=== PATIENT | female | born 1985 | race African-American/Black ===

== ENCOUNTER 2017-09-16 17:01 | Emergency (ER) | payer OTHER ==
--- NOTE | 2017-09-16 18:11 | EDPHYS ---
Physician Documentation [facility] Name: Nely Quinones Age: 32 yrs Sex: Female : 1985 Arrival Date: 09/16/2017 Time: 17:03 Bed 8 Private MD: ED Physician Oscar Shultz HPI: 09/16 18:03 This 32 yrs old Black Female presents to ER via Ambulatory with complaints of Flu toño Symptoms. 18:03 The patient or guardian reports cough, flu symptoms. Onset: The symptoms/episode toño began/occurred 2 day(s) ago. Modifying factors: The symptoms are alleviated by nothing. the symptoms are aggravated by nothing. The patient or guardian reports hoarse voice. Severity of symptoms: At their worst the symptoms were mild, in the emergency department the symptoms are unchanged. Associated signs and symptoms: The patient has no apparent associated signs or symptoms. Severity of symptoms: At their worst the symptoms were mild in the emergency department the symptoms are unchanged. 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 - Social history:: Smoking status: Patient/guardian denies using tobacco. - Family history:: not pertinent. ROS: 18:03 Constitutional: Negative for fever, chills, and weight loss, Eyes: Negative for injury, toño pain, redness, and discharge, ENT: Negative for injury, pain, and discharge, Neck: Negative for injury, pain, and swelling, Cardiovascular: Negative for chest pain, palpitations, and edema, Abdomen/GI: Negative for abdominal pain, nausea, vomiting, diarrhea, and constipation, Back: Negative for injury and pain, : Negative for injury, bleeding, discharge, and swelling, MS/Extremity: Negative for injury and deformity, Skin: Negative for injury, rash, and discoloration, Neuro: Negative for headache, weakness, numbness, tingling, and seizure, Psych: Negative for depression, anxiety, suicide ideation, homicidal ideation, and hallucinations, Allergy/Immunology: Negative for hives, rash, and allergies, Endocrine: Negative for neck swelling, polydipsia, polyuria, polyphagia, and marked weight changes, Hematologic/Lymphatic: Negative for swollen nodes, abnormal bleeding, and unusual bruising. 18:03 Respiratory: Positive for cough, with green sputum. Exam: 18:03 Constitutional: This is a well developed, well nourished patient who is awake, alert, toño and in no acute distress. Head/Face: Normocephalic, atraumatic. Eyes: Pupils equal round and reactive to light, extra-ocular motions intact. Lids and lashes normal. Conjunctiva and sclera are non-icteric and not injected. Cornea within normal limits. Periorbital areas with no swelling, redness, or edema. ENT: Nares patent. No nasal discharge, no septal abnormalities noted. Tympanic membranes are normal and external auditory canals are clear. Oropharynx with no redness, swelling, or masses, exudates, or evidence of obstruction, uvula midline. Mucous membranes moist. Neck: Trachea midline, no thyromegaly or masses palpated, and no cervical lymphadenopathy. Supple, full range of motion without nuchal rigidity, or vertebral point tenderness. No Meningismus. Chest/axilla: Normal chest wall appearance and motion. Nontender with no deformity. No lesions are appreciated. Cardiovascular: Regular rate and rhythm with a normal S1 and S2. No gallops, murmurs, or rubs. Normal PMI, no JVD. No pulse deficits. Abdomen/GI: Soft, non-tender, with normal bowel sounds. No distension or tympany. No guarding or rebound. No evidence of tenderness throughout. Back: No spinal tenderness. No costovertebral tenderness. Full range of motion. Skin: Warm, dry with normal turgor. Normal color with no rashes, no lesions, and no evidence of cellulitis. MS/ Extremity: Pulses equal, no cyanosis. Neurovascular intact. Full, normal range of motion. Neuro: Awake and alert, GCS 15, oriented to person, place, time, and situation. Cranial nerves II-XII grossly intact. Motor strength 5/5 in all extremities. Sensory grossly intact. Cerebellar exam normal. Normal gait. Psych: Awake, alert, with orientation to person, place and time. Behavior, mood, and affect are within normal limits. 18:03 Respiratory: mild respiratory distress is noted, Respirations: normal, Breath sounds: rhonchi, Respiratory rate: 19 Vital Signs: 17:10 BP 152 / 110; Pulse 85; Resp 19; Temp 98.6(TE); Pulse Ox 100% on R/A; Weight 90.72 kg; la1 Height 5 ft. 2 in. (157.48 cm); 18:43 BP 147 / 104; Pulse 87; Resp 18; Temp 98.0; Pulse Ox 99% on R/A; ph 17:10 Body Mass Index 36.58 (90.72 kg, 157.48 cm) la MDM: 17:57 Patient medically screened. [facility] 18:03 Data reviewed: vital signs, nurses notes, lab test result(s), radiologic studies. [facility] 09/16 17:11 Order name: Strep; Complete Time: 18:07 [facility] 09/16 17:11 Order name: Flu; Complete Time: 18:07 [facility] 09/16 17:46 Order name: Throat Culture EDMS Administered Medications: 18:00 Drug: Rocephin (cefTRIAXone) 1 grams Route: IM; Site: right gluteus; ph 18:45 Follow up: Response: No adverse reaction ph 18:30 Drug: Zithromax 500 mg Route: PO; ph 19:00 Follow up: Response: No adverse reaction ph Disposition: 09/16/17 18:10 Discharged to Home. Impression: Bronchitis, not specified as acute or chronic, Cough. - Condition is Stable. - Discharge Instructions: Acute Bronchitis, Upper Respiratory Infection, Adult, Cool Mist Vaporizers, Cough, Adult, [id number], Cough, Adult. - Prescriptions for Cheratussin AC 10- 100 mg/5 mL Oral liquid - take 10 milliliter by ORAL route every 4 hours; 120 milliliter. Zithromax Z- Antonio 250 mg Oral Tablet - take 1 tablet by ORAL route as directed for 5 days Day 1 - take two (2) tablets one time. Day 2, 3, 4 , 5 take one (1) tablet once daily.; 6 tablet. - Medication Reconciliation Form, Thank You Letter, Antibiotic Education, Prescription Opioid Use form. - Follow up: Private Physician; When: 2 - 3 days; Reason: Recheck today's complaints, Continuance of care, Re-evaluation by your physician. - Problem is new. - Symptoms have improved. Signatures: Dispatcher [employer] EDMS Oscar Shultz MD MD cha Attema, Lee, RN RN la1 Matilda Silverio RN RN ph
--- NOTE | 2017-09-16 18:11 | ER ---
Nurse's Notes [facility] Name: Nely Quinones Age: 32 yrs Sex: Female : 1985 Arrival Date: 09/16/2017 Time: 17:03 Bed 8 Private MD: Diagnosis: Bronchitis, not specified as acute or chronic;Cough Presentation: 09/16 17:09 Presenting complaint: Patient states: I am 20 weeks and for the last 3 days I la1 have had congestion and diarrhea. I have a sore throat and my kids have been sick with the flu. Transition of care: patient was not received from another setting of care. Onset of symptoms was September 16, 2017. Care prior to arrival: None. 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 - Social history:: Smoking status: Patient/guardian denies using tobacco. - Family history:: not pertinent. Screenin:38 Abuse screen: Denies threats or abuse. Denies injuries from another. Nutritional ph screening: No deficits noted. Tuberculosis screening: No symptoms or risk factors identified. Fall Risk None identified. Assessment: 18:00 General: Appears in no apparent distress. uncomfortable, ill, Behavior is calm, ph cooperative, appropriate for age, Reports chills for feeling ill for 12-24 hours. Pain: Complains of pain in "all over". Neuro: Level of Consciousness is awake, alert, obeys commands, Oriented to person, place, time, situation. Cardiovascular: Capillary refill < 3 seconds Patient's skin is warm and dry. Respiratory: Reports cough that is Airway is patent Respiratory effort is even, unlabored, Breath sounds are clear bilaterally. Denies shortness of breath. GI: Reports diarrhea, Patient currently denies abdominal pain, nausea, vomiting. EENT: Reports nasal congestion nasal discharge pain when swallowing. Derm: Skin is intact, is healthy with good turgor, Skin is dry, Skin is normal, Skin temperature is warm. Musculoskeletal: Circulation, motion, and sensation intact. Range of motion: intact in all extremities. Vital Signs: 17:10 BP 152 / 110; Pulse 85; Resp 19; Temp 98.6(TE); Pulse Ox 100% on R/A; Weight 90.72 kg; la1 Height 5 ft. 2 in. (157.48 cm); 18:43 BP 147 / 104; Pulse 87; Resp 18; Temp 98.0; Pulse Ox 99% on R/A; ph 17:10 Body Mass Index 36.58 (90.72 kg, 157.48 cm) la1 ED Course: 17:03 Patient arrived in ED. as 17:10 Triage completed. la1 17:11 Arm band placed on left wrist. la1 17:57 Oscar Shultz MD is Attending Physician. toño 18:14 Matilda Silverio, RN is Primary Nurse. ph 18:42 Patient has correct armband on for positive identification. Bed in low position. Call ph light in reach. Side rails up X 1. Pulse ox on. NIBP on. Warm blanket given. 18:43 No provider procedures requiring assistance completed. Patient did not have IV access ph during this emergency room visit. Administered Medications: 18:00 Drug: Rocephin (cefTRIAXone) 1 grams Route: IM; Site: right gluteus; ph 18:45 Follow up: Response: No adverse reaction ph 18:30 Drug: Zithromax 500 mg Route: PO; ph 19:00 Follow up: Response: No adverse reaction ph Outcome: 18:10 Discharge ordered by . toño 19:04 Patient left the ED. ph 19:04 Discharged to home ambulatory. ph 19:04 Condition: good 19:04 Discharge instructions given to patient, Instructed on discharge instructions, follow up and referral plans. medication usage, Demonstrated understanding of instructions, follow-up care, medications, Prescriptions given X 2. Signatures: Oscar Shultz MD MD cha Martinez, Amelia as Attema, Lee, RN RN la1 Matilda Silverio, CHELA RN ph
[2017-09-16] MEDS ORDERED: AZITHROMYCIN 250 MG TAB ONE (18:47)
[2017-09-16] MEDS ORDERED: LIDOCAINE 1% MPF 5 ML VIAL ONE (18:47)
[2017-09-16] MEDS ORDERED: CEFTRIAXONE 1000 MG/VIAL ONE (18:47)
[2017-09-16 19:16] VITALS: BP 147/104; TEMP 98; O2SAT 99
== END 2017-09-16 19:04 | disposition home or self-care (01) ==
LOC: ER 17:01
DX: J40 Bronchitis, not specified as acute or chronic (principal); I10 Essential (primary) hypertension
CPT/HCPCS: 87070; 87081; 87804; 96372; 99283

== ENCOUNTER 2018-03-27 11:31 | Emergency (ER) | payer OTHER ==
[2018-03-27] MEDS ORDERED: MEPERIDINE HCL 50 MG/ML AMP ONE (12:18)
[2018-03-27] MEDS ORDERED: ONDANSETRON 4 MG/2 ML VIAL ONE (12:18)
[2018-03-27 13:14] LABS: Absolute Lymphocytes (CBC) 2.1 K/uL (0.7-4.9); Absolute Monocytes 0.5 K/uL (0.1-1.3); Absolute Neutrophil 5.3 K/uL (1.8-8.0); Basophils % 0.9 % (0-1.3); Eosinophils % 3.7 % (0-4.4); Hematocrit 42.4 % (36.0-45.0); Lymphocytes % 25.5 % (15.3-44.8); MCV 87.3 fL (80-100); MPV 8.5 fL (7.6-11.3); Monocytes % 6.2 % (3.3-12.3); RBC Red Blood Cell Count 4.86 M/uL (3.86-4.86)
[2018-03-27 13:16] LABS: Potassium 3.5 mmol/L (3.5-5.1)
[2018-03-27 13:52] LABS: Urine Blood NEGATIVE (NEG); Urine Glucose NEGATIVE (NEG); Urine Protein 2+ (NEG); Urine Specific Gravity >1.030 (1.005-1.030); Urine pH 5.5 (5.0-7.0)
[2018-03-27 13:55] LABS: ALT/SGPT 28 U/L (12-78); AST/SGOT 18 U/L (15-37); Albumin 4.1 g/dL (3.4-5.0); Alkaline Phosphatase 103 U/L (45-117); BUN Blood Urea Nitrogen 13 mg/dL (7-18); Bicarbonate 23 mmol/L (21-32); Bilirubin Direct 0.1 mg/dL (0-0.2); Bilirubin Total 0.3 mg/dL (0.2-1.0); Glucose Level 92 mg/dL (74-106); Potassium 3.5 mmol/L (3.5-5.1); Protein, Total 8.2 g/dL (6.4-8.2); Sodium Level 140 mmol/L (136-145)
[2018-03-27] MEDS ORDERED: MEPERIDINE HCL 25 MG/0.5 ML ONE (14:08)
[2018-03-27] MEDS ORDERED: NA CHLORIDE 0.9% 1,000 ML ONE (14:08)
[2018-03-27] MEDS ORDERED: BUPIVACAINE 0.5% PF 10 ML VIAL ONE (16:23)
[2018-03-27] MEDS ORDERED: LABETALOL 20 MG/4ML SYRINGE IV ONE (16:23)
--- NOTE | 2018-03-27 16:53 | ER ---
Nurse's Notes [facility] Name: Nely Quinones Age: 32 yrs Sex: Female : 1985 Arrival Date: 03/27/2018 Time: 11:34 Bed 20 Private MD: Diagnosis: Dental caries;Dentalgia;Pulpitis Presentation: 03/27 11:35 Presenting complaint: Patient states: lower tooth pain started today. Pt reports taking sv 2 BC powder and 4 adult ASA. Pt reports shaking and "feeling weird." c/o nausea. Transition of care: patient was not received from another setting of care. Onset of symptoms was March 27, 2018. Care prior to arrival: None. 11:35 Method Of Arrival: Ambulatory sv 11:35 Acuity: LORENA 3 sv 11:52 Risk Assessment: Do you want to hurt yourself or someone else? Patient reports no bp desire to harm self or others. Initial Sepsis Screen: Does the patient meet any 2 criteria? No. Patient's initial sepsis screen is negative. Does the patient have a suspected source of infection? No. Patient's initial sepsis screen is negative. Triage Assessment: 11:35 General: Appears in no apparent distress. uncomfortable, Behavior is cooperative, sv crying. Pain: Complains of pain in right lower tooth Pain currently is 10 out of 10 on a pain scale. Pain began today Is continuous. Neuro: Level of Consciousness is awake, alert, obeys commands, Oriented to person, place, time, situation, Moves all extremities. Gait is steady. Respiratory: Respiratory effort is even, unlabored, Respiratory pattern is regular, symmetrical. 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 - Social history:: Smoking status: Patient uses tobacco products, denies chronic smoking, but will smoke occasionally. - Ebola Screening: : No symptoms or risks identified at this time. Screenin:52 Abuse screen: Denies threats or abuse. Denies injuries from another. Nutritional bp screening: No deficits noted. Tuberculosis screening: No symptoms or risk factors identified. Fall Risk None identified. Assessment: 11:40 General: Appears distressed, uncomfortable, Behavior is appropriate for age, agitated, bp crying. Pain: Complains of pain in mouth. Neuro: Level of Consciousness is awake, alert, obeys commands, Oriented to person, place, time, situation, Appropriate for age. Cardiovascular: No deficits noted. Respiratory: Airway is patent Respiratory effort is even, unlabored, Respiratory pattern is regular, symmetrical. GI: No signs and/or symptoms were reported involving the gastrointestinal system. : No signs and/or symptoms were reported regarding the genitourinary system. EENT: No deficits noted. Derm: No deficits noted. Musculoskeletal: Circulation, motion, and sensation intact. Range of motion: intact in all extremities. 14:05 Reassessment: REPEAT LABS PENDING, PT REMAINS HYPERTENSIVE ON MONITOR. bp 15:19 Reassessment: REPEAT SALICYLATE SENT, RESULTS PENDING. bp 17:21 Reassessment: PT D/C HOME AMBULATORY, DX WITH DENTAL CARIES AND DENTALGIA. bp Vital Signs: 11:36 BP 219 / 142; Pulse 57; Resp 18; Temp 97.8; Pulse Ox 98% ; Pain 10/10; sv 13:00 BP 180 / 116; Pulse 49; Resp 20; Pulse Ox 100% on R/A; ph 13:54 BP 188 / 106; Pulse 55; Resp 14; Pulse Ox 100% ; bp 14:39 BP 183 / 149; Pulse 50; Resp 12; Pulse Ox 100% ; bp 17:22 BP 172 / 100; Pulse 50; Resp 14; Pulse Ox 100% ; bp ED Course: 11:34 Patient arrived in ED. as 11:36 Triage completed. sv 11:37 Arm band placed on. sv 11:44 Andreas Sanders PA is PHCP. jr8 11:44 Oscar Shultz MD is Attending Physician. jr8 11:52 Michele Yeager, CHELA is Primary Nurse. bp 11:52 Patient has correct armband on for positive identification. Bed in low position. Call bp light in reach. Side rails up X2. 12:18 Urine collected: clean catch specimen, alia colored. dh3 12:31 Inserted saline lock: 20 gauge in right antecubital area, using aseptic technique. bp Blood collected. 15:30 Repeat lab(s) drawn. by co, sent to lab. dh3 17:22 No provider procedures requiring assistance completed. IV discontinued, intact, bp bleeding controlled, No redness/swelling at site. Pressure dressing applied. Administered Medications: 12:15 Drug: Demerol 50 mg Route: IVP; Site: right antecubital; bp 13:36 Follow up: Response: Pain is decreased bp 12:15 Drug: Zofran 4 mg Route: IVP; Site: right antecubital; bp 13:35 Follow up: Response: Nausea is decreased bp 14:07 Drug: NS 0.9% 1000 ml Route: IV; Rate: 1 bolus; Site: right antecubital; bp 16:00 Follow up: IV Status: Completed infusion; IV Intake: 1000ml bp 14:08 Drug: Demerol 25 mg Route: IVP; Site: right antecubital; bp 15:00 Follow up: Response: Pain is decreased bp 16:19 Drug: Marcaine (0.5 %) 1 vials {Note: AT B/S FOR PROVIDER.} Volume: 10 ml; Route: bp Infiltration; 16:20 Drug: Labetalol 20 mg Route: IVP; Infused Over: 2 mins; Site: right antecubital; bp 17:20 Follow up: Response: No adverse reaction; Marked relief of symptoms bp Intake: 16:00 IV: 1000ml; Total: 1000ml. bp Outcome: 16:52 Discharge ordered by MD. saenz 17:22 Discharged to home ambulatory. bp 17:22 Condition: stable 17:22 Discharge instructions given to patient, Instructed on discharge instructions, follow up and referral plans. medication usage, Demonstrated understanding of instructions, follow-up care, medications, Prescriptions given X 2. 17:27 Patient left the ED. bp Signatures: Opal Watson RN RN sv Martinez, Amelia as Roszak, Josh, PA PA [facility] Matilda Silverio RN RN Maira Rader [facility] Michele Yeager, CHELA RN bp Corrections: (The following items were deleted from the chart) 11:37 11:35 Presenting complaint: Patient states: lower tooth pain started today. Pt reports sv taking 2 BC powder and 4 adult ASA. Pt reports shaking and "feeling weird." sv 11:37 11:36 Pulse 57bpm; Resp 18bpm; Pulse Ox 98%; Temp 97.8F; Pain 10/10; sv sv 15:46 15:30 Repeat lab(s) drawn. [place] [id number]
--- NOTE | 2018-03-27 16:53 | EDPHYS ---
Physician Documentation [facility] Name: Nely Quinones Age: 32 yrs Sex: Female : 1985 Arrival Date: 03/27/2018 Time: 11:34 Bed 20 Private MD: ED Physician Oscar Shultz HPI: 03/27 13:39 This 32 yrs old Black Female presents to ER via Ambulatory with complaints of Toothache.jr8 13:39 The patient presents with pain. The problem is located in the right jaw. Onset: The jr8 symptoms/episode began/occurred acutely, today. Duration: The symptoms are continuous. Modifying factors: The symptoms are alleviated by nothing, the symptoms are aggravated by air, chewing, talking. Associated signs and symptoms: The patient has no apparent associated signs or symptoms. Severity of symptoms: At their worst the symptoms were moderate, in the emergency department the symptoms are unchanged. The patient has not experienced similar symptoms in the past. The patient has not recently seen a physician. Stated that she took 4 aspirin and 4 BC powder packets to try and delmar the pain today but continues to have pain . 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 - Social history:: Smoking status: Patient uses tobacco products, denies chronic smoking, but will smoke occasionally. - Ebola Screening: : No symptoms or risks identified at this time. ROS: 13:39 Eyes: Negative for injury, pain, redness, and discharge, Neck: Negative for injury, jr8 pain, and swelling, Cardiovascular: Negative for chest pain, palpitations, and edema, Respiratory: Negative for shortness of breath, cough, wheezing, and pleuritic chest pain, Abdomen/GI: Negative for abdominal pain, nausea, vomiting, diarrhea, and constipation, Back: Negative for injury and pain, MS/Extremity: Negative for injury and deformity, Skin: Negative for injury, rash, and discoloration, Neuro: Negative for headache, weakness, numbness, tingling, and seizure. 13:39 ENT: Positive for dental pain, Gum pain Exam: 13:39 Eyes: Pupils equal round and reactive to light, extra-ocular motions intact. Lids and jr8 lashes normal. Conjunctiva and sclera are non-icteric and not injected. Cornea within normal limits. Periorbital areas with no swelling, redness, or edema. Neck: Trachea midline, no thyromegaly or masses palpated, and no cervical lymphadenopathy. Supple, full range of motion without nuchal rigidity, or vertebral point tenderness. No Meningismus. Cardiovascular: Regular rate and rhythm with a normal S1 and S2. No gallops, murmurs, or rubs. Normal PMI, no JVD. No pulse deficits. Respiratory: Lungs have equal breath sounds bilaterally, clear to auscultation and percussion. No rales, rhonchi or wheezes noted. No increased work of breathing, no retractions or nasal flaring. Abdomen/GI: Soft, non-tender, with normal bowel sounds. No distension or tympany. No guarding or rebound. No evidence of tenderness throughout. Back: No spinal tenderness. No costovertebral tenderness. Full range of motion. Skin: Warm, dry with normal turgor. Normal color with no rashes, no lesions, and no evidence of cellulitis. MS/ Extremity: Pulses equal, no cyanosis. Neurovascular intact. Full, normal range of motion. Neuro: Awake and alert, GCS 15, oriented to person, place, time, and situation. Cranial nerves II-XII grossly intact. Motor strength 5/5 in all extremities. Sensory grossly intact. Cerebellar exam normal. Normal gait. 13:39 Head/face: Noted is swelling, that is mild, of the right jaw. 13:39 ENT: Exam is negative for earache, ear discharge, TM abnormalities, nasal discharge, sinus tenderness, enlarged tonsils, exudate, Dental exam: dental caries, that is moderate, specifically in the upper right second molar (#2), upper right first molar (#3), lower right first molar (#30) and lower right second molar (#31). Vital Signs: 11:36 BP 219 / 142; Pulse 57; Resp 18; Temp 97.8; Pulse Ox 98% ; Pain 10/10; sv 13:00 BP 180 / 116; Pulse 49; Resp 20; Pulse Ox 100% on R/A; ph 13:54 BP 188 / 106; Pulse 55; Resp 14; Pulse Ox 100% ; bp 14:39 BP 183 / 149; Pulse 50; Resp 12; Pulse Ox 100% ; bp 17:22 BP 172 / 100; Pulse 50; Resp 14; Pulse Ox 100% ; bp MDM: 11:45 Patient medically screened. 8 16:50 Data reviewed: vital signs, nurses notes, lab test result(s), and as a result, I will jr8 discharge patient. Data interpreted: Pulse oximetry: on room air is 100 %. Interpretation: normal. Counseling: I had a detailed discussion with the patient and/or guardian regarding: the historical points, exam findings, and any diagnostic results supporting the discharge/admit diagnosis, lab results, the need for outpatient follow up, a dentist, to return to the emergency department if symptoms worsen or persist or if there are any questions or concerns that arise at home. ED course: ASA level decreased. Feeling better. Pain much less. Patient needs to f/u with dentist. Counseled her on NSAID based products and over use of them. 03/27 12:06 Order name: Hepatic Function; Complete Time: 14:01 [facility] 03/27 12:06 Order name: Acetaminophen; Complete Time: 14:01 [facility] 03/27 12:06 Order name: Basic Metabolic Panel; Complete Time: 14: [facility] 03/27 12:20 Order name: Urine Dipstick--Ancillary (enter results); Complete Time: 14:01 03/27 12:20 Order name: Urine --Ancillary (enter results); Complete Time: 14:01 03/27 12:50 Order name: Basic Metabolic Panel; Complete Time: 13:22 [facility] 03/27 12:50 Order name: Salicylates Level; Complete Time: 13:22 [facility] 03/27 12:50 Order name: CBC with Automated Diff; Complete Time: 13:22 [facility] 03/27 15:09 Order name: Asprin; Complete Time: 16:21 [facility] 03/27 12:06 Order name: IV Saline Lock; Complete Time: 12:31 [facility] 03/27 12:06 Order name: Labs collected and sent; Complete Time: 12:31 [facility] 03/27 12:06 Order name: Urine Dipstick-Ancillary (obtain specimen); Complete Time: 12:18 [facility] 03/27 12:07 Order name: Urine Test (obtain specimen); Complete Time: 12:18 bp Administered Medications: 12:15 Drug: Demerol 50 mg Route: IVP; Site: right antecubital; bp 13:36 Follow up: Response: Pain is decreased bp 12:15 Drug: Zofran 4 mg Route: IVP; Site: right antecubital; bp 13:35 Follow up: Response: Nausea is decreased bp 14:07 Drug: NS 0.9% 1000 ml Route: IV; Rate: 1 bolus; Site: right antecubital; bp 16:00 Follow up: IV Status: Completed infusion; IV Intake: 1000ml bp 14:08 Drug: Demerol 25 mg Route: IVP; Site: right antecubital; bp 15:00 Follow up: Response: Pain is decreased bp 16:19 Drug: Marcaine (0.5 %) 1 vials {Note: AT B/S FOR PROVIDER.} Volume: 10 ml; Route: bp Infiltration; 16:20 Drug: Labetalol 20 mg Route: IVP; Infused Over: 2 mins; Site: right antecubital; bp 17:20 Follow up: Response: No adverse reaction; Marked relief of symptoms bp Disposition: 03/27/18 16:52 Discharged to Home. Impression: Dental caries, Dentalgia, Pulpitis. - Condition is Stable. - Discharge Instructions: Dental Pain. - Prescriptions for Amoxicillin 875 mg Oral Tablet - take 1 tablet by ORAL route every 12 hours for 10 days; 20 tablet. Tramadol 50 mg Oral Tablet - take 2 tablet by ORAL route every 8 hours as needed; 20 tablet. - Medication Reconciliation Form, Thank You Letter, Antibiotic Education, Prescription Opioid Use form. - Follow up: Private Physician; When: 2 - 3 days; Reason: Recheck today's complaints, Continuance of care, Re-evaluation by your physician. - Problem is new. - Symptoms have improved. Addendum: 03/28/2018 17:47 Co-signature as Attending Physician, Oscar Shultz MD I agree with the assessment and c sunshine plan of care. Signatures: Dispatcher [employer] Opal Goncalves, CHELA RN Oscar Roberto MD MD cha Roszak, Josh, PA PA jr8 Michele Yeager RN RN bp Corrections: (The following items were deleted from the chart) 03/27 13:38 12:50 Hepatitis Panel,Acute ordered. [facility] 13:40 13:39 Stated that she took 4 aspirin and 4 BC powder packets to try and delmar the pain. jr8 jr8 13:59 13:19 SALICYLATE+C.LAB.BRZ ordered. EDMS EDMS 14:00 13:19 CBC+H.LAB.BRZ ordered. EDMS EDMS 17:27 16:52 03/27/2018 16:52 Discharged to Home. Impression: Dental caries; Dentalgia; bp Pulpitis. Condition is Stable. Forms are Medication Reconciliation Form, Thank You Letter, Antibiotic Education, Prescription Opioid Use. Follow up: Private Physician; When: 2 - 3 days; Reason: Recheck today's complaints, Continuance of care, Re-evaluation by your physician. Problem is new. Symptoms have improved. jr8
[2018-03-28 14:53] VITALS: BP 172/100; TEMP 97.8; O2SAT 100
== END 2018-03-27 17:27 | disposition home or self-care (01) ==
LOC: ER 11:31
DX: K02.9 Dental caries, unspecified (principal); K04.01 Reversible pulpitis; K08.89 Other specified disorders of teeth and supporting structures; I10 Essential (primary) hypertension; Z72.0 Tobacco use
CPT/HCPCS: 36415; 80048; 80076; 80329; 81003; 81025; 85025; 96361; 96374; 96375; 99284; J2175; J2405; J7030

== ENCOUNTER 2018-05-22 08:28 | Emergency (ER) | payer OTHER, SELFPAY ==
[2018-05-22] MEDS ORDERED: IBUPROFEN 400 MG TAB ONE (08:58)
[2018-05-22] MEDS ORDERED: HYDROCODONE/APAP 5/325 MG TAB ONE (09:43)
--- NOTE | 2018-05-22 11:10 | ER ---
Nurse's Notes [facility] Name: Nely Quinones Age: 33 yrs Sex: Female : 1985 Arrival Date: 05/22/2018 Time: 08:31 Bed 15 Private MD: None, None Diagnosis: Acute upper respiratory infection, unspecified Presentation: 05/22 08:32 Presenting complaint: Patient states: my whole body is in pain and it started few days hj ago, bad cough, nasal congestion; reports fever and chills; reports sore throat;. Transition of care: patient was not received from another setting of care. Onset of symptoms was May 22, 2018. Risk Assessment: Do you want to hurt yourself or someone else? Patient reports no desire to harm self or others. Initial Sepsis Screen: Does the patient meet any 2 criteria? No. Patient's initial sepsis screen is negative. Does the patient have a suspected source of infection? No. Patient's initial sepsis screen is negative. Care prior to arrival: None. 08:32 Method Of Arrival: Ambulatory 08:32 Acuity: LROENA 4 hj Triage Assessment: 08:34 General: Appears in no apparent distress. uncomfortable, Behavior is calm, cooperative, hj appropriate for age. Pain: Complains of pain in body. 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 - Social history:: Smoking status: Patient/guardian denies using tobacco, Patient/guardian denies using alcohol. - Ebola Screening: : Patient negative for fever greater than or equal to 101.5 degrees Fahrenheit, and additional compatible Ebola Virus Disease symptoms Patient denies exposure to infectious person Patient denies travel to an Ebola-affected area in the 21 days before illness onset. Screenin:34 Abuse screen: Denies threats or abuse. Denies injuries from another. Nutritional hj screening: No deficits noted. Tuberculosis screening: No symptoms or risk factors identified. Fall Risk None identified. Assessment: 08:51 General: Appears in no apparent distress. uncomfortable, Behavior is calm, cooperative, ph appropriate for age, Reports chills for fever for 1-2 days. Pain: Complains of pain in "all over". Neuro: Level of Consciousness is awake, alert, obeys commands, Oriented to person, place, time, situation. Cardiovascular: Capillary refill < 3 seconds in bilateral fingers Patient's skin is warm and dry. Respiratory: Reports cough that is Airway is patent Respiratory effort is even, unlabored, Respiratory pattern is regular, symmetrical. GI: No signs and/or symptoms were reported involving the gastrointestinal system. EENT: Reports pain when swallowing. Derm: Skin is intact, is healthy with good turgor, Skin is pink, warm \\T\\ dry. 09:42 Reassessment: Patient appears in no apparent distress at this time. Patient and/or ph family updated on plan of care and expected duration. Pain level reassessed. Patient is alert, oriented x 3, equal unlabored respirations, skin warm/dry/pink. Pt crying, states, " I am just hurting so bad, I couldn't even wipe when I went to the restroom. Do you could get anything else for pain?" ERP notified, see MAR. 10:28 Reassessment: Patient appears in no apparent distress at this time. Patient and/or ph family updated on plan of care and expected duration. Pain level reassessed. Patient is alert, oriented x 3, equal unlabored respirations, skin warm/dry/pink. Pt resting quietly, awaiting results of mono screen. 11:31 Reassessment: Patient appears in no apparent distress at this time. Patient and/or ph family updated on plan of care and expected duration. Pain level reassessed. Patient is alert, oriented x 3, equal unlabored respirations, skin warm/dry/pink. Pt reports that pain has improved to 4/10 after additional pain medication, d/c home w/ work note. Vital Signs: 08:35 BP 158 / 100; Pulse 87; Resp 18; Temp 100.1(TE); Pulse Ox 100% on R/A; Weight 68.04 kg; hj Height 5 ft. 2 in. (157.48 cm); Pain 10/10; 09:47 BP 167 / 104; Pulse 92; Resp 18; Pulse Ox 99% on R/A; ph 11:32 BP 154 / 91; Pulse 84; Resp 18; Temp 98.4; Pulse Ox 99% on R/A; Pain 4/10; ph 08:35 Body Mass Index 27.44 (68.04 kg, 157.48 cm) ED Course: 08:31 Patient arrived in ED. sb2 08:31 None, None is Private Physician. sb2 08:31 [facility]ov[facility] Paulino [facility]-C [facility]. kb 08:31 Serge Neil MD is Attending Physician. kb 08:33 Triage completed. hj 08:35 Arm band placed on left wrist. hj 08:35 Patient has correct armband on for positive identification. Bed in low position. Call light in reach. Side rails up X 1. 08:41 Matilda Silverio, RN is Primary Nurse. ph 08:53 No provider procedures requiring assistance completed. ph 09:20 mono test drawn by me by venipuncture 23G to right ac and sent to lab. 3 11:33 Patient did not have IV access during this emergency room visit. ph Administered Medications: 08:51 Drug: Ibuprofen 800 mg Route: PO; ph 10:05 Follow up: Response: No adverse reaction ph 09:37 Drug: [place] 5 mg-325 mg 1 tabs Route: PO; ph 10:28 Follow up: Response: No adverse reaction ph Outcome: 11:10 Discharge ordered by MD. kb 11:32 Discharged to home ambulatory. ph 11:32 Condition: good 11:32 Discharge instructions given to patient, Instructed on discharge instructions, follow up and referral plans. Demonstrated understanding of instructions, follow-up care. 11:33 Patient left the ED. ph Signatures: Jovanna Paulino FNP-C FNP-CkMatilda Miranda, RN RN Jacek Braun RN RN Maira Rader 3 Claire Billings sb2 Corrections: (The following items were deleted from the chart) 08:33 08:32 Presenting complaint: Patient states: my whole body is in pain and it started few hj days ago, bad cough, nasal congestion; reports fever and chills; hj 08:39 08:35 Pulse 87bpm; Resp 18bpm; Pulse Ox 100% RA; Temp 100.1F Temporal; 68.04 kg; Height hj 5 ft. 2 in.; BMI: 27.4; Pain 10; hj
--- NOTE | 2018-05-22 11:10 | EDPHYS ---
Physician Documentation [facility] Name: Nely Quinones Age: 33 yrs Sex: Female : 1985 Arrival Date: 05/22/2018 Time: 08:31 Bed 15 Private MD: None, None ED Physician Serge Neil HPI: 05/22 08:49 This 33 yrs old Black Female presents to ER via Ambulatory with complaints of Flu kb Symptoms. 08:49 The patient or guardian reports cough, that is intermittent, described as moderate, kb with no sputum, flu symptoms, arthralgias, low-grade fever, myalgias, no appetite. Onset: The symptoms/episode began/occurred 3 day(s) ago. Severity of symptoms: At their worst the symptoms were moderate, in the emergency department the symptoms are unchanged. Modifying factors: The symptoms are alleviated by nothing, the symptoms are aggravated by nothing. Associated signs and symptoms: Pertinent positives: sore throat, Pertinent negatives: chest pain, diarrhea, ear ache, fever, nausea, rhinorrhea, vomiting. The patient has not experienced similar symptoms in the past. The patient has not recently seen a physician. Pt reports body aches, cough, chills, sore throat, malaise since "the weather changed." . 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 - Social history:: Smoking status: Patient/guardian denies using tobacco, Patient/guardian denies using alcohol. - Ebola Screening: : Patient negative for fever greater than or equal to 101.5 degrees Fahrenheit, and additional compatible Ebola Virus Disease symptoms Patient denies exposure to infectious person Patient denies travel to an Ebola-affected area in the 21 days before illness onset. ROS: 08:50 Neck: Negative for injury, pain, and swelling, Cardiovascular: Negative for chest pain, kb palpitations, and edema, Abdomen/GI: Negative for abdominal pain, nausea, vomiting, diarrhea, and constipation, Back: Negative for injury and pain, : Negative for injury, bleeding, discharge, and swelling, MS/Extremity: Negative for injury and deformity, Skin: Negative for injury, rash, and discoloration, Neuro: Negative for headache, weakness, numbness, tingling, and seizure. 08:50 Constitutional: Positive for body aches, chills, fatigue, fever, malaise, Negative for poor PO intake, weight loss. 08:50 ENT: Positive for sore throat. 08:50 Respiratory: Positive for cough, Negative for dyspnea on exertion, hemoptysis, orthopnea, pleurisy, shortness of breath, sputum production, wheezing. Exam: 08:50 Constitutional: This is a well developed, well nourished patient who is awake, alert, kb and in no acute distress. Head/Face: Normocephalic, atraumatic. Neck: Trachea midline, no thyromegaly or masses palpated, and no cervical lymphadenopathy. Supple, full range of motion without nuchal rigidity, or vertebral point tenderness. No Meningismus. Chest/axilla: Normal chest wall appearance and motion. Nontender with no deformity. No lesions are appreciated. Cardiovascular: Regular rate and rhythm with a normal S1 and S2. No gallops, murmurs, or rubs. Normal PMI, no JVD. No pulse deficits. Respiratory: Lungs have equal breath sounds bilaterally, clear to auscultation and percussion. No rales, rhonchi or wheezes noted. No increased work of breathing, no retractions or nasal flaring. Abdomen/GI: Soft, non-tender, with normal bowel sounds. No distension or tympany. No guarding or rebound. No evidence of tenderness throughout. Back: No spinal tenderness. No costovertebral tenderness. Full range of motion. Skin: Warm, dry with normal turgor. Normal color with no rashes, no lesions, and no evidence of cellulitis. MS/ Extremity: Pulses equal, no cyanosis. Neurovascular intact. Full, normal range of motion. Neuro: Awake and alert, GCS 15, oriented to person, place, time, and situation. Cranial nerves II-XII grossly intact. Motor strength 5/5 in all extremities. Sensory grossly intact. Cerebellar exam normal. Normal gait. 08:50 ENT: Posterior pharynx: Airway: normal, no evidence of obstruction, Tonsils: bilaterally enlarged, with erythema, Uvula: normal, midline, swelling, that is mild, that is moderate, erythema, that is moderate. Vital Signs: 08:35 BP 158 / 100; Pulse 87; Resp 18; Temp 100.1(TE); Pulse Ox 100% on R/A; Weight 68.04 kg; hj Height 5 ft. 2 in. (157.48 cm); Pain 10/10; 09:47 BP 167 / 104; Pulse 92; Resp 18; Pulse Ox 99% on R/A; ph 11:32 BP 154 / 91; Pulse 84; Resp 18; Temp 98.4; Pulse Ox 99% on R/A; Pain 4/10; ph 08:35 Body Mass Index 27.44 (68.04 kg, 157.48 cm) hj MDM: 08:38 Patient medically screened. kb 10:06 Data reviewed: vital signs, nurses notes. Data interpreted: Pulse oximetry: on room air kb is 99 %. Interpretation: normal. 11:10 Counseling: I had a detailed discussion with the patient and/or guardian regarding: the kb historical points, exam findings, and any diagnostic results supporting the discharge/admit diagnosis, lab results, the need for outpatient follow up, a family practitioner, to return to the emergency department if symptoms worsen or persist or if there are any questions or concerns that arise at home. 05/22 08:37 Order name: Flu; Complete Time: 09:07 hj 05/22 08:37 Order name: Strep; Complete Time: 09:06 05/22 09:07 Order name: [place] Screen Profile; Complete Time: 11:09 kb 05/22 09:09 Order name: Throat Culture EDAZ 05/22 09:43 Order name: Urine Dipstick--Ancillary (enter results) 05/22 09:43 Order name: Urine --Ancillary (enter results) 05/22 09:07 Order name: Urine Dipstick-Ancillary (obtain specimen); Complete Time: 09:36 kb Administered Medications: 08:51 Drug: Ibuprofen 800 mg Route: PO; ph 10:05 Follow up: Response: No adverse reaction ph 09:37 Drug: [place] 5 mg-325 mg 1 tabs Route: PO; ph 10:28 Follow up: Response: No adverse reaction ph Disposition: 16:58 Co-signature as Attending Physician, Serge Neil MD. rn Disposition: 05/22/18 11:10 Discharged to Home. Impression: Acute upper respiratory infection, unspecified. - Condition is Stable. - Discharge Instructions: Upper Respiratory Infection, Adult, [id number]. - Medication Reconciliation Form, Thank You Letter, Antibiotic Education, Prescription Opioid Use, Work release form form. - Follow up: Emergency Department; When: As needed; Reason: Worsening of condition. Follow up: Private Physician; When: 2 - 3 days; Reason: Recheck today's complaints, Continuance of care, Re-evaluation by your physician. Signatures: Dispatcher [employer] EDMS Jovanna Paulino, TECHNICAL SALES ADVISOR-C TECHNICAL SALES ADVISOR-Ckb Serge Neil MD MD rn Hall, Patricia, RN RN Jacek Donovan RN RN Corrections: (The following items were deleted from the chart) 11:33 11:10 05/22/2018 11:10 Discharged to Home. Impression: Acute upper respiratory ph infection, unspecified. Condition is Stable. Forms are Medication Reconciliation Form, Thank You Letter, Antibiotic Education, Prescription Opioid Use. Follow up: Emergency Department; When: As needed; Reason: Worsening of condition. Follow up: Private Physician; When: 2 - 3 days; Reason: Recheck today's complaints, Continuance of care, Re-evaluation by your physician. kb
[2018-05-22 11:44] VITALS: O2SAT 99
[2018-05-22 11:46] VITALS: BP 154/91; TEMP 98.4
[2018-05-22 17:13] LABS: Urine Blood NEGATIVE (NEG); Urine Glucose NEGATIVE (NEG); Urine Protein NEGATIVE (NEG); Urine Specific Gravity 1.015 (1.005-1.030)
== END 2018-05-22 11:33 | disposition home or self-care (01) ==
LOC: ER 08:28
DX: J06.9 Acute upper respiratory infection, unspecified (principal); I10 Essential (primary) hypertension
CPT/HCPCS: 36415; 81003; 81025; 86308; 87070; 87081; 87804; 99283

== ENCOUNTER 2019-05-08 09:41 | Emergency (ER) | payer SELFPAY ==
[2019-05-08] MEDS ORDERED: DIPHENHYDRAMINE 50 MG/ML VIAL ONE (11:05)
[2019-05-08] MEDS ORDERED: METOCLOPRAMIDE 10 MG/2mL INJ ONE (11:05)
[2019-05-08] MEDS ORDERED: LABETALOL 20 MG/4ML SYRINGE IV ONE ×2 (11:06→12:08)
[2019-05-08] MEDS ORDERED: NA CHLORIDE 0.9% 100 ML IV ONE (11:06)
--- NOTE | 2019-05-08 13:13 | EDPHYS ---
Physician Documentation [facility] Name: Nely Quinones Age: 34 yrs Sex: Female : 1985 Arrival Date: 05/08/2019 Time: 09:44 Bed 17 Private MD: ED Physician Pee Harvey HPI: 05/08 10:37 This 34 yrs old Black Female presents to ER via Ambulatory with complaints of Cough, jr8 Headache, Pain All Over. 10:37 The patient or guardian reports cough, that is intermittent, described as mild. Onset: jr8 The symptoms/episode began/occurred acutely, yesterday. Severity of symptoms: At their worst the symptoms were moderate, in the emergency department the symptoms are unchanged. Modifying factors: The symptoms are alleviated by nothing, the symptoms are aggravated by nothing. Associated signs and symptoms: Pertinent positives: earache, rhinorrhea, sinus congestion . The patient has not experienced similar symptoms in the past. The patient has not recently seen a physician. Patient stated that she has been dealing with intermittent headaches for the past few months. Has been out of her BP meds and has not been able to f/u with anyone. Stated that a couple of days ago started to have sinus congestion, cough, earache, flu like symptoms . Historical: - Allergies: 09:56 No Known Allergies; la1 - PMHx: 09:56 Hypertension; la1 - Immunization history:: Adult Immunizations up to date. - Social history:: Smoking status: Patient/guardian denies using tobacco. - Ebola Screening: : No symptoms or risks identified at this time. ROS: 10:37 Eyes: Negative for injury, pain, redness, and discharge, Neck: Negative for injury, jr8 pain, and swelling, Cardiovascular: Negative for chest pain, palpitations, and edema, Abdomen/GI: Negative for abdominal pain, nausea, vomiting, diarrhea, and constipation, Back: Negative for injury and pain, MS/Extremity: Negative for injury and deformity, Skin: Negative for injury, rash, and discoloration. 10:37 ENT: Positive for ear pain, rhinorrhea, sinus congestion, sinus pain. 10:37 Respiratory: Positive for cough, shortness of breath. 10:37 Neuro: Positive for headache, Negative for altered mental status, dizziness, gait disturbance, hearing loss, loss of consciousness, numbness, seizure activity, speech changes, syncope, near syncope, tingling, tinnitus, tremor, visual changes, weakness. Exam: 10:37 Eyes: Pupils equal round and reactive to light, extra-ocular motions intact. Lids and jr8 lashes normal. Conjunctiva and sclera are non-icteric and not injected. Cornea within normal limits. Periorbital areas with no swelling, redness, or edema. ENT: Nares patent. clear rhinorrhea present. Mild bilateral turbinate swelling noted with mild erythema, no septal abnormalities noted. Tympanic membranes are normal and external auditory canals are clear. Oropharynx with no redness, swelling, or masses, exudates, or evidence of obstruction, uvula midline. Mucous membranes moist. Neck: Trachea midline, no thyromegaly or masses palpated, and no cervical lymphadenopathy. Supple, full range of motion without nuchal rigidity, or vertebral point tenderness. No Meningismus. Cardiovascular: Regular rate and rhythm with a normal S1 and S2. No gallops, murmurs, or rubs. Normal PMI, no JVD. No pulse deficits. Respiratory: Lungs have equal breath sounds bilaterally, clear to auscultation and percussion. No rales, rhonchi or wheezes noted. No increased work of breathing, no retractions or nasal flaring. Abdomen/GI: Soft, non-tender, with normal bowel sounds. No distension or tympany. No guarding or rebound. No evidence of tenderness throughout. Back: No spinal tenderness. No costovertebral tenderness. Full range of motion. Skin: Warm, dry with normal turgor. Normal color with no rashes, no lesions, and no evidence of cellulitis. MS/ Extremity: Pulses equal, no cyanosis. Neurovascular intact. Full, normal range of motion. Neuro: Awake and alert, GCS 15, oriented to person, place, time, and situation. Cranial nerves II-XII grossly intact. Motor strength 5/5 in all extremities. Sensory grossly intact. Cerebellar exam normal. Normal gait. Vital Signs: 09:56 BP 190 / 130; Pulse 81; Resp 16; Temp 98.4; Pulse Ox 100% on R/A; la1 11:44 BP 196 / 115; Pulse 78; Resp 18; Pulse Ox 99% on R/A; Pain 5/10; ph 12:03 BP 193 / 128; ph 13:11 BP 175 / 123; em1 MDM: 10:01 Patient medically screened. jr8 13:10 Data reviewed: vital signs, nurses notes, and as a result, I will discharge patient. jr8 Data interpreted: Pulse oximetry: on room air is 99 %. Interpretation: normal. Counseling: I had a detailed discussion with the patient and/or guardian regarding: the historical points, exam findings, and any diagnostic results supporting the discharge/admit diagnosis, the need for outpatient follow up, a family practitioner, to return to the emergency department if symptoms worsen or persist or if there are any questions or concerns that arise at home. 13:10 Response to treatment: the patient's symptoms have markedly improved after treatment. jr8 05/08 10:50 Order name: Urine Dipstick--Ancillary (enter results) 05/08 10:50 Order name: Urine --Ancillary (enter results) 05/08 10:14 Order name: IV; Complete Time: 10:42 jr8 Administered Medications: 11:27 Drug: Benadryl 25 mg Route: IVP; Site: right antecubital; ph 12:30 Follow up: Response: No adverse reaction ph 11:28 Drug: Reglan 10 mg {Note: mixed in 100 cc NS.} Route: IVP; Site: right antecubital; ph 12:30 Follow up: Response: No adverse reaction; Pain is decreased ph 11:30 Drug: Labetalol 10 mg Route: IVP; Site: right antecubital; ph 12:00 Follow up: Response: No adverse reaction; Blood pressure is unchanged ph 12:41 Drug: Labetalol 20 mg Route: IVP; Infused Over: 2 mins; Site: right antecubital; ph 13:15 Follow up: Response: No adverse reaction; Pain is decreased; Blood pressure is lowered ph 13:34 Drug: TORadol - Ketorolac 15 mg Route: IVP; Site: right antecubital; ph 13:35 Follow up: Response: No adverse reaction; Medication administered at discharge. ph Disposition: 17:51 Co-signature as Attending Physician, Pee Harvey MD Did not see or evaluate patient. ps1 Chart signed for administrative purposes. Not an endorsement of care. . Disposition: 05/08/19 13:11 Discharged to Home. Impression: Acute upper respiratory infection, unspecified, Essential (primary) hypertension. - Condition is Stable. - Discharge Instructions: Hypertension, Upper Respiratory Infection, Adult. - Prescriptions for labetalol 200 mg Oral tablet - take 1 tablet by ORAL route 2 times per day; 60 tablet. Medrol (Antonio) 4 mg Oral Tablets, Dose Pack - take 1 tablet by ORAL route as directed - follow package instructions; 1 packet. Guaifenesin AC 10- 100 mg/5 mL Oral Liquid - take 10 milliliter by ORAL route every 4 hours As needed; 240 milliliter. - Medication Reconciliation Form, Thank You Letter, Antibiotic Education, Prescription Opioid Use, Work release form form. - Follow up: Private Physician; When: 2 - 3 days; Reason: Recheck today's complaints, Continuance of care, Re-evaluation by your physician. - Problem is new. - Symptoms have improved. Signatures: Dispatcher [employer] EDMS Andreas Sanders PA PA jr8 Trenton Pulliam RN RN la1 Matilda Silverio RN RN ph Pee Harvey MD MD ps1 Corrections: (The following items were deleted from the chart) 13:36 13:11 05/08/2019 13:11 Discharged to Home. Impression: Acute upper respiratory ph infection, unspecified; Essential (primary) hypertension. Condition is Stable. Forms are Medication Reconciliation Form, Thank You Letter, Antibiotic Education, Prescription Opioid Use. Follow up: Private Physician; When: 2 - 3 days; Reason: Recheck today's complaints, Continuance of care, Re-evaluation by your physician. Problem is new. Symptoms have improved. jr8
--- NOTE | 2019-05-08 13:13 | ER ---
Nurse's Notes [facility] Name: Nely Quinones Age: 34 yrs Sex: Female : 1985 Arrival Date: 05/08/2019 Time: 09:44 Bed 17 Private MD: Diagnosis: Acute upper respiratory infection, unspecified;Essential (primary) hypertension Presentation: 05/08 09:55 Presenting complaint: Patient states: cough, body aches, left ear pain, blood in la1 sputum, nose bleed. Transition of care: patient was not received from another setting of care. Onset of symptoms was May 08, 2019. Risk Assessment: Do you want to hurt yourself or someone else? Patient reports no desire to harm self or others. Initial Sepsis Screen: Does the patient meet any 2 criteria? No. Patient's initial sepsis screen is negative. Does the patient have a suspected source of infection? No. Patient's initial sepsis screen is negative. Care prior to arrival: None. 09:55 Method Of Arrival: Ambulatory la1 09:55 Acuity: LORENA 3 la1 09:57 Note pt states out of BP meds for more than six months. la1 Historical: - Allergies: 09:56 No Known Allergies; la1 - PMHx: 09:56 Hypertension; la1 - Immunization history:: Adult Immunizations up to date. - Social history:: Smoking status: Patient/guardian denies using tobacco. - Ebola Screening: : No symptoms or risks identified at this time. Screenin:44 Abuse screen: Denies threats or abuse. Denies injuries from another. Nutritional ph screening: No deficits noted. Tuberculosis screening: No symptoms or risk factors identified. Fall Risk None identified. Assessment: 10:30 General: Appears in no apparent distress. uncomfortable, slender, Behavior is calm, ph cooperative, appropriate for age, Denies fever. 10:30 Pain: Complains of pain in top of head and left eye. Neuro: Level of Consciousness is ph awake, alert, obeys commands, Oriented to person, place, time, situation, Reports blurred vision dizziness, headache. Cardiovascular: Capillary refill < 3 seconds in bilateral fingers Patient's skin is warm and dry. Respiratory: Reports cough that is Airway is patent Respiratory effort is even, unlabored. GI: Reports nausea, Patient currently denies abdominal pain, vomiting. Derm: Skin is intact, is healthy with good turgor, Skin is pink, warm \T\ dry. Musculoskeletal: Circulation, motion, and sensation intact. Range of motion: intact in all extremities. 11:30 Reassessment: Patient appears in no apparent distress at this time. Patient and/or ph family updated on plan of care and expected duration. Pain level reassessed. Patient is alert, oriented x 3, equal unlabored respirations, skin warm/dry/pink. 12:30 Reassessment: Patient appears in no apparent distress at this time. Patient and/or ph family updated on plan of care and expected duration. Pain level reassessed. Patient is alert, oriented x 3, equal unlabored respirations, skin warm/dry/pink. BP remains elevated, ERP notified, see MAR. 13:30 Reassessment: Patient appears in no apparent distress at this time. Patient and/or ph family updated on plan of care and expected duration. Pain level reassessed. Patient is alert, oriented x 3, equal unlabored respirations, skin warm/dry/pink. Preparing pt for d/c, stressed the importance of taking BP meds as ordered during d/c instructions. Vital Signs: 09:56 BP 190 / 130; Pulse 81; Resp 16; Temp 98.4; Pulse Ox 100% on R/A; la1 11:44 BP 196 / 115; Pulse 78; Resp 18; Pulse Ox 99% on R/A; Pain 5/10; ph 12:03 BP 193 / 128; ph 13:11 BP 175 / 123; em1 ED Course: 09:44 Patient arrived in ED. as 09:56 Triage completed. la1 09:57 Arm band placed on left wrist. la1 09:58 Andreas Sanders PA is PHCP. jr8 09:58 Pee Harvey MD is Attending Physician. jr8 10:11 Matilda Silverio RN is Primary Nurse. ph 10:30 Patient has correct armband on for positive identification. Bed in low position. Call ph light in reach. Side rails up X 1. Pulse ox on. NIBP on. Door closed. Noise minimized. Lights dimmed. Warm blanket given. Pillow given. 10:42 Inserted saline lock: 22 gauge in right antecubital area, using aseptic technique. em1 13:30 No provider procedures requiring assistance completed. IV discontinued, intact, ph bleeding controlled, No redness/swelling at site. Pressure dressing applied. Administered Medications: 11:27 Drug: Benadryl 25 mg Route: IVP; Site: right antecubital; ph 12:30 Follow up: Response: No adverse reaction ph 11:28 Drug: Reglan 10 mg {Note: mixed in 100 cc NS.} Route: IVP; Site: right antecubital; ph 12:30 Follow up: Response: No adverse reaction; Pain is decreased ph 11:30 Drug: Labetalol 10 mg Route: IVP; Site: right antecubital; ph 12:00 Follow up: Response: No adverse reaction; Blood pressure is unchanged ph 12:41 Drug: Labetalol 20 mg Route: IVP; Infused Over: 2 mins; Site: right antecubital; ph 13:15 Follow up: Response: No adverse reaction; Pain is decreased; Blood pressure is lowered ph 13:34 Drug: TORadol - Ketorolac 15 mg Route: IVP; Site: right antecubital; ph 13:35 Follow up: Response: No adverse reaction; Medication administered at discharge. ph Outcome: 13:11 Discharge ordered by MD. saenz 13:36 Patient left the ED. ph 13:36 Discharged to home ambulatory, with family. ph 13:36 Condition: improved 13:36 Discharge instructions given to patient, Instructed on discharge instructions, follow up and referral plans. medication usage, Demonstrated understanding of instructions, follow-up care, medications, Prescriptions given X 3. Signatures: Kristy Lazo Eric em1 Andreas Sanders PA PA jr8 Trenton Pulliam RN RN la1 Matilda Silverio RN RN ph Corrections: (The following items were deleted from the chart) 09:57 09:55 Acuity: OLRENA 4 la1 la1
[2019-05-08] MEDS ORDERED: KETOROLAC 30 MG/ML INJ ONE (13:24)
[2019-05-08 13:38] LABS: Urine Blood NEGATIVE (NEG); Urine Glucose NEGATIVE (NEG); Urine Protein 1+ (NEG)
[2019-05-08 13:52] VITALS: TEMP 98.4
[2019-05-08 13:54] VITALS: O2SAT 99
[2019-05-08 13:56] VITALS: BP 175/123
== END 2019-05-08 13:36 | disposition home or self-care (01) ==
LOC: ER 09:41
DX: J06.9 Acute upper respiratory infection, unspecified (principal); I10 Essential (primary) hypertension
CPT/HCPCS: 81003; 81025; 96374; 96375; 99284; J1200; J2765

== ENCOUNTER 2019-05-09 21:48 | Emergency (ER) | payer SELFPAY ==
[2019-05-09] MEDS ORDERED: NA CHLORIDE 0.9% 500 ML ONE (22:26)
[2019-05-09] MEDS ORDERED: NA CHLORIDE 0.9% 100 ML IV ONE ×2 (22:26→23:01)
[2019-05-09] MEDS ORDERED: LABETALOL 20 MG/4ML SYRINGE IV ONE ×2 (22:26→23:48)
[2019-05-09] MEDS ORDERED: KETOROLAC 30 MG/ML INJ ONE (22:44)
[2019-05-09] MEDS ORDERED: HYDRALAZINE HCL 20 MG/ML VIAL ONE (23:01)
--- NOTE | 2019-05-10 00:22 | ER ---
Nurse's Notes [facility] Name: Nely Quinones Age: 34 yrs Sex: Female : 1985 Arrival Date: 05/09/2019 Time: 21:52 Bed 5 Private MD: Diagnosis: Hypertensive urgency;Hypertensive headache Presentation: 05/09 21:55 Presenting complaint: Patient states: "My head has been pounding all day, its just like aj1 pressure, I feel like my eye balls are about to pop out. I tried to take BC powder, I just left the emergency room yesterday for my blood pressure but I didn't have the money to fill the medicine they gave me." States that she has had this headache for weeks. Transition of care: patient was not received from another setting of care. Onset of symptoms was 2018. Risk Assessment: Do you want to hurt yourself or someone else? Patient reports no desire to harm self or others. Initial Sepsis Screen: Does the patient meet any 2 criteria? No. Patient's initial sepsis screen is negative. Does the patient have a suspected source of infection? No. Patient's initial sepsis screen is negative. Care prior to arrival: None. 21:55 Method Of Arrival: Ambulatory aj1 21:59 Acuity: LORENA 2 aj1 Triage Assessment: 21:59 General: Appears uncomfortable, Behavior is anxious, crying. Pain: Complains of pain in aj1 base of the skull. Neuro: Level of Consciousness is awake, alert, obeys commands, Oriented to person, place, time, situation. Cardiovascular: Patient's skin is warm and dry. Respiratory: Airway is patent Respiratory effort is even, unlabored, Respiratory pattern is regular, symmetrical. 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 - Social history:: Smoking status: Patient uses tobacco products, denies chronic smoking, but will smoke occasionally. - Ebola Screening: : Patient denies travel to an Ebola-affected area in the 21 days before illness onset. Screenin:52 Abuse screen: Denies threats or abuse. Denies injuries from another. Nutritional rv screening: No deficits noted. Tuberculosis screening: No symptoms or risk factors identified. 22:52 Fall Risk None identified. rv Assessment: 22:51 General: Appears in no apparent distress. Behavior is calm, cooperative. Pain: rv Complains of pain in head. Neuro: Level of Consciousness is awake, alert, obeys commands, Oriented to person, place, time, situation, Reports headache. Cardiovascular: Patient's skin is warm and dry. Respiratory: Airway is patent. GI: No signs and/or symptoms were reported involving the gastrointestinal system. : No signs and/or symptoms were reported regarding the genitourinary system. EENT: No signs and/or symptoms were reported regarding the EENT system. Derm: Skin is intact. Musculoskeletal: No signs and/or symptoms reported regarding the musculoskeletal system. 05/10 00:00 Reassessment: Patient appears in no apparent distress at this time. Patient and/or aa1 family updated on plan of care and expected duration. Pain level reassessed. Patient is alert, oriented x 3, equal unlabored respirations, skin warm/dry/pink. Pt requesting more pain medication, states the toradol did not help. MD offered Tylenol or Motrin but pt states nothing OTC helps her pain. Reports being given Tylenol #3 in the past. MD ok with giving Tylenol #3 once her ride is present at bedside. 00:20 Reassessment: Patient appears in no apparent distress at this time. Patient and/or aa1 family updated on plan of care and expected duration. Pain level reassessed. Patient is alert, oriented x 3, equal unlabored respirations, skin warm/dry/pink. Pt c/o nausea; MD notified. Vital Signs: 05/09 21:59 BP 205 / 141; Pulse 71; Resp 18; Temp 97.8; Pulse Ox 100% on R/A; Weight 68.04 kg (R); aj1 Height 5 ft. 2 in. (157.48 cm) (R); Pain 10/10; 22:10 BP 217 / 148; Pulse 66; Resp 16; Pulse Ox 100% on R/A; rv 22:15 BP 217 / 138; Pulse 68; Resp 16; Pulse Ox 100% on R/A; rv 22:30 BP 228 / 154; Pulse 64; Resp 18; Pulse Ox 100% ; rv 22:45 BP 220 / 137; Pulse 64; Resp 16; Pulse Ox 100% ; rv 23:37 BP 188 / 113; Pulse 82; Resp 16; Pulse Ox 100% on R/A; aa1 05/10 00:24 BP 151 / 109; Pulse 82; Resp 18; Pulse Ox 100% on R/A; aa1 05/09 21:59 Body Mass Index 27.44 (68.04 kg, 157.48 cm) aj1 ED Course: 05/09 21:52 Patient arrived in ED. cl3 21:59 Triage completed. aj1 21:59 Arm band placed on Patient placed in an exam room. aj1 22:26 Rodney Coles MD is Attending Physician. tw4 22:32 Quoc Burnett, CHELA is Primary Nurse. rv 22:33 Inserted saline lock: 20 gauge in right antecubital area, using aseptic technique. rv 22:52 Patient has correct armband on for positive identification. Call light in reach. Side rv rails up X 1. Pulse ox on. NIBP on. 05/10 01:03 No provider procedures requiring assistance completed. IV discontinued, intact, ak1 bleeding controlled, No redness/swelling at site. Pressure dressing applied. Administered Medications: 05/09 22:33 Drug: Labetalol 20 mg Route: IVP; Infused Over: 2 mins; Site: right antecubital; rv 23:04 Follow up: Response: No adverse reaction; Blood pressure is unchanged rv 22:45 Drug: TORadol 30 mg Route: IVP; Site: right antecubital; rv 23:04 Follow up: Response: No adverse reaction; Pain is unchanged, physician notified rv 23:03 Drug: hydrALAZINE 20 mg Route: IV; Rate: calculated rate; Site: right antecubital; rv 05/10 00:03 Follow up: Response: Blood pressure is lowered; IV Status: Completed infusion aa1 05/09 23:47 Not Given (Physician Discretion): TORadol 30 mg IVP once tw4 23:47 Not Given (Physician Discretion): hydrALAZINE 20 mg IV at bolus once tw4 23:50 Drug: Labetalol 10 mg Route: IVP; Site: right antecubital; aa1 05/10 00:37 Follow up: Response: No adverse reaction; Blood pressure is lowered aa1 00:20 Drug: Zofran 4 mg Route: PO; aa1 01:03 Follow up: Response: No adverse reaction ak1 01:03 Drug: Tylenol-Codeine #3 (300 mg - 30 mg) 1 tablet Route: PO; ak1 01:03 Follow up: Response: No adverse reaction ak1 Outcome: 00:20 Discharge ordered by . tw4 01:03 Discharged to home ambulatory, with family. ak1 01:03 Condition: good 01:03 Discharge instructions given to patient, Instructed on discharge instructions, follow up and referral plans. Demonstrated understanding of instructions, follow-up care, medications, Prescriptions given X 1. 01:04 Patient left the ED. ak1 Signatures: Nay Willoughby RN RN aj1 Gabby Feliciano RN RN aa1 Lynda Dempsey RN RN ak1 Rodney Coles MD MD tw4 Quoc Burnett RN Manuel Arvizu cl3 Corrections: (The following items were deleted from the chart) 05/09 22:00 21:59 BP 105 / 141; Pulse 71bpm; Resp 18bpm; Pulse Ox 100% RA; Temp 97.8F; 68.04 kg aj1 Reported; Height 5 ft. 2 in. Reported; BMI: 27.4; Pain 03/22; aj1
--- NOTE | 2019-05-10 00:22 | EDPHYS ---
Physician Documentation [facility] Name: Nely Quinones Age: 34 yrs Sex: Female : 1985 Arrival Date: 05/09/2019 Time: 21:52 Bed 5 Private MD: ED Physician Rodney Coles HPI: 05/10 00:28 This 34 yrs old Black Female presents to ER via Ambulatory with complaints of High tw4 Blood Pressure. 00:28 The patient has elevated blood pressure and discovered this at home. Onset: The tw4 symptoms/episode began/occurred yesterday. Modifying factors: The symptoms are aggravated by discontinuation of meds, beta-xander, The symptoms are alleviated by. Associated signs and symptoms: The patient has no apparent associated signs or symptoms. Severity of symptoms: At its worst the blood pressure was moderate, in the emergency department the blood pressure is unchanged. The patient has not experienced similar symptoms in the past. 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 - Social history:: Smoking status: Patient uses tobacco products, denies chronic smoking, but will smoke occasionally. - Ebola Screening: : Patient denies travel to an Ebola-affected area in the 21 days before illness onset. ROS: 05/10 00:28 Constitutional: Negative for fever, chills, and weight loss, Eyes: Negative for injury, tw4 pain, redness, and discharge, Cardiovascular: Negative for chest pain, palpitations, and edema, Respiratory: Negative for shortness of breath, cough, wheezing, and pleuritic chest pain, Abdomen/GI: Negative for abdominal pain, nausea, vomiting, diarrhea, and constipation, Back: Negative for injury and pain, MS/Extremity: Negative for injury and deformity, Skin: Negative for injury, rash, and discoloration. Neuro: Positive for headache, Negative for altered mental status, dizziness, gait disturbance, loss of consciousness, numbness, seizure activity, speech changes, syncope, near syncope, tingling, tinnitus, tremor. Exam: 00:28 Constitutional: This is a well developed, well nourished patient who is awake, alert, tw4 and in no acute distress. Head/Face: Normocephalic, atraumatic. Chest/axilla: Normal chest wall appearance and motion. Nontender with no deformity. No lesions are appreciated. Cardiovascular: Regular rate and rhythm with a normal S1 and S2. No gallops, murmurs, or rubs. Normal PMI, no JVD. No pulse deficits. Respiratory: Lungs have equal breath sounds bilaterally, clear to auscultation and percussion. No rales, rhonchi or wheezes noted. No increased work of breathing, no retractions or nasal flaring. Abdomen/GI: Soft, non-tender, with normal bowel sounds. No distension or tympany. No guarding or rebound. No evidence of tenderness throughout. MS/ Extremity: Pulses equal, no cyanosis. Neurovascular intact. Full, normal range of motion. Neuro: Awake and alert, GCS 15, oriented to person, place, time, and situation. Cranial nerves II-XII grossly intact. Motor strength 5/5 in all extremities. Sensory grossly intact. Cerebellar exam normal. Normal gait. Vital Signs: 05/09 21:59 BP 205 / 141; Pulse 71; Resp 18; Temp 97.8; Pulse Ox 100% on R/A; Weight 68.04 kg (R); aj1 Height 5 ft. 2 in. (157.48 cm) (R); Pain 10/10; 22:10 BP 217 / 148; Pulse 66; Resp 16; Pulse Ox 100% on R/A; rv 22:15 BP 217 / 138; Pulse 68; Resp 16; Pulse Ox 100% on R/A; rv 22:30 BP 228 / 154; Pulse 64; Resp 18; Pulse Ox 100% ; rv 22:45 BP 220 / 137; Pulse 64; Resp 16; Pulse Ox 100% ; rv 23:37 BP 188 / 113; Pulse 82; Resp 16; Pulse Ox 100% on R/A; aa1 05/10 00:24 BP 151 / 109; Pulse 82; Resp 18; Pulse Ox 100% on R/A; aa1 05/09 21:59 Body Mass Index 27.44 (68.04 kg, 157.48 cm) aj MDM: 05/09 22:26 Patient medically screened. tw4 05/10 00:35 Data reviewed: vital signs, nurses notes. Data interpreted: Pulse oximetry: tw4 Interpretation: normal. 06:53 Differential diagnosis: hypertensive crisis, Malignant HTN. Test interpretation: by ED tw4 physician or midlevel provider: not applicable. Counseling: I had a detailed discussion with the patient and/or guardian regarding: the presence of at least one elevated blood pressure reading (>120/80) during this emergency department visit. Medication response: labetalol reduced the patient's elevated blood pressure to within acceptable limits. Response to treatment: and as a result, I will discharge patient. Administered Medications: 05/09 22:33 Drug: Labetalol 20 mg Route: IVP; Infused Over: 2 mins; Site: right antecubital; rv 23:04 Follow up: Response: No adverse reaction; Blood pressure is unchanged rv 22:45 Drug: TORadol 30 mg Route: IVP; Site: right antecubital; rv 23:04 Follow up: Response: No adverse reaction; Pain is unchanged, physician notified rv 23:03 Drug: hydrALAZINE 20 mg Route: IV; Rate: calculated rate; Site: right antecubital; rv 05/10 00:03 Follow up: Response: Blood pressure is lowered; IV Status: Completed infusion aa1 05/09 23:47 Not Given (Physician Discretion): TORadol 30 mg IVP once tw4 23:47 Not Given (Physician Discretion): hydrALAZINE 20 mg IV at bolus once tw4 23:50 Drug: Labetalol 10 mg Route: IVP; Site: right antecubital; aa1 05/10 00:37 Follow up: Response: No adverse reaction; Blood pressure is lowered aa1 00:20 Drug: Zofran 4 mg Route: PO; aa1 01:03 Follow up: Response: No adverse reaction ak1 01:03 Drug: Tylenol-Codeine #3 (300 mg - 30 mg) 1 tablet Route: PO; ak1 01:03 Follow up: Response: No adverse reaction ak1 Disposition: 05/10/19 00:20 Discharged to Home. Impression: Hypertensive urgency, Hypertensive headache. - Condition is Stable. - Discharge Instructions: Tension Headache, Adult, Hypertension. - Prescriptions for Atenolol 100 mg Oral Tablet - take 1 tablet by ORAL route once daily; 30 tablet. - Medication Reconciliation Form, Thank You Letter, Antibiotic Education, Prescription Opioid Use form. - Follow up: Private Physician; When: Upon discharge from the Emergency Department; Reason: Recheck today's complaints, Continuance of care. - Problem is new. - Symptoms have improved. Signatures: Nay Willoughby RN RN aj1 Gabby Feliciano RN RN aa1 Lynda Dempsey RN RN ak1 Rodney Coles MD MD tw4 Quoc Burnett RN RN rv Corrections: (The following items were deleted from the chart) 00:21 00:20 05/10/2019 00:20 Discharged to Home. Impression: Hypertensive urgency. Condition tw4 is Stable. Forms are Medication Reconciliation Form, Thank You Letter, Antibiotic Education, Prescription Opioid Use. Follow up: Private Physician; When: Upon discharge from the Emergency Department; Reason: Recheck today's complaints, Continuance of care. Problem is new. Symptoms have improved. tw4 00:29 00:28 Constitutional: Negative for fever, chills, and weight loss, Eyes: Negative for tw4 injury, pain, redness, and discharge, Cardiovascular: Negative for chest pain, palpitations, and edema, Respiratory: Negative for shortness of breath, cough, wheezing, and pleuritic chest pain, Abdomen/GI: Negative for abdominal pain, nausea, vomiting, diarrhea, and constipation, Back: Negative for injury and pain, Neuro: Negative for headache, weakness, numbness, tingling, and seizure, Psych: Negative for depression, anxiety, suicide ideation, homicidal ideation, and hallucinations, tw4 01:04 00:21 05/10/2019 00:20 Discharged to Home. Impression: Hypertensive urgency; ak1 Hypertensive headache. Condition is Stable. Discharge Instructions: Hypertension. Prescriptions for Atenolol 100 mg Oral Tablet - take 1 tablet by ORAL route once daily; 30 tablet. and Forms are Medication Reconciliation Form, Thank You Letter, Antibiotic Education, Prescription Opioid Use. Follow up: Private Physician; When: Upon discharge from the Emergency Department; Reason: Recheck today's complaints, Continuance of care. Problem is new. Symptoms have improved. tw4
[2019-05-10] MEDS ORDERED: CODEINE 30MG/APAP 300MG TAB ONE (00:27)
[2019-05-10] MEDS ORDERED: ONDANSETRON 4 MG (ODT) TAB ONE (00:28)
[2019-05-10 03:25] VITALS: O2SAT 100
[2019-05-10 03:31] VITALS: BP 151/109
== END 2019-05-10 01:04 | disposition home or self-care (01) ==
LOC: ER 21:48
DX: I16.0 Hypertensive urgency (principal); I10 Essential (primary) hypertension; Z72.0 Tobacco use
CPT/HCPCS: 96365; 96375; 99284; J0360; J7040

== ENCOUNTER 2019-08-14 12:49 | Emergency (ER) | payer SELFPAY ==
[2019-08-14] MEDS ORDERED: cloNIDine HCL 0.1 MG TAB ONE (13:36)
[2019-08-14] MEDS ORDERED: atenoloL 50 MG TAB ONE ×2 (13:36→14:49)
[2019-08-14] MEDS ORDERED: AMLODIPINE 5 MG TAB ONE (13:36)
--- NOTE | 2019-08-14 14:24 | RAD REPORT ---
EXAM DESCRIPTION: RAD - Chest Single View - 08/14/2019 1:56 pm CLINICAL HISTORY: SOB COMPARISON: Chest Single View dated 07/27/2016 TECHNIQUE: AP portable chest image was obtained 08/14/2019 1:56 pm . FINDINGS: No dense consolidation. Interstitial opacification is present in each lower lung field inc reased over comparison studies. No abnormal lymphadenopathy. Trachea is midline. Heart and vasculatur e are normal. No measurable pleural effusion and no pneumothorax. No acute bone finding. 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 No acute aortic findings suspected. IMPRESSION: Bilateral lower lung field interstitial edema or infiltrate pattern.
--- NOTE | 2019-08-14 15:42 | ER ---
Nurse's Notes [facility] Name: Nely Quinones Age: 34 yrs Sex: Female : 1985 Arrival Date: 08/14/2019 Time: 12:52 Bed 20 Private MD: Diagnosis: Hypertensive urgency;Acute upper respiratory infection, unspecified Presentation: 08/13 13:01 Chief complaint: Patient states: Cough, congestion, body aches, N/V x 1 week. Denies ca1 fever. Coronavirus screen: The patient has NOT traveled to [place] in the past 14 days. The patient has NOT had contact with known and/or suspected case of Coronavirus. Ebola Screen: Patient negative for fever greater than or equal to 101.5 degrees Fahrenheit, and additional compatible Ebola Virus Disease symptoms Patient denies exposure to infectious person. Patient denies travel to an Ebola-affected area in the 21 days before illness onset. No symptoms or risks identified at this time. Initial Sepsis Screen: Does the patient meet any 2 criteria? No. Patient's initial sepsis screen is negative. Does the patient have a suspected source of infection? No. Patient's initial sepsis screen is negative. Risk Assessment: Do you want to hurt yourself or someone else? Patient reports no desire to harm self or others. Onset of symptoms was August 14, 2019. 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 - Social history:: Smoking status: Patient reports the use of cigarette tobacco products, denies chronic smoking, but will smoke occasionally. Screenin:41 Abuse screen: Denies threats or abuse. Denies injuries from another. Nutritional mg2 screening: No deficits noted. Tuberculosis screening: No symptoms or risk factors identified. Fall Risk None identified. Assessment: 13:40 General: Appears in no apparent distress. comfortable, Behavior is calm, cooperative. mg2 Pain: Denies pain. Neuro: Level of Consciousness is awake, alert, obeys commands, Oriented to person, place, time, situation. Cardiovascular: Capillary refill < 3 seconds Patient's skin is warm and dry. Respiratory: Airway is patent Respiratory effort is even, unlabored, Respiratory pattern is regular, symmetrical. Respiratory: Reports cough that is. GI: No signs and/or symptoms were reported involving the gastrointestinal system. : No signs and/or symptoms were reported regarding the genitourinary system. EENT: No signs and/or symptoms were reported regarding the EENT system. Derm: Skin is intact, is healthy with good turgor, Skin is pink, warm \T\ dry. normal. Musculoskeletal: Reports weakness in whole body. 15:06 Reassessment: Patient appears in no apparent distress at this time. Patient and/or mg2 family updated on plan of care and expected duration. Pain level reassessed. Patient is alert, oriented x 3, equal unlabored respirations, skin warm/dry/pink. 16:21 Reassessment: Patient appears in no apparent distress at this time. Patient states mg2 symptoms have improved. Vital Signs: 13:01 BP 206 / 145 RA; Pulse 86; Resp 19 S; Temp 98(TE); Pulse Ox 99% on R/A; Weight 68.04 kg ca1 (R); Height 5 ft. 7 in. (170.18 cm) (R); 13:06 BP 212 / 140 LA; ca1 13:42 BP 217 / 141; Pulse 89; Resp 18; Pulse Ox 100% on R/A; mg2 14:11 BP 186 / 128; Pulse 79; Resp 18; Pulse Ox 98% on R/A; mg2 14:43 BP 177 / 126; Pulse 80; Resp 18; Pulse Ox 100% on R/A; mg2 15:06 BP 168 / 116; Pulse 80; Resp 18; Pulse Ox 100% on R/A; mg2 15:51 BP 167 / 123; Pulse 69; Resp 16; Temp 98.6(O); Pulse Ox 98% ; lt1 16:21 BP 167 / 118; Pulse 70; Resp 18; Temp 98; Pulse Ox 100% on R/A; mg2 13:01 Body Mass Index 23.49 (68.04 kg, 170.18 cm) ca1 ED Course: 12:52 Patient arrived in ED. ag5 12:55 Fabiola V[facility]C [facility] snw 12:55 Wang Peres MD is Attending Physician. snw 13:05 Triage completed. ca1 13:06 Arm band placed on right wrist. ca1 13:29 Preet Salinas, RN is Primary Nurse. mg2 13:41 No provider procedures requiring assistance completed. Patient did not have IV access mg2 during this emergency room visit. 13:42 Patient has correct armband on for positive identification. Door closed. mg2 13:57 Chest Single View XRAY In Process Unspecified. EDMS Administered Medications: 13:39 Drug: cloNIDine 0.2 mg Route: PO; mg2 14:38 Follow up: Response: No adverse reaction mg2 13:40 Drug: amLODIPine 10 mg Route: PO; mg2 14:39 Follow up: Response: No adverse reaction; Blood pressure is lowered mg2 13:40 Drug: Atenolol 50 mg Route: PO; mg2 14:39 Follow up: Response: No adverse reaction; Blood pressure is lowered mg2 14:48 Drug: Atenolol 50 mg Route: PO; mg2 15:30 Follow up: Response: No adverse reaction mg2 Outcome: 15:40 Discharge ordered by MD. snw 16:22 Discharged to home ambulatory, with family. mg2 16:22 Condition: stable 16:22 Discharge instructions given to patient, family, Instructed on discharge instructions, follow up and referral plans. medication usage, Demonstrated understanding of instructions, follow-up care, medications, Prescriptions given X 2. 16:22 Patient left the ED. mg2 Signatures: Dispatcher [employer] EDMS Fabiola Vázquez FNP-C HEAD CONCIERGE-Csnw Preet Salinas RN RN mg2 Judie Davis RN RN ca1 Patrick, Juan A ag5 Mao, Modesta lt1
--- NOTE | 2019-08-14 15:42 | EDPHYS ---
Physician Documentation [facility] Name: Nely Quinones Age: 34 yrs Sex: Female : 1985 Arrival Date: 08/14/2019 Time: 12:52 Bed 20 Private MD: ED Physician Wang Peres HPI: 08/13 15:37 This 34 yrs old Black Female presents to ER via Ambulatory with complaints of Flu snw Symptoms. 15:37 Malaise, congestion, cough, fatigue, taking OTC cold medications. Arrives with BP snw 217/145. Onset: The symptoms/episode began/occurred acutely. Severity of symptoms: At their worst the symptoms were moderate in the emergency department the symptoms are unchanged. It is unknown whether or not the patient has had similar symptoms in the past. last HTN refill in ED. 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 - Social history:: Smoking status: Patient reports the use of cigarette tobacco products, denies chronic smoking, but will smoke occasionally. ROS: 15:35 Constitutional: Negative for fever, chills, and weight loss, + malaise, fatigue Eyes: snw Negative for injury, pain, redness, and discharge. 15:35 Neck: Negative for injury, pain, and swelling, Cardiovascular: Negative for chest pain, palpitations, and edema. 15:35 Back: Negative for injury and pain, : Negative for injury, bleeding, discharge, and swelling, MS/Extremity: Negative for injury and deformity, Skin: Negative for injury, rash, and discoloration, Neuro: Negative for headache, weakness, numbness, tingling, and seizure. 15:35 ENT: Positive for Teeth pain 15:35 Respiratory: Positive for shortness of breath, on exertion. 15:35 Abdomen/GI: Negative for constipation. Exam: 15:35 Constitutional: This is a well developed, well nourished patient who is awake, alert, snw and in no acute distress. Head/Face: Normocephalic, atraumatic. Eyes: Pupils equal round and reactive to light, extra-ocular motions intact. Lids and lashes normal. Conjunctiva and sclera are non-icteric and not injected. Cornea within normal limits. Periorbital areas with no swelling, redness, or edema. ENT: Nares patent. No nasal discharge, no septal abnormalities noted. Tympanic membranes are normal and external auditory canals are clear. Oropharynx with no redness, swelling, or masses, exudates, or evidence of obstruction, uvula midline. Mucous membranes moist. Neck: Trachea midline, no thyromegaly or masses palpated, and no cervical lymphadenopathy. Supple, full range of motion without nuchal rigidity, or vertebral point tenderness. No Meningismus. Chest/axilla: Normal chest wall appearance and motion. Nontender with no deformity. No lesions are appreciated. Cardiovascular: Regular rate and rhythm with a normal S1 and S2. No gallops, murmurs, or rubs. Normal PMI, no JVD. No pulse deficits. Respiratory: Lungs have equal breath sounds bilaterally, clear to auscultation and percussion. No rales, rhonchi or wheezes noted. No increased work of breathing, no retractions or nasal flaring. Abdomen/GI: Soft, non-tender, with normal bowel sounds. No distension or tympany. No guarding or rebound. No evidence of tenderness throughout. Back: No spinal tenderness. No costovertebral tenderness. Full range of motion. Skin: Warm, dry with normal turgor. Normal color with no rashes, no lesions, and no evidence of cellulitis. MS/ Extremity: Pulses equal, no cyanosis. Neurovascular intact. Full, normal range of motion. Neuro: Awake and alert, GCS 15, oriented to person, place, time, and situation. Cranial nerves II-XII grossly intact. Motor strength 5/5 in all extremities. Sensory grossly intact. Cerebellar exam normal. Normal gait. Psych: Awake, alert, with orientation to person, place and time. Behavior, mood, and affect are within normal limits. Vital Signs: 13:01 BP 206 / 145 RA; Pulse 86; Resp 19 S; Temp 98(TE); Pulse Ox 99% on R/A; Weight 68.04 kg ca1 (R); Height 5 ft. 7 in. (170.18 cm) (R); 13:06 BP 212 / 140 LA; ca1 13:42 BP 217 / 141; Pulse 89; Resp 18; Pulse Ox 100% on R/A; mg2 14:11 BP 186 / 128; Pulse 79; Resp 18; Pulse Ox 98% on R/A; mg2 14:43 BP 177 / 126; Pulse 80; Resp 18; Pulse Ox 100% on R/A; mg2 15:06 BP 168 / 116; Pulse 80; Resp 18; Pulse Ox 100% on R/A; mg2 15:51 BP 167 / 123; Pulse 69; Resp 16; Temp 98.6(O); Pulse Ox 98% ; lt1 16:21 BP 167 / 118; Pulse 70; Resp 18; Temp 98; Pulse Ox 100% on R/A; mg2 13:01 Body Mass Index 23.49 (68.04 kg, 170.18 cm) ca1 MDM: 13:25 Patient medically screened. snw 15:43 Data reviewed: vital signs, nurses notes. Data interpreted: Pulse oximetry: on room air snw is 100 %. Interpretation: normal. Counseling: I had a detailed discussion with the patient and/or guardian regarding: the historical points, exam findings, and any diagnostic results supporting the discharge/admit diagnosis, the presence of at least one elevated blood pressure reading (>120/80) during this emergency department visit, radiology results, the need for outpatient follow up, to return to the emergency department if symptoms worsen or persist or if there are any questions or concerns that arise at home. Special discussion: I have referred the patient to see his PCP for further evaluation of high blood pressure. Based on the history and exam findings, there is no indication for further emergent testing or inpatient evaluation. I discussed with the patient/guardian the need to see the primary care provider for further evaluation of the symptoms. 08/13 13:28 Order name: Chest Single View XRAY; Complete Time: 14:39 snw 08/13 14:12 Order name: Recheck B/P; Complete Time: 14:40 snw 08/13 15:43 Order name: Recheck B/P; Complete Time: 15:52 snw Administered Medications: 13:39 Drug: cloNIDine 0.2 mg Route: PO; mg2 14:38 Follow up: Response: No adverse reaction mg2 13:40 Drug: amLODIPine 10 mg Route: PO; mg2 14:39 Follow up: Response: No adverse reaction; Blood pressure is lowered mg2 13:40 Drug: Atenolol 50 mg Route: PO; mg2 14:39 Follow up: Response: No adverse reaction; Blood pressure is lowered mg2 14:48 Drug: Atenolol 50 mg Route: PO; mg2 15:30 Follow up: Response: No adverse reaction mg2 Disposition: 08/14/19 15:40 Discharged to Home. Impression: Hypertensive urgency, Acute upper respiratory infection, unspecified. - Condition is Stable. - Discharge Instructions: Constipation, Adult, Hypertension, Upper Respiratory Infection, Adult, Rehydration, Adult, Managing Your Hypertension, Form - Blood Pressure Record Sheet. - Prescriptions for Atenolol 100 mg Oral Tablet - take 1 tablet by ORAL route once daily; 60 tablet. Miralax 17 gram/dose Oral - take 1 packet by ORAL route once daily dilute powder in 8 ounces of water or juice; 1 box. - Medication Reconciliation Form, Thank You Letter, Antibiotic Education, Prescription Opioid Use, Work release form form. - Follow up: Emergency Department; When: As needed; Reason: Worsening of condition. Follow up: Private Physician; When: 1 - 2 days; Reason: Recheck today's complaints, Continuance of care, Re-evaluation by your physician. Addendum: 08/20/2019 01:29 Co-signature as Attending Physician, Wang Peres MD. m a2 Signatures: Dispatcher [employer] EDMS Fabiola Vázquez, RECOVERY ROOM RN-C RECOVERY ROOM RN-Csnw Wang Peres MD MD in2 Preet Salinas RN RN mg2 Judie Davis RN RN ca1 Corrections: (The following items were deleted from the chart) 08/13 16:22 15:40 08/14/2019 15:40 Discharged to Home. Impression: Hypertensive urgency; Acute mg2 upper respiratory infection, unspecified. Condition is Stable. Forms are Medication Reconciliation Form, Thank You Letter, Antibiotic Education, Prescription Opioid Use. Follow up: Emergency Department; When: As needed; Reason: Worsening of condition. Follow up: Private Physician; When: 1 - 2 days; Reason: Recheck today's complaints, Continuance of care, Re-evaluation by your physician. snw
[2019-08-14 17:08] VITALS: BP 167/118; TEMP 98; O2SAT 100
== END 2019-08-14 16:22 | disposition home or self-care (01) ==
LOC: ER 12:49
DX: I16.0 Hypertensive urgency (principal); J06.9 Acute upper respiratory infection, unspecified; Z72.0 Tobacco use
CPT/HCPCS: 71045; 99283

== ENCOUNTER 2019-09-24 08:44 | Inpatient (IN) | payer SELFPAY ==
[2019-09-24] MEDS: FUROSEMIDE 40 MG/4 ML VIAL IV SCH (09:00)
[2019-09-24] MEDS ORDERED: LORazepam 2 MG/ML VIAL ONE ×2 (09:49→11:19)
[2019-09-24 10:00] LABS: Basophils % 1.2 % (0-1.3); Hematocrit 31.9 % (36.0-45.0); Lymphocytes % 27.4 % (15.3-44.8); MPV 9.3 fL (7.6-11.3); RBC Red Blood Cell Count 4.04 M/uL (3.86-4.86)
[2019-09-24 10:18] LABS: Potassium 2.8 mmol/L (3.5-5.1)
[2019-09-24] MEDS ORDERED: FUROSEMIDE 20 MG/ 2ML VIAL ONE (10:48)
[2019-09-24] MEDS ORDERED: KCL 20 MEQ/100 mL IVPB 20 MEQ/100 ML BAG IV ONE (10:49)
[2019-09-24] MEDS ORDERED: Nicardipine/NS 25 MG/250 ML KIT IV ONE (10:51)
--- NOTE | 2019-09-24 11:09 | RAD REPORT ---
EXAM DESCRIPTION: Joseph Horton And Lat (2 Views)09/24/2019 10:13 am CLINICAL HISTORY: Shortness of breath COMPARISON: August 2019 R FINDINGS: Mild to moderate bilateral interstitial lung opacities. The heart is mildly to moderately enlarged IMPRESSION: Mild to moderate bilateral interstitial lung opacities may represent pulmonary edema, vi ral pneumonia or pneumonitis
[2019-09-24] MEDS ORDERED: OSELTAMIVIR 75 MG CAP ONE (11:16)
[2019-09-24 11:22] LABS: Protime INR 1.03
[2019-09-24 12:02] LABS: Albumin 3.3 g/dL (3.4-5.0); Bilirubin Direct 0.1 mg/dL (0-0.2); Bilirubin Total 0.3 mg/dL (0.2-1.0); Magnesium 2.1 mg/dL (1.8-2.4); Protein, Total 7.2 g/dL (6.4-8.2); Troponin (Emerg Dept Use Only) 0.05 ng/mL (0.0-0.045)
--- NOTE | 2019-09-24 12:04 | RAD REPORT ---
EXAM DESCRIPTION: US - Renal Ultrasound-Complete - 09/24/2019 11:52 am CLINICAL HISTORY: Acute renal insufficiency COMPARISON: None. FINDINGS: The right kidney measures 8 cm with an increased echotexture. The left kidney measures eat cm with an increased echotexture. Hydronephrosis is not seen. No gross abnormality of bladder is seen IMPRESSION: Increased renal echotexture consistent with parenchymal disease
[2019-09-24 12:08] LABS: Urine Blood 2+ (NEG); Urine Glucose NEGATIVE (NEG); Urine Protein 1+ (NEG); Urine pH 6.5 (5.0-7.0)
--- NOTE | 2019-09-24 12:16 | EDPHYS ---
Physician Documentation [facility] [place] Name: Nely Quinones Age: 34 yrs Sex: Female : 1985 Arrival Date: 09/24/2019 Time: 08:47 Bed 19 Private MD: ED Physician Oscar Shultz HPI: 09/23 09:32 This 34 yrs old Black Female presents to ER via Ambulatory with complaints of Chest kb Tightness. 09:33 The patient has shortness of breath at rest. Onset: The symptoms/episode began/occurred kb yesterday. Duration: The symptoms are continuous. The patient's shortness of breath is aggravated by nothing, is alleviated by nothing. Associated signs and symptoms: The patient has no apparent associated signs or symptoms. Severity of symptoms: At their worst the symptoms were moderate in the emergency department the symptoms are unchanged. The patient has not experienced similar symptoms in the past. The patient has not recently seen a physician. 09:33 Pt reports shortness of breath that started yesterday. Reports fatigue, bodyaches, and kb her body feels heavy. 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 - Social history:: Smoking status: Patient reports the use of cigarette tobacco products, denies chronic smoking, but will smoke occasionally. ROS: 09:32 Neck: Negative for injury, pain, and swelling, Cardiovascular: Negative for chest pain, kb palpitations, and edema, Abdomen/GI: Negative for abdominal pain, nausea, vomiting, diarrhea, and constipation, MS/Extremity: Negative for injury and deformity, Skin: Negative for injury, rash, and discoloration, Neuro: Negative for headache, weakness, numbness, tingling, and seizure. 09:32 Constitutional: Positive for body aches, fatigue, malaise, Negative for chills, fever, poor PO intake, weight loss. 09:32 Respiratory: Positive for shortness of breath, at rest. Exam: 09:31 Head/Face: Normocephalic, atraumatic. ENT: Nares patent. No nasal discharge, no kb septal abnormalities noted. Tympanic membranes are normal and external auditory canals are clear. Oropharynx with no redness, swelling, or masses, exudates, or evidence of obstruction, uvula midline. Mucous membranes moist. Neck: Trachea midline, no thyromegaly or masses palpated, and no cervical lymphadenopathy. Supple, full range of motion without nuchal rigidity, or vertebral point tenderness. No Meningismus. Chest/axilla: Normal chest wall appearance and motion. Nontender with no deformity. No lesions are appreciated. Cardiovascular: Regular rate and rhythm with a normal S1 and S2. No gallops, murmurs, or rubs. Normal PMI, no JVD. No pulse deficits. Abdomen/GI: Soft, non-tender, with normal bowel sounds. No distension or tympany. No guarding or rebound. No evidence of tenderness throughout. Back: No spinal tenderness. No costovertebral tenderness. Full range of motion. Skin: Warm, dry with normal turgor. Normal color with no rashes, no lesions, and no evidence of cellulitis. MS/ Extremity: Pulses equal, no cyanosis. Neurovascular intact. Full, normal range of motion. Neuro: Awake and alert, GCS 15, oriented to person, place, time, and situation. Cranial nerves II-XII grossly intact. Motor strength 5/5 in all extremities. Sensory grossly intact. Cerebellar exam normal. Normal gait. 09:31 Constitutional: The patient appears alert, awake, uncomfortable. 09:31 Respiratory: mild respiratory distress is noted, Respirations: shallow respirations, tachypnea, Breath sounds: decreased breath sounds, that are mild, rhonchi, that are mild, are heard in the left posterior lower lobe. 09:34 ECG was reviewed by the Attending Physician. kb Vital Signs: 09:07 BP 195 / 144; Pulse 67; Resp 18 S; Temp 98.0; Pulse Ox 98% on R/A; Weight 68.04 kg; iw Height 5 ft. 2 in. (157.48 cm); Pain 10/10; 09:45 BP 167 / 122; Pulse 68; Resp 30 S; Pulse Ox 98% on R/A; aa5 09:55 Resp 18 S; Pulse Ox 100% on R/A; aa5 11:00 BP 193 / 139; Pulse 69; Resp 18 S; Pulse Ox 100% on R/A; aa5 11:10 BP 194 / 147; Pulse 70; Resp 20 S; Pulse Ox 100% on R/A; aa5 11:20 BP 197 / 129; Pulse 71; Resp 22 S; Pulse Ox 99% on R/A; aa5 11:25 BP 183 / 128; Pulse 71; Resp 22 S; Temp 97.6(O); Pulse Ox 100% on 2 lpm NC; aa5 11:30 BP 179 / 121; Pulse 71; aa5 11:39 BP 156 / 112; Pulse 69; aa5 11:50 BP 158 / 106; Pulse 67; Resp 18 S; Pulse Ox 100% on 2 lpm NC; aa5 12:00 BP 158 / 111; Pulse 68; Resp 18 S; Pulse Ox 100% on 2 lpm NC; aa5 12:10 BP 149 / 104; Pulse 68; Resp 18 S; Pulse Ox 100% on 2 lpm NC; aa5 12:20 BP 150 / 96; Pulse 68; Resp 20 S; Pulse Ox 100% on 2 lpm NC; aa5 12:40 BP 166 / 109; Pulse 71; Resp 20 S; Pulse Ox 100% on 2 lpm NC; aa5 13:00 BP 159 / 103; Pulse 70; Resp 20 S; Pulse Ox 100% on 2 lpm NC; aa5 13:40 BP 134 / 93; Pulse 69; Resp 16 S; Pulse Ox 100% on 2 lpm NC; aa5 14:00 BP 127 / 85; Pulse 69; Resp 18 S; Pulse Ox 100% on 2 lpm NC; aa5 14:20 BP 139 / 92; Pulse 68; Resp 16 S; Pulse Ox 100% on 2 lpm NC; aa5 14:40 BP 159 / 105; Pulse 62; Resp 16 S; Pulse Ox 100% on 2 lpm NC; aa5 15:00 BP 153 / 116; Pulse 74; Resp 18 S; Temp 98.5(O); Pulse Ox 100% on 2 lpm NC; aa5 15:20 BP 176 / 123; Pulse 67; Resp 18 S; Pulse Ox 100% on 2 lpm NC; aa5 15:40 BP 185 / 119; Pulse 73; Resp 18 S; Pulse Ox 100% on 2 lpm NC; aa5 15:55 BP 160 / 105; Pulse 70; Resp 16 S; Pulse Ox 100% on 2 lpm NC; aa5 09:07 Body Mass Index 27.44 (68.04 kg, 157.48 cm) iw MDM: 09:23 Patient medically screened. kb 09:32 Data reviewed: vital signs, nurses notes. Data interpreted: Pulse oximetry: on room air kb is 98 %. Interpretation: normal. 12:12 Physician consultation: Eren Cabrera MD was contacted at 12:12, regarding admission, kb to the ICU, patient's condition, and will see patient in ED, shortly, would like consultation with nephrology. 12:14 Counseling: I had a detailed discussion with the patient and/or guardian regarding: the kb historical points, exam findings, and any diagnostic results supporting the discharge/admit diagnosis, lab results, radiology results, the need for further work-up and treatment in the hospital. Physician consultation: Tasha Jessica MD was called at 12:14, regarding consult. 12:30 Physician consultation: Sami Monge DO was contacted at 12:30, regarding consult, kb patient's condition, and will see patient shortly. 09/23 09:28 Order name: CBC with Diff; Complete Time: 10:06 kb 09/23 09:28 Order name: Basic Metabolic Panel; Complete Time: 10:18 kb 09/23 09:28 Order name: D-Dimer; Complete Time: 10:08 kb 09/23 09:28 Order name: Flu; Complete Time: 10:30 kb 09/23 09:28 Order name: Strep; Complete Time: 10:30 kb 09/23 10:20 Order name: COVID-19; Complete Time: 12:10 kb 09/23 10:37 Order name: LFT's; Complete Time: 12:04 iw 09/23 10:37 Order name: Magnesium; Complete Time: 12:04 iw 09/23 10:37 Order name: NT PRO-BNP; Complete Time: 12:04 09/23 10:37 Order name: PT-INR; Complete Time: 11:36 09/23 10:37 Order name: Troponin (emerg Dept Use Only); Complete Time: 12:04 09/23 10:54 Order name: Throat Culture EDMD 09/23 11:41 Order name: Urine Dipstick--Ancillary (enter results); Complete Time: 12:10 bd 09/23 11:41 Order name: Urine --Ancillary (enter results); Complete Time: 12:10 bd 09/23 09:28 Order name: Chest Pa And Lat (2 Views) XRAY; Complete Time: 11:11 kb 09/23 10:37 Order name: US Rp Exam Complete; Complete Time: 12:10 iw 09/23 11:23 Order name: EKG Electrocardiogram EDMS 09/23 11:49 Order name: Diet Regular; Complete Time: 11:49 aa5 09/23 12:35 Order name: CONS Physician Consult EDMS 09/23 12:36 Order name: Comprehensive Metabolic Panel EDMS 09/23 09:28 Order name: IV Start; Complete Time: 10:04 kb 09/23 10:09 Order name: Urine Dipstick-Ancillary (obtain specimen); Complete Time: 12:07 kb 09/23 10:09 Order name: Urine Test (obtain specimen); Complete Time: 12:07 kb 09/23 12:36 Order name: CONS Pharmacy Consult EDMS 09/23 12:36 Order name: NPO EDMS EC:34 Rate is 67 beats/min. Rhythm is regular. QRS [place] is Normal. [place] interval is normal at kb 154 msec. QRS interval is normal at 80 msec. QT interval is normal at 434 msec. Administered Medications: 09:46 Drug: Ativan 0.5 mg Route: IVP; Site: right antecubital; aa5 09:55 Follow up: Response: No adverse reaction; Marked relief of symptoms aa5 10:50 Drug: Lasix 20 mg Route: IVP; Site: left antecubital; aa5 11:00 Follow up: Response: No adverse reaction aa5 11:00 Drug: Potassium Chloride 20 mEq Route: IV; Rate: calculated rate; Site: left aa5 antecubital; 11:00 Drug: Cardene 5 mg/hr Route: IV; Rate: calculated rate; Site: right antecubital; aa5 11:20 Follow up: drip started at 5mg/hr, increased to 7mg/hr at 1120 aa5 14:00 Follow up: Drip decreased to 4mg/hr aa5 15:00 Follow up: IV Status: Order to discontinue infusion aa5 11:12 Drug: Tamiflu 75 mg Route: PO; aa5 12:05 Follow up: Response: No adverse reaction aa5 11:20 Drug: Ativan 0.5 mg Route: IVP; Site: right antecubital; aa5 11:35 Follow up: Response: No adverse reaction; Marked relief of symptoms aa5 15:00 Drug: Norvasc 10 mg Route: PO; aa5 15:40 Follow up: Response: No adverse reaction aa5 15:40 Drug: hydrALAZINE 10 mg Route: IV; Rate: per protocol; Site: right antecubital; aa5 16:00 Follow up: Response: No adverse reaction; Blood pressure is lowered aa5 15:40 Drug: hydrALAZINE 10 mg Route: PO; aa5 16:00 Follow up: Response: No adverse reaction; Blood pressure is lowered aa5 Disposition: 09/24 13:57 Co-signature as Attending Physician, Oscar Shultz MD I agree with the assessment and toño plan of care. Disposition: 09/24/19 12:15 Hospitalization ordered by Eren Cabrera for Inpatient Admission. Preliminary diagnosis are Acute kidney failure, Acute pulmonary edema, Influenza due to certain identified influenza viruses, Hypokalemia, Essential (primary) hypertension. - Bed requested for Telemetry/MedSurg (Inpatient). - Status is Inpatient Admission. aa5 - Condition is Stable. - Problem is new. - Symptoms are unchanged. Signatures: Dispatcher [employer] [facility] Jovanna Paulino, TITLE INSURANCE SALES REPRESENTATIVE-C TITLE INSURANCE SALES REPRESENTATIVE-CkZandra Mercado Diana, RN RN dw Anderson, Corey, MD MD cha Williams, Irene, RN RN iw Calderon, Audri, RN RN aa5 Corrections: (The following items were deleted from the chart) 09/23 09:31 09:31 Respiratory: mild respiratory distress is noted, Respirations: shallow kb respirations, tachypnea, Breath sounds: decreased breath sounds, kb 10:44 10:09 Chest For PE Angio+CT.RAD.BRZ ordered. [facility] 14:28 12:15 Hospitalization Ordered by Eren Cabrera MD for Inpatient Admission. dw Preliminary diagnosis is Acute kidney failure; Acute pulmonary edema; Influenza due to certain identified influenza viruses; Hypokalemia; Essential (primary) hypertension. Bed requested for Intensive Care Unit. Status is Inpatient Admission. Condition is Stable. Problem is new. Symptoms are unchanged. kb 14:56 14:28 09/24/2019 12:15 Hospitalization Ordered by Eren Cabrera MD for Inpatient bd Admission. Preliminary diagnosis is Acute kidney failure; Acute pulmonary edema; Influenza due to certain identified influenza viruses; Hypokalemia; Essential (primary) hypertension. Bed requested for Intensive Care Unit. Status is Inpatient Admission. Condition is Stable. Problem is new. Symptoms are unchanged. dw 15:40 14:56 09/24/2019 12:15 Hospitalization Ordered by Eren Cabrera MD for Inpatient dw Admission. Preliminary diagnosis is Acute kidney failure; Acute pulmonary edema; Influenza due to certain identified influenza viruses; Hypokalemia; Essential (primary) hypertension. Bed requested for Telemetry/MedSurg (Inpatient). Status is Inpatient Admission. Condition is Stable. Problem is new. Symptoms are unchanged. bd 16:23 15:40 09/24/2019 12:15 Hospitalization Ordered by Eren Cabrera MD for Inpatient aa5 Admission. Preliminary diagnosis is Acute kidney failure; Acute pulmonary edema; Influenza due to certain identified influenza viruses; Hypokalemia; Essential (primary) hypertension. Bed requested for Telemetry/MedSurg (Inpatient). Status is Inpatient Admission. Condition is Stable. Problem is new. Symptoms are unchanged. dw
--- NOTE | 2019-09-24 12:16 | ER ---
Nurse's Notes [facility] Name: Nely Quinones Age: 34 yrs Sex: Female : 1985 Arrival Date: 09/24/2019 Time: 08:47 Bed 19 Private MD: Diagnosis: Acute kidney failure;Acute pulmonary edema;Influenza due to certain identified influenza viruses;Hypokalemia;Essential (primary) hypertension Presentation: 09/23 09:04 Chief complaint: Patient states: SOB and chest tightness since last night, denies iw cough, denies fever, hx of asthma but does not use inhaler, also feels very fatigued. Coronavirus screen: Patient denies a cough. Patient reports shortness of breath or difficulty breathing. Patient denies measured and/or subjective temperature greater than 100.4F prior to today's visit. Patient denies travel on a cruise ship or to a country the [facility] currently lists as an affected area. Patient denies contact with known and/or suspected case of COVID-19. Ebola Screen: Patient negative for fever greater than or equal to 101.5 degrees Fahrenheit, and additional compatible Ebola Virus Disease symptoms Patient denies exposure to infectious person. Patient denies travel to an Ebola-affected area in the 21 days before illness onset. No symptoms or risks identified at this time. Initial Sepsis Screen: Does the patient meet any 2 criteria? No. Patient's initial sepsis screen is negative. Does the patient have a suspected source of infection? No. Patient's initial sepsis screen is negative. Risk Assessment: Do you want to hurt yourself or someone else? Patient reports no desire to harm self or others. 09:04 Method Of Arrival: Ambulatory iw 09:04 Acuity: LORENA 3 iw 09:06 Onset of symptoms was September 23, 2019. 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 - Social history:: Smoking status: Patient reports the use of cigarette tobacco products, denies chronic smoking, but will smoke occasionally. Screenin:30 Abuse screen: Denies threats or abuse. Nutritional screening: No deficits noted. aa5 Tuberculosis screening: No symptoms or risk factors identified. Fall Risk None identified. Assessment: 09:15 General: Appears uncomfortable, Behavior is cooperative, anxious. Pain: Complains of aa5 pain in mid-sternal area Pain does not radiate. Pain currently is 10 out of 10 on a pain scale. Quality of pain is described as pressure, Pain began 1 day ago. Is intermittent. Neuro: Level of Consciousness is awake, alert, obeys commands, Oriented to person, place, time, situation. Cardiovascular: Reports chest pain, shortness of breath, Heart tones S1 S2 present Edema is absent. Rhythm is sinus rhythm. Respiratory: Reports shortness of breath at rest Airway is patent Respiratory effort is shallow, Respiratory pattern is tachypnea Breath sounds are coarse in left posterior lower lobe, right posterior middle lobe and right posterior lower lobe Denies cough. GI: Abdomen is round non-distended, Bowel sounds present X 4 quads. Abd is soft and non tender X 4 quads. : No signs and/or symptoms were reported regarding the genitourinary system. EENT: No signs and/or symptoms were reported regarding the EENT system. Derm: Skin is dry, Skin is normal, Skin temperature is warm. Musculoskeletal: Range of motion: intact in all extremities. 09:40 Reassessment: Hyperventilation noted, pt appears anxious, sitting up in bed. DIESEL LUBE TECH was aa5 notified. . 09:55 Reassessment: Pt appears calm at this time, states feeling better, respirations even aa5 and unlabored. . 10:05 Reassessment: Pt taken to x-ray via wheelchair, with mask on. . aa5 10:20 Reassessment: Droplet precautions initiated per DIESEL LUBE TECH . aa5 11:35 Reassessment: Entered pt's room at 1048 and exited pt's room at 1135 (administered aa5 medications, collected add-on labs, collected urine specimen). . 11:35 Neuro: Level of Consciousness is awake, alert, obeys commands, Oriented to person, aa5 place, time, situation. Respiratory: Airway is patent Respiratory effort is even, unlabored, Respiratory pattern is regular, symmetrical. Derm: Skin is dry, Skin is normal, Skin temperature is warm. 11:57 Reassessment: [facility]# received from [facility], ([phone]), called to lab. iw 12:00 Reassessment: Pt now resting in bed with eyes closed, respirations even and unlabored, aa5 skin is normal/warm/dry. . 12:40 Reassessment: Pt given lunch tray. Pt now sitting up in bed eating. . aa5 12:40 Neuro: Level of Consciousness is awake, alert, obeys commands, Oriented to person, aa5 place, time, situation. Respiratory: Airway is patent Respiratory effort is even, unlabored, Respiratory pattern is regular, symmetrical. Derm: Skin is dry, Skin is normal, Skin temperature is warm. 13:30 Reassessment: Pt resting in bed with eyes closed, respirations even and unlabored. . aa5 14:05 Reassessment: Awaiting room assignment, pt notified of wait time. . aa5 14:05 Neuro: Level of Consciousness is awake, alert, obeys commands, Oriented to person, aa5 place, time, situation. Respiratory: Airway is patent Respiratory effort is even, unlabored, Respiratory pattern is regular, symmetrical. Derm: Skin is dry, Skin is normal, Skin temperature is warm. 14:39 Reassessment: Dr. Monge at bedside. [facility] 14:40 Reassessment: Report given to CHELA Quiroga (ICU). aa5 15:00 Reassessment: Pt downgraded to med-surg/tele floor per Dr. Cabrera, general warehouse worker aa notified, awaiting room assignment. . 15:00 Reassessment: Pt notified of downgrade per and notified of wait time for aa5 room assignment. Pt sitting up in bed, equal and unlabored respirations, skin is normal/warm/dry. . 15:55 Neuro: Level of Consciousness is awake, alert, obeys commands, Oriented to person, aa5 place, time, situation. Respiratory: Airway is patent Respiratory effort is even, unlabored, Respiratory pattern is regular, symmetrical. Derm: Skin is dry, Skin is normal, Skin temperature is warm. Vital Signs: 09:07 BP 195 / 144; Pulse 67; Resp 18 S; Temp 98.0; Pulse Ox 98% on R/A; Weight 68.04 kg; iw Height 5 ft. 2 in. (157.48 cm); Pain 10/10; 09:45 BP 167 / 122; Pulse 68; Resp 30 S; Pulse Ox 98% on R/A; aa5 09:55 Resp 18 S; Pulse Ox 100% on R/A; aa5 11:00 BP 193 / 139; Pulse 69; Resp 18 S; Pulse Ox 100% on R/A; aa5 11:10 BP 194 / 147; Pulse 70; Resp 20 S; Pulse Ox 100% on R/A; aa5 11:20 BP 197 / 129; Pulse 71; Resp 22 S; Pulse Ox 99% on R/A; aa5 11:25 BP 183 / 128; Pulse 71; Resp 22 S; Temp 97.6(O); Pulse Ox 100% on 2 lpm NC; aa5 11:30 BP 179 / 121; Pulse 71; aa5 11:39 BP 156 / 112; Pulse 69; aa5 11:50 BP 158 / 106; Pulse 67; Resp 18 S; Pulse Ox 100% on 2 lpm NC; aa5 12:00 BP 158 / 111; Pulse 68; Resp 18 S; Pulse Ox 100% on 2 lpm NC; aa5 12:10 BP 149 / 104; Pulse 68; Resp 18 S; Pulse Ox 100% on 2 lpm NC; aa5 12:20 BP 150 / 96; Pulse 68; Resp 20 S; Pulse Ox 100% on 2 lpm NC; aa5 12:40 BP 166 / 109; Pulse 71; Resp 20 S; Pulse Ox 100% on 2 lpm NC; aa5 13:00 BP 159 / 103; Pulse 70; Resp 20 S; Pulse Ox 100% on 2 lpm NC; aa5 13:40 BP 134 / 93; Pulse 69; Resp 16 S; Pulse Ox 100% on 2 lpm NC; aa5 14:00 BP 127 / 85; Pulse 69; Resp 18 S; Pulse Ox 100% on 2 lpm NC; aa5 14:20 BP 139 / 92; Pulse 68; Resp 16 S; Pulse Ox 100% on 2 lpm NC; aa5 14:40 BP 159 / 105; Pulse 62; Resp 16 S; Pulse Ox 100% on 2 lpm NC; aa5 15:00 BP 153 / 116; Pulse 74; Resp 18 S; Temp 98.5(O); Pulse Ox 100% on 2 lpm NC; aa5 15:20 BP 176 / 123; Pulse 67; Resp 18 S; Pulse Ox 100% on 2 lpm NC; aa5 15:40 BP 185 / 119; Pulse 73; Resp 18 S; Pulse Ox 100% on 2 lpm NC; aa5 15:55 BP 160 / 105; Pulse 70; Resp 16 S; Pulse Ox 100% on 2 lpm NC; aa5 09:07 Body Mass Index 27.44 (68.04 kg, 157.48 cm) iw ED Course: 08:47 Patient arrived in ED. ag5 08:48 Jovanna Paulino FNP-C is PHCP. kb 08:48 Oscar Shultz MD is Attending Physician. kb 09:03 Tarik Shepherd RN is Primary Nurse. jl7 09:05 Triage completed. iw 09:15 Patient has correct armband on for positive identification. Placed in gown. Bed in low aa5 position. Call light in reach. Side rails up X2. monitor technician on. Pulse ox on. NIBP on. 09:15 Arm band placed on. aa5 09:16 Amada Gage, RN is Primary Nurse. aa5 09:23 Jovanna Paulino FNP-C is PHCP. kb 09:23 Oscar Shultz MD is Attending Physician. kb 09:25 EKG done, by library technician. reviewed by Jovanna GOLDSTEIN. at1 09:30 Patient maintains SpO2 saturation greater than 95% on room air. aa5 09:30 No provider procedures requiring assistance completed. aa5 09:40 Initial lab(s) drawn, by va, sent to lab. Flu and/or RSV swab sent to lab. Strep swab aa5 sent to lab. Inserted saline lock: 22 gauge in right antecubital area, using aseptic technique. Blood collected. 10:12 Chest Pa And Lat (2 Views) XRAY In Process Unspecified. EDMS 11:00 Add-on labs collected and sent to lab. Inserted saline lock: 20 gauge in left aa5 antecubital area, using aseptic technique. 11:00 COVID-19 collected and sent to lab. aa5 11:42 US Rp Exam Complete In Process Unspecified. EDMS 12:14 Eren Cabrera MD is Hospitalizing Provider. kb 16:00 Patient admitted, IV remains in place. aa5 Administered Medications: 09:46 Drug: Ativan 0.5 mg Route: IVP; Site: right antecubital; aa5 09:55 Follow up: Response: No adverse reaction; Marked relief of symptoms aa5 10:50 Drug: Lasix 20 mg Route: IVP; Site: left antecubital; aa5 11:00 Follow up: Response: No adverse reaction aa5 11:00 Drug: Potassium Chloride 20 mEq Route: IV; Rate: calculated rate; Site: left aa5 antecubital; 11:00 Drug: Cardene 5 mg/hr Route: IV; Rate: calculated rate; Site: right antecubital; aa5 11:20 Follow up: drip started at 5mg/hr, increased to 7mg/hr at 1120 aa5 14:00 Follow up: Drip decreased to 4mg/hr aa5 15:00 Follow up: IV Status: Order to discontinue infusion aa5 11:12 Drug: Tamiflu 75 mg Route: PO; aa5 12:05 Follow up: Response: No adverse reaction aa5 11:20 Drug: Ativan 0.5 mg Route: IVP; Site: right antecubital; aa5 11:35 Follow up: Response: No adverse reaction; Marked relief of symptoms aa5 15:00 Drug: Norvasc 10 mg Route: PO; aa5 15:40 Follow up: Response: No adverse reaction aa5 15:40 Drug: hydrALAZINE 10 mg Route: IV; Rate: per protocol; Site: right antecubital; aa5 16:00 Follow up: Response: No adverse reaction; Blood pressure is lowered aa5 15:40 Drug: hydrALAZINE 10 mg Route: PO; aa5 16:00 Follow up: Response: No adverse reaction; Blood pressure is lowered aa5 Intake: Output: 11:35 Urine: 300ml (Voided); Total: 300ml. aa5 13:00 Urine: 300ml (Voided); Total: 600ml. aa5 15:55 Urine: 200ml (Voided); Total: 800ml. aa5 Outcome: 12:15 Decision to Hospitalize by Provider. kb 16:00 Admitted to Tele accompanied by tech, via wheelchair, with chart, Report called to aaSreekanth Hubbard RN 16:00 Condition: stable 16:00 Instructed on the need for admit, Demonstrated understanding of instructions. 16:18 Patient left the ED. aa5 Signatures: Dispatcher [employer] EDJovanna Groves, MANAGER BODY-C MANAGER BODY-Iona Vallecillo, RN Amada Enciso RN RN aa5 Emily Rogers, business leader EKG Tat1 Tarik Shepherd RN RN jl7 Juan A Nguyen ag5 Corrections: (The following items were deleted from the chart) 09:17 09:07 Pulse 67bpm; Resp 18bpm; Spontaneous; Pulse Ox 98% RA; Temp 98.0F; 68.04 kg; iw Height 5 ft. 2 in.; BMI: 27.4; Pain 10/10; iw 12:01 09:15 Pain: Complains of pain in mid-sternal area Pain does not radiate. Pain currently aa5 is 10 out of 10 on a pain scale. Quality of pain is described as pressure, Pain began Is intermittent, aa5 16:25 16:23 Patient left the ED. aa5 aa5
--- NOTE | 2019-09-24 14:26 | P.CNS ---
Date of Consult: 09/24/19 Reason for Consult: MARLY Requesting Physician: Oscar Shultz Chief Complaint: Dyspnea History of Present Illness: 34 yo BF HTN presents to the ER with one week of moderate, progressive dyspnea with associated malaise and diarrhea. Reports good PO intake with variable urine output. No urinary complaints. Denies CKD. Denies a history of NSAIDs. +myalgia +weakness +fatigue 09:32 This 34 yrs old Black Female presents to ER via Ambulatory with complaints of Chest kb Tightness. 09:33 The patient has shortness of breath at rest. Onset: The symptoms/episode began/occurred kb yesterday. Duration: The symptoms are continuous. The patient's shortness of breath is aggravated by nothing, is alleviated by nothing. Associated signs and symptoms: The patient has no apparent associated signs or symptoms. Severity of symptoms: At their worst the symptoms were moderate in the emergency department the symptoms are unchanged. The patient has not experienced similar symptoms in the past. The patient has not recently seen a physician. 09:33 Pt reports shortness of breath that started yesterday. Reports fatigue, bodyaches, and kb her body feels heavy. Allergies No Known Allergies Allergy (Unverified 09/24/19 12:51) Home medications list reviewed: Yes Home Medications: Amlodipine [Norvasc] 5 mg PO DAILY 09/24/19 Labetalol HCl [Trandate] 200 mg PO BID 09/24/19 - Past Medical/Surgical History Diabetic: No - Social History Smoking Status: Current some day smoker Review of Systems 10-point ROS is otherwise unremarkable General: Weakness, Malaise Respiratory: SOB with Excertion Cardiovascular: Light Headedness Gastrointestinal: Nausea, Diarrhea Neurological: Weakness Physical Examination General: Oriented x3, Cooperative HEENT: Atraumatic Neck: Supple Respiratory: Clear to auscultation bilaterally, Normal air movement Cardiovascular: No edema, Regular rate/rhythm Gastrointestinal: Soft and benign, Non-distended Musculoskeletal: No clubbing, No contractures Integumentary: No rashes, No cyanosis Neurological: Normal speech Lymphatics: No axilla or inguinal lymphadenopathy Laboratory Data (last 24 hrs) 09/24/19 11:08: PT 12.1, INR 1.03 09/24/19 11:08: Magnesium 2.1, Total Bilirubin 0.3, AST 72 H, ALT 90 H, Alkaline Phosphatase 125 H 09/24/19 09:40: Sodium 138, Potassium 2.8 L*, BUN 49 H, Creatinine 5.19 H*, Glucose 113 H 09/24/19 09:40: WBC 7.2, Hgb 10.3 L, Hct 31.9 L, Plt Count 270 Imagings Data: EXAM DESCRIPTION: US - Renal Ultrasound-Complete - 09/24/2019 11:52 am CLINICAL HISTORY: Acute renal insufficiency COMPARISON: None. FINDINGS: The right kidney measures 8 cm with an increased echotexture. The left kidney measures 8 cm with an increased echotexture. Hydronephrosis is not seen. No gross abnormality of bladder is seen IMPRESSION: Increased renal echotexture consistent with parenchymal disease. EXAM DESCRIPTION: Joseph Fraire (2 Views)09/24/2019 10:13 am CLINICAL HISTORY: Shortness of breath COMPARISON: August 2019 R FINDINGS: Mild to moderate bilateral interstitial lung opacities. The heart is mildly to moderately enlarged IMPRESSION: Mild to moderate bilateral interstitial lung opacities may represent pulmonary edema, viral pneumonia or pneumonitis Conclusions/Impression: A/ MARLY in the setting of uncontrolled HTN versus progressive CKD. Proteinuria. Hematuria? CKD? Hypokalemia HTN emergency. Hyperglycemia Acute hepatitis Anemia in chronic illness. Microcytosis. P/ Continue current POC and Medications. Give potassium. Start Metoprolol and Soxazosin. No NSAIDs. AM labs. Daily weight. Thank you kindly for the consultation.
[2019-09-24] MEDS: AMLODIPINE 5 MG TAB PO SCH ×2 (14:53→19:26)
--- NOTE | 2019-09-24 14:53 | P.HP ---
Certification for Inpatient Patient admitted to: Inpatient With expected LOS: >2 Midnights Practitioner: I am a practitioner with admitting privileges, knowledge of patient current condition, hospital course, and medical plan of care. Services: Services provided to patient in accordance with Admission requirements found in Title 42 Section 412.3 of the Code of Federal Regulations Patient History Date of Service: 09/24/19 (Hospitalist) Reason for admission: Dyspnea,ARF History of Present Illness: Pt is 34 yrs of age AW acute SOB. Hx of HTN. No PCP. No fever or chills. PT ARF with volume overload Allergies No Known Allergies Allergy (Unverified 09/24/19 12:51) Home Medications: Amlodipine [Norvasc] 5 mg PO DAILY 09/24/19 Labetalol HCl [Trandate] 200 mg PO BID 09/24/19 - Past Medical/Surgical History -: HTN Past Surgical History: Patient denies surgical history Review of Systems 10-point ROS is otherwise unremarkable General: Weakness Respiratory: Shortness of Breath Cardiovascular: Edema Physical Examination - Physical Exam General: Alert, Mild distress Neck: Supple Respiratory: Crackles/rales Cardiovascular: No edema, Normal S1 S2 - Studies Laboratory Data (last 24 hrs) 09/24/19 11:08: PT 12.1, INR 1.03 09/24/19 11:08: Magnesium 2.1, Total Bilirubin 0.3, AST 72 H, ALT 90 H, Alkaline Phosphatase 125 H 09/24/19 09:40: Sodium 138, Potassium 2.8 L*, BUN 49 H, Creatinine 5.19 H*, Glucose 113 H 09/24/19 09:40: WBC 7.2, Hgb 10.3 L, Hct 31.9 L, Plt Count 270 Microbiology Data (last 24 hrs): 09/24/19 10:58 Nasopharnyx Coronavirus COVID-19 PCR - Final 09/24/19 09:40 Throat Group A Streptococcus Rapid Screen - Final 09/24/19 09:40 Nasopharnyx Influenza Type A Antigen Screen - Final 09/24/19 09:40 Nasopharnyx Influenza Type B Antigen Screen - Final Assessment and Plan - Problems (Diagnosis) (1) Acute renal failure Current Visit: Yes Status: Acute Plan: Pt is 34 yrs of age AW ARF ,volume overload and CHF. sec to HTN. Renal ultrasound Chronic changes. NE of sepsis. No PCP No meds for HTN. UA neg for infection Qualifiers: Acute renal failure type: unspecified Qualified Code(s): N17.9 - Acute kidney failure, unspecified - Advance Directives Does patient have a Living Will: No Does patient have a Durable POA for Healthcare: No
[2019-09-24] MEDS ORDERED: HYDRALAZINE HCL 20 MG/ML VIAL ONE (15:38)
[2019-09-24] MEDS ORDERED: HYDRALAZINE HCL 10 MG TABLET ONE (15:39)
--- NOTE | 2019-09-24 16:17 | EKG ---
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
[2019-09-24] MEDS ORDERED: ONDANSETRON 4 MG/2 ML VIAL IV PRN (16:42)
[2019-09-24] MEDS: HYDROCODONE/APAP 5/325 MG TAB PO PRN (17:21)
[2019-09-24] MEDS: HYDRALAZINE HCL 20 MG/ML VIAL IV PRN (19:26)
[2019-09-24] MEDS ORDERED: POTASSIUM CL SA 10 MEQ TAB PO ONE (20:18)
[2019-09-24] MEDS: METOPROLOL TAR 25 MG TAB PO SCH (21:16)
[2019-09-24] MEDS: DOXAZOSIN 2 MG TAB PO SCH (21:16)
[2019-09-24] MEDS: MORPHINE 2 MG/ML SYR IV PRN (21:18)
[2019-09-25] MEDS: MORPHINE 2 MG/ML SYR IV PRN ×5 (00:11→12:18)
[2019-09-25 04:24] LABS: Bilirubin Total 0.4 mg/dL (0.2-1.0); Phosphorus 3.7 mg/dL (2.5-4.9); Potassium 3.4 mmol/L (3.5-5.1); Protein, Total 6.8 g/dL (6.4-8.2)
[2019-09-25] MEDS: HYDROCODONE/APAP 5/325 MG TAB PO PRN (04:42)
[2019-09-25 04:56] VITALS: BMI 27.8
[2019-09-25 07:19] LABS: Urine Appearance CLEAR; Urine Bilirubin NEGATIVE (NEG); Urine Blood 3+ (NEG); Urine Color YELLOW; Urine Glucose NEGATIVE (NEG); Urine Protein 1+ (NEG); Urine Urobilinogen 0.2 mg/dL (0.2-1.0); Urine pH 6.5 (5.0-7.0)
[2019-09-25] MEDS: AMLODIPINE 5 MG TAB PO SCH ×2 (08:02→21:50)
[2019-09-25] MEDS: DOXAZOSIN 2 MG TAB PO SCH ×2 (08:05→21:50)
[2019-09-25] MEDS: METOPROLOL TAR 25 MG TAB PO SCH ×2 (08:05→21:51)
[2019-09-25] MEDS: FUROSEMIDE 40 MG/4 ML VIAL IV SCH (08:06)
[2019-09-25 08:37] LABS: Urine Bacteria 20-50 /HPF (<20); Urine Culture Reflex Order REFLEXED; Urine RBC >50 /HPF (NONE SEEN)
[2019-09-25 08:57] LABS: UR MICROALBUMIN 16.7 mg/dL (< 1.9)
[2019-09-25] MEDS: OSELTAMIVIR PHOSPHATE 30 MG/5 ML SUSPENSION UD PO SCH (12:17)
[2019-09-25] MEDS: HYDRALAZINE HCL 20 MG/ML VIAL IV PRN (12:17)
[2019-09-25] MEDS ORDERED: TRAMADOL HCL 50 MG TAB PO PRN (16:52)
[2019-09-25] MEDS: CEFTRIAXONE/SWI 1gm 1 GM/10 ML SYR IVP SCH (18:35)
[2019-09-25] MEDS ORDERED: POTASSIUM CL SA 10 MEQ TAB PO ONE (21:43)
--- NOTE | 2019-09-25 21:51 | PN ---
Date of Progress Note: 09/25/2019 Subjective: Informed consent, risks, benefits, and alternatives to virtual video visit were explained to the patient and the patient consented to this modality of care. Visit was carried out in a secure line and all parties in the room were identified and approved by the patient prior to the consult. No technical issues were experienced. Level of care equipment in-person care was achieved. Location of the patient and the provider both are [place], [place] at [facility]. Patient understands that the video call may not be 100% secure. Based on the current COVID-19 outbreak and current CDC; state, local, and [facility] guidance to social distancing and self-isolation of at-risk person, have identified the need for telehealth service for this patient, Ms. Nely Quinones and encounter was completed as such. All questions were answered and case discussed with RN and Dr. Monge with Nephrology. Patient states she feels slightly better than yesterday. Still complaining of headache, currently on morphine. Physical Examination: Vital Signs: Temperature 98.4, heart rate 67, blood pressure 133/80, respirations 16, O2 99% on room air. General: Slightly ill-appearing female. Does not appear to be in any respiratory distress. Respiratory: Patient is not using any accessory muscles. Does not appear to be in any acute distress. Extremities: Moving all 4 extremities. Neuro: Speech is normal. Psych: Normal Affect. Cooperative Laboratory Data: Sodium 140, potassium 3.4, chloride 106, CO2 of 24, BUN 47, creatinine 5.19, glucose 124, uric acid 8, calcium 8.4, phosphorus 3.7. Iron 26, TIBC 385, transferrin 275. AST 38, ALT 69, albumin 3. Serology and immunology panels are pending. UA; trace leukocyte esterase, greater than 50 rbc's, 20 to 50 bacteria, 5 to 10 squamous epithelial cells. Urine test is negative. Assessment: A 34-year-old female with: 1. Influenza B. We will continue with Tamiflu renally dosed. 2. Acute respiratory distress likely due to influenza and possibly due to COVID-19. Patient is under investigation. The COVID testing is pending at this time. Currently, patient is on room air. We will continue with supportive treatment for now. 3. Acute versus acute on chronic kidney injury. Creatinine is 5.19. Appreciate Dr. Monge's input. This may be related to complications from her long-standing hypertension and noncompliance. 4. Hypokalemia, replace and monitor. 5. Mild troponin elevation, likely due to her current medical condition. Doubt any acute coronary syndrome. Patient denies any chest pain. 6. Essential hypertension, hypertensive urgency, not well controlled in the 190s/120s. Blood pressure is now better. Medications have been adjusted. We will continue with IV hydralazine. Cardura has been added and beta-blockers have been changed. 7. Headache, unclear etiology. We will wean off morphine and try tramadol. 8. Microcytic anemia. Patient currently on her menstrual cycle. Iron panel shows low iron level. 9. Acute cystitis with hematuria, likely secondary to her menstrual cycle. We will start on Rocephin and follow up on urine cultures. 10. Deep vein thrombosis prophylaxis addressed. Plan: Repeat CBC in a.m. We will discuss further with Nephrology regarding kidney function. Anticipate discharge in the next 24 to 48 hours depending on clinical improvement, kidney function, and COVID result. Patient seen virtually. The above assessment and plan is based on chart review history of present illness and physical exam findings catheter during this encounter. Every effort has been made to make this encounter comprehensive to the best of our abilities KEVIN Voice ID: [id number] Report ID: [id number] GERALDO
[2019-09-25] MEDS: HYDROCODONE/APAP 7.5/325 MG TAB PO PRN (21:52)
--- NOTE | 2019-09-25 21:54 | P.PN ---
Date of Service: 09/25/19 Vital Signs Temp Pulse Resp BP Pulse Ox 98.2 F 64 16 147/92 H 97 09/25/19 20:00 09/25/19 20:00 09/25/19 20:00 09/25/19 20:00 09/25/19 20:00 Medications Hydrocodone Bitart/Acetaminophen ([place] 7.5/325 Mg) 1 tab PO Q4H PRN PRN Reason: Pain scale 8-10 (Severe) Stop: 10/25/19 20:34 Amlodipine Besylate (Norvasc) 5 mg PO BID [facility] Stop: 10/24/19 14:54 Last Admin: 09/25/19 08:02 Dose: 5 mg Documented by: Doxazosin Mesylate (Cardura) 2 mg PO BID [facility] Stop: 10/24/19 21:01 Last Admin: 09/25/19 08:05 Dose: 2 mg Documented by: Hydralazine HCl (Apresoline) 10 mg IV Q4HP PRN PRN Reason: Titrate to SBP (MUST DEFINE) Stop: 10/24/19 14:54 Last Admin: 09/24/19 19:26 Dose: 10 mg Documented by: Ceftriaxone Sodium/Sodium Chloride (Rocephin 1 Gm/10 Ml Swi Ivp) 1 gm in 10 mls @ 600 mls/hr IVP DAILY [facility]; Protocol Stop: 10/25/19 18:31 Last Admin: 09/25/19 18:35 Dose: 10 mls Documented by: Sodium Chloride (Sodium Chloride 0.45%) 1,000 mls @ 100 mls/hr IV .Q10H [facility] Stop: 10/25/19 22:01 Metoprolol Tartrate (Lopressor) 12.5 mg PO BID [facility] Stop: 10/24/19 21:01 Last Admin: 09/25/19 08:05 Dose: 12.5 mg Documented by: Ondansetron HCl (Zofran) 4 mg IV Q6H PRN PRN Reason: NAUSEA / VOMITING Stop: 10/24/19 16:43 Last Admin: 09/24/19 16:49 Dose: 4 mg Documented by: Oseltamivir Phosphate (Tamiflu Suspension) 30 mg PO DAILY [facility] Stop: 09/28/19 09:01 Last Admin: 09/25/19 12:17 Dose: 30 mg Documented by: Potassium Chloride (Klor-Con 10 Meq Tab) 20 meq PO 1X ONE Stop: 09/25/19 21:44 Sodium Chloride (Normal Saline Flush) 10 ml IV BID [facility] Stop: 10/24/19 21:01 Last Admin: 09/25/19 07:58 Dose: 10 ml Documented by: Microbiology Results 09/24/19 09:40 Throat Culture & Sensitivity - Preliminary NORMAL UPPER RESPIRATORY JOSE MANUEL GROWN. 09/24/19 10:58 Nasopharnyx Coronavirus COVID-19 PCR - Final 09/24/19 09:40 Throat Group A Streptococcus Rapid Screen - Final 09/24/19 09:40 Nasopharnyx Influenza Type A Antigen Screen - Final 09/24/19 09:40 Nasopharnyx Influenza Type B Antigen Screen - Final Assessment/ Plan: Nephrology Feeling better today. Reports good urine output. CPS stable without CP or SOB. No acute events overnight. Vitals, medications, blood work and imaging reviewed in the chart. Physical Examination General: Oriented x3, Cooperative HEENT: Atraumatic Neck: Supple Respiratory: Clear to auscultation bilaterally, Normal air movement Cardiovascular: No edema, Regular rate/rhythm Gastrointestinal: Soft and benign, Non-distended Musculoskeletal: No clubbing, No contractures Integumentary: No rashes, No cyanosis Neurological: Normal speech Lymphatics: No axilla or inguinal lymphadenopathy Laboratory Data (last 24 hrs) 09/24/19 11:08: PT 12.1, INR 1.03 09/24/19 11:08: Magnesium 2.1, Total Bilirubin 0.3, AST 72 H, ALT 90 H, Alkaline Phosphatase 125 H 09/24/19 09:40: Sodium 138, Potassium 2.8 L*, BUN 49 H, Creatinine 5.19 H*, Glucose 113 H 09/24/19 09:40: WBC 7.2, Hgb 10.3 L, Hct 31.9 L, Plt Count 270 Imagings Data: EXAM DESCRIPTION: US - Renal Ultrasound-Complete - 09/24/2019 11:52 am CLINICAL HISTORY: Acute renal insufficiency COMPARISON: None. FINDINGS: The right kidney measures 8 cm with an increased echotexture. The left kidney measures 8 cm with an increased echotexture. Hydronephrosis is not seen. No gross abnormality of bladder is seen IMPRESSION: Increased renal echotexture consistent with parenchymal disease. EXAM DESCRIPTION: Joseph Horton And Krissy (2 Views)09/24/2019 10:13 am CLINICAL HISTORY: Shortness of breath COMPARISON: August 2019 R FINDINGS: Mild to moderate bilateral interstitial lung opacities. The heart is mildly to moderately enlarged IMPRESSION: Mild to moderate bilateral interstitial lung opacities may represent pulmonary edema, viral pneumonia or pneumonitis Conclusions/Impression: A/ MARLY suspicious for ATN. Diff Dx: Progressive CKD in the setting of HTN. Possible nephritis in the setting of hematuria and HTN. Proteinuria. Hematuria may be related to menses. CKD? Hypokalemia HTN emergency. Hyperglycemia Acute hepatitis Anemia in chronic illness. Iron deficiency. P/ Continue current POC and Medications. Give potassium today. Stop furosemide. Start IVF. Will titrate antihypertensive therapy as needed. Start Calcitriol. May benefit from IV Iron. No NSAIDs. AM labs. Daily weight. Case reviewed with Dr. Mary
[2019-09-25] MEDS: NACHLORIDE 0.45% 1,000 ML IV SCH (23:11)
[2019-09-26] MEDS ORDERED: HYDRALAZINE HCL 20 MG/ML VIAL IV PRN (01:45)
[2019-09-26] MEDS: MORPHINE 2 MG/ML SYR IV PRN ×4 (02:15→22:06)
[2019-09-26 02:43] LABS: Absolute Lymphocytes (CBC) 1.8 K/uL (0.7-4.9); Basophils % 1.3 % (0-1.3); Hematocrit 28.2 % (36.0-45.0); Lymphocytes % 26.7 % (15.3-44.8); MPV 9.7 fL (7.6-11.3); RBC Red Blood Cell Count 3.55 M/uL (3.86-4.86)
[2019-09-26 03:26] LABS: Bilirubin Total 0.2 mg/dL (0.2-1.0); Potassium 3.4 mmol/L (3.5-5.1); Protein, Total 6.9 g/dL (6.4-8.2)
--- NOTE | 2019-09-26 07:19 | RAD REPORT ---
EXAM DESCRIPTION: CT - Head Brain Wo Cont - 09/26/2019 5:51 am CLINICAL HISTORY: recurrent headache , HTN, renal failure COMPARISON: No comparisons TECHNIQUE: Axial 5 mm thick images of the head were obtained without IV contrast. All CT scans are performed using dose optimization technique as appropriate and may include automated exposure control or mA/KV adjustment according to patient size. FINDINGS: No intracranial hemorrhage, mass, edema or shift of mid-line structures. No acute infarcti on changes seen. No abnormal extra-axial fluid collections. Ventricles are normal. Mastoid air cells and visualized portions of the paranasal sinuses are clear. No acute bony findings. IMPRESSION: Negative non-contrast CT head examination.
[2019-09-26] MEDS: CALCITROL 0.25 MCG CAP PO SCH (08:10)
[2019-09-26] MEDS: DOXAZOSIN 2 MG TAB PO SCH ×2 (08:10→20:55)
[2019-09-26] MEDS: VITAMIN D 5,000 UNIT CAP PO SCH (08:10)
[2019-09-26] MEDS: METOPROLOL TAR 25 MG TAB PO SCH ×2 (08:11→20:56)
[2019-09-26] MEDS: AMLODIPINE 5 MG TAB PO SCH (08:11)
[2019-09-26] MEDS: NACHLORIDE 0.45% 1,000 ML IV SCH ×2 (08:12→16:28)
[2019-09-26] MEDS: CEFTRIAXONE/SWI 1gm 1 GM/10 ML SYR IVP SCH (08:13)
[2019-09-26] MEDS ORDERED: POTASSIUM CL SA 10 MEQ TAB PO ONE (09:06)
[2019-09-26] MEDS ORDERED: LACTULOSE 20 GM/30 ML UCUP PO ONE (09:20)
[2019-09-26] MEDS: OSELTAMIVIR PHOSPHATE 30 MG/5 ML SUSPENSION UD PO SCH (09:48)
[2019-09-26] MEDS: AMLODIPINE 10 MG TAB PO SCH ×2 (09:49→20:55)
--- NOTE | 2019-09-26 16:00 | P.PN ---
Subjective Date of Service: 09/26/19 Chief Complaint: Dyspnea Subjective: Improving Patient seen and examined chart reviewed and case discussed with RN and Dr. Monge. Headache is better. Denies any shortness of breath. COVID 19 result negative Review of Systems 10-point ROS is otherwise unremarkable Respiratory: As per HPI Physical Examination - Vital Signs Temperature: 98.5 F Blood Pressure: 150/95 Pulse: 66 Respirations: 16 Pulse Ox (%): 99 - Physical Exam General: Alert, In no apparent distress, Oriented x3 HEENT: Atraumatic, PERRLA, EOMI Neck: Supple, JVD not distended Respiratory: Clear to auscultation bilaterally, Normal air movement, Other (No wheezing or stridor) Cardiovascular: No edema, Normal pulses, Regular rate/rhythm, Normal S1 S2 Gastrointestinal: Normal bowel sounds, Soft and benign, Non-distended, No tenderness Musculoskeletal: No tenderness Integumentary: No rashes, No erythema Neurological: Normal speech, Normal strength at 5/5 x4 extr, Normal tone, Normal affect - Studies Microbiology Data (last 24 hrs): 09/24/19 09:40 Throat Culture & Sensitivity - Final NORMAL UPPER RESPIRATORY JOSE MANUEL GROWN. Medications List Reviewed: Yes Assessment And Plan - Plan 1. Influenza B. We will continue with Tamiflu renally dosed. 2. Acute respiratory distress likely due to influenza. COVID-19 ruled out. Currently, patient is on room air. We will continue with supportive treatment for now. 3. Acute versus acute on chronic kidney injury. Creatinine is 5.6. Appreciate Dr. Monge's input. This may be related to complications from her long-standing hypertension and noncompliance. This may be her baseline. Patient making good urine output electrolytes are stable. 4. Hypokalemia, replace and monitor. 5. Mild troponin elevation, likely due to her current medical condition. Doubt any acute coronary syndrome. Patient denies any chest pain. 6. Essential hypertension, hypertensive urgency, not well controlled in the 190s/120s. Blood pressure is now better. Medications have been adjusted. We will continue with IV hydralazine. Cardura has been added and beta-blockers have been changed. Will continue to monitor 7. Headache, unclear etiology. Improved currently on [place] p.r.n.. Head CT scan negative 8. Microcytic anemia. Patient currently on her menstrual cycle. Iron panel shows low iron level. Recommend oral iron supplementation 9. Acute cystitis with hematuria, likely secondary to her menstrual cycle. We will start on Rocephin. urine cultures showing Gram negative rods. Will await ID and sensitivity. 10. Deep vein thrombosis prophylaxis addressed. Likely Dc in the next 24 hr once cleared by nephrology
[2019-09-26] MEDS ORDERED: SOD FERRIC GLUC COMPLX/SUCROSE 125 MG in NA CHLORIDE 0.9% 100 ML IV ONE (20:28)
--- NOTE | 2019-09-26 20:31 | P.PN ---
Date of Service: 09/26/19 Vital Signs Temp Pulse Resp BP Pulse Ox 98.8 F 65 16 137/79 99 09/26/19 16:00 09/26/19 16:00 09/26/19 16:00 09/26/19 16:00 09/26/19 16:00 Medications Hydrocodone Bitart/Acetaminophen ([place] 7.5/325 Mg) 1 tab PO Q4H PRN PRN Reason: Pain scale 8-10 (Severe) Stop: 10/25/19 20:34 Last Admin: 09/25/19 21:52 Dose: 1 tab Documented by: Amlodipine Besylate (Norvasc) 10 mg PO BID [facility] Stop: 10/26/19 09:16 Last Admin: 09/26/19 09:49 Dose: 5 mg Documented by: Calcitriol (Rocaltrol) 0.5 mcg PO DAILY [facility] Stop: 10/26/19 09:01 Last Admin: 09/26/19 08:10 Dose: 0.5 mcg Documented by: Cholecalciferol (Vitamin D 5,000 Iu Cap) 5,000 unit PO DAILY [facility] Stop: 10/26/19 09:01 Last Admin: 09/26/19 08:10 Dose: 5,000 unit Documented by: Docusate Sodium (Colace Cap) 100 mg PO BID [facility] Stop: 10/26/19 21:01 Doxazosin Mesylate (Cardura) 2 mg PO BID [facility] Stop: 10/24/19 21:01 Last Admin: 09/26/19 08:10 Dose: 2 mg Documented by: Hydralazine HCl (Apresoline) 10 mg IV Q6HP PRN PRN Reason: Titrate to SBP (MUST DEFINE) Stop: 10/26/19 01:46 Ceftriaxone Sodium/Sodium Chloride (Rocephin 1 Gm/10 Ml Swi Ivp) 1 gm in 10 mls @ 600 mls/hr IVP DAILY [facility]; Protocol Stop: 10/25/19 18:31 Last Admin: 09/26/19 08:13 Dose: 10 mls Documented by: Sodium Chloride (Sodium Chloride 0.45%) 1,000 mls @ 100 mls/hr IV .Q10H [facility] Stop: 10/25/19 22:01 Last Admin: 09/26/19 16:28 Dose: 1,000 mls Documented by: Ferric Sodium Gluconate Complex 125 mg/ Sodium Chloride 110 mls @ 100 mls/hr IV ONCE ONE Stop: 09/26/19 21:33 Metoprolol Tartrate (Lopressor) 12.5 mg PO BID [facility] Stop: 10/24/19 21:01 Last Admin: 09/26/19 08:11 Dose: 12.5 mg Documented by: Morphine Sulfate (Morphine Sulfate) 2 mg IV Q4H PRN PRN Reason: Pain scale 5-7 (Moderate) Stop: 10/26/19 01:46 Last Admin: 09/26/19 09:50 Dose: 2 mg Documented by: Ondansetron HCl (Zofran) 4 mg IV Q6H PRN PRN Reason: NAUSEA / VOMITING Stop: 10/24/19 16:43 Last Admin: 09/24/19 16:49 Dose: 4 mg Documented by: Oseltamivir Phosphate (Tamiflu Suspension) 30 mg PO DAILY [facility] Stop: 09/28/19 09:01 Last Admin: 09/26/19 09:48 Dose: 30 mg Documented by: Sodium Chloride (Normal Saline Flush) 10 ml IV BID [facility] Stop: 10/24/19 21:01 Last Admin: 09/26/19 08:12 Dose: 10 ml Documented by: Microbiology Results 09/24/19 09:40 Throat Culture & Sensitivity - Final NORMAL UPPER RESPIRATORY JOSE MANUEL GROWN. 09/24/19 10:58 Nasopharnyx Coronavirus COVID-19 PCR - Final 09/24/19 09:40 Throat Group A Streptococcus Rapid Screen - Final 09/24/19 09:40 Nasopharnyx Influenza Type A Antigen Screen - Final 09/24/19 09:40 Nasopharnyx Influenza Type B Antigen Screen - Final Assessment/ Plan: Nephrology Doing well. Reports good urine output. +Constipation CPS stable without CP or SOB. No acute events overnight. Vitals, medications, blood work and imaging reviewed in the chart. Physical Examination General: Oriented x3, Cooperative HEENT: Atraumatic Neck: Supple Respiratory: Clear to auscultation bilaterally, Normal air movement Cardiovascular: No edema, Regular rate/rhythm Gastrointestinal: Soft and benign, Non-distended Musculoskeletal: No clubbing, No contractures Integumentary: No rashes, No cyanosis Neurological: Normal speech Lymphatics: No axilla or inguinal lymphadenopathy Laboratory Data (last 24 hrs) 09/24/19 11:08: PT 12.1, INR 1.03 09/24/19 11:08: Magnesium 2.1, Total Bilirubin 0.3, AST 72 H, ALT 90 H, Alkaline Phosphatase 125 H 09/24/19 09:40: Sodium 138, Potassium 2.8 L*, BUN 49 H, Creatinine 5.19 H*, Glucose 113 H 09/24/19 09:40: WBC 7.2, Hgb 10.3 L, Hct 31.9 L, Plt Count 270 Imagings Data: EXAM DESCRIPTION: US - Renal Ultrasound-Complete - 09/24/2019 11:52 am CLINICAL HISTORY: Acute renal insufficiency COMPARISON: None. FINDINGS: The right kidney measures 8 cm with an increased echotexture. The left kidney measures 8 cm with an increased echotexture. Hydronephrosis is not seen. No gross abnormality of bladder is seen IMPRESSION: Increased renal echotexture consistent with parenchymal disease. EXAM DESCRIPTION: Joseph Pa And Lat (2 Views)09/24/2019 10:13 am CLINICAL HISTORY: Shortness of breath COMPARISON: August 2019 R FINDINGS: Mild to moderate bilateral interstitial lung opacities. The heart is mildly to moderately enlarged IMPRESSION: Mild to moderate bilateral interstitial lung opacities may represent pulmonary edema, viral pneumonia or pneumonitis Conclusions/Impression: A/ MARLY suspicious for ATN. Diff Dx: Progressive CKD in the setting of HTN. Possible nephritis in the setting of hematuria and HTN. Proteinuria. Hematuria may be related to menses. CKD? Hypokalemia HTN emergency. Hyperglycemia Acute hepatitis Anemia in chronic illness. Iron deficiency. P/ Continue current POC and Medications. Continue IVF. Increase Amlodipine. Replete potassium. Start Colace. Give Lactulose. Give IV iron. Retacrit X1. No NSAIDs. AM labs. Daily weight.
[2019-09-26] MEDS: DOCUSATE NA 100 MG CAP PO SCH (20:55)
[2019-09-26 21:07] LABS: Absolute Lymphocytes (CBC) 1.5 K/uL (0.7-4.9); Basophils % 1.3 % (0-1.3); Hematocrit 28.6 % (36.0-45.0); Lymphocytes % 23.1 % (15.3-44.8); MPV 9.6 fL (7.6-11.3)
[2019-09-26 21:30] LABS: Blood Morphology Comment NOT SEEN (NOT SEEN); Platelet Estimate ADEQ
[2019-09-26] MEDS: HYDROCODONE/APAP 7.5/325 MG TAB PO PRN (21:38)
[2019-09-26] MEDS ORDERED: EPOETIN ALFA-EPBX 10,000 UNIT/ML VIAL SQ ONE (22:00)
[2019-09-27] MEDS: MORPHINE 2 MG/ML SYR IV PRN ×5 (01:32→20:59)
[2019-09-27 02:22] LABS: Urine Appearance CLEAR; Urine Bilirubin NEGATIVE (NEG); Urine Blood 1+ (NEG); Urine Color YELLOW; Urine Glucose NEGATIVE (NEG); Urine Protein 1+ (NEG); Urine Specific Gravity <=1.005 (1.005-1.030); Urine Urobilinogen 0.2 mg/dL (0.2-1.0)
[2019-09-27 02:42] LABS: Urine Bacteria <20 /HPF (<20); Urine Culture Reflex Order NOT NEEDED
[2019-09-27 02:56] LABS: HBsAG Nonreactive (Nonreactive)
[2019-09-27 05:49] LABS: Albumin 2.9 g/dL (3.4-5.0); Bilirubin Total 0.2 mg/dL (0.2-1.0); Potassium 3.6 mmol/L (3.5-5.1); Protein, Total 6.8 g/dL (6.4-8.2); Uric Acid 7.9 mg/dL (2.6-6.0)
[2019-09-27] MEDS: NACHLORIDE 0.45% 1,000 ML IV SCH ×2 (06:58→16:11)
[2019-09-27] MEDS ORDERED: POTASSIUM CL SA 10 MEQ TAB PO ONE (08:24)
[2019-09-27] MEDS: DOXAZOSIN 2 MG TAB PO SCH ×2 (08:41→20:57)
[2019-09-27] MEDS: CALCITROL 0.25 MCG CAP PO SCH (08:42)
[2019-09-27] MEDS: VITAMIN D 5,000 UNIT CAP PO SCH (08:43)
[2019-09-27] MEDS: DOCUSATE NA 100 MG CAP PO SCH ×2 (08:43→20:58)
[2019-09-27] MEDS: METOPROLOL TAR 25 MG TAB PO SCH ×2 (08:43→20:56)
[2019-09-27] MEDS: OSELTAMIVIR PHOSPHATE 30 MG/5 ML SUSPENSION UD PO SCH (08:44)
[2019-09-27] MEDS: CEFTRIAXONE/SWI 1gm 1 GM/10 ML SYR IVP SCH (08:44)
[2019-09-27] MEDS: AMLODIPINE 10 MG TAB PO SCH ×2 (08:44→20:56)
[2019-09-27] MEDS ORDERED: SOD FERRIC GLUC COMPLX/SUCROSE 125 MG in NA CHLORIDE 0.9% 100 ML IV ONE (09:00)
[2019-09-27] MEDS ORDERED: EPOETIN ALFA-EPBX 10,000 UNIT/ML VIAL SQ ONE (09:00)
--- NOTE | 2019-09-27 16:44 | P.PN ---
Subjective Date of Service: 09/27/19 Chief Complaint: Dyspnea Subjective: Improving Patient seen and examined chart reviewed and case discussed with RN and Dr. Monge. Patient now complaining of abdominal pain. Was constipated and given laxative yesterday. Denies any shortness of breath. COVID 19 result negative Review of Systems 10-point ROS is otherwise unremarkable Gastrointestinal: As per HPI Physical Examination - Vital Signs Temperature: 98.6 F Blood Pressure: 133/86 Pulse: 67 Respirations: 18 Pulse Ox (%): 98 - Physical Exam General: Alert, Oriented x3, Mild distress, Other (Ill-appearing female) HEENT: Atraumatic, PERRLA, EOMI Neck: Supple, JVD not distended Respiratory: Clear to auscultation bilaterally, Normal air movement Cardiovascular: No edema, Normal pulses, Regular rate/rhythm, Normal S1 S2 Gastrointestinal: Normal bowel sounds, Soft and benign, Non-distended, No rebound, Tenderness, Guarding Musculoskeletal: No tenderness Integumentary: No rashes Neurological: Normal speech, Normal strength at 5/5 x4 extr, Normal tone, Normal affect - Studies Laboratory Tests 09/24/19 09/24/19 09/24/19 09:40 09:40 09:40 WBC 7.2 RBC 4.04 Hgb 10.3 L Hct 31.9 L MCV 79.0 L D MCH 25.6 L D MCHC 32.4 RDW 15.8 H Plt Count 270 MPV 9.3 Neutrophils % 62.5 Lymphocytes % 27.4 Monocytes % 5.8 Eosinophils % 3.1 Basophils % 1.2 Absolute Neutrophils 4.5 Absolute Lymphocytes 2.0 Absolute Monocytes 0.4 Absolute Eosinophils 0.2 Absolute Basophils 0.1 PT INR D-Dimer 4833 H* Sodium 138 Potassium 2.8 L* Chloride 104 Carbon Dioxide 25 BUN 49 H Creatinine 5.19 H* Estimated GFR 12 L Glucose 113 H Calcium 8.5 Magnesium Total Bilirubin Direct Bilirubin AST ALT Alkaline Phosphatase Rapid Troponin I NT-Pro-B Natriuret Pep Serum Total Protein Albumin Globulin Albumin/Globulin Ratio Urine pH Ur Specific [place] Glucose (UA)(Auto) Urine Ketones Urine Blood Urine Nitrite Ur Leukocyte Esterase Urine Total Protein Urine Test 09/24/19 09/24/19 09/24/19 11:08 11:08 11:41 WBC RBC Hgb Hct MCV MCH MCHC RDW Plt Count MPV Neutrophils % Lymphocytes % Monocytes % Eosinophils % Basophils % Absolute Neutrophils Absolute Lymphocytes Absolute Monocytes Absolute Eosinophils Absolute Basophils PT 12.1 INR 1.03 D-Dimer Sodium Potassium Chloride Carbon Dioxide BUN Creatinine Estimated GFR Glucose Calcium Magnesium 2.1 Total Bilirubin 0.3 Direct Bilirubin 0.1 AST 72 H ALT 90 H Alkaline Phosphatase 125 H Rapid Troponin I 0.05 H NT-Pro-B Natriuret Pep 54020 H Serum Total Protein 7.2 Albumin 3.3 L Globulin 3.9 H Albumin/Globulin Ratio 0.8 L Urine pH 6.5 Ur Specific [place] 1.020 Glucose (UA)(Auto) Negative Urine Ketones Negative Urine Blood 2+ H Urine Nitrite Negative Ur Leukocyte Esterase Negative Urine Total Protein 1+ H Urine Test Neg Microbiology Data (last 24 hrs): Urine culture growing Providencia sensitive to Rocephin Medications List Reviewed: Yes Assessment And Plan - Plan 1. Influenza B. We will continue with Tamiflu renally dosed. 2. Acute respiratory distress likely due to influenza. Resolved. COVID-19 ruled out. Currently, patient is on room air. We will continue with supportive treatment for now. 3. Acute versus acute on chronic kidney injury. Creatinine is 5.2. Appreciate Dr. Monge's input. This may be related to complications from her long-standing hypertension and noncompliance versus ATN. This may be her baseline. Patient making good urine output electrolytes are stable. 4. Hypokalemia, replace and monitor. 5. Mild troponin elevation, likely due to her current medical condition. Doubt any acute coronary syndrome. Patient denies any chest pain. 6. Essential hypertension, hypertensive urgency, not well controlled in the 190s/120s. Blood pressure is now better. Medications have been adjusted. We will continue with IV hydralazine. Cardura has been added and beta-blockers have been changed. Will continue to monitor 7. Headache, unclear etiology. Resolved. Head CT scan negative 8. Microcytic anemia. Patient currently on her menstrual cycle. Iron panel shows low iron level. Recommend oral iron supplementation 9. Acute cystitis with hematuria, likely secondary to her menstrual cycle. We will start on Rocephin. urine cultures showing Providencia. 10. Deep vein thrombosis prophylaxis addressed. Likely Dc in the next 24 hr once cleared by nephrology. Social work to determine if patient is eligible for funding or Medicaid Patient will need close followup with nephrology as an outpatient Discharge Plan: Home Plan to discharge in: 24 Hours
--- NOTE | 2019-09-27 17:49 | RAD REPORT ---
EXAM DESCRIPTION: RAD - Abdomen 1 View (KUB) - 09/27/2019 5:37 pm CLINICAL HISTORY: Abdomen pain. FINDINGS: The bowel gas pattern is unremarkable. A moderate amount of stool is present throughout the colon No abnormal mass is seen
--- NOTE | 2019-09-27 20:03 | P.PN ---
Date of Service: 09/27/19 Vital Signs Temp Pulse Resp BP Pulse Ox 98.6 F 67 18 133/86 98 09/27/19 16:44 09/27/19 16:44 09/27/19 16:44 09/27/19 16:44 09/27/19 16:44 Medications Hydrocodone Bitart/Acetaminophen ([place] 7.5/325 Mg) 1 tab PO Q4H PRN PRN Reason: Pain scale 8-10 (Severe) Stop: 10/25/19 20:34 Last Admin: 09/26/19 21:38 Dose: 1 tab Documented by: Amlodipine Besylate (Norvasc) 10 mg PO BID [facility] Stop: 10/26/19 09:16 Last Admin: 09/27/19 08:44 Dose: 10 mg Documented by: Calcitriol (Rocaltrol) 0.5 mcg PO DAILY [facility] Stop: 10/26/19 09:01 Last Admin: 09/27/19 08:42 Dose: 0.5 mcg Documented by: Cholecalciferol (Vitamin D 5,000 Iu Cap) 5,000 unit PO DAILY [facility] Stop: 10/26/19 09:01 Last Admin: 09/27/19 08:43 Dose: 5,000 unit Documented by: Docusate Sodium (Colace Cap) 100 mg PO BID [facility] Stop: 10/26/19 21:01 Last Admin: 09/27/19 08:43 Dose: 100 mg Documented by: Doxazosin Mesylate (Cardura) 2 mg PO BID [facility] Stop: 10/24/19 21:01 Last Admin: 09/27/19 08:41 Dose: 2 mg Documented by: Hydralazine HCl (Apresoline) 10 mg IV Q6HP PRN PRN Reason: Titrate to SBP (MUST DEFINE) Stop: 10/26/19 01:46 Ceftriaxone Sodium/Sodium Chloride (Rocephin 1 Gm/10 Ml Swi Ivp) 1 gm in 10 mls @ 600 mls/hr IVP DAILY [facility]; Protocol Stop: 10/25/19 18:31 Last Admin: 09/27/19 08:44 Dose: 10 mls Documented by: Sodium Chloride (Sodium Chloride 0.45%) 1,000 mls @ 100 mls/hr IV .Q10H [facility] Stop: 10/25/19 22:01 Last Admin: 09/27/19 16:11 Dose: 1,000 mls Documented by: Metoprolol Tartrate (Lopressor) 12.5 mg PO BID [facility] Stop: 10/24/19 21:01 Last Admin: 09/27/19 08:43 Dose: 12.5 mg Documented by: Morphine Sulfate (Morphine Sulfate) 2 mg IV Q4H PRN PRN Reason: Pain scale 5-7 (Moderate) Stop: 10/26/19 01:46 Last Admin: 09/27/19 16:11 Dose: 2 mg Documented by: Ondansetron HCl (Zofran) 4 mg IV Q6H PRN PRN Reason: NAUSEA / VOMITING Stop: 10/24/19 16:43 Last Admin: 09/24/19 16:49 Dose: 4 mg Documented by: Oseltamivir Phosphate (Tamiflu Suspension) 30 mg PO DAILY [facility] Stop: 09/28/19 09:01 Last Admin: 09/27/19 08:44 Dose: 30 mg Documented by: Polyethylene Glycol (Glycolax) 17 gm PO DAILY [facility] Stop: 10/28/19 09:01 Sodium Chloride (Normal Saline Flush) 10 ml IV BID [facility] Stop: 10/24/19 21:01 Last Admin: 09/27/19 08:44 Dose: 10 ml Documented by: Microbiology Results 09/24/19 09:40 Throat Culture & Sensitivity - Final NORMAL UPPER RESPIRATORY [facility] GROWN. 09/24/19 10:58 Nasopharnyx Coronavirus COVID-19 PCR - Final 09/24/19 09:40 Throat Group A Streptococcus Rapid Screen - Final 09/24/19 09:40 Nasopharnyx Influenza Type A Antigen Screen - Final 09/24/19 09:40 Nasopharnyx Influenza Type B Antigen Screen - Final Assessment/ Plan: Nephrology Doing well. Reports good urine output. CPS stable without CP or SOB. No acute events overnight. Vitals, medications, blood work and imaging reviewed in the chart. Physical Examination General: Oriented x3, Cooperative HEENT: Atraumatic Neck: Supple Respiratory: Clear to auscultation bilaterally, Normal air movement Cardiovascular: No edema, Regular rate/rhythm Gastrointestinal: Soft and benign, Non-distended Musculoskeletal: No clubbing, No contractures Integumentary: No rashes, No cyanosis Neurological: Normal speech Lymphatics: No axilla or inguinal lymphadenopathy Laboratory Data (last 24 hrs) 09/24/19 11:08: PT 12.1, INR 1.03 09/24/19 11:08: Magnesium 2.1, Total Bilirubin 0.3, AST 72 H, ALT 90 H, Alkaline Phosphatase 125 H 09/24/19 09:40: Sodium 138, Potassium 2.8 L*, BUN 49 H, Creatinine 5.19 H*, Glucose 113 H 09/24/19 09:40: WBC 7.2, Hgb 10.3 L, Hct 31.9 L, Plt Count 270 Imagings Data: EXAM DESCRIPTION: US - Renal Ultrasound-Complete - 09/24/2019 11:52 am CLINICAL HISTORY: Acute renal insufficiency COMPARISON: None. FINDINGS: The right kidney measures 8 cm with an increased echotexture. The left kidney measures 8 cm with an increased echotexture. Hydronephrosis is not seen. No gross abnormality of bladder is seen IMPRESSION: Increased renal echotexture consistent with parenchymal disease. EXAM DESCRIPTION: Joseph Horton And Lat (2 Views)09/24/2019 10:13 am CLINICAL HISTORY: Shortness of breath COMPARISON: August 2019 R FINDINGS: Mild to moderate bilateral interstitial lung opacities. The heart is mildly to moderately enlarged IMPRESSION: Mild to moderate bilateral interstitial lung opacities may represent pulmonary edema, viral pneumonia or pneumonitis Conclusions/Impression: A/ MARLY suspicious for ATN. Diff Dx: Progressive CKD in the setting of HTN. Possible nephritis in the setting of hematuria and HTN. Proteinuria. Hematuria may be related to menses. CKD? Hypokalemia HTN emergency. Hyperglycemia Acute hepatitis Anemia in chronic illness. Iron deficiency. P/ Continue current POC and Medications. Continue IVF. Replete potassium. Give IV iron. No NSAIDs. AM labs. Daily weight.
[2019-09-27 20:21] LABS: Immunoglobulin A 184 mg/dL (47-310); Immunoglobulin G 1135 mg/dL (600-1640); Immunoglobulin M 73 mg/dL (50-300)
[2019-09-27] MEDS: POLYETHYL GLY 3350 17 GM/DOSE PO SCH (20:56)
[2019-09-28] MEDS: MORPHINE 2 MG/ML SYR IV PRN ×3 (01:20→09:18)
[2019-09-28 05:27] LABS: Absolute Lymphocytes (CBC) 1.7 K/uL (0.7-4.9); Basophils % 1.5 % (0-1.3); Hematocrit 27.6 % (36.0-45.0); Lymphocytes % 25.9 % (15.3-44.8); MPV 9.6 fL (7.6-11.3); RBC Red Blood Cell Count 3.46 M/uL (3.86-4.86)
[2019-09-28 05:48] LABS: Potassium 4.1 mmol/L (3.5-5.1)
[2019-09-28] MEDS: NACHLORIDE 0.45% 1,000 ML IV SCH ×2 (05:50→10:00)
--- NOTE | 2019-09-28 08:31 | P.DS ---
Admission Date: 09/24/19 Discharge Date: 09/28/19 Disposition: ROUTINE DISCHARGE Discharge Condition: FAIR Reason for Admission: Dyspnea Consultations: Nephrology Dr. Monge Brief History of Present Illness: Patient is a 34-year-old female with past medical history of hypertension comes in and that acute renal failure and shortness of breath. Patient is admitted to the COVID unit to be ruled out. Positive for influenza Hospital Course: Patient is a 34-year-old female with past medical history of hypertension which has been untreated noncompliant comes in with acute renal failure along with influenza patient was admitted to the 4th floor to rule out COVID 19 due to her symptoms. her tests came back negative. She was started on Tamiflu for her influenza. She also had a UTI and was started on IV antibiotics. cultures came back with Providencia. Patient was seen by cardiopulmonary technician and workup was initiated. Her kidney function may be related to chronic uncontrolled hypertension versus possible ATN. Workup is still pending. Patient does not have a primary care physician. Her kidney function stabilized around 5. Her electrolytes were stable and she was making good urine. She did not need to be initiated on dialysis she was given IV fluids however no significant change in her creatinine was noticed. This may be her new baseline. Patient will need close follow up with nephrology and to go over her serology immunology testing with a cardiopulmonary technician. Patient was advised to obtain a primary care physician in the next week or so. Overall patient did well her respiratory status improved she was no longer on oxygen. Patient will finish off course of Tamiflu. She has completed treatment for her UTI. Patient was then discharged home in a stable condition 1. Influenza B. We will continue with Tamiflu renally dosed. 2. Acute respiratory distress likely due to influenza. Resolved. COVID-19 ruled out. Currently, patient is on room air. We will continue with supportive treatment for now. 3. Acute versus acute on chronic kidney injury. Creatinine is 5.2. Appreciate Dr. Monge's input. This may be related to complications from her long-standing hypertension and noncompliance versus ATN. This may be her baseline. Patient making good urine output electrolytes are stable. 4. Hypokalemia, replace and monitor. 5. Mild troponin elevation, likely due to her current medical condition. Doubt any acute coronary syndrome. Patient denies any chest pain. 6. Essential hypertension, hypertensive urgency, not well controlled in the 190s/120s. Blood pressure is now better. Medications have been adjusted. We will continue with IV hydralazine. Cardura has been added and beta-blockers have been changed. Will continue to monitor 7. Headache, unclear etiology. Resolved. Head CT scan negative 8. Microcytic anemia. Patient currently on her menstrual cycle. Iron panel shows low iron level. Recommend oral iron supplementation 9. Acute cystitis with hematuria, likely secondary to her menstrual cycle. We will start on Rocephin. urine cultures showing Providencia. Vital Signs/Physical Exam: Temp Pulse Resp BP Pulse Ox 98.1 F 66 16 135/87 95 09/28/19 04:00 09/28/19 04:00 09/28/19 04:00 09/28/19 04:00 09/28/19 04:00 General: Alert, In no apparent distress, Oriented x3 HEENT: Atraumatic, PERRLA, EOMI Neck: Supple, JVD not distended Respiratory: Clear to auscultation bilaterally, Normal air movement Cardiovascular: Regular rate/rhythm, Normal S1 S2 Gastrointestinal: Normal bowel sounds, Soft and benign, Non-distended, No tenderness Musculoskeletal: No tenderness Integumentary: No rashes Neurological: Normal speech, Normal strength at 5/5 x4 extr, Normal tone, Normal affect Laboratory Data at Discharge: WBC 6.6 K/uL (4.3-10.9) 09/28/19 05:03 Hgb 8.7 g/dL (12.0-15.0) L 09/28/19 05:03 Hct 27.6 % (36.0-45.0) L 09/28/19 05:03 Plt Count 347 K/uL (152-406) 09/28/19 05:03 PT 12.1 SECONDS (9.5-12.5) 09/24/19 11:08 INR 1.03 09/24/19 11:08 Sodium 139 mmol/L (136-145) 09/28/19 05:03 Potassium 4.1 mmol/L (3.5-5.1) 09/28/19 05:03 BUN 41 mg/dL (7-18) H 09/28/19 05:03 Creatinine 5.17 mg/dL (0.55-1.3) H* 04/17/20 05:03 Glucose 133 mg/dL (74-106) H 09/28/19 05:03 Uric Acid 7.9 mg/dL (2.6-6.0) H 09/27/19 05:13 Phosphorus 3.7 mg/dL (2.5-4.9) 09/25/19 03:30 Magnesium 2.1 mg/dL (1.8-2.4) 09/24/19 11:08 Total Bilirubin 0.2 mg/dL (0.2-1.0) 09/27/19 05:13 AST 40 U/L (15-37) H 09/27/19 05:13 ALT 71 U/L (12-78) 09/27/19 05:13 Alkaline Phosphatase 113 U/L (45-117) 09/27/19 05:13 Home Medications: Amlodipine [Norvasc*] 10 mg PO BID #60 tab 09/28/19 Calcitrol [Rocaltrol*] 0.5 mcg PO DAILY #30 cap 09/28/19 Cholecalciferol (Vitamin D3) [Vitamin D 5,000 IU Cap*] 5,000 unit PO DAILY #30 cap 09/28/19 Docusate [Colace Cap*] 100 mg PO BID cap 09/28/19 Doxazosin [Cardura*] 2 mg PO BID #60 tab 09/28/19 Metoprolol Tartrate [Lopressor*] 12.5 mg PO BID #60 tab 09/28/19 Oseltamivir Phosphate [Tamiflu Suspension] 5 ml PO DAILY #10 ud 09/28/19 New Medications: Doxazosin [Cardura*] 2 mg PO BID #60 tab Metoprolol Tartrate [Lopressor*] 12.5 mg PO BID #60 tab Amlodipine [Norvasc*] 10 mg PO BID #60 tab Calcitrol [Rocaltrol*] 0.5 mcg PO DAILY #30 cap Oseltamivir Phosphate [Tamiflu Suspension] 5 ml PO DAILY #10 ud Cholecalciferol (Vitamin D3) [Vitamin D 5,000 IU Cap*] 5,000 unit PO DAILY #30 cap Patient Discharge Instructions: Establish care with primary care physician. Return to ER for worsening condition. follow up with cardiopulmonary technician in 1 week Diet: Renal Activity: Ad corby Time spent managing pt's care (in minutes): 43
[2019-09-28 08:37] VITALS: O2SAT 94
[2019-09-28] MEDS: OSELTAMIVIR PHOSPHATE 30 MG/5 ML SUSPENSION UD PO SCH (09:18)
[2019-09-28] MEDS: VITAMIN D 5,000 UNIT CAP PO SCH (09:19)
[2019-09-28] MEDS: AMLODIPINE 10 MG TAB PO SCH (09:19)
[2019-09-28] MEDS: METOPROLOL TAR 25 MG TAB PO SCH (09:19)
[2019-09-28] MEDS: DOCUSATE NA 100 MG CAP PO SCH (09:20)
[2019-09-28] MEDS: CALCITROL 0.25 MCG CAP PO SCH (09:20)
[2019-09-28] MEDS: DOXAZOSIN 2 MG TAB PO SCH (09:20)
[2019-09-28] MEDS: CEFTRIAXONE/SWI 1gm 1 GM/10 ML SYR IVP SCH (09:21)
[2019-09-28] MEDS: POLYETHYL GLY 3350 17 GM/DOSE PO SCH (09:21)
[2019-09-28] MEDS ORDERED: BISACODYL 10 MG RECTAL SUPP PR ONE (15:57)
--- NOTE | 2019-09-28 15:58 | P.PN ---
Date of Service: 09/28/19 Vital Signs Temp Pulse Resp BP Pulse Ox 97.7 F 66 15 137/85 96 09/28/19 12:00 09/28/19 12:00 09/28/19 12:00 09/28/19 12:00 09/28/19 12:00 Medications Amlodipine Besylate (Norvasc) 10 mg PO BID [facility] Stop: 10/26/19 09:16 Last Admin: 09/28/19 09:19 Dose: 10 mg Documented by: Bisacodyl (Dulcolax) 20 mg [place] 1X ONE Stop: 09/28/19 15:58 Calcitriol (Rocaltrol) 0.5 mcg PO DAILY [facility] Stop: 10/26/19 09:01 Last Admin: 09/28/19 09:20 Dose: 0.5 mcg Documented by: Cholecalciferol (Vitamin D 5,000 Iu Cap) 5,000 unit PO DAILY [facility] Stop: 10/26/19 09:01 Last Admin: 09/28/19 09:19 Dose: 5,000 unit Documented by: Docusate Sodium (Colace Cap) 100 mg PO BID [facility] Stop: 10/26/19 21:01 Last Admin: 09/28/19 09:20 Dose: 100 mg Documented by: Doxazosin Mesylate (Cardura) 2 mg PO BID [facility] Stop: 10/24/19 21:01 Last Admin: 09/28/19 09:20 Dose: 2 mg Documented by: Hydralazine HCl (Apresoline) 10 mg IV Q6HP PRN PRN Reason: Titrate to SBP (MUST DEFINE) Stop: 10/26/19 01:46 Ceftriaxone Sodium/Sodium Chloride (Rocephin 1 Gm/10 Ml Swi Ivp) 1 gm in 10 mls @ 600 mls/hr IVP DAILY [facility]; Protocol Stop: 10/25/19 18:31 Last Admin: 09/28/19 09:21 Dose: 10 mls Documented by: Sodium Chloride (Sodium Chloride 0.45%) 1,000 mls @ 100 mls/hr IV .Q10H [facility] Stop: 10/25/19 22:01 Last Admin: 09/28/19 10:00 Dose: Not Given Documented by: Metoprolol Tartrate (Lopressor) 12.5 mg PO BID [facility] Stop: 10/24/19 21:01 Last Admin: 09/28/19 09:19 Dose: 12.5 mg Documented by: Ondansetron HCl (Zofran) 4 mg IV Q6H PRN PRN Reason: NAUSEA / VOMITING Stop: 10/24/19 16:43 Last Admin: 09/24/19 16:49 Dose: 4 mg Documented by: Polyethylene Glycol (Glycolax) 17 gm PO DAILY [facility] Stop: 10/28/19 09:01 Last Admin: 09/28/19 09:21 Dose: 17 gm Documented by: Sodium Chloride (Normal Saline Flush) 10 ml IV BID [facility] Stop: 10/24/19 21:01 Last Admin: 09/28/19 09:21 Dose: 10 ml Documented by: Microbiology Results 09/24/19 09:40 Throat Culture & Sensitivity - Final NORMAL UPPER RESPIRATORY [facility]UEL GROWN. 09/24/19 10:58 Nasopharnyx Coronavirus COVID-19 PCR - Final 09/24/19 09:40 Throat Group A Streptococcus Rapid Screen - Final 09/24/19 09:40 Nasopharnyx Influenza Type A Antigen Screen - Final 09/24/19 09:40 Nasopharnyx Influenza Type B Antigen Screen - Final Assessment/ Plan: Nephrology Doing well. Reports good urine output. CPS stable without CP or SOB. No acute events overnight. Vitals, medications, blood work and imaging reviewed in the chart. Physical Examination General: Oriented x3, Cooperative HEENT: Atraumatic Neck: Supple Respiratory: Clear to auscultation bilaterally, Normal air movement Cardiovascular: No edema, Regular rate/rhythm Gastrointestinal: Soft and benign, Non-distended Musculoskeletal: No clubbing, No contractures Integumentary: No rashes, No cyanosis Neurological: Normal speech Lymphatics: No axilla or inguinal lymphadenopathy Laboratory Data (last 24 hrs) 09/24/19 11:08: PT 12.1, INR 1.03 09/24/19 11:08: Magnesium 2.1, Total Bilirubin 0.3, AST 72 H, ALT 90 H, Alkaline Phosphatase 125 H 09/24/19 09:40: Sodium 138, Potassium 2.8 L*, BUN 49 H, Creatinine 5.19 H*, Glucose 113 H 09/24/19 09:40: WBC 7.2, Hgb 10.3 L, Hct 31.9 L, Plt Count 270 Imagings Data: EXAM DESCRIPTION: US - Renal Ultrasound-Complete - 09/24/2019 11:52 am CLINICAL HISTORY: Acute renal insufficiency COMPARISON: None. FINDINGS: The right kidney measures 8 cm with an increased echotexture. The left kidney measures 8 cm with an increased echotexture. Hydronephrosis is not seen. No gross abnormality of bladder is seen IMPRESSION: Increased renal echotexture consistent with parenchymal disease. EXAM DESCRIPTION: Joseph Pa And Lat (2 Views)09/24/2019 10:13 am CLINICAL HISTORY: Shortness of breath COMPARISON: August 2019 R FINDINGS: Mild to moderate bilateral interstitial lung opacities. The heart is mildly to moderately enlarged IMPRESSION: Mild to moderate bilateral interstitial lung opacities may represent pulmonary edema, viral pneumonia or pneumonitis Conclusions/Impression: A/ MARLY suspicious for ATN. Diff Dx: Progressive CKD in the setting of HTN. Possible nephritis in the setting of hematuria and HTN. Proteinuria. Hematuria may be related to menses. CKD? Hypokalemia HTN emergency. Hyperglycemia Acute hepatitis Anemia in chronic illness. Iron deficiency. P/ Continue current POC and Medications. Counseled the patient regarding severe CKD. Counseled regarding compliance with medications and nephrology follow up. No NSAIDs. AM labs. Daily weight. Case reviewed with Dr. Mary.
[2019-09-28 17:30] VITALS: BP 133/81; TEMP 97.9
[2019-09-30 04:41] LABS: Albumin, (SPE) 3.1 g/dL (3.8-4.8); Alpha-1-Globulins 0.4 g/dL (0.2-0.3); Alpha-2-Globulins 0.6 g/dL (0.5-0.9); Gamma Globulins 0.9 g/dL (0.8-1.7); INTERPRETATION REPORT
== END 2019-09-28 17:35 | disposition home or self-care (01) | DRG 193 ==
LOC: SUPCPDRO 08:44 → ER 08:44 → ERHOLD 12:35 → 3RD-ICU 14:49 → 4TH 15:50 → 2ND 09-25 19:17
PROVIDERS: ADMIT Family Medicine; ATTEND Family Medicine
DX: J10.1 Influenza due to other identified influenza virus with other respiratory manifestations (principal); N17.0 Acute kidney failure with tubular necrosis; I16.1 Hypertensive emergency; B17.9 Acute viral hepatitis, unspecified; N30.01 Acute cystitis with hematuria; E87.6 Hypokalemia; R73.9 Hyperglycemia, unspecified; D63.8 Anemia in other chronic diseases classified elsewhere; D50.9 Iron deficiency anemia, unspecified; Z20.828 Contact with and (suspected) exposure to other viral communicable diseases; Z91.19 Patient's noncompliance with other medical treatment and regimen; B96.89 Other specified bacterial agents as the cause of diseases classified elsewhere; I12.9 Hypertensive chronic kidney disease with stage 1 through stage 4 chronic kidney disease, or unspecified chronic kidney disease; N18.9 Chronic kidney disease, unspecified; I16.0 Hypertensive urgency; R79.89 Other specified abnormal findings of blood chemistry; Z79.899 Other long term (current) drug therapy; F17.200 Nicotine dependence, unspecified, uncomplicated
CPT/HCPCS: 36415; 70450; 71046; 74018; 76770; 80048; 80053; 80076; 81001; 81003; 81025; 82043; 82570; 82784; 83010; 83036; 83520; 83540; 83615; 83735; 83880; 84100; 84165; 84300; 84466; 84484; 84550; 85025; 85379; 85610; 86021; 86038; 86160; 86317; 86334; 86335; 86704; 86803; 87070; 87077; 87081; 87086; 87088; 87186; 87340; 87804; 93005; 94760; 96365; 96366; 96375; 99285; J0360; J0696; J1940; J2270; J2405; J2916; Q5106; U0001

== ENCOUNTER 2019-11-19 14:33 | Inpatient (IN) | payer MEDICAID, OTHER, SELFPAY ==
[2019-11-19] MEDS ORDERED: METOPROLOL TARTRATE 5 MG/5 ML INJ IV ONE (15:19)
[2019-11-19 15:35] LABS: Absolute Lymphocytes (CBC) 1.2 K/uL (0.7-4.9); Basophils % 1.1 % (0-1.3); Hematocrit 26.2 % (36.0-45.0); Lymphocytes % 15.2 % (15.3-44.8); MPV 7.1 fL (7.6-11.3); RBC Red Blood Cell Count 3.38 M/uL (3.86-4.86)
--- NOTE | 2019-11-19 15:50 | RAD REPORT ---
EXAM DESCRIPTION: Joseph Single View11/19/2019 3:38 pm CLINICAL HISTORY: Chest pain COMPARISON: none FINDINGS: Mild bilateral pulmonary opacities Heart is moderately enlarged IMPRESSION: Mild bilateral pulmonary opacities may indicate mild pulmonary edema
[2019-11-19 15:53] LABS: Bilirubin Direct 0.2 mg/dL (0-0.2); Bilirubin Total 0.5 mg/dL (0.2-1.0); Magnesium 2.3 mg/dL (1.8-2.4); Protein, Total 6.6 g/dL (6.4-8.2); Troponin (Emerg Dept Use Only) 0.05 ng/mL (0.0-0.045)
[2019-11-19] MEDS ORDERED: FUROSEMIDE 40 MG/4 ML VIAL ONE (16:05)
[2019-11-19] MEDS ORDERED: cloNIDine HCL 0.1 MG TAB ONE (16:05)
[2019-11-19] MEDS ORDERED: LEVALBUTEROL 1.25 MG/3 ML NEB ONE (16:05)
[2019-11-19 17:45] LABS: Platelet Estimate ADEQ; Urine White Blood Cell Casts OK
[2019-11-19 17:46] LABS: Anisocytosis 2+; Blood Morphology Comment NOTED (NOT SEEN); Poikilocytosis 1+
--- NOTE | 2019-11-19 18:16 | EDPHYS ---
Physician Documentation [facility] Name: Nely Quinones Age: 34 yrs Sex: Female : 1985 Arrival Date: 11/19/2019 Time: 14:35 Bed 3 Private MD: ED Physician Rohan Sosa HPI: 11/19 17:32 This 34 yrs old Black Female presents to ER via Ambulatory with complaints of Chest kdr Tightness, Shortness Of Breath, Leg Pain. 17:32 The patient or guardian reports chest pain that is located primarily in the anterior kdr chest wall. The pain does not radiate. Associated signs and symptoms: Pertinent positives: shortness of breath, Peripheral edema. The chest pain is described as aching, dull, a pressure. Duration: The patient or guardian reports multiple episodes, that are intermittent, that wax and wane, with no pattern. Modifying factors: The symptoms are alleviated by nothing. the symptoms are aggravated by nothing. Severity of pain: At its worst the pain was mild in the emergency department the pain is unchanged. The patient has experienced similar episodes in the past, a few times. The patient has not recently seen a physician. 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 - Social history:: Smoking status: Patient reports the use of cigarette tobacco products, denies chronic smoking, but will smoke occasionally. ROS: 11/19 17:32 Constitutional: Negative for fever, chills, and weight loss, Eyes: Negative for injury, kdr pain, redness, and discharge, ENT: Negative for injury, pain, and discharge, Neck: Negative for injury, pain, and swelling, Abdomen/GI: Negative for abdominal pain, nausea, vomiting, diarrhea, and constipation, Back: Negative for injury and pain, : Negative for injury, bleeding, discharge, and swelling, MS/Extremity: Negative for injury and deformity, Skin: Negative for injury, rash, and discoloration, Neuro: Negative for headache, weakness, numbness, tingling, and seizure activity. Psych: Negative for depression, anxiety, suicide ideation, homicidal ideation, and hallucinations, Allergy/Immunology: Negative for hives, rash, and allergies, Endocrine: Negative for neck swelling, polydipsia, polyuria, polyphagia, and marked weight changes, Hematologic/Lymphatic: Negative for swollen nodes, abnormal bleeding, and unusual bruising. Cardiovascular: Positive for chest pain, edema, Negative for palpitations, paroxysmal nocturnal dyspnea. Respiratory: Positive for dyspnea on exertion, shortness of breath, Negative for hemoptysis, sputum production, wheezing. Exam: 17:32 Constitutional: This is a well developed, well nourished patient who is awake, alert, kdr and in no acute distress. Head/Face: Normocephalic, atraumatic. Eyes: Pupils equal round and reactive to light, extra-ocular motions intact. Lids and lashes normal. Conjunctiva and sclera are non-icteric and not injected. Cornea within normal limits. Periorbital areas with no swelling, redness, or edema. Neck: Trachea midline, no thyromegaly or masses palpated, and no cervical lymphadenopathy. Supple, full range of motion without nuchal rigidity, or vertebral point tenderness. No Meningismus. Chest/axilla: Normal chest wall appearance and motion. Nontender with no deformity. No lesions are appreciated. Cardiovascular: Regular rate and rhythm with a normal S1 and S2. No gallops, murmurs, or rubs. Normal PMI, no JVD. No pulse deficits. Abdomen/GI: Soft, non-tender, with normal bowel sounds. No distension or tympany. No guarding or rebound. No evidence of tenderness throughout. Back: No spinal tenderness. No costovertebral tenderness. Full range of motion. Skin: Warm, dry with normal turgor. Normal color with no rashes, no lesions, and no evidence of cellulitis. MS/ Extremity: Pulses equal, no cyanosis. Neurovascular intact. Full, normal range of motion. Neuro: Awake and alert, GCS 15, oriented to person, place, time, and situation. Cranial nerves II-XII grossly intact. Motor strength 5/5 in all extremities. Sensory grossly intact. Cerebellar exam normal. Normal gait. Psych: Awake, alert, with orientation to person, place and time. Behavior, mood, and affect are within normal limits. 17:32 Respiratory: the patient does not display signs of respiratory distress, Respirations: normal, Breath sounds: rales, that are mild, are located in both bases. 17:32 Musculoskeletal/extremity: Extremities: grossly normal except: noted in the right leg kdr and left leg: swelling, Bilateral lower extremity edema. Vital Signs: 11/18 14:48 BP 190 / 130; Pulse 87; Resp 16; Temp 99.2(TE); Pulse Ox 97% on R/A; Height 5 ft. 2 in. ss (157.48 cm); Pain 10/10; 15:05 BP 198 / 123; Pulse 87; Resp 26; Pulse Ox 100% ; jl7 15:30 BP 184 / 119; Pulse 75; Resp 28; Pulse Ox 100% ; jl7 15:50 BP 180 / 123; Pulse 70; Resp 27; Pulse Ox 99% ; jl7 16:10 BP 179 / 120; Pulse 72; Resp 25; Pulse Ox 100% ; jl7 16:53 BP 163 / 101; Pulse 77; Resp 23; Pulse Ox 97% ; jl7 18:21 BP 175 / 106; Pulse 72; Resp 26; Pulse Ox 100% ; jl7 19:15 BP 185 / 112; Pulse 80; Resp 24; Pulse Ox 99% ; rr5 20:50 BP 171 / 102; Pulse 75; Resp 22; Pulse Ox 98% ; rr5 21:28 BP 175 / 112; Pulse 76; Resp 20; Temp 97.8; Pulse Ox 99% ; rr5 MDM: 18:15 Patient medically screened. kdr 11/19 17:32 Data reviewed: vital signs, nurses notes, lab test result(s), radiologic studies. kdr Counseling: I had a detailed discussion with the patient and/or guardian regarding: the historical points, exam findings, and any diagnostic results supporting the discharge/admit diagnosis, lab results, radiology results, the need for further work-up and treatment in the hospital. 11/18 15:04 Order name: Basic Metabolic Panel; Complete Time: 17:56 snw 11/18 15:04 Order name: CBC with Diff; Complete Time: 17:56 snw 11/18 15:04 Order name: LFT's; Complete Time: 17:56 snw 11/18 15:04 Order name: Magnesium; Complete Time: 17:56 snw 11/18 15:04 Order name: NT PRO-BNP; Complete Time: 17:56 snw 11/18 15:04 Order name: PT-INR; Complete Time: 17:56 snw 11/18 15:03 Order name: Chest Single View XRAY; Complete Time: 17:56 snw 11/18 15:04 Order name: Troponin (emerg Dept Use Only); Complete Time: 17:56 snw 11/18 15:46 Order name: CBC Smear Scan; Complete Time: 17:56 EDMS 11/18 20:06 Order name: Hep B Core Ab, Tot/reflex IgM EDMS 11/18 20:06 Order name: Hep B Surface AG w/ Confirm EDMS 11/18 20:06 Order name: Hepatitis B Surface Ab,Quant EDMS 11/18 20:08 Order name: Biopsy Renal EDMS 11/18 15:03 Order name: EKG; Complete Time: 15:03 snw 11/18 15:03 Order name: EKG - Nurse/Tech; Complete Time: 15:22 snw 11/18 15:04 Order name: Cardiac monitoring; Complete Time: 15:22 snw 11/18 15:04 Order name: IV Saline Lock; Complete Time: 15:22 snw 11/18 15:04 Order name: Labs collected and sent; Complete Time: 15:22 snw 11/18 15:04 Order name: O2 Per Protocol; Complete Time: 15:22 snw 11/18 15:04 Order name: O2 Sat Monitoring; Complete Time: 15:22 snw 11/18 18:50 Order name: CONS Physician Consult EDMS Administered Medications: 11/18 15:20 Drug: Lopressor 5 mg Route: IVP; Site: left antecubital; jl7 15:25 Drug: Lopressor 5 mg Route: IVP; Site: left antecubital; jl7 15:40 Drug: Lopressor 5 mg Route: IVP; Site: left antecubital; jl7 16:00 Follow up: Response: No adverse reaction; Blood pressure is unchanged jl7 15:58 Drug: cloNIDine 0.2 mg Route: PO; jl7 16:53 Follow up: Response: Blood pressure is lowered jl7 16:00 Drug: Lasix 40 mg Route: IVP; Site: left antecubital; jl7 16:53 Follow up: Response: No adverse reaction jl7 16:16 Drug: Xopenex (3) 1.25 mg Route: Inhalation; jl7 16:53 Follow up: Response: No adverse reaction 7 21:20 Drug: [place] 5 mg-325 mg 1 tabs Route: PO; rr5 21:30 Follow up: Response: Other; given prior admission to room 220 rr5 Disposition: 11/19/19 18:15 Hospitalization ordered by Tom Bermeo for Inpatient Admission. Preliminary diagnosis are Hypokalemia, Acute Renal Failure. - Bed requested for Telemetry/MedSurg (Inpatient). - Status is Inpatient Admission. rr5 - Condition is Serious. - Problem is an acute exacerbation. - Symptoms have improved. Signatures: Dispatcher [employer] EDMS Danii Lancaster RN RN Rohan Sosa MD MD kdr Fabiola Vázquez, SUPERVISOR CUTTING AND SEWING ROOM-C SUPERVISOR CUTTING AND SEWING ROOM-Csnw Katarzyna Ramos RN RN Tarik Shepherd RN RN jl7 Toby Cruz RN RN rr5 Corrections: (The following items were deleted from the chart) 18:19 18:15 Hospitalization Ordered by Tom Bermeo MD for Inpatient Admission. Preliminary kdr diagnosis is Hypokalemia. Bed requested for Telemetry/MedSurg (Inpatient). Status is Inpatient Admission. Condition is Serious. Problem is an acute exacerbation. Symptoms have improved. kdr 20:49 18:19 11/19/2019 18:15 Hospitalization Ordered by Tom Bermeo MD for Inpatient Admission. Preliminary diagnosis is Hypokalemia; Acute Renal Failure. Bed requested for Telemetry/MedSurg (Inpatient). Status is Inpatient Admission. Condition is Serious. Problem is an acute exacerbation. Symptoms have improved. kdr 21:37 20:49 11/19/2019 18:15 Hospitalization Ordered by Tom Bermeo MD for Inpatient rr5 Admission. Preliminary diagnosis is Hypokalemia; Acute Renal Failure. Bed requested for Telemetry/MedSurg (Inpatient). Status is Inpatient Admission. Condition is Serious. Problem is an acute exacerbation. Symptoms have improved.
--- NOTE | 2019-11-19 18:16 | ER ---
Nurse's Notes [facility] Name: Nely Quinones Age: 34 yrs Sex: Female : 1985 Arrival Date: 11/19/2019 Time: 14:35 Bed 3 Private MD: Diagnosis: Hypokalemia;Acute Renal Failure Presentation: 11/18 14:48 Chief complaint: Patient states: chest tightness, shortness of breath and bilateral leg ss swelling that began 1 week ago. Coronavirus screen: Proceed with normal triage. Patient denies a cough. Patient denies shortness of breath or difficulty breathing. Patient denies measured and/or subjective temperature greater than 100.4F prior to today's visit. Patient denies travel on a cruise ship or to a country the [facility] currently lists as an affected area. Patient denies contact with known and/or suspected case of COVID-19. Ebola Screen: Patient negative for fever greater than or equal to 101.5 degrees Fahrenheit, and additional compatible Ebola Virus Disease symptoms Patient denies exposure to infectious person. Patient denies travel to an Ebola-affected area in the 21 days before illness onset. Initial Sepsis Screen: Does the patient meet any 2 criteria? No. Patient's initial sepsis screen is negative. Does the patient have a suspected source of infection? No. Patient's initial sepsis screen is negative. Risk Assessment: Do you want to hurt yourself or someone else? Patient reports no desire to harm self or others. Onset of symptoms was November 12, 2019. 14:48 Method Of Arrival: Ambulatory ss 14:48 Acuity: [place] 2 ss Triage Assessment: 14:50 General: Appears in no apparent distress. uncomfortable, Behavior is cooperative, bp appropriate for age, anxious. Pain: Complains of pain in chest. EENT: No deficits noted. Neuro: No deficits noted. Cardiovascular: Rhythm is sinus rhythm. Respiratory: No deficits noted. GI: No signs and/or symptoms were reported involving the gastrointestinal system. : No signs and/or symptoms were reported regarding the genitourinary system. Derm: No deficits noted. Musculoskeletal: Swelling present in right leg and left leg. 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 - Social history:: Smoking status: Patient reports the use of cigarette tobacco products, denies chronic smoking, but will smoke occasionally. Screenin:27 Abuse screen: Denies threats or abuse. Denies injuries from another. Nutritional bp screening: No deficits noted. Tuberculosis screening: No symptoms or risk factors identified. Fall Risk None identified. Assessment: 14:50 General: SEE TRIAGE NOTE. bp 15:00 General: Appears distressed, uncomfortable, Behavior is cooperative, appropriate for jl age, anxious. Pain: Complains of pain in chest Pain does not radiate. Pain currently is 10 out of 10 on a pain scale. Quality of pain is described as pressure, Pain began 2-3 days ago. Is continuous. Neuro: Level of Consciousness is awake, alert, obeys commands, Oriented to person, place, time, situation. Cardiovascular: Patient's skin is warm and dry. Edema is 2+ to bilateral lower extremities. Respiratory: Airway is patent Respiratory effort is even, labored, Respiratory pattern is symmetrical, tachypnea. GI: No signs and/or symptoms were reported involving the gastrointestinal system. : No signs and/or symptoms were reported regarding the genitourinary system. EENT: Oral mucosa is dry. Derm: Skin is dry, Skin is normal, Skin temperature is warm. 16:00 Reassessment: Patient appears in no apparent distress at this time. No changes from jl7 previously documented assessment. Patient and/or family updated on plan of care and expected duration. Pain level reassessed. Patient is alert, oriented x 3, equal unlabored respirations, skin warm/dry/pink. 16:45 Reassessment: Assisted pt to bedside commode. jl7 18:21 Reassessment: Patient appears in no apparent distress at this time. No changes from jl7 previously documented assessment. Patient and/or family updated on plan of care and expected duration. Pain level reassessed. Patient is alert, oriented x 3, equal unlabored respirations, skin warm/dry/pink. 19:20 General: Appears in no apparent distress. Behavior is cooperative, appropriate for age. rr5 Pain: Complains of pain in chest Pain does not radiate. Pain Quality of pain is described as pressure, Pain began 2-3 days ago. Is continuous. Neuro: Level of Consciousness is awake, alert, obeys commands, Oriented to person, place, time, situation. Cardiovascular: Reports chest pain, Capillary refill < 3 seconds Patient's skin is warm and dry. Edema is 2+ to left ankle, left toes, right ankle and right toes. Respiratory: Reports shortness of breath Airway is patent Respiratory effort is even, unlabored, Respiratory pattern is regular, symmetrical. Derm: Skin is dry, Skin temperature is warm. Musculoskeletal: Circulation, motion, and sensation intact. Capillary refill < 3 seconds. 20:20 Reassessment: Patient appears in no apparent distress at this time. No changes from rr5 previously documented assessment. awaiting for room assignment. 21:15 Reassessment: Patient appears in no apparent distress at this time. Patient is alert, rr5 oriented x 3, equal unlabored respirations, skin warm/dry/pink. hospitalist dr. jewell informed patient complaining of chest pain. with telephone order made with positive readback. Vital Signs: 14:48 BP 190 / 130; Pulse 87; Resp 16; Temp 99.2(TE); Pulse Ox 97% on R/A; Height 5 ft. 2 in. ss (157.48 cm); Pain 10/10; 15:05 BP 198 / 123; Pulse 87; Resp 26; Pulse Ox 100% ; jl7 15:30 BP 184 / 119; Pulse 75; Resp 28; Pulse Ox 100% ; jl7 15:50 BP 180 / 123; Pulse 70; Resp 27; Pulse Ox 99% ; jl7 16:10 BP 179 / 120; Pulse 72; Resp 25; Pulse Ox 100% ; jl7 16:53 BP 163 / 101; Pulse 77; Resp 23; Pulse Ox 97% ; jl7 18:21 BP 175 / 106; Pulse 72; Resp 26; Pulse Ox 100% ; jl7 19:15 BP 185 / 112; Pulse 80; Resp 24; Pulse Ox 99% ; rr5 20:50 BP 171 / 102; Pulse 75; Resp 22; Pulse Ox 98% ; rr5 21:28 BP 175 / 112; Pulse 76; Resp 20; Temp 97.8; Pulse Ox 99% ; rr5 ED Course: 14:35 Patient arrived in ED. mr 14:50 Triage completed. ss 14:51 Arm band placed on right wrist. ss 15:01 Michele Yeager, CHELA is Primary Nurse. bp 15:05 Missed attempt(s): 22 gauge in right antecubital area. Bleeding controlled, band aid aa5 applied, catheter tip intact. 15:10 Initial lab(s) drawn. Inserted saline lock: 20 gauge in left antecubital area, using aa5 aseptic technique. Blood collected. 15:10 EKG done, by ED staff, reviewed by Rohan Sosa MD. dh3 15:20 Rohan Sosa MD is Attending Physician. kdr 15:27 Patient has correct armband on for positive identification. Bed in low position. Call bp light in reach. Side rails up X2. burlap worker on. Pulse ox on. NIBP on. 15:40 Chest Single View XRAY In Process Unspecified. EDMS 16:57 Patient maintains SpO2 saturation greater than 95% on room air. jl7 16:58 Tarik Shepherd, CHELA is Primary Nurse. jl7 18:14 Tom Bermeo MD is Hospitalizing Provider. kdr 21:00 Missed attempt(s): 22 gauge in right antecubital area. 24 gauge in left hand. Bleeding ds4 controlled, band aid applied, catheter tip intact. 21:05 Inserted saline lock: 22 gauge in right hand, using aseptic technique. rr5 21:20 No provider procedures requiring assistance completed. Patient admitted, IV remains in rr5 place. intact, No redness/swelling at site. Administered Medications: 15:20 Drug: Lopressor 5 mg Route: IVP; Site: left antecubital; jl7 15:25 Drug: Lopressor 5 mg Route: IVP; Site: left antecubital; jl7 15:40 Drug: Lopressor 5 mg Route: IVP; Site: left antecubital; jl7 16:00 Follow up: Response: No adverse reaction; Blood pressure is unchanged jl7 15:58 Drug: cloNIDine 0.2 mg Route: PO; jl7 16:53 Follow up: Response: Blood pressure is lowered jl7 16:00 Drug: Lasix 40 mg Route: IVP; Site: left antecubital; jl7 16:53 Follow up: Response: No adverse reaction jl7 16:16 Drug: Xopenex (3) 1.25 mg Route: Inhalation; jl7 16:53 Follow up: Response: No adverse reaction jl7 21:20 Drug: [place] 5 mg-325 mg 1 tabs Route: PO; rr5 21:30 Follow up: Response: Other; given prior admission to room 220 rr5 Intake: Outcome: 18:15 Decision to Hospitalize by Provider. [facility] 21:24 Admitted to Med/surg accompanied by tech, via stretcher, room 220, with chart, Report rr5 called to zana 21:24 Condition: stable 21:24 Instructed on the need for admit. 21:37 Patient left the ED. rr5 Signatures: Dispatcher [employer] EDMS Rohan Sosa MD MD kdr Steele, Nely mr Gage, Amada, RN RN aa5 Katarzyna Ramos RN RN Vipul Blum4 Tarik Shepherd RN RN jl7 Maira Rader 3 Michele Yeager RN RN Toby Simpson, RN RN rr5 Corrections: (The following items were deleted from the chart) 15:20 15:19 Missed attempt(s): 22 gauge in right antecubital area. Bleeding controlled, band aa5 aid applied, catheter tip intact. aa5
[2019-11-19] MEDS: POTASSIUM 25 MEQ EFFERV TAB PO ONE ×2 (18:47→21:45)
[2019-11-19] MEDS ORDERED: DOXAZOSIN 2 MG TAB PO SCH (21:00)
--- NOTE | 2019-11-19 21:14 | P.HP ---
Certification for Inpatient Patient admitted to: Observation With expected LOS: <2 Midnights Practitioner: I am a practitioner with admitting privileges, knowledge of patient current condition, hospital course, and medical plan of care. Services: Services provided to patient in accordance with Admission requirements found in Title 42 Section 412.3 of the Code of Federal Regulations Patient History Date of Service: 11/19/19 Reason for admission: Shortness of breath History of Present Illness: 34 old woman with a history of chronic kidney disease, history of hypertension presented emergency department with a complaint of shortness of breath of sudden onset, which occured today. Patient reports orthopnea and paroxysmal nocturnal dyspnea. She also reports chest pain worse with deep breathing. He has chronic kidney disease stage 5 and she is followed by Dr. Monge. Her chest x-ray in the ED demonstrated pulmonary edema. Patient is placed under observation for further management. Allergies No Known Allergies Allergy (Unverified 09/24/19 12:51) Home Medications: Amlodipine [Norvasc*] 10 mg PO BID #60 tab 09/28/19 Cholecalciferol (Vitamin D3) [Vitamin D 5,000 IU Cap*] 5,000 unit PO DAILY #30 cap 09/28/19 Docusate [Colace Cap*] 100 mg PO BID cap 09/28/19 Doxazosin [Cardura*] 2 mg PO BID #60 tab 09/28/19 Metoprolol Tartrate [Lopressor*] 12.5 mg PO BID #60 tab 09/28/19 Oseltamivir Phosphate [Tamiflu Suspension] 5 ml PO DAILY #10 ud 09/28/19 - Past Medical/Surgical History Diabetic: No -: HTN -: Asthma -: C Section -: Tubal Ligation - Social History Alcohol use: No CD- Drugs: No Caffeine use: No Review of Systems Other: Except as documented, all other systems reviewed and negative. Physical Examination - Physical Exam General: Alert, In no apparent distress, Oriented x3 HEENT: PERRLA, Mucous membr. moist/pink Neck: Supple, JVD not distended Respiratory: Crackles/rales (Mild bibasilar rales) Cardiovascular: Regular rate/rhythm, Normal S1 S2, Edema (2+ bilateral lower extremity pitting edema) Capillary refill: <2 Seconds Gastrointestinal: Normal bowel sounds, Soft and benign, Non-distended, No ascites Musculoskeletal: No clubbing, No erythema Integumentary: No rashes Neurological: Normal speech, Normal strength at 5/5 x4 extr - Studies Laboratory Data (last 24 hrs) 11/19/19 15:10: PT 11.8, INR 1.00 11/19/19 15:10: WBC 7.8, Hgb 8.5 L, Hct 26.2 L, Plt Count 371 11/19/19 15:10: Sodium 137, Potassium 3.0 L, BUN 99 H, Creatinine 12.30 H*, Glucose 101, Magnesium 2.3, Total Bilirubin 0.5, AST 27, ALT 36, Alkaline Phosphatase 95 Assessment and Plan - Problems (Diagnosis) (1) Pulmonary edema Current Visit: Yes Status: Acute (2) Chronic kidney disease, stage 5 Current Visit: Yes Status: Acute (3) Anemia in chronic kidney disease Current Visit: Yes Status: Acute - Plan Place under observation. Consulting nephrology. Trial of IV Lasix per nephrology Supplemental oxygen as needed Hydralazine IV p.r.n. for BP spikes Continue home antihypertensives. [place] p.r.n. for pain. - Advance Directives Does patient have a Living Will: No Does patient have a Durable POA for Healthcare: No
[2019-11-19] MEDS ORDERED: HYDROCODONE/APAP 5/325 MG TAB ONE (21:26)
[2019-11-19 21:43] VITALS: BMI 29.5
[2019-11-19] MEDS ORDERED: ALBUTEROL 2.5 MG/3 ML NEB SOL NEB PRN (21:54)
[2019-11-19 23:03] LABS: Urine Appearance CLEAR; Urine Bilirubin NEGATIVE (NEG); Urine Blood 1+ (NEG); Urine Color YELLOW; Urine Glucose NEGATIVE (NEG); Urine Protein 2+ (NEG); Urine Urobilinogen 0.2 mg/dL (0.2-1.0); Urine pH 6.5 (5.0-7.0)
[2019-11-19 23:06] LABS: Urine Microscopic Reflex ORDER UMIC
[2019-11-20 00:14] LABS: Urine Bacteria <20 /HPF (<20); Urine Culture Reflex Order NOT NEEDED; Urine RBC <5 /HPF (NONE SEEN)
[2019-11-20] MEDS: HEPARIN 5000 UNIT/ML 1 ML VIAL SQ SCH ×2 (00:35→08:59)
[2019-11-20] MEDS: HYDRALAZINE HCL 20 MG/ML VIAL IV PRN ×5 (01:10→21:41)
[2019-11-20] MEDS: HYDROCODONE/APAP 5/325 MG TAB PO PRN ×2 (04:31→17:32)
--- NOTE | 2019-11-20 06:36 | EKG ---
Test Date: 2019-11-19 Test Time: 15:10:07 Venetian Blind Washer: JENNIFER MEASUREMENT RESULTS: Intervals: Rate: 83 NC: 148 QRSD: 78 QT: 432 QTc: 507 [place]: P: 25 NC: 148 QRS: 46 T: 28 INTERPRETIVE STATEMENTS: Normal sinus rhythm Possible Left atrial enlargement Prolonged QT Abnormal ECG Compared to ECG 09/24/2019 09:25:00 Prolonged QT interval now present Left ventricular hypertrophy no longer present T-wave abnormality no longer present Electronically Signed On 11-20-19 06:34:40 CDT by Eldon Huddleston
[2019-11-20 06:51] LABS: Absolute Lymphocytes (CBC) 0.8 K/uL (0.7-4.9); Basophils % 1.3 % (0-1.3); Hematocrit 23.9 % (36.0-45.0); Lymphocytes % 11.2 % (15.3-44.8); MPV 7.5 fL (7.6-11.3); RBC Red Blood Cell Count 3.09 M/uL (3.86-4.86)
[2019-11-20 07:30] LABS: Phosphorus 7.4 mg/dL (2.5-4.9)
[2019-11-20 07:37] LABS: Potassium 2.9 mmol/L (3.5-5.1)
[2019-11-20] MEDS ORDERED: DIPHENHYDRAMINE 50 MG/ML VIAL IV ONE (07:40)
[2019-11-20] MEDS ORDERED: FUROSEMIDE 40 MG/4 ML VIAL IV ONE ×2 (07:40→17:00)
[2019-11-20] MEDS ORDERED: ACETAMINOPHEN 500 MG TAB PO ONE (07:40)
[2019-11-20 07:43] LABS: Anisocytosis 2+; Blood Morphology Comment NOTED (NOT SEEN); Platelet Estimate ADEQ; Urine White Blood Cell Casts OK
[2019-11-20] MEDS ORDERED: NA CHLORIDE 0.9% 250 ML IV SCH (08:00)
[2019-11-20] MEDS ORDERED: POTASSIUM 25 MEQ EFFERV TAB PO ONE ×2 (08:09→17:00)
[2019-11-20] MEDS ORDERED: AMLODIPINE 10 MG TAB PO SCH (09:00)
[2019-11-20] MEDS: ONDANSETRON 4 MG/2 ML VIAL IV PRN ×2 (10:45→18:18)
[2019-11-20] MEDS ORDERED: NA CHLORIDE 0.9% 250 ML ONE (12:12)
[2019-11-20] MEDS ORDERED: ALBUTEROL 2.5 MG/3 ML NEB SOL NEB PRN (16:00)
--- NOTE | 2019-11-20 16:40 | P.CNS ---
Date of Consult: 11/20/19 Reason for Consult: MARLY Requesting Physician: patrick jewell Chief Complaint: Shortness of breath History of Present Illness: 34 yo BF CKD, HTN presented to the ER with moderate, progressive dyspnea in the setting of uncontrolled HTN with associated edema. 34 old woman with a history of chronic kidney disease, history of hypertension presented emergency department with a complaint of shortness of breath of sudden onset, which occured today. Patient reports orthopnea and paroxysmal nocturnal dyspnea. She also reports chest pain worse with deep breathing. He has chronic kidney disease stage 5 and she is followed by Dr. Monge. Her chest x-ray in the ED demonstrated pulmonary edema. Patient is placed under observation for further management. Allergies No Known Allergies Allergy (Verified 11/19/19 21:40) Home medications list reviewed: Yes Home Medications: Amlodipine [Norvasc*] 10 mg PO DAILY 11/19/19 Calcitriol [Rocaltrol] 2 tab PO DAILY 11/19/19 Cholecalciferol (Vitamin D3) [Vitamin D 5,000 IU Cap*] 5,000 units PO DAILY 11/19/19 Doxazosin [Cardura*] 2 mg PO BID 11/19/19 Metoprolol Succinate [Toprol Xl*] 12.5 mg PO BID 11/19/19 - Past Medical/Surgical History Diabetic: No -: HTN -: Asthma -: C Section -: Tubal Ligation - Social History Smoking Status: Current some day smoker Alcohol use: No CD- Drugs: No Caffeine use: No Place of Residence: Home Review of Systems 10-point ROS is otherwise unremarkable General: Weakness, Malaise Respiratory: SOB with Excertion Cardiovascular: Edema Neurological: Weakness Physical Examination Temp Pulse Resp BP Pulse Ox 98.2 F 83 18 172/110 H 95 11/20/19 16:00 11/20/19 16:00 11/20/19 16:00 11/20/19 16:00 11/20/19 16:00 General: Oriented x3, Cooperative HEENT: Atraumatic Neck: Supple Respiratory: Diminished Cardiovascular: Regular rate/rhythm, Edema Gastrointestinal: Soft and benign, Non-distended Musculoskeletal: No clubbing, No contractures Integumentary: No rashes, No cyanosis Neurological: Normal speech Laboratory Data (last 24 hrs) 11/20/19 05:24: Troponin I 0.04 11/20/19 05:24: Sodium 135 L, Potassium 2.9 L*, BUN 102 H, Creatinine 12.40 H*, Glucose 117 H, Phosphorus 7.4 H 11/20/19 05:24: WBC 7.5, Hgb 7.8 L*, Hct 23.9 L, Plt Count 317 Imagings Data: EXAM DESCRIPTION: Joseph Single View11/19/2019 3:38 pm CLINICAL HISTORY: Chest pain COMPARISON: none FINDINGS: Mild bilateral pulmonary opacities Heart is moderately enlarged IMPRESSION: Mild bilateral pulmonary opacities may indicate mild pulmonary edema Conclusions/Impression: A/ MARLY suspicious for ESRD likely due to HTN nephrosclerosis. Hyponatremia Hypokalemia Acidosis Hypocalcemia. HyperPO4. HTN with CKD. Edema. Anemia in chronic illness. Iron deficiency. P/ Continue current POC and Medications. Renal biopsy bowen. Counseled the patient regarding possible ESRD. Recommend placing a HD CVC and starting dialysis. Start Vitamin D and PO4 binder. Increase anti-hypertensives. Give Procrit. Give IV Iron. Replete potassium. Start oral bicarb. Give Lasix and spironolactone. No NSAIDs. AM labs. Daily weight. Thank you kindly for the consultation.
[2019-11-20] MEDS ORDERED: EPOETIN ALFA-EPBX 10,000 UNIT/ML VIAL SQ ONE (17:00)
[2019-11-20] MEDS: SPIRONOLACTONE 25 MG TABLET PO SCH (17:09)
[2019-11-20] MEDS: SODIUM BICARB 325 MG TAB PO SCH (17:09)
[2019-11-20] MEDS: SEVELAMER CARBONATE 800 MG TABLET PO SCH (17:10)
[2019-11-20] MEDS ORDERED: SOD FERRIC GLUC COMPLX/SUCROSE 125 MG in NA CHLORIDE 0.9% 100 ML IV ONE (18:00)
[2019-11-20] MEDS: carvediloL 12.5 MG TAB PO SCH (18:21)
[2019-11-20 19:44] LABS: Hematocrit 29.1 % (36.0-45.0)
[2019-11-20] MEDS: NIFEDIPINE XL 30 MG TABLET PO SCH (20:13)
[2019-11-20] MEDS: DOCUSATE NA 100 MG CAP PO SCH (20:13)
[2019-11-21] MEDS: HYDROCODONE/APAP 5/325 MG TAB PO PRN (00:20)
[2019-11-21] MEDS ORDERED: TRAZODONE 50 MG TABLET PO ONE (00:34)
[2019-11-21] MEDS: POLYETHYL GLY 3350 17 GM/DOSE PO ONE ×2 (00:35→01:18)
[2019-11-21] MEDS ORDERED: BISACODYL E.C. 5 MG TAB PO ONE (01:25)
[2019-11-21] MEDS ORDERED: BISACODYL 10 MG RECTAL SUPP PR ONE (01:59)
[2019-11-21] MEDS: HYDRALAZINE HCL 20 MG/ML VIAL IV PRN ×2 (04:39→17:09)
[2019-11-21] MEDS: carvediloL 12.5 MG TAB PO SCH ×2 (06:02→18:27)
[2019-11-21] MEDS: ONDANSETRON 4 MG/2 ML VIAL IV PRN ×3 (06:23→18:27)
[2019-11-21 06:32] LABS: Basophils % 0.6 % (0-1.3); Hematocrit 28.7 % (36.0-45.0); Lymphocytes % 10.3 % (15.3-44.8); MPV 7.4 fL (7.6-11.3); RBC Red Blood Cell Count 3.62 M/uL (3.86-4.86)
--- NOTE | 2019-11-21 07:22 | RAD REPORT ---
EXAM DESCRIPTION: RAD - Abdomen 1 View (KUB) - 11/21/2019 1:14 am CLINICAL HISTORY: Abdominal pain COMPARISON: Abdomen 1 View (KUB) dated 09/27/2019 FINDINGS: Bowel gas pattern is non-specific. A few mildly prominent small bowel loops are present. S tool volume on the left side colon is moderate. No obstruction, free air or pneumatosis. Left-sided p elvic floor calcification was present on the prior study in believed to be a phlebolith. There are 2 faint calcifications on the right 1 of which was present previously. Prior study is limited in terms of comparison. Ureteral calculus is not excluded but would need correlation with right renal colic sy mptoms. No significant bony findings IMPRESSION: No bowel obstruction, free air or emergent finding seen. A few small bowel loops are mildly prominent. A minimal ileus or enteritis is possible. Right-side calcifications along the pelvic floor are probably phleboliths rather than distal ureteral calculus. Correlation is needed with any renal colic symptoms.
[2019-11-21 07:30] LABS: Albumin 2.9 g/dL (3.4-5.0); Bilirubin Total 0.6 mg/dL (0.2-1.0); Potassium 3.4 mmol/L (3.5-5.1); Protein, Total 6.3 g/dL (6.4-8.2); Uric Acid 12.3 mg/dL (2.6-6.0)
[2019-11-21] MEDS: SEVELAMER CARBONATE 800 MG TABLET PO SCH ×4 (08:00→17:10)
[2019-11-21 08:05] LABS: Protime INR 1.1
--- NOTE | 2019-11-21 08:13 | P.PN ---
Subjective Date of Service: 11/20/19 Chief Complaint: Shortness of breath Patient stated shortness of breath is better today. She is currently not orthopneic. Physical Examination - Vital Signs Temperature: 98.5 F Blood Pressure: 160/83 Pulse: 82 Respirations: 16 Pulse Ox (%): 99 - Physical Exam General: Alert, In no apparent distress Neck: Supple, JVD not distended Respiratory: Clear to auscultation bilaterally, Normal air movement Cardiovascular: Regular rate/rhythm, Normal S1 S2, Edema (Bilateral lower extremities) Gastrointestinal: Normal bowel sounds, Soft and benign, No tenderness Musculoskeletal: No erythema Integumentary: No rashes Neurological: Normal speech, Normal strength at 5/5 x4 extr - Studies Microbiology Data (last 24 hrs): 11/20/19 04:18 Nasopharnyx Coronavirus COVID-19 PCR - Final Assessment And Plan - Current Problems (Diagnosis) (1) Pulmonary edema Current Visit: Yes Status: Acute (2) Chronic kidney disease, stage 5 Current Visit: Yes Status: Acute (3) Anemia in chronic kidney disease Current Visit: Yes Status: Acute - Plan Nephrology to see patient. Supplemental oxygen as needed Hydralazine IV p.r.n. for BP spikes Continue home antihypertensives. [place] p.r.n. for pain. Monitor hemoglobin and transfuse p.r.n.
--- NOTE | 2019-11-21 08:18 | P.PN ---
Subjective Date of Service: 11/21/19 Chief Complaint: Shortness of breath Patient multiple complaints last night including abdominal pain, constipation and hemorrhoids. KUB done overnight was unremarkable. Patient had bowel movement with Dulcolax suppository. Nursing staff reports first-degree hemorrhoid. Physical Examination - Vital Signs Temperature: 98.5 F Blood Pressure: 160/83 Pulse: 82 Respirations: 16 Pulse Ox (%): 99 - Physical Exam General: Alert, In no apparent distress Neck: Supple, JVD not distended Respiratory: Clear to auscultation bilaterally, Normal air movement Cardiovascular: Regular rate/rhythm, Normal S1 S2, Edema (Bilateral lower extremities) Gastrointestinal: Normal bowel sounds, Soft and benign, No tenderness, No rebound, No guarding, Other (Protruberant) Musculoskeletal: No erythema Integumentary: No rashes Neurological: Normal speech, Normal strength at 5/5 x4 extr - Studies Microbiology Data (last 24 hrs): 11/20/19 04:18 Nasopharnyx Coronavirus COVID-19 PCR - Final Assessment And Plan - Current Problems (Diagnosis) (1) Pulmonary edema Current Visit: Yes Status: Acute (2) Chronic kidney disease, stage 5 Current Visit: Yes Status: Acute (3) Anemia in chronic kidney disease Current Visit: Yes Status: Acute (4) Hemorrhoid Current Visit: Yes Status: Acute - Plan Nephrology input appreciated. Patient scheduled to have renal biopsy done today. Nephrology is considering initiating hemodialysis. Supplemental oxygen as needed Hydralazine IV p.r.n. for BP spikes Continue home antihypertensives. [place] p.r.n. for pain. Status post 1 unit PRBC transfusion. Continue to monitor hemoglobin. Epogen per Nephrology. Hemorrhoid management as an outpatient unless she bleed or prolapse.
[2019-11-21] MEDS: NIFEDIPINE XL 30 MG TABLET PO SCH ×2 (08:54→20:02)
[2019-11-21] MEDS: SODIUM BICARB 325 MG TAB PO SCH ×3 (08:54→17:09)
[2019-11-21] MEDS: DOCUSATE NA 100 MG CAP PO SCH ×2 (08:54→20:02)
[2019-11-21] MEDS: VITAMIN D 5,000 UNIT CAP PO SCH (08:54)
[2019-11-21] MEDS: SPIRONOLACTONE 25 MG TABLET PO SCH (08:54)
[2019-11-21] MEDS: CALCITROL 0.25 MCG CAP PO SCH (08:55)
[2019-11-21] MEDS ORDERED: KCL 20 MEQ/100 mL IVPB 20 MEQ/100 ML BAG IV SCH (10:00)
[2019-11-21] MEDS ORDERED: FLUMAZENIL 0.1 MG/ML (5 mL VIAL) IV ONE (10:43)
[2019-11-21] MEDS ORDERED: NALOXONE 0.4 MG/ML VIAL ONE (10:43)
[2019-11-21] MEDS ORDERED: MIDAZOLAM HCL 2 MG/2 ML INJ ONE (10:43)
[2019-11-21] MEDS ORDERED: FENTANYL CITR 100 MCG/2 ML ONE (10:43)
[2019-11-21] MEDS ORDERED: NA CHLORIDE 0.9% 0 ML ONE (10:53)
[2019-11-21] MEDS ORDERED: NA CHLORIDE 0.9% 500 ML ONE (10:54)
--- NOTE | 2019-11-21 12:37 | RAD REPORT ---
EXAM DESCRIPTION: CT - Abdomen Pelvis Wo Contrast - 11/21/2019 11:39 am CLINICAL HISTORY: Abdominal pain. COMPARISON: No comparisons TECHNIQUE: Axial [address] imaging of the abdomen and pelvis was performed without IV contrast. No IV contrast was given because of allergy, abnormal renal function, patient refusal or physician re quest. No oral contrast administered. All CT scans are performed using dose optimization technique as appropriate and may include automated exposure control or mA/KV adjustment according to patient size. FINDINGS: Cardiomegaly is present. Very minimal pericardial effusion seen. Patient has small bilater al pleural effusions. There is atelectasis in the posterior gutter on the right. No focal liver lesions seen on noncontrast imaging. No splenomegaly or focal splenic finding. No focal pancreatic abnormality seen. Gallbladder and biliary tree are also without suspicious findin g. Gallstones can be occult on CT imaging. No hydronephrosis or suspicious renal mass. Urinary bladder is contracted limiting assessment. No gr oss evidence for bladder wall thickening, bladder wall mass or bladder calcification. Isodense renal masses and pyelonephritis cannot be excluded in the absence of IV contrast. No uterine abnormality. O varies cannot be distinguished from adjacent on opacified bowel. No suspicion for an ovarian abnormal ity or mass. Stomach is decompressed. No gastric wall thickening or mass identifiable. No dilated small bowel loop s. [place] of the cecum and ascending colon to the hepatic flexure are mildly thickened. This is probab ly a metabolic process rather than colitis. Appendix is not abnormal. No free air or pneumatosis. Small amount of ascites is present adjacent to the liver, spleen and in t he dependent portion of the pelvis. Anasarca pattern is seen in the subcutaneous fatty tissues of the lower chest and abdomen. No hernia, mass or bulky lymphadenopathy. No omental thickening. No suspicious bony findings. IMPRESSION: No bowel obstruction, free air or surgically emergent finding. Wall thickening throughout the right-side of the colon probably metabolic from electrolyte imbalance or other systemic process. Cardiomegaly, small pleural effusions and anasarca pattern in the subcutaneous tissues. Patient has s mall amount of ascites. Full assessment is limited is the absence of IV contrast.
--- NOTE | 2019-11-21 15:22 | RAD REPORT ---
EXAM DESCRIPTION: CT - Abdomen Wo Contrast - 11/21/2019 2:28 pm CLINICAL HISTORY: RENAL BX COMPARISON: No comparisons TECHNIQUE: Axial 5 millimeter thick images of the abdomen were obtained with the patient in prone po sitioning. No IV contrast was administered. No oral contrast administered peer All CT scans are performed using dose optimization technique as appropriate and may include automated exposure control or mA/KV adjustment according to patient size. FINDINGS: The patient presented for image guided diagnostic renal biopsy due to renal failure findin gs. A separate CT abdomen and pelvis report was generated prior to this examination. The biopsy procedure, risks and alternatives were discussed with the patient in detail. Both oral and written consent were obtained. Time out procedure was performed. IV access and physiologic monitors were in place. Patient was hypertensive. Blood pressure measurements were in the upper 140s systolic and upper 80s d iastolic. This is borderline acceptable for biopsy. Patient was previously medicated on the floor. The patient was administered 1 milligram Versed at IV and 100 micrograms fentanyl in anticipation of a renal biopsy. There was no change to blood pressure. Preliminary images were obtained with the patient prone on the CT table. Due to deep posterior reflec tions of the colic gutters, colon was interposed between the skin and the right kidney blocking all a ccess for biopsy. Colon was interposed between the skin and most of the left kidney. The accessible p ortions of the right kidney were not deemed safe for biopsy due to the increased vascularity in the c entral portions of the kidney. Therefore, the biopsy was canceled due to lack of accessible window to safely perform the procedure. Patient's vital signs were stable throughout the procedure. Conscious sedation time was approximately 30 minutes. IMPRESSION: Renal biopsy procedure was canceled due to lack of an accessible window to safely perfor m the procedure.
--- NOTE | 2019-11-21 18:28 | PN ---
Date of Progress Note: 11/21/2019 Subjective/interval History: Patient was taken for kidney biopsy, but it could not be done because o f volume overload and anasarca noted. Also, blood pressure was noted to be high and hence, she was s ent back to the floor. Patient and her mother were there and have discussed at length regarding her kidney prognosis. Physical Examination: Vital signs: At this time are showing temperature of 97.7, pulse rate of 81, respiratory rate of 19, and blood pressure 150/85. General: She appears to have anasarca. HEENT: Atraumatic head. Lungs: Auscultation of lungs revealed diminished breath sounds at bilateral bases. Abdomen: Slightly distended with no evidence of rebound or guarding. Extremities: Showed anasarca. Laboratory Data: At this time are showing sodium of 136, potassium of 3.4, chloride of 98, BUN of 10 0 and creatinine of 12.7, which seems to be getting worse. Calcium is 7.7. ProBNP was elevated. Al bumin was low at 2.9. CBC showed a hemoglobin of 9.5, hematocrit of 28.7, and platelet count of 334. Current Medications: Include Retacrit 20,000 units 1 time dose. Lasix 1 time doses have been given. She is on hydrocodone as needed for pain. Sodium bicarbonate, nifedipine, Zofran, potassium 1 time dose, Renvela, spironolactone, and trazodone. Impression: 1.Possible stage 5 chronic kidney disease, progressing on to end-stage renal disease. Patient with severe volume overload, anasarca, and uremic symptoms. I have discussed at length regarding her opti ons at this time, which included the initiation of dialysis and referral to transplant center once sh e is more stable as outpatient for initiation of transplant workup. Patient states that she does not want to get the dialysis catheter, but wants to get a fistula done. I have explained to her that af ter the fistula gets placed, it takes about 2 to 3 months for the fistula to fully developed for us t o be using it for dialysis and at this time in order to improve her symptoms, a dialysis catheter wou ld be our only option. Patient was agreeable after explanation was given. We have requested a consu lt with Dr. Lazo to get tunneled dialysis catheter placed and initiate dialysis after the cathete r is placed. We will also request social work consult for placement at [facility] and also we will request hepatitis panel to get her placed at the dialysis unit. 2.Anemia secondary to end-stage renal disease. Patient is receiving Epogen at this time. We will c ontinue with the Epogen and monitor her hemoglobin closely. I have explained to her the need for Epo gen and to prevent blood transfusions to improve her chances of renal transplant. 3.Hypertension, currently stable. 4.Mild hypokalemia, can be monitored on spironolactone. 5.Volume overload with anasarca and pleural effusion. We will need to put her on p.o. Lasix and we will continue to monitor her volume status and follow up closely after dialysis to do ultrafiltration and improve her volume status. Plan: Overall, patient has stage 5 CKD, likely from longstanding uncontrolled hypertension. Renal b iopsy could not be done. We will possibly get it done later on if renal function does not recovering . At this time, we will initiate dialysis and I have reviewed the CT scan reports with her and her m other in detail and I have reviewed all the options at this time. They are agreeable to do dialysis after discussing all the risks and benefits. We will follow up closely. RAYRAY/ADAM Voice ID: [id number] Report ID: [id number]
[2019-11-21] MEDS ORDERED: LORAZEPAM 0.5 MG TABLET PO ONE (18:48)
--- NOTE | 2019-11-21 22:14 | CON ---
Reason For Service: Need for hemodialysis tunneled catheter. History Of Present Illness: This is a case of a 34-year-old patient, who comes to us with history of kidney disease, hypertension, and shortness of breath. The patient had a workup done, found to have a kidney failure, and a surgical consult was obtained for hemodialysis catheter placement in the for m of a tunneled catheter. Allergies: NONE. Medications: Include Cardura, Tamiflu, Norvasc. Medical Problems: Hypertension, asthma, renal disease. Past Surgical History: Include tubal ligation and . Social History: She does not smoke. She does not drink alcohol. Review of Systems: Ten points otherwise unremarkable. Physical Examination: General: Patient is awake and alert. No distress. HEENT: Pupils are equal and reactive, anicteric. Neck: Supple. The patient has what it looks like a previous clavicle fracture on the right side jaimee r the area of the shoulder. i will have to review the x-rays since she could not explain it that wel l. Breasts: Deferred. Genitalia: Deferred. Rectal: Deferred. Laboratory Data: Blood work shows WBC count of 9.5, hemoglobin of 9.5, INR is 1.10. Potassium is 3. 4. Assessment: This is a 34-year-old patient in need for hemodialysis tunneled catheter. The benefits, alternatives, and risks include but not limited to infection, bleeding, damage to adjacent structure s, anesthesia complications, hemothorax, pneumothorax, cardiac arrhythmias, pericardial tamponade, de ep vein thrombosis and endocarditis were explained to her. She understands this may not relieve the symptoms. She might need more than 1 surgical intervention. She understood and she is eating right now. We are going to put her n.p.o. after midnight and then proceed with the intervention. TSIVEN/ADAM Voice ID: [id number] Report ID: [id number]
[2019-11-22] MEDS: HYDRALAZINE HCL 20 MG/ML VIAL IV PRN ×3 (01:30→18:07)
[2019-11-22] MEDS ORDERED: METOPROLOL TARTRATE 5 MG/5 ML INJ IV ONE (02:26)
[2019-11-22] MEDS ORDERED: FENTANYL CITR 100 MCG/2 ML IV ONE ×3 (03:15→20:50)
[2019-11-22 06:05] LABS: Potassium 3.6 mmol/L (3.5-5.1)
[2019-11-22 06:06] LABS: Absolute Lymphocytes (CBC) 0.9 K/uL (0.7-4.9); Basophils % 1.1 % (0-1.3); Hematocrit 28.3 % (36.0-45.0); Lymphocytes % 9.1 % (15.3-44.8); MPV 7.5 fL (7.6-11.3); RBC Red Blood Cell Count 3.58 M/uL (3.86-4.86)
[2019-11-22] MEDS: carvediloL 12.5 MG TAB PO SCH ×2 (06:30→17:48)
[2019-11-22] MEDS: SODIUM BICARB 325 MG TAB PO SCH ×3 (08:00→16:28)
[2019-11-22] MEDS: SEVELAMER CARBONATE 800 MG TABLET PO SCH ×3 (08:00→16:29)
--- NOTE | 2019-11-22 08:05 | P.PN ---
Subjective Date of Service: 11/22/19 Chief Complaint: Shortness of breath Patient is complaining of abdominal pain. KUB done overnight was unremarkable. CT abdomen and pelvis showed wall thickening of the right colon. Physical Examination - Vital Signs Temperature: 96.9 F Blood Pressure: 200/100 Pulse: 78 Respirations: 18 Pulse Ox (%): 94 - Physical Exam General: Alert, In no apparent distress HEENT: Mucous membr. moist/pink Neck: Supple Respiratory: Normal air movement, Crackles/rales (Mild bibasilar crackles.) Cardiovascular: Regular rate/rhythm, Normal S1 S2, Edema (Bilateral lower extremities.) Gastrointestinal: Normal bowel sounds, Soft and benign, No tenderness Assessment And Plan - Current Problems (Diagnosis) (1) Pulmonary edema Current Visit: Yes Status: Acute (2) Chronic kidney disease, stage 5 Current Visit: Yes Status: Acute (3) Anemia in chronic kidney disease Current Visit: Yes Status: Acute (4) Hemorrhoid Current Visit: Yes Status: Acute - Plan Patient scheduled dialysis catheter placement today. Nephrology is considering initiating hemodialysis. Supplemental oxygen as needed Hydralazine IV p.r.n. for BP spikes Continue home antihypertensives. [place] and IV fentanyl p.r.n. for pain. Status post 1 unit PRBC transfusion. Hemoglobin is stable at 9.5. Will initiate antibiotics for colitis. [place] per Nephrology. Hemorrhoid management as an outpatient unless she bleed or prolapse.
[2019-11-22] MEDS: SPIRONOLACTONE 25 MG TABLET PO SCH (08:35)
[2019-11-22] MEDS: NIFEDIPINE XL 30 MG TABLET PO SCH ×2 (08:35→20:10)
[2019-11-22] MEDS: CALCITROL 0.25 MCG CAP PO SCH (09:00)
[2019-11-22] MEDS: DOCUSATE NA 100 MG CAP PO SCH ×2 (09:00→20:09)
[2019-11-22] MEDS: VITAMIN D 5,000 UNIT CAP PO SCH (09:00)
[2019-11-22] MEDS: METRONIDAZOLE 500mg IVPB 500 MG/100 ML BAG IV SCH ×2 (09:33→16:33)
[2019-11-22] MEDS: CIPROFLOXACIN 400mg IV 400 MG/200 ML BAG IV SCH (10:21)
[2019-11-22] MEDS ORDERED: NA CHLORIDE 0.9% 500 ML ONE (12:05)
[2019-11-22] MEDS ORDERED: LIDOCAINE 2% MPF 5 ML VIAL ONE (12:16)
[2019-11-22] MEDS ORDERED: MIDAZOLAM HCL 2 MG/2 ML INJ ONE (12:16)
[2019-11-22] MEDS ORDERED: propofoL 200 MG/20 ML VIAL IV ONE (12:16)
[2019-11-22] MEDS ORDERED: NA CHLORIDE 0.9% 100 ML IV ONE (12:18)
[2019-11-22] MEDS ORDERED: HEPARIN 5000 UNIT/ML 1 ML VIAL ONE (12:18)
[2019-11-22] MEDS ORDERED: FENTANYL CITR 100 MCG/2 ML ONE ×2 (12:18→13:10)
[2019-11-22] MEDS ORDERED: NS 0.9% VIAL 10 ML ONE (12:18)
[2019-11-22] MEDS ORDERED: LIDOCAINE 1% 20 ML MDV ONE (12:18)
[2019-11-22] MEDS ORDERED: dexAMETHasone 10 MG/ML VIAL ONE (12:51)
--- NOTE | 2019-11-22 13:26 | P.BOP ---
Preoperative diagnosis: renal failure Postoperative diagnosis: same Primary procedure: 1. Placement of tunneled hemosplit hemodialysis catheter Secondary procedure: 2. Fluoroscopy Other procedure(s): 3. right neck ultrasound Estimated blood loss: <10cc Specimen: none Findings: see dicta Anesthesia: General Implants: hemosplit cath Transferred to: Recovery Room Condition: Good
--- NOTE | 2019-11-22 13:31 | P.BOP ---
Preoperative diagnosis: renal failure Postoperative diagnosis: same Primary procedure: 1. Placement of tunneled hempsplit hemodialysis catheter Secondary procedure: 2. Fluoroscopy Other procedure(s): 3. right neck ultrasound Estimated blood loss: <10cc Specimen: none Implants: hemosplit cath Transferred to: Recovery Room Condition: Good
--- NOTE | 2019-11-22 13:40 | RAD REPORT ---
EXAM DESCRIPTION: RAD - Fluoroscopy <1 Hour - 11/22/2019 1:30 pm CLINICAL HISTORY: Venous catheter insertion. DIALYSIS CATHETER PLACEMENT COMPARISON: 1St Trimest Single 1St [place] dated 07/11/2017 FINDINGS: Fluoroscopy time: 0.4 minutes
[2019-11-22] MEDS: MORPHINE 4 MG/ML SYR ONE ×4 (14:00→14:24)
--- NOTE | 2019-11-22 14:19 | RAD REPORT ---
EXAM DESCRIPTION: RAD - Chest Single View - 11/22/2019 2:09 pm CLINICAL HISTORY: hemodiaysis cathter insertion Chest pain. COMPARISON: Abdomen 1 View (KUB) dated 11/21/2019; Chest Single View dated 11/19/2019; Abdomen 1 View ( KUB) dated 09/27/2019; Chest Pa And Lat (2 Views) dated 09/24/2019 FINDINGS: Portable technique limits examination quality. Right-sided venous catheter has tip in the SVC. No postprocedure pneumothorax. Heart is enlarged. Mil d pulmonary edema suspected. IMPRESSION: No postprocedure pneumothorax.
[2019-11-22] MEDS ORDERED: NA CHLORIDE 0.9% 1,000 ML IV PRN (15:46)
[2019-11-22] MEDS ORDERED: MANNITOL 25% 12.5 GM/50 ML VIAL IV PRN (15:46)
[2019-11-22] MEDS ORDERED: ALBUMIN HUMAN 25% 50 ML IV SCH (16:00)
--- NOTE | 2019-11-22 20:33 | P.PN ---
Date of Service: 11/22/19 Vital Signs Temp Pulse Resp BP Pulse Ox 98.0 F 89 18 174/99 H 95 11/22/19 16:35 11/22/19 20:10 11/22/19 16:35 11/22/19 20:10 11/22/19 16:35 Medications Hydrocodone Bitart/Acetaminophen ([place] 5/325) 1 tab PO Q4H PRN PRN Reason: Pain scale 5-7 (Moderate) Stop: 12/19/19 22:59 Last Admin: 11/21/19 00:20 Dose: 1 tab Documented by: Albuterol Sulfate (Proventil 0.083% Neb Soln) 2.5 mg NEB [id number] PRN PRN Reason: SHORTNESS OF BREATH Stop: 12/19/19 21:55 Calcitriol (Rocaltrol) 0.5 mcg PO DAILY [facility] Stop: 12/21/19 09:01 Last Admin: 11/22/19 09:00 Dose: Not Given Documented by: Carvedilol (Coreg) 25 mg PO BID 6AM 6PM [facility] Stop: 12/23/19 06:01 Cholecalciferol (Vitamin D 5,000 Iu Cap) 5,000 unit PO DAILY [facility] Stop: 12/21/19 09:01 Last Admin: 11/22/19 09:00 Dose: Not Given Documented by: Docusate Sodium (Colace Cap) 100 mg PO BID [facility] Stop: 12/20/19 21:01 Last Admin: 11/22/19 20:09 Dose: 100 mg Documented by: Heparin Sodium (Porcine) (Heparin 1,000 Units/Ml) 6,000 unit IV EVERY HD PRN PRN Reason: AFTER EACH Stop: 12/22/19 15:47 Hydralazine HCl (Apresoline) 20 mg IV Q4HP PRN PRN Reason: FOR SBP>160 OR DBP>100 MMHG Stop: 12/19/19 21:55 Last Admin: 11/22/19 18:07 Dose: 20 mg Documented by: Sodium Chloride (Sodium Chloride) 250 mls @ 0 mls/hr IV .Q0M [facility] Stop: 12/20/19 08:01 Ciprofloxacin/Dextrose (Cipro 400 Mg/200 Ml Ivpb (Premix)) 400 mg in 200 mls @ 200 mls/hr IV Q24H [facility]; Protocol Stop: 12/22/19 09:01 Last Admin: 11/22/19 10:21 Dose: 200 mls Documented by: Metronidazole/Sodium Chloride (Flagyl 500mg/100 Ml Iv Premix) 500 mg in 100 mls @ 200 mls/hr IV Q8HR [facility]; Protocol Stop: 12/22/19 09:01 Last Admin: 11/22/19 16:33 Dose: 100 mls Documented by: Sodium Chloride (Ns 1000 Ml Ivbag) 1,000 mls @ 0 mls/hr IV .Q0M PRN; Protocol PRN Reason: Priming and BP support at HD Stop: 11/22/19 23:59 Albumin Human (Albumin 25%) 50 mls @ 100 mls/hr IV EVERY HD [facility] Stop: 12/22/19 16:01 Mannitol (Mannitol 12.5 Gm/50 Ml Vial) 12.5 gm IV EVERY HD PRN PRN Reason: PRN FOR BP SUPPORT AT HD Stop: 12/22/19 15:47 Nifedipine (Procardia Xl) 30 mg PO BID [facility] Stop: 12/20/19 21:01 Last Admin: 11/22/19 20:10 Dose: 30 mg Documented by: Ondansetron HCl (Zofran) 4 mg IV Q6HP PRN PRN Reason: NAUSEA / VOMITING Stop: 12/19/19 21:55 Last Admin: 11/21/19 18:27 Dose: 4 mg Documented by: Ramipril (Altace) 5 mg PO BEDTIME [facility] Stop: 12/22/19 21:01 Sevelamer Carbonate (Renvela) 800 mg PO TIDWM [facility] Stop: 12/20/19 17:01 Last Admin: 11/22/19 16:29 Dose: 800 mg Documented by: Sodium Bicarbonate (Sodium Bicarb 325 Mg) 650 mg PO TIDWM [facility] Stop: 12/20/19 17:01 Last Admin: 11/22/19 16:28 Dose: 650 mg Documented by: Sodium Chloride (Normal Saline Flush) 10 ml IV BID [facility] Stop: 12/19/19 21:55 Last Admin: 11/22/19 20:10 Dose: 10 ml Documented by: Spironolactone (Aldactone) 50 mg PO DAILY [facility] Stop: 12/20/19 17:01 Last Admin: 11/22/19 08:35 Dose: 50 mg Documented by: Tramadol HCl (Ultram) 50 mg PO BID PRN PRN Reason: Pain scale 5-7 (Moderate) Stop: 12/22/19 21:01 Microbiology Results 11/20/19 04:18 Nasopharnyx Coronavirus COVID-19 PCR - Final Assessment/ Plan: Nephrology HD CVC placed this morning. CPS stable without CP or SOB. +Edema No acute events overnight. Vitals, medications, blood work and imaging reviewed in the chart. General: Oriented x3, Cooperative HEENT: Atraumatic Neck: Supple Respiratory: Diminished Cardiovascular: Regular rate/rhythm, Edema Gastrointestinal: Soft and benign, Non-distended Musculoskeletal: No clubbing, No contractures Integumentary: No rashes, No cyanosis Neurological: Normal speech Laboratory Data (last 24 hrs) 11/20/19 05:24: Troponin I 0.04 11/20/19 05:24: Sodium 135 L, Potassium 2.9 L*, BUN 102 H, Creatinine 12.40 H*, Glucose 117 H, Phosphorus 7.4 H 11/20/19 05:24: WBC 7.5, Hgb 7.8 L*, Hct 23.9 L, Plt Count 317 Imagings Data: EXAM DESCRIPTION: Huat Single View11/19/2019 3:38 pm CLINICAL HISTORY: Chest pain COMPARISON: none FINDINGS: Mild bilateral pulmonary opacities Heart is moderately enlarged IMPRESSION: Mild bilateral pulmonary opacities may indicate mild pulmonary edema Conclusions/Impression: A/ MARLY suspicious for ESRD likely due to HTN nephrosclerosis. Hyponatremia Hypokalemia Acidosis Hypocalcemia. HyperPO4. HTN with CKD. Edema. Anemia in chronic illness. Iron deficiency. P/ Continue current POC and Medications. Initiate HD today. Increase Coreg BID. Start Ramipril qhs. Give Retacrit. No NSAIDs. AM labs. Daily weight. Arrange placement at the [facility] [place].
--- NOTE | 2019-11-22 21:04 | RAD REPORT ---
EXAM DESCRIPTION: RAD - Abdomen Single View - 11/22/2019 8:50 pm CLINICAL HISTORY: abd pain Pain COMPARISON: Abdomen Pelvis Wo Contrast dated 11/21/2019 FINDINGS: The bowel gas pattern is non-obstructive. No evidence of free air or pneumatosis. No suspi cious calcifications. No significant bony findings. IMPRESSION: Negative examination.
[2019-11-22] MEDS: ramipriL 5 MG CAP PO SCH (21:22)
--- NOTE | 2019-11-22 23:48 | OP ---
Surgeon: Jacek Lazo MD Preoperative Diagnosis: Acute renal failure. Postoperative Diagnosis: Acute renal failure. Procedures: 1.Placement of a tunneled HemoSplit hemodialysis catheter. 2.Interpretation of fluoroscopy. 3.Right neck ultrasound. Estimated Blood Loss: Less than 10 mL. Anesthesia: General plus local. Implant: HemoSplit hemodialysis catheter. Indications: This is a case of a 34-year-old patient in need of hemodialysis, requested by the renal service. Patient fully explained the benefits, alternatives, and risks of placement of a HemoSplit hemodialysis catheter which include, but not limited to infection, bleeding, damage to adjacent struc tures, anesthesia complication, PE, DVT, pulmonary emboli, endocarditis, DVTs, DC, even . She a lso understands this may not relieve the symptoms. She might need more than one surgical interventio n. She understands the risks of pneumothorax and hemothorax. Description Of Procedure: Patient was brought to the operating room, placed in supine position. Ane sthesia was done without complication. Right chest and neck were prepped and draped in sterile fashi on. Patient placed in Trendelenburg position. A time-out was called. Ultrasound of the neck was do ne. We noticed the internal jugular vein to be patent and compressible. We used that guidance to pl sallie an 18-gauge needle in the right internal jugular vein on the first attempt. A guidewire was pass ed through, got into the superior vena cava using fluoroscopy. After that, we created a small incisi on in the right upper chest, tunnelled and HemoSplit hemodialysis catheter to meet that new incision in the right upper neck. We put dilators through a guidewire under fluoroscopy guidance. Introducer sheath was placed in same technique. Catheter was placed through the introducer sheath, after the g uidewire was removed and then the introducer sheath was peeled off. Excellent backflow and inflow. Fluoroscopy was done once again to check for placement, looks intact. Excellent backflow and inflow and the line was heparinized. Patient tolerated the procedure well. The line was secured in place w ith 3-0 nylon, subcutaneous tissue was closed with 3-0 chromic. Patient sent to Recovery in stable c ondition and chest x-ray was ordered stat. HM/MODL Voice ID: [id number] Report ID: [id number]
[2019-11-23] MEDS: METRONIDAZOLE 500mg IVPB 500 MG/100 ML BAG IV SCH ×3 (00:37→16:00)
[2019-11-23 04:16] LABS: HBsAG Nonreactive (Nonreactive)
[2019-11-23] MEDS: TRAMADOL HCL 50 MG TAB PO PRN (04:16)
[2019-11-23] MEDS: carvediloL 12.5 MG TAB PO SCH ×2 (05:43→16:01)
[2019-11-23] MEDS: HYDROCODONE/APAP 5/325 MG TAB PO PRN ×3 (05:44→14:09)
[2019-11-23] MEDS: SPIRONOLACTONE 25 MG TABLET PO SCH (07:17)
[2019-11-23] MEDS: SEVELAMER CARBONATE 800 MG TABLET PO SCH ×3 (07:17→16:01)
[2019-11-23] MEDS: CALCITROL 0.25 MCG CAP PO SCH (07:17)
[2019-11-23] MEDS: SODIUM BICARB 325 MG TAB PO SCH ×3 (07:17→16:01)
[2019-11-23] MEDS: VITAMIN D 5,000 UNIT CAP PO SCH (07:18)
[2019-11-23] MEDS: DOCUSATE NA 100 MG CAP PO SCH ×2 (07:18→21:31)
[2019-11-23] MEDS: CIPROFLOXACIN 400mg IV 400 MG/200 ML BAG IV SCH (07:19)
--- NOTE | 2019-11-23 07:47 | P.DS ---
Admission Date: 11/20/19 Discharge Date: 11/23/19 Disposition: ROUTINE DISCHARGE Discharge Condition: FAIR Reason for Admission: Shortness of breath - Problems (1) Pulmonary edema Current Visit: Yes Status: Acute (2) Chronic kidney disease, stage 5 Current Visit: Yes Status: Acute (3) Anemia in chronic kidney disease Current Visit: Yes Status: Acute (4) Hemorrhoid Current Visit: Yes Status: Acute Brief History of Present Illness: 34 old woman with a history of chronic kidney disease, history of hypertension presented emergency department with a complaint of shortness of breath of sudden onset, which occured today. Patient reports orthopnea and paroxysmal nocturnal dyspnea. She also reports chest pain worse with deep br eathing. He has chronic kidney disease stage 5 and she is followed by Dr. Monge. Her chest x-ray in the ED demonstrated pulmonary edema. Patient is placed under observation for further management. Hospital Course: Patient admitted to the medical floor, given a trial of IV Lasix therapy without response. She was seen by nephrology, dialysis catheter placed by general surgery. Patient underwent hemodialysis. She needs arrangement for hemodialysis seat in [place]. She was complaining of abdominal pain. CT abdomen and pelvis suggested thickening of the right colon wall which could indicate colitis. Patient is on treatment with Flagyl and ciprofloxacin. She was also complaining of constipation which was treated with Colace and Dulcolax suppository. Her blood pressure was elevated. Nephrology adjusted her BP meds to the current antihypertensives as in the discharge med rec. Patient's edema has improved. She is deemed clinically stable for discharge. Vital Signs/Physical Exam: Temp Pulse Resp BP Pulse Ox 98.3 F 68 20 157/105 H 100 11/23/19 04:00 11/23/19 07:17 11/23/19 04:00 11/23/19 07:17 11/23/19 04:00 General: Alert, In no apparent distress HEENT: Mucous membr. moist/pink Neck: Supple Respiratory: Clear to auscultation bilaterally, Normal air movement Cardiovascular: Regular rate/rhythm, Normal S1 S2, Edema ( 1+ bilateral lower extremity pitting edema) Gastrointestinal: Normal bowel sounds, Soft and benign, No tenderness Laboratory Data at Discharge: WBC 9.9 K/uL (4.3-10.9) 11/22/19 05:09 Hgb 9.5 g/dL (12.0-15.0) L 11/22/19 05:09 Hct 28.3 % (36.0-45.0) L 11/22/19 05:09 Plt Count 369 K/uL (152-406) 11/22/19 05:09 PT 13.0 SECONDS (9.5-12.5) H 11/21/19 07:32 INR 1.10 11/21/19 07:32 APTT 37.8 SECONDS (24.3-36.9) H 11/21/19 07:32 Sodium 134 mmol/L (136-145) L 11/23/19 05:37 Potassium 4.0 mmol/L (3.5-5.1) 11/23/19 05:37 BUN 62 mg/dL (7-18) H D 11/23/19 05:37 Creatinine 9.56 mg/dL (0.55-1.3) H* D 11/23/19 05:37 Glucose 152 mg/dL (74-106) H 11/23/19 05:37 Uric Acid 12.3 mg/dL (2.6-6.0) H D 11/21/19 06:18 Phosphorus 7.4 mg/dL (2.5-4.9) H 11/20/19 05:24 Magnesium 2.3 mg/dL (1.8-2.4) 11/19/19 15:10 Total Bilirubin 0.6 mg/dL (0.2-1.0) 11/21/19 06:18 AST 23 U/L (15-37) 11/21/19 06:18 ALT 30 U/L (12-78) 11/21/19 06:18 Alkaline Phosphatase 80 U/L (45-117) 11/21/19 06:18 Troponin I 0.04 ng/mL (0.0-0.045) 11/20/19 05:24 Home Medications: Calcitriol [Rocaltrol] 2 tab PO DAILY 11/19/19 Cholecalciferol (Vitamin D3) [Vitamin D 5,000 IU Cap*] 5,000 units PO DAILY 11/19/19 Doxazosin [Cardura*] 2 mg PO BID 11/19/19 Docusate [Colace Cap*] 100 mg PO BID #60 cap 11/23/19 Heparin [Heparin 1,000 units/mL *] 6,000 unit IV EVERY HD PRN vial 11/23/19 Hydrocodone 5/APAP 325 [[place] 5/325*] 1 tab PO Q4H PRN tab 11/23/19 Mannitol 25% [Mannitol*] 12.5 gm IV EVERY HD PRN vial 11/23/19 Na Bicarb Tab [Sodium Bicarb 325 MG Tab*] 650 mg PO TIDWM #180 tab 11/23/19 Nifedipine Xl [Procardia Xl*] 30 mg PO BID #60 tab 11/23/19 Sevelamer Carbonate [Renvela*] 800 mg PO TIDWM #90 tablet 11/23/19 Spironolactone [Aldactone*] 50 mg PO DAILY #30 tab 11/23/19 carvediloL [Coreg*] 25 mg PO BID 6AM 6PM #60 tab 11/23/19 ramipriL [Altace*] 5 mg PO BEDTIME #30 cap 11/23/19 New Medications: Spironolactone [Aldactone*] 50 mg PO DAILY #30 tab ramipriL [Altace*] 5 mg PO BEDTIME #30 cap Docusate [Colace Cap*] 100 mg PO BID #60 cap carvediloL [Coreg*] 25 mg PO BID 6AM 6PM #60 tab Nifedipine Xl [Procardia Xl*] 30 mg PO BID #60 tab Sevelamer Carbonate [Renvela*] 800 mg PO TIDWM #90 tablet Na Bicarb Tab [Sodium Bicarb 325 MG Tab*] 650 mg PO TIDWM #180 tab Diet: Renal Activity: Ad corby Time spent managing pt's care (in minutes): 40
[2019-11-23] MEDS: NIFEDIPINE XL 30 MG TABLET PO SCH ×2 (08:09→21:30)
[2019-11-23] MEDS: HYDRALAZINE HCL 20 MG/ML VIAL IV PRN (16:00)
[2019-11-23] MEDS: ramipriL 5 MG CAP PO SCH (21:31)
--- NOTE | 2019-11-23 22:32 | P.PN ---
Subjective Date of Service: 11/23/19 Chief Complaint: Shortness of breath Patient is complaining of pain all the time. She is not complaining of pain at the dialysis catheter site. She underwent hemodialysis yesterday Physical Examination - Vital Signs Temperature: 97.6 F Blood Pressure: 168/94 Pulse: 70 Respirations: 17 Pulse Ox (%): 100 - Physical Exam General: Alert, In no apparent distress HEENT: Mucous membr. moist/pink Neck: Supple Respiratory: Clear to auscultation bilaterally, Normal air movement Cardiovascular: Normal pulses, Regular rate/rhythm, Normal S1 S2, Edema (Bilateral lower extremities) Gastrointestinal: Normal bowel sounds, Soft and benign, No tenderness Integumentary: Other (Dialysis catheter right anterior chest) Assessment And Plan - Current Problems (Diagnosis) (1) Pulmonary edema Current Visit: Yes Status: Acute (2) Chronic kidney disease, stage 5 Current Visit: Yes Status: Acute (3) Anemia in chronic kidney disease Current Visit: Yes Status: Acute (4) Hemorrhoid Current Visit: Yes Status: Acute - Plan Hydralazine IV p.r.n. for BP spikes Continue home antihypertensives. [place] and IV fentanyl p.r.n. for pain. Continue antibiotics for colitis Epogen per Nephrology. Patient is waiting for arrangement for outpatient dialysis prior to discharge. Hemorrhoid management as an outpatient unless she bleed or prolapse.
[2019-11-24] MEDS: METRONIDAZOLE 500mg IVPB 500 MG/100 ML BAG IV SCH (00:49)
[2019-11-24] MEDS: HYDROCODONE/APAP 5/325 MG TAB PO PRN ×2 (05:34→11:53)
[2019-11-24] MEDS: carvediloL 12.5 MG TAB PO SCH ×2 (05:35→16:59)
--- NOTE | 2019-11-24 07:24 | P.PN ---
Subjective Date of Service: 11/24/19 Chief Complaint: Shortness of breath Patient has no complain this morning. Physical Examination - Vital Signs Temperature: 98.4 F Blood Pressure: 139/79 Pulse: 84 Respirations: 16 Pulse Ox (%): 99 - Physical Exam General: Alert, In no apparent distress Respiratory: Clear to auscultation bilaterally, Normal air movement Cardiovascular: Normal pulses, Regular rate/rhythm, Normal S1 S2, Edema (Trace bilateral lower extremity edema) Gastrointestinal: Normal bowel sounds, Soft and benign, No tenderness Assessment And Plan - Current Problems (Diagnosis) (1) Pulmonary edema Current Visit: Yes Status: Acute (2) Chronic kidney disease, stage 5 Current Visit: Yes Status: Acute (3) Anemia in chronic kidney disease Current Visit: Yes Status: Acute (4) Hemorrhoid Current Visit: Yes Status: Acute - Plan Patient is scheduled for another hemodialysis session today. Blood pressure readings have improved. Hydralazine IV p.r.n. for BP spikes Continue current antihypertensives. Mason p.r.n. for pain. Continue antibiotics for colitis Epogen per Nephrology. Patient is waiting for arrangement for outpatient dialysis prior to discharge. Hemorrhoid management as an outpatient unless she bleed or prolapse.
[2019-11-24] MEDS: DOCUSATE NA 100 MG CAP PO SCH ×2 (10:18→22:00)
[2019-11-24] MEDS: SPIRONOLACTONE 25 MG TABLET PO SCH (10:18)
[2019-11-24] MEDS: SEVELAMER CARBONATE 800 MG TABLET PO SCH ×3 (10:18→16:57)
[2019-11-24] MEDS: metroNIDAZOLE 500 MG TABLET PO SCH ×3 (10:19→22:00)
[2019-11-24] MEDS: VITAMIN D 5,000 UNIT CAP PO SCH (10:19)
[2019-11-24] MEDS: SODIUM BICARB 325 MG TAB PO SCH ×3 (10:19→16:57)
[2019-11-24] MEDS: CIPROFLOXACIN HCL 500 MG TAB PO SCH ×2 (10:19→22:00)
[2019-11-24] MEDS: CALCITROL 0.25 MCG CAP PO SCH (10:19)
[2019-11-24] MEDS: NIFEDIPINE XL 30 MG TABLET PO SCH ×2 (10:20→21:59)
[2019-11-24] MEDS: TRAMADOL HCL 50 MG TAB PO PRN ×2 (10:23→22:04)
[2019-11-24] MEDS: HYDRALAZINE HCL 20 MG/ML VIAL IV PRN (14:32)
[2019-11-24] MEDS: ramipriL 5 MG CAP PO SCH (22:00)
[2019-11-25] MEDS: HYDROCODONE/APAP 5/325 MG TAB PO PRN ×2 (00:59→16:42)
[2019-11-25] MEDS: carvediloL 12.5 MG TAB PO SCH ×2 (05:47→17:54)
--- NOTE | 2019-11-25 07:46 | P.PN ---
Subjective Date of Service: 11/25/19 Chief Complaint: Shortness of breath Patient has no complain. She denies abdominal pain. Anasarca has improved. She has undergone hemodialysis x 2. Physical Examination - Vital Signs Temperature: 98.3 F Blood Pressure: 168/75 Pulse: 80 Respirations: 16 Pulse Ox (%): 98 - Physical Exam General: Alert, In no apparent distress Neck: JVD not distended Respiratory: Clear to auscultation bilaterally, Normal air movement Cardiovascular: Edema (1+ bilateral lower extremity pitting edema) Gastrointestinal: Normal bowel sounds, Soft and benign, Non-distended, No tenderness Assessment And Plan - Current Problems (Diagnosis) (1) Pulmonary edema Current Visit: Yes Status: Acute (2) Chronic kidney disease, stage 5 Current Visit: Yes Status: Acute (3) Anemia in chronic kidney disease Current Visit: Yes Status: Acute (4) Hemorrhoid Current Visit: Yes Status: Acute - Plan Further hemodialysis per nephrology. Blood pressure readings have improved. Hydralazine IV p.r.n. for BP spikes Continue current antihypertensives. Continue antibiotics for colitis. Patient to complete 5 days of treatment. Epogen per Nephrology. Patient is waiting for arrangement for outpatient dialysis prior to discharge. Hemorrhoid management as an outpatient unless she bleed or prolapse.
[2019-11-25] MEDS: SEVELAMER CARBONATE 800 MG TABLET PO SCH ×3 (09:09→16:37)
[2019-11-25] MEDS: SODIUM BICARB 325 MG TAB PO SCH ×3 (09:09→16:37)
[2019-11-25] MEDS: CALCITROL 0.25 MCG CAP PO SCH (09:10)
[2019-11-25] MEDS: metroNIDAZOLE 500 MG TABLET PO SCH ×3 (09:10→21:04)
[2019-11-25] MEDS: VITAMIN D 5,000 UNIT CAP PO SCH (09:10)
[2019-11-25] MEDS: SPIRONOLACTONE 25 MG TABLET PO SCH (09:12)
[2019-11-25] MEDS: NIFEDIPINE XL 30 MG TABLET PO SCH (09:12)
[2019-11-25] MEDS: CIPROFLOXACIN HCL 500 MG TAB PO SCH ×2 (09:24→21:04)
[2019-11-25] MEDS: DOCUSATE NA 100 MG CAP PO SCH ×2 (09:24→21:04)
[2019-11-25] MEDS ORDERED: BISACODYL E.C. 5 MG TAB PO PRN (10:32)
[2019-11-25] MEDS: POLYETHYL GLY 3350 17 GM/DOSE PO SCH (11:15)
[2019-11-25] MEDS: HYDRALAZINE HCL 20 MG/ML VIAL IV PRN (12:46)
[2019-11-25] MEDS ORDERED: HYDRALAZINE HCL 20 MG/ML VIAL IV ONE (14:32)
[2019-11-25] MEDS ORDERED: cloNIDine HCL 0.1 MG TAB PO ONE (15:48)
[2019-11-25] MEDS: ramipriL 5 MG CAP PO SCH (21:04)
[2019-11-25] MEDS: NIFEDIPINE XL 60 MG TABLET PO SCH (21:07)
[2019-11-26] MEDS: HYDRALAZINE HCL 20 MG/ML VIAL IV PRN (01:22)
[2019-11-26 03:03] LABS: HBsAG Nonreactive (Nonreactive)
[2019-11-26 05:29] LABS: Absolute Lymphocytes (CBC) 1.2 K/uL (0.7-4.9); Basophils % 1.1 % (0-1.3); Hematocrit 32.7 % (36.0-45.0); Lymphocytes % 13.9 % (15.3-44.8); MPV 6.9 fL (7.6-11.3)
[2019-11-26 05:46] LABS: Potassium 4.6 mmol/L (3.5-5.1)
[2019-11-26] MEDS: carvediloL 12.5 MG TAB PO SCH ×2 (05:59→17:14)
--- NOTE | 2019-11-26 07:16 | P.PN ---
Subjective Date of Service: 11/26/19 Chief Complaint: Shortness of breath Patient has no complain. She denies abdominal pain. Anasarca has improved. She has undergone hemodialysis x 2. Patient is waiting for hemodialysis seat. Physical Examination - Vital Signs Temperature: 97.0 F Blood Pressure: 154/98 Pulse: 93 Respirations: 18 Pulse Ox (%): 99 - Physical Exam General: Alert, In no apparent distress HEENT: Mucous membr. moist/pink Neck: JVD not distended Respiratory: Clear to auscultation bilaterally, Normal air movement Cardiovascular: Normal pulses, Regular rate/rhythm, Normal S1 S2, Edema (1+ bilateral lower extremity pitting edema) Gastrointestinal: Normal bowel sounds, Non-distended, No tenderness Musculoskeletal: No erythema Integumentary: No rashes Assessment And Plan - Current Problems (Diagnosis) (1) Pulmonary edema Current Visit: Yes Status: Acute (2) Chronic kidney disease, stage 5 Current Visit: Yes Status: Acute (3) Anemia in chronic kidney disease Current Visit: Yes Status: Acute (4) Hemorrhoid Current Visit: Yes Status: Acute - Plan Further hemodialysis per nephrology. Blood pressure readings have improved. Hydralazine IV p.r.n. for BP spikes Continue current antihypertensives. Continue antibiotics for colitis. Patient to complete 5 days of treatment. Antibiotics day 3. Epogen per Nephrology. Patient is waiting for arrangement for outpatient dialysis prior to discharge. Hemorrhoid management as an outpatient unless she bleed or prolapse.
[2019-11-26] MEDS: DOCUSATE NA 100 MG CAP PO SCH ×2 (08:51→20:40)
[2019-11-26] MEDS: SPIRONOLACTONE 25 MG TABLET PO SCH (08:51)
[2019-11-26] MEDS: POLYETHYL GLY 3350 17 GM/DOSE PO SCH (08:51)
[2019-11-26] MEDS: CIPROFLOXACIN HCL 500 MG TAB PO SCH (08:51)
[2019-11-26] MEDS: SODIUM BICARB 325 MG TAB PO SCH ×3 (08:51→16:15)
[2019-11-26] MEDS: NIFEDIPINE XL 60 MG TABLET PO SCH ×2 (08:52→20:40)
[2019-11-26] MEDS: VITAMIN D 5,000 UNIT CAP PO SCH (08:52)
[2019-11-26] MEDS: SEVELAMER CARBONATE 800 MG TABLET PO SCH ×3 (08:52→16:15)
[2019-11-26] MEDS: metroNIDAZOLE 500 MG TABLET PO SCH ×3 (08:52→20:39)
[2019-11-26] MEDS: CALCITROL 0.25 MCG CAP PO SCH (08:52)
[2019-11-26] MEDS: HYDROCODONE/APAP 5/325 MG TAB PO PRN ×2 (15:01→20:40)
[2019-11-26] MEDS: TRAMADOL HCL 50 MG TAB PO PRN (16:15)
--- NOTE | 2019-11-26 20:26 | P.PN ---
Date of Service: 11/26/19 Vital Signs Temp Pulse Resp BP Pulse Ox 97.9 F 78 18 159/92 H 97 11/26/19 20:00 11/26/19 20:00 11/26/19 20:00 11/26/19 20:00 11/26/19 20:00 Medications Hydrocodone Bitart/Acetaminophen ([place] 5/325) 1 tab PO Q4H PRN PRN Reason: Pain scale 5-7 (Moderate) Stop: 12/19/19 22:59 Last Admin: 11/26/19 15:01 Dose: 1 tab Documented by: Albuterol Sulfate (Proventil 0.083% Neb Soln) 2.5 mg NEB [id number] PRN PRN Reason: SHORTNESS OF BREATH Stop: 12/19/19 21:55 Bisacodyl (Dulcolax) 10 mg PO 1X PRN PRN Reason: CONSTIPATION Stop: 12/25/19 10:33 Last Admin: 11/25/19 11:15 Dose: 10 mg Documented by: Calcitriol (Rocaltrol) 0.5 mcg PO DAILY [facility] Stop: 12/21/19 09:01 Last Admin: 11/26/19 08:52 Dose: 0.5 mcg Documented by: Carvedilol (Coreg) 25 mg PO BID 6AM 6PM [facility] Stop: 12/23/19 06:01 Last Admin: 11/26/19 17:14 Dose: 25 mg Documented by: Cholecalciferol (Vitamin D 5,000 Iu Cap) 5,000 unit PO DAILY [facility] Stop: 12/21/19 09:01 Last Admin: 11/26/19 08:52 Dose: 5,000 unit Documented by: Ciprofloxacin (Cipro) 500 mg PO DAILY [facility]; Protocol Stop: 12/24/19 09:01 Last Admin: 11/26/19 08:51 Dose: 500 mg Documented by: Docusate Sodium (Colace Cap) 100 mg PO BID [facility] Stop: 12/20/19 21:01 Last Admin: 11/26/19 08:51 Dose: 100 mg Documented by: Heparin Sodium (Porcine) (Heparin 1,000 Units/Ml) 6,000 unit IV EVERY HD PRN PRN Reason: AFTER EACH Stop: 12/22/19 15:47 Hydralazine HCl (Apresoline) 20 mg IV Q4HP PRN PRN Reason: FOR SBP>160 OR DBP>100 MMHG Stop: 12/19/19 21:55 Last Admin: 11/26/19 01:22 Dose: 20 mg Documented by: Sodium Chloride (Sodium Chloride) 250 mls @ 0 mls/hr IV .Q0M [facility] Stop: 12/20/19 08:01 Albumin Human (Albumin 25%) 50 mls @ 100 mls/hr IV EVERY HD [facility] Stop: 12/22/19 16:01 Mannitol (Mannitol 12.5 Gm/50 Ml Vial) 12.5 gm IV EVERY HD PRN PRN Reason: PRN FOR BP SUPPORT AT HD Stop: 12/22/19 15:47 Metronidazole (Flagyl) 500 mg PO TID [facility]; Protocol Stop: 12/24/19 09:01 Last Admin: 11/26/19 14:52 Dose: 500 mg Documented by: Nifedipine (Procardia Xl) 60 mg PO BID [facility] Stop: 12/25/19 21:01 Last Admin: 11/26/19 08:52 Dose: 60 mg Documented by: Ondansetron HCl (Zofran) 4 mg IV Q6HP PRN PRN Reason: NAUSEA / VOMITING Stop: 12/19/19 21:55 Last Admin: 11/21/19 18:27 Dose: 4 mg Documented by: Polyethylene Glycol (Glycolax) 17 gm PO DAILY [facility] Stop: 12/25/19 11:01 Last Admin: 11/26/19 08:51 Dose: 17 gm Documented by: Ramipril (Altace) 10 mg PO BEDTIME [facility] Stop: 12/26/19 21:01 Sevelamer Carbonate (Renvela) 800 mg PO TIDWM [facility] Stop: 12/20/19 17:01 Last Admin: 11/26/19 16:15 Dose: 800 mg Documented by: Sodium Chloride (Normal Saline Flush) 10 ml IV BID [facility] Stop: 12/19/19 21:55 Last Admin: 11/26/19 08:52 Dose: 10 ml Documented by: Spironolactone (Aldactone) 50 mg PO DAILY [facility] Stop: 12/20/19 17:01 Last Admin: 11/26/19 08:51 Dose: 50 mg Documented by: Tramadol HCl (Ultram) 50 mg PO BID PRN PRN Reason: Pain scale 5-7 (Moderate) Stop: 12/22/19 21:01 Last Admin: 11/26/19 16:15 Dose: 50 mg Documented by: Microbiology Results 11/20/19 04:18 Nasopharnyx Coronavirus COVID-19 PCR - Final Assessment/ Plan: Nephrology Feeling better. CPS improved without CP or SOB. Edema improved. No acute events overnight. Vitals, medications, blood work and imaging reviewed in the chart. General: Oriented x3, Cooperative HEENT: Atraumatic Neck: Supple Respiratory: Diminished Cardiovascular: Regular rate/rhythm, Edema Gastrointestinal: Soft and benign, Non-distended Musculoskeletal: No clubbing, No contractures Integumentary: No rashes, No cyanosis Neurological: Normal speech Laboratory Data (last 24 hrs) 11/20/19 05:24: Troponin I 0.04 11/20/19 05:24: Sodium 135 L, Potassium 2.9 L*, BUN 102 H, Creatinine 12.40 H*, Glucose 117 H, Phosphorus 7.4 H 11/20/19 05:24: WBC 7.5, Hgb 7.8 L*, Hct 23.9 L, Plt Count 317 Imagings Data: EXAM DESCRIPTION: Joseph Single View11/19/2019 3:38 pm CLINICAL HISTORY: Chest pain COMPARISON: none FINDINGS: Mild bilateral pulmonary opacities Heart is moderately enlarged IMPRESSION: Mild bilateral pulmonary opacities may indicate mild pulmonary edema Conclusions/Impression: A/ MARLY suspicious for ESRD likely due to HTN nephrosclerosis. Hyponatremia Hypokalemia Acidosis Hypocalcemia. HyperPO4. HTN with CKD. Edema. Anemia in chronic illness. Iron deficiency. P/ Continue current POC and Medications. Next HD tomorrow. Increase Ramipril 10 qhs. Give Retacrit PRN. No NSAIDs. AM labs PRN. Daily weight. May discharge once placement at the [facility] [place] is confirmed.
[2019-11-26] MEDS ORDERED: ramipriL 5 MG CAP PO SCH (21:00)
[2019-11-26] MEDS ORDERED: EPOETIN ALFA 10,000 UNIT/ML VIAL SQ ONE (22:15)
[2019-11-27] MEDS: carvediloL 12.5 MG TAB PO SCH ×2 (03:55→17:15)
[2019-11-27 04:27] VITALS: TEMP 98
[2019-11-27 05:40] LABS: Albumin 2.6 g/dL (3.4-5.0); Bilirubin Total 0.4 mg/dL (0.2-1.0); Potassium 5.4 mmol/L (3.5-5.1)
[2019-11-27] MEDS: CALCITROL 0.25 MCG CAP PO SCH (08:26)
[2019-11-27] MEDS: POLYETHYL GLY 3350 17 GM/DOSE PO SCH (08:26)
[2019-11-27] MEDS: VITAMIN D 5,000 UNIT CAP PO SCH (08:26)
[2019-11-27] MEDS: DOCUSATE NA 100 MG CAP PO SCH (08:26)
[2019-11-27] MEDS: NIFEDIPINE XL 60 MG TABLET PO SCH (08:26)
[2019-11-27] MEDS: SPIRONOLACTONE 25 MG TABLET PO SCH (08:27)
[2019-11-27] MEDS: metroNIDAZOLE 500 MG TABLET PO SCH ×2 (08:27→14:00)
[2019-11-27] MEDS: SEVELAMER CARBONATE 800 MG TABLET PO SCH ×3 (08:27→17:15)
[2019-11-27] MEDS: CIPROFLOXACIN HCL 500 MG TAB PO SCH (08:28)
[2019-11-27] MEDS: HYDRALAZINE HCL 20 MG/ML VIAL IV PRN (08:28)
[2019-11-27] MEDS ORDERED: NIFEDIPINE XL 90 MG TABLET PO SCH (09:00)
[2019-11-27] MEDS ORDERED: EPOETIN ALFA-EPBX 10,000 UNIT/ML VIAL SQ ONE (09:00)
[2019-11-27] MEDS ORDERED: NIFEDIPINE XL 30 MG TABLET PO ONE (09:45)
[2019-11-27] MEDS: HYDROCODONE/APAP 5/325 MG TAB PO PRN ×2 (10:00→14:02)
[2019-11-27] MEDS: ONDANSETRON 4 MG/2 ML VIAL IV PRN (10:06)
[2019-11-27] MEDS: FAMOTIDINE 20 MG/2 ML VIAL IV ONE ×2 (11:12→11:13)
--- NOTE | 2019-11-27 11:33 | P.DS ---
Admission Date: 11/20/19 Discharge Date: 11/27/19 Primary Care Provider: none; Nephrology-Dr. Monge Disposition: ROUTINE DISCHARGE Discharge Condition: FAIR Reason for Admission: Shortness of breath Consultations: Nephrology-Dr. Monge Surgery-Dr. Laoz Procedures: CT Ab: COMPARISON: No comparisons TECHNIQUE: Axial [address] imaging of the abdomen and pelvis was performed without IV contrast. No IV contrast was given because of allergy, abnormal renal function, patient refusal or physician request. No oral contrast administered. All CT scans are performed using dose optimization technique as appropriate and may include automated exposure control or mA/KV adjustment according to patient size. FINDINGS: Cardiomegaly is present. Very minimal pericardial effusion seen. Patient has small bilateral pleural effusions. There is atelectasis in the posterior gutter on the right. No focal liver lesions seen on noncontrast imaging. No splenomegaly or focal splenic finding. No focal pancreatic abnormality seen. Gallbladder and biliary tree are also without suspicious finding. Gallstones can be occult on CT imaging. No hydronephrosis or suspicious renal mass. Urinary bladder is contracted limiting assessment. No gross evidence for bladder wall thickening, bladder wall mass or bladder calcification. Isodense renal masses and pyelonephritis cannot be excluded in the absence of IV contrast. No uterine abnormality. Ovaries cannot be distinguished from adjacent on opacified bowel. No suspicion for an ovarian abnormality or mass. Stomach is decompressed. No gastric wall thickening or mass identifiable. No dilated small bowel loops. Lund of the cecum and ascending colon to the hepatic flexure are mildly thickened. This is probably a metabolic process rather than colitis. Appendix is not abnormal. No free air or pneumatosis. Small amount of ascites is present adjacent to the liver, spleen and in the dependent portion of the pelvis. Anasarca pattern is seen in the subcutaneous fatty tissues of the lower chest and abdomen. No hernia, mass or bulky lymphadenopathy. No omental thickening. No suspicious bony findings. IMPRESSION: No bowel obstruction, free air or surgically emergent finding. Wall thickening throughout the right-side of the colon probably metabolic from electrolyte imbalance or other systemic process. Cardiomegaly, small pleural effusions and anasarca pattern in the subcutaneous tissues. Patient has small amount of ascites. Surgery: Date 11/22/2019 Dialysis catheter placement Medical Problem List: Shortness of breath secondary to pulmonary edema/small pleural effusions/anasarca with worsening chronic kidney disease stage 5 now end-stage renal disease on hemodialysis Hypertension Anemia of chronic renal disease GERD Colitis Brief History of Present Illness: 34 yo female with history of chronic kidney disease stage 5 and hypertension came in with shortness of breath. Chest x-ray showed pulmonary edema with pleural effusions. Patient was admitted for further evaluation. Nephrology consulted to further address. Hospital Course: Patient presented with shortness of breath secondary to pulmonary edema/small pleural effusions/anasarca with worsening chronic kidney disease stage 5. Patient was admitted for further treatment. Patient was given IV Lasix without significant response. Nephrology recommended to initiate hemodialysis. This would be for chronic stabilization. Surgery was consulted to place dialysis catheter. Patient tolerated procedure well. Her condition improved with dialysis. Arrangements for hemodialysis as an outpatient was addressed. Patient now with end-stage renal disease on hemodialysis. At discharge she will continue with hemodialysis tomorrow at 10:00 a.m.. This was discussed in detail with nephrology who agrees with plan of care. Patient will continue with nephrology as an outpatient to further address. Recommend no further use of nonsteroidal anti-inflammatories. Future medications wound to be renally dose. Recommend to recheck lab-BMP in 1 week. Recommend to recheck chest x-ray in 2-4 weeks to monitor resolution. Patient will continue with Renvela 800 mg 3 times a day, Calcitrol 0.5 mcg daily and vitamin-D. Due to her pulmonary edema, patient will continue with 1500 cc per day fluid restriction. Education provided. At discharge patient will continue with Al dactone 50 mg daily. Recommend to monitor her weight daily. If her weight increases by more than 5 lb she is to contact nephrology for further recommendation. Patient with hypertension. Medications have been adjusted during the course of her stay. At discharge patient will continue with carvedilol 25 mg 1 pill twice daily, Cardura 2 mg 1 pill twice daily, Procardia XL 90 mg 1 pill twice daily, and ramipril 10 mg at bedtime. Recommend to maintain blood pressure less 150/80. Further adjustment will be done by nephrology. Patient with anemia chronic disease. This has remained stable. Recommend to recheck CBC in 2-4 weeks to monitor stability. Patient reported constipation. Patient may continue with docusate as an outpatient. Patient was treated for possible colitis. Patient has finished the course of her treatment. Recommend follow up with GI as an outpatient to further address and monitor. Patient may have underlying GERD. At discharge she will continue with Pepcid 20 mg daily. Recommend follow up with GI as an outpatient to further address. Patient may require EGD in the future to further evaluate. Vital Signs/Physical Exam: Temp Pulse Resp BP Pulse Ox 98.0 F 78 20 178/111 H 95 11/27/19 04:00 11/27/19 10:01 11/27/19 08:00 11/27/19 10:01 11/27/19 08:00 General: Alert, In no apparent distress, Oriented x3, Cooperative HEENT: Atraumatic Neck: Supple Respiratory: Clear to auscultation bilaterally, Normal air movement Cardiovascular: Normal pulses, Regular rate/rhythm Gastrointestinal: Normal bowel sounds, Soft and benign, Non-distended, No masses, No rebound, No guarding Musculoskeletal: No erythema, No tenderness, No warmth Integumentary: No tenderness/swelling, No erythema, No warmth, No cyanosis Neurological: Normal speech, Normal strength at 5/5 x4 extr, Normal tone, Normal affect Laboratory Data at Discharge: WBC 8.5 K/uL (4.3-10.9) D 11/26/19 04:58 Hgb 10.6 g/dL (12.0-15.0) L 11/26/19 04:58 Hct 32.7 % (36.0-45.0) L D 11/26/19 04:58 Plt Count 430 K/uL (152-406) H 11/26/19 04:58 PT 13.0 SECONDS (9.5-12.5) H 11/21/19 07:32 INR 1.10 11/21/19 07:32 APTT 37.8 SECONDS (24.3-36.9) H 11/21/19 07:32 Sodium 137 mmol/L (136-145) 11/27/19 05:06 Potassium 5.4 mmol/L (3.5-5.1) H 11/27/19 05:06 BUN 30 mg/dL (7-18) H 11/27/19 05:06 Creatinine 7.94 mg/dL (0.55-1.3) H* D 11/27/19 05:06 Glucose 102 mg/dL (74-106) 11/27/19 05:06 Uric Acid 12.3 mg/dL (2.6-6.0) H D 11/21/19 06:18 Phosphorus 7.4 mg/dL (2.5-4.9) H 11/20/19 05:24 Magnesium 2.3 mg/dL (1.8-2.4) 11/19/19 15:10 Total Bilirubin 0.4 mg/dL (0.2-1.0) 11/27/19 05:06 AST 30 U/L (15-37) 11/27/19 05:06 ALT 21 U/L (12-78) 11/27/19 05:06 Alkaline Phosphatase 75 U/L (45-117) 11/27/19 05:06 Troponin I 0.04 ng/mL (0.0-0.045) 11/20/19 05:24 Home Medications: Calcitriol [Rocaltrol] 2 tab PO DAILY 11/19/19 Cholecalciferol (Vitamin D3) [Vitamin D 5,000 IU Cap*] 5,000 units PO DAILY 11/19/19 Doxazosin [Cardura*] 2 mg PO BID 11/19/19 Hydrocodone 5/APAP 325 [[place] 5/325*] 1 tab PO Q4H PRN tab 11/23/19 Sevelamer Carbonate [Renvela*] 800 mg PO TIDWM #90 tablet 11/23/19 Carvedilol [Coreg] 25 mg PO BID #60 tablet 11/27/19 Nifedipine Xl [Procardia XL] 90 mg PO BID #180 tab 11/27/19 Ramipril [Altace] 10 mg PO DAILY #30 capsule 11/27/19 Spironolactone [Aldactone] 50 mg PO DAILY #30 tablet 11/27/19 New Medications: Spironolactone [Aldactone] 50 mg PO DAILY #30 tablet Ramipril [Altace] 10 mg PO DAILY #30 capsule Carvedilol [Coreg] 25 mg PO BID #60 tablet Nifedipine Xl [Procardia XL] 90 mg PO BID #180 tab Sevelamer Carbonate [Renvela*] 800 mg PO TIDWM #90 tablet Patient Discharge Instructions: Recommend to establish care with a PCP in the area to follow up this hospitalization. Patient presented with shortness of breath secondary to pulmonary edema/small pleural effusions/anasarca with worsening chronic kidney disease stage 5. Patient was admitted for further treatment. Patient was given IV Lasix without significant response. Nephrology recommended to initiate hemodialysis. This would be for chronic stabilization. Surgery was consulted to place dialysis catheter. Patient tolerated procedure well. Her condition improved with dialysis. Arrangements for hemodialysis as an outpatient was addressed. Patient now with end-stage renal disease on hemodialysis. At discharge she will continue with hemodialysis tomorrow at 10:00 a.m.. This was discussed in detail with nephrology who agrees with plan o f care. Patient will continue with nephrology as an outpatient to further address. Recommend no further use of nonsteroidal anti-inflammatories. Future medications wound to be renally dose. Recommend to recheck lab-BMP in 1 week. Recommend to recheck chest x-ray in 2-4 weeks to monitor resolution. Patient will continue with Renvela 800 mg 3 times a day, Calcitrol 0.5 mcg daily and vitamin-D. Due to her pulmonary edema, patient will continue with 1500 cc per day fluid restriction. Education provided. At discharge patient will continue with Aldactone 50 mg daily. Recommend to monitor her weight daily. If her weight increases by more than 5 lb she is to contact nephrology for further recommendation. Patient with hypertension. Medications have been adjusted during the course of her stay. At discharge patient will continue with carvedilol 25 mg 1 pill twice daily, Cardura 2 mg 1 pill twice daily, Procardia XL 90 mg 1 pill twice daily, and ramipril 10 mg at bedtime. Recommend to maintain blood pressure less 150/80. Further adjustment will be done by nephrology. Patient with anemia chronic disease. This has remained stable. Recommend to recheck CBC in 2-4 weeks to monitor stability. Patient reported constipation. Patient may continue with docusate as an outpatient. Patient was treated for possible colitis. Patient has finished the course of her treatment. Recommend follow up with GI as an outpatient to further address and monitor. Patient may have underlying GERD. At discharge she will continue with Pepcid 20 mg daily. Recommend follow up with GI as an outpatient to further address. Patient may require EGD in the future to further evaluate. Diet: Renal Activity: Ad corby Time spent managing pt's care (in minutes): 55
[2019-11-27 17:19] VITALS: BP 165/86
[2019-11-27 17:45] VITALS: O2SAT 94
[2019-11-27] MEDS ORDERED: DOXAZOSIN 2 MG TAB PO SCH (21:00)
--- NOTE | 2019-11-27 22:12 | P.PN ---
Date of Service: 11/27/19 Vital Signs Temp Pulse Resp BP Pulse Ox 98.0 F 72 20 165/86 H 95 11/27/19 04:00 11/27/19 17:15 11/27/19 08:00 11/27/19 17:15 11/27/19 08:00 Microbiology Results 11/20/19 04:18 Nasopharnyx Coronavirus COVID-19 PCR - Final Assessment/ Plan: Nephrology Feeling better. CPS improved without CP or SOB. Edema improved. No acute events overnight. Vitals, medications, blood work and imaging reviewed in the chart. General: Oriented x3, Cooperative HEENT: Atraumatic Neck: Supple Respiratory: Diminished Cardiovascular: Regular rate/rhythm, Edema Gastrointestinal: Soft and benign, Non-distended Musculoskeletal: No clubbing, No contractures Integumentary: No rashes, No cyanosis Neurological: Normal speech Laboratory Data (last 24 hrs) 11/20/19 05:24: Troponin I 0.04 11/20/19 05:24: Sodium 135 L, Potassium 2.9 L*, BUN 102 H, Creatinine 12.40 H*, Glucose 117 H, Phosphorus 7.4 H 11/20/19 05:24: WBC 7.5, Hgb 7.8 L*, Hct 23.9 L, Plt Count 317 Imagings Data: EXAM DESCRIPTION: Joseph Single View11/19/2019 3:38 pm CLINICAL HISTORY: Chest pain COMPARISON: none FINDINGS: Mild bilateral pulmonary opacities Heart is moderately enlarged IMPRESSION: Mild bilateral pulmonary opacities may indicate mild pulmonary edema Conclusions/Impression: A/ ESRD likely due to HTN nephrosclerosis. Hyponatremia Hypokalemia/ Hyperkalemia Acidosis Hypocalcemia. HyperPO4. HTN with CKD. Edema. Anemia in chronic illness. Iron deficiency. P/ Continue current POC and Medications. HD today. Give Retacrit PRN. No NSAIDs. AM labs PRN. Daily weight. May discharge once placement at the [facility] is confirmed.
[2019-11-28] MEDS ORDERED: NEPRO SHAKE 237 ML CAN PO SCH (09:00)
== END 2019-11-27 17:30 | disposition home or self-care (01) | DRG 186 ==
LOC: ER 14:33 → 2ND 21:19 → OBSVTOIN 11-20 08:09
PROVIDERS: ADMIT Internal Medicine; ATTEND Family Medicine
PROC: 02HV33Z Insertion of Infusion Device into Superior Vena Cava, Percutaneous Approach (ICD-10-PCS; 2019-11-22)
PROC: 0JH60XZ Insertion of Tunneled Vascular Access Device into Chest Subcutaneous Tissue and Fascia, Open Approach (ICD-10-PCS; principal; 2019-11-22 12:15)
PROC: 5A1D70Z Performance of Urinary Filtration, Intermittent, Less than 6 Hours Per Day (ICD-10-PCS; 2019-11-24)
PROC: 30233N1 Transfusion of Nonautologous Red Blood Cells into Peripheral Vein, Percutaneous Approach (ICD-10-PCS; 2019-11-24)
DX: J90 Pleural effusion, not elsewhere classified (principal); N18.6 End stage renal disease; I12.0 Hypertensive chronic kidney disease with stage 5 chronic kidney disease or end stage renal disease; J81.1 Chronic pulmonary edema; N17.9 Acute kidney failure, unspecified; E87.1 Hypo-osmolality and hyponatremia; E87.2 Acidosis; E87.70 Fluid overload, unspecified; Z20.828 Contact with and (suspected) exposure to other viral communicable diseases; R06.02 Shortness of breath; Z79.899 Other long term (current) drug therapy; J45.909 Unspecified asthma, uncomplicated; Z98.51 Tubal ligation status; D63.1 Anemia in chronic kidney disease; F17.200 Nicotine dependence, unspecified, uncomplicated; E87.6 Hypokalemia; E83.51 Hypocalcemia; E83.39 Other disorders of phosphorus metabolism; K64.9 Unspecified hemorrhoids; K52.9 Noninfective gastroenteritis and colitis, unspecified; K21.9 Gastro-esophageal reflux disease without esophagitis; K59.00 Constipation, unspecified
CPT/HCPCS: 36415; 36430; 71045; 74018; 74150; 74176; 76000; 80048; 80053; 80074; 80076; 81003; 81015; 83735; 83880; 84100; 84484; 84550; 84703; 85014; 85018; 85025; 85610; 85730; 86317; 86704; 86850; 86900; 86901; 87340; 90935; 93005; 94640; 96374; 96375; 99285; C1752; G0378; J0360; J0744; J1100; J1200; J1644; J1940; J2250; J2310; J2405; J2704; J2916; J3010; J7030; J7040; P9016; Q5105; Q5106; U0002

== ENCOUNTER 2020-04-22 13:54 | Emergency (ER) | payer OTHER ==
--- OUTSIDE RECORDS SUMMARY | 2020-04-22 13:57 | XMS REPORT | Continuity of Care Document ---
:1985 Author Organization [facility] t Address [address] [place] [address] Care Team Providers Name Role Phone Unavailable Unavailable Unavailable Payers Payer Name Policy Type Policy Number Effective Date Expiration Date S ource Problems This patient has no known problems. Allergies, Adverse Reactions, Alerts Allergy Allergy Status Severity Reaction(s) Onset Inactive Treating Comm ents Source Name Type Date Date Clinician No Known DA Active U [facility] 04 Clear Allergie 00:00: Alatorre s 00 [facility] hydrocod DA Active U 2013-06 [facility] one 0-03 Clear 00:00: Alatorre 00 [facility] Medications This patient has no known medications. Procedures This patient has no known procedures. Results Test Description Test Time Test Comments Results Result Comments Source PROTHROMBIN TIME 2020-03-25 11:57:00 Test Item Value Reference Range Interpretation Comme nts PROTHROMBIN TIME PATIENT 11.4 SECONDS 9.3-12.9 N (test code = PTP) INTERNATIONAL NORMAL RATIO 1.0 0.8-1.2 N TARGET INR BY (test code = INR) INDICATION Indication INR1. Prophylax is of venous thrombosis 2.0 - 3.0 (orthopedic s urgery), Prophylaxis of venous thrombosis (oth er than high-risk surgery), Ron atment of Deep Vein Thrombos is/Pulmonary Embolism, Preve ntion of systemic emboli sm - Tissue heart valves, Acute Myocardial Infarction (to prevent systemic emboli sm), Valvular heart disease, Atrial Fibrillation, B ileaflet mechanical va lve in aortic position.2. Mec hanical prosthetic valv es (high risk), 2.5 - 3.5 Pr esence of Lupus Anticoagulant o r Antiphospholipi d Antibodies, Prevention of systemic embolism - Acut e Myocardial Infarction (t o prevent recurrent infar ct). BASIC METABOLIC [id number] 11:39:00 Test Item Value Reference Range Interpretation Comments SODIUM (test code = NA) 132 mEq/L 134-147 L POTASSIUM (test code = 3.8 mEq/L 3.4-5.0 N K) CHLORIDE (test code = 97 mEq/L 100-108 L CL) CARBON DIOXIDE (test 28 mEq/L 21-33 N code = CO2) ANION GAP (test code = 11 0-20 N GAP) GLUCOSE (test code = 90 mg/dL 70-110 N GLU) BLOOD UREA NITROGEN 25 mg/dL 7-18 H (test code = BUN) GLOMERULAR FILTRATION 6.3 105-110 L Units of measure = RATE (test code = GFR) ml/mi n/1.73 m2 CREATININE (test code = 8.8 mg/dL 0.6-1.3 H CREAT) CALCIUM (test code = 9.9 mg/dL 8.0-10.5 N CA) HCG SERUM [id number] 11:23:00 Test Item Value Reference Range Interpretation Comments HCG SERUM QUAL (test code = SERUM NEGATIVE NEGATIVE HCGQL) CBC W/AUTO [id number] 11:17:00 Test Item Value Reference Range Interpretation Comments WHITE BLOOD CELL (test code = 4.40 x10 3/uL 4.5-11.0 L WBC) RED BLOOD CELL (test code = 4.89 x10 6/uL 3.54-5.02 N RBC) HEMOGLOBIN (test code = HGB) 13.9 g/dL 11.0-15.0 N HEMATOCRIT (test code = HCT) 45.3 % 33.0-45.0 H MEAN CELL VOLUME (test code = 92.6 fL 81.0-99.0 N MCV) MEAN CELL HGB (test code = MCH) 28.4 pg 27.0-33.0 N MEAN CELL HGB CONCETRATION 30.7 g/dL 33.0-37.0 L (test code = MCHC) RED CELL DISTRIBUTION WIDTH CV 13.2 % 11.5-14.5 N (test code = RDW) RED CELL DISTRIBUTION WIDTH SD 44.5 fL 37.0-54.0 N (test code = RDW-SD) PLATELET COUNT (test code = 279 x10 3/uL 150-400 N PLT) MEAN PLATELET VOLUME (test code 10.3 fL 7.0-9.0 H = MPV) NEUTROPHIL % (test code = NT%) 59.4 % 56.0-77.0 N IMMATURE GRANULOCYTE % (test 0.2 % 0.0-2.0 N code = IG%) LYMPHOCYTE % (test code = LY%) 29.3 % 14.0-32.0 N MONOCYTE % (test code = MO%) 7.5 % 4.8-9.0 N EOSINOPHIL % (test code = EO%) 2.5 % 0.3-3.7 N BASOPHIL % (test code = BA%) 1.1 % 0.0-2.0 N NUCLEATED RBC % (test code = 0.0 % 0-0 N NRBC%) NEUTROPHIL # (test code = NT#) 2.61 x10 3/uL 2.0-7.6 N IMMATURE GRANULOCYTE # (test 0.01 x10 3/uL 0.00-0.03 N code = IG#) LYMPHOCYTE # (test code = LY#) 1.29 x10 3/uL 1.0-3.8 N MONOCYTE # (test code = MO#) 0.33 x10 3/uL 0.1-0.8 N EOSINOPHIL # (test code = EO#) 0.11 x10 3/uL 0.0-0.2 N BASOPHIL # (test code = BA#) 0.05 x10 3/uL 0.0-0.2 N NUCLEATED RBC # (test code = 0.00 x10 3/uL 0.0-0.1 N NRBC#) MANUAL DIFF REQUIRED (test code NO = MDIFF) CBC W/AUTO [id number] 11:15:00 Test Item Value Reference Range Interpretation Comments WHITE BLOOD CELL (test code = x10 3/uL 4.5-11.0 WBC) RED BLOOD CELL (test code = RBC) x10 6/uL 3.54-5.02 HEMOGLOBIN (test code = HGB) 13.9 g/dL 11.0-15.0 N HEMATOCRIT (test code = HCT) % 33.0-45.0 MEAN CELL VOLUME (test code = fL 81.0-99.0 MCV) MEAN CELL HGB (test code = MCH) pg 27.0-33.0 MEAN CELL HGB CONCETRATION (test g/dL 33.0-37.0 code = MCHC) RED CELL DISTRIBUTION WIDTH CV % 11.5-14.5 (test code = RDW) PLATELET COUNT (test code = PLT) 279 x10 3/uL 150-400 N NEUTROPHIL % (test code = NT%) % 56.0-77.0 LYMPHOCYTE % (test code = LY%) % 14.0-32.0 NEUTROPHIL # (test code = NT#) x10 3/uL 2.0-7.6 LYMPHOCYTE # (test code = LY#) x10 3/uL 1.0-3.8 MANUAL DIFF REQUIRED (test code = MDIFF) - XR CHEST 1 [id number] 11:04:00 FAX: Abimael Gallardo MD [phone] [place]: St: REG Name: MARIANA RODRIGES [facility] : 1985 Age/S: 34/F [address] [place] [address] Unit#: [id number] Loc: [place] [address] Phys: Abimael Isaac MD Acct: [id number] Dis Date: Status: REG [facility] PHONE #: [phone] Exam Date: 03/25/2020 1103 FAX #: [phone] Reason: PRE OP EXAMS: CPT CODE: [id number] XR CHEST 1 V [id number] PROCEDURE: CHEST SINGLE VIEW INDICATION: PRE OP;ESRD COMPARISON: March 2014 FINDINGS: TUBES AND LINES: Tunneledright hemodialysis catheter tip at the level of mid superior vena cava. CHEST: The lungs are clear. The pleural, cardiomediastinal silhouette, and bony thorax are normal. IMPRESSION: No acute findings. SL: [id number] Reported and signed by: Josesito Tolentino M.D. CC: Abimael Isaac MD Technologist: RT Faby(R) Trnscrd Date/Time/By: 03/25/2020 (1938) : By: GalloKWL Orig Print D/T: S: 03/25/2020 (5201) PAGE 1 Signed ReportCOVID 19 Asymptomatic IH [id number] 10:59:00 Test Item Value Reference Range Interpretation Comments COVID 19 Asymptomatic Negative Negative A nega tive result is IH AG (test code = presumpti ve and should COVNONPUIAG) be confirmedwit h an FDA authorized mole cular assay, if neces kae forpatient aman gement.A positive result does not rule out co-inf ections withother patho gens.This test detects can th viable (live) and non-viable,SARS -CoV, and SARS-CoV-2. Janet t performance dep ends on theamount of vi power (antigen) in th e sample.This janet t has not been FDA cleare d or approved; the t est hasbeen authori zed by FDA under an Em ergency Use Authorizati on(EUA) for use by labo ratories certified under the CLIA thatmeet the requirements to perform moderate, high or waivedcomplexit y tests. COMMENTS: If not done this admission
[2020-04-22] MEDS ORDERED: MORPHINE 2 MG/ML SYR ONE ×2 (16:36→17:12)
[2020-04-22] MEDS ORDERED: ONDANSETRON 4 MG/2 ML VIAL ONE (16:36)
[2020-04-22 16:57] LABS: Absolute Lymphocytes (CBC) 0.8 K/uL (0.7-4.9); Hematocrit 36.9 % (36.0-45.0); Lymphocytes % 12.2 % (15.3-44.8); MPV 7.8 fL (7.6-11.3); RBC Red Blood Cell Count 4.27 M/uL (3.86-4.86)
[2020-04-22 16:58] LABS: Protime INR 1.06
--- NOTE | 2020-04-22 17:05 | RAD REPORT ---
EXAM DESCRIPTION: CT - Facial Bones W/ Mpr - 04/22/2020 4:37 pm CLINICAL HISTORY: Right jaw swelling COMPARISON: None TECHNIQUE: Computed axial tomography of the face was obtained. Coronal and sagittal reconstruction w as performed. All CT scans are performed using dose optimization technique as appropriate and may include automated exposure control or mA/KV adjustment according to patient size. FINDINGS: Lucencies are present within right and left mandibular teeth consistent with abscesses. Lucencies are present within the mandibular bone adjacent to the right and left mandibular teeth cons istent with periapical abscesses Swelling is present within the soft tissue anterior to the right mandible consistent with a celluliti s. No additional significant abnormality seen IMPRESSION: Mandibular teeth abscesses Periapical mandibular teeth abscesses
[2020-04-22] MEDS ORDERED: CLINDAMYCIN 600MG/D5W 600 MG/50 ML BAG IV ONE (17:10)
[2020-04-22] MEDS ORDERED: LIDOCAINE 1% W/EPI 1:100,000 MDV 20 ML VIAL ONE (17:43)
[2020-04-22] MEDS ORDERED: BUPIVACAINE 0.5% PF 10 ML VIAL ONE (17:43)
[2020-04-22] MEDS ORDERED: cloNIDine HCL 0.1 MG TAB ONE (18:03)
[2020-04-22 18:20] LABS: Magnesium 2.8 mg/dL (1.8-2.4); Potassium 3.9 mmol/L (3.5-5.1)
[2020-04-22] MEDS ORDERED: HYDRALAZINE HCL 20 MG/ML VIAL ONE (19:05)
[2020-04-22] MEDS ORDERED: HYDROCODONE/APAP 10/325 TAB ONE (19:52)
--- NOTE | 2020-04-22 19:58 | EDPHYS ---
Physician Documentation [facility] Name: Nely Quinones Age: 34 yrs Sex: Female : 1985 Arrival Date: 04/22/2020 Time: 14:11 Bed 6 Private MD: ED Physician Oscar Shultz HPI: 04/22 16:00 This 34 yrs old Black Female presents to ER via Ambulatory with complaints of Jaw cp Swelling, dialysis. 16:00 The patient presents with pain, swelling. cp 16:00 The problem is located in the right lower jaw. cp 16:00 Onset: The symptoms/episode began/occurred 2 day(s) ago. cp 16:00 Duration: The symptoms are continuous, and are steadily getting worse. Associated signs cp and symptoms: Pertinent positives: pain, swelling, Pertinent negatives: anorexia, chills, dysphagia, fever, inability to eat, vomiting. Severity of symptoms: in the emergency department the symptoms are unchanged, despite home interventions. 16:00 Patient reports missing dialysis yesterday due to transportation issues. Did not take cp blood pressure medications today. 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 - Social history:: Smoking status: Patient reports the use of cigarette tobacco products, denies chronic smoking, but will smoke occasionally. ROS: 16:05 ENT: Positive for dental pain, right lower jaw swelling, Negative for drainage from cp ear(s), ear pain, difficulty swallowing, difficulty handling secretions. 16:05 Constitutional: Negative for body aches, chills, fever, poor PO intake. cp 16:05 Eyes: Negative for injury, pain, redness, and discharge. cp 16:05 Cardiovascular: Negative for chest pain. 16:05 Respiratory: Negative for cough, shortness of breath, wheezing. 16:05 Abdomen/GI: Negative for abdominal pain, nausea, vomiting, and diarrhea. 16:05 Neuro: Negative for altered mental status, dizziness, headache, weakness. 16:05 All other systems are negative. cp Exam: 16:10 Constitutional: The patient appears in no acute distress, alert, awake, non-toxic, well cp developed, well nourished, uncomfortable. 16:10 Head/face: Noted is swelling, that is mild, of the right jaw, tenderness, that is cp moderate, of the right jaw. 16:10 Eyes: Periorbital structures: appear normal, Conjunctiva: normal, no exudate, no injection, Lids and lashes: appear normal, bilaterally. 16:10 ENT: External ear(s): are unremarkable, Ear canal(s): are normal, clear, TM's: dullness, bilaterally, Nose: is normal, Mouth: Lips: moist, Oral mucosa: moist, Tongue: is normal, abscess, is not appreciated, Posterior pharynx: Airway: no evidence of obstruction, patent, erythema, is not appreciated, exudate, is not appreciated, Dental exam: abscess, is not appreciated, dental caries, that is moderate, diffusely, pain, that is moderate, specifically in the lower right second bicuspid (#29), Voice: is normal. 16:10 Neck: ROM/movement: is normal, is supple, without pain, no range of motions limitations, no nuchal rigidity. 16:10 Chest/axilla: Inspection: normal, Palpation: crepitus, is not appreciated, tenderness, is not appreciated. 16:10 Cardiovascular: Rate: normal, Rhythm: regular, JVD: is not appreciated, Dialysis shunt: in the right upper chest. 16:10 Respiratory: the patient does not display signs of respiratory distress, Respirations: normal, no use of accessory muscles, no retractions, labored breathing, is not present, Breath sounds: decreased breath sounds, are not appreciated, wheezing: is not appreciated. 16:10 Neuro: Orientation: to person, place \T\ time. Mentation: is normal. Vital Signs: 14:35 BP 221 / 156; Pulse 72; Resp 19 S; Temp 97.8(TE); Pulse Ox 100% on R/A; Weight 65.32 kg ca1 (R); Height 5 ft. 2 in. (157.48 cm) (R); Pain 10/10; 15:41 BP 230 / 136; Pulse 80; Resp 18; Pulse Ox 99% on R/A; zb 16:45 BP 229 / 135; Pulse 82; Resp 18; Pulse Ox 99% on R/A; zb 17:45 BP 231 / 137; Pulse 73; Resp 18; Pulse Ox 100% on R/A; zb 19:14 BP 201 / 120; Pulse 67; Resp 16; Pulse Ox 99% on R/A; zb 19:41 BP 199 / 118; Pulse 69; Resp 19; Pulse Ox 99% ; rr5 14:35 Body Mass Index 26.34 (65.32 kg, 157.48 cm) ca1 MDM: 15:41 Patient medically screened. [facility] 19:55 Data reviewed: vital signs, nurses notes, lab test result(s), radiologic studies, CT cp scan. 19:55 Counseling: I had a detailed discussion with the patient and/or guardian regarding: the cp historical points, exam findings, and any diagnostic results supporting the discharge/admit diagnosis, the presence of at least one elevated blood pressure reading (>120/80) during this emergency department visit, lab results, radiology results, the need for outpatient follow up, for definitive care, a dentist. Response to treatment: the patient's symptoms have markedly improved after treatment, Pain markedly improved. Discussed elevated blood pressure. Patient refused any further treatment and requests discharge to home. Will resume blood pressure medications. 04/22 15:55 Order name: Basic Metabolic Panel; Complete Time: 18:29 04/22 18:31 Interpretation: Normal except: BUN 56; CRE 12.00; GFR 4; CA 7.3. 04/22 15:55 Order name: CBC with Diff; Complete Time: 17:09 04/22 17:09 Interpretation: Normal except: MCV 86.4; PREM% 74.2; LYM% 12.2. 04/22 15:55 Order name: Magnesium; Complete Time: 18:29 04/22 15:55 Order name: PT-INR; Complete Time: 17:09 04/22 15:55 Order name: Lactate; Complete Time: 17:37 04/22 15:55 Order name: Procalcitonin; Complete Time: 17:37 04/22 15:55 Order name: Blood Culture Adult (2) 04/22 15:59 Order name: CT Facial Bones W/O Con; Complete Time: 17:09 04/22 15:55 Order name: Cardiac monitoring; Complete Time: 18:52 04/22 15:55 Order name: EKG - Nurse/Tech; Complete Time: 18:52 04/22 15:55 Order name: IV Saline Lock; Complete Time: 18:52 04/22 15:55 Order name: Labs collected and sent; Complete Time: 18:52 04/22 15:55 Order name: O2 Per Protocol; Complete Time: 18:52 04/22 15:55 Order name: O2 Sat Monitoring; Complete Time: 18:52 cp Administered Medications: 16:30 Drug: morphine 2 mg Route: IVP; Site: right hand; bp 16:30 Drug: Zofran (Ondansetron) 4 mg Route: IVP; Site: right hand; bp 17:22 Follow up: Response: No adverse reaction zb 17:00 Drug: morphine 2 mg Route: IVP; Site: right hand; zb 17:22 Follow up: Response: No adverse reaction; Pain is decreased zb 17:00 Drug: Clindamycin 600 mg Route: IVPB; Infused Over: 30 mins; Site: right hand; zb 17:54 Follow up: Response: No adverse reaction zb 17:53 Drug: cloNIDine 0.2 mg Route: PO; zb 19:11 Follow up: Response: No adverse reaction zb 18:45 Drug: hydrALAZINE 10 mg Route: IV; Rate: calculated rate; Site: right hand; zb 19:36 CANCELLED (Physician Discretion): Hydrocodone-Acetaminophen (7.5 mg-325 mg) 1 tabs PO cp once; RASS on ADMIN: Combtv4, Very Agttd3, Agttd2, Rstlss1, AlertClm0, Drwsy-1, Lt Sdtn-2, Mod Sdtn-3, Dp Sdtn-4, UnArsble-5 19:41 Drug: HYDROcodone-acetaminophen 10 mg-325 mg 1 tabs {Note: rass 0.} Route: PO; rr5 19:53 CANCELLED (Patient Refused): hydrALAZINE 10 mg IV at calculated rate once cp Disposition: 20:10 Chart complete. 04/23 06:52 Co-signature as Attending Physician, Oscar Shultz MD I agree with the assessment and toño plan of care. Disposition: 04/22/20 19:57 Discharged to Home. Impression: Dental caries, unspecified, Cellulitis of face - right lower jaw, Hypertensive chronic kidney disease. - Condition is Stable. - Discharge Instructions: Cellulitis, Adult, Dental Caries, Adult, Dental Pain. - Prescriptions for Clindamycin HCl 300 mg Oral Capsule - take 1 capsule by ORAL route every 6 hours for 10 days; 40 capsule. Tylenol- Codeine #3 300-30 mg Oral Tablet - take 2 tablets by ORAL route every 6 hours As needed; 20 tablet. - Medication Reconciliation Form, Thank You Letter, Antibiotic Education, Prescription Opioid Use form. - Follow up: Private Physician; When: 1 - 2 days; Reason: Recheck today's complaints. - Problem is new. - Symptoms have improved. Signatures: Dispatcher [employer] EDMS Esteban Joshua RN RN Oscar Dozier MD MD cha Page, Corey, ANH PA Michele Olivier, RN RN Toby Simpson RN RN rr5 Judie Davis RN RN ca1 Ninoska Wasserman RN RN zb Corrections: (The following items were deleted from the chart) 04/22 18:31 18:30 Normal except: BUN 56; CRE 12.00; GFR 4. cp cp 19:36 19:36 Hydrocodone-Acetaminophen (7.5 mg-325 mg) 1 tabs PO once; RASS on ADMIN: Combtv4, cp Very Agttd3, Agttd2, Rstlss1, AlertClm0, Drwsy-1, Lt Sdtn-2, Mod Sdtn-3, Dp Sdtn-4, UnArsble-5 ordered. cp 19:53 19:52 hydrALAZINE 10 mg IV at calculated rate once ordered. cp cp 19:59 19:57 04/22/2020 19:57 Discharged to Home. Impression: Dental caries, unspecified; cp Cellulitis of face - right lower jaw. Condition is Stable. Forms are Medication Reconciliation Form, Thank You Letter, Antibiotic Education, Prescription Opioid Use. Follow up: Private Physician; When: 1 - 2 days; Reason: Recheck today's complaints. Problem is new. Symptoms have improved. cp 20:00 19:59 04/22/2020 19:57 Discharged to Home. Impression: Dental caries, unspecified; sg Cellulitis of face - right lower jaw; Hypertensive chronic kidney disease. Condition is Stable. Discharge Instructions: Cellulitis, Adult, Dental Caries, Adult, Dental Pain. Prescriptions for Clindamycin HCl 300 mg Oral Capsule - take 1 capsule by ORAL route every 6 hours for 10 days; 40 capsule, Tylenol-Codeine #3 300-30 mg Oral Tablet - take 2 tablets by ORAL route every 6 hours As needed; 20 tablet. and Forms are Medication Reconciliation Form, Thank You Letter, Antibiotic Education, Prescription Opioid Use. Follow up: Private Physician; When: 1 - 2 days; Reason: Recheck today's complaints. Problem is new. Symptoms have improved. cp
--- NOTE | 2020-04-22 19:58 | ER ---
Nurse's Notes [facility] Name: Nely Quinones Age: 34 yrs Sex: Female : 1985 Arrival Date: 04/22/2020 Time: 14:11 Bed 6 Private MD: Diagnosis: Dental caries, unspecified;Cellulitis of face-right lower jaw;Hypertensive chronic kidney disease Presentation: 04/22 14:35 Chief complaint: Patient states: tooth abscess on R lower tooth x 2 - 3 days. Swelling ca1 on R lower jaw. Pt on Dialysis MWF. Last dialysis was Tuesday04/18/2020. Coronavirus screen: Client denies travel out of the [place] in the last 14 days. At this time, the client does not indicate any symptoms associated with coronavirus-19. The client reports previous COVID testing was negative. Date of collection: March 2020. Ebola Screen: Patient negative for fever greater than or equal to 101.5 degrees Fahrenheit, and additional compatible Ebola Virus Disease symptoms Patient denies exposure to infectious person. Patient denies travel to an Ebola-affected area in the 21 days before illness onset. No symptoms or risks identified at this time. Initial Sepsis Screen: Does the patient meet any 2 criteria? No. Patient's initial sepsis screen is negative. Does the patient have a suspected source of infection? No. Patient's initial sepsis screen is negative. Risk Assessment: Do you want to hurt yourself or someone else? Patient reports no desire to harm self or others. Onset of symptoms was April 22, 2020. 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 - Social history:: Smoking status: Patient reports the use of cigarette tobacco products, denies chronic smoking, but will smoke occasionally. Screenin:57 Abuse screen: Denies threats or abuse. Denies injuries from another. Nutritional zb screening: No deficits noted. Tuberculosis screening: No symptoms or risk factors identified. 15:57 Fall Risk None identified. No fall in past 12 months (0 pts). No secondary diagnosis (0 zb pts). IV access (20 points). Ambulatory Aid- None/Bed Rest/Nurse Assist (0 pts). Gait- Normal/Bed Rest/Wheelchair (0 pts) Mental Status- Oriented to own ability (0 pts). Total Benavides Fall Scale indicates No Risk (0-24 pts). Assessment: 15:57 General: Appears in no apparent distress. uncomfortable, Behavior is calm, cooperative, zb appropriate for age. Pain: Complains of pain in Right Jaw area Pain radiates to down right neck Pain currently is 10 out of 10 on a pain scale. Quality of pain is described as aching, Pain began 2-3 days ago. Is continuous, Alleviated by nothing. pt states she has tried Listerine and heat. Aggravated by increased activity. Neuro: No deficits noted. Level of Consciousness is awake, alert, obeys commands, Oriented to person, place, time, situation. 15:57 Cardiovascular: Denies chest pain. Respiratory: Airway is patent Trachea midline zb Respiratory effort is even, unlabored. GI: Abdomen is flat. :. EENT:. Derm: Skin is intact, is healthy with good turgor. Musculoskeletal: Circulation, motion, and sensation intact. Capillary refill < 3 seconds, in bilateral fingers. 16:57 Reassessment: Patient appears in no apparent distress at this time. Patient and/or zb family updated on plan of care and expected duration. Pain level reassessed. Patient is alert, oriented x 3, equal unlabored respirations, skin warm/dry/pink. Pain: Complains of pain in right jaw pain. 17:57 Reassessment: Patient appears in no apparent distress at this time. Patient and/or zb family updated on plan of care and expected duration. Pain level reassessed. Patient is alert, oriented x 3, equal unlabored respirations, skin warm/dry/pink. bp remains elevated. pain level decrease after MD placed numbing agent. 18:45 Reassessment: Patient appears in no apparent distress at this time. Patient and/or zb family updated on plan of care and expected duration. Pain level reassessed. Patient is alert, oriented x 3, equal unlabored respirations, skin warm/dry/pink. Patient states feeling better. Patient states symptoms have improved. Vital Signs: 14:35 BP 221 / 156; Pulse 72; Resp 19 S; Temp 97.8(TE); Pulse Ox 100% on R/A; Weight 65.32 kg ca1 (R); Height 5 ft. 2 in. (157.48 cm) (R); Pain 10/10; 15:41 BP 230 / 136; Pulse 80; Resp 18; Pulse Ox 99% on R/A; zb 16:45 BP 229 / 135; Pulse 82; Resp 18; Pulse Ox 99% on R/A; zb 17:45 BP 231 / 137; Pulse 73; Resp 18; Pulse Ox 100% on R/A; zb 19:14 BP 201 / 120; Pulse 67; Resp 16; Pulse Ox 99% on R/A; zb 19:41 BP 199 / 118; Pulse 69; Resp 19; Pulse Ox 99% ; rr5 14:35 Body Mass Index 26.34 (65.32 kg, 157.48 cm) ca1 ED Course: 14:11 Patient arrived in ED. mr 14:40 Triage completed. ca1 14:41 Arm band placed on right wrist. ca1 15:20 Patient has correct armband on for positive identification. Placed in gown. Bed in low zb position. Call light in reach. Side rails up X 1. 15:29 Michele Yeager, RN is Primary Nurse. bp 15:40 Oscar Bhat PA is PHCP. cp 15:40 Oscar Shultz MD is Attending Physician. cp 15:56 Ninoska Wasserman RN is Primary Nurse. zb 16:00 No provider procedures requiring assistance completed. Inserted saline lock: 20 gauge zb in right hand, using aseptic technique. 16:37 CT Facial Bones W/O Con In Process Unspecified. EDMS 19:56 IV discontinued, intact, bleeding controlled, No redness/swelling at site. Pressure ds4 dressing applied. Administered Medications: 16:30 Drug: morphine 2 mg Route: IVP; Site: right hand; bp 16:30 Drug: Zofran (Ondansetron) 4 mg Route: IVP; Site: right hand; bp 17:22 Follow up: Response: No adverse reaction zb 17:00 Drug: morphine 2 mg Route: IVP; Site: right hand; zb 17:22 Follow up: Response: No adverse reaction; Pain is decreased zb 17:00 Drug: Clindamycin 600 mg Route: IVPB; Infused Over: 30 mins; Site: right hand; zb 17:54 Follow up: Response: No adverse reaction zb 17:53 Drug: cloNIDine 0.2 mg Route: PO; zb 19:11 Follow up: Response: No adverse reaction zb 18:45 Drug: hydrALAZINE 10 mg Route: IV; Rate: calculated rate; Site: right hand; zb 19:36 CANCELLED (Physician Discretion): Hydrocodone-Acetaminophen (7.5 mg-325 mg) 1 tabs PO cp once; RASS on ADMIN: Combtv4, Very Agttd3, Agttd2, Rstlss1, AlertClm0, Drwsy-1, Lt Sdtn-2, Mod Sdtn-3, Dp Sdtn-4, UnArsble-5 19:41 Drug: HYDROcodone-acetaminophen 10 mg-325 mg 1 tabs {Note: rass 0.} Route: PO; rr5 19:53 CANCELLED (Patient Refused): hydrALAZINE 10 mg IV at calculated rate once cp Outcome: 19:57 Discharge ordered by . cp 20:00 Patient left the ED. sg Signatures: Dispatcher [employer] EDMS Esteban Joshua RN RN sg Nely Steele Donovan ds4 Oscar Bhat PA PA cp Michele Yeager, RN RN bp Toby Cruz RN RN rr5 Judie Davis RN RN ca1 Ninoska Wasserman RN RN zb Corrections: (The following items were deleted from the chart) 16:51 16:47 Zofran (Ondansetron) 4 mg IVP in right antecubital bp bp 17:35 16:57 Pain: Complains of pain in right jaw pain zb zb
[2020-04-23 01:24] VITALS: TEMP 97.8
[2020-04-23 01:32] VITALS: O2SAT 99
[2020-04-23 01:35] VITALS: BP 199/118
== END 2020-04-22 20:00 | disposition home or self-care (01) ==
LOC: ER 13:54
DX: K02.9 Dental caries, unspecified (principal); L03.211 Cellulitis of face; I12.0 Hypertensive chronic kidney disease with stage 5 chronic kidney disease or end stage renal disease; N18.6 End stage renal disease; F17.210 Nicotine dependence, cigarettes, uncomplicated; Z99.2 Dependence on renal dialysis
CPT/HCPCS: 87040 ×2; 85025; 80048; 36415; 83735; 87205; 85610; 83605; 84145; 70486; 76377; 96375; 96374; 99284; J0360; J2270 ×2; J2405

== ENCOUNTER 2020-11-13 15:22 | Inpatient (IN) | payer OTHER ==
--- OUTSIDE RECORDS SUMMARY | 2020-11-13 15:27 | XMS REPORT | Continuity of Care Document ---
:1985 Author Organization [facility] t Address [address] [place] [address] Care Team Providers Name Role Phone Pcp Primary Care Physician Unavailable Madie DANIELLE, K N Attending Clinician Gino MILLER Attending Clinician Unavailable Juan YORK, Y Attending Clinician Unavailable Abigail Link Attending Clinician Unavailable Edu YORK Attending Clinician Unavailable [facility] Clinician Unavailable Bunny Barron MD Attending Clinician Chito Jung MD Attending Clinician Maday Attending Clinician Unavailable BUNNY BARRON Attending Clinician Unavailable Demetris Attending Clinician Unavailable Malinda Attending Clinician Unavailable Balta Attending Clinician Unavailable 1, Alannah Room Attending Clinician Unavailable Bay Attending Clinician Unavailable Payers Payer Name Policy Type Policy Effective Date Expiration Date Sour ce Number MEDICAREMEDICARE A [id number] 2020 JAMIE Savage [id number] 2019-P 00:00:00 - [facility] MEDICAIDMEDICAID OF [id number] 2020 [facility] [id number] 2019 00:00:00 - [facility] Problems This patient has no known problems. Allergies, Adverse Reactions, Alerts Allergy Allergy Status Severity Reaction(s) Onset Inactive Treating Comm ents Source Name Type Date Date Clinician No Known DA Active U [facility]14 Clear Allergie 00:00: Alatorre s 00 [facility] hydrocod DA Active U 2013-06 [facility] one 0-03 Clear 00:00: Alatorre 00 [facility] Family History Family Member Diagnosis Comments Start Date Stop Date Source Natural brother No Known Problem [facility] Maternal uncle Kidney disease [facility] Natural mother Heart defect [facility] Natural sister No Known Problem [facility] Social History Social Habit Start Date Stop Date Quantity Comments Source History of Current smoker [facility] Tobacco use and 2020-10-07 2020-10-07 Never used [facility] - exposure 00:00:00 00:00:00 [facility] Alcohol intake 2020-10-07 2020-10-07 Ex-drinker [facility] - 00:00:00 00:00:00 (finding) [facility] Tobacco Comment 2020-10-07 2020-10-07 smoked 1 year [facility] - 00:00:00 00:00:00 [facility] Alcohol Comment 2020-10-07 2020-10-07 1 glass of wine [facility] - 00:00:00 00:00:00 [facility] Smoking Status Start Date Stop Date Source Former smoker 2020-10-07 00:00:00 2020-10-07 00:00:00 [facility] Medications Ordered Filled Start Stop Current Ordering Indication Dosage Frequency Signature Comments Components Source Medication Medication Date Date Medication? Clinician (SIG) Name Name HYDROcodone Yes 1{tbl} Take [address] -acetaminop 4-27 tablet by [place] huynh (NORCO 13:12: mouth Medica l 10-325) 58 every 6 Center 10-325 mg (six) per tablet hours as needed for Pain. sevelamer 2021-0 Yes 1600mg Take 1,[address] (RENVELA) 4-27 mg by [facility] - 800 mg 13:12: mouth 3 Medical tablet 58 (three) Center times daily with meals. ramipriL Yes 10mg QD Take [address] (ALTACE) 10 4-27 by mouth Luke s - MG capsule 13:12: daily. Medic al 58 Center metoprolol Yes 25mg Q.5D Take [address] tartrate 4-27 by mouth 2 [facility] - (LOPRESSOR) 13:12: (two) Medic al 25 MG 58 times Center tablet daily. NIFEdipine Yes 30mg Q.19702032 Take [address] (PROCARDIA) 4-27 [id number] by mouth 3 [facility] - 10 MG 13:12: 3D (three) Medical capsule 58 times Center daily. spironolact Yes 50mg QD Take [address] one 4-27 by mouth [facility] - (ALDACTONE) 13:12: daily. Medi cinhtia 50 MG 58 Center tablet doxazosin Yes 8mg Q.91216964 Take [address] (CARDURA) 8 -27 [id number] by mouth 3 [facility] - MG tablet 12:13: 3D (three) Medic al 58 times Center daily . cholecalcif Yes 5000U QD Take 5,[address] [place], 4-27 Units by [facility]ukes - vitamin D3, 12:13: mouth Medic al 125 mcg 58 daily. Center (5,000 unit) Tab hydrALAZINE 2020- No 10mg Q.21062432 Take [address] (APRESOLINE -27 - [id number] by mouth 3 [facility] - ) 10 MG 12:13: 00:00 3D (three) Medica l tablet 24 :00 times Center daily. Vital Signs Vital Name Observation Time Observation Value Comments Source Systolic blood 2020-10-07 11:13:00 202 mm[Hg] [facility] Diastolic blood 2020-10-07 11:13:00 133 mm[Hg] [facility] pressure [facility] Center Heart rate 2020-10-07 11:13:00 73 /min [facility] - [facility] Body temperature 2020-10-07 11:13:00 36.61 Lois [facility] Respiratory rate 2020-10-07 11:13:00 20 /min [facility] Body height 2020-10-07 11:13:00 159.2 cm [facility] Body weight 2020-10-07 11:13:00 66.225 kg [facility] BMI 2020-10-07 11:13:00 26.13 kg/m2 [facility] Procedures Procedure Date / Time Performing Clinician Source Performed URINE CULTURE 2020-10-07 10:08:00 Anderson, Bhamidipati [facility] URINALYSIS W/ MICROSCOPIC 2020-10-07 10:08:00 Anderson, Bhamidipat i [facility] HEMOGLOBIN A1C 2020-10-07 10:07:00 Anderson, Bhamidipati [facility] CBC W/PLT COUNT & AUTO 2020-10-07 10:07:00 Anderson, Bhamidipati C HI [facility] DIFFERENTIAL [facility] CYTOMEGALOVIRUS ANTIBODY, 2020-10-07 10:07:00 Anderson, Bhamidipat i [facility] IGG [facility] CYTOMEGALOVIRUS ANTIBODY, 2020-10-07 10:07:00 Anderson, Bhamidipat i [facility] IGM [facility] COMPREHENSIVE METABOLIC 2020-10-07 10:07:00 Anderson, Bhamidipati [facility] PANEL [facility] EBV ANTIBODY, IGG 2020-10-07 10:07:00 Anderson, Bhamidipati [facility] GAMMA GLUTAMYL TRANSFERASE 2020-10-07 10:07:00 Anderson, Bhamidipa ti [facility] (GGT) [facility] HEPATITIS B SURFACE ANTIBODY 2020-10-07 10:07:00 Anderson, Bhamidi lev [facility] HEPATITIS B SURFACE ANTIGEN 2020-10-07 10:07:00 Anderson, Bhamidip ati [facility] HEPATITIS B CORE ANTIBODY, 2020-10-07 10:07:00 Anderson, [facility] IGM [facility] HEPATITIS C ANTIBODY 2020-10-07 10:07:00 Anderson, [facility] HC LAB HIV-1 AG W/HIV-1&2 AB 2020-10-07 10:07:00 Anderson, [facility] PHOSPHORUS 2020-10-07 10:07:00 Anderson, [facility] PTH, INTACT 2020-10-07 10:07:00 Anderson, [facility] PT/APTT 2020-10-07 10:07:00 [facility], [facility] PROTHROMBIN TIME/INR 2020-10-07 10:07:00 Anderson, [facility] RPR 2020-10-07 10:07:00 Anderson, [facility] URIC ACID 2020-10-07 10:07:00 Anderson, [facility] VARICELLA ZOSTER ANTIBODY, 2020-10-07 10:07:00 Anderson, [facility] IGG [facility] ANTITHROMBIN III 2020-10-07 10:07:00 Anderson, [facility] FACTOR 5 LEIDEN PCR 2020-10-07 10:07:00 Anderson, [facility] (THROMBOTIC RISK) [facility] HC LAB PROTHROMBIN FACTOR II 2020-10-07 10:07:00 Anderson, [facility] PROTEIN C ACTIVITY 2020-10-07 10:07:00 Anderson, [facility] PROTEIN S ACTIVITY 2020-10-07 10:07:00 Anderson, [facility] PHOSPHATIDYLSERINE ABS (IGG, 2020-10-07 10:07:00 Anderson, Bhamidi lev [facility] - IGM) [facility] DIRECT AHG (JOHANN)/DIRECT 2020-10-07 10:07:00 Anderson, Bhamidipati [facility] ABORH, MANUAL 2020-10-07 10:07:00 Anderson, Bhamidipati [facility] US PELVIS WITH DOPPLER 2020-09-25 12:09:00 Anderson, Bhamidipati C HI [facility] US ABDOMEN COMPLETE 2020-09-25 11:38:00 Anderson, amidipati [facility] XR CHEST 2 VIEWS 2020-09-25 10:24:00 Anderson, amidipati [facility] 2D ECHO W/ DOPPLER 2020-09-25 08:44:17 Anderson, amidipati [facility] - (CW/PW/COLOR) [facility] ECG 12-LEAD 2020-09-25 08:24:21 Anderson, Bhamidipati [facility] T SPOT TB 2020-09-25 08:06:00 Anderson, amidipati [facility] FLOW PRA CLASS I WITH REFLEX 2020-09-25 08:05:00 Anderson, Bhamidi lev [facility] - TO ANTIBODY SPECIFICITY [facility] FLOW PRA CLASS II WITH 2020-09-25 08:05:00 Anderson, Bhamidipati C [facility] - REFLEX TO ANTIBODY [facility] SPECIFICITY HLA TYPING CI 2020-09-25 08:05:00 Anderson, Bhamidipati [facility] HLA TYPING CII 2020-09-25 08:05:00 Anderson, amidipati [facility] LIPID PANEL 2020-09-25 08:05:00 Anderson, amidpremier healthti [facility] BLOOD TYPING, AUTOMATED 2020-09-25 08:05:00 Anderson, amidipati [facility] Plan of Care Planned Activity Planned Date Details Comments Source Future Scheduled 2027-12-07 DTAP/TDAP/TD VACCINES [facility] Test 00:[facility]00 (4 - Td) [code = Medical [facility] DTAP/TDAP/TD VACCINES (4 - Td)] Future Scheduled 2023-09-[address] [facility] - Test 00:00:00 (procedure) [code = [facility] [id number]] Future Scheduled 2021-02-[address] [facility] - Test 00:00:00 (Season Ended) [code = [facility] INFLUENZA VACCINE (Season Ended)] Future Scheduled 2020-06-[address] [facility] - Test 00:00:00 (12+) [code = [facility] Center DEPRESSION SCREENING (12+)] Future Scheduled 2020-02-12 Medicare IPPE (WELCOME [facility] - Test 00:00:00 TO MEDICARE) [code = [facility] Medicare IPPE (WELCOME TO MEDICARE)] Future Scheduled [address] [facility] - Test 00:00[facility]00 [facility]procedure) [code = 298261258] Future Scheduled 1998 COVID-19 VACCINE (1) [facility] - Test 00:00:00 [code = COVID-[address] VACCINE (1)] Future Scheduled [address] [facility] - Test 00:00:00 0-64 YRS (1 of 1 - Medical C enter PPSV23) [code = PNEUMOCOCCAL VACCINE 0-64 YRS (1 of 1 - PPSV23)] Encounters Start End Encounter Admission Attending Care Care Encounter Source Date/Time Date/Time Type Type Clinicians Facility Department ID 2020-11-13 2020-11-13 Case Gamilla-Cru [facility] [id number] 00:00:00 00:00:00 Bee Rae do MULTISPEC [id number] [place] [id number] [place] [id number] [facility] 2020-11-06 2020-11-06 Case Gamilla-Cru [facility] [id number] 00:00:00 00:00:00 Bee Rae do MULTISPEC [id number] [place] [id number] [place] [id number] [facility] 2020-09-03 2020-09-03 Telephone Elizabeth [facility] [id number] 00:00:00 00:00:00 Bee MULTISPEC 350.1.13.10 IAL[place] [id number] [place] [id number] [facility] [place] [address] Results Test Description Test Time Test Comments Results Result Comments Source Phosphatidylserine Abs (IgG, IgM) 2020-10-14 09:24:00 Test Item Value Reference Range Interpretation Comme nts PHOSPHATIDYLSERINE AB(IGG) <10 U/mL <10 Negative 10-20 (test code = 4650) Equivocal - Found in small percentage of the healthy pop ulation; may be reactive >20 Positive - Risk factor for thrombosis and loss PHOSPHATIDYLSERINE AB <25 U/mL The an tiphospholipid antibody (IGM) (test code = syndrome (APS) lita 6376145) clinical-pathol ogic correlation that includesa clinical event (e.g. thrombosi s, pregnancyloss, thrombocytopeni a) and persistent positiveantipho spholipid antibodies (IgM or IgG JENSEN>40 MPL/GPL,IgM or IgG anti-b2GPI antibodies ora lupus anticoagulant). International consensusguidel radha for APS suggest waiting at least 12weeks before retestin g to confirm antibodypersist ence. The Systemic Lupus Internati onalCollaborating Clinics immunologicalcl assification criteria for [facility] lupuserythemato vishal (SLE) include testing for iso typeIgA, which has yet to be incor porated into APScriteria. Lo w level antiphospholipi d antibodiesmay sometimes be de tected in the setting ofinfec tion, drug therapy or aging. <2 5 Negative 25-35 Equivocal- Fou nd in small percentage of the healthy pop ulation; may be reactive >35 Positive - Risk factor for thrombosis RACQUEL (test code = RACQUEL) Performing Lab [facility] [address] [place] [address] Daija Green MD, PhD, KRISHNA [facility] CampusProthrombin Gene [id number] 16:22:00 Test Item Value Reference Interpretation Comments Range PROTHROMBIN GENE NEGATIVE RESULT: G20 210A VARIANT NOT ANALYSIS (test DETECTED code = 7598485) Interpretation See Below INTERPRETATIO N: This (test code = individual is n egative 5439221) (normal) for th e [id number] in the Prothrombin/Fac tor II gene. Increased risk ofthrombophilia can be caused by a morgan iety of genetic and non-geneticfact ors not screened for by this assay. Laboratory test ing supervised and results monitored by Carol Steinberg,Ph.D., D ABG, [facility]. The B95200Q mut ation [DE133378.1: g. 16210A>A (c.*97G>A)] in theProthrombin/ Factor II gene is the sec ond most common inherite d riskfactor for thrombosis occurring in approximately 2 % of Caucasians.Pres ence of the mutation is ass ociated with an elevation of prothrombin levels to about 30% above normal in heter ozygotes and to70% above nor mal in homozygotes. Pr othrombin (F03168S) mutat ions are detected by amp lification oftheir selecte d gene regions by poly merase chain reaction (PCR) andfluorescent probe hybridization t o the targeted region , followed bymelting curve analysis with a real Baihe e PCR system. Although rare,f alse positive or false negati ve results may occur. All resultsshould be interpreted in context of clinical findin gs, relevanthistory , and other laboratory data . Health care providers, plea se contact your local Ques t Diagnostics'gen etic counselor or carol abraham [phone] ([phone]) forassistance with interpreta tion of these results. This t est was developed and i ts analytical performancechar acteristics have been deter mined by [facility] [place]. It has not been cleared or appr elva bythe FDA. This assay has been validated pursu ant to the CLIAregulations and is used for clinical pu rposes. RACQUEL (test code = Performing Lab RACQUEL) [facility] [address] [place] [address] Daija Green MD, PhD, KRISHNA [facility] Leiden PCR (thrombotic risk)2020-10-11 13:14:00 Test Item Value Reference Interpretation Comments Range Factor V Leiden NEGATIVE FACTOR V LEI DEN (R506Q) Mutation (test VARIANT NOT D ETECTED code = 4811892) Interpretation See Below INTERPRETATIO N: This (test code = individual is n egative 3184339) (normal) for th e Factor VLeiden (R506Q) variant in the Factor 5 ge ne. Increased risk ofthrombop hilia can be caused by a morgan iety of genetic and non-geneticfact ors not screened for by this assay. Laboratory test ing supervised and results monitored by Bonita Durán MD, PhD, FAC, CGM BS. MUTATION ANALYSIS:The Fa ctor V Leiden (R506Q) mutatio n [NM_000130.2:c. 1601G>A(p. R534Q)] in the Factor V gene is one of the m ost common causes ofinheri liya thrombophilia. This mutation causes resistan ce todegradation o f activated Factor V protei n by activated Prote in C(APC). The Factor V Le iden (R506Q) mutation is det ected by amplification o fthe selected region of the F actor V gene by polymerase c sagar reaction(PCR) a nd fluorescent pro be hybridization t o the targeted region ,followed by melting curve a nalysis with a real time PCR system.Although rare, false positive or fal se negative results may occ ur.All results should be interpreted in context of clinical findin gs,relevant history, and ot her laboratory data . Health care providers, plea se contact your local Ques t Diagnosticsgene tic counselor or call [employer] ([phone]) for assistancewith interpretation of these results. This t est was developed and i ts analytical performancechar acteristics have been deter mined by [facility] [place]. It has not been cleared or appr elva bythe FDA. This assay has been validated pursu ant to the CLIAregulations and is used for clinical pu rposes. RACQUEL (test code = Performing Lab RACQUEL) [facility] [address] [place] [address] Daija Green MD, PhD, KRISHNA [facility] CampusProtein S [id number] 03:55:00 Test Item Value Reference Range Interpretation Comments Protein S 95 See_Comment Decreased leve ls of Functional (test Protein S a ctivity code = 9341855) may be found in patients withhereditary deficiency, war farin therapy, vitami n k deficiency, dominick er disease,DIC, or recent thrombos is as well as after surgery. In addition, it ma y bephysiologic i n . An elevated Protei n S activity is not clinicallysigni fican t. Only deficie ncies are associated with an increased thromboticrisk. [Automated mess age] The system eyefactive generated this result transmit liya reference range : 60 - 140 % normal. The reference range was not used to interpret this result as normal/abnormal . RACQUEL (test code = Performing Lab RACQUEL) [facility] [address] [place] [address] Daija Green MD, PhD, KRISHNA [facility] CampusUrine [id number] 07:38:00 Test Item Value Reference Range Interpretation Comments Result (test code = See comment 6463-4) RACQUEL (test code = >100,000 col/mL enteric RACQUEL) organisms of >2 types. No further workup performed. Multiple organisms suggestive of colonization or contamination. Repeat collection recommended.40-49,000 col/mL skin beth [facility] CampusURINE [id number] 07:38:00 Test Item Value Reference Range Interpretation Comments CULTURE (BEAKER) (test code = See comment 1095) >100,000 col/mL enteric organisms of >2 types. No further workup performed. Multiple organismssuggestive of colonization or contamination. Repeat collection recommended.40-49,000 col/mL skin [id number] 14:26:00 Test Item Value Reference Range Interpretation Comments RPR (test code = 45402-5) Nonreactive Nonreactive Lab Interpretation (test code = Normal 08702-3) [facility] [id number] 14:26:00 Test Item Value Reference Range Interpretation Comments RPR SCREEN (BEAKER) (test code = Nonreactive Nonreactive 420) Varicella Zoster Antibody, [id number] 14:12:00 Test Item Value Reference Range Interpretation Comments Varicella IgG (test 2.8 code = 45290-5) RACQUEL (test code = RACQUEL) VARICELLA ZOSTER RESULT INTERPRETATIONS: <=0.8 Al Nonreactive: Presumed non-immune to VZV 0.9-1.0 Al Equivocal >=1.1 Al Reactive: Presumed immune to VZV [facility] CampusVARICELLA ZOSTER ANTIBODY, [id number] 14:12:00 Test Item Value Reference Range Interpretation Comments VARICELLA ZOSTER IGG (AL) (BEAKER) 2.8 (test code = 3197) VARICELLA ZOSTER RESULT INTERPRETATIONS: <=0.8 Al Nonreactive: Presumed non-immune to VZV 0.9-1.0 Al Equivocal >=1.1 Al Reactive: Presumed immune to VZVCytomegalovirus antibody, [id number] 13:54:00 Test Item Value Reference Range Interpretation Comments CYTOMEGALOVIRUS, IGG Positive Negative, A (test code = 3429) Equivocal RACQUEL (test code = RACQUEL) CMV IgG Result Interpretation: </= 0.8 Al Negative 0.9-1.0 Al Equivocal >/=1.1 Al Positive Lab Interpretation (test Abnormal code = 04737-8) [facility] CampusEBV-VCA antibody, [id number] 13:54:00 Test Item Value Reference Range Interpretation Comments ALETA BOWLING VIRAL Positive Negative, A CAPSID ANTIGEN IGG (test Equivocal code = 3415) RACQUEL (test code = RACQUEL) Aleta Bowling Viral Capsid Antigen IgG Result Interpretation: </= 0.8 Al Negative 0.9-1.0 Al Equivocal >/= 1.1 Al Positive Lab Interpretation (test Abnormal code = 74208-7) [facility] CampusEBV-VCA antibody, [id number] 13:54:00 Test Item Value Reference Range Interpretation Comments ALETA BOWILNG VIRAL Negative Negative, CAPSID ANTIGEN IGM (test Equivocal code = 3418) RACQUEL (test code = RACQUEL) Aleta Bowling Viral Capsid Antigen IgM Result Interpretation: </= 0.8 Al Negative 0.9-1.0 Al Equivocal >/= 1.1 Al Positive Lab Interpretation (test Normal code = 26551-5) [facility] CampusCytomegalovirus antibody, [id number] 13:54:00 Test Item Value Reference Range Interpretation Comments CMV IGM (test code = Negative Negative, 3437) Equivocal RACQUEL (test code = RACQUEL) CMV IgM Result Interpretation: </= 0.8 Al Negative 0.9-1.0 Al Equivocal >/= 1.1 Al Positive Lab Interpretation (test Normal code = 30244-6) [facility] CampusCYTOMEGALOVIRUS ANTIBODY, [id number] 13:54:00 Test Item Value Reference Range Interpretation Comments CYTOMEGALOVIRUS, IGG (BEAKER) Positive Negative, Equivocal A (test code = 3429) CMV IgG Result Interpretation: </= 0.8 Al Negative 0.9-1.0 Al Equivocal >/=1.1 Al PositiveCYTOMEGALOVIRUS ANTIBODY, [id number] 13:54:00 Test Item Value Reference Range Interpretation Comments CYTOMEGALOVIRUS IGM ANTIBODY Negative Negative, Equivocal (BEAKER) (test code = 3437) CMV IgM Result Interpretation: </= 0.8 Al Negative 0.9-1.0 Al Equivocal >/= 1.1 Al PositiveEBV ANTIBODY, [id number] 13:54:00 Test Item Value Reference Range Interpretation Comments ALETA BOWLING VIRAL CAPSID Positive Negative, Equivocal A ANTIGEN IGG (BEAKER) (test code = 3415) Aleta Bowling Viral Capsid Antigen IgG Result Interpretation: </= 0.8 Al Negative 0.9-1.0 Al Equivocal >/= 1.1 Al PositiveEBV ANTIBODY, IGM 2020-10-08 13:54:00 Test Item Value Reference Range Interpretation Comments ALETA BOWLING VIRAL CAPSID Negative Negative, Equivocal ANTIGEN IGM (BEAKER) (test code = 3418) Aleta Bowling Viral Capsid Antigen IgM Result Interpretation: </= 0.8 Al Negative 0.9-1.0 Al Equivocal >/= 1.1 Al PositiveProtein C activity 2020-10-08 10:42:00 Test Item Value Reference Range Interpretation Comments Protein C Activity (test code = 108.0 % 70-130 49005-7) Lab Interpretation (test code = Normal 09845-9) [facility] CampusPROTEIN C [id number] 10:42:00 Test Item Value Reference Range Interpretation Comments PROTEIN C ACTIVITY (BEAKER) (test 108.0 % 70.0-130.0 code = 582) Hemoglobin [id number] 16:04:00 Test Item Value Reference Range Interpretation Comments Hemoglobin A1C (test code = 4548-4) 4.6 % 4.3-6.1 Lab Interpretation (test code = Normal 54310-0) [facility] CampusHEMOGLOBIN [id number] 16:04:00 Test Item Value Reference Range Interpretation Comments HEMOGLOBIN A1C (BEAKER) (test code = 4.6 % 4.3-6.1 368) Hepatitis B surface [id number] 14:44:00 Test Item Value Reference Interpretation Comments Range Hep B S Ab (test 1462.6 See_Comment H [Automated code = 72264-3) message] The system which generated this result transmitted reference range : <8.0 mIU/mL. Th e reference range was not used to interpret this result as normal/abnormal . RACQUEL (test code = Lump Room Supervisor ID - RACQUEL) ROSIANGOperator ID - ROSIANG Lab Interpretation Abnormal (test code = 32631-0) [facility]HEPAT[facility] SURFACE [id number] 14:44:00 Test Item Value Reference Range Interpretation Comments HEPATITIS B SURFACE ANTIBODY 1462.6 mIU/mL <8.0 H (BEAKER) (test code = 647) Lump Room Supervisor ID - ROSIANGOperator ID - ROSIANGUrinalysis, [id number] 14:42:00 Test Item Value Reference Range Interpretation Comments Color, UA (test code Yellow = 5778-6) Clarity, UA (test Clear code = 5767-9) Specific [place], UA 1.012 1.001-1.035 (test code = 5811-5) pH, UA (test code = 8.0 5.0-8.0 5803-2) Protein, UA (test 70 mg/dL Negative A code = 33143-5) Glucose, UA (test Negative Negative code = 365) Ketones, UA (test Negative Negative code = 2514-8) Bilirubin, UA (test Negative Negative code = 47773-6) Blood, UA (test code Negative Negative = 09660-5) Nitrite, UA (test Negative Negative code = 5802-4) Leukocytes, UA (test Negative Negative code = 5799-2) Urobilinogen, UA 0.2 mg/dL 0.2-1 (test code = 27646-0) RBC, UA (test code = <1 See_Comment [Autom ated 48016-9) message] The system which generated this result transmit liya reference range : /HPF. The reference range was not used to interpret this result as normal/abnormal . WBC, UA (test code = 2 See_Comment [Autom ated 5821-4) message] The system which generated this result transmit liya reference range : /HPF. The reference range was not used to interpret this result as normal/abnormal . Squam Epithel, UA 4 See_Comment [Automate d (test code = 88032-8) messag e] The system which generated this result transmit liya reference range : /HPF. The reference range was not used to interpret this result as normal/abnormal . Hyaline Casts, UA 1 See_Comment [Automate d (test code = 62045-5) messag e] The system which generated this result transmit liya reference range : /LPF. The reference range was not used to interpret this result as normal/abnormal . Specimen Source (test code = 2795) RACQUEL (test code = RACQUEL) Lump Room Supervisor ID - [auto]Lump Room Supervisor ID - tech Lab Interpretation Abnormal (test code = 56135-6) [facility]URINALYSIS W/ [id number] 14:42:00 Test Item Value Reference Range Interpretation Comments COLOR (BEAKER) (test code = 470) Yellow CLARITY (BEAKER) (test code = 469) Clear SPECIFIC GRAVITY UA (BEAKER) (test 1.012 1.001-1.035 code = 468) PH UA (BEAKER) (test code = 467) 8.0 5.0-8.0 PROTEIN UA (BEAKER) (test code = 70 mg/dL Negative A 464) GLUCOSE UA (BEAKER) (test code = Negative Negative 365) KETONES UA (BEAKER) (test code = Negative Negative 371) BILIRUBIN UA (BEAKER) (test code = Negative Negative 462) BLOOD UA (BEAKER) (test code = 461) Negative Negative NITRITE UA (BEAKER) (test code = Negative Negative 465) LEUKOCYTE ESTERASE UA (BEAKER) Negative Negative (test code = 466) UROBILINOGEN UA (BEAKER) (test code 0.2 mg/dL 0.2-1.0 = 463) RBC UA (BEAKER) (test code = 519) < /HPF WBC UA (BEAKER) (test code = 520) 2 /HPF SQUAMOUS EPITHELIAL (BEAKER) (test 4 /HPF code = 516) HYALINE CASTS (BEAKER) (test code = 1 /LPF 514) SOURCE(BEAKER) (test code = 2795) Lump Room Supervisor ID - [auto]Lump Room Supervisor ID - techHepatitis B surface [id number] 14:30:00 Test Item Value Reference Range Interpretation Comments HBsAg Screen (test code Nonreactive Nonreactive = 5195-3) RACQUEL (test code = RACQUEL) Specimen is considered negative for HBsAg. Lab Interpretation (test Normal code = 01287-3) [facility]Hepatitis B core antibody, [id number] 14:30:00 Test Item Value Reference Range Interpretation Comments Hep B C IgM (test code = Nonreactive Nonreactive 10382-8) RACQUEL (test code = RACQUEL) Lump Room Supervisor ID - [employer] ([place]) Lab Interpretation (test Normal code = 39018-1) [facility] CampusHepatitis C [id number] 14:30:00 Test Item Value Reference Range Interpretation Comments Hepatitis C Ab (test Nonreactive Nonreactive code = 87828-3) RACQUEL (test code = RACQUEL) Lump Room Supervisor ID - [employer] ([place]) Lab Interpretation (test Normal code = 12446-7) [facility]HIV-1 Antigen with HIV-1/2 [id number] 14:30:00 Test Item Value Reference Range Interpretation Comments HIV-1 Antigen with HIV Nonreactive Nonreactive 1&2 Antibody (test code = 17770-0) RACQUEL (test code = RACQUEL) Lump Room Supervisor ID - [facility] Lab Interpretation (test Normal code = 71044-3) [facility] CampusHEPATITIS B SURFACE [id number] 14:30:00 Test Item Value Reference Range Interpretation Comments HEPATITIS B SURFACE ANTIGEN (2) Nonreactive Nonreactive (BEAKER) (test code = 2585) Specimen is considered negative for HBsAg.HEPATITIS B CORE ANTIBODY, IGM 2020-10-07 14:30:00 Test Item Value Reference Range Interpretation Comments HEPATITIS B CORE IGM ANTIBODY Nonreactive Nonreactive (BEAKER) (test code = 645) Lump Room Supervisor ID - ROSIANGHEPATITIS C [id number] 14:30:00 Test Item Value Reference Range Interpretation Comments HEPATITIS C ANTIBODY (GUALBERTOAKER) Nonreactive Nonreactive (test code = 367) Lump Room Supervisor ID - WILMERIV-1 ANTIGEN WITH HIV-1/2 [id number] 14:30:00 Test Item Value Reference Range Interpretation Comments HIV-1 ANTIGEN WITH HIV 1\T\2 Nonreactive Nonreactive ANTIBODY (2) (BEAKER) (test code = 2586) Lump Room Supervisor ID - NOELGAntithrombin [id number] 14:04:00 Test Item Value Reference Range Interpretation Comments Antithrombin III (test code = 56707-7) 94.0 % 80-120 Lab Interpretation (test code = Normal 16326-3) [facility] CampusANTITHROMBIN [id number] 14:04:00 Test Item Value Reference Range Interpretation Comments ANTITHROMBIN III ACTIVITY (BEAKER) 94.0 % 80.0-120.0 (test code = 711) Direct AHG (JOHANN)/Direct [id number] 13:47:00 Test Item Value Reference Range Interpretation Comments Direct AHG-IGG (test code = 1006-6) NEGATIVE Direct AHG-C3B, C3D (test code = NEGATVIE 1003-3) [facility] CampusComprehensive metabolic [id number] 13:42:00 Test Item Value Reference Range Interpretation Comments Protein, Total (test 6.9 See_Comment [Autom ated code = 2885-2) message] The system which generated this result transmit liya reference range : 6.0 - 8.3 gm/dL . The reference range was not u sed to interpret th is result as normal/abnormal . Albumin (test code = 3.9 g/dL 3.5-5 87816-8) Alkaline Phosphatase 65 U/L 40-150 (test code = 6768-6) Total Bilirubin (test 0.3 mg/dL 0.2-1.2 code = 1975-2) Sodium (test code = 140 meq/L 412-223 2830-2) Potassium (test code 4.2 meq/L 3.5-5.1 = 2823-3) Chloride (test code = 102 meq/L 98-107 2075-0) CO2 (test code = 23 meq/L 22-29 2027-9) BUN (test code = 39 mg/dL 7-21 H 3094-0) Creatinine (test code 9.59 mg/dL 0.57-1.25 H = 2160-0) Glucose (test code = 91 mg/dL 70-105 2345-7) Calcium (test code = 8.5 mg/dL 8.4-10.2 82498-9) AST (test code = 16 U/L 5-34 1920-8) ALT (test code = 11 U/L 6-55 1742-6) EGFR (test code = 6 mL/min/1.73 [place] [address]-1) NOT ACCURATE CREATININE CLEARANCE IN PREDICTING GLOMERULAR FILTRATION RATE . ESTIMATED GFR I S NOT APPLICABLE FOR DIALYSIS PATIEN RACQUEL (test code = RACQUEL) Lump Room Supervisor ID - ROSIANG Lab Interpretation Abnormal (test code = 87330-3) [facility] CampusCOMPREHENSIVE METABOLIC [id number] 13:42:00 Test Item Value Reference Range Interpretation Comments TOTAL PROTEIN 6.9 gm/dL 6.0-8.3 (BEAKER) (test code = 770) ALBUMIN (BEAKER) 3.9 g/dL 3.5-5.0 (test code = 1145) ALKALINE PHOSPHATASE 65 U/L 40-150 (BEAKER) (test code = 346) BILIRUBIN TOTAL 0.3 mg/dL 0.2-1.2 (BEAKER) (test code = 377) SODIUM (BEAKER) (test 140 meq/L 136-145 code = 381) POTASSIUM (BEAKER) 4.2 meq/L 3.5-5.1 (test code = 379) CHLORIDE (BEAKER) 102 meq/L 98-107 (test code = 382) CO2 (BEAKER) (test 23 meq/L 22-29 code = 355) BLOOD UREA NITROGEN 39 mg/dL 7-21 H (BEAKER) (test code = 354) CREATININE (BEAKER) 9.59 mg/dL 0.57-1.25 H (test code = 358) GLUCOSE RANDOM 91 mg/dL 70-105 (BEAKER) (test code = 652) CALCIUM (BEAKER) 8.5 mg/dL 8.4-10.2 (test code = 697) AST (SGOT) (BEAKER) 16 U/L 5-34 (test code = 353) ALT (SGPT) (BEAKER) 11 U/L 6-55 (test code = 347) EGFR (BEAKER) (test 6 mL/min/1.73 ESTIMAT ED GFR IS code = 1092) sq m NOT ACCURATE CREATININE CLEARANCE IN PREDICTING GLOMERULAR FILTRATION RATE . ESTIMATED GFR I S NOT APPLICABLE FOR DIALYSIS PATIEN TS. Lump Room Supervisor ID - ROSIANGGamma Glutamyl Transferase (GGT)2020-10-07 13:37:00 Test Item Value Reference Range Interpretation Comments GGT (test code = 2324-2) 21 U/L 9-64 RACQUEL (test code = RACQUEL) Lump Room Supervisor ID - ROSIANG Lab Interpretation (test Normal code = 81392-4) [facility] CampusPhosphorus2021-04-27 13:37:00 Test Item Value Reference Range Interpretation Comments Phosphorus (test code = 5.7 mg/dL 2.3-4.7 H 2777-1) RACQUEL (test code = RACQUEL) Lump Room Supervisor ID - ROSIANG Lab Interpretation (test Abnormal code = 03438-2) [facility] CampusUric [id number] 13:37:00 Test Item Value Reference Range Interpretation Comments Uric Acid (test code = 8.4 mg/dL 2.6-7.2 H 3084-1) RACQUEL (test code = RACQUEL) Lump Room Supervisor ID - ROSIANG Lab Interpretation (test Abnormal code = 85912-7) [facility] CampusPHOSPHORUS2021-04-27 13:37:00 Test Item Value Reference Range Interpretation Comments PHOSPHORUS (BEAKER) (test code = 5.7 mg/dL 2.3-4.7 H 604) Lump Room Supervisor ID - ROSIANGURIC [id number] 13:37:00 Test Item Value Reference Range Interpretation Comments URIC ACID (BEAKER) (test code = 8.4 mg/dL 2.6-7.2 H 773) Lump Room Supervisor ID - ROSIANGGAMMA GLUTAMYL TRANSFERASE (GGT)2020-10-07 13:37:00 Test Item Value Reference Range Interpretation Comments GAMMA GLUTAMYL TRANSFERASE (BEAKER) 21 U/L 9-64 (test code = 364) Lump Room Supervisor ID - ROSIANGPTH, Lywyie6257-19-06 13:36:00 Test Item Value Reference Range Interpretation Comments PTH (test code = 2731-8) 466.5 pg/mL 8.5-72.5 H RACQUEL (test code = RACQUEL) Lump Room Supervisor ID - BJ Lab Interpretation (test Abnormal code = 56750-2) [facility] CampusPTH, [id number] 13:36:00 Test Item Value Reference Range Interpretation Comments PARATHYROID HORMONE INTACT 466.5 pg/mL 8.5-72.5 H (BEAKER) (test code = 577) Lump Room Supervisor ID - NOELGPT/[id number] 13:34:00 Test Item Value Reference Interpretation Comments Range Protime (test code = 13.9 See_Comment [Autom ated 5902-2) message] The system which generated this result transmitted reference range : 11.9 - 14.2 seconds. The reference range was not used to interpret this result as normal/abnormal . INR (test code = 1.11 See_Comment [Automated 0231-6) message] The system which generated this result transmitted reference range : <=5.90. The reference range was not used to interpret this result as normal/abnormal . PTT (test code = 37.1 See_Comment H [Automated 17264-5) message] The system which generated this result transmitted reference range : 22.5 - 36.0 seconds. The reference range was not used to interpret this result as normal/abnormal . RACQUEL (test code = Effective 11/08/2018: RACQUEL) PT Reference Range ChangeNew: 11.9-14.2 Previous: 11.7-14.7 RECOMMENDED COUMADIN/WARFARIN INR THERAPY RANGESSTANDARD DOSE: 2.0-3.0 Includes: PROPHYLAXIS for venous thrombosis, systemic embolization; TREATMENT for venous thrombosis and/or pulmonary embolus.HIGH RISK: Target INR is 2.5-3.5 for patients wiht mechanical heart valves. Lab Interpretation Abnormal (test code = 34820-6) [facility] CampusPT/[id number] 13:34:00 Test Item Value Reference Range Interpretation Comments PROTIME (BEAKER) (test 13.9 seconds 11.9-14.2 code = 759) INR (BEAKER) (test 1.11 See_Comment [Automat ed code = 370) message] The sy stem which generated this result transmitted reference range : <=5.90. The reference range was not used to interpret this result as normal/abnormal . PARTIAL THROMBOPLASTIN 37.1 seconds 22.5-36.0 H TIME (BEAKER) (test code = 760) Effective 11/08/2018: PT Reference Range ChangeNew: 11.9-14.2 Previous: 11.7- 14.7RECOMMENDED COUMADIN/WARFARIN INR THERAPY RANGESSTANDARD DOSE: 2.0-3.0 Includes: PROPHYLAXIS for venous thrombosis, systemic embolization; TREATMENT for venous thrombosis and/or pulmonary embolus.HIGH RISK: Target INR is2.5-3.5 for patients wiht mechanical heart valves.Prothrombin time/[id number] 13:33:00 Test Item Value Reference Interpretation Comments Range Protime (test code = 13.9 See_Comment [Autom ated 5902-2) message] The system which generated this result transmitted reference range : 11.9 - 14.2 seconds. The reference range was not used to interpret this result as normal/abnormal . INR (test code = 1.11 See_Comment [Automated 6301-6) message] The system which generated this result transmitted reference range : <=5.90. The reference range was not used to interpret this result as normal/abnormal . RACQUEL (test code = Effective 11/08/2018: RACQUEL) PT Reference Range ChangeNew: 11.9-14.2 Previous: 11.7-14.7 RECOMMENDED COUMADIN/WARFARIN INR THERAPY RANGESSTANDARD DOSE: 2.0-3.0 Includes: PROPHYLAXIS for venous thrombosis, systemic embolization; TREATMENT for venous thrombosis and/or pulmonary embolus.HIGH RISK: Target INR is 2.5-3.5 for patients wiht mechanical heart valves. Lab Interpretation Normal (test code = 96770-4) [facility] CampusABORH, [id number] 13:33:00 Test Item Value Reference Range Interpretation Comments ABO Grouping (test code = 2588) O Rh Factor (test code = 2589) POS [facility] CampusPROTHROMBIN TIME/[id number] 13:33:00 Test Item Value Reference Range Interpretation Comments PROTIME (BEAKER) 13.9 seconds 11.9-14.2 (test code = 759) INR (BEAKER) (test 1.11 See_Comment [Automat ed message] code = 370) The system eyefactive generated this result transmitted ref erence range: <=5.90. The reference range was not used to int erpret this result as normal/abnormal . Effective 11/08/2018: PT Reference Range ChangeNew: 11.9-14.2 Previous: 11.7- 14.7RECOMMENDED COUMADIN/WARFARIN INR THERAPY RANGESSTANDARD DOSE: 2.0-3.0 Includes: PROPHYLAXIS for venous thrombosis, systemic embolization; TREATMENT for venous thrombosis and/or pulmonary embolus.HIGH RISK: Target INR is2.5-3.5 for patients wiht mechanical heart valves.CBC with platelet count + automated [id number] 13:05:00 Test Item Value Reference Range Interpretation Comments WBC (test code = 6690-2) 6.4 See_Comment [A utomated message] The system eyefactive generated this result transmitted ref erence range: 3.5 - 10 .5 K/L. The refe rence range was not u sed to interpret this result as normal/abnor mal. RBC (test code = 789-8) 2.95 See_Comment L [Au tomated message] The system eyef[employer] generated this result transmitted ref erence range: 3.93 - 5 .22 M/L. The refe rence range was not u sed to interpret this result as normal/abnor mal. MCHC (test code = 786-4) 31.4 See_Comment L [A utomated message] The system eyefactive generated this result transmitted ref erence range: 32.2 - 3 5.5 GM/DL. The refe rence range was not u sed to interpret this result as normal/abnor mal. Hematocrit (test code = 29.3 % 34.1-44.9 L 4544-3) MCV (test code = 787-2) 99.3 fL 79.4-94.8 H MCH (test code = 785-6) 31.2 pg 25.6-32.2 RDW (test code = 788-0) 14.0 % 11.7-14.4 Platelets (test code = 318 See_Comment [Aut omated message] 707-3) The system eyef[employer] generated this result transmitted ref erence range: 150 - 45 0 K/CU MM. The referen ce range was not u sed to interpret this result as normal/abnor mal. MPV (test code = 9.7 fL 9.4-12.3 82447-9) nRBC (test code = 413) 0 See_Comment [Aut omated message] The system eyef[employer] generated this result transmitted ref erence range: 0 - 0 /1 00 WBC. The refere nce range was not u sed to interpret this result as normal/abnor mal. % Neutros (test code = 65 % 429) % Lymphs (test code = 22 % 430) % Monos (test code = 8 % 431) % Eos (test code = 432) 4 % % Baso (test code = 437) 1 % # Neutros (test code = 4.16 See_Comment [Aut omated message] 670) The system eyefactive generated this result transmitted ref erence range: 1.56 - 6 .13 K/L. The refe rence range was not u sed to interpret this result as normal/abnor mal. # Lymphs (test code = 1.43 See_Comment [Auto mated message] 414) The system eyefactive generated this result transmitted ref erence range: 1.18 - 3 .74 K/L. The refe rence range was not u sed to interpret this result as normal/abnor mal. # Monos (test code = 0.48 See_Comment H [Autom ated message] 415) The system eyefactive generated this result transmitted ref erence range: 0.24 - 0 .36 K/L. The refe rence range was not u sed to interpret this result as normal/abnor mal. # Eos (test code = 416) 0.28 See_Comment [Au tomated message] The system eyefactive generated this result transmitted ref erence range: 0.04 - 0 .36 K/L. The refe rence range was not u sed to interpret this result as normal/abnor mal. # Baso (test code = 417) 0.04 See_Comment [A utomated message] The system eyefactive generated this result transmitted ref erence range: 0.01 - 0 .08 K/L. The refe rence range was not u sed to interpret this result as normal/abnor mal. Immature 0 % 0-1 Granulocytes-Relative (test code = 2801) Lab Interpretation (test Abnormal code = 27271-7) [facility] W/PLT COUNT & AUTO [id number] 13:05:00 Test Item Value Reference Range Interpretation Comments WHITE BLOOD CELL COUNT (BEAKER) 6.4 K/ L 3.5-10.5 (test code = 775) RED BLOOD CELL COUNT (BEAKER) 2.95 M/ L 3.93-5.22 L (test code = 761) HEMOGLOBIN (BEAKER) (test code = 9.2 GM/DL 11.2-15.7 L 410) HEMATOCRIT (BEAKER) (test code = 29.3 % 34.1-44.9 L 411) MEAN CORPUSCULAR VOLUME (BEAKER) 99.3 fL 79.4-94.8 H (test code = 753) MEAN CORPUSCULAR HEMOGLOBIN 31.2 pg 25.6-32.2 (BEAKER) (test code = 751) MEAN CORPUSCULAR HEMOGLOBIN CONC 31.4 GM/DL 32.2-35.5 L (BEAKER) (test code = 752) RED CELL DISTRIBUTION WIDTH 14.0 % 11.7-14.4 (BEAKER) (test code = 412) PLATELET COUNT (BEAKER) (test 318 K/CU MM 150-450 code = 756) MEAN PLATELET VOLUME (BEAKER) 9.7 fL 9.4-12.3 (test code = 754) NUCLEATED RED BLOOD CELLS 0 /100 WBC 0-0 (BEAKER) (test code = 413) NEUTROPHILS RELATIVE PERCENT 65 % (BEAKER) (test code = 429) LYMPHOCYTES RELATIVE PERCENT 22 % (BEAKER) (test code = 430) MONOCYTES RELATIVE PERCENT 8 % (BEAKER) (test code = 431) EOSINOPHILS RELATIVE PERCENT 4 % (BEAKER) (test code = 432) BASOPHILS RELATIVE PERCENT 1 % (BEAKER) (test code = 437) NEUTROPHILS ABSOLUTE COUNT 4.16 K/ L 1.56-6.13 (BEAKER) (test code = 670) LYMPHOCYTES ABSOLUTE COUNT 1.43 K/ L 1.18-3.74 (BEAKER) (test code = 414) MONOCYTES ABSOLUTE COUNT (BEAKER) 0.48 K/ L 0.24-0.36 H (test code = 415) EOSINOPHILS ABSOLUTE COUNT 0.28 K/ L 0.04-0.36 (BEAKER) (test code = 416) BASOPHILS ABSOLUTE COUNT (BEAKER) 0.04 K/ L 0.01-0.08 (test code = 417) IMMATURE GRANULOCYTES-RELATIVE 0 % 0-1 PERCENT (BEAKER) (test code = 2801) T SPOT [id number] 14:01:00 Test Item Value Reference Range Interpretation Comments T-SPOT TB (BEAKER) (test code = Negative 1683) NEG CONTROL SPOT COUNT (BEAKER) 0 (test code = 1684) PANEL A SPOT (BEAKER) (test code = 0 1685) PANEL B SPOT (BEAKER) (test code = 0 1686) POS CONTROL SPOT CT (BEAKER) (test 0 code = 1687) SCAN RESULT (test code = 6395996) See Scanned ReportECG 12 [id number] 13:44:09Interface, External Ris In - 09/25/2020 1:44 PM CDTVentricular Rate 75 BPMAtrial Rate 75 BPMP-R Interval 154 msQRS Duration 86 msQ-T Interval 442 msQTC Calculation(Bazett) 493 msP Shaniko 73 degreesR Shaniko 83 degreesT Shaniko 64 degreesNormal sinus rhythmRight atrial enlargementProlonged QTAbnormal ECGNo previous ECGs availableConfirmed by MD Guzman Roberto ([id number]) on 09/25/2020 1:44:07 [facility], WITH [id number] 13:22:00Reason for Exam:->to assess iliac vesselsKidney Transplant Evaluation [facility] MITCH : 1985 Sex: FFINAL REPORT TECHNIQUE: Grayscale, color Doppler, and spectral Doppler ultrasound of the distal aorta and bilateral iliac arteries. INDICATION: 35-year-old woman for renal transplant evaluation. COMPARISON: None. FINDINGS: Distal abdominal aorta is patent and measures 1.7 cm. Common iliac arteries are patent and measure 1.2 cm on the right and 1.2 cm on theleft.External iliac arteries are patent and measure 0.9 cm on the right and 0.9 cm on the left.Neither internal iliac artery is clearly visualized. Normal velocities and waveforms in the distal aorta and visualized bilateral iliac arteries. Bilateral common, bilateral external, and right internal iliac veins are patent. Left internal iliac vein is not clearly visualized. IMPRESSION:Unremarkable Doppler ultrasound of the visualized bilateral iliac vessels. Signed: Cindy Wright MDReport Verified Date/Time: 09/25/2020 13:22:46 US pelvis with [id number] 13:22:00Interface, External Ris In - 09/25/2020 1:24 PM CDTFINAL REPORT TECHNIQUE: Grayscale, color Doppler, and spectral Doppler ultrasound of the distal aorta and bilateral iliac arteries. INDICATION: 35-year-old woman for renal transplant evaluation. COMPARISON: None. FINDINGS: Distal abdominal aorta is patent and measures 1.7 cm. Common iliac arteries are patent and measure 1.2 cm on the right and 1.2 cm on the left.External iliac arteries are patent and measure 0.9 cm on the right and 0.9 cm on the left.Neither internal iliac artery is clearly visualized. Normal velocities and waveforms in the distal aorta and visualized bilateral iliac arteries. Bilateral common, bilateral external, and right internal iliac veins are patent. Left internal iliac vein is not clearly visualized. IMPRESSION:Unremarkable Doppler ultrasound of the visualized bilateral iliac vessels. Signed: Cindy Wright MDReport Verified Date/Time: 09/25/2020 13:22:46 [facility]US, ABDOMINAL, [id number] 13:01:00Reason for Exam:->[facility] Trans[facility] EvaluationCH[facility] : 1985 Sex: F FINAL REPORT TECHNIQUE: Grayscale ultrasound of the abdomen. INDICATION: 35-year-old woman for renal transplant evaluation. COMPARISON: None. FINDINGS: MIDLINE VASCULATURE: Visualized inferior vena cava is patent. Main portal vein is patent. Maximum visualized aortic diameter is 2.3 cm. LIVER: Liver is normal in size and echogenicity with smooth contour. Nofocal lesion. BILIARY:Gallbladder: No gallstones or sludge. No gallbladder wall thickening, pericholecystic fluid, or distention. Reported negative sonographic Cooper sign.Common bile duct measures 0.3cm, within normal limits. No intrahepatic biliary ductal dilatation. PANCREAS: Visualized portions of the pancreas are unremarkable. SPLEEN: No splenomegaly. PERITONEUM: No free fluid. KIDNEYS: Both kidneys are mildly echogenic. Right kidney measures 7.4 x 2.7 x 4.9 cm with cortical thickness of 0.7 cm. Left kidney measures 8.1 x 4.3 x 3.6 cm with cortical thickness of 1.1 cm. No hydronephrosis. No sonographically evident mass or cyst. IMPRESSION:Mildly echogenic kidneys, consistent with medical renal disease. No sonographically evident renal mass or cyst. Signed: Cindy Wright MDReport VerifiedDate/Time: 09/25/2020 13:01:08 Electronically signed by: CINDY WRIGHT MD on 101:01 PMUS abdomen [id number] 13:01:00Interface, External Ris In - 09/25/2020 1:03 PM CDTFINAL REPORT TECHNIQUE: Grayscale ultrasound of the abdomen. INDICATION: 35-year-old woman for renal transplant evaluation. COM PARISON: None. FINDINGS: MIDLINE VASCULATURE: Visualized inferior vena cava is patent. Main portal vein is patent. Maximum visualized aortic diameter is 2.3 cm. LIVER: Liver is normal in size and echogenicity with smooth contour. No focal lesion. BILIARY:Gallbladder: No gallstones or sludge. No gallbladder wall thickening, pericholecystic fluid, or distention. Reported negative sonographic Cooper sign.Common bile duct measures 0.3 cm, within normal limits. No intrahepatic biliary ductal dilatation.PANCREAS: Visualized portions of the pancreas are unremarkable. SPLEEN: No splenomegaly. PERITONEUM:No free fluid. KIDNEYS: Both kidneys are mildly echogenic. Right kidney measures 7.4 x 2.7 x 4.9 cm with cortical thickness of 0.7 cm. Left kidney measures 8.1 x 4.3 x 3.6 cm with cortical thickness of1.1 cm. No hydronephrosis. No sonographically evident mass or cyst. IMPRESSION:Mildly echogenic kidneys, consistent with medical renal disease. No sonographically evident renal mass or cyst. Signed: Cindy Gonzalez MDReport Verified Date/Time: 09/25/2020 13:01:08 [facility] WomenLIP[facility] [id number] 12:42:00 Test Item Value Reference Range Interpretation Comments TRIGLYCERIDES (BEAKER) (test code = 78 mg/dL 540) CHOLESTEROL (BEAKER) (test code = 151 mg/dL 631) HDL CHOLESTEROL (BEAKER) (test code 44 mg/dL = 976) LDL CHOLESTEROL CALCULATED (BEAKER) 91 mg/dL (test code = 633) Triglyceride Reference Range: Low Risk <150 Borderline 150-199 High Risk 200-499 Very High Risk >=500Cholesterol Reference Range: Low Risk <200 Borderline 200-239 High Risk >240HDL Cholesterol Reference Range: Low Risk >=60 High Risk <40LDL Cholesterol Reference Range: Optimal <100 Near Optimal 100-129 Borderline 130-159 High 160-189 Very High >=190 Lump Room Supervisor ID - [id number] Echo W/Doppler(CW/PW/Color)2020-09-25 10:35:55Ejection FractionSLEH ECHO HEARTLAB MKCKROXANNA CPACSInterface, External Ris In - 09/25/2020 10:36 AM CDTTransthoracic Echocardiography Report (TTE) Demographics Patient Name MARIANA RODRIGES Dateof Study 09/25/2020 RAMONA MEYER Gender Female Visit Number [id number] Race Black Room Number OP Number Date of 1985 Referring Anderson Zamora Physician Bunny Age 35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 Mild concentric LV hypertrophy. All of the LV segments contract normally . LVEF by Mckeon's method of disk assessment is normal (> 60%) . Degree of diastolic dysfunction (LAP assessment) is inconclusive due to significant MR . At least moderate eccentric posteriorly directed mitral regurgitation. Pulmonary vein flow is consistent with increased LAP but no systolic reversal. Atrial septal position continuously bows zszc-[id number], consistent with elevated LA pressure . Xnhg-mv-scgpzjzd t ricuspid regurgitation. Estimated peak systolic PA pressure is 60-65 mmHg . Signature Findings Left Ventricle The left ventricle is chamber size (by vol index) is moderately enlarged (female - LVED vol -71-80ml/m2). Mildconcentric LV hypertrophy. All of the LV segments contract normally . LVEF by Mckeon's method of disk assessment is normal (> 60%) . Degree of diastolic dysfunction (LAP assessment) is inconclusive due to significant MR . Left Atrium LA size is severely enlarged (>48 ml/m2) . Right Ventricle The right ventricular chamber size and systolic function are within normal limits. Right Atrium RA size is mildly dilated. Atrial Septum Atrial septal position continuously bows thhp-rr-qspfz, consistent with elevated LA pressure . Aortic Valve Normal AoV structure. There is trace aortic regurgitation. Mitral Valve Mild MV leaflet thickening. At least moderate eccentric posteriorly directed mitral regurgitation.Tricuspid Valve TV structure is normal. Hksm-tn-zzgwbtwk tricuspid regurgitation. Estimated peak systolic PA pressure is 60-65 mmHg . Peak systolic pressure may be underestimated; partial TR signal. Pulm onic Valve Normal PV structure appears normal by available views. A trace of pulmonary regurgitation. Pericardium No pericardial effusion is visualized. IVC/SVC/PA/PV/Pleural The estimated RA pressure by IVC dynamics 11-15mmHg . Pulmonary vein flow is consistent with increased LAP but no systolic reversal noted. Chambers/Structures Left Atrium LA Dimension: 5.25 cm LA Area: 30.53 cm^2 LA Volume: 112.54 ml LA Vol. Index: 68 ml/m^2 Left VentricleLVIDd: 5.31 cm LVIDs: 3.49 cm LV Septum Diastolic: 1.22 cm LV PW Diastolic: 1.39 cm LV FS: 34.3 % LVEDV Mckeon's:120.06 ml LVESV Mckeon's:46.7 ml LVEDVI: 72 ml/m ^2 LVEF Mckeon's: 61.1 % LVESVI: 28 ml/m^2 LVOT Diameter: 2.01 cm Aorta Ao Root S of Johana.: 2.94 cm Doppler/Quantitative Measurements LVOT Peak Velocity: 1.46 m/s Peak Gradient: 8.49 mmHg Mean Velocity: 0.9 m/s Mean Gradient: 3.9 mmHg LVOT Diameter: 2.01 cm LVOT VTI: 26.63 cm LVOT Area: 3.17 cm^2 LVOT SV:84.46 ml LVOT CO: 6.17 l/min LVOT CI: 3.72 l/min/m^2[facility], CHEST, 2 [id number] 10:28:00Reason for Exam:->Kidney Transplant EvaluationCHI [facility] : 1985 Sex: F FINAL REPORT EXAMINATION: RAD, CHEST, 2 VIEWS INDICATION: Kidney Transplant Evaluation COMPARISON: None FINDINGS:TUBES and LINES: None. LUNGS: Lungs are well inflated. Lungs are clear. There is no evidence of pneumonia or pulmonary edema. PLEURA: No pleural effusion or pneumothorax. HEART AND MEDIASTINUM: The cardiomediastinal silhouette isprominent. BONES AND SOFT TISSUES: No acute osseous lesion. Soft tissues are unremarkable. UPPER ABDOMEN: No free air under the diaphragm. IMPRESSION: Prominent heart size. No consolidated pneumonia,pleural effusion or pneumothorax. Signed: Zina Em MDRmoses Verified Date/Time: 09/25/2020 10:28:23 Reading Location: [facility] Reading Room [address] [address] XR chest 2 views 2020-09-25 10:28:00Interface, External Ris In - 09/25/2020 10:30 AM CDTFINAL REPORT EXAMINATION: RAD, CHEST, 2 VIEWS INDICATION: Kidney Transplant Evaluation COMPARISON: None FINDINGS:TUBES and LINES: None. LUNGS: Lungs are well inflated. Lungs are clear. There is no evidence of pneumonia or pulmonary edema. PLEURA: No pleural effusion or pneumothorax. HEART AND MEDIASTINUM: Thecardiomediastinal silhouette is prominent. BONES AND SOFT TISSUES: No acute osseous lesion. Soft tissues are unremarkable. UPPER ABDOMEN: No free air under the diaphragm. IMPRESSION: Prominent heart size. No consolidated pneumonia, pleural effusion or pneumothorax. Signed: Zina Em MDReport Verified Date/Time: 09/25/2020 10:28:23 Reading Location: [facility] Reading Room [address] [place] [address] [facility] [id number] 14:34:00 Test Item Value Reference Range Interpretation Comments UR HCG QUAL (test code = HCGQLU) NEGATIVE NEGATIVE COVID 19 Asymptomatic IH [id number] 12:06:00 Test Item Value Reference Range Interpretation Comments [...] y tests. COMMENTS: If not done this admissionBASIC METABOLIC [id number] 11:25:00 Test Item Value Reference Range Interpretation Comments SODIUM (test code = NA) 136 mEq/L 134-147 N POTASSIUM (test code = 3.8 mEq/L 3.4-5.0 N K) CHLORIDE (test code = 103 mEq/L 100-108 N CL) CARBON DIOXIDE (test 26 mEq/l 21-33 N code = CO2) ANION GAP (test code = 11 0-20 N GAP) GLUCOSE (test code = 96 mg/dL 70-110 N GLU) BLOOD UREA NITROGEN 28 mg/dL 7-18 H (test code = BUN) GLOMERULAR FILTRATION 6.1 105-110 L Units of measure = RATE (test code = GFR) ml/mi n/1.73 m2 CREATININE (test code = 9.0 mg/dL 0.6-1.3 H CREAT) CALCIUM (test code = 8.3 mg/dL 8.0-10.5 N CA) PROTHROMBIN [id number] 11:22:00 Test Item Value Reference Range Interpretation Comments PROTHROMBIN TIME 12.2 SECONDS 9.3-12.9 N PATIENT (test code = PTP) INTERNATIONAL NORMAL 1.1 0.8-1.2 N TARGET RATIO (test code = INR BY IN DICATION INR) Indication INR1. Prophyl axis of venous thrombos is 2.0 - 3. 0 (orthopedic naty linda), Prophylaxis of venous thrombos is (other than hig h-risk surgery), Sandy tment of Deep Vein Thrombosis/Pulm onary Embolism, Preve ntion of systemic emb olism - Tissue heart va lves, Acute Myocardia l Infarction (to prevent systemic embo lism), Valvular heart disease, Atri al Fibrillation, Bileaflet mecha nical valve in aortic position.2. Mec hanical prosthetic valv es (high risk), 2.5 - 3.5 Presence of Lupus Anticoagu lant or Antiphospholi pid Antibodies, Pre vention of systemic e mbolism - Acute Myocard ial Infarction (t o prevent recurre nt infarct). CBC W/AUTO [id number] 11:20:00 Test Item Value Reference Range Interpretation Comments WHITE BLOOD CELL (test code = 5.3 x10 3/uL 4.5-11.0 N WBC) RED BLOOD CELL (test code = 3.72 x10 6/uL 3.54-5.02 N RBC) HEMOGLOBIN (test code = HGB) 10.9 g/dL 11.0-15.0 L HEMATOCRIT (test code = HCT) 35.1 % 33.0-45.0 N MEAN CELL VOLUME (test code = 94.4 fL 81.0-99.0 N MCV) MEAN CELL HGB (test code = MCH) 29.3 pg 27.0-33.0 N MEAN CELL HGB CONCETRATION 31.1 g/dL 33.0-37.0 L (test code = MCHC) RED CELL DISTRIBUTION WIDTH CV 16.7 % 11.5-14.5 H (test code = RDW) RED CELL DISTRIBUTION WIDTH SD 58.3 fL 37.0-54.0 H (test code = RDW-SD) PLATELET COUNT (test code = 249 x10 3/uL 150-400 N PLT) MEAN PLATELET VOLUME (test code 10.0 fL 7.0-9.0 H = MPV) NEUTROPHIL % (test code = NT%) 64.7 % 56.0-77.0 N IMMATURE GRANULOCYTE % (test 0.2 % 0.0-2.0 N code = IG%) LYMPHOCYTE % (test code = LY%) 23.4 % 14.0-32.0 N MONOCYTE % (test code = MO%) 7.9 % 4.8-9.0 N EOSINOPHIL % (test code = EO%) 3.4 % 0.3-3.7 N BASOPHIL % (test code = BA%) 0.4 % 0.0-2.0 N NUCLEATED RBC % (test code = 0.0 % 0-0 N NRBC%) NEUTROPHIL # (test code = NT#) 3.44 x10 3/uL 2.0-7.6 N IMMATURE GRANULOCYTE # (test 0.01 x10 3/uL 0.00-0.03 N code = IG#) LYMPHOCYTE # (test code = LY#) 1.24 x10 3/uL 1.0-3.8 N MONOCYTE # (test code = MO#) 0.42 x10 3/uL 0.1-0.8 N EOSINOPHIL # (test code = EO#) 0.18 x10 3/uL 0.0-0.2 N BASOPHIL # (test code = BA#) 0.02 x10 3/uL 0.0-0.2 N NUCLEATED RBC # (test code = 0.00 x10 3/uL 0.0-0.1 N NRBC#) MANUAL DIFF REQUIRED (test code NO = MDIFF) - XR CHEST 1 [id number] 11:15:00 [facility] : 1985 Sex: F FAX: Abimael Gallardo MD [phone] [place]: St: REG Name: MARIANA RODRIGES [facility] [place] : 1985 Age/S: 35/F [address] [place] [address] Unit #: [id number] Loc: [place] [address] Phys: Abimael Isaac MD Acct: [id number] Dis Date: Status: REG [facility] PHONE #: [phone] Exam Date: 06/03/2020 1052 FAX #: [phone] Reason: PRE-OP EXAMS: CPT CODE: [id number] XR CHEST 1 V 36074 EXAM: XR CHEST 1 VIEW DATE: 06/03/2020 9:40 AM : 1985; Age: 35 years y/o Female INDICATION: AVF malfunction, PRE-OP COMPARISON: March 25, 2020 TECHNIQUE: AP chest. IMPRESSION: Lines, tubes and hardware: Stable. Heart, mediastinum and lungs: Heart appears borderline enlarged. No consolidation or pleural effusion is seen. No pneumothorax. SL: [id number] at 1115 Reported and signed by: Marcy Montes D.O. CC: Abimael Isaac MD Technologist: RT Faheem(R) Trnscrd Date/Time/By: 06/03/2020 (7238) : By: [email or web address] Orig Print D/T: S: 06/03/2020 (5495) PAGE 1 Signed ReportCBC W/AUTO [id number] 11:13:00 Test Item Value Reference Range Interpretation Comments WHITE BLOOD CELL (test code = x10 3/uL 4.5-11.0 WBC) RED BLOOD CELL (test code = RBC) x10 6/uL 3.54-5.02 HEMOGLOBIN (test code = HGB) g/dL 11.0-15.0 HEMATOCRIT (test code = HCT) 35.1 % 33.0-45.0 N MEAN CELL VOLUME (test code = fL 81.0-99.0 MCV) MEAN CELL HGB (test code = MCH) pg 27.0-33.0 MEAN CELL HGB CONCETRATION (test g/dL 33.0-37.0 code = MCHC) RED CELL DISTRIBUTION WIDTH CV % 11.5-14.5 (test code = RDW) PLATELET COUNT (test code = PLT) 249 x10 3/uL 150-400 N NEUTROPHIL % (test code = NT%) % 56.0-77.0 LYMPHOCYTE % (test code = LY%) % 14.0-32.0 NEUTROPHIL # (test code = NT#) x10 3/uL 2.0-7.6 LYMPHOCYTE # (test code = LY#) x10 3/uL 1.0-3.8 MANUAL DIFF REQUIRED (test code = MDIFF) PROTHROMBIN [id number] 11:57:00 Test Item Value Reference Range Interpretation Comments PROTHROMBIN TIME 11.4 SECONDS 9.3-12.9 N PATIENT (test code = PTP) INTERNATIONAL NORMAL 1.0 0.8-1.2 N TARGET RATIO (test code = INR BY IN DICATION INR) Indication INR1. Prophyl axis of venous thrombos is 2.0 - 3. 0 (orthopedic naty linda), Prophylaxis of venous thrombos is (other than hig h-risk surgery), Sandy tment of Deep Vein Thrombosis/Pulm onary Embolism, Preve ntion of systemic emb olism - Tissue heart va lves, Acute Myocardia l Infarction (to prevent systemic embo lism), Valvular heart disease, Atri al Fibrillation, Bileaflet mecha nical valve in aortic position.2. Mec hanical prosthetic valv es (high risk), 2.5 - 3.5 Presence of Lupus Anticoagu lant or Antiphospholi pid Antibodies, Pre vention of systemic e mbolism - Acute Myocard ial Infarction (t o prevent recurre nt infarct). BASIC METABOLIC [id number] 11:39:00 Test Item Value Reference Range Interpretation [...] 9.9 mg/dL 8.0-10.5 N CA) HCG SERUM [id number] 11:23:00 Test Item Value Reference Range Interpretation Comments HCG SERUM QUAL (test code = SERUM NEGATIVE NEGATIVE HCGQL) CBC W/AUTO [id number] 11:17:00 Test Item Value Reference Range Interpretation [...] (test code NO = MDIFF) CBC W/AUTO [id number] 11:15:00 Test Item Value Reference Range Interpretation [...] code = MDIFF) - XR CHEST 1 [id number] 11:04:00 FAX: Abimael Gallardo MD [phone] [place]: St: REG Name: MARIANA RODRIGES [facility] : 1985 Age/S: 34/F [address] [place] [address] Unit#: [id number] Loc: [place] [address] Phys: Abimael Isaac MD Acct: [id number] Dis Date: Status: REG [facility] PHONE #: [phone] Exam Date: 03/25/2020 110 FAX #: [phone] Reason: PRE OP EXAMS: CPT CODE: [id number] XR CHEST 1 V 38502 PROCEDURE: CHEST SINGLE VIEW INDICATION: PRE OP;ESRD COMPARISON: March 2014 FINDINGS: TUBES AND LINES: Tunneledright hemodialysis catheter tip at the level of mid superior vena cava. CHEST: The lungs are clear. The pleural, cardiomediastinal silhouette, and bony thorax are normal. IMPRESSION: No acute findings. SL: [id number] Reported and signed by: Josesito Tolentino M.D. CC: Abimael Isaac MD Technologist: RT Faby(R) Trnscrd Date/Time/By: 03/25/2020 (5130) : By: [email or web address] Orig Print D/T: S: 03/25/2020 (6634) PAGE 1 Signed ReportCOVID 19 Asymptomatic IH [id number] 10:59:00 Test Item Value Reference Range Interpretation [...]
[2020-11-13 16:19] LABS: Basophils % 1.1 % (0-1.3); Hematocrit 30.6 % (36.0-45.0); Lymphocytes % 14.4 % (15.3-44.8); MPV 8.5 fL (7.6-11.3); RBC Red Blood Cell Count 3.33 M/uL (3.86-4.86)
[2020-11-13 16:45] LABS: Albumin 3.9 g/dL (3.4-5.0); Bilirubin Direct 0.2 mg/dL (0-0.2); Bilirubin Total 0.7 mg/dL (0.2-1.0); Magnesium 2.5 mg/dL (1.8-2.4); Potassium 3.8 mmol/L (3.5-5.1); Protein, Total 7.4 g/dL (6.4-8.2); Troponin (Emerg Dept Use Only) 0.06 ng/mL (0.0-0.045)
[2020-11-13 16:52] LABS: Protime INR 1.07
[2020-11-13] MEDS ORDERED: FENTANYL CITR 100 MCG/2 ML ONE ×2 (17:38→19:12)
--- NOTE | 2020-11-13 17:41 | RAD REPORT ---
EXAM DESCRIPTION: RAD - Chest Single View - 11/13/2020 4:42 pm CLINICAL HISTORY: CHEST PAIN Chest pain. COMPARISON: Chest Single View dated 11/22/2019; Abdomen 1 View (KUB) dated 11/21/2019; Chest Single Vi ew dated 11/19/2019; Abdomen 1 View (KUB) dated 09/27/2019 FINDINGS: Portable technique limits examination quality. Mild interstitial pulmonary edema. The heart is moderately prominent size. No displaced fractures. IMPRESSION: Mild CHF versus volume overload.
[2020-11-13] MEDS ORDERED: HYDRALAZINE HCL 20 MG/ML VIAL ONE ×2 (17:48→18:35)
[2020-11-13] MEDS ORDERED: PROMETHAZINE INJ 25 MG/ML AMP ONE ×2 (18:34→18:51)
[2020-11-13] MEDS ORDERED: NITROGLYCERIN/D5W 50 MG/250 ML BTL IV ONE (18:45)
[2020-11-13] MEDS ORDERED: ONDANSETRON 4 MG/2 ML VIAL ONE (20:17)
--- NOTE | 2020-11-13 20:35 | RAD REPORT ---
EXAM DESCRIPTION: CT - Abdomen Pelvis Wo Contrast - 11/13/2020 8:20 pm CLINICAL HISTORY: Abdominal pain. ABD PAIN COMPARISON: Abdomen Pelvis Wo Contrast dated 11/21/2019 TECHNIQUE: CT imaging of the abdomen and pelvis was performed without contrast. Solid organ, bowel a nd vascular assessment is limited due to lack of IV and oral contrast. All CT scans are performed using dose optimization technique as appropriate and may include automated exposure control or mA/KV adjustment according to patient size. FINDINGS: Mild ground-glass opacities in the lung bases.Moderate cardiomegaly. The liver, spleen, pancreas, adrenal glands and kidneys are within normal limits for a limited non-co ntrast examination. No bowel obstruction, free air, free fluid or abscess. Moderate stool is present throughout the colon . The appendix is normal. Small amount of free fluid in the pelvis. The osseous structures are within normal limits. IMPRESSION: Moderate cardiomegaly with mild interstitial edema in the lung bases. Moderate stool retained in the colon. A limited non-contrast examination was performed as detailed.
--- NOTE | 2020-11-13 20:39 | EDPHYS ---
Physician Documentation [facility] Name: Nely Quinones Age: 35 yrs Sex: Female : 1985 Arrival Date: 11/13/2020 Time: 15:23 Bed 7 Private MD: ED Physician Rohan Sosa HPI: 11/13 17:26 This 35 yrs old Black Female presents to ER via Ambulatory with complaints of Chest jr8 Pressure, missed dialysis. 17:26 The patient or guardian reports chest pain that is located primarily in the substernal jr8 area. The pain radiates to the left arm. Associated signs and symptoms: Pertinent positives: shortness of breath. The chest pain is described as a pressure. Duration: The patient or guardian reports a single episode, that is still ongoing. The patient has experienced similar episodes in the past, a few times. The patient has not recently seen a physician. Patient stated that she has missed 1 week of dialysis. Now having increased abdominal swelling, elevated BP, and chest pressure . CIRCLE EDGER: 15:49 LMP N/A - Irregular menses jl7 Historical: - Allergies: 15:49 No Known Allergies; jl7 - PMHx: 15:49 DIALYSIS MWF; Hypertension; jl7 - PSHx: 15:49 ; jl7 - Immunization history:: Adult Immunizations up to date, Client reports having NOT received the Covid vaccine. - Social history:: Smoking status: Patient reports the use of cigarette tobacco products, denies chronic smoking, but will smoke occasionally. ROS: 17:26 Eyes: Negative for injury, pain, redness, and discharge, ENT: Negative for injury, jr8 pain, and discharge, Neck: Negative for injury, pain, and swelling, Back: Negative for injury and pain, MS/Extremity: Negative for injury and deformity, Skin: Negative for injury, rash, and discoloration, Neuro: Negative for headache, weakness, numbness, tingling, and seizure. 17:26 Cardiovascular: Positive for chest pain. 17:26 Respiratory: Positive for shortness of breath. 17:26 Abdomen/GI: Positive for abdominal pain. Exam: 17:26 Eyes: Pupils equal round and reactive to light, extra-ocular motions intact. Lids and jr8 lashes normal. Conjunctiva and sclera are non-icteric and not injected. Cornea within normal limits. Periorbital areas with no swelling, redness, or edema. ENT: Nares patent. No nasal discharge, no septal abnormalities noted. Tympanic membranes are normal and external auditory canals are clear. Oropharynx with no redness, swelling, or masses, exudates, or evidence of obstruction, uvula midline. Mucous membranes moist. Neck: Trachea midline, no thyromegaly or masses palpated, and no cervical lymphadenopathy. Supple, full range of motion without nuchal rigidity, or vertebral point tenderness. No Meningismus. Cardiovascular: Regular rate and rhythm with a normal S1 and S2. No gallops, murmurs, or rubs. Normal PMI, no JVD. No pulse deficits. Back: No spinal tenderness. No costovertebral tenderness. Full range of motion. Skin: Warm, dry with normal turgor. Normal color with no rashes, no lesions, and no evidence of cellulitis. MS/ Extremity: Pulses equal, no cyanosis. Neurovascular intact. Full, normal range of motion. Neuro: Awake and alert, GCS 15, oriented to person, place, time, and situation. Cranial nerves II-XII grossly intact. Motor strength 5/5 in all extremities. Sensory grossly intact. 17:26 Respiratory: the patient does not display signs of respiratory distress, Respirations: tachypnea, that is mild, Breath sounds: are clear throughout, no bronchial sounds, no decreased breath sounds, no rales, rhonchi, no stridor, no wheezing. 17:26 Abdomen/GI: Inspection: distension, that is mild, Bowel sounds: active, all quadrants, Palpation: abdomen is soft and non-tender, in all quadrants. Vital Signs: 15:45 BP 216 / 131; Pulse 93; Resp 26 S; Temp 99.5(O); Pulse Ox 100% on R/A; Pain 10/10; jl7 17:25 BP 215 / 146; Pulse 92; Resp 23; Pulse Ox 100% on R/A; tr6 18:00 BP 228 / 107; Pulse 103; Resp 20; tr6 18:38 BP 192 / 126; Pulse 109; Resp 25; Pulse Ox 100% on R/A; tr6 19:22 BP 181 / 107; Pulse 102; Resp 20; Pulse Ox 100% on R/A; ak2 21:28 BP 175 / 104; Pulse 97; Resp 22; Pulse Ox 98% on R/A; ak2 22:14 BP 175 / 106; Pulse 93; Resp 20; Temp 98.7; Pulse Ox 98% on R/A; ak2 MDM: 16:05 Patient medically screened. 8 17:45 Data reviewed: vital signs, nurses notes, lab test result(s), EKG, radiologic studies, jr8 plain films. Data interpreted: Pulse oximetry: on room air is 100 %. Interpretation: normal. Counseling: I had a detailed discussion with the patient and/or guardian regarding: the historical points, exam findings, and any diagnostic results supporting the discharge/admit diagnosis, lab results, radiology results, the need for further work-up and treatment in the hospital. 20:52 ED course: Patient continues to have chest pain with vomiting even after antiemetics, jr8 pain meds, and nitro drip. Continues to still be hypertensive as well. Called Dr. Monge again and updated him. He is in agreement that we should do a dissection protocol on her and then dialysis. Dialysis team has been called and is coming out now. 11/13 15:51 Order name: Basic Metabolic Panel; Complete Time: 16:50 [facility] 11/13 15:51 Order name: CBC with Diff; Complete Time: 16:39 [facility] 11/13 15:51 Order name: LFT's; Complete Time: 16:50 [facility] 11/13 15:51 Order name: Magnesium; Complete Time: 16:50 [facility] 11/13 15:51 Order name: NT PRO-BNP; Complete Time: 16:50 [facility] 11/13 15:51 Order name: PT-INR; Complete Time: 17:13 [facility] 11/13 15:51 Order name: Troponin (emerg Dept Use Only); Complete Time: 16:50 [facility] 11/13 17:30 Order name: COVID-19 : Document "Date of Symptom Onset" if Symptomatic. [facility] 11/13 18:52 Order name: SARS-COV-2 RT PCR; Complete Time: 18:53 [facility] 11/13 18:53 Order name: Troponin (emerg Dept Use Only) [facility] 11/13 18:55 Order name: Troponin (Emerg Dept Use Only); Complete Time: 19:49 [facility] 11/14 05:07 Order name: CBC with Automated Diff; Complete Time: 08:58 EDMS 11/14 05:24 Order name: Comprehensive Metabolic Panel; Complete Time: 08:58 [facility]MS 11/13 15:51 Order name: XRAY Chest (1 view); Complete Time: 17:45 jr8 11/13 19:54 Order name: CT Abd/Pelvis - Without Contrast; Complete Time: 20:38 jr8 11/13 20:47 Order name: CT Aorta for Dissection jr11/14 05:24 Order name: Phosphorus; Complete Time: 08:58 EDMS 11/14 05:24 Order name: Magnesium; Complete Time: 08:58 EDMS 11/14 05:33 Order name: Troponin I; Complete Time: 08:58 EDMS 11/14 05:33 Order name: NT PRO-BNP; Complete Time: 08:58 [facility]MS 11/13 15:51 Order name: EKG; Complete Time: 15:52 jr8 11/13 15:51 Order name: Cardiac monitoring; Complete Time: 16:19 jr8 11/13 15:51 Order name: EKG - Nurse/Tech; Complete Time: 16:19 jr8 11/13 15:51 Order name: IV Saline Lock; Complete Time: 16:04 8 11/13 15:51 Order name: Labs collected and sent; Complete Time: 16:04 jr8 11/13 15:51 Order name: O2 Per Protocol; Complete Time: 16:04 jr8 11/13 15:51 Order name: O2 Sat Monitoring; Complete Time: 16:05 jr8 11/13 18:53 Order name: EKG; Complete Time: 18:55 jr8 11/13 18:53 Order name: EKG - Nurse/Tech; Complete Time: 18:53 jr8 11/14 01:27 Order name: CONS Physician Consult EDMS Administered Medications: 17:22 CANCELLED (Physician Discretion): Nitro Drip - (Nitroglycerin 50 mg, D5W 250 ml) IV at jr8 5 mcg/min continuous; titrate until desired hemodynamic response. 17:24 Drug: fentaNYL (PF) 50 mcg Route: IVP; Site: right antecubital; tr6 17:34 Drug: hydrALAZINE 10 mg Route: IVP; Site: right antecubital; tr6 18:25 Follow up: Response: No adverse reaction tr6 18:10 Drug: hydrALAZINE 10 mg Route: IVP; Site: right antecubital; tr6 18:10 Drug: Phenergan (promethazine) 12.5 mg Route: IVP; Site: right antecubital; tr6 18:30 Drug: Nitro Drip - (Nitroglycerin 50 mg, D5W 250 ml) Route: IV; Rate: 5 mcg/min; Site: tr6 right antecubital; 18:33 Drug: Phenergan (promethazine) 12.5 mg Route: IVP; Site: right antecubital; em 18:40 Drug: fentaNYL (PF) 50 mcg Route: IVP; Site: right antecubital; tr6 20:02 Drug: Zofran (Ondansetron) 4 mg Route: IVP; Site: right antecubital; ak2 11/14 00:04 Drug: hydrALAZINE 10 mg Route: IVP; Site: right antecubital; ak2 Disposition: 18:52 Co-signature as Attending Physician, Rohan Sosa MD I agree with the assessment and kdr plan of care. Disposition: 11/13/20 20:39 Hospitalization ordered by [facility] for Inpatient Admission. Preliminary diagnosis are Hypertensive Emergency, Chest pain, unspecified, Chronic kidney disease (CKD). - Bed requested for Telemetry/MedSurg (Inpatient). - Status is Inpatient Admission. ld1 - Condition is Fair. - Problem is new. - Symptoms have improved. Signatures: Dispatcher [employer] EDRI Camille Hernández RN RN kl Webb, Martha, RN RN Rohan Sosa MD MD kdr Munoz, Edgar, RN RN em Andreas Sanders PA PA jr8 Tarik Shepherd RN RN jl7 Mouna Joseph RN RN ld1 Windy Juarez RN RN tr6 Bernard Ybarra ak2 Corrections: (The following items were deleted from the chart) 11/13 17:22 17:17 Nitro Drip - (Nitroglycerin 50 mg, D5W 250 ml) IV at 5 mcg/min continuous; jr8 titrate until desired hemodynamic response. ordered. jr8 17:53 17:30 CORONAVIRUS ordered. EDRI EDMS 20:47 20:39 Hospitalization Ordered by [facility] for Inpatient Admission. Preliminary mw diagnosis is Hypertensive Emergency; Chest pain, unspecified; Chronic kidney disease (CKD). Bed requested for Intensive Care Unit. Status is Inpatient Admission. Condition is Fair. Problem is new. Symptoms have improved. jr8 11/14 08:27 11/13 20:47 11/13/2020 20:39 Hospitalization Ordered by [facility] for Inpatient kl Admission. Preliminary diagnosis is Hypertensive Emergency; Chest pain, unspecified; Chronic kidney disease (CKD). Bed [facility] ER HOLD. Status is Inpatient Admission. Condition is Fair. Problem is new. Symptoms have improved. mw 11/14 09:41 08:27 11/13/2020 20:39 Hospitalization Ordered by [facility] for Inpatient ld1 Admission. Preliminary diagnosis is Hypertensive Emergency; Chest pain, unspecified; Chronic kidney disease (CKD). Bed requested for Telemetry/MedSurg (Inpatient). Status is Inpatient Admission. Condition is Fair. Problem is new. Symptoms have improved. kl
--- NOTE | 2020-11-13 20:39 | ER ---
Nurse's Notes [facility] Name: Nely Quinones Age: 35 yrs Sex: Female : 1985 Arrival Date: 11/13/2020 Time: 15:23 Bed 7 Private MD: Diagnosis: Hypertensive Emergency;Chest pain, unspecified;Chronic kidney disease (CKD) Presentation: 11/13 15:45 Chief complaint: Patient states: Dialysis M-W-F, missed Tuesday and Tuesday, reports jl7 SOB and chest pressure x 1 day. Coronavirus screen: Client denies travel out of the [place] in the last 14 days. At this time, the client does not indicate any symptoms associated with coronavirus-19. Ebola Screen: No symptoms or risks identified at this time. Initial Sepsis Screen: Does the patient meet any 2 criteria? No. Patient's initial sepsis screen is negative. Does the patient have a suspected source of infection? No. Patient's initial sepsis screen is negative. Risk Assessment: Do you want to hurt yourself or someone else? Patient reports no desire to harm self or others. Onset of symptoms was November 12, 2020. Care prior to arrival: None. 15:45 Method Of Arrival: Ambulatory jl7 15:45 Acuity: LORENA 2 jl7 Triage Assessment: 18:02 General: Appears. 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 - Social history:: Smoking status: Patient reports the use of cigarette tobacco products, denies chronic smoking, but will smoke occasionally. Screenin:02 Abuse screen: Denies threats or abuse. Denies injuries from another. Nutritional tr6 screening: No deficits noted. Tuberculosis screening: No symptoms or risk factors identified. Fall Risk None identified. Assessment: 16:00 General: Appears distressed, uncomfortable, Behavior is calm, cooperative, appropriate tr6 for age. Pain: Complains of pain in c/o chest pain Pain does not radiate. Pain began gradually. Neuro: No deficits noted. Cardiovascular: Rhythm is sinus tachycardia. Respiratory: Reports shortness of breath at rest. GI: Reports nausea. : No deficits noted. EENT: No deficits noted. Derm: No deficits noted. Musculoskeletal: No deficits noted. 18:54 Reassessment: pt actively vomiting. ANH Sanders at bedside to assess pt. orders placed. tr6 pending repeat trop results. 22:32 General: kinesiology internship here, pt to dialysis. ak2 11/14 08:46 Reassessment: Tried to call report. Staff was busy. Waiting application penetration tester back from nurse. ld1 Vital Signs: 11/13 15:45 BP 216 / 131; Pulse 93; Resp 26 S; Temp 99.5(O); Pulse Ox 100% on R/A; Pain 10/10; jl7 17:25 BP 215 / 146; Pulse 92; Resp 23; Pulse Ox 100% on R/A; tr6 18:00 BP 228 / 107; Pulse 103; Resp 20; tr6 18:38 BP 192 / 126; Pulse 109; Resp 25; Pulse Ox 100% on R/A; tr6 19:22 BP 181 / 107; Pulse 102; Resp 20; Pulse Ox 100% on R/A; ak2 21:28 BP 175 / 104; Pulse 97; Resp 22; Pulse Ox 98% on R/A; ak2 22:14 BP 175 / 106; Pulse 93; Resp 20; Temp 98.7; Pulse Ox 98% on R/A; ak2 ED Course: 15:23 Patient arrived in ED. am2 15:48 Triage completed. jl7 15:49 Arm band placed on right wrist. jl7 15:51 Andreas Sanders PA is PHCP. jr8 15:51 Rohan Sosa MD is Attending Physician. jr8 16:04 Windy Juarez, CHELA is Primary Nurse. tr6 16:05 Inserted saline lock: 20 gauge in right antecubital area, using aseptic technique. tr6 Blood collected. 16:43 XRAY Chest (1 view) In Process Unspecified. EDMS 18:02 Patient has correct armband on for positive identification. Placed in gown. Bed in low tr6 position. Call light in reach. Side rails up X2. 18:02 No provider procedures requiring assistance completed. Inserted. tr6 18:45 Patient maintains SpO2 saturation greater than 95% on room air. tr6 20:20 CT Abd/Pelvis - Without Contrast In Process Unspecified. EDMS 20:38 [facility] is Hospitalizing Provider. jr8 21:25 CT Aorta for Dissection In Process Unspecified. EDMS 11/14 09:40 vehicle monitor technician on. Pulse ox on. NIBP on. ld1 09:40 Patient admitted, IV remains in place. intact. ld1 Administered Medications: 11/13 17:22 CANCELLED (Physician Discretion): Nitro Drip - (Nitroglycerin 50 mg, D5W 250 ml) IV at jr8 5 mcg/min continuous; titrate until desired hemodynamic response. 17:24 Drug: fentaNYL (PF) 50 mcg Route: IVP; Site: right antecubital; tr6 17:34 Drug: hydrALAZINE 10 mg Route: IVP; Site: right antecubital; tr6 18:25 Follow up: Response: No adverse reaction tr6 18:10 Drug: hydrALAZINE 10 mg Route: IVP; Site: right antecubital; tr6 18:10 Drug: Phenergan (promethazine) 12.5 mg Route: IVP; Site: right antecubital; tr6 18:30 Drug: Nitro Drip - (Nitroglycerin 50 mg, D5W 250 ml) Route: IV; Rate: 5 mcg/min; Site: tr6 right antecubital; 18:33 Drug: Phenergan (promethazine) 12.5 mg Route: IVP; Site: right antecubital; em 18:40 Drug: fentaNYL (PF) 50 mcg Route: IVP; Site: right antecubital; tr6 20:02 Drug: Zofran (Ondansetron) 4 mg Route: IVP; Site: right antecubital; ak2 11/14 00:04 Drug: hydrALAZINE 10 mg Route: IVP; Site: right antecubital; ak2 Outcome: 11/13 20:39 Decision to Hospitalize by Provider. jr8 11/14 09:39 Admitted to Med/surg accompanied by nurse, via wheelchair, room 215, with chart, Report ld1 called to CHELA Dimas. Condition: stable Instructed on the need for admit. 09:41 Patient left the ED. ld1 Signatures: Dispatcher [employer] EDMS Farooq Alonso, RN RN em Andreas Sanders PA PA jr8 Tarik Shepherd RN RN jl7 Emily Abernathy am2 Mouna Joseph RN RN ld1 Windy Juarez RN RN tr6 Bernard Ybarra
[2020-11-13] MEDS ORDERED: NA CHLORIDE 0.9% 1,000 ML IV PRN (21:34)
[2020-11-13] MEDS ORDERED: MANNITOL 25% 12.5 GM/50 ML VIAL IV PRN (21:34)
[2020-11-13] MEDS ORDERED: ALBUMIN HUMAN 25% 50 ML IV SCH (22:00)
[2020-11-14] MEDS ORDERED: HYDRALAZINE HCL 20 MG/ML VIAL ONE ×2 (00:11→05:02)
[2020-11-14] MEDS ORDERED: FENTANYL CITR 100 MCG/2 ML IV ONE ×2 (01:21→01:33)
[2020-11-14] MEDS ORDERED: FENTANYL CITR 100 MCG/2 ML ONE (01:30)
[2020-11-14] MEDS ORDERED: HYDRALAZINE HCL 20 MG/ML VIAL IV PRN (02:30)
[2020-11-14] MEDS ORDERED: FENTANYL CITR 100 MCG/2 ML IV PRN (02:30)
[2020-11-14] MEDS ORDERED: ONDANSETRON 4 MG/2 ML VIAL IV PRN (02:30)
[2020-11-14 02:37] VITALS: BMI 26.5
[2020-11-14] MEDS ORDERED: MORPHINE 2 MG/ML SYR IV ONE (04:45)
--- NOTE | 2020-11-14 05:00 | P.HP ---
Certification for Inpatient Patient admitted to: Inpatient With expected LOS: >2 Midnights Patient will require the following post-hospital care: None Practitioner: I am a practitioner with admitting privileges, knowledge of patient current condition, hospital course, and medical plan of care. Services: Services provided to patient in accordance with Admission requirements found in Title 42 Section 412.3 of the Code of Federal Regulations Patient History Date of Service: 11/14/20 Primary Care Provider: Saleem Reason for admission: missed dialysis History of Present Illness: Ms. Quinones is a 35 yo F with HTN and ESRD on HD MWF here today after missing two days of dialysis due to car trouble. She reports suffocating SOB, chest pain with movement and abdominal pain beginning yesterday. She said she has had these symptoms before. BUN 71 , Cr 8.14, GFR 7. Trop 0.06. BNP 06818. Nephrology was contacted and emergent dialysis was begun. Allergies No Known Allergies Allergy (Verified 11/19/19 21:40) Home Medications: Cholecalciferol (Vitamin D3) [Vitamin D 5,000 IU Cap*] 5,000 units PO DAILY 11/19/19 Doxazosin [Cardura*] 2 mg PO BID 11/19/19 calcitrioL [Rocaltrol] 2 tab PO DAILY 11/19/19 Hydrocodone 5/APAP 325 [[place] 5/325*] 1 tab PO Q4H PRN tab 11/23/19 Sevelamer Carbonate [Renvela*] 800 mg PO TIDWM #90 tablet 11/23/19 Carvedilol [Coreg] 25 mg PO BID #60 tablet 11/27/19 Nifedipine Xl [Procardia XL] 90 mg PO BID #180 tab 11/27/19 Ramipril [Altace] 10 mg PO DAILY #30 capsule 11/27/19 Spironolactone [Aldactone] 50 mg PO DAILY #30 tablet 11/27/19 - Past Medical/Surgical History Diabetic: No -: HTN -: ESRD on HD -: C Section -: Tubal Ligation - Family History Family History: Reviewed- Non-Contributory - Social History Smoking Status: Never smoker Alcohol use: No CD- Drugs: No Caffeine use: No Place of Residence: Home Review of Systems 10-point ROS is otherwise unremarkable Respiratory: Shortness of Breath Cardiovascular: Chest Pain Gastrointestinal: Abdominal Pain Physical Examination - Vital Signs Temperature: 99.3 F Blood Pressure: 183/104 Pulse: 95 Respirations: 20 Pulse Ox (%): 98 - Physical Exam General: Alert, Oriented x3, Cooperative, Mild distress HEENT: Atraumatic, Normocephalic, PERRLA, Mucous membr. moist/pink, EOMI, Sclerae nonicteric Neck: Supple, 2+ carotid pulse no bruit, JVD not distended, No Thyromegaly, No LAD Respiratory: Diminished, Crackles/rales Cardiovascular: Normal pulses, Normal S1 S2, No gallops, No rubs, No murmurs, Irregular heart rate/rhythm Capillary refill: <2 Seconds Gastrointestinal: Normal bowel sounds, Soft and benign, Non-distended, No ascites, No tenderness, No masses, No rebound, No guarding Musculoskeletal: No clubbing, No swelling, No contractures, No erythema, No tenderness, No warmth Integumentary: No rashes, No breakdown, No significant lesion, No tenderne ss/swelling, No erythema, No warmth, No cyanosis Neurological: Normal speech, Normal strength at 5/5 x4 extr, Normal tone, Sensation intact, Cranial nerves 3-12 intact, Normal affect Lymphatics: No axilla or inguinal lymphadenopathy - Studies Laboratory Data (last 24 hrs) 11/13/20 16:03: PT 12.7, INR 1.07 11/13/20 16:03: WBC 6.80, Hgb 10.1 L, Hct 30.6 L, Plt Count 241 11/13/20 16:03: Sodium 141, Potassium 3.8, BUN 71 H, Creatinine 8.14 H*, Glucose 96, Magnesium 2.5 H, Total Bilirubin 0.7, AST 16, ALT 25, Alkaline Phosphatase 68 Assessment and Plan - Problems (Diagnosis) (1) Missed dialysis Current Visit: Yes Status: Acute (2) HTN (hypertension) Current Visit: Yes Status: Chronic Qualifiers: Hypertension type: essential hypertension Qualified Code(s): I10 - Essential (primary) hypertension (3) Elevated troponin Current Visit: Yes Status: Acute (4) Chronic kidney disease, stage 5 Current Visit: No Status: Chronic - Plan nephrology consulted, emergent dialysis completed hydralazine q4hr for BP, reconcile and restart home medications renal diet, fluid restrict 1500cc daily O2 as needed pain management as needed trend troponins repeat stat BMP after dialysis Discharge Plan: Home Plan to discharge in: 72 Hours - Advance Directives Does patient have a Living Will: No Does patient have a Durable POA for Healthcare: No - Code Status/Comfort Care Code Status Assessed: Yes (full code) Critical Care: Yes Time Spent Managing Pts Care (In Minutes): 70
[2020-11-14] MEDS ORDERED: MORPHINE 2 MG/ML SYR ONE (05:02)
[2020-11-14 05:03] LABS: Absolute Lymphocytes (CBC) 0.6 K/uL (0.7-4.9); Basophils % 0.3 % (0-1.3); Hematocrit 32.7 % (36.0-45.0); Lymphocytes % 5.7 % (15.3-44.8); RBC Red Blood Cell Count 3.57 M/uL (3.86-4.86)
[2020-11-14 05:22] LABS: Albumin 3.8 g/dL (3.4-5.0); Bilirubin Total 0.8 mg/dL (0.2-1.0); Magnesium 2.3 mg/dL (1.8-2.4); Phosphorus 2.4 mg/dL (2.5-4.9); Potassium 4.4 mmol/L (3.5-5.1)
[2020-11-14 05:33] LABS: Troponin I 0.19 ng/mL (0.0-0.045)
[2020-11-14] MEDS ORDERED: carvediloL 6.25 MG TAB ONE (05:59)
[2020-11-14] MEDS: carvediloL 25 MG TAB PO SCH ×2 (06:06→20:50)
[2020-11-14] MEDS ORDERED: NIFEDIPINE XL 30 MG TABLET PO SCH (06:07)
[2020-11-14] MEDS: DOXAZOSIN 2 MG TAB PO SCH ×4 (06:07→20:49)
[2020-11-14] MEDS ORDERED: NIFEDIPINE XL 60 MG TABLET PO ONE (07:01)
[2020-11-14] MEDS ORDERED: ramipriL 5 MG CAP ONE (07:01)
[2020-11-14] MEDS ORDERED: DOXAZOSIN 2 MG TAB ONE (07:02)
[2020-11-14] MEDS: ramipriL 5 MG CAP PO SCH (07:11)
[2020-11-14] MEDS ORDERED: MAGNESIUM OXIDE 400 MG TAB PO ONE (07:26)
--- NOTE | 2020-11-14 07:27 | P.CNS ---
Date of Consult: 11/14/20 Reason for Consult: ESRD Requesting Physician: patrick jewell Primary Care Provider: Saleem Chief Complaint: Chest Pressure/ Dyspnea History of Present Illness: Ms. Quinones is a 35 yo F with HTN and ESRD on HD MWF here today after missing two days of dialysis due to car trouble. She reports suffocating SOB, chest pain with movement and abdominal pain beginning yesterday. She said she has had these symptoms before. 17:26 This 35 yrs old Black Female presents to ER via Ambulatory with complaints of Chest jr8 Pressure, missed dialysis. 17:26 The patient or guardian reports chest pain that is located primarily in the substernal jr8 area. The pain radiates to the left arm. Associated signs and symptoms: Pertinent positives: shortness of breath. The chest pain is described as a pressure. Duration: The patient or guardian reports a single episode, that is still ongoing. The patient has experienced similar episodes in the past, a few times. The patient has not recently seen a physician. Patient stated that she has missed 1 week of dialysis. Now having increased abdominal swelling, elevated BP, and chest pressure Allergies No Known Allergies Allergy (Verified 11/19/19 21:40) Home medications list reviewed: Yes Home Medications: Cholecalciferol (Vitamin D3) [Vitamin D 5,000 IU Cap*] 5,000 units PO DAILY 11/19/19 Doxazosin [Cardura*] 2 mg PO BID 11/19/19 calcitrioL [Rocaltrol] 2 tab PO DAILY 11/19/19 Hydrocodone 5/APAP 325 [[place] 5/325*] 1 tab PO Q4H PRN tab 11/23/19 Sevelamer Carbonate [Renvela*] 800 mg PO TIDWM #90 tablet 11/23/19 Carvedilol [Coreg] 25 mg PO BID #60 tablet 11/27/19 Nifedipine Xl [Procardia XL] 90 mg PO BID #180 tab 11/27/19 Ramipril [Altace] 10 mg PO DAILY #30 capsule 11/27/19 Spironolactone [Aldactone] 50 mg PO DAILY #30 tablet 11/27/19 - Past Medical/Surgical History Diabetic: No -: HTN -: ESRD on HD -: C Section -: Tubal Ligation - Social History Smoking Status: Current some day smoker Alcohol use: No CD- Drugs: No Caffeine use: No Place of Residence: Home Review of Systems 10-point ROS is otherwise unremarkable General: Malaise Respiratory: SOB with Excertion Cardiovascular: Chest Pain Physical Examination Temp Pulse Resp BP Pulse Ox 99.3 F 97 H 20 202/96 H 98 11/14/20 05:47 11/14/20 05:47 11/14/20 05:47 11/14/20 05:47 11/14/20 05:47 General: Oriented x3, Cooperative HEENT: Atraumatic Neck: Supple Respiratory: Clear to auscultation bilaterally Cardiovascular: No edema, Regular rate/rhythm Gastrointestinal: Soft and benign, Non-distended Musculoskeletal: No clubbing, No contractures Integumentary: No rashes, No cyanosis Neurological: Normal speech Laboratory Data (last 24 hrs) 11/13/20 16:03: PT 12.7, INR 1.07 11/13/20 16:03: WBC 6.80, Hgb 10.1 L, Hct 30.6 L, Plt Count 241 11/13/20 16:03: Sodium 141, Potassium 3.8, BUN 71 H, Creatinine 8.14 H*, Glucose 96, Magnesium 2.5 H, Total Bilirubin 0.7, AST 16, ALT 25, Alkaline Phosphatase 68 Imagings Data: EXAM DESCRIPTION: RAD - Chest Single View - 11/13/2020 4:42 pm CLINICAL HISTORY: CHEST PAIN Chest pain. COMPARISON: Chest Single View dated 11/22/2019; Abdomen 1 View (KUB) dated 11/21/2019; Chest Single View dated 11/19/2019; Abdomen 1 View (KUB) dated 09/27/2019 FINDINGS: Portable technique limits examination quality. Mild interstitial pulmonary edema. The heart is moderately prominent size. No displaced fractures. IMPRESSION: Mild CHF versus volume overload. EXAM DESCRIPTION: CT - Abdomen Pelvis Wo Contrast - 11/13/2020 8:20 pm CLINICAL HISTORY: Abdominal pain. ABD PAIN COMPARISON: Abdomen Pelvis Wo Contrast dated 11/21/2019 TECHNIQUE: CT imaging of the abdomen and pelvis was performed without contrast. Solid organ, bowel and vascular assessment is limited due to lack of IV and oral contrast. All CT scans are performed using dose optimization technique as appropriate and may include automated exposure control or mA/KV adjustment according to patient size. FINDINGS: Mild ground-glass opacities in the lung bases.Moderate cardiomegaly. The liver, spleen, pancreas, adrenal glands and kidneys are within normal limits for a limited non-contrast examination. No bowel obstruction, free air, free fluid or abscess. Moderate stool is present throughout the colon. The appendix is normal. Small amount of free fluid in the pelvis. The osseous structures are within normal limits. IMPRESSION: Moderate cardiomegaly with mild interstitial edema in the lung bases. Moderate stool retained in the colon. A limited non-contrast examination was performed as detailed. Conclusions/Impression: ESRD with poor dialysis compliance -Acute HD last night HTN Emergency due to medication non-compliance -Restart home medications including Ramipril, Nifedipine, Coreg and Doxazosin -Wean Nitro gtt as tolerated -Follow up CTA -Counseled the patient regarding the risk of stroke Diastolic CHF, A/C -Acute HD with UF -Low sodium diet Anemia in chronic illness -Monitor H&H -Retacrit PRN TERRI/ Secondary HyperPTH -Start Vitamin D -Start Renvela Thank you kindly for the consultation. Case reviewed with the Andreas Blackwell and Gibson Willoughby. Critical Care: Yes (>30min)
[2020-11-14] MEDS: SEVELAMER CARBONATE 800 MG TABLET PO SCH ×3 (08:00→17:08)
[2020-11-14] MEDS ORDERED: MAGNESIUM OXIDE 400 MG TAB ONE (08:15)
[2020-11-14] MEDS ORDERED: HEPARIN 5000 UNIT/ML 1 ML VIAL ONE ×2 (08:46→08:52)
[2020-11-14] MEDS ORDERED: HEPARIN 500 UNIT/5 ML SYR IV ONE (08:47)
[2020-11-14] MEDS: HEPARIN 5000 UNIT/ML 1 ML VIAL SQ SCH ×2 (08:50→17:08)
[2020-11-14] MEDS: NIFEDIPINE XL 90 MG TABLET PO SCH ×2 (09:00→20:50)
[2020-11-14] MEDS: VITAMIN D 5,000 UNIT CAP PO SCH (11:31)
[2020-11-14] MEDS: DOCUSATE NA 100 MG CAP PO SCH ×2 (11:32→20:50)
[2020-11-14] MEDS: CALCITROL 0.25 MCG CAP PO SCH (11:32)
[2020-11-14] MEDS: ACETAMINOPHEN 500 MG TAB PO PRN (12:13)
--- NOTE | 2020-11-14 13:45 | RAD REPORT ---
EXAM DESCRIPTION: CT - Angio Aorta For Dissection - 11/14/2020 6:38 am CLINICAL HISTORY: CHEST and abdomen PAIN. COMPARISON: CT of the abdomen and pelvis without contrast from November 21, 2019 and from today. TECHNIQUE: CTA of the chest, abdomen, and pelvis was performed following intravenous administration of iodinated contrast. Oral contrast was not administered. Axial, coronal, and sagittal reconstructio ns were created and sent to PACS. 3D reconstructions were created on an independent workstation and sent to PACS for evaluation. This exam was performed according to our departmental dose-optimization program, which includes autom ated exposure control, adjustment of the mA and/or kV according to patient size and/or use of iterati ve reconstruction technique. FINDINGS: Mild motion degradation. Vascular: No aortic aneurysm or dissection. The major visceral vessels are widely patent. No central pulmonary embolism identified, with the distal pulmonary artery branches suboptimally evaluated due t o streak artifact. Lungs and pleura: Mild motion degradation. Mild mosaic attenuation in the lower lobes. No pulmonary c onsolidation. No pleural effusion. No pneumothorax. Mediastinum and neck: No mediastinal lymphadenopathy identified by CT size criteria. Unremarkable andres earance of the thyroid gland. Cardiac: Moderate cardiomegaly, with biatrial dilation. No pericardial effusion. No thoracic aortic a neurysm or dissection. Hepatobiliary: Mild hepatomegaly, measuring 17.7 cm in length. No concerning hepatic lesion identifie d. The hepatic and portal veins are patent. The gallbladder is unremarkable. No biliary ductal dilata tion. Pancreas: Unremarkable. Spleen: Unremarkable. Gastrointestinal: No evidence of bowel obstruction or perienteric inflammation. The appendix is sera l. Small amount of fecal material throughout the colon. Adrenals: No abnormality identified in either adrenal gland. Renal: Bilateral renal cortical thinning. No concerning parenchymal abnormality in either kidney. No hydronephrosis or urolithiasis. Bladder/Reproductive: Unremarkable appearance of the urinary bladder by CT technique. Unremarkable CT appearance of the uterus and ovaries. Vascular/Lymphatics: No lymphadenopathy identified by CT size criteria. Abdominal aorta is normal in caliber. Musculoskeletal: No concerning osseous lesion identified. Transitional lumbosacral vertebral body. Fluid / peritoneum: Trace free fluid in the pelvis, likely physiologic. No free intraperitoneal air identified. IMPRESSION 1. No aortic aneurysm or dissection. No central pulmonary embolism. 2. Mild mosaic attenuation in the lower lobes, nonspecific. Correlate for mild pulmonary edema, yohan vishal chronic small airways or small vessel disease. 3. Moderate cardiomegaly. 4. Mild hepatomegaly. 5. Bilateral renal cortical thinning. Electronically signed by: Rosalva Olivas MD 11/13/2020 9:49 PM CDT Due to temporary technical issues with the PACS/Fluency reporting system, reports are being signed by the in house radiologists without review as a courtesy to insure prompt reporting. The interpreting radiologist is fully responsible for the content of the report.
[2020-11-14] MEDS ORDERED: HYDROCODONE/APAP 5/325 MG TAB PO PRN (19:30)
--- NOTE | 2020-11-14 19:41 | P.PN ---
Date of Service: 11/14/20 Patient currently has no complain. Status post hemodialysis earlier this morning. Blood pressure remains severely elevated. Will keep 1 more day for another dialysis. Hopefully this will help bring his blood pressure down.
[2020-11-14] MEDS: NEPRO SHAKE 237 ML CAN PO SCH (20:51)
[2020-11-14] MEDS: MORPHINE 4 MG/ML SYR IV PRN (21:30)
[2020-11-15] MEDS: HEPARIN 5000 UNIT/ML 1 ML VIAL SQ SCH ×3 (00:55→16:48)
[2020-11-15] MEDS: ACETAMINOPHEN 500 MG TAB PO PRN (01:05)
[2020-11-15] MEDS: MORPHINE 4 MG/ML SYR IV PRN ×2 (04:18→12:10)
[2020-11-15 04:41] LABS: Urine Appearance CLEAR (Clear); Urine Bilirubin NEGATIVE (Negative); Urine Blood NEGATIVE (Negative); Urine Color YELLOW (Yellow); Urine Glucose NEGATIVE (Negative); Urine Protein 2+ (Negative); Urine Specific Gravity 1.015 (1.005-1.030); Urine Urobilinogen 0.2 mg/dL (0.2-1.0); Urine pH 7.5 (5.0-7.0)
[2020-11-15 04:49] LABS: Urine Microscopic Reflex ORDER UMIC
[2020-11-15 04:57] LABS: Urine Bacteria 20-50 /HPF (<20); Urine RBC <5 /HPF (NONE SEEN)
[2020-11-15 05:53] LABS: Absolute Lymphocytes (CBC) 1.4 K/uL (0.7-4.9); Basophils % 1.5 % (0-1.3); Hematocrit 32.5 % (36.0-45.0); Lymphocytes % 28.5 % (15.3-44.8); MPV 8.8 fL (7.6-11.3); RBC Red Blood Cell Count 3.56 M/uL (3.86-4.86)
[2020-11-15 06:10] LABS: Bilirubin Total 0.4 mg/dL (0.2-1.0); Magnesium 2.7 mg/dL (1.8-2.4); Phosphorus 3.6 mg/dL (2.5-4.9); Potassium 4.1 mmol/L (3.5-5.1); Protein, Total 6.6 g/dL (6.4-8.2)
[2020-11-15] MEDS: CALCITROL 0.25 MCG CAP PO SCH (08:58)
[2020-11-15] MEDS: DOCUSATE NA 100 MG CAP PO SCH (08:58)
[2020-11-15] MEDS: SEVELAMER CARBONATE 800 MG TABLET PO SCH ×3 (08:58→16:46)
[2020-11-15] MEDS: VITAMIN D 5,000 UNIT CAP PO SCH (08:59)
[2020-11-15] MEDS: NEPRO SHAKE 237 ML CAN PO SCH (08:59)
[2020-11-15] MEDS: ramipriL 5 MG CAP PO SCH ×2 (08:59→16:47)
[2020-11-15] MEDS: carvediloL 25 MG TAB PO SCH ×2 (09:00→16:48)
[2020-11-15] MEDS: NIFEDIPINE XL 90 MG TABLET PO SCH ×2 (09:00→16:46)
[2020-11-15] MEDS: DOXAZOSIN 2 MG TAB PO SCH ×2 (09:00→16:47)
--- NOTE | 2020-11-15 09:33 | P.PN ---
Date of Service: 11/15/20 Vital Signs Temp Pulse Resp BP Pulse Ox 98.4 F 67 16 143/79 H 97 11/15/20 08:00 11/15/20 09:00 11/15/20 08:00 11/15/20 09:00 11/15/20 08:00 Medications Acetaminophen (Acetaminophen 500 Mg Tab) 500 mg PO Q4HP PRN PRN Reason: Pain scale 2-4 (Mild) Last Admin: 11/15/20 01:05 Dose: 500 mg Documented by: Calcitriol (Calcitrol 0.25 Mcg Cap) 0.5 mcg PO DAILY [facility] Last Admin: 11/15/20 08:58 Dose: 0.5 mcg Documented by: Carvedilol (Carvedilol 25 Mg Tab) 25 mg PO BID [facility] Last Admin: 11/15/20 09:00 Dose: Not Given Documented by: Cholecalciferol (Vitamin D 5,000 Unit Cap) 5,000 unit PO DAILY [facility] Last Admin: 11/15/20 08:59 Dose: 5,000 unit Documented by: Docusate Sodium (Docusate Na 100 Mg Cap) 100 mg PO BID [facility] Last Admin: 11/15/20 08:58 Dose: Not Given Documented by: Doxazosin Mesylate (Doxazosin 2 Mg Tab) 4 mg PO BID [facility] Last Admin: 11/15/20 09:00 Dose: Not Given Documented by: Enteral Nutritional Formula (Nepro Shake 237 Ml Can) 237 ml PO BID [facility] Last Admin: 11/15/20 08:59 Dose: 237 ml Documented by: Heparin Sodium (Porcine) (Heparin 1,000 Unit/Ml Vial) 6,000 unit IV EVERY HD PRN PRN Reason: AFTER EACH Heparin Sodium (Porcine) (Heparin 5000 Unit/Ml 1 Ml Vial) 5,000 unit SQ Q8HR [facility] Last Admin: 11/15/20 09:00 Dose: 5,000 unit Documented by: Hydralazine HCl (Hydralazine Hcl 20 Mg/Ml Vial) 10 mg IV Q4HP PRN PRN Reason: Titrate to SBP (MUST DEFINE) Last Admin: 11/14/20 04:46 Dose: 10 mg Documented by: Albumin Human (Albumin 25%) 50 mls @ 100 mls/hr IV EVERY HD [facility] Mannitol (Mannitol 25% 12.5 Gm/50 Ml Vial) 12.5 gm IV EVERY HD PRN PRN Reason: Titrate to SBP (MUST DEFINE) Morphine Sulfate (Morphine 4 Mg/Ml Syr) 4 mg IV Q6H PRN PRN Reason: Pain scale 5-7 (Moderate) Last Admin: 11/15/20 04:18 Dose: 4 mg Documented by: Nifedipine (Nifedipine Xl 90 Mg Tablet) 90 mg PO BID [facility] Last Admin: 11/15/20 09:00 Dose: Not Given Documented by: Ondansetron HCl (Ondansetron 4 Mg/2 Ml Vial) 4 mg IV Q6HP PRN PRN Reason: NAUSEA / VOMITING Ramipril (Ramipril 5 Mg Cap) 10 mg PO DAILY [facility] Last Admin: 11/15/20 08:59 Dose: Not Given Documented by: Sevelamer Carbonate (Sevelamer Carbonate 800 Mg Tablet) 800 mg PO TIDWM [facility] Last Admin: 11/15/20 08:58 Dose: 800 mg Documented by: Sodium Chloride (Flush Normal Saline 10 Ml) 10 ml IV BID [facility] Last Admin: 11/15/20 08:59 Dose: 10 ml Documented by: Assessment/ Plan: Lang Path Therapist Feeling much better today. +Appetite No acute events overnight. Vitals, medications, blood work and imaging reviewed in the chart. General: Oriented x3, Cooperative HEENT: Atraumatic Neck: Supple Respiratory: Clear to auscultation bilaterally Cardiovascular: No edema, Regular rate/rhythm Gastrointestinal: Soft and benign, Non-distended Musculoskeletal: No clubbing, No contractures Integumentary: No rashes, No cyanosis Neurological: Normal speech Laboratory Data (last 24 hrs) 11/13/20 16:03: PT 12.7, INR 1.07 11/13/20 16:03: WBC 6.80, Hgb 10.1 L, Hct 30.6 L, Plt Count 241 11/13/20 16:03: Sodium 141, Potassium 3.8, BUN 71 H, Creatinine 8.14 H*, Glucose 96, Magnesium 2.5 H, Total Bilirubin 0.7, AST 16, ALT 25, Alkaline Phosphatase 68 Imagings Data: EXAM DESCRIPTION: RAD - Chest Single View - 11/13/2020 4:42 pm CLINICAL HISTORY: CHEST PAIN Chest pain. COMPARISON: Chest Single View dated 11/22/2019; Abdomen 1 View (KUB) dated 11/21/2019; Chest Single View dated 11/19/2019; Abdomen 1 View (KUB) dated 09/27/2019 FINDINGS: Portable technique limits examination quality. Mild interstitial pulmonary edema. The heart is moderately prominent size. No displaced fractures. IMPRESSION: Mild CHF versus volume overload. EXAM DESCRIPTION: CT - Abdomen Pelvis Wo Contrast - 11/13/2020 8:20 pm CLINICAL HISTORY: Abdominal pain. ABD PAIN COMPARISON: Abdomen Pelvis Wo Contrast dated 11/21/2019 TECHNIQUE: CT imaging of the abdomen and pelvis was performed without contrast. Solid organ, bowel and vascular assessment is limited due to lack of IV and oral contrast. All CT scans are performed using dose optimization technique as appropriate and may include automated exposure control or mA/KV adjustment according to patient size. FINDINGS: Mild ground-glass opacities in the lung bases.Moderate cardiomegaly. The liver, spleen, pancreas, adrenal glands and kidneys are within normal limits for a limited non-contrast examination. No bowel obstruction, free air, free fluid or abscess. Moderate stool is present throughout the colon. The appendix is normal. Small amount of free fluid in the pelvis. The osseous structures are within normal limits. IMPRESSION: Moderate cardiomegaly with mild interstitial edema in the lung bases. Moderate stool retained in the colon. A limited non-contrast examination was performed as detailed. Conclusions/Impression: ESRD with poor dialysis compliance -Acute HD today HTN Emergency due to medication non-compliance -Continue home medications including Ramipril, Nifedipine, Coreg and Doxazosin -Nitro gtt discontinued -CTA reviewed -Counseled the patient regarding the risk of stroke again Diastolic CHF, A/C -Acute HD with UF -Low sodium diet Mild malnutrition -Continue Nepro Anemia in chronic illness -Monitor H&H -Retacrit PRN TERRI/ Secondary HyperPTH -Continue Vitamin D -Continue Renvela
--- NOTE | 2020-11-15 11:48 | P.DS ---
Admission Date: 11/14/20 Discharge Date: 11/15/20 Primary Care Provider: Saleem Disposition: ROUTINE DISCHARGE Discharge Condition: FAIR Reason for Admission: Chest Pressure/ Dyspnea Consultations: Renal-Dr. Monge. - Problems (1) Accelerated hypertension Current Visit: Yes Status: Acute (2) End stage renal disease on dialysis Current Visit: Yes Status: Acute (3) Missed dialysis Current Visit: Yes Status: Acute (4) Anemia in chronic kidney disease Current Visit: No Status: Acute Brief History of Present Illness: 35-year-old woman with a history of end-stage renal disease, hypertension presented to the emergency department due to shortness of breath. Patient missed 2 days of dialysis. Her blood pressure was severely elevated in the ED. Chest x-ray demonstrated volume overload. CT abdomen and pelvis showed retained stool, interstitial edema and cardiomegaly. Nephrology Dr. Monge was contacted and patient hospitalized for further management. Hospital Course: Patient admitted to the medical floor. She underwent 2 sessions of hemodialysis. She reported noncompliance with home antihypertensives. Her systolic blood pressure severely elevated to the 200s. Her blood pressure significantly improved when her home medications were resumed. Patient has been asymptomatic and deemed stable for discharge. Vital Signs/Physical Exam: Temp Pulse Resp BP Pulse Ox 98.4 F 67 16 143/79 H 97 11/15/20 08:00 11/15/20 09:00 11/15/20 08:00 11/15/20 09:00 11/15/20 08:00 General: Alert, In no apparent distress, Oriented x3 HEENT: Mucous membr. moist/pink Neck: JVD not distended Respiratory: Other (No labored breathing) Cardiovascular: Regular rate/rhythm Gastrointestinal: Non-distended Musculoskeletal: No swelling Integumentary: No rashes Neurological: Other (No focal motor deficit.) Laboratory Data at Discharge: WBC 4.90 K/uL (4.3-10.9) D 11/15/20 05:18 Hgb 11.1 g/dL (12.0-15.0) L 11/15/20 05:18 Hct 32.5 % (36.0-45.0) L 11/15/20 05:18 Plt Count 258 K/uL (152-406) 11/15/20 05:18 PT 12.7 SECONDS (9.2-12.8) 11/13/20 16:03 INR 1.07 11/13/20 16:03 Sodium 139 mmol/L (136-145) 11/15/20 05:18 Potassium 4.1 mmol/L (3.5-5.1) 11/15/20 05:18 BUN 43 mg/dL (7-18) H 11/15/20 05:18 Creatinine 6.51 mg/dL (0.55-1.3) H* D 11/15/20 05:18 Glucose 123 mg/dL (74-106) H 11/15/20 05:18 Phosphorus 3.6 mg/dL (2.5-4.9) 11/15/20 05:18 Magnesium 2.7 mg/dL (1.8-2.4) H 11/15/20 05:18 Total Bilirubin 0.4 mg/dL (0.2-1.0) 11/15/20 05:18 AST 24 U/L (15-37) 11/15/20 05:18 ALT 31 U/L (12-78) 11/15/20 05:18 Alkaline Phosphatase 70 U/L (45-117) 11/15/20 05:18 Troponin I 0.13 ng/mL (0.0-0.045) H 11/14/20 20:57 Home Medications: Cholecalciferol (Vitamin D3) [Vitamin D 5,000 IU Cap*] 5,000 units PO DAILY 11/19/19 Doxazosin [Cardura*] 2 mg PO BID 11/19/19 calcitrioL [Rocaltrol] 2 tab PO DAILY 11/19/19 Hydrocodone 5/APAP 325 [[place] 5/325*] 1 tab PO Q4H PRN tab 11/23/19 Sevelamer Carbonate [Renvela*] 800 mg PO TIDWM #90 tablet 11/23/19 Carvedilol [Coreg] 25 mg PO BID #60 tablet 11/27/19 Nifedipine Xl [Procardia Xl*] 90 mg PO BID #180 tab 11/27/19 Ramipril [Altace] 10 mg PO DAILY #30 capsule 11/27/19 Spironolactone [Aldactone] 50 mg PO DAILY #30 tablet 11/27/19 Docusate [Colace Cap*] 100 mg PO BID #60 cap 11/15/20 Nepro Shake [Nepro*] 237 ml PO BID #60 can 11/15/20 New Medications: Docusate [Colace Cap*] 100 mg PO BID #60 cap Nepro Shake [Nepro*] 237 ml PO BID #60 can Diet: Renal Activity: Ad corby Followup: Sami Monge DO [ACTIVE - CAN ADMIT] - 1-2 Weeks NONE,NONE [Primary Care Provider] - Time spent managing pt's care (in minutes): 34
[2020-11-15 12:08] VITALS: TEMP 98.5
[2020-11-15 12:22] VITALS: O2SAT 97
[2020-11-15 19:42] VITALS: BP 150/90
== END 2020-11-15 18:55 | disposition home or self-care (01) | DRG 640 ==
LOC: ER 15:22 → ERHOLD 11-14 01:27 → 2ND 11-14 09:22
PROVIDERS: ADMIT Internal Medicine; ATTEND Internal Medicine
PROC: 5A1D70Z Performance of Urinary Filtration, Intermittent, Less than 6 Hours Per Day (ICD-10-PCS; principal; 2020-11-15)
DX: E87.70 Fluid overload, unspecified (principal); N18.6 End stage renal disease; I50.33 Acute on chronic diastolic (congestive) heart failure; I16.1 Hypertensive emergency; N25.81 Secondary hyperparathyroidism of renal origin; E44.1 Mild protein-calorie malnutrition; I13.2 Hypertensive heart and chronic kidney disease with heart failure and with stage 5 chronic kidney disease, or end stage renal disease; D63.1 Anemia in chronic kidney disease; F17.210 Nicotine dependence, cigarettes, uncomplicated; N25.0 Renal osteodystrophy; D63.8 Anemia in other chronic diseases classified elsewhere; R77.8 Other specified abnormalities of plasma proteins; Z99.2 Dependence on renal dialysis; Z91.15 Patient's noncompliance with renal dialysis; Z79.899 Other long term (current) drug therapy; Z98.51 Tubal ligation status; Z91.14 Patient's other noncompliance with medication regimen; Z68.26 Body mass index [BMI] 26.0-26.9, adult; Z20.822 Contact with and (suspected) exposure to COVID-19
CPT/HCPCS: 36415; 71045; 71275; 74175; 74176; 80048; 80053; 80076; 81003; 81015; 83735; 83880; 84100; 84484; 85025; 85610; 87086; 87088; 90935; 93005; 94760; 96374; 96375; 99285; J0360; J1642; J1644; J2270; J2405; J2550; J3010; Q9967; U0003

== ENCOUNTER 2021-02-17 10:18 | Emergency (ER) | payer OTHER ==
--- OUTSIDE RECORDS SUMMARY | 2021-02-17 10:23 | XMS REPORT | Continuity of Care Document ---
:1985 Author Organization [facility] t Address [address] [place] [address] Care Team Providers Name Role Phone Pcp Primary Care Physician Unavailable Gino MILLER Attending Clinician Unavailable Madie DANIELLE, K N Attending Clinician Juan YORK, Y Attending Clinician Unavailable Abigail Link Attending Clinician Unavailable Edu YORK Attending Clinician Unavailable Suni IBANEZBalbina Attending Clinician Unavailable Bunny Barron MD Attending [...] 02-14 Clear Allergie 00:00: Alatorre s 00 [facility] hydrocod DA Active U 2013-06 [facility] 0-03 Clear 00:00: Alatorre 00 [facility] Family History Family Member Diagnosis Comments Start Date Stop Date Source Natural brother No Known Problem [facility] Maternal uncle Kidney disease [facility] Natural mother Heart defect [facility] Natural sister No Known Problem [facility] Social History Social Habit Start Date Stop Date Quantity Comments Source History of Current smoker [facility] es tobacco [facility] Sex Assigned At [facility] Tobacco use and 2020-10-07 2020-10-07 Never used [facility] - exposure 00:00:00 00:00:00 [facility] Alcohol intake 2020-10-07 2020-10-07 Ex-drinker [facility] es - 00:00:00 00:00:00 (finding) [facility] Tobacco Comment 2020-10-07 2020-10-07 [facility] Alcohol Comment 2020-10-07 2020-10-07 1 glass of wine [facility] - 00:00:00 00:00:00 [facility] Smoking Status Start Date Stop Date Source Former smoker 2020-10-07 00:00:00 2020-10-07 00:00:00 [facility] Medications Ordered Filled Start Stop Current Ordering Indication Dosage Frequency Signature Comments Components Source Medication Medication Date Date Medication? Clinician (SIG) Name Name sevelamer Yes 1600mg Take 1,[address] [facility] (RENVELA) [...] times Center tablet daily. NIFEdipine Yes 30mg Q.91109935 Take [address] (PROCARDIA) 4-27 [id number] by mouth [facility] - 10 MG 13:12: 3D (three) Medical capsule 58 times Center daily. spironolact Yes 50mg QD Take [address] one 4-27 by mouth [facility] - (ALDACTONE) 13:12: daily. Medi cinthia 50 MG 58 Center tablet HYDROcodone Yes 1{tbl} Take [address] -acetaminop -27 tablet by [place] [facility] - hen (NORCO 13:12: mouth Medica l 10-325) 58 every 6 Center 10-325 mg (six) per tablet hours as needed for Pain. doxazosin Yes 8mg Q.31249461 Take [address] (CARDURA) 8 - [id number] by mouth 3 [facility] - MG tablet 12:13: 3D (three) Medic al 58 times Center daily . cholecalcif Yes 5000U QD Take 5,[address] [place], 4-27 Units by [facility]ukes - vitamin D3, 12:13: mouth Medic al 125 mcg 58 daily. Center (5,000 unit) Tab hydrALAZINE 2020- No 10mg Q.97480223 Take [address] (APRESOLINE -27 - [id number] by mouth 3 [facility] - ) 10 MG 12:13: 00:00 3D (three) Medica l tablet 24 :00 times Center daily. Vital Signs Vital Name Observation Time Observation Value Comments Source Body weight 2020-10-07 11:13:00 66.225 kg [facility] BMI 2020-10-07 11:13:00 26.13 kg/m2 [facility] Systolic blood 2020-10-07 11:13:00 202 mm[Hg] [facility] Diastolic blood 2020-10-07 11:13:00 133 mm[Hg] [facility] S t [facility] Heart rate 2020-10-07 11:13:00 73 /min [facility] Body temperature 2020-10-07 11:13:00 36.61 Lois [facility] Respiratory rate 2020-10-07 11:13:00 20 /min [facility] Body height 2020-10-07 11:13:00 159.2 cm [facility] Procedures Procedure Date / Time Performing Clinician Source Performed URINE CULTURE 2020-10-07 10:08[facility] W/ MICROSCOPIC 2020-10-07 10:08:00 Anderson amidcarrillot i [facility] HEMOGLOBIN A1C 2020-10-07 10:07:00 [facility] CBC W/PLT COUNT & AUTO 2020-10-07 10:07:00 Noah Barron C HI [facility] DIFFERENTIAL [facility] CYTOMEGALOVIRUS ANTIBODY, 2020-10-07 10:07:00 Anderson, Deniseamidipat i [facility] IGG [facility] CYTOMEGALOVIRUS ANTIBODY, 2020-10-07 10:07:00 Anderson, Deniseamidcarrillot i [facility] COMPREHENSIVE METABOLIC 2020-10-07 10:07:00 [facility] PANEL [facility] EBV ANTIBODY, IGG 2020-10-07 10:07:00 Anderson, [facility] GAMMA GLUTAMYL TRANSFERASE 2020-10-07 10:07:00 Denise Barronamidipa ti [facility] (GGT) [facility] HEPATITIS B SURFACE ANTIBODY 2020-10-07 10:07:00 Anderson, Bhamidi lev [facility] HEPATITIS B SURFACE ANTIGEN 2020-10-07 10:07:00 Anderson, Bhamidip ati [facility] HEPATITIS B CORE ANTIBODY, 2020-10-07 10:07:00 Anderson, amidipa ti [facility] HEPATITIS C ANTIBODY 2020-10-07 10:07:00 Anderson, [facility] HC LAB HIV-1 AG W/HIV-1&2 AB 2020-10-07 10:07:00 Anderson, [facility] PHOSPHORUS 2020-10-07 10:07:00 Anderson, [facility] PTH, INTACT 2020-10-07 10:07:00 Anderson, [facility] PT/APTT 2020-10-07 10:07:00 Anderson, [facility] PROTHROMBIN TIME/INR 2020-10-07 10:07:00 Anderson, [facility] RPR 2020-10-07 10:07:00 Anderson, [facility] URIC ACID 2020-10-07 10:07:00 Anderson, [facility] VARICELLA ZOSTER ANTIBODY, 2020-10-07 10:07:00 Anderson, [facility] IGG [facility] ANTITHROMBIN III 2020-10-07 10:07:00 Anderson, [facility] FACTOR 5 LEIDEN PCR 2020-10-07 10:07:00 Anderson, [facility] (THROMBOTIC RISK) [facility] HC LAB PROTHROMBIN FACTOR II 2020-10-07 10:07:00 Anderson, [facility] PROTEIN C ACTIVITY 2020-10-07 10:07:00 Anderson, [facility] PROTEIN S ACTIVITY 2020-10-07 10:07:00 Anderson, [facility] PHOSPHATIDYLSERINE ABS (IGG, 2020-10-07 10:07:00 Anderson, [facility] - IGM) [facility] DIRECT AHG (JOHANN)/DIRECT 2020-10-07 10:07:00 Anderson, [facility] - OTTO [facility] ABORH, MANUAL 2020-10-07 10:07:00 Anderson, [facility] US PELVIS WITH DOPPLER 2020-09-25 12:09:00 Anderson, Bhamidipati C HI [facility] US ABDOMEN COMPLETE 2020-09-25 11:38:00 Anderson, Bhamidipati [facility] XR CHEST 2 VIEWS 2020-09-25 10:24:00 Anderson, amidipati [facility] 2D ECHO W/ DOPPLER 2020-09-25 08:44:17 Anderson, [facility]ati [facility] ECG 12-LEAD 2020-09-25 08:24:21 Anderson, Bhamidipati [facility] T SPOT TB 2020-09-25 08:06:00 Anderson, Bhamidipati [facility] FLOW PRA CLASS I WITH REFLEX 2020-09-25 08:05:00 Anderson, Bhamidi lev [facility] - TO ANTIBODY SPECIFICITY [facility] FLOW PRA CLASS II WITH 2020-09-25 08:05:00 Anderson, Bhamidipati C HI [facility] - REFLEX [facility]IB[facility] HLA TYPING CI 2020-09-25 08:05:00 Anderson, Bhamidipati [facility] HLA TYPING CII 2020-09-25 08:05:00 [facility] LIPID PANEL 2020-09-25 08:05:00 [facility] BLOOD TYPING, AUTOMATED 2020-09-25 08:05:00 Anderson, amidipati [facility] Plan of Care Planned Activity Planned Date Details Comments Source Future Scheduled 2027-12-07 DTAP/TDAP/TD VACCINES [facility] Test 00:[facility]00 (4 - Td) [code = [facility] ter DTAP/TDAP/TD VACCINES (4 - Td)] Future Scheduled 2023-09-[address] [facility] - Test 00:00:00 (procedure) [code = [facility] [id number]] Future Scheduled 2021-02-11 INFLUENZA VACCINE (#1) [facility] 00:[facility]00 [code = INFLUENZA Medical Ce nter VACCINE (#1)] Future Scheduled 2020-06-[address] [facility] - Test 00:00:00 (12+) [code = Medical Center DEPRESSION SCREENING (12+)] Future Scheduled 2020-02-12 Medicare IPPE (WELCOME [facility] - Test 00:00:00 TO MEDICARE) [code = Medical Center Medicare IPPE (WELCOME TO MEDICARE)] Future Scheduled [address] [facility] - Test 00:00:00 malignant neoplasm of Medica l Center cervix (procedure) [code = 288674735] Future Scheduled 1998 COVID-19 VACCINE (1) [facility] [...] Date/Time Type Type Clinicians Facility Department ID 2020-11-14 2020-11-14 Darien Gion [facility] [id number] 00:00[facility]00 00:00:00 [facility] 2020-11-14 2020-11-14 [id number] 00:00:00 00:00:00 Work [facility] 2020-11-13 2020-11-13 Case Kenji-Amari [facility] [id number] 00:00:00 00:00:00 Bee Rae do [facility] [id number] [place] [id number] [place] [id number] [facility] 2020-11-06 2020-11-06 Case Betinailla-Cru [facility] [id number] 00:00:00 00:00:00 Management Bee covarrubias [facility] [id number] [facility] [id number] [place] [id number] [facility] 2020-11-04 2020-11-04 [facility] [id number] 00[facility]00[facility]00 00:00:00 [facility] 2020-10-31 2020-10-31 [facility] [id number] 00:00[facility]00 00:00:00 [facility] 2020-10-22 2020-10-22 Documentat Juan [facility] [id number] 00:00:00 00:00:00 [facility] 2020-10-16 2020-10-16 Telephone [facility] [id number] 00:00:00 00:00:00 [facility] 2020-10-16 2020-10-16 [facility] [id number] 00:00:00 00:00:00 Only [facility] 2020-10-14 2020-10-14 Documentishmael Sorensen [facility] [id number] 00:00:00 00:00:00 ion [facility] 2020-10-14 2020-10-14 Telephone [facility] [id number] 00:00:00 00:00:00 [facility] 2020-10-14 2020-10-14 Telephone Edu [facility] [id number] 00:00:00 00:00:00 [facility] 2020-10-12 2020-10-12 Documentishmael Culp [facility] [id number] 00:00:00 00:00:00 ion Laura Mortensen [facility] 2020-10-07 2020-10-07 Evaluation Noah Barron [facility] [id number] [facility] 09:54:41 10:24:41 Erich[facility]ordana [facility] 2020-10-07 2020-10-07 Evaluation Noah Barron [facility] [id number] [facility] 09:53:43 10:23:43 Rena Nassar [facility] 2020-10-07 2020-10-07 Orders Anderson, [facility] [id number] 09:53:01 10:08:01 Only [facility] 2020-10-07 2020-10-07 Telephone Demetris [facility] [id number] 00:00:00 00:00:00 [facility] 2020-10-06 2020-10-06 Telephone Malinda [facility] [id number] 00:00:00 00:00:00 [facility] 2020-10-06 2020-10-06 [facility] [id number] 00:00:00 00:00:00 [facility] 2020-10-06 2020-10-06 Documentat [facility] [id number] 00:00:00 00:00:00 ion [facility] 2020-10-02 2020-10-02 Telephone Demetris [facility] [id number] 00:00[facility]00 00:00:00 [facility] 2020-10-02 2020-10-02 Telephone Gifford, [facility] [id number] 00:00:00 00:00:00 [facility] 2020-09-25 2020-09-25 [facility] Noah Barron [facility] [id number] [facility] 10:07:04 23:59:00 [facility] 2020-09-25 2020-09-25 [facility] [id number] [facility] 10:06:56 10:06:56 Encounter 1, [facility] Alannah Resendez [facility] 2020-09-25 2020-09-25 [facility], [facility] [id number] 10:06:49 10:06:49 Encounter [facility] 2020-09-25 2020-09-25 [facility], [facility] [id number] 08:10:48 10:05:00 Encounter [facility] 2020-09-25 2020-09-25 [facility], [facility] [id number] 08:00:00 08:09:00 Encounter [facility] 2020-09-03 2020-09-03 Telephone Demetris [facility] [id number] 00:00:00 00:00:00 [facility] 2020-09-03 2020-09-03 Telephone DereckAmari [facility] [id number] [id number] 00:00:00 00:00:00 Bee covarrubias [facility] [id number] IALTY [id number] [place] [id number] [facility] 2020-06-26 2020-06-26 Documentat Juan [facility] [id number] 00:00:00 00:00:00 ion [facility] 2020-06-26 2020-06-26 Abstract Juan [facility] [id number] 00:00:00 00:00:00 [facility] 2020-06-23 2020-06-23 Abstract Bay [facility] [id number] 00:00:00 00:00:00 [facility] 2020-06-23 2020-06-23 Documentishmael Hermosillo [facility] [id number] 00:00:00 00:00:00 [facility] 2020-06-17 2020-06-17 Documentishmael Hermosillo [facility] [id number] 00:00:00 00:00:00 [facility] 2020-06-17 2020-06-17 Abstract Bay [facility] [id number] 00:00:00 00:00:00 [facility] 2020-06-17 2020-06-17 Documentishmael Hermosillo [facility] [id number] 00:00:00 00:00:00 [facility] 2020-06-16 2020-06-16 Abstract [place] [facility] [id number] 00:00:00 00:00:00 [facility] 2020-06-16 2020-06-16 Telephone Bay [facility] [id number] 00:00:00 00:00:00 [facility] Results Test Description Test Time Test Comments [...] (IGM) (test code = syndrome (APS) lita 9617189) clinical-pathol ogic correlation that includesa clinical event (e.g. thrombosi s, pregnancyloss, thrombocytopeni a) and persistent positiveantipho spholipid antibodies (IgM or IgG JENSEN>40 MPL/GPL,IgM or IgG anti-b2GPI antibodies ora lupus anticoagulant). International consensusguidel radha for APS suggest waiting at least 12weeks before retestin g to confirm antibodypersist ence. The Systemic Lupus Internati onalCollaborating Clinics immunologicalcl assification criteria for [facility] lupuserythemato vishal (SLE) include testing for iso [...] (test code = RACQUEL) Performing Lab [facility] [email or web address] [facility] [address] [place] [address] Daija Green MD, PhD, KRISHNA [facility] [id number] 16:22:00 Test Item Value Reference Interpretation Comments Range PROTHROMBIN GENE NEGATIVE RESULT: G20 210A VARIANT NOT ANALYSIS (test DETECTED code = 7722683) Interpretation See Below INTERPRETATIO N: This (test code = individual is n egative 0926905) (normal) for e P33045Rrydunsr in the Prothrombin/Fac tor II gene. Increased risk ofthrombophilia can be caused by a morgan iety of genetic and non-geneticfact ors not screened for by this assay. Laboratory test ing supervised and results monitored by Carol Steinberg,Ph.D., D ABG, [facility]. The K24367E mut ation [QR764678.1: g. 65857J>A (c.*97G>A)] in theProthrombin/ Factor II gene is the sec ond most common inherite d riskfactor for thrombosis occurring in approximately 2 % of Caucasians.Pres ence of the mutation is ass ociated with an elevation of prothrombin levels to about 30% above normal in heter ozygotes and to70% above nor mal in homozygotes. Pr othrombin (J71084B) mutat ions are detected by amp lification oftheir selecte d gene regions by poly merase chain reaction (PCR) andfluorescent probe hybridization t o the targeted region , followed bymelting curve analysis with a real mingo e PCR system. Although rare,f alse positive or false negati ve results may occur. All resultsshould be interpreted in context of clinical findin gs, relevanthistory , and other laboratory data . Health care providers, plea se contact your local Ques t Diagnostics'gen eti counselor or carol [phone] ([phone]) forassistance with interpreta tion of these results. This t est was developed and i ts analytical performancechar acteristics have been deter mined by [employer] [facility] [place]. It has not been cleared or appr elva bythe FDA. This assay has been validated pursu ant to the CLIAregulations and is used for clinical pu rposes. RACQUEL (test code = Performing Lab RACQUEL) [facility] [employer] [facility] [address] [place] [address] Daija Green MD, PhD, KRISHNA [facility] HospitalFactor 5 Leiden PCR (thrombotic risk)2020-10-11 13:14:00 Test Item Value Reference Interpretation Comments Range Factor V Leiden NEGATIVE FACTOR V LEI DEN (R506Q) Mutation (test VARIANT NOT D ETECTED code = 0477920) Interpretation See Below INTERPRETATIO N: This (test code = individual is n egative 7481072) (normal) for th e Factor VLeiden (R506Q) variant in the Factor 5 ge ne. Increased risk ofthrombop hilia can be caused by a morgan iety of genetic and non-geneticfact ors not screened for by this assay. Laboratory test ing supervised and results monitored by Bonita Durán MD, PhD, [facility], M BS. MUTATION ANALYSIS:The Fa ctor V Leiden [...] Ques t Diagnosticsgene tic counselor or call its learning [facility] ([phone]) for assistancewith interpretation of these results. This t est was developed and i ts analytical performancechar acteristics have been deter mined by [employer] [facility] [place]. It has not been cleared or appr elva bythe FDA. This assay has been validated pursu ant to the CLIAregulations and is used for clinical pu rposes. RACQUEL (test code = Performing Lab RACQUEL) EZ [facility] [place] [address] [place] [address] Daija Green MD, PhD, KRISHNA [facility] HospitalProtein S [id number] 03:55:00 Test Item Value Reference Range Interpretation Comments Protein S 95 See_Comment Decreased leve ls of Functional (test Protein S a ctivity code = 5978695) may be found in patients withhereditary deficiency, war farin therapy, vitami n k deficiency, dominick er disease,DIC, or recent thrombos is as well as after surgery. In addition, it ma y bephysiologic i n . An elevated Protei n S activity is not clinicallysigni fican t. Only deficie ncies are associated with an increased thromboticrisk. [Automated mess age] The system [employer] generated this result transmit liya reference range : 60 - 140 % normal. The reference range was not used to interpret this result as normal/abnormal . RACQUEL (test code = Performing Lab RACQUEL) [facility] [employer] [address] [place] [address] Daija Green MD, PhD, KRISHNA [facility] HospitalUrine [id number] 07:38:00 Test Item Value Reference Range Interpretation Comments Result (test code = See comment 6463-4) RACQUEL (test code = >100,000 col/mL enteric RACQUEL) organisms of >2 types. No further workup performed. Multiple organisms suggestive of colonization or contamination. Repeat collection recommended.40-49,000 col/mL skin beth [facility] HospitalURINE [id number] 07:38:00 Test Item Value Reference Range Interpretation Comments CULTURE (MELONIE) (test code = See comment 1095) >100,000 col/mL enteric organisms of >2 types. No further workup performed. Multiple organismssuggestive of colonization or contamination. Repeat collection recommended.40-49,000 col/mL skin [id number] 14:26:00 Test Item Value Reference Range Interpretation Comments RPR (test code = 10465-6) Nonreactive Nonreactive Lab Interpretation (test code = Normal 66431-1) [facility] HospitalRPR2021-04-28 14:26:00 Test Item Value Reference Range Interpretation Comments RPR SCREEN (MELONIE) (test code = Nonreactive Nonreactive 420) Varicella Zoster Antibody, [id number] 14:12:00 Test Item Value Reference Range Interpretation Comments Varicella IgG (test 2.8 code = 12344-1) RACQUEL (test code = RACQUEL) VARICELLA ZOSTER RESULT INTERPRETATIONS: <=0.8 Al Nonreactive: Presumed non-immune to VZV 0.9-1.0 Al Equivocal >=1.1 Al Reactive: Presumed immune to VZV [facility] HospitalVARICELLA ZOSTER ANTIBODY, [id number] 14:12:00 Test Item Value Reference Range Interpretation Comments VARICELLA ZOSTER IGG (AL) (GUALBERTOAKER) 2.8 (test code = 3197) VARICELLA ZOSTER RESULT INTERPRETATIONS: <=0.8 Al Nonreactive: Presumed non-immune to VZV 0.9-1.0 Al Equivocal >=1.1 Al Reactive: Presumed immune to VZVCytomegalovirus antibody, [id number] 13:54:00 Test Item Value Reference Range Interpretation Comments CYTOMEGALOVIRUS, IGG Positive Negative, A (test code = 3429) Equivocal RACQUEL (test code = RACQUEL) CMV IgG Result Interpretation: </= 0.8 Al Negative 0.9-1.0 Al Equivocal >/=1.1 Al Positive Lab Interpretation (test Abnormal code = 63026-9) [facility] HospitalEBV-VCA antibody, [id number] 13:54:00 Test Item Value Reference Range Interpretation Comments ALETA BOWLING VIRAL Positive Negative, A CAPSID ANTIGEN IGG (test Equivocal code = 3415) RACQUEL (test code = RACQUEL) Aleta Bowling Viral Capsid Antigen IgG Result Interpretation: </= 0.8 Al Negative 0.9-1.0 Al Equivocal >/= 1.1 Al Positive Lab Interpretation (test Abnormal code = 08646-8) [facility] HospitalEBV-VCA antibody, [id number] 13:54:00 Test Item Value Reference Range Interpretation Comments ALETA BOWLING VIRAL Negative Negative, CAPSID ANTIGEN IGM (test Equivocal code = 3418) RACQUEL (test code = RACQUEL) Aleta Bowling Viral Capsid Antigen IgM Result Interpretation: </= 0.8 Al Negative 0.9-1.0 Al Equivocal >/= 1.1 Al Positive Lab Interpretation (test Normal code = 23709-1) [facility] HospitalCytomegalovirus antibody, [id number] 13:54:00 Test Item Value Reference Range Interpretation Comments CMV IGM (test code = Negative Negative, 3437) Equivocal RACQUEL (test code = RACQUEL) CMV IgM Result Interpretation: </= 0.8 Al Negative 0.9-1.0 Al Equivocal >/= 1.1 Al Positive Lab Interpretation (test Normal code = 61229-2) [facility] HospitalCYTOMEGALOVIRUS ANTIBODY, [id number] 13:54:00 Test Item Value Reference Range Interpretation Comments CYTOMEGALOVIRUS, IGG (BEAKER) Positive Negative, Equivocal A (test code = 3429) CMV IgG Result Interpretation: </= 0.8 Al Negative 0.9-1.0 Al Equivocal >/=1.1 Al PositiveCYTOMEGALOVIRUS ANTIBODY, [id number] 13:54:00 Test Item Value Reference Range Interpretation Comments CYTOMEGALOVIRUS IGM ANTIBODY Negative Negative, Equivocal (BEAKER) (test code = 3437) CMV IgM Result Interpretation: </= 0.8 Al Negative 0.9-1.0 Al Equivocal >/= 1.1 Al PositiveEBV ANTIBODY, [id number] 13:54:00 Test Item Value Reference Range Interpretation [...] Activity (test code = 108.0 % 70-130 19048-8) Lab Interpretation (test code = Normal 14272-5) [facility] HospitalPROTEIN C [id number] 10:42:00 Test Item Value Reference Range Interpretation Comments PROTEIN C ACTIVITY (BEAKER) (test 108.0 % 70.0-130.0 code = 582) Hemoglobin [id number] 16:04:00 Test Item Value Reference Range Interpretation Comments Hemoglobin A1C (test code = 4548-4) 4.6 % 4.3-6.1 Lab Interpretation (test code = Normal 84305-4) [facility]MO[facility] [id number] 16:04:00 Test Item Value Reference Range Interpretation Comments HEMOGLOBIN A1C (BEAKER) (test code = 4.6 % 4.3-6.1 368) Hepatitis B surface [id number] 14:44:00 Test Item Value Reference Interpretation Comments Range Hep B S Ab (test 1462.6 See_Comment H [Automated code = 19533-6) message] The system which generated this result transmitted reference range : <8.0 mIU/mL. [facility] reference range was not used to interpret this result as normal/abnormal . RACQUEL (test code = Business Administrator ID - RACQUEL) ROSIANGOperator ID - ROSIANG Lab Interpretation Abnormal (test code = 82418-3) [facility]HEPAT[facility] SURFACE [id number] 14:44:00 Test Item Value Reference Range Interpretation Comments HEPATITIS B SURFACE ANTIBODY 1462.6 mIU/mL <8.0 H (BEAKER) (test code = 647) Business Administrator ID - ROSIANGOperator ID - ROSIANGUrinalysis, [id number] 14:42:00 Test Item Value Reference Range Interpretation Comments Color, UA (test code Yellow = 5778-6) Clarity, UA (test Clear code = 5767-9) Specific [place], UA 1.012 1.001-1.035 (test code = 5811-5) pH, UA (test code = 8.0 5.0-8.0 5803-2) Protein, UA (test 70 mg/dL Negative A code = 75292-3) Glucose, UA (test Negative Negative code = 365) Ketones, UA (test Negative Negative code = 2514-8) Bilirubin, UA (test Negative Negative code = 29345-0) Blood, UA (test code Negative Negative = 08811-9) Nitrite, UA (test Negative Negative code = 5802-4) Leukocytes, UA (test Negative Negative code = 5799-2) Urobilinogen, UA 0.2 mg/dL 0.2-1 (test code = 83129-0) RBC, UA (test code = <1 See_Comment [Autom ated 79277-2) message] The system which generated this result [...] 4 See_Comment [Automate d (test code = 03082-6) messag e] The system which generated this result transmit liya reference range : /HPF. The reference range was not used to interpret this result as normal/abnormal . Hyaline Casts, UA 1 See_Comment [Automate d (test code = 57450-5) messag e] The system which generated this result transmit liya reference range : /LPF. The reference range was not used to interpret this result as normal/abnormal . Specimen Source (test code = 2795) RACQUEL (test code = RACQUEL) Business Administrator ID - [auto]Business Administrator ID - tech Lab Interpretation Abnormal (test code = 06239-7) [facility]URIN[facility]IS W/ [id number] 14:42:00 Test Item Value Reference Range Interpretation [...] /LPF 514) SOURCE(BEAKER) (test code = 2795) Business Administrator ID - [auto]Business Administrator ID - techHepatitis B surface [id number] 14:30:00 Test Item Value Reference Range Interpretation Comments HBsAg Screen (test code Nonreactive Nonreactive = 5195-3) RACQUEL (test code = RACQUEL) Specimen is considered negative for HBsAg. Lab Interpretation (test Normal code = 96017-7) [facility]Hep[facility] core antibody, [id number] 14:30:00 Test Item Value Reference Range Interpretation Comments Hep B C IgM (test code = Nonreactive Nonreactive 14204-0) RACQUEL (test code = RACQUEL) Business Administrator ID - ROSIANG Lab Interpretation (test Normal code = 17083-5) [facility]Hep[facility] [id number] 14:30:00 Test Item Value Reference Range Interpretation Comments Hepatitis C Ab (test Nonreactive Nonreactive code = 32949-6) RACQUEL (test code = RCAQUEL) Business Administrator ID - ROSIANG Lab Interpretation (test Normal code = 22454-7) [facility]HIV-[facility] Antigen with HIV-1/2 [id number] 14:30:00 Test Item Value Reference Range Interpretation Comments HIV-1 Antigen with HIV Nonreactive Nonreactive 1&2 Antibody (test code = 73545-7) RACQUEL (test code = RACQUEL) Business Administrator ID - NOELG Lab Interpretation (test Normal code = 13337-0) [facility]HEPAT[facility]IS [facility] SURFACE [id number] 14:30:00 Test Item Value Reference Range Interpretation Comments HEPATITIS B SURFACE ANTIGEN (2) Nonreactive Nonreactive (BEAKER) (test code = 2585) Specimen is considered negative for HBsAg.HEPATITIS B CORE ANTIBODY, IGM 2020-10-07 14:30:00 Test Item Value Reference Range Interpretation Comments HEPATITIS B CORE IGM ANTIBODY Nonreactive Nonreactive (BEAKER) (test code = 645) Business Administrator ID - ROSIANGHEPATITIS C [id number] 14:30:00 Test Item Value Reference Range Interpretation Comments HEPATITIS C ANTIBODY (BEAKER) Nonreactive Nonreactive (test code = 367) Business Administrator ID - WILMERIV-1 ANTIGEN WITH HIV-1/2 [id number] 14:30:00 Test Item Value Reference Range Interpretation Comments HIV-1 ANTIGEN WITH HIV 1\T\2 Nonreactive Nonreactive ANTIBODY (2) (BEAKER) (test code = 2586) Business Administrator ID - NOELGAntithrombin [id number] 14:04:00 Test Item Value Reference Range Interpretation Comments Antithrombin III (test code = 60617-0) 94.0 % 80-120 Lab Interpretation (test code = Normal 15913-9) [facility] HospitalANTITHROMBIN [id number] 14:04:00 Test Item Value Reference Range Interpretation Comments ANTITHROMBIN III ACTIVITY (BEAKER) 94.0 % 80.0-120.0 (test code = 711) Direct AHG (JOHANN)/Direct [id number] 13:47:00 Test Item Value Reference Range Interpretation Comments Direct AHG-IGG (test code = 1006-6) NEGATIVE Direct AHG-C3B, C3D (test code = NEGATVIE 1003-3) [facility] HospitalComprehensive metabolic [id number] 13:42:00 Test Item Value Reference Range Interpretation Comments Protein, Total (test 6.9 See_Comment [Autom ated code = 2885-2) message] The system which generated this result transmit liya reference range : 6.0 - 8.3 gm/dL . The reference range was not u sed to interpret th is result as normal/abnormal . Albumin (test code = 3.9 g/dL 3.5-5 52684-7) Alkaline Phosphatase 65 U/L 40-150 (test code = 6768-6) Total Bilirubin (test 0.3 mg/dL 0.2-1.2 code = 1974-2) Sodium (test code = 140 meq/L 271-920 2975-2) Potassium (test code 4.2 meq/L 3.5-5.1 = 2823-3) Chloride (test code = 102 meq/L 98-107 2075-0) CO2 (test code = 23 meq/L 22-29 2028-9) BUN (test code = 39 mg/dL 7-21 H 3094-0) Creatinine (test code 9.59 mg/dL 0.57-1.25 H = 2160-0) Glucose (test code = 91 mg/dL 70-105 2345-7) Calcium (test code = 8.5 mg/dL 8.4-10.2 45743-8) AST (test code = 16 U/L 5-34 1920-8) ALT (test code = 11 U/L 6-55 1742-6) EGFR (test code = 6 mL/min/1.73 [place] [address]-8) NOT ACCURATE CREATININE CLEARANCE IN PREDICTING GLOMERULAR FILTRATION RATE . ESTIMATED GFR I S NOT APPLICABLE FOR DIALYSIS PATIEN TSChelsey RACQUEL (test code = RACQUEL) Business Administrator ID - ROSIANG Lab Interpretation Abnormal (test code = 29862-1) [facility] HospitalCOMPREHENSIVE METABOLIC [id number] 13:42:00 Test Item Value Reference Range Interpretation [...] S NOT APPLICABLE FOR DIALYSIS PATIEN TS. Business Administrator ID - ROSIANGGamma Glutamyl Transferase (GGT)2020-10-07 13:37:00 Test Item Value Reference Range Interpretation Comments GGT (test code = 2324-2) 21 U/L 9-64 RACQUEL (test code = RACQUEL) Business Administrator ID - ROSIANG Lab Interpretation (test Normal code = 29063-7) [facility] HospitalPhosphorus2021-04-27 13:37:00 Test Item Value Reference Range Interpretation Comments Phosphorus (test code = 5.7 mg/dL 2.3-4.7 H 2777-1) RACQUEL (test code = RACQUEL) Business Administrator ID - ROSIANG Lab Interpretation (test Abnormal code = 50639-3) [facility] HospitalUric [id number] 13:37:00 Test Item Value Reference Range Interpretation Comments Uric Acid (test code = 8.4 mg/dL 2.6-7.2 H 3084-1) RACQUEL (test code = RACQUEL) Business Administrator ID - ROSIANG Lab Interpretation (test Abnormal code = 62637-6) [facility] HospitalPHOSPHORUS2021-04-27 13:37:00 Test Item Value Reference Range Interpretation Comments PHOSPHORUS (BEAKER) (test code = 5.7 mg/dL 2.3-4.7 H 604) Business Administrator ID - NOELGURIC [id number] 13:37:00 Test Item Value Reference Range Interpretation Comments URIC ACID (BEAKER) (test code = 8.4 mg/dL 2.6-7.2 H 773) Business Administrator ID - ROSMARGIGGAMMA GLUTAMYL TRANSFERASE (GGT)2020-10-07 13:37:00 Test Item Value Reference Range Interpretation Comments GAMMA GLUTAMYL TRANSFERASE (BEAKER) 21 U/L 9-64 (test code = 364) Business Administrator ID - NOELGPTH, [id number] 13:36:00 Test Item Value Reference Range Interpretation Comments PTH (test code = 2731-8) 466.5 pg/mL 8.5-72.5 H RACQUEL (test code = RACQUEL) Business Administrator ID - ROSIANG Lab Interpretation (test Abnormal code = 88840-2) [facility] HospitalPTH, [id number] 13:36:00 Test Item Value Reference Range Interpretation Comments PARATHYROID HORMONE INTACT 466.5 pg/mL 8.5-72.5 H (BEAKER) (test code = 577) Business Administrator ID - NOELGPT/aFQJ0890-11-52 13:34:00 Test Item Value Reference Interpretation Comments Range Protime (test code = 13.9 See_Comment [Autom ated 5902-2) message] The system which generated this result transmitted reference range : 11.9 - 14.2 seconds. The reference range was not used to interpret this result as normal/abnormal . INR (test code = 1.11 See_Comment [Automated 0501-6) message] The system which generated this result transmitted reference range : <=5.90. The reference range was not used to interpret this result as normal/abnormal . PTT (test code = 37.1 See_Comment H [Automated 77053-4) message] The system which generated this result [...] valves. Lab Interpretation Abnormal (test code = 17989-2) [facility] HospitalPT/[id number] 13:34:00 Test Item Value Reference Range Interpretation [...] is2.5-3.5 for patients wiht mechanical heart valves.Prothrombin time/[id number] 13:33:00 Test Item Value Reference Interpretation Comments [...] valves. Lab Interpretation Normal (test code = 05234-5) [facility] HospitalABORH, [id number] 13:33:00 Test Item Value Reference Range Interpretation Comments ABO Grouping (test code = 2588) O Rh Factor (test code = 2589) POS [facility] HospitalPROTHROMBIN TIME/[id number] 13:33:00 Test Item Value Reference Range Interpretation Comments PROTIME (BEAKER) 13.9 seconds 11.9-14.2 (test code = 759) INR (BEAKER) (test 1.11 See_Comment [Automat ed message] code = 370) The system [employer] generated this result transmitted ref erence range: [...] heart valves.CBC with platelet count + automated [id number] 13:05:00 Test Item Value Reference Range Interpretation Comments WBC (test code = 6690-2) 6.4 See_Comment [A utomated message] The system [employer] generated this result transmitted ref erence range: 3.5 - 10 .5 K/L. The refe rence range was not u sed to interpret this result as normal/abnor mal. RBC (test code = 789-8) 2.95 See_Comment L [Au tomated message] The system [employer] generated this result transmitted ref erence range: 3.93 - 5 .22 M/L. The refe rence range was not u sed to interpret this result as normal/abnor mal. MCHC (test code = 786-4) 31.4 See_Comment L [A utomated message] The system [employer] generated this result transmitted ref erence range: [...] code = 318 See_Comment [Aut omated message] 777-3) The system [employer] generated this result transmitted ref erence range: 150 - 45 0 K/CU MM. The referen ce range was not u sed to interpret this result as normal/abnor mal. MPV (test code = 9.7 fL 9.4-12.3 70878-0) nRBC (test code = 413) 0 See_Comment [Aut omated message] The system [employer] generated this result transmitted ref erence range: [...] See_Comment [Aut omated message] 670) The system [employer] generated this result transmitted ref erence range: 1.56 - 6 .13 K/L. The refe rence range was not u sed to interpret this result as normal/abnor mal. # Lymphs (test code = 1.43 See_Comment [Auto mated message] 414) The system [employer] generated this result transmitted ref erence range: 1.18 - 3 .74 K/L. The refe rence range was not u sed to interpret this result as normal/abnor mal. # Monos (test code = 0.48 See_Comment H [Autom ated message] 415) The system [employer] generated this result transmitted ref erence range: 0.24 - 0 .36 K/L. The refe rence range was not u sed to interpret this result as normal/abnor mal. # Eos (test code = 416) 0.28 See_Comment [Au tomated message] The system [employer] generated this result transmitted ref erence range: 0.04 - 0 .36 K/L. The refe rence range was not u sed to interpret this result as normal/abnor mal. # Baso (test code = 417) 0.04 See_Comment [A utomated message] The system [employer] generated this result transmitted ref erence range: 0.01 - 0 .08 K/L. The refe rence range was not u sed to interpret this result as normal/abnor mal. Immature 0 % 0-1 Granulocytes-Relative (test code = 2801) Lab Interpretation (test Abnormal code = 73105-3) [facility] W/PLT COUNT & AUTO [id number] 13:05:00 Test Item Value Reference Range Interpretation [...] (BEAKER) (test code = 2801) T SPOT [id number] 14:01:00 Test Item Value Reference Range Interpretation Comments T-SPOT TB (BEAKER) (test code = Negative 1683) NEG CONTROL SPOT COUNT (BEAKER) 0 (test code = 1684) PANEL A SPOT (BEAKER) (test code = 0 1685) PANEL B SPOT (BEAKER) (test code = 0 1686) POS CONTROL SPOT CT (BEAKER) (test 0 code = 1687) SCAN RESULT (test code = 6425976) See Scanned ReportECG 12 [id number] 13:44:09Interface, External Ris In - 09/25/2020 1:44 PM CDTVentricular Rate 75 BPMAtrial Rate 75 BPMP-R Interval 154 msQRS Duration 86 msQ-T Interval 442 msQTC Calculation(Bazett) 493 msP Ovett 73 degreesR Ovett 83 degreesT O[place] 64 degreesNormal sinus rhythmRight atrial enlargementProlonged QTAbnormal ECGNo previous ECGs availableConfirmed by MD Guzman Roberto ([id number]) on 09/25/2020 1:44:07 [facility]US, [facility], WITH [id number] 13:22:00Reason for Exam:->to assess iliac vesselsKidney Transplant Evaluation [facility] : 1985 Sex: FFINAL REPORT TECHNIQUE: Grayscale, [...] Verified Date/Time: 09/25/2020 13:22:46 US pelvis with [id number] 13:22:00Interface, External Ris In - 09/25/2020 1:24 [...] Cindy Wright MDReport Verified Date/Time: 09/25/2020 13:22:46 [facility] CenterUS, ABDOMINAL, [id number] 13:01:00Reason for Exam:->[facility] EvaluationCH[facility]GOName: [facility]IGES : 1985 Sex: F FINAL [...] CINDY WRIGHT MD on 101:01 PMUS abdomen [id number] 13:01:00Interface, External Ris In - 09/25/2020 1:03 [...] Cindy Gonzalez MDReport Verified Date/Time: 09/25/2020 13:01:08 [facility] CenterLIPID [id number] 12:42:00 Test Item Value Reference Range Interpretation [...] Borderline 130-159 High 160-189 Very High >=190 Business Administrator ID - [id number] Echo W/Doppler(CW/PW/Color)2020-09-25 10:35:55Ejection FractionSLEH ECHO HEARTLAB MKCKESSON CPACSInterface, External Ris In - 09/25/2020 10:36 AM CDTTransthoracic Echocardiography Report (TTE) Demographics Patient Name MARIANA RODRIGES Dateof Study 09/25/2020 RAMONA MEYER Gender Female Visit Number [id number] Race Black Room Number OP Number Date of 1985 Referring Anderson Zamora Physician Bunny Age 35 year(s) 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 Atrial septal position continuously bows egdg-on-vgdxm, consistent with elevated LA pressure . Guso-ye-fdzcneks t ricuspid regurgitation. Estimated peak systolic PA [...] Atrial Septum Atrial septal position continuously bows nsdw-oc-itugq, consistent with elevated LA pressure . Aortic Valve Normal AoV structure. There is trace aortic regurgitation. Mitral Valve Mild MV leaflet thickening. At least moderate eccentric posteriorly directed mitral regurgitation.Tricuspid Valve TV structure is normal. Axkp-yd-dqsvtpbn tricuspid regurgitation. Estimated peak systolic PA pressure [...] CO: 6.17 l/min LVOT CI: 3.72 l[facility], 2 [id number] 10:28:00Reason for Exam:->[facility]idney Trans[facility] EvaluationCHIL[facility]IEGOName: MARIANA RODRIGES : 1985 Sex: F FINAL [...] pneumonia,pleural effusion or pneumothorax. Signed: Zina Em MDReport Verified Date/Time: 09/25/2020 10:28:23 Reading Location: [facility] Reading Room [address] [place] [address] XR chest 2 views 2020-09-25 10:28:00Interface, External [...] MDReport Verified Date/Time: 09/25/2020 10:28:23 Reading Location: [facility] Reading Room [address] [place] [address] [facility] [id number] 14:34:00 Test Item Value Reference Range Interpretation Comments UR HCG QUAL (test code = HCGQLU) NEGATIVE NEGATIVE COVID 19 Asymptomatic IH [id number] 12:06:00 Test Item Value Reference Range Interpretation [...] on theamount of vi power (antigen) in e sample.This janet t has not been FDA cleare d or approved; the t est hasbeen authori zed by FDA under an Em ergency Use Authorizati on(EUA) for use by labo ratories certified under the CLIA thatmeet the requirements to perform moderate, high or waivedcomplexit y tests. COMMENTS: If not done this admissionBASIC METABOLIC [id number] 11:25:00 Test Item Value Reference Range Interpretation [...] = 8.3 mg/dL 8.0-10.5 N CA) PROTHROMBIN [id number] 11:22:00 Test Item Value Reference Range Interpretation [...] o prevent recurre nt infarct). CBC W/AUTO [id number] 11:20:00 Test Item Value Reference Range Interpretation [...] NO = MDIFF) - XR CHEST 1 [id number] 11:15:00 [facility] : 1985 Sex: F FAX: Abimael Gallardo MD [phone] [place]: St: REG Name: MARIANA RODRIGES [facility] [place] [facility] : 1985 Age/S: 35/F [address] [facility] Unit #: [id number] Loc: [place] [address] Phys: Abimael Isaac MD Acct: [id number] Dis Date: Status: REG [facility] PHONE #: [phone] Exam Date: 06/03/2020 1052 FAX #: [phone] Reason: PRE-OP EXAMS: CPT CODE: [id number] XR CHEST 1 V 15238 EXAM: XR CHEST 1 VIEW DATE: 06/03/2020 9:40 AM : 1985; Age: 35 years y/o Female INDICATION: AVF malfunction, PRE-OP COMPARISON: March 25, 2020 TECHNIQUE: AP chest. IMPRESSION: Lines, tubes and hardware: Stable. Heart, mediastinum and lungs: Heart appears borderline enlarged. No consolidation or pleural effusion is seen. No pneumothorax. SL: [id number] at 1115 Reported and signed by: Marcy Montes D.O. CC: Abimael Isaac MD Technologist: RT Faheem(R) Trnscrd Date/Time/By: 06/03/2020 (1117) : By: [email or web address] Orig Print D/T: S: 06/03/2020 (111) PAGE 1 Signed ReportCBC W/AUTO [id number] 11:13:00 Test Item Value Reference Range Interpretation [...] DIFF REQUIRED (test code = MDIFF) PROTHROMBIN [id number] 11:57:00 Test Item Value Reference Range Interpretation [...] o prevent recurre nt infarct). BASIC METABOLIC [id number] 11:39:00 Test Item Value Reference Range Interpretation [...] 9.9 mg/dL 8.0-10.5 N CA) HCG SERUM [id number] 11:23:00 Test Item Value Reference Range Interpretation Comments HCG SERUM QUAL (test code = SERUM NEGATIVE NEGATIVE HCGQL) CBC W/AUTO [id number] 11:17:00 Test Item Value Reference Range Interpretation [...] (test code NO = MDIFF) CBC W/AUTO [id number] 11:15:00 Test Item Value Reference Range Interpretation [...] code = MDIFF) - XR CHEST 1 [id number] 11:04:00 FAX: Abimael Gallardo MD [phone] [place]: S[address] St: REG Name: MARIANA RODRIGES [facility] [place] [facility] : 1985 Age/S: 34/F [address] [place] [address] Unit#: [id number] Loc: [place] [address] Phys: Abimael Isaac MD Acct: [id number] Dis Date: Status: REG SDC PHONE #: [phone] Exam Date: 03/25/20201102 FAX #: [phone] Reason: PRE OP EXAMS: CPT CODE: [id number] XR CHEST 1 V 54847 PROCEDURE: CHEST SINGLE VIEW INDICATION: PRE OP;ESRD COMPARISON: March 2014 FINDINGS: TUBES AND LINES: Tunneledright hemodialysis catheter tip at the level of mid superior vena cava. CHEST: The lungs are clear. The pleural, cardiomediastinal silhouette, and bony thorax are normal. IMPRESSION: No acute findings. SL: [id number] Reported and signed by: Josesito Tolentino M.D. CC: Abimael Isaac MD Technologist: More LamaRT(R) Trnscrd Date/Time/By: 03/25/2020 (4702) : By: GalloKWL Orig Print D/T: S: 03/25/2020 (8062) PAGE 1 Signed ReportCOVID 19 Asymptomatic IH [id number] 10:59:00 Test Item Value Reference Range Interpretation [...]
--- NOTE | 2021-02-17 11:18 | RAD REPORT ---
EXAM DESCRIPTION: RAD - Chest Single View - 02/17/2021 11:12 am CLINICAL HISTORY: missed dialysis COMPARISON: Chest Single View dated 11/13/2020; Chest Single View dated 11/22/2019; Abdomen 1 View (KUB ) dated 11/21/2019; Chest Single View dated 11/19/2019; Angio Aorta For Dissection dated 11/13/2020 FINDINGS: Lines: None. Lungs: Prominence of the pulmonary interstitium noted. No consolidative airspace disease. Pleural: No significant pleural effusions or pneumothorax. Cardiac: Cardiomegaly Bones: No acute fractures. Other: IMPRESSION: Mild pulmonary edema suspected.
[2021-02-17 11:59] LABS: Hematocrit 26.7 % (36.0-45.0); MPV 7.6 fL (7.6-11.3); Potassium 4.7 mmol/L (3.5-5.1); RBC Red Blood Cell Count 2.87 M/uL (3.86-4.86); Troponin (Emerg Dept Use Only) 0.02 ng/mL (0.0-0.045)
[2021-02-17 12:00] LABS: Absolute Lymphocytes (CBC) 0.9 K/uL (0.7-4.9); Basophils % 1.2 % (0-1.3); Lymphocytes % 16.6 % (15.3-44.8)
[2021-02-17] MEDS ORDERED: MORPHINE 4 MG/ML SYR ONE (12:10)
[2021-02-17] MEDS ORDERED: ONDANSETRON 4 MG/2 ML VIAL ONE (12:10)
--- NOTE | 2021-02-17 12:39 | ER ---
Nurse's Notes [facility] Name: Nely Quinones Age: 35 yrs Sex: Female : 1985 Arrival Date: 02/17/2021 Time: 10:20 Bed 9 Private MD: Diagnosis: Fluid overload, unspecified Presentation: 02/17 10:32 Chief complaint: Patient states: SOB and fluid build up for a couple days. Missed ll1 dialysis this week, only went once last week. Coronavirus screen: Client denies travel out of the [place] in the last 14 days. At this time, the client does not indicate any symptoms associated with coronavirus-19. Ebola Screen: Patient denies travel to an Ebola-affected area in the 21 days before illness onset. Initial Sepsis Screen: Does the patient meet any 2 criteria? No. Patient's initial sepsis screen is negative. Does the patient have a suspected source of infection? No. Patient's initial sepsis screen is negative. Risk Assessment: Do you want to hurt yourself or someone else? Patient reports no desire to harm self or others. Onset of symptoms was February 11, 2021. 10:32 Method Of Arrival: Ambulatory ll1 10:32 Acuity: LORENA 3 ll1 Historical: - Allergies: 10:34 No Known Allergies; ll1 - PMHx: 10:34 Dialysis; DIALYSIS MWF; Hypertension; ll1 - Immunization history:: Flu vaccine is not up to date. - Social history:: Smoking status: Patient reports the use of cigarette tobacco products, denies chronic smoking, but will smoke occasionally. Screenin:58 Abuse screen: Denies threats or abuse. Nutritional screening: No deficits noted. vg1 Tuberculosis screening: No symptoms or risk factors identified. Fall Risk No fall in past 12 months (0 pts). No secondary diagnosis (0 pts). IV access (20 points). Ambulatory Aid- None/Bed Rest/Nurse Assist (0 pts). Gait- Normal/Bed Rest/Wheelchair (0 pts) Mental Status- Oriented to own ability (0 pts). Total Benavides Fall Scale indicates No Risk (0-24 pts). Assessment: 10:56 General: Appears in no apparent distress. uncomfortable, Behavior is calm, cooperative. vg1 Pain: Complains of pain in chest and back Pain currently is 10 out of 10 on a pain scale. Pain began 1 day ago. Neuro: Level of Consciousness is awake, alert, obeys commands, Oriented to person, place, time, situation. Cardiovascular: Patient's skin is warm and dry. Dialysis shunt: in the Left forearm , with palpable thrill, with auscultated bruit, with no erythema, with no edema, no bleeding noted. Respiratory: Reports shortness of breath at rest on exertion Airway is patent Respiratory effort is even, unlabored, Breath sounds are clear bilaterally. GI: Abdomen is round distended, Bowel sounds hypoactive in right upper quadrant, left upper quadrant, right lower quadrant and left lower quadrant Patient currently denies diarrhea, nausea, vomiting. : No signs and/or symptoms were reported regarding the genitourinary system. EENT: No signs and/or symptoms were reported regarding the EENT system. Derm: Skin is intact, is healthy with good turgor. Musculoskeletal: Circulation, motion, and sensation intact. 11:42 Reassessment: Received VO from [facility] WILLIAMSON to administer Morphine 4 mg IVP x1 and Zofran vg1 4 mg IVP x1. 11:58 Reassessment: Patient appears in no apparent distress at this time. No changes from vg1 previously documented assessment. Patient and/or family updated on plan of care and expected duration. Pain level reassessed. Patient is alert, oriented x 3, equal unlabored respirations, skin warm/dry/pink. Vital Signs: 10:32 BP 188 / 118; Pulse 80; Resp 18; Temp 98.0; Pulse Ox 100% ; Weight 65.77 kg; Height 5 ll1 ft. 2 in. (157.48 cm); Pain 10/10; 10:56 BP 178 / 115; Pulse 80; Resp 18; Pulse Ox 97% ; vg1 12:01 BP 190 / 111; Pulse 83; Resp 16; Pulse Ox 97% ; vg1 13:02 BP 176 / 108; Pulse 79; Resp 16; Pulse Ox 97% on R/A; vg1 10:32 Body Mass Index 26.52 (65.77 kg, 157.48 cm) ll1 ED Course: 10:20 Patient arrived in ED. ds1 10:34 Triage completed. ll1 10:35 Arm band placed on Patient placed in an exam room, on a stretcher. ll1 10:40 Dorina Marshall, RN is Primary Nurse. vg1 10:41 Jovanna Paulino FNP-C [facility]. kb 10:41 Oscar Shultz MD is Attending Physician. kb 10:59 Patient has correct armband on for positive identification. Bed in low position. Call vg1 light in reach. Side rails up X 1. 11:11 XRAY Chest (1 view) In Process Unspecified. EDMS 11:15 Missed attempt(s): 20 gauge in right antecubital area. vg1 11:21 Initial lab(s) drawn, by me, sent to lab. Inserted saline lock: 22 gauge in right vg1 forearm, using aseptic technique. Blood collected. 13:03 No provider procedures requiring assistance completed. IV discontinued, intact, vg1 bleeding controlled, No redness/swelling at site. Pressure dressing applied. Administered Medications: 11:53 Drug: Zofran (Ondansetron) 4 mg Route: IVP; Site: right forearm; vg1 13:03 Follow up: Response: No adverse reaction vg1 11:56 Drug: morphine 4 mg Route: IVP; Site: right forearm; vg1 13:03 Follow up: Response: No adverse reaction; Marked relief of symptoms vg1 Outcome: 12:39 Discharge ordered by . kb 13:02 Discharged to home ambulatory. vg1 13:02 Condition: stable 13:02 Discharge instructions given to patient, Instructed on discharge instructions, follow up and referral plans. Demonstrated understanding of instructions, follow-up care. 13:03 Patient left the ED. vg1 Signatures: Dispatcher [employer] EDLA Jovanna Paulino FNP-C FNP-Diana Singh ds1 Dorina Marshall RN RN vg1 Neal Hernández RN RN ll1
--- NOTE | 2021-02-17 12:40 | EDPHYS ---
Physician Documentation [facility] Name: Nely Quinones Age: 35 yrs Sex: Female : 1985 Arrival Date: 02/17/2021 Time: 10:20 Bed 9 Private MD: ED Physician Oscar Shultz HPI: 02/17 12:58 This 35 yrs old Black Female presents to ER via Ambulatory with complaints of Fluid on kb Lungs. 12:57 Pt reports she missed dialysis last Tuesday and Tuesday, then again yesterday. States she kb feels uncomfortable and has swelling to abd which is normal when she misses dialysis. States she tried to go today, but was told she had to come here to get her labs checked first. . Onset: The symptoms/episode began/occurred today. Severity of symptoms: At their worst the symptoms were moderate in the emergency department the symptoms are unchanged. The patient has experienced similar episodes in the past, several times. The patient has not recently seen a physician. Historical: - Allergies: 10:34 No Known Allergies; ll1 - PMHx: 10:34 Dialysis; DIALYSIS MWF; Hypertension; ll1 - Immunization history:: Flu vaccine is not up to date. - Social history:: Smoking status: Patient reports the use of cigarette tobacco products, denies chronic smoking, but will smoke occasionally. ROS: 12:56 Constitutional: Negative for fever, chills, and weight loss. kb 12:56 Abdomen/GI: Positive for abdominal distension. 12:56 All other systems are negative. Exam: 11:06 ECG was reviewed by the Attending Physician. kb 12:56 Constitutional: This is a well developed, well nourished patient who is awake, alert, kb and in no acute distress. Head/Face: Normocephalic, atraumatic. ENT: Moist Mucous membranes Cardiovascular: Regular rate and rhythm with a normal S1 and S2. No gallops, murmurs, or rubs. No pulse deficits. Respiratory: Respirations even and unlabored. No increased work of breathing, no retractions or nasal flaring. Skin: Warm, dry with normal turgor. Normal color. MS/ Extremity: Pulses equal, no cyanosis. Neurovascular intact. Full, normal range of motion. Neuro: Awake and alert, GCS 15, oriented to person, place, time, and situation. Moves all extremities. Normal gait. Psych: Awake, alert, with orientation to person, place and time. Behavior, mood, and affect are within normal limits. 12:56 Abdomen/GI: Inspection: distension, that is mild, Palpation: abdomen is soft and non-tender. Vital Signs: 10:32 BP 188 / 118; Pulse 80; Resp 18; Temp 98.0; Pulse Ox 100% ; Weight 65.77 kg; Height 5 ll1 ft. 2 in. (157.48 cm); Pain 10/10; 10:56 BP 178 / 115; Pulse 80; Resp 18; Pulse Ox 97% ; vg1 12:01 BP 190 / 111; Pulse 83; Resp 16; Pulse Ox 97% ; vg1 13:02 BP 176 / 108; Pulse 79; Resp 16; Pulse Ox 97% on R/A; vg1 10:32 Body Mass Index 26.52 (65.77 kg, 157.48 cm) ll1 MDM: 10:41 Patient medically screened. kb 12:54 Data reviewed: vital signs, nurses notes. Data interpreted: Pulse oximetry: on room air kb is 97 %. Interpretation: normal. Counseling: I had a detailed discussion with the patient and/or guardian regarding: the historical points, exam findings, and any diagnostic results supporting the discharge/admit diagnosis, lab results, radiology results, the need for outpatient follow up, a family practitioner, to return to the emergency department if symptoms worsen or persist or if there are any questions or concerns that arise at home. 12:55 ED course: Pt in no resp distress, oxygen sat 97% on room air, potassium normal. Pt kb educated on need for dialysis. Pt calling to get in today if possible. 02/17 10:38 Order name: Chem 7; Complete Time: 12:30 ss 02/17 10:38 Order name: Troponin (emerg Dept Use Only); Complete Time: 12:30 ss 02/17 10:38 Order name: XRAY Chest (1 view); Complete Time: 11:21 ss 02/17 10:38 Order name: CBC with Diff; Complete Time: 12:02 ss 02/17 10:38 Order name: EKG; Complete Time: 10:39 ss 02/17 10:38 Order name: EKG - Nurse/Tech; Complete Time: 11:21 ss EC:06 Rate is 76 beats/min. Rhythm is regular. QRS [place] is Normal. NE interval is normal at kb 166 msec. QRS interval is normal at 84 msec. QT interval is normal at 440 msec. Administered Medications: 11:53 Drug: Zofran (Ondansetron) 4 mg Route: IVP; Site: right forearm; vg1 13:03 Follow up: Response: No adverse reaction vg1 11:56 Drug: morphine 4 mg Route: IVP; Site: right forearm; vg1 13:03 Follow up: Response: No adverse reaction; Marked relief of symptoms vg1 Disposition: 02/18 08:12 Co-signature as Attending Physician, Oscar Shultz MD I agree with the assessment and toño plan of care. Disposition Summary: 02/17/21 12:39 Discharge Ordered Location: Home kb Condition: Stable kb Diagnosis - Fluid overload, unspecified kb Followup: kb - With: Emergency Department - When: As needed - Reason: Worsening of condition Followup: kb - With: Private Physician - When: 2 - 3 days - Reason: Recheck today's complaints, Continuance of care, Re-evaluation by your physician Discharge Instructions: - Discharge Summary Sheet kb - Pulmonary Edema, [id number] kb Forms: - Medication Reconciliation Form kb - Thank You Letter kb - Antibiotic Education kb - Prescription Opioid Use kb Signatures: Dispatcher [employer] EDJovanna Groves, ADAL-Danya HAYESP-Oscar Brown MD MD cha Smirch, Shelby, RN RN ss Dorina Marshall, RN RN vg1 Neal Hernández, RN RN ll1
[2021-02-17 13:14] VITALS: TEMP 98
[2021-02-17 13:15] VITALS: O2SAT 97
[2021-02-17 13:18] VITALS: BP 176/108
--- NOTE | 2021-02-18 11:30 | EKG ---
Test Date: 2021-02-17 Test Time: 11:03:03 Medical Doctor: JALEN MEASUREMENT RESULTS: Intervals: Rate: 76 MO: 166 QRSD: 84 QT: 440 QTc: 495 [place]: P: 54 MO: 166 QRS: 74 T: 73 INTERPRETIVE STATEMENTS: Normal sinus rhythm Possible Left atrial enlargement Cannot rule out Anterior infarct, age undetermined Abnormal ECG Compared to ECG 11/13/2020 18:39:08 Myocardial infarct finding now present Sinus tachycardia no longer present Left ventricular hypertrophy no longer present Early repolarization no longer present Electronically Signed On 02-18-21 11:27:00 CDT by Eldon Huddleston
== END 2021-02-17 13:03 | disposition home or self-care (01) ==
LOC: ER 10:18
DX: E87.70 Fluid overload, unspecified (principal); I10 Essential (primary) hypertension; F17.210 Nicotine dependence, cigarettes, uncomplicated; Z99.2 Dependence on renal dialysis
CPT/HCPCS: 93005; 85025; 80048; 36415; 84484; 71045; 96375; 96374; 99284; J2405

== ENCOUNTER 2021-03-03 17:56 | Inpatient (IN) | payer OTHER ==
--- NOTE | 2021-03-03 20:10 | RAD REPORT ---
EXAM DESCRIPTION: RAD - Chest Single View - 03/03/2021 7:02 pm CLINICAL HISTORY: SOB, missed dialysis COMPARISON: February 17 TECHNIQUE: AP portable chest image was obtained 03/03/2021 7:02 pm . FINDINGS: No focal mass or consolidation. Upper lobe vasculature within normal limits. Cardiomegaly is present without diffuse pulmonary edema findings. No measurable pleural effusion and no pneumothor ax. No acute bony abnormality seen. No acute aortic findings suspected. IMPRESSION: Cardiomegaly without additional findings of significant failure or volume overload.
[2021-03-03] MEDS ORDERED: MORPHINE 2 MG/ML SYR ONE (20:22)
[2021-03-03] MEDS ORDERED: ONDANSETRON 4 MG/2 ML VIAL ONE (20:23)
[2021-03-03 20:26] LABS: Absolute Lymphocytes (CBC) 1.2 K/uL (0.7-4.9); Basophils % 0.7 % (0-1.3); Hematocrit 24.4 % (36.0-45.0); Lymphocytes % 17.2 % (15.3-44.8); MPV 7.9 fL (7.6-11.3); RBC Red Blood Cell Count 2.68 M/uL (3.86-4.86)
[2021-03-03 20:46] LABS: Albumin 3.2 g/dL (3.4-5.0); Bilirubin Direct 0.1 mg/dL (0-0.2); Bilirubin Total 0.4 mg/dL (0.2-1.0); Magnesium 2.7 mg/dL (1.8-2.4); Potassium 3.5 mmol/L (3.5-5.1); Protein, Total 6.8 g/dL (6.4-8.2); Troponin (Emerg Dept Use Only) 0.05 ng/mL (0.0-0.045)
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
[2021-03-04] MEDS ORDERED: ASPIRIN EC 81 MG TAB PO ONE (00:39)
[2021-03-04] MEDS ORDERED: MORPHINE 4 MG/ML SYR ONE (00:39)
[2021-03-04] MEDS ORDERED: ONDANSETRON 4 MG/2 ML VIAL ONE (00:40)
--- NOTE | 2021-03-04 01:00 | P.HP ---
Certification for Inpatient Patient admitted to: Inpatient With expected LOS: <2 Midnights Patient will require the following post-hospital care: None Practitioner: I am a practitioner with admitting privileges, knowledge of patient current condition, hospital course, and medical plan of care. Services: Services provided to patient in accordance with Admission requirements found in Title 42 Section 412.3 of the Code of Federal Regulations Patient History Date of Service: 03/04/21 Reason for admission: missed dialysis History of Present Illness: Ms. Quinones is a 35 yo F with HTN and ESRD on HD MWF who presents after 4 days of missed dialysis. She reports abdominal swelling, SOB, CORRAL, and cough productive of thick yellow mucus for the past few days. She says she feels 'foggy' in her brain and not 100% like herself. She says she has felt like this before when she has missed dialysis. Denies fever, N/V/D. H/H 8.3, BUN 92, Cr 8.56, GFR 6, glu 136, trop 0.05. Allergies No Known Allergies Allergy (Verified 11/19/19 21:40) Home Medications: Cholecalciferol (Vitamin D3) [Vitamin D 5,000 IU Cap*] 5,000 units PO DAILY 11/19/19 Doxazosin [Cardura*] 2 mg PO BID 11/19/19 calcitrioL [Rocaltrol] 2 tab PO DAILY 11/19/19 Hydrocodone 5/APAP 325 [[place] 5/325*] 1 tab PO Q4H PRN tab 11/23/19 Sevelamer Carbonate [Renvela*] 800 mg PO TIDWM #90 tablet 11/23/19 Carvedilol [Coreg] 25 mg PO BID #60 tablet 11/27/19 Nifedipine Xl [Procardia Xl*] 90 mg PO BID #180 tab 11/27/19 Ramipril [Altace] 10 mg PO DAILY #30 capsule 11/27/19 Spironolactone [Aldactone] 50 mg PO DAILY #30 tablet 11/27/19 Codeine/APAP [Tylenol W/Codeine #3 tab] 1 tab PO Q6HP PRN #20 tab 11/15/20 Docusate [Colace Cap*] 100 mg PO BID #60 cap 11/15/20 Nepro Shake [Nepro*] 237 ml PO BID #60 can 11/15/20 - Past Medical/Surgical History Diabetic: No -: HTN -: ESRD on HD -: C Section -: Tubal Ligation - Family History Family History: Reviewed- Non-Contributory - Social History Smoking Status: Never smoker Alcohol use: No CD- Drugs: No Caffeine use: No Place of Residence: Home Review of Systems 10-point ROS is otherwise unremarkable Respiratory: Cough, Shortness of Breath, SOB with Excertion, Sputum Gastrointestinal: Abdominal Pain Physical Examination - Physical Exam General: Alert, In no apparent distress, Oriented x3, Cooperative HEENT: Atraumatic, PERRLA, Mucous membr. moist/pink, EOMI, Sclerae nonicteric Neck: Supple, 2+ carotid pulse no bruit, No LAD, Without JVD or thyroid abnormality Respiratory: Normal air movement, Crackles/rales Cardiovascular: Normal pulses, Regular rate/rhythm, Normal S1 S2, No gallops, No rubs, No murmurs Gastrointestinal: Normal bowel sounds, No tenderness, No masses, No rebound, Ascites Musculoskeletal: No tenderness Integumentary: No rashes Neurological: Normal speech, Normal strength at 5/5 x4 extr, Normal tone, Normal affect Lymphatics: No axilla or inguinal lymphadenopathy - Studies Laboratory Data (last 24 hrs) 03/03/21 20:00: Magnesium Cancelled, Total Bilirubin Cancelled, AST Cancelled, ALT Cancelled, Alkaline Phosphatase Cancelled 03/03/21 20:00: Sodium 140, Potassium 3.5, BUN 92 H, Creatinine 8.56 H*, Glucose 136 H, Magnesium 2.7 H, Total Bilirubin 0.4, AST 15, ALT 31, Alkaline Phosphatase 76 03/03/21 20:00: WBC 6.80, Hgb 8.3 L, Hct 24.4 L, Plt Count 258 Assessment and Plan - Problems (Diagnosis) (1) Anemia in chronic kidney disease Current Visit: No Status: Chronic Qualifiers: Chronic kidney disease stage: on chronic dialysis Qualified Code(s): N18.6 - End stage renal disease; D63.1 - Anemia in chronic kidney disease; Z99.2 - Dependence on renal dialysis (2) Elevated troponin Current Visit: No Status: Acute (3) End stage renal disease on dialysis Current Visit: No Status: Chronic (4) Missed dialysis Current Visit: No Status: Acute (5) HTN (hypertension) Current Visit: No Status: Chronic Qualifiers: Hypertension type: primary hypertension Qualified Code(s): I10 - Essential (primary) hypertension - Plan nephrology consulted, dialysis in the AM reconcile and continue home BP medications, hydralazine for PRN BP spikes trend troponin monitor H/H O2 and pain management as needed renal diet DVT ppx Discharge Plan: Home Plan to discharge in: 48 Hours - Advance Directives Does patient have a Living Will: No Does patient have a Durable POA for Healthcare: No - Code Status/Comfort Care Code Status Assessed: Yes (full code ) Critical Care: No Time Spent Managing Pts Care (In Minutes): 70
[2021-03-04] MEDS ORDERED: ALBUTEROL 2.5 MG/3 ML NEB SOL NEB PRN (01:07)
[2021-03-04] MEDS ORDERED: ACETAMINOPHEN 500 MG TAB PO PRN (01:07)
[2021-03-04] MEDS ORDERED: ONDANSETRON 4 MG/2 ML VIAL IV PRN (01:07)
[2021-03-04] MEDS ORDERED: FUROSEMIDE 40 MG/4 ML VIAL IV ONE (01:07)
[2021-03-04 02:14] VITALS: BMI 26.5
[2021-03-04] MEDS: HYDRALAZINE HCL 20 MG/ML VIAL IV PRN ×2 (02:22→20:00)
[2021-03-04] MEDS: MORPHINE 2 MG/ML SYR IV SCH ×4 (02:23→13:00)
[2021-03-04 05:36] LABS: Absolute Lymphocytes (CBC) 1.5 K/uL (0.7-4.9); Lymphocytes % 22.2 % (15.3-44.8); MPV 7.5 fL (7.6-11.3); RBC Red Blood Cell Count 2.63 M/uL (3.86-4.86)
[2021-03-04 05:54] LABS: Bilirubin Total 0.3 mg/dL (0.2-1.0); Magnesium 2.6 mg/dL (1.8-2.4); Phosphorus 4.9 mg/dL (2.5-4.9); Potassium 3.8 mmol/L (3.5-5.1); Protein, Total 6.3 g/dL (6.4-8.2); Troponin I 0.03 ng/mL (0.0-0.045)
[2021-03-04] MEDS: INSULIN -REGULAR HUMAN 50 UNIT/0.5 ML ML SQ SCH ×2 (07:30→11:30)
[2021-03-04] MEDS ORDERED: CALCITROL 0.25 MCG CAP PO SCH (09:00)
[2021-03-04] MEDS ORDERED: NA CHLORIDE 0.9% 1,000 ML IV PRN (09:00)
[2021-03-04] MEDS ORDERED: MULTIVITAMINS,THERAPEUT 1 TAB PO SCH (09:00)
[2021-03-04] MEDS ORDERED: ALBUMIN HUMAN 25% 50 ML IV SCH (09:00)
[2021-03-04] MEDS ORDERED: VITAMIN D 5,000 UNIT CAP PO SCH (09:00)
[2021-03-04] MEDS ORDERED: MANNITOL 25% 12.5 GM/50 ML VIAL IV PRN (09:00)
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
[2021-03-04] MEDS ORDERED: EPOETIN ALFA-EPBX 10,000 UNIT/ML VIAL SQ ONE (09:15)
[2021-03-04] MEDS: NEPRO SHAKE 237 ML CAN PO SCH ×3 (09:15→20:02)
[2021-03-04 09:17] VITALS: O2SAT 96
[2021-03-04] MEDS: DOCUSATE NA 100 MG CAP PO SCH ×2 (10:04→20:00)
--- NOTE | 2021-03-04 12:14 | P.DS ---
Admission Date: 03/03/21 Discharge Date: 03/04/21 Disposition: ROUTINE DISCHARGE Discharge Condition: FAIR Reason for Admission: missed dialysis - Problems (1) Missed dialysis Current Visit: No Status: Acute (2) Anemia in chronic kidney disease Current Visit: No Status: Chronic Qualifiers: Chronic kidney disease stage: on chronic dialysis Qualified Code(s): N18.6 - End stage renal disease; D63.1 - Anemia in chronic kidney disease; Z99.2 - Dependence on renal dialysis (3) End stage renal disease on dialysis Current Visit: No Status: Chronic (4) HTN (hypertension) Current Visit: No Status: Chronic Qualifiers: Hypertension type: primary hypertension Qualified Code(s): I10 - Essential (primary) hypertension Brief History of Present Illness: 35 yo woman with HTN and ESRD on HD MWF presented to the ED because she missed 4 days of dialysis sessions and developed abdominal swelling, SOB, CORRAL, and cough productive of thick yellow mucus. Denies fever, N/V/D. H/H 8.3, BUN 92, Cr 8.56, GFR 6, glu 136, trop 0.05. Chest x-ray showed no infiltrate. Patient not hypoxic. She was hospitalized for further management. Hospital Course: Patient admitted to the medical floor and nephrology consulted for hemodialysis. She underwent hemodialysis with no event. Blood pressure moderately controlled. Patient deemed stable for discharge. Vital Signs/Physical Exam: Temp Pulse Resp BP Pulse Ox 97.7 F 83 17 159/95 H 98 03/04/21 08:00 03/04/21 08:00 03/04/21 10:05 03/04/21 08:00 03/04/21 10:05 General: Alert, In no apparent distress Neck: JVD not distended Respiratory: Clear to auscultation bilaterally, Normal air movement Cardiovascular: No edema, Regular rate/rhythm, Normal S1 S2 Gastrointestinal: Soft and benign, Non-distended Musculoskeletal: No swelling Integumentary: No rashes Neurological: Normal strength at 5/5 x4 extr Laboratory Data at Discharge: WBC 6.80 K/uL (4.3-10.9) 03/04/21 05:16 Hgb 8.2 g/dL (12.0-15.0) L 03/04/21 05:16 Hct 24.0 % (36.0-45.0) L 03/04/21 05:16 Plt Count 267 K/uL (152-406) 03/04/21 05:16 Sodium 139 mmol/L (136-145) 03/04/21 05:14 Potassium 3.8 mmol/L (3.5-5.1) 03/04/21 05:14 BUN 88 mg/dL (7-18) H 03/04/21 05:14 Creatinine 8.37 mg/dL (0.55-1.3) H* 03/04/21 05:14 Glucose 113 mg/dL (74-106) H 03/04/21 05:14 Phosphorus 4.9 mg/dL (2.5-4.9) 03/04/21 05:14 Magnesium 2.6 mg/dL (1.8-2.4) H 03/04/21 05:14 Total Bilirubin 0.3 mg/dL (0.2-1.0) 03/04/21 05:14 AST 11 U/L (15-37) L 03/04/21 05:14 ALT 34 U/L (12-78) 03/04/21 05:14 Alkaline Phosphatase 68 U/L (45-117) 03/04/21 05:14 Troponin I 0.03 ng/mL (0.0-0.045) 03/04/21 05:14 Home Medications: Cholecalciferol (Vitamin D3) [Vitamin D 5,000 IU Cap*] 5,000 units PO DAILY 11/19/19 Doxazosin [Cardura*] 2 mg PO BID 11/19/19 calcitrioL [Rocaltrol] 2 tab PO DAILY 11/19/19 Hydrocodone 5/APAP 325 [[place] 5/325*] 1 tab PO Q4H PRN tab 11/23/19 Sevelamer Carbonate [Renvela*] 800 mg PO TIDWM #90 tablet 11/23/19 Carvedilol [Coreg] 25 mg PO BID #60 tablet 11/27/19 Nifedipine Xl [Procardia Xl*] 90 mg PO BID #180 tab 11/27/19 Ramipril [Altace] 10 mg PO DAILY #30 capsule 11/27/19 Spironolactone [Aldactone] 50 mg PO DAILY #30 tablet 11/27/19 Docusate [Colace Cap*] 100 mg PO BID #60 cap 11/15/20 Nepro Shake [Nepro*] 237 ml PO BID #60 can 11/15/20 Mannitol 25% [Mannitol*] 12.5 gm IV EVERY HD PRN vial 03/04/21 Diet: Renal Activity: Ad corby Followup: Sami Monge DO [Primary Care Provider] - 1 Week
[2021-03-04 12:33] VITALS: TEMP 98.1
[2021-03-04] MEDS: SEVELAMER CARBONATE 800 MG TABLET PO SCH ×3 (12:58→17:29)
[2021-03-04] MEDS ORDERED: levoFLOXacin 500 MG TAB PO ONE (13:00)
[2021-03-04] MEDS ORDERED: HYDROCODONE/APAP 5/325 MG TAB PO PRN (15:49)
[2021-03-04 21:03] VITALS: BP 165/89
[2021-03-06] MEDS ORDERED: levoFLOXacin 250 MG TAB PO SCH (09:00)
== END 2021-03-04 20:50 | disposition home or self-care (01) | DRG 291 ==
LOC: ER 17:56 → ERHOLD 23:22 → 2ND 03-04 01:00
PROVIDERS: ADMIT Internal Medicine; ATTEND Internal Medicine
PROC: 5A1D70Z Performance of Urinary Filtration, Intermittent, Less than 6 Hours Per Day (ICD-10-PCS; principal; 2021-03-04)
DX: I13.2 Hypertensive heart and chronic kidney disease with heart failure and with stage 5 chronic kidney disease, or end stage renal disease (principal); N18.6 End stage renal disease; I50.32 Chronic diastolic (congestive) heart failure; E46 Unspecified protein-calorie malnutrition; Z99.2 Dependence on renal dialysis; Z68.26 Body mass index [BMI] 26.0-26.9, adult; D63.1 Anemia in chronic kidney disease; L25.9 Unspecified contact dermatitis, unspecified cause; F17.210 Nicotine dependence, cigarettes, uncomplicated; Z20.822 Contact with and (suspected) exposure to COVID-19
CPT/HCPCS: 36415; 71045; 80048; 80053; 80076; 82947; 83735; 83880; 84100; 84484; 85025; 86850; 86900; 86901; 87070; 87205; 90935; 93005; 94760; 96374; 96375; 99285; J0360; J1644; J1940; J2270; J2405; Q5106; U0003

== ENCOUNTER 2021-05-11 04:21 | Emergency (ER) | payer OTHER ==
--- OUTSIDE RECORDS SUMMARY | 2021-05-11 04:26 | XMS REPORT | Continuity of Care Document ---
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 every 6 Medical (six) Branch hours as needed for Pain (scale 4-6) or Pain (scale 7-10). simethicone 2018-0 Yes 160mg Take 2 Uni vers 80 mg 7-03 tablets by ity of chewable 00:00: mouth [place] tablet 00 after Medical meals and Branch at bedtime as needed for Gas. chlorhexidi 2018-0 Yes 15mL Swish and U nivers ne 0.12 % 7-03 spit out ity of mouthwash 00:00: 15 mL 2 [place] 00 (two) Medical times Branch daily. docusate 2018- Yes 240mg Take 1 Univer s calcium 240 7-03 capsule by it y of mg capsule 00:00: mouth [place] 00 daily as Medical needed for Branch Constipati on. magnesium Yes 30mL Take 30 mL Un balta hydroxide 7-03 by mouth ity of 400 mg/5 mL 00:00: once daily [place] suspension 00 as needed Medi cinthia for Branch Constipati on. labetalol Yes 200mg Take 1 Unive rs 200 mg 7-03 tablet by ity of tablet 00:00: mouth 2 [place] 00 (two) Medical times Branch daily. 2018- Yes 1{tbl} Take 1 Unive rs vitamin 7-03 tablet by ity of w/FA tablet 00:00: mouth [place] 00 daily. Medical Branch ferrous Yes 325mg Take 1 Univers sulfate 325 7-03 tablet by ity of mg (65 mg 00:00: mouth 2 [place] iron) 00 (two) Medical tablet times Branch daily. HYDROcodone Yes 1{tbl} Take 1 Un balta -acetaminop 7-03 tablet by ity of hen 5-325 00:00: mouth [place] mg tablet 00 every 6 Medical (six) Branch hours as needed for Pain (scale 4-6) or Pain (scale 7-10). simethicone Yes 160mg Take 2 Uni vers 80 mg 7-03 tablets by ity of chewable 00:00: mouth [place] tablet 00 after Medical meals and Branch at bedtime as needed for Gas. chlorhexidi Yes 15mL Swish and U nivers ne 0.12 % 7-03 spit out ity of mouthwash 00:00: 15 mL 2 [place] 00 (two) Medical times Branch daily. docusate Yes 240mg Take 1 Univer s calcium 240 7-03 capsule by it y of mg capsule 00:00: mouth [place] 00 daily as Medical needed for Branch Constipati on. magnesium Yes 30mL Take 30 mL Un balta hydroxide 7-03 by mouth ity of 400 mg/5 mL 00:00: once daily [place] suspension 00 as needed Medi cinthia for Branch Constipati on. labetalol 2018-0 Yes 200mg Take 1 Unive rs 200 mg 7-03 tablet by ity of tablet 00:00: mouth 2 [place] 00 (two) Medical times Branch daily. Yes 1{tbl} Take 1 Unive rs vitamin 7-03 tablet by ity of w/FA tablet 00:00: mouth [place] 00 daily. Medical Branch ferrous 2017- Yes 325mg Take 1 Univers sulfate 325 7-03 tablet by ity of mg (65 mg 00:00: mouth 2 [place] iron) 00 (two) Medical tablet times Branch daily. HYDROcodone Yes 1{tbl} Take 1 Un balta -acetaminop 7-03 tablet by ity of hen 5-325 00:00: mouth [place] mg tablet 00 every 6 Medical (six) Branch hours as needed for Pain (scale 4-6) or Pain (scale 7-10). SELECT-OB + Yes TAKE 1 Univ ers DHA 29 mg 4-27 PACKET ity of iron-1 mg 00:00: DAILY [place] -250 [place] 00 DIRECTED Medical combo pack Branch SELECT-OB + Yes TAKE 1 Univ ers DHA 29 mg 4-27 PACKET ity of iron-1 mg 00:00: DAILY [place] -250 [place] 00 DIRECTED Medical combo pack Branch SELECT-OB + Yes TAKE 1 Univ ers DHA 29 mg 4-27 PACKET ity of iron-1 mg 00:00: DAILY [place] -250 [place] 00 DIRECTED Medical combo pack Branch SELECT-OB + Yes TAKE 1 Univ ers DHA 29 mg 4-27 PACKET ity of iron-1 mg 00:00: DAILY [place] -250 [place] 00 DIRECTED Medical combo pack Branch SELECT-OB + Yes TAKE 1 Univ ers DHA 29 mg 4-27 PACKET ity of iron-1 mg 00:00: DAILY [place] -250 [place] 00 DIRECTED Medical combo pack Branch SELECT-OB + Yes TAKE 1 Univ ers DHA 29 mg 4-27 PACKET ity of iron-1 mg 00:00: DAILY [place] -250 [place] 00 DIRECTED Medical combo pack Branch SELECT-OB + Yes TAKE 1 Univ ers DHA 29 mg 4-27 PACKET ity of iron-1 mg 00:00: DAILY [place] -250 [place] 00 DIRECTED Medical combo pack Branch SELECT-OB + Yes TAKE 1 Univ ers DHA 29 mg 4-27 PACKET ity of iron-1 mg 00:00: DAILY [place] -250 [place] 00 DIRECTED Medical combo pack Branch SELECT-OB + Yes TAKE 1 Univ ers DHA 29 mg 4-27 PACKET ity of iron-1 mg 00:00: DAILY [place] -250 [place] 00 DIRECTED Medical combo pack Branch SELECT-OB + Yes TAKE 1 Univ ers DHA 29 mg 4-27 PACKET ity of iron-1 mg 00:00: DAILY [place] -250 [place] 00 DIRECTED Medical combo pack Branch SELECT-OB + Yes TAKE 1 Univ ers DHA 29 mg 4-27 PACKET ity of iron-1 mg 00:00: DAILY [place] -250 [place] 00 DIRECTED Medical combo pack Branch Immunizations Ordered Filled Immunization Date Status Comments Sour e Immunization Name Name TDAP 2017-12-06 Completed University of 00:00:00 [facility] TDAP 2017-12-06 Completed University of 00:00:00 [facility] TDAP 2017-12-06 Completed University of 00:00:00 [facility] TDAP 2017-12-06 Completed University of 00:00:00 [facility] TDAP 2017-12-06 Completed University of 00:00:00 [facility] TDAP 2017-12-06 Completed University of 00:00:00 [facility] TDAP 2017-12-06 Completed University of 00:00:00 [facility] TDAP 2017-12-06 Completed University of 00:00:00 [facility] TDAP 2017-12-06 Completed University of 00:00:00 [facility] TDAP 2017-12-06 Completed University of 00:00:00 [facility] TDAP 2017-12-06 Completed University of 00:00:00 [facility] TDAP 2015-12-12 Completed University of 00:00:00 [facility] TDAP 2015-12-12 Completed University of 00:00:00 [facility] TDAP 2015-12-12 Completed University of 00:00:00 [facility] TDAP 2015-12-12 Completed University of 00:00:00 [facility] TDAP 2015-12-12 Completed University of 00:00:00 [facility] TDAP 2015-12-12 Completed University of 00:00:00 [facility] TDAP 2015-12-12 Completed University of 00:00:00 [facility] TDAP 2015-12-12 Completed University of 00:00:00 [facility] TD 2015-12-12 Completed University of 00:00:00 [facility] TDAP 2015-12-12 Completed University of 00:00:00 [facility] TDAP 2015-12-12 Completed University of 00:00:00 [facility] Vital Signs Vital Name Observation Time Observation Value Comments Source HEIGHT 2020-10-07 11:13:00 159.2 cm WEIGHT 2020-10-07 11:13:00 66.225 kg HEIGHT 2020-10-07 11:13:00 159.2 cm WEIGHT 2020-10-07 11:13:00 66.225 kg Systolic blood 2020-10-07 11:13:00 202 mm[Hg] [facility] Diastolic blood 2020-10-07 11:13:00 133 mm[Hg] [facility] Heart rate 2020-10-07 11:13:00 73 /min [facility] Body temperature 2020-10-07 11:13:00 36.61 Lois [facility] Respiratory rate 2020-10-07 11:13:00 20 /min [facility] Body height 2020-10-07 11:13:00 159.2 cm [facility] Body weight 2020-10-07 11:13:00 66.225 kg [facility] BMI 2020-10-07 11:13:00 26.13 kg/m2 [facility] Procedures Procedure Date / Time Performing Clinician Source Performed URINE CULTURE 2020-10-07 Loli Barrongideon [facility] - 10:08:00 [facility] URINALYSIS W/ MICROSCOPIC 2020-10-[address] [facility] - 10:08:00 [facility] HEMOGLOBIN A1C 2020-10-07 Loli Barrongideon [facility] - 10:07:00 [facility] CBC W/PLT COUNT & AUTO 2020-10-07 Anderson Denisesidra [facility] S [facility] - DIFFERENTIAL 10:07:00 [facility] CYTOMEGALOVIRUS ANTIBODY, 2020-10-07 Anderson, Bhamidipati [facility] IGG 10:07:00 [facility] CYTOMEGALOVIRUS ANTIBODY, 2020-10-07 Anderson, Bhamidipati [facility] - IGM 10:07:00 [facility] COMPREHENSIVE METABOLIC 2020-10-07 Anderson, Bhamidipati [facility] - PANEL 10:07:00 [facility] EBV ANTIBODY, IGM 2020-10-07 Anderson, [facility]ipati [facility] - 10:07:00 [facility] GAMMA GLUTAMYL TRANSFERASE 2020-10-07 Anderson, Bhamidipati [facility] - (GGT) 10:07:00 [facility] HEPATITIS B SURFACE ANTIBODY 2020-10-07 Anderson, Bhamidipati [facility] - 10:07:00 [facility] HEPATITIS B SURFACE ANTIGEN 2020-10-07 Anderson, Bhamidipati [facility] - 10:07:00 [facility] HEPATITIS B CORE ANTIBODY, 2020-10-07 Anderson, Bhamidipati [facility] - IGM 10:07:00 [facility] HEPATITIS C ANTIBODY 2020-10-07 Anderson, Bhamidipati [facility] - 10:07:00 [facility] HC LAB HIV-1 AG W/HIV-1&2 AB 2020-10-07 Anderson, Bhamidipati [facility] - 10:07:00 [facility] PHOSPHORUS 2020-10-07 Anderson, Bhamidipati [facility] - 10:07:00 [facility] PTH, INTACT 2020-10-07 Anderson, Bhamidipati [facility] - 10:07:00 [facility] PT/APTT 2020-10-07 Anderson, Bhamidipati [facility] - 10:07:00 [facility] PROTHROMBIN TIME/INR 2020-10-07 Anderson, Bhamidipati [facility] - 10:07:00 [facility] RPR 2020-10-07 Anderson, Bhamidipati [facility] - 10:07:00 [facility] URIC ACID 2020-10-07 Anderson, Bhamidipati [facility] - 10:07:00 [facility] VARICELLA ZOSTER ANTIBODY, 2020-10-07 Anderson, Bhamidipati [facility] - IGG 10:07:00 [facility] ANTITHROMBIN III 2020-10-07 Anderson, Bhamidipati [facility] - 10:07:00 [facility] FACTOR 5 LEIDEN PCR 2020-10-07 Anderson, Bhamidipati [facility] - (THROMBOTIC RISK) 10:07:00 [facility] HC LAB PROTHROMBIN FACTOR II 2020-10-07 Anderson, Bhamidipati [facility] - 10:07:00 [facility] PROTEIN C ACTIVITY 2020-10-07 Anderosn, Bhamidipati [facility] - 10:07:00 [facility] PROTEIN S ACTIVITY 2020-10-07 Anderson, Bhamidipati [facility] - 10:07:00 [facility] PHOSPHATIDYLSERINE ABS (IGG, 2020-10-07 Anderson, Bhamidipati [facility] - IGM) 10:07:00 [facility] DIRECT AHG (JOHANN)/DIRECT 2020-10-07 Anderson, Bhamidipati [facility] - OTTO 10:07:00 [facility] ABORH, MANUAL 2020-10-07 Anderson, Bhamidipati [facility] - 10:07:00 [facility] US PELVIS WITH DOPPLER 2020-09-25 Anderson, [facility] - 12:09:00 [facility] US ABDOMEN COMPLETE 2020-09-25 Andersno, Bhamidipati [facility] - 11:38:00 [facility] XR CHEST 2 VIEWS 2020-09-25 Anderson, Bhamidipati [facility] - 10:24:00 [facility] 2D ECHO W/ DOPPLER 2020-09-25 Anderson, Bhamidipati [facility] - (CW/PW/COLOR) 08:44:17 [facility] ECG 12-LEAD 2020-09-25 Anderson, Bhamidipati [facility] - 08:24:21 [facility] T SPOT TB 2020-09-25 Anderson, Bhamidipati [facility] - 08:06:00 [facility] FLOW PRA CLASS I WITH REFLEX 2020-09-25 Anderson, Bhamidipati [facility] - TO ANTIBODY SPECIFICITY 08:05:00 [facility] FLOW PRA CLASS II WITH 2020-09-25 Anderson, [facility]ipati [facility] REFLEX TO ANTIBODY 08:05:00 [facility] SPECIFICITY HLA TYPING CI 2020-09-25 Anderson, Bhamidipati [facility] - 08:05:00 [facility] HLA TYPING CII 2020-09-25 Anderson, Bhamidipati [facility] - 08:05:00 [facility] LIPID PANEL 2020-09-25 Anderson, Bhamidipati [facility] - 08:05:00 [facility] BLOOD TYPING, AUTOMATED 2020-09-25 Anderson, Bhamidipati [facility] - 08:05:00 [facility] TRANSPLANT/EXT [facility]ER [facility] 2019-11-28 Doctor Unassigned, [facility] 05:01:00 [place] [facility] Plan of Care Planned Activity Planned Date Details Comments Source Future Scheduled 2027-12-07 DTAP/TDAP/TD VACCINES [facility] Test 00:00:00 (4 - Td) [code = [facility] ter DTAP/TDAP/TD VACCINES (4 - Td)] Future Scheduled 2023-09-[address] [facility] - Test 00:00:00 (procedure) [code = [facility] [id number]] Future Scheduled 2021-02-11 INFLUENZA VACCINE (#1) [facility] Test 00:00:00 [code = [facility] Medical Ce nter VACCINE (#1)] Future Scheduled 2020-06-[address] [facility] - Test 00:00:00 (12+) [code = [facility] DEPRESSION SCREENING (12+)] Future Scheduled 2020-02-12 Medicare IPPE (WELCOME [facility] - Test 00:00:00 TO MEDICARE) [code = [facility] Medicare IPPE (WELCOME TO MEDICARE)] Future Scheduled [address] [facility] - Test 00:00:00 malignant neoplasm of [facility] cervix (procedure) [code = 746102397] Future Scheduled 1998 COVID-19 VACCINE (1) [facility] [...] Date/Time Type Type Clinicians Facility Department ID 2020-06-03 Inpatient Isaac, Bill HCACL DAYS [id number] [facility] 12:00:00 [id number] [facility] 2020-03-25 Inpatient EL Isaac, Bill [facility]AC[facility] DAYS [id number] [facility] 07:00:00 [id number] [facility] 2020-03-04 Inpatient Isaac, Bill [facility] DAYS [id number] [facility] 10:00:00 [id number] [facility] 2020-02-19 Inpatient Isaac, Bill [facility] DAYS [id number] [facility] 09:00:00 [facility] 2020-02-14 Inpatient Isaac, Bill [facility] DAYS [id number] [facility] 08:30:00 [id number] [facility] 2020-12-23 2020-12-23 Outpatient R [facility] [id number] Univers [facility] 2020-12-23 Outpatient R [facility] [id number] Univers 09:00:00 09:00:00 [id number] [facility] 2020-12-23 2020-12-23 Outpatient ANDERSON, [facility] [id number] [facility] 00:00:00 00:00:00 BHAMIDIPATI 2020-12-23 2020-12-23 Outpatient EL [facility] [id number] [facility] 00:00:00 00:00:00 2020-12-23 2020-12-23 Outpatient EL [facility] [id number] [facility] 00:00:00 00:00:00 2020-11-182020-11-18 Outpatient [facility] [id number] Univers 12:30:00 12:30:00 [id number] ity of [facility] 2020-11-18 2020-11-18 Outpatient R CHANNING, [facility] [id number] Univers 08:00:00 08:00:00 CLEARY ity o [facility] 2020-11-18 2020-11-18 Telephone [facility] [id number] Univers 00:00:00 00:00:00 Bee covarrubias MULTISPEC [id number] ity of IALTY [id number] [facility] [id number] [facility] [address] [facility] 2020-11-14 2020-11-14 [place] [facility] [id number] 00:00[facility]00 00:00:00 [facility] 2020-11-14 2020-11-14 Social [facility] [id number] 00:00:00 00:00:00 Work [facility] 2020-11-13 2020-11-13 [facility] [id number] Univers 00:00:00 00:00:00 Management Bee covarrubias MULTISPEC [id number] ity of IALTY [id number] [facility] [id number] [address] [facility] 2020-11-13 2020-11-13 [facility] [id number] 00:00:00 00:00:00 Management Bee covarrubias N MULTISPEC [id number] IALTY [id number] [place] [id number] [place] [address] [facility] 2020-11-06 2020-11-06 Outpatient R HEBER, [facility] [id number] Univers 09:00:00 09:00:00 DEE [id number] ity o f [facility] 2020-11-06 2020-11-06 Outpatient R AKINSIPE, [facility] [id number] Univers 08:30:00 08:30:00 DEE moreno o eduardo [facility] 2020-11-06 2020-11-06 [facility] [id number] Univers 00:00:00 00:00:00 Management Bee covarrubias MULTISPEC [id number] ity of IALTY [id number] [facility] [id number] [facility] AND [address] [facility] 2020-11-06 2020-11-06 [facility] [id number] 00:00:00 00:00:00 Management Bee covarrubias MULTISPEC [id number] IALTY [id number] [place] [id number] [place] [address] [facility] 2020-11-04 2020-11-04 Telephone Gino [facility] [id number] 00:00:00 00:00:00 [facility] 2020-10-31 2020-10-31 Telephone Gino [facility] [id number] 00:00:00 00:00:00 [facility] 2020-10-27 2020-10-27 Outpatient R AKINSIPE, [facility] [id number] Univers 08:15:00 08:15:00 DEE [id number] josh o [facility] 2020-10-22 2020-10-22 Documentat Juan [facility] [id number] 00:00:00 00:00:00 ion Fior Pretty [facility] 2020-10-16 2020-10-16 Telephone Fariba [facility] [id number] 00:00:00 00:00:[address] [facility] 2020-10-16 2020-10-16 Tanya Sorensen [facility] [id number] 00:00:00 00:00:00 Only [facility] 2020-10-14 2020-10-14 Telephone [facility] [id number] 00:00:00 00:00:00 [facility] 2020-10-14 2020-10-14 Documentat [facility] [id number] 00:00:00 00:00:00 ion [facility] 2020-10-14 2020-10-14 Telephone [facility] [id number] 00:00:00 00:00:00 [facility] 2020-10-12 2020-10-12 Documentat [facility] [id number] 00:00:00 00:00:00 ion Laura Mortensen [facility] 2020-10-07 2020-10-07 Evaluation Noah Barronkata [facility] [id number] [facility] 09:54:41 10:24:41 Jordana Jung [facility] 2020-10-07 2020-10-07 Evaluation Anderson Noah Arguellokata [facility] [id number] [facility] 09:53:43 10:23:43 Rena Nassar [facility] 2020-10-07 2020-10-07 Orders EL Anderson [facility] [id number] 09:53:01 10:08:01 Only [facility] 2020-10-07 2020-10-07 Outpatient [facility]H [facility] [id number] [facility] 00:00:00 00:00:00 2020-10-07 2020-10-07 Outpatient [facility] [id number] [facility] 00:00:00 00:00:00 2020-10-07 2020-10-07 Outpatient EL [facility] [id number] [facility] 00:00:00 00:00:00 2020-10-07 2020-10-07 Telephone [facility] [id number] 00:00:00 00:00:00 [facility] 2020-10-06 2020-10-06 Telephone Malinda [facility] [id number] 00:00:00 00:00:00 [facility] 2020-10-06 2020-10-06 Telephone Malinda [facility] [id number] 00:00:00 00:00:00 [facility] 2020-10-06 2020-10-06 Documentat Malinda [facility] [id number] 00:00:00 00:00:00 ion [facility] 2020-10-02 2020-10-02 Outpatient SLEH [facility] [id number] [facility] 00:00:00 00:00:00 2020-10-02 2020-10-02 Outpatient SLEH [facility] [id number] [facility] 00:00:00 00:00:00 2020-10-02 2020-10-02 Outpatient EL [facility] [id number] [facility] 00:00:00 00:00:00 2020-10-02 2020-10-02 Telephone Demetris [facility] [id number] 00:00:00 00:00:00 [facility] 2020-10-02 2020-10-02 Telephone Balta [facility] [id number] 00:00:00 00:00:00 [facility] 2020-09-25 2020-09-25 [facility] [id number] [facility] 10:07:04 23:59:00 [facility] 2020-09-25 2020-09-25 [facility] [id number] [facility] 10:06:56 10:06:56 [facility] 2020-09-25 2020-09-25 [facility], [facility] [id number] 10:06:49 10:06:49 Encounter [facility] 2020-09-25 2020-09-25 [facility], [facility] [id number] 08:10:48 10:05:00 Encounter [facility] 2020-09-25 2020-09-25 [facility], [facility] [id number] 08:00:00 08:09:00 Encounter [facility] 2020-09-25 2020-09-25 Outpatient ANDERSON, [facility]H [facility] [id number] [facility] 00:00:00 00:00:00 [facility] 2020-09-25 2020-09-25 Outpatient EL [facility] [id number] [facility] 00:00:00 00:00:00 2020-09-25 2020-09-25 Outpatient ANDERSON, [facility]H [facility] [id number] [facility] 00:00:00 00:00:00 [facility] 2020-09-25 2020-09-25 Outpatient ANDERSON, SLEH [facility]H [id number] [facility] 00:00:00 00:00:00 [facility] 2020-09-25 2020-09-25 Outpatient ANDERSON, SLEH SLEH [id number] [facility] 00:00:00 00:00:00 [facility] 2020-09-25 2020-09-25 Outpatient ANDERSON, SLEH SLE [id number] [facility] 00:00:00 00:00:00 [facility] 2020-09-04 2020-09-04 [facility] [id number] Univers 10:06:00 23:59:00 Encounter Mohsen [facility] [id number] [facility] [id number] Cecilio as [id number] [place] [address] Branch 2020-09-04 2020-09-04 Outpatient [facility] [id number] Univers 00:00:00 00:00:00 CLEARY ity o f [facility] 2020-09-04 2020-09-04 [facility] [id number] Univers 00:00:00 00:00:00 (Out) Mohsen Mortensen MULTISPEC [id number] ity of IALTY [id number] [facility] [id number] [address] [facility] 2020-09-03 2020-09-03 Telephone [facility] [id number] Univers 00:00:00 00:00:00 Bee covarrubias MULTISPEC [id number] ity of IALTY [id number] [facility] [id number] [address] [facility] 2020-09-03 2020-09-03 Telephone Demetris [facility] [id number] 00:00:00 00:00:00 [facility] 2020-09-03 2020-09-03 Telephone [facility] [id number] 00:00:00 00:00:00 Bee covarrubias MULTISPEC [id number] IALTY [id number] [place] [id number] [place] [address] DIABETES [facility] 2020-06-26 2020-06-26 Documentat Juan [facility] [id number] 00:00:00 00:00:00 ion [facility] 2020-06-26 2020-06-26 Abstract Juan [facility] [id number] 00:00:00 00:00:00 [facility] 2020-06-23 2020-06-23 Abstract Bay [facility] [id number] 00:00:00 00:00:00 [facility] 2020-06-23 2020-06-23 Documentat [place] [facility] [id number] 00:00:00 00:00:00 [facility] 2020-06-17 2020-06-17 Documentat [place] [facility] [id number] 00:00:00 00:00:00 ion [facility] 2020-06-17 2020-06-17 Abstract Bay [facility] [id number] 00:00:00 00:00:00 [facility] 2020-06-17 2020-06-17 Documentat [place] [facility] [id number] 00:00:00 00:00:00 [facility] 2020-06-16 2020-06-16 [facility] [id number] 00:00:00 00:00:00 [facility] 2020-06-16 2020-06-16 Telephone [place] [facility] [id number] 00:00:00 00:00:00 [facility] 2019-11-28 2019-11-28 Orders Doctor KELLY [id number] Univers 00:00:00 00:00:00 Only Unassigned, [place] [id number] ity of [place] [facility] [id number] Cecilio as [id number] [address] 2017-11-21 2017-11-21 Outpatient Joshua DORSEY [facility] RAD [id number] -20 [facility] 15:00:00 15:00:00 DOMINIK [id number] ity o f [facility] Results Test Description Test Time Test [...] (IGM) (test code = syndrome (APS) lita 0353341) clinical-pathol ogic correlation that includesa clinical event (e.g. thrombosi s, pregnancyloss, thrombocytopeni a) and persistent positiveantipho spholipid antibodies (IgM or IgG JENSEN>40 MPL/GPL,IgM or IgG anti-b2GPI antibodies ora lupus anticoagulant). International consensusguidel radha for APS suggest waiting at least 12weeks before retestin g to confirm antibodypersist ence. The [facility] L[facility] onalCollaborating Clinics immunologicalcl assification criteria for [facility] lupuserythemato vishal (SLE) include testing for [...] (test code = RACQUEL) Performing Lab EZ [facility] [address] [place] [address] Daija Green MD, PhD, KRISHNA [facility] HospitalProthrombin Gene [id number] 16:22:00 Test Item Value Reference Interpretation Comments Range PROTHROMBIN GENE NEGATIVE RESULT: G20 210A VARIANT NOT ANALYSIS (test DETECTED code = 4619621) Interpretation See Below INTERPRETATIO N: This (test code = individual is n egative 5914848) (normal) for e Q41348Uxarketv in the Prothrombin/Fac tor II gene. Increased risk ofthrombophilia can be caused by a morgan iety of genetic and non-geneticfact ors not screened for by this assay. Laboratory test ing supervised and results monitored by Carol Steinberg,Ph.D., D ABG, [facility] [employer]. The Q10535D mut ation [DE202998.1: g. 03852S>A (c.*97G>A)] in theProthrombin/ Factor II gene is the sec ond most common inherite d riskfactor for thrombosis occurring in approximately 2 % of Caucasians.Pres ence of the mutation is ass ociated with an elevation of prothrombin levels to about 30% above normal in heter ozygotes and to70% above nor mal in homozygotes. Pr othrombin (H73664P) mutat ions are detected by amp lification [...] local Ques t Diagnostics'gen etic counselor or [facility] [phone] ([phone]) forassistance with interpreta tion of these results. This t est was developed and i ts analytical performancechar acteristics have been deter mined by [employer] [facility] [place]. It has not been cleared or appr elva bythe FDA. This assay has been validated pursu ant to the CLIAregulations and is used for clinical pu rposes. RACQUEL (test code = Performing Lab RACQUEL) EZ [facility] [address] [place] [address] Daija Green MD, PhD, KRISHNA [facility] HospitalFactor 5 Leiden PCR (thrombotic risk)2020-10-11 13:14:00 Test Item Value Reference Interpretation Comments Range Factor V Leiden NEGATIVE FACTOR V LEI DEN (R506Q) Mutation (test VARIANT NOT D ETECTED code = 9925073) Interpretation See Below INTERPRETATIO N: This (test code = individual is n egative 2039893) (normal) for th e Factor VLeiden (R506Q) [...] Ques t Diagnosticsgene tic counselor or call [employer] ([phone]) for assistancewith interpretation of these results. This t est was developed and i ts analytical performancechar acteristics have been deter mined by [employer] [facility] [place]. It has not been cleared or appr elva bythe FDA. This assay has been validated pursu ant to the CLIAregulations and is used for clinical pu rposes. RACQUEL (test code = Performing Lab RACQUEL) EZ [facility] [address] [place] [address] Daija Green MD, PhD, KRISHNA [facility] HospitalProtein S [id number] 03:55:00 Test Item Value Reference Range Interpretation Comments Protein S 95 See_Comment Decreased leve ls of Functional (test Protein S a ctivity code = 6394348) may be found in patients withhereditary deficiency, war farin therapy, vitami n k deficiency, dominick er disease,DIC, or recent thrombos is as well as after surgery. In addition, it ma y bephysiologic i n . An elevated Protei n S activity is not clinicallysigni fican t. Only deficie ncies are associated with an increased thromboticrisk. [Automated mess age] The system [employer] generated this result transmit liya reference range : 60 - 140 % normal. The reference range was not used to interpret this result as normal/abnormal . RACQUEL (test code = Performing Lab RACQUEL) EZ [facility] [address] [place] [address] Daija Green MD, PhD, KRISHNA [facility] HospitalUrine [id number] 07:38:00 Test Item Value Reference Range Interpretation Comments Result (test code = See comment 6463-4) RACQUEL (test code = >100,000 col/mL enteric RACQUEL) organisms of >2 types. No further workup performed. Multiple organisms suggestive of colonization or contamination. Repeat collection recommended.40-49,000 col/mL skin beth [facility] HospitalURINE [id number] 07:38:00 Test Item Value Reference Range Interpretation Comments CULTURE (BEAKER) (test code = See comment 1095) >100,000 col/mL enteric organisms of >2 types. No further workup performed. Multiple organismssuggestive of colonization or contamination. Repeat collection recommended.40-49,000 col/mL skin [id number] 14:26:00 Test Item Value Reference Range Interpretation Comments RPR (test code = 61120-4) Nonreactive Nonreactive Lab Interpretation (test code = Normal 21633-4) [facility] HospitalRPR2021-04-28 14:26:00 Test Item Value Reference Range Interpretation Comments RPR SCREEN (BEAKER) (test code = Nonreactive Nonreactive 420) Varicella Zoster Antibody, [id number] 14:12:00 Test Item Value Reference Range Interpretation Comments Varicella IgG (test 2.8 code = 10554-7) RACQUEL (test code = RACQUEL) VARICELLA ZOSTER RESULT INTERPRETATIONS: <=0.8 Al Nonreactive: Presumed non-immune to VZV 0.9-1.0 Al Equivocal >=1.1 Al Reactive: Presumed immune to VZV [facility] HospitalVARICELLA ZOSTER ANTIBODY, [id number] 14:12:00 Test Item Value Reference Range Interpretation Comments VARICELLA ZOSTER IGG (AL) (BEAKER) 2.8 (test code = 3197) VARICELLA ZOSTER RESULT INTERPRETATIONS: <=0.8 Al Nonreactive: Presumed non-immune to VZV 0.9-1.0 Al Equivocal >=1.1 Al Reactive: Presumed immune to VZVCytomegalovirus antibody, [id number] 13:54:00 Test Item Value Reference Range Interpretation Comments CYTOMEGALOVIRUS, IGG Positive Negative, A (test code = 3429) Equivocal RACQUEL (test code = RACQUEL) CMV IgG Result Interpretation: </= 0.8 Al Negative 0.9-1.0 Al Equivocal >/=1.1 Al Positive Lab Interpretation (test Abnormal code = 04567-7) [facility] HospitalEBV-VCA antibody, [id number] 13:54:00 Test Item Value Reference Range Interpretation Comments ALETA BOWLING VIRAL Positive Negative, A CAPSID ANTIGEN IGG (test Equivocal code = 3415) RACQUEL (test code = RACQUEL) Aleta Bowling Viral Capsid Antigen IgG Result Interpretation: </= 0.8 Al Negative 0.9-1.0 Al Equivocal >/= 1.1 Al Positive Lab Interpretation (test Abnormal code = 82030-8) [facility] HospitalEBV-VCA antibody, [id number] 13:54:00 Test Item Value Reference Range Interpretation Comments ALETA BOWLING VIRAL Negative Negative, CAPSID ANTIGEN IGM (test Equivocal code = 3418) RACQUEL (test code = RACQUEL) Aleta Bowling Viral Capsid Antigen IgM Result Interpretation: </= 0.8 Al Negative 0.9-1.0 Al Equivocal >/= 1.1 Al Positive Lab Interpretation (test Normal code = 14784-5) [facility] HospitalCytomegalovirus antibody, [id number] 13:54:00 Test Item Value Reference Range Interpretation Comments CMV IGM (test code = Negative Negative, 3437) Equivocal RACQUEL (test code = RACQUEL) CMV IgM Result Interpretation: </= 0.8 Al Negative 0.9-1.0 Al Equivocal >/= 1.1 Al Positive Lab Interpretation (test Normal code = 89145-3) [facility] HospitalCYTOMEGALOVIRUS ANTIBODY, [id number] 13:54:00 Test Item Value Reference Range Interpretation Comments CYTOMEGALOVIRUS, IGG (BEAKER) Positive Negative, Equivocal A (test code = 3429) CMV IgG Result Interpretation: </= 0.8 Al Negative 0.9-1.0 Al Equivocal >/=1.1 Al PositiveCYTOMEGALOVIRUS ANTIBODY, [id number] 13:54:00 Test Item Value Reference Range Interpretation Comments CYTOMEGALOVIRUS IGM ANTIBODY Negative Negative, Equivocal (BEAKER) (test code = 3437) CMV IgM Result Interpretation: </= 0.8 Al Negative 0.9-1.0 Al Equivocal >/= 1.1 Al PositiveEBV ANTIBODY, [id number] 13:54:00 Test Item Value Reference Range Interpretation [...] Activity (test code = 108.0 % 70-130 63129-6) Lab Interpretation (test code = Normal 13751-4) [facility] HospitalPROTEIN C [id number] 10:42:00 Test Item Value Reference Range Interpretation Comments PROTEIN C ACTIVITY (BEAKER) (test 108.0 % 70.0-130.0 code = 582) Hemoglobin [id number] 16:04:00 Test Item Value Reference Range Interpretation Comments Hemoglobin A1C (test code = 4548-4) 4.6 % 4.3-6.1 Lab Interpretation (test code = Normal 83783-9) [facility] HospitalHEMOGLOBIN [id number] 16:04:00 Test Item Value Reference Range Interpretation Comments HEMOGLOBIN A1C (BEAKER) (test code = 4.6 % 4.3-6.1 368) Hepatitis B surface [id number] 14:44:00 Test Item Value Reference Interpretation Comments Range Hep B S Ab (test 1462.6 See_Comment H [Automated code = 41667-9) message] The system which generated this result transmitted reference range : <8.0 mIU/mL. Th e reference range was not used to interpret this result as normal/abnormal . RACQUEL (test code = Wellness Program Manager ID - RACQUEL) NOELGOperator ID - ROSVIK Lab Interpretation Abnormal (test code = 01314-1) [facility] HospitalHEPATITIS B SURFACE [id number] 14:44:00 Test Item Value Reference Range Interpretation Comments HEPATITIS B SURFACE ANTIBODY 1462.6 mIU/mL <8.0 H (BEAKER) (test code = 647) Wellness Program Manager ID - ROSIANGOperator ID - ROSIANGUrinalysis, [id number] 14:42:00 Test Item Value Reference Range Interpretation Comments Color, UA (test code Yellow = 5778-6) Clarity, UA (test Clear code = 5767-9) Specific [place], UA 1.012 1.001-1.035 (test code = 5811-5) pH, UA (test code = 8.0 5.0-8.0 5803-2) Protein, UA (test 70 mg/dL Negative A code = 01207-8) Glucose, UA (test Negative Negative code = 365) Ketones, UA (test Negative Negative code = 2514-8) Bilirubin, UA (test Negative Negative code = 73481-9) Blood, UA (test code Negative Negative = 64637-0) Nitrite, UA (test Negative Negative code = 5802-4) Leukocytes, UA (test Negative Negative code = 5799-2) Urobilinogen, UA 0.2 mg/dL 0.2-1 (test code = 69231-0) RBC, UA (test code = <1 See_Comment [Autom ated 25622-3) message] The system which generated this result [...] 4 See_Comment [Automate d (test code = 20739-8) messag e] The system which generated this result transmit liya reference range : /HPF. The reference range was not used to interpret this result as normal/abnormal . Hyaline Casts, UA 1 See_Comment [Automate d (test code = 82170-2) messag e] The system which generated this result transmit liya reference range : /LPF. The reference range was not used to interpret this result as normal/abnormal . Specimen Source (test code = 2795) RACQUEL (test code = RACQUEL) Wellness Program Manager ID - [auto]Wellness Program Manager ID - tech Lab Interpretation Abnormal (test code = 82634-5) [facility] HospitalURINALYSIS W/ [id number] 14:42:00 Test Item Value Reference Range Interpretation [...] /LPF 514) SOURCE(BEAKER) (test code = 2795) Wellness Program Manager ID - [auto]Wellness Program Manager ID - techHepatitis B surface [id number] 14:30:00 Test Item Value Reference Range Interpretation Comments HBsAg Screen (test code Nonreactive Nonreactive = 5195-3) RACQUEL (test code = RACQUEL) Specimen is considered negative for HBsAg. Lab Interpretation (test Normal code = 40528-1) [facility] HospitalHepatitis B core antibody, [id number] 14:30:00 Test Item Value Reference Range Interpretation Comments Hep B C IgM (test code = Nonreactive Nonreactive 92368-7) RACQUEL (test code = RACQUEL) Wellness Program Manager ID - ROSIANG Lab Interpretation (test Normal code = 34302-4) [facility] HospitalHepatitis C [id number] 14:30:00 Test Item Value Reference Range Interpretation Comments Hepatitis C Ab (test Nonreactive Nonreactive code = 55643-0) RACQUEL (test code = RACQUEL) Wellness Program Manager ID - NOELG Lab Interpretation (test Normal code = 56918-7) [facility] HospitalHIV-1 Antigen with HIV-1/2 [id number] 14:30:00 Test Item Value Reference Range Interpretation Comments HIV-1 Antigen with HIV Nonreactive Nonreactive 1&2 Antibody (test code = 00091-0) RACQUEL (test code = RACQUEL) Wellness Program Manager ID - BJ Lab Interpretation (test Normal code = 42247-7) [facility] HospitalHEPATITIS B SURFACE [id number] 14:30:00 Test Item Value Reference Range Interpretation Comments HEPATITIS B SURFACE ANTIGEN (2) Nonreactive Nonreactive (BEAKER) (test code = 2585) Specimen is considered negative for HBsAg.HEPATITIS B CORE ANTIBODY, IGM 2020-10-07 14:30:00 Test Item Value Reference Range Interpretation Comments HEPATITIS B CORE IGM ANTIBODY Nonreactive Nonreactive (BEAKER) (test code = 645) Wellness Program Manager ID - WILMEREPATITIS C [id number] 14:30:00 Test Item Value Reference Range Interpretation Comments HEPATITIS C ANTIBODY (BEAKER) Nonreactive Nonreactive (test code = 367) Wellness Program Manager ID - WILMERIV-1 ANTIGEN WITH HIV-1/2 [id number] 14:30:00 Test Item Value Reference Range Interpretation Comments HIV-1 ANTIGEN WITH HIV 1\T\2 Nonreactive Nonreactive ANTIBODY (2) (BEAKER) (test code = 2586) Wellness Program Manager ID - NOELGAntithrombin [id number] 14:04:00 Test Item Value Reference Range Interpretation Comments Antithrombin III (test code = 39975-4) 94.0 % 80-120 Lab Interpretation (test code = Normal 67598-0) [facility] HospitalANTITHROMBIN [id number] 14:04:00 Test Item Value Reference Range Interpretation Comments ANTITHROMBIN III ACTIVITY (BEAKER) 94.0 % 80.0-120.0 (test code = 711) Direct AHG (JOHANN)/Direct [id number] 13:47:00 Test Item Value Reference Range Interpretation Comments Direct AHG-IGG (test code = 1006-6) NEGATIVE Direct AHG-C3B, C3D (test code = NEGATVIE 1003-3) [facility] HospitalComprehensive metabolic [id number] 13:42:00 Test Item Value Reference Range Interpretation Comments Protein, Total (test 6.9 See_Comment [Autom ated code = 2885-2) message] The system which generated this result transmit liya reference range : 6.0 - 8.3 gm/dL . The reference range was not u sed to interpret th is result as normal/abnormal . Albumin (test code = 3.9 g/dL 3.5-5 76567-0) Alkaline Phosphatase 65 U/L 40-150 (test code = 6768-6) Total Bilirubin (test 0.3 mg/dL 0.2-1.2 code = 1975-2) Sodium (test code = 140 meq/L 258-285 3271-2) Potassium (test code 4.2 meq/L 3.5-5.1 = 2823-3) Chloride (test code = 102 meq/L 98-107 2075-0) CO2 (test code = 23 meq/L 22-29 2028-9) BUN (test code = 39 mg/dL 7-21 H 3094-0) Creatinine (test code 9.59 mg/dL 0.57-1.25 H = 2160-0) Glucose (test code = 91 mg/dL 70-105 2345-7) Calcium (test code = 8.5 mg/dL 8.4-10.2 33901-5) AST (test code = 16 U/L 5-34 1920-8) ALT (test code = 11 U/L 6-55 1742-6) EGFR (test code = 6 mL/min/1.73 [place] [address]-3) NOT ACCURATE CREATININE CLEARANCE IN PREDICTING GLOMERULAR FILTRATION RATE . ESTIMATED GFR I S NOT APPLICABLE FOR DIALYSIS PATIEN TS. RACQUEL (test code = RACQUEL) Wellness Program Manager ID - ROSIANG Lab Interpretation Abnormal (test code = 54318-1) [facility] HospitalCOMPREHENSIVE METABOLIC [id number] 13:42:00 Test Item Value Reference Range Interpretation [...] S NOT APPLICABLE FOR DIALYSIS PATIEN TS. Wellness Program Manager ID - ROSIANGGamma Glutamyl Transferase (GGT)2020-10-07 13:37:00 Test Item Value Reference Range Interpretation Comments GGT (test code = 2324-2) 21 U/L 9-64 RACQUEL (test code = RACQUEL) Wellness Program Manager ID - ROSIANG Lab Interpretation (test Normal code = 50920-7) [facility] HospitalPhosphorus2021-04-27 13:37:00 Test Item Value Reference Range Interpretation Comments Phosphorus (test code = 5.7 mg/dL 2.3-4.7 H 2777-1) RACQUEL (test code = RACQUEL) Wellness Program Manager ID - NOELG Lab Interpretation (test Abnormal code = 37672-9) [facility] HospitalUric [id number] 13:37:00 Test Item Value Reference Range Interpretation Comments Uric Acid (test code = 8.4 mg/dL 2.6-7.2 H 3084-1) RACQUEL (test code = RACQUEL) Wellness Program Manager ID - ROSMARGIG Lab Interpretation (test Abnormal code = 13867-2) [facility] HospitalPHOSPHORUS2021-04-27 13:37:00 Test Item Value Reference Range Interpretation Comments PHOSPHORUS (BEAKER) (test code = 5.7 mg/dL 2.3-4.7 H 604) Wellness Program Manager ID - ROSIANGURIC [id number] 13:37:00 Test Item Value Reference Range Interpretation Comments URIC ACID (BEAKER) (test code = 8.4 mg/dL 2.6-7.2 H 773) Wellness Program Manager ID - NOELGGAMMA GLUTAMYL TRANSFERASE (GGT)2020-10-07 13:37:00 Test Item Value Reference Range Interpretation Comments GAMMA GLUTAMYL TRANSFERASE (BEAKER) 21 U/L 9-64 (test code = 364) Wellness Program Manager ID - NOELGPTH, [id number] 13:36:00 Test Item Value Reference Range Interpretation Comments PTH (test code = 2731-8) 466.5 pg/mL 8.5-72.5 H RACQUEL (test code = RACQUEL) Wellness Program Manager ID - BJ Lab Interpretation (test Abnormal code = 37494-3) [facility] HospitalPTH, [id number] 13:36:00 Test Item Value Reference Range Interpretation Comments PARATHYROID HORMONE INTACT 466.5 pg/mL 8.5-72.5 H (BEAKER) (test code = 577) Wellness Program Manager ID - ROSIANGPT/xALR6161-93-43 13:34:00 Test Item Value Reference Interpretation Comments Range Protime (test code = 13.9 See_Comment [Autom ated 5902-2) message] The system which generated this result transmitted reference range : 11.9 - 14.2 seconds. The reference range was not used to interpret this result as normal/abnormal . INR (test code = 1.11 See_Comment [Automated 3261-6) message] The system which generated this result transmitted reference range : <=5.90. The reference range was not used to interpret this result as normal/abnormal . PTT (test code = 37.1 See_Comment H [Automated 79225-0) message] The system which generated this result [...] valves. Lab Interpretation Abnormal (test code = 12675-0) [facility] HospitalPT/[id number] 13:34:00 Test Item Value Reference Range Interpretation [...] is2.5-3.5 for patients wiht mechanical heart valves.Prothrombin time/[id number] 13:33:00 Test Item Value Reference Interpretation Comments Range Protime (test code = 13.9 See_Comment [Autom ated 5902-2) message] The system which generated this result transmitted reference range : 11.9 - 14.2 seconds. The reference range was not used to interpret this result as normal/abnormal . INR (test code = 1.11 See_Comment [Automated 0351-6) message] The system which generated this result [...] valves. Lab Interpretation Normal (test code = 15364-1) [facility] HospitalABORH, [id number] 13:33:00 Test Item Value Reference Range Interpretation Comments ABO Grouping (test code = 2588) O Rh Factor (test code = 2589) POS [facility] HospitalPROTHROMBIN TIME/[id number] 13:33:00 Test Item Value Reference Range Interpretation Comments PROTIME (BEAKER) 13.9 seconds 11.9-14.2 (test code = 759) INR (BEAKER) (test 1.11 See_Comment [Automat ed message] code = 370) The system [employer] generated this result transmitted ref erence range: [...] heart valves.CBC with platelet count + automated [id number] 13:05:00 Test Item Value Reference Range Interpretation Comments WBC (test code = 6690-2) 6.4 See_Comment [A utomated message] The system [employer] generated this result transmitted ref erence range: 3.5 - 10 .5 K/L. The refe rence range was not u sed to interpret this result as normal/abnor mal. RBC (test code = 789-8) 2.95 See_Comment L [Au tomated message] The system [employer] generated this result transmitted ref erence range: 3.93 - 5 .22 M/L. The refe rence range was not u sed to interpret this result as normal/abnor mal. MCHC (test code = 786-4) 31.4 See_Comment L [A utomated message] The system [employer] generated this result transmitted ref erence range: [...] See_Comment [Aut omated message] 777-3) The system [employer] generated this result transmitted ref erence range: 150 - 45 0 K/CU MM. The referen ce range was not u sed to interpret this result as normal/abnor mal. MPV (test code = 9.7 fL 9.4-12.3 82599-9) nRBC (test code = 413) 0 See_Comment [Aut omated message] The system [employer] generated this result transmitted ref erence range: [...] See_Comment [Aut omated message] 670) The system [employer] generated this result transmitted ref erence range: 1.56 - 6 .13 K/L. The refe rence range was not u sed to interpret this result as normal/abnor mal. # Lymphs (test code = 1.43 See_Comment [Auto mated message] 414) The system [employer] generated this result transmitted ref erence range: 1.18 - 3 .74 K/L. The refe rence range was not u sed to interpret this result as normal/abnor mal. # Monos (test code = 0.48 See_Comment H [Autom ated message] 415) The system [employer] generated this result transmitted ref erence range: 0.24 - 0 .36 K/L. The refe rence range was not u sed to interpret this result as normal/abnor mal. # Eos (test code = 416) 0.28 See_Comment [Au tomated message] The system [employer] generated this result transmitted ref erence range: 0.04 - 0 .36 K/L. The refe rence range was not u sed to interpret this result as normal/abnor mal. # Baso (test code = 417) 0.04 See_Comment [A utomated message] The system [employer] generated this result transmitted ref erence range: 0.01 - 0 .08 K/L. The refe rence range was not u sed to interpret this result as normal/abnor mal. Immature 0 % 0-1 Granulocytes-Relative (test code = 2801) Lab Interpretation (test Abnormal code = 97007-0) [facility] W/PLT COUNT & AUTO [id number] 13:05:00 Test Item Value Reference Range Interpretation [...] (BEAKER) (test code = 2801) T SPOT [id number] 14:01:00 Test Item Value Reference Range Interpretation Comments T-SPOT TB (BEAKER) (test code = Negative 1683) NEG CONTROL SPOT COUNT (BEAKER) 0 (test code = 1684) PANEL A SPOT (BEAKER) (test code = 0 1685) PANEL B SPOT (BEAKER) (test code = 0 1686) POS CONTROL SPOT CT (BEAKER) (test 0 code = 1687) SCAN RESULT (test code = 6803651) See Scanned ReportECG 12 [id number] 13:44:09Interface, External Ris In - 09/25/2020 1:44 PM CDTVentricular Rate 75 BPMAtrial Rate 75 BPMP-R Interval 154 msQRS Duration 86 msQ-T Interval 442 msQTC Calculation(Bazett) 493 msP [place] 73 degreesR [place] 83 degreesT [place] 64 degreesNormal sinus rhythmRight atrial enlargementProlonged QTAbnormal ECGNo previous ECGs availableConfirmed by MD Guzman Roberto ([id number]) on 09/25/2020 1:44:07 [facility], WITH [id number] 13:22:00Reason for Exam:->to assess iliac vesselsKidney Transplant Evaluation [facility] : 1985 Sex: FFINAL REPORT [...] Verified Date/Time: 09/25/2020 13:22:46 US pelvis with ocianfr4607-02-11 13:22:00Interface, External Ris In - 09/25/2020 1:24 [...] Cindy Wright MDReport Verified Date/Time: 09/25/2020 13:22:46 [facility]US, ABDOMINAL, [id number] 13:01:00Reason for Exam:->[facility]idney Trans[facility] EvaluationCOMM[facility]Name: [facility] RODRIGES : 1985 Sex: F FINAL [...] CINDY WRIGHT MD on 101:01 PMUS abdomen tvotbqke8510-16-59 13:01:00Interface, External Ris In - 09/25/2020 1:03 [...] Cindy Gonzalez MDReport Verified Date/Time: 09/25/2020 13:01:08 [facility] HospitalLIPID [id number] 12:42:00 Test Item Value Reference Range Interpretation [...] Borderline 130-159 High 160-189 Very High >=190 Wellness Program Manager ID - [id number] Echo W/Doppler(CW/PW/Color)2020-09-25 10:35:55Ejection FractionSLEH ECHO HEARTLAB MKCKESSON CPACSInterface, External Ris In - 09/25/2020 10:36 AM CDTTransthoracic Echocardiography Report (TTE) Demographics Patient Name MARIANA RODRIGES Dateof Study 09/25/2020 RAMONA MEYER Gender Female Visit Number [id number] Race Black Room Number OP Number Date of 1985 Referring Anderson Zamora Physician Bunny 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 Atrial septal position continuously bows daid-mg-uwwxu, consistent with elevated LA pressure . Gtuq-qn-ourobjin t ricuspid regurgitation. Estimated peak systolic PA [...] Atrial Septum Atrial septal position continuously bows vuvy-ly-sveoi, consistent with elevated LA pressure . Aortic Valve Normal AoV structure. There is trace aortic regurgitation. Mitral Valve Mild MV leaflet thickening. At least moderate eccentric posteriorly directed mitral regurgitation.Tricuspid Valve TV structure is normal. Xmur-bo-zawaqwzs tricuspid regurgitation. Estimated peak systolic PA pressure [...] 1.39 cm LV FS: 34.3 % LVEDV Mckeno's:120.06 ml LVESV Mckeon's:46.7 ml LVEDVI: 72 ml/m [...] CO: 6.17 l/min LVOT CI: 3.72 l/min/m^2[facility], [facility]ST, 2 [id number] 10:28:00Reason for Exam:->Kidney Transplant EvaluationCOMMUNITY [facility]ACHName: MARIANA R[facility]RIGES : 1985 Sex: F FINAL [...] consolidated pneumonia,pleural effusion or pneumothorax. Signed: Zina Pierre MDRepdenise Verified Date/Time: 09/25/2020 10:28:23 Reading Location: [facility] Reading Room [address] [place] [address] XR chest 2 views 2020-09-25 10:28:00Interface, External [...] pneumonia, pleural effusion or pneumothorax. Signed: Zina Pierre MDReport Verified Date/Time: 09/25/2020 10:28:23 Reading Location: [facility] Reading Room [address] [address] [facility] [id number] 14:34:00 Test Item Value Reference Range Interpretation Comments UR HCG QUAL (test code = HCGQLU) NEGATIVE NEGATIVE COVID 19 Asymptomatic IH [id number] 12:06:00 Test Item Value Reference Range Interpretation Comments COVID 19 Asymptomatic Negative Negative A nega tive result is IH AG (test code = presumpti ve and should COVNONPUIAG) be confirmedwit h an FDA authorized mole cular assay, if vanesa pal forpatient aman talbot.A positive result does not rule out co-inf [...] COMMENTS: If not done this admissionBASIC METABOLIC [id number] 11:25:00 Test Item Value Reference Range Interpretation [...] = 8.3 mg/dL 8.0-10.5 N CA) PROTHROMBIN [id number] 11:22:00 Test Item Value Reference Range Interpretation [...] o prevent recurre nt infarct). CBC W/AUTO [id number] 11:20:00 Test Item Value Reference Range Interpretation [...] NO = MDIFF) - XR CHEST 1 [id number] 11:15:00 [facility] : 1985 Sex: F FAX: Abimael Gallardo MD [phone] [place]: [address] St: REG Name: MARIANA RODRIGES [facility] [place] : 1985 Age/S: 35/F [address] [place] [address] Unit #: [id number] Loc: [place] [address] Phys: Abimael Isaac MD Acct: [id number] Dis Date: Status: REG [facility] PHONE #: [phone] Exam Date: 06/03/2020 1052 FAX #: [phone] Reason: PRE-OP EXAMS: CPT CODE: [id number] XR CHEST 1 V [id number] EXAM: XR CHEST 1 VIEW DATE: 06/03/2020 9:40 AM : 1985; Age: 35 years y/o Female INDICATION: AVF malfunction, PRE-OP COMPARISON: March 25, 2020 TECHNIQUE: AP chest. IMPRESSION: Lines, tubes and hardware: Stable. Heart, mediastinum and lungs: Heart appears borderline enlarged. No consolidation or pleural effusion is seen. No pneumothorax. SL: [id number] at [id number] Reported and signed by: Marcy Mnotes D.O. CC: Abimael Isaac MD Technologist: RT Faheem(Joshua) Trnscrd Date/Time/By: 06/03/2020 (1110) : By: [email or web address] Orig Print D/T: S: 06/03/2020 (6980) PAGE 1 Signed ReportCBC W/AUTO [id number] 11:13:00 Test Item Value Reference Range Interpretation [...] DIFF REQUIRED (test code = MDIFF) PROTHROMBIN [id number] 11:57:00 Test Item Value Reference Range Interpretation [...] o prevent recurre nt infarct). BASIC METABOLIC [id number] 11:39:00 Test Item Value Reference Range Interpretation [...] 9.9 mg/dL 8.0-10.5 N CA) HCG SERUM [id number] 11:23:00 Test Item Value Reference Range Interpretation Comments HCG SERUM QUAL (test code = SERUM NEGATIVE NEGATIVE HCGQL) CBC W/AUTO [id number] 11:17:00 Test Item Value Reference Range Interpretation [...] (test code NO = MDIFF) CBC W/AUTO [id number] 11:15:00 Test Item Value Reference Range Interpretation [...] code = MDIFF) - XR CHEST 1 [id number] 11:04:00 FAX: Abimael Gallardo MD [phone] [place]: St: REG Name: MARIANA RODRIGES [facility] : 1985 Age/S: 34/F [address] [place] [address] Unit#: [id number] Loc: [place] [address] Phys: Abimael Isaac MD Acct: [id number] Dis Date: Status: REG [facility] PHONE #: [phone] Exam Date: 03/25/20201102 FAX #: [phone] Reason: PRE OP EXAMS: CPT CODE: [id number] XR CHEST 1 V 65436 PROCEDURE: CHEST SINGLE VIEW INDICATION: PRE OP;ESRD COMPARISON: March 2014 FINDINGS: TUBES AND LINES: Tunneledright hemodialysis catheter tip at the level of mid superior vena cava. CHEST: The lungs are clear. The pleural, cardiomediastinal silhouette, and bony thorax are normal. IMPRESSION: No acute findings. SL: [id number] Reported and signed by: Josesito Tolentino M.D. CC: Abimael Isaac MD Technologist: More LamaRT(R) Trnscrd Date/Time/By: 03/25/2020 (3711) : By: Christian Orig Print D/T: S: 03/25/2020 (6037) PAGE 1 Signed ReportCOVID 19 Asymptomatic IH [id number] 10:59:00 Test Item Value Reference Range Interpretation Comments COVID 19 Asymptomatic Negative Negative A nega tive result is IH AG (test code = presumpti ve and should COVNONPUIAG) be confirmedwit h an FDA authorized mole cular assay, if vanesa pal forpatient aman talbot.A positive result does not rule out co-inf [...]
--- NOTE | 2021-05-11 05:53 | ER ---
Nurse's Notes [facility] Name: Nely Quinones Age: 36 yrs Sex: Female : 1985 Arrival Date: 05/11/2021 Time: 04:26 Bed 15 Private MD: Diagnosis: Presentation: 05/11 05:03 Chief complaint: Patient states: Pain to general body x 2 days, chest pain, abdominal lp1 swelling that began yesterday, vomited x 5; Reports last dialysis on Tue05/06/21. Coronavirus screen: At this time, the client does not indicate any symptoms associated with coronavirus-19. Ebola Screen: No symptoms or risks identified at this time. Initial Sepsis Screen: Does the patient meet any 2 criteria? No. Patient's initial sepsis screen is negative. Does the patient have a suspected source of infection? No. Patient's initial sepsis screen is negative. Risk Assessment: Do you want to hurt yourself or someone else? Patient reports no desire to harm self or others. Onset of symptoms was May 11, 2021. 05:03 Method Of Arrival: Wheelchair lp1 05:03 Acuity: LORENA 3 lp1 Triage Assessment: 05:29 General: Appears uncomfortable, Behavior is cooperative, appropriate for age, restless. kd3 Pain: Complains of pain in abdomen. GI: Bowel sounds present X 4 quads. Reports lower abdominal pain, upper abdominal pain. 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 - Social history:: Smoking status: Patient denies any tobacco usage or history of. Screenin:28 Abuse screen: Denies threats or abuse. Denies injuries from another. Nutritional kd3 screening: No deficits noted. Tuberculosis screening: No symptoms or risk factors identified. Fall Risk None identified. Assessment: 05:29 GI: Abdomen is distended. kd3 05:52 Reassessment: pt left the ED. bb Vital Signs: 05:03 BP 127 / 78; Pulse 85; Resp 20; Temp 99(O); Pulse Ox 98% on R/A; Weight 64.41 kg (R); lp1 Height 5 ft. 2 in. (157.48 cm); Pain 10/10; 05:30 BP 124 / 77; Pulse 87; Resp 17; Pulse Ox 97% on R/A; kd3 05:03 Body Mass Index 25.97 (64.41 kg, 157.48 cm) lp1 ED Course: 04:26 Patient arrived in ED. bp1 05:02 Júnior Rick MD is Attending Physician. 7 05:06 Triage completed. lp1 05:06 Arm band placed on right wrist. lp1 05:28 Nini Pathak, RN is Primary Nurse. kd3 05:28 Patient has correct armband on for positive identification. Call light in reach. Side kd3 rails up X 1. Administered Medications: No medications were administered Outcome: 05:52 Patient left the ED. bb Signatures: Alondra You RN RN bb Adrienne Patel RN RN 1 Ludivina Avendaño bp1 Júnior Rick MD MD [facility] Nini Pathak, CHELA RN 3
[2021-05-11 05:57] VITALS: TEMP 99
[2021-05-11 05:59] VITALS: BP 124/77; O2SAT 97
== END 2021-05-11 05:52 | disposition left against medical advice (07) ==
LOC: ER 04:21
DX: R07.9 Chest pain, unspecified (principal); Z53.21 Procedure and treatment not carried out due to patient leaving prior to being seen by health care provider
CPT/HCPCS: 99281

== ENCOUNTER 2021-05-26 09:59 | Emergency (ER) | payer OTHER ==
--- OUTSIDE RECORDS SUMMARY | 2021-05-26 10:07 | XMS REPORT | Continuity of Care Document ---
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 [facility] RAD [id number] Univers 15:00:00 15:00:00 DOMINIK [id number] ity o f [facility] Results Test Description Test Time Test Comments [...] (IGM) (test code = syndrome (APS) lita 3514489) clinical-pathol ogic correlation that includesa clinical event (e.g. thrombosi s, pregnancyloss, thrombocytopeni a) and persistent positiveantipho spholipid antibodies (IgM or IgG JENSEN>40 MPL/GPL,IgM or IgG anti-b2GPI antibodies ora lupus anticoagulant). International consensusguidel radha for APS suggest waiting at least 12weeks before retestin g to confirm antibodypersist ence. The Systemic Lupus Internati onalCollaborating Clinics immunologicalcl assification criteria for [facility] lupuserythemato vishal (SLE) include testing for [...] (test code = RACQUEL) Performing Lab [facility] [address] [place] [address] Daija Green MD, PhD, KRISHNA [facility] CenterProthrombin Gene [id number] 16:22:00 Test Item Value Reference Interpretation Comments Range PROTHROMBIN GENE NEGATIVE RESULT: G20 210A VARIANT NOT ANALYSIS (test DETECTED code = 5342717) Interpretation See Below INTERPRETATIO N: This (test code = individual is n egative 0912776) (normal) for th e O15491Ruulnyez in the Prothrombin/Fac tor II gene. Increased risk ofthrombophilia can be caused by a morgan iety of genetic and non-geneticfact ors not screened for by this assay. Laboratory test ing supervised and results monitored by Carol Steinberg,Ph.D., D ABG, [facility]. The H63190M mut ation [QF884985.1: g. 12773D>A (c.*97G>A)] in theProthrombin/ Factor II gene is the sec ond most common inherite d riskfactor for thrombosis occurring in approximately 2 % of Caucasians.Pres ence of the mutation is ass ociated with an elevation of prothrombin levels to about 30% above normal in heter ozygotes and to70% above nor mal in homozygotes. Pr othrombin (P82259I) mutat ions are detected by amp lification oftheir selecte d gene regions by poly merase chain reaction (PCR) andfluorescent probe hybridization t o the targeted region , followed bymelting curve analysis with a real Partender e PCR system. Although rare,f alse positive or false negati ve results may occur. All resultsshould be interpreted in context of clinical findin gs, relevanthistory , and other laboratory data . Health care providers, plea se contact your local Ques t Diagnostics'gen etic counselor or carol abraham [phone] ([phone]) forassistance with interpreta tion of these results. This t est was developed and i ts analytical performancechar acteristics have been deter mined by [facility] [place]. It has not been cleared or appr elav bythe FDA. This assay has been validated pursu ant to the CLIAregulations and is used for clinical pu rposes. RACQUEL (test code = Performing Lab RACQUEL) [facility] [address] [facility] [place] [address] Daija Green MD, PhD, KRISHNA [facility] CenterFactor 5 Leiden PCR (thrombotic risk)2020-10-11 13:14:00 Test Item Value Reference Interpretation Comments Range Factor V Leiden NEGATIVE FACTOR V LEI DEN (R506Q) Mutation (test VARIANT NOT D ETECTED code = 9770841) Interpretation See Below INTERPRETATIO N: This (test code = individual is n egative 6152577) (normal) for th e Factor VLeiden (R506Q) [...] plea se contact your local Ques t [facility] tic counselor or call [employer] [facility] ([phone]) for assistancewith interpretation of these results. This t est was developed and i ts analytical performancechar acteristics have been deter mined by [facility] [place]. It has not been cleared or appr elva bythe FDA. This assay has been validated pursu ant to the CLIAregulations and is used for clinical pu rposes. RACQUEL (test code = Performing Lab RACQUEL) [facility] [address] [place] [address] Daija Green MD, PhD, KRISHNA [facility] CenterProtein S [id number] 03:55:00 Test Item Value Reference Range Interpretation Comments Protein S 95 See_Comment Decreased leve ls of Functional (test Protein S a ctivity code = 6972258) may be found in patients withhereditary deficiency, war farin therapy, vitami n k deficiency, dominick er disease,DIC, or recent thrombos is as well as after surgery. In addition, it ma y bephysiologic i n . An elevated Protei n S activity is not clinicallysigni fican t. Only deficie ncies are associated with an increased thromboticrisk. [Automated mess age] The system [employer] generated this result transmit liya reference range : 60 - 140 % normal. The reference range was not used to interpret this result as normal/abnormal . RACQUEL (test code = Performing Lab RACQUEL) [facility] [address] [place] [address] Daija Green MD, PhD, KRISHNA [facility] CenterUrine [id number] 07:38:00 Test Item Value Reference Range Interpretation Comments Result (test code = See comment 6463-4) RACQUEL (test code = >100,000 col/mL enteric RACQUEL) organisms of >2 types. No further workup performed. Multiple organisms suggestive of colonization or contamination. Repeat collection recommended.40-49,000 col/mL skin beth [facility] CenterURINE [id number] 07:38:00 Test Item Value Reference Range Interpretation Comments CULTURE (BEAKER) (test code = See comment 1095) >100,000 col/mL enteric organisms of >2 types. No further workup performed. Multiple organismssuggestive of colonization or contamination. Repeat collection recommended.40-49,000 col/mL skin [id number] 14:26:00 Test Item Value Reference Range Interpretation Comments RPR (test code = 25612-2) Nonreactive Nonreactive Lab Interpretation (test code = Normal 88691-7) [facility] [id number] 14:26:00 Test Item Value Reference Range Interpretation Comments RPR SCREEN (BEAKER) (test code = Nonreactive Nonreactive 420) Varicella Zoster Antibody, [id number] 14:12:00 Test Item Value Reference Range Interpretation Comments Varicella IgG (test 2.8 code = 34543-1) RACQUEL (test code = RACQUEL) VARICELLA ZOSTER RESULT INTERPRETATIONS: <=0.8 Al Nonreactive: Presumed non-immune to VZV 0.9-1.0 Al Equivocal >=1.1 Al Reactive: Presumed immune to VZV [facility] CenterVARICELLA ZOSTER ANTIBODY, [id number] 14:12:00 Test Item Value Reference Range Interpretation Comments VARICELLA ZOSTER IGG (AL) (BEAKER) 2.8 (test code = 3197) VARICELLA ZOSTER RESULT INTERPRETATIONS: <=0.8 Al Nonreactive: Presumed non-immune to VZV 0.9-1.0 Al Equivocal >=1.1 Al Reactive: Presumed immune to VZVCytomegalovirus antibody, [id number] 13:54:00 Test Item Value Reference Range Interpretation Comments CYTOMEGALOVIRUS, IGG Positive Negative, A (test code = 3429) Equivocal RACQUEL (test code = RACQUEL) CMV IgG Result Interpretation: </= 0.8 Al Negative 0.9-1.0 Al Equivocal >/=1.1 Al Positive Lab Interpretation (test Abnormal code = 50372-3) [facility] CenterEBV-VCA antibody, [id number] 13:54:00 Test Item Value Reference Range Interpretation Comments ALETA BOWLING VIRAL Positive Negative, A CAPSID ANTIGEN IGG (test Equivocal code = 3415) RACQUEL (test code = RACQUEL) Aleta Bowling Viral Capsid Antigen IgG Result Interpretation: </= 0.8 Al Negative 0.9-1.0 Al Equivocal >/= 1.1 Al Positive Lab Interpretation (test Abnormal code = 32691-1) [facility] CenterEBV-VCA antibody, [id number] 13:54:00 Test Item Value Reference Range Interpretation Comments ALETA BOWLING VIRAL Negative Negative, CAPSID ANTIGEN IGM (test Equivocal code = 3418) RACQUEL (test code = RACQUEL) Aleta Bowling Viral Capsid Antigen IgM Result Interpretation: </= 0.8 Al Negative 0.9-1.0 Al Equivocal >/= 1.1 Al Positive Lab Interpretation (test Normal code = 64400-8) [facility] CenterCytomegalovirus antibody, [id number] 13:54:00 Test Item Value Reference Range Interpretation Comments CMV IGM (test code = Negative Negative, 3437) Equivocal RACQUEL (test code = RACQUEL) CMV IgM Result Interpretation: </= 0.8 Al Negative 0.9-1.0 Al Equivocal >/= 1.1 Al Positive Lab Interpretation (test Normal code = 59665-7) [facility] CenterCYTOMEGALOVIRUS ANTIBODY, [id number] 13:54:00 Test Item Value Reference Range Interpretation Comments CYTOMEGALOVIRUS, IGG (BEAKER) Positive Negative, Equivocal A (test code = 3429) CMV IgG Result Interpretation: </= 0.8 Al Negative 0.9-1.0 Al Equivocal >/=1.1 Al PositiveCYTOMEGALOVIRUS ANTIBODY, [id number] 13:54:00 Test Item Value Reference Range Interpretation Comments CYTOMEGALOVIRUS IGM ANTIBODY Negative Negative, Equivocal (BEAKER) (test code = 3437) CMV IgM Result Interpretation: </= 0.8 Al Negative 0.9-1.0 Al Equivocal >/= 1.1 Al PositiveEBV ANTIBODY, [id number] 13:54:00 Test Item Value Reference Range Interpretation [...] Activity (test code = 108.0 % 70-130 61813-4) Lab Interpretation (test code = Normal 93302-5) [facility] CenterPROTEIN C [id number] 10:42:00 Test Item Value Reference Range Interpretation Comments PROTEIN C ACTIVITY (BEAKER) (test 108.0 % 70.0-130.0 code = 582) Hemoglobin [id number] 16:04:00 Test Item Value Reference Range Interpretation Comments Hemoglobin A1C (test code = 4548-4) 4.6 % 4.3-6.1 Lab Interpretation (test code = Normal 36165-7) [facility] CenterHEMOGLOBIN [id number] 16:04:00 Test Item Value Reference Range Interpretation Comments HEMOGLOBIN A1C (BEAKER) (test code = 4.6 % 4.3-6.1 368) Hepatitis B surface [id number] 14:44:00 Test Item Value Reference Interpretation Comments Range Hep B S Ab (test 1462.6 See_Comment H [Automated code = 29342-3) message] The system which generated this result transmitted reference range : <8.0 mIU/mL. e reference range was not used to interpret this result as normal/abnormal . RACQUEL (test code = Chief Of Field Operations ID - RACQUEL) ROSIANGOperator ID - ROSIANG Lab Interpretation Abnormal (test code = 37714-9) [facility] CenterHEPATITIS B SURFACE [id number] 14:44:00 Test Item Value Reference Range Interpretation Comments HEPATITIS B SURFACE ANTIBODY 1462.6 mIU/mL <8.0 H (BEAKER) (test code = 647) Chief Of Field Operations ID - ROSIANGOperator ID - ROSIANGUrinalysis, [id number] 14:42:00 Test Item Value Reference Range Interpretation Comments Color, UA (test code Yellow = 5778-6) Clarity, UA (test Clear code = 5767-9) Specific [place], UA 1.012 1.001-1.035 (test code = 5811-5) pH, UA (test code = 8.0 5.0-8.0 5803-2) Protein, UA (test 70 mg/dL Negative A code = 14743-1) Glucose, UA (test Negative Negative code = 365) Ketones, UA (test Negative Negative code = 2514-8) Bilirubin, UA (test Negative Negative code = 54477-8) Blood, UA (test code Negative Negative = 19308-1) Nitrite, UA (test Negative Negative code = 5802-4) Leukocytes, UA (test Negative Negative code = 5799-2) Urobilinogen, UA 0.2 mg/dL 0.2-1 (test code = 97632-2) RBC, UA (test code = <1 See_Comment [Autom ated 68695-0) message] The system which generated this result [...] 4 See_Comment [Automate d (test code = 80874-5) messag e] The system which generated this result transmit liya reference range : /HPF. The reference range was not used to interpret this result as normal/abnormal . Hyaline Casts, UA 1 See_Comment [Automate d (test code = 28758-5) messag e] The system which generated this result transmit liya reference range : /LPF. The reference range was not used to interpret this result as normal/abnormal . Specimen Source (test code = 2795) RACQUEL (test code = RACQUEL) Chief Of Field Operations ID - [auto]Chief Of Field Operations ID - tech Lab Interpretation Abnormal (test code = 76669-5) [facility] CenterURINALYSIS W/ [id number] 14:42:00 Test Item Value Reference Range Interpretation [...] /LPF 514) SOURCE(BEAKER) (test code = 2795) Chief Of Field Operations ID - [auto]Chief Of Field Operations ID - techHepatitis B surface [id number] 14:30:00 Test Item Value Reference Range Interpretation Comments HBsAg Screen (test code Nonreactive Nonreactive = 5195-3) RACQUEL (test code = RACQUEL) Specimen is considered negative for HBsAg. Lab Interpretation (test Normal code = 91719-7) [facility] CenterHepatitis B core antibody, [id number] 14:30:00 Test Item Value Reference Range Interpretation Comments Hep B C IgM (test code = Nonreactive Nonreactive 90280-8) RACQUEL (test code = RACQUEL) Chief Of Field Operations ID - NOEL Lab Interpretation (test Normal code = 45349-8) [facility] CenterHepatitis C [id number] 14:30:00 Test Item Value Reference Range Interpretation Comments Hepatitis C Ab (test Nonreactive Nonreactive code = 38178-7) RACQUEL (test code = RACQUEL) Chief Of Field Operations ID - NOEL Lab Interpretation (test Normal code = 93132-3) [facility] CenterHIV-1 Antigen with HIV-1/2 [id number] 14:30:00 Test Item Value Reference Range Interpretation Comments HIV-1 Antigen with HIV Nonreactive Nonreactive 1&2 Antibody (test code = 20400-9) RACQUEL (test code = RACQUEL) Chief Of Field Operations ID - NOEL Lab Interpretation (test Normal code = 36494-9) [facility] CenterHEPATITIS B SURFACE [id number] 14:30:00 Test Item Value Reference Range Interpretation Comments HEPATITIS B SURFACE ANTIGEN (2) Nonreactive Nonreactive (BEAKER) (test code = 2585) Specimen is considered negative for HBsAg.HEPATITIS B CORE ANTIBODY, IGM 2020-10-07 14:30:00 Test Item Value Reference Range Interpretation Comments HEPATITIS B CORE IGM ANTIBODY Nonreactive Nonreactive (BEAKER) (test code = 645) Chief Of Field Operations ID - ROSBAYSTATE WING HOSPITALEPATITIS C [id number] 14:30:00 Test Item Value Reference Range Interpretation Comments HEPATITIS C ANTIBODY (BEAKER) Nonreactive Nonreactive (test code = 367) Chief Of Field Operations ID - NOELGHIV-1 ANTIGEN WITH HIV-1/2 [id number] 14:30:00 Test Item Value Reference Range Interpretation Comments HIV-1 ANTIGEN WITH HIV 1\T\2 Nonreactive Nonreactive ANTIBODY (2) (MELONIE) (test code = 2586) Chief Of Field Operations ID - NOELGAntithrombin [id number] 14:04:00 Test Item Value Reference Range Interpretation Comments Antithrombin III (test code = 87277-4) 94.0 % 80-120 Lab Interpretation (test code = Normal 01164-4) [facility] CenterANTITHROMBIN [id number] 14:04:00 Test Item Value Reference Range Interpretation Comments ANTITHROMBIN III ACTIVITY (MELONIE) 94.0 % 80.0-120.0 (test code = 711) Direct AHG (JOHANN)/Direct [id number] 13:47:00 Test Item Value Reference Range Interpretation Comments Direct AHG-IGG (test code = 1006-6) NEGATIVE Direct AHG-C3B, C3D (test code = NEGATVIE 1003-3) [facility] CenterComprehensive metabolic [id number] 13:42:00 Test Item Value Reference Range Interpretation Comments Protein, Total (test 6.9 See_Comment [Autom ated code = 2885-2) message] The system which generated this result transmit liya reference range : 6.0 - 8.3 gm/dL . The reference range was not u sed to interpret th is result as normal/abnormal . Albumin (test code = 3.9 g/dL 3.5-5 49180-3) Alkaline Phosphatase 65 U/L 40-150 (test code = 6768-6) Total Bilirubin (test 0.3 mg/dL 0.2-1.2 code = 1975-2) Sodium (test code = 140 meq/L 093-587 5369-2) Potassium (test code 4.2 meq/L 3.5-5.1 = 2823-3) Chloride (test code = 102 meq/L 98-107 2075-0) CO2 (test code = 23 meq/L 22-29 8-9) BUN (test code = 39 mg/dL 7-21 H 3094-0) Creatinine (test code 9.59 mg/dL 0.57-1.25 H = 2160-0) Glucose (test code = 91 mg/dL 70-105 2345-7) Calcium (test code = 8.5 mg/dL 8.4-10.2 94409-5) AST (test code = 16 U/L 5-34 1920-8) ALT (test code = 11 U/L 6-55 1742-6) EGFR (test code = 6 mL/min/1.73 [place] [address]-0) NOT ACCURATE CREATININE CLEARANCE IN PREDICTING GLOMERULAR FILTRATION RATE . ESTIMATED GFR I S NOT APPLICABLE FOR DIALYSIS PATIEN TS. RACQUEL (test code = RACQUEL) Chief Of Field Operations ID - ROSMARGIG Lab Interpretation Abnormal (test code = 70739-5) [facility] CenterCOMPREHENSIVE METABOLIC [id number] 13:42:00 Test Item Value Reference Range Interpretation [...] S NOT APPLICABLE FOR DIALYSIS PATIEN TS. Chief Of Field Operations ID - ROSIANGGamma Glutamyl Transferase (GGT)2020-10-07 13:37:00 Test Item Value Reference Range Interpretation Comments GGT (test code = 2324-2) 21 U/L 9-64 RACQUEL (test code = RACQUEL) Chief Of Field Operations ID - ROSIANG Lab Interpretation (test Normal code = 21767-3) [facility] CenterPhosphorus2021-04-27 13:37:00 Test Item Value Reference Range Interpretation Comments Phosphorus (test code = 5.7 mg/dL 2.3-4.7 H 2777-1) RACQUEL (test code = RACQUEL) Chief Of Field Operations ID - ROSIANG Lab Interpretation (test Abnormal code = 44675-5) [facility] CenterUric [id number] 13:37:00 Test Item Value Reference Range Interpretation Comments Uric Acid (test code = 8.4 mg/dL 2.6-7.2 H 3084-1) RACQUEL (test code = RACQUEL) Chief Of Field Operations ID - ROSIANG Lab Interpretation (test Abnormal code = 35775-9) [facility] CenterPHOSPHORUS2021-04-27 13:37:00 Test Item Value Reference Range Interpretation Comments PHOSPHORUS (BEAKER) (test code = 5.7 mg/dL 2.3-4.7 H 604) Chief Of Field Operations ID - ROSIANGURIC [id number] 13:37:00 Test Item Value Reference Range Interpretation Comments URIC ACID (BEAKER) (test code = 8.4 mg/dL 2.6-7.2 H 773) Chief Of Field Operations ID - ROSIANGGAMMA GLUTAMYL TRANSFERASE (GGT)2020-10-07 13:37:00 Test Item Value Reference Range Interpretation Comments GAMMA GLUTAMYL TRANSFERASE (BEAKER) 21 U/L 9-64 (test code = 364) Chief Of Field Operations ID - ROSIANGPTH, [id number] 13:36:00 Test Item Value Reference Range Interpretation Comments PTH (test code = 2731-8) 466.5 pg/mL 8.5-72.5 H RACQUEL (test code = RACQUEL) Chief Of Field Operations ID - BJ Lab Interpretation (test Abnormal code = 80105-3) [facility] [id number] 13:36:00 Test Item Value Reference Range Interpretation Comments PARATHYROID HORMONE INTACT 466.5 pg/mL 8.5-72.5 H (BEAKER) (test code = 577) Chief Of Field Operations ID - NOELGPT/[id number] 13:34:00 Test Item Value Reference Interpretation Comments Range Protime (test code = 13.9 See_Comment [Autom ated 5902-2) message] The system which generated this result transmitted reference range : 11.9 - 14.2 seconds. The reference range was not used to interpret this result as normal/abnormal . INR (test code = 1.11 See_Comment [Automated 4011-6) message] The system which generated this result transmitted reference range : <=5.90. The reference range was not used to interpret this result as normal/abnormal . PTT (test code = 37.1 See_Comment H [Automated 94240-3) message] The system which generated this result [...] valves. Lab Interpretation Abnormal (test code = 58528-0) [id number] 13:34:00 Test Item Value Reference Range Interpretation [...] is2.5-3.5 for patients wiht mechanical heart valves.Prothrombin time/[id number] 13:33:00 Test Item Value Reference Interpretation Comments Range Protime (test code = 13.9 See_Comment [Autom ated 2542-2) message] The system which generated this result transmitted reference range : 11.9 - 14.2 seconds. The reference range was not used to interpret this result as normal/abnormal . INR (test code = 1.11 See_Comment [Automated 8161-6) message] The system which generated this result [...] valves. Lab Interpretation Normal (test code = 53214-3) [facility], [id number] 13:33:00 Test Item Value Reference Range Interpretation Comments ABO Grouping (test code = 2588) O Rh Factor (test code = 2589) POS [facility]/[id number] 13:33:00 Test Item Value Reference Range Interpretation Comments PROTIME (BEAKER) 13.9 seconds 11.9-14.2 (test code = 759) INR (BEAKER) (test 1.11 See_Comment [Automat ed message] code = 370) The system [employer] generated this result transmitted ref erence range: [...] heart valves.CBC with platelet count + automated [id number] 13:05:00 Test Item Value Reference Range Interpretation Comments WBC (test code = 6690-2) 6.4 See_Comment [A utomated message] The system [employer] generated this result transmitted ref erence range: 3.5 - 10 .5 K/L. The refe rence range was not u sed to interpret this result as normal/abnor mal. RBC (test code = 789-8) 2.95 See_Comment L [Au tomated message] The system [employer] generated this result transmitted ref erence range: 3.93 - 5 .22 M/L. The refe rence range was not u sed to interpret this result as normal/abnor mal. MCHC (test code = 786-4) 31.4 See_Comment L [A utomated message] The system [employer] generated this result transmitted ref erence range: [...] code = 318 See_Comment [Aut omated message] 917-3) The system [employer] generated this result transmitted ref erence range: 150 - 45 0 K/CU MM. The referen ce range was not u sed to interpret this result as normal/abnor mal. MPV (test code = 9.7 fL 9.4-12.3 53030-5) nRBC (test code = 413) 0 See_Comment [Aut omated message] The system [employer] generated this result transmitted ref erence range: [...] See_Comment [Aut omated message] 670) The system [employer] generated this result transmitted ref erence range: 1.56 - 6 .13 K/L. The refe rence range was not u sed to interpret this result as normal/abnor mal. # Lymphs (test code = 1.43 See_Comment [Auto mated message] 414) The system [employer] generated this result transmitted ref erence range: 1.18 - 3 .74 K/L. The refe rence range was not u sed to interpret this result as normal/abnor mal. # Monos (test code = 0.48 See_Comment H [Autom ated message] 415) The system [employer] generated this result transmitted ref erence range: 0.24 - 0 .36 K/L. The refe rence range was not u sed to interpret this result as normal/abnor mal. # Eos (test code = 416) 0.28 See_Comment [Au tomated message] The system [employer] generated this result transmitted ref erence range: 0.04 - 0 .36 K/L. The refe rence range was not u sed to interpret this result as normal/abnor mal. # Baso (test code = 417) 0.04 See_Comment [A utomated message] The system [employer] generated this result transmitted ref erence range: 0.01 - 0 .08 K/L. The refe rence range was not u sed to interpret this result as normal/abnor mal. Immature 0 % 0-1 Granulocytes-Relative (test code = 2801) Lab Interpretation (test Abnormal code = 00770-5) [facility] W/PLT COUNT & AUTO [id number] 13:05:00 Test Item Value Reference Range Interpretation [...] (BEAKER) (test code = 2801) T SPOT [id number] 14:01:00 Test Item Value Reference Range Interpretation Comments T-SPOT TB (BEAKER) (test code = Negative 1683) NEG CONTROL SPOT COUNT (BEAKER) 0 (test code = 1684) PANEL A SPOT (BEAKER) (test code = 0 1685) PANEL B SPOT (BEAKER) (test code = 0 1686) POS CONTROL SPOT CT (BEAKER) (test 0 code = 1687) SCAN RESULT (test code = 6116574) See Scanned ReportECG 12 [id number] 13:44:09Interface, External Ris In - 09/25/2020 1:44 PM CDTVentricular Rate 75 BPMAtrial Rate 75 BPMP-R Interval 154 msQRS Duration 86 msQ-T Interval 442 msQTC Calculation(Bazett) 493 msP Argyle 73 degreesR Argyle 83 degreesT Argyle 64 degreesNormal sinus rhythmRight atrial enlargementProlonged QTAbnormal ECGNo previous ECGs availableConfirmed by MD Guzman Roberto ([id number]) on 09/25/2020 1:44:07 [facility], WITH [id number] 13:22:00Reason for Exam:->to assess iliac vesselsKidney Transplant Evaluation [facility] MARIANA RODRIGESKARMANELLYBalbina MEYER : 1985 Sex: FFINAL REPORT TECHNIQUE: Grayscale, [...] Verified Date/Time: 09/25/2020 13:22:46 US pelvis with [id number] 13:22:00Interface, External Ris In - 09/25/2020 1:24 [...] Cindy Wright MDReport Verified Date/Time: 09/25/2020 13:22:46 [facility], ABDOMINAL, [id number] 13:01:00Reason for Exam:->Kidney Transplant EvaluationJAM[facility]IANA RODRIGES : 1985 Sex: F FINAL [...] CINDY WRIGHT MD on 101:01 PMUS abdomen [id number] 13:01:00Interface, External Ris In - 09/25/2020 1:03 [...] Cindy Gonzalez MDReport Verified Date/Time: 09/25/2020 13:01:08 [facility] HospitalLIPID [id number] 12:42:00 Test Item Value Reference Range Interpretation [...] Borderline 130-159 High 160-189 Very High >=190 Chief Of Field Operations ID - [id number] Echo W/Doppler(CW/PW/Color)2020-09-25 10:35:55Ejection FractionSLEH ECHO HEARTLAB MKCKESSON CPACSInterface, External Ris In - 09/25/2020 10:36 AM CDTTransthoracic Echocardiography Report (TTE) Demographics Patient Name MARIANA RODRIGES Dateof Study 09/25/2020 RAMONA MEYER Gender Female Visit Number [id number] Race Black Room Number OP Number Date of 1985 Referring Anderson Zamora Physician Bunny Age 35 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 Atrial septal position continuously bows eqed-ni-hyfsr, consistent with elevated LA pressure . Bdle-ax-vrvfoxax t ricuspid regurgitation. Estimated peak systolic PA [...] Atrial Septum Atrial septal position continuously bows srnr-xi-jeiix, consistent with elevated LA pressure . Aortic Valve Normal AoV structure. There is trace aortic regurgitation. Mitral Valve Mild MV leaflet thickening. At least moderate eccentric posteriorly directed mitral regurgitation.Tricuspid Valve TV structure is normal. Bggm-nt-rywxtwiy tricuspid regurgitation. Estimated peak systolic PA pressure [...] CO: 6.17 l/min LVOT CI: 3.72 l[facility]min/m^[facility], 2 [id number] 10:28:00Reason for Exam:->Kidney Trans[facility] EvaluationCH[facility] : 1985 Sex: F FINAL [...] pneumonia,pleural effusion or pneumothorax. Signed: Zina Pierre MDRmoses Verified Date/Time: 09/25/2020 10:28:23 Reading Location: [facility] Reading Room [address] [place] [address] XR chest 2 views 2020-09-25 10:28:00Interface, External [...] MDReport Verified Date/Time: 09/25/2020 10:28:23 Reading Location: [facility] Reading Room [address] [place] [address] [facility] [id number] 14:34:00 Test Item Value Reference Range Interpretation Comments UR HCG QUAL (test code = HCGQLU) NEGATIVE NEGATIVE COVID 19 Asymptomatic IH [id number] 12:06:00 Test Item Value Reference Range Interpretation [...] COMMENTS: If not done this admissionBASIC METABOLIC [id number] 11:25:00 Test Item Value Reference Range Interpretation [...] = 8.3 mg/dL 8.0-10.5 N CA) PROTHROMBIN [id number] 11:22:00 Test Item Value Reference Range Interpretation [...] o prevent recurre nt infarct). CBC W/AUTO [id number] 11:20:00 Test Item Value Reference Range Interpretation [...] NO = MDIFF) - XR CHEST 1 [id number] 11:15:00 [facility] : 1985 Sex: F FAX: Abimael Gallardo MD [phone] [place]: St: REG Name: MARIANA RODRIGES [facility] : 1985 Age/S: 35/F [address] [place] [address] Unit #: [id number] Loc: [place] [address] Phys: Abimael Isaac MD Acct: [id number] Dis Date: Status: REG [facility] PHONE #: [phone] Exam Date: 06/03/2020 1052 FAX #: [phone] Reason: PRE-OP EXAMS: CPT CODE: [id number] XR CHEST 1 V 35441 EXAM: XR CHEST 1 VIEW DATE: 06/03/2020 9:40 AM : 1985; Age: 35 years y/o Female INDICATION: AVF malfunction, PRE-OP COMPARISON: March 25, 2020 TECHNIQUE: AP chest. IMPRESSION: Lines, tubes and hardware: Stable. Heart, mediastinum and lungs: Heart appears borderline enlarged. No consolidation or pleural effusion is seen. No pneumothorax. SL: [id number] at 1115 Reported and signed by: Marcy Montes D.O. CC: Abimael Isaac MD Technologist: Ana Maria Callaway RT(R) Trnbethany Date/Time/By: 06/03/2020 (2246) : By: [email or web address] Orig Print D/T: S: 06/03/2020 (9534) PAGE 1 Signed ReportCBC W/AUTO [id number] 11:13:00 Test Item Value Reference Range Interpretation [...] DIFF REQUIRED (test code = MDIFF) PROTHROMBIN [id number] 11:57:00 Test Item Value Reference Range Interpretation [...] o prevent recurre nt infarct). BASIC METABOLIC [id number] 11:39:00 Test Item Value Reference Range Interpretation [...] 9.9 mg/dL 8.0-10.5 N CA) HCG SERUM [id number] 11:23:00 Test Item Value Reference Range Interpretation Comments HCG SERUM QUAL (test code = SERUM NEGATIVE NEGATIVE HCGQL) CBC W/AUTO [id number] 11:17:00 Test Item Value Reference Range Interpretation [...] (test code NO = MDIFF) CBC W/AUTO [id number] 11:15:00 Test Item Value Reference Range Interpretation [...] code = MDIFF) - XR CHEST 1 [id number] 11:04:00 FAX: Abimael Gallardo MD [phone] [place]: St: REG Name: MARIANA RODRIGES [facility] : 1985 Age/S: 34/F [address] [place] [address] Unit#: [id number] Loc: [place] [address] Phys: Abimael Isaac MD Acct: [id number] Dis Date: Status: REG [facility] PHONE #: [phone] Exam Date: 03/25/2020 1103 FAX #: [phone] Reason: PRE OP EXAMS: CPT CODE: [id number] XR CHEST 1 V 04257 PROCEDURE: CHEST SINGLE VIEW INDICATION: PRE OP;ESRD COMPARISON: March 2014 FINDINGS: TUBES AND LINES: Tunneledright hemodialysis catheter tip at the level of mid superior vena cava. CHEST: The lungs are clear. The pleural, cardiomediastinal silhouette, and bony thorax are normal. IMPRESSION: No acute findings. SL: [id number] Reported and signed by: Josesito Tolentino M.D. CC: Abimael Isaac MD Technologist: More LamaRT(R) Trnscrd Date/Time/By: 03/25/2020 (8094) : By: Christian Orig Print D/T: S: 03/25/2020 (7577) PAGE 1 Signed ReportCOVID 19 Asymptomatic IH [id number] 10:59:00 Test Item Value Reference Range Interpretation [...]
--- NOTE | 2021-05-26 13:24 | ER ---
Nurse's Notes [facility] Name: Nely Quinones Age: 36 yrs Sex: Female : 1985 Arrival Date: 05/26/2021 Time: 10:04 Bed Waiting Private MD: Sami Monge Diagnosis: Presentation: 05/26 10:12 Chief complaint: Patient states: states that she had fls and wasn't able to go to [facility] dialysis for 10-12 days. states that she attempted to go yesterday but they told her she needed labs drawn before they are able to complete treatment. Coronavirus screen: Vaccine status: Patient reports being unvaccinated. Ebola Screen: No symptoms or risks identified at this time. Initial Sepsis Screen: Does the patient meet any 2 criteria? No. Patient's initial sepsis screen is negative. Does the patient have a suspected source of infection? No. Patient's initial sepsis screen is negative. Risk Assessment: Do you want to hurt yourself or someone else? Patient reports no desire to harm self or others. Onset of symptoms was May 16, 2021. 10:12 Method Of Arrival: Ambulatory [facility] 10:12 Acuity: LORENA 3 [facility] Triage Assessment: 10:16 General: Appears in no apparent distress. Behavior is calm, cooperative. Pain: Denies [facility] pain. Historical: - Allergies: 10:15 No Known Allergies; [facility] - Immunization history:: Adult Immunizations up to date. - Social history:: Smoking status: Patient denies any tobacco usage or history of. Assessment: 13:22 Reassessment: Called to exam room. No answer. Vital Signs: 10:12 BP 190 / 130; Pulse 81; Resp 18; Temp 97.6; Pulse Ox 100% ; Weight 65.77 kg; Height 5 [facility] ft. 2 in. (157.48 cm); Pain 0/10; 10:12 Body Mass Index 26.52 (65.77 kg, 157.48 cm) [facility] ED Course: 10:04 Patient arrived in ED. mr 10:04 Sami Monge DO is Private Physician. mr 10:15 Triage completed. [facility] 10:16 Arm band placed on right wrist. [facility] 13:19 Buddy Ray [facility] 13:19 Serge Neil MD is Attending Physician. abbey Administered Medications: No medications were administered Outcome: 13:23 Patient left the ED. 13:24 Eloped from waiting room. 13:24 unknown Signatures: Buddy Ray PA PA jmm Rivera, Mary mr Katarzyna Ramos, RN RN ss Zahira Comer RN RN [facility] Corrections: (The following items were deleted from the chart) 10:16 10:15 PMHx: Hypertension; [place] [address] 10:16 10:15 PMHx: Dialysis; [place] [address] 10:16 10:15 PMHx: DIALYSIS MWF; [place] [address] 10:16 10:15 PSHx: ALICIA Fistula; [place] [address] 10:16 10:15 PSHx: ; [place] [address]
[2021-05-26 13:40] VITALS: BP 190/130; TEMP 97.6; O2SAT 100
== END 2021-05-26 13:23 | disposition left against medical advice (07) ==
LOC: ER 09:59
DX: Z53.21 Procedure and treatment not carried out due to patient leaving prior to being seen by health care provider (principal)
CPT/HCPCS: 99281

== ENCOUNTER 2021-05-27 09:09 | Emergency (ER) | payer OTHER ==
--- OUTSIDE RECORDS SUMMARY | 2021-05-27 09:16 | XMS REPORT | Continuity of Care Document ---
:1985 Author Organization [facility] t Address [address] [place] [address] Dr. Larson. [address] [place] [address] Care Team Providers Name Role Phone PCP, [...] Expiration Date S dora MEDICARE PART A [id number] 2020 \T\ B 00:00:00 [facility] RACQUEL LYON [id number] 2020 PLUS 00:00:00 MEDICARE A B [id number] 2020 00:00:00 [place] [id number] 2020 00:00:00 [place] CHILDRENAttila [id number] 2017 HEALTH 00:00:00 Advance Directives Directive Decision Effective Termination Comments Source Date Date Healthcare Agents on N/A Univ ersity FileNameRelationshipHealthcare [facility] Agent Medical RelationshipCommunicationDebanner [facility] [phone] (Mobile) Problems Condition Condition Condition Status Onset [...] s 1-27 ity of vaginitis vaginitis 00:00: [facility] Anxiety Anxiety Disease Active Univers during during 1-24 [place]y [place] , , [place] ante[place] antepartum 00 Ut dical Branch History of History of Disease [...] placenta 7-22 ity of abruption abruption 00:00: [facility] H/O H/O Disease Active Univers maternal maternal 7-08 ity of blood blood 00:00: [place] transfusio transfusio 00 Ut dical n, n, Branch currently currently , [...] DIC 3-04 ity of syndrome syndrome 00:00: [address] High-risk High-risk Disease Active Uni vers 5-29 ity of 00:00: [address] Allergies, Adverse Reactions, Alerts Allergy Allergy Status Severity Reaction(s) Onset Inactive Treating Comm ents Source Name Type Date Date Clinician No Known DA Active U [facility]14 Clear Allergie 00:00: [facility] No Known DA Active U [facility] 02-14 Clear Allergie 00:00: [facility] hydrocod DA Active U 2013-06 [facility] one 0-03 Clear 00:00: [facility] hydrocod DA Active U CHEST PAINS 2013-06 [facility] one 0-03 Clear 00:00: [facility] NO KNOWN Drug Active Univers ALLERGIE Class ity of S [facility] NO KNOWN Allergy Active [facility] ALLERGIE S Family History Family Member Diagnosis Comments Start Date Stop Date Source Natural brother No Known Problem [facility] Maternal uncle Kidney disease [facility] Natural mother Heart defect [facility] Natural sister No Known Problem [facility] Social History Social Habit Start Date Stop Date Quantity Comments Source Exposure to Unable to assess Univers ity of SARS-CoV-2 [facility] (event) [place] History of Cigarette Smoker [facility] tobacco use Medical Cente r Alcohol Comment 2020-10-07 2020-10-07 1 glass of wine [facility] - 00:00:00 00:00:00 [facility] Tobacco use and 2020-09-03 2020-09-03 Never used Universit y of exposure 00:00:00 00:00:00 [facility] Alcohol intake 2020-09-03 2020-09-03 Current University of 00:00:00 00:00:00 non-drinker of [facility] alcohol (finding) Branch Tobacco Comment 2013-11-08 2013-11-08 smokes one Universit y of 00:00:00 00:00:00 cigarette once [facility] per week Branch Sex Assigned At [birth year] Universit y of 00:00:00 00:00:00 [facility] Smoking Status Start Date Stop Date Source Former smoker 2020-09-03 00:00:00 2020-09-03 [facility] Medications Ordered Filled Start Stop Current [...] times Center tablet daily. NIFEdipine Yes 30mg [id number] Take [address] [facility] (PROCARDIA) 4-27 [id number] by mouth [facility] - 10 MG [...] as needed for Pain. doxazosin Yes 8mg [id number] Take [address] (CARDURA) 8 4-27 [id number] by mouth 3 [facility] - MG tablet 12:13: 3D (three) Medic al 58 times Center daily . cholecalcif Yes 5000U QD Take 5,[address] [facility] [place], 4-27 Units by [facility] - vitamin D3, 12:13: mouth Medic al 125 mcg 58 daily. Center (5,000 unit) Tab hydrALAZINE 2020- No 10mg [id number] Take [address] (APRESOLINE 4-27 04-27 [id number] by mouth 3 [facility] - ) 10 [...] daily [place] suspension 00 as needed Medi [facility] for Branch Constipati on. labetalol 2018-0 Yes [...] Name TD 2017-12-06 Completed University of 00:00:00 [facility] TDAP 2017-12-06 Completed University of 00:00:00 [facility] TDAP 2017-12-06 Completed University of 00:00:00 [facility] TDAP 2017-12-06 Completed University of 00:00:00 [facility] TDAP 2017-12-06 Completed University of 00:00:00 [facility] TDAP 2017-12-06 Completed University of 00:00:00 [facility] TDAP 2017-12-06 Completed University of 00:00:00 [facility] TDAP 2017-12-06 Completed University of 00:00:00 [facility] TDAP 2017-12-06 Completed University of 00:00:00 [facility] TDAP 2017-12-06 Completed University of 00:00:00 [facility] TDAP 2017-12-06 Completed University of 00:00:00 [facility] TDAP 2015-12-12 Completed University of 00:00:00 [facility] TDAP 2015-12-12 Completed University of 00:00:00 [facility] TDAP 2015-12-12 Completed University of 00:00:00 [facility] TDAP 2015-12-12 Completed University of 00:00:00 [facility] TDAP 2015-12-12 Completed University of 00:00:00 [facility] TDAP 2015-12-12 Completed University of 00:00:00 [facility] TDAP 2015-12-12 Completed University of 00:00:00 [facility] TDAP 2015-12-12 Completed University of 00:00:00 [facility] TDAP 2015-12-12 Completed University of 00:00:00 [facility] TDAP 2015-12-12 Completed University of 00:00:00 [facility] TDAP 2015-12-12 Completed University of 00:00:00 [facility] Vital Signs Vital Name Observation Time Observation Value Comments Source HEIGHT 2020-10-07 11:13:00 159.2 cm WEIGHT 2020-10-07 11:13:00 66.225 kg HEIGHT 2020-10-07 11:13:00 159.2 cm WEIGHT 2020-10-07 11:13:00 66.225 kg Systolic blood 2020-10-07 11:13:00 202 mm[Hg] [facility] Diastolic blood 2020-10-07 11:13:00 133 mm[Hg] [facility] Heart rate 2020-10-07 11:13:00 73 /min [facility] Body temperature 2020-10-07 11:13:00 36.61 [facility] Respiratory rate 2020-10-07 11:13:00 20 /min [facility] Body height 2020-10-07 11:13:00 159.2 cm [facility] Body weight 2020-10-07 11:13:00 66.225 kg [facility] BMI 2020-10-07 11:13:00 26.13 kg/m2 [facility] Procedures Procedure Date / Time Performing Clinician Source Performed URINE CULTURE 2020-10-07 Noah Barron [facility] - 10:08:00 [facility] URINALYSIS W/ MICROSCOPIC 2020-10-[address] [facility]ron [facility] - 10:08:00 [facility] HEMOGLOBIN A1C 2020-10-07 Noah Barron [facility] - 10:07:00 [facility] CBC W/PLT COUNT & AUTO 2020-10-07 Noah Barron [facility] S [facility] - DIFFERENTIAL 10:07:00 [facility] CYTOMEGALOVIRUS ANTIBODY, 2020-10-07 Anderson, [facility]ipati [facility] IGG 10:07:00 [facility] CYTOMEGALOVIRUS ANTIBODY, 2020-10-07 Anderson, [facility]hamidipati [facility] - IGM 10:07:00 [facility] COMPREHENSIVE METABOLIC 2020-10-07 Anderson, Bhamidipati [facility] - PANEL 10:07:00 [facility] EBV ANTIBODY, IGM 2020-10-07 Anderson, [facility]ipati [facility] - 10:07:00 [facility] GAMMA GLUTAMYL TRANSFERASE 2020-10-07 Anderson, [facility]idipati [facility] - (GGT) 10:07:00 [facility] HEPATITIS B SURFACE ANTIBODY 2020-10-07 Anderson, Bhamidipati [facility] - 10:07:00 [facility] HEPATITIS B SURFACE ANTIGEN 2020-10-07 Anderson, Bhamidipati [facility] - 10:07:00 [facility] HEPATITIS B CORE ANTIBODY, 2020-10-07 Anderson, Bhamidipati [facility] IGM 10:07:00 [facility] HEPATITIS C ANTIBODY 2020-10-07 Anderson, Bhamidipati [facility] - 10:07:00 [facility] HC LAB HIV-1 AG W/HIV-1&2 AB 2020-10-07 Anderson, Bhamidipati [facility] - 10:07:00 [facility] PHOSPHORUS 2020-10-07 Anderson, Bhamidipati [facility] - 10:07:00 [facility] PTH, INTACT 2020-10-07 Anderson, Bhamidipati [facility] - 10:07:00 [facility] PT/APTT 2020-10-07 Anderson, Bhamidipati [facility] - 10:07:00 [facility] PROTHROMBIN TIME/INR 2020-10-07 Anderson, Bhamidipati [facility] - 10:07:00 [facility] RPR 2020-10-07 Anderson, Bhamidipati [facility] - 10:07:00 [facility] URIC ACID 2020-10-07 Anderson, Bhamidipati [facility] - 10:07:00 [facility] VARICELLA ZOSTER ANTIBODY, 2020-10-07 Anderson, Bhamidipati [facility] IGG 10:07:00 [facility] ANTITHROMBIN III 2020-10-07 Anderson, [facility]hamidipati [facility] - 10:07:00 [facility] FACTOR 5 LEIDEN PCR 2020-10-07 Anderson, Bhamidipati [facility] - (THROMBOTIC RISK) 10:07:00 [facility] HC LAB PROTHROMBIN FACTOR II 2020-10-07 Anderson, Bhamidipati [facility] - 10:07:00 [facility] PROTEIN C ACTIVITY 2020-10-07 Anderson, [facility]ipati [facility] - 10:07:00 [facility] PROTEIN S ACTIVITY 2020-10-07 Anderson, Bhamidipati [facility] - 10:07:00 [facility] PHOSPHATIDYLSERINE ABS (IGG, 2020-10-07 Anderson, Bhamidipati [facility] IGM) 10:07:00 [facility] DIRECT AHG (JOHANN)/DIRECT 2020-10-07 Anderson, Bhamidipati [facility] - OTTO 10:07:00 [facility] ABORH, MANUAL 2020-10-07 Anderson, Bhamidipati [facility] - 10:07:00 [facility] US PELVIS WITH DOPPLER 2020-09-25 Anderson[facility] - 12:09:00 [facility] US ABDOMEN COMPLETE 2020-09-25 Anderson, Bhamidipati [facility] - 11:38:00 [facility] XR CHEST 2 VIEWS 2020-09-25 Anderson, Bhamidipati [facility] - 10:24:00 [facility] 2D ECHO W/ DOPPLER 2020-09-25 Anderson, Bhamidipati [facility] - (CW/PW/COLOR) 08:44:17 [facility] ECG 12-LEAD 2020-09-25 Anderson, Bhamidipati [facility] - 08:24:21 [facility] T SPOT TB 2020-09-25 Anderson, Bhamidipati [facility] - 08:06:00 [facility] FLOW PRA CLASS I WITH REFLEX 2020-09-25 Anderson, Bhamidipati [facility] - TO ANTIBODY SPECIFICITY 08:05:00 [facility] FLOW PRA CLASS II WITH 2020-09-25 Anderson, [facility] REF[facility] 08:05:00 [facility] HLA TYPING CI 2020-09-25 Anderson, Bhamidipati [facility] - 08:05:00 [facility] HLA TYPING CII 2020-09-25 Anderson, Bhamidipati [facility] - 08:05:00 [facility] LIPID PANEL 2020-09-25 Anderson, Bhamidipati [facility] - 08:05:00 [facility] BLOOD TYPING, AUTOMATED 2020-09-25 Anderson, Bhamidipati [facility] - 08:05:00 [facility] TRANSPLANT/EXT PROVIDER [facility] 2019-11-28 Doctor Unassigned, [facility] 05:01:00 [place] [facility] Plan of Care Planned Activity Planned Date Details Comments Source Future Scheduled 2027-12-07 DTAP/TDAP/TD VACCINES [facility] Test 00:00:00 (4 - Td) [code = Medical [facility] ter DTAP/TDAP/TD VACCINES (4 - Td)] Future Scheduled 2023-09-[address] [facility] - Test 00:00:00 (procedure) [code = [facility] 89767690] Future Scheduled 2021-02-11 INFLUENZA VACCINE (#1) [facility] Test 00:00:00 [code = INFLUENZA Medical Ce nter VACCINE (#1)] Future Scheduled 2020-06-[address] [facility] - Test 00:00:00 (12+) [code = [facility] DEPRESSION SCREENING (12+)] Future Scheduled 2020-02-12 Medicare IPPE (WELCOME [facility] - Test 00:00:00 TO MEDICARE) [code = [facility] Medicare IPPE (WELCOME TO MEDICARE)] Future Scheduled [address] [facility] - Test 00:00:00 [facility] cervix (procedure) [code = 120027211] Future Scheduled 1998 COVID-19 VACCINE (1) [facility] [...] ID 2020-06-03 Inpatient Isaac, Bill HCACL DAYS [id number] [facility] 12:00:00 [id number] [facility] 2020-03-25 Inpatient EL Isaac, Bill HCACL DAYS [id number] [facility] 07:00:00 [id number] [facility] 2020-03-04 Inpatient Isaac, Bill HCAC[facility] DAYS [id number] [facility] 10:00:00 [id number] [facility] 2020-02-19 Inpatient Isaac, Bill HCAC[facility] DAYS [id number] [facility] 09:00:00 [facility] 2020-02-14 Inpatient Isaac, Bill HCACL DAYS [id number] [facility] 08:30:00 [facility] 2021-05-26 2021-05-26 Outpatient R [facility] [id number] Univers 15:45:00 15:45:00 [id number] [facility] 2021-05-26 2021-05-26 [facility] [id number] Univers 13:00:00 13:00:00 EVIN moreno o [facility] 2021-05-19 2021-05-19 Outpatient R [facility] [id number] Univers 10:00:00 10:00:00 [id number] [facility] 2021-05-19 2021-05-19 [facility] [id number] Univers 10:00:00 10:00:00 EVIN moreno o [facility] 2020-12-23 2020-12-23 Outpatient R [facility] [id number] Univers 11:00:00 11:00:00 ity [facility] 2020-12-23 2020-12-23 Outpatient R [facility] [id number] Univers 09:00:00 09:00:00 [id number] ity [facility] 2020-12-23 2020-12-23 Outpatient ANDERSON, [facility] SLE [id number] [facility] 00:00:00 00:00:00 BHAMIDIPATI 2020-12-23 2020-12-23 Outpatient EL [facility] [id number] [facility] 00:00:00 00:00:00 2020-12-23 2020-12-23 Outpatient EL [facility] [id number] [facility] 00:00:00 00:00:00 2020-11-18 2020-11-18 Outpatient [facility] [id number] Univers 12:30:00 12:30:00 [id number] [facility] 2020-11-18 2020-11-18 [facility] [id number] Univers 08:00:00 08:00:00 EVIN ity o f [facility] 2020-11-18 2020-11-18 [facility] [id number] [facility] 00:00:00 00:00:00 Bee covarrubias MULTISPEC [id number] [facility] [id number] [facility] [id number] [address] DI[facility] 2020-11-14 2020-11-[address] [id number] 00:00:00 00:00:00 [facility] 2020-11-14 2020-11-[address] GinoDanya [id number] 00:00:00 00:00:00 Work [facility] 2020-11-13 2020-11-13 Case [facility] [id number] Univers 00:00:00 00:00:00 Management Bee covarrubias N MULTISPEC [id number] ity of IALTY [id number] [facility] [id number] [facility] AND [address] DIABETES CLINIC 2020-11-13 2020-11-13 Case [facility] [id number] 00:00:00 00:00:00 Management Bee covarrubias MULTISPEC [id number] IALTY [id number] [place] [id number] [place] [address] [facility] 2020-11-06 2020-11-06 Outpatient R AKINSIPE, [facility] [id number] Univers 09:00:00 09:00:00 DEE [id number] ity o [facility] 2020-11-06 2020-11-06 Outpatient R AKINSIPE, [facility] [id number] Univers 08:30:00 08:30:00 DEE ity o [facility] 2020-11-06 2020-11-06 Case [facility] [id number] Univers 00:00:00 00:00:00 Bee Rae do MULTISPEC [id number] ity of IALTY [id number] [facility] [id number] [address] DIABETES [facility]INIC 2020-11-06 2020-11-06 [facility] [id number] 00:00:00 00:00:00 Management Bee covarrubias MULTISPEC [id number] IALTY [id number] [place] [id number] [place] [address] [facility] 2020-11-04 2020-11-04 Telephone GUILLE Christian [id number] JAMIE Cotton 00:00:00 00:00:00 [facility] 2020-10-31 2020-10-[address] GinoDanya [id number] 00:00:00 00:00:00 [facility] 2020-10-27 2020-10-27 Outpatient R AKINSIJOSE ANGEL, [facility] [id number] Univers 08:15:00 08:15:00 DEE [id number] itisrael davion eduardo [facility] 2020-10-22 2020-10-[address] [facility] [id number] 00:00[facility] 00:00:[address] [facility] 2020-10-16 2020-10-[address] [facility] [id number] 00:00:00 00:00:00 Ruthann Abigail [facility] 2020-10-16 2020-10-[address] [facility] [id number] 00:00:00 00:00:00 Only [facility] 2020-10-14 2020-10-[address] [facility] [id number] 00:00:00 00:00:00 [facility] 2020-10-14 2020-10-[address] [facility] [id number] 00:00:00 00:00:00 ion [facility] 2020-10-14 2020-10-[address] [facility] [id number] 00:00:00 00:00:00 [facility] 2020-10-12 2020-10-[address] [facility] [id number] 00:00:00 00:00:00 ion Laura Mortensen [facility] 2020-10-07 2020-10-07 Evaluation Denise Barronamidcheyenne Hollis [facility] [id number] [facility] 09:54:41 10:24:41 Jordana Jungsuf [facility] 2020-10-07 2020-10-07 Evaluation Anderson Bhamidipati Bunny [facility] [id number] [facility] 09:53:43 10:23:43 Rena Nassar [facility] 2020-10-07 2020-10-[address] [facility] [id number] 09:53:01 10:08:[address] [facility] 2020-10-07 2020-10-07 Outpatient [facility]H [facility] [id number] [facility] 00:00:00 00:00:00 2020-10-07 2020-10-07 Outpatient EL [facility] [id number] [facility] 00:00:00 00:00:00 2020-10-07 2020-10-07 Outpatient [facility]H [facility] [id number] [facility] 00:00:00 00:00:00 2020-10-07 2020-10-07 Telephone [facility] [id number] 00:00[facility]00 00:00:00 [facility] 2020-10-06 2020-10-06 [facility] [id number] 00:00:00 00:00:00 [facility] 2020-10-06 2020-10-06 [facility] [id number] 00:00:00 00:00:00 [facility] 2020-10-06 2020-10-06 [facility]at [facility] [id number] 00:00:00 00:00:00 ion [facility] 2020-10-02 2020-10-02 Outpatient SLEH SLEH [id number] [facility] 00:00:00 00:00:00 2020-10-02 2020-10-02 Outpatient EL [facility] [id number] [facility] 00:00:00 00:00:00 2020-10-02 2020-10-02 Outpatient [facility]H SLEH [id number] [facility] 00:00:00 00:00:00 2020-10-02 2020-10-02 Telephone [facility] [id number] 00:00[facility]00 00:00:00 [facility] 2020-10-02 2020-10-02 [address] [place]ord, [facility] [id number] 00:00:00 00:00:00 [facility] 2020-09-25 2020-09-25 [facility] [id number] [facility] 10:07:04 23:59:00 Encounter 1, [facility] Room [facility] 2020-09-25 2020-09-25 [facility] [id number] [facility] 10:06:56 10:06:56 Encounter 1, [facility] 2020-09-25 2020-09-25 [facility], [facility] [id number] 10:06:49 10:06:49 Encounter [facility] 2020-09-25 2020-09-25 [facility], [facility] [id number] 08:10:48 10:05:00 Encounter [facility] 2020-09-25 2020-09-25 [facility], [facility] [id number] 08:00:00 08:09:00 Encounter [facility] 2020-09-25 2020-09-25 Outpatient ANDERSON, SLEH SLEH [id number] [facility] 00:00[facility]00 [facility]00[facility] 2020-[facility] 2020-09-25 Outpatient EL [facility] [id number] [facility] 00:00:00 00:00:00 2020-09-25 2020-09-25 Outpatient ANDERSON, [facility]H SLEH [id number] [facility] 00:00:00 00:00:00 AMIDIPATI 2020-09-25 2020-09-25 Outpatient ANDERSON, SLEH SLEH [id number] [facility] 00:00:00 00:00:00 AMIDIPATI 2020-09-25 2020-09-25 Outpatient ANDERSON, SLE SLE [id number] SLE 00:00:00 00:00:00 BHAMIDIPATI 2020-09-25 2020-09-25 Outpatient ANDERSON, SLE SLE [id number] [facility] 00:00:00 00:00:00 BHAMIDIPATI 2020-09-04 2020-09-04 [facility] [id number] [facility] 10:06:00 23:59:00 Encounter Evin Mortensen [place] [id number] ity of [facility] [id number] [facility] [id number] [place] [address] Branch 2020-09-04 2020-09-04 [facility] [id number] [facility] 00:00:00 00:00:00 EVIN bhakaty o f [facility] 2020-09-04 2020-09-04 [facility] [id number] [facility] 00:00:00 00:00:00 (Out) Evin Mortensen MULTISPEC [id number] [facility] [id number] [facility] [id number] [address] DI[facility]ETES [facility]INIC 2020-09-03 2020-09-03 [facility] [id number] [facility] 00:00:00 00:00:00 Bee covarrubias MULTISPEC [id number] ity of [facility] [id number] [place] [id number] DIABETES [facility]INIC 2020-09-03 2020-09-[address] [facility] [id number] [facility] 00:00:00 00:00:00 [facility] 2020-09-03 2020-09-03 Telephone [facility] [id number] 00:00:00 00:00:00 Bee covarrubias MULTISPEC 350.1.13.10 IALTY [id number] [place] [id number] AND RICKY Curtis [facility] 2020-06-26 2020-06-26 Documentat Juan, [facility] [id number] 00:00:00 00:00:00 [facility] 2020-06-26 2020-06-26 Abstract Juan, [facility] [id number] 00:00:00 00:00:00 [facility] 2020-06-23 2020-06-23 Abstract [facility] [id number] 00:00:00 00:00:00 [facility] 2020-06-23 2020-06-23 Documentishmael [facility] [id number] 00:00:00 00:00:00 [facility] 2020-06-17 2020-06-17 Documentishmael [facility] [id number] 00:00:00 00:00:00 [facility] 2020-06-17 2020-06-17 Abstract [facility] [id number] 00:00:00 00:00:00 [facility] 2020-06-17 2020-06-[address] [facility] [id number] 00:00:00 00:00:00 [facility] 2020-06-16 2020-06-16 [facility] [id number] 00:00:00 00:00:00 [facility] 2020-06-16 2020-06-16 [facility] [id number] 00:00:00 00:00:00 [facility] 2019-11-28 2019-11-28 Tanya MENDOZA [id number] Univers 00:00:00 00:00:00 Only Unassigned, [place] [id number] ity of [place] [facility] [id number] Cecilio as [id number] [place] [address] Branch 2017-11-21 2017-11-21 Outpatient Joshua DORSEY [facility] RAD [id number] [employer] 15:00:00 15:00:00 DOMINIK [id number] ity o f [facility] Results Test Description Test Time Test [...] (IGM) (test code = syndrome (APS) lita 3704611) clinical-pathol ogic correlation that includesa clinical event (e.g. thrombosi s, pregnancyloss, thrombocytopeni a) and persistent positiveantipho spholipid antibodies (IgM or IgG JENSEN>40 MPL/GPL,IgM or IgG anti-b2GPI antibodies ora lupus anticoagulant). International consensusguidel radha for APS suggest waiting at least 12weeks before retestin g to confirm antibodypersist ence. The Systemic Lupus Internati onalCollaborating Clinics immunologicalcl assification criteria for [facility] lupuserythemato vishal (SLE) include testing for iso [...] (test code = RACQUEL) Performing Lab EZ for; to (do) Diagnostics [facility] [address] [place] [address] Daija Green MD, PhD, KRISHNA [facility] JoseProthrombin Gene [id number] 16:22:00 Test Item Value Reference Interpretation Comments Range PROTHROMBIN GENE NEGATIVE RESULT: G20 210A VARIANT NOT ANALYSIS (test DETECTED code = 9509961) Interpretation See Below INTERPRETATIO N: This (test code = individual is n egative 6459602) (normal) for th e [id number] in the Prothrombin/Fac tor II gene. Increased risk ofthrombophilia can be caused by a morgan iety of genetic and non-geneticfact ors not screened for by this assay. Laboratory test ing supervised and results monitored by Carol Steinberg,Ph.D., D ABG, [facility]. The C71759K mut ation [BT417404.1: g. 28358X>A (c.*97G>A)] in theProthrombin/ Factor II gene is the sec ond most common inherite d riskfactor for thrombosis occurring in approximately 2 % of Caucasians.Pres ence of the mutation is ass ociated with an elevation of prothrombin levels to about 30% above normal in heter ozygotes and to70% above nor mal in homozygotes. Pr othrombin (Z19179B) mutat ions are detected by amp lification oftheir selecte d gene regions by poly merase chain reaction (PCR) andfluorescent probe hybridization t o the targeted region , followed bymelting curve analysis with a real [employer] e PCR system. Although rare,f alse positive or false negati ve results may occur. All resultsshould be interpreted in context of clinical findin gs, relevanthistory , and other laboratory data . Health care providers, plea se contact your local Ques t Diagnostics'gen etic counselor or carol abraham [phone] ([phone]) forassistance with interpreta tion of these results. This t est was developed and i ts analytical performancechar acteristics have been deter mined by [facility] e [place]. It has not been cleared or appr elva bythe FDA. This assay has been validated pursu ant to the CLIAregulations and is used for clinical pu rposes. RACQUEL (test code = Performing Lab RACQUEL) EZ Stage [address] [facility] [address] [facility] [place] [address] Daija Green MD, PhD, KRISHNA [facility] JoseFactor 5 Leiden PCR (thrombotic risk)2020-10-11 13:14:00 Test Item Value Reference Interpretation Comments Range Factor V Leiden NEGATIVE FACTOR V LEI DEN (R506Q) Mutation (test VARIANT NOT D ETECTED code = 0326394) Interpretation See Below INTERPRETATIO N: This (test code = individual is n egative 3682868) (normal) for th e Factor VLeiden (R506Q) [...] plea se contact your local Ques t Photo Rankrgene tic counselor or call [facility] ([phone]) for assistancewith interpretation of these results. This t est was developed and i ts analytical performancechar acteristics have been deter mined by [facility] [place]. It has not been cleared or appr elva bythe FDA. This assay has been validated pursu ant to the CLIAregulations and is used for clinical pu rposes. RACQUEL (test code = Performing Lab RACQUEL) EZ Stage [facility] [address] [place] [address] Daija Green MD, PhD, KRISHNA [facility] JoseProtein S [id number] 03:55:00 Test Item Value Reference Range Interpretation Comments Protein S 95 See_Comment Decreased leve ls of Functional (test Protein S a ctivity code = 3516790) may be found in patients withhereditary deficiency, war farin therapy, vitami n k deficiency, dominick er disease,DIC, or recent thrombos is as well as after surgery. In addition, it ma y bephysiologic i n . An elevated Protei n S activity is not clinicallysigni fican t. Only deficie ncies are associated with an increased thromboticrisk. [Automated mess age] The system [employer]imb[employer] generated this result transmit liya reference range : 60 - 140 % normal. The reference range was not used to interpret this result as normal/abnormal . RACQUEL (test code = Performing Lab RACQUEL) EZ Stage [facility] [address] [facility] [address] [place] [address] Daija Green MD, PhD, KRISHNA [facility] JoseUrine [id number] 07:38:00 Test Item Value Reference Range Interpretation Comments Result (test code = See comment 6463-4) RACQUEL (test code = >100,000 col/mL enteric RACQUEL) organisms of >2 types. No further workup performed. Multiple organisms suggestive of colonization or contamination. Repeat collection recommended.40-49,000 col/mL skin beth [facility] JoseURINE [id number] 07:38:00 Test Item Value Reference Range Interpretation Comments CULTURE (BEAKER) (test code = See comment 1095) >100,000 col/mL enteric organisms of >2 types. No further workup performed. Multiple organismssuggestive of colonization or contamination. Repeat collection recommended.40-49,000 col/mL skin [id number] 14:26:00 Test Item Value Reference Range Interpretation Comments RPR (test code = 12929-3) Nonreactive Nonreactive Lab Interpretation (test code = Normal 76064-3) [facility] JoseRPR2021-04-28 14:26:00 Test Item Value Reference Range Interpretation Comments RPR SCREEN (BEAKER) (test code = Nonreactive Nonreactive 420) Varicella Zoster Antibody, [id number] 14:12:00 Test Item Value Reference Range Interpretation Comments Varicella IgG (test 2.8 code = 69013-9) RACQUEL (test code = RAQCUEL) VARICELLA ZOSTER RESULT INTERPRETATIONS: <=0.8 Al Nonreactive: Presumed non-immune to VZV 0.9-1.0 Al Equivocal >=1.1 Al Reactive: Presumed immune to VZV [facility] JoseVARICELLA ZOSTER ANTIBODY, [id number] 14:12:00 Test Item Value Reference Range Interpretation Comments VARICELLA ZOSTER IGG (AL) (BEAKER) 2.8 (test code = 3197) VARICELLA ZOSTER RESULT INTERPRETATIONS: <=0.8 Al Nonreactive: Presumed non-immune to VZV 0.9-1.0 Al Equivocal >=1.1 Al Reactive: Presumed immune to VZVCytomegalovirus antibody, [id number] 13:54:00 Test Item Value Reference Range Interpretation Comments CYTOMEGALOVIRUS, IGG Positive Negative, A (test code = 3429) Equivocal RACQUEL (test code = RACQUEL) CMV IgG Result Interpretation: </= 0.8 Al Negative 0.9-1.0 Al Equivocal >/=1.1 Al Positive Lab Interpretation (test Abnormal code = 71991-5) [facility] JoseEBV-VCA antibody, [id number] 13:54:00 Test Item Value Reference Range Interpretation Comments ALETA BOWLING VIRAL Positive Negative, A CAPSID ANTIGEN IGG (test Equivocal code = 3415) RACQUEL (test code = RACQUEL) Aleta Bowling Viral Capsid Antigen IgG Result Interpretation: </= 0.8 Al Negative 0.9-1.0 Al Equivocal >/= 1.1 Al Positive Lab Interpretation (test Abnormal code = 06023-3) [facility] JoseEBV-VCA antibody, [id number] 13:54:00 Test Item Value Reference Range Interpretation Comments ALETA BOWLING VIRAL Negative Negative, CAPSID ANTIGEN IGM (test Equivocal code = 3418) RACQUEL (test code = RACQUEL) Aleta Bowling Viral Capsid Antigen IgM Result Interpretation: </= 0.8 Al Negative 0.9-1.0 Al Equivocal >/= 1.1 Al Positive Lab Interpretation (test Normal code = 81386-4) [facility] JoseCytomegalovirus antibody, [id number] 13:54:00 Test Item Value Reference Range Interpretation Comments CMV IGM (test code = Negative Negative, 3437) Equivocal RACQUEL (test code = RACQUEL) CMV IgM Result Interpretation: </= 0.8 Al Negative 0.9-1.0 Al Equivocal >/= 1.1 Al Positive Lab Interpretation (test Normal code = 47622-3) [facility] JoseCYTOMEGALOVIRUS ANTIBODY, [id number] 13:54:00 Test Item Value Reference Range Interpretation Comments CYTOMEGALOVIRUS, IGG (BEAKER) Positive Negative, Equivocal A (test code = 3429) CMV IgG Result Interpretation: </= 0.8 Al Negative 0.9-1.0 Al Equivocal >/=1.1 Al PositiveCYTOMEGALOVIRUS ANTIBODY, [id number] 13:54:00 Test Item Value Reference Range Interpretation Comments CYTOMEGALOVIRUS IGM ANTIBODY Negative Negative, Equivocal (BEAKER) (test code = 3437) CMV IgM Result Interpretation: </= 0.8 Al Negative 0.9-1.0 Al Equivocal >/= 1.1 Al PositiveEBV ANTIBODY, [id number] 13:54:00 Test Item Value Reference Range Interpretation [...] Activity (test code = 108.0 % 70-130 24353-9) Lab Interpretation (test code = Normal 00308-6) [facility] JosePROTEIN C [id number] 10:42:00 Test Item Value Reference Range Interpretation Comments PROTEIN C ACTIVITY (BEAKER) (test 108.0 % 70.0-130.0 code = 582) Hemoglobin [id number] 16:04:00 Test Item Value Reference Range Interpretation Comments Hemoglobin A1C (test code = 4548-4) 4.6 % 4.3-6.1 Lab Interpretation (test code = Normal 78444-2) [facility] JoseHEMOGLOBIN [id number] 16:04:00 Test Item Value Reference Range Interpretation Comments HEMOGLOBIN A1C (BEAKER) (test code = 4.6 % 4.3-6.1 368) Hepatitis B surface [id number] 14:44:00 Test Item Value Reference Interpretation Comments Range Hep B S Ab (test 1462.6 See_Comment H [Automated code = 74976-0) message] The system which generated this result transmitted reference range : <8.0 mIU/mL. e reference range was not used to interpret this result as normal/abnormal . RACQUEL (test code = Diving Judge ID - RACQUEL) ROSIANGOperator ID - ROSIANG Lab Interpretation Abnormal (test code = 84058-3) [facility] JoseHEPATITIS B SURFACE [id number] 14:44:00 Test Item Value Reference Range Interpretation Comments HEPATITIS B SURFACE ANTIBODY 1462.6 mIU/mL <8.0 H (BEAKER) (test code = 647) Diving Judge ID - ROSIANGOperator ID - ROSIANGUrinalysis, [id number] 14:42:00 Test Item Value Reference Range Interpretation Comments Color, UA (test code Yellow = 5778-6) Clarity, UA (test Clear code = 5767-9) Specific [place], UA 1.012 1.001-1.035 (test code = 5811-5) pH, UA (test code = 8.0 5.0-8.0 5803-2) Protein, UA (test 70 mg/dL Negative A code = 05467-3) Glucose, UA (test Negative Negative code = 365) Ketones, UA (test Negative Negative code = 2514-8) Bilirubin, UA (test Negative Negative code = 36134-4) Blood, UA (test code Negative Negative = 68335-9) Nitrite, UA (test Negative Negative code = 5802-4) Leukocytes, UA (test Negative Negative code = 5799-2) Urobilinogen, UA 0.2 mg/dL 0.2-1 (test code = 68092-6) RBC, UA (test code = <1 See_Comment [Autom ated 05722-6) message] The system which generated this result [...] 4 See_Comment [Automate d (test code = 62562-8) messag e] The system which generated this result transmit liya reference range : /HPF. The reference range was not used to interpret this result as normal/abnormal . Hyaline Casts, UA 1 See_Comment [Automate d (test code = 90589-8) messag e] The system which generated this result transmit liya reference range : /LPF. The reference range was not used to interpret this result as normal/abnormal . Specimen Source (test code = 2795) RACQUEL (test code = RACQUEL) Diving Judge ID - [auto]Diving Judge ID - tech Lab Interpretation Abnormal (test code = 54311-5) [facility] JoseURINALYSIS W/ [id number] 14:42:00 Test Item Value Reference Range Interpretation [...] /LPF 514) SOURCE(BEAKER) (test code = 2795) Diving Judge ID - [auto]Diving Judge ID - techHepatitis B surface [id number] 14:30:00 Test Item Value Reference Range Interpretation Comments HBsAg Screen (test code Nonreactive Nonreactive = 5195-3) RACQUEL (test code = RACQUEL) Specimen is considered negative for HBsAg. Lab Interpretation (test Normal code = 47784-9) [facility] JoseHepatitis B core antibody, [id number] 14:30:00 Test Item Value Reference Range Interpretation Comments Hep B C IgM (test code = Nonreactive Nonreactive 93147-7) RACQUEL (test code = RACQUEL) Diving Judge ID - NOEL Lab Interpretation (test Normal code = 78102-0) [facility] JoseHepatitis C [id number] 14:30:00 Test Item Value Reference Range Interpretation Comments Hepatitis C Ab (test Nonreactive Nonreactive code = 80814-0) RACQUEL (test code = RACQUEL) Diving Judge ID - NOEL Lab Interpretation (test Normal code = 58926-0) [facility] JoseHIV-1 Antigen with HIV-1/2 [id number] 14:30:00 Test Item Value Reference Range Interpretation Comments HIV-1 Antigen with HIV Nonreactive Nonreactive 1&2 Antibody (test code = 15061-2) RACQUEL (test code = RACQUEL) Diving Judge ID - NOEL Lab Interpretation (test Normal code = 98165-5) [facility] JoseHEPATITIS B SURFACE [id number] 14:30:00 Test Item Value Reference Range Interpretation Comments HEPATITIS B SURFACE ANTIGEN (2) Nonreactive Nonreactive (BEAKER) (test code = 2585) Specimen is considered negative for HBsAg.HEPATITIS B CORE ANTIBODY, IGM 2020-10-07 14:30:00 Test Item Value Reference Range Interpretation Comments HEPATITIS B CORE IGM ANTIBODY Nonreactive Nonreactive (BEAKER) (test code = 645) Diving Judge ID - ROSNORTHAMPTON [facility] HOSPITALEPATITIS C [id number] 14:30:00 Test Item Value Reference Range Interpretation Comments HEPATITIS C ANTIBODY (BEAKER) Nonreactive Nonreactive (test code = 367) Diving Judge ID - NOELGHIV-1 ANTIGEN WITH HIV-1/2 [id number] 14:30:00 Test Item Value Reference Range Interpretation Comments HIV-1 ANTIGEN WITH HIV 1\T\2 Nonreactive Nonreactive ANTIBODY (2) (MELONIE) (test code = 2586) Diving Judge ID - NOELGAntithrombin [id number] 14:04:00 Test Item Value Reference Range Interpretation Comments Antithrombin III (test code = 48975-9) 94.0 % 80-120 Lab Interpretation (test code = Normal 66622-5) [facility] JoseANTITHROMBIN [id number] 14:04:00 Test Item Value Reference Range Interpretation Comments ANTITHROMBIN III ACTIVITY (MELONIE) 94.0 % 80.0-120.0 (test code = 711) Direct AHG (JOHANN)/Direct [id number] 13:47:00 Test Item Value Reference Range Interpretation Comments Direct AHG-IGG (test code = 1006-6) NEGATIVE Direct AHG-C3B, C3D (test code = NEGATVIE 1003-3) [facility] JoseComprehensive metabolic [id number] 13:42:00 Test Item Value Reference Range Interpretation Comments Protein, Total (test 6.9 See_Comment [Autom ated code = 2885-2) message] The system which generated this result transmit liya reference range : 6.0 - 8.3 gm/dL . The reference range was not u sed to interpret th is result as normal/abnormal . Albumin (test code = 3.9 g/dL 3.5-5 40884-4) Alkaline Phosphatase 65 U/L 40-150 (test code = 6768-6) Total Bilirubin (test 0.3 mg/dL 0.2-1.2 code = 1975-2) Sodium (test code = 140 meq/L 010-229 6188-2) Potassium (test code 4.2 meq/L 3.5-5.1 = 2823-3) Chloride (test code = 102 meq/L 98-107 2075-0) CO2 (test code = 23 meq/L 22-29 8-9) BUN (test code = 39 mg/dL 7-21 H 3094-0) Creatinine (test code 9.59 mg/dL 0.57-1.25 H = 2160-0) Glucose (test code = 91 mg/dL 70-105 2345-7) Calcium (test code = 8.5 mg/dL 8.4-10.2 58756-0) AST (test code = 16 U/L 5-34 1920-8) ALT (test code = 11 U/L 6-55 1742-6) EGFR (test code = 6 mL/min/1.73 [place] [address]-0) NOT ACCURATE CREATININE CLEARANCE IN PREDICTING GLOMERULAR FILTRATION RATE . ESTIMATED GFR I S NOT APPLICABLE FOR DIALYSIS PATIEN TS. RACQUEL (test code = RACQUEL) Diving Judge ID - ROSMARGIG Lab Interpretation Abnormal (test code = 49757-3) [facility] JoseCOMPREHENSIVE METABOLIC [id number] 13:42:00 Test Item Value Reference Range Interpretation [...] S NOT APPLICABLE FOR DIALYSIS PATIEN TS. Diving Judge ID - ROSIANGGamma Glutamyl Transferase (GGT)2020-10-07 13:37:00 Test Item Value Reference Range Interpretation Comments GGT (test code = 2324-2) 21 U/L 9-64 RACQUEL (test code = RACQUEL) Diving Judge ID - ROSIANG Lab Interpretation (test Normal code = 21625-2) [facility] JosePhosphorus2021-04-27 13:37:00 Test Item Value Reference Range Interpretation Comments Phosphorus (test code = 5.7 mg/dL 2.3-4.7 H 2777-1) RACQUEL (test code = RACQUEL) Diving Judge ID - ROSIANG Lab Interpretation (test Abnormal code = 31644-2) [facility] JoseUric [id number] 13:37:00 Test Item Value Reference Range Interpretation Comments Uric Acid (test code = 8.4 mg/dL 2.6-7.2 H 3084-1) RACQUEL (test code = RACQUEL) Diving Judge ID - ROSIANG Lab Interpretation (test Abnormal code = 54951-1) [facility] JosePHOSPHORUS2021-04-27 13:37:00 Test Item Value Reference Range Interpretation Comments PHOSPHORUS (BEAKER) (test code = 5.7 mg/dL 2.3-4.7 H 604) Diving Judge ID - ROSIANGURIC [id number] 13:37:00 Test Item Value Reference Range Interpretation Comments URIC ACID (BEAKER) (test code = 8.4 mg/dL 2.6-7.2 H 773) Diving Judge ID - ROSIANGGAMMA GLUTAMYL TRANSFERASE (GGT)2020-10-07 13:37:00 Test Item Value Reference Range Interpretation Comments GAMMA GLUTAMYL TRANSFERASE (BEAKER) 21 U/L 9-64 (test code = 364) Diving Judge ID - ROSIANGPTH, [id number] 13:36:00 Test Item Value Reference Range Interpretation Comments PTH (test code = 2731-8) 466.5 pg/mL 8.5-72.5 H RACQUEL (test code = RACQUEL) Diving Judge ID - BJ Lab Interpretation (test Abnormal code = 04708-5) [facility] JosePTH, [id number] 13:36:00 Test Item Value Reference Range Interpretation Comments PARATHYROID HORMONE INTACT 466.5 pg/mL 8.5-72.5 H (BEAKER) (test code = 577) Diving Judge ID - NOELGPT/[id number] 13:34:00 Test Item Value Reference Interpretation Comments Range Protime (test code = 13.9 See_Comment [Autom ated 5902-2) message] The system which generated this result transmitted reference range : 11.9 - 14.2 seconds. The reference range was not used to interpret this result as normal/abnormal . INR (test code = 1.11 See_Comment [Automated 1751-6) message] The system which generated this result transmitted reference range : <=5.90. The reference range was not used to interpret this result as normal/abnormal . PTT (test code = 37.1 See_Comment H [Automated 65280-4) message] The system which generated this result [...] valves. Lab Interpretation Abnormal (test code = 20331-1) [facility] JosePT/[id number] 13:34:00 Test Item Value Reference Range Interpretation [...] is2.5-3.5 for patients wiht mechanical heart valves.Prothrombin time/[id number] 13:33:00 Test Item Value Reference Interpretation Comments Range Protime (test code = 13.9 See_Comment [Autom ated 6552-2) message] The system which generated this result transmitted reference range : 11.9 - 14.2 seconds. The reference range was not used to interpret this result as normal/abnormal . INR (test code = 1.11 See_Comment [Automated 8941-6) message] The system which generated this result [...] valves. Lab Interpretation Normal (test code = 95480-1) [facility] JoseABORH, [id number] 13:33:00 Test Item Value Reference Range Interpretation Comments ABO Grouping (test code = 2588) O Rh Factor (test code = 2589) POS [facility] JosePROTHROMBIN TIME/[id number] 13:33:00 Test Item Value Reference Range Interpretation Comments PROTIME (BEAKER) 13.9 seconds 11.9-14.2 (test code = 759) INR (BEAKER) (test 1.11 See_Comment [Automat ed message] code = 370) The system [employer]imb[employer] generated this result transmitted ref erence range: [...] heart valves.CBC with platelet count + automated [id number] 13:05:00 Test Item Value Reference Range Interpretation Comments WBC (test code = 6690-2) 6.4 See_Comment [A utomated message] The system [employer]imb[employer] generated this result transmitted ref erence range: 3.5 - 10 .5 K/L. The refe rence range was not u sed to interpret this result as normal/abnor mal. RBC (test code = 789-8) 2.95 See_Comment L [Au tomated message] The system [employer] generated this result transmitted ref erence range: 3.93 - 5 .22 M/L. The refe rence range was not u sed to interpret this result as normal/abnor mal. MCHC (test code = 786-4) 31.4 See_Comment L [A utomated message] The system [employer] generated this result transmitted ref erence range: [...] code = 318 See_Comment [Aut omated message] 907-3) The system [employer] generated this result transmitted ref erence range: 150 - 45 0 K/CU MM. The referen ce range was not u sed to interpret this result as normal/abnor mal. MPV (test code = 9.7 fL 9.4-12.3 17369-5) nRBC (test code = 413) 0 See_Comment [Aut omated message] The system [employer]imb[employer] generated this result transmitted ref erence range: [...] See_Comment [Aut omated message] 670) The system [employer] generated this result transmitted ref erence range: 1.56 - 6 .13 K/L. The refe rence range was not u sed to interpret this result as normal/abnor mal. # Lymphs (test code = 1.43 See_Comment [Auto mated message] 414) The system [employer] generated this result transmitted ref erence range: 1.18 - 3 .74 K/L. The refe rence range was not u sed to interpret this result as normal/abnor mal. # Monos (test code = 0.48 See_Comment H [Autom ated message] 415) The system [employer] generated this result transmitted ref erence range: 0.24 - 0 .36 K/L. The refe rence range was not u sed to interpret this result as normal/abnor mal. # Eos (test code = 416) 0.28 See_Comment [Au tomated message] The system [employer]imb[employer] generated this result transmitted ref erence range: 0.04 - 0 .36 K/L. The refe rence range was not u sed to interpret this result as normal/abnor mal. # Baso (test code = 417) 0.04 See_Comment [A utomated message] The system [employer] generated this result transmitted ref erence range: 0.01 - 0 .08 K/L. The refe rence range was not u sed to interpret this result as normal/abnor mal. Immature 0 % 0-1 Granulocytes-Relative (test code = 2801) Lab Interpretation (test Abnormal code = 57004-6) [facility] W/PLT COUNT & AUTO [id number] 13:05:00 Test Item Value Reference Range Interpretation [...] (BEAKER) (test code = 2801) T SPOT [id number] 14:01:00 Test Item Value Reference Range Interpretation Comments T-SPOT TB (BEAKER) (test code = Negative 1683) NEG CONTROL SPOT COUNT (BEAKER) 0 (test code = 1684) PANEL A SPOT (BEAKER) (test code = 0 1685) PANEL B SPOT (BEAKER) (test code = 0 1686) POS CONTROL SPOT CT (BEAKER) (test 0 code = 1687) SCAN RESULT (test code = 3587400) See Scanned ReportECG 12 [id number] 13:44:09Interface, External Ris In - 09/25/2020 1:44 PM CDTVentricular Rate 75 BPMAtrial Rate 75 BPMP-R Interval 154 msQRS Duration 86 msQ-T Interval 442 msQTC Calculation(Bazett) 493 msP [place] 73 degreesR [place] 83 degreesT [place] 64 degreesNormal sinus rhythmRight atrial enlargementProlonged QTAbnormal ECGNo previous ECGs availableConfirmed by MD Guzman Roberto ([id number]) on 09/25/2020 1:44:07 [facility]US, [facility], WITH [id number] 13:22:00Reason for Exam:->to assess iliac vesselsKidney Transplant Evaluation [facility]Name: MARIANA RODRIGESKARMANELLYBalbina MEYER : 1985 Sex: FFINAL [...] Verified Date/Time: 09/25/2020 13:22:46 US pelvis with [id number] 13:22:00Interface, External Ris In - 09/25/2020 1:24 [...] Cindy Wright MDReport Verified Date/Time: 09/25/2020 13:22:46 [facility] AngelesUS, ABDOMINAL, [id number] 13:01:00Reason for Exam:->Kidney Transplant EvaluationJAMIE RESNICK [facility]Name: MARIANA RODRIGES : 1985 Sex: F [...] CINDY WRIGHT MD on 101:01 PMUS abdomen [id number] 13:01:00Interface, External Ris In - 09/25/2020 1:03 [...] Cindy Gonzalez MDReport Verified Date/Time: 09/25/2020 13:01:08 [facility] [id number] 12:42:00 Test Item Value Reference Range Interpretation [...] Borderline 130-159 High 160-189 Very High >=190 Diving Judge ID - [id number] Echo W/Doppler(CW/PW/Color)2020-09-25 10:35:55Ejection FractionSLEH ECHO HEARTLAB MKCKESSON CPACSInterface, External Ris In - 09/25/2020 10:36 AM CDTTransthoracic Echocardiography Report (TTE) Demographics Patient Name MARIANA RODRIGES Dateof Study 09/25/2020 RAMONA MEYER Gender Female Visit Number [id number] Race Black Room Number OP Number Date of 1985 Referring Anderson Zamora Physician Bunny Age 35 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 Interpreting Physician SHASHI Martino Procedure [...] systolic reversal. Atrial septal position continuously bows oiwf-vv-zpxde, consistent with elevated LA pressure . Ytsj-kv-shoadelg t ricuspid regurgitation. Estimated peak systolic PA [...] Atrial Septum Atrial septal position continuously bows islc-lc-pgrud, consistent with elevated LA pressure . Aortic Valve Normal AoV structure. There is trace aortic regurgitation. Mitral Valve Mild MV leaflet thickening. At least moderate eccentric posteriorly directed mitral regurgitation.Tricuspid Valve TV structure is normal. Iwpf-vk-yobydduw tricuspid regurgitation. Estimated peak systolic PA pressure [...] CO: 6.17 l/min LVOT CI: 3.72 l/min/m^2[facility], CHEST, 2 [id number] 10:28:00Reason for Exam:->Kidney Trans[facility] EvaluationCH[facility] : 1985 Sex: F FINAL [...] MDRmoses Verified Date/Time: 09/25/2020 10:28:23 Reading Location: [facility] Reading Room [address] [place] [address] XR chest 2 views 2020-09-25 10:28:00Interface, External [...] MDReport Verified Date/Time: 09/25/2020 10:28:23 Reading Location: [facility] Reading Room [address] [place] [address] [facility] [id number] 14:34:00 Test Item Value Reference Range Interpretation Comments UR HCG QUAL (test code = HCGQLU) NEGATIVE NEGATIVE COVID 19 Asymptomatic IH [id number] 12:06:00 Test Item Value Reference Range Interpretation [...] COMMENTS: If not done this admissionBASIC METABOLIC [id number] 11:25:00 Test Item Value Reference Range Interpretation [...] = 8.3 mg/dL 8.0-10.5 N CA) PROTHROMBIN [id number] 11:22:00 Test Item Value Reference Range Interpretation [...] o prevent recurre nt infarct). CBC W/AUTO [id number] 11:20:00 Test Item Value Reference Range Interpretation [...] NO = MDIFF) - XR CHEST 1 [id number] 11:15:00 [facility] 1985 Sex: F FAX: Abimael Gallardo MD [phone] [place]: St: REG Name: MARIANA RODRIGES [facility] : 1985 Age/S: 35/F [address] [place] [address] Unit #: [id number] Loc: [place] [address] Phys: Abimael Isaac MD Acct: [id number] Dis Date: Status: [place] [facility] [place] #: [phone] Exam Date: 06/03/2020 1052 FAX #: [phone] Reason: PRE-OP EXAMS: CPT CODE: [id number] XR CHEST 1 V 48422 EXAM: XR CHEST 1 VIEW DATE: 06/03/2020 9:40 AM : 1985; Age: 35 years y/o Female INDICATION: AVF malfunction, PRE-OP COMPARISON: March 25, 2020 TECHNIQUE: AP chest. IMPRESSION: Lines, tubes and hardware: Stable. Heart, mediastinum and lungs: Heart appears borderline enlarged. No consolidation or pleural effusion is seen. No pneumothorax. SL: [id number] at 1115 Reported and signed by: Marcy Montes D.O. CC: Abimael Isaac MD Technologist: Ana Maria Callaway RT(R) Trnbethany Date/Time/By: 06/03/2020 (1056) : By: [email or web address] Orig Print D/T: S: 06/03/2020 (1434) PAGE 1 Signed ReportCBC W/AUTO [id number] 11:13:00 Test Item Value Reference Range Interpretation [...] DIFF REQUIRED (test code = MDIFF) PROTHROMBIN [id number] 11:57:00 Test Item Value Reference Range Interpretation [...] o prevent recurre nt infarct). BASIC METABOLIC [id number] 11:39:00 Test Item Value Reference Range Interpretation [...] 9.9 mg/dL 8.0-10.5 N CA) HCG SERUM [id number] 11:23:00 Test Item Value Reference Range Interpretation Comments HCG SERUM QUAL (test code = SERUM NEGATIVE NEGATIVE HCGQL) CBC W/AUTO [id number] 11:17:00 Test Item Value Reference Range Interpretation [...] (test code NO = MDIFF) CBC W/AUTO [id number] 11:15:00 Test Item Value Reference Range Interpretation [...] code = MDIFF) - XR CHEST 1 [id number] 11:04:00 FAX: Abimael Gallardo MD [phone] [place]: St: REG Name: MARIANA RODRIGES [facility] : 1985 Age/S: 34/F [address] [place] [address] Unit#: [id number] Loc: [place] [address] Phys: Abimael Isaac MD Acct: [id number] Dis Date: Status: [place] [facility] [place]ONE #: [phone] Exam Date: 03/25/2020 1103 FAX #: [phone] Reason: PRE OP EXAMS: CPT CODE: [id number] XR CHEST 1 V [id number] PROCEDURE: CHEST SINGLE VIEW INDICATION: PRE OP;ESRD COMPARISON: March 2014 FINDINGS: TUBES AND LINES: Tunneledright hemodialysis catheter tip at the level of mid superior vena cava. CHEST: The lungs are clear. The pleural, cardiomediastinal silhouette, and bony thorax are normal. IMPRESSION: No acute findings. SL: [id number] Reported and signed by: Josesito Tolentino M.D. CC: Abimael Isaac MD Technologist: More LamaRT(R) Trnscrd Date/Time/By: 03/25/2020 (0015) : By: Christian Orig Print D/T: S: 03/25/2020 (5510) PAGE 1 Signed ReportCOVID 19 Asymptomatic IH [id number] 10:59:00 Test Item Value Reference Range Interpretation [...]
--- NOTE | 2021-05-27 10:25 | RAD REPORT ---
EXAM DESCRIPTION: RAD - Chest Single View - 05/27/2021 10:15 am CLINICAL HISTORY: ESRD, missed dialysis;Dyspnea COMPARISON: No comparisonsChest Single View dated 03/03/2021; Chest Single View dated 02/17/2021; Chest Single View dated 11/13/2020; Chest Single View dated 11/22/2019 FINDINGS: Lines: None. Lungs: Diffuse prominence of the pulmonary interstitium. Pleural: No significant pleural effusions or pneumothorax. Cardiac: Cardiomegaly. Bones: No acute fractures. Other: IMPRESSION: Vascular congestion but no evidence of lise pulmonary edema.
[2021-05-27] MEDS ORDERED: ACETAMINOPHEN 325 MG TABLET ONE (10:48)
[2021-05-27 12:21] LABS: Potassium 4.6 mmol/L (3.5-5.1)
--- NOTE | 2021-05-27 12:50 | ER ---
Nurse's Notes [facility] Name: Nely Quinones Age: 36 yrs Sex: Female : 1985 Arrival Date: 05/27/2021 Time: 09:12 Bed 7 Private MD: Diagnosis: End stage renal disease;Essential (primary) hypertension Presentation: 05/27 09:21 Chief complaint: Patient states: Sent by dialysis center, because she has missed about ll1 2 weeks of her dialysis. Coronavirus screen: Vaccine status: Patient reports being unvaccinated. Client denies travel out of the [place] in the last 14 days. At this time, the client does not indicate any symptoms associated with coronavirus-19. Ebola Screen: Patient denies travel to an Ebola-affected area in the 21 days before illness onset. Initial Sepsis Screen: Does the patient meet any 2 criteria? HR > 90 bpm. No. Patient's initial sepsis screen is negative. Does the patient have a suspected source of infection? No. Patient's initial sepsis screen is negative. Risk Assessment: Do you want to hurt yourself or someone else? Patient reports no desire to harm self or others. Onset of symptoms is unknown. 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 - Social history:: Smoking status: Patient denies any tobacco usage or history of. - Family history:: not pertinent. - Hospitalizations: : No recent hospitalization is reported. Screenin:43 Abuse screen: Denies threats or abuse. Nutritional screening: No deficits noted. ll3 Tuberculosis screening: No symptoms or risk factors identified. Fall Risk IV access (20 points). Mental Status- Oriented to own ability (0 pts). Total Benavides Fall Scale indicates No Risk (0-24 pts). Assessment: 09:43 General: Appears in no apparent distress. uncomfortable, Behavior is calm, cooperative. ll3 Pain: Complains of pain in [place] Pain currently is 3 out of 10 on a pain scale. Neuro: Level of Consciousness is awake, alert, obeys commands, Oriented to person, place, time, situation, Speech is normal, Facial symmetry appears normal, Reports headache. Cardiovascular: Patient's skin is warm and dry. Cardiovascular: Dialysis shunt: in the left arm, with palpable thrill, with auscultated bruit, with no erythema, with no edema, no bleeding noted. Respiratory: Airway is patent Respiratory effort is even, unlabored, Respiratory pattern is regular, symmetrical. Derm: Skin is pink, warm \T\ dry. 11:00 Reassessment: Patient appears in no apparent distress at this time. No changes from ll3 previously documented assessment. Patient and/or family updated on plan of care and expected duration. Pain level reassessed. Patient is alert, oriented x 3, equal unlabored respirations, skin warm/dry/pink. 12:15 Reassessment: Patient appears in no apparent distress at this time. No changes from ll3 previously documented assessment. Patient and/or family updated on plan of care and expected duration. Pain level reassessed. Patient is alert, oriented x 3, equal unlabored respirations, skin warm/dry/pink. 13:11 Reassessment: Patient appears in no apparent distress at this time. No changes from ll3 previously documented assessment. Patient and/or family updated on plan of care and expected duration. Pain level reassessed. Patient is alert, oriented x 3, equal unlabored respirations, skin warm/dry/pink. Vital Signs: 09:21 BP 212 / 131; Pulse 94; Resp 17; Temp 98.3; Pulse Ox 100% ; Weight 65.77 kg; Height 5 ll1 ft. 2 in. (157.48 cm); Pain 0/10; 09:43 BP 198 / 117; Pulse 85; Resp 16; Pulse Ox 100% on R/A; ll3 10:50 BP 195 / 134; Pulse 88; Resp 15; Pulse Ox 100% ; jl7 12:39 BP 192 / 134; Pulse 86; Resp 15; Pulse Ox 100% ; ll3 13:12 BP 192 / 134; Pulse 86; Resp 15; Pulse Ox 100% on R/A; ll3 09:21 Body Mass Index 26.52 (65.77 kg, 157.48 cm) ll1 ED Course: 09:12 Patient arrived in ED. as 09:13 Serge Neil MD is Attending Physician. rn 09:20 Arm band placed on Patient placed in an exam room, on a stretcher. ll1 09:22 Ricardo Magdaleno, RN is Primary Nurse. ll3 09:23 Triage completed. ll1 09:33 EKG done, by ED staff, reviewed by Serge Neil MD. jl7 09:43 Patient has correct armband on for positive identification. Bed in low position. Call ll3 light in reach. Side rails up X 1. 09:43 Initial lab(s) drawn, by me, sent to lab. Inserted saline lock: 22 gauge in right ll3 antecubital area, using aseptic technique. Blood collected. 10:14 XRAY Chest (1 view) In Process Unspecified. EDMS 12:48 Sami Monge DO is Referral Physician. rn 13:13 No provider procedures requiring assistance completed. IV discontinued, intact, ll3 bleeding controlled, No redness/swelling at site. Pressure dressing applied. Administered Medications: 10:50 Drug: Tylenol 650 mg Route: PO; jl7 13:13 Follow up: Response: No adverse reaction ll3 Outcome: 12:49 Discharge ordered by MD. rn 13:13 Discharged to home ambulatory. ll3 13:13 Condition: stable 13:13 Discharge instructions given to patient, Instructed on discharge instructions, follow up and referral plans. Demonstrated understanding of instructions, follow-up care. 13:13 Patient left the ED. ll3 Signatures: Dispatcher [employer] EDMS Kristy Lazo Roman, MD MD rn Leal, Jahala, RN RN jl7 Neal Hernández RN RN ll1 Ricardo Magdaleno, CHELA RN ll3
--- NOTE | 2021-05-27 12:50 | EDPHYS ---
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 09:34 Patient reports has not had dialysis in over a week. States had a cold and was not rn allowed to have dialysis. Reports mild shortness of breath. Otherwise feels okay. Does not feel ill anymore. No chest pain. Try to go and have dialysis today and turned away and told to go to ER to get blood drawn.. Onset: The symptoms/episode began/occurred at an unknown time. Severity of symptoms: At their worst the symptoms were mild in the emergency department the symptoms are unchanged. The patient has experienced similar episodes in the past. The patient has not recently seen a physician. NEUROLOGIST: 10:50 LMP N/A - Irregular menses jl7 Historical: - Allergies: 09:20 No Known Allergies; ll1 - PMHx: 09:20 Hypertensive disorder; dialysis L arm access; Asthma; Bronchitis; ll1 - Immunization history:: Client reports having NOT received the Covid vaccine. - Social history:: Smoking status: Patient denies any tobacco usage or history of. - Family history:: not pertinent. - Hospitalizations: : No recent hospitalization is reported. ROS: 09:34 Constitutional: Negative for fever, chills, and weight loss, Eyes: Negative for injury, rn pain, redness, and discharge, ENT: Negative for injury, pain, and discharge, Neck: Negative for injury, pain, and swelling, Cardiovascular: Negative for chest pain, palpitations Respiratory: Negative for cough, wheezing, and pleuritic chest pain, Abdomen/GI: Negative for abdominal pain, nausea, vomiting, diarrhea, and constipation, MS/Extremity: Negative for injury and deformity, Skin: Negative for injury, rash, and discoloration, Neuro: Negative for headache, weakness, numbness, tingling, and seizure. Exam: 09:34 Constitutional: This is a well developed, well nourished patient who is awake, alert, rn and in no acute distress. Ambulatory to room without difficulty or requiring assistance Head/Face: Normocephalic, atraumatic. Eyes: Periorbital areas with no swelling, redness, or edema. Cardiovascular: Regular rate and rhythm. No pulse deficits. Respiratory: No increased work of breathing, no retractions or nasal flaring. Abdomen/GI: Soft, non-tender Skin: Warm, dry MS/ Extremity: Pulses equal, no cyanosis. Left upper extremity fistula with thrill Neuro: Awake and alert, GCS 15, oriented to person, place, time, and situation. Cranial nerves II-XII grossly intact. Motor strength 5/5 in all extremities. Sensory grossly intact. Cerebellar exam normal. Normal gait. Vital Signs: 09:21 BP 212 / 131; Pulse 94; Resp 17; Temp 98.3; Pulse Ox 100% ; Weight 65.77 kg; Height 5 ll1 ft. 2 in. (157.48 cm); Pain 0/10; 09:43 BP 198 / 117; Pulse 85; Resp 16; Pulse Ox 100% on R/A; ll3 10:50 BP 195 / 134; Pulse 88; Resp 15; Pulse Ox 100% ; jl7 12:39 BP 192 / 134; Pulse 86; Resp 15; Pulse Ox 100% ; ll3 13:12 BP 192 / 134; Pulse 86; Resp 15; Pulse Ox 100% on R/A; ll3 09:21 Body Mass Index 26.52 (65.77 kg, 157.48 cm) ll1 MDM: 09:14 Patient medically screened. rn 12:46 Differential Diagnosis End-stage renal disease, hyperkalemia, pulmonary edema. Data rn reviewed: vital signs, nurses notes, lab test result(s), EKG, radiologic studies, plain films, and as a result, I will discharge patient. Data interpreted: Pulse oximetry: on room air is 98 %. Interpretation: normal. Counseling: I had a detailed discussion with the patient and/or guardian regarding: the historical points, exam findings, and any diagnostic results supporting the discharge/admit diagnosis, lab results, radiology results, the need for outpatient follow up, to return to the emergency department if symptoms worsen or persist or if there are any questions or concerns that arise at home. Special discussion: I discussed with the patient/guardian in detail that at this point there is no indication for admission to the hospital. It is understood, however, that if the symptoms persist or worsen the patient needs to return immediately for re-evaluation. ED course: Patient without hyperkalemia, 100% on room air, states feels fine. Call Dr. Monge's office to try to get patient dialysis appointment today, waiting on callback. 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 She states planning on going to dialysis tomorrow and will take lab values obtained today to them since she feels fine. Understands risks of waiting. Will discharge home.. 05/27 09:24 Order name: Basic Metabolic Panel; Complete Time: 12:31 rn 05/27 09:24 Order name: XRAY Chest (1 view); Complete Time: 10:32 rn 05/27 09:24 Order name: IV Start; Complete Time: 09:43 rn 05/27 09:24 Order name: EKG; Complete Time: 09:25 rn 05/27 09:24 Order name: EKG - Nurse/Tech; Complete Time: 09:33 rn Administered Medications: 10:50 Drug: Tylenol 650 mg Route: PO; jl7 13:13 Follow up: Response: No adverse reaction ll3 Disposition Summary: 05/27/21 12:49 Discharge Ordered Location: Home rn Problem: an ongoing problem rn Symptoms: are unchanged rn Condition: Stable rn Diagnosis - End stage renal disease rn - Essential (primary) hypertension rn Followup: rn - With: Sami Monge, DO - When: Upon discharge from the Emergency Department - Reason: Recheck today's complaints, Re-evaluation by your physician Discharge Instructions: - Discharge Summary Sheet rn - Hypertension, Adult rn - 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
[2021-05-27 13:29] VITALS: TEMP 98.3; O2SAT 100
[2021-05-27 13:49] VITALS: BP 192/134
== END 2021-05-27 13:13 | disposition home or self-care (01) ==
LOC: ER 09:09
DX: I12.0 Hypertensive chronic kidney disease with stage 5 chronic kidney disease or end stage renal disease (principal); N18.6 End stage renal disease; J45.909 Unspecified asthma, uncomplicated; Z99.2 Dependence on renal dialysis; Z91.15 Patient's noncompliance with renal dialysis
CPT/HCPCS: 36415; 71045; 80048; 93005; 99284

== ENCOUNTER 2021-07-14 08:14 | Emergency (ER) | payer OTHER ==
--- OUTSIDE RECORDS SUMMARY | 2021-07-14 08:21 | XMS REPORT | Continuity of Care Document ---
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 correlation that includesa clinical event (e.g. thrombosi s, pregnancyloss, thrombocytopeni a) and persistent positiveantipho spholipid antibodies (IgM or IgG JENSEN>40 MPL/GPL,IgM or IgG anti-b2GPI antibodies ora lupus anticoagulant). International consensusguidel radha for APS suggest waiting at least 12weeks before retestin g to confirm antibodypersist ence. The Systemic Lupus Internati onalCollaborating Clinics immunologicalcl assification criteria for sy [facility] lupuserythemato vishal (SLE) include testing for [...] = RACQUEL) Performing Lab E[facility] [address] [place] [address] Daija Green MD, PhD, KRISHNA [facility] CenterProthrombin Gene [id number] 16:22:00 Test Item Value Reference Interpretation Comments Range PROTHROMBIN GENE NEGATIVE RESULT: G20 210A VARIANT NOT ANALYSIS (test DETECTED code = 3831869) Interpretation See Below INTERPRETATIO N: This (test code = individual is n egative 7011167) (normal) for th e [id number] in the Prothrombin/Fac tor II gene. Increased risk ofthrombophilia can be caused by a morgan iety of genetic and non-geneticfact ors not screened for by this assay. Laboratory test ing supervised and results monitored by Carol Steniberg,Ph.D., D [facility]JEFF[facility], [facility]. The [id number] mut ation [VW863177.1: g. 49373J>A (c.*97G>A)] in theProthrombin/ Factor II gene is the sec ond most common inherite d riskfactor for thrombosis occurring in approximately 2 % of Caucasians.Pres ence of the mutation is ass ociated with an elevation of prothrombin levels to about 30% above normal in heter ozygotes and to70% above nor mal in homozygotes. Pr othrombin (A05800G) mutat ions are detected by amp lification oftheir selecte d gene regions by poly merase chain reaction (PCR) andfluorescent probe hybridization t o the targeted region , followed bymelting curve analysis with a real Poxel e PCR system. Although rare,f alse positive or false negati ve results may occur. All resultsshould be interpreted in context of clinical findin gs, relevanthistory , and other laboratory data . Health care providers, plea se contact your local Ques t Diagnostics'gen etic counselor or carol abraham [phone] ([phone]) forassistance with interpreta tion of these results. This t est was developed and i ts analytical performancechar acteristics have been deter mined by [employer] [facility] [place]. It has not been cleared or appr elva bythe FDA. This assay has been validated pursu ant to the CLIAregulations and is used for clinical pu rposes. RACQUEL (test code = Performing Lab RACQUEL) EZ [facility] [address] [place] [address] Daija Green MD, PhD, KRISHNA [facility] CenterFactor 5 Leiden PCR (thrombotic risk)2020-10-11 13:14:00 Test Item Value Reference Interpretation Comments Range Factor V Leiden NEGATIVE FACTOR V LEI DEN (R506Q) Mutation (test VARIANT NOT D ETECTED code = 2109129) Interpretation See Below INTERPRETATIO N: This (test code = individual is n egative 7958347) (normal) for th e Factor VLeiden (R506Q) [...] of the m ost common causes ofinheri liay thrombophilia. This mutation causes resistan ce todegradation [...] Ques t Diagnosticsgene tic counselor or call [facility] ([phone]) for assistancewith interpretation of these results. This t est was developed and i ts analytical performancechar acteristics have been deter mined by [employer] [facility]. It has not been cleared or appr elva bythe FDA. This assay has been validated pursu ant to the CLIAregulations and is used for clinical pu rposes. RACQUEL (test code = Performing Lab RACQUEL) [facility] [address] [place] [address] Daija Green MD, PhD, KRISHNA [facility] CenterProtein S [id number] 03:55:00 Test Item Value Reference Range Interpretation Comments Protein S 95 See_Comment Decreased leve ls of Functional (test Protein S a ctivity code = 1903315) may be found in patients withhereditary deficiency, war farin therapy, vitami n k deficiency, dominick er disease,DIC, or recent thrombos is as well as after surgery. In addition, it ma y bephysiologic i n . An elevated Protei n S activity is not clinicallysigni fican t. Only deficie ncies are associated with an increased thromboticrisk. [Automated mess age] The system [employer] generated this result transmit liya reference range : 60 - 140 % normal. The reference range was not used to interpret this result as normal/abnormal . RACQUEL (test code = Performing Lab RACQUEL) [facility]Z [facility] [address] [place] [address] Daija Green MD, PhD, KRISHNA [facility] CenterUrine [id number] 07:38:00 Test Item Value Reference Range Interpretation Comments Result (test code = See comment 6463-4) RACQUEL (test code = >100,000 col/mL enteric RACQUEL) organisms of >2 types. No further workup performed. Multiple organisms suggestive of colonization or contamination. Repeat collection recommended.40-49,000 col/mL skin beth [facility] CenterURINE [id number] 07:38:00 Test Item Value Reference Range Interpretation Comments CULTURE (BEAKER) (test code = See comment 1095) >100,000 col/mL enteric organisms of >2 types. No further workup performed. Multiple organismssuggestive of colonization or contamination. Repeat collection recommended.40-49,000 col/mL skin [id number] 14:26:00 Test Item Value Reference Range Interpretation Comments RPR (test code = 55971-9) Nonreactive Nonreactive Lab Interpretation (test code = Normal 35633-6) [facility] CenterRPR2021-04-28 14:26:00 Test Item Value Reference Range Interpretation Comments RPR SCREEN (BEAKER) (test code = Nonreactive Nonreactive 420) Varicella Zoster Antibody, [id number] 14:12:00 Test Item Value Reference Range Interpretation Comments Varicella IgG (test 2.8 code = 54341-9) RACQUEL (test code = RACQUEL) VARICELLA ZOSTER RESULT INTERPRETATIONS: <=0.8 Al Nonreactive: Presumed non-immune to VZV 0.9-1.0 Al Equivocal >=1.1 Al Reactive: Presumed immune to VZV [facility] CenterVARICELLA ZOSTER ANTIBODY, [id number] 14:12:00 Test Item Value Reference Range Interpretation Comments VARICELLA ZOSTER IGG (AL) (BEAKER) 2.8 (test code = 3197) VARICELLA ZOSTER RESULT INTERPRETATIONS: <=0.8 Al Nonreactive: Presumed non-immune to VZV 0.9-1.0 Al Equivocal >=1.1 Al Reactive: Presumed immune to VZVCytomegalovirus antibody, [id number] 13:54:00 Test Item Value Reference Range Interpretation Comments CYTOMEGALOVIRUS, IGG Positive Negative, A (test code = 3429) Equivocal RACQUEL (test code = RACQUEL) CMV IgG Result Interpretation: </= 0.8 Al Negative 0.9-1.0 Al Equivocal >/=1.1 Al Positive Lab Interpretation (test Abnormal code = 84922-6) [facility] CenterEBV-VCA antibody, [id number] 13:54:00 Test Item Value Reference Range Interpretation Comments ALETA BOWLING VIRAL Positive Negative, A CAPSID ANTIGEN IGG (test Equivocal code = 3415) RACQUEL (test code = RACQUEL) Aleta Bowling Viral Capsid Antigen IgG Result Interpretation: </= 0.8 Al Negative 0.9-1.0 Al Equivocal >/= 1.1 Al Positive Lab Interpretation (test Abnormal code = 50336-1) [facility] CenterEBV-VCA antibody, [id number] 13:54:00 Test Item Value Reference Range Interpretation Comments ALETA BOWLING VIRAL Negative Negative, CAPSID ANTIGEN IGM (test Equivocal code = 3418) RACQUEL (test code = RACQUEL) Aleta Bowling Viral Capsid Antigen IgM Result Interpretation: </= 0.8 Al Negative 0.9-1.0 Al Equivocal >/= 1.1 Al Positive Lab Interpretation (test Normal code = 48709-1) [facility] CenterCytomegalovirus antibody, [id number] 13:54:00 Test Item Value Reference Range Interpretation Comments CMV IGM (test code = Negative Negative, 3437) Equivocal RACQUEL (test code = RACQUEL) CMV IgM Result Interpretation: </= 0.8 Al Negative 0.9-1.0 Al Equivocal >/= 1.1 Al Positive Lab Interpretation (test Normal code = 28751-5) [facility] CenterCYTOMEGALOVIRUS ANTIBODY, [id number] 13:54:00 Test Item Value Reference Range Interpretation Comments CYTOMEGALOVIRUS, IGG (BEAKER) Positive Negative, Equivocal A (test code = 3429) CMV IgG Result Interpretation: </= 0.8 Al Negative 0.9-1.0 Al Equivocal >/=1.1 Al PositiveCYTOMEGALOVIRUS ANTIBODY, [id number] 13:54:00 Test Item Value Reference Range Interpretation Comments CYTOMEGALOVIRUS IGM ANTIBODY Negative Negative, Equivocal (BEAKER) (test code = 3437) CMV IgM Result Interpretation: </= 0.8 Al Negative 0.9-1.0 Al Equivocal >/= 1.1 Al PositiveEBV ANTIBODY, [id number] 13:54:00 Test Item Value Reference Range Interpretation [...] Activity (test code = 108.0 % 70-130 08614-6) Lab Interpretation (test code = Normal 30237-6) [facility] CenterPROTEIN C [id number] 10:42:00 Test Item Value Reference Range Interpretation Comments PROTEIN C ACTIVITY (BEAKER) (test 108.0 % 70.0-130.0 code = 582) Hemoglobin [id number] 16:04:00 Test Item Value Reference Range Interpretation Comments Hemoglobin A1C (test code = 4548-4) 4.6 % 4.3-6.1 Lab Interpretation (test code = Normal 67602-2) [facility] CenterHEMOGLOBIN [id number] 16:04:00 Test Item Value Reference Range Interpretation Comments HEMOGLOBIN A1C (BEAKER) (test code = 4.6 % 4.3-6.1 368) Hepatitis B surface [id number] 14:44:00 Test Item Value Reference Interpretation Comments Range Hep B S Ab (test 1462.6 See_Comment H [Automated code = 43588-7) message] The system which generated this result transmitted reference range : <8.0 mIU/mL. e reference range was not used to interpret this result as normal/abnormal . RACQUEL (test code = Heavy Cleaner ID - RACQUEL) ROSIANGOperator ID - ROSIANG Lab Interpretation Abnormal (test code = 15915-2) [facility] CenterHEPATITIS B SURFACE [id number] 14:44:00 Test Item Value Reference Range Interpretation Comments HEPATITIS B SURFACE ANTIBODY 1462.6 mIU/mL <8.0 H (BEAKER) (test code = 647) Heavy Cleaner ID - ROSIANGOperator ID - ROSIANGUrinalysis, [id number] 14:42:00 Test Item Value Reference Range Interpretation Comments Color, UA (test code Yellow = 5778-6) Clarity, UA (test Clear code = 5767-9) Specific Melba, UA 1.012 1.001-1.035 (test code = 5811-5) pH, UA (test code = 8.0 5.0-8.0 5803-2) Protein, UA (test 70 mg/dL Negative A code = 22438-8) Glucose, UA (test Negative Negative code = 365) Ketones, UA (test Negative Negative code = 2514-8) Bilirubin, UA (test Negative Negative code = 29850-3) Blood, UA (test code Negative Negative = 33951-1) Nitrite, UA (test Negative Negative code = 5802-4) Leukocytes, UA (test Negative Negative code = 5799-2) Urobilinogen, UA 0.2 mg/dL 0.2-1 (test code = 61479-0) RBC, UA (test code = <1 See_Comment [Autom ated 87369-0) message] The system which generated this result [...] 4 See_Comment [Automate d (test code = 90957-7) messag e] The system which generated this result transmit liya reference range : /HPF. The reference range was not used to interpret this result as normal/abnormal . Hyaline Casts, UA 1 See_Comment [Automate d (test code = 91867-2) messag e] The system which generated this result transmit liya reference range : /LPF. The reference range was not used to interpret this result as normal/abnormal . Specimen Source (test code = 2795) RACQUEL (test code = RACQUEL) Heavy Cleaner ID - [auto]Heavy Cleaner ID - tech Lab Interpretation Abnormal (test code = 12629-1) [facility] CenterURINALYSIS W/ [id number] 14:42:00 Test Item Value Reference Range Interpretation [...] /LPF 514) SOURCE(BEAKER) (test code = 2795) Heavy Cleaner ID - [auto]Heavy Cleaner ID - techHepatitis B surface [id number] 14:30:00 Test Item Value Reference Range Interpretation Comments HBsAg Screen (test code Nonreactive Nonreactive = 5195-3) RACQUEL (test code = RACQUEL) Specimen is considered negative for HBsAg. Lab Interpretation (test Normal code = 28455-9) [facility] CenterHepatitis B core antibody, [id number] 14:30:00 Test Item Value Reference Range Interpretation Comments Hep B C IgM (test code = Nonreactive Nonreactive 29713-5) RACQUEL (test code = RACQUEL) Heavy Cleaner ID - [facility] Interpretation (test Normal code = 54836-7) [facility] CenterHepatitis C [id number] 14:30:00 Test Item Value Reference Range Interpretation Comments Hepatitis C Ab (test Nonreactive Nonreactive code = 15373-6) RACQUEL (test code = RACQUEL) Heavy Cleaner ID - [facility] Lab Interpretation (test Normal code = 79546-2) [facility] CenterHIV-1 Antigen with HIV-1/2 [id number] 14:30:00 Test Item Value Reference Range Interpretation Comments HIV-1 Antigen with HIV Nonreactive Nonreactive 1&2 Antibody (test code = 70434-3) RACQUEL (test code = RACQUEL) Heavy Cleaner ID - [facility] Lab Interpretation (test Normal code = 44480-6) [facility] CenterHEPATITIS B SURFACE [id number] 14:30:00 Test Item Value Reference Range Interpretation Comments HEPATITIS B SURFACE ANTIGEN (2) Nonreactive Nonreactive (BEAKER) (test code = 2585) Specimen is considered negative for HBsAg.HEPATITIS B CORE ANTIBODY, IGM 2020-10-07 14:30:00 Test Item Value Reference Range Interpretation Comments HEPATITIS B CORE IGM ANTIBODY Nonreactive Nonreactive (BEAKER) (test code = 645) Heavy Cleaner ID - ROSIANGHEPATITIS C [id number] 14:30:00 Test Item Value Reference Range Interpretation Comments HEPATITIS C ANTIBODY (BEAKER) Nonreactive Nonreactive (test code = 367) [facility] - [facility] ANTIGEN WITH HIV-1/2 [id number] 14:30:00 Test Item Value Reference Range Interpretation Comments HIV-1 ANTIGEN WITH HIV 1\T\2 Nonreactive Nonreactive ANTIBODY (2) (MELONIE) (test code = 2586) Heavy Cleaner ID - NOELGAntithrombin [id number] 14:04:00 Test Item Value Reference Range Interpretation Comments Antithrombin III (test code = 89061-9) 94.0 % 80-120 Lab Interpretation (test code = Normal 97269-5) [facility] CenterANTITHROMBIN [id number] 14:04:00 Test Item Value Reference Range Interpretation Comments ANTITHROMBIN III ACTIVITY (MELONIE) 94.0 % 80.0-120.0 (test code = 711) Direct AHG (JOHANN)/Direct [id number] 13:47:00 Test Item Value Reference Range Interpretation Comments Direct AHG-IGG (test code = 1006-6) NEGATIVE Direct AHG-C3B, C3D (test code = NEGATVIE 1003-3) [facility] CenterComprehensive metabolic [id number] 13:42:00 Test Item Value Reference Range Interpretation Comments Protein, Total (test 6.9 See_Comment [Autom ated code = 2885-2) message] The system which generated this result transmit liya reference range : 6.0 - 8.3 gm/dL . The reference range was not u sed to interpret th is result as normal/abnormal . Albumin (test code = 3.9 g/dL 3.5-5 43293-0) Alkaline Phosphatase 65 U/L 40-150 (test code = 6768-6) Total Bilirubin (test 0.3 mg/dL 0.2-1.2 code = 1974-2) Sodium (test code = 140 meq/L 999-565 8267-2) Potassium (test code 4.2 meq/L 3.5-5.1 = 2823-3) Chloride (test code = 102 meq/L 98-107 2074-0) CO2 (test code = 23 meq/L 22-29 2027-9) BUN (test code = 39 mg/dL 7-21 H 3094-0) Creatinine (test code 9.59 mg/dL 0.57-1.25 H = 2160-0) Glucose (test code = 91 mg/dL 70-105 2345-7) Calcium (test code = 8.5 mg/dL 8.4-10.2 63514-9) AST (test code = 16 U/L 5-34 1920-8) ALT (test code = 11 U/L 6-55 1742-6) EGFR (test code = 6 mL/min/1.73 [place] [address]-4) NOT ACCURATE CREATININE CLEARANCE IN PREDICTING GLOMERULAR FILTRATION RATE . ESTIMATED GFR I S NOT APPLICABLE FOR DIALYSIS PATIEN TSChelsey RACQUEL (test code = RACQUEL) Heavy Cleaner ID - ROSIANG Lab Interpretation Abnormal (test code = 48285-1) [facility] CenterCOMPREHENSIVE METABOLIC [id number] 13:42:00 Test Item Value Reference Range Interpretation [...] S NOT APPLICABLE FOR DIALYSIS PATIEN TS. Heavy Cleaner ID - ROSIANGGamma Glutamyl Transferase (GGT)2020-10-07 13:37:00 Test Item Value Reference Range Interpretation Comments GGT (test code = 2324-2) 21 U/L 9-64 RACQUEL (test code = RACQUEL) Heavy Cleaner ID - ROSIANG Lab Interpretation (test Normal code = 32505-2) [facility] CenterPhosphorus2021-04-27 13:37:00 Test Item Value Reference Range Interpretation Comments Phosphorus (test code = 5.7 mg/dL 2.3-4.7 H 2777-1) RACQUEL (test code = RACQUEL) Heavy Cleaner ID - ROSIANG Lab Interpretation (test Abnormal code = 35546-1) [facility] CenterUric [id number] 13:37:00 Test Item Value Reference Range Interpretation Comments Uric Acid (test code = 8.4 mg/dL 2.6-7.2 H 3084-1) RACQUEL (test code = RACQUEL) Heavy Cleaner ID - ROSIANG Lab Interpretation (test Abnormal code = 92861-5) [facility] CenterPHOSPHORUS2021-04-27 13:37:00 Test Item Value Reference Range Interpretation Comments PHOSPHORUS (BEAKER) (test code = 5.7 mg/dL 2.3-4.7 H 604) Heavy Cleaner ID - ROSIANGURIC [id number] 13:37:00 Test Item Value Reference Range Interpretation Comments URIC ACID (BEAKER) (test code = 8.4 mg/dL 2.6-7.2 H 773) Heavy Cleaner ID - ROSIANGGAMMA GLUTAMYL TRANSFERASE (GGT)2020-10-07 13:37:00 Test Item Value Reference Range Interpretation Comments GAMMA GLUTAMYL TRANSFERASE (BEAKER) 21 U/L 9-64 (test code = 364) Heavy Cleaner ID - ROSIANGPTH, [id number] 13:36:00 Test Item Value Reference Range Interpretation Comments PTH (test code = 2731-8) 466.5 pg/mL 8.5-72.5 H RACQUEL (test code = RACQUEL) Heavy Cleaner ID - ROSIANG Lab Interpretation (test Abnormal code = 52659-5) [facility] CenterPTH, [id number] 13:36:00 Test Item Value Reference Range Interpretation Comments PARATHYROID HORMONE INTACT 466.5 pg/mL 8.5-72.5 H (BEAKER) (test code = 577) Heavy Cleaner ID - NOELGPT/[id number] 13:34:00 Test Item Value Reference Interpretation Comments Range Protime (test code = 13.9 See_Comment [Autom ated 5902-2) message] The system which generated this result transmitted reference range : 11.9 - 14.2 seconds. The reference range was not used to interpret this result as normal/abnormal . INR (test code = 1.11 See_Comment [Automated 2571-6) message] The system which generated this result transmitted reference range : <=5.90. The reference range was not used to interpret this result as normal/abnormal . PTT (test code = 37.1 See_Comment H [Automated 03396-3) message] The system which generated this result [...] valves. Lab Interpretation Abnormal (test code = 39154-3) [id number] 13:34:00 Test Item Value Reference Range Interpretation [...] is2.5-3.5 for patients wiht mechanical heart valves.Prothrombin time/[id number] 13:33:00 Test Item Value Reference Interpretation Comments Range Protime (test code = 13.9 See_Comment [Autom ated 5902-2) message] The system which generated this result transmitted reference range : 11.9 - 14.2 seconds. The reference range was not used to interpret this result as normal/abnormal . INR (test code = 1.11 See_Comment [Automated 6701-6) message] The system which generated this result [...] valves. Lab Interpretation Normal (test code = 18007-7) [facility] [id number] 13:33:00 Test Item Value Reference Range Interpretation Comments ABO Grouping (test code = 2588) O Rh Factor (test code = 2589) POS [facility]/[id number] 13:33:00 Test Item Value Reference Range Interpretation Comments PROTIME (BEAKER) 13.9 seconds 11.9-14.2 (test code = 759) INR (BEAKER) (test 1.11 See_Comment [Automat ed message] code = 370) The system [employer] generated this result transmitted ref erence range: [...] heart valves.CBC with platelet count + automated [id number] 13:05:00 Test Item Value Reference Range Interpretation Comments WBC (test code = 6690-2) 6.4 See_Comment [A utomated message] The system [employer] generated this result transmitted ref erence range: 3.5 - 10 .5 K/L. The refe rence range was not u sed to interpret this result as normal/abnor mal. RBC (test code = 789-8) 2.95 See_Comment L [Au tomated message] The system [employer] generated this result transmitted ref erence range: 3.93 - 5 .22 M/L. The refe rence range was not u sed to interpret this result as normal/abnor mal. MCHC (test code = 786-4) 31.4 See_Comment L [A utomated message] The system [employer] generated this result transmitted ref erence range: [...] See_Comment [Aut omated message] 777-3) The system [employer] generated this result transmitted ref erence range: 150 - 45 0 K/CU MM. The referen ce range was not u sed to interpret this result as normal/abnor mal. MPV (test code = 9.7 fL 9.4-12.3 53668-7) nRBC (test code = 413) 0 See_Comment [Aut omated message] The system [employer] generated this result transmitted ref erence range: [...] See_Comment [Aut omated message] 670) The system [employer] generated this result transmitted ref erence range: 1.56 - 6 .13 K/L. The refe rence range was not u sed to interpret this result as normal/abnor mal. # Lymphs (test code = 1.43 See_Comment [Auto mated message] 414) The system [employer] generated this result transmitted ref erence range: 1.18 - 3 .74 K/L. The refe rence range was not u sed to interpret this result as normal/abnor mal. # Monos (test code = 0.48 See_Comment H [Autom ated message] 415) The system [employer] generated this result transmitted ref erence range: 0.24 - 0 .36 K/L. The refe rence range was not u sed to interpret this result as normal/abnor mal. # Eos (test code = 416) 0.28 See_Comment [Au tomated message] The system [employer] generated this result transmitted ref erence range: 0.04 - 0 .36 K/L. The refe rence range was not u sed to interpret this result as normal/abnor mal. # Baso (test code = 417) 0.04 See_Comment [A utomated message] The system [employer] generated this result transmitted ref erence range: 0.01 - 0 .08 K/L. The refe rence range was not u sed to interpret this result as normal/abnor mal. Immature 0 % 0-1 Granulocytes-Relative (test code = 2801) Lab Interpretation (test Abnormal code = 60992-2) [facility] W/PLT COUNT & AUTO [id number] 13:05:00 Test Item Value Reference Range Interpretation [...] (BEAKER) (test code = 2801) T SPOT [id number] 14:01:00 Test Item Value Reference Range Interpretation Comments T-SPOT TB (BEAKER) (test code = Negative 1683) NEG CONTROL SPOT COUNT (BEAKER) 0 (test code = 1684) PANEL A SPOT (BEAKER) (test code = 0 1685) PANEL B SPOT (BEAKER) (test code = 0 1686) POS CONTROL SPOT CT (BEAKER) (test 0 code = 1687) SCAN RESULT (test code = 1959768) See Scanned ReportECG 12 [id number] 13:44:09Interface, External Ris In - 09/25/2020 1:44 PM CDTVentricular Rate 75 BPMAtrial Rate 75 BPMP-R Interval 154 msQRS Duration 86 msQ-T Interval 442 msQTC Calculation(Bazett) 493 msP [place] 73 degreesR [place] 83 degreesT [place] 64 degreesNormal sinus rhythmRight atrial enlargementProlonged QTAbnormal ECGNo previous ECGs availableConfirmed by MD Guzman Roberto ([id number]) on 09/25/2020 1:44:07 [facility]US, PELVIS, WITH [id number] 13:22:00Reason for Exam:->to assess iliac vesselsKidney Transplant Evaluation [facility] : 1985 Sex: FFINAL REPORT [...] Verified Date/Time: 09/25/2020 13:22:46 US pelvis with [id number] 13:22:00Interface, External Ris In - 09/25/2020 1:24 [...] Cindy Wright MDReport Verified Date/Time: 09/25/2020 13:22:46 [facility]US, ABDOMINAL, [id number] 13:01:00Reason for Exam:->[facility] : 1985 Sex: [...] CINDY WRIGHT MD on 101:01 PMUS abdomen [id number] 13:01:00Interface, External Ris In - 09/25/2020 1:03 [...] Cindy Gonzalez MDReport Verified Date/Time: 09/25/2020 13:01:08 [facility] campusLIPID [id number] 12:42:00 Test Item Value Reference Range Interpretation [...] Borderline 130-159 High 160-189 Very High >=190 Heavy Cleaner ID - [id number] Echo W/Doppler(CW/PW/Color)2020-09-25 10:35:55Ejection FractionSLE ECHO HEARTLAB MKCKESSON CPACSInterface, External Ris In - 09/25/2020 10:[facility] [address] [facility] [address] [facility] Ech[facility]ography Report (TTE) Demographics Patient Name MARIANA RODRIGES Dateof Study 09/25/2020 RAMONA MEYER Gender Female Visit Number [id number] Race Black Room Number OP Number Date of 1985 Referring Anderson Zamora Physician Bunny Age 35 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 Atrial septal position continuously bows uzgx-mo-cqoiq, consistent with elevated LA pressure . Inaj-gd-hywzkuba t ricuspid regurgitation. Estimated peak systolic PA [...] Atrial Septum Atrial septal position continuously bows yrix-on-fzoqd, consistent with elevated LA pressure . Aortic Valve Normal AoV structure. There is trace aortic regurgitation. Mitral Valve Mild MV leaflet thickening. At least moderate eccentric posteriorly directed mitral regurgitation.Tricuspid Valve TV structure is normal. Dxjb-sx-npfrsjui tricuspid regurgitation. Estimated peak systolic PA pressure [...] CO: 6.17 l/min LVOT CI: 3.72 l/min/m^2[facility], [facility]ST, 2 [id number] 10:28:00Reason for Exam:->[facility]ney [facility] EvaluationCH[facility] : 1985 Sex: F [...] Date/Time: 09/25/2020 10:28:23 Reading Location: [facility] Reading Room [address] [place] [address] XR chest 2 views 2020-09-25 10:28:00Interface, External [...] pleural effusion or pneumothorax. Signed: Zina Em Verified Date/Time: 09/25/2020 10:28:23 Reading Location: [facility] Reading Room [address] [place] [address] [facility]
[2021-07-14 09:16] LABS: Absolute Lymphocytes (CBC) 0.9 K/uL (0.7-4.9); Hematocrit 27.6 % (36.0-45.0); Lymphocytes % 13.9 % (15.3-44.8); MPV 7.4 fL (7.6-11.3); RBC Red Blood Cell Count 3.09 M/uL (3.86-4.86)
[2021-07-14 09:57] LABS: Potassium 4.3 mmol/L (3.5-5.1)
--- NOTE | 2021-07-14 10:02 | ER ---
Nurse's Notes [facility] Name: Nely Quinones Age: 36 yrs Sex: Female : 1985 Arrival Date: 07/14/2021 Time: 08:16 Bed 25 Private MD: Sami Monge Diagnosis: End stage renal disease Presentation: 07/14 08:20 Chief complaint: Patient states: Needs blood work done so she can get dialysis ww tomorrow. She missed 3x due to stomach illness one day. Coronavirus screen: Vaccine status: Patient reports being unvaccinated. Client denies travel out of the [place] in the last 14 days. Ebola Screen: Patient negative for fever greater than or equal to 101.5 degrees Fahrenheit, and additional compatible Ebola Virus Disease symptoms Patient denies exposure to infectious person. Initial Sepsis Screen: Does the patient meet any 2 criteria? No. Patient's initial sepsis screen is negative. Does the patient have a suspected source of infection? No. Patient's initial sepsis screen is negative. Risk Assessment: Do you want to hurt yourself or someone else? Patient reports no desire to harm self or others. Onset of symptoms is unknown. 08:20 Method Of Arrival: Ambulatory ww 08:20 Acuity: LORENA 4 ww Triage Assessment: 08:20 General: Appears in no apparent distress. Behavior is cooperative. Pain: Denies pain. ww EENT: No deficits noted. No signs and/or symptoms were reported regarding the EENT system. Neuro: Level of Consciousness is awake, alert, obeys commands, Oriented to person, place, time, situation, Speech is normal. Cardiovascular: Denies chest pain, shortness of breath. Respiratory: Airway is patent Respiratory effort is even, unlabored, Respiratory pattern is regular, symmetrical. GI: No signs and/or symptoms were reported involving the gastrointestinal system. Derm: Skin is healthy with good turgor. 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 - Social history:: Smoking status: Patient denies any tobacco usage or history of. - Family history:: not pertinent. - Hospitalizations: : No recent hospitalization is reported. Screenin:24 Abuse screen: Denies threats or abuse. Denies injuries from another. Nutritional ww screening: No deficits noted. Tuberculosis screening: No symptoms or risk factors identified. Fall Risk None identified. Assessment: 08:47 General: Appears in no apparent distress. comfortable, well groomed, well developed, cb5 well nourished, Behavior is cooperative, appropriate for age. Pain: Denies pain. Neuro: No deficits noted. Level of Consciousness is awake, alert, obeys commands. Neuro: Oriented to person, place, time, situation, Appropriate for age. Cardiovascular: No deficits noted. Respiratory: No deficits noted. GI: No deficits noted. : Reports [t states she needs blood work for dialysis on Tuesday, and Tuesday. EENT: No deficits noted. Derm: No deficits noted. Musculoskeletal: No deficits noted. 09:00 Reassessment: Removed patients P.I.V in rt AC, applied dressing to site.. cb5 Vital Signs: 08:20 BP 184 / 118; Pulse 70; Resp 18; Temp 98.0; Pulse Ox 100% ; Weight 68.04 kg; Height 5 ww ft. 7 in. (170.18 cm); Pain 0/10; 10:11 BP 171 / 103; Pulse 74; Resp 16; Pulse Ox 99% on R/A; ab2 08:20 Body Mass Index 23.49 (68.04 kg, 170.18 cm) ww ED Course: 08:16 Patient arrived in ED. as 08:16 Sami Monge DO is Private Physician. as 08:19 Serge Neil MD is Attending Physician. rn 08:20 Arm band placed on right wrist. ww 08:22 Triage completed. ww 08:43 Inserted saline lock: 20 gauge in right antecubital area, using aseptic technique. kj1 Blood collected. 08:43 Initial lab(s) drawn, by me, sent to lab. kj1 08:46 Stephenie Yen, RN is Primary Nurse. cb5 08:49 Patient has correct armband on for positive identification. Bed in low position. Call cb5 light in reach. Side rails up X 1. 08:50 No provider procedures requiring assistance completed. cb5 10:01 Sami Monge DO is Referral Physician. rn 10:03 Report given to George Parada 10:12 IV discontinued, intact, bleeding controlled, No redness/swelling at site. Pressure ab2 dressing applied. Administered Medications: No medications were administered Outcome: 10:01 Discharge ordered by MD. rn 10:12 Discharged to home ambulatory. ab2 10:12 Condition: good 10:12 Discharge instructions given to patient, Instructed on discharge instructions, follow up and referral plans. Demonstrated understanding of instructions, follow-up care. 10:12 Patient left the ED. ab2 Signatures: Kristy Lazo Roman, MD MD rn Jackson, Kandis kj1 Sanna Sepulveda RN RN Stephenie Amleida RN RN cb5 Tal Torres ab2 Corrections: (The following items were deleted from the chart) 08:22 08:22 PMHx: Bronchitis; ww ww 08:23 08:20 Pulse 70bpm; Resp 18bpm; Pulse Ox 100%; Temp 98.0F; 68.04 kg; Height 5 ft. 7 in.; ww BMI: 23.4; Pain 0/10; ww 09:24 09:23 Initial lab(s) drawn, by me, sent to lab. kj1 kj1
--- NOTE | 2021-07-14 10:02 | EDPHYS ---
Physician Documentation [facility] Name: Nely Quinones Age: 36 yrs Sex: Female : 1985 Arrival Date: 07/14/2021 Time: 08:16 Bed 25 Private MD: Sami Monge ED Physician Serge Neil HPI: 07/14 08:41 This 36 yrs old Black Female presents to ER via Ambulatory with complaints of missed rn hemo dialysis x3, needs bloodwork. 08:41 Patient reports sent here by dialysis for blood work as she has missed the last 2 or 3 rn sessions. Patient states missed due to stomach virus. Patient has no complaints. Denies feeling volume overloaded or shortness of breath. No chest pain. No palpitations.. Onset: The symptoms/episode began/occurred at an unknown time. Severity of symptoms:. The patient has experienced similar episodes in the past. The patient has not recently seen a physician. 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 - Social history:: Smoking status: Patient denies any tobacco usage or history of. - Family history:: not pertinent. - Hospitalizations: : No recent hospitalization is reported. ROS: 08:41 Constitutional: Negative for fever, chills, and weight loss, Eyes: Negative for injury, rn pain, redness, and discharge, Neck: Negative for injury, pain, and swelling, Cardiovascular: Negative for chest pain, palpitations, and edema, Respiratory: Negative for shortness of breath, cough, wheezing, and pleuritic chest pain, Abdomen/GI: Negative for abdominal pain, nausea, vomiting, diarrhea, and constipation, Back: Negative for injury and pain, MS/Extremity: Negative for injury and deformity, Skin: Negative for injury, rash, and discoloration, Neuro: Negative for headache, weakness, numbness, tingling, and seizure. Exam: 08:41 Constitutional: This is a well developed, well nourished patient who is awake, alert, rn and in no acute distress. Head/Face: Normocephalic, atraumatic. Cardiovascular: Regular rate and rhythm. Respiratory: No increased work of breathing, no retractions or nasal flaring. Neuro: Awake and alert, GCS 15 Vital Signs: 08:20 BP 184 / 118; Pulse 70; Resp 18; Temp 98.0; Pulse Ox 100% ; Weight 68.04 kg; Height 5 ww ft. 7 in. (170.18 cm); Pain 0/10; 10:11 BP 171 / 103; Pulse 74; Resp 16; Pulse Ox 99% on R/A; ab2 08:20 Body Mass Index 23.49 (68.04 kg, 170.18 cm) ww MDM: 08:29 Patient medically screened. rn 10:00 Differential Diagnosis ESRD, hyperkalemia. Data reviewed: vital signs, nurses notes, jewel hole cornerer test result(s), EKG, and as a result, I will discharge patient. Counseling: I had a detailed discussion with the patient and/or guardian regarding: the historical points, exam findings, and any diagnostic results supporting the discharge/admit diagnosis, lab results, the need for outpatient follow up, to return to the emergency department if symptoms worsen or persist or if there are any questions or concerns that arise at home. Special discussion: I discussed with the patient/guardian in detail that at this point there is no indication for admission to the hospital. It is understood, however, that if the symptoms persist or worsen the patient needs to return immediately for re-evaluation. ED course: Pt without acute findings in bloodwork, normal potassium, not requiring oxygen, no acidosis, will dc to dialysis with lab results for dialysis. . 07/14 08:19 Order name: CBC with Diff rn 07/14 08:19 Order name: Basic Metabolic Panel; Complete Time: 10:01 rn 07/14 08:19 Order name: IV Start; Complete Time: 09:23 rn 07/14 08:19 Order name: EKG; Complete Time: 08:19 rn 07/14 08:19 Order name: EKG - Nurse/Tech; Complete Time: 09:23 rn 07/14 09:26 Order name: Manual Differential EDMS Administered Medications: No medications were administered Disposition Summary: 07/14/21 10:01 Discharge Ordered Location: Home rn Problem: an ongoing problem rn Symptoms: are unchanged rn Condition: Stable rn Diagnosis - End stage renal disease rn Followup: rn - With: - When: Upon discharge from the Emergency Department - Reason: Recheck today's complaints, Re-evaluation by your physician Discharge Instructions: - Discharge Summary Sheet 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
[2021-07-14 10:11] LABS: Blood Morphology Comment NOT SEEN (NOT SEEN); Platelet Estimate ADEQ
[2021-07-14 10:22] VITALS: TEMP 98
[2021-07-14 10:24] VITALS: BP 171/103; O2SAT 99
--- NOTE | 2021-07-15 13:08 | EKG ---
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
== END 2021-07-14 10:12 | disposition home or self-care (01) ==
LOC: ER 08:14
DX: I12.0 Hypertensive chronic kidney disease with stage 5 chronic kidney disease or end stage renal disease (principal); N18.6 End stage renal disease; Z99.2 Dependence on renal dialysis
CPT/HCPCS: 36415; 80048; 85025; 93005; 99283

== ENCOUNTER 2021-08-22 09:53 | Inpatient (IN) | payer OTHER ==
--- OUTSIDE RECORDS SUMMARY | 2021-08-22 09:57 | XMS REPORT | Continuity of Care Document ---
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 RosaRPR2021-04-28 14:26:00 Test Item Value Reference Range Interpretation Comments RPR SCREEN (BEAKER) (test code = Nonreactive Nonreactive 420) Varicella Zoster Antibody, [id number] 14:12:00 Test Item Value Reference Range Interpretation Comments Varicella IgG (test 2.8 code = 23116-0) RACQUEL (test code = RACQUEL) VARICELLA ZOSTER RESULT INTERPRETATIONS: <=0.8 Al Nonreactive: Presumed non-immune to VZV 0.9-1.0 Al Equivocal >=1.1 Al Reactive: Presumed immune to VZV [facility] RosaVARICELLA ZOSTER ANTIBODY, [id number] 14:12:00 Test Item Value Reference Range Interpretation Comments VARICELLA ZOSTER IGG (AL) (BEAKER) 2.8 (test code = 3197) VARICELLA ZOSTER RESULT INTERPRETATIONS: <=0.8 Al Nonreactive: Presumed non-immune to VZV 0.9-1.0 Al Equivocal >=1.1 Al Reactive: Presumed immune to VZVCytomegalovirus antibody, [id number] 13:54:00 Test Item Value Reference Range Interpretation Comments CYTOMEGALOVIRUS, IGG Positive Negative, A (test code = 3429) Equivocal RACQUEL (test code = RACQUEL) CMV IgG Result Interpretation: </= 0.8 Al Negative 0.9-1.0 Al Equivocal >/=1.1 Al Positive Lab Interpretation (test Abnormal code = 02151-9) [facility] RosaEBV-VCA antibody, [id number] 13:54:00 Test Item Value Reference Range Interpretation Comments ALETA BOWLING VIRAL Positive Negative, A CAPSID ANTIGEN IGG (test Equivocal code = 3415) RACQUEL (test code = RACQUEL) Aleta Bowling Viral Capsid Antigen IgG Result Interpretation: </= 0.8 Al Negative 0.9-1.0 Al Equivocal >/= 1.1 Al Positive Lab Interpretation (test Abnormal code = 70860-5) [facility] RosaEBV-VCA antibody, [id number] 13:54:00 Test Item Value Reference Range Interpretation Comments ALETA BOWLING VIRAL Negative Negative, CAPSID ANTIGEN IGM (test Equivocal code = 3418) RCAQUEL (test code = RACQUEL) Aleta Bowling Viral Capsid Antigen IgM Result Interpretation: </= 0.8 Al Negative 0.9-1.0 Al Equivocal >/= 1.1 Al Positive Lab Interpretation (test Normal code = 29083-4) [facility] RosaCytomegalovirus antibody, [id number] 13:54:00 Test Item Value Reference Range Interpretation Comments CMV IGM (test code = Negative Negative, 3437) Equivocal RACQUEL (test code = RACQUEL) CMV IgM Result Interpretation: </= 0.8 Al Negative 0.9-1.0 Al Equivocal >/= 1.1 Al Positive Lab Interpretation (test Normal code = 38845-1) [facility] RosaCYTOMEGALOVIRUS ANTIBODY, [id number] 13:54:00 Test Item Value Reference Range Interpretation Comments CYTOMEGALOVIRUS, IGG (BEAKER) Positive Negative, Equivocal A (test code = 3429) CMV IgG Result Interpretation: </= 0.8 Al Negative 0.9-1.0 Al Equivocal >/=1.1 Al PositiveCYTOMEGALOVIRUS ANTIBODY, [id number] 13:54:00 Test Item Value Reference Range Interpretation Comments CYTOMEGALOVIRUS IGM ANTIBODY Negative Negative, Equivocal (BEAKER) (test code = 3437) CMV IgM Result Interpretation: </= 0.8 Al Negative 0.9-1.0 Al Equivocal >/= 1.1 Al PositiveEBV ANTIBODY, [id number] 13:54:00 Test Item Value Reference Range Interpretation [...] Activity (test code = 108.0 % 70-130 50963-3) Lab Interpretation (test code = Normal 75347-3) [facility] RosaPROTEIN C [id number] 10:42:00 Test Item Value Reference Range Interpretation Comments PROTEIN C ACTIVITY (BEAKER) (test 108.0 % 70.0-130.0 code = 582) Hemoglobin [id number] 16:04:00 Test Item Value Reference Range Interpretation Comments Hemoglobin A1C (test code = 4548-4) 4.6 % 4.3-6.1 Lab Interpretation (test code = Normal 48384-3) [facility] RosaHEMOGLOBIN [id number] 16:04:00 Test Item Value Reference Range Interpretation Comments HEMOGLOBIN A1C (BEAKER) (test code = 4.6 % 4.3-6.1 368) Hepatitis B surface [id number] 14:44:00 Test Item Value Reference Interpretation Comments Range Hep B S Ab (test 1462.6 See_Comment H [Automated code = 57643-6) message] The system which generated this result transmitted reference range : <8.0 mIU/mL. Th e reference range was not used to interpret this result as normal/abnormal . RACQUEL (test code = Rags Laborer ID - RACQUEL) ROSIANGOperator ID - ROSIANG Lab Interpretation Abnormal (test code = 64026-9) [facility] RosaHEPATITIS B SURFACE [id number] 14:44:00 Test Item Value Reference Range Interpretation Comments HEPATITIS B SURFACE ANTIBODY 1462.6 mIU/mL <8.0 H (BEAKER) (test code = 647) Rags Laborer ID - ROSIANGOperator ID - ROSIANGUrinalysis, [id number] 14:42:00 Test Item Value Reference Range Interpretation Comments Color, UA (test code Yellow = 5778-6) Clarity, UA (test Clear code = 5767-9) Specific [place], UA 1.012 1.001-1.035 (test code = 5811-5) pH, UA (test code = 8.0 5.0-8.0 5803-2) Protein, UA (test 70 mg/dL Negative A code = 52398-0) Glucose, UA (test Negative Negative code = 365) Ketones, UA (test Negative Negative code = 2514-8) Bilirubin, UA (test Negative Negative code = 75679-8) Blood, UA (test code Negative Negative = 02112-5) Nitrite, UA (test Negative Negative code = 5802-4) Leukocytes, UA (test Negative Negative code = 5799-2) Urobilinogen, UA 0.2 mg/dL 0.2-1 (test code = 94336-2) RBC, UA (test code = <1 See_Comment [Autom ated 03557-9) message] The system which generated this result [...] 4 See_Comment [Automate d (test code = 71724-5) messag e] The system which generated this result transmit liya reference range : /HPF. The reference range was not used to interpret this result as normal/abnormal . Hyaline Casts, UA 1 See_Comment [Automate d (test code = 32123-1) messag e] The system which generated this result transmit liya reference range : /LPF. The reference range was not used to interpret this result as normal/abnormal . Specimen Source (test code = 2795) RACQUEL (test code = RACQUEL) Rags Laborer ID - [auto]Rags Laborer ID - tech Lab Interpretation Abnormal (test code = 47914-7) [facility] RosaURINALYSIS W/ [id number] 14:42:00 Test Item Value Reference Range Interpretation [...] /LPF 514) SOURCE(BEAKER) (test code = 2795) Rags Laborer ID - [auto]Rags Laborer ID - techHepatitis B surface [id number] 14:30:00 Test Item Value Reference Range Interpretation Comments HBsAg Screen (test code Nonreactive Nonreactive = 5195-3) RACQUEL (test code = RACQUEL) Specimen is considered negative for HBsAg. Lab Interpretation (test Normal code = 20685-9) [facility] RosaHepatitis B core antibody, [id number] 14:30:00 Test Item Value Reference Range Interpretation Comments Hep B C IgM (test code = Nonreactive Nonreactive 20093-1) RACQUEL (test code = RACQUEL) Rags Laborer ID - BJ Lab Interpretation (test Normal code = 63938-9) [facility] RosaHepatitis C [id number] 14:30:00 Test Item Value Reference Range Interpretation Comments Hepatitis C Ab (test Nonreactive Nonreactive code = 68815-0) RACQUEL (test code = RACQUEL) Rags Laborer ID - BJ Lab Interpretation (test Normal code = 36393-0) [facility] RosaHIV-1 Antigen with HIV-1/2 [id number] 14:30:00 Test Item Value Reference Range Interpretation Comments HIV-1 Antigen with HIV Nonreactive Nonreactive 1&2 Antibody (test code = 10618-3) RACQUEL (test code = RACQUEL) Rags Laborer ID - BJ Lab Interpretation (test Normal code = 52672-0) [facility] RosaHEPATITIS B SURFACE [id number] 14:30:00 Test Item Value Reference Range Interpretation Comments HEPATITIS B SURFACE ANTIGEN (2) Nonreactive Nonreactive (BEAKER) (test code = 2585) Specimen is considered negative for HBsAg.HEPATITIS B CORE ANTIBODY, IGM 2020-10-07 14:30:00 Test Item Value Reference Range Interpretation Comments HEPATITIS B CORE IGM ANTIBODY Nonreactive Nonreactive (BEAKER) (test code = 645) Rags Laborer ID - ROSIANGHEPATITIS C [id number] 14:30:00 Test Item Value Reference Range Interpretation Comments HEPATITIS C ANTIBODY (BEAKER) Nonreactive Nonreactive (test code = 367) Rags Laborer ID - NOELGHIV-1 ANTIGEN WITH HIV-1/2 [id number] 14:30:00 Test Item Value Reference Range Interpretation Comments HIV-1 ANTIGEN WITH HIV 1\T\2 Nonreactive Nonreactive ANTIBODY (2) (BEAKER) (test code = 2586) Rags Laborer ID - YOVANNYIANGAntithrombin [id number] 14:04:00 Test Item Value Reference Range Interpretation Comments Antithrombin III (test code = 96394-7) 94.0 % 80-120 Lab Interpretation (test code = Normal 34295-7) [facility] RosaANTITHROMBIN [id number] 14:04:00 Test Item Value Reference Range Interpretation Comments ANTITHROMBIN III ACTIVITY (BEAKER) 94.0 % 80.0-120.0 (test code = 711) Direct AHG (JOHANN)/Direct [id number] 13:47:00 Test Item Value Reference Range Interpretation Comments Direct AHG-IGG (test code = 1006-6) NEGATIVE Direct AHG-C3B, C3D (test code = NEGATVIE 1003-3) [facility] RosaComprehensive metabolic [id number] 13:42:00 Test Item Value Reference Range Interpretation Comments Protein, Total (test 6.9 See_Comment [Autom ated code = 2885-2) message] The system which generated this result transmit liya reference range : 6.0 - 8.3 gm/dL . The reference range was not u sed to interpret th is result as normal/abnormal . Albumin (test code = 3.9 g/dL 3.5-5 50160-0) Alkaline Phosphatase 65 U/L 40-150 (test code = 6768-6) Total Bilirubin (test 0.3 mg/dL 0.2-1.2 code = 1975-2) Sodium (test code = 140 meq/L 685-314 2661-2) Potassium (test code 4.2 meq/L 3.5-5.1 = 2823-3) Chloride (test code = 102 meq/L 98-107 2075-0) CO2 (test code = 23 meq/L 22-29 8-9) BUN (test code = 39 mg/dL 7-21 H 3094-0) Creatinine (test code 9.59 mg/dL 0.57-1.25 H = 2160-0) Glucose (test code = 91 mg/dL 70-105 2345-7) Calcium (test code = 8.5 mg/dL 8.4-10.2 70901-6) AST (test code = 16 U/L 5-34 1920-8) ALT (test code = 11 U/L 6-55 1742-6) EGFR (test code = 6 mL/min/1.73 [place] [address]-9) NOT ACCURATE CREATININE CLEARANCE IN PREDICTING GLOMERULAR FILTRATION RATE . ESTIMATED GFR I S NOT APPLICABLE FOR DIALYSIS PATIEN TS. RACQUEL (test code = RACQUEL) Rags Laborer ID - ROSIANG Lab Interpretation Abnormal (test code = 60611-6) [facility] RosaCOMPREHENSIVE METABOLIC [id number] 13:42:00 Test Item Value Reference Range Interpretation [...] S NOT APPLICABLE FOR DIALYSIS PATIEN TS. Rags Laborer ID - ROSIANGGamma Glutamyl Transferase (GGT)2020-10-07 13:37:00 Test Item Value Reference Range Interpretation Comments GGT (test code = 2324-2) 21 U/L RACQUEL (test code = RACQUEL) Rags Laborer ID - ROSIANG Lab Interpretation (test Normal code = 40972-0) [facility] RosaPhosphorus2021-04-27 13:37:00 Test Item Value Reference Range Interpretation Comments Phosphorus (test code = 5.7 mg/dL 2.3-4.7 H 2777-1) RACQUEL (test code = RACQUEL) Rags Laborer ID - ROSIANG Lab Interpretation (test Abnormal code = 66887-8) [facility] RosaUric [id number] 13:37:00 Test Item Value Reference Range Interpretation Comments Uric Acid (test code = 8.4 mg/dL 2.6-7.2 H 3084-1) RACQUEL (test code = RACQUEL) Rags Laborer ID - ROSIANG Lab Interpretation (test Abnormal code = 13704-5) [facility] RosaPHOSPHORUS2021-04-27 13:37:00 Test Item Value Reference Range Interpretation Comments PHOSPHORUS (BEAKER) (test code = 5.7 mg/dL 2.3-4.7 H 604) Rags Laborer ID - ROSIANGURIC [id number] 13:37:00 Test Item Value Reference Range Interpretation Comments URIC ACID (BEAKER) (test code = 8.4 mg/dL 2.6-7.2 H 773) Rags Laborer ID - ROSIANGGAMMA GLUTAMYL TRANSFERASE (GGT)2020-10-07 13:37:00 Test Item Value Reference Range Interpretation Comments GAMMA GLUTAMYL TRANSFERASE (BEAKER) 21 U/L 964 (test code = 364) Rags Laborer ID - ROSIANGPTH, [id number] 13:36:00 Test Item Value Reference Range Interpretation Comments PTH (test code = 2731-8) 466.5 pg/mL 8.5-72.5 H RACQUEL (test code = RACQUEL) Rags Laborer ID - ROSIANG Lab Interpretation (test Abnormal code = 40218-0) [facility] RosaPTH, [id number] 13:36:00 Test Item Value Reference Range Interpretation Comments PARATHYROID HORMONE INTACT 466.5 pg/mL 8.5-72.5 H (BEAKER) (test code = 577) Rags Laborer ID - ROSIANGPT/[id number] 13:34:00 Test Item Value Reference Interpretation Comments [...] (test code = 37.1 See_Comment H [Automated 02732-3) message] The system which generated this result [...] valves. Lab Interpretation Abnormal (test code = 54114-8) [facility] RosaPT/[id number] 13:34:00 Test Item Value Reference Range Interpretation [...] is2.5-3.5 for patients wiht mechanical heart valves.Prothrombin time/[id number] 13:33:00 Test Item Value Reference Interpretation Comments [...] valves. Lab Interpretation Normal (test code = 34121-6) [facility] RosaABORH, [id number] 13:33:00 Test Item Value Reference Range Interpretation Comments ABO Grouping (test code = 2588) O Rh Factor (test code = 2589) POS [facility] RosaPROTHROMBIN TIME/[id number] 13:33:00 Test Item Value Reference Range Interpretation Comments PROTIME (BEAKER) 13.9 seconds 11.9-14.2 (test code = 759) INR (BEAKER) (test 1.11 See_Comment [Automat ed message] code = 370) The system whic h generated this result transmitted ref erence range: [...] heart valves.CBC with platelet count + automated [id number] 13:05:00 Test Item Value Reference Range Interpretation Comments WBC (test code = 6690-2) 6.4 See_Comment [A utomated message] The system [employer] generated this result transmitted ref erence range: 3.5 - 10 .5 K/L. The refe rence range was not u sed to interpret this result as normal/abnor mal. RBC (test code = 789-8) 2.95 See_Comment L [Au tomated message] The system [employer] generated this result transmitted ref erence range: 3.93 - 5 .22 M/L. The refe rence range was not u sed to interpret this result as normal/abnor mal. MCHC (test code = 786-4) 31.4 See_Comment L [A utomated message] The system [employer] generated this result transmitted ref erence range: [...] See_Comment [Aut omated message] 777-3) The system [employer] generated this result transmitted ref erence range: 150 - 45 0 K/CU MM. The referen ce range was not u sed to interpret this result as normal/abnor mal. MPV (test code = 9.7 fL 9.4-12.3 71164-8) nRBC (test code = 413) 0 See_Comment [Aut omated message] The system [employer] generated this result transmitted ref erence range: [...] See_Comment [Aut omated message] 670) The system [employer] generated this result transmitted ref erence range: 1.56 - 6 .13 K/L. The refe rence range was not u sed to interpret this result as normal/abnor mal. # Lymphs (test code = 1.43 See_Comment [Auto mated message] 414) The system [employer] generated this result transmitted ref erence range: 1.18 - 3 .74 K/L. The refe rence range was not u sed to interpret this result as normal/abnor mal. # Monos (test code = 0.48 See_Comment H [Autom ated message] 415) The system [employer] generated this result transmitted ref erence range: 0.24 - 0 .36 K/L. The refe rence range was not u sed to interpret this result as normal/abnor mal. # Eos (test code = 416) 0.28 See_Comment [Au tomated message] The system [employer] generated this result transmitted ref erence range: 0.04 - 0 .36 K/L. The refe rence range was not u sed to interpret this result as normal/abnor mal. # Baso (test code = 417) 0.04 See_Comment [A utomated message] The system [employer] generated this result transmitted ref erence range: 0.01 - 0 .08 K/L. The refe rence range was not u sed to interpret this result as normal/abnor mal. Immature 0 % 0-1 Granulocytes-Relative (test code = 2801) Lab Interpretation (test Abnormal code = 17807-7) [facility] W/PLT COUNT & AUTO [id number] 13:05:00 Test Item Value Reference Range Interpretation [...] (BEAKER) (test code = 2801) T SPOT [id number] 14:01:00 Test Item Value Reference Range Interpretation Comments T-SPOT TB (BEAKER) (test code = Negative 1683) NEG CONTROL SPOT COUNT (BEAKER) 0 (test code = 1684) PANEL A SPOT (BEAKER) (test code = 0 1685) PANEL B SPOT (BEAKER) (test code = 0 1686) POS CONTROL SPOT CT (BEAKER) (test 0 code = 1687) SCAN RESULT (test code = 8587054) See Scanned ReportECG 12 [id number] 13:44:09Interface, External Ris In - 09/25/2020 1:44 PM CDTVentricular Rate 75 BPMAtrial Rate 75 BPMP-R Interval 154 msQRS Duration 86 msQ-T Interval 442 msQTC Calculation(Bazett) 493 msP [place] 73 degreesR [place] 83 degreesT [place] 64 degreesNormal sinus rhythmRight atrial enlargementProlonged QTAbnormal ECGNo previous ECGs availableConfirmed by MD Guzman Roberto ([id number]) on 09/25/2020 1:44:07 [facility] CenterUS, PELVIS, WITH [id number] 13:22:00Reason for Exam:->to assess iliac vesselsKidney Transplant Evaluation [facility] : 1985 Sex: FFINAL [...] Verified Date/Time: 09/25/2020 13:22:46 US pelvis with [id number] 13:22:00Interface, External Ris In - 09/25/2020 1:24 [...] Cindy Wright MDReport Verified Date/Time: 09/25/2020 13:22:46 [facility] CenterUS, ABDOMINAL, [id number] 13:01:00Reason for Exam:->Kidney Trans[facility]Name[facility] ANTELMO MARIANA RAMONA MEYER : 1985 Sex: F FINAL REPORT TECHNIQUE: [...] CINDY WRIGHT MD on 101:01 PMUS abdomen [id number] 13:01:00Interface, External Ris In - 09/25/2020 1:03 [...] Cindy Gonzalez MDReport Verified Date/Time: 09/25/2020 13:01:08 [facility] CenterLIPID [id number] 12:42:00 Test Item Value Reference Range Interpretation [...] Borderline 130-159 High 160-189 Very High >=190 Rags Laborer ID - [id number] Echo W/Doppler(CW/PW/Color)2020-09-25 10:35:55Ejection FractionSLEH ECHO HEARTLAB MKCKESSON CPACSInterface, External Ris In - 09/25/2020 10:36 AM CDTTransthoracic Echocardiography Report (TTE) Demographics Patient Name MARIANA RODRIGES Dateof Study 09/25/2020 RAMONA MEYER Gender Female Visit Number [id number] Race Black Room Number OP Number Date of 1985 Referring Anderson Zamora Physician Bunny Age 35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 Atrial septal position continuously bows qnje-uu-znzia, consistent with elevated LA pressure . Xqdc-hu-wfywrtju t ricuspid regurgitation. Estimated peak systolic PA [...] Atrial Septum Atrial septal position continuously bows djbp-et-xhzab, consistent with elevated LA pressure . Aortic Valve Normal AoV structure. There is trace aortic regurgitation. Mitral Valve Mild MV leaflet thickening. At least moderate eccentric posteriorly directed mitral regurgitation.Tricuspid Valve TV structure is normal. Bast-qi-iuuhyytr tricuspid regurgitation. Estimated peak systolic PA pressure [...] CO: 6.17 l/min LVOT CI: 3.72 [facility]^2[facility], 2 [id number] 10:28:00Reason for Exam:->[facility]ENTERName: [facility]NA RODRIGES : 1985 [...] consolidated pneumonia,pleural effusion or pneumothorax. Signed: Zina Pierreort Verified Date/Time: 09/25/2020 10:28:23 Reading Location: [facility] Reading Room [address] [place] [address] XR chest 2 views 2020-09-25 10:28:00Interface, External [...] MDReport Verified Date/Time: 09/25/2020 10:28:23 Reading Location: [facility] Reading Room 1 - [place] [address] [facility] [id number] 14:34:00 Test Item Value Reference Range Interpretation Comments UR HCG QUAL (test code = HCGQLU) NEGATIVE NEGATIVE COVID 19 Asymptomatic IH [id number] 12:06:00 Test Item Value Reference Range Interpretation [...] viable (live) and non-viable,SARS -CoV, and SARS-CoV-2. Jaent t performance dep ends on theamount of [...] COMMENTS: If not done this admissionBASIC METABOLIC [id number] 11:25:00 Test Item Value Reference Range Interpretation [...] = 8.3 mg/dL 8.0-10.5 N CA) PROTHROMBIN [id number] 11:22:00 Test Item Value Reference Range Interpretation [...] o prevent recurre nt infarct). CBC W/AUTO [id number] 11:20:00 Test Item Value Reference Range Interpretation [...] NO = MDIFF) - XR CHEST 1 [id number] 11:15:00 [facility] : 1985 Sex: F FAX: Abimael Gallardo MD [phone] [place]: St: REG Name: MARIANA RODRIGES [facility] : 1985 Age/S: 35/F [address] [place] [address] Unit #: [id number] Loc: [place] [address] Phys: Abimael Isaac MD Acct: [id number] Dis Date: Status: [place] [facility] [place]ONE #: [phone] Exam Date: 06/03/2020 1052 FAX #: [phone] Reason: PRE-OP EXAMS: CPT CODE: [id number] XR CHEST 1 V 54901 EXAM: XR CHEST 1 VIEW DATE: 06/03/2020 9:40 AM : 1985; Age: 35 years y/o Female INDICATION: AVF malfunction, PRE-OP COMPARISON: March 25, 2020 TECHNIQUE: AP chest. IMPRESSION: Lines, tubes and hardware: Stable. Heart, mediastinum and lungs: Heart appears borderline enlarged. No consolidation or pleural effusion is seen. No pneumothorax. SL: [id number] at 1115 Reported and signed by: Marcy Montes D.O. CC: Abimael Isaac MD Technologist: RT Faheem(R) Trnscrd Date/Time/By: 06/03/2020 (111) : By: [email or web address] Orig Print D/T: S: 06/03/2020 (1118) PAGE 1 Signed ReportCBC W/AUTO [id number] 11:13:00 Test Item Value Reference Range Interpretation [...] DIFF REQUIRED (test code = MDIFF) PROTHROMBIN [id number] 11:57:00 Test Item Value Reference Range Interpretation [...] o prevent recurre nt infarct). BASIC METABOLIC [id number] 11:39:00 Test Item Value Reference Range Interpretation [...] 9.9 mg/dL 8.0-10.5 N CA) HCG SERUM [id number] 11:23:00 Test Item Value Reference Range Interpretation Comments HCG SERUM QUAL (test code = SERUM NEGATIVE NEGATIVE HCGQL) CBC W/AUTO [id number] 11:17:00 Test Item Value Reference Range Interpretation [...] (test code NO = MDIFF) CBC W/AUTO [id number] 11:15:00 Test Item Value Reference Range Interpretation [...] code = MDIFF) - XR CHEST 1 [id number] 11:04:00 FAX: Abimael Gallardo MD [phone] [place]: St: REG Name: MARIANA RODRIGES [facility] : 1985 Age/S: 34/F [address] [place] [address] Unit#: [id number] Loc: [place] [address] Phys: Abimael Isaac MD Acct: [id number] Dis Date: Status: [place] [facility] [place]ONE #: [phone] Exam Date: 03/25/2020 110 FAX #: [phone] Reason: PRE OP EXAMS: CPT CODE: [id number] XR CHEST 1 V 28466 PROCEDURE: CHEST SINGLE VIEW INDICATION: PRE OP;ESRD COMPARISON: March 2014 FINDINGS: TUBES AND LINES: Tunneledright hemodialysis catheter tip at the level of mid superior vena cava. CHEST: The lungs are clear. The pleural, cardiomediastinal silhouette, and bony thorax are normal. IMPRESSION: No acute findings. SL: [id number] Reported and signed by: Josesito Tolentino M.D. CC: Abimael Isaac MD Technologist: More Lama,RT(R) [facility] Date/Time/By: 03/25/2020 (2892) : By: [email or web address] Orig Print D/T: S: 03/25/2020 (5830) PAGE 1 Signed ReportCOVID 19 Asymptomatic IH [id number] 10:59:00 Test Item Value Reference Range Interpretation [...]
[2021-08-22] MEDS ORDERED: ONDANSETRON 4 MG/2 ML VIAL ONE (10:29)
[2021-08-22] MEDS ORDERED: MORPHINE 2 MG/ML SYR ONE ×2 (10:29→11:14)
[2021-08-22] MEDS ORDERED: NA CHLORIDE 0.9% 1,000 ML ONE (10:29)
[2021-08-22] MEDS ORDERED: CEFTRIAXONE 1000 MG/VIAL ONE (10:29)
[2021-08-22 11:11] LABS: Absolute Lymphocytes (CBC) 0.3 K/uL (0.7-4.9); Hematocrit 30.8 % (36.0-45.0); Lymphocytes % 5.2 % (15.3-44.8); MPV 8.1 fL (7.6-11.3)
--- NOTE | 2021-08-22 11:11 | RAD REPORT ---
EXAM DESCRIPTION: RAD - Chest Single View - 08/22/2021 10:53 am CLINICAL HISTORY: COUGH Chest pain. COMPARISON: Chest Single View dated 05/27/2021; Chest Single View dated 03/03/2021; Chest Single View dated 02/17/2021; Chest Single View dated 11/13/2020 FINDINGS: Portable technique limits examination quality. Mild to moderate pulmonary edema. The heart is moderately enlarged in size. No displaced fractures. IMPRESSION: Moderate volume overload pattern.
[2021-08-22] MEDS ORDERED: ACETAMINOPHEN 325 MG TABLET ONE ×2 (11:28→17:01)
[2021-08-22 11:32] LABS: Albumin 3.2 g/dL (3.4-5.0); Bilirubin Direct 0.2 mg/dL (0-0.2); Bilirubin Total 0.4 mg/dL (0.2-1.0); Protein, Total 7.1 g/dL (6.4-8.2); Troponin High Sensitivity 53.9 pg/mL (<58.9)
[2021-08-22 11:42] LABS: SARS-COV-2 RT PCR NEGATIVE (NEGATIVE)
--- NOTE | 2021-08-22 12:04 | EDPHYS ---
Physician Documentation [facility] Name: Nely Quinones Age: 36 yrs Sex: Female : 1985 Arrival Date: 08/22/2021 Time: 09:59 Bed 2 Private MD: AVERY Physician Oscar Shultz HPI: 08/22 11:50 This 36 yrs old Black Female presents to ER via EMS with complaints of Abdominal Pain. toño 11:50 The patient presents with abdominal pain in the upper abdomen, in the lower abdomen, toño abdominal distention in the upper abdomen, in the lower abdomen. Onset: The symptoms/episode began/occurred 2 day(s) ago. 11:51 The patient has shortness of breath at rest, with light activity. Onset: The toño symptoms/episode began/occurred 3 day(s) ago. Duration: The symptoms are continuous, and are steadily getting worse. The patient's shortness of breath is aggravated by coughing, light activity, supine position, talking, walking. missed last 3 episodes of dialysis, 1 week without dialysis. The symptoms do not radiate. Associated signs and symptoms: Pertinent positives: non-productive cough, fever, nausea. Severity of symptoms: At their worst the symptoms were mild moderate in the emergency department the symptoms are worse markedly. Historical: - PMHx: 10:03 Asthma; dialysis L arm access; Hypertensive disorder; RENAL FAILURE; jg9 - Immunization history:: Adult Immunizations up to date. - Social history:: Smoking status: Patient denies any tobacco usage or history of. - Family history:: not pertinent. ROS: 11:51 Constitutional: Negative for fever, chills, and weight loss, Eyes: Negative for injury, toño pain, redness, and discharge, ENT: Negative for injury, pain, and discharge, Neck: Negative for injury, pain, and swelling, Cardiovascular: Negative for chest pain, palpitations, and edema, : Negative for injury, bleeding, discharge, and swelling, MS/Extremity: Negative for injury and deformity, Skin: Negative for injury, rash, and discoloration, Neuro: Negative for headache, weakness, numbness, tingling, and seizure. 11:51 Constitutional: Positive for body aches, chills, fever, malaise, poor PO intake. 11:51 Respiratory: Positive for cough, "sounds productive". 11:51 Abdomen/GI: Positive for abdominal pain, nausea, abdominal cramps, abdominal distension, of the right upper quadrant, left upper quadrant, right lower quadrant and left lower quadrant. 11:51 Back: Negative for injury or acute deformity, decreased range of motion, pain at rest, pain with movement, radiated pain, acute changes. Exam: 11:54 Head/Face: Normocephalic, atraumatic. Eyes: Pupils equal round and reactive to light, toño extra-ocular motions intact. Lids and lashes normal. Conjunctiva and sclera are non-icteric and not injected. Cornea within normal limits. Periorbital areas with no swelling, redness, or edema. ENT: Nares patent. No nasal discharge, no septal abnormalities noted. Tympanic membranes are normal and external auditory canals are clear. Oropharynx with no redness, swelling, or masses, exudates, or evidence of obstruction, uvula midline. Mucous membranes moist. Neck: Trachea midline, no thyromegaly or masses palpated, and no cervical lymphadenopathy. Supple, full range of motion without nuchal rigidity, or vertebral point tenderness. No Meningismus. Chest/axilla: Normal chest wall appearance and motion. Nontender with no deformity. No lesions are appreciated. Cardiovascular: Regular rate and rhythm with a normal S1 and S2. No gallops, murmurs, or rubs. Normal PMI, no JVD. No pulse deficits. Back: No spinal tenderness. No costovertebral tenderness. Full range of motion. Pelvic Exam: Normal external genitalia. Speculum exam with closed cervical os, no discharge or bleeding noted. Bimanual exam with normal adnexa, no adnexal or cervical motion tenderness. Normal uterus. Female : Normal external genitalia. Skin: Warm, dry with normal turgor. Normal color with no rashes, no lesions, and no evidence of cellulitis. MS/ Extremity: Pulses equal, no cyanosis. Neurovascular intact. Full, normal range of motion. Neuro: Awake and alert, GCS 15, oriented to person, place, time, and situation. Cranial nerves II-XII grossly intact. Motor strength 5/5 in all extremities. Sensory grossly intact. Cerebellar exam normal. Normal gait. 11:54 Constitutional: The patient appears febrile, frail, in obvious distress, mildly distressed. 11:54 ECG was reviewed by the Attending Physician. 11:54 Respiratory: the patient does not display signs of respiratory distress, Respirations: normal, no acute changes, labored breathing, is not present, asymmetrical chest movement, is not seen, Breath sounds: bronchial sounds, that are mild, decreased breath sounds, that are mild, rhonchi, that are mild, stridor, is not appreciated, Respiratory rate: 95 Vital Signs: 09:50 BP 169 / 101; Pulse 93; Resp 25 S; Temp 100.2(TE); Pulse Ox 96% on R/A; Weight 68.04 kg 9 (R); Height 5 ft. 2 in. (157.48 cm) (R); Pain 10/10; 10:30 BP 169 / 104; Pulse 94; Resp 25 S; Pulse Ox 95% on R/A; Pain 10/10; jg9 11:25 BP 180 / 100; Pulse 95; Resp 22; Pulse Ox 92% on 2 lpm NC; Pain 7/10; jg9 11:28 Temp 99.6; jg9 12:00 BP 188 / 110; Pulse 94; Resp 18 S; Pulse Ox 95% ; jg9 13:00 BP 192 / 110; Pulse 102; Resp 22 S; Pulse Ox 95% on R/A; 9 14:00 BP 178 / 110; Pulse 106; Resp 22 S; Pulse Ox 94% on R/A; jg9 15:00 BP 178 / 109; Pulse 99; Resp 22 S; Pulse Ox 96% on R/A; j9 16:00 BP 175 / 99; Pulse 97; Resp 22 S; Pulse Ox 94% on R/A; jg9 17:00 BP 187 / 110; Pulse 102; Resp 22 S; Pulse Ox 95% on R/A; jg9 09:50 Body Mass Index 27.44 (68.04 kg, 157.48 cm) 9 MDM: 10:04 Patient medically screened. [facility] 12:05 Antibiotic administration: Rocephin and Zithromax given. Differential Diagnosis altered toño mental status, sepsis, flu. The patient's Wells Deep Vein Thrombosis Score was calculated as follows: Total Score: 0-2 Pts- Low Risk. Differential diagnosis: Anemia Bronchitis viral Infection, bacterial infection, URI, bronchitis, pneumonia gastroenteritis, pneumonia, pulmonary edema, reactive airway disease, Sepsis Unstable Angina appendicitis, bowel obstruction, cholecystitis, Cholelithiasis, diverticulitis, gastritis, Hepatitis, Mesenteric ischemia or infarction, non-specific abd pain. The patient's pulmonary embolism risk score was calculated as follows: Total Score: 0-2 points. This patient was found to be at low risk for a pulmonary embolism by using the Well's assessment criteria. Immunization status:. Data reviewed: vital signs, nurses notes, EMS record, lab test result(s), EKG, radiologic studies, CT scan, plain films. Data interpreted: color television console monitor: rate is 95 beats/min, rhythm is normal sinus rhythm, regular, Pulse oximetry: on room air is 92 %. Test interpretation: by ED physician or midlevel provider: ECG, plain radiologic studies. Counseling: I had a detailed discussion with the patient and/or guardian regarding: the historical points, exam findings, and any diagnostic results supporting the discharge/admit diagnosis, the presence of at least one elevated blood pressure reading (>120/80) during this emergency department visit, lab results, radiology results, the need for further work-up and treatment in the hospital. 08/22 10:09 Order name: Basic Metabolic Panel; Complete Time: 11:39 [facility] 08/22 10:09 Order name: CBC with Diff; Complete Time: 12:38 [facility] 08/22 10:09 Order name: LFT's; Complete Time: 11:39 [facility] 08/22 10:09 Order name: Troponin HS; Complete Time: 11:39 [facility] 08/22 10:09 Order name: Blood Culture Adult (2) [facility] 08/22 10:09 Order name: Lactate; Complete Time: 11:17 [facility] 08/22 10:09 Order name: Procalcitonin; Complete Time: 11:50 [facility] 08/22 10:09 Order name: COVID-19/FLU A+B (Document "Date of Onset" if Symptomatic); Complete Time: [facility] 11:50 08/22 10:09 Order name: Lipase; Complete Time: 11:39 [facility] 08/22 10:09 Order name: Urine Culture [facility] 08/22 12:08 Order name: CBC with Automated Diff [facility] 08/22 12:08 Order name: CBC with Automated Diff [facility] 08/22 12:08 Order name: Comprehensive Metabolic Panel [facility] 08/22 12:08 Order name: Comprehensive Metabolic Panel [facility] 08/22 10:09 Order name: XRAY Chest (1 view); Complete Time: 11:17 [facility] 08/22 11:10 Order name: CT Abd/Pelvis - Without Contrast; Complete Time: 12:38 [facility] 08/22 13:17 Order name: Urine Dipstick-Ancillary; Complete Time: 16:53 [facility] 08/22 13:20 Order name: Test Urine - POC 08/22 13:47 Order name: Urine --Ancillary; Complete Time: 16:53 [facility] 08/22 10:09 Order name: EKG; Complete Time: 10:10 [facility] 08/22 10:09 Order name: Cardiac monitoring; Complete Time: 10:23 [facility] 08/22 10:09 Order name: EKG - Nurse/Tech; Complete Time: 11:23 [facility] 08/22 10:09 Order name: IV Saline Lock; Complete Time: 10:38 [facility] 08/22 10:09 Order name: Labs collected and sent; Complete Time: 10:24 [facility] 08/22 10:09 Order name: O2 Sat Monitoring; Complete Time: 10:24 [facility] 08/22 12:08 Order name: CONS Physician Consult [facility] 08/22 12:08 Order name: Renal EDMS EC:54 Rate is 95 beats/min. Rhythm is regular. QRS [place] is Normal. CA interval is normal. QRS toño interval is normal. QT interval is normal. No Q waves. T waves are Normal. No ST changes noted. Clinical impression: NSR w/ Non-specific ST/T Changes and No evidence of ischemia. Interpreted by me. Reviewed by me. Administered Medications: 10:35 Drug: morphine 2 mg Route: IVP; Site: right wrist; jg9 10:38 Follow up: Response: No adverse reaction; RASS: Restless (+1) jg9 10:35 Drug: Zofran (Ondansetron) 4 mg Route: IVP; Site: right wrist; jg9 10:38 Follow up: Response: No adverse reaction jg9 10:36 Drug: Rocephin (cefTRIAXone) 1 grams Route: IV; Rate: per protocol; Site: left wrist; jg9 10:37 Follow up: Response: No adverse reaction jg9 10:37 Drug: NS 0.9% 1000 ml Route: IV; Rate: 50 ml/hr; Site: right wrist; jg9 11:23 Drug: morphine 2 mg Route: IVP; Site: right wrist; jg9 11:28 Drug: Tylenol 650 mg Route: PO; jg9 13:00 Not Given (Patient Refused): Dulcolax (bisacodyl) Suppository 10 mg CA once jg9 13:01 Drug: Bisacodyl Delayed Release Tablet 10 mg Route: PO; jg9 17:10 Follow up: Response: No adverse reaction [facility] [place] [place]:57 CANCELLED (Duplicate Order): hydrALAZINE 10 mg IVP once [facility] 16:57 CANCELLED (Duplicate Order): hydrALAZINE 10 mg PO once [facility] 17:00 Drug: Tylenol 650 mg Route: PO; jg9 17:05 Drug: hydrALAZINE 20 mg Route: IVP; Site: right wrist; jg9 17:05 Drug: HydrALAZINE 25 mg Route: PO; jg9 17:50 Drug: Dilaudid (HYDROmorphone) 0.5 mg Route: IVP; Site: right wrist; jg9 Disposition Summary: 08/22/21 12:03 Hospitalization Ordered Hospitalization Status: Inpatient Admission toño Provider: Wang Chance cha Location: Telemetry/MedSurg (Inpatient) toño Condition: Fair toño Problem: new toño Symptoms: have improved toño Bed/Room Type: Standard [facility] Room Assignment: 401(08/22/21 19:01) Diagnosis - End stage renal disease - on HD toño - Abdominal pain, unspecified toño - Fever, unspecified toño - Anemia in chronic kidney disease toño - Constipation toño Forms: - Medication Reconciliation Form toño - SBAR form toño Signatures: Dispatcher [employer] EDDanii Wisdom RN RN Oscar Miller MD MD cha Gilmore, Jennifer, RN RN jg9 Corrections: (The following items were deleted from the chart) 16:57 16:55 hydrALAZINE 10 mg IVP once ordered. toño [facility] 16:57 16:55 hydrALAZINE 10 mg PO once ordered. [facility] 19:01 12:03 toño
--- NOTE | 2021-08-22 12:04 | ER ---
Nurse's Notes [facility] Name: Nely Quinones Age: 36 yrs Sex: Female : 1985 Arrival Date: 08/22/2021 Time: 09:59 Bed 2 Private MD: Diagnosis: End stage renal disease-on HD;Abdominal pain, unspecified;Fever, unspecified;Anemia in chronic kidney disease;Constipation Presentation: 08/22 09:50 Chief complaint: EMS states: patient c/o abdomina pain and sob, patient is on dialysis jg9 and missed her last 3 treatments. Patient reports that her children were sick so she was not able to go. Coronavirus screen: Vaccine status: Patient reports being unvaccinated. Ebola Screen: Patient negative for fever greater than or equal to 101.5 degrees Fahrenheit, and additional compatible Ebola Virus Disease symptoms Patient denies exposure to infectious person. Patient denies travel to an Ebola-affected area in the 21 days before illness onset. Initial Sepsis Screen: Does the patient meet any 2 criteria? Yes Does the patient have a suspected source of infection? No. Patient's initial sepsis screen is negative. Risk Assessment: Do you want to hurt yourself or someone else? Patient reports no desire to harm self or others. Onset of symptoms is unknown. 09:50 Method Of Arrival: EMS: [facility] jg9 09:50 Acuity: LORENA 3 jg9 Triage Assessment: 10:03 General: Appears distressed, uncomfortable, Behavior is crying. Pain: Complains of pain jg9 in abdomen Pain currently is 10 out of 10 on a pain scale. Historical: - PMHx: 10:03 Asthma; dialysis L arm access; Hypertensive disorder; RENAL FAILURE; jg9 - Immunization history:: Adult Immunizations up to date. - Social history:: Smoking status: Patient denies any tobacco usage or history of. - Family history:: not pertinent. Screenin:05 Abuse screen: Denies threats or abuse. Denies injuries from another. Nutritional jg9 screening: No deficits noted. Tuberculosis screening: No symptoms or risk factors identified. Fall Risk None identified. Assessment: 10:05 GI: Bowel sounds present X 4 quads. Abd is soft Abdomen is tender to palpation X 4 jg9 quads. 17:10 Reassessment: Patient taken to dialysis. jg9 Vital Signs: 09:50 BP 169 / 101; Pulse 93; Resp 25 S; Temp 100.2(TE); Pulse Ox 96% on R/A; Weight 68.04 kg jg9 (R); Height 5 ft. 2 in. (157.48 cm) (R); Pain 10/10; 10:30 BP 169 / 104; Pulse 94; Resp 25 S; Pulse Ox 95% on R/A; Pain 10/10; jg9 11:25 BP 180 / 100; Pulse 95; Resp 22; Pulse Ox 92% on 2 lpm NC; Pain 7/10; jg9 11:28 Temp 99.6; jg9 12:00 BP 188 / 110; Pulse 94; Resp 18 S; Pulse Ox 95% ; jg9 13:00 BP 192 / 110; Pulse 102; Resp 22 S; Pulse Ox 95% on R/A; jg9 14:00 BP 178 / 110; Pulse 106; Resp 22 S; Pulse Ox 94% on R/A; jg9 15:00 BP 178 / 109; Pulse 99; Resp 22 S; Pulse Ox 96% on R/A; jg9 16:00 BP 175 / 99; Pulse 97; Resp 22 S; Pulse Ox 94% on R/A; jg9 17:00 BP 187 / 110; Pulse 102; Resp 22 S; Pulse Ox 95% on R/A; jg9 09:50 Body Mass Index 27.44 (68.04 kg, 157.48 cm) jg9 ED Course: 09:59 Patient arrived in ED. jg9 10:00 Zahira Xiao, CHELA is Primary Nurse. jg9 10:02 Triage completed. jg9 10:04 Oscar Shultz MD is Attending Physician. toño 10:05 Arm band placed on left wrist. jg9 10:05 Patient has correct armband on for positive identification. Bed in low position. Call jg9 light in reach. Side rails up X 1. 10:31 Inserted saline lock: 22 gauge in right wrist, using aseptic technique. Blood collected.em1 10:53 XRAY Chest (1 view) In Process Unspecified. EDMS 12:02 CT Abd/Pelvis - Without Contrast In Process Unspecified. EDMS 12:02 Wang Chance MD is Hospitalizing Provider. [facility] 19:22 No provider procedures requiring assistance completed. j9 19:22 Patient admitted, IV remains in place. jg9 Administered Medications: 10:35 Drug: morphine 2 mg Route: IVP; Site: right wrist; jg9 10:38 Follow up: Response: No adverse reaction; RASS: Restless (+1) jg9 10:35 Drug: Zofran (Ondansetron) 4 mg Route: IVP; Site: right wrist; jg9 10:38 Follow up: Response: No adverse reaction j9 10:36 Drug: Rocephin (cefTRIAXone) 1 grams Route: IV; Rate: per protocol; Site: left wrist; jg9 10:37 Follow up: Response: No adverse reaction j9 10:37 Drug: NS 0.9% 1000 ml Route: IV; Rate: 50 ml/hr; Site: right wrist; jg9 11:23 Drug: morphine 2 mg Route: IVP; Site: right wrist; jg9 11:28 Drug: Tylenol 650 mg Route: PO; j9 13:00 Not Given (Patient Refused): Dulcolax (bisacodyl) Suppository 10 mg MS once j9 13:01 Drug: Bisacodyl Delayed Release Tablet 10 mg Route: PO; jg9 17:10 Follow up: Response: No adverse reaction j9 16:57 CANCELLED (Duplicate Order): hydrALAZINE 10 mg IVP once [facility] 16:57 CANCELLED (Duplicate Order): hydrALAZINE 10 mg PO once [facility] 17:00 Drug: Tylenol 650 mg Route: PO; jg9 17:05 Drug: hydrALAZINE 20 mg Route: IVP; Site: right wrist; jg9 17:05 Drug: HydrALAZINE 25 mg Route: PO; jg9 17:50 Drug: Dilaudid (HYDROmorphone) 0.5 mg Route: IVP; Site: right wrist; jg9 Outcome: 12:03 Decision to Hospitalize by Provider. toño 19:22 Admitted to Med/surg jg9 19:22 Condition: stable 19:23 Patient left the ED. jg9 Signatures: Dispatcher [employer] EDOscar Shine MD MD cha Martinez, Eric em1 Zahira Xiao RN RN jg9 Corrections: (The following items were deleted from the chart) 11: 10:30 BP 169 / 104; Pulse 94bpm; Resp 25bpm; Spontaneous; Pulse Ox 95% RA; jg9 jg9
--- NOTE | 2021-08-22 12:11 | RAD REPORT ---
EXAM DESCRIPTION: CT - Abdomen Pelvis Wo Contrast - 08/22/2021 12:02 pm CLINICAL HISTORY: Abdominal pain. ABD PAIN COMPARISON: Abdomen Pelvis Wo Contrast dated 11/13/2020 TECHNIQUE: CT imaging of the abdomen and pelvis was performed without contrast. Solid organ, bowel a nd vascular assessment is limited due to lack of IV and oral contrast. All CT scans are performed using dose optimization technique as appropriate and may include automated exposure control or mA/KV adjustment according to patient size. FINDINGS: Moderate cardiomegaly is noted with mild pulmonary edema in the lung bases. The liver, spleen, pancreas, adrenal glands and kidneys are within normal limits for a limited non-co ntrast examination. Mild free fluid is seen in the abdomen and pelvis. Moderate stool retention throughout the colon. The appendix is normal. The osseous structures are within normal limits. IMPRESSION: Mild fluid retention pattern is seen as detailed. Moderate constipation. A limited non-contrast examination was performed as detailed.
[2021-08-22] MEDS ORDERED: BISACODYL E.C. 5 MG TAB PO ONE (12:23)
[2021-08-22] MEDS ORDERED: NA CHLORIDE 0.9% 1,000 ML IV PRN (12:43)
[2021-08-22] MEDS ORDERED: MANNITOL 25% 12.5 GM/50 ML VIAL IV PRN (12:43)
--- NOTE | 2021-08-22 12:52 | P.CNS ---
Date of Consult: 08/22/21 Reason for Consult: ESRD Requesting Physician: Oscar Shultz Chief Complaint: Abd pain History of Present Illness: 11:50 This 36 yrs old Black Female presents to ER via EMS with complaints of Abdominal Pain. toño 11:50 The patient presents with abdominal pain in the upper abdomen, in the lower abdomen, toño abdominal distention in the upper abdomen, in the lower abdomen. Onset: The symptoms/episode began/occurred 2 day(s) ago. 11:51 The patient has shortness of breath at rest, with light activity. Onset: The toño symptoms/episode began/occurred 3 day(s) ago. Duration: The symptoms are continuous, and are steadily getting worse. The patient's shortness of breath is aggravated by coughing, light activity, supine position, talking, walking. missed last 3 episodes of dialysis, 1 week without dialysis. The symptoms do not radiate. Associated signs and symptoms: Pertinent positives: non-productive cough, fever, nausea. Severity of symptoms: At their worst the symptoms were mild moderate in the emergency department the symptoms are worse markedly. Allergies No Known Allergies Allergy (Verified 11/19/19 21:40) Home medications list reviewed: Yes Home Medications: Cholecalciferol (Vitamin D3) [Vitamin D 5,000 IU Cap*] 5,000 units PO DAILY 11/19/19 Doxazosin [Cardura*] 2 mg PO BID 11/19/19 calcitrioL [Rocaltrol] 2 tab PO DAILY 11/19/19 Hydrocodone 5/APAP 325 [[place] 5/325*] 1 tab PO Q4H PRN tab 11/23/19 Sevelamer Carbonate [Renvela*] 800 mg PO TIDWM #90 tablet 11/23/19 Carvedilol [Coreg] 25 mg PO BID #60 tablet 11/27/19 Nifedipine Xl [Procardia Xl*] 90 mg PO BID #180 tab 11/27/19 Ramipril [Altace] 10 mg PO DAILY #30 capsule 11/27/19 Spironolactone [Aldactone] 50 mg PO DAILY #30 tablet 11/27/19 Docusate [Colace Cap*] 100 mg PO BID #60 cap 11/15/20 Nepro Shake [Nepro*] 237 ml PO BID #60 can 11/15/20 - Past Medical/Surgical History Diabetic: No -: HTN -: ESRD on HD -: C Section -: Tubal Ligation - Family History Father Medical History: Hypertension Mother Medical History: Heart disease - Social History Smoking Status: Current some day smoker Alcohol use: No CD- Drugs: No Caffeine use: No Review of Systems 10-point ROS is otherwise unremarkable General: Weakness, Malaise Gastrointestinal: Abdominal Pain, Distention Physical Examination General: Oriented x3, Cooperative, Moderate distress HEENT: Atraumatic Neck: Supple Respiratory: Expiratory wheezes (Scattered) Cardiovascular: No edema, Regular rate/rhythm, No rubs Gastrointestinal: Distended, Tenderness Musculoskeletal: No clubbing, No contractures Integumentary: No rashes, No cyanosis Neurological: Normal speech Laboratory Data (last 24 hrs) 08/22/21 10:59: WBC 5.40, Hgb 10.0 L, Hct 30.8 L, Plt Count 221 08/22/21 10:59: Sodium 135 L, Potassium 4.0, BUN 58 H, Creatinine 7.91 H*, Gl ucose 110 H, Total Bilirubin 0.4, AST 20, ALT 23, Alkaline Phosphatase 77, Lipase 53 L Imagings Data: EXAM DESCRIPTION: RAD - Chest Single View - 08/22/2021 10:53 am CLINICAL HISTORY: COUGH Chest pain. COMPARISON: Chest Single View dated 05/27/2021; Chest Single View dated 03/03/2021; Chest Single View dated 02/17/2021; Chest Single View dated 11/13/2020 FINDINGS: Portable technique limits examination quality. Mild to moderate pulmonary edema. The heart is moderately enlarged in size. No displaced fractures. IMPRESSION: Moderate volume overload pattern. EXAM DESCRIPTION: CT - Abdomen Pelvis Wo Contrast - 08/22/2021 12:02 pm CLINICAL HISTORY: Abdominal pain. ABD PAIN COMPARISON: Abdomen Pelvis Wo Contrast dated 11/13/2020 TECHNIQUE: CT imaging of the abdomen and pelvis was performed without contrast. Solid organ, bowel and vascular assessment is limited due to lack of IV and oral contrast. All CT scans are performed using dose optimization technique as appropriate and may include automated exposure control or mA/KV adjustment according to patient size. FINDINGS: Moderate cardiomegaly is noted with mild pulmonary edema in the lung bases. The liver, spleen, pancreas, adrenal glands and kidneys are within normal limits for a limited non-contrast examination. Mild free fluid is seen in the abdomen and pelvis. Moderate stool retention throughout the colon. The appendix is normal. The osseous structures are within normal limits. IMPRESSION: Mild fluid retention pattern is seen as detailed. Moderate constipation. A limited non-contrast examination was performed as detailed. Conclusions/Impression: ESRD -Acute HD ordered HTN with CKD/ CHF -Restart Coreg, Ramipril and Nifedipine Diastolic CHF, A/C -HD with UF -Low sodium diet Anemia in CKD -Monitor H&H CKD MBD -Start Vitamin D Abdominal pain Slow transit constipation -Give Dulcolax VT -Start Colace Thank you kindly for the consultation. Case reviewed with Dr. Shultz
[2021-08-22] MEDS ORDERED: ALBUMIN HUMAN 25% 50 ML IV SCH (13:00)
[2021-08-22 13:17] LABS: Urine Blood 1+ (Negative); Urine Glucose Negative (Negative); Urine Protein 2+ (Negative)
[2021-08-22] MEDS ORDERED: HYDRALAZINE HCL 20 MG/ML VIAL ONE (17:00)
[2021-08-22] MEDS ORDERED: HYDRALAZINE HCL 10 MG TABLET ONE ×3 (17:00→17:04)
[2021-08-22] MEDS ORDERED: METOPROLOL TARTRATE 5 MG/5 ML INJ IV STA (17:33)
[2021-08-22] MEDS ORDERED: HYDROMORPHONE HCL 1 MG/ML INJ ONE (17:45)
[2021-08-22] MEDS ORDERED: cloNIDine HCL 0.1 MG TAB PO ONE ×2 (18:38→21:54)
[2021-08-22] MEDS ORDERED: cloNIDine HCL 0.1 MG TAB ONE (18:44)
[2021-08-22] MEDS ORDERED: DOCUSATE NA 100 MG CAP PO SCH (21:00)
[2021-08-22] MEDS: MAGNESIUM OXIDE 400 MG TAB PO SCH (21:00)
[2021-08-22] MEDS: carvediloL 25 MG TAB PO SCH (21:59)
[2021-08-22] MEDS: ramipriL 5 MG CAP PO SCH (22:00)
[2021-08-22] MEDS: DOCUSATE NA 100 MG CAP PO SCH (22:01)
[2021-08-22] MEDS ORDERED: HYDRALAZINE HCL 10 MG TABLET PO PRN (23:53)
[2021-08-23] MEDS: ACETAMINOPHEN 500 MG TAB PO PRN ×3 (00:57→18:10)
[2021-08-23] MEDS: NIFEDIPINE XL 30 MG TABLET PO SCH ×3 (00:57→20:27)
[2021-08-23] MEDS: HYDROMORPHONE HCL 0.5 MG/0.5 ML INJ IV PRN ×3 (03:18→18:10)
[2021-08-23 05:34] LABS: Absolute Lymphocytes (CBC) 0.2 K/uL (0.7-4.9); Hematocrit 28.1 % (36.0-45.0); Lymphocytes % 5.4 % (15.3-44.8); MPV 8.3 fL (7.6-11.3); RBC Red Blood Cell Count 3.03 M/uL (3.86-4.86)
[2021-08-23 05:56] LABS: Albumin 2.9 g/dL (3.4-5.0); Bilirubin Total 0.4 mg/dL (0.2-1.0); Protein, Total 6.3 g/dL (6.4-8.2)
--- NOTE | 2021-08-23 07:37 | P.HP ---
Certification for Inpatient Patient admitted to: Inpatient With expected LOS: >2 Midnights Patient will require the following post-hospital care: None Practitioner: I am a practitioner with admitting privileges, knowledge of patient current condition, hospital course, and medical plan of care. Services: Services provided to patient in accordance with Admission requirements found in Title 42 Section 412.3 of the Code of Federal Regulations Patient History Date of Service: 08/22/21 Reason for admission: Abd pain History of Present Illness: Patient is a 36-year-old female came to the hospital with abdominal discomfort. Patient was worked up in the emergency room and her work-up revealed poorly controlled blood pressure. She also had a CT of the abdomen pelvis that did not reveal any significant abnormalities except for some constipation and fluid retention. Patient has been poorly compliant with her dialysis. She has missed her last 3 sessions. She started having some shortness of breath. She came to the emergency room for further evaluation. In the emergency room her chest x- ray did show some pulmonary edema. We discussed with nephrology and they arrange for hemodialysis. During dialysis patient has been severely hypertensive. She will be admitted for strict blood pressure control. Allergies No Known Allergies Allergy (Verified 11/19/19 21:40) Home Medications: Cholecalciferol (Vitamin D3) [Vitamin D 5,000 IU Cap*] 5,000 units PO DAILY 11/19/19 Doxazosin [Cardura*] 2 mg PO BID 11/19/19 calcitrioL [Rocaltrol] 2 tab PO DAILY 11/19/19 Hydrocodone 5/APAP 325 [[place] 5/325*] 1 tab PO Q4H PRN tab 11/23/19 Sevelamer Carbonate [Renvela*] 800 mg PO TIDWM #90 tablet 11/23/19 Carvedilol [Coreg] 25 mg PO BID #60 tablet 11/27/19 Nifedipine Xl [Procardia Xl*] 90 mg PO BID #180 tab 11/27/19 Ramipril [Altace] 10 mg PO DAILY #30 capsule 11/27/19 Spironolactone [Aldactone] 50 mg PO DAILY #30 tablet 11/27/19 Docusate [Colace Cap*] 100 mg PO BID #60 cap 11/15/20 Nepro Shake [Nepro*] 237 ml PO BID #60 can 11/15/20 - Past Medical/Surgical History Diabetic: No -: HTN -: ESRD on HD -: C Section -: Tubal Ligation - Family History Father Medical History: Hypertension Mother Medical History: Heart disease - Social History Smoking Status: Former smoker Alcohol use: No CD- Drugs: No Caffeine use: No Review of Systems 10-point ROS is otherwise unremarkable Physical Examination - Vital Signs Temperature: 99.7 F Blood Pressure: 149/78 Pulse: 79 Respirations: 28 Pulse Ox (%): 94 - Physical Exam General: Alert, In no apparent distress, Oriented x3 HEENT: Atraumatic, PERRLA, Mucous membr. moist/pink, EOMI, Sclerae nonicteric Neck: Supple, 2+ carotid pulse no bruit, No LAD, Without JVD or thyroid abnormality Respiratory: Diminished, Crackles/rales Cardiovascular: Regular rate/rhythm, Normal S1 S2, Abnormal S3, No murmurs Gastrointestinal: Normal bowel sounds, Soft and benign, Non-distended, No tenderness Musculoskeletal: No clubbing, No swelling, No tenderness Integumentary: No rashes Neurological: Normal gait, Normal speech, Normal strength at 5/5 x4 extr, Normal tone, Sensation intact, Cranial nerves 3-12 intact, Normal affect Lymphatics: No axilla or inguinal lymphadenopathy - Studies Laboratory Data (last 24 hrs) 08/22/21 10:59: WBC 5.40, Hgb 10.0 L, Hct 30.8 L, Plt Count 221 08/22/21 10:59: Sodium 135 L, Potassium 4.0, BUN 58 H, Creatinine 7.91 H*, Glucose 110 H, Total Bilirubin 0.4, AST 20, ALT 23, Alkaline Phosphatase 77, Lipase 53 L Assessment & Plan - Problems (Diagnosis) (1) Abdominal pain Current Visit: Yes Status: Acute (2) Pulmonary edema Current Visit: No Status: Acute (3) Constipation Current Visit: Yes Status: Acute (4) End stage renal disease on dialysis Current Visit: No Status: Chronic (5) HTN (hypertension) Current Visit: No Status: Chronic Qualifiers: Hypertension type: primary hypertension Qualified Code(s): I10 - Essential (primary) hypertension - Plan Plan: 1. Strict blood pressure control; patient with significantly elevated blood pressure at this time; hypertensive emergency. Slowly lower MAP by 25%. 2. Laxative 3. Hemodialysis per nephrology 4. Pain control 5. Monitor electrolytes closely 6. GI and DVT prophylaxis Discharge Plan: Home Plan to discharge in: Greater than 2 days - Advance Directives Does patient have a Living Will: No Does patient have a Durable POA for Healthcare: No - Code Status/Comfort Care Code Status Assessed: Yes Code Status: Full Code Critical Care: No Time Spent Managing PTS Care (In Minutes): 45
--- NOTE | 2021-08-23 07:53 | P.PN ---
Subjective Date of Service: 08/23/21 Subjective: Improving Patient had a rapid response called during hemodialysis. Blood pressure was severely elevated 220/120. She was really anxious as well. She mentioned to the dialysis nurse that she felt she was going to . We got her blood pressure better controlled. We got her dialyzed. Her clinical symptoms are better. This morning she was a little short of breath. Patient spiked a fever of 101.4. Unknown etiology. Still having some abdominal discomfort and shor tness of breath. We will repeat chest x-ray. Cultures are pending. Because of so much going on with her we will change her to an inpatient hospitalization. Review of Systems 10-point ROS is otherwise unremarkable Physical Examination - Vital Signs Temperature: 99.7 F Blood Pressure: 149/78 Pulse: 79 Respirations: 28 Pulse Ox (%): 94 - Physical Exam General: Alert, In no apparent distress, Oriented x3 HEENT: Atraumatic, PERRLA, EOMI Neck: Supple, JVD not distended Respiratory: Diminished, Crackles/rales Cardiovascular: Regular rate/rhythm, Normal S1 S2, Systolic murmur Gastrointestinal: Normal bowel sounds, Soft and benign, Non-distended, Tenderness Musculoskeletal: No tenderness Integumentary: No rashes Neurological: Normal speech, Normal tone, Normal affect Lymphatics: No axilla or inguinal lymphadenopathy - Studies Laboratory Data (last 24 hrs) 08/22/21 10:59: WBC 5.40, Hgb 10.0 L, Hct 30.8 L, Plt Count 221 08/22/21 10:59: Sodium 135 L, Potassium 4.0, BUN 58 H, Creatinine 7.91 H*, Glucose 110 H, Total Bilirubin 0.4, AST 20, ALT 23, Alkaline Phosphatase 77, Lipase 53 L Medications List Reviewed: Yes Assessment & Plan - Problems (Diagnosis) (1) Abdominal pain Current Visit: Yes Status: Acute (2) Pulmonary edema Current Visit: No Status: Acute (3) Constipation Current Visit: Yes Status: Acute (4) End stage renal disease on dialysis Current Visit: No Status: Chronic (5) HTN (hypertension) Current Visit: No Status: Chronic Qualifiers: Hypertension type: primary hypertension Qualified Code(s): I10 - Essential (primary) hypertension - Plan Plan: 1. Blood pressure better controlled this morning. Continue to gradually lower the blood pressure. 2. Fever unknown source. Culture and broad-spectrum antibiotics 3. Hemodialysis per nephrology 4. Pain control 5. Monitor electrolytes closely 6. Echocardiogram 7. GI and DVT prophylaxis Discharge Plan: Home Plan to discharge in: Greater than 2 days - Advance Directives Does patient have a Living Will: No Does patient have a Durable POA for Healthcare: No - Code Status/Comfort Care Code Status: Full Code Critical Care: No Time Spent Managing PTS Care (In Minutes): 35
[2021-08-23] MEDS ORDERED: EPOETIN ALFA 10,000 UNIT/ML VIAL SQ SCH (09:00)
[2021-08-23] MEDS ORDERED: Levofloxacin500mg IV 500 MG/100 ML BAG IV SCH (09:00)
[2021-08-23] MEDS: DOCUSATE NA 100 MG CAP PO SCH ×2 (09:17→20:27)
[2021-08-23] MEDS: VITAMIN D 5,000 UNIT CAP PO SCH (09:17)
[2021-08-23] MEDS: carvediloL 25 MG TAB PO SCH ×2 (09:19→20:29)
[2021-08-23] MEDS: CALCITROL 0.25 MCG CAP PO SCH (09:19)
[2021-08-23] MEDS: BENZONATATE 100 MG CAP PO PRN ×2 (09:40→18:11)
[2021-08-23 09:41] VITALS: BMI 26.7
--- NOTE | 2021-08-23 10:11 | EKG ---
Test Date: 2021-08-22 Test Time: 11:22:30 Resource Development Director: MEHNAZ MEASUREMENT RESULTS: Intervals: Rate: 95 AL: 138 QRSD: 74 QT: 376 QTc: 472 [place]: P: 64 AL: 138 QRS: 58 T: 40 INTERPRETIVE STATEMENTS: Normal sinus rhythm Left atrial enlargement Septal infarct, age undetermined Abnormal ECG Compared to ECG 07/14/2021 08:52:07 Myocardial infarct finding now present Prolonged QT interval no longer present Electronically Signed On 08-23-21 10:10:53 CDT by Eldon Huddleston
--- NOTE | 2021-08-23 10:42 | RAD REPORT ---
EXAM DESCRIPTION: RAD - Chest Single View - 08/23/2021 10:15 am CLINICAL HISTORY: productive cough COMPARISON: Chest Single View dated 08/22/2021; Chest Single View dated 05/27/2021; Chest Single View dated 03/03/2021; Chest Single View dated 02/17/2021 FINDINGS: Lines: None. Lungs: Worsened aeration of the lungs with increasing bilateral interstitial and airspace disease . Pleural: No significant pleural effusions or pneumothorax. Cardiac: Cardiomegaly. Bones: No acute fractures. Other: IMPRESSION: Mild worsening aeration lungs compared with 08/22/2021 could reflect edema with or witho ut pneumonia.
[2021-08-23] MEDS ORDERED: ONDANSETRON 4 MG/2 ML VIAL IV PRN (12:41)
[2021-08-23] MEDS ORDERED: HYDROCORTISONE SUC 100 MG INJ IV ONE (12:41)
[2021-08-23] MEDS ORDERED: VANCOMYCIN 1 GM in NA CHLORIDE 0.9% 250 ML IVPB ONE (14:00)
[2021-08-23] MEDS: ramipriL 5 MG CAP PO SCH (20:05)
[2021-08-23] MEDS: MAGNESIUM OXIDE 400 MG TAB PO SCH (20:15)
[2021-08-24] MEDS: HYDROMORPHONE HCL 0.5 MG/0.5 ML INJ IV PRN ×4 (00:40→20:11)
[2021-08-24] MEDS: ACETAMINOPHEN 500 MG TAB PO PRN ×3 (02:06→22:26)
[2021-08-24] MEDS: BENZONATATE 100 MG CAP PO PRN ×2 (05:41→23:36)
[2021-08-24 06:10] LABS: Absolute Lymphocytes (CBC) 0.5 K/uL (0.7-4.9); Hematocrit 32.3 % (36.0-45.0); Lymphocytes % 16.9 % (15.3-44.8); MPV 8.7 fL (7.6-11.3); RBC Red Blood Cell Count 3.51 M/uL (3.86-4.86)
[2021-08-24 06:57] LABS: Potassium 5.3 mmol/L (3.5-5.1)
[2021-08-24 06:58] LABS: Magnesium 2.7 mg/dL (1.8-2.4)
[2021-08-24] MEDS: DOCUSATE NA 100 MG CAP PO SCH ×2 (08:07→20:03)
[2021-08-24] MEDS: CALCITROL 0.25 MCG CAP PO SCH (08:07)
[2021-08-24] MEDS: VITAMIN D 5,000 UNIT CAP PO SCH (08:08)
[2021-08-24] MEDS: carvediloL 25 MG TAB PO SCH ×2 (08:08→20:04)
[2021-08-24] MEDS: NIFEDIPINE XL 30 MG TABLET PO SCH ×2 (08:08→20:03)
--- NOTE | 2021-08-24 08:25 | RAD REPORT ---
EXAM DESCRIPTION: RAD - Chest Single View - 08/24/2021 6:19 am CLINICAL HISTORY: pneumonia Chest pain. COMPARISON: Chest Single View dated 08/23/2021; Chest Single View dated 08/22/2021; Chest Single View dated 05/27/2021; Chest Single View dated 03/03/2021 FINDINGS: Portable technique limits examination quality. Mild bilateral pulmonary opacities are seen, mildly improved since yesterday's study. The heart is mi ldly enlarged in size. No displaced fractures. IMPRESSION: Mild improvement lung aeration seen since yesterday's study.
[2021-08-24] MEDS ORDERED: Levofloxacin 250mg IV 250 MG/50 ML BAG IV SCH (09:00)
[2021-08-24] MEDS ORDERED: VANCOMYCIN 500 MG in NA CHLORIDE 0.9% 100 ML IVPB SCH ×3 (13:00→15:00)
--- NOTE | 2021-08-24 14:16 | P.PN ---
Date of Service: 08/24/21 Subjective: continues with abd pain ROS: 10 point ROS as noted above, otherwise negative Physical Exam: General: Alert, oriented x3, tired after dialysis HEENT: Atraumatic, PERRLA, EOMI Respiratory: Diminished, nonlabored on room air Cardiovascular: Regular rate/rhythm, Normal S1 S2, Systolic murmur Gastrointestinal: soft, nontender, nondistended Integumentary: No rashes Neurological: Normal speech, Normal tone, Normal affect Problem List Abdominal pain Pulmonary edema Constipation ESRD on HD HTN BP improving tolerating HD fever of unknown source, blood Cx prelim growing CONs CXR improving ID consulted abd pian improving echo ordered diet as tolerated, pain meds as tolerated Code: full Dispo: home, ~2 days Time Spent Managing PTS Care (In Minutes): 35
[2021-08-24] MEDS: ramipriL 5 MG CAP PO SCH (20:04)
[2021-08-24] MEDS: MAGNESIUM OXIDE 400 MG TAB PO SCH (20:05)
[2021-08-24] MEDS ORDERED: Levofloxacin500mg IV 500 MG/100 ML BAG IV SCH (21:00)
--- NOTE | 2021-08-24 21:30 | P.PN ---
Date of Service: 08/24/21 Vital Signs Temp Pulse Resp BP Pulse Ox 99 F 67 19 177/106 H 100 08/24/21 19:41 08/24/21 20:04 08/24/21 19:41 08/24/21 20:04 08/24/21 19:41 Medications Acetaminophen (Acetaminophen 500 Mg Tab) 500 mg PO Q6H PRN PRN Reason: TEMP > 100' F Last Admin: 08/24/21 17:28 Dose: 500 mg Documented by: Benzonatate (Benzonatate 100 Mg Cap) 100 mg PO TID PRN PRN Reason: COUGH Last Admin: 08/24/21 05:41 Dose: 100 mg Documented by: Calcitriol (Calcitrol 0.25 Mcg Cap) 0.5 mcg PO DAILY [facility] Last Admin: 08/24/21 08:07 Dose: 0.5 mcg Documented by: Carvedilol (Carvedilol 25 Mg Tab) 25 mg PO BID [facility] Last Admin: 08/24/21 20:04 Dose: 25 mg Documented by: Cholecalciferol (Vitamin D 5,000 Unit Cap) 5,000 unit PO DAILY [facility] Last Admin: 08/24/21 08:08 Dose: 5,000 unit Documented by: Docusate Sodium (Docusate Na 100 Mg Cap) 100 mg PO BID [facility] Last Admin: 08/24/21 20:03 Dose: 100 mg Documented by: Heparin Sodium (Porcine) (Heparin 1,000 Unit/Ml Vial) 3,000 unit IV EVERY HD PRN PRN Reason: DIALYSIS Last Admin: 08/24/21 09:25 Dose: 3,000 unit Documented by: Hydralazine HCl (Hydralazine Hcl 10 Mg Tablet) 10 mg PO BID PRN PRN Reason: Titrate to SBP (MUST DEFINE) Hydromorphone HCl (Hydromorphone Hcl 0.5 Mg/0.5 Ml Inj) 0.5 mg IV Q6H PRN PRN Reason: Pain scale 5-7 (Moderate) Last Admin: 08/24/21 20:11 Dose: 0.5 mg Documented by: Albumin Human (Albumin 25%) 50 mls @ 100 mls/hr IV EVERY HD [facility] Levofloxacin/Dextrose (Levaquin 500 Mg/100 Ml Ivpb) 500 mg in 100 mls @ 100 mls/hr IV Q48H [facility]; Protocol Last Admin: 08/24/21 20:05 Dose: 100 mls Documented by: Vancomycin HCl 500 mg/ Sodium (Chloride) 100 mls @ 100 mls/hr IVPB AFTER EACH DIALYSIS [facility] Last Admin: 08/24/21 13:38 Dose: 100 mls Documented by: Magnesium Oxide (Magnesium Oxide 400 Mg Tab) 400 mg PO BEDTIME [facility] Last Admin: 08/24/21 20:05 Dose: 400 mg Documented by: Mannitol (Mannitol 25% 12.5 Gm/50 Ml Vial) 12.5 gm IV EVERY HD PRN PRN Reason: Titrate to SBP (MUST DEFINE) Nifedipine (Nifedipine Xl 30 Mg Tablet) 30 mg PO BID [facility] Last Admin: 08/24/21 20:03 Dose: 30 mg Documented by: Ondansetron HCl (Ondansetron 4 Mg/2 Ml Vial) 4 mg IV Q4H PRN PRN Reason: NAUSEA / VOMITING Last Admin: 08/23/21 12:50 Dose: 4 mg Documented by: Ramipril (Ramipril 5 Mg Cap) 10 mg PO BEDTIME [facility] Last Admin: 08/24/21 20:04 Dose: 10 mg Documented by: Sodium Chloride (Flush Normal Saline 10 Ml) 10 ml IV BID [facility] Last Admin: 08/24/21 08:10 Dose: 10 ml Documented by: Microbiology Results 08/22/21 10:45 Blood - Blood Aerobic Blood Culture - Preliminary 08/22/21 10:45 Blood - Blood Blood Culture Gram Stain - Final 08/22/21 10:45 Blood - Blood Anaerobic Blood Culture - Preliminary No growth in 24 hours. 08/22/21 10:15 Blood - Blood Aerobic Blood Culture - Preliminary No growth in 24 hours. 08/22/21 10:15 Blood - Blood Anaerobic Blood Culture - Preliminary No growth in 24 hours. 08/22/21 13:10 Catheterized Urine [place] Count - Final No growth. 08/22/21 13:10 Catheterized Urine - Final No growth. Assessment/ Plan: Nephrology No dyspnea No chest pain Feeling better today No acute events overnight Vitals, medications, blood work and imaging reviewed in the chart General: Oriented x3, Cooperative, Moderate distress HEENT: Atraumatic Neck: Supple Respiratory: Expiratory wheezes (Scattered) Cardiovascular: No edema, Regular rate/rhythm, No rubs Gastrointestinal: Distended, Tenderness Musculoskeletal: No clubbing, No contractures Integumentary: No rashes, No cyanosis Neurological: Normal speech Laboratory Data (last 24 hrs) 08/22/21 10:59: WBC 5.40, Hgb 10.0 L, Hct 30.8 L, Plt Count 221 08/22/21 10:59: Sodium 135 L, Potassium 4.0, BUN 58 H, Creatinine 7.91 H*, Glucose 110 H, Total Bilirubin 0.4, AST 20, ALT 23, Alkaline Phosphatase 77, Lip ase 53 L Imagings Data: EXAM DESCRIPTION: RAD - Chest Single View - 08/22/2021 10:53 am CLINICAL HISTORY: COUGH Chest pain. COMPARISON: Chest Single View dated 05/27/2021; Chest Single View dated 03/03/2021; Chest Single View dated 02/17/2021; Chest Single View dated 11/13/2020 FINDINGS: Portable technique limits examination quality. Mild to moderate pulmonary edema. The heart is moderately enlarged in size. No displaced fractures. IMPRESSION: Moderate volume overload pattern. EXAM DESCRIPTION: CT - Abdomen Pelvis Wo Contrast - 08/22/2021 12:02 pm CLINICAL HISTORY: Abdominal pain. ABD PAIN COMPARISON: Abdomen Pelvis Wo Contrast dated 11/13/2020 TECHNIQUE: CT imaging of the abdomen and pelvis was performed without contrast. Solid organ, bowel and vascular assessment is limited due to lack of IV and oral contrast. All CT scans are performed using dose optimization technique as appropriate and may include automated exposure control or mA/KV adjustment according to patient size. FINDINGS: Moderate cardiomegaly is noted with mild pulmonary edema in the lung bases. The liver, spleen, pancreas, adrenal glands and kidneys are within normal limits for a limited non-contrast examination. Mild free fluid is seen in the abdomen and pelvis. Moderate stool retention throughout the colon. The appendix is normal. The osseous structures are within normal limits. IMPRESSION: Mild fluid retention pattern is seen as detailed. Moderate constipation. A limited non-contrast examination was performed as detailed. Conclusions/Impression: ESRD -HD TIW -Seen and examined on HD Hyperkalemia -HD TIW HTN with CKD/ CHF -Continue Coreg, Ramipril and Nifedipine Diastolic CHF, A/C -HD with UF -Low sodium diet Anemia in CKD -Monitor H&H CKD MBD -Continue Vitamin D Abdominal pain Slow transit constipation -Continue Colace
[2021-08-24] MEDS: HYDROCODONE/APAP 5/325 MG TAB PO PRN (23:30)
[2021-08-25] MEDS: HYDROMORPHONE HCL 0.5 MG/0.5 ML INJ IV PRN ×2 (03:05→09:34)
[2021-08-25 06:19] LABS: Absolute Lymphocytes (CBC) 0.7 K/uL (0.7-4.9); Hematocrit 34.9 % (36.0-45.0); Lymphocytes % 22.6 % (15.3-44.8); RBC Red Blood Cell Count 3.83 M/uL (3.86-4.86)
[2021-08-25 06:49] LABS: Magnesium 2.3 mg/dL (1.8-2.4); Potassium 3.8 mmol/L (3.5-5.1)
--- NOTE | 2021-08-25 06:57 | P.PN ---
Date of Service: 08/25/21 Subjective: ROS: 10 point ROS as noted above, otherwise negative Physical Exam: General: Alert, oriented x3, tired after dialysis HEENT: Atraumatic, PERRLA, EOMI Respiratory: Diminished, nonlabored on room air Cardiovascular: Regular rate/rhythm, Normal S1 S2, Systolic murmur Gastrointestinal: soft, nontender, nondistended Integumentary: No rashes Neurological: Normal speech, Normal tone, Normal affect Problem List Abdominal pain Pulmonary edema Constipation ESRD on HD HTN BP improving tolerating HD fever of unknown source, blood Cx prelim growing CONs CXR improving ID consulted abd pain improving diet as tolerated, pain meds as tolerated Code: full Dispo: home, ~2 days Time Spent Managing PTS Care (In Minutes): 35
--- NOTE | 2021-08-25 08:06 | RAD REPORT ---
EXAM DESCRIPTION: RAD - Abdomen 1 View (KUB) - 08/25/2021 8:00 am CLINICAL HISTORY: Constipation FINDINGS: Mild to moderate stool within the colon appears less than on the prior CT. Unremarkable bowel gas pattern
[2021-08-25] MEDS: CALCITROL 0.25 MCG CAP PO SCH (08:19)
[2021-08-25] MEDS: HYDROCODONE/APAP 5/325 MG TAB PO PRN (08:19)
[2021-08-25] MEDS: VITAMIN D 5,000 UNIT CAP PO SCH (08:20)
[2021-08-25] MEDS: DOCUSATE NA 100 MG CAP PO SCH (08:20)
[2021-08-25] MEDS: NIFEDIPINE XL 30 MG TABLET PO SCH (08:20)
[2021-08-25] MEDS: carvediloL 25 MG TAB PO SCH (08:20)
[2021-08-25] MEDS ORDERED: CEFEPIME 1 GM in NA CHLORIDE 0.9% 100 ML IV ONE (09:00)
[2021-08-25 09:10] VITALS: O2SAT 98
[2021-08-25 11:47] VITALS: BP 143/91; TEMP 99.2
--- NOTE | 2021-08-25 13:24 | P.CNS ---
Date of Consult: 08/25/21 Chief Complaint: Abd pain History of Present Illness: The patient is a 36-year-old female with a past medical history of ESRD on HD who presented to the emergency department secondary to abdominal discomfort. Patient states that her kids have been at home sick viral gastritis. CT abdomen pelvis negative for any acute findings. Chest x-ray demonstrated pulmonary edema. Blood cultures grew coagulase-negative staph in 1 out of 4 bottles, likely representing contamination. Urine and sputum culture showed no growth. Infectious disease has been consulted as the patient had a fever with T-max of 101.4 on 09/10. Since then patient has been afebrile. Patient was empirically placed on cefepime and vancomycin, states that she started feeling much better with these antibiotics. She currently denies nausea/vomiting/diarrhea/shortness of breath/chest pain. Allergies No Known Allergies Allergy (Verified 11/19/19 21:40) Home Medications: Carvedilol [Coreg] 25 mg PO BID #60 tablet 11/27/19 Ramipril [Altace] 10 mg PO DAILY #30 capsule 11/27/19 Spironolactone [Aldactone] 50 mg PO DAILY #30 tablet 11/27/19 Doxazosin Mesylate 1 tab PO BID 08/25/21 Hydrocodone/Chlorphen Polis [Tussionex Oral Susp*] 1 tsp PO Q12H PRN 08/25/21 Nifedipine Xl [Procardia Xl*] 90 mg PO DAILY 08/25/21 - Past Medical/Surgical History Diabetic: No -: HTN -: ESRD on HD -: C Section -: Tubal Ligation - Family History Father Medical History: Hypertension Mother Medical History: Heart disease - Social History Smoking Status: Current some day smoker Alcohol use: No CD- Drugs: No Caffeine use: No Review of Systems 10-point ROS is otherwise unremarkable Physical Examination Temp Pulse Resp BP Pulse Ox 99.2 F 67 16 143/91 H 98 08/25/21 11:45 08/25/21 11:45 08/25/21 11:45 08/25/21 11:45 08/25/21 11:45 General: Alert, In no apparent distress HEENT: Atraumatic, Normocephalic Neck: Supple, 2+ carotid pulse no bruit Respiratory: Clear to auscultation bilaterally, Normal air movement Cardiovascular: No edema, Regular rate/rhythm, Normal S1 S2 Capillary refill: <2 Seconds Gastrointestinal: Normal bowel sounds Musculoskeletal: No clubbing, No swelling, No contractures Conclusions/Impression: Assessment/plan Fever -Patient with isolated fever on 08/23 with T-max of 101.4. Patient placed on empiric antibiotics including vancomycin and cefepime. All cultures negative, patient now afebrile with no leukocytosis. Recommend sending patient home on 5 days of oral Levaquin. Plan of care discussed with Dr. Magallanes Thank you for consultation
--- NOTE | 2021-08-25 14:29 | P.DS ---
Admission Date: 08/23/21 Discharge Date: 08/25/21 Disposition: ROUTINE DISCHARGE Discharge Condition: GOOD Reason for Admission: Abd pain Consultations: Nephrology Infectious disease Procedures: Problem List Abdominal pain secondary to constipation, suspected viral syndrome Pulmonary edema Constipation ESRD on HD HTN Brief History of Present Illness: 36-year-old female came to the hospital with abdominal discomfort. Patient was worked up in the emergency room and her work-up revealed poorly controlled blood pressure. She also had a CT of the abdomen pelvis that did not reveal any significant abnormalities except for some constipation and fluid retention. Patient has been poorly compliant with her dialysis. She has missed her last 3 sessions. She started having some shortness of breath. She came to the emergency room for further evaluation. In the emergency room her chest x-ray did show some pulmonary edema. We discussed with nephrology and they arrange for hemodialysis. During dialysis patient has been severely hypertensive. Hospital Course: Hypertension improved with reinitiation of home medications and dialysis. Patient was evaluated by CT scan without any acute findings. She was noted to have a fever to 101. She received empiric IV antibiotics to cover for possible bacterial infection. She improved and testing for bacterial infections were negative. Infectious disease team was consulted and recommended discharge home with ~5 more days of levaquin. Follow up with PCP in 3-5 days Follow up with Nephrology in a few weeks Continue dialysis as scheduled. Vital Signs/Physical Exam: Temp Pulse Resp BP Pulse Ox 99.2 F 67 16 143/91 H 98 08/25/21 11:45 08/25/21 11:45 08/25/21 11:45 08/25/21 11:45 08/25/21 11:45 Physical Exam: General: Alert, oriented x3 HEENT: Atraumatic, PERRLA, EOMI Respiratory: Diminished, nonlabored on room air Cardiovascular: Regular rate/rhythm, Normal S1 S2 Gastrointestinal: soft, nontender, nondistended Integumentary: No rashes Neurological: Normal speech, Normal tone, Normal affect Laboratory Data at Discharge: WBC 3.30 K/uL (4.3-10.9) L 08/25/21 06:07 Hgb 11.6 g/dL (12.0-15.0) L 08/25/21 06:07 Hct 34.9 % (36.0-45.0) L 08/25/21 06:07 Plt Count 236 K/uL (152-406) 08/25/21 06:07 Sodium 138 mmol/L (136-145) 08/25/21 06:07 Potassium 3.8 mmol/L (3.5-5.1) 08/25/21 06:07 BUN 25 mg/dL (7-18) H D 08/25/21 06:07 Creatinine 5.22 mg/dL (0.55-1.3) H* D 08/25/21 06:07 Glucose 97 mg/dL (74-106) 08/25/21 06:07 Magnesium 2.3 mg/dL (1.8-2.4) 08/25/21 06:07 Total Bilirubin 0.4 mg/dL (0.2-1.0) 08/23/21 04:23 AST 18 U/L (15-37) 08/23/21 04:23 ALT 23 U/L (12-78) 08/23/21 04:23 Alkaline Phosphatase 60 U/L (45-117) 08/23/21 04:23 Lipase 53 U/L (73-393) L 08/22/21 10:59 Home Medications: Carvedilol [Coreg] 25 mg PO BID #60 tablet 11/27/19 Ramipril [Altace] 10 mg PO DAILY #30 capsule 11/27/19 Spironolactone [Aldactone] 50 mg PO DAILY #30 tablet 11/27/19 Doxazosin Mesylate 1 tab PO BID 08/25/21 Hydrocodone/Chlorphen Polis [Tussionex Oral Susp*] 1 tsp PO Q12H PRN 08/25/21 Levofloxacin [Levaquin] 250 mg PO Q48H 6 Days #3 tablet 08/25/21 Nifedipine Xl [Procardia Xl*] 90 mg PO DAILY 08/25/21 New Medications: Levofloxacin [Levaquin] 250 mg PO Q48H 6 Days #3 tablet Physician Discharge Instructions: Patient was evaluated by CT scan without any acute findings. She was noted to have a fever to 101. She received empiric IV antibiotics to cover for possible bacterial infection. She improved and testing for bacterial infections were negative. Infectious disease team was consulted and recommended discharge home with ~5 more days of levaquin. Follow up with PCP in 3-5 days Follow up with Nephrology in a few weeks Continue dialysis as scheduled. Diet: Renal Activity: Ad corby Followup: NONE,NONE [Primary Care Provider] - 1-2 Weeks ([facility] to schedule an appointment) Time spent managing pt's care (in minutes): 45
--- NOTE | 2021-08-25 23:14 | P.PN ---
Date of Service: 08/25/21 Vital Signs Temp Pulse Resp BP Pulse Ox 99.2 F 67 16 143/91 H 98 08/25/21 11:45 08/25/21 11:45 08/25/21 11:45 08/25/21 11:45 08/25/21 11:45 Microbiology Results 08/22/21 10:45 Blood - Blood Aerobic Blood Culture - Preliminary 08/22/21 10:45 Blood - Blood Blood Culture Gram Stain - Final 08/22/21 10:45 Blood - Blood Anaerobic Blood Culture - Preliminary No growth in 24 hours. 08/22/21 10:15 Blood - Blood Aerobic Blood Culture - Preliminary No growth in 24 hours. 08/22/21 10:15 Blood - Blood Anaerobic Blood Culture - Preliminary No growth in 24 hours. 08/22/21 13:10 Catheterized Urine [place] Count - Final No growth. 08/22/21 13:10 Catheterized Urine - Final No growth. Assessment/ Plan: Nephrology No dyspnea No chest pain Feeling better today and wants to go home No acute events overnight Vitals, medications, blood work and imaging reviewed in the chart General: Oriented x3, Cooperative, Moderate distress HEENT: Atraumatic Neck: Supple Respiratory: Expiratory wheezes (Scattered) Cardiovascular: No edema, Regular rate/rhythm, No rubs Gastrointestinal: Distended, Tenderness Musculoskeletal: No clubbing, No contractures Integumentary: No rashes, No cyanosis Neurological: Normal speech Laboratory Data (last 24 hrs) 08/22/21 10:59: WBC 5.40, Hgb 10.0 L, Hct 30.8 L, Plt Count 221 08/22/21 10:59: Sodium 135 L, Potassium 4.0, BUN 58 H, Creatinine 7.91 H*, Glucose 110 H, Total Bilirubin 0.4, AST 20, ALT 23, Alkaline Phosphatase 77, Lipase 53 L Imagings Data: EXAM DESCRIPTION: RAD - Chest Single View - 08/22/2021 10:53 am CLINICAL HISTORY: COUGH Chest pain. COMPARISON: Chest Single View dated 05/27/2021; Chest Single View dated 03/03/2021; Chest Single View dated 02/17/2021; Chest Single View dated 11/13/2020 FINDINGS: Portable technique limits examination quality. Mild to moderate pulmonary edema. The heart is moderately enlarged in size. No displaced fractures. IMPRESSION: Moderate volume overload pattern. EXAM DESCRIPTION: CT - Abdomen Pelvis Wo Contrast - 08/22/2021 12:02 pm CLINICAL HISTORY: Abdominal pain. ABD PAIN COMPARISON: Abdomen Pelvis Wo Contrast dated 11/13/2020 TECHNIQUE: CT imaging of the abdomen and pelvis was performed without contrast. Solid organ, bowel and vascular assessment is limited due to lack of IV and oral contrast. All CT scans are performed using dose optimization technique as appropriate and may include automated exposure control or mA/KV adjustment according to patient size. FINDINGS: Moderate cardiomegaly is noted with mild pulmonary edema in the lung bases. The liver, spleen, pancreas, adrenal glands and kidneys are within normal limits for a limited non-contrast examination. Mild free fluid is seen in the abdomen and pelvis. Moderate stool retention throughout the colon. The appendix is normal. The osseous structures are within normal limits. IMPRESSION: Mild fluid retention pattern is seen as detailed. Moderate constipation. A limited non-contrast examination was performed as detailed. Conclusions/Impression: ESRD -HD TIW Hyperkalemia -HD TIW HTN with CKD/ CHF -Continue Coreg, Ramipril and Nifedipine Diastolic CHF, A/C -HD with UF -Low sodium diet Anemia in CKD -Monitor H&H CKD MBD -Continue Vitamin D Abdominal pain Slow transit constipation -Continue Colace Case reviewed with Dr. Neil
[2021-08-26] MEDS ORDERED: CEFEPIME 1 GM in NA CHLORIDE 0.9% 100 ML IV SCH (17:00)
== END 2021-08-25 15:40 | disposition home or self-care (01) | DRG 189 ==
LOC: ER 09:53 → ERHOLD 12:10 → OBSVTOIN 12:10 → INTOOBSV 12:10 → 4TH 19:33 → OBSVTOIN 08-23 07:56
PROVIDERS: ADMIT Hospitalist; ATTEND Hospitalist
PROC: 5A1D70Z Performance of Urinary Filtration, Intermittent, Less than 6 Hours Per Day (ICD-10-PCS; principal; 2021-08-23)
DX: J81.0 Acute pulmonary edema (principal); N18.6 End stage renal disease; I13.2 Hypertensive heart and chronic kidney disease with heart failure and with stage 5 chronic kidney disease, or end stage renal disease; I16.1 Hypertensive emergency; I50.33 Acute on chronic diastolic (congestive) heart failure; D63.1 Anemia in chronic kidney disease; E87.5 Hyperkalemia; K59.01 Slow transit constipation; J45.909 Unspecified asthma, uncomplicated; M89.8X9 Other specified disorders of bone, unspecified site; F17.200 Nicotine dependence, unspecified, uncomplicated; Z79.899 Other long term (current) drug therapy; Z98.51 Tubal ligation status; Z91.15 Patient's noncompliance with renal dialysis; Z99.2 Dependence on renal dialysis; Z20.822 Contact with and (suspected) exposure to COVID-19
CPT/HCPCS: 0240U; 36415; 71045; 74018; 74176; 80048; 80053; 80076; 80202; 81003; 81025; 83605; 83690; 83735; 84145; 84484; 85025; 87040; 87070; 87086; 87088; 87205; 90935; 93005; 99285; J0360; J0692; J1170; J1644; J1720; J2270; J2405; J3370; J7030; J7050; Q5105

== ENCOUNTER 2021-09-17 18:18 | Emergency (ER) | payer OTHER ==
--- OUTSIDE RECORDS SUMMARY | 2021-09-17 18:23 | XMS REPORT | Continuity of Care Document ---
:1985 Author Organization [facility] t Address [address] [place] [address] Dr. Larson. [address] [place] [address] Care Team Providers Name Role Phone Pcp, Does Not Have A Primary Care Physician Josi Isaac Attending Clinician Unavailable Balbina Snell MD Attending Clinician Balbina SNELL Attending Clinician Unavailable Josi Ramachandran MD N Attending Clinician BUNNY BARRON Attending Clinician Unavailable Gino MILLER Attending Clinician Unavailable Jerrell Martinez RN Attending Clinician Unavailable Abigail Link Attending Clinician Unavailable Edu YORK Attending Clinician Unavailable Balbina Culp RPH Attending Clinician Unavailable Bunny Barron MD Attending Clinician Chito Jung MD Attending Clinician Maday Attending Clinician Unavailable Demetris Attending Clinician Unavailable Malinda Attending Clinician Unavailable Balta Attending Clinician Unavailable 1, Alannah Us Room Attending Clinician Unavailable Bay Attending Clinician Unavailable Physician, Primary or Family Admitting Clinician Unavailabl e Payers Payer Name Policy Type Policy Number Effective Date Expiration Date S [facility] MEDICARE A B [id number] 2020 00:00:00 MEDICAID [facility] [id number] 2020 00:00:00 Advance Directives Directive Decision Effective Termination Comments Source Date Date Healthcare Agents on N/A Univ ersity FileNameRelationshipHealthcare [facility] Agent Medical RelationshipCommunicationDebra Branch PipkinsMotherHealth Care [phone] (Mobile) Problems Condition Condition Condition Status Onset Resolution Last Treating Co mments Source Name Details Category Date Date Treatment Clinician Date S/P S/P Disease Active Univers 7-03 ity of section section 00:00: [place] [facility] Vaginal Vaginal Disease Active Univers candidiasi candidiasi 7-02 it y of s s 00:00: [place] [address] Medical Branch Morbid Morbid Disease Active Univers obesity obesity 6-30 ity of with body with body 00:[place] mass index mass index 00 Me dical of of Branch 40.0-49.9 40.0-49.9 Chronic Chronic Disease Active Univers hypertensi hypertensi 6-30 it y of on with on with 00:00: [place] superimpos superimpos 00 Me dical ed ed Branch pre-eclamp pre-eclamp lexie lexie Elevated Elevated Disease Active Unive rs blood blood 6-29 ity of pressure pressure 00:00: [place] complicati complicati 00 Me [...] , [place] antepartum antepartum 00 Vt dical Branch History of History of Disease Active U nivers 3 3 1-24 it y of sections sections 00:00: [place] 00 Medical Branch Sleep Sleep Disease Active Univers disorder disorder 1-24 ity of 00:00: [place] [address] Medical Branch Threatened Threatened Disease Active U nivers miscarriag miscarriag 1-24 it y of e e 00:00: [place] [address] Medical Branch History of History of Disease Active U nivers placenta placenta 7- ity of abruption [facility] Excessive Excessive Disease Active Uni vers weight weight 7-08 ity of gain gain 00:00: [place] during during 00 Medical , , Br anch third third trimester trimester H/O H/O Disease Active Univers maternal maternal 7- ity of blood blood 00:00: [place] transfusio transfusio 00 Vt dical n, n, Branch currently currently , , third third trimester trimester Disease Active Uni vers related related 6- ity of hip pain hip pain 00:00: [place] in second in second 00 Medi cinthia trimester, trimester, Br anch antepartum antepartum Uterine Uterine Disease Active Univers size-date size-date 6 ity of discrepanc discrepanc 00:[place], [place], 00 Medical antepartum antepartum Br anch , second , second trimester trimester Tooth Tooth Disease Active Univers abscess abscess 6-03 ity of 00:00: [place] 00 Medical Branch Immune to Immune to Disease Active Uni vers varicella varicella 6-03 ity of 00:00: [place] 00 Medical Branch Rubella Rubella Disease Active Univers immune immune 6-03 ity of 00:00: [place] [address] Medical Branch Shoulder Shoulder Disease Active Unive rs pain, pain, 3-28 ity of right right 00:00: [place] 00 Medical Branch History of History of Disease Active U nivers fracture fracture 3-21 ity of of of 00:00: [place] clavicle clavicle 00 Medica l Branch Previous Previous Disease Active Unive rs 3-04 ity of section section 00:00: [place] complicati complicati 00 Vt dical ng ng Branch History of History of Disease Active U nivers DIC DIC 3-04 ity of syndrome syndrome 00:00: [address] High-risk High-risk Disease Active Uni vers 5-29 ity of 00:00: [address] Allergies, Adverse Reactions, Alerts Allergy Allergy Status Severity Reaction(s) Onset Inactive Treating Comm ents Source Name Type Date Date Clinician No Known DA Active U [facility] 02-14 Clear Allergie 00:00: Alaotrre s [facility] No Known DA Active U [facility] 02-14 Clear Allergie 00:00: Alatorre s 00 [facility] hydrocod DA Active U 2013-06 [facility] one Clear 00:00: [place] [facility] hydrocod DA Active U CHEST PAINS 2013-06 [facility] one Clear 00:00: [place] [facility] NO KNOWN Allergy Active [facility] ALLERGIE S NO KNOWN Drug Active Univers ALLERGIE Class ity of S [facility] Family History Family Member Diagnosis Comments Start Date Stop Date Source Natural brother No Known Problem [facility] Maternal uncle Kidney disease [facility] Natural mother Heart defect [facility] Natural sister No Known Problem [facility] Social History Social Habit Start Date Stop Date Quantity Comments Source History of Cigarette Smoker [facility] tobacco use [facility] Alcohol Comment 2020-10-07 2020-10-07 1 glass of wine [facility] 00:00:00 00:00:00 [facility] Alcohol intake 2020-09-03 2020-09-03 0 /d [facility] 00:00:00 00:00:00 [facility] Tobacco use and 2017-11-18 2017-11-18 Never used Universit y of exposure 00:00:00 00:00:00 [facility] Tobacco Comment 2013-11-08 2013-11-08 smokes one Universit y of 00:00:00 00:00:00 cigarette once [place] Medi cinthia per week Branch Sex [birth year] At [birth year] Universit y of 00:00:00 00:00:00 [facility] Smoking Status Start Date Stop Date Source Former smoker 2017-11-18 00:00:00 2017-11-18 00:00:00 [facility] Medications Ordered Filled Start Stop Current Ordering Indication Dosage Frequency Signature Comments Components Source Medication Medication Date Date Medication? Clinician (SIG) Name Name stephaniemer Yes 1600mg Take 1,[address] ([place]) [...] times Center tablet daily. NIFEdipine Yes 30mg Q.[id number] Take [address] (PROCARDIA) 4-27 [id number] by mouth [facility] - 10 MG [...] as needed for Pain. doxazosin Yes 8mg Q.[id number] Take [address] (CARDURA) 8 4-27 [id number] by mouth [facility] - MG tablet 12:13: 3D (three) Medic al 58 times Center daily . cholecalcif Yes 5000U QD Take 5,[address] [place], 4-27 Units by [facility] - vitamin D3, 12:13: mouth Medic al 125 mcg 58 daily. Center (5,000 unit) Tab hydrALAZINE 0 1- No 10mg Q.[id number] Take [address] (APRESOLINE 4-27 04-27 [id number] by mouth 3 [facility] - ) 10 [...] needed for Pain (scale 4-6) (for cough). HYDROcodone 2018-0 Yes 1{tbl} Take 1 Un [...] mouth [place] 00 daily. Medical Branch ferrous 0 Yes 325mg Take 1 Univers sulfate 325 7-03 tablet by ity of mg (65 mg 00:00: mouth 2 [place] iron) 00 (two) Medical tablet times Branch daily. SELECT-OB + Yes TAKE 1 Univ ers [...] Status Comments Sour e Immunization Name Name [facility] 2017-12-06 Completed [facility] 00:00:[address] [facility] 2017-12-06 Completed [facility] 00:00:[address] [facility] 2017-12-06 Completed [facility] 00:00:00 [facility] TD 2015-12-12 Completed University of 00:00:00 [facility] TDAP 2015-12-12 Completed University of 00:00:[address] [facility] 2015-12-12 Completed [facility] 00:00:00 [facility] Vital Signs Vital Name Observation Time Observation Value Comments Source HEIGHT 2020-10-07 11:13:00 159.2 cm WEIGHT 2020-10-07 11:13:00 66.225 kg HEIGHT 2020-10-07 11:13:00 159.2 cm WEIGHT 2020-10-07 11:13:00 66.225 kg Systolic blood 2020-10-07 11:13:00 202 mm[Hg] [facility] Diastolic blood 2020-10-07 11:13:00 133 mm[Hg] [facility] S t [facility] Heart rate 2020-10-07 11:13:00 73 /min [facility] Body temperature 2020-10-07 11:13:00 36.61 Lois [facility] Respiratory rate 2020-10-07 11:13:00 20 /min [facility] Body height 2020-10-07 11:13:00 159.2 cm [facility] Body weight 2020-10-07 11:13:00 66.225 kg [facility] BMI 2020-10-07 11:13:00 26.13 kg/m2 [facility] Procedures Procedure Date / Time Performing Clinician Source Performed URINE CULTURE 2020-10-07 10:08:00 Denise Barronamidipagideon [facility] URINALYSIS W/ MICROSCOPIC 2020-10-07 10:08:[address] [facility] HEMOGLOBIN A1C 2020-10-07 10:07:00 [facility] CBC W/PLT COUNT & AUTO 2020-10-07 10:07:00 Noah Barron C [facility] DIFFERENTIAL [facility] CYTOMEGALOVIRUS ANTIBODY, 2020-10-07 10:07:00 Denise Barronamidipat i [facility] IGG [facility] CYTOMEGALOVIRUS ANTIBODY, 2020-10-07 10:07:00 Anderson, Deniseamidipat i [facility] COMPREHENSIVE METABOLIC 2020-10-07 10:07:00 Anderson, Deniseamidipati [facility] PANEL [facility] EBV ANTIBODY, IGM 2020-10-07 10:07:00 Anderson, [facility] GAMMA GLUTAMYL TRANSFERASE 2020-10-07 10:07:00 Anderson Bhamidipa ti [facility] (GGT) [facility] HEPATITIS B SURFACE ANTIBODY 2020-10-07 10:07:00 Anderson, Bhamidi lev [facility] HEPATITIS B SURFACE ANTIGEN 2020-10-07 10:07:00 Anderson, Bhamidip ati [facility] HEPATITIS B CORE ANTIBODY, 2020-10-07 10:07:00 Anderson, Bhamidipa ti [facility] HEPATITIS C ANTIBODY 2020-10-07 10:07:00 Anderson, Bhamidipati [facility] HC LAB HIV-1 AG W/HIV-1&2 AB 2020-10-07 10:07:00 Anderson, [facility] PHOSPHORUS 2020-10-07 10:07:00 Anderson, [facility] PTH, INTACT 2020-10-07 10:07:00 Anderson, [facility] PT/APTT 2020-10-07 10:07:00 Anderson, [facility] PROTHROMBIN TIME/INR 2020-10-07 10:07:00 Anderson, [facility] RPR 2020-10-07 10:07:00 Anderson, [facility] URIC ACID 2020-10-07 10:07:00 Anderson, [facility] VARICELLA ZOSTER ANTIBODY, 2020-10-07 10:07:00 Anderson, [facility] - IGG [facility] ANTITHROMBIN III 2020-10-07 10:07:00 Anderson, [facility] FACTOR 5 LEIDEN PCR 2020-10-07 10:07:00 Anderson, [facility] (THROMBOTIC RISK) [facility] HC LAB PROTHROMBIN FACTOR II 2020-10-07 10:07:00 Anderson, [facility] PROTEIN C ACTIVITY 2020-10-07 10:07:00 Anderson, [facility] PROTEIN S ACTIVITY 2020-10-07 10:07:00 Anderson, [facility] PHOSPHATIDYLSERINE ABS (IGG, 2020-10-07 10:07:00 Anderson, [facility] - IGM) [facility] DIRECT AHG (JOHANN)/DIRECT 2020-10-07 10:07:00 Anderson, [facility] - OTTO [facility] ABORH, MANUAL 2020-10-07 10:07:00 Anderson, Bhamidipati [facility] US PELVIS WITH DOPPLER 2020-09-25 12:09:00 Anderson, Bhamidipati C [facility] US ABDOMEN COMPLETE 2020-09-25 11:38:00 Anderson, Bhamidipati [facility] XR CHEST 2 VIEWS 2020-09-25 10:24:00 Anderson, Bhamidipati [facility] 2D ECHO W/ DOPPLER 2020-09-25 08:44:17 Anderson, amidipati [facility] (CW/PW/COLOR) [facility] ECG 12-LEAD 2020-09-25 08:24:21 Anderson, Bhamidipati [facility] T SPOT TB 2020-09-25 08:06:00 Anderson, amidipati [facility] FLOW PRA CLASS I WITH REFLEX 2020-09-25 08:05:00 Anderson, Bhamidi lev [facility] - TO ANTIBODY SPECIFICITY [facility] FLOW PRA CLASS II WITH 2020-09-25 08:05:00 Anderson, Bhamidipati C HI [facility] - REFLEX [facility] HLA TYPING CI 2020-09-25 08:05:00 Anderson, Bhamidipati [facility] HLA TYPING CII 2020-09-25 08:05:00 Anderson, amidipati [facility] LIPID PANEL 2020-09-25 08:05:00 Anderson, [facility] BLOOD TYPING, AUTOMATED 2020-09-25 08:05:00 [facility] Planned Activity Planned Date Details Comments Source Future Scheduled 2027-12-07 DTAP/TDAP/TD VACCINES [facility] 00:00[facility]00 (4 - Td) [code = Medical Tasha ter DTAP/TDAP/TD VACCINES (4 - Td)] Future Scheduled 2023-09-[address] [facility] - Test 00:00:00 (procedure) [code = [facility] [id number]] Future Scheduled 2021-02-11 INFLUENZA VACCINE (#1) [facility] Test 00:00:00 [code = INFLUENZA Medical Ce nter VACCINE (#1)] Future Scheduled 2020-06-[address] [facility] - Test 00:00:00 (12+) [code = [facility] DEPRESSION SCREENING (12+)] Future Scheduled 2020-02-12 Medicare IPPE (WELCOME [facility] - Test 00:00:00 TO MEDICARE) [code = [facility] Medicare IPPE (WELCOME TO MEDICARE)] Future Scheduled [address] [facility] - Test 00:00:00 malignant neoplasm of [facility] cervix (procedure) [code = 011439129] Future Scheduled 1998 COVID-19 VACCINE (1) [facility] [...] Type Clinicians Facility Department ID 2020-06-03 Inpatient Poncho, Bill HCACL DAYS [id number] [facility] 12:00:00 [id number] [facility] 2020-03-25 Inpatient EL Poncho, Bill HCAC[facility] DAYS [id number] [facility] 07:00:00 [id number] [facility] 2020-03-04 Inpatient Isaac, Bill [facility] DAYS [id number] [facility] 10:00:00 [id number] [facility] 2020-02-19 Inpatient Isaac, Bill [facility]AC[facility] DAYS [id number] [facility] 09:00:00 [facility] 2020-02-14 Inpatient Poncho, Bill HCAC[facility] DAYS [id number] [facility] 08:30:00 [facility] 2021-09-08 2021-09-08 Telephone [facility] [id number] Univers 00:00:00 00:00:00 Mohsen Mortensen MULTISPEC [id number] ity of IALTY [id number] [facility] [place] [id number] [facility] [address] [place] [facility] 2021-08-26 2021-08-26 Outpatient R [id number] Univers 09:00:00 09:00:00 CLEARY [id number] ity o f [facility] 2021-08-26 2021-08-26 Outpatient R [id number] Univers 09:00:00 09:00:00 CLEARY ity o [facility] 2021-08-24 2021-08-24 [facility] [id number] Univers 00:00:00 00:00:00 Bee covarrubias MULTISPEC [id number] ity of IALTY [id number] [facility] [place] [id number] [address] [facility] 2021-07-14 2021-07-14 [address]840.114 [id number] Univers 00:00:00 00:00:00 Mohsen Mortensen MULTISPEC [id number] ity of IALTY [id number] [facility] [place] [id number] [address] [facility] 2020-12-23 2020-12-23 Outpatient ANDERSON, [facility] [id number] [facility] 00:00:00 00:00:00 BHAMIDIPATI 2020-12-23 2020-12-23 Outpatient EL [facility] SLE [id number] [facility] 00:00:00 00:00:00 2020-12-23 2020-12-23 Outpatient EL [facility] [id number] [facility] 00:00:00 00:00:00 2020-11-14 2020-11-[address] [facility] [id number] [facility] 00:00:00 00:00:00 [facility] 2020-11-14 2020-11-[address] [facility] [id number] 00:00:00 00:00:00 Work [facility] 2020-11-13 2020-11-13 Case Elizabeth [facility] [id number] 00:00:00 00:00:00 Management Bee covarrubias MULTISPEC [id number] IALTY [id number] [place] [id number] AND GARCÍA [facility] 2020-11-06 2020-11-06 [facility] [id number] 00:00:00 00:00:00 Management Bee covarrubias MULTISPEC [id number] IALTY [id number] [place] [id number] AND GARCÍA [facility] 2020-11-04 2020-11-[address] [facility] [id number] 00:00[facility]00 00:00:00 [facility] 2020-10-31 2020-10-[address] [facility] [id number] 00:00:00 00:00:00 [facility] 2020-10-22 2020-10-[address] [facility] [id number] 00:00:00 00:00:00 ion [facility] 2020-10-16 2020-10-[address] [facility] [id number] 00:00:00 00:00:00 Ruthann Abigail [facility] 2020-10-16 2020-10-[address] [facility] [id number] 00:00:00 00:00:00 Only [facility] 2020-10-14 2020-10-[address] [facility] [id number] 00:00:00 00:00:00 [facility] 2020-10-14 2020-10-[address] [facility] [id number] 00:00:00 00:00:00 ion [facility] 2020-10-14 2020-10-[address] [facility] [id number] 00:00:00 00:00:00 [facility] 2020-10-12 2020-10-[address] [facility] [id number] 00:00:00 00:00:00 ion Laura Mortensen [facility] 2020-10-07 2020-10-07 Evaluation Denise Barronamidipati Bunny [facility] [id number] [facility] 09:54:41 10:24:41 Jordana Jung [facility] 2020-10-07 2020-10-07 Evaluation AndersonDenise whittakeramidipati Bunny [facility] [id number] [facility] 09:53:43 10:23:43 Maday Rena [facility] 2020-10-07 2020-10-[address] [facility] [id number] 09:53:01 10:08:01 Only [facility] 2020-10-07 2020-10-07 Outpatient EL [facility] [id number] [facility] 00:00:00 00:00:00 2020-10-07 2020-10-07 Outpatient SLEH SLEH [id number] [facility] 00:00:00 00:00:00 2020-10-07 2020-10-07 Outpatient SLEH SLEH [id number] [facility] 00:00:00 00:00:00 2020-10-07 2020-10-[address] [facility] [id number] [facility] 00:00:00 [facility] 2020-10-06 2020-10-[address] [facility] [id number] 00:00:00 00:00:00 [facility] 2020-10-06 2020-10-[address] [facility] [id number] 00:00:00 00:00:00 [facility] 2020-10-06 2020-10-[address] [facility] [id number] 00:00:00 00:00:00 ion [facility] 2020-10-02 2020-10-02 Outpatient SLEH SLEH [id number] [facility] 00:00:00 00:00:00 2020-10-02 2020-10-02 Outpatient EL [facility]H [id number] [facility] 00:00:00 00:00:00 2020-10-02 2020-10-02 Outpatient SLEH SLEH [id number] [facility] 00:00:00 00:00:00 2020-10-02 2020-10-[address] [facility] [id number] 00:[facility]00 00:00:00 [facility] 2020-10-02 2020-10-[address] [facility] [id number] 00:00:00 00:00:00 [facility] 2020-09-25 2020-09-25 [facility] [place] [id number] [facility] 10:07:04 23:59:00 [facility] 2020-09-25 2020-09-25 [facility] [place] [id number] [facility] 10:06:56 10:06:56 [facility] 2020-09-25 2020-09-25 [facility] [id number] 10:06:49 10:06:[address] [facility] 2020-09-25 2020-09-25 [facility], [facility] [id number] 08:10:48 10:05:[address] [facility] 2020-09-25 2020-09-25 [facility], [facility] [id number] 08:00:00 08:09:[address] [facility] 2020-09-25 2020-09-25 Outpatient ANDERSON, SLEH SLE [id number] [facility] 00:00:00 00:00:00 [facility] 2020-09-25 2020-09-25 Outpatient EL SLE[facility] SLE [id number] [facility] 00:00:00 00:00:00 2020-09-25 2020-09-25 Outpatient ANDERSON, SLEH SLEH [id number] [facility] 00:00:00 00:00:00 [facility] 2020-09-25 2020-09-25 Outpatient ANDERSON, [facility] SLE [id number] [facility] 00:00:00 00:00:00 [facility] 2020-09-25 2020-09-25 Outpatient ANDERSON, SLEH SLEH [id number] [facility] 00:00:00 00:00:00 [facility] 2020-09-25 2020-09-25 Outpatient ANDERSON, SLEH SLEH [id number] [facility] 00:00:00 00:00:00 [facility] 2020-09-03 2020-09-03 Telephone [facility] [id number] 00:[facility]00 00:00:00 [facility] 2020-09-03 2020-09-03 Telephone [facility] [id number] 00:00:00 00:00:00 Bee covarrubias MULTISPEC [id number] IALTY [id number] CENTER [id number] [facility] 2020-06-26 2020-06-[address] [facility] [id number] 00:00:00 00:00:00 ion [facility] 2020-06-26 2020-06-26 Abstract Juan, [facility] [id number] 00:00:00 00:00:00 [facility] 2020-06-23 2020-06-23 [facility] [id number] 00:00:00 00:00:00 [facility] 2020-06-23 2020-06-23 [facility] [id number] 00:00:00 00:00:00 [facility] 2020-06-17 2020-06-17 [facility] [id number] 00:00:00 00:00:00 [facility] 2020-06-17 2020-06-[address] [facility] [id number] 00:00:00 00:00:00 [facility] 2020-06-17 2020-06-17 [facility] [id number] 00:00:00 00:00:00 [facility] 2020-06-16 2020-06-16 [facility] [id number] 00:00:00 00:00:00 [facility] 2020-06-16 2020-06-16 Telephone [facility] [id number] 00:00:00 00:00:00 [facility] Results Test Description Test Time [...] (IGM) (test code = syndrome (APS) lita [id number]) clinical-pathol ogic correlation that includesa clinical event (e.g. thrombosi s, pregnancyloss, thrombocytopeni a) and persistent positiveantipho spholipid antibodies (IgM or IgG JENSEN>40 MPL/GPL,IgM or IgG anti-b2GPI antibodies ora lupus anticoagulant). International consensusguidel radha for APS suggest waiting at least 12weeks before retestin g to confirm antibodypersist ence. The [facility] Lupus [facility] onalCollaborating Clinics immunologicalcl assification criteria for [facility] lupuserythemato vishal (SLE) include testing [...] (test code = RACQUEL) Performing Lab [employer] [facility] [address] [place] [address] Daija Green MD, PhD, KRISHNA [facility] HospitalProthrombin Gene Kzqlzuey1564-01-20 16:22:00 Test Item Value Reference Interpretation Comments Range PROTHROMBIN GENE NEGATIVE RESULT: G20 210A VARIANT NOT ANALYSIS (test DETECTED code = 4153596) Interpretation See Below INTERPRETATIO N: This (test code = individual is n egative 3775144) (normal) for e [id number] in the Prothrombin/Fac tor II gene. Increased risk ofthrombophilia can be caused by a morgan iety of genetic and non-geneticfact ors not screened for by this assay. Laboratory test ing supervised and results monitored by Carol Steinberg,Ph.D., D ABG, [facility]. The O38374H mut ation [AZ167210.1: g. 03658E>A (c.*97G>A)] in theProthrombin/ Factor II gene is the sec ond most common inherite d riskfactor for thrombosis occurring in approximately 2 % of Caucasians.Pres ence of the mutation is ass ociated with an elevation of prothrombin levels to about 30% above normal in heter ozygotes and to70% above nor mal in homozygotes. Pr othrombin (K93543O) mutat ions are detected by amp lification [...] local Ques t Diagnostics'gen etic counselor or [facility] [phone] ([phone]) forassistance with interpreta tion of these results. This t est was developed and i ts analytical performancechar acteristics have been deter mined by [employer] [facility] [place]. It has not been cleared or appr elva bythe FDA. This assay has been validated pursu ant to the CLIAregulations and is used for clinical pu rposes. RACQUEL (test code = Performing Lab RACQUEL) EZ [employer] [facility] [address] [place] [address] Daija Green MD, PhD, KRISHNA [facility] HospitalFactor 5 Leiden PCR (thrombotic risk)2020-10-11 13:14:00 Test Item Value Reference Interpretation Comments Range Factor V Leiden NEGATIVE FACTOR V LEI DEN (R506Q) Mutation (test VARIANT NOT D ETECTED code = 2648144) Interpretation See Below INTERPRETATIO N: This (test code = individual is n egative 9517891) (normal) for th e Factor VLeiden (R506Q) variant in the Factor 5 ge ne. Increased risk ofthrombop hilia can be caused by a morgan iety of genetic and non-geneticfact ors not screened for by this assay. Laboratory test ing supervised and results monitored by Bonita Durán MD, PhD, FACMG, CGM BS. MUTATION ANALYSIS:The Fa ctor V [...] plea se contact your local Ques t [employer]comgene tic counselor or call [employer] ([phone]) for assistancewith interpretation of these results. This t est was developed and i ts analytical performancechar acteristics have been deter mined by [employer] [facility] [place]. It has not been cleared or appr elva bythe FDA. This assay has been validated pursu ant to the CLIAregulations and is used for clinical pu rposes. RACQUEL (test code = Performing Lab RACQUEL) [facility] [address] [place] [address] Daija Green MD, PhD, KRISHNA [facility] HospitalProtein S [id number] 03:55:00 Test Item Value Reference Range Interpretation Comments Protein S 95 See_Comment Decreased leve ls of Functional (test Protein S a ctivity code = 1701631) may be found in patients withhereditary deficiency, war farin therapy, vitami n k deficiency, dominick er disease,DIC, or recent thrombos is as well as after surgery. In addition, it ma y bephysiologic i n . An elevated Protei n S activity is not clinicallysigni fican t. Only deficie ncies are associated with an increased thromboticrisk. [Automated mess age] The system [employer] generated this result transmit liya reference range : 60 - 140 % normal. The reference range was not used to interpret this result as normal/abnormal . RACQUEL (test code = Performing Lab RACQUEL) EZ [employer] [address] [place] [address] Daija Green MD, PhD, KRISHNA [facility] HospitalUrine [id number] 07:38:00 Test Item Value Reference Range Interpretation Comments Result (test code = See comment 6463-4) RACQUEL (test code = >100,000 col/mL enteric RACQUEL) organisms of >2 types. No further workup performed. Multiple organisms suggestive of colonization or contamination. Repeat collection recommended.40-49,000 col/mL skin beth [facility] HospitalURINE [id number] 07:38:00 Test Item Value Reference Range Interpretation Comments CULTURE (BEAKER) (test code = See comment 1095) >100,000 col/mL enteric organisms of >2 types. No further workup performed. Multiple organismssuggestive of colonization or contamination. Repeat collection recommended.40-49,000 col/mL skin [id number] 14:26:00 Test Item Value Reference Range Interpretation Comments RPR (test code = 42705-9) Nonreactive Nonreactive Lab Interpretation (test code = Normal 38108-7) [facility] HospitalRPR2021-04-28 14:26:00 Test Item Value Reference Range Interpretation Comments RPR SCREEN (BEAKER) (test code = Nonreactive Nonreactive 420) Varicella Zoster Antibody, [id number] 14:12:00 Test Item Value Reference Range Interpretation Comments Varicella IgG (test 2.8 code = 39781-6) RACQUEL (test code = RACQUEL) VARICELLA ZOSTER RESULT INTERPRETATIONS: <=0.8 Al Nonreactive: Presumed non-immune to VZV 0.9-1.0 Al Equivocal >=1.1 Al Reactive: Presumed immune to VZV [facility] HospitalVARICELLA ZOSTER ANTIBODY, [id number] 14:12:00 Test Item Value Reference Range Interpretation Comments VARICELLA ZOSTER IGG (AL) (BEAKER) 2.8 (test code = 3197) VARICELLA ZOSTER RESULT INTERPRETATIONS: <=0.8 Al Nonreactive: Presumed non-immune to VZV 0.9-1.0 Al Equivocal >=1.1 Al Reactive: Presumed immune to VZVCytomegalovirus antibody, [id number] 13:54:00 Test Item Value Reference Range Interpretation Comments CYTOMEGALOVIRUS, IGG Positive Negative, A (test code = 3429) Equivocal RACQUEL (test code = RACQUEL) CMV IgG Result Interpretation: </= 0.8 Al Negative 0.9-1.0 Al Equivocal >/=1.1 Al Positive Lab Interpretation (test Abnormal code = 78171-4) [facility] HospitalEBV-VCA antibody, [id number] 13:54:00 Test Item Value Reference Range Interpretation Comments ALETA BOWLING VIRAL Positive Negative, A CAPSID ANTIGEN IGG (test Equivocal code = 3415) RACQUEL (test code = RACQUEL) Aleta Bowling Viral Capsid Antigen IgG Result Interpretation: </= 0.8 Al Negative 0.9-1.0 Al Equivocal >/= 1.1 Al Positive Lab Interpretation (test Abnormal code = 46063-6) [facility] HospitalEBV-VCA antibody, [id number] 13:54:00 Test Item Value Reference Range Interpretation Comments ALETA BOWLING VIRAL Negative Negative, CAPSID ANTIGEN IGM (test Equivocal code = 3418) RACQUEL (test code = RACQUEL) Aleta Bowling Viral Capsid Antigen IgM Result Interpretation: </= 0.8 Al Negative 0.9-1.0 Al Equivocal >/= 1.1 Al Positive Lab Interpretation (test Normal code = 93885-4) [facility] HospitalCytomegalovirus antibody, [id number] 13:54:00 Test Item Value Reference Range Interpretation Comments CMV IGM (test code = Negative Negative, 3437) Equivocal RACQUEL (test code = RACQUEL) CMV IgM Result Interpretation: </= 0.8 Al Negative 0.9-1.0 Al Equivocal >/= 1.1 Al Positive Lab Interpretation (test Normal code = 94614-8) [facility] HospitalCYTOMEGALOVIRUS ANTIBODY, [id number] 13:54:00 Test Item Value Reference Range Interpretation Comments CYTOMEGALOVIRUS, IGG (BEAKER) Positive Negative, Equivocal A (test code = 3429) CMV IgG Result Interpretation: </= 0.8 Al Negative 0.9-1.0 Al Equivocal >/=1.1 Al PositiveCYTOMEGALOVIRUS ANTIBODY, [id number] 13:54:00 Test Item Value Reference Range Interpretation Comments CYTOMEGALOVIRUS IGM ANTIBODY Negative Negative, Equivocal (BEAKER) (test code = 3437) CMV IgM Result Interpretation: </= 0.8 Al Negative 0.9-1.0 Al Equivocal >/= 1.1 Al PositiveEBV ANTIBODY, [id number] 13:54:00 Test Item Value Reference Range Interpretation [...] Activity (test code = 108.0 % 70-130 82497-7) Lab Interpretation (test code = Normal 80515-9) [facility] HospitalPROTEIN C [id number] 10:42:00 Test Item Value Reference Range Interpretation Comments PROTEIN C ACTIVITY (BEAKER) (test 108.0 % 70.0-130.0 code = 582) Hemoglobin [id number] 16:04:00 Test Item Value Reference Range Interpretation Comments Hemoglobin A1C (test code = 4548-4) 4.6 % 4.3-6.1 Lab Interpretation (test code = Normal 35287-9) [facility] HospitalHEMOGLOBIN [id number] 16:04:00 Test Item Value Reference Range Interpretation Comments HEMOGLOBIN A1C (BEAKER) (test code = 4.6 % 4.3-6.1 368) Hepatitis B surface [id number] 14:44:00 Test Item Value Reference Interpretation Comments Range Hep B S Ab (test 1462.6 See_Comment H [Automated code = 09908-0) message] The system which generated this result transmitted reference range : <8.0 mIU/mL. Th e reference range was not used to interpret this result as normal/abnormal . RACQUEL (test code = Senior Stack Engineer ID - RACQUEL) ROSIANGOperator ID - ROSIANG Lab Interpretation Abnormal (test code = 89189-9) [facility] HospitalHEPATITIS B SURFACE [id number] 14:44:00 Test Item Value Reference Range Interpretation Comments HEPATITIS B SURFACE ANTIBODY 1462.6 mIU/mL <8.0 H (BEAKER) (test code = 647) Senior Stack Engineer ID - ROSIANGOperator ID - NOELGUrinalysis, [id number] 14:42:00 Test Item Value Reference Range Interpretation Comments Color, UA (test code Yellow = 5778-6) Clarity, UA (test Clear code = 5767-9) Specific [place], UA 1.012 1.001-1.035 (test code = 5811-5) pH, UA (test code = 8.0 5.0-8.0 5803-2) Protein, UA (test 70 mg/dL Negative A code = 01262-6) Glucose, UA (test Negative Negative code = 365) Ketones, UA (test Negative Negative code = 2514-8) Bilirubin, UA (test Negative Negative code = 68476-3) Blood, UA (test code Negative Negative = 17228-8) Nitrite, UA (test Negative Negative code = 5802-4) Leukocytes, UA (test Negative Negative code = 5799-2) Urobilinogen, UA 0.2 mg/dL 0.2-1 (test code = 04469-2) RBC, UA (test code = <1 See_Comment [Autom ated 94311-7) message] The system which generated this result [...] 4 See_Comment [Automate d (test code = 19801-8) messag e] The system which generated this result transmit liya reference range : /HPF. The reference range was not used to interpret this result as normal/abnormal . Hyaline Casts, UA 1 See_Comment [Automate d (test code = 08139-6) messag e] The system which generated this result transmit liya reference range : /LPF. The reference range was not used to interpret this result as normal/abnormal . Specimen Source (test code = 2795) RACQUEL (test code = RACQUEL) Senior Stack Engineer ID - [auto]Senior Stack Engineer ID - tech Lab Interpretation Abnormal (test code = 94726-0) [facility] HospitalURINALYSIS W/ [id number] 14:42:00 Test Item Value Reference Range Interpretation [...] /LPF 514) SOURCE(BEAKER) (test code = 2795) Senior Stack Engineer ID - [auto]Senior Stack Engineer ID - techHepatitis B surface [id number] 14:30:00 Test Item Value Reference Range Interpretation Comments HBsAg Screen (test code Nonreactive Nonreactive = 5195-3) RACQUEL (test code = RACQUEL) Specimen is considered negative for HBsAg. Lab Interpretation (test Normal code = 77397-9) [facility] HospitalHepatitis B core antibody, [id number] 14:30:00 Test Item Value Reference Range Interpretation Comments Hep B C IgM (test code = Nonreactive Nonreactive 57462-4) RACQUEL (test code = RACQUEL) Senior Stack Engineer ID - BJ Lab Interpretation (test Normal code = 03175-6) [facility] HospitalHepatitis C [id number] 14:30:00 Test Item Value Reference Range Interpretation Comments Hepatitis C Ab (test Nonreactive Nonreactive code = 12562-9) RACQUEL (test code = RACQUEL) Senior Stack Engineer ID - BJ Lab Interpretation (test Normal code = 09886-6) [facility] HospitalHIV-1 Antigen with HIV-1/2 [id number] 14:30:00 Test Item Value Reference Range Interpretation Comments HIV-1 Antigen with HIV Nonreactive Nonreactive 1&2 Antibody (test code = 06621-8) RACQUEL (test code = RACQUEL) Senior Stack Engineer ID - BJ Lab Interpretation (test Normal code = 33792-4) [facility] HospitalHEPATITIS B SURFACE [id number] 14:30:00 Test Item Value Reference Range Interpretation Comments HEPATITIS B SURFACE ANTIGEN (2) Nonreactive Nonreactive (BEAKER) (test code = 2585) Specimen is considered negative for HBsAg.HEPATITIS B CORE ANTIBODY, IGM 2020-10-07 14:30:00 Test Item Value Reference Range Interpretation Comments HEPATITIS B CORE IGM ANTIBODY Nonreactive Nonreactive (BEAKER) (test code = 645) Senior Stack Engineer ID - NOELGHEPATITIS C [id number] 14:30:00 Test Item Value Reference Range Interpretation Comments HEPATITIS C ANTIBODY (BEAKER) Nonreactive Nonreactive (test code = 367) Senior Stack Engineer ID - WILMERIV-1 ANTIGEN WITH HIV-1/2 [id number] 14:30:00 Test Item Value Reference Range Interpretation Comments HIV-1 ANTIGEN WITH HIV 1\T\2 Nonreactive Nonreactive ANTIBODY (2) (BEAKER) (test code = 2586) Senior Stack Engineer ID - NOELGAntithrombin [id number] 14:04:00 Test Item Value Reference Range Interpretation Comments Antithrombin III (test code = 48858-6) 94.0 % 80-120 Lab Interpretation (test code = Normal 19910-2) [facility] HospitalANTITHROMBIN [id number] 14:04:00 Test Item Value Reference Range Interpretation Comments ANTITHROMBIN III ACTIVITY (BEAKER) 94.0 % 80.0-120.0 (test code = 711) Direct AHG (JOHANN)/Direct [id number] 13:47:00 Test Item Value Reference Range Interpretation Comments Direct AHG-IGG (test code = 1006-6) NEGATIVE Direct AHG-C3B, C3D (test code = NEGATVIE 1003-3) [facility] HospitalComprehensive metabolic [id number] 13:42:00 Test Item Value Reference Range Interpretation Comments Protein, Total (test 6.9 See_Comment [Autom ated code = 2885-2) message] The system which generated this result transmit liya reference range : 6.0 - 8.3 gm/dL . The reference range was not u sed to interpret th is result as normal/abnormal . Albumin (test code = 3.9 g/dL 3.5-5 20547-0) Alkaline Phosphatase 65 U/L 40-150 (test code = 6768-6) Total Bilirubin (test 0.3 mg/dL 0.2-1.2 code = 1975-2) Sodium (test code = 140 meq/L 558-778 3124-2) Potassium (test code 4.2 meq/L 3.5-5.1 = 2823-3) Chloride (test code = 102 meq/L 98-107 2075-0) CO2 (test code = 23 meq/L 22-29 2028-9) BUN (test code = 39 mg/dL 7-21 H 3094-0) Creatinine (test code 9.59 mg/dL 0.57-1.25 H = 2160-0) Glucose (test code = 91 mg/dL 70-105 2345-7) Calcium (test code = 8.5 mg/dL 8.4-10.2 14238-3) AST (test code = 16 U/L 5-34 1920-8) ALT (test code = 11 U/L 6-55 1742-6) EGFR (test code = 6 mL/min/1.73 [place] [address]-1) NOT ACCURATE CREATININE CLEARANCE IN PREDICTING GLOMERULAR FILTRATION RATE . ESTIMATED GFR I S NOT APPLICABLE FOR DIALYSIS PATIEN TS. RACQUEL (test code = RACQUEL) Senior Stack Engineer ID - ROSIANG Lab Interpretation Abnormal (test code = 71074-3) [facility] HospitalCOMPREHENSIVE METABOLIC [id number] 13:42:00 Test Item Value Reference Range Interpretation [...] S NOT APPLICABLE FOR DIALYSIS PATIEN TS. Senior Stack Engineer ID - ROSIANGGamma Glutamyl Transferase (GGT)2020-10-07 13:37:00 Test Item Value Reference Range Interpretation Comments GGT (test code = 2324-2) 21 U/L 9-64 RACQUEL (test code = RACQUEL) Senior Stack Engineer ID - ROSIANG Lab Interpretation (test Normal code = 20255-3) [facility] HospitalPhosphorus2021-04-27 13:37:00 Test Item Value Reference Range Interpretation Comments Phosphorus (test code = 5.7 mg/dL 2.3-4.7 H 2777-1) RACQUEL (test code = RACQUEL) Senior Stack Engineer ID - NOELG Lab Interpretation (test Abnormal code = 23577-3) [facility] HospitalUric [id number] 13:37:00 Test Item Value Reference Range Interpretation Comments Uric Acid (test code = 8.4 mg/dL 2.6-7.2 H 3084-1) RACQUEL (test code = RACQUEL) Senior Stack Engineer ID - NOELG Lab Interpretation (test Abnormal code = 49008-4) [facility] HospitalPHOSPHORUS2021-04-27 13:37:00 Test Item Value Reference Range Interpretation Comments PHOSPHORUS (BEAKER) (test code = 5.7 mg/dL 2.3-4.7 H 604) Senior Stack Engineer ID - NOELGURIC [id number] 13:37:00 Test Item Value Reference Range Interpretation Comments URIC ACID (BEAKER) (test code = 8.4 mg/dL 2.6-7.2 H 773) Senior Stack Engineer ID - NOELGGAMMA GLUTAMYL TRANSFERASE (GGT)2020-10-07 13:37:00 Test Item Value Reference Range Interpretation Comments GAMMA GLUTAMYL TRANSFERASE (BEAKER) 21 U/L 9-64 (test code = 364) Senior Stack Engineer ID - NOELGPTH, Edpzcn9445-04-87 13:36:00 Test Item Value Reference Range Interpretation Comments PTH (test code = 2731-8) 466.5 pg/mL 8.5-72.5 H RACQUEL (test code = RACQUEL) Senior Stack Engineer ID - BJ Lab Interpretation (test Abnormal code = 97247-1) [facility] HospitalPTH, [id number] 13:36:00 Test Item Value Reference Range Interpretation Comments PARATHYROID HORMONE INTACT 466.5 pg/mL 8.5-72.5 H (BEAKER) (test code = 577) Senior Stack Engineer ID - YOVANNYMARGIGPT/iNDZ4051-29-27 13:34:00 Test Item Value Reference Interpretation Comments Range Protime (test code = 13.9 See_Comment [Autom ated 7022-2) message] The system which generated this result [...] (test code = 37.1 See_Comment H [Automated 03844-0) message] The system which generated this result [...] valves. Lab Interpretation Abnormal (test code = 56738-6) [facility] HospitalPT/[id number] 13:34:00 Test Item Value Reference Range Interpretation [...] is2.5-3.5 for patients wiht mechanical heart valves.Prothrombin time/[id number] 13:33:00 Test Item Value Reference Interpretation Comments [...] valves. Lab Interpretation Normal (test code = 33970-7) [facility] HospitalABORH, [id number] 13:33:00 Test Item Value Reference Range Interpretation Comments ABO Grouping (test code = 2588) O Rh Factor (test code = 2589) POS [facility] HospitalPROTHROMBIN TIME/[id number] 13:33:00 Test Item Value Reference Range Interpretation Comments PROTIME (BEAKER) 13.9 seconds 11.9-14.2 (test code = 759) INR (BEAKER) (test 1.11 See_Comment [Automat ed message] code = 370) The system [employer] generated this result transmitted ref erence range: [...] heart valves.CBC with platelet count + automated [id number] 13:05:00 Test Item Value Reference Range Interpretation Comments WBC (test code = 6690-2) 6.4 See_Comment [A utomated message] The system [employer] generated this result transmitted ref erence range: 3.5 - 10 .5 K/L. The refe rence range was not u sed to interpret this result as normal/abnor mal. RBC (test code = 789-8) 2.95 See_Comment L [Au tomated message] The system [employer] generated this result transmitted ref erence range: 3.93 - 5 .22 M/L. The refe rence range was not u sed to interpret this result as normal/abnor mal. MCHC (test code = 786-4) 31.4 See_Comment L [A utomated message] The system [employer] generated this result transmitted ref erence range: [...] See_Comment [Aut omated message] 777-3) The system [employer] generated this result transmitted ref erence range: 150 - 45 0 K/CU MM. The referen ce range was not u sed to interpret this result as normal/abnor mal. MPV (test code = 9.7 fL 9.4-12.3 24070-8) nRBC (test code = 413) 0 See_Comment [Aut omated message] The system [employer] generated this result transmitted ref erence range: [...] See_Comment [Aut omated message] 670) The system [employer] generated this result transmitted ref erence range: 1.56 - 6 .13 K/L. The refe rence range was not u sed to interpret this result as normal/abnor mal. # Lymphs (test code = 1.43 See_Comment [Auto mated message] 414) The system [employer] generated this result transmitted ref erence range: 1.18 - 3 .74 K/L. The refe rence range was not u sed to interpret this result as normal/abnor mal. # Monos (test code = 0.48 See_Comment H [Autom ated message] 415) The system [employer] generated this result transmitted ref erence range: 0.24 - 0 .36 K/L. The refe rence range was not u sed to interpret this result as normal/abnor mal. # Eos (test code = 416) 0.28 See_Comment [Au tomated message] The system [employer] generated this result transmitted ref erence range: 0.04 - 0 .36 K/L. The refe rence range was not u sed to interpret this result as normal/abnor mal. # Baso (test code = 417) 0.04 See_Comment [A utomated message] The system [employer] generated this result transmitted ref erence range: 0.01 - 0 .08 K/L. The refe rence range was not u sed to interpret this result as normal/abnor mal. Immature 0 % 0-1 Granulocytes-Relative (test code = 2801) Lab Interpretation (test Abnormal code = 42528-2) [facility] W/PLT COUNT & AUTO [id number] 13:05:00 Test Item Value Reference Range Interpretation [...] (BEAKER) (test code = 2801) T SPOT [id number] 14:01:00 Test Item Value Reference Range Interpretation Comments T-SPOT TB (BEAKER) (test code = Negative 168) NEG CONTROL SPOT COUNT (BEAKER) 0 (test code = 1684) PANEL A SPOT (BEAKER) (test code = 0 1685) PANEL B SPOT (BEAKER) (test code = 0 1686) POS CONTROL SPOT CT (BEAKER) (test 0 code = 1687) SCAN RESULT (test code = 7867267) See Scanned ReportECG 12 [id number] 13:44:09Interface, External Ris In - 09/25/2020 1:44 PM CDTVentricular Rate 75 BPMAtrial Rate 75 BPMP-R Interval 154 msQRS Duration 86 msQ-T Interval 442 msQTC Calculation(Bazett) 493 msP Temple 73 degreesR Temple 83 degreesT Temple 64 degreesNormal sinus rhythmRight atrial enlargementProlonged QTAbnormal ECGNo previous ECGs availableConfirmed by MD Megan, Nathaniel ([id number]) on 09/25/2020 1:44:07 [facility]US, [facility]VIS, WITH [id number] 13:22:00Reason for Exam:->to assess iliac vesselsKidney Transplant Evaluation [facility] : 1985 Sex: FFINAL [...] visualized bilateral iliac vessels. Signed: Cindy Wright [facility]ITALeport Verified Date/Time: 09/25/2020 13:22:46 US pelvis with azptqeg9796-05-25 13:22:00Interface, External Ris In - 09/25/2020 1:24 [...] Cindy Wright MDReport Verified Date/Time: 09/25/2020 13:22:46 [facility] CenterUS, ABDOMINAL, [id number] 13:01:00Reason for Exam:->[facility] : 1985 Sex: F [...] CINDY WRIGHT MD on 101:01 PMUS abdomen abngbcxl1548-13-36 13:01:00Interface, External Ris In - 09/25/2020 1:03 [...] Cindy Gonzalez MDReport Verified Date/Time: 09/25/2020 13:01:08 [facility] CenterLIPID [id number] 12:42:00 Test Item Value Reference Range Interpretation [...] Borderline 130-159 High 160-189 Very High >=190 Senior Stack Engineer ID - [email or web address] Echo W/Doppler(CW/PW/Color)2020-09-25 10:35:55Ejection FractionSLEH ECHO HEARTLAB MKCKESSON CPACSInterface, External Ris In - 09/25/2020 10:36 AM CDTTransthoracic Echocardiography Report (TTE) Demographics Patient Name MARIANA RODRIGES Dateof Study 09/25/2020 RAMONA MEYER Gender Female Visit Number [id number] Race Black Room Number OP Number Date of 1985 Referring Anderson Zamora Physician Bunny 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 Atrial septal position continuously bows ewav-ht-dzahy, consistent with elevated LA pressure . Ikfq-vt-yefyeawx t ricuspid regurgitation. Estimated peak systolic PA [...] Atrial Septum Atrial septal position continuously bows dkuy-op-myqan, consistent with elevated LA pressure . Aortic Valve Normal AoV structure. There is trace aortic regurgitation. Mitral Valve Mild MV leaflet thickening. At least moderate eccentric posteriorly directed mitral regurgitation.Tricuspid Valve TV structure is normal. Pxka-mh-qgyomkko tricuspid regurgitation. Estimated peak systolic PA pressure [...] LVOT CO: 6.17 l/min LVOT CI: 3.72 l/min/m^2[facility]enc[facility] RAD, CHEST, 2 [id number] 10:28:00Reason for Exam:->[facility] Trans[facility] EvaluationDES[facility]Name: MARIANA RODRIGESKARMARENUKA MITCH : 1985 Sex: F FINAL REPORT EXAMINATION: [...] pneumonia,pleural effusion or pneumothorax. Signed: Zina Pierre Verified Date/Time: 09/25/2020 10:28:23 Reading Location: [place] [facility] Reading Room [address] [place] [address] XR chest 2 views 2020-09-25 10:28:00Interface, External [...] MDReport Verified Date/Time: 09/25/2020 10:28:23 Reading Location: [employer] Reading Room [address] [place] [address] [facility] [id number] 14:34:00 Test Item Value Reference Range Interpretation Comments UR HCG QUAL (test code = HCGQLU) NEGATIVE NEGATIVE COVID 19 Asymptomatic IH [id number] 12:06:00 Test Item Value Reference Range Interpretation [...] COMMENTS: If not done this admissionBASIC METABOLIC [id number] 11:25:00 Test Item Value Reference Range Interpretation [...] = 8.3 mg/dL 8.0-10.5 N CA) PROTHROMBIN [id number] 11:22:00 Test Item Value Reference Range Interpretation [...] o prevent recurre nt infarct). CBC W/AUTO [id number] 11:20:00 Test Item Value Reference Range Interpretation [...] NO = MDIFF) - XR CHEST 1 [id number] 11:15:00 [facility] 1985 Sex: F FAX: Abimael Gallardo MD [phone] [place]: [address]: REG Name: MARIANA RODRIGES [facility] Cathy Alatorre : 1985 Age/S: 35/F [address] [facility] Unit #: [id number] Loc: [place] [address] Phys: Abimael Isaac MD Acct: [id number] Dis Date: Status: REG SDC PHONE #: [phone] Exam Date: 06/03/2020 1052 FAX #: [phone] Reason: PRE-OP EXAMS: CPT CODE: [id number] XR CHEST 1 V 31581 EXAM: XR CHEST 1 VIEW DATE: 06/03/2020 9:40 AM : 1985; Age: 35 years y/o Female INDICATION: AVF malfunction, PRE-OP COMPARISON: March 25, 2020 TECHNIQUE: AP chest. IMPRESSION: Lines, tubes and hardware: Stable. Heart, mediastinum and lungs: Heart appears borderline enlarged. No consolidation or pleural effusion is seen. No pneumothorax. SL: [id number] at 1115 Reported and signed by: Marcy Montes D.O. CC: Abimael Isaac MD Technologist: RT Faheem(R) Trnscrd Date/Time/By: 06/03/2020 (1118) : By: [email or web address] Orig Print D/T: S: 06/03/2020 (2660) PAGE 1 Signed ReportCBC W/AUTO [id number] 11:13:00 Test Item Value Reference Range Interpretation [...] DIFF REQUIRED (test code = MDIFF) PROTHROMBIN [id number] 11:57:00 Test Item Value Reference Range Interpretation [...] o prevent recurre nt infarct). BASIC METABOLIC [id number] 11:39:00 Test Item Value Reference Range Interpretation [...] 9.9 mg/dL 8.0-10.5 N CA) HCG SERUM [id number] 11:23:00 Test Item Value Reference Range Interpretation Comments HCG SERUM QUAL (test code = SERUM NEGATIVE NEGATIVE HCGQL) CBC W/AUTO [id number] 11:17:00 Test Item Value Reference Range Interpretation [...] (test code NO = MDIFF) CBC W/AUTO [id number] 11:15:00 Test Item Value Reference Range Interpretation [...] code = MDIFF) - XR CHEST 1 [id number] 11:04:00 FAX: Abimael Gallardo MD [phone] [place]: St: REG Name: MARIANA RODRIGES [facility] : 1985 Age/S: 34/F [address] [place] [address] Unit#: [id number] Loc: [place] [address] Phys: Abimael Isaac MD Acct: [id number] Dis Date: Status: [facility] PHONE #: [phone] Exam Date: 03/25/20201102 FAX #: [phone] Reason: PRE OP EXAMS: CPT CODE: [id number] XR CHEST 1 V [id number] PROCEDURE: CHEST SINGLE VIEW INDICATION: PRE OP;ESRD COMPARISON: March 2014 FINDINGS: TUBES AND LINES: Tunneledright hemodialysis catheter tip at the level of mid superior vena cava. CHEST: The lungs are clear. The pleural, cardiomediastinal silhouette, and bony thorax are normal. IMPRESSION: No acute findings. SL: [id number] Reported and signed by: Josesito Tolentino M.D. CC: Abimael Isaac MD Technologist: More LamaRT(R) Trnscrd Date/Time/By: 03/25/2020 (3880) : By: Christian Orig Print D/T: S: 03/25/2020 (6286) PAGE 1 Signed ReportCOVID 19 Asymptomatic IH [id number] 10:59:00 Test Item Value Reference Range Interpretation [...]
[2021-09-17] MEDS ORDERED: HYDRALAZINE HCL 20 MG/ML VIAL ONE (19:16)
[2021-09-17 19:19] LABS: Absolute Lymphocytes (CBC) 1.2 K/uL (0.7-4.9); Hematocrit 33.6 % (36.0-45.0); Lymphocytes % 24.3 % (15.3-44.8); MPV 8.5 fL (7.6-11.3); RBC Red Blood Cell Count 3.65 M/uL (3.86-4.86)
[2021-09-17 19:37] LABS: Magnesium 2.4 mg/dL (1.8-2.4); Potassium 4.8 mmol/L (3.5-5.1)
[2021-09-17] MEDS ORDERED: HYDRALAZINE HCL 25 MG TABLET ONE (19:48)
--- NOTE | 2021-09-17 21:06 | ER ---
Nurse's Notes [facility] Name: Nely Quinones Age: 36 yrs Sex: Female : 1985 Arrival Date: 09/17/2021 Time: 18:20 Bed 26 Private MD: Diagnosis: Hypertensive heart and chronic kidney disease without heart failure, with stage 5 chronic kidney disease, or end stage renal disease Presentation: 09/17 18:32 Chief complaint: Patient states: "I missed dialysis and I just need to get my labs ab2 drawn so I can go tomorrow." Pt denies any symptoms. Coronavirus screen: Vaccine status: Patient reports being unvaccinated. Client denies travel out of the [place] in the last 14 days. At this time, the client does not indicate any symptoms associated with coronavirus-19. Ebola Screen: Patient negative for fever greater than or equal to 101.5 degrees Fahrenheit, and additional compatible Ebola Virus Disease symptoms Patient denies exposure to infectious person. Patient denies travel to an Ebola-affected area in the 21 days before illness onset. No symptoms or risks identified at this time. Initial Sepsis Screen: Does the patient meet any 2 criteria? No. Patient's initial sepsis screen is negative. Does the patient have a suspected source of infection? No. Patient's initial sepsis screen is negative. Risk Assessment: Do you want to hurt yourself or someone else? Patient reports no desire to harm self or others. Onset of symptoms is unknown. 18:32 Method Of Arrival: Ambulatory ab2 18:32 Acuity: LORENA 2 ss Triage Assessment: 18:37 General: Appears in no apparent distress. comfortable, Behavior is calm, cooperative, ab2 appropriate for age. Pain: Denies pain. EENT: No deficits noted. No signs and/or symptoms were reported regarding the EENT system. Neuro: No deficits noted. 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 Gait is steady, Speech is normal. Cardiovascular: No deficits noted. Denies chest pain, shortness of breath. Respiratory: Airway is patent Respiratory effort is even, unlabored, Respiratory pattern is regular, symmetrical, Breath sounds are clear bilaterally. GI: No deficits noted. No signs and/or symptoms were reported involving the gastrointestinal system. Abdomen is round non-distended, Bowel sounds present X 4 quads. : No deficits noted. No signs and/or symptoms were reported regarding the genitourinary system. Derm: Skin is intact, Skin is pink, warm \\T\\ dry. Historical: - Allergies: 18:37 No Known Allergies; ab2 - PMHx: 18:37 Asthma; dialysis L arm access; Hypertensive disorder; RENAL FAILURE; ab2 - Immunization history:: Adult Immunizations up to date. - Social history:: Smoking status: Patient denies any tobacco usage or history of. Screenin:53 Abuse screen: Denies threats or abuse. Denies injuries from another. Nutritional can screening: No deficits noted. Tuberculosis screening: No symptoms or risk factors identified. Fall Risk None identified. Assessment: 19:51 Reassessment: No changes from previously documented assessment. I recv'd report on the can pt in room 26 \\T\\ 1900. A SL was started at 1932, by the charge, after my one attempt. The pt c/o a RANDHAWA and her bp values were given to the provider. Orders recv'd and meds given. The pt remains on a bedside monitor. 21:12 Reassessment: Despite the pt's bp and us encouraging her to stay, the pt said,"I got to can get home to my kids. I'll get dialysis tomorrow." She was given a copy of the lab results that had completed and the provider said it was no longer necessary to sign any paper, to leave AMA. The pt's SL was removed and a drsg was placed. She ambulated out with a steady gait. Vital Signs: 18:32 BP 217 / 152; Pulse 88; Resp 18; Temp 98.2(TE); Pulse Ox 100% on R/A; Weight 68.04 kg; ab2 Height 5 ft. 2 in. (157.48 cm); Pain 0/10; 19:05 BP 217 / 155; Pulse 87; Resp 32; Pulse Ox 95% on R/A; can 19:30 BP 230 / 157; Pulse 89; Resp 32; Pulse Ox 97% on R/A; can 19:54 BP 211 / 140; Pulse 94; Resp 35; Pulse Ox 98% on R/A; Pain 5/10; can 21:15 BP 201 / 135; Pulse 97; Resp 32; Pulse Ox 100% on R/A; can 18:32 Body Mass Index 27.44 (68.04 kg, 157.48 cm) ab2 ED Course: 18:20 Patient arrived in ED. as 18:37 Triage completed. ab2 18:39 Arm band placed on right wrist. ab2 18:44 Oscar Bhat PA is PHCP. cp 18:44 Rohan Sosa MD is Attending Physician. cp 19:10 Alondra Meyer, RN is Primary Nurse. can 19:11 BMP Sent. can 19:11 Magnesium Sent. can 19:11 CBC with Diff Sent. can 19:24 Jaden Diaz DO is Attending Physician. cp 19:29 Inserted saline lock: 22 gauge in right hand, using aseptic technique. tw5 19:35 BMP Sent. can 19:35 Magnesium Sent. can 19:56 No provider procedures requiring assistance completed. can Administered Medications: 19:32 Drug: hydrALAZINE 10 mg Route: IVP; Site: right hand; can 21:11 Follow up: Response: Blood pressure is unchanged can 19:43 Drug: hydrALAZINE 10 mg Route: IVP; Site: right hand; can 21:11 Follow up: Response: Blood pressure is unchanged can 19:46 Drug: HydrALAZINE 50 mg Route: PO; can 21:11 Follow up: Response: Blood pressure is unchanged can 21:05 Drug: Lasix (furosemide) 60 mg Route: IVP; Site: right hand; can 21:12 Follow up: Response: Blood pressure is unchanged can Outcome: 21:06 Discharge ordered by MD. cp 21:12 Patient left the ED. tw5 Signatures: Kristy Lazo Shelby, RN RN ss Oscar Bhat PA PA cp Wood, Tiffany tw5 Alondra Meyer, CHELA RN can Tal Torres ab2 Corrections: (The following items were deleted from the chart) 18:41 18:32 Acuity: LORENA 3 ab2 ss
--- NOTE | 2021-09-17 21:06 | EDPHYS ---
Physician Documentation [facility] Name: Nely Quinones Age: 36 yrs Sex: Female : 1985 Arrival Date: 09/17/2021 Time: 18:20 Bed 26 Private MD: ED Physician Jaden Diaz HPI: 09/17 19:00 This 36 yrs old Black Female presents to ER via Ambulatory with complaints of missed cp dialysis, needs labwork. 19:00 The patient has shortness of breath at rest. cp 19:00 Onset: The symptoms/episode began/occurred gradually, and became worse today. Duration: cp The symptoms are continuous, and are steadily getting worse. Associated signs and symptoms: Pertinent negatives: chest pain, diaphoresis, dizziness, fever, vomiting. Severity of symptoms: in the emergency department the symptoms are unchanged despite home interventions. Patient reports she has not had dialysis times 1 week. Needs labs checked. Patient reports she has not taken hypertensive meds today. Historical: - Allergies: 18:37 No Known Allergies; ab2 - PMHx: 18:37 Asthma; dialysis L arm access; Hypertensive disorder; RENAL FAILURE; ab2 - Immunization history:: Adult Immunizations up to date. - Social history:: Smoking status: Patient denies any tobacco usage or history of. ROS: 19:04 Constitutional: Negative for body aches, chills, fever. cp 19:04 Eyes: Negative for injury, pain, redness, and discharge. cp 19:04 Cardiovascular: Negative for chest pain, palpitations. 19:04 Respiratory: Positive for shortness of breath, at rest. Negative for cough, wheezing. 19:04 Abdomen/GI: Negative for abdominal pain, nausea, vomiting, and diarrhea. 19:04 Neuro: Negative for altered mental status, dizziness, headache, syncope, weakness. 19:04 All other systems are negative. Exam: 19:09 Constitutional: The patient appears in no acute distress, alert, awake, cp non-diaphoretic, non-toxic, well developed, well nourished. 19:09 Head/Face: Normocephalic, atraumatic. cp 19:09 Eyes: Periorbital structures: appear normal, Pupils: equal, round, and reactive to light and accomodation, Extraocular movements: intact throughout, Conjunctiva: normal, no exudate, no injection, Sclera: no appreciated abnormality, Lids and lashes: appear normal, bilaterally. 19:09 ENT: External ear(s): are unremarkable, Nose: is normal, Mouth: Lips: moist, Oral mucosa: moist, Posterior pharynx: Airway: no evidence of obstruction, patent. 19:09 Neck: ROM/movement: is normal, is supple, without pain, no range of motions limitations. 19:09 Chest/axilla: Inspection: normal, Palpation: is normal, no crepitus, no tenderness. 19:09 Cardiovascular: Rate: normal, Rhythm: regular, Edema: is not appreciated, JVD: is not appreciated. 19:09 Respiratory: the patient does not display signs of respiratory distress, Respirations: labored breathing, is not present, intercostal retractions, are absent, Breath sounds: bronchial sounds, that are mild, are heard diffusely, stridor, is not appreciated, wheezing: is not appreciated. 19:09 Abdomen/GI: Inspection: abdomen appears normal, Palpation: abdomen is soft and non-tender, in all quadrants. 19:09 Back: pain, is absent, ROM is normal. 19:09 Neuro: Orientation: to person, place \T\ time. Mentation: is normal, Motor: moves all fours, strength is normal, Sensation: is normal, Gait: is steady, at a normal pace, without difficulty. Vital Signs: 18:32 BP 217 / 152; Pulse 88; Resp 18; Temp 98.2(TE); Pulse Ox 100% on R/A; Weight 68.04 kg; ab2 Height 5 ft. 2 in. (157.48 cm); Pain 0/10; 19:05 BP 217 / 155; Pulse 87; Resp 32; Pulse Ox 95% on R/A; can 19:30 BP 230 / 157; Pulse 89; Resp 32; Pulse Ox 97% on R/A; can 19:54 BP 211 / 140; Pulse 94; Resp 35; Pulse Ox 98% on R/A; Pain 5/10; can 21:15 BP 201 / 135; Pulse 97; Resp 32; Pulse Ox 100% on R/A; can 18:32 Body Mass Index 27.44 (68.04 kg, 157.48 cm) ab2 MDM: 18:48 Patient medically screened. cp 21:05 Data reviewed: vital signs, nurses notes, lab test result(s), EKG, radiologic studies, cp plain films. 21:05 Test interpretation: by ED physician or midlevel provider: ECG, plain radiologic cp studies. Counseling: I had a detailed discussion with the patient and/or guardian regarding: the historical points, exam findings, and any diagnostic results supporting the discharge/admit diagnosis, the presence of at least one elevated blood pressure reading (>120/80) during this emergency department visit, lab results, radiology results, need for further treatment, but declines at this time and requests discharge to home. Patient understands risk of elevated blood pressure that can cause stroke and/or . 09/17 18:48 Order name: CBC with Diff; Complete Time: 19:39 cp 09/17 19:39 Interpretation: Normal except: RBC 3.65; HGB 10.8; HCT 33.6; EOSINOPHIL % 5.3. cp 09/17 18:48 Order name: BMP; Complete Time: 19:39 cp 09/17 19:40 Interpretation: Normal except: CL 110; CO2 18; GLUC 113; BUN 70; CRE 8.15; GFR 7. cp 09/17 18:48 Order name: Magnesium; Complete Time: 19:39 cp 09/17 18:48 Order name: IV Saline Lock; Complete Time: 19:29 cp 09/17 18:48 Order name: Labs collected and sent; Complete Time: 19:05 cp 09/17 19:05 Order name: EKG - Nurse/Tech; Complete Time: 19:05 ld1 09/17 19:06 Order name: EKG; Complete Time: 19:06 cp 09/17 19:06 Order name: EKG - Nurse/Tech; Complete Time: 19:35 cp Administered Medications: 19:32 Drug: hydrALAZINE 10 mg Route: IVP; Site: right hand; can 21:11 Follow up: Response: Blood pressure is unchanged can 19:43 Drug: hydrALAZINE 10 mg Route: IVP; Site: right hand; can 21:11 Follow up: Response: Blood pressure is unchanged can 19:46 Drug: HydrALAZINE 50 mg Route: PO; can 21:11 Follow up: Response: Blood pressure is unchanged can 21:05 Drug: Lasix (furosemide) 60 mg Route: IVP; Site: right hand; can 21:12 Follow up: Response: Blood pressure is unchanged can Disposition: 19:16 Co-signature as Attending Physician, Rohan Sosa MD I agree with the assessment and kdr plan of care. 09/18 01:46 Co-signature as Attending Physician, Jaden HERRERA was immediately available in the [facility] Department for consultation in the care of the patient.. Disposition Summary: 09/17/21 21:06 Discharge Ordered Location: Home cp Problem: an ongoing problem cp Symptoms: have improved cp Condition: Serious cp Diagnosis - Hypertensive heart and chronic kidney disease without heart failure, with stage 5 cp chronic kidney disease, or end stage renal disease Followup: cp - With: Private Physician - When: Tomorrow - Reason: Recheck today's complaints Discharge Instructions: - Discharge Summary Sheet cp - Hypertension, Adult cp - Food Basics for Chronic Kidney Disease cp - End-Stage Kidney Disease cp Forms: - Medication Reconciliation Form cp - Thank You Letter cp - Antibiotic Education cp - Prescription Opioid Use cp Signatures: Dispatcher [employer] EDMS Rohan Sosa MD MD kdr Page, Corey, PA PA cp Jaden Diaz DO DO ms3 Mouna Joseph RN RN ld1 Alondra Meyer RN RN Tal Schmitz Corrections: (The following items were deleted from the chart) 20:25 01:46 Co-signature as Attending Physician, Jaden HERRERA was immediately available ms3 in the Emergency Department for consultation in the care of the patient.. ms3
[2021-09-17] MEDS ORDERED: FUROSEMIDE 40 MG/4 ML VIAL ONE (21:09)
[2021-09-17] MEDS ORDERED: FUROSEMIDE 20 MG/ 2ML VIAL ONE (21:09)
[2021-09-18 00:39] VITALS: TEMP 98.2
[2021-09-18 00:44] VITALS: BP 211/140; O2SAT 98
--- NOTE | 2021-09-18 07:46 | EKG ---
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
== END 2021-09-17 21:12 | disposition home or self-care (01) ==
LOC: ER 18:18
DX: I13.2 Hypertensive heart and chronic kidney disease with heart failure and with stage 5 chronic kidney disease, or end stage renal disease (principal); N18.5 Chronic kidney disease, stage 5; I50.9 Heart failure, unspecified; Z99.2 Dependence on renal dialysis
CPT/HCPCS: 93005; 85025; 80048; 36415; 83735; 96375; 96374; 99284; J0360; J1940 ×2

== ENCOUNTER 2022-05-07 08:06 | Inpatient (IN) | payer OTHER ==
--- OUTSIDE RECORDS SUMMARY | 2022-05-07 08:11 | XMS REPORT | Continuity of Care Document ---
:1985 Author Organization [facility] t Address [address] [place] [address] Dr. [address]. [address] [place] [address] Care Team Providers Name Role Phone Pcp, Patient Does Not Have A Primary Care Physician [id number] Abimael Isaac Attending Clinician Unavailable Jennifer Huff MA Attending Clinician Unavailable Lida Solis RN Attending Clinician Unavailable Madie DANIELLE, Bee Prater N Attending Clinician [phone] Evin Snell MD Attending Clinician Ruthann Link Attending Clinician Unavailable Brigida Sorensen RN Attending Clinician Unavailable Andrea Hermosillo Attending Clinician Unavailable EVIN SNELL Attending Clinician Unavailable Anderson Christian LCSW Attending Clinician Unavailable HUMBERTO BARRON Attending Clinician Unavailable EDE BUCK Attending Clinician Unavailable Fior Martinez RN Attending Clinician Unavailable Laura Culp RPH Attending Clinician Unavailable Humberto Barron MD Attending Clinician Erich DANIELLE, Jordana Luna Attending Clinician Rena Nassar Attending Clinician Unavailable Tanna Willson Attending Clinician Unavailable Mai Petty Attending Clinician Unavailable Camille Gifford Attending Clinician Unavailable 1, [facility] Alannah Us Room Attending Clinician Unavailable Doctor Unassigned, [employer] Attending Clinician Unavailable Physician, No Primary or Family Admitting Clinician Unavaila ble Payers Payer Name Policy Type Policy Number Effective Date Expiration Date Rk FRY [id number] 2017 HEALTH 00:00:00 Problems Condition Condition Condition Status Onset Resolution Last Treating Co mments Source Name Details Category Date Date Treatment Clinician Date S/P S/P Disease Active Univers 7-03 ity of section section 00:00: [place] [facility] Vaginal Vaginal Disease Active Univers candidiasi candidiasi 7-02 it y of s s 00:00: [place] [facility] Morbid Morbid Disease Active Univers obesity obesity 6-30 [place] of with body [place] mass index 00 [place] dical of of Branch 40.0-49.9 40.0-49.9 Chronic Chronic Disease Active Univers hypertensi hypertensi 6-30 it y of on with on with 00:00: [place] superimpos superimpos 00 Me dical ed ed [...] ity of vaginitis [place] Anxiety Anxiety Disease Active Univers during during 1-24 [place] of , [place] ante[place] antepartum [place] History of History of Disease Active U nivers 3 3 1-24 it y of sections sections 00:00: [place] [address] Medical Branch Sleep Sleep Disease Active Univers disorder disorder 1-24 ity of 00:00: [place] [address] Medical Branch Threatened Threatened Disease Active U nivers miscarriag miscarriag 1-24 it y of e e 00:00: [place] [address] Medical Branch History of History of Disease Active U nivers placenta placenta 7-22 ity of abruption abruption 00:00: [facility] Medical Branch Excessive Excessive Disease Active Uni vers weight weight 7-08 ity of gain gain 00:00: [place] during during 00 Medical , , Br anch third third trimester trimester H/O H/O Disease Active Univers maternal maternal 7-08 ity of blood blood 00:00: [place] transfusio transfusio 00 [place] dical n, n, Branch currently currently , , third third trimester trimester Disease Active Uni vers related related 6-03 ity of hip pain hip pain 00:00: [place] in second in second 00 Medi cinthia trimester, trimester, Br anch antepartum antepartum Uterine Uterine Disease Active Univers size-date size-date 6- ity of discrepanc discrepanc [place], [place] Medical antepartum antepartum Br anch , second , second trimester trimester Tooth Tooth Disease Active Univers abscess abscess 6-03 ity of 00:00: [place] [address] Medical Branch Immune to Immune to Disease Active Uni vers varicella varicella 6-03 ity of 00:00: [place] [address] Medical Branch Rubella Rubella Disease Active Univers immune immune 6-03 ity of 00:00: [place] [address] Medical Branch Shoulder Shoulder Disease Active Unive rs pain, pain, 3-28 ity of right right 00:00: [place] [address] Medical Branch History of History of Disease Active U nivers fracture fracture 3-21 ity of of of 00:00: [place] clavicle clavicle 00 Medica l Branch Previous Previous Disease Active 2016-0 Unive rs 3-04 ity of section section 00:00: [place] complicati complicati 00 Me dical ng ng Branch History of History of Disease Active U nivers DIC DIC 3-04 ity of syndrome syndrome 00:00: [place] 00 Medical Branch High-risk High-risk Disease Active Uni vers 5-29 ity of 00:00: [place] 00 Medical Branch Allergies, Adverse Reactions, Alerts Allergy Allergy Status Severity Reaction(s) Onset Inactive Treating Comm ents Source Name Type Date Date Clinician No Known DA Active U [facility]14 Clear Allergie 00:00: [place] 00 [facility] No Known DA Active U [facility] 02-14 Clear Allergie 00:00: [place] [facility] hydrocod DA Active U 2013-06 [facility] one 0 Clear 00:00: [place] 00 [facility] hydrocod DA Active U CHEST PAINS 2013-06 [facility] one Clear 00:00: [place] 00 [facility] NO KNOWN Allergy Active [facility] Family History Family Member Diagnosis Comments Start Date Stop Date Source Natural brother No Known Problem [facility] Maternal uncle Kidney disease [facility] Natural mother Heart defect [facility] Natural sister No Known Problem [facility] Social History Social Habit Start Date Stop Date Quantity Comments Source History of tobacco Cigarette Smoker [facility] use [facility] History SDOH [facility] Alcohol Frequency Medical Center History SDOH [facility] Alcohol Std Drinks Medica Center History SDOH [facility] Alcohol Binge Medical T[facility] Alcohol intake 2020-10-07 2020-10-07 Ex-drinker [facility] 00:[facility] 00:00:00 (finding) Medical Center History SDOH 2020-10-07 2020-10-07 1 glass of wine [facility] Alcohol Comment 00:00:00 00:00:00 socially Medical C enter Tobacco Comment 2020-10-07 2020-10-07 smoked [address] [facility] 00:00:[facility] 00[facility]00 Medical Center Tobacco use and 2020-06-16 2020-06-[address] [facility] exposure 00:00:00 00:00:00 Medical Center Sex Assigned At [address] [address] [facility] 00[facility] Center Smoking Status Start Date Stop Date Source Ex-smoker 2017-11-18 00:00:00 2017-11-18 00:00:00 [facility] Medications Ordered Filled Start Stop Current Ordering Indication Dosage Frequency Signature Comments Components Source Medication Medication Date Date Medication? Clinician (SIG) Name Name sevelamer Yes 1600mg Take 1,[address] (RENVELA) 4-27 mg by Lukes 800 mg 13:12: mouth 3 Medical tablet 58 (three) Center times daily with meals. ramipriL 0 Yes 10mg QD Take [address] (ALTACE) 10 4-27 by mouth Luke s MG capsule 13:12: daily. Medic al 58 Center metoprolol 0 Yes 25mg Q.5D Take [address] tartrate 4-27 by mouth 2 Lukes (LOPRESSOR) 13:12: (two) Medic al 25 MG 58 times Center tablet daily. NIFEdipine Yes 30mg Q.14094271 Take [address] (PROCARDIA) 4-27 [id number] by mouth 3 Lukes 10 MG 13:12: 3D (three) Medical capsule 58 times Center daily. spironolact Yes 50mg QD Take [address] one 4-27 by mouth Lukes (ALDACTONE) 13:12: daily. Medi cinthia 50 MG 58 Center tablet HYDROcodone Yes 1{tbl} Take [address] -acetaminop 4-27 tablet by Madison huynh (NORCO 13:12: mouth Medica l 10-325) 58 every 6 Center 10-325 mg (six) per tablet hours as needed for Pain. sevelamer 0 Yes 1600mg Take 1,[address] (RENVELA) 4-27 mg by Lukes 800 mg 13:12: mouth 3 Medical tablet 58 (three) Center times daily with meals. ramipriL 2020-0 Yes 10mg QD Take [address] (ALTACE) 10 4-27 by mouth Luke s MG capsule 13:12: daily. Medic al 58 Center metoprolol 0 Yes 25mg Q.5D Take [address] tartrate 4-27 by mouth 2 [facility]ukes (LOPRESSOR) 13:12: (two) Medic al 25 MG 58 times Center tablet daily. NIFEdipine Yes 30mg Q.[id number] Take [address] (PROCARDIA) 4-27 [id number] by mouth 3 Lukes 10 MG 13:12: 3D (three) Medical capsule 58 times Center daily. spironolact 0 Yes 50mg QD Take [address] one 4-27 by mouth Lukes (ALDACTONE) 13:12: daily. Medi cinthia 50 MG 58 Center tablet HYDROcodone Yes 1{tbl} Take [address] -acetaminop 4-27 tablet by Madison es hen (NORCO 13:12: mouth Medica l 10-325) 58 every 6 Center 10-325 mg (six) per tablet hours as needed for Pain. doxazosin 0 Yes 8mg Q.[id number] Take [address] (CARDURA) 8 4-27 [id number] by mouth 3 Lukes MG tablet 12:13: 3D (three) Medic al 58 times Center daily . cholecalcif 0 Yes 5000U QD Take 5,[address] [facility], 4-27 Units by Lukes vitamin D3, 12:13: mouth Medic al 125 mcg 58 daily. Center (5,000 unit) Tab doxazosin 0 Yes 8mg Q.[id number] Take [address] (CARDURA) 8 4-27 [id number] by mouth 3 Lukes MG tablet 12:13: 3D (three) Medic al 58 times Center daily . cholecalcif Yes 5000U QD Take 5,[address] [facility], 4-27 Units by Lukes vitamin D3, 12:13: mouth Medic al 125 mcg 58 daily. Center (5,000 unit) Tab hydrALAZINE 0 2020- No 10mg Q.[id number] Take [address] (APRESOLINE 4-27 04-27 [id number] by mouth 3 Lukes ) 10 MG 12:13: 00:00 3D (three) [...] Immunizations Ordered Filled Immunization Date Status Comments Sourc e Immunization Name Name [facility] 2017-12-06 Completed [facility] 00:00:00 [facility] 2017-12-06 Completed [facility] 00:[facility]:00 [facility] 2015-12-12 Completed University 00:00:00 [facility] 2015-12-12 Com[facility] 00[facility]00 [facility] 2014-02-08 Completed [facility] 00[facility]00 [facility] Vital Signs Vital Name Observation Time Observation Value Comments Source HEIGHT 2020-10-07 11:13:00 159.2 cm WEIGHT 2020-10-07 11:13:00 66.225 kg HEIGHT 2020-10-07 11:13:00 159.2 cm WEIGHT 2020-10-07 11:13:00 66.225 kg Systolic blood 2020-10-07 11:13:00 202 mm[Hg] [facility] Diastolic blood 2020-10-07 11:13:00 133 mm[Hg] [facility] Heart rate 2020-10-07 11:13:00 73 /min [facility] Body temperature 2020-10-07 11:13:00 36.61 Lois [facility] Respiratory rate 2020-10-07 11:13:00 20 /min [facility] Body height 2020-10-07 11:13:00 159.2 cm [facility] Body weight 2020-10-07 11:13:00 66.225 kg [facility] BMI 2020-10-07 11:13:00 26.13 kg/m2 [facility] Procedures Procedure Date / Time Performing Clinician Source Performed URINE CULTURE 2020-10-07 10:08:[address] [facility] URINALYSIS W/ MICROSCOPIC 2020-10-07 10:08:[address] [facility] HEMOGLOBIN A1C 2020-10-07 10:07:[address] [facility] CBC W/PLT COUNT & AUTO 2020-10-07 10:07:00 Anderson, Bhamidipati C [facility] DIFFERENTIAL [facility] CYTOMEGALOVIRUS ANTIBODY, 2020-10-07 10:07:00 Anderson, Bhamidipat i [facility] IGG [facility] CYTOMEGALOVIRUS ANTIBODY, 2020-10-07 10:07:00 Anderson, Bhamidipat i [facility] IGM [facility] COMPREHENSIVE METABOLIC 2020-10-07 10:07:00 Anderson, Bhamidipati [facility] PANEL [facility] EBV ANTIBODY, IGM 2020-10-07 10:07:00 Anderson, Bhamidipati [facility] GAMMA GLUTAMYL TRANSFERASE 2020-10-07 10:07:00 Anderson, Bhamidipa ti [facility] (GGT) [facility] HEPATITIS B SURFACE ANTIBODY 2020-10-07 10:07:00 Anderson, Bhamidi lev [facility] HEPATITIS B SURFACE ANTIGEN 2020-10-07 10:07:00 Anderson, Bhamidip ati [facility] HEPATITIS B CORE ANTIBODY, 2020-10-07 10:07:00 Anderson, Bhamidipa ti [facility] IGM [facility] HEPATITIS C ANTIBODY 2020-10-07 10:07:00 Anderson, [facility] HC LAB HIV-1 AG W/HIV-1&2 AB 2020-10-07 10:07:00 Anderson, amidi lev [facility] PHOSPHORUS 2020-10-07 10:07:00 Anderson, amidipati [facility] PTH, INTACT 2020-10-07 10:07:00 Anderson, [facility] PT/APTT 2020-10-07 10:07:00 Anderson, [facility] PROTHROMBIN TIME/INR 2020-10-07 10:07:00 [facility] RPR 2020-10-07 10:07:00 Anderson, [facility] URIC ACID 2020-10-07 10:07:00 Anderson, Bhamidipati [facility] VARICELLA ZOSTER ANTIBODY, 2020-10-07 10:07:00 Anderson, Bhamidipa ti [facility] IGG [facility] ANTITHROMBIN III 2020-10-07 10:07:00 Anderson, Bhamidipati [facility] FACTOR 5 LEIDEN PCR 2020-10-07 10:07:00 Anderson, Bhamidipati [facility] (THROMBOTIC RISK) [facility] HC LAB PROTHROMBIN FACTOR II 2020-10-07 10:07:00 Anderson, Bhamidi lev [facility] PROTEIN C ACTIVITY 2020-10-07 10:07:00 Anderson, Bhamidipati [facility] PROTEIN S ACTIVITY 2020-10-07 10:07:00 Anderson, amidipati [facility] PHOSPHATIDYLSERINE ABS (IGG, 2020-10-07 10:07:00 Anderson, Bhamidi lev [facility] IGM) [facility] DIRECT AHG (JOHANN)/DIRECT 2020-10-07 10:07:00 Anderson, Bhamidipati [facility] OTTO [facility] ABORH, MANUAL 2020-10-07 10:07:00 Anderson, Bhamidipati [facility] US PELVIS WITH DOPPLER 2020-09-25 12:09:00 Anderson, Bhamidipati C [facility] US ABDOMEN COMPLETE 2020-09-25 11:38:00 Anderson, Bhamidipati [facility] XR CHEST 2 VIEWS 2020-09-25 10:24:00 Anderson, Bhamidipati [facility] 2D ECHO W/ DOPPLER 2020-09-25 08:44:17 Anderson, Bhamidipati [facility] (CW/PW/COLOR) [facility] ECG 12-LEAD 2020-09-25 08:24:21 Anderson, Bhamidipati [facility] T SPOT TB 2020-09-25 08:06:00 Anderson, Bhamidipati [facility] FLOW PRA CLASS I WITH REFLEX 2020-09-25 08:05:00 Anderson, Bhamidi lev [facility] TO ANTIBODY SPECIFICITY [facility] FLOW PRA CLASS II WITH 2020-09-25 08:05:00 Anderson, Bhamidipati [facility] REFLEX TO ANTIBODY [facility] r SPECIFICITY HLA TYPING CI 2020-09-25 08:05:00 Anderson, Bhamidipati [facility] HLA TYPING CII 2020-09-25 08:05:00 Anderson, Bhamidipati [facility] LIPID PANEL 2020-09-25 08:05:00 Anderson, Bhamidipati [facility] BLOOD TYPING, AUTOMATED 2020-09-25 08:05:00 Anderson, Bhamidipati [facility] Plan of Care Planned Activity Planned Date Details Comments Source Future Scheduled 2027-12-07 DTAP/TDAP/TD VACCINES [facility] 00:00:00 (4 - Td) [code = Medical Tasha ter DTAP/TDAP/TD VACCINES (4 - Td)] Future Scheduled 2027-12-07 DTAP/TDAP/TD VACCINES [facility] Test 00:00:00 (4 - Td or Tdap) [code Medic al Center = DTAP/TDAP/TD VACCINES (4 - Td or Tdap)] Future Scheduled 2023-09-[address] [facility] Test 00:00:00 (procedure) [code = [facility] [id number]] Future Scheduled 2023-09-[address] [facility] Test 00:00:00 (procedure) [code = [facility] [id number]] Future Scheduled 2022-02-11 INFLUENZA VACCINE (#1) [facility] 00:00:00 [code = INFLUENZA Medical Ce nter VACCINE (#1)] Future Scheduled 2021-10-[address] [facility] Test 00:00:00 Counseling and Medical Cente r Screening (12+) [code = Tobacco Cessation Counseling and Screening (12+)] Future Scheduled 2021-06-[address] [facility] Test 00:00:00 (12+) [code = Medical Center DEPRESSION SCREENING (12+)] Future Scheduled 2021-02-[address] [facility] Test 00:00:00 WELLNESS (YEAR 2 or Medical Center FIRST YEAR if no IPPE) [code = MEDICARE ANNUAL WELLNESS (YEAR 2 or FIRST YEAR if no IPPE)] Future Scheduled 2021-02-11 INFLUENZA VACCINE (#1) [facility] 00:00:00 [code = INFLUENZA Medical Ce nter VACCINE (#1)] Future Scheduled 2020-06-[address] [facility] Test 00:00:00 (12+) [code = Medical Center DEPRESSION SCREENING (12+)] Future Scheduled 2020-02-12 Medicare IPPE (WELCOME [facility] Test 00:00:00 TO MEDICARE) [code = Medical Center Medicare IPPE (WELCOME TO MEDICARE)] Future Scheduled [address] [facility] 00:00:00 [facility] cervix (procedure) [code = 021121790] Future Scheduled [address] [facility] Test 00:00:00 [facility] cervix (procedure) [code = 683887133] Future Scheduled 1998 COVID-19 VACCINE (1) [facility] Test 00:00:00 [code = COVID-[address] VACCINE (1)] Future Scheduled [address] [facility] Test 00:00:00 0-64 YRS (1 of 1 - Medical C enter PPSV23) [code = PNEUMOCOCCAL VACCINE 0-64 YRS (1 of 1 - PPSV23)] Encounters Start End Encounter Admission Attending Care Care Encounter Source Date/Time Date/Time Type Type Clinicians Facility Department ID 2020-06-03 Inpatient Abimael Isaac [facility] DA[facility] [id number] [facility] 12:00:00 45 [facility] 2020-03-25 Inpatient EL Abimael Isaac [facility] DAYS [id number] [facility] 07:00:00 82 [facility] 2020-02-14 Inpatient Abimael Isaac [facility] DAYS [id number] [facility] 08:30:00 03 [facility] 2022-03-03 2022-03-[address] [facility] [id number] 00:[facility] 00:[facility]:[address] [facility] 2022-01-29 2022-01-[address] [facility] [id number] 00:[facility] 00:00:00 Lida Shelton [facility] 2022-01-04 2022-01-04 Telephone Elizabeth [facility] [id number] [facility] 00:00:00 00:00:00 Bee covarrubias MULTISPEC [id number] ity of IALTY [id number] [facility] [id number] [address] [facility] 2021-12-25 2021-12-25 [facility] [id number] [facility] 00:00:00 00:00:00 Evin Mortensen MULTISPEC [id number] ity of IALTY [id number] [place] [id number] [facility] 2021-12-23 2021-12-[address] [facility] [id number] 00:00[facility]00 00:00:00 [facility] 2021-12-18 2021-12-[address] [facility] [id number] 00:00:00 00:00:00 [facility] 2021-12-04 2021-12-[address] [facility] [id number] 00:00:00 00:00:[address] [facility] 2021-12-04 2021-12-[address] [facility] [id number] 00:00:00 00:00:00 [facility] 2021-11-24 2021-11-24 [facility] [id number] Univers 09:00:00 09:00:00 EVIN clark [facility] 2021-11-24 2021-11-24 [facility]phone [facility] [id number] Univers 00:00:00 00:00:00 Bee covarrubiasPEC [id number] ity [place] [id number] [id number] [address] [facility] 2021-09-30 2021-09-30 Telephone [facility] [id number] Univers 00:00:00 00:00:00 Bee covarruibas MULTISPEC [id number] it[place] [id number] [place] [id number] [address] [facility] 2021-09-08 2021-09-08 Telephone [facility] [id number] Univers 00:00:00 00:00:00 Evin Mortensen MULTISPEC [id number] it[place] [id number] [id number] [address] [facility] 2021-08-26 2021-08-26 Outpatient [facility] [id number] Univers 09:00:00 09:00:00 EVIN ity o f [facility] 2021-08-24 2021-08-24 Telephone [facility] [id number] Univers 00:00:00 00:00:00 Bee covarrubias MULTISPEC [id number] it[place] [id number] [id number] [address] [facility] 2021-07-14 2021-07-14 Telephone [facility] [id number] Univers 00:00:00 00:00:00 Evin Mortensen MULTISPEC [id number] it[id number] [id number] [address] [facility] 2021-07-07 2021-07-07 [facility] [id number] Univers 14:00:00 14:00:00 CLEARY yonyisrael o [facility] 2021-06-24 2021-06-24 [facility] [id number] Univers 00:00:00 00:00:00 Evin Mortensen MULTISPEC [id number] ity [facility] [id number] [facility] [id number] [address] [facility] 2021-05-26 2021-05-26 [facility] [id number] Univers 13:00:00 13:00:00 CLEARY itisrael davion [facility] 2021-05-19 2021-05-19 Outpatient R [facility] [id number] Univers 10:00:00 10:00:00 CLEARY itisrael ricardo [facility] 2021-05-19 2021-05-19 Gino, [facility] [id number] 00:00:00 00:00:[address] [facility] 2020-12-23 2020-12-23 Outpatient R [facility] [id number] Univers 11:00:00 11:00:00 ity [facility] 2020-12-23 2020-12-23 Outpatient ANDERSON, [facility] [id number] [facility] 00:00:00 00:00:00 BHAMIDIPATI 2020-12-23 2020-12-23 Outpatient EL [facility] [id number] [facility] 00:00:00 00:00:00 2020-12-23 2020-12-23 Outpatient EL [facility] [id number] [facility] 00:00:00 00:00:00 2020-11-18 2020-11-18 [facility] [id number] Univers 08:00:00 08:00:00 CLEARYZARA ricardo [facility] 2020-11-18 2020-11-18 Telephone Elizabeth [facility] [id number] [id number] [facility] 00:00:00 00:00:00 Bee covarrubias 350.1.13.10 ity of IALTY [id number] [facility] [id number] [facility] [address] [facility] 2020-11-14 2020-11-14 [facility] [id number] 00:00[facility]00 00:00:00 [facility] 2020-11-14 2020-11-14 [facility] [id number] 00:00:00 00:00:[address] [facility] 2020-11-13 2020-11-13 Case Kenji-Amari [facility] [id number] 00:00:00 00:00:00 Management Bee covarrubiasPEC [id number] IALTY [id number] [place] [id number] [place] [address] [facility] 2020-11-13 2020-11-13 Case Kenji-Amari [facility] [id number] [facility] 00:00:00 00:00:00 Management Bee covarrubias [id number] ity of IALTY [id number] [facility] [id number] [address] [facility] 2020-11-06 2020-11-06 Outpatient R HEBER [facility] [id number] [facility] 08:30:00 08:30:00 DEE moreno o f [facility] 2020-11-06 2020-11-06 Case Kenji-Cru [facility] [id number] 00:00:00 00:00:00 Management Bee covarrubias MULTISPEC 350.1.13.10 IALTY [id number] [place] [id number] [place] [address] [facility] 2020-11-06 2020-11-06 Case Kenji-Crjames [facility] 1.2.840.114 [id number] [facility] 00:00:00 00:00:00 Management Bee covarrubias [facility] [id number] Adryan [id number] [facility] [id number] [address] [facility] 2020-11-04 2020-11-[address] [facility] [id number] [facility] 00[facility]:00 [facility] 2020-10-31 2020-10-[address] [facility] [id number] [facility] 00:00:00 [facility] 2020-10-22 2020-10-[address] [facility] [id number] [address] 00:[facility] 00:00:00 ion [facility] 2020-10-16 2020-10-[address] [facility] [id number] [address] 00:[facility]00 00:00:00 [facility] 2020-10-16 2020-10-[address] [facility] [id number] 00:00:00 00:00:00 Only [facility] 2020-10-14 2020-10-[address] [facility] [id number] [address] 00:[facility]00 00:00:00 [facility] 2020-10-14 2020-10-[address] [facility] [id number] 00:[facility]00 00:00:00 ion [facility] 2020-10-14 2020-10-[address] [facility] [id number] 00:00:00 00:00:00 [facility] 2020-10-12 2020-10-[address] [facility] [id number] 00:[facility] 00:00:00 ion Laura Mortensen [facility] 2020-10-07 2020-10-07 Evaluation Humberto Barronkata [facility] [id number] [facility] 09:54:41 10:24:41 Erich Radhasteven [facility] 2020-10-07 2020-10-07 Evaluation Humberto Barronkata [facility] [id number] [facility] 09:53:43 10:23:43 Rena Nassar [facility] 2020-10-07 2020-10-07 Orders EL Anderson, [facility] [id number] 09:53:01 10:08:01 Only [facility] 2020-10-07 2020-10-07 Outpatient [facility] SLE [id number] [facility] 00:00:00 00:00:00 2020-10-07 2020-10-07 Outpatient SLEH SLEH [id number] [facility] 00:00:00 00:00:00 2020-10-07 2020-10-07 Outpatient EL [facility] SLE [id number] [facility] 00:00:00 00:00:00 2020-10-07 2020-10-[address] [facility] [id number] 00:[facility] 00[facility]00 [facility] 2020-10-06 2020-10-[address] [facility] [id number] 00:00[facility]00 00:00:00 [facility] 2020-10-06 2020-10-06 [id number] 00:00:00 00:00:00 [facility] 2020-10-06 2020-10-06 [facility] [id number] 00:00:00 00:00:00 ion [facility] 2020-10-02 2020-10-02 Outpatient SLEH SLEH [id number] [facility] 00:00:00 00:00:00 2020-10-02 2020-10-02 Outpatient SLEH SLEH [id number] [facility] 00:00:00 00:00:00 2020-10-02 2020-10-02 Outpatient EL [facility] SLE [id number] [facility] 00:00:00 00:00:00 2020-10-02 2020-10-[address] [facility] [id number] 00:[facility] 00:00:00 [facility] 2020-10-02 2020-10-[address] [facility] [id number] 00:00:00 00:00:00 [facility] 2020-09-25 2020-09-25 [facility] [id number] [facility] 10:07:04 23:59:00 [facility] 2020-09-25 2020-09-25 [facility] [id number] [facility] 10:06:56 10:06:56 Encounter 1, [facility] Room [facility] 2020-09-25 2020-09-25 [facility] [id number] 10:06:49 10:06:49 Encounter [facility] 2020-09-25 2020-09-25 [facility] [id number] 08:10:48 10:05:00 Encounter [facility] 2020-09-25 2020-09-25 [facility] [id number] 08:00:00 08:09:00 Encounter [facility] 2020-09-25 2020-09-25 Outpatient ANDERSON, SLE SLE [id number] SLE 00:00:00 00:00:00 [facility] 2020-09-25 2020-09-25 Outpatient EL SLE SLE [id number] [facility] 00:00:00 00:00:00 2020-09-252020-09-25 Outpatient ANDERSON, SLEH SLE [id number] [facility] 00:00:00 00:00:00 BHAMIDIPATI 2020-09-25 2020-09-25 Outpatient ANDERSON, SLEH SLE [id number] [facility] 00:00:00 00:00:00 BHAMIDIPATI 2020-09-25 2020-09-25 Outpatient ANDERSON, SLEH SLE [id number] SLE 00:00:00 00:00:00 BHAMIDIPATI 2020-09-25 2020-09-25 Outpatient ANDERSON, SLEH SLE [id number] SLE 00:00:00 00:00:00 [facility] 2020-09-04 2020-09-04 [facility] [id number] Univers 10:06:00 23:59:00 Encounter Evin Mortensen [place] [id number] ity [facility] [id number] [facility] [id number] [place] [address] [address] 2020-09-04 2020-09-04 Outpatient R [facility] ACO [id number] Univers 00:00:00 00:00:00 EVIN moreno o f [facility] 2020-09-04 2020-09-04 Letter [facility] [id number] Univers 00:00:00 00:00:00 (Out) Evin Mortensen MULTISPEC [id number] ity [facility] [id number] [facility] [id number] [facility] [place] [address] [facility] 2020-09-03 2020-09-03 Telephone Elizabeth [facility] [id number] 00:00:00 00:00:00 Bee covarrubias MULTISPEC 350.1.13.10 IALTY [id number] [place] [id number] [place] [address] [facility] 2020-09-03 2020-09-[address] [id number] [facility] 00:00:00 00:00:00 [facility] 2020-09-03 2020-09-03 Telephone Elizabeth [facility] [id number] [facility] 00:00:00 00:00:00 Bee covarrubias [id number] itJosafat 4.2.7.2.686 [facility] [id number] [address] [facility] 2020-06-26 2020-06-[address] [facility] [id number] 00:00:00 00:00:00 [facility] 2020-06-26 2020-06-[address] [facility] [id number] 00:00:00 00:00:00 [facility] 2020-06-23 2020-06-[address] [facility] [id number] 00:00:00 00:00:00 [facility] 2020-06-23 2020-06-[address] [facility] [id number] 00:00:00 00:00:00 [facility] 2020-06-17 2020-06-[address] [facility] [id number] 00:00:00 00:00:00 [facility] 2020-06-17 2020-06-[address] [facility] [id number] 00:00:00 00:00:00 [facility] 2020-06-17 2020-06-[address] [facility] [id number] 00:00:00 00:00:00 [facility] 2020-06-16 2020-06-[address] [facility] [id number] 00:00:00 00:00:00 [facility] 2020-06-16 2020-06-[address] [facility] [id number] [facility] 00:00:00 00:00:00 [facility] 2019-11-28 2019-11-28 Orders Doctor KELLY [id number] Univers 00:00:00 00:00:00 Only Unassigned, [place] 350.1.13.10 ity [facility] [employer] [facility] 4.2.7.2.686 Cecilio as [id number] [facility] [address] Results Test Description Test Time Test Comments Results Result Comments Source Phosphatidylserine Abs (IgG, IgM) 2020-10-14 09:24:00 Test Item Value Reference Range Interpretation Comme nts PHOSPHATIDYLSERINE AB(IGG) <10 U/mL <10 Negative 10-20 Equivocal- (test code = 4650) Found in small percentage of the healthy populat ion; may be reactive >20 Po sitive - Risk factor for thro mbosis and loss PHOSPHATIDYLSERINE AB <25 U/mL The an tiphospholipid antibody (IGM) (test code = syndrome (APS) lita 9824257) clinical-pathol ogic correlation that includesa clinical event (e.g. thrombosi s, pregnancyloss, thrombocytopeni a) and persistent positiveantipho spholipid antibodies (IgM or IgG JENSEN>40 MPL/GPL,IgM or IgG anti-b2GPI antibodies ora lupus anticoagulant). International consensusguidel radha for APS suggest waiting at least 12weeks before retestin g to confirm antibodypersist ence. The [facility]ic Lupus Internati onalCollaborating Clinics immunologicalcl assification criteria for [facility] lupuserythemato vishal (SLE) include testing for iso typeIgA, which has yet to be incor porated into APScriteria. Lo w level antiphospholipi d antibodiesmay sometimes be de tected in the setting ofinfec tion, drug therapy or aging. <25 N egative 25-35 Equivocal- Foun d in small percentage of t he healthy population; may be reactive >35 Positive - Risk factor for thrombosis RACQUEL (test code = RACQUEL) Performing Lab EZ [employer] [facility] [address] [place] [address] Daija Green MD, PhD, KRISHNA [facility]th[facility] Gene [id number] 16:22:00 Test Item Value Reference Interpretation Comments Range PROTHROMBIN GENE NEGATIVE RESULT: G20 210A VARIANT NOT ANALYSIS (test DETECTED code = 4155886) Interpretation See Below INTERPRETATIO N: This (test code = individual is n egative 2814097) (normal) for th e G17630Ijtzweat in the Prothrombin/Fac tor II gene. Increased risk ofthrombophilia can be caused by a morgan iety of genetic and non-geneticfact ors not screened for by this assay. Laboratory test ing supervised and results monitored by Carol Steinberg,Ph.D., D ABG, [facility]. The Q04496M mut ation [VS564110.1: g. 41962X>A (c.*97G>A)] in theProthrombin/ Factor II gene is the sec ond most common inherite d riskfactor for thrombosis occurring in approximately 2 % of Caucasians.Pres ence of the mutation is ass ociated with an elevation of prothrombin levels to about 30% above normal in heter ozygotes and to70% above nor mal in homozygotes. Pr othrombin (Y43706F) mutat ions are detected by amp lification oftheir selecte d gene regions by poly merase chain reaction (PCR) andfluorescent probe hybridization t o the targeted region , followed bymelting curve analysis with a real [employer] e PCR system. Although rare,f alse positive or false negati ve results may occur. All resultsshould be interpreted in context of clinical findin gs, relevanthistory , and other laboratory data . Health care providers, plea se contact your local [facility]'gen etic counselor or carol abraham [phone] ([phone]) forassistance with interpreta tion of these results. This t est was developed and i ts analytical performancechar acteristics have been deter mined by Zume Lifeti [facility] e [place]. It has not been cleared or appr elva bythe FDA. This assay has been validated pursu ant to the CLIAregulations and is used for clinical pu rposes. RACQUEL (test code = Performing Lab RACQUEL) [facility] [employer] [facility] [address] [facility] [place] [address] Daija Green MD, PhD, KRISHNA [facility] Leiden PCR (thrombotic risk)2020-10-11 13:14:00 Test Item Value Reference Interpretation Comments Range Factor V Leiden NEGATIVE FACTOR V LEI DEN (R506Q) Mutation (test VARIANT NOT D ETECTED code = 9134056) Interpretation See Below INTERPRETATIO N: This (test code = individual is n egative 9170952) (normal) for th e Factor VLeiden (R506Q) [...] Ques t Diagnosticsgene tic counselor or call [facility] ([phone]) for assistancewith interpretation of these results. This t est was developed and i ts analytical performancechar acteristics have been deter mined by [employer] [facility] e [place]. It has not been cleared or appr elva bythe FDA. This assay has been validated pursu ant to the CLIAregulations and is used for clinical pu rposes. RACQUEL (test code = Performing Lab RACQUEL) [facility] [address] [place] [address] Daija Green MD, PhD, KRISHNA [facility] HospitalProtein S [id number] 03:55:00 Test Item Value Reference Range Interpretation Comments Protein S 95 See_Comment Decreased leve ls of Functional (test Protein S a ctivity code = 2457949) may be found in patients withhereditary deficiency, war farin therapy, vitami n k deficiency, dominick er disease,DIC, or recent thrombos is as well as after surgery. In addition, it ma y bephysiologic i n . An elevated Protei n S activity is not clinicallysigni fican t. Only deficie ncies are associated with an increased thromboticrisk. [Automated mess age] The system [employer] generated this result transmit liya reference range : 60 - 140 % normal. The reference range was not used to interpret this result as normal/abnormal . RACQUEL (test code = Performing Lab EZ RACQUEL) [employer] [facility] [address] [place] [address] Daija Green MD, PhD, KRISHNA [facility] HospitalUrine [id number] 07:38:00 Test Item Value Reference Range Interpretation Comments Result (test code = See comment 6463-4) RACQUEL (test code = >100,000 col/mL enteric RACQUEL) organisms of >2 types. No further workup performed. Multiple organisms suggestive of colonization or contamination. Repeat collection recommended.40-49,000 col/mL skin beth [facility] HospitalURINE [id number] 07:38:00 Test Item Value Reference Range Interpretation Comments CULTURE (BEAKER) (test code = See comment 1095) >100,000 col/mL enteric organisms of >2 types. No further workup performed. Multiple organismssuggestive of colonization or contamination. Repeat collection recommended.40-49,000 col/mL skin [id number] 14:26:00 Test Item Value Reference Range Interpretation Comments RPR (test code = 26688-0) Nonreactive Nonreactive Lab Interpretation (test code = Normal 27727-5) [facility] [id number] 14:26:00 Test Item Value Reference Range Interpretation Comments RPR SCREEN (BEAKER) (test code = Nonreactive Nonreactive 420) Varicella Zoster Antibody, [id number] 14:12:00 Test Item Value Reference Range Interpretation Comments Varicella IgG (test 2.8 code = 73331-3) RACQUEL (test code = RACQUEL) VARICELLA ZOSTER RESULT INTERPRETATIONS: <=0.8 Al Nonreactive: Presumed non-immune to VZV 0.9-1.0 Al Equivocal >=1.1 Al Reactive: Presumed immune to VZV [facility] HospitalVARICELLA ZOSTER ANTIBODY, [id number] 14:12:00 Test Item Value Reference Range Interpretation Comments VARICELLA ZOSTER IGG (AL) (BEAKER) 2.8 (test code = 3197) VARICELLA ZOSTER RESULT INTERPRETATIONS: <=0.8 Al Nonreactive: Presumed non- immune to VZV 0.9-1.0Al Equivocal >=1.1 Al Reactive: Presumed immune to VZV Cytomegalovirus antibody, [id number] 13:54:00 Test Item Value Reference Range Interpretation Comments CYTOMEGALOVIRUS, IGG Positive Negative, A (test code = 3429) Equivocal RACQUEL (test code = RACQUEL) CMV IgG Result Interpretation: </= 0.8 Al Negative 0.9-1.0 Al Equivocal >/=1.1 Al Positive Lab Interpretation (test Abnormal code = 44132-6) [facility] HospitalEBV-VCA antibody, [id number] 13:54:00 Test Item Value Reference Range Interpretation Comments ALETA BOWLING VIRAL Positive Negative, A CAPSID ANTIGEN IGG (test Equivocal code = 3415) RACQUEL (test code = RACQUEL) Aleta Bowling Viral Capsid Antigen IgG Result Interpretation: </= 0.8 Al Negative 0.9-1.0 Al Equivocal >/= 1.1 Al Positive Lab Interpretation (test Abnormal code = 65966-5) [facility] HospitalEBV-VCA antibody, [id number] 13:54:00 Test Item Value Reference Range Interpretation Comments ALETA BOWLING VIRAL Negative Negative, CAPSID ANTIGEN IGM (test Equivocal code = 3418) RACQUEL (test code = RACQUEL) Aleta Bowling Viral Capsid Antigen IgM Result Interpretation: </= 0.8 Al Negative 0.9-1.0 Al Equivocal >/= 1.1 Al Positive Lab Interpretation (test Normal code = 59321-5) [facility] HospitalCytomegalovirus antibody, [id number] 13:54:00 Test Item Value Reference Range Interpretation Comments CMV IGM (test code = Negative Negative, 3437) Equivocal RACQUEL (test code = RACQUEL) CMV IgM Result Interpretation: </= 0.8 Al Negative 0.9-1.0 Al Equivocal >/= 1.1 Al Positive Lab Interpretation (test Normal code = 05202-8) [facility] HospitalCYTOMEGALOVIRUS ANTIBODY, [id number] 13:54:00 Test Item Value Reference Range Interpretation Comments CYTOMEGALOVIRUS, IGG (BEAKER) Positive Negative, Equivocal A (test code = 3429) CMV IgG Result Interpretation: </= 0.8 Al Negative 0.9-1.0 Al Equivocal >/=1.1 Al PositiveCYTOMEGALOVIRUS ANTIBODY, [id number] 13:54:00 Test Item Value Reference Range Interpretation Comments CYTOMEGALOVIRUS IGM ANTIBODY Negative Negative, Equivocal (BEAKER) (test code = 3437) CMV IgM Result Interpretation: </= 0.8 Al Negative 0.9-1.0 Al Equivocal >/= 1.1 Al PositiveEBV ANTIBODY, [id number] 13:54:00 Test Item Value Reference Range Interpretation Comments ALETA BOWLING VIRAL CAPSID Positive Negative, Equivocal A ANTIGEN IGG (BEAKER) (test code = 3415) Aleta Bowling Viral Capsid Antigen IgG Result Interpretation: </= 0.8 Al Negative 0.9-1.0 Al Equivocal >/= 1.1 Al PositiveEBV ANTIBODY, [id number] 13:54:00 Test Item Value Reference Range Interpretation Comments ALETA BOWLING VIRAL CAPSID Negative Negative, Equivocal ANTIGEN IGM (BEAKER) (test code = 3418) Aleta Bowling Viral Capsid Antigen IgM Result Interpretation: </= 0.8 Al Negative 0.9-1.0 Al Equivocal >/= 1.1 Al PositiveProtein C [id number] 10:42:00 Test Item Value Reference Range Interpretation Comments Protein C Activity (test code = 108.0 % 70-130 39720-0) Lab Interpretation (test code = Normal 83388-4) [facility] HospitalPROTEIN C [id number] 10:42:00 Test Item Value Reference Range Interpretation Comments PROTEIN C ACTIVITY (BEAKER) (test 108.0 % 70.0-130.0 code = 582) Hemoglobin [id number] 16:04:00 Test Item Value Reference Range Interpretation Comments Hemoglobin A1C (test code = 4548-4) 4.6 % 4.3-6.1 Lab Interpretation (test code = Normal 38237-0) [facility] HospitalHEMOGLOBIN [id number] 16:04:00 Test Item Value Reference Range Interpretation Comments HEMOGLOBIN A1C (BEAKER) (test code = 4.6 % 4.3-6.1 368) Hepatitis B surface [id number] 14:44:00 Test Item Value Reference Interpretation Comments Range Hep B S Ab (test 1462.6 See_Comment H [Automated code = 92297-7) message] The system which generated this result transmitted reference range : <8.0 mIU/mL. Th e reference range was not used to interpret this result as normal/abnormal . RACQUEL (test code = Staff Nurse ID - RACQUEL) ROSIANGOperator ID - ROSIANG Lab Interpretation Abnormal (test code = 21661-5) [facility] HospitalHEPAT[facility]IS [facility] SURFACE [id number] 14:44:00 Test Item Value Reference Range Interpretation Comments HEPATITIS B SURFACE ANTIBODY 1462.6 mIU/mL <8.0 H (BEAKER) (test code = 647) Staff Nurse ID - ROSIANGOperator ID - ROSIANGUrinalysis, [id number] 14:42:00 Test Item Value Reference Range Interpretation Comments Color, UA (test code Yellow = 5778-6) Clarity, UA (test Clear code = 5767-9) Specific [place], UA 1.012 1.001-1.035 (test code = 5811-5) pH, UA (test code = 8.0 5.0-8.0 5803-2) Protein, UA (test 70 mg/dL Negative A code = 47466-7) Glucose, UA (test Negative Negative code = 365) Ketones, UA (test Negative Negative code = 2514-8) Bilirubin, UA (test Negative Negative code = 95240-7) Blood, UA (test code Negative Negative = 71140-6) Nitrite, UA (test Negative Negative code = 5802-4) Leukocytes, UA (test Negative Negative code = 5799-2) Urobilinogen, UA 0.2 mg/dL 0.2-1 (test code = 57069-0) RBC, UA (test code = <1 See_Comment [Autom ated 50986-7) message] The system which generated this result [...] 4 See_Comment [Automate d (test code = 67559-0) messag e] The system which generated this result transmit liya reference range : /HPF. The reference range was not used to interpret this result as normal/abnormal . Hyaline Casts, UA 1 See_Comment [Automate d (test code = 14535-8) messag e] The system which generated this result transmit liya reference range : /LPF. The reference range was not used to interpret this result as normal/abnormal . Specimen Source (test code = 2795) RACQUEL (test code = RACQUEL) Staff Nurse ID - [auto]Staff Nurse ID - tech Lab Interpretation Abnormal (test code = 84650-9) [facility]URINALYSIS W/ [id number] 14:42:00 Test Item Value Reference Range Interpretation [...] /LPF 514) SOURCE(BEAKER) (test code = 2795) Staff Nurse ID - [auto]Staff Nurse ID - techHepatitis B surface [id number] 14:30:00 Test Item Value Reference Range Interpretation Comments HBsAg Screen (test code Nonreactive Nonreactive = 5195-3) RACQUEL (test code = RACQUEL) Specimen is considered negative for HBsAg. Lab Interpretation (test Normal code = 58725-1) [facility] HospitalHepatitis B core antibody, [id number] 14:30:00 Test Item Value Reference Range Interpretation Comments Hep B C IgM (test code = Nonreactive Nonreactive 43749-8) RACQUEL (test code = RACQUEL) Staff Nurse ID - BJ Lab Interpretation (test Normal code = 79518-1) [facility] HospitalHep[facility] [id number] 14:30:00 Test Item Value Reference Range Interpretation Comments Hepatitis C Ab (test Nonreactive Nonreactive code = 80401-9) RACQUEL (test code = RACQUEL) Staff Nurse ID - BJ Lab Interpretation (test Normal code = 20959-4) [facility]HIV-1 Antigen with HIV-1/2 [id number] 14:30:00 Test Item Value Reference Range Interpretation Comments HIV-1 Antigen with HIV Nonreactive Nonreactive 1&2 Antibody (test code = 05917-2) RACQUEL (test code = RACQUEL) Staff Nurse ID - NOELG Lab Interpretation (test Normal code = 43176-5) [facility]HEPAT[facility]IS [facility] SURFACE [id number] 14:30:00 Test Item Value Reference Range Interpretation Comments HEPATITIS B SURFACE ANTIGEN (2) Nonreactive Nonreactive (BEAKER) (test code = 2585) Specimen is considered negative for HBsAg.HEPATITIS B CORE ANTIBODY, IGM 2020-10-07 14:30:00 Test Item Value Reference Range Interpretation Comments HEPATITIS B CORE IGM ANTIBODY Nonreactive Nonreactive (BEAKER) (test code = 645) Staff Nurse ID - YOVANNYMARGIEPATITIS C [id number] 14:30:00 Test Item Value Reference Range Interpretation Comments HEPATITIS C ANTIBODY (BEAKER) Nonreactive Nonreactive (test code = 367) Staff Nurse ID - NOELGHIV-1 ANTIGEN WITH HIV-1/2 [id number] 14:30:00 Test Item Value Reference Range Interpretation Comments HIV-1 ANTIGEN WITH HIV 1\T\2 Nonreactive Nonreactive ANTIBODY (2) (MELONIE) (test code = 2586) Staff Nurse ID - NOELGAntithrombin [id number] 14:04:00 Test Item Value Reference Range Interpretation Comments Antithrombin III (test code = 58314-1) 94.0 % 80-120 Lab Interpretation (test code = Normal 64532-0) [facility] HospitalANTITHROMBIN [id number] 14:04:00 Test Item Value Reference Range Interpretation Comments ANTITHROMBIN III ACTIVITY (MELONIE) 94.0 % 80.0-120.0 (test code = 711) Direct [facility] (JOHANN)/Direct [id number] 13:47:00 Test Item Value Reference Range Interpretation Comments Direct [facility]HG-IGG (test code = 1006-6) NEGATIVE Direct [facility]-C3B, C3D (test code = NEGATVIE 1003-3) [facility] HospitalComprehensive metabolic [id number] 13:42:00 Test Item Value Reference Range Interpretation Comments Protein, Total (test 6.9 See_Comment [Autom ated code = 2885-2) message] The system which generated this result transmit liya reference range : 6.0 - 8.3 gm/dL . The reference range was not u sed to interpret th is result as normal/abnormal . Albumin (test code = 3.9 g/dL 3.5-5 26750-9) Alkaline Phosphatase 65 U/L 40-150 (test code = 6768-6) Total Bilirubin (test 0.3 mg/dL 0.2-1.2 code = 1975-2) Sodium (test code = 140 meq/L 767-555 3517-2) Potassium (test code 4.2 meq/L 3.5-5.1 = 2823-3) Chloride (test code = 102 meq/L 98-107 5-0) CO2 (test code = 23 meq/L 22-29 2027-9) BUN (test code = 39 mg/dL 7-21 H 3094-0) Creatinine (test code 9.59 mg/dL 0.57-1.25 H = 2160-0) Glucose (test code = 91 mg/dL 70-105 2345-7) Calcium (test code = 8.5 mg/dL 8.4-10.2 41511-1) AST (test code = 16 U/L 5-34 1920-8) ALT (test code = 11 U/L 6-55 1742-6) EGFR (test code = 6 mL/min/1.73 [place] [address]-4) NOT ACCURATE CREATININE CLEARANCE IN PREDICTING GLOMERULAR FILTRATION RATE . ESTIMATED GFR I S NOT APPLICABLE FOR DIALYSIS PATIEN TS. RACQUEL (test code = RACQUEL) Staff Nurse ID - ROSIANG Lab Interpretation Abnormal (test code = 24044-5) [facility]OL[facility] [id number] 13:42:00 Test Item Value Reference Range Interpretation [...] S NOT APPLICABLE FOR DIALYSIS PATIEN TS. Staff Nurse ID - ROSIANGGamma Glutamyl Transferase (GGT)2020-10-07 13:37:00 Test Item Value Reference Range Interpretation Comments GGT (test code = 2324-2) 21 U/L 9-64 RACQUEL (test code = RACQUEL) Staff Nurse ID - ROSIANG Lab Interpretation (test Normal code = 47482-7) [facility]2021-[facility] 13:37:00 Test Item Value Reference Range Interpretation Comments Phosphorus (test code = 5.7 mg/dL 2.3-4.7 H 2777-1) RACQUEL (test code = RACQUEL) Staff Nurse ID - ROSIANG Lab Interpretation (test Abnormal code = 09871-2) [facility] HospitalUric [id number] 13:37:00 Test Item Value Reference Range Interpretation Comments Uric Acid (test code = 8.4 mg/dL 2.6-7.2 H 3084-1) RACQUEL (test code = RACQUEL) Staff Nurse ID - ROSIANG Lab Interpretation (test Abnormal code = 14282-7) [facility]PHOS[facility]ORUS2021-04-27 13:37:00 Test Item Value Reference Range Interpretation Comments PHOSPHORUS (BEAKER) (test code = 5.7 mg/dL 2.3-4.7 H 604) Staff Nurse ID - ROSIANGURIC [id number] 13:37:00 Test Item Value Reference Range Interpretation Comments URIC ACID (BEAKER) (test code = 8.4 mg/dL 2.6-7.2 H 773) Staff Nurse ID - ROSIANGGAMMA GLUTAMYL TRANSFERASE (GGT)2020-10-07 13:37:00 Test Item Value Reference Range Interpretation Comments GAMMA GLUTAMYL TRANSFERASE (BEAKER) 21 U/L 9-64 (test code = 364) Staff Nurse ID - ROSIANGPTH, [id number] 13:36:00 Test Item Value Reference Range Interpretation Comments PTH (test code = 2731-8) 466.5 pg/mL 8.5-72.5 H RACQUEL (test code = RACQUEL) Staff Nurse ID - BJ Lab Interpretation (test Abnormal code = 92710-7) [facility] HospitalPTH, [id number] 13:36:00 Test Item Value Reference Range Interpretation Comments PARATHYROID HORMONE INTACT 466.5 pg/mL 8.5-72.5 H (BEAKER) (test code = 577) Staff Nurse ID - NOELGPT/[id number] 13:34:00 Test Item Value Reference Interpretation Comments Range Protime (test code = 13.9 See_Comment [Autom ated 5902-2) message] The system which generated this result transmitted reference range : 11.9 - 14.2 seconds. The reference range was not used to interpret this result as normal/abnormal . INR (test code = 1.11 See_Comment [Automated 4521-6) message] The system which generated this result transmitted reference range : <=5.90. The reference range was not used to interpret this result as normal/abnormal . PTT (test code = 37.1 See_Comment H [Automated 91560-5) message] The system which generated this result [...] valves. Lab Interpretation Abnormal (test code = 56499-8) [facility] HospitalPT/[id number] 13:34:00 Test Item Value Reference Range Interpretation [...] is 2.5-3.5 for patients wiht mechanical heart valves.Prothrombin time/[id number] 13:33:00 Test Item Value Reference Interpretation Comments Range Protime (test code = 13.9 See_Comment [Autom ated 6992-2) message] The system which generated this result transmitted reference range : 11.9 - 14.2 seconds. The reference range was not used to interpret this result as normal/abnormal . INR (test code = 1.11 See_Comment [Automated 8311-6) message] The system which generated this result [...] valves. Lab Interpretation Normal (test code = 72900-5) [facility] HospitalABORH, [id number] 13:33:00 Test Item Value Reference Range Interpretation Comments ABO Grouping (test code = 2588) O Rh Factor (test code = 2589) POS [facility] HospitalPROTHROMBIN TIME/[id number] 13:33:00 Test Item Value Reference Range Interpretation Comments PROTIME (BEAKER) 13.9 seconds 11.9-14.2 (test code = 759) INR (BEAKER) (test 1.11 See_Comment [Automat ed message] code = 370) The system [employer] generated this result transmitted ref erence range: <=5.90. The reference range was not used to int erpret this result as normal/abnormal . Effective 11/08/2018: PT Reference Range ChangeNew: 11.9-14.2 Previous: 11.7- 14.7RECOMMENDED COUMADIN/WARFARIN INR THERAPY RANGESSTANDARD DOSE: 2.0-3.0 Includes: PROPHYLAXIS for venous thrombosis, systemic embolization; TREATMENT for venous thrombosis and/or pulmonary embolus.HIGH RISK: Target INR is 2.5-3.5 for patients wiht mechanical heart valves.CBC with platelet count + automated [id number] 13:05:00 Test Item Value Reference Range Interpretation Comments WBC (test code = 6690-2) 6.4 See_Comment [A utomated message] The system [employer] [facility] generated this result transmitted ref erence range: 3.5 - 10 .5 K/L. The refe rence range was not u sed to interpret this result as normal/abnor mal. RBC (test code = 789-8) 2.95 See_Comment L [Au tomated message] The system [employer] generated this result transmitted ref erence range: 3.93 - 5 .22 M/L. The refe rence range was not u sed to interpret this result as normal/abnor mal. MCHC (test code = 786-4) 31.4 See_Comment L [A utomated message] The system [facility] generated this result transmitted ref erence range: [...] See_Comment [Aut omated message] 777-3) The system [employer] generated this result transmitted ref erence range: 150 - 45 0 K/CU MM. The referen ce range was not u sed to interpret this result as normal/abnor mal. MPV (test code = 9.7 fL 9.4-12.3 26122-2) nRBC (test code = 413) 0 See_Comment [Aut omated message] The system [facility] generated this result transmitted ref erence range: [...] See_Comment [Aut omated message] 670) The system [facility] generated this result transmitted ref erence range: 1.56 - 6 .13 K/L. The refe rence range was not u sed to interpret this result as normal/abnor mal. # Lymphs (test code = 1.43 See_Comment [Auto mated message] 414) The system [facility] generated this result transmitted ref erence range: 1.18 - 3 .74 K/L. The refe rence range was not u sed to interpret this result as normal/abnor mal. # Monos (test code = 0.48 See_Comment H [Autom ated message] 415) The system [facility] generated this result transmitted ref erence range: 0.24 - 0 .36 K/L. The refe rence range was not u sed to interpret this result as normal/abnor mal. # Eos (test code = 416) 0.28 See_Comment [Au tomated message] The system [facility] generated this result transmitted ref erence range: 0.04 - 0 .36 K/L. The refe rence range was not u sed to interpret this result as normal/abnor mal. # Baso (test code = 417) 0.04 See_Comment [A utomated message] The system [facility] generated this result transmitted ref erence range: 0.01 - 0 .08 K/L. The refe rence range was not u sed to interpret this result as normal/abnor mal. Immature 0 % 0-1 Granulocytes-Relative (test code = 2801) Lab Interpretation (test Abnormal code = 49952-2) [facility] W/PLT COUNT & AUTO [id number] 13:05:00 Test Item Value Reference Range Interpretation [...] (BEAKER) (test code = 2801) T SPOT [id number] 14:01:00 Test Item Value Reference Range Interpretation Comments T-SPOT TB (BEAKER) (test code = Negative 1683) NEG CONTROL SPOT COUNT (BEAKER) 0 (test code = 1684) PANEL A SPOT (BEAKER) (test code = 0 1685) PANEL B SPOT (BEAKER) (test code = 0 1686) POS CONTROL SPOT CT (BEAKER) (test 0 code = 1687) SCAN RESULT (test code = 6966053) See Scanned ReportECG 12 [id number] 13:44:09Interface, External Ris In - 09/25/2020 1:44 PM CDTVentricular Rate 75 BPMAtrial Rate 75 BPMP-R Interval 154 msQRS Duration 86 msQ-T Interval 442 msQTC Calculation(Bazett) 493 msP [place] 73 degreesR Axis83 degreesT [place] 64 degreesNormal sinus rhythmRight atrial enlargementProlonged QTAbnormal ECGNo previous ECGs availableConfirmed by MD Guzman Roberto ([id number]) on 09/25/2020 1:44:07 [facility] HospitalUS, PELVIS, WITH [id number] 13:22:00Reason for Exam:->to assess iliac vesselsKidney Transplant Evaluation [facility] QUINONESKARMARENUKA MITCH : 1985 Sex: FFINAL REPORT TECHNIQUE: [...] and 0.9 cm on the left.Neither internal iliacartery is clearly visualized. Normal velocities and waveforms in the distal aorta and visualized bilateral iliac arteries. Bilateral common, bilateral external, and right internal iliac veins are patent. Left internal iliac vein is not clearly visualized. IMPRESSION:Unremarkable Doppler ultrasound of the visualized bilateral iliac vessels. Signed: Cindy Wright MDReport Verified Date/Time: 09/25/2020 13:22:46 US pelvis with [id number] 13:22:00Interface, External Ris In - 09/25/2020 1:24 PM CDTFINAL REPORT TECHNIQUE: Grayscale, color Doppler, and spectral Doppler ultrasound of the distal aorta and bilateral iliac arteries. INDICATION: 35-year-old woman for renal transplant evaluation. COMPARISON: None. FINDINGS: Distal abdominal aorta is patent and measures 1.7 cm. Common iliac arteries are patent and measure 1.2 cm onthe right and 1.2 cm on the left.External [...] Cindy Wright MDReport Verified Date/Time: 09/25/2020 13:22:46 [facility] HospitalUS, ABDOMINAL, [id number] 13:01:00Reason for Exam:->Kidney Transplant EvaluationJ[facility] : 1985 Sex: FFINAL REPORT TECHNIQUE: Grayscale ultrasound of the abdomen. INDICATION: 35-year-old woman for renal transplant evaluation. COMPARISON: None. FINDINGS: MIDLINE VASCULATURE: Visualized inferior vena cava is patent. Main portal vein is patent. Maximum visualized aortic diameter is 2.3 cm. LIVER: Liver is normal in size and echogenicity with smooth contour. No focal lesion. PAMELA IARY:Gallbladder: No gallstones or sludge. No gallbladder wall thickening, pericholecystic fluid, ordistention. Reported negative sonographic Cooper sign.Common bile duct [...] mass or cyst. Signed: Cindy Wright MDReport Verified Date/Time: 09/25/2020 13:01:08 US abdomen [id number] 13:01:00Interface, External Ris In - 09/25/2020 1:03 PM CDTFINAL REPORT TECHNIQUE: Grayscale ultrasound of the abdomen. INDICATION: 35-year-old woman for renal transplant evaluation. COMPARISON: None. FINDINGS: MIDLINE VASCULATURE: Visualized inferior vena cava is patent. Main portal veinis patent. Maximum visualized aortic diameter is 2.3 [...] measures 7.4 x 2.7 x 4.9 cm withcortical thickness of 0.7 cm. Left kidney measures 8.1 x 4.3 x 3.6 cm with cortical thickness of 1.1cm. No hydronephrosis. No sonographically evident mass or cyst. IMPRESSION:Mildly echogenic kidneys,consistent with medical renal disease. No sonographically evident renal mass or cyst. Signed: Cindy Wright MDReport Verified Date/Time: 09/25/2020 13:01:08 [facility] HospitalLIPID PANEL 2020-09-25 12:42:00 Test Item Value Reference Range Interpretation Comments TRIGLYCERIDES (BEAKER) (test code = 78 mg/dL 540) CHOLESTEROL (BEAKER) (test code = 151 mg/dL 631) HDL CHOLESTEROL (BEAKER) (test code 44 mg/dL = 976) LDL CHOLESTEROL CALCULATED (AKER) 91 mg/dL (test code = 633) Triglyceride Reference Range: Low Risk <150 Borderline 150-199 High Risk 200- 499 Very High Risk >=500Cholesterol Reference Range: Low Risk <200 Borderline 200-239 High Risk >240HDL Cholesterol Reference Range: Low Risk >=60 High Risk <40LDL Cholesterol Reference Range: Optimal <100 Near Optimal 100-129 Borderline 130-159 High 160-189 Very High >=190 Staff Nurse WILMAN - [id number] Echo W/Doppler(CW/PW/Color)2020-09-25 10:35:55Ejection FractionSLEH ECHO HEARTLAB MKCKESSON CPACSInterface, External Ris In - 09/25/2020 10:36 AM C DTTransthoracic Echocardiography Report (TTE) Demographics Patient Name MARIANA QUINONES Date of Study 09/25/2020 RAMONA MEYER Gender Female Visit Number [id number] Race Black Room Number OP Number Date of 1985 Referring Anderson Zamora Physician Bunny Age 35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 Atrial septal position continuously bows athy-kj-cxpgx, consistent with elevated LA pressure . Vomr-ty-hukdgzsr tricuspid regurgitation. Estimated peak systolicPA pressure is 60-65 mmHg . Signature Findings Left Ventricle The left ventricle is chamber size (by vol index) is moderately enlarged (female - LVED vol -71-80ml/m2). Mild concentric LV hypertrophy. All of the LV segments contract normally . LVEF by Mckeon's method of disk as sessment is normal (> 60%) . Degree of diastolic dysfunction (LAP assessment) is inconclusive dueto significant MR . Left Atrium LA size is severely enlarged (>48 ml/m2) . Right Ventricle The right ventricular chamber size and systolic function are within normal limits. Right Atrium RA size is mildly dilated. Atrial Septum Atrial septal position continuously bows wyjf-hi-djygm, consistent withelevated LA pressure . Aortic Valve Normal AoV structure. There is trace aortic regurgitation. Mitral Valve Mild MV leaflet thickening. At least moderate eccentric posteriorly directed mitral regurgitation. Tricuspid Valve TV structure is normal. Nnem-qx-vocdhmpj tricuspid regurgitation. Estimated peak systolic PA pressure is 60-65 mmHg . Peak systolic pressure may be underestimated; partial TR signal. Pulmonic Valve Normal PV structure appears normal by available views. A trace of pulmonary regurgitation. Pericardium No pericardial effusion is visualized. IVC/SVC/PA/PV/Pleural The estimated RA pr essure by IVC dynamics 11-15mmHg . Pulmonary vein flow is consistent with increased LAP but no systolic reversal noted. Chambers/Structures Left Atrium LA Dimension: 5.25 cm LA Area: 30.53 cm^2 LA Volume: 112.54 ml LA Vol. Index: 68 ml/m^2 Left Ventricle LVIDd: 5.31 cm LVIDs: 3.49 cm LV Septum Diastolic: 1.22 cm LV PW Diastolic: 1.39 cm LV FS: 34.3 % LVEDV Mckeon's:120.06 ml LVESV Mckeon's:46.7 ml LVEDVI: 72 ml/m^2 LVEF Mckeon's: 61.1 % LVESVI: 28 ml/m^2 LVOT Diameter: 2.01 cm Aorta Ao Root S of Johana.: 2.94 cm Doppler/Quantitative Measurements LVOT Peak Velocity: 1.46 m/s Peak Gradient: 8.49 mmHg Mean Velocity: 0.9 m/s Mean Gradient: 3.9 mmHg LVOT Diameter: 2.01 cm LVOT VTI: 26.63 cm LVOT Area: 3.17 cm^2 LVOT SV:84.46 ml LVOT CO: 6.17 l/min LVOT CI: 3.72 l/min/m^2CH[facility] HospitalRAD, CHEST, 2 [id number] 10:28:00Reason for Exam:->Kidney Transplant Evaluation [facility] : 1985 Sex: FFINAL REPORT EXAMINATION: RAD, CHEST, 2 VIEWS INDICATION: Kidney Transplant Evaluation COMPARISON: None FINDINGS:TUBES and LINES: None. LUNGS: Lungs are well inflated. Lungsare clear. There is no evidence of pneumonia or pulmonary edema. PLEURA: No pleural effusion or pneumothorax. HEART AND MEDIASTINUM: The cardiomediastinal silhouette is prominent. BONES AND SOFT TISSUES: No acute osseous lesion. Soft tissues are unremarkable. UPPER ABDOMEN: No free air under the diaphragm. IMPRESSION: Prominent heart size. No consolidated pneumonia, pleural effusion or pneumothorax. Signed: Zina Pierre MDReport Verified Date/Time: 09/25/2020 10:28:23 Reading Location: [facility] Reading Room [address] [place] [address] XR chest 2 [id number] 10:28:00Interface, External Ris In - 09/25/2020 10:30 AM CDTFINAL REPORT EXAMINATION: RAD, CHEST, 2 VIEWS INDICATION: Kidney Transplant Evaluation COMPARISON: None FINDINGS:TUBES and LINES: None. LUNGS: Lungs are well inflated. Lungs are clear. There is no evidence of pneumonia or pulmonary edema. PLEURA: No pleural effusion or pneumothorax. HEART AND MEDIASTINUM: The cardiomediastinal si lhouette is prominent. BONES AND SOFT TISSUES: No acute osseous lesion. Soft tissues are unremarkable. UPPER ABDOMEN: No free air under the diaphragm. IMPRESSION: Prominent heart size. No consolidated pneumonia, pleural effusion or pneumothorax. Signed: Zina Pierre MDReport Verified Date/Time: 09/25/2020 10:28:23 Reading Location: [facility] Reading Room [address] [place] [address] [facility] HospitalUR HCG [id number] 14:34:00 Test Item Value Reference Range Interpretation Comments UR HCG QUAL (test code = HCGQLU) NEGATIVE NEGATIVE COVID 19 Asymptomatic IH [id number] 12:06:00 Test Item Value Reference Range Interpretation [...] COMMENTS: If not done this admissionBASIC METABOLIC [id number] 11:25:00 Test Item Value Reference Range Interpretation [...] = 8.3 mg/dL 8.0-10.5 N CA) PROTHROMBIN [id number] 11:22:00 Test Item Value Reference Range Interpretation Comments PROTHROMBIN TIME 12.2 SECONDS 9.3-12.9 N PATIENT (test code = PTP) INTERNATIONAL NORMAL 1.1 0.8-1.2 N TARGET INR BY RATIO (test code = INDICATIO N Indication INR) INR1. Prophylax is of venous thrombos is 2.0 - 3.0 (orthoped ic surgery), Proph ylaxis of venous throm bosis (other than hig h-risk surgery), Treat ment of Deep Vein Thrombosis/Pulm onary Embolism, Preve ntion of systemic emb olism - Tissue heart va lves, Acute Myocardia l Infarction (to prevent systemic emboli sm), Valvular heart disease, Atrial Fibrillation, Bileaflet mecha nical valve in aortic position.2. Mec hanical prosthetic valv es (high risk), 2. 5 - 3.5 Presence of Lup us Anticoagulant o r Antiphospholipi d Antibodies, Pre vention of systemic emb olism - Acute Myocardia l Infarction (to prevent recurrent infar ct). CBC W/AUTO [id number] 11:20:00 Test Item Value Reference Range Interpretation [...] NO = MDIFF) - XR CHEST 1 [id number] 11:15:00 [facility] : 1985 Sex: F FAX: Abimael Gallardo MD [phone] [place]: St: REG Name: MARIANA QUINONES [facility] [place] : 1985 Age/S: 35/F [address] [place] [address] Unit #: [id number] Loc: [place] [address] Phys: Abimael Isaac MD Acct: [id number] Dis Date: Status: REG [facility] PHONE #: [phone] Exam Date: 06/03/2020 1052 FAX #: [phone] Reason: PRE-OP EXAMS: CPT CODE: [id number] XR CHEST 1 V 37455 EXAM: XR CHEST 1 VIEW DATE: 06/03/2020 9:40 AM : 1985; Age: 35 years y/o Female INDICATION: AVF malfunction, PRE-OP COMPARISON: March 25, 2020 TECHNIQUE: AP chest. IMPRESSION: Lines, tubes and hardware: Stable. Heart, mediastinum and lungs: Heart appears borderline enlarged. No consolidation or pleural effusion is seen. No pneumothorax. SL: [id number] at 1115 Reported and signed by: Marcy Montes D.O. CC: Abimael Isaac MD Technologist: RT Faheem(Joshua) Trnbethany Date/Time/By: 06/03/2020 (1115) : By: [email or web address] Orig Print D/T: S: 06/03/2020 (2346) PAGE 1 Signed ReportCBC W/AUTO [id number] 11:13:00 Test Item Value Reference Range Interpretation [...] DIFF REQUIRED (test code = MDIFF) PROTHROMBIN [id number] 11:57:00 Test Item Value Reference Range Interpretation Comments PROTHROMBIN TIME 11.4 SECONDS 9.3-12.9 N PATIENT (test code = PTP) INTERNATIONAL NORMAL 1.0 0.8-1.2 N TARGET INR BY RATIO (test code = INDICATIO N Indication INR) INR1. Prophylax is of venous thrombos is 2.0 - 3.0 (orthoped ic surgery), Proph ylaxis of venous throm bosis (other than hig h-risk surgery), Treat ment of Deep Vein Thrombosis/Pulm onary Embolism, Preve ntion of systemic emb olism - Tissue heart va lves, Acute Myocardia l Infarction (to prevent systemic emboli sm), Valvular heart disease, Atrial Fibrillation, Bileaflet mecha nical valve in aortic position.2. Mec hanical prosthetic valv es (high risk), 2. 5 - 3.5 Presence of Lup us Anticoagulant o r Antiphospholipi d Antibodies, Pre vention of systemic emb olism - Acute Myocardia l Infarction (to prevent recurrent infar ct). BASIC METABOLIC [id number] 11:39:00 Test Item Value Reference Range Interpretation [...] 9.9 mg/dL 8.0-10.5 N CA) HCG SERUM [id number] 11:23:00 Test Item Value Reference Range Interpretation Comments HCG SERUM QUAL (test code = SERUM NEGATIVE NEGATIVE HCGQL) CBC W/AUTO [id number] 11:17:00 Test Item Value Reference Range Interpretation [...] (test code NO = MDIFF) CBC W/AUTO [id number] 11:15:00 Test Item Value Reference Range Interpretation [...] code = MDIFF) - XR CHEST 1 [id number] 11:04:00 FAX: Abimael Gallardo MD [phone] [place]: St: REG Name: MARIANA QUINONES [facility] : 1985 Age/S: 34/F [address] [place] [address] Unit #: [id number] Loc: [place] [address] Phys: Abimael Isaac MD Acct: [id number] Dis Date: Status: REG [facility] PHONE #: [phone] Exam Date: 03/25/2020 1103 FAX #: [phone] Reason: PRE OP EXAMS: CPT CODE: [id number] XR CHEST 1 V 25161 PROCEDURE: CHEST SINGLE VIEW INDICATION: PRE OP; ESRD COMPARISON: March 2014 FINDINGS: TUBES AND LINES: Tunneled right hemodialysis catheter tip at the level of mid superior vena cava. CHEST: The lungs are clear. The pleural, cardiomediastinal silhouette, and bony thorax are normal. IMPRESSION: No acute findings. SL: [id number] at 1104 Reported and signed by: Josesito Tolentino M.D. CC: Abimael Isaac MD Technologist: More LamaRT(R) Trnscrd Date/Time/By: 03/25/2020 (0270) : By: GalloKWL Orig Print D/T: S: 03/25/2020 (3896) PAGE 1 Signed ReportCOVID 19 Asymptomatic IH [id number] 10:59:00 Test Item Value Reference Range Interpretation [...]
[2022-05-07 09:05] LABS: Protime INR 1.26
[2022-05-07 09:06] LABS: Absolute Lymphocytes (CBC) 1.1 K/uL (0.7-4.9); Hematocrit 36.8 % (36.0-45.0); Lymphocytes % 13.6 % (15.3-44.8); MCV 91.8 fL (80-100); MPV 8.4 fL (7.6-11.3); RBC Red Blood Cell Count 4.01 M/uL (3.86-4.86)
[2022-05-07] MEDS ORDERED: ONDANSETRON 4 MG/2 ML VIAL ONE (09:06)
[2022-05-07] MEDS ORDERED: FENTANYL CITR 100 MCG/2 ML ONE (09:06)
[2022-05-07] MEDS ORDERED: FAMOTIDINE 20 MG/2 ML VIAL IV ONE (09:06)
--- NOTE | 2022-05-07 09:12 | RAD REPORT ---
EXAM DESCRIPTION: Joseph Single View05/07/2022 8:30 am CLINICAL HISTORY: Chest pain COMPARISON: August 2021 FINDINGS: The lungs appear clear of acute infiltrate. The heart is moderately to markedly enlarged IMPRESSION: No acute abnormalities displayed
[2022-05-07 09:25] LABS: SARS-COV-2 RT PCR NEGATIVE (NEGATIVE)
[2022-05-07 09:36] LABS: Bilirubin Direct 0.2 mg/dL (0-0.2); Bilirubin Total 0.6 mg/dL (0.2-1.0); Magnesium 2.3 mg/dL (1.8-2.4); Potassium 3.8 mmol/L (3.5-5.1); Protein, Total 6.8 g/dL (6.4-8.2)
[2022-05-07 09:40] LABS: Troponin High Sensitivity 145.9 pg/mL (<58.9)
--- NOTE | 2022-05-07 11:02 | ER ---
Nurse's Notes [facility] Name: Nely Quinones Age: 37 yrs Sex: Female : 1985 Arrival Date: 05/07/2022 Time: 08:07 Bed 14 Private MD: Diagnosis: Chest pain, unspecified;Elevated troponin;End stage renal disease;Fluid overload, unspecified Presentation: 05/07 08:07 Chief complaint: Patient states: chest pain/ epigastric pressure that began last night. ss Last dialyzed on Tuesday. VS 120/71. HR 69, 100% on RA, BGL 125. Coronavirus screen: Client denies travel out of the [place] in the last 14 days. Ebola Screen: Patient denies exposure to infectious person. Patient denies travel to an Ebola-affected area in the 21 days before illness onset. Initial Sepsis Screen: Does the patient meet any 2 criteria? No. Patient's initial sepsis screen is negative. Does the patient have a suspected source of infection? No. Patient's initial sepsis screen is negative. Risk Assessment: Do you want to hurt yourself or someone else? Patient reports no desire to harm self or others. Onset of symptoms was May 06, 2022. 08:07 Method Of Arrival: EMS: [facility] ss 08:07 Acuity: LORENA 2 ss Historical: - Allergies: 08:08 No Known Allergies; ss - PMHx: 08:08 Asthma; dialysis L arm access; Hypertensive disorder; RENAL FAILURE; ss - Immunization history:: Client reports having NOT received the Covid vaccine. - Social history:: Smoking status: Patient reports the use of cigarette tobacco products, denies chronic smoking, but will smoke occasionally. Screenin:24 Abuse screen: Denies threats or abuse. Denies injuries from another. Nutritional ss screening: No deficits noted. Tuberculosis screening: Never had TB. Fall Risk None identified. Assessment: 08:24 Reassessment: XRAY at bedside. Pt on all monitors. ss 09:15 Pain: Complains of pain in abdomen Pain does not radiate. Cardiovascular: Patient's kr3 skin is warm and dry. 09:53 General: Appears distressed, uncomfortable. kr3 Vital Signs: 08:17 BP 120 / 81; Pulse 68; Resp 22; Temp 97.6(O); Pulse Ox 97% on R/A; Weight 63.5 kg; ss Height 5 ft. 2 in. (157.48 cm); Pain 10/10; 09:15 BP 115 / 77; Pulse 70; Resp 28; Pulse Ox 100% on R/A; kr3 09:45 Pulse Ox 88% on R/A; kr3 09:54 BP 119 / 94; Pulse 66; Resp 24; Pulse Ox 94% on 3 lpm NC; kr3 08:17 Body Mass Index 25.61 (63.50 kg, 157.48 cm) ED Course: 08:07 Patient arrived in ED. ss 08:08 Triage completed. ss 08:08 Arm band placed on right wrist. ss 08:10 Oscar Shultz MD is Attending Physician. [facility] 08:11 Fabiola Nation FNP-C is PHCP. snw 08:24 Patient has correct armband on for positive identification. Bed in low position. Call ss light in reach. Side rails up X2. Client placed on continuous cardiac and pulse oximetry monitoring. NIBP monitoring applied. Warm blanket given. 08:24 Patient maintains SpO2 saturation greater than 95% on room air. ss 08:32 XRAY Chest (1 view) In Process Unspecified. EDMS 08:42 Inserted saline lock: 22 gauge in right forearm, using aseptic technique. Blood ss collected. 09:00 Mel Castrejon, CHELA is Primary Nurse. kr3 09:43 Notified ED physician of a critical lab result(s). creatinine 5.47, troponin 145.9. kr3 10:04 put patient on 3 lpm due to oxygen saturation at 88 on room air. kr3 11:01 Toby Neil MD is Hospitalizing Provider. snw 11:20 Troponin High Sensitivity Sent. kr3 14:01 Urine collected: clean catch specimen, cloudy. tm3 17:24 Urine --Ancillary (enter results) Sent. kr3 18:57 No provider procedures requiring assistance completed. Patient admitted, IV remains in kr3 place. Administered Medications: 09:25 Drug: fentaNYL (PF) 25 mcg Route: IVP; Site: right forearm; kr3 09:25 Drug: Zofran (Ondansetron) 4 mg Route: IVP; Site: left forearm; kr3 09:25 Drug: Pepcid (famotidine) 20 mg Route: IVP; Site: left forearm; kr3 17:24 Not Given (patient did not tolerate first dose, RR dropped to 7): fentaNYL (PF) 25 mcg kr3 IVP once Medication: 08:24 VIS not applicable for this client. ss Outcome: 11:02 Decision to Hospitalize by Provider. snw 18:57 Admitted to ER Hold. Please see [facility] for further documentation. kr3 05/08 16:07 Patient left the ED. jl7 Signatures: Dispatcher [employer] EDMS Nikia Lucas tm3 Oscar Shultz MD MD cha Waters, Shelly, SIGNAL SYSTEM TESTING MAINTAINER-C SIGNAL SYSTEM TESTING MAINTAINER-Csnw Katarzyna Ramos RN RN ss Tarik Shepherd RN RN jl7 Mel Castrejon RN RN kr3 Corrections: (The following items were deleted from the chart) 05/07 08:17 08:07 Acuity: LORENA 3 ss ss
--- NOTE | 2022-05-07 11:02 | EDPHYS ---
Physician Documentation [facility] Name: Nely Quinones Age: 37 yrs Sex: Female : 1985 Arrival Date: 05/07/2022 Time: 08:07 Bed 14 Private MD: ED Physician Oscar Shultz HPI: 05/07 08:19 This 37 yrs old Black Female presents to ER via EMS with complaints of Chest Pain. snw 08:19 Onset: The symptoms/episode began/occurred acutely. Associated signs and symptoms: snw Pertinent positives: vomiting, back pain. Modifying factors: The patient symptoms are alleviated by nothing. It is unknown whether or not the patient has had similar symptoms in the past. It is unknown whether or not the patient has recently seen a physician. Pt normally rec's dialysis Tue, , Tue. She rec'd last dialysis Tuesday to . She sees Dr. Monge. Historical: - Allergies: 08:08 No Known Allergies; ss - PMHx: 08:08 Asthma; dialysis L arm access; Hypertensive disorder; RENAL FAILURE; ss - Immunization history:: Client reports having NOT received the Covid vaccine. - Social history:: Smoking status: Patient reports the use of cigarette tobacco products, denies chronic smoking, but will smoke occasionally. ROS: 08:18 Eyes: Negative for injury, pain, redness, and discharge, ENT: Negative for injury, snw pain, and discharge, Neck: Negative for injury, pain, and swelling. 08:18 Respiratory: Negative for shortness of breath, cough, wheezing, and pleuritic chest pain. 08:18 : Negative for injury, bleeding, discharge, and swelling, MS/Extremity: Negative for injury and deformity, Skin: Negative for injury, rash, and discoloration, Neuro: Negative for headache, weakness, numbness, tingling, and seizure, Psych: Negative for depression, anxiety, suicide ideation, homicidal ideation, and hallucinations. 08:18 Constitutional: Positive for body aches, malaise. 08:18 Cardiovascular: Positive for chest pain, of the chest. 08:18 Abdomen/GI: Positive for nausea and vomiting. 08:18 Back: Positive for pain at rest. Exam: 08:17 Head/Face: Normocephalic, atraumatic. Eyes: Pupils equal round and reactive to light, snw extra-ocular motions intact. Lids and lashes normal. Conjunctiva and sclera are non-icteric and not injected. Cornea within normal limits. Periorbital areas with no swelling, redness, or edema. Neck: Trachea midline, no thyromegaly or masses palpated, and no cervical lymphadenopathy. Supple, full range of motion without nuchal rigidity, or vertebral point tenderness. No Meningismus. Chest/axilla: Normal chest wall appearance and motion. Nontender with no deformity. No lesions are appreciated. 08:17 Respiratory: Lungs have equal breath sounds bilaterally, clear to auscultation and percussion. No rales, rhonchi or wheezes noted. No increased work of breathing, no retractions or nasal flaring. 08:17 Back: No spinal tenderness. No costovertebral tenderness. Full range of motion. Skin: Warm, dry with normal turgor. Normal color with no rashes, no lesions, and no evidence of cellulitis. MS/ Extremity: Pulses equal, no cyanosis. Neurovascular intact. Full, normal range of motion. Neuro: Awake and alert, GCS 15, oriented to person, place, time, and situation. Cranial nerves II-XII grossly intact. Motor strength 5/5 in all extremities. Sensory grossly intact. Cerebellar exam normal. Normal gait. 08:17 Constitutional: The patient appears alert, awake, uncomfortable. 08:17 Cardiovascular: Rate: normal, Rhythm: regular, Pulses: no pulse deficits are appreciated, Edema: 1+ edema to level of left ankle and right ankle, JVD: is noted bilaterally. 08:17 Abdomen/GI: Inspection: distension, that is mild, Bowel sounds: normal, Palpation: abdomen is soft and non-tender. 08:17 Psych: Behavior/mood is depressed, Affect is calm, Oriented to person, place, time. Vital Signs: 08:17 BP 120 / 81; Pulse 68; Resp 22; Temp 97.6(O); Pulse Ox 97% on R/A; Weight 63.5 kg; ss Height 5 ft. 2 in. (157.48 cm); Pain 10/10; 09:15 BP 115 / 77; Pulse 70; Resp 28; Pulse Ox 100% on R/A; kr3 09:45 Pulse Ox 88% on R/A; kr3 09:54 BP 119 / 94; Pulse 66; Resp 24; Pulse Ox 94% on 3 lpm NC; kr3 08:17 Body Mass Index 25.61 (63.50 kg, 157.48 cm) ss MDM: 08:[address] [facility] 10:17 Data reviewed: vital signs, nurses notes. Data interpreted: Pulse oximetry: on room air snw is 92 %. Interpretation: borderline. Plan: O2 by NC applied. Counseling: I had a detailed discussion with the patient and/or guardian regarding: the historical points, exam findings, and any diagnostic results supporting the discharge/admit diagnosis, the presence of at least one elevated blood pressure reading (>120/80) during this emergency department visit, lab results, radiology results, the need for further work-up and treatment in the hospital. Response to treatment: the patient's symptoms have mildly improved after treatment, chest pain resolved. 10:35 Physician consultation: Toby Neil MD was called at 10:36, regarding admission, to snw the telemetry unit. 05/07 08:11 Order name: Basic Metabolic Panel; Complete Time: 09:53 [facility] 05/07 08:11 Order name: CBC with Diff; Complete Time: 09:53 [facility] 05/07 08:11 Order name: LFT's; Complete Time: 09:53 [facility] 05/07 08:11 Order name: Magnesium; Complete Time: 09:53 [facility] 05/07 08:11 Order name: NT PRO-BNP; Complete Time: 09:53 [facility] 05/07 08:11 Order name: PT-INR; Complete Time: 09:53 [facility] 05/07 08:11 Order name: Troponin HS; Complete Time: 09:53 [facility] 05/07 08:11 Order name: Lipase; Complete Time: 09:53 [facility] 05/07 08:48 Order name: COVID-19/FLU A+B/RSV; Complete Time: 09:53 EDMS 05/07 11:03 Order name: Troponin High Sensitivity; Complete Time: 12:07 snw 05/07 14:02 Order name: Urine Dipstick-Ancillary; Complete Time: 14:03 EDID 05/07 14:02 Order name: Urine --Ancillary (enter results) em1 05/07 08:11 Order name: XRAY Chest (1 view); Complete Time: 09:53 [facility] 05/07 08:11 Order name: EKG; Complete Time: 08:11 [facility] 05/07 11:03 Order name: EKG; Complete Time: 11:04 [facility] 05/07 12:52 Order name: CONS Physician Consult [facility] 05/07 14:10 Order name: Urine --Ancillary; Complete Time: 14:12 [facility] 05/07 15:21 Order name: CT; Complete Time: 15:21 [facility] 05/07 15:57 Order name: Troponin High Sensitivity; Complete Time: 16:02 [facility] 05/07 19:20 Order name: US; Complete Time: 19:25 [facility] 05/07 23:09 Order name: Troponin High Sensitivity; Complete Time: 07:43 EDID 05/08 07:51 Order name: CBC with Automated Diff; Complete Time: 08:08 [facility] 05/08 07:58 Order name: Comprehensive Metabolic Panel; Complete Time: 08:08 [facility] 05/08 07:58 Order name: Magnesium; Complete Time: 08:08 [facility] 05/07 08:11 Order name: Cardiac monitoring; Complete Time: 08:18 [facility] 05/07 08:11 Order name: EKG - Nurse/Tech; Complete Time: 08:24 [facility] 05/07 08:11 Order name: IV Saline Lock; Complete Time: 08:42 [facility] 05/07 08:11 Order name: Labs collected and sent; Complete Time: 08:42 [facility] 05/07 08:11 Order name: O2 Per Protocol; Complete Time: 08:18 [facility] 05/07 08:11 Order name: O2 Sat Monitoring; Complete Time: 08:18 [facility] 05/07 11:03 Order name: EKG - Nurse/Tech; Complete Time: 12:02 [facility] 05/07 13:03 Order name: Urine Test (obtain specimen); Complete Time: 14:01 em1 EC:24 Rate is 69 beats/min. Rhythm is regular. QRS Carver is Normal. QT interval is prolonged. snw T waves are Inverted in lead V2. Clinical impression: NSR w/ Non-specific ST/T Changes. 11: Rate is 67 beats/min. Rhythm is regular. QT interval is prolonged. T waves are Inverted snw in lead V2. Clinical impression: NSR w/ Non-specific ST/T Changes. Administered Medications: : Drug: fentaNYL (PF) 25 mcg Route: IVP; Site: right forearm; kr3 09:25 Drug: Zofran (Ondansetron) 4 mg Route: IVP; Site: left forearm; kr3 09:25 Drug: Pepcid (famotidine) 20 mg Route: IVP; Site: left forearm; kr3 17:24 Not Given (patient did not tolerate first dose, RR dropped to 7): fentaNYL (PF) 25 mcg kr3 IVP once Disposition Summary: 05/07/22 11:02 Hospitalization Ordered Hospitalization Status: Inpatient Admission snw Provider: Toby Neil snaishwarya Condition: Stable snw Problem: an acute exacerbation snw Symptoms: are unchanged snw Bed/Room Type: Standard snw Location: Telemetry/MedSurg (Inpatient)(05/08/22 15:38) kj1 Room Assignment: [facility](05/08/22 15:38) kj1 Diagnosis - Chest pain, unspecified snw - Elevated troponin snw - End stage renal disease snw - Fluid overload, unspecified snw Forms: - Medication Reconciliation Form snw - SBAR form snw Signatures: Dispatcher [employer] EDMS Oscar Shultz MD MD cha Waters, Shelly, GEOLOGIST-C GEOLOGIST-Jeremy Bailey em1 Katarzyna Ramos RN RN ss Garcia, Cindy, RN RN cg Jackson, Kandis kj1 Mel Castrejon RN RN kr3 Corrections: (The following items were deleted from the chart) 08:48 08:11 SARS-COV-2 Antigen Rapid+I.LAB.BRZ ordered. EDMS EDMS 08:48 08:13 Influenza Screen (A \T\ B)+BA.LAB.BRZ ordered. EDMS EDMS 19:59 11:02 Telemetry/MedSurg (Inpatient) snw cg 19:59 11:02 snw cg 05/08 15:38 05/07 19:59 [facility] ER HOLD cg kj1 05/08 15:38 05/07 19:59 ERHOLD- cg kj1
--- NOTE | 2022-05-07 13:43 | P.HP ---
Certification for Inpatient Patient admitted to: Observation With expected LOS: <2 Midnights Practitioner: I am a practitioner with admitting privileges, knowledge of patient current condition, hospital course, and medical plan of care. Services: Services provided to patient in accordance with Admission requirements found in Title 42 Section 412.3 of the Code of Federal Regulations Patient History Date of Service: 05/07/22 History of Present Illness: 37yo F, PMH: ESRD, HTN, volume overload. Presents to ED this morning due to epigastric/chest pain that began overnight. Patient received fentanyl and is currently somnolent. Unable to get much history from her beyond an occasional mumbled yes/no. History obtained from ED midlevel and EMR. Pain reported in epigastric/lower chest region. Patient had nausea and had an episode of emesis at some point recently. She last had dialysis tuesday, and is typically T-R-S, and told ED staff this was done tuesday due to volume overload. Workup in ED noted elevated BNP, troponin, and CXR with edema / possible effusions. ED requests admission for further management of chest pain and volume status. Allergies No Known Allergies Allergy (Verified 11/19/19 21:40) Home Medications: RX: Carvedilol [Coreg] 25 mg PO BID #60 tablet 11/27/19 RX: Ramipril [Altace] 10 mg PO DAILY #30 capsule 11/27/19 RX: Spironolactone [Aldactone] 50 mg PO DAILY #30 tablet 11/27/19 Levofloxacin [Levaquin] 250 mg PO Q48H 6 Days #3 tablet 08/25/21 RX: Doxazosin Mesylate 1 tab PO BID 08/25/21 RX: Hydrocodone/Chlorphen Polis [Tussionex Oral Susp*] 1 tsp PO Q12H PRN 08/25/21 RX: Nifedipine Xl [Procardia Xl*] 90 mg PO DAILY 08/25/21 - Past Medical/Surgical History Diabetic: No -: HTN -: ESRD on HD -: C Section -: Tubal Ligation - Family History Father -: Hypertension Mother -: Heart disease - Social History Smoking Status: Unknown if ever smoked Alcohol use: No CD- Drugs: No Caffeine use: No Review of Systems is unable to be obtained Physical Examination - Physical Exam General: Other (somnolent) HEENT: PERRLA, Sclerae nonicteric Respiratory: Diminished, Crackles/rales Cardiovascular: Regular rate/rhythm, Edema Gastrointestinal: Other (slight distention, +ascites), Tenderness (RUQ/Epigastrium) Musculoskeletal: No erythema, No tenderness Integumentary: No rashes, No significant lesion Neurological: Other (moves extremities, mumbles yes/no briefly before falling back asleep) - Studies Laboratory Data (last 24 hrs) 05/07/22 08:39: PT 13.9 H, INR 1.26 05/07/22 08:39: WBC 8.10, Hgb 12.0, Hct 36.8, Plt Count 230 05/07/22 08:39: Sodium 136, Potassium 3.8, BUN 46 H, Creatinine 5.47 H*, Glucose 141 H, Magnesium 2.3, Total Bilirubin 0.6, AST 32, ALT 40, Alkaline Phosphatase 107, Lipase 83 Assessment and Plan - Advance Directives Does patient have a Living Will: No Does patient have a Durable POA for Healthcare: No Physician Review Additional Text: Problem List Chest pain Epigastric tenderness Volume overload secondary to ESRD ESRD on HD HTN patient received fentanyl and is now somnolent, waking to answer only a word or two at a time unclear where chest pain was seems to have epigastric/RUQ tenderness on exam, possible gastritis/ulcer/pancreatitis, will further evaluate with bloodwork, CT abd/pelvis r/o ACS, trend trop, cardiology consulted ESRD, on HD. Volume overloaded, consult nephrology confirm home meds; unable to get med list from patient currently, avoid further fentanyl start protonix VTE: heparin Code: full Dispo: home, ~1-2 days Time Spent Managing Pts Care (In Minutes): 70
[2022-05-07 14:02] LABS: Urine Blood 1+ (Negative); Urine Glucose Negative (Negative); Urine Protein 3+ (Negative)
--- NOTE | 2022-05-07 15:20 | RAD REPORT ---
EXAM DESCRIPTION: CT - Abdomen Pelvis Wo Contrast - 05/07/2022 2:12 pm CLINICAL HISTORY: Abdominal pain COMPARISON: 2020 TECHNIQUE: Computed axial tomography of the abdomen and pelvis was obtained. IV and oral contrast we re not requested. All CT scans are performed using dose optimization technique as appropriate and may include automated exposure control or mA/KV adjustment according to patient size. FINDINGS: The evaluation of solid organs, vessels and bowel is limited secondary to the lack of con trast administration. The heart is moderately enlarged. Small pericardial effusion Mild to moderate bilateral lower lobe opacities. Liver, spleen, pancreas, adrenals and kidneys grossly normal. Small amount of ascites abdomen. Small to moderate amount of ascites pelvis. Normal appendix. No evidence of diverticulitis. Diffuse edema within the subcutaneous tissues Gallbladder wall appears thickened IMPRESSION: Mild to moderate bibasilar lung opacities may represent pneumonia Small amount of ascites abdomen. Small to moderate amount of ascites pelvis. Apparent thickening of the wall of gallbladder may be secondary to hypoalbuminemia. If the patient sunshine s clinical symptoms to suggest cholecystitis then ultrasound would be recommended
[2022-05-07] MEDS: PANTOPRAZOLE 40MG TABLET PO SCH (16:30)
[2022-05-07 18:07] VITALS: BMI 24.6
[2022-05-07] MEDS ORDERED: PANTOPRAZOLE 40MG TABLET PO ONE (18:10)
[2022-05-07] MEDS ORDERED: PIPER TAZO 2.25 GM in NA CHLORIDE 0.9% 100 ML IV SCH (19:00)
--- NOTE | 2022-05-07 19:19 | RAD REPORT ---
EXAM DESCRIPTION: US - Abdomen Exam Limited - 05/07/2022 7:04 pm CLINICAL HISTORY: Abdominal pain. COMPARISON: None. FINDINGS: The patient was not NPO limiting evaluation of the gallbladder. Gallbladder is contracted. A gallstone is not seen. Gallbladder wall is mildly thickened. Biliary tree is normal caliber IMPRESSION: Gallbladder wall is mildly thickened with contraction of the gallbladder. This may be se condary to a combination of the patient not being NPO and hypoalbuminemia. A gallstone is not seen
--- NOTE | 2022-05-07 20:02 | CON ---
Date of Consultation: 05/07/2022 Reason For Consultation: Chest pain and elevated troponin. History Of Present Illness: This is a 37-year-old female with history of end-stage renal disease and hypertension. She is on hemodialysis and is not compliant with dialysis. Said she missed at least a week's worth of dialysis and started feeling short of breath, lower extremity edema, chest pain, an d chest heaviness. She has never had cardiac workup as per her report or cardiac history. Past Medical History: As outlined above in the HPI. Medications: Refer to reconciliation sheet for detailed list. Allergies: NO KNOWN DRUG ALLERGIES. Family History: No premature coronary artery disease or cancer. Social History: She does not smoke or drink or use any drugs. Review of Systems: All systems reviewed and they are negative except for mentioned in HPI. Physical Examination: Vital Signs: Reviewed. Head and Neck: Pupils are equal and reactive to light. Intact eye movements. Positive JVD. No cer vical lymphadenopathy. Neck is supple. Thyroid is not enlarged. Lungs: Crackles in both bases. No accessory muscle use or muscle retraction. Heart: Irregular. No extra sounds. Abdomen: Soft, nontender. Bowel sounds positive. No organomegaly. No masses or hernia. No rigidi ty or rebound. Extremities: No clubbing or cyanosis. Intact pulses. Positive edema. Skin: No rash. No nodules. Neuro: Alert, awake, and oriented x3. No acute focal deficits appreciated. Investigations: Troponin 145 and down to 112. BUN 46 and creatinine 5.47. Assessment And Recommendation: 1.Elevated troponin with chest pain. Patient needs ischemia workup. However, this is likely due to fluid overload and demand ischemia. The patient has risk factors that warrant ischemia workup, whic h can be done as an outpatient. In the interim, the patient will need multiple sessions of dialysis due to significant fluid retention status. 2.Shortness of breath due to fluid overload due to not being compliant with dialysis. Consult Nephr ology for inhouse dialysis and plan for ischemia workup once patient is euvolemic. Please place the patient on baby aspirin 81 mg daily. SR/MODL Voice ID: [id number] Report ID: [id number]
[2022-05-07] MEDS ORDERED: NA CHLORIDE 0.9% 100 ML IV ONE (20:13)
[2022-05-07] MEDS ORDERED: PIPERACIL/TAZO 3.375 GM VIAL IV ONE (20:14)
[2022-05-07] MEDS ORDERED: PIPER TAZO 3.375 GM in NA CHLORIDE 0.9% 100 ML IV SCH (21:00)
[2022-05-07] MEDS ORDERED: TRAMADOL HCL 50 MG TAB ONE (22:04)
[2022-05-07] MEDS: TRAMADOL HCL 50 MG TAB PO PRN (22:09)
[2022-05-08] MEDS ORDERED: ALBUMIN HUMAN 25% 50 ML IV SCH
[2022-05-08] MEDS ORDERED: MANNITOL 25% 12.5 GM/50 ML VIAL IV PRN
[2022-05-08] MEDS ORDERED: NA CHLORIDE 0.9% 1,000 ML IV PRN
[2022-05-08] MEDS ORDERED: ACETAMINOPHEN 325 MG TABLET PO PRN
[2022-05-08] MEDS: ONDANSETRON 4 MG/2 ML VIAL IV PRN (00:04)
[2022-05-08] MEDS ORDERED: CODEINE 30MG/APAP 300MG TAB PO ONE (00:04)
[2022-05-08] MEDS ORDERED: ONDANSETRON 4 MG/2 ML VIAL ONE (00:12)
[2022-05-08] MEDS ORDERED: CODEINE 30MG/APAP 300MG TAB ONE (00:12)
[2022-05-08] MEDS ORDERED: carvediloL 6.25 MG TAB PO ONE (05:45)
[2022-05-08] MEDS ORDERED: carvediloL 6.25 MG TAB ONE (05:52)
[2022-05-08 07:26] LABS: Absolute Lymphocytes (CBC) 1.6 K/uL (0.7-4.9); Hematocrit 35.1 % (36.0-45.0); Lymphocytes % 26.7 % (15.3-44.8); MCV 92.1 fL (80-100); MPV 7.9 fL (7.6-11.3); RBC Red Blood Cell Count 3.82 M/uL (3.86-4.86)
[2022-05-08 07:54] LABS: Albumin 2.6 g/dL (3.4-5.0); Bilirubin Total 0.5 mg/dL (0.2-1.0); Magnesium 2.3 mg/dL (1.8-2.4); Potassium 4.2 mmol/L (3.5-5.1); Protein, Total 6.1 g/dL (6.4-8.2)
[2022-05-08] MEDS ORDERED: TRAMADOL HCL 50 MG TAB ONE (08:15)
[2022-05-08] MEDS ORDERED: ASPIRIN EC 81 MG TAB PO ONE (08:15)
[2022-05-08] MEDS ORDERED: PANTOPRAZOLE 40MG TABLET PO ONE ×2 (08:24→17:24)
[2022-05-08] MEDS: ASPIRIN EC 81 MG TAB PO SCH (08:50)
[2022-05-08] MEDS: PANTOPRAZOLE 40MG TABLET PO SCH ×2 (08:50→17:24)
[2022-05-08] MEDS: TRAMADOL HCL 50 MG TAB PO PRN (08:54)
[2022-05-08] MEDS: DIPHENHYDRAMINE 50 MG/ML VIAL IV ONE ×2 (13:45→14:00)
[2022-05-08] MEDS ORDERED: HYDRALAZINE HCL 20 MG/ML VIAL ONE (13:58)
[2022-05-08] MEDS: HYDRALAZINE HCL 20 MG/ML VIAL IV PRN (14:03)
--- NOTE | 2022-05-08 14:27 | PN ---
Date of Progress Note: 05/08/2022 Subjective: Seen by bedside. No changes in condition. Review of Systems: No active chest pain at the present time. Slightly short of breath. No nausea, vomiting, diarrhea. No dysuria, polyuria, or urinary urgency. All other systems reviewed and they were negative. Physical Examination: Vital Signs: Reviewed. Head and Neck: Pupils are equal, reactive to light. Intact eye movements. No JVD. No cervical lym phadenopathy. Neck is supple. Thyroid is not enlarged. Lungs: Crackles in both lungs. No accessory muscle use or muscle retraction. Heart: Irregular. No extra sounds. Abdomen: Soft, nontender. Bowel sounds positive. No organomegaly. No masses or hernia. No rigidi ty or rebound. Extremities: Edema bilaterally. No clubbing or cyanosis. Intact pulses. Skin: No rash. Neurologic: Alert, awake, oriented x3. No acute focal deficits appreciated. Investigations: Labs were reviewed. Assessment And Recommendations: 1.Acute fluid overload condition. The patient needs dialysis. Consult Nephrology for that. 2.Chest pain and borderline elevated troponin, less likely demand; however, coronary artery disease is a possibility. This patient will need ischemia workup once her fluid status is more controlled. 3.Hypertension, extremely high blood pressure. Should improve with dialysis and resume home medicat ions please. /ADAM Voice ID: [id number] Report ID: [id number]
--- NOTE | 2022-05-08 14:57 | P.PN ---
Date of Service: 05/08/22 Subjective: no active chest pain, slightly short of breath at rest no n/v/d continues with RUQ/epigastric discomfort back/left flank discomfort as well ROS: 10 point ROS as noted above, otherwise negative Physical exam GEN: alert, oriented HEENT: Normal conjunctiva, sclera anicteric CV: Regular rate and rhythm, bilateral lower extremity edema Pulm: mild labored respirations, +bilateral crackles ABD: Soft, RUQ and epigastric tenderness, most in RUQ, generalized discomfort on palpation, no rebound MSK: No joint tenderness Integumentary: No rashes Neuro: Normal speech, normal affect Problem List Chest pain RUQ/Epigastric tenderness acute volume overload secondary to ESRD ESRD on HD HTN no significant change since admission to get dialysis this morning remains edematous, short of breath, abd discomfort RUQ tenderness on exam CT and U/S with gallbladder wall thickening no other signs/symptoms for acute cholecystitis beyond tenderness - no fever, no leukocytosis, no stone general surgery consulted protonix started for epigastric pain trop trend flat, but elevated cardiology consulted; suspect demand ischemia recommend ischemic workup once fluid status improved ESRD, on HD. Volume overloaded, consulted nephrology confirm home meds; unable to get med list from patient currentlty and unable to update via EMR VTE: heparin Code: full Dispo: home, ~2 days Time Spent Managing Pts Care (In Minutes): 35
[2022-05-08] MEDS: NIFEDIPINE XL 90 MG TABLET PO SCH (17:42)
[2022-05-08] MEDS: CODEINE 30MG/APAP 300MG TAB PO PRN (17:42)
[2022-05-08] MEDS ORDERED: HYDROCODONE/APAP 5/325 MG TAB PO PRN (20:28)
[2022-05-08] MEDS ORDERED: HYDROCODONE/APAP 5/325 MG TAB PO ONE (20:29)
[2022-05-09] MEDS: CODEINE 30MG/APAP 300MG TAB PO PRN ×3 (00:55→17:17)
[2022-05-09] MEDS: HYDRALAZINE HCL 20 MG/ML VIAL IV PRN ×2 (00:57→12:15)
[2022-05-09] MEDS: ONDANSETRON 4 MG/2 ML VIAL IV PRN (00:57)
[2022-05-09] MEDS ORDERED: CYCLOBENZAPRINE 10 MG TAB PO ONE (03:56)
[2022-05-09 05:58] LABS: Absolute Lymphocytes (CBC) 1.3 K/uL (0.7-4.9); Hematocrit 36.5 % (36.0-45.0); Lymphocytes % 19.6 % (15.3-44.8); MCV 92.4 fL (80-100); MPV 8.2 fL (7.6-11.3); RBC Red Blood Cell Count 3.95 M/uL (3.86-4.86)
[2022-05-09 06:13] LABS: Albumin 2.8 g/dL (3.4-5.0); Bilirubin Total 0.5 mg/dL (0.2-1.0); Magnesium 2.3 mg/dL (1.8-2.4); Potassium 4.2 mmol/L (3.5-5.1); Protein, Total 6.8 g/dL (6.4-8.2)
[2022-05-09] MEDS: PANTOPRAZOLE 40MG TABLET PO SCH ×2 (08:41→17:17)
[2022-05-09] MEDS: ASPIRIN EC 81 MG TAB PO SCH (08:41)
[2022-05-09] MEDS: NIFEDIPINE XL 90 MG TABLET PO SCH (08:41)
--- NOTE | 2022-05-09 12:37 | P.CNS ---
Date of Consult: 05/09/22 Reason for Consult: ESRD Requesting Physician: Toby Neil Chief Complaint: Chest Pain History of Present Illness: 37yo F, PMH: ESRD, HTN, volume overload. Presents to ED this morning due to epigastric/chest pain that began overnight. Patient received fentanyl and is currently somnolent. Unable to get much history from her beyond an occasional mumbled yes/no. History obtained from ED midlevel and EMR. Pain reported in epigastric/lower chest region. Patient had nausea and had an episode of emesis at some point recently. She last had dialysis tuesday, and is typically T-R-S, and told ED staff this was done tuesday due to volume overload. Workup in ED noted elevated BNP, troponin, and CXR with edema / possible effusions. ED requests admission for further management of chest pain and volume status. 08:19 This 37 yrs old Black Female presents to ER via EMS with complaints of Chest Pain. snw 08:19 Onset: The symptoms/episode began/occurred acutely. Associated signs and symptoms: snw Pertinent positives: vomiting, back pain. Modifying factors: The patient symptoms are alleviated by nothing. It is unknown whether or not the patient has had similar symptoms in the past. It is unknown whether or not the patient has recently seen a physician. Pt normally rec's dialysis Tue, , Tue. She rec'd last dialysis Tuesday 2nd to overload. She sees Dr. Monge. She is feeling better after the first dialysis with UF. Allergies No Known Allergies Allergy (Verified 11/19/19 21:40) Home medications list reviewed: Yes Home Medications: Carvedilol [Coreg] 25 mg PO BID #60 tablet 11/27/19 Spironolactone [Aldactone] 50 mg PO DAILY #30 tablet 11/27/19 Doxazosin Mesylate 1 tab PO BID 08/25/21 Nifedipine Xl [Procardia Xl*] 90 mg PO DAILY 08/25/21 - Past Medical/Surgical History Diabetic: No -: HTN -: ESRD on HD (Dr. Monge) -: C Section -: Tubal Ligation - Family History Father Medical History: Hypertension Mother History Unknown: Yes Medical History: Heart disease - Social History Smoking Status: Current some day smoker Alcohol use: No CD- Drugs: No Caffeine use: No Review of Systems 10-point ROS is otherwise unremarkable General: Weakness, Malaise Respiratory: SOB with Excertion Physical Examination Temp Pulse Resp BP Pulse Ox 98.2 F 81 19 174/101 H 99 05/09/22 12:00 05/09/22 12:00 05/09/22 12:00 05/09/22 12:00 05/09/22 12:00 General: In no apparent distress, Oriented x3, Cooperative HEENT: Atraumatic Neck: Supple Respiratory: Diminished Cardiovascular: Edema Gastrointestinal: Soft and benign Musculoskeletal: No clubbing, No contractures Integumentary: No rashes, No cyanosis Neurological: Normal speech Laboratory Data (last 24 hrs) 05/09/22 05:28: Sodium 138, Potassium 4.2, BUN 32 H, Creatinine 4.91 H, Glucose 122 H, Magnesium 2.3, Total Bilirubin 0.5, AST 20, ALT 33, Alkaline Phosphatase 101 05/09/22 05:28: WBC 6.60, Hgb 12.0, Hct 36.5, Plt Count 254 Imagings Data: EXAM DESCRIPTION: CT - Abdomen Pelvis Wo Contrast - 05/07/2022 2:12 pm CLINICAL HISTORY: Abdominal pain COMPARISON: 2020 TECHNIQUE: Computed axial tomography of the abdomen and pelvis was obtained. IV and oral contrast were not requested. All CT scans are performed using dose optimization technique as appropriate and may include automated exposure control or mA/KV adjustment according to patient size. FINDINGS: The evaluation of solid organs, vessels and bowel is limited secondary to the lack of contrast administration. The heart is moderately enlarged. Small pericardial effusion Mild to moderate bilateral lower lobe opacities. Liver, spleen, pancreas, adrenals and kidneys grossly normal. Small amount of ascites abdomen. Small to moderate amount of ascites pelvis. Normal appendix. No evidence of diverticulitis. Diffuse edema within the subcutaneous tissues Gallbladder wall appears thickened IMPRESSION: Mild to moderate bibasilar lung opacities may represent pneumonia Small amount of ascites abdomen. Small to moderate amount of ascites pelvis. Apparent thickening of the wall of gallbladder may be secondary to hypoalbuminemia. If the patient has clinical symptoms to suggest cholecystitis then ultrasound would be recommended Reason for Exam: CHEST PAIN Report Status: Signed EXAM DESCRIPTION: Joseph Single View05/07/2022 8:30 am CLINICAL HISTORY: Chest pain COMPARISON: August 2021 FINDINGS: The lungs appear clear of acute infiltrate. The heart is moderately to markedly enlarged IMPRESSION: No acute abnormalities displayed Conclusions/Impression: ESRD on HD -Acute HD as ordered HTN with CKD/ CHF -Continue Nifedipine Diastolic CHF, A/C -Low sodium diet -Daily weight -Acute HD with UF -Echocardiogram pending -Follow up with cardiology IFG -Check A1C Anemia in CKD Iron Deficiency -Retacrit prn CKD MBD -Start Ergo -Start Renvela Case reviewed with Dr. Neli Thank you kindly for the consultation
--- NOTE | 2022-05-09 17:39 | P.PN ---
Date of Service: 05/09/22 Subjective: no active chest pain improving 4.5L pulled off at HD yesterday ROS: 10 point ROS as noted above, otherwise negative Physical exam GEN: alert, oriented, anasarca CV: Regular rate and rhythm, bilateral lower extremity edema Pulm: nonlabored respirations ABD: Soft, minimal abd tenderness diffusely MSK: mild tenderness in lumbar region, across entire back - along paraspinal muscles Integumentary: No rashes Neuro: Normal speech, normal affect Problem List Chest pain RUQ/Epigastric tenderness acute volume overload secondary to ESRD ESRD on HD HTN improved after HD, still with some pain still with lower extremity edema, swelling of face HD ordered for tomorrow RUQ tenderness on exam CT and U/S with gallbladder wall thickening no other signs/symptoms for acute cholecystitis beyond tenderness - no fever, no leukocytosis, no stone general surgery consulted protonix started for epigastric pain trop trend flat, but elevated cardiology consulted; suspect demand ischemia recommend ischemic workup once fluid status improved - as outpatient ESRD, on HD. Volume overloaded, consulted nephrology confirm home meds; unable to get med list from patient currently and unable to update via EMR her pharmacy reports last filled several months ago VTE: heparin Code: full Dispo: home, anticipate tomorrow after HD Time Spent Managing Pts Care (In Minutes): 25
[2022-05-09] MEDS: DOCUSATE NA 100 MG CAP PO SCH (21:00)
[2022-05-09] MEDS: MELATONIN 5 MG TABLET PO PRN (23:09)
[2022-05-10 04:01] LABS: MCV 92.8 fL (80-100); MPV 7.9 fL (7.6-11.3); RBC Red Blood Cell Count 3.99 M/uL (3.86-4.86)
[2022-05-10 04:45] LABS: Magnesium 2.4 mg/dL (1.8-2.4); Phosphorus 5.2 mg/dL (2.5-4.9); Potassium 4.2 mmol/L (3.5-5.1)
[2022-05-10] MEDS: MULTIVITAMINS,THERAPEUT 1 TAB PO SCH (07:53)
[2022-05-10] MEDS: ASPIRIN EC 81 MG TAB PO SCH (07:53)
[2022-05-10] MEDS: CODEINE 30MG/APAP 300MG TAB PO PRN ×2 (07:54→20:53)
[2022-05-10] MEDS: SEVELAMER CARBONATE 800 MG TABLET PO SCH ×3 (07:54→17:36)
[2022-05-10] MEDS: PANTOPRAZOLE 40MG TABLET PO SCH ×2 (07:54→17:36)
[2022-05-10] MEDS: DOCUSATE NA 100 MG CAP PO SCH ×2 (07:54→20:53)
[2022-05-10] MEDS: NIFEDIPINE XL 90 MG TABLET PO SCH (07:54)
--- NOTE | 2022-05-10 10:55 | P.PN ---
Date of Service: 05/10/22 Vital Signs Temp Pulse Resp BP Pulse Ox 98.2 F 89 16 174/102 H 94 05/10/22 08:00 05/10/22 08:00 05/10/22 08:00 05/10/22 08:00 05/10/22 08:00 Medications Acetaminophen (Acetaminophen 325 Mg Tablet) 650 mg PO Q6H PRN PRN Reason: Pain scale 2-4 (Mild) Acetaminophen/Codeine Phosphate (Codeine 30mg/Apap 300mg Tab) 1 tab PO Q8H PRN PRN Reason: Pain scale 8-10 (Severe) Last Admin: 05/10/22 07:54 Dose: 1 tab Aspirin (Aspirin Ec 81 Mg Tab) 81 mg PO DAILY [facility] Last Admin: 05/10/22 07:53 Dose: 81 mg Docusate Sodium (Docusate Na 100 Mg Cap) 100 mg PO BID [facility] Last Admin: 05/10/22 07:54 Dose: 100 mg Ergocalciferol (Drisdol (Vitamin D=Ergocalciferol) 20215 Unit Cap) 50,000 unit PO Q7D@0900 [facility] Heparin Sodium (Porcine) (Heparin 1,000 Unit/Ml Vial) 3,000 unit IV EVERY HD PRN PRN Reason: Prevent Lines Clotting Last Admin: 05/08/22 12:57 Dose: 3,000 unit Hydralazine HCl (Hydralazine Hcl 20 Mg/Ml Vial) 10 mg IV Q6HP PRN PRN Reason: FOR SBP>160 OR DBP>100 [facility] Last Admin: 05/09/22 12:15 Dose: 10 mg Albumin Human (Albumin 25%) 50 mls @ 100 mls/hr IV EVERY HD [facility] Mannitol (Mannitol 25% 12.5 Gm/50 Ml Vial) 12.5 gm IV EVERY HD PRN PRN Reason: Titrate to SBP (MUST DEFINE) Melatonin (Melatonin 5 Mg Tablet) 10 mg PO BEDTIME PRN PRN PRN Reason: INSOMNIA Last Admin: 05/09/22 23:09 Dose: 10 mg Nifedipine (Nifedipine Xl 90 Mg Tablet) 90 mg PO DAILY [facility] Last Admin: 05/10/22 07:54 Dose: 90 mg Ondansetron HCl (Ondansetron 4 Mg/2 Ml Vial) 4 mg IV Q6HP PRN PRN Reason: NAUSEA / VOMITING Last Admin: 05/09/22 00:57 Dose: 4 mg Pantoprazole Sodium (Pantoprazole 40mg Tablet) 40 mg PO BIDAC [facility]; Protocol Last Admin: 05/10/22 07:54 Dose: 40 mg Sevelamer Carbonate (Sevelamer Carbonate 800 Mg Tablet) 800 mg PO TIDWM [facility] Last Admin: 05/10/22 07:54 Dose: 800 mg Sodium Chloride (Flush Normal Saline 10 Ml) 10 ml IV BID [facility] Last Admin: 05/10/22 07:54 Dose: 10 ml Vitamin B Complex/Vit C/Folic Acid (Multivitamins,Therapeut 1 Tab) 1 tab PO DAILY [facility] Last Admin: 05/10/22 07:53 Dose: 1 tab Assessment/ Plan: Nephrology Feeling better No chest pain No dyspnea No acute events overnight Vitals, medications, blood work and imaging reviewed in the chart General: In no apparent distress, Oriented x3, Cooperative HEENT: Atraumatic Neck: Supple Respiratory: Diminished Cardiovascular: Edema Gastrointestinal: Soft and benign Musculoskeletal: No clubbing, No contractures Integumentary: No rashes, No cyanosis Neurological: Normal speech Laboratory Data (last 24 hrs) 05/09/22 05:28: Sodium 138, Potassium 4.2, BUN 32 H, Creatinine 4.91 H, Glucose 122 H, Magnesium 2.3, Total Bilirubin 0.5, AST 20, ALT 33, Alkaline Phosphatase 101 05/09/22 05:28: WBC 6.60, Hgb 12.0, Hct 36.5, Plt Count 254 Imagings Data: EXAM DESCRIPTION: CT - Abdomen Pelvis Wo Contrast - 05/07/2022 2:12 pm CLINICAL HISTORY: Abdominal pain COMPARISON: 2020 TECHNIQUE: Computed axial tomography of the abdomen and pelvis was obtained. IV and oral contrast were not requested. All CT scans are performed using dose optimization technique as appropriate and may include automated exposure control or mA/KV adjustment according to patient size. FINDINGS: The evaluation of solid organs, vessels and bowel is limited secondary to the lack of contrast administration. The heart is moderately enlarged. Small pericardial effusion Mild to moderate bilateral lower lobe opacities. Liver, spleen, pancreas, adrenals and kidneys grossly normal. Small amount of ascites abdomen. Small to moderate amount of ascites pelvis. Normal appendix. No evidence of diverticulitis. Diffuse edema within the subcutaneous tissues Gallbladder wall appears thickened IMPRESSION: Mild to moderate bibasilar lung opacities may represent pneumonia Small amount of ascites abdomen. Small to moderate amount of ascites pelvis. Apparent thickening of the wall of gallbladder may be secondary to hypoalbuminemia. If the patient has clinical symptoms to suggest cholecystitis then ultrasound would be recommended Reason for Exam: CHEST PAIN Report Status: Signed EXAM DESCRIPTION: Joseph Single View05/07/2022 8:30 am CLINICAL HISTORY: Chest pain COMPARISON: August 2021 FINDINGS: The lungs appear clear of acute infiltrate. The heart is moderately to markedly enlarged IMPRESSION: No acute abnormalities displayed Conclusions/Impression: ESRD on HD -Acute HD as ordered -Seen and examined on HD HTN with CKD/ CHF -Continue Nifedipine Diastolic CHF, A/C -Low sodium diet -Daily weight -Acute HD with UF -Echocardiogram pending -Follow up with cardiology IFG A1C 5.6 -Low sugar diet Anemia in CKD Iron Deficiency -Retacrit prn CKD MBD -Continue Ergo -Continue Renvela
--- NOTE | 2022-05-10 12:56 | EKG ---
Test Date: 2022-05-07 Test Time: 11:27:38 Water Quality Tester: PATEL MEASUREMENT RESULTS: Intervals: Rate: 67 MS: 150 QRSD: 80 QT: 514 QTc: 543 [place]: P: 52 MS: 150 QRS: 76 T: 48 INTERPRETIVE STATEMENTS: Normal sinus rhythm Biatrial enlargement Prolonged QT Abnormal ECG Compared to ECG 05/07/2022 08:22:18 T-wave abnormality no longer present Electronically Signed On 05-10-22 12:51:53 FIXED WING AIRCRAFT FLIGHT MECHANIC by Cristopher Kam
--- NOTE | 2022-05-10 12:57 | EKG ---
Test Date: 2022-05-07 Test Time: 08:22:18 Counter Molder: CHING MEASUREMENT RESULTS: Intervals: Rate: 69 TN: 148 QRSD: 82 QT: 488 QTc: 522 [place]: P: 39 TN: 148 QRS: 57 T: 27 INTERPRETIVE STATEMENTS: Normal sinus rhythm Left atrial enlargement Nonspecific T wave abnormality Prolonged QT Abnormal ECG Compared to ECG 09/17/2021 18:52:22 T-wave abnormality now present Prolonged QT interval now present ST (T wave) deviation no longer present Electronically Signed On 05-10-22 12:52:11 WASH TUB MACHINE OPERATOR by Cristopher Kam
[2022-05-10] MEDS: HYDRALAZINE HCL 20 MG/ML VIAL IV PRN (17:36)
--- NOTE | 2022-05-10 17:39 | P.PN ---
Date of Service: 05/10/22 Subjective: improving another 4.5L removed today ROS: 10 point ROS as noted above, otherwise negative Physical exam GEN: alert, oriented, NAD CV: Regular rate and rhythm, 1+ bilateral lower extremity edema Pulm: nonlabored respirations ABD: Soft, nontender, nondistended MSK: mild tenderness in lumbar region, along paraspinal muscles Neuro: Normal speech, normal affect Problem List Chest pain RUQ/Epigastric tenderness acute volume overload secondary to ESRD ESRD on HD HTN improving with HD - 4.5L removed each time still with lower extremity edema, swelling of face RUQ tenderness on exam resolved CT and U/S with gallbladder wall thickening no other signs/symptoms for acute cholecystitis beyond tenderness - no fever, no leukocytosis, no stone general surgery consulted protonix started for epigastric pain trop trended flat, but elevated cardiology consulted; suspect demand ischemia recommend ischemic workup once fluid status improved -initially as outpatient, but now recommends inpatient stress testing - can't be done until 05/11 ESRD, on HD. Volume overloaded, consulted nephrology confirm home meds; unable to get med list from patient currently and unable to update via EMR her pharmacy reports last filled several months ago VTE: heparin Code: full Dispo: home, anticipate tomorrow after HD / stress test Time Spent Managing Pts Care (In Minutes): 25
--- NOTE | 2022-05-10 20:05 | PN ---
Date of Progress Note: 05/09/2022 Subjective: Seen by bedside. No further chest pain. She feels better with dialysis. Review of Systems: No chest pain at the present time. She had chest pain on and off earlier. No nausea, vomiting, diar nazia. No dysuria, polyuria, or urinary urgency. All other systems reviewed, they were negative. Physical Examination: Vital Signs: Reviewed. Head and Neck: Pupils are equal, reactive to light. Intact eye movements. No JVD. No cyanosis. Neck: Supple. Thyroid not enlarged. Lungs: Clear to auscultation bilaterally. No rhonchi, rales, or crackles. No accessory muscle use. Heart: Regular rate and rhythm. No extra sounds. Abdomen: Soft, nontender. Bowel sounds positive. No organomegaly. No masses or hernia. No rigidi ty or rebound. Extremities: No clubbing, cyanosis. Intact pulses. Skin: No rash. Neurologic: Alert, awake, oriented x3. No acute focal deficits appreciated. Investigation: Labs were reviewed. Assessment And Recommendation: 1.Elevated troponin, multiple risk factors. Recommend a stress test and an echocardiogram. Further recommendations to follow accordingly. Meanwhile, continue on aspirin. Troponin has trended down. 2.Acute on chronic heart failure exacerbation. Obtain an echo. The patient is not compliant with d ialysis and Nephrology is on board. Patient felt much better after dialysis. 3.End-stage renal disease. She was counseled to be compliant with dialysis. SR/MODL Voice ID: [id number] Report ID: [id number]
[2022-05-10] MEDS ORDERED: LABETALOL 20 MG/4ML SYRINGE IV ONE (20:39)
[2022-05-10] MEDS: MELATONIN 5 MG TABLET PO PRN (20:56)
[2022-05-11] MEDS: HYDRALAZINE HCL 20 MG/ML VIAL IV PRN ×2 (00:22→07:44)
[2022-05-11 06:26] LABS: Albumin 2.8 g/dL (3.4-5.0); Potassium 4.9 mmol/L (3.5-5.1)
[2022-05-11] MEDS ORDERED: REGADENOSON 0.4 MG/5 ML SYR IV ONE (07:43)
--- NOTE | 2022-05-11 09:23 | RAD REPORT ---
EXAM DESCRIPTION: NM - Rest Stress Cardiac Imaging - 05/11/2022 9:11 am CLINICAL HISTORY: Chest pain COMPARISON: None. TECHNIQUE: The patient was administered 10.8 mCi of Tc 99m Sestamibi prior to resting SPECT imaging of the heart. The patient was then administered 26.7 mCi of Tc 99m Sestamibi following exercise or ph armacologic stress. Multiplanar SPECT images were reviewed. FINDINGS: The end diastolic volume is 178 ml, the end systolic volume is 89 ml, and the ejection fra ction is 50 %. No areas of stress-induced ischemia identifiable. Diminished activity is seen along the inferolateral wall unchanged between rest and stress imaging. There is additional small focal area of fixed dimini shed activity along the anterior wall mid and base portion of the left ventricle. These could be atte nuation artifacts, scarring or a combination. IMPRESSION: No stress-induced ischemia. Areas of fixed diminished activity along the anterior wall and inferolateral wall could be scarring, attenuation artifact or a combination. End-diastolic volume is enlarged at 178 mL. Ejection fraction is 50%.
[2022-05-11] MEDS: ONDANSETRON 4 MG/2 ML VIAL IV PRN (09:24)
[2022-05-11] MEDS: ASPIRIN EC 81 MG TAB PO SCH (09:27)
[2022-05-11] MEDS: PANTOPRAZOLE 40MG TABLET PO SCH ×2 (09:27→16:30)
[2022-05-11] MEDS: DOCUSATE NA 100 MG CAP PO SCH ×2 (09:27→20:27)
[2022-05-11] MEDS: NIFEDIPINE XL 90 MG TABLET PO SCH (09:27)
[2022-05-11] MEDS: SEVELAMER CARBONATE 800 MG TABLET PO SCH ×3 (09:28→17:00)
[2022-05-11] MEDS: MULTIVITAMINS,THERAPEUT 1 TAB PO SCH (09:28)
[2022-05-11] MEDS: CODEINE 30MG/APAP 300MG TAB PO PRN ×2 (09:32→20:26)
[2022-05-11] MEDS: HYDRALAZINE HCL 25 MG TABLET PO SCH ×3 (10:24→20:26)
[2022-05-11] MEDS: METOPROLOL TAR 25 MG TAB PO SCH ×2 (12:51→18:41)
--- NOTE | 2022-05-11 13:51 | ECHO ---
HEIGHT: 5 ft 3 in WEIGHT: 139 lb 0 oz DATE OF STUDY: 05/11/[address]: Toby Neil MD 2-DIMENSIONAL: YES M.MODE: YES DOPPLER: YES COLOR FLOW: YES TDS: PORTABLE: YES DEFINITY: BUBBLE STUDY: DIAGNOSIS: ELEVATED TROPONIN CARDIAC HISTORY: CATHERIZATION: SURGERY: PROSTHETIC VALVE: PACEMAKER: MEASUREMENTS (cm) DIASTOLIC (NORMALS) SYSTOLIC (NORMALS) IVSd 1.4 (0.6-1.2) LA Diam 4.3 (1.9-4.0) LVEF 57% LVIDd 4.9 (3.5-5.7) LVIDs 3.4 (2.0-3.5) %FS 30% LVPWd 1.6 (0.6-1.2) Ao Diam 3.0 (2.0-3.7) 2 DIMENSIONAL ASSESSMENT: RIGHT ATRIUM: NORMAL LEFT ATRIUM: ENLARGED RIGHT VENTRICLE: NORMAL LEFT VENTRICLE: MODERATE LEFT VENTRICULAR HYEPRTROPHY TRICUSPID VALVE: MODERATE TO SEVERE TRICUSPID REGURGITATION MITRAL VALVE: MODERATE MITRAL REGURGITATION PULMONIC VALVE: MODERATE PULMONIC INSUFFICIENCY AORTIC VALVE: MILD AORTIC INSUFFICIENCY PERICARDIAL EFFUSION: SMALL AORTIC ROOT: NORMAL LEFT VENTRICULAR WALL MOTION: NORMAL DOPPLER/COLOR FLOW: SEE BELOW COMMENTS: 1. NORMAL LEFT VENTRICULAR EJECTION FRACTION 55-60% WITH NORMAL WALL MOTION. 2. MODERATE CONCENTRIC LEFT VENTRICULAR HYPERTROPHY 3. SEVERE TRICUSPID REGURGITATION 4. MODERATE TO SEVERE MITRAL REGURGITATION 5. LEFT ATRIAL ENLARGEMENT 6. MODERATE PULMONIC INSUFFICIENCY AND MILD AORTIC INSUFFICIENCY 7. SEVERE PULMONARY HYPERTENSION WITH RIGHT VENTRICULAR SYSTOLIC PRESSURE GREATER THAN 80 mmHg TECHNOLOGIST: JAIR EAST
--- NOTE | 2022-05-11 13:54 | TREADPHA ---
DX: NON ST ELEVATION MYOCARDIAL INFARCTION Date of Study: 05/11/2022 Ht: 5' 3 " Wt: 139 lb 0 oz Consulting Physician: RAMONA MEDICATIONS: HISTORY: END STAGE RENAL DISEASE PHYSICIAL EXAMINATION: RESTING B.P.: 187/119 RESTING H.R.: 87 RESTING EKG: NORMAL SINUS PROTOCOL: PHARMACOLOGIC EXERCISE TIME: 3:30 B.P. AT [place] STRESS: 199/89 IMPRESSION: LEXISCAN INJECTED. CARDIOLITE INJECTED (SEE NUCLEAR MEDICINE REPORT). NO VENTRICULAR TACHYCARDIA/ SUPRAVENTRICULAR TACHYCARDIA. COMPLAINTS OF SHORTNESS OF BREATH. NO ARRHYTHMIAS. NO ELECTROCARDIOGRAM CHANGES OF ISCHEMIA.
[2022-05-11] MEDS: DIPHENHYDRAMINE 50 MG/ML VIAL IV ONE ×2 (15:53→16:15)
--- NOTE | 2022-05-11 16:41 | P.PN ---
Subjective Date of Service: 05/11/22 Chief Complaint: Chest Pain Patient has no new complaint. Her blood pressure is severely elevated. Physical Examination - Vital Signs Temperature: 98.7 F Blood Pressure: 220/123 Pulse: 96 Respirations: 20 Pulse Ox (%): 98 Assessment And Plan - Plan Physical exam GEN: alert, oriented, NAD CV: Regular rate and rhythm, 1+ bilateral lower extremity edema, facial edema. Pulm: Nonlabored breathing, clear to auscultation bilaterally. ABD: Soft, nontender, nondistended Neuro: Normal speech, normal affect Problem List Chest pain RUQ/Epigastric tenderness acute volume overload secondary to ESRD ESRD on HD Accelerated hypertension Pulmonary hypertension Severe mitral regurgitation Severe tricuspid regurgitation Edema is improving with hemodialysis RUQ tenderness on exam resolved CT and U/S with gallbladder wall thickening no other signs/symptoms for acute cholecystitis beyond tenderness - no fever, no leukocytosis, no stone protonix started for epigastric pain trop trended flat, but elevated cardiology consulted-suspect demand ischemia. Nuclear stress test did not show any stress-induced ischemia. Echocardiogram results reviewed and reported normal EF, severe mitral and prosthetic regurgitation as well as severe pulmonary hypertension. Nephrology is following for hemodialysis. Systolic blood pressure has been in the 200s today, associated with tachycardia Added hydralazine and metoprolol for BP. VTE: heparin Code: full Dispo: home once clinically stable. Time Spent Managing Pts Care (In Minutes): 28
--- NOTE | 2022-05-11 19:43 | P.PN ---
Date of Service: 05/11/22 Vital Signs Temp Pulse Resp BP Pulse Ox 98.7 F 94 H 20 149/76 H 98 05/11/22 16:44 05/11/22 18:24 05/11/22 16:44 05/11/22 18:24 05/11/22 16:44 Medications Acetaminophen (Acetaminophen 325 Mg Tablet) 650 mg PO Q6H PRN PRN Reason: Pain scale 2-4 (Mild) Last Admin: 05/10/22 19:38 Dose: 650 mg Acetaminophen/Codeine Phosphate (Codeine 30mg/Apap 300mg Tab) 1 tab PO Q8H PRN PRN Reason: Pain scale 8-10 (Severe) Last Admin: 05/11/22 09:32 Dose: 1 tab Aspirin (Aspirin Ec 81 Mg Tab) 81 mg PO DAILY [facility] Last Admin: 05/11/22 09:27 Dose: 81 mg Docusate Sodium (Docusate Na 100 Mg Cap) 100 mg PO BID [facility] Last Admin: 05/11/22 09:27 Dose: 100 mg Ergocalciferol (Drisdol (Vitamin D=Ergocalciferol) 87069 Unit Cap) 50,000 unit PO Q7D@0900 [facility] Heparin Sodium (Porcine) (Heparin 1,000 Unit/Ml Vial) 3,000 unit IV EVERY HD PRN PRN Reason: Prevent Lines Clotting Last Admin: 05/10/22 09:17 Dose: 3,000 unit Hydralazine HCl (Hydralazine Hcl 20 Mg/Ml Vial) 10 mg IV Q6HP PRN PRN Reason: FOR SBP>160 OR DBP>100 MMHG Last Admin: 05/11/22 07:44 Dose: 10 mg Hydralazine HCl (Hydralazine Hcl 25 Mg Tablet) 25 mg PO TID [facility] Last Admin: 05/11/22 12:51 Dose: 25 mg Albumin Human (Albumin 25%) 50 mls @ 100 mls/hr IV EVERY HD [facility] Mannitol (Mannitol 25% 12.5 Gm/50 Ml Vial) 12.5 gm IV EVERY HD PRN PRN Reason: Titrate to SBP (MUST DEFINE) Melatonin (Melatonin 5 Mg Tablet) 10 mg PO BEDTIME PRN PRN PRN Reason: INSOMNIA Last Admin: 05/10/22 20:56 Dose: 10 mg Metoprolol Tartrate (Metoprolol Tar 25 Mg Tab) 25 mg PO BID 6AM 6PM [facility] Last Admin: 05/11/22 18:41 Dose: 25 mg Nifedipine (Nifedipine Xl 90 Mg Tablet) 90 mg PO DAILY [facility] Last Admin: 05/11/22 09:27 Dose: 90 mg Ondansetron HCl (Ondansetron 4 Mg/2 Ml Vial) 4 mg IV Q6HP PRN PRN Reason: NAUSEA / VOMITING Last Admin: 05/11/22 09:24 Dose: 4 mg Pantoprazole Sodium (Pantoprazole 40mg Tablet) 40 mg PO BIDAC [facility]; Protocol Last Admin: 05/11/22 16:30 Dose: Not Given Sevelamer Carbonate (Sevelamer Carbonate 800 Mg Tablet) 800 mg PO TIDWM [facility] Last Admin: 05/11/22 17:00 Dose: Not Given Sodium Chloride (Flush Normal Saline 10 Ml) 10 ml IV BID [facility] Last Admin: 05/11/22 09:27 Dose: 10 ml Vitamin B Complex/Vit C/Folic Acid (Multivitamins,Therapeut 1 Tab) 1 tab PO DA HIMA [facility] Last Admin: 05/11/22 09:28 Dose: 1 tab Assessment/ Plan: Nephrology Feeling better No chest pain No dyspnea She wants to go home No acute events overnight Vitals, medications, blood work and imaging reviewed in the chart General: In no apparent distress, Oriented x3, Cooperative HEENT: Atraumatic Neck: Supple Respiratory: Diminished Cardiovascular: Edema Gastrointestinal: Soft and benign Musculoskeletal: No clubbing, No contractures Integumentary: No rashes, No cyanosis Neurological: Normal speech Laboratory Data (last 24 hrs) 05/09/22 05:28: Sodium 138, Potassium 4.2, BUN 32 H, Creatinine 4.91 H, Glucose 122 H, Magnesium 2.3, Total Bilirubin 0.5, AST 20, ALT 33, Alkaline Phosphatase 101 05/09/22 05:28: WBC 6.60, Hgb 12.0, Hct 36.5, Plt Count 254 Imagings Data: EXAM DESCRIPTION: CT - Abdomen Pelvis Wo Contrast - 05/07/2022 2:12 pm CLINICAL HISTORY: Abdominal pain COMPARISON: 2020 TECHNIQUE: Computed axial tomography of the abdomen and pelvis was obtained. IV and oral contrast were not requested. All CT scans are performed using dose optimization technique as appropriate and may include automated exposure control or mA/KV adjustment according to patient size. FINDINGS: The evaluation of solid organs, vessels and bowel is limited secondary to the lack of contrast administration. The heart is moderately enlarged. Small pericardial effusion Mild to moderate bilateral lower lobe opacities. Liver, spleen, pancreas, adrenals and kidneys grossly normal. Small amount of ascites abdomen. Small to moderate amount of ascites pelvis. Normal appendix. No evidence of diverticulitis. Diffuse edema within the subcutaneous tissues Gallbladder wall appears thickened IMPRESSION: Mild to moderate bibasilar lung opacities may represent pneumonia Small amount of ascites abdomen. Small to moderate amount of ascites pelvis. Apparent thickening of the wall of gallbladder may be secondary to hypoalbuminemia. If the patient has clinical symptoms to suggest cholecystitis then ultrasound would be recommended Reason for Exam: CHEST PAIN Report Status: Signed EXAM DESCRIPTION: Joseph Single View05/07/2022 8:30 am CLINICAL HISTORY: Chest pain COMPARISON: August 2021 FINDINGS: The lungs appear clear of acute infiltrate. The heart is moderately to markedly enlarged IMPRESSION: No acute abnormalities displayed Conclusions/Impression: ESRD on HD -Acute HD as ordered -Seen and examined on HD HTN with CKD/ CHF -Continue Nifedipine Diastolic CHF, A/C -Low sodium diet -Daily weight -Acute HD with UF -Echocardiogram pending -Follow up with cardiology IFG A1C 5.6 -Low sugar diet Anemia in CKD Iron Deficiency -Retacrit prn CKD MBD -Continue Ergo -Continue Renvela
[2022-05-11] MEDS: MELATONIN 5 MG TABLET PO PRN (20:27)
[2022-05-11] MEDS ORDERED: DIPHENHYDRAMINE 25 MG TAB/CAP PO ONE (20:39)
[2022-05-12] MEDS: CODEINE 30MG/APAP 300MG TAB PO PRN (04:02)
[2022-05-12] MEDS: HYDRALAZINE HCL 20 MG/ML VIAL IV PRN (04:03)
[2022-05-12] MEDS: METOPROLOL TAR 25 MG TAB PO SCH (05:20)
[2022-05-12 08:11] VITALS: BP 173/113; TEMP 98.5
[2022-05-12] MEDS: MULTIVITAMINS,THERAPEUT 1 TAB PO SCH (08:18)
[2022-05-12] MEDS: PANTOPRAZOLE 40MG TABLET PO SCH (08:18)
[2022-05-12] MEDS: NIFEDIPINE XL 90 MG TABLET PO SCH (08:18)
[2022-05-12] MEDS: DOCUSATE NA 100 MG CAP PO SCH (08:18)
[2022-05-12] MEDS: HYDRALAZINE HCL 25 MG TABLET PO SCH (08:18)
[2022-05-12] MEDS: ASPIRIN EC 81 MG TAB PO SCH (08:18)
[2022-05-12] MEDS: SEVELAMER CARBONATE 800 MG TABLET PO SCH (08:18)
[2022-05-12] MEDS ORDERED: atenoloL 50 MG TAB PO SCH (08:57)
[2022-05-12] MEDS ORDERED: DOXAZOSIN 4 MG TAB PO SCH (09:00)
[2022-05-12 09:23] VITALS: O2SAT 97
--- NOTE | 2022-05-12 09:41 | P.DS ---
Admission Date: 05/09/22 Discharge Date: 05/12/22 Disposition: ROUTINE DISCHARGE Discharge Condition: FAIR Reason for Admission: Chest Pain Brief History of Present Illness: 37yo F, PMH: ESRD, HTN,presented to the ED due to epigastric/chest pain that began overnight. Pain reported in epigastric/lower chest region. Patient had nausea and had an episode of emesis. Had dialysis days are typically T-T-S, but she told ED she had dialysis on Tuesday due to volume overload. Workup in ED noted elevated BNP, troponin, and CXR with edema / possible effusions. Patient hospitalized for further management of chest pain and volume overload. Hospital Course: Diagnosis Chest pain RUQ/Epigastric tenderness acute volume overload secondary to ESRD ESRD on HD Accelerated hypertension Pulmonary hypertension Severe mitral regurgitation Severe tricuspid regurgitation Patient admitted to the medical floor. Seen by nephrology and underwent dialysis on 2 consecutive days. Had generalized edema improved with dialysis She was complaining of RUQ tenderness. CT and U/S with gallbladder wall thickening no other signs/symptoms for acute cholecystitis. She was treated with protonix for epigastric pain/GERD trop trended flat, but elevated cardiology consulted-suspected demand ischemia. Nuclear stress test did not show any stress-induced ischemia. Echocardiogram results reviewed and reported normal EF, severe mitral and prosthetic regurgitation as well as severe pulmonary hypertension. Systolic blood pressure was up to the 200s, associated with tachycardia Added hydralazine and metoprolol for BP. Later patient was switched to her usual home antihypertensives which comprises-doxazosin, nifedipine and beta- xander. Nephrology recommend atenolol 50 mg daily for beta-xander. Patient is given refill for her antihypertensives. ACS ruled out, stress tests is negative for acute ischemia. Patient is deemed stable for discharge. Vital Signs/Physical Exam: Temp Pulse Resp BP Pulse Ox 98.5 F 74 19 173/113 H 98 05/12/22 08:00 05/12/22 08:00 05/12/22 08:00 05/12/22 08:00 05/12/22 08:00 General: Alert, In no apparent distress, Oriented x3 HEENT: PERRLA Neck: JVD not distended Respiratory: Clear to auscultation bilaterally, Normal air movement Cardiovascular: Regular rate/rhythm, Normal S1 S2, Edema (Trace bilateral lower extremity edema) Gastrointestinal: Soft and benign, Non-distended Musculoskeletal: No swelling Neurological: Normal strength at 5/5 x4 extr Laboratory Data at Discharge: WBC 6.40 K/uL (4.3-10.9) 05/10/22 02:51 Hgb 12.0 g/dL (12.0-15.0) 05/10/22 02:51 Hct 37.0 % (36.0-45.0) 05/10/22 02:51 Plt Count 276 K/uL (152-406) 05/10/22 02:51 PT 13.9 SECONDS (9.5-12.5) H 05/07/22 08:39 INR 1.26 05/07/22 08:39 Sodium 136 mmol/L (136-145) 05/11/22 06:05 Potassium 4.9 mmol/L (3.5-5.1) D 05/11/22 06:05 BUN 28 mg/dL (7-18) H 05/11/22 06:05 Creatinine 4.74 mg/dL (0.55-1.3) H 05/11/22 06:05 Glucose 96 mg/dL (74-106) 05/11/22 06:05 Phosphorus 4.0 mg/dL (2.5-4.9) 05/11/22 06:05 Magnesium 2.4 mg/dL (1.8-2.4) 05/10/22 02:51 Total Bilirubin 0.5 mg/dL (0.2-1.0) 05/09/22 05:28 AST 20 U/L (15-37) 05/09/22 05:28 ALT 33 U/L (12-78) 05/09/22 05:28 Alkaline Phosphatase 101 U/L (45-117) 05/09/22 05:28 Lipase 83 U/L (73-393) 05/07/22 08:39 Home Medications: Doxazosin Mesylate 1 tab PO BID #60 tab 05/12/22 Heparin [Heparin 1,000 units/mL *] 3,000 unit IV EVERY HD PRN vial 05/12/22 Mannitol 25% [Mannitol*] 12.5 gm IV EVERY HD PRN vial 05/12/22 Nifedipine Xl [Procardia Xl*] 90 mg PO DAILY #30 tab 05/12/22 Pantoprazole [Protonix Tab*] 40 mg PO DAILY #30 tab 05/12/22 Sevelamer Carbonate [Renvela*] 800 mg PO TIDWM #90 tab 05/12/22 Spironolactone [Aldactone] 50 mg PO DAILY #30 tablet 05/12/22 Vitamin D [Drisdol*] 50,000 unit PO Q7D@0900 #4 cap 05/12/22 atenoloL [Tenormin*] 50 mg PO [id number] #30 tab 05/12/22 New Medications: Spironolactone [Aldactone] 50 mg PO DAILY #30 tablet Doxazosin Mesylate 1 tab PO BID #60 tab Vitamin D [Drisdol*] 50,000 unit PO Q7D@0900 #4 cap Nifedipine Xl [Procardia Xl*] 90 mg PO DAILY #30 tab Pantoprazole [Protonix Tab*] 40 mg PO DAILY #30 tab Sevelamer Carbonate [Renvela*] 800 mg PO TIDWM #90 tab atenoloL [Tenormin*] 50 mg PO [id number] #30 tab Followup: Sami Monge DO [ACTIVE - CAN ADMIT] - (follow up with your HD clinic and the Dr as scheduled) Cristopher Kam MD [ACTIVE - CAN ADMIT] - 1-2 Weeks (call for an apointment) Time spent managing pt's care (in minutes): 34
[2022-05-16] MEDS ORDERED: DRISDOL (VITAMIN D=ERGOCALCIFEROL) 50000 UNIT CAP PO SCH (09:00)
== END 2022-05-12 10:00 | disposition home or self-care (01) | DRG 640 ==
LOC: ER 08:06 → ERHOLD 12:48 → 4TH 05-08 17:37 → OBSVTOIN 05-09 11:00
PROVIDERS: ADMIT Hospitalist; ATTEND Internal Medicine
PROC: 5A1D70Z Performance of Urinary Filtration, Intermittent, Less than 6 Hours Per Day (ICD-10-PCS; principal; 2022-05-08)
DX: E87.70 Fluid overload, unspecified (principal); I50.33 Acute on chronic diastolic (congestive) heart failure; N18.6 End stage renal disease; I13.2 Hypertensive heart and chronic kidney disease with heart failure and with stage 5 chronic kidney disease, or end stage renal disease; D63.1 Anemia in chronic kidney disease; K21.9 Gastro-esophageal reflux disease without esophagitis; I08.1 Rheumatic disorders of both mitral and tricuspid valves; I27.20 Pulmonary hypertension, unspecified; F17.210 Nicotine dependence, cigarettes, uncomplicated; R73.01 Impaired fasting glucose; R77.8 Other specified abnormalities of plasma proteins; R00.0 Tachycardia, unspecified; R07.9 Chest pain, unspecified; Z99.2 Dependence on renal dialysis; Z98.51 Tubal ligation status; Z91.15 Patient's noncompliance with renal dialysis; Z28.310 Unvaccinated for COVID-19; Z79.899 Other long term (current) drug therapy; Z20.822 Contact with and (suspected) exposure to COVID-19
CPT/HCPCS: 0241U; 36415; 71045; 74176; 76705; 78452; 80048; 80053; 80069; 80076; 81003; 81025; 83036; 83690; 83735; 83880; 84100; 84484; 85025; 85027; 85610; 90935; 93005; 93017; 93306; 94760; 99285; A9500; G0378; J0360; J1200; J1644; J2405; J2543; J2785; J3010

== ENCOUNTER 2023-02-05 06:29 | Inpatient (IN) | payer OTHER ==
--- OUTSIDE RECORDS SUMMARY | 2023-02-05 06:43 | XMS REPORT | Continuity of Care Document ---
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 caffeine 00:00: 04:59 mouth [place] (EXCEDRIN) 00 :00 every 6 Medica l 250-250-65 (six) Branch mg per hours as tablet needed for Pain for up to 14 days. sevelamer 2022- Yes [id number] 800mg Take 1 [facility] 800 mg 6-21 07-06 tablet by ity of tablet 00:00: 04:59 mouth in [place] 00 :00 the Medical morning Branch and 1 tablet at noon and 1 tablet in the evening. Take with meals. Do all this for 14 days. methocarbam 2022- Yes [id number] 500mg Take 500 [facility] oL 1,000 mg 6-21 07-06 mg by ity of Tab 00:00: 04:59 mouth 4 [place] 00 :00 (four) Medical times [place] daily for 14 days. aspirin-sallie 2022- Yes [id number] 1{tbl} Take 1 [facility] taminophen- 6-21 07-06 tablet by it y of caffeine 00:00: 04:59 mouth [place] (EXCEDRIN) 00 :00 every 6 Medica l 250-250-65 (six) Branch mg per hours as tablet needed for Pain for up to 14 days. sevelamer 2022- Yes [id number] 800mg Take 1 [facility] 800 mg 6-21 07-06 tablet by ity of tablet 00:00: 04:59 mouth in [place] 00 :00 the Medical morning Branch and 1 tablet at noon and 1 tablet in the evening. Take with meals. Do all this for 14 days. methocarbam 2022- Yes [id number] 500mg Take 500 Univers oL 1,000 mg 6-21 07-06 mg by ity of Tab 00:00: 04:59 mouth 4 [place] 00 :00 [facility] times [place] daily for 14 days. aspirin-sallie 2022- Yes [id number] 1{tbl} Take 1 [facility] taminophen- 6-21 07-06 tablet by it y of caffeine 00:00: 04:59 mouth [place] (EXCEDRIN) 00 :00 every 6 Medica l 250-250-65 (six) Branch mg per hours as tablet needed for Pain for up to 14 days. sevelamer 2022- Yes [id number] 800mg Take 1 [facility] 800 mg 6-21 07-06 tablet by ity of tablet 00:00: 04:59 mouth in [place] 00 :00 the [facility] morning Branch and 1 tablet at noon and 1 tablet in the evening. Take with meals. Do all this for 14 days. methocarbam 2022- Yes [id number] 500mg Take 500 [facility] oL 1,000 mg 6-21 07-06 mg by ity of Tab 00:00: 04:59 mouth 4 [place] 00 :00 [facility] times [place] daily for 14 days. aspirin-sallie 2022- Yes [id number] 1{tbl} Take 1 [facility] taminophen- 6-21 07-06 tablet by it y of caffeine 00:00: 04:59 mouth [place] (EXCEDRIN) 00 :00 every 6 Medica l 250-250-65 (six) Branch mg per hours as tablet needed for Pain for up to 14 days. sevelamer 2022- Yes [id number] 800mg Take 1 [facility] 800 mg 6-21 07-06 tablet by ity of tablet 00:00: 04:59 mouth in [place] 00 :00 the [facility] morning Branch and 1 tablet at noon and 1 tablet in the evening. Take with meals. Do all this for 14 days. methocarbam 2022- Yes [id number] 500mg Take 500 [facility] oL 1,000 mg 6-21 07-06 mg by ity of Tab 00:00: 04:59 mouth 4 [place] 00 :00 (four) Medical times [place] daily for 14 days. aspirin-sallie 2022- Yes [id number] 1{tbl} Take 1 [facility] taminophen- 6-21 07-06 tablet by it y of caffeine 00:00: 04:59 mouth [place] (EXCEDRIN) 00 :00 every 6 Medica l 250-250-65 (six) Branch mg per hours as tablet needed for Pain for up to 14 days. sevelamer 2022- Yes [id number] 800mg Take 1 [facility] 800 mg 6-21 07-06 tablet by ity of tablet 00:00: 04:59 mouth in [place] 00 :00 the Medical morning Branch and 1 tablet at noon and 1 tablet in the evening. Take with meals. Do all this for 14 days. methocarbam 2022- Yes [id number] 500mg Take 500 Univers oL 1,000 mg 6-21 07-06 mg by ity of Tab 00:00: 04:59 mouth 4 [place] 00 :00 [facility] Medical times [place] daily for 14 days. aspirin-sallie 2022- Yes [id number] 1{tbl} Take 1 Univers taminophen- 6-21 07-06 tablet by it y of caffeine 00:00: 04:59 mouth [place] (EXCEDRIN) 00 :00 every 6 Medica l 250-250-65 (six) Branch mg per hours as tablet needed for Pain for up to 14 days. sevelamer 2022- Yes [id number] 800mg Take 1 [facility] 800 mg 6-21 07-06 tablet by ity of tablet 00:00: 04:59 mouth in [place] 00 :00 the Medical morning Branch and 1 tablet at noon and 1 tablet in the evening. Take with meals. Do all this for 14 days. amoxicillin 2022- Yes [id number] 500mg Take 1 Univers -pot 6-21 07-04 tablet by ity of clavulanate 00:00: 04:59 mouth in [place] 500 mg 00 :00 the Medical 500-125 mg morning Branch tablet and 1 tablet in the evening. Do all this for 12 days. amoxicillin 2022- Yes [id number] 500mg Take 1 Univers -pot 6-21 07-04 tablet by ity of clavulanate 00:00: 04:59 mouth in [place] 500 mg 00 :00 the Medical 500-125 mg morning Branch tablet and 1 tablet in the evening. Do all this for 12 days. amoxicillin 2022- Yes [id number] 500mg Take 1 Univers -pot 6-21 07-04 tablet by ity of clavulanate 00:00: 04:59 mouth in [place] 500 mg 00 :00 the Medical 500-125 mg morning Branch tablet and 1 tablet in the evening. Do all this for 12 days. amoxicillin 2022- Yes [id number] 500mg Take 1 Univers -pot 6-21 07-04 tablet by ity of clavulanate 00:00: 04:59 mouth in [place] 500 mg 00 :00 the Medical 500-125 mg morning Branch tablet and 1 tablet in the evening. Do all this for 12 days. amoxicillin 2022- Yes [id number] 500mg Take 1 Univers -pot 6-21 07-04 tablet by ity of clavulanate 00:00: 04:59 mouth in [place] 500 mg 00 :00 the Medical 500-125 mg morning Branch tablet and 1 tablet in the evening. Do all this for 12 days. amoxicillin 2022- Yes [id number] 500mg Take 1 Univers -pot 6-21 07-04 tablet by ity of clavulanate 00:00: 04:59 mouth in [place] 500 mg 00 :00 the Medical 500-125 mg morning Branch tablet and 1 tablet in the evening. Do all this for 12 days. amoxicillin 2022- Yes [id number] 500mg Take 1 Univers -pot 6-21 07-04 tablet by ity of clavulanate 00:00: 04:59 mouth in [place] 500 mg 00 :00 the Medical 500-125 mg morning Branch tablet and 1 tablet in the evening. Do all this for 12 days. HYDROcodone 2022- Yes [id number] 1{tbl} Take 1 U nivers -acetaminop 6-21 06-29 tablet by it y of hen 10-325 00:00: 04:59 mouth [place] mg tablet 00 :00 every 6 Medical (six) Branch hours as needed for Pain (scale 7-10) for up to 7 days. Indication s: acute pain HYDROcodone 2022- Yes [id number] 1{tbl} Take 1 U nivers -acetaminop 6-21 06-29 tablet by it y of hen 10-325 00:00: 04:59 mouth [place] mg tablet 00 :00 every 6 Medical (six) Branch hours as needed for Pain (scale 7-10) for up to 7 days. Indication s: acute pain HYDROcodone 2022- Yes [id number] 1{tbl} Take 1 U nivers -acetaminop 6-21 06-29 tablet by it y of hen 10-325 00:00: 04:59 mouth [place] mg tablet 00 :00 every 6 Medical (six) Branch hours as needed for Pain (scale 7-10) for up to 7 days. Indication s: acute pain HYDROcodone 2022- Yes [id number] 1{tbl} Take 1 U nivers -acetaminop 6-21 06-29 tablet by it y of hen 10-325 00:00: 04:59 mouth [place] mg tablet 00 :00 every 6 Medical (six) Branch hours as needed for Pain (scale 7-10) for up to 7 days. Indication s: acute pain HYDROcodone 2022- Yes [id number] 1{tbl} Take 1 U nivers -acetaminop 6-21 06-29 tablet by it y of hen 10-325 00:00: 04:59 mouth [place] mg tablet 00 :00 every 6 Medical (six) Branch hours as needed for Pain (scale 7-10) for up to 7 days. Indication s: acute pain HYDROcodone 2022- Yes [id number] 1{tbl} Take 1 U nivers -acetaminop 6-21 06-29 tablet by it y of hen 10-325 00:00: 04:59 mouth [place] mg tablet 00 :00 every 6 Medical (six) Branch hours as needed for Pain (scale 7-10) for up to 7 days. Indication s: acute pain HYDROcodone 2022- Yes [id number] 1{tbl} Take 1 U nivers -acetaminop 12-01 tablet by it y of hen 10-325 00:00: 04:59 mouth [place] mg tablet 00 :00 every 6 Medical (six) Branch hours as needed for Pain (scale 7-10) for up to 7 days. Indication s: acute pain furosemide 2022-0 2022- No [id number] 80mg Take 1 Univers 80 mg 12-01 tablet by ity of tablet 00:00: 00:00 mouth in [place] 00 :00 the Medical morning Branch and 1 tablet in the evening. Do all this for 30 days. lisinopriL 2022-0 2022- No [id number] 40mg Take 1 Univers 40 mg 12-01 tablet by ity of tablet 00:00: 00:00 mouth in [place] 00 :00 the [facility] morning [place] for 30 days. furosemide 2022-0 2022- No [id number] 80mg Take 1 [facility] 80 mg 12-01 tablet by ity of tablet 00:00: 00:00 mouth in [place] 00 :00 the [facility] morning Branch and 1 tablet in the evening. Do all this for 30 days. lisinopriL 2022-0 2022- No [id number] 40mg Take 1 Univers 40 mg 12-01 tablet by ity of tablet 00:00: 00:00 mouth in [place] 00 :00 the [facility] morning [place] for 30 days. ondansetron 2022-0 2022- No 4mg 4 mg, Slow Univers (ZOFRAN 11-30 IV Push, ity of (PF)) 23:29: 13:09 PRN, 1 [place] injection 4 24 :00 dose, Medical mg Starting Branch on Tue11/30/22 at 1829, Until Discontinu ed, Routine, Nausea and Vomiting (N/V), PACU ondansetron 2022-0 2022- No 4mg 4 mg, Slow Univers (ZOFRAN 6-30 11- IV Push, ity of (PF)) 23:29: 13:09 PRN, 1 [place] injection 4 24 :00 dose, Medical mg Starting Branch on Tue11/30/22 at 1829, Until Discontinu ed, Routine, Nausea and Vomiting (N/V), PACU bupivacaine 2022- No PRN, Unive rs (preserv 11-30 Starting ity of free) 21:51: 23:23 on Tue [place] (SENSORCAIN 00 :41 11/30/22 at Ar dical E [facility]) 0.25 1651, Branch % (2.5 Until e mg/mL) 11/30/22 at injection 1823, Routine, Intra-op heparin 2022- No PRN, Univers 10,000 11-30 Starting ity of units in NS 19:41: 23:23 on Tue [place] 1000 mL for 00 :41 11/30/22 at Ar dical vascular 1441, Branch Intra-op mupirocin Yes Nasal, Univer s (BACTROBAN 6-19 Q12H, For ity of NASAL OINT) 22:53: 5 days, [place] 2 % nasal 22 First dose Medi cinthia ointment conditiona Branc h l, Routine mupirocin Yes Nasal, Univer s (BACTROBAN 6-19 Q12H, For ity of NASAL OINT) 22:53: 5 days, [place] 2 % nasal 22 First dose Medi cinthia ointment conditiona Branc h l, Routine heparin Yes 2000U PRN - SEE Univ ers 1,000 6-19 INSTRUCTIO ity of unit/mL (10 22:53: NS, [place] mL) - 13 Starting Medical dialysis on Mon Branch catheter 11/29/22 at care 1753, Until Discontinu ed, Routine
For Priming of Ports:&nbs p; &n bsp; After initial saline flush, prime each port with heparin according to the priming volume listed on each catheter port for catheter lock.
heparin 0 Yes 2000U PRN - SEE Univ ers 1,000 6-19 INSTRUCTIO ity of unit/mL (10 22:53: NS, [place] mL) - 13 Starting Medical dialysis on Mon Branch catheter 11/29/22 at care 1753, Until Discontinu ed, Routine
For Priming of Ports:&nbs p; &n bsp; After initial saline flush, prime each port with heparin according to the priming volume listed on each catheter port for catheter lock.
sennosides Yes 8.6mg 8.6 mg, Uni vers (SENOKOT) 11-29 Oral, ity of tablet 8.6 14:00: DAILY, [place] mg 00 First dose Medical on [facility] 11/29/22 at 0900, Until Discontinu ed, Routine sennosides Yes 8.6mg 8.6 mg, Uni vers (SENOKOT) 11-29 Oral, ity of tablet 8.6 14:00: DAILY, [place] mg 00 First dose Medical on [facility] 11/29/22 at 0900, Until Discontinu ed, Routine benzocaine- 2022- No 1{lozen 1 [place], Univers menthoL 11-29-20 ge} Oral, ity of (CEPACOL 11:37: 20:43 Q4HPRN, [place] SORE THROAT 46 :48 Starting Medi cinthia (LAUREL-MEN)) on [place] [address] 11/29/22 at Lozenge 0637, Until Tue11/30/22 at 1543, Routine, Sore throat, Tooth pain benzocaine- 2022- No 1{lozen 1 Lozenge, Univers menthoL 11-29-20 ge} Oral, ity of (CEPACOL 11:37: 20:43 Q4HPRN, [place] SORE THROAT 46 :48 Starting Medi cinthia (LAUREL-MEN)) on [place] [address] 11/29/22 at [place] 0637, Until Tue11/30/22 at 1543, Routine, Sore throat, Tooth pain hydrOXYzine 2022- No 10mg 10 mg, Uni vers (ATARAX) 11-29 Oral, ity of tablet 10 06:30: 06:30 ONCE, 1 [place] mg 00 :00 dose, On Medical [facility] 11/29/22 at 0130, Routine hydrOXYzine 2022- No 10mg 10 mg, Uni vers (ATARAX) 11-29 Oral, ity of tablet 10 06:30: 06:30 ONCE, 1 [place] mg 00 :00 dose, On Medical [facility] 6/19/23 at 0130, Routine melatonin 2022-2022- No 3mg 3 mg, Univer s (MELATIN) 11-29 Oral, ity of tablet 3 mg 05:16: 05:21 ONCE, 1 [place] 00 :[place] dose, On [facility] 11/29/22 at 0030, Routine melatonin 2022-2022- No 3mg 3 mg, Univer s (MELATIN) 11-29 Oral, ity of tablet 3 mg 05:16: 05:21 ONCE, 1 [place] 00 :[place] dose, On [facility] 11/29/22 at 0030, Routine lactulose 2022-2022- No 30mL 30 mL, Unive rs (CEPHULAC) 11-29 Oral, ity of solution 30 05:15: 05:21 ONCE, 1 [place] mL 00 :00 dose, On [facility] 11/29/22 at 0030, Routine lactulose 2022- No 30mL 30 mL, Unive rs (CEPHULAC) 11-29 Oral, ity of solution 30 05:15: 05:21 ONCE, 1 [place] mL 00 :00 dose, On [facility] 11/29/22 at 0030, Routine heparin 2022-0 Yes 2000U PRN - SEE Univ ers 1,000 6-17 INSTRUCTIO ity of unit/mL (10 16:32: NS, [place] mL) - 47 Starting Medical dialysis on Sat Branch catheter 11/27/22 at care 1132, Until Discontinu ed, Routine
For Priming of Ports:&nbs p; &n bsp; After initial saline flush, prime each port with heparin according to the priming volume listed on each catheter port for catheter lock.
heparin 202-0 Yes 2000U PRN - SEE Univ ers 1,000 6-17 INSTRUCTIO ity of unit/mL (10 16:32: NS, [place] mL) - 47 Starting Medical dialysis on Sat Branch catheter 11/27/22 at care 1132, Until Discontinu ed, Routine
For Priming of Ports:&nbs p; &n bsp; After initial saline flush, prime each port with heparin according to the priming volume listed on each catheter port for catheter lock.
spironolact 2023-0 Yes 50mg 50 mg, Univ ers one 6-17 Oral, ity of (ALDACTONE) 14:00: DAILY, [place] tablet 50 00 First dose Medi [place]inth[place] mg on [facility] 11/27/22 at 0900, Until Discontinu ed, Routine polyethylen 2023-0 Yes 17g 17 g, Unive rs e glycol 6-17 Oral, QAM, ity o f 3350 powder 14:00: First dose [place] 17 g 00 on [facility] 11/27/22 at Branch 0900, Until Discontinu ed, Routine NIFEdipine 2023-0 Yes 90mg 90 mg, Unive rs ER tablet 6-17 Oral, ity of 90 mg 14:00: DAILY, [place] First dose Medical on [facility] 11/27/22 at 0900, Until Discontinu ed, Routine spironolact 3-0 Yes 50mg 50 mg, Univ ers one 6-17 Oral, ity of (ALDACTONE) 14:00: DAILY, [place] tablet 50 00 First dose Medi [place]inth[place] mg on [facility] 11/27/22 at 0900, Until Discontinu ed, Routine polyethylen 3-0 Yes 17g 17 g, Unive rs e glycol 6-17 Oral, QAM, ity o f 3350 powder 14:00: First dose [place] 17 g 00 on [facility] 11/27/22 at Branch 0900, Until Discontinu ed, Routine NIFEdipine 3-0 Yes 90mg 90 mg, Unive rs ER tablet 6-17 Oral, ity of 90 mg 14:00: DAILY, [place] First dose Medical on [facility] 11/27/22 at 0900, Until Discontinu ed, Routine Lidocaine 2023-0 202- No 1{patch 1 Patch, Univers (LIDOCARE) 11-27 06-20 } Topical, ity of 4 % patch 1 14:00: 20:43 Administer [place] Patch 00 :48 over 12 Medical Hours, Branch DAILY, First dose on [facility] 11/27/22 at 0900, Until Discontinu ed, Routine Lidocaine 2023-0 2023- No 1{patch 1 Patch, Univers (LIDOCARE) 11-27 06-20 } Topical, ity of 4 % patch 1 14:00: 20:43 Administer [place] Patch 00 :48 over 12 Medical Hours, [place] DAILY, First dose on [facility] 11/27/22 at 0900, Until Discontinu ed, Routine gabapentin 2022-0 Yes 100mg 100 mg, Uni vers (NEURONTIN) 17 Oral, TID, it y of capsule 100 13:00: First dose [place] mg 00 on [facility] 11/27/22 at [place] 0800, Until Discontinu ed, Routine gabapentin 2022-0 Yes 100mg 100 mg, Uni vers (NEURONTIN) 17 Oral, TID, it y of capsule 100 13:00: First dose [place] mg 00 on [facility] 11/27/22 at [place] 0800, Until Discontinu ed, Routine benzocaine 2022-2022- No 1{spray 1 [place], Univers (HURRICAINE 11-27 } Oral, Q3H, i ty of ONE) 20 % 04:15: 20:43 First dose [place] mucosal 00 :48 on Tue Medical spray 1 11/26/22 at [place] 2315, Until Discontinu ed, [place] benzocaine 2022-2022- No 1{spray 1 [place], Univers (HURRICAINE 11-27 } Oral, Q3H, i ty of ONE) 20 % 04:15: 20:43 First dose [place] mucosal 00 :48 on Tue Medical spray 1 11/26/22 at [place] 2315, Until Discontinu ed, [place] morpHINE (2 2022- No 2mg 2 mg, Slow Univers mg/mL) 11-27 IV Push, ity of injection 2 01:45: 21:25 Q6HPRN, [place] mg 00 :34 Starting Medical on Tue [place] 11/26/22 at 2045, Until Tue12/01/22 at 1625, Routine, migraine methocarbam 2022- No 500mg 500 mg, U nivers oL 11-27 Oral, QID, ity of (ROBAXIN) 01:45: 12:21 First dose [place] tablet 500 00 :00 on Tue Medical mg 11/26/22 at Branch 2045, Until Discontinu ed, Routine morpHINE (2 2022- No 2mg 2 mg, Slow Univers mg/mL) 11-27 IV Push, ity of injection 2 01:45: 21:25 Q6HPRN, [place] mg 00 :34 Starting Medical on Tue Branch 11/26/22 at 2044, Until 12/01/22 at 1625, Routine, migraine methocarbam 2022- No 500mg 500 mg, U nivers oL 11-27 Oral, QID, ity of (ROBAXIN) 01:45: 12:21 First dose [place] tablet 500 00 :00 on Tue Medical mg 11/26/22 at Branch 2044, Until Discontinu ed, Routine gabapentin 2022- No 300mg 300 mg, Un bal[place] (NEURONTIN) 11-27 Oral, ONCE i ty of capsule 300 01:45: 01:52 NOW, 1 [place] mg 00 :00 dose, On Medical Tue Branch 11/26/22 at 2044, Routine gabapentin 2022- No 300mg 300 mg, Un [place] (NEURONTIN) 11-27 Oral, ONCE i ty of capsule 300 01:45: 01:52 NOW, 1 [place] mg 00 :00 dose, On Medical Tue Branch 11/26/22 at 2044, Routine benzocaine 2022- No 1{spray 1 [place], Univers (HURRICAINE 11-27 } Oral, ity of ONE) 20 % 01:31: 04:02 Q6HPRN, [place] mucosal 54 :30 Starting Medical spray 1 on Fri Branch [place] 11/26/22 at 2030, Until Tue11/26/22 at 2302, Routine, Tooth pain benzocaine 2022- No 1{spray 1 [place], Univers (HURRICAINE 11-27 } Oral, ity of ONE) 20 % 01:31: 04:02 Q6HPRN, [place] mucosal 54 :30 Starting Medical spray 1 on Fri Branch [place] 11/26/22 at 2030, Until Tue11/26/22 at 230, Routine, Tooth pain butalbital- Yes 1{tbl} 1 tablet, Univers acetaminoph 11-27 Oral, ity of en-caff 01:30: Q4HPRNK[place] (ESGIC) 21 Starting Medical 50-325-40 on Tue Branch mg tablet 1 11/26/22 at tablet 2030, Until Discontinu ed, Routine, Headache butalbital- 3-0 Yes 1{tbl} 1 tablet, Univers acetaminoph 6-17 Oral, ity of en-caff 01:30: Q4HPRN, [place] (ESGIC) 21 Starting Medical 50-325-40 on Fri Branch mg tablet 1 11/26/22 at tablet 2030, Until Discontinu ed, Routine, Headache HYDROcodone 3-0 Yes 1{tbl} 1 tablet, Univers -acetaminop 6-17 Oral, ity of hen (NORCO) 01:29: Q6HPRN, [place] 10-325 mg 26 Starting Medica l tablet 1 on Fri Branch tablet 11/26/22 at 2028, Until Discontinu ed, Routine, Pain (scale 7-10) HYDROcodone 2022-0 Yes 1{tbl} 1 tablet, Univers -acetaminop 6-17 Oral, ity of hen (NORCO) 01:29: Q6HPRN, [place] 10-325 mg 26 Starting Medica l tablet 1 on Fri Branch tablet 11/26/22 at 2028, Until Discontinu ed, Routine, Pain (scale 7-10) furosemide 3-0 Yes 80mg 80 mg, Unive rs (LASIX) 6-17 Oral, BID, ity of tablet 80 01:00: First dose [place] mg 00 (after Medical last Branch modificati on) on Tue11/26/22 at 1999, Until Discontinu ed, Routine doxazosin 3-0 Yes 8mg 8 mg, Univers (CARDURA) 6-17 Oral, BID, ity of tablet 8 mg 01:00: First dose [place] 00 (after Medical last Branch modificati on) on Tue11/26/22 at 2000, Until Discontinu ed, Routine heparin 2022-0 Yes 5000U 5,000 Univers (porcine) 6-17 Units, ity of injection 01:00: Subcutaneo [place] 5,000 Units 00 us, Q12H, Med ical First dose Branch on Tue11/26/22 at 1999, Until Discontinu ed, Routine ferrous 2023-0 Yes 325mg 325 mg, Univer s sulfate 6-17 Oral, BID, ity of tablet 325 01:00: First dose [place] mg 00 on Fri Medical 11/26/22 at Branch 1999, Until Discontinu ed, Routine furosemide 2022-0 Yes 80mg 80 mg, Unive rs (LASIX) 6-17 Oral, BID, ity of tablet 80 01:00: First dose [place] mg 00 (after Medical last Branch modificati on) on Tue11/26/22 at 2000, Until Discontinu ed, Routine doxazosin 2022-0 Yes 8mg 8 mg, Univers (CARDURA) 6-17 Oral, BID, ity of tablet 8 mg 01:00: First dose [place] 00 (after Medical last Branch modificati on) on Tue11/26/22 at 2000, Until Discontinu ed, Routine heparin 2022-0 Yes 5000U 5,000 Univers (porcine) 6-17 Units, ity of injection 01:00: Subcutaneo [place] 5,000 Units 00 us, Q12H, Med ical First dose Branch on Tue11/26/22 at 1999, Until Discontinu ed, Routine ferrous 2022-0 Yes 325mg 325 mg, Univer s sulfate -17 Oral, BID, ity of tablet 325 01:00: First dose [place] mg 00 on Tue Medical 11/26/22 at Branch 1999, Until Discontinu ed, Routine amoxicillin 2022-0 2022- Yes 500mg 500 mg, U nivers -pot 11-27 Oral, BID, ity of clavulanate 01:00: 00:59 24 doses, [place] 500 mg 00 :00 First dose Medical (AUGMENTIN on Fri Branch 500) 11/26/22 at 500-125 mg 1999, Last tablet 500 dose on mg Tue12/08/22 at 0800, [place]
Re ason for Anti-Infec tive: Documented Infection< br>Documen liya Infection Site: Other<b r>Other site: dental
Duration of Therapy: 14 days amoxicillin 2022-0 2022- Yes 500mg 500 mg, U nivers -pot 11-27 Oral, BID, ity of clavulanate 01:00: 00:59 24 doses, [place] 500 mg 00 :00 First dose Medical (AUGMENTIN on Fri Branch 500) 11/26/22 at 500-125 mg 1999, Last tablet 500 dose on mg Tue12/08/22 at 0800, LANDON
Re ason for Anti-Infec tive: Documented Infection< br>Documen liya Infection Site: Other<b r>Other site: dental
Duration of Therapy: 14 days morpHINE (2 2022-2022- No 2mg 2 mg, Slow Univers mg/mL) 11-26 IV Push, ity of injection 2 22:22: 01:31 Q8HPRN, [place] mg 13 :50 Starting Medical on Tue11/26/22 at 1722, Until Tue11/26/22 at 2030, Routine, migraine morpHINE (2 2022-2022- No 2mg 2 mg, Slow Univers mg/mL) 11-26 IV Push, ity of injection 2 22:22: 01:31 Q8HPRN, [place] mg 13 :50 Starting Medical on Tue11/26/22 at 1722, Until Tue11/26/22 at 2030, Routine, migraine sevelamer 2022-0 Yes 1600mg 1,600 mg, U nivers (RENVELA) 6-16 Oral, TID ity o f tablet 22:00: MEALS, [place] 1,600 mg 00 First dose Medic al on Tue11/26/22 at 1700, Until Discontinu ed, Routine sevelamer 2022-0 Yes 1600mg 1,600 mg, U nivers (RENVELA) 6-16 Oral, TID ity o f tablet 22:00: MEALS, [place] 1,600 mg 00 First dose Medic al on Tue11/26/22 at 1700, Until Discontinu ed, Routine lisinopriL 2022-0 Yes 40mg 40 mg, Unive rs (PRINIVIL,Z 6-16 Oral, ity of ESTRIL) 20:45: DAILY, [place] tablet 40 00 First dose Medi cinthia mg on Tue11/26/22 at 1545, Until Discontinu ed, Routine lisinopriL 2022-0 Yes 40mg 40 mg, Unive rs (PRINIVIL,Z 6-16 Oral, ity of ESTRIL) 20:45: DAILY, [place] tablet 40 00 First dose Medi cinthia mg on Tue Branch 11/26/22 at 1545, Until Discontinu ed, Routine diphenhydrA 2022-0 Yes 25mg 25 mg, Univ ers MINE 6-16 Oral, ity of (BENADRYL) 20:06: Q6HPRN, [place] tablet 25 51 Starting Medica l mg on Fri Branch 11/26/22 at 1506, Until Discontinu ed, Routine, Itching diphenhydrA 2022-0 Yes 25mg 25 mg, Univ ers MINE 6-16 Oral, ity of (BENADRYL) 20:06: Q6HPRN, [place] tablet 25 51 Starting Medica l mg on Fri Branch 11/26/22 at 1506, Until Discontinu ed, Routine, Itching HYDROcodone 2022-0 202- No 1{tbl} 1 tablet, Univers -acetaminop 11-26- Oral, ity of hen (NORCO 20:06: 01:31 Q6HPRN, [place] 5) 5-325 mg 40 :50 Starting Medi cinthia tablet 1 on Tue Branch tablet 11/26/22 at 1506, Until Tue11/26/22 at 2030, Routine, Pain (scale 7-10) HYDROcodone 2022-0 202- No 1{tbl} 1 tablet, Univers -acetaminop 11-26- Oral, ity of hen (NORCO 20:06: 01:31 Q6HPRN, [place] 5) 5-325 mg 40 :50 Starting Medi cinthia tablet 1 on Tue Branch tablet 11/26/22 at 1506, Until Tue11/26/22 at 2030, Routine, Pain (scale 7-10) naloxone 2022-0 Yes .1mg 0.1 mg, Univer s (NARCAN) 11-26 Intravenou ity o f injection 20:06: s, PRN - [place] 0.1 mg 25 SEE Medical INSTRUCTIO Branch NS, Starting on Tue11/26/22 at 1506, Until Discontinu ed, [place], Sedation/R espiratory Depression naloxone 2022-0 Yes .1mg 0.1 mg, Univer s (NARCAN) 6-16 Intravenou ity o f injection 20:06: [place] 0.1 mg 25 SEE Medical INSTRUCTIO Branch NS, Starting on Tue11/26/22 at 1506, Until Discontinu ed, LANDON, Sedation/R espiratory Depression ondansetron 2023-0 Yes 4mg 4 mg, Slow [facility] (ZOFRAN 6-16 IV Push, ity of (PF)) 20:06: Q6HPRN, [place] injection 4 Starting Medi cinthia mg on Tue Branch 11/26/22 at 1506, Until Discontinu ed, Routine, Nausea and Vomiting (N/V) ondansetron 2023-0 Yes 4mg 4 mg, Slow [facility] (ZOFRAN 6-16 IV Push, ity of (PF)) 20:06: Q6HPRN, [place] injection 4 Starting Medi cinthia mg on Tue Branch 11/26/22 at 1506, Until Discontinu ed, Routine, Nausea and Vomiting (N/V) simethicone 2023-0 Yes 160mg 160 mg, [facility] (GAS RELIEF 6-16 Oral, ity of (SIMETHICON 20:03: PC+HSPRN, [place] 52 Starting Medical chewable on Tue Branch tablet 160 11/26/22 at mg 1503, Until Discontinu ed, Routine, Gas simethicone 2023-0 Yes 160mg 160 mg, [facility] (GAS RELIEF 6-16 Oral, ity of (SIMETHICON 20:03: PC+HSPRN, [place] 52 Starting Medical chewable on Tue Branch tablet 160 11/26/22 at mg 1503, Until Discontinu ed, Routine, Gas NIFEdipine 2023-0 Yes 90mg Take 1 Unive rs ER 90 mg 6-16 tablet by ity of tablet 15:07: mouth. [address] Branch NIFEdipine 3-0 Yes 90mg Take 1 Unive rs ER 90 mg 6-16 tablet by ity of tablet 15:07: mouth. [address] Branch lactated 3-0 Yes 1000mL at 20 Univer s ringers IV 6-09 mL/hr, ity of infusion 16:30: 1,000 [place] 1[place]000 [place] 00 IV Medical Infusion, Branch CONTINUOUS , Starting on Tue11/19/22 at 1130, Until Discontinu ed, Routine, PACU lactated 2023-0 2023- No 1000mL at 20 Unive rs ringers IV 6-09 06-09 mL/hr, ity of infusion 16:30: 18:54 1,000 mL, [place] 1,000 mL 00 :21 IV Medical Infusion, Branch CONTINUOUS , Starting on Tue11/19/22 at 1130, Until Tue11/19/22 at 1354, Routine, PACU acetaminoph 2022- No 1{tbl} 1 tablet, Univers en-codeine 11-19 Oral, ity of (TYLENOL 16:16: 16:31 ONCE, 1 [place] #3) 300-30 00 :00 dose, On Medic al mg tablet 1 Tue11/19/22 Br anch tablet at 1130, Routine acetaminoph 2022- No 1{tbl} 1 tablet, Univers en-codeine 11-19 Oral, ity of (TYLENOL 16:16: 16:31 ONCE, 1 [place] #3) 300-30 00 :00 dose, On Medic al mg tablet 1 Tue11/19/22 Br anch tablet at 1130, Routine iopamidol 2022- No PRN, Univers (ISOVUE 11-19 Starting ity of 370-500 mL) 15:59: 16:43 on Fri [place] injection 00 :39 11/19/22 at Medic al 1059, Branch Until Tue11/19/22 at 1143, Routine, Intra-op lidocaine 2022- No PRN, Univers 1% (PF) 11-19 Starting ity of (XYLOCAINE) 15:59: 16:43 on Fri [place] injection 00 :39 11/19/22 at Medic al 1059, Branch Until Tue11/19/22 at 1143, Routine, Intra-op heparin 2022- No PRN, Univers 10,000 11-19 Starting ity of units in NS 15:53: 16:43 on Tue [place] 1000 mL for 00 :39 11/19/22 at [facility] [place] ical vascular 1053, Branch Intra-op NIFEdipine 3-0 Yes 90mg Take 1 Unive rs ER 90 mg - tablet by ity of tablet 11:54: mouth. [address] NIFEdipine 3-0 Yes 90mg Take 1 Unive rs ER 90 mg 6-09 tablet by ity of tablet 11:54: mouth. [address] NIFEdipine 2022-0 Yes 90mg Take 1 Unive rs ER 90 mg 6-09 tablet by ity of tablet 11:54: mouth. [place] 20 Medical Branch metroNIDAZO 3-0 Yes [id number] 500mg Take 1 Univers LE (FLAGYL) 5-17 tablet by ity of 500 mg 00:00: mouth [place] tablet 00 every 12 Medical (twelve) Branch hours. metroNIDAZO 3-0 Yes [id number] 500mg Take 1 Univers LE (FLAGYL) 5-17 tablet by ity of 500 mg 00:00: mouth [place] tablet 00 every 12 Medical (twelve) Branch hours. metroNIDAZO 3-0 Yes [id number] 500mg Take 1 [facility] LE (FLAGYL) 5-17 tablet by ity of 500 mg 00:00: mouth [place] tablet 00 every 12 Medical (twelve) Branch hours. metroNIDAZO 3-0 Yes [id number] 500mg Take 1 [facility] LE (FLAGYL) 5-17 tablet by ity of 500 mg 00:00: mouth [place] tablet 00 every 12 Medical (twelve) Branch hours. metroNIDAZO 2022-0 Yes [id number] 500mg Take 1 [facility] LE (FLAGYL) 5-17 tablet by ity of 500 mg 00:00: mouth [place] tablet 00 every 12 Medical (twelve) Branch hours. metroNIDAZO 2022-0 Yes [id number] 500mg Take 1 [facility] LE (FLAGYL) 5-17 tablet by ity of 500 mg 00:00: mouth [place] tablet 00 every 12 Medical (twelve) Branch hours. metroNIDAZO 3-0 Yes [id number] 500mg Take 1 [facility] LE (FLAGYL) 5-17 tablet by ity of 500 mg 00:00: mouth [place] tablet 00 every 12 Medical (twelve) Branch hours. metroNIDAZO 3-0 Yes [id number] 500mg Take 1 [facility] LE (FLAGYL) 5-17 tablet by ity of 500 mg 00:00: mouth [place] tablet 00 every 12 Medical (twelve) Branch hours. metroNIDAZO 2023-0 Yes [id number] 500mg Take 1 [facility] LE (FLAGYL) 5-17 tablet by ity of 500 mg 00:00: mouth [place] tablet 00 every 12 Medical (twelve) Branch hours. metroNIDAZO 3-0 Yes [id number] 500mg Take 1 [facility] LE (FLAGYL) 5-17 tablet by ity of 500 mg 00:00: mouth [place] tablet 00 every 12 Medical (twelve) Branch hours. metroNIDAZO 2023-0 2023- No [id number] 500mg Take 1 [facility] LE (FLAGYL) 5-17 06-21 tablet by it y of 500 mg 00:00: 00:00 mouth [place] tablet 00 :00 every 12 Medical (twelve) Branch hours. metroNIDAZO 2023-0 2023- No [id number] 500mg Take 1 [facility] LE (FLAGYL) 5-17 06-21 tablet by it y of 500 mg 00:00: 00:00 mouth [place] tablet 00 :00 every 12 Medical (twelve) Branch hours. NIFEdipine 3-0 Yes 90mg Take 1 Unive rs ER 90 mg 5-12 tablet by ity of tablet 10:02: mouth. [address] NIFEdipine 3-0 Yes 90mg Take 1 Unive rs ER 90 mg 5-12 tablet by ity of tablet 10:02: mouth. [address] NIFEdipine 3-0 Yes 90mg Take 1 Unive rs ER 90 mg 5-12 tablet by ity of tablet 10:02: mouth. [address] NIFEdipine 3-0 Yes 90mg Take 1 Unive rs ER 90 mg 5-12 tablet by ity of tablet 10:02: mouth. [address] NIFEdipine 3-0 Yes 90mg Take 1 Unive rs ER 90 mg 5-12 tablet by ity of tablet 10:02: mouth. [address] NIFEdipine 3-0 Yes 90mg Take 1 Unive rs ER 90 mg 5-12 tablet by ity of tablet 10:02: mouth. [address] NIFEdipine 3-0 Yes 90mg Take 1 Unive rs ER 90 mg 5-12 tablet by ity of tablet 10:02: mouth. [address] NIFEdipine 3-0 Yes 90mg Take 1 Unive rs ER 90 mg 5-12 tablet by ity of tablet 10:02: mouth. [address] NIFEdipine 3-0 Yes 90mg Take 1 Unive rs ER 90 mg 5-12 tablet by ity of tablet 10:02: mouth. [address] NIFEdipine 2023-0 Yes 90mg Take 1 Unive rs ER 90 mg 5-12 tablet by ity of tablet 10:02: mouth. [address] atenoloL 25 2022-0 Yes Univer s mg tablet 5-04 ity of 00:00: [place] 00 Medical Branch atenoloL 25 3-0 Yes Univer s mg tablet - ity of 00:00: [place] Medical Branch atenoloL 25 3-0 Yes Univer s mg tablet - ity of 00:00: [place] Medical Branch atenoloL 25 3-0 Yes Univer s mg tablet - ity of 00:00: [place] Medical Branch atenoloL 25 3-0 Yes Univer s mg tablet - ity of 00:00: [place] [address] Medical Branch atenoloL 25 3-0 Yes Univer s mg tablet - ity of 00:00: [place] [address] Medical Branch atenoloL 25 2022-0 Yes Univer s mg tablet - ity of 00:00: [place] [address] Medical Branch atenoloL 25 2022-0 Yes Univer s mg tablet - ity of 00:00: [place] [address] Medical Branch atenoloL 25 2022-0 Yes Univer s mg tablet - ity of 00:00: [place] [address] Medical Branch atenoloL 25 3-0 Yes Univer s mg tablet - ity of 00:00: [place] [address] Medical Branch atenoloL 25 2022-0 Yes Univer s mg tablet - ity of 00:00: [place] [address] Medical Branch atenoloL 25 3-0 Yes Univer s mg tablet - ity of 00:00: [place] [address] Medical Branch atenoloL 25 3-0 Yes Univer s mg tablet - ity of 00:00: [place] [address] Medical Branch atenoloL 25 3-0 Yes Univer s mg tablet - ity of 00:00: [place] [address] Medical Branch atenoloL 25 3-0 2023- No Unive rs mg tablet 10-14 ity of 00:00: 00:00 [place] 00 :00 Medical Branch atenoloL 25 3-0 2023- No Unive rs mg tablet 10-14 ity of 00:00: 00:00 [place] 00 :00 Medical Branch Lidocaine 4 3-0 Yes DAILY Unive rs % PtMd 09-18 ity of 00:00: [place] [address] Medical Branch carbamide 2023-0 Yes TWICE Univers peroxide 4-08 DAILY ity of 6.5 % otic 00:00: [place] solution 00 Medical Branch Lidocaine 4 3-0 Yes DAILY Unive rs % PtMd 4-08 ity of 00:00: [place] 00 Medical Branch Lidocaine 4 3-0 Yes DAILY Unive rs % PtMd 4-08 ity of 00:00: [place] 00 Medical Branch Lidocaine 4 3-0 Yes DAILY Unive rs % PtMd 4-08 ity of 00:00: [place] 00 Medical Branch Lidocaine 4 3-0 Yes DAILY Unive rs % PtMd 4-08 ity of 00:00: [place] 00 Medical Branch Lidocaine 4 2022-0 Yes DAILY Unive rs % PtMd 4-08 ity of 00:00: [place] 00 Medical Branch Lidocaine 4 3-0 Yes DAILY Unive rs % PtMd 4-08 ity of 00:00: [place] 00 Medical Branch Lidocaine 4 2022-0 Yes DAILY Unive rs % PtMd 4-08 ity of 00:00: [place] 00 Medical Branch cefUROXime 2022-0 Yes 250mg Take 1 Univ ers 250 mg 4-08 tablet by ity of tablet 00:00: mouth [place] 00 every 24 Medical (twenty-fo Branch ur) hours. Lidocaine 4 2022-0 Yes DAILY Unive rs % PtMd 4-08 ity of 00:00: [place] 00 Medical Branch carbamide 2022-0 Yes TWICE Univers peroxide 4-08 DAILY ity of 6.5 % otic 00:00: [place] solution 00 Medical Branch cefUROXime 3-0 Yes 250mg Take 1 Univ ers 250 mg 4-08 tablet by ity of tablet 00:00: mouth [place] 00 every 24 Medical (twenty-fo Branch ur) hours. Lidocaine 4 2022-0 Yes DAILY Unive rs % PtMd 4-08 ity of 00:00: [place] 00 Medical Branch carbamide 3-0 Yes TWICE [facility] peroxide 4-08 DAILY ity of 6.5 % otic 00:00: [place] solution 00 Medical Branch cefUROXime 3-0 Yes 250mg Take 1 Univ ers 250 mg 4-08 tablet by ity of tablet 00:00: mouth [place] 00 every 24 Medical (twenty-fo Branch ur) hours. Lidocaine 4 2022-0 Yes DAILY Unive rs % PtMd 4-08 ity of 00:00: [place] 00 Medical Branch carbamide 3-0 Yes TWICE [facility] peroxide 4-08 DAILY ity of 6.5 % otic 00:00: [place] solution 00 Medical Branch cefUROXime 3-0 Yes 250mg Take 1 Univ ers 250 mg 4-08 tablet by ity of tablet 00:00: mouth [place] 00 every 24 Medical (twenty-fo Branch ur) hours. Lidocaine 4 2022-0 Yes DAILY Unive rs % PtMd 4-08 ity of 00:00: [place] 00 Medical Branch carbamide 3-0 Yes TWICE Univers peroxide 4-08 DAILY ity of 6.5 % otic 00:00: [place] solution Medical Branch cefUROXime 3-0 Yes 250mg Take 1 Univ ers 250 mg 4-08 tablet by ity of tablet 00:00: mouth 00 every 24 Medical (twenty-fo Branch ur) hours. Lidocaine 4 2022-0 Yes DAILY Unive rs % PtMd 4-08 ity of 00:00: [place] Medical Branch carbamide 2022-0 Yes TWICE Univers peroxide 4-08 DAILY ity of 6.5 % otic 00:00: [place] solution Medical Branch cefUROXime 3-0 Yes 250mg Take 1 Univ ers 250 mg 4-08 tablet by ity of tablet 00:00: mouth 00 every 24 Medical (twenty-fo Branch ur) hours. Lidocaine 4 2022-0 Yes DAILY Unive rs % PtMd 4-08 ity of 00:00: [place] Medical Branch carbamide 3-0 Yes TWICE Univers peroxide 4-08 DAILY ity of 6.5 % otic 00:00: [place] solution Medical Branch cefUROXime 3-0 Yes 250mg Take 1 Univ ers 250 mg 4-08 tablet by ity of tablet 00:00: mouth every 24 Medical (twenty-fo Branch ur) hours. Lidocaine 4 3-0 Yes DAILY Unive rs % PtMd 4-08 ity of 00:00: [place] 00 Medical Branch carbamide 3-0 Yes TWICE [facility] peroxide 4-08 DAILY ity of 6.5 % otic 00:00: [place] solution Medical Branch cefUROXime 2023-0 Yes 250mg Take 1 Univ ers 250 mg 4-08 tablet by ity of tablet 00:00: mouth 00 every 24 Medical (twenty-fo Branch ur) hours. Lidocaine 4 2023-0 Yes DAILY Unive rs % PtMd 4-08 ity of 00:00: [place] 00 Medical Branch carbamide 2022-0 Yes TWICE Univers peroxide 4-08 DAILY ity of 6.5 % otic 00:00: [place] solution 00 Medical Branch cefUROXime 3-0 Yes 250mg Take 1 Univ ers 250 mg 4-08 tablet by ity of tablet 00:00: mouth [place] 00 every 24 Medical (twenty-fo Branch ur) hours. Lidocaine 4 2022-0 Yes DAILY Unive rs % PtMd 4-08 ity of 00:00: [place] 00 Medical Branch carbamide 2022-0 Yes TWICE [facility] peroxide 4-08 DAILY ity of 6.5 % otic 00:00: [place] solution 00 Medical Branch cefUROXime 2022-0 Yes 250mg Take 1 Univ ers 250 mg 4-08 tablet by ity of tablet 00:00: mouth [place] 00 every 24 Medical (twenty-fo Branch ur) hours. Lidocaine 4 2022-0 Yes DAILY Unive rs % PtMd 4-08 ity of 00:00: [place] Medical Branch carbamide 2022-0 Yes TWICE [facility] peroxide 4-08 DAILY ity of 6.5 % otic 00:00: [place] solution 00 Medical Branch Lidocaine 4 3-0 Yes DAILY Unive rs % PtMd 4-08 ity of 00:00: [place] 00 Medical Branch carbamide 2022-0 Yes TWICE [facility] peroxide 4-08 DAILY ity of 6.5 % otic 00:00: [place] solution 00 Medical Branch Lidocaine 4 3-0 Yes DAILY Unive rs % PtMd 4-08 ity of 00:00: [place] 00 Medical Branch carbamide 3-0 Yes TWICE [facility] peroxide 4-08 DAILY ity of 6.5 % otic 00:00: [place] solution 00 Medical Branch Lidocaine 4 3-0 Yes DAILY Unive rs % PtMd 4-08 ity of 00:00: [place] 00 Medical Branch carbamide 3-0 Yes TWICE [facility] peroxide 4-08 DAILY ity of 6.5 % otic 00:00: [place] solution 00 Medical Branch Lidocaine 4 3-0 Yes DAILY Unive rs % PtMd 4-08 ity of 00:00: [place] 00 Medical Branch carbamide 3-0 Yes TWICE [facility] peroxide 4-08 DAILY ity of 6.5 % otic 00:00: [place] solution 00 Medical Branch carbamide 2022-0 3- No TWICE Univer s peroxide 09-18- DAILY ity of 6.5 % otic 00:00: 00:00 [place] solution 00 :00 Medical Branch carbamide 2023-0 2023- No TWICE Univer s peroxide 4- DAILY ity of 6.5 % otic 00:00: 00:00 [place] solution 00 :00 Medical Branch cefUROXime 2023-0 2023- No 250mg Take 1 Uni vers 250 mg 09-18 tablet by ity of tablet 00:00: 00:00 mouth [place] 00 :00 every 24 Medical (twenty-fo Branch ur) hours. cefUROXime 2023-0 2023- No 250mg Take 1 Uni vers 250 mg 09-18 tablet by ity of tablet 00:00: 00:00 mouth [place] 00 :00 every 24 Medical (twenty-fo Branch ur) hours. cefUROXime 2023-0 2023- No 250mg Take 1 Uni vers 250 mg 09-18 tablet by ity of tablet 00:00: 00:00 mouth [place] 00 :00 every 24 Medical (twenty-fo Branch ur) hours. neomycin-po 3-0 Yes Univer s lymyxin-hyd 3-23 ity of rocortisone 00:00: [place] otic 00 Medical solution Branch acetaminoph 2022-0 Yes 1{tbl} Take 1 [facility] en-codeine 3-23 tablet by ity of 300-30 mg 00:00: mouth 2 [place] tablet 00 (two) Medical times Branch daily as needed. neomycin-po 2023-0 Yes Univer s lymyxin-hyd 3-23 ity of rocortisone 00:00: [place] otic 00 Medical solution Branch acetaminoph 3-0 Yes 1{tbl} Take 1 [facility] [place] en-codeine 3-23 tablet by ity of 300-30 mg 00:00: mouth 2 [place] tablet 00 (two) Medical times Branch daily as needed. neomycin-po 2023-0 Yes Univer s lymyxin-hyd 3-23 ity of rocortisone 00:00: [place] otic 00 Medical solution Branch acetaminoph 2023-0 Yes 1{tbl} Take 1 [facility] [place] en-codeine 3-23 tablet by ity of 300-30 mg 00:00: mouth 2 [place] tablet 00 (two) Medical times Branch daily as needed. neomycin-po 2023-0 Yes Univer s lymyxin-hyd 3-23 ity of rocortisone 00:00: [place] otic 00 Medical solution Branch acetaminoph 3-0 Yes 1{tbl} Take 1 [facility] [place] en-codeine 3-23 tablet by ity of 300-30 mg 00:00: mouth 2 [place] tablet 00 (two) Medical times Branch daily as needed. neomycin-po 2023-0 Yes Univer s lymyxin-hyd 3-23 ity of rocortisone 00:00: [place] otic 00 Medical solution Branch neomycin-po 2023-0 Yes Univer s lymyxin-hyd 3-23 ity of rocortisone 00:00: [place] otic 00 Medical solution Branch neomycin-po 2023-0 Yes Univer s lymyxin-hyd 3-23 ity of rocortisone 00:00: [place] otic 00 Medical solution Branch neomycin-po 2023-0 Yes Univer s lymyxin-hyd 3-23 ity of rocortisone 00:00: [place] otic 00 Medical solution Branch neomycin-po 2023-0 Yes Univer s lymyxin-hyd 3-23 ity of rocortisone 00:00: [place] otic 00 Medical solution Branch neomycin-po 2023-0 Yes Univer s lymyxin-hyd 3-23 ity of rocortisone 00:00: [place] otic 00 Medical solution Branch neomycin-po 2023-0 Yes Univer s lymyxin-hyd 3-23 ity of rocortisone 00:00: [place] otic 00 Medical solution Branch neomycin-po 2023-0 Yes Univer s lymyxin-hyd 3-23 ity of rocortisone 00:00: [place] otic 00 Medical solution Branch neomycin-po 2023-0 Yes Univer s lymyxin-hyd 3-23 ity of rocortisone 00:00: [place] otic 00 Medical solution Branch neomycin-po 2023-0 Yes Univer s lymyxin-hyd 3-23 ity of rocortisone 00:00: [place] otic 00 Medical solution Branch neomycin-po 2023-0 Yes Univer s lymyxin-hyd 3-23 ity of rocortisone 00:00: [place] otic 00 Medical solution Branch neomycin-po 2023-0 Yes Univer s lymyxin-hyd 3-23 ity of rocortisone 00:00: [place] otic 00 Medical solution Branch neomycin-po 3-0 Yes Univer s lymyxin-hyd 3-23 ity of rocortisone 00:00: [place] otic 00 Medical solution Branch acetaminoph 3-0 Yes 1{tbl} Take 1 [facility] [place] en-codeine 3-23 tablet by ity of 300-30 mg 00:00: mouth 2 [place] tablet 00 (two) Medical times Branch daily as needed. neomycin-po 3-0 Yes Univer s lymyxin-hyd 3-23 ity of rocortisone 00:00: [place] otic 00 Medical solution Branch acetaminoph 2022-0 Yes 1{tbl} Take 1 [place] en-codeine 3-23 tablet by ity of 300-30 mg 00:00: mouth 2 [place] tablet 00 (two) Medical times Branch daily as needed. neomycin-po 3-0 Yes Univer s lymyxin-hyd 3-23 ity of rocortisone 00:00: [place] otic Medical solution Branch acetaminoph 3-0 Yes 1{tbl} Take 1 [place] en-codeine 3-23 tablet by ity of 300-30 mg 00:00: mouth 2 [place] tablet 00 (two) Medical times Branch daily as needed. neomycin-po 3-0 Yes Univer s lymyxin-hyd 3-23 ity of rocortisone 00:00: [place] otic 00 Medical solution Branch acetaminoph 3-0 Yes 1{tbl} Take 1 [place] en-codeine 3-23 tablet by ity of 300-30 mg 00:00: mouth 2 [place] tablet 00 (two) Medical times Branch daily as needed. neomycin-po 3-0 Yes Univer s lymyxin-hyd 3-23 ity of rocortisone 00:00: [place] otic 00 Medical solution Branch acetaminoph 3-0 Yes 1{tbl} Take 1 [place] en-codeine 3-23 tablet by ity of 300-30 mg 00:00: mouth 2 [place] tablet 00 (two) Medical times Branch daily as needed. neomycin-po 3-0 Yes Univer s lymyxin-hyd 3-23 ity of rocortisone 00:00: [place] otic 00 Medical solution Branch acetaminoph 3-0 Yes 1{tbl} Take 1 [place] en-codeine 3-23 tablet by ity of 300-30 mg 00:00: mouth 2 [place] tablet 00 (two) Medical times Branch daily as needed. neomycin-po 2023-0 Yes Univer s lymyxin-hyd 3-23 ity of rocortisone 00:00: [place] otic 00 Medical solution Branch acetaminoph 3-0 Yes 1{tbl} Take 1 [facility] [place] en-codeine 3-23 tablet by ity of 300-30 mg 00:00: mouth 2 [place] tablet 00 (two) Medical times Branch daily as needed. neomycin-po 3-0 Yes Univer s lymyxin-hyd 3-23 ity of rocortisone 00:00: [place] otic 00 Medical solution Branch acetaminoph 2022-0 Yes 1{tbl} Take 1 [place] en-codeine 3-23 tablet by ity of 300-30 mg 00:00: mouth 2 [place] tablet 00 (two) Medical times Branch daily as needed. neomycin-po 3-0 Yes Univer s lymyxin-hyd 3-23 ity of rocortisone 00:00: [place] otic 00 Medical solution Branch acetaminoph 2022-0 Yes 1{tbl} Take 1 [place] en-codeine 3-23 tablet by ity of 300-30 mg 00:00: mouth 2 [place] tablet 00 (two) Medical times Branch daily as needed. neomycin-po 3-0 Yes Univer s lymyxin-hyd 3-23 ity of rocortisone 00:00: [place] otic 00 Medical solution Branch acetaminoph 3-0 Yes 1{tbl} Take 1 [facility] [place] en-codeine 3-23 tablet by ity of 300-30 mg 00:00: mouth 2 [place] tablet 00 (two) Medical times Branch daily as needed. neomycin-po 3-0 Yes Univer s lymyxin-hyd 3-23 ity of rocortisone 00:00: [place] otic 00 Medical solution Branch acetaminoph 3-0 Yes 1{tbl} Take 1 [place] en-codeine 3-23 tablet by ity of 300-30 mg 00:00: mouth 2 [place] tablet 00 (two) Medical times Branch daily as needed. acetaminoph 3-0 2022- No 1{tbl} Take 1 U nivers en-codeine 3-23 06-21 tablet by ity of 300-30 mg 00:00: 00:00 mouth 2 [place] tablet 00 :00 (two) Medical times Branch daily as needed. acetaminoph 2023-0 2023- No 1{tbl} Take 1 U nivers en-codeine 09-02 tablet by ity of 300-30 mg 00:00: 00:00 mouth 2 [place] tablet 00 :00 (two) Medical times Branch daily as needed. NIFEdipine 2023-0 Yes 90mg Take 1 Unive rs ER 90 mg 3-08 tablet by ity of tablet 08:48: mouth. [place] [id number] Medical Branch furosemide 2023-0 2023- No 40mg Take 1 Univ ers 40 mg 07-22 tablet by ity of tablet 00:00: 00:00 mouth. [place] 00 :00 Medical Branch furosemide 2023-0 2023- No 40mg Take 1 Univ ers 40 mg 07-22-12 tablet by ity of tablet 00:00: 00:00 mouth. [place] 00 :00 Medical Branch furosemide 2023-0 2023- No 40mg Take 1 Univ ers 40 mg 07-22- tablet by ity of tablet 00:00: 00:00 mouth. [place] 00 :00 Medical Branch furosemide 2023-0 Yes 40mg Take 1 Unive rs 40 mg 1-27 tablet by ity of tablet 00:00: mouth in [place] [address] the Medical morning Branch and 1 tablet in the evening. furosemide 2023-0 Yes 40mg Take 1 Unive rs 40 mg 1-27 tablet by ity of tablet 00:00: mouth in [place] [address] the Medical morning Branch and 1 tablet in the evening. furosemide 2023-0 Yes 40mg Take 1 Unive rs 40 mg 1-27 tablet by ity of tablet 00:00: mouth in [place] [address] the Medical morning Branch and 1 tablet in the evening. furosemide 2023-0 Yes 40mg Take 1 Unive rs 40 mg 1-27 tablet by ity of tablet 00:00: mouth in [place] [address] the Medical morning Branch and 1 tablet in the evening. furosemide 2023-0 Yes 40mg Take 1 Unive rs 40 mg 1-27 tablet by ity of tablet 00:00: mouth in [place] [address] the Medical morning Branch and 1 tablet in the evening. furosemide 2023-0 Yes 40mg Take 1 Unive rs 40 mg 1-27 tablet by ity of tablet 00:00: mouth in [place] 00 the Medical morning Branch and 1 tablet in the evening. furosemide 2023-0 Yes 40mg Take 1 Unive rs 40 mg 1-27 tablet by ity of tablet 00:00: mouth in [place] 00 the Medical morning Branch and 1 tablet in the evening. furosemide 2023-0 Yes 40mg Take 1 Unive rs 40 mg 1-27 tablet by ity of tablet 00:00: mouth in [place] 00 the Medical morning Branch and 1 tablet in the evening. furosemide 2023-0 Yes 40mg Take 1 Unive rs 40 mg 1-27 tablet by ity of tablet 00:00: mouth in [place] 00 the Medical morning Branch and 1 tablet in the evening. furosemide 2023-0 Yes 40mg Take 1 Unive rs 40 mg 1-27 tablet by ity of tablet 00:00: mouth in [place] 00 the Medical morning Branch and 1 tablet in the evening. furosemide 2023-0 Yes 40mg Take 1 Unive rs 40 mg 1-27 tablet by ity of tablet 00:00: mouth in [place] 00 the Medical morning Branch and 1 tablet in the evening. furosemide 2023-0 Yes 40mg Take 1 Unive rs 40 mg 1-27 tablet by ity of tablet 00:00: mouth in [place] 00 the Medical morning Branch and 1 tablet in the evening. furosemide 2023-0 Yes 40mg Take 1 Unive rs 40 mg 1-27 tablet by ity of tablet 00:00: mouth in [place] 00 the Medical morning Branch and 1 tablet in the evening. furosemide 2023-0 Yes 40mg Take 1 Unive rs 40 mg 1-27 tablet by ity of tablet 00:00: mouth in [place] 00 the Medical morning Branch and 1 tablet in the evening. furosemide 2023-0 Yes 40mg Take 1 Unive rs 40 mg 1-27 tablet by ity of tablet 00:00: mouth in [place] 00 the Medical morning Branch and 1 tablet in the evening. furosemide 2023-0 2023- No 40mg Take 1 Univ ers 40 mg 1-27 06-21 tablet by ity of tablet 00:00: 00:00 mouth in [place] 00 :00 the Medical morning Branch and 1 tablet in the evening. furosemide 2023-0 2023- No 40mg Take 1 Univ ers 40 mg 1-27 06-21 tablet by ity of tablet 00:00: 00:00 mouth in [place] 00 :00 the [facility] Branch and 1 tablet in the evening. doxazosin 8 2021-06 Yes 8mg 1 tablet. U nivers mg tablet 1-30 ity of 00:00: [address] doxazosin 8 2021-06 Yes 8mg 1 tablet. U nivers mg tablet 1-30 ity of 00:00: [address] doxazosin 8 2021-06 Yes 8mg 1 tablet. U nivers mg tablet 1-30 ity of 00:00: [address] doxazosin 8 2021-06 Yes 8mg 1 tablet. U nivers mg tablet 1-30 ity of 00:00: [address] doxazosin 8 2021-06 Yes 8mg 1 tablet. U nivers mg tablet 1-30 ity of 00:00: [address] doxazosin 8 2021-06 Yes 8mg 1 tablet. U nivers mg tablet 1-30 ity of 00:00: [address] doxazosin 8 2021-06 Yes 8mg 1 tablet. U nivers mg tablet 1-30 ity of 00:00: [address] doxazosin 8 2021-06 Yes 8mg 1 tablet. U nivers mg tablet 1-30 ity of 00:00: [address] doxazosin 8 2021-06 Yes 8mg 1 tablet. U nivers mg tablet 1-30 ity of 00:00: [address] doxazosin 8 2021-06 Yes 8mg 1 tablet. U nivers mg tablet 1-30 ity of 00:00: [address] doxazosin 8 2021-06 Yes 8mg 1 tablet. U nivers mg tablet 1-30 ity of 00:00: [address] doxazosin 8 2021-06 Yes 8mg 1 tablet. U nivers mg tablet 1-30 ity of 00:00: [address] doxazosin 8 2021-06 Yes 8mg 1 tablet. U nivers mg tablet 1-30 ity of 00:00: [address] doxazosin 8 2021-06 Yes 8mg 1 tablet. U nivers mg tablet 1-30 ity of 00:00: [address] doxazosin 8 2021-06 Yes 8mg 1 tablet. U nivers mg tablet 1-30 ity of 00:00: [place] [facility] doxazosin 8 2021-06 Yes 8mg 1 tablet. U nivers mg tablet 1-30 ity of 00:00: [place] [facility] doxazosin 8 2021-06 Yes 8mg 1 tablet. U [facility]ivers mg tablet 1-30 ity of 00:00: [place] [facility] doxazosin 8 2021-06 Yes 8mg 1 tablet. U nivers mg tablet 1-30 ity of 00:00: [place] [facility] doxazosin 8 2021-06 Yes 8mg 1 tablet. U nivers mg tablet 1-30 ity of 00:00: [place] [facility] doxazosin 8 2021-06 Yes 8mg 1 tablet. U nivers mg tablet 1-30 ity of 00:00: [place] [facility] doxazosin 8 2021-06 Yes 8mg 1 tablet. U nivers mg tablet 1-30 ity of 00:00: [place] [facility] doxazosin 8 2021-06 Yes 8mg 1 tablet. U nivers mg tablet 1-30 ity of 00:00: [place] [facility] carvediloL 2021-06- No 25mg Take 1 Univ ers 25 mg 0-25 05-12 tablet by ity of tablet 00:00: 00:00 mouth in [place] 00 :00 the Medical morning Branch and 1 tablet in the evening. carvediloL 2021-06- No 25mg Take 1 [facility] 25 mg 0-25 05-12 tablet by ity of tablet 00:00: 00:00 mouth in [place] 00 :00 the Medical morning Branch and 1 tablet in the evening. carvediloL 2021-06- No 25mg Take 1 [facility] 25 mg 0-25 05-12 tablet by ity of tablet 00:00: 00:00 mouth in [place] 00 :00 the Medical morning Branch and 1 tablet in the evening. HYDROcodone 2021-0 Yes .5{tbl} Take 0.5 [facility] -acetaminop 6-23 tablets by it y of hen 10-325 00:00: mouth. [place] mg tablet 00 [facility] HYDROcodone 2-0 Yes .5{tbl} Take 0.5 [facility] -acetaminop 6-23 tablets by it y of hen 10-325 00:00: mouth. [place] mg tablet 00 Medical Branch HYDROcodone 2022-0 Yes .5{tbl} Take 0.5 [facility] -acetaminop 6-23 tablets by it y of hen 10-325 00:00: mouth. [place] mg tablet 00 Medical Branch HYDROcodone 2022-0 Yes .5{tbl} Take 0.5 [facility] -acetaminop 6-23 tablets by it y of hen 10-325 00:00: mouth. [place] mg tablet 00 Medical Branch HYDROcodone 2022-0 Yes .5{tbl} Take 0.5 [facility] -acetaminop 6-23 tablets by it y of hen 10-325 00:00: mouth. [place] mg tablet 00 Medical Branch HYDROcodone 2022-0 Yes .5{tbl} Take 0.5 [facility] -acetaminop 6-23 tablets by it y of hen 10-325 00:00: mouth. [place] mg tablet 00 Medical Branch HYDROcodone 2022-0 Yes .5{tbl} Take 0.5 [facility] -acetaminop 6-23 tablets by it y of hen 10-325 00:00: mouth. [place] mg tablet 00 Medical Branch HYDROcodone 2022-0 Yes .5{tbl} Take 0.5 [facility] -acetaminop 6-23 tablets by it y of hen 10-325 00:00: mouth. [place] mg tablet 00 Medical Branch HYDROcodone 2022-0 Yes .5{tbl} Take 0.5 [facility] -acetaminop 6-23 tablets by it y of hen 10-325 00:00: mouth. [place] mg tablet 00 Medical Branch HYDROcodone 2022-0 Yes .5{tbl} Take 0.5 [facility] -acetaminop 6-23 tablets by it y of hen 10-325 00:00: mouth. [place] mg tablet 00 Medical Branch HYDROcodone 2022-0 Yes .5{tbl} Take 0.5 [facility] -acetaminop 6-23 tablets by it y of hen 10-325 00:00: mouth. [place] mg tablet 00 Medical Branch HYDROcodone 2022-0 Yes .5{tbl} Take 0.5 [facility] -acetaminop 6-23 tablets by it y of hen 10-325 00:00: mouth. [place] mg tablet 00 Medical Branch HYDROcodone 2022-0 Yes .5{tbl} Take 0.5 [facility] -acetaminop 6-23 tablets by it y of hen 10-325 00:00: mouth. [place] mg tablet 00 Medical Branch HYDROcodone 2022-0 Yes .5{tbl} Take 0.5 [facility] -acetaminop 6-23 tablets by it y of hen 10-325 00:00: mouth. [place] mg tablet 00 Medical Branch HYDROcodone 2022-0 2023- No .5{tbl} Take 0.5 [facility] -acetaminop 6-23 06-21 tablets by i ty of hen 10-325 00:00: 00:[place] tablet 00 :00 [facility] Branch HYDROcodone 2022-0 2023- No .5{tbl} Take 0.5 [facility] -acetaminop 6-23 06-21 tablets by i ty of hen 10-325 00:00: 00:[place] tablet 00 :00 Medical Branch permethrin 2022-0 Yes Apply Univer s 1 % lotion 6-02 lotion to ity of 00:00: areas of [place] 00 hair and Medical leave on x Branch 60 minutes. Rinse after 60 minutes. Avoid getting into eyes or vaginal regions permethrin 2022-0 Yes Apply Univer s 1 % lotion 6-02 lotion to ity of 00:00: areas of [place] 00 hair and Medical leave on x Branch 60 minutes. Rinse after 60 minutes. Avoid getting into eyes or vaginal regions permethrin 2022-0 Yes Apply Univer s 1 % lotion 6-02 lotion to ity of 00:00: areas of [place] 00 hair and Medical leave on x Branch 60 minutes. Rinse after 60 minutes. Avoid getting into eyes or vaginal regions permethrin 2022-0 Yes Apply Univer s 1 % lotion 6-02 lotion to ity of 00:00: areas of [place] 00 hair and Medical leave on x Branch 60 minutes. Rinse after 60 minutes. Avoid getting into eyes or vaginal regions permethrin 2022-0 Yes Apply Univer s 1 % lotion 6-02 lotion to ity of 00:00: areas of [place] 00 hair and Medical leave on x Branch 60 minutes. Rinse after 60 minutes. Avoid getting into eyes or vaginal regions permethrin 2022-0 Yes Apply Univer s 1 % lotion 6-02 lotion to ity of 00:00: areas of [place] 00 hair and Medical leave on x Branch 60 minutes. Rinse after 60 minutes. Avoid getting into eyes or vaginal regions permethrin 2022-0 Yes Apply Univer s 1 % lotion 6-02 lotion to ity of 00:00: areas of [place] 00 hair and Medical leave on x Branch 60 minutes. Rinse after 60 minutes. Avoid getting into eyes or vaginal regions permethrin 2022-0 Yes Apply Univer s 1 % lotion 6-02 lotion to ity of 00:00: areas of [place] 00 hair and Medical leave on x Branch 60 minutes. Rinse after 60 minutes. Avoid getting into eyes or vaginal regions permethrin 2022-0 Yes Apply Univer s 1 % lotion 6-02 lotion to ity of 00:00: areas of [place] 00 hair and Medical leave on x Branch 60 minutes. Rinse after 60 minutes. Avoid getting into eyes or vaginal regions permethrin 2022-0 Yes Apply Univer s 1 % lotion 6-02 lotion to ity of 00:00: areas of [place] 00 hair and Medical leave on x Branch 60 minutes. Rinse after 60 minutes. Avoid getting into eyes or vaginal regions permethrin 2022-0 Yes Apply Univer s 1 % lotion 6-02 lotion to ity of 00:00: areas of [place] 00 hair and Medical leave on x Branch 60 minutes. Rinse after 60 minutes. Avoid getting into eyes or vaginal regions permethrin 2022-0 Yes Apply Univer s 1 % lotion 6-02 lotion to ity of 00:00: areas of [place] 00 hair and Medical leave on x Branch 60 minutes. Rinse after 60 minutes. Avoid getting into eyes or vaginal regions permethrin 2022-0 Yes Apply Univer s 1 % lotion 6-02 lotion to ity of 00:00: areas of [place] 00 hair and Medical leave on x Branch 60 minutes. Rinse after 60 minutes. Avoid getting into eyes or vaginal regions permethrin 2022-0 Yes Apply Univer s 1 % lotion 6-02 lotion to ity of 00:00: areas of [place] 00 hair and Medical leave on x Branch 60 minutes. Rinse after 60 minutes. Avoid getting into eyes or vaginal regions permethrin 2022-0 Yes Apply Univer s 1 % lotion 6-02 lotion to ity of 00:00: areas of [place] 00 hair and Medical leave on x Branch 60 minutes. Rinse after 60 minutes. Avoid getting into eyes or vaginal regions permethrin 2022-0 Yes Apply Univer s 1 % lotion 6-02 lotion to ity of 00:00: areas of [place] 00 hair and Medical leave on x Branch 60 minutes. Rinse after 60 minutes. Avoid getting into eyes or vaginal regions permethrin 2022-0 Yes Apply Univer s 1 % lotion 6-02 lotion to ity of 00:00: areas of 00 hair and Medical leave on x Branch 60 minutes. Rinse after 60 minutes. Avoid getting into eyes or vaginal regions permethrin 2022-0 Yes Apply Univer s 1 % lotion 6-02 lotion to ity of 00:00: areas of [place] 00 hair and Medical leave on x Branch 60 minutes. Rinse after 60 minutes. Avoid getting into eyes or vaginal regions permethrin 2022-0 Yes Apply Univer s 1 % lotion 6-02 lotion to ity of 00:00: areas of [place] 00 hair and Medical leave on x Branch 60 minutes. Rinse after 60 minutes. Avoid getting into eyes or vaginal regions permethrin 2022-0 Yes Apply Univer s 1 % lotion 6-02 lotion to ity of 00:00: areas of [place] 00 hair and Medical leave on x Branch 60 minutes. Rinse after 60 minutes. Avoid getting into eyes or vaginal regions permethrin 2022-0 Yes Apply Univer s 1 % lotion 6-02 lotion to ity of 00:00: areas of [place] 00 hair and Medical leave on x Branch 60 minutes. Rinse after 60 minutes. Avoid getting into eyes or vaginal regions permethrin 2022-0 Yes Apply Univer s 1 % lotion 6-02 lotion to ity of 00:00: areas of [place] 00 hair and Medical leave on x Branch 60 minutes. Rinse after 60 minutes. Avoid getting into eyes or vaginal regions permethrin 2022-0 Yes Apply Univer s 1 % lotion 6-02 lotion to ity of 00:00: areas of 00 hair and Medical leave on x Branch 60 minutes. Rinse after 60 minutes. Avoid getting into eyes or vaginal regions ramipriL 10 2021-0 Yes 10mg Take 1 Univ ers mg capsule 1-21 capsule by ity of 00:00: mouth in [place] 00 the Medical morning. Branch ramipriL 10 2-0 Yes 10mg Take 1 Univ ers mg capsule 1-21 capsule by ity of 00:00: mouth in [place] 00 the Medical morning. Branch ramipriL 10 2021-0 Yes 10mg Take 1 [facility] mg capsule 1-21 capsule by ity of 00:00: mouth in [place] 00 the Medical morning. Branch ramipriL 10 2021-0 Yes 10mg Take 1 [facility] ers mg capsule 1-21 capsule by ity of 00:00: mouth in [place] 00 the Medical morning. Branch ramipriL 10 2021-0 Yes 10mg Take 1 [facility] ers mg capsule 1-21 capsule by ity of 00:00: mouth in [place] the Medical morning. Branch ramipriL 10 2021-0 Yes 10mg Take 1 [facility] mg capsule 1-21 capsule by ity of 00:00: mouth in [place] the Medical morning. Branch ramipriL 10 2021-0 Yes 10mg Take 1 [facility] mg capsule 1-21 capsule by ity of 00:00: mouth in [place] the Medical morning. Branch ramipriL 10 2021-0 Yes 10mg Take 1 [facility] mg capsule 1-21 capsule by ity of 00:00: mouth in [place] the Medical morning. Branch ramipriL 10 2021-0 Yes 10mg Take 1 [facility] mg capsule 1-21 capsule by ity of 00:00: mouth in [place] the Medical morning. Branch ramipriL 10 2021-0 Yes 10mg Take 1 [facility] mg capsule 1-21 capsule by ity of 00:00: mouth in [place] the Medical morning. Branch ramipriL 10 2021-0 Yes 10mg Take 1 [facility] mg capsule 1-21 capsule by ity of 00:00: mouth in [place] the Medical morning. Branch ramipriL 10 2021-0 Yes 10mg Take 1 [facility] mg capsule 1-21 capsule by ity of 00:00: mouth in [place] 00 the Medical morning. Branch ramipriL 10 2021-0 Yes 10mg Take 1 [facility] mg capsule 1-21 capsule by ity of 00:00: mouth in [place] 00 the Medical morning. Branch ramipriL 10 2-0 Yes 10mg Take 1 [facility] mg capsule 1-21 capsule by ity of 00:00: mouth in [place] 00 the Medical morning. Branch ramipriL 10 2021-0 Yes 10mg Take 1 [facility] mg capsule 1-21 capsule by ity of 00:00: mouth in [place] 00 the Medical morning. Branch ramipriL 10 2-0 Yes 10mg Take 1 [facility] mg capsule 1-21 capsule by ity of 00:00: mouth in [place] 00 the Medical morning. Branch ramipriL 10 2-0 Yes 10mg Take 1 [facility] mg capsule 1-21 capsule by ity of 00:00: mouth in [place] 00 the Medical morning. Branch ramipriL 10 2-0 Yes 10mg Take 1 [facility] mg capsule 1-21 capsule by ity of 00:00: mouth in [place] 00 the Medical morning. Branch ramipriL 10 2-0 Yes 10mg Take 1 [facility] mg capsule 1-21 capsule by ity of 00:00: mouth in [place] 00 the Medical morning. Branch ramipriL 10 2-0 Yes 10mg Take 1 [facility] mg capsule 1-21 capsule by ity of 00:00: mouth in [place] 00 the Medical morning. Branch ramipriL 10 2021-0 Yes 10mg Take 1 [facility] mg capsule 1-21 capsule by ity of 00:00: mouth in [place] the Medical morning. Branch ramipriL 10 2021-0 Yes 10mg Take 1 [facility] mg capsule 1-21 capsule by ity of 00:00: mouth in [place] the Medical morning. Branch ramipriL 10 2-0 Yes 10mg Take 1 [facility] mg capsule 1-21 capsule by ity of 00:00: mouth in [place] the Medical morning. Branch ramipriL 10 2-0 Yes 10mg Take 1 [facility] mg capsule 1-21 capsule by ity of 00:00: mouth in [place] 00 the Medical morning. Branch ramipriL 10 2-0 Yes 10mg Take 1 [facility] mg capsule 1-21 capsule by ity of 00:00: mouth in [place] 00 the Medical morning. Branch ramipriL 10 2-0 Yes 10mg Take 1 [facility] mg capsule 1-21 capsule by ity of 00:00: mouth in [place] 00 the Medical morning. Branch ramipriL 10 2-0 Yes 10mg Take 1 [facility] mg capsule 1-21 capsule by ity of 00:00: mouth in [place] 00 the Medical morning. Branch ramipriL 10 2-0 Yes 10mg Take 1 [facility] ers mg capsule 1-21 capsule by ity of 00:00: mouth in [place] 00 the Medical morning. Branch predniSONE 2020-06 Yes Take 4 Unive [facility] 5 mg tablet 2-07 tabs for ity of 00:00: three [place] 00 days, then Medical 3 tabs for Branch three days, then 2 tabs for three days, then 1 tab for three days. predniSONE 2020-06 Yes Take 4 [facility] 5 mg tablet 2-07 tabs for ity of 00:00: three [place] 00 days, then Medical 3 tabs for Branch three days, then 2 tabs for three days, then 1 tab for three days. predniSONE 2020-06 Yes Take 4 [facility] 5 mg tablet 2-07 tabs for ity of 00:00: three [place] 00 days, then Medical 3 tabs for Branch three days, then 2 tabs for three days, then 1 tab for three days. predniSONE 2020-06 Yes Take 4 [facility] 5 mg tablet 2-07 tabs for ity of 00:00: three [place] 00 days, then Medical 3 tabs for Branch three days, then 2 tabs for three days, then 1 tab for three days. predniSONE 2020-06 Yes Take 4 [facility] 5 mg tablet 2-07 tabs for ity of 00:00: three [place] 00 days, then Medical 3 tabs for Branch three days, then 2 tabs for three days, then 1 tab for three days. predniSONE 2020-06 Yes Take 4 [facility] 5 mg tablet 2-07 tabs for ity of 00:00: three [place] 00 days, then Medical 3 tabs for Branch three days, then 2 tabs for three days, then 1 tab for three days. predniSONE 2020-06 Yes Take 4 [facility] 5 mg tablet 2-07 tabs for ity of 00:00: three [place] 00 days, then Medical 3 tabs for Branch three days, then 2 tabs for three days, then 1 tab for three days. predniSONE 2020-06 Yes Take 4 [facility] 5 mg tablet 2-07 tabs for ity of 00:00: three [place] 00 days, then Medical 3 tabs for Branch three days, then 2 tabs for three days, then 1 tab for three days. predniSONE 2020-06 Yes Take 4 [facility] 5 mg tablet 2-07 tabs for ity of 00:00: three [place] 00 days, then Medical 3 tabs for Branch three days, then 2 tabs for three days, then 1 tab for three days. predniSONE 2020-06 Yes Take 4 [facility] 5 mg tablet 2-07 tabs for ity of 00:00: three [place] 00 days, then Medical 3 tabs for Branch three days, then 2 tabs for three days, then 1 tab for three days. predniSONE 2020-06 Yes Take 4 [facility] 5 mg tablet 2-07 tabs for ity of 00:00: three [place] 00 days, then Medical 3 tabs for Branch three days, then 2 tabs for three days, then 1 tab for three days. predniSONE 2020-06 Yes Take 4 [facility] 5 mg tablet 2-07 tabs for ity of 00:00: three [place] 00 days, then Medical 3 tabs for Branch three days, then 2 tabs for three days, then 1 tab for three days. predniSONE 2020-06 Yes Take 4 [facility] 5 mg tablet 2-07 tabs for ity of 00:00: three [place] 00 days, then Medical 3 tabs for Branch three days, then 2 tabs for three days, then 1 tab for three days. predniSONE 2020-06 Yes Take 4 [facility] 5 mg tablet 2-07 tabs for ity of 00:00: three [place] 00 days, then Medical 3 tabs for Branch three days, then 2 tabs for three days, then 1 tab for three days. predniSONE 2020-06 Yes Take 4 [facility] 5 mg tablet 2-07 tabs for ity of 00:00: three [place] 00 days, then Medical 3 tabs for Branch three days, then 2 tabs for three days, then 1 tab for three days. predniSONE 2020-06 Yes Take 4 [facility] 5 mg tablet 2-07 tabs for ity of 00:00: three [place] 00 days, then Medical 3 tabs for Branch three days, then 2 tabs for three days, then 1 tab for three days. predniSONE 2020-06- No Take 4 [facility] 5 mg tablet 2-12 16- tabs for ity of 00:00: 00:00 three [place] 00 :00 days, then Medical 3 tabs for Branch three days, then 2 tabs for three days, then 1 tab for three days. predniSONE 2020-06- No Take 4 [facility] 5 mg tablet 2-12 16-21 tabs for ity of 00:00: 00:00 three [place] 00 :00 days, then Medical 3 tabs for Branch three days, then 2 tabs for three days, then 1 tab for three days. sevelamer 2020-0 Yes 1600mg Take 1,[address] [facility] ([place]) 4-27 mg by [facility] mg 13:12: mouth 3 Medical tablet 58 (three) Center times daily with meals. ramipriL 202-0 Yes 10mg QD Take [address] [facility] ([place]) 10 4-27 by mouth [facility] MG capsule 13:12: daily. Medic al 58 Center metoprolol 2020-0 Yes 25mg Q.5D Take [address] tartrate 4-27 by mouth 2 [facility] (LOPRESSOR) 13:12: (two) Medic al 25 MG 58 times Center tablet daily. NIFEdipine 2020-0 Yes 30mg Q.[id number] Take [address] [facility] (PROCARDIA) 4-27 [id number] by mouth 3 [facility] 10 MG 13:12: 3D (three) Medical capsule 58 times Center daily. spironolact 2020-0 Yes 50mg QD Take [address] [facility] one 4-27 by mouth [facility] (ALDACTONE) 13:12: daily. Medi [place] 50 MG 58 Center tablet HYDROcodone 0 Yes 1{tbl} Take [address] -acetaminop 4-27 tablet by [place] [facility] (NORCO 13:12: mouth Medica l 10-325) 58 every 6 Center 10-325 mg (six) per tablet hours as needed for Pain. sevelamer 2020-0 Yes 1600mg Take 1,[address] [facility] ([place]) 4-27 mg by [facility] 800 mg 13:12: mouth 3 Medical tablet 58 (three) Center times daily with meals. ramipriL 2021-0 Yes 10mg QD Take [address] [facility] (ALTACE) 10 4-27 by mouth [facility] MG capsule 13:12: daily. Medic al 58 Center metoprolol 2020-0 Yes 25mg Q.5D Take [address] tartrate 4-27 by mouth 2 [facility] (LOPRESSOR) 13:12: (two) Medic al 25 MG 58 times Center tablet daily. NIFEdipine 2021-0 Yes 30mg Q.[id number] Take [address] [facility] (PROCARDIA) 4-27 [id number] by mouth 3 [facility] 10 MG 13:12: 3D (three) Medical capsule 58 times Center daily. spironolact 2021-0 Yes 50mg QD Take [address] [facility] one 4-27 by mouth [facility] (ALDACTONE) 13:12: daily. Medi [place] 50 MG 58 Center tablet HYDROcodone 2021-0 Yes 1{tbl} Take [address] -acetaminop 4-27 tablet by [place] [facility] ([place]CO 13:12: mouth Medica l 10-325) 58 every 6 Center 10-325 mg (six) per tablet hours as needed for Pain. sevelamer 2021-0 Yes 1600mg Take 1,[address] [facility] ([place]) 4-27 mg by [facility] 800 mg 13:12: mouth 3 Medical tablet 58 (three) Center times daily with meals. ramipriL 2021-0 Yes 10mg QD Take [address] [facility] (ALTACE) 10 4-27 by mouth [facility] MG capsule 13:12: daily. Medic al 58 Center metoprolol 2020-0 Yes 25mg Q.5D Take [address] tartrate 4-27 by mouth 2 [facility] (LOPRESSOR) 13:12: (two) Medic al 25 MG 58 times Center tablet daily. NIFEdipine 1-0 Yes 30mg Q.[id number] Take [address] [facility] (PROCARDIA) 4-27 [id number] by mouth 3 [facility] 10 MG 13:12: 3D (three) Medical capsule 58 times Center daily. spironolact 2021-0 Yes 50mg QD Take [address] [facility] one 4-27 by mouth [facility] (ALDACTONE) 13:12: daily. Medi [place] 50 MG 58 Center tablet HYDROcodone 2021-0 Yes 1{tbl} Take [address] -acetaminop 4-27 tablet by [place] [facility] ([place]CO 13:12: mouth Medica l 10-325) 58 every 6 Center 10-325 mg (six) per tablet hours as needed for Pain. sevelamer 2021-0 Yes 1600mg Take 1,[address] [facility] ([place]) 4-27 mg by [facility] 800 mg 13:12: mouth 3 Medical tablet 58 (three) Center times daily with meals. ramipriL 2021-0 Yes 10mg QD Take [address] [facility] (ALTACE) 10 4-27 by mouth [facility] MG capsule 13:12: daily. Medic al 58 Center metoprolol 2020-0 Yes 25mg Q.5D Take [address] tartrate 4-27 by mouth 2 [facility] (LOPRESSOR) 13:12: (two) Medic al 25 MG 58 times Center tablet daily. NIFEdipine 2020-0 Yes 30mg Q.[id number] Take [address] [facility] (PROCARDIA) 4-27 [id number] by mouth 3 [facility] 10 MG 13:12: 3D (three) Medical capsule 58 times Center daily. spironolact 0 Yes 50mg QD Take [address] [facility] one 4-27 by mouth [facility] (ALDACTONE) 13:12: daily. Medi [place] 50 MG 58 Center tablet HYDROcodone 0 Yes 1{tbl} Take [address] -acetaminop 4-27 tablet by [place] [facility] ([facility]CO 13:12: mouth Medica l 10-325) 58 every 6 Center 10-325 mg (six) per tablet hours as needed for Pain. doxazosin 2020-0 Yes 8mg Q.[id number] Take [address] [facility] ([place]ARDUR[place]) 8 4-27 [id number] by mouth 3 [facility] MG tablet 12:13: 3D (three) Medic al 58 times Center daily . cholecalcif 202-0 Yes 5000U QD Take 5,[address] [facility] [place], 4-27 Units by [facility] vitamin D3, 12:13: mouth Medic al 125 mcg 58 daily. Center (5,000 unit) Tab doxazosin 2021-0 Yes 8mg Q.[id number] Take [address] [facility] ([place]) 8 4-27 [id number] by mouth 3 [facility] MG tablet 12:13: 3D (three) Medic al 58 times Center daily . cholecalcif 2021-0 Yes 5000U QD Take 5,[address] [facility] [place], 4-27 Units by [facility] vitamin D3, 12:13: mouth Medic al 125 mcg 58 daily. Center (5,000 unit) Tab doxazosin 2021-0 Yes 8mg Q.[id number] Take [address] [facility] ([place]) 8 4-27 [id number] by mouth 3 [facility] MG tablet 12:13: 3D (three) Medic al 58 times Center daily . cholecalcif 2021-0 Yes 5000U QD Take 5,[address] [facility] [place], 4-27 Units by [facility] vitamin D3, 12:13: mouth Medic al 125 mcg 58 daily. Center (5,000 unit) Tab doxazosin 2020-0 Yes 8mg Q.[id number] Take [address] [facility] ([place]) 8 4-27 [id number] by mouth 3 [facility] MG tablet 12:13: 3D (three) Medic al 58 times Center daily . cholecalcif 202-0 Yes 5000U QD Take 5,[address] [facility] [place], 4-27 Units by [facility] vitamin D3, 12:13: mouth Medic al 125 mcg 58 daily. Center (5,000 unit) Tab hydrALAZINE 2020-0 2021- No 10mg Q.[id number] Take [address] [facility] (APRESOLINE 4-27 04-27 [id number] by mouth 3 [facility] ) 10 MG 12:13: 00:00 3D (three) Medica l tablet 24 :00 times Center daily. spironolact 2020-0 Yes 50mg Take 1 [facility] one 50 mg 6-16 tablet by ity o f tablet 00:00: mouth [place] 00 every Medical morning. Branch spironolact 2020-0 Yes 50mg Take 1 [facility] one 50 mg 6-16 tablet by ity o f tablet 00:00: mouth [place] 00 every Medical morning. Branch spironolact 2020-0 Yes 50mg Take 1 [facility] one 50 mg 6-16 tablet by ity o f tablet 00:00: mouth [place] 00 every Medical morning. Branch spironolact 2020-0 Yes 50mg Take 1 [facility] one 50 mg 6-16 tablet by ity o f tablet 00:00: mouth [place] 00 every Medical morning. Branch spironolact 2020-0 Yes 50mg Take 1 [facility] one 50 mg 6-16 tablet by ity o f tablet 00:00: mouth [place] 00 every Medical morning. Branch spironolact 2020-0 Yes 50mg Take 1 [facility] one 50 mg 6-16 tablet by ity o f tablet 00:00: mouth [place] 00 every Medical morning. Branch spironolact 2020-0 Yes 50mg Take 1 [facility] one 50 mg 6-16 tablet by ity o f tablet 00:00: mouth [place] 00 every Medical morning. Branch spironolact 2020-0 Yes 50mg Take 1 [facility] one 50 mg 6-16 tablet by ity o f tablet 00:00: mouth [place] 00 every Medical morning. Branch spironolact 2020-0 Yes 50mg Take 1 [facility] one 50 mg 6-16 tablet by ity o f tablet 00:00: mouth [place] 00 every Medical morning. Branch spironolact 2020-0 Yes 50mg Take 1 [facility] one 50 mg 6-16 tablet by ity o f tablet 00:00: mouth [place] 00 every Medical morning. Branch spironolact 2020-0 Yes 50mg Take 1 [facility] one 50 mg 6-16 tablet by ity o f tablet 00:00: mouth [place] 00 every Medical morning. Branch spironolact 2020-0 Yes 50mg Take 1 [facility] one 50 mg 6-16 tablet by ity o f tablet 00:00: mouth [place] 00 every Medical morning. Branch spironolact 2020-0 Yes 50mg Take 1 [facility] one 50 mg 6-16 tablet by ity o f tablet 00:00: mouth [place] 00 every Medical morning. Branch spironolact 2020-0 Yes 50mg Take 1 [facility] one 50 mg 6-16 tablet by ity o f tablet 00:00: mouth [place] 00 every Medical morning. Branch spironolact 2020-0 Yes 50mg Take 1 [facility] one 50 mg 6-16 tablet by ity o f tablet 00:00: mouth [place] 00 every Medical morning. Branch spironolact 2020-0 Yes 50mg Take 1 [facility] one 50 mg 6-16 tablet by ity o f tablet 00:00: mouth [place] 00 every Medical morning. Branch spironolact 2020-0 Yes 50mg Take 1 [facility] one 50 mg 6-16 tablet by ity o f tablet 00:00: mouth [place] 00 every Medical morning. Branch spironolact 2020-0 Yes 50mg Take 1 [facility] one 50 mg 6-16 tablet by ity o f tablet 00:00: mouth [place] 00 every Medical morning. Branch spironolact 2020-0 Yes 50mg Take 1 [facility] one 50 mg 6-16 tablet by ity o f tablet 00:00: mouth [place] 00 every Medical morning. Branch spironolact 2020-0 Yes 50mg Take 1 [facility] one 50 mg 6-16 tablet by ity o f tablet 00:00: mouth [place] 00 every Medical morning. Branch spironolact 2020-0 Yes 50mg Take 1 [facility] one 50 mg 6-16 tablet by ity o f tablet 00:00: mouth [place] 00 every Medical morning. Branch spironolact 2020-0 Yes 50mg Take 1 [facility] one 50 mg 6-16 tablet by ity o f tablet 00:00: mouth [place] 00 every Medical morning. Branch spironolact 2020-0 Yes 50mg Take 1 Univ ers one 50 mg 6-16 tablet by ity o f tablet 00:00: mouth [place] 00 every Medical morning. Branch spironolact 2020-0 Yes 50mg Take 1 Univ ers one 50 mg 6-16 tablet by ity o f tablet 00:00: mouth [place] 00 every Medical morning. Branch spironolact 2020-0 Yes 50mg Take 1 Univ ers one 50 mg 6-16 tablet by ity o f tablet 00:00: mouth [place] 00 every Medical morning. Branch spironolact 2020-0 Yes 50mg Take 1 Univ ers one 50 mg 6-16 tablet by ity o f tablet 00:00: mouth [place] 00 every Medical morning. Branch spironolact 2020-0 Yes 50mg Take 1 Univ ers one 50 mg 6-16 tablet by ity o f tablet 00:00: mouth [place] 00 every Medical morning. Branch spironolact 2020-0 Yes 50mg Take 1 Univ ers one 50 mg 6-16 tablet by ity o f tablet 00:00: mouth [place] 00 every Medical morning. Branch sevelamer 2020-0 Yes 1600mg Take 2 Univ ers 800 mg 6-12 tablets by ity of tablet 00:00: mouth. Medical Branch sevelamer 2020-0 Yes 1600mg Take 2 Univ ers 800 mg 6-12 tablets by ity of tablet 00:00: mouth. Medical Branch sevelamer 2020-0 Yes 1600mg Take 2 [facility] ers 800 mg 6-12 tablets by ity of tablet 00:00: mouth. Medical Branch sevelamer 2020-0 Yes 1600mg Take 2 [facility] ers 800 mg 6-12 tablets by ity of tablet 00:00: mouth. Medical Branch sevelamer 2020-0 Yes 1600mg Take 2 [facility] ers 800 mg 6-12 tablets by ity of tablet 00:00: mouth. Medical Branch sevelamer 2020-0 Yes 1600mg Take 2 [facility] ers 800 mg 6-12 tablets by ity of tablet 00:00: mouth. [place] [facility] sevelamer 2020-0 Yes 1600mg Take 2 Univ ers 800 mg 6-12 tablets by ity of tablet 00:00: mouth. [place] [facility] sevelamer 2020-0 Yes 1600mg Take 2 [facility] ers 800 mg 6-12 tablets by ity of tablet 00:00: mouth. [place] [facility] sevelamer 2020-0 Yes 1600mg Take 2 Univ ers 800 mg 6-12 tablets by ity of tablet 00:00: mouth. [place] [facility] sevelamer 2020-0 Yes 1600mg Take 2 Univ ers 800 mg 6-12 tablets by ity of tablet 00:00: mouth. [place] [facility] sevelamer 2020-0 Yes 1600mg Take 2 [facility] ers 800 mg 6-12 tablets by ity of tablet 00:00: mouth. [place] [facility] sevelamer 2020-0 Yes 1600mg Take 2 [facility] ers 800 mg 6-12 tablets by ity of tablet 00:00: mouth. [place] [facility] sevelamer 2020-0 Yes 1600mg Take 2 Univ ers 800 mg 6-12 tablets by ity of tablet 00:00: mouth. [place] [facility] sevelamer 2020-0 Yes 1600mg Take 2 Univ ers 800 mg 6-12 tablets by ity of tablet 00:00: mouth. [place] [facility] sevelamer 2020-0 Yes 1600mg Take 2 [facility] ers 800 mg 6-12 tablets by ity of tablet 00:00: mouth. [place] [facility] sevelamer 2020-0 Yes 1600mg Take 2 Univ ers 800 mg 6-12 tablets by ity of tablet 00:00: mouth. [place] [facility] sevelamer 2020-0 2023- No 1600mg Take 2 Uni vers 800 mg 6-12 06-21 tablets by ity of tablet 00:00: 00:00 mouth. [place] 00 :00 Medical Branch sevelamer 2020-0 2023- No 1600mg Take 2 Uni vers 800 mg 6-12 06-21 tablets by ity of tablet 00:00: 00:00 mouth. [place] 00 :00 Medical Branch traMADOL 2018-0 Yes 50mg Take 1 [facility] (ULTRAM) 50 7-19 tablet by ity of mg tablet 00:00: mouth [place] [id number] every 6 Medical (six) Branch hours as [...] Branch at bedtime as needed for Gas. docusate 2018-0 Yes 240mg Take 1 Univer [...] needed [facility] [place] for Branch Constipati on. 2017-0 Yes 1{tbl} Take 1 Unive rs vitamin 7-03 tablet by ity of w/FA tablet 00:00: mouth [place] 00 daily. Medical Branch ferrous 2018-0 Yes 325mg Take 1 [facility] sulfate 325 7-03 tablet by ity of mg (65 mg 00:00: mouth 2 [place] iron) 00 (two) Medical tablet times Branch daily. simethicone 2018-0 Yes 160mg Take 2 Uni vers 80 mg 7-03 tablets by ity of chewable 00:00: mouth [place] tablet 00 after Medical meals and Branch at bedtime as needed for Gas. docusate 2018-0 Yes 240mg Take 1 Univer [...] needed [facility] [place] for Branch Constipati on. 2018-0 Yes 1{tbl} Take 1 Unive rs vitamin 7-03 tablet by ity of w/FA tablet 00:00: mouth [place] 00 daily. Medical Branch ferrous 2018-0 Yes 325mg Take 1 [facility] sulfate 325 7-03 tablet by ity of mg (65 mg 00:00: mouth 2 [place] iron) 00 (two) Medical tablet times Branch daily. simethicone 2018-0 Yes 160mg Take 2 Uni vers 80 mg 7-03 tablets by ity of chewable 00:00: mouth [place] tablet 00 after Medical meals and Branch at bedtime as needed for Gas. docusate 2018-0 Yes 240mg Take 1 Univer [...] needed [facility] [place] for Branch Constipati on. 2017-0 Yes 1{tbl} Take 1 Unive rs vitamin 7-03 tablet by ity of w/FA tablet 00:00: mouth [place] 00 daily. Medical Branch ferrous 2017-0 Yes 325mg Take 1 [facility] sulfate 325 7-03 tablet by ity of mg (65 mg 00:00: mouth 2 [place] iron) 00 (two) Medical tablet times Branch daily. simethicone 2018-0 Yes 160mg Take 2 Uni vers 80 mg 7-03 tablets by ity of chewable 00:00: mouth [place] tablet 00 after Medical meals and Branch at bedtime as needed for Gas. docusate 2018-0 Yes 240mg Take 1 Univer [...] needed [facility] [place] for Branch Constipati on. 2018-0 Yes 1{tbl} Take 1 Unive rs vitamin 7-03 tablet by ity of w/FA tablet 00:00: mouth [place] 00 daily. Medical Branch ferrous 2018-0 Yes 325mg Take 1 [facility] sulfate 325 7-03 tablet by ity of mg (65 mg 00:00: mouth 2 [place] iron) 00 (two) Medical tablet times Branch daily. simethicone 2018-0 Yes 160mg Take 2 Uni vers 80 mg 7-03 tablets by ity of chewable 00:00: mouth [place] tablet 00 after Medical meals and Branch at bedtime as needed for Gas. docusate 2018-0 Yes 240mg Take 1 Univer [...] needed [facility] [place] for Branch Constipati on. 2018-0 Yes 1{tbl} Take 1 Unive rs vitamin 7-03 tablet by ity of w/FA tablet 00:00: mouth [place] 00 daily. Medical Branch ferrous 2018-0 Yes 325mg Take 1 [facility] sulfate 325 7-03 tablet by ity of mg (65 mg 00:00: mouth 2 [place] iron) 00 (two) Medical tablet times Branch daily. simethicone 2018-0 Yes 160mg Take 2 Uni vers 80 mg 7-03 tablets by ity of chewable 00:00: mouth [place] tablet 00 after Medical meals and Branch at bedtime as needed for Gas. docusate 0 Yes 240mg Take 1 Univer s calcium 240 7-03 capsule by it y of mg capsule 00:00: mouth once [place] 00 daily as Medical needed for Branch Constipati on. magnesium 2018-0 Yes 30mL Take 30 mL Un bal[place] hydroxide 7-03 by mouth ity of 400 mg/5 mL 00:00: once daily [place] suspension 00 as needed [facility]i [place]inth[place] for Branch Constipati on. 2018-0 Yes 1{tbl} Take 1 Unive rs vitamin 7-03 tablet by ity of w/FA tablet 00:00: mouth [place] 00 daily. Medical Branch ferrous 2018-0 Yes 325mg Take 1 [facility] sulfate 325 7-03 tablet by ity of mg (65 mg 00:00: mouth 2 [place] iron) 00 (two) Medical tablet times Branch daily. simethicone 2018-0 Yes 160mg Take 2 Uni vers 80 mg 7-03 tablets by ity of chewable 00:00: mouth [place] tablet 00 after Medical meals and Branch at bedtime as needed for Gas. docusate 2018-0 Yes 240mg Take 1 Univer [...] needed [facility] [place] for Branch Constipati on. 2018-0 Yes 1{tbl} Take 1 Unive rs vitamin 7-03 tablet by ity of w/FA tablet 00:00: mouth [place] 00 daily. Medical Branch ferrous 2018-0 Yes 325mg Take 1 [facility] sulfate 325 7-03 tablet by ity of mg (65 mg 00:00: mouth 2 [place] iron) 00 (two) Medical tablet times Branch daily. simethicone 2018-0 Yes 160mg Take 2 Uni vers 80 mg 7-03 tablets by ity of chewable 00:00: mouth [place] tablet 00 after Medical meals and Branch at bedtime as needed for Gas. docusate Yes 240mg Take 1 Univer s calcium 240 7-03 capsule by it y of mg capsule 00:00: mouth once [place] 00 daily as Medical needed for Branch Constipati on. magnesium 0 Yes 30mL Take 30 mL Un [place] hydroxide 7-03 by mouth ity of 400 mg/5 mL 00:00: once daily [place] suspension 00 as needed [facility]i [facility] for Branch Constipati on. 2017-0 Yes 1{tbl} Take 1 Unive rs vitamin 7-03 tablet by ity of w/FA tablet 00:00: mouth [place] 00 daily. Medical Branch ferrous Yes 325mg Take 1 [facility] sulfate 325 7-03 tablet by ity of mg (65 mg 00:00: mouth 2 [place] iron) 00 (two) Medical tablet times Branch daily. docusate 0 Yes 240mg Take 1 Univer s calcium 240 7-03 capsule by it y of mg capsule 00:00: mouth once [place] 00 daily as Medical needed for Branch Constipati on. docusate 0 Yes 240mg Take 1 Univer s calcium 240 7-03 capsule by it y of mg capsule 00:00: mouth once [place] 00 daily as Medical needed for Branch Constipati on. docusate 0 Yes 240mg Take 1 Univer s calcium 240 7-03 capsule by it y of mg capsule 00:00: mouth once [place] 00 daily as Medical needed for Branch Constipati on. docusate 2018-0 Yes 240mg Take 1 Univer s calcium 240 7-03 capsule by it y of mg capsule 00:00: mouth once [place] 00 daily as Medical needed for Branch Constipati on. docusate 2018-0 Yes 240mg Take 1 Univer s calcium 240 7-03 capsule by it y of mg capsule 00:00: mouth once [place] 00 daily as Medical needed for Branch Constipati on. simethicone 2018-0 Yes 160mg Take 2 Uni [...] needed [facility] for Branch Constipati on. 2018-0 Yes 1{tbl} Take 1 Unive rs vitamin 7-03 tablet by ity of w/FA tablet 00:00: mouth [place] 00 daily. Medical Branch ferrous 2018-0 Yes 325mg Take 1 [facility] sulfate 325 7-03 tablet by ity of mg (65 mg 00:00: mouth 2 [place] iron) 00 (two) Medical tablet times Branch daily. simethicone 2018-0 Yes 160mg Take 2 Uni [...] needed [facility] for Branch Constipati on. 2018-0 Yes 1{tbl} Take 1 Un[facility] rs vitamin 7-03 tablet by ity of w/FA tablet 00:00: mouth [place] 00 daily. Medical Branch ferrous 2018-0 Yes 325mg Take 1 [facility] sulfate 325 7-03 tablet by ity of mg (65 mg 00:00: mouth 2 [place] iron) 00 (two) Medical tablet times Branch daily. simethicone 2018-0 Yes 160mg Take 2 Uni [...] needed [facility] for Branch Constipati on. 2017-0 Yes 1{tbl} Take 1 Un[facility] rs vitamin 7-03 tablet by ity of w/FA tablet 00:00: mouth [place] 00 daily. Medical Branch ferrous 2017-0 Yes 325mg Take 1 [facility] sulfate 325 7-03 tablet by ity of mg (65 mg 00:00: mouth 2 [place] iron) 00 (two) Medical tablet times Branch daily. simethicone 2018-0 Yes 160mg Take 2 Uni [...] needed [facility] [place] for Branch Constipati on. 2018-0 Yes 1{tbl} Take 1 Unive rs vitamin 7-03 tablet by ity of w/FA tablet 00:00: mouth [place] 00 daily. Medical Branch ferrous 2018-0 Yes 325mg Take 1 [facility] sulfate 325 7-03 tablet by ity of mg (65 mg 00:00: mouth 2 [place] iron) 00 (two) Medical tablet times Branch daily. simethicone 2018-0 Yes 160mg Take 2 Uni [...] needed [facility] for Branch Constipati on. 2018-0 Yes 1{tbl} Take 1 Un[facility] rs vitamin 7-03 tablet by ity of w/FA tablet 00:00: mouth [place] 00 daily. Medical Branch ferrous 2018-0 Yes 325mg Take 1 [facility] sulfate 325 7-03 tablet by ity of mg (65 mg 00:00: mouth 2 [place] iron) 00 (two) Medical tablet times Branch daily. simethicone 2018-0 Yes 160mg Take 2 Uni [...] needed [facility] [place] for Branch Constipati on. 2018-0 Yes 1{tbl} Take 1 Unive rs vitamin 7-03 tablet by ity of w/FA tablet 00:00: mouth [place] 00 daily. Medical Branch ferrous 2018-0 Yes 325mg Take 1 [facility] sulfate 325 7-03 tablet by ity of mg (65 mg 00:00: mouth 2 [place] iron) 00 (two) Medical tablet times Branch daily. simethicone 2018-0 Yes 160mg Take 2 Uni [...] needed [facility] for Branch Constipati on. 2018-0 Yes 1{tbl} Take 1 Unive rs vitamin 7-03 tablet by ity of w/FA tablet 00:00: mouth [place] 00 daily. Medical Branch ferrous 2018-0 Yes 325mg Take 1 [facility] sulfate 325 7-03 tablet by ity of mg (65 mg 00:00: mouth 2 [place] iron) 00 (two) Medical tablet times Branch daily. simethicone 2018-0 Yes 160mg Take 2 Uni [...] needed [facility] for Branch Constipati on. 2018-0 Yes 1{tbl} Take 1 Unive rs vitamin 7-03 tablet by ity of w/FA tablet 00:00: mouth [place] 00 daily. Medical Branch ferrous 2018-0 Yes 325mg Take 1 [facility] sulfate 325 7-03 tablet by ity of mg (65 mg 00:00: mouth 2 [place] iron) 00 (two) Medical tablet times Branch daily. simethicone 2018-0 Yes 160mg Take 2 Uni [...] needed [facility] for Branch Constipati on. 0 Yes 1{tbl} Take 1 Unive rs vitamin 7-03 tablet by ity of w/FA tablet 00:00: mouth [place] 00 daily. Medical Branch ferrous 2017-0 Yes 325mg Take 1 [facility] sulfate 325 7-03 tablet by ity of mg (65 mg 00:00: mouth 2 [place] iron) 00 (two) Medical tablet times Branch daily. simethicone 2018-0 Yes 160mg Take 2 Uni [...] needed [facility] for Branch Constipati on. 2018-0 Yes 1{tbl} Take 1 Unive rs vitamin 7-03 tablet by ity of w/FA tablet 00:00: mouth [place] 00 daily. Medical Branch ferrous 2018-0 Yes 325mg Take 1 [facility] sulfate 325 7-03 tablet by ity of mg (65 mg 00:00: mouth 2 [place] iron) 00 (two) Medical tablet times Branch daily. simethicone 2018-0 Yes 160mg Take 2 Uni vers 80 mg 7-03 tablets by ity of chewable 00:00: mouth [place] tablet 00 after Medical meals and Branch at bedtime as needed for Gas. chlorhexidi 2018-0 Yes 15mL Swish and U nivers ne 0.12 % 03 spit out ity of mouthwash 00:00: 15 [...] needed [facility] for Branch Constipati on. 2018-0 Yes 1{tbl} Take 1 Unive rs vitamin 7-03 tablet by ity of w/FA tablet 00:00: mouth [place] 00 daily. Medical Branch ferrous 2018-0 Yes 325mg Take 1 [facility] sulfate 325 7-03 tablet by ity of mg (65 mg 00:00: mouth 2 [place] iron) 00 (two) Medical tablet times Branch daily. simethicone 2018-0 Yes 160mg Take 2 Uni vers 80 mg 7-03 tablets by ity of chewable 00:00: mouth [place] tablet 00 after Medical meals and Branch at bedtime as needed for Gas. docusate 2018-0 Yes 240mg Take 1 Univer [...] needed [facility] for Branch Constipati on. 2018-0 Yes 1{tbl} Take 1 Unive rs vitamin 7-03 tablet by ity of w/FA tablet 00:00: mouth [place] 00 daily. Medical Branch ferrous 2018-0 Yes 325mg Take 1 [facility] sulfate 325 7-03 tablet by ity of mg (65 mg 00:00: mouth 2 [place] iron) 00 (two) Medical tablet times Branch daily. simethicone 2018-0 Yes 160mg Take 2 Uni vers 80 mg 7-03 tablets by ity of chewable 00:00: mouth [place] tablet 00 after Medical meals and Branch at bedtime as needed for Gas. docusate 2018-0 Yes 240mg Take 1 Univer [...] needed [facility]i [facility] for Branch Constipati on. 2018-0 Yes 1{tbl} Take 1 Unive rs vitamin 7-03 tablet by ity of w/FA tablet 00:00: mouth [place] 00 daily. Medical Branch ferrous 2018-0 Yes 325mg Take 1 [facility] sulfate 325 7-03 tablet by ity of mg (65 mg 00:00: mouth 2 [place] iron) 00 (two) Medical tablet times Branch daily. simethicone 2018-0 Yes 160mg Take 2 Uni vers 80 mg 7-03 tablets by ity of chewable 00:00: mouth [place] tablet 00 after Medical meals and Branch at bedtime as needed for Gas. docusate 2018-0 Yes 240mg Take 1 Univer [...] needed [facility] [place] for Branch Constipati on. 2018-0 Yes 1{tbl} Take 1 Unive rs vitamin 7-03 tablet by ity of w/FA tablet 00:00: mouth [place] 00 daily. Medical Branch ferrous 2018-0 Yes 325mg Take 1 [facility] sulfate 325 7-03 tablet by ity of mg (65 mg 00:00: mouth 2 [place] iron) 00 (two) Medical tablet times Branch daily. simethicone 2018- Yes 160mg Take 2 Uni vers 80 mg 7-03 tablets by ity of chewable 00:00: mouth [place] tablet 00 after Medical meals and Branch at bedtime as needed for Gas. docusate 2018- Yes 240mg Take 1 Univer [...] needed [facility]i [facility] for Branch Constipati on. 2017-0 Yes 1{tbl} Take 1 Unive rs vitamin 7-03 tablet by ity of w/FA tablet 00:00: mouth [place] 00 daily. Medical Branch ferrous 2017- Yes 325mg Take 1 [facility] sulfate 325 7-03 tablet by ity of mg (65 mg 00:00: mouth 2 [place] iron) 00 (two) Medical tablet times Branch daily. chlorhexidi 2017-2022- No 15mL Swish and [facility] ne 0.12 % 12-13 06-09 spit out ity o f mouthwash 00:00: 00:00 15 [place] 2 [place] :[place] (two) Medical times Branch daily. chlorhexidi 2017-0 2022- No 15mL Swish and Univers ne 0.12 % - 06-09 spit out ity o f mouthwash 00:00: 00:00 15 [place] 2 [place] :00 (two) Medical times Branch daily. chlorhexidi 2017-0 2022- No 15mL Swish and Univers ne 0.12 % 12-13 06-09 spit out ity o f mouthwash 00:00: 00:00 15 [place] 2 [place] :00 (two) Medical times Branch daily. SELECT-OB + Yes TAKE [...] Status Comments Sourc e Immunization Name Name [facility] 2017-12-06 Completed [facility] 00:00:00 [facility] 2017-12-06 Completed [facility] of 00:00:00 [facility] 2017-12-06 Completed University of 00:00:00 [facility] 2017-12-06 Completed University of 00:00:00 [facility] 2017-12-06 Completed University of 00:00:00 [facility] 2017-12-06 Completed University of 00:00:00 [facility] 2017-12-06 Completed University of 00:00:00 [facility] 2017-12-06 Completed University of 00:00:00 [facility] 2017-12-06 Completed University of 00:00:00 [facility] 2017-12-06 Completed University of 00:00:00 [facility] 2017-12-06 Completed [facility] of 00:00:00 [facility] 2017-12-06 Completed [facility] of 00:00:00 [facility] 2017-12-06 Completed [facility] of 00:00:00 [facility] 2017-12-06 Completed University of 00:00:00 [facility] TD 2017-12-06 Completed University of 00:00:00 [facility] TD 2017-12-06 Completed University of 00:00:00 [facility] TDAP 2017-12-06 Completed University of 00:00:00 [facility] TDAP 2017-12-06 Completed University of 00:00:00 [facility] TDAP 2017-12-06 Completed [facility] of 00:00:00 [facility] TDAP 2017-12-06 Completed [facility] of 00:00:00 [facility] 2017-12-06 Completed [facility] of 00:00:00 [facility] 2017-12-06 Completed [facility] of 00:00:00 [facility] TDAP 2017-12-06 Completed [facility] of 00:00:00 [facility] TDAP 2017-12-06 Completed [facility] of 00:00:00 [facility] TDAP 2017-12-06 Completed [facility] of 00:00:00 [facility] TDAP 2017-12-06 Completed [facility] of 00:00:00 [facility] TDAP 2017-12-06 Completed [facility] of 00:00:00 [facility] TDAP 2017-12-06 Completed [facility] of 00:00:00 [facility] TDAP 2017-12-06 Completed [facility] 00:00:00 [facility] Tdap 2017-12-[address] [facility] [facility] [facility] 00:00:00 [facility] 2015-12-12 Completed University of 00:00:00 [facility] TDAP 2015-12-12 Completed [facility] of 00:00:00 [facility] TDAP 2015-12-12 Completed [facility] of 00:00:00 [facility] TDAP 2015-12-12 Completed [facility] of 00:00:00 [facility] TDAP 2015-12-12 Completed [facility] of 00:00:00 [facility] TDAP 2015-12-12 Completed [facility] of 00:00:00 [facility] TDAP 2015-12-12 Completed [facility] of 00:00:00 [facility] TDAP 2015-12-12 Completed [facility] of 00:00:00 [facility] TDAP 2015-12-12 Completed [facility] of 00:00:00 [facility] TDAP 2015-12-12 Completed [facility] of 00:00:00 [facility] TDAP 2015-12-12 Completed [facility] of 00:00:00 [facility] TDAP 2015-12-12 Completed [facility] of 00:00:00 [facility] TDAP 2015-12-12 Completed [facility] of 00:00:00 [facility] TDAP 2015-12-12 Completed [facility] of 00:00:00 [facility] TDAP 2015-12-12 Completed [facility] of 00:00:00 [facility] TDAP 2015-12-12 Completed University of 00:00:00 [facility] TDAP 2015-12-12 Completed [facility] of 00:00:00 [facility] TDAP 2015-12-12 Completed [facility] of 00:00:00 [facility] TDAP 2015-12-12 Completed [facility] of 00:00:00 [facility] TDAP 2015-12-12 Completed [facility] of 00:00:00 [facility] TDAP 2015-12-12 Completed [facility] of 00:00:00 [facility] TDAP 2015-12-12 Completed University of 00:00:00 [facility] TDAP 2015-12-12 Completed [facility] of 00:00:00 [facility] TDAP 2015-12-12 Completed University of 00:00:00 [facility] TDAP 2015-12-12 Completed [facility] of 00:00:00 [facility] TDAP 2015-12-12 Completed [facility] of 00:00:00 [facility] TDAP 2015-12-12 Completed [facility] 00:00:00 [facility] TDAP 2015-12-12 Completed [facility] 00:00:00 [facility] TDAP 2015-12-12 Completed [facility] 00[facility]00:00 [facility] Tdap 2015-12-[address] [facility] [facility] 00[facility]00:00 [facility] Tdap 2015-12-[address] [facility] 00:00:00 [facility] TDAP 2014-02-08 Completed University of 00:00:00 [facility] TDAP 2014-02-08 Completed [facility] of 00:00:00 [facility] TDAP 2014-02-08 Completed [facility] of 00:00:00 [facility] TDAP 2014-02-08 Completed [facility] of 00:00:00 [facility] TDAP 2014-02-08 Completed [facility] of 00:00:00 [facility] TDAP 2014-02-08 Completed [facility] of 00:00:00 [facility] TDAP 2014-02-08 Completed [facility] of 00:00:00 [facility] TDAP 2014-02-08 Completed [facility] of 00:00:00 [facility] TDAP 2014-02-08 Completed [facility] of 00:00:00 [facility] TDAP 2014-02-08 Completed [facility] of 00:00:00 [facility] TDAP 2014-02-08 Completed [facility] of 00:00:00 [facility] TDAP 2014-02-08 Completed [facility] of 00:00:00 [facility] TDAP 2014-02-08 Completed [facility] 00:00:00 [facility] TDAP 2014-02-08 Completed [facility] 00:00:00 [facility] TDAP 2014-02-08 [facility] 00[facility]:00 [facility] TDAP 2014-02-08 Completed [facility] 00:00:00 [facility] TDAP 2014-02-08 Completed [facility] 00:00:00 [facility] TDAP 2014-02-08 Completed [facility] 00:00:00 [facility] 2014-02-[address] [facility] 00:00:00 [facility] 2014-02-[address] [facility] 00[facility]00:00 [facility] 2014-02-[address] [facility] 00:00:00 [facility] Vital Signs Vital Name Observation Time Observation Value Comments Source Systolic blood 2023-01-12 19:20:00 164 mm[Hg] Univer sity of pressure [facility] Diastolic blood 2023-01-12 19:20:00 130 mm[Hg] Unive rsity of pressure [facility] Heart rate 2023-01-12 19:20:00 89 /min [facility] Oxygen saturation in 2023-01-12 19:20:00 100 /min [facility] Arterial blood by [facility] Pulse oximetry [place] Body temperature 2023-01-12 19:19:[facility] 2023-01-12 19:19:00 157.5 cm [facility] Body weight 2023-01-12 19:19:00 67.132 kg [facility] BMI 2023-01-12 19:19:00 27.07 kg/m2 [facility] [place] [facility] Systolic blood 2022-12-03 01:05:00 111 mm[Hg] [facility] [place] [facility] Diastolic blood 2022-12-03 01:05:00 69 mm[Hg] [facility] [place] [facility] Heart rate 2022-12-03 01:05:00 92 /min [facility] [place] [facility] Body temperature 2022-12-03 01:05:00 36.39 Lois [facility] [place] [facility] Respiratory rate 2022-12-03 01:05:00 18 /min [facility] [place] [facility] Oxygen saturation in 2022-12-03 01:05:00 100 /min [facility] Arterial blood by [place] [employer] cinthia Pulse oximetry Branch Body weight 2022-12-02 18:20:00 64.5 kg [facility] [place] [facility] BMI 2022-12-02 18:20:00 26.01 kg/m2 [facility] [place] [facility] Body height 2022-11-26 22:30:00 157.5 cm [facility] [place] [facility] Systolic blood 2022-11-30 17:15:00 110 mm[Hg] [facility] [place] [facility] Diastolic blood 2022-11-30 17:15:00 70 mm[Hg] [facility] [place] [facility] Heart rate 2022-11-30 17:15:00 69 /min [facility] [place] [facility] Body temperature 2022-11-30 17:15:00 2.28 Lois [facility] [place] [facility] Respiratory rate 2022-11-30 17:15:00 17 /min [facility] [place] [facility] Body weight 2022-11-30 17:15:00 64.5 kg [facility] [place] [facility] BMI 2022-11-30 17:15:00 26.32 kg/m2 [facility] [place] [facility] Oxygen saturation in 2022-11-30 12:35:00 100 /min [facility]ial blood by [place] [employer] [facility] Body height 2022-11-26 22:30:00 157.5 cm [facility] [place] [facility] Systolic blood 2022-11-19 16:31:00 183 mm[Hg] [facility] [place] [facility] Diastolic blood 2022-11-19 16:31:00 124 mm[Hg] [facility] [place] [facility] Respiratory rate 2022-11-19 16:31:00 15 /min [facility] [place] [facility] Oxygen saturation in 2022-11-19 16:31:00 96 /min [facility] Arterial blood by [facility] cinthia Pulse oximetry Branch Heart rate 2022-11-19 13:08:00 67 /min [facility] [place] [facility] Body temperature 2022-11-19 13:08:00 36.67 Lois [facility] [place] [facility] Body height 2022-11-19 13:08:00 157.5 cm [facility] [place] [facility] Body weight 2022-11-19 13:08:00 65.5 kg [facility] [place] [facility] BMI 2022-11-19 13:08:00 26.41 kg/m2 [facility] [place] [facility] Systolic blood 2022-11-19 16:31:00 183 mm[Hg] [facility] [place] [facility] Diastolic blood 2022-11-19 16:31:00 124 mm[Hg] [facility] [place] [facility] Respiratory rate 2022-11-19 16:31:00 15 /min [facility] [place] [facility] Oxygen saturation in 2022-11-19 16:31:00 96 /min [facility] Arterial blood by [facility] Pulse oximetry Branch Heart rate 2022-11-19 13:08:00 67 /min [facility] [place] [facility] Body temperature 2022-11-19 13:08:00 36.67 Lois [facility] [place] [facility] Body height 2022-11-19 13:08:00 157.5 cm [facility] [place] [facility] Body weight 2022-11-19 13:08:00 65.5 kg [facility] [place] [facility] BMI 2022-11-19 13:08:00 26.41 kg/m2 [facility] [place] [facility] Systolic blood 2022-10-22 21:02:00 188 mm[Hg] [facility] [place] [facility] Diastolic blood 2022-10-22 21:02:00 109 mm[Hg] [facility] [place] [facility] Systolic blood 2022-10-22 14:58:00 195 mm[Hg] [facility] [place] [facility] Diastolic blood 2022-10-22 14:58:00 110 mm[Hg] [facility] [place] [facility] Heart rate 2022-10-22 14:58:00 61 /min [facility] [place] [facility] Body temperature 2022-10-22 14:58:00 36.83 Lois [facility] [place] [facility] Respiratory rate 2022-10-22 14:58:00 16 /min [facility] [place] [facility] Body height 2022-10-22 14:58:00 157.5 cm [facility] [place] [facility] Body weight 2022-10-22 14:58:00 68.176 kg [facility] [place] [facility] BMI 2022-10-22 14:58:00 27.49 kg/m2 [facility] [place] [facility] Oxygen saturation in 2022-10-22 14:58:00 98 /min [facility] Arterial blood by [employer] Pulse oximetry Branch HEIGHT 2020-10-07 11:13:00 159.2 cm WEIGHT 2020-10-07 11:13:00 66.225 kg HEIGHT 2020-10-07 11:13:00 159.2 cm WEIGHT 2020-10-07 11:13:00 66.225 kg Systolic blood 2022-11-30 17:15:00 110 mm[Hg] [facility] [place] [facility] Diastolic blood 2022-11-30 17:15:00 70 mm[Hg] [facility] [place] [facility] Heart rate 2022-11-30 17:15:00 69 /min [facility] [place] [facility] Body temperature 2022-11-30 17:15:00 2.28 Lois [facility] [place] [facility] Respiratory rate 2022-11-30 17:15:00 17 /min [facility] [place] [facility] Body weight 2022-11-30 17:15:00 64.5 kg [facility] [place] [facility] BMI 2022-11-30 17:15:00 26.01 kg/m2 [facility] [place] [facility] Oxygen saturation in 2022-11-30 12:35:00 100 /min [facility] Arterial blood by [employer] cinthia Pulse oximetry Branch Body height 2022-11-26 22:30:00 157.5 cm [facility] [place] [facility] Systolic blood 2020-10-07 11:13:00 202 mm[Hg] [facility] Diastolic blood 2020-10-07 11:13:00 133 mm[Hg] [facility] Heart rate 2020-10-07 11:13:00 73 /min [facility] Body temperature 2020-10-07 11:13:00 36.61 Lois [facility] Respiratory rate 2020-10-07 11:13:00 20 /min [facility] Body height 2020-10-07 11:13:00 159.2 cm [facility] Body weight 2020-10-07 11:13:00 66.225 kg [facility] BMI 2020-10-07 11:13:00 26.13 kg/m2 [facility] Procedures Procedure Date / Time Performing Clinician Source Performed MEDICATION CORRESPONDENCE 2023-01-05 Doctor Unassigned, [facility] 05:01:00 [facility] URINALYSIS 2022-12-02 [facility] 12:48:00 [facility] BASIC METABOLIC PANEL (NA, 2022-12-02 [facility] K, CL, CO2, GLUCOSE, BUN, 10:14:00 [facility] CREATININE, [place]) PHOSPHORUS 2022-12-01 [facility] 11:38:00 Medical Branch MAGNESIUM 2022-12-01 [facility] 11:38:00 Medical [place] BASIC METABOLIC PANEL (NA, 2022-12-01 [facility] K, CL, CO2, GLUCOSE, BUN, 11:38:00 Medica [facility] CREATININE, CA) CBC WITH DIFF 2022-12-01 [facility] 11:38:00 [facility] Branch PHOSPHORUS 2022-12-01 [facility] 11:38:00 Medical Branch MAGNESIUM 2022-12-01 [facility] 11:38:00 Medical [place] BASIC METABOLIC PANEL (NA, 2022-12-01 [facility] K, CL, CO2, GLUCOSE, BUN, 11:38:00 Medica l Branch CREATININE, CA) CBC WITH DIFF 2022-12-01 Roxana [facility] 11:38:00 Medical Branch XR CHEST 1 VW 2022[facility]12-[facility] 00:00:37 Medical Branch XR CHEST 1 VW 2022-12-01 [facility] 00:00:37 Medical Branch FL TIME OR (NON-REPORTABLE) 2022-11-30 Stefano [facility] [place] 19:54:02 [facility] FL TIME OR (NON-REPORTABLE) 2022-11-30 Stefano Schmidt [facility] 19:54:02 Medical Branch ARTERIOVENOUS FISTULA 2022-11-30 [facility] 18:53:00 Medical Branch PERMACATH PLACEMENT 2022-11-30 Paulina, [facility] [place] 18:53:00 Medical Branch ARTERIOVENOUS FISTULA 2022-11-30 [facility] RE[facility] 18:53:00 Medical Branch PERMACATH PLACEMENT 2022-11-30 Paulina, [facility] [place] 18:53:00 Medical Branch HEPATITIS B SURFACE ANTIBODY 2022-11-30 Dorian, Latonya [facility] [place] 10:38:00 [facility] HEPATITIS B SURFACE ANTIBODY 2022-11-30 Dorian, Latonya [facility] [place] 10:38:00 [facility] HEPATITIS B SURFACE ANTIBODY 2022-11-30 Dorian, Latonya [facility] [place] 10:38:00 [facility] BASIC METABOLIC PANEL (NA, 2022-11-30 [facility] K, CL, CO2, GLUCOSE, BUN, 10:32:00 Robe [facility]ica l [facility] CREATININE, CA) CBC WITH DIFF 2022-11-30 Josee [facility] 10:32:00 [facility]e [facility] BASIC METABOLIC PANEL (NA, 2022-11-30 [facility] K, CL, CO2, GLUCOSE, BUN, 10:32:00 [facility] CREATININE, CA) CBC WITH DIFF 2022-11-30 [facility] [place] 10:32:00 [facility] BASIC METABOLIC PANEL (NA, 2022-11-30 Josee [facility] K, CL, CO2, GLUCOSE, BUN, 10:32:00 [facility]e [facility] l [facility] CREATININE, CA) CBC WITH DIFF 2022-11-30 [facility] 10:32:00 [facility] URINALYSIS 2022-11-29 [facility] [place] 22:10:00 [facility] URINALYSIS 2022-11-29 [facility], [facility] [place] 22:10:00 Medical Branch URINALYSIS 2022-11-29 [facility], [facility] [place] 22:10:00 Medical Branch HB ABO GROUPING 2022-11-29 [facility] 10:[facility] BASIC METABOLIC PANEL (NA, 2022-11-29 Killiangreg [facility] K, CL, CO2, GLUCOSE, BUN, 10:21:00 [facility]e [facility]ica l [facility] CREATININE, CA) CBC WITH DIFF 2022-11-29 [facility] [place] 10:21:00 [facility] MAGNESIUM 2022-11-29 [facility] [place] 10:21:00 [facility] Branch PHOSPHORUS 2022-11-29 [facility] [place] 10:21:00 [facility] HEPATITIS B SURFACE ANTIGEN 2022-11-29 [facility] 10:21:00 Medical Branch HEPATITIS B CORE ANTIBODY 2022-11-29 [facility] IGM 10:21:00 Medical Branch PHOSPHORUS 2022-11-29 [facility] [place] 10:21:00 [facility] Branch MAGNESIUM 2022-11-29 [facility] [place] 10:21:00 [facility] BASIC METABOLIC PANEL (NA, 2022-11-29 [facility] K, CL, CO2, GLUCOSE, BUN, 10:21:00 [facility] CREATININE, CA) CBC WITH DIFF 2022-11-29 [facility] [place] 10:21:00 [facility] HEPATITIS B SURFACE ANTIGEN 2022-11-29 [facility] 10:21:00 Medical Branch HEPATITIS B CORE ANTIBODY 2022-11-29 [facility] IGM 10:21:00 Medical Branch HB ABO GROUPING 2022-11-29 Roxana [facility] 10:21:00 Medical Branch PHOSPHORUS 2022-11-29 [facility] 10:21:00 [facility] MAGNESIUM 2022-11-29 [facility] 10:21:00 [facility] [place] BASIC METABOLIC PANEL (NA, 2022-11-29 [facility] K, CL, CO2, GLUCOSE, BUN, 10:21:00 [facility] CREATININE, [place]) CBC WITH DIFF 2022-11-29 [facility] [place] 10:21:00 [facility] HEPATITIS B SURFACE ANTIGEN 2022-11-29 [facility] 10:21:00 Medical Branch HEPATITIS B CORE ANTIBODY 2022-11-29 [facility] IGM 10:21:00 Medical Branch HB ABO GROUPING 2022-11-29 Roxana [facility] 10:21:00 Medical Branch PHOSPHORUS 2022-11-27 [facility] 09:28:00 [facility] MAGNESIUM 2022-11-27 [facility] 09:28[facility] BASIC METABOLIC PANEL (NA, 2022-11-27 Roxana [facility] K, CL, CO2, GLUCOSE, BUN, 09:28:00 Medica l Branch CREATININE, CA) CBC WITH DIFF 2022-11-27 Roxana [facility] 09:28:00 Medical Branch PHOSPHORUS 2022-11-27 [facility] 09:28:00 [facility] MAGNESIUM 2022-11-27 [facility] 09:28:00 Medical Branch BASIC METABOLIC PANEL (NA, 2022-11-27 [facility] [place] K, CL, CO2, GLUCOSE, BUN, 09:28:00 Medica l Branch CREATININE, CA) CBC WITH DIFF 2022-11-27 [facility] 09:28:00 Medical Branch PHOSPHORUS 2022-11-27 [facility] 09:28:00 Medical Branch MAGNESIUM 2022-11-27 [facility] 09:28:00 Medical Branch BASIC METABOLIC PANEL (NA, 2022-11-27 [facility] [place] K, CL, CO2, GLUCOSE, BUN, 09:28:00 Medica l Branch CREATININE, CA) CBC WITH DIFF 2022-11-27 [facility] 09:28:00 Medical Branch VBG+VCOOX+NA+K+GLU+CA2+ 2022-11-26 [facility] 19:[facility] VBG+VCOOX+NA+K+GLU+CA2+ 2022-11-26 [facility] 19:49:00 Medical Branch VBG+VCOOX+NA+K+GLU+CA2+ 2022-11-26 [facility] 19:49:00 Medical Branch BASIC METABOLIC PANEL (NA, 2022-11-26 Zemmedhun, Gelilla [facility] [place] K, CL, CO2, GLUCOSE, BUN, 19:41:00 Medica l Branch CREATININE, CA) BASIC METABOLIC PANEL (NA, 2022-11-26 Zemmedhun, Gelilla [facility] [place] K, CL, CO2, GLUCOSE, BUN, 19:41:00 Medica l Branch CREATININE, CA) BASIC METABOLIC PANEL (NA, 2022-11-26 Zemmedhun, Gelilla [facility] [place] K, CL, CO2, GLUCOSE, BUN, 19:41:00 Medica l Branch CREATININE, CA) CONSENT/REFUSAL FOR 2022-11-26 Doctor Unassigned, [facility] DIAGNOSIS AND TREATMENT 18:02:57 [facility] ASSIGNMENT OF BENEFITS 2022-11-26 Doctor Unassigned, [facility] 18:02:38 [facility] CONSENT/REFUSAL FOR 2022-11-26 Doctor Unassigned, [facility] DIAGNOSIS AND TREATMENT 11:35:13 [facility] ASSIGNMENT OF BENEFITS 2022-11-26 Doctor Unassigned, [facility] 11:19:00 [facility] ASSIGNMENT OF BENEFITS 2022-11-26 Doctor Unassigned, [facility] 11:19:00 [facility] FL TIME OR (NON-REPORTABLE) 2022-11-19 [facility] 16:17:00 Medical Branch FL TIME OR (NON-REPORTABLE) 2022-11-19 [facility] 16:17[facility] Branch VBG+VCOOX+NA+K+GLU+CA2+ 2022-11-19 [facility] 15:14:00 Medical Branch ANGIOGRAM VIA [facility] 2022-11-19 [facility] EXTREMITY ACCESS 15:05:00 Medical Branch ANGIOGRAM VIA [facility] 2022-11-19 [facility] EXTREMITY ACCESS 15:05:00 Medical Branch CONSENT/REFUSAL FOR 2022-11-19 Doctor Maria [facility] DIAGNOSIS AND TREATMENT 13:04:33 [facility] ASSIGNMENT OF BENEFITS 2022-11-19 Doctor Maria [facility] 13:04:17 [facility] ASSIGNMENT OF BENEFITS 2022-11-19 [facility] 13:04:17 [facility] PAP SMEAR-LIQUID BASED-CP 2022-10-22 [facility] 15:20:00 [facility] HIGH RISK HPV-THIN PREP 2022-10-22 [facility] 15:20:00 [facility] GC & CHLAMYDIA AMPLIFIED 2022-10-22 [facility] 15:20:00 [facility] TRICHOMONAS AMPLIFIED ASSAY 2022-10-22 [facility] 15:20:00 [facility] LAB ONLY PAP SMEAR-LIQUID 2022-10-22 [facility] 15:20:00 [facility] NOTICE OF BILLING PRACTICES 2022-10-22 Doctor Rishabh [facility] FOR MEDICARE PATIENTS 13:50:27 [facility] AUTHORIZATION FOR RELEASE OF 2022-10-22 Doctor Rishabh, [facility] PHI 05:01:00 [facility] AUTHORIZATION FOR RELEASE OF 2022-10-22 Doctor Rishabh, [facility] PHI 05:01:00 [facility] RUST PATIENT FINANCIAL 2022-10-14 Doctor Rishabh, [facility] POLICY 21:02:19 [facility] NO SHOW OR MISSED 2022-10-14 Doctor Rishabh, [facility] APPOINTMENT POLICY 21:02:04 [facility] ACKNOWLEDGEMENT CONSENT/REFUSAL FOR 2022-10-14 Doctor Rishabh, [facility] DIAGNOSIS AND TREATMENT 21:01:47 [facility] ASSIGNMENT OF BENEFITS 2022-10-14 Doctor Unatimo, [facility] 21:01:28 [facility] ASSIGNMENT OF BENEFITS 2022-10-14 Doctor Rishbah, [facility] 21:01:28 [facility] EXTERNAL PROVIDER RECORDS 2022-09-16 Doctor Unassigned, [facility] 05:01:00 [facility] EXTERNAL PROVIDER RECORDS 2022-09-16 Doctor Unassigned, [facility] 05:01:00 [facility] URINE CULTURE 2020-10-[address] [facility] 10:08:00 [facility] URINALYSIS W/ MICROSCOPIC 2020-10-07 [address] [facility] 10:08:00 [facility] HEMOGLOBIN A1C 2020-10-[address] [facility] 10:07:00 [facility] CBC W/PLT COUNT & AUTO 2020-10-07 [facility] DIFFERENTIAL 10:07:00 [facility] CYTOMEGALOVIRUS ANTIBODY, 2020-10-07 Anderson, Bhamidipati [facility] IGG 10:07:00 [facility] CYTOMEGALOVIRUS ANTIBODY, 2020-10-07 Anderson, Bhamidipati [facility] IGM 10:07:00 [facility] COMPREHENSIVE METABOLIC 2020-10-07 Anderson, Bhamidipati [facility] PANEL 10:07:00 [facility] EBV ANTIBODY, IGM 2020-10-07 Anderson[facility] 10:07:00 [facility] GAMMA GLUTAMYL TRANSFERASE 2020-10-07 Anderson, [facility]hamidipati [facility] (GGT) 10:07:00 [facility] HEPATITIS B SURFACE ANTIBODY 2020-10-07 Anderson, Bhamidipati [facility] 10:07:00 [facility] HEPATITIS B SURFACE ANTIGEN 2020-10-07 Anderson, Bhamidipati [facility] 10:07:00 [facility] HEPATITIS B CORE ANTIBODY, 2020-10-07 Anderson, Bhamidipati [facility] IGM 10:07:00 [facility] HEPATITIS C ANTIBODY 2020-10-07 Anderson, Bhamidipati [facility] 10:07:00 [facility] HC LAB HIV-1 AG W/HIV-1&2 AB 2020-10-07 Anderson, Bhamidipati [facility] 10:07:00 [facility] PHOSPHORUS 2020-10-07 Anderson, Bhamidipati [facility] 10:07:00 [facility] PTH, INTACT 2020-10-07 Anderson, Bhamidipati [facility] 10:07:00 [facility] PT/APTT 2020-10-07 Anderson, Bhamidipati [facility] 10:07:00 [facility] PROTHROMBIN TIME/INR 2020-10-07 Anderson, Bhamidipati [facility] 10:07:00 [facility] RPR 2020-10-07 Anderson, Bhamidipati [facility] 10:07:00 [facility] URIC ACID 2020-10-07 Anderson, Bhamidipati [facility] 10:07:00 [facility] VARICELLA ZOSTER ANTIBODY, 2020-10-07 Anderson, Bhamidipati [facility] IGG 10:07:00 [facility] ANTITHROMBIN III 2020-10-07 Anderson, [facility]ipati [facility] 10:07:00 [facility] FACTOR 5 LEIDEN PCR 2020-10-07 Anderson, [facility]ipati [facility] (THROMBOTIC RISK) 10:07:00 [facility] HC LAB PROTHROMBIN FACTOR II 2020-10-07 Anderson, Bhamidipati [facility] 10:07:00 [facility] PROTEIN C ACTIVITY 2020-10-07 Anderson[facility] 10:07:00 [facility] PROTEIN S ACTIVITY 2020-10-07 Anderson, [facility]ipati [facility] 10:07:00 [facility] PHOSPHATIDYLSERINE ABS (IGG, 2020-10-07 Anderson, Bhamidipati [facility] IGM) 10:07:00 [facility] DIRECT AHG (JOHANN)/DIRECT 2020-10-07 Anderson, Bhamidipati [facility] OTTO 10:07:00 [facility] ABORH, MANUAL 2020-10-07 Anderson, Bhamidipati [facility] 10:07:00 [facility] US PELVIS WITH DOPPLER 2020-09-25 Anderson, [facility] 12:09:00 [facility] US ABDOMEN COMPLETE 2020-09-25 Anderson, [facility]ipati [facility] 11:38:00 [facility] XR CHEST 2 VIEWS 2020-09-25 Anderson, [facility]ipati [facility] 10:24:00 [facility] 2D ECHO W/ DOPPLER 2020-09-25 Anderson, [facility]ipati [facility] (CW/PW/COLOR) 08:44:17 [facility] ECG 12-LEAD 2020-09-25 Anderson, Bhamidipati [facility] 08:24:21 [facility] T SPOT TB 2020-09-25 Anderson, Bhamidipati [facility] 08:06:00 [facility] FLOW PRA CLASS I WITH REFLEX 2020-09-25 Anderson, Bhamidipati [facility] TO ANTIBODY SPECIFICITY 08:05:00 [facility] FLOW PRA CLASS II WITH 2020-09-25 Anderson, [facility]ati [facility] REFLEX TO ANTIBODY 08:05:00 [facility] HLA TYPING CI 2020-09-25 Anderson, Bhamidipati [facility] 08:05:00 [facility] HLA TYPING CII 2020-09-25 Anderson, Bhamidipati [facility] 08:05:00 [facility] LIPID PANEL 2020-09-25 Anderson, Bhamidipati [facility] 08:05:00 [facility] BLOOD TYPING, AUTOMATED 2020-09-25 Anderson, Bhamidipati [facility] 08:05:00 [facility] Plan of Care Planned Activity Planned Date Details Comments Source Future Scheduled 2027-12-07 DTAP/TDAP/TD VACCINES [facility] 00:00:00 (4 - Td or Tdap) [code Medic al Center = DTAP/TDAP/TD VACCINES (4 - Td or Tdap)] Future Scheduled 2027-12-07 DTAP/TDAP/TD VACCINES [facility] 00:00:00 (4 - Td) [code = [facility] ter DTAP/TDAP/TD VACCINES (4 - Td)] Future Scheduled 2027-12-07 DTAP/TDAP/TD VACCINES [facility] 00:00:00 (4 - Td or Tdap) [code Medic al Center = DTAP/TDAP/TD VACCINES (4 - Td or Tdap)] Future Scheduled 2027-12-07 DTAP/TDAP/TD VACCINES [facility] 00:00:00 (4 - Td or Tdap) [code Medic al Center = DTAP/TDAP/TD VACCINES (4 - Td or Tdap)] Future Scheduled 2023-09-[address] [facility] 00:00:00 (procedure) [code = [facility] [id number]] Future Scheduled 2023-09-[address] [facility] 00:00:00 (procedure) [code = [facility] [id number]] Future Scheduled 2023-09-[address] [facility] 00:00:00 (procedure) [code = [facility] [id number]] Future Scheduled 2023-09-[address] [facility] 00:00:00 (procedure) [code = [facility] [id number]] Future Scheduled 2023-02-11 Influenza Vaccine (#1) [facility] 00:00:00 [code = Influenza Medical Ce nter Vaccine (#1)] Future Scheduled 2023-02-[address] [facility] Test 00:00:00 (Season Ended) [code = [facility] INFLUENZA VACCINE (Season Ended)] Future Scheduled 2022-06-[address] [facility] Test 00:00:00 (12+) [code = Medical Center DEPRESSION SCREENING (12+)] Future Scheduled 2022-06-[address] [facility] Test 00:00:00 (12+) [code = Medical Center DEPRESSION SCREENING (12+)] Future Scheduled 2022-02-11 INFLUENZA VACCINE (#1) [facility] 00:00:00 [code = INFLUENZA Medical Ce nter VACCINE (#1)] Future Scheduled 2021-10-[address] [facility] Test 00:00:00 Counseling and Medical Cente r Screening (12+) [code = Tobacco Cessation Counseling and Screening (12+)] Future Scheduled 2021-10-[address] [facility] Test 00:00:00 [facility]ing and Medical Cente r Screening (12+) [code = Tobacco Cessation Counseling and Screening (12+)] Future Scheduled 2021-10-[address] [...] FIRST YEAR if no IPPE)] Future Scheduled 2021-02-[address] [facility] 00:00:00 WELLNESS (YEAR 2 or Medical Center FIRST YEAR if no IPPE) [code = MEDICARE ANNUAL WELLNESS (YEAR 2 or FIRST YEAR if no IPPE)] Future Scheduled 2021-02-[address] [facility] 00:00:00 TO MEDICARE) [code = [facility] Center Medicare IPPE (WELCOME TO MEDICARE)] Future Scheduled [address] [facility] 00:[facility]:00 malignant neoplasm of Medica l Center cervix (procedure) [code = 666635006] Future Scheduled [address] [facility] 00:00:00 malignant neoplasm of Medica l Center cervix (procedure) [code = 435456019] Future Scheduled 2007 [facility]00 malignant ne[facility] cervix (procedure) [code = 520611690] Future Scheduled [address] [facility] 00:00:00 malignant ne[facility] cervix (procedure) [code = 284329911] Future Scheduled 1998 COVID-19 VACCINE (1) [facility] [...] Date/Time Type Type Clinicians Facility Department ID 2022-10-18 Outpatient Joshua GALLARDO [facility] [id number] Univers 08:52:18 EFRAÍN moreno [facility] 2020-06-03 Inpatient IsaacAbimael [facility]AC[facility] DAYS [id number] [facility] 12:00:00 45 [facility] 2020-03-25 Inpatient Abimael Guevara HCACL DAYS [id number] [facility] 07:00:00 82 [facility] 2020-02-14 Inpatient Abimael Isaac HCACL DAYS [id number] [facility] 08:30:00 03 [facility] 2023-10-27 2023-10-27 Outpatient R PHILOMENA LUEVANO RUST U [facility] [id number] Univers 08:30:00 08:30:00 [facility]23-[facility]-13 2023-01-13 [facility] [id number] Univers 15:00:00 15:00:00 EFRAÍN [facility] 2023-01-12 2023-01-12 Office Bee Ramachandran RUST 1.2 .840.114 [id number] Univers 14:00:00 14:40:00 Visit Evin SnellPEC 350.1.[address] [facility] 4.2.7.2.686 [facility] [id number] [address] DIABETES CLINIC 2023-01-12 2023-01-12 Outpatient R CHANNING [facility] [id number] Univers 14:00:00 14:00:00 EVIN bhaktay o f [facility] 2023-01-05 2023-01-05 Orders Doctor MENDOZA 1.2.840.114 [id number] Univers 00:00:00 00:00:00 Only Unassigned, GEORGES 350.1.13.[address] [place] [facility] 4.2.7.2.686 [facility] [id number] [place] [address] Branch 2022-12-28 2022-12-28 Outpatient R PHILOMENA LUEVANO RUST U [facility] [id number] Univers 11:00:00 11:00:00 PH[facility] 2022-12-16 2022-12-16 Out[facility] [id number] Univers 16:15:00 16:24:07 EFRAÍN bhaktay of [facility] 2022-12-08 2022-12-08 Letter Channing RUST 1.2.840.114 [id number] Univers 00:00:00 00:00:00 (Out) Evin Mortensen MULTISPEC 350.1.13.10 [place] [id number] [facility] [address] DIABETES CLINIC 2022-12-06 2022-12-06 Telephone Elizabeth RUST 1.2.840.114 [id number] Univers 00:00:00 00:00:00 Bee covarrubias MULTISPEC 350.1.13.10 [place] [id number] [facility] [address] DIABETES CLINIC 2022-12-06 2022-12-06 Telephone JUN Mir 1.2.840.114 10 [id number] Univers 00:00:00 00:00:[address] [facility] 350.1.13.10 [place] of [place] [id number] [facility] 185 [address] 2022-12-03 2022-12-03 Transition JOANN Lucas 1.2.840.114 [id number] Univers 00:00:00 00:00:00 of Care Liv BOSTON 350.1.13.10 [place] [id number] [facility] 403 Branch 2022-11-26 2022-12-02 Outpatient R PEDRO MIR [facility] 1 [id number] Univers 13:07:00 20:44:00 PEDRO MIR [facility] 2022-11-26 2022-12-02 Hospital Efraín Gallardo 1.2.840.114 [id number] Univers 13:07:00 20:44:00 Encounter Pedro Mir 350.1.13.10 ity of HOSPITAL 4.2.7.2.686 Cecilio as [phone] [facility] 089 Branch 2022-12-01 2022-12-01 Telephone LENNY Gallardo 1.2.840.114 10 [id number] Univers 00:00:00 00:00:00 Efraín HILL 350.1.13.10 it y of W[place] [id number] [facility] 205 Branch 2022-11-30 2022-11-30 Surgery FITZ Gallardo 1.2.840.114 [id number] Univers 11:55:00 15:40:00 Efraín SU 350.1.13.10 it y of HOSPITAL 4.2.7.2.686 Cecilio as [phone] [facility] 103 Branch 2022-11-30 2022-11-30 Anesthesia Arley, 1.2.840.1 [id number] Univers 12:38:00 12:38:00 Event Zina 54974.1.1 ity of 3.104.2.7 [place] .3.584145 Medica l .8 Branch 2022-11-26 2022-11-26 Anesthesia [place], 1.2.840.8 [id number] Univers 15:06:05 15:06:05 Event Ariana 87249.1.1 ity of 3.104.2.7 [place] .3.783882 Medica l .8 Branch 2022-11-26 2022-11-26 Orders Doctor 1.2.840.5 [id number] Univers 00:00:00 00:00:00 Only Unassigned, 87915.1.1 ity of [place] 3.104.2.7 [place] .3.197146 Medica l .8 Branch 2022-11-25 2022-11-25 Patient Doctor 1.2.840.4 [id number] Univers 00:00:00 00:00:00 Secure Msg Unassigned, 73657.1.1 ity of [place] 3.104.2.7 [place] .3.118654 Medica l .8 Branch 2022-11-25 2022-11-25 Travel 1.2.840.1 1.2.795.818 1315 [id number] Univers 00:00:00 00:00:00 82833.1.1 350.1.13.10 ity of 3.104.2.7 4[place]7.3.698 [place] .3.847849 084.8 Medica l .8 Branch 2022-11-24 2022-11-24 Telephone Paulina, 1.2.840.1 [id number] Univers 00:00:00 00:00:00 Efraín 24735.1.1 ity of 3.104.2.7 [place] .3.603880 Medica l .8 Branch 2022-11-24 2022-11-24 Patient Doctor 1.2.840.9 [id number] Univers 00:00:00 00:00:00 Secure Msg Unassigned, 72331.1.1 ity of [place] 3.104.2.7 [place] .3.887615 Medica l .8 Branch 2022-11-22 2022-11-22 Telephone Paulina, 1.2.840.2 [id number] Univers 00:00:00 00:00:00 Efraín 04310.1.1 ity of 3.104.2.7 [place] .3.584655 Medica l .8 Branch 2022-11-19 2022-11-19 Outpatient R PAULINA [facility] [id number] Univers 08:06:00 11:51:00 EFRAÍN ity of [facility] 2022-11-19 2022-11-19 Hospital [facility], 1.2.840.6 [id number] [id number] Univers 08:06:00 11:51:00 Encounter Efraín 71716.1.1 it y of 3.104.2.7 [place] .3.607215 Medica l .8 Branch 2022-11-19 2022-11-19 Surgery Paulina, 1.2.840.9 [id number] 0498 Univers 09:59:00 11:47:00 Efraín 23295.1.1 ity of 3.104.2.7 [place] .3.301871 Medica l .8 Branch 2022-11-19 2022-11-19 Anesthesia Zeynep Jackson 1.2.840.9 [id number] Univers 10:26:00 11:13:00 Event Ariana Yates 42039.1.1 ity of 3.104.2.7 [place] .3.510252 Medica l .8 Branch 2022-11-19 2022-11-19 Orders Doctor 1.2.840.3 [id number] Univers 00:00:00 00:00:00 Only Unassigned, 16799.1.1 ity of [place] 3.104.2.7 [place] .3.930516 Medica l .8 Branch 2022-11-18 2022-11-18 Patient Doctor 1.2.840.1 [id number] [facility] 00:00:00 00:00:00 Secure Msg Unassigned, 32137.1.1 ity of [place] 3.104.2.7 [place] .3.964773 Medica l .8 [place] 2022-11-18 2022-11-18 Travel 1.2.840.1 1.2.586.194 9740 [id number] Univers 00:00:00 00:00:00 17696.1.1 350.1.13.10 ity of 3.104.2.7 4.[place].7.3.698 [place] .3.426550 084.8 Medica l .8 [place] 2022-11-17 2022-11-17 Outpatient [facility] [id number] Univers 13:00:00 13:00:00 SANDRA ADAMS ity [facility] 2022-11-15 2022-11-15 Outpatient R BRYAN [facility] [id number] Univers 09:00:00 09:00:00 SANDRA ADAMS ity [facility] 2022-11-11 2022-11-11 Travel 1.2.840.1 1.2.881.118 [id number] [id number] Univers 00:00:00 00:00:00 38716.1.1 350.1.13.10 ity of 3.104.2.7 4.[place].7.3.698 [place] .3.331035 084.8 Medica l .8 Branch 2022-11-10 2022-11-10 Telephone Michel-Brandy 1.2.840.6 [id number] Univers 00:00:00 00:00:00 s, Philomena 60258.1.1 i ty of 3.104.2.7 [place] .3.451342 Medica l .8 Branch 2022-11-10 2022-11-10 Telephone Paulina, 1.2.840.3 [id number] Univers 00:00:00 00:00:00 Efraín 67243.1.1 ity of 3.104.2.7 [place] .3.021364 Medica l .8 Branch 2022-11-02 2022-11-02 Telephone Paulina, 1.2.840.4 [id number] 103 [id number] Univers 00:00:00 00:00:00 Efraín 68835.1.1 ity of 3.104.2.7 [place] .3.257766 Medica l .8 Branch 2022-10-28 2022-10-28 Telephone Michel-Brandy 1.2.840.9 [id number] Univers 00:00:00 00:00:00 s, Philomena 00814.1.1 i ty of 3.104.2.7 [place] .3.376261 Medica l .8 Branch 2022-10-27 2022-10-27 Telephone Michel-Brandy 1.2.840.1 [id number] Univers 00:00:00 00:00:00 s, Philomena 59319.1.1 i ty of 3.104.2.7 [place] .3.402360 Medica l .8 Branch 2022-10-22 2022-10-22 Outpatient R TEJ LUEVANOL [facility] [id number] Univers 09:45:00 10:24:22 ANAND-BARAK PHILOMENA ity of [facility] 2022-10-22 2022-10-22 Office Michel-Brandy 1.2.840.1 [id number] Univers 09:45:00 10:24:22 Visit s, Philomena 56544.1.1 i ty of 3.104.2.7 [place] .3.241927 Medica l .8 Branch 2022-10-22 2022-10-22 Orders Doctor 1.2.840.9 [id number] Univers 00:00:00 00:00:00 Only Unassigned, 95782.1.1 ity of [place] 3.104.2.7 [place] .3.833458 Medica l .8 Branch 2022-10-22 2022-10-22 Travel 1.2.840.1 1.2.282.936 9697 03730 Univers 00:00:00 00:00:00 42110.1.1 350.1.13.10 ity of 3.104.2.7 4.2.7.3.698 [place] .3.231042 084.8 Medica l .8 [place] 2022-10-19 2022-10-19 Patient Doctor 1.2.840.1 [id number] Univers 00:00:00 00:00:00 Secure Msg Unassigned, 85953.1.1 ity of [place] 3.104.2.7 [place] .3.634307 Medica l .8 Branch 2022-10-19 2022-10-19 Travel 1.2.840.1 1.2.431.720 9635 80705 Univers 00:00:00 00:00:00 83420.1.1 350.1.13.10 ity of 3.104.2.7 4.2.7.3.698 [place] .3.802877 084.8 Medica l .8 Branch 2022-10-18 2022-10-18 Anesthesia Clayton Thomas S 1.2.840.2 [id number] Univers 23:59:59 23:59:59 Event Ariana Yates 95632.1.1 ity of 3.104.2.7 [place] .3.721316 Medica l .8 [place] 2022-10-14 2022-10-14 Outpatient Joshua GALLARDO, [facility] [id number] [facility] 16:15:00 17:05:56 EFRAÍN ity [facility] 2022-10-14 2022-10-14 Office Paulina, 1.2.840.5 [id number] Univers 16:15:00 17:05:56 Visit Efraín 14988.1.1 ity of 3.104.2.7 [place] .3.500626 Medica l .8 [place] 2022-10-14 2022-10-14 Orders Doctor 1.2.840.4 [id number] Univers 00:00:00 00:00:00 Only Unassigned, 24675.1.1 ity of [place] 3.104.2.7 [place] .3.779318 Medica l .8 [place] 2022-10-01 2022-10-01 Outpatient R [facility] [id number] Univers 11:15:00 11:15:00 MICHEL-CANCINOJANETTE H[facility] 2022-09-27 2022-09-27 Travel 1.2.840.1 1.2.747.518 [id number] [id number] Univers 00:00:00 00:00:00 63507.1.1 350.1.13.10 ity of 3.104.2.7 4.2.7.3.698 [place] .3.674795 084.8 Medica l .8 [place] 2022-09-24 2022-09-24 Outpatient R MICHELWESJANETTEPHILOMENA RUST U [facility] [id number] Univers 11:15:00 11:15:00 MICHELBARAKJANETTEPHILOMENA [facility] 2022-09-17 2022-09-[address] [facility] [id number] [facility] 00[facility]00 [facility] 2022-09-17 2022-09-[address] [facility]ton[facility] [id number] 00:[facility] 00:00[facility]00 [facility] 2022-09-16 2022-09-16 Orders Doctor 1.2.840.1 [id number] Univers 00:00:00 00:00:00 Only Unassigned, 89421.1.1 ity of [place] 3.104.2.7 [facility]3.661148 [facility] Branch 2022-08-25 2022-08-25 Outpatient R DELMYJACKY SHEPPARD [facility] B [id number] Univers 11:00:00 11:00:00 AMOL JACKY ity [facility] 2022-07-12 2022-07-12 Telephone [place] [facility] [id number] [id number] 00:[facility] 00:00:00 [facility] 2022-07-12 2022-07-12 Telephone [place] [facility] [id number] [id number] 00:[facility] 00:00:00 [facility] 2022-06-09 2022-06-09 Documentat [facility], [facility] [id number] [id number] [facility] 00:00:[address] [facility] 2022-06-09 2022-06-09 Documentat Labmar[facility], [facility] [id number] [id number] [facility] 00:00:[address] [facility] 2022-03-03 2022-03-03 Documentat [facility] [id number] 00:[facility] 00:00:00 [facility] 2022-03-03 2022-03-03 Documentat [facility] [id number] 00:00[facility] 00:00:00 [facility] 2022-01-29 2022-01-29 Telephone Labmaria [facility], [facility] [id number] [facility] 00:00[facility]00 [facility] 2022-01-04 2022-01-04 Telephone Elizabeth RUST 1.2.840.114 [id number] Univers 00:00:00 00:00:00 Bee covarrubiasPEC 350.1.13.10 ity of IALTY 4.2.7.2.686 [facility] [id number] [address] DIABETES CLINIC 2021-12-25 2021-12-25 Telephone [facility] 1.2.840.[id number] [facility] 00:00:00 00:00:00 Evin Mortensen MULTISPEC 350.1.13.10 ity of IALTY 4.2.7.2.686 [facility] [id number] [address] DIABETES [facility] 2021-12-23 2021-12-23 [facility] [id number] 00:00[facility]00 00:00:00 [facility] 2021-12-18 2021-12-18 [facility] [id number] 00:00:00 00:00:00 [facility] 2021-12-04 2021-12-04 [facility]at [facility] [id number] 00:00:00 00:00:00 ion [facility] 2021-12-04 2021-12-04 [facility]phone [facility] [id number] 00:00:00 00:00:00 [facility] 2021-11-24 2021-11-24 [facility] [id number] Univers 09:00:00 09:00:00 EVIN moreno o f [facility] 2021-11-24 2021-11-24 Telephone [facility] 1.2.840.[id number] [facility] 00:00:00 00:00:00 Bee covarrubias MULTISPEC 350.1.13.10 ity of IALTY 4.2.7.2.686 [facility] [id number] [address] DIABETES CLINIC 2021-09-30 2021-09-30 Telephone [facility] 1.2.840.[id number] [facility] 00:00:00 00:00:00 Bee covarrubias MULTISPEC 350.1.13.10 ity of IALTY 4.2.7.2.686 [facility] [place] [id number] [address] DIABETES CLINIC 2021-09-08 2021-09-08 Telephone [facility] 1.2.840.114 [id number] Univers 00:00:00 00:00:00 Cleary A MULTISPEC 350.1.13.10 [place]2.[place] [id number] [address] DIABETES CLINIC 2021-08-26 2021-08-26 Outpatient R [facility] [id number] Univers 09:00:00 09:00:00 CLEARY ity o f [facility] 2021-08-24 2021-08-24 Telephone [facility] 1.2.840.114 [id number] Univers 00:00:00 00:00:00 Bee covarrubias MULTISPEC 350.1.13.10 ity of IALTY 4.2.7.2.686 [facility] [place] [id number] [address] DIABETES CLINIC 2021-07-14 2021-07-14 Telephone [facility] 1.2.840.114 [id number] Univers 00:00:00 00:00:00 Cleary A MULTISPEC 350.1.13.10 ity of IALTY 4.2.7.2.686 [facility] [id number] [address] DIABETES CLINIC 2021-07-07 2021-07-07 Outpatient R [facility] [id number] Univers 14:00:00 14:00:00 CLEARY ity o f [facility] 2021-06-24 2021-06-24 Telephone [facility] 1.2.840.114 [id number] Univers 00:00:00 00:00:00 Cleary A MULTISPEC 350.1.13.10 [place]2.[place] [id number] [address] DIABETES CLINIC 2021-05-26 2021-05-26 Outpatient R [facility] [id number] Univers 13:00:00 13:00:00 EVIN ity o eduardo [facility] 2021-05-19 2021-05-19 Outpatient R CHANNING [facility] [id number] Univers 10:00:00 10:00:00 EVIN ity o eduardo [facility] 2021-05-19 2021-05-19 Social Christian [facility] [id number] [facility] 00:00:00 00:00:00 Work [facility] 2020-12-23 2020-12-23 Outpatient R [facility] [id number] Univers 11:00:00 11:00:00 ity of [facility] 2020-12-23 2020-12-23 Outpatient ANDERSON, [facility] [id number] [facility] 00:00:00 00:00:00 BHAMIDIPATI 2020-12-23 2020-12-23 Outpatient EL [facility] [id number] [facility] 00:00:00 00:00:00 2020-12-23 2020-12-23 Outpatient EL [facility] [id number] [facility] 00:00:00 00:00:00 2020-11-18 2020-11-18 [facility] [id number] Univers 08:00:00 08:00:00 EVIN bhaktay o eduardo [facility] 2020-11-18 2020-11-18 Telephone Elizabeth RUST 1.2.840.114 [id number] Univers 00:00:00 00:00:00 Bee covarrubias [facility]PEC [facility].13.10 [facility] 4.2.7.2.686 [facility] [id number] [address] DIABETES CLINIC 2020-11-14 2020-11-[address] GinoDanya [id number] 00:00:00 00:00:00 [facility] 2020-11-14 2020-11-14 Social Christian [facility] [id number] [facility] 00:00:00 00:00:00 Work [facility] 2020-11-13 2020-11-13 Case [facility] 1.2.840.114 [id number] 00:00:00 00:00:00 Management Bee covarrubias MULTISPEC 350.1.13.10 IALTY 4.2.7.2.686 [place] [id number] [place] [address] DIABETES CLINIC 2020-11-13 2020-11-13 Case Kenji-[facility] 1.2.840.[id number] [facility] 00:00:00 00:00:00 Management Bee covarrubias N MULTISPEC 350.1.13.10 ity of IALTY 4.2.7.2.686 [facility] [id number] [address] DIABETES CLINIC 2020-11-06 2020-11-06 Outpatient R HEBER, [facility] [id number] Univers 08:30:00 08:30:00 DEE clark [facility] 2020-11-06 2020-11-06 Case Kenji-[facility] 1.2.840.114 [id number] 00:00:00 00:00:00 Management Bee covarrubias N MULTISPEC 350.1.13.10 IALTY 4.2.7.2.686 [place] [id number] [place] [address] DIABETES CLINIC 2020-11-06 2020-11-06 Case Kenji-[facility] 1.2.840.[id number] [facility] 00:00:00 00:00:00 Management Bee covarrubias N MULTISPEC 350.1.13.10 ity of IALTY 4.2.7.2.686 [facility] [id number] [address] DIABETES CLINIC 2020-11-04 2020-11-[address] GinoDanya [id number] 00:00:00 00:00:00 [facility] 2020-10-31 2020-10-[address] [facility] [id number] 00:00:00 00:00:00 [facility] 2020-10-22 2020-10-22 Documentat Juan [facility] [id number] 00:00:00 00:00:00 ion [facility] 2020-10-16 2020-10-16 Telephone Fariba [facility] [id number] 00:00:00 00:00:00 Ruthann Abigail [facility] 2020-10-16 2020-10-16 Orders Edu [facility] [id number] 00:00:00 00:00:00 Only [facility] 2020-10-14 2020-10-14 Telephone Edu [facility] [id number] 00:00:00 00:00:00 [facility] 2020-10-14 2020-10-14 [facility] [id number] 00:00:00 00:00:00 ion [facility] 2020-10-14 2020-10-14 Telephone Edu [facility] [id number] 00:00:00 00:00:00 [facility] 2020-10-12 2020-10-12 Documentat Suni [facility] [id number] 00:00:00 00:00:00 ion Laura Mortensen [facility] 2020-10-07 2020-10-07 Evaluation Anderson, Bhamidipati Bunny [facility] [id number] [facility] 09:54:41 10:24:41 Jordana Jungsuf [facility] 2020-10-07 2020-10-07 Evaluation Anderson Bhamidipati Bunny [facility] [id number] [facility] 09:53:43 10:23:43 Maday Rena [facility] 2020-10-07 2020-10-07 Orders EL Anderson, [facility] [id number] 09:53:01 10:08:01 [facility] 2020-10-07 2020-10-07 Outpatient [facility] [id number] [facility] 00:00:00 00:00:00 2020-10-07 2020-10-07 Outpatient EL [facility] [id number] [facility] 00:00:00 00:00:00 2020-10-07 2020-10-07 Outpatient SLEH [facility] [id number] [facility] 00:00:00 00:00:00 2020-10-07 2020-10-07 Telephone Demetris [facility] [id number] 00:00[facility]00 00:00:00 [facility] 2020-10-06 2020-10-06 Telephone Malinda [facility] [id number] 00:00:00 00:00:00 [facility] 2020-10-06 2020-10-06 Telephone Malinda [facility] [id number] 00:00:00 00:00:00 [facility] 2020-10-06 2020-10-06 Documentat Malinda [facility] [id number] 00:00:00 00:00:00 ion [facility] 2020-10-02 2020-10-02 Outpatient SLEH [facility] [id number] [facility] 00:00:00 00:00:00 2020-10-02 2020-10-02 Outpatient EL [facility] [id number] [facility] 00:00:00 00:00:00 2020-10-02 2020-10-02 Outpatient [facility] [id number] [facility] 00:00:00 00:00:00 2020-10-02 2020-10-02 Telephone Demetris [facility] [id number] [facility] 00[facility] 00[facility]00 [facility] 2020-10-02 2020-10-02 Telephone Balta [facility] [id number] [address] 00:00[facility]00 00:00:00 [facility] 2020-09-25 2020-09-25 [facility] [id number] [facility] 10:07:04 23:59:00 Encounter 1, [facility] 2020-09-25 2020-09-25 [facility] [id number] [facility] 10:06:56 10:06:56 Encounter 1, [facility] 2020-09-25 2020-09-25 [facility], [facility] [id number] 10:06:49 10:06:49 Encounter [facility] 2020-09-25 2020-09-25 [facility], [facility] [id number] 08:10:48 10:05:00 Encounter [facility] 2020-09-25 2020-09-25 [facility], [facility] [id number] 08:00:00 08:09:00 Encounter [facility] 2020-09-25 2020-09-25 Outpatient ANDERSON, [facility] [id number] [facility] 00:00:00 00:00:00 [facility] 2020-09-25 2020-09-25 Outpatient EL [facility] [id number] [facility] 00:00:00 00:00:00 2020-09-25 2020-09-25 Outpatient ANDERSON, [facility] [id number] [facility] 00:00:00 00:00:00 [facility] 2020-09-25 2020-09-25 Outpatient ANDERSON, [facility] [id number] [facility] 00:00:00 00:00:00 [facility] 2020-09-25 2020-09-25 Outpatient ANDERSON, [facility] [id number] [facility] 00:00:00 00:00:00 [facility] 2020-09-25 2020-09-25 Outpatient ANDERSON, [facility] [id number] [facility] 00:00:00 00:00:00 [facility] 2020-09-04 2020[facility] [id number] [facility] 10:06:00 23:59:00 Encounter Cleary Balbina GEORGES [id number] ity of HOSPITAL [id number] Cecilio as [phone] [place] [id number] [address] 2020-09-04 2020-09-04 Outpatient R [facility] ACO [id number] Univers 00:00:00 00:00:00 EVIN ity o f [facility] 2020-09-04 2020-09-04 Letter [facility] [id number] Univers 00:00:00 00:00:00 (Out) Cleary Balbina MULTISPEC [id number] ity [facility] [id number] [id number] [address] [facility] 2020-09-03 2020-09-03 Telephone [facility] [id number] [facility] St 00:00:00 00:00:00 [facility] 2020-09-03 2020-09-03 Telephone [employer] [id number] Univers 00:00:00 00:00:00 Bee covarrubias MULTISPEC [id number] ity of [place] [id number] [facility] [place] [id number] [address] [facility] 2020-09-03 2020-09-03 [facility] [id number] 00:00:00 00:00:00 Bee covarrubias MULTISPEC [id number] [place] [id number] [place] [phone] [place] [address] [facility] 2020-06-26 2020-06-26 Documentat [facility] [id number] [facility] 00:[facility] 00[facility]:00 ion [facility] 2020-06-26 2020-06-26 Abstract [facility] [id number] 00[facility] 00[facility]:00 [facility] 2020-06-23 2020-06-23 [facility] [id number] [facility] [address] 00:00:00 00:00:00 [facility] 2020-06-23 2020-06-23 [facility] [id number] [facility]00 ion [facility] 2020-06-17 2020-06-17 [facility] [id number] [facility] 00[facility]00 ion [facility] 2020-06-17 2020-06-17 [facility] [id number] [facility] [address] 00:00:00 00:00:00 [facility] 2020-06-17 2020-06-17 [facility] [id number] [facility] 00[facility]00 ion [facility] 2020-06-16 2020-06-16 [facility] [id number] [facility] [address] 00:00:00 00:00:00 [facility] 2020-06-16 2020-06-16 Telephone [facility] [id number] [facility] [address] 00:00:00 00:00:00 [facility] 2019-11-28 2019-11-28 Orders Doctor KELLY [id number] 00:00:00 00:00:00 Only Unassigned, GEORGES [id number] [place] [facility] [id number] Cecilio as [id number] [place] [id number] Branch Results Test Description Test Time Test Comments Results Result Comments Source BASIC METABOLIC PANEL (NA, K, CL, CO2, GLUCOSE, BUN, 2022-11 11:06:18 CREATININE, [place]) Test Item Value Reference Range Interpretation Comme nts NA (test code = 2702870582) 133 mmol/L 135-145 L K (test code = 9526153432) 5.4 mmol/L 3.5-5.0 H CL (test code = 5873892078) 93 mmol/L 98-108 L CO2 TOTAL (test code = 3279217044) 24 mmol/L 23-31 AGAP (test code = 4919644036) 16 2-16 BUN (test code = 5865643653) 59 mg/dL 7-23 H GLUCOSE (test code = 1182021556) 97 mg/dL 70-110 CREATININE (test code = 9.09 mg/dL 0.50-1.04 H 0252284311) CALCIUM (test code = 3702034382) 9.0 mg/dL 8.6-10.6 eGFR (test code = 5471188801) 4.9 mL/min/1.73m2 RACQUEL (test code = RACQUEL) Association of Glomerular Filtration Rate (GFR) and Staging of Kidney Disease* + +-------- + ------+| GFR (mL/min/1.73 m2) ?| With Kidney Damage ?| ?Without Kidney Damage+ +-- + +| ?>90 ?| ?Stage one ?| ? Normal ?+ +------- + -------+| ?60-89 ?| ?Stage two ?| ? Decreased GFR ? + +-------- + ------+| ?30-59 ?| ?Stage three ?| ? Stage three ? + +-------- + ------+| ?15-29 ?| ?Stage four ? | ? Stage four ?+ +------- + -------+| ?<15 (or dialysis) ? ?| ?Stage five ? | ? Stage five ?+ +------- + -------+ *Each stage assumes the associated GFR level has been in effect for at least three months. ?Stages 1 to 5, with or without kidney disease, indicate chronic kidney disease. Notes: Determination of stages one and two (with eGFR >59mL/min/1.73 m2) requires estimation of kidney damage for at least three months as defined by structural or functional abnormalities of the kidney, manifested by either:Pathological abnormalities or Markers of kidney damage (including abnormalities in the composition of the blood or urine or abnormalities in imaging tests). Lab Interpretation (test code = Abnormal 59506-3) [facility] Test Item Value Reference Range Interpretation Comments PHOSPHORUS (test code = 7000541267) 4.3 mg/dL 2.5-5.0 Lab Interpretation (test code = Normal 18642-8) [facility] 12[facility]:23 Test Item Value Reference Range Interpretation Comments MAGNESIUM (test code = 7589502574) 2.4 mg/dL 1.7-2.4 Lab Interpretation (test code = Normal 43167-9) [facility] (NA, K, CL, CO2, GLUCOSE, BUN, CREATININE, CA)2022-12-01 12:39:23 Test Item Value Reference Range Interpretation Comments NA (test code = 136 mmol/L 135-145 7626334651) K (test code = 4.6 mmol/L 3.5-5.0 0576603270) CL (test code = 98 mmol/L 98-108 9552263201) CO2 TOTAL (test code = 23 mmol/L 23-31 1686062020) AGAP (test code = 15 2-16 3829474626) BUN (test code = 41 mg/dL 7-23 H 5403547906) GLUCOSE (test code = 93 mg/dL 70-110 8380426216) CREATININE (test code = 8.11 mg/dL 0.50-1.04 H 6124518274) CALCIUM (test code = 9.3 mg/dL 8.6-10.6 7102928441) eGFR (test code = 5.6 mL/min/1.73m2 5509567238) RACQUEL (test code = RACQUEL) Association of Glomerular Filtration Rate (GFR) and Staging of Kidney Disease* + --+ --+ ------+| GFR (mL/min/1.73 m2) ?| With Kidney Damage ?| ?Without Kidney Damage+ --------+ --------+ +| ?>90 ?| ?Stage one ?| ? Normal ?+ ---+ ---+ -------+| ?60-89 ?| ?Stage two ?| ? Decreased GFR ? + --+ --+ ------+| ?30-59 ?| ?Stage three ?| ? Stage three ? + --+ --+ ------+| ?15-29 ?| ?Stage four ? | ? Stage four ?+ ---+ ---+ -------+| ?<15 (or dialysis) ? ?| ?Stage five ? | ? Stage five ?+ ---+ ---+ -------+ *Each stage assumes the associated GFR level has been in effect for at least three months. ?Stages 1 to 5, with or without kidney disease, indicate chronic kidney disease. Notes: Determination of stages one and two (with eGFR >59mL/min/1.73 m2) requires estimation of kidney damage for at least three months as defined by structural or functional abnormalities of the kidney, manifested by either:Pathological abnormalities or Markers of kidney damage (including abnormalities in the composition of the blood or urine or abnormalities in imaging tests). Lab Interpretation Abnormal (test code = 90223-5) [facility] 12[facility]:23 Test Item Value Reference Range Interpretation Comments PHOSPHORUS (test code = 8670231308) 4.3 mg/dL 2.5-5.0 Lab Interpretation (test code = Normal 12403-4) [facility] 12:39:23 Test Item Value Reference Range Interpretation Comments MAGNESIUM (test code = 5811292811) 2.4 mg/dL 1.7-2.4 Lab Interpretation (test code = Normal 91322-3) [facility] (NA, K, CL, CO2, GLUCOSE, BUN, CREATININE, CA)2022-12-01 12:39:23 Test Item Value Reference Range Interpretation Comments NA (test code = 136 mmol/L 135-145 7300234073) K (test code = 4.6 mmol/L 3.5-5.0 5623675192) CL (test code = 98 mmol/L 98-108 7755625220) CO2 TOTAL (test code = 23 mmol/L 23-31 8663478402) AGAP (test code = 15 2-16 0761004573) BUN (test code = 41 mg/dL 7-23 H 9616259530) GLUCOSE (test code = 93 mg/dL 70-110 1623501805) CREATININE (test code = 8.11 mg/dL 0.50-1.04 H 3574819498) CALCIUM (test code = 9.3 mg/dL 8.6-10.6 4905686410) eGFR (test code = 5.6 mL/min/1.73m2 5512204816) RACQUEL (test code = RACQUEL) Association of Glomerular Filtration Rate (GFR) and Staging of Kidney Disease* + --+ --+ ------+| GFR (mL/min/1.73 m2) ?| With Kidney Damage ?| ?Without Kidney Damage+ --------+ --------+ +| ?>90 ?| ?Stage one ?| ? Normal ?+ ---+ ---+ -------+| ?60-89 ?| ?Stage two ?| ? Decreased GFR ? + --+ --+ ------+| ?30-59 ?| ?Stage three ?| ? Stage three ? + --+ --+ ------+| ?15-29 ?| ?Stage four ? | ? Stage four ?+ ---+ ---+ -------+| ?<15 (or dialysis) ? ?| ?Stage five ? | ? Stage five ?+ ---+ ---+ -------+ *Each stage assumes the associated GFR level has been in effect for at least three months. ?Stages 1 to 5, with or without kidney disease, indicate chronic kidney disease. Notes: Determination of stages one and two (with eGFR >59mL/min/1.73 m2) requires estimation of kidney damage for at least three months as defined by structural or functional abnormalities of the kidney, manifested by either:Pathological abnormalities or Markers of kidney damage (including abnormalities in the composition of the blood or urine or abnormalities in imaging tests). Lab Interpretation Abnormal (test code = 00017-3) [facility] WITH [id number] 11:51:43 Test Item Value Reference Range Interpretation Comments WBC (test code = 9.35 See_Comment [Automated 3462-2) message] The sy stem which generated this result transmitted reference range : 4.30 - 11.10 10*3/?L. The reference range was not used to interpret this result as normal/abnormal . RBC (test code = 3.34 See_Comment L [Automated 991-3) message] The sy stem which generated this result transmitted reference range : 3.93 - 5.25 10*6/?L. The reference range was not used to interpret this result as normal/abnormal . HGB (test code = 10.4 g/dL 11.6-15.0 L 718-7) HCT (test code = 32.4 % 35.7-45.2 L 4544-3) MCV (test code = 97.0 fL 80.6-95.5 H 787-2) MCH (test code = 31.1 pg 25.9-32.8 785-6) MCHC (test code = 32.1 g/dL 31.6-35.1 786-4) RDW-SD (test code = 46.0 fL 39.0-49.9 45798-4) RDW-CV (test code = 12.9 % 12.0-15.5 788-0) PLT (test code = 230 See_Comment [Automated 777-3) message] The sy stem which generated this result transmitted reference range : 166 - 358 10*3/ ?L. The reference r taj was not used to interpret this result as normal/abnormal . MPV (test code = 9.8 fL 9.5-12.9 60269-4) NRBC/100 WBC (test 0.0 See_Comment [Automat ed code = 9275882877) message] The system which generated this result transmitted reference range : 0.0 - 10.0 /100 WBCs. The refer ence range was not u sed to interpret th is result as normal/abnormal . NRBC x10^3 (test code See_Comment [Auto mated = 8106403808) message] The s ystem which generated this result transmitted reference range : 10*3/?L. The reference range was not used to interpret this result as normal/abnormal . GRAN MAT (NEUT) % 68.8 % (test code = 770-8) IMM GRAN % (test code 0.20 % = 8435074876) LYMPH % (test code = 15.7 % 736-9) MONO % (test code = 12.3 % 5905-5) EOS % (test code = 2.7 % 713-8) BASO % (test code = 0.3 % 706-2) GRAN MAT x10^3(ANC) 6.43 10*3/uL 1.88-7.09 (test code = 5273460524) IMM GRAN x10^3 (test 0.00-0.06 code = 7600940059) LYMPH x10^3 (test code 1.47 10*3/uL 1.32-3.29 = 731-0) MONO x10^3 (test code 1.15 10*3/uL 0.33-0.92 H = 742-7) EOS x10^3 (test code = 0.25 10*3/uL 0.03-0.39 711-2) BASO x10^3 (test code 0.03 10*3/uL 0.01-0.07 = 704-7) Lab Interpretation Abnormal (test code = 92563-1) [facility] WITH [id number] 11:51:43 Test Item Value Reference Range Interpretation Comments WBC (test code = 9.35 See_Comment [Automated 6690-2) message] The sy stem which generated this result transmitted reference range : 4.30 - 11.10 10*3/?L. The reference range was not used to interpret this result as normal/abnormal . RBC (test code = 3.34 See_Comment L [Automated 789-8) message] The sy stem which generated this result transmitted reference range : 3.93 - 5.25 10*6/?L. The reference range was not used to interpret this result as normal/abnormal . HGB (test code = 10.4 g/dL 11.6-15.0 L 718-7) HCT (test code = 32.4 % 35.7-45.2 L 4544-3) MCV (test code = 97.0 fL 80.6-95.5 H 787-2) MCH (test code = 31.1 pg 25.9-32.8 785-6) MCHC (test code = 32.1 g/dL 31.6-35.1 786-4) RDW-SD (test code = 46.0 fL 39.0-49.9 42858-5) RDW-CV (test code = 12.9 % 12.0-15.5 788-0) PLT (test code = 230 See_Comment [Automated 337-3) message] The sy stem which generated this result transmitted reference range : 166 - 358 10*3/ ?L. The reference r taj was not used to interpret this result as normal/abnormal . MPV (test code = 9.8 fL 9.5-12.9 86579-5) NRBC/100 WBC (test 0.0 See_Comment [Automat ed code = 1127449870) message] The system which generated this result transmitted reference range : 0.0 - 10.0 /100 WBCs. The refer ence range was not u sed to interpret th is result as normal/abnormal . NRBC x10^3 (test code See_Comment [Auto mated = 2384718687) message] The s ystem which generated this result transmitted reference range : 10*3/?L. The reference range was not used to interpret this result as normal/abnormal . GRAN MAT (NEUT) % 68.8 % (test code = 770-8) IMM GRAN % (test code 0.20 % = 9716533205) LYMPH % (test code = 15.7 % 736-9) MONO % (test code = 12.3 % 5905-5) EOS % (test code = 2.7 % 713-8) BASO % (test code = 0.3 % 706-2) GRAN MAT x10^3(ANC) 6.43 10*3/uL 1.88-7.09 (test code = 5439433120) IMM GRAN x10^3 (test 0.00-0.06 code = 0940714856) LYMPH x10^3 (test code 1.47 10*3/uL 1.32-3.29 = 731-0) MONO x10^3 (test code 1.15 10*3/uL 0.33-0.92 H = 742-7) EOS x10^3 (test code = 0.25 10*3/uL 0.03-0.39 711-2) BASO x10^3 (test code 0.03 10*3/uL 0.01-0.07 = 704-7) Lab Interpretation Abnormal (test code = 52977-2) [facility] 2022-11-30 12:16:43 Test Item Value Reference Range Interpretation Comments HBCM 0.01 Semi-Quantitative (test code = 39884-9) RACQUEL (test code = Biotin has been reported RACQUEL) to cause a negative bias, interpret results relative to patient's use of biotin. [facility] B Core Antibody (HBcAb) IGM 2022-11-30 12:16:43 Test Item Value Reference Range Interpretation Comments HBCM 0.01 Semi-Quantitative (test code = 55563-8) RACQUEL (test code = Biotin has been reported RACQUEL) to cause a negative bias, interpret results relative to patient's use of biotin. [facility] B Core Antibody (HBcAb) IGM 2022-11-30 12:16:43 Test Item Value Reference Range Interpretation Comments HBCM 0.01 Semi-Quantitative (test code = 42958-7) RACQUEL (test code = Biotin has been reported RACQUEL) to cause a negative bias, interpret results relative to patient's use of biotin. [facility] B Surface Antigen (HBsAg)2022-11-30 12:11:42 Test Item Value Reference Range Interpretation Comments HBsAg Semi-Quantitative (test code = 0.06 Negative 5195-3) [facility] B Surface Antigen (HBsAg)2022-11-30 12:11:42 Test Item Value Reference Range Interpretation Comments HBsAg Semi-Quantitative (test code = 0.06 Negative 5195-3) [facility] B Surface Antigen (HBsAg)2022-11-30 12:11:42 Test Item Value Reference Range Interpretation Comments HBsAg Semi-Quantitative (test code = 0.06 Negative 5195-3) [facility] B Surface Antibody (HBsAb)2022-11-30 12:08:41 Test Item Value Reference Range Interpretation Comments HBsAB (test code = Positive 7995489853) HBsAb 692.00 mIU/mL Semi-Quantitative (test code = 1126613747) RACQUEL (test code = Interpretation: RACQUEL) ?Hepatitis B Surface Antibody ? Negative - Patient is considered to be not immune to infection with HBV. ? ? Positive - Anti-HBs detected at greater than or equal to 12 mIU/mL. ?Patient is considered to be immune to infection with HBV. ? [facility] B Surface Antibody (HBsAb)2022-11-30 12:08:41 Test Item Value Reference Range Interpretation Comments HBsAB (test code = Positive 4555337490) HBsAb 692.00 mIU/mL Semi-Quantitative (test code = 7887650908) RACQUEL (test code = Interpretation: RACQUEL) ?Hepatitis B Surface Antibody ? Negative - Patient is considered to be not immune to infection with HBV. ? ? Positive - Anti-HBs detected at greater than or equal to 12 mIU/mL. ?Patient is considered to be immune to infection with HBV. ? [facility] (HBsAb)2022-11-30 12:08:41 Test Item Value Reference Range Interpretation Comments HBsAB (test code = Positive 7605217359) HBsAb 692.00 mIU/mL Semi-Quantitative (test code = 4168785804) RACQUEL (test code = Interpretation: RACQUEL) ?Hepatitis B Surface Antibody ? Negative - Patient is considered to be not immune to infection with HBV. ? ? Positive - Anti-HBs detected at greater than or equal to 12 mIU/mL. ?Patient is considered to be immune to infection with HBV. ? [facility] METABOLIC PANEL (NA, K, CL, CO2, GLUCOSE, BUN, CREATININE, CA)2022-11-30 11:17:57 Test Item Value Reference Range Interpretation Comments NA (test code = 136 mmol/L 135-145 8903665677) K (test code = 4.7 mmol/L 3.5-5.0 Slight 7583854167) hemolysis CL (test code = 99 mmol/L 98-108 7168591787) CO2 TOTAL (test code 21 mmol/L 23-31 L = 8092514438) AGAP (test code = 16 2-16 6847911943) BUN (test code = 51 mg/dL 7-23 H Slight 6344507495) hemolysis GLUCOSE (test code = 98 mg/dL 70-110 2324014792) CREATININE (test code 7.68 mg/dL 0.50-1.04 H = 7915474066) CALCIUM (test code = 8.3 mg/dL 8.6-10.6 L 9919974227) eGFR (test code = 6.0 mL/min/1.73m2 3969450094) RACQUEL (test code = RACQUEL) Association of Glomerular Filtration Rate (GFR) and Staging of Kidney Disease* + -----+ --------+ +| GFR (mL/min/1.73 m2) ?| With Kidney Damage ?| ?Without Kidney Damage+ +------- +---- --+| ?>90 ?| ?Stage one ?| ? Normal ?+ ------+ ---------+--------- +| ?60-89 ?| ?Stage two ?| ? Decreased GFR ? + -----+ --------+ +| ?30-59 ?| ?Stage three ?| ? Stage three ? + -----+ --------+ +| ?15-29 ?| ?Stage four ? | ? Stage four ?+ ------+ ---------+--------- +| ?<15 (or dialysis) ? ?| ?Stage five ? | ? Stage five ?+ ------+ ---------+--------- + *Each stage assumes the associated GFR level has been in effect for at least three months. ?Stages 1 to 5, with or without kidney disease, indicate chronic kidney disease. Notes: Determination of stages one and two (with eGFR >59mL/min/1.73 m2) requires estimation of kidney damage for at least three months as defined by structural or functional abnormalities of the kidney, manifested by either:Pathological abnormalities or Markers of kidney damage (including abnormalities in the composition of the blood or urine or abnormalities in imaging tests). Lab Interpretation Abnormal (test code = 45682-6) [facility] METABOLIC PANEL (NA, K, CL, CO2, GLUCOSE, BUN, CREATININE, CA)2022-11-30 11:17:57 Test Item Value Reference Range Interpretation Comments NA (test code = 136 mmol/L 135-145 7961696660) K (test code = 4.7 mmol/L 3.5-5.0 Slight 1568128009) hemolysis CL (test code = 99 mmol/L 98-108 0857185760) CO2 TOTAL (test code 21 mmol/L 23-31 L = 6130125416) AGAP (test code = 16 2-16 9894346381) BUN (test code = 51 mg/dL 7-23 H Slight 6652568475) hemolysis GLUCOSE (test code = 98 mg/dL 70-110 0274363582) CREATININE (test code 7.68 mg/dL 0.50-1.04 H = 6385322872) CALCIUM (test code = 8.3 mg/dL 8.6-10.6 L 5737999408) eGFR (test code = 6.0 mL/min/1.73m2 9296762599) RACQUEL (test code = RACQUEL) Association of Glomerular Filtration Rate (GFR) and Staging of Kidney Disease* + -----+ --------+ +| GFR (mL/min/1.73 m2) ?| With Kidney Damage ?| ?Without Kidney Damage+ +------- +---- --+| ?>90 ?| ?Stage one ?| ? Normal ?+ ------+ ---------+--------- +| ?60-89 ?| ?Stage two ?| ? Decreased GFR ? + -----+ --------+ +| ?30-59 ?| ?Stage three ?| ? Stage three ? + -----+ --------+ +| ?15-29 ?| ?Stage four ? | ? Stage four ?+ ------+ ---------+--------- +| ?<15 (or dialysis) ? ?| ?Stage five ? | ? Stage five ?+ ------+ ---------+--------- + *Each stage assumes the associated GFR level has been in effect for at least three months. ?Stages 1 to 5, with or without kidney disease, indicate chronic kidney disease. Notes: Determination of stages one and two (with eGFR >59mL/min/1.73 m2) requires estimation of kidney damage for at least three months as defined by structural or functional abnormalities of the kidney, manifested by either:Pathological abnormalities or Markers of kidney damage (including abnormalities in the composition of the blood or urine or abnormalities in imaging tests). Lab Interpretation Abnormal (test code = 08101-4) [facility] (NA, K, CL, CO2, GLUCOSE, BUN, CREATININE, CA)2022-11-30 11:17:57 Test Item Value Reference Range Interpretation Comments NA (test code = 136 mmol/L 135-145 3082806306) K (test code = 4.7 mmol/L 3.5-5.0 Slight 6687766544) hemolysis CL (test code = 99 mmol/L 98-108 9273632377) CO2 TOTAL (test code 21 mmol/L 23-31 L = 2388757904) AGAP (test code = 16 2-16 6691630381) BUN (test code = 51 mg/dL 7-23 H Slight 8670727685) hemolysis GLUCOSE (test code = 98 mg/dL 70-110 4623811730) CREATININE (test code 7.68 mg/dL 0.50-1.04 H = 4065343337) CALCIUM (test code = 8.3 mg/dL 8.6-10.6 L 6331851878) eGFR (test code = 6.0 mL/min/1.73m2 2634071456) RACQUEL (test code = RACQUEL) Association of Glomerular Filtration Rate (GFR) and Staging of Kidney Disease* + -----+ --------+ +| GFR (mL/min/1.73 m2) ?| With Kidney Damage ?| ?Without Kidney Damage+ +------- +---- --+| ?>90 ?| ?Stage one ?| ? Normal ?+ ------+ ---------+--------- +| ?60-89 ?| ?Stage two ?| ? Decreased GFR ? + -----+ --------+ +| ?30-59 ?| ?Stage three ?| ? Stage three ? + -----+ --------+ +| ?15-29 ?| ?Stage four ? | ? Stage four ?+ ------+ ---------+--------- +| ?<15 (or dialysis) ? ?| ?Stage five ? | ? Stage five ?+ ------+ ---------+--------- + *Each stage assumes the associated GFR level has been in effect for at least three months. ?Stages 1 to 5, with or without kidney disease, indicate chronic kidney disease. Notes: Determination of stages one and two (with eGFR >59mL/min/1.73 m2) requires estimation of kidney damage for at least three months as defined by structural or functional abnormalities of the kidney, manifested by either:Pathological abnormalities or Markers of kidney damage (including abnormalities in the composition of the blood or urine or abnormalities in imaging tests). Lab Interpretation Abnormal (test code = 25368-6) [facility] WITH [id number] 11:06:33 Test Item Value Reference Range Interpretation Comments WBC (test code = 5.66 See_Comment [Automated 5985-2) message] The sy stem which generated this result transmitted reference range : 4.30 - 11.10 10*3/?L. The reference range was not used to interpret this result as normal/abnormal . RBC (test code = 3.68 See_Comment L [Automated 789-8) message] The sy stem which generated this result transmitted reference range : 3.93 - 5.25 10*6/?L. The reference range was not used to interpret this result as normal/abnormal . HGB (test code = 11.5 g/dL 11.6-15.0 L 718-7) HCT (test code = 34.9 % 35.7-45.2 L 4544-3) MCV (test code = 94.8 fL 80.6-95.5 787-2) MCH (test code = 31.3 pg 25.9-32.8 785-6) MCHC (test code = 33.0 g/dL 31.6-35.1 786-4) RDW-SD (test code = 44.8 fL 39.0-49.9 12652-0) RDW-CV (test code = 12.9 % 12.0-15.5 788-0) PLT (test code = 249 See_Comment [Automated 777-3) message] The sy stem which generated this result transmitted reference range : 166 - 358 10*3/ ?L. The reference r taj was not used to interpret this result as normal/abnormal . MPV (test code = 9.8 fL 9.5-12.9 12070-9) NRBC/100 WBC (test 0.0 See_Comment [Automat ed code = 3716799685) message] The system which generated this result transmitted reference range : 0.0 - 10.0 /100 WBCs. The refer ence range was not u sed to interpret th is result as normal/abnormal . NRBC x10^3 (test code See_Comment [Auto mated = 4122745303) message] The s ystem which generated this result transmitted reference range : 10*3/?L. The reference range was not used to interpret this result as normal/abnormal . GRAN MAT (NEUT) % 48.8 % (test code = 770-8) IMM GRAN % (test code 0.40 % = 3677705396) LYMPH % (test code = 31.3 % 736-9) MONO % (test code = 12.4 % 5905-5) EOS % (test code = 6.2 % 713-8) BASO % (test code = 0.9 % 706-2) GRAN MAT x10^3(ANC) 2.77 10*3/uL 1.88-7.09 (test code = 2084806650) IMM GRAN x10^3 (test 0.00-0.06 code = 7382779629) LYMPH x10^3 (test code 1.77 10*3/uL 1.32-3.29 = 731-0) MONO x10^3 (test code 0.70 10*3/uL 0.33-0.92 = 742-7) EOS x10^3 (test code = 0.35 10*3/uL 0.03-0.39 711-2) BASO x10^3 (test code 0.05 10*3/uL 0.01-0.07 = 704-7) Lab Interpretation Abnormal (test code = 13728-2) [facility] WITH [id number] 11:06:33 Test Item Value Reference Range Interpretation Comments WBC (test code = 5.66 See_Comment [Automated 6690-2) message] The sy stem which generated this result transmitted reference range : 4.30 - 11.10 10*3/?L. The reference range was not used to interpret this result as normal/abnormal . RBC (test code = 3.68 See_Comment L [Automated 789-8) message] The sy stem which generated this result transmitted reference range : 3.93 - 5.25 10*6/?L. The reference range was not used to interpret this result as normal/abnormal . HGB (test code = 11.5 g/dL 11.6-15.0 L 718-7) HCT (test code = 34.9 % 35.7-45.2 L 4544-3) MCV (test code = 94.8 fL 80.6-95.5 787-2) MCH (test code = 31.3 pg 25.9-32.8 785-6) MCHC (test code = 33.0 g/dL 31.6-35.1 786-4) RDW-SD (test code = 44.8 fL 39.0-49.9 15889-3) RDW-CV (test code = 12.9 % 12.0-15.5 788-0) PLT (test code = 249 See_Comment [Automated 777-3) message] The sy stem which generated this result transmitted reference range : 166 - 358 10*3/ ?L. The reference r taj was not used to interpret this result as normal/abnormal . MPV (test code = 9.8 fL 9.5-12.9 29835-0) NRBC/100 WBC (test 0.0 See_Comment [Automat ed code = 0959221925) message] The system which generated this result transmitted reference range : 0.0 - 10.0 /100 WBCs. The refer ence range was not u sed to interpret th is result as normal/abnormal . NRBC x10^3 (test code See_Comment [Auto mated = [id number]) message] The s ystem which generated this result transmitted reference range : 10*3/?L. The reference range was not used to interpret this result as normal/abnormal . GRAN MAT (NEUT) % 48.8 % (test code = 770-8) IMM GRAN % (test code 0.40 % = 5369046248) LYMPH % (test code = 31.3 % 736-9) MONO % (test code = 12.4 % 5905-5) EOS % (test code = 6.2 % 713-8) BASO % (test code = 0.9 % 706-2) GRAN MAT x10^3(ANC) 2.77 10*3/uL 1.88-7.09 (test code = 7956643874) IMM GRAN x10^3 (test 0.00-0.06 code = 0728638410) LYMPH x10^3 (test code 1.77 10*3/uL 1.32-3.29 = 731-0) MONO x10^3 (test code 0.70 10*3/uL 0.33-0.92 = 742-7) EOS x10^3 (test code = 0.35 10*3/uL 0.03-0.39 711-2) BASO x10^3 (test code 0.05 10*3/uL 0.01-0.07 = 704-7) Lab Interpretation Abnormal (test code = 61992-1) [facility] WITH [id number] 11:06:33 Test Item Value Reference Range Interpretation Comments WBC (test code = 5.66 See_Comment [Automated 6690-2) message] The sy stem which generated this result transmitted reference range : 4.30 - 11.10 10*3/?L. The reference range was not used to interpret this result as normal/abnormal . RBC (test code = 3.68 See_Comment L [Automated 789-8) message] The sy stem which generated this result transmitted reference range : 3.93 - 5.25 10*6/?L. The reference range was not used to interpret this result as normal/abnormal . HGB (test code = 11.5 g/dL 11.6-15.0 L 718-7) HCT (test code = 34.9 % 35.7-45.2 L 4544-3) MCV (test code = 94.8 fL 80.6-95.5 787-2) MCH (test code = 31.3 pg 25.9-32.8 785-6) MCHC (test code = 33.0 g/dL 31.6-35.1 786-4) RDW-SD (test code = 44.8 fL 39.0-49.9 96831-5) RDW-CV (test code = 12.9 % 12.0-15.5 788-0) PLT (test code = 249 See_Comment [Automated 777-3) message] The sy stem which generated this result transmitted reference range : 166 - 358 10*3/ ?L. The reference r taj was not used to interpret this result as normal/abnormal . MPV (test code = 9.8 fL 9.5-12.9 79760-8) NRBC/100 WBC (test 0.0 See_Comment [Automat ed code = 6081271882) message] The system which generated this result transmitted reference range : 0.0 - 10.0 /100 WBCs. The refer ence range was not u sed to interpret th is result as normal/abnormal . NRBC x10^3 (test code See_Comment [Auto mated = 6722329095) message] The s ystem which generated this result transmitted reference range : 10*3/?L. The reference range was not used to interpret this result as normal/abnormal . GRAN MAT (NEUT) % 48.8 % (test code = 770-8) IMM GRAN % (test code 0.40 % = 6078719078) LYMPH % (test code = 31.3 % 736-9) MONO % (test code = 12.4 % 5905-5) EOS % (test code = 6.2 % 713-8) BASO % (test code = 0.9 % 706-2) GRAN MAT x10^3(ANC) 2.77 10*3/uL 1.88-7.09 (test code = 8246338347) IMM GRAN x10^3 (test 0.00-0.06 code = 0960361974) LYMPH x10^3 (test code 1.77 10*3/uL 1.32-3.29 = 731-0) MONO x10^3 (test code 0.70 10*3/uL 0.33-0.92 = 742-7) EOS x10^3 (test code = 0.35 10*3/uL 0.03-0.39 711-2) BASO x10^3 (test code 0.05 10*3/uL 0.01-0.07 = 704-7) Lab Interpretation Abnormal (test code = 99032-6) [facility] 02:31:00 Test Item Value Reference Range Interpretation Comments PH (test code = 7.41 7.32-7.42 6436708743) PCO2 YUSEF (test code = 34 See_Comment L [Auto mated message] 5145925481) The system [employer] generated this result transmit liya reference range : 41 - 51 mmHg. The reference range was not used to interpret this result as normal/abnormal . PO2 YUSEF (test code = 83 See_Comment HH [Autom ated message] 8148042527) The system [employer] generated this result transmit liya reference range : 25 - 40 mmHg. The reference range was not used to interpret this result as normal/abnormal . HCO3 YUSEF (test code = 21 See_Comment L [Auto mated message] 7485450746) The system [employer] generated this result transmit liya reference range : 24 - 28 mEq/L. The reference range was not used to interpret this result as normal/abnormal . AC VBE(BEAKER) (test -3.1 mEq/L code = 1938495844) THB YUSEF (test code = 12.6 g/dL 12.0-16.0 1911753539) %O2HB YUSEF (test code = 94.4 % 52.0-63.0 H 8048774477) %COHB YUSEF (test code = 0.9 % 0.0-1.5 4622745523) %METHB YUSEF (test code = 0.2 % 0.4-1.5 L 1067660748) VOL%O2 YUSEF (test code = 16.8 % 6.0-12.0 H QUES 1883436202) NA (test code = 138 mmol/L 135-145 3373149075) K+ (test code = 4.3 mmol/L 3.5-5.0 6687895582) AC CA IONZ (test code = 4.80 mg/dL 4.50-5.30 3645779428) GLUCOSE (test code = 78 mg/dL 70-110 9372549450) Lab Interpretation Abnormal (test code = 27414-2) [facility] 02:31:00 Test Item Value Reference Range Interpretation Comments PH (test code = 7.41 7.32-7.42 9903028909) PCO2 YUSEF (test code = 34 See_Comment L [Auto mated message] 7075234368) The system [employer] generated this result transmit liya reference range : 41 - 51 mmHg. The reference range was not used to interpret this result as normal/abnormal . PO2 YUSEF (test code = 83 See_Comment HH [Autom ated message] 7379545741) The system [employer] generated this result transmit liya reference range : 25 - 40 mmHg. The reference range was not used to interpret this result as normal/abnormal . HCO3 YUSEF (test code = 21 See_Comment L [Auto mated message] 2724395610) The system [employer] generated this result transmit liya reference range : 24 - 28 mEq/L. The reference range was not used to interpret this result as normal/abnormal . AC VBE(BEAKER) (test -3.1 mEq/L code = 0892543930) THB YUSEF (test code = 12.6 g/dL 12.0-16.0 0813774630) %O2HB YUSEF (test code = 94.4 % 52.0-63.0 H 9398182794) %COHB YUSEF (test code = 0.9 % 0.0-1.5 1236337527) %METHB YUSEF (test code = 0.2 % 0.4-1.5 L 5511608525) VOL%O2 YUSEF (test code = 16.8 % 6.0-12.0 H QUES 5795426987) NA (test code = 138 mmol/L 135-145 1664578791) K+ (test code = 4.3 mmol/L 3.5-5.0 9439170213) AC CA IONZ (test code = 4.80 mg/dL 4.50-5.30 7897555787) GLUCOSE (test code = 78 mg/dL 70-110 6755458203) Lab Interpretation Abnormal (test code = 79451-7) [facility] 02:31:00 Test Item Value Reference Range Interpretation Comments PH (test code = 7.41 7.32-7.42 7773153541) PCO2 YUSEF (test code = 34 See_Comment L [Auto mated message] 4510144771) The system [employer] generated this result transmit liya reference range : 41 - 51 mmHg. The reference range was not used to interpret this result as normal/abnormal . PO2 YUSEF (test code = 83 See_Comment HH [Autom ated message] 8610376681) The system [employer] generated this result transmit liya reference range : 25 - 40 mmHg. The reference range was not used to interpret this result as normal/abnormal . HCO3 YUSEF (test code = 21 See_Comment L [Auto mated message] 4326597380) The system [employer] generated this result transmit liya reference range : 24 - 28 mEq/L. The reference range was not used to interpret this result as normal/abnormal . AC VBE(BEAKER) (test -3.1 mEq/L code = 2785200449) THB YUSEF (test code = 12.6 g/dL 12.0-16.0 7266524096) %O2HB YUSEF (test code = 94.4 % 52.0-63.0 H 6430512108) %COHB YUSEF (test code = 0.9 % 0.0-1.5 8534920006) %METHB YUSEF (test code = 0.2 % 0.4-1.5 L 5566739617) VOL%O2 YUSEF (test code = 16.8 % 6.0-12.0 H QUES 0565032948) NA (test code = 138 mmol/L 135-145 0878116473) K+ (test code = 4.3 mmol/L 3.5-5.0 8291764628) AC CA IONZ (test code = 4.80 mg/dL 4.50-5.30 8159233606) GLUCOSE (test code = 78 mg/dL 70-110 2959554599) Lab Interpretation Abnormal (test code = 31427-6) [facility] METABOLIC PANEL (NA, K, CL, CO2, GLUCOSE, BUN, CREATININE, CA)2022-11-29 11:41:08 Test Item Value Reference Range Interpretation Comments NA (test code = 136 mmol/L 135-145 9777548630) K (test code = 4.6 mmol/L 3.5-5.0 3982793591) CL (test code = 94 mmol/L 98-108 L 5917653954) CO2 TOTAL (test code = 26 mmol/L 23-31 2553746364) AGAP (test code = 16 2-16 3007886712) BUN (test code = 46 mg/dL 7-23 H 4568937579) GLUCOSE (test code = 92 mg/dL 70-110 6034365672) CREATININE (test code = 7.17 mg/dL 0.50-1.04 H 1441251832) CALCIUM (test code = 10.0 mg/dL 8.6-10.6 4549813783) eGFR (test code = 6.5 mL/min/1.73m2 9052524603) RACQUEL (test code = RACQUEL) Association of Glomerular Filtration Rate (GFR) and Staging of Kidney Disease* + --+ --+ ------+| GFR (mL/min/1.73 m2) ?| With Kidney Damage ?| ?Without Kidney Damage+ --------+ --------+ +| ?>90 ?| ?Stage one ?| ? Normal ?+ ---+ ---+ -------+| ?60-89 ?| ?Stage two ?| ? Decreased GFR ? + --+ --+ ------+| ?30-59 ?| ?Stage three ?| ? Stage three ? + --+ --+ ------+| ?15-29 ?| ?Stage four ? | ? Stage four ?+ ---+ ---+ -------+| ?<15 (or dialysis) ? ?| ?Stage five ? | ? Stage five ?+ ---+ ---+ -------+ *Each stage assumes the associated GFR level has been in effect for at least three months. ?Stages 1 to 5, with or without kidney disease, indicate chronic kidney disease. Notes: Determination of stages one and two (with eGFR >59mL/min/1.73 m2) requires estimation of kidney damage for at least three months as defined by structural or functional abnormalities of the kidney, manifested by either:Pathological abnormalities or Markers of kidney damage (including abnormalities in the composition of the blood or urine or abnormalities in imaging tests). Lab Interpretation Abnormal (test code = 64291-5) [facility] METABOLIC PANEL (NA, K, CL, CO2, GLUCOSE, BUN, CREATININE, CA)2022-11-29 11:41:08 Test Item Value Reference Range Interpretation Comments NA (test code = 136 mmol/L 135-145 1438294028) K (test code = 4.6 mmol/L 3.5-5.0 3208490532) CL (test code = 94 mmol/L 98-108 L 2889165640) CO2 TOTAL (test code = 26 mmol/L 23-31 6450184440) AGAP (test code = 16 2-16 4583914879) BUN (test code = 46 mg/dL 7-23 H 0061080708) GLUCOSE (test code = 92 mg/dL 70-110 6815310958) CREATININE (test code = 7.17 mg/dL 0.50-1.04 H 9516597909) CALCIUM (test code = 10.0 mg/dL 8.6-10.6 0966052282) eGFR (test code = 6.5 mL/min/1.73m2 2697920251) RACQUEL (test code = RACQUEL) Association of Glomerular Filtration Rate (GFR) and Staging of Kidney Disease* + --+ --+ ------+| GFR (mL/min/1.73 m2) ?| With Kidney Damage ?| ?Without Kidney Damage+ --------+ --------+ +| ?>90 ?| ?Stage one ?| ? Normal ?+ ---+ ---+ -------+| ?60-89 ?| ?Stage two ?| ? Decreased GFR ? + --+ --+ ------+| ?30-59 ?| ?Stage three ?| ? Stage three ? + --+ --+ ------+| ?15-29 ?| ?Stage four ? | ? Stage four ?+ ---+ ---+ -------+| ?<15 (or dialysis) ? ?| ?Stage five ? | ? Stage five ?+ ---+ ---+ -------+ *Each stage assumes the associated GFR level has been in effect for at least three months. ?Stages 1 to 5, with or without kidney disease, indicate chronic kidney disease. Notes: Determination of stages one and two (with eGFR >59mL/min/1.73 m2) requires estimation of kidney damage for at least three months as defined by structural or functional abnormalities of the kidney, manifested by either:Pathological abnormalities or Markers of kidney damage (including abnormalities in the composition of the blood or urine or abnormalities in imaging tests). Lab Interpretation Abnormal (test code = 22839-1) [facility]26 Test Item Value Reference Range Interpretation Comments PHOSPHORUS (test code = 8947755547) 6.1 mg/dL 2.5-5.0 H Lab Interpretation (test code = Abnormal 32986-8) [facility] 11:16:26 Test Item Value Reference Range Interpretation Comments MAGNESIUM (test code = 3873998223) 2.5 mg/dL 1.7-2.4 H Lab Interpretation (test code = Abnormal 45116-0) [facility] 11:16:26 Test Item Value Reference Range Interpretation Comments MAGNESIUM (test code = 7278937603) 2.5 mg/dL 1.7-2.4 H Lab Interpretation (test code = Abnormal 79948-0) [facility] 11:16:26 Test Item Value Reference Range Interpretation Comments PHOSPHORUS (test code = 2288281739) 6.1 mg/dL 2.5-5.0 H Lab Interpretation (test code = Abnormal 12309-8) [facility] 11:16:26 Test Item Value Reference Range Interpretation Comments MAGNESIUM (test code = 8585377236) 2.5 mg/dL 1.7-2.4 H Lab Interpretation (test code = Abnormal 76786-7) [facility] 11:16:26 Test Item Value Reference Range Interpretation Comments PHOSPHORUS (test code = 8026212808) 6.1 mg/dL 2.5-5.0 H Lab Interpretation (test code = Abnormal 36784-4) [facility] WITH [id number] 10:46:46 Test Item Value Reference Range Interpretation Comments WBC (test code = 6.15 See_Comment [Automated 6690-2) message] The sy stem which generated this result transmitted reference range : 4.30 - 11.10 10*3/?L. The reference range was not used to interpret this result as normal/abnormal . RBC (test code = 3.78 See_Comment L [Automated 819-8) message] The sy stem which generated this result transmitted reference range : 3.93 - 5.25 10*6/?L. The reference range was not used to interpret this result as normal/abnormal . HGB (test code = 11.8 g/dL 11.6-15.0 718-7) HCT (test code = 35.6 % 35.7-45.2 L 4544-3) MCV (test code = 94.2 fL 80.6-95.5 787-2) MCH (test code = 31.2 pg 25.9-32.8 785-6) MCHC (test code = 33.1 g/dL 31.6-35.1 786-4) RDW-SD (test code = 43.8 fL 39.0-49.9 63774-6) RDW-CV (test code = 12.7 % 12.0-15.5 788-0) PLT (test code = 269 See_Comment [Automated 777-3) message] The sy stem which generated this result transmitted reference range : 166 - 358 10*3/ ?L. The reference r taj was not used to interpret this result as normal/abnormal . MPV (test code = 9.5 fL 9.5-12.9 97252-7) NRBC/100 WBC (test 0.0 See_Comment [Automat ed code = 4424171269) message] The system which generated this result transmitted reference range : 0.0 - 10.0 /100 WBCs. The refer ence range was not u sed to interpret th is result as normal/abnormal . NRBC x10^3 (test code See_Comment [Auto mated = 5481316766) message] The s ystem which generated this result transmitted reference range : 10*3/?L. The reference range was not used to interpret this result as normal/abnormal . GRAN MAT (NEUT) % 52.8 % (test code = 770-8) IMM GRAN % (test code 0.20 % = 4677226058) LYMPH % (test code = 28.8 % 736-9) MONO % (test code = 11.1 % 5905-5) EOS % (test code = 6.3 % 713-8) BASO % (test code = 0.8 % 706-2) GRAN MAT x10^3(ANC) 3.25 10*3/uL 1.88-7.09 (test code = 5405940200) IMM GRAN x10^3 (test 0.00-0.06 code = 7349748763) LYMPH x10^3 (test code 1.77 10*3/uL 1.32-3.29 = 731-0) MONO x10^3 (test code 0.68 10*3/uL 0.33-0.92 = 742-7) EOS x10^3 (test code = 0.39 10*3/uL 0.03-0.39 711-2) BASO x10^3 (test code 0.05 10*3/uL 0.01-0.07 = 704-7) Lab Interpretation Abnormal (test code = 33189-4) [facility] WITH [id number] 10:46:46 Test Item Value Reference Range Interpretation Comments WBC (test code = 6.15 See_Comment [Automated 6690-2) message] The sy stem which generated this result transmitted reference range : 4.30 - 11.10 10*3/?L. The reference range was not used to interpret this result as normal/abnormal . RBC (test code = 3.78 See_Comment L [Automated 789-8) message] The sy stem which generated this result transmitted reference range : 3.93 - 5.25 10*6/?L. The reference range was not used to interpret this result as normal/abnormal . HGB (test code = 11.8 g/dL 11.6-15.0 718-7) HCT (test code = 35.6 % 35.7-45.2 L 4544-3) MCV (test code = 94.2 fL 80.6-95.5 787-2) MCH (test code = 31.2 pg 25.9-32.8 785-6) MCHC (test code = 33.1 g/dL 31.6-35.1 786-4) RDW-SD (test code = 43.8 fL 39.0-49.9 42771-7) RDW-CV (test code = 12.7 % 12.0-15.5 788-0) PLT (test code = 269 See_Comment [Automated 777-3) message] The sy stem which generated this result transmitted reference range : 166 - 358 10*3/ ?L. The reference r taj was not used to interpret this result as normal/abnormal . MPV (test code = 9.5 fL 9.5-12.9 41122-8) NRBC/100 WBC (test 0.0 See_Comment [Automat ed code = 2777208339) message] The system which generated this result transmitted reference range : 0.0 - 10.0 /100 WBCs. The refer ence range was not u sed to interpret th is result as normal/abnormal . NRBC x10^3 (test code See_Comment [Auto mated = 7710836072) message] The s ystem which generated this result transmitted reference range : 10*3/?L. The reference range was not used to interpret this result as normal/abnormal . GRAN MAT (NEUT) % 52.8 % (test code = 770-8) IMM GRAN % (test code 0.20 % = 4519888748) LYMPH % (test code = 28.8 % 736-9) MONO % (test code = 11.1 % 5905-5) EOS % (test code = 6.3 % 713-8) BASO % (test code = 0.8 % 706-2) GRAN MAT x10^3(ANC) 3.25 10*3/uL 1.88-7.09 (test code = 5696413878) IMM GRAN x10^3 (test 0.00-0.06 code = 4427483739) LYMPH x10^3 (test code 1.77 10*3/uL 1.32-3.29 = 731-0) MONO x10^3 (test code 0.68 10*3/uL 0.33-0.92 = 742-7) EOS x10^3 (test code = 0.39 10*3/uL 0.03-0.39 711-2) BASO x10^3 (test code 0.05 10*3/uL 0.01-0.07 = 704-7) Lab Interpretation Abnormal (test code = 14430-7) [facility]08 Test Item Value Reference Range Interpretation Comments PHOSPHORUS (test code = 1729814367) 6.2 mg/dL 2.5-5.0 H Lab Interpretation (test code = Abnormal 64313-1) [facility] 10:32:08 Test Item Value Reference Range Interpretation Comments MAGNESIUM (test code = 4405453177) 2.1 mg/dL 1.7-2.4 Lab Interpretation (test code = Normal 89856-6) [facility] (NA, K, CL, CO2, GLUCOSE, BUN, CREATININE, CA)2022-11-27 10:32:08 Test Item Value Reference Range Interpretation Comments NA (test code = 134 mmol/L 135-145 L 2485778105) K (test code = 4.3 mmol/L 3.5-5.0 3422242574) CL (test code = 97 mmol/L 98-108 L 9136358082) CO2 TOTAL (test code = 24 mmol/L 23-31 0591806420) AGAP (test code = 13 2-16 6505252940) BUN (test code = 48 mg/dL 7-23 H 8969678855) GLUCOSE (test code = 94 mg/dL 70-110 7313060861) CREATININE (test code = 6.72 mg/dL 0.50-1.04 H 4244508214) CALCIUM (test code = 9.6 mg/dL 8.6-10.6 5816097013) eGFR (test code = 7.0 mL/min/1.73m2 3239954305) RACQUEL (test code = RACQUEL) Association of Glomerular Filtration Rate (GFR) and Staging of Kidney Disease* + --+ --+ ------+| GFR (mL/min/1.73 m2) ?| With Kidney Damage ?| ?Without Kidney Damage+ --------+ --------+ +| ?>90 ?| ?Stage one ?| ? Normal ?+ ---+ ---+ -------+| ?60-89 ?| ?Stage two ?| ? Decreased GFR ? + --+ --+ ------+| ?30-59 ?| ?Stage three ?| ? Stage three ? + --+ --+ ------+| ?15-29 ?| ?Stage four ? | ? Stage four ?+ ---+ ---+ -------+| ?<15 (or dialysis) ? ?| ?Stage five ? | ? Stage five ?+ ---+ ---+ -------+ *Each stage assumes the associated GFR level has been in effect for at least three months. ?Stages 1 to 5, with or without kidney disease, indicate chronic kidney disease. Notes: Determination of stages one and two (with eGFR >59mL/min/1.73 m2) requires estimation of kidney damage for at least three months as defined by structural or functional abnormalities of the kidney, manifested by either:Pathological abnormalities or Markers of kidney damage (including abnormalities in the composition of the blood or urine or abnormalities in imaging tests). Lab Interpretation Abnormal (test code = 15536-6) [facility]:08 Test Item Value Reference Range Interpretation Comments PHOSPHORUS (test code = 7301739840) 6.2 mg/dL 2.5-5.0 H Lab Interpretation (test code = Abnormal 03958-8) [facility] 10:32:08 Test Item Value Reference Range Interpretation Comments MAGNESIUM (test code = 2812767950) 2.1 mg/dL 1.7-2.4 Lab Interpretation (test code = Normal 55273-7) [facility] (NA, K, CL, CO2, GLUCOSE, BUN, CREATININE, CA)2022-11-27 10:32:08 Test Item Value Reference Range Interpretation Comments NA (test code = 134 mmol/L 135-145 L 6703485268) K (test code = 4.3 mmol/L 3.5-5.0 0190483001) CL (test code = 97 mmol/L 98-108 L 9892710482) CO2 TOTAL (test code = 24 mmol/L 23-31 1321899902) AGAP (test code = 13 2-16 6475811090) BUN (test code = 48 mg/dL 7-23 H 2590881929) GLUCOSE (test code = 94 mg/dL 70-110 7491739776) CREATININE (test code = 6.72 mg/dL 0.50-1.04 H 5569707353) CALCIUM (test code = 9.6 mg/dL 8.6-10.6 2989333871) eGFR (test code = 7.0 mL/min/1.73m2 7994543140) RACQUEL (test code = RACQUEL) Association of Glomerular Filtration Rate (GFR) and Staging of Kidney Disease* + --+ --+ ------+| GFR (mL/min/1.73 m2) ?| With Kidney Damage ?| ?Without Kidney Damage+ --------+ --------+ +| ?>90 ?| ?Stage one ?| ? Normal ?+ ---+ ---+ -------+| ?60-89 ?| ?Stage two ?| ? Decreased GFR ? + --+ --+ ------+| ?30-59 ?| ?Stage three ?| ? Stage three ? + --+ --+ ------+| ?15-29 ?| ?Stage four ? | ? Stage four ?+ ---+ ---+ -------+| ?<15 (or dialysis) ? ?| ?Stage five ? | ? Stage five ?+ ---+ ---+ -------+ *Each stage assumes the associated GFR level has been in effect for at least three months. ?Stages 1 to 5, with or without kidney disease, indicate chronic kidney disease. Notes: Determination of stages one and two (with eGFR >59mL/min/1.73 m2) requires estimation of kidney damage for at least three months as defined by structural or functional abnormalities of the kidney, manifested by either:Pathological abnormalities or Markers of kidney damage (including abnormalities in the composition of the blood or urine or abnormalities in imaging tests). Lab Interpretation Abnormal (test code = 81417-8) [facility] WITH [id number] 09:57:03 Test Item Value Reference Range Interpretation Comments WBC (test code = 5.58 See_Comment [Automated 8814-2) message] The sy stem which generated this result transmitted reference range : 4.30 - 11.10 10*3/?L. The reference range was not used to interpret this result as normal/abnormal . RBC (test code = 3.61 See_Comment L [Automated 919-8) message] The sy stem which generated this result transmitted reference range : 3.93 - 5.25 10*6/?L. The reference range was not used to interpret this result as normal/abnormal . HGB (test code = 11.3 g/dL 11.6-15.0 L 718-7) HCT (test code = 33.9 % 35.7-45.2 L 4544-3) MCV (test code = 93.9 fL 80.6-95.5 787-2) MCH (test code = 31.3 pg 25.9-32.8 785-6) MCHC (test code = 33.3 g/dL 31.6-35.1 786-4) RDW-SD (test code = 43.4 fL 39.0-49.9 28831-9) RDW-CV (test code = 12.5 % 12.0-15.5 788-0) PLT (test code = 282 See_Comment [Automated 777-3) message] The sy stem which generated this result transmitted reference range : 166 - 358 10*3/ ?L. The reference r taj was not used to interpret this result as normal/abnormal . MPV (test code = 9.7 fL 9.5-12.9 39448-2) NRBC/100 WBC (test 0.0 See_Comment [Automat ed code = [id number]) message] The system which generated this result transmitted reference range : 0.0 - 10.0 /100 WBCs. The refer ence range was not u sed to interpret th is result as normal/abnormal . NRBC x10^3 (test code See_Comment [Auto mated = [id number]) message] The s ystem which generated this result transmitted reference range : 10*3/?L. The reference range was not used to interpret this result as normal/abnormal . GRAN MAT (NEUT) % 49.4 % (test code = 770-8) IMM GRAN % (test code 0.20 % = [id number]) LYMPH % (test code = 30.5 % 736-9) MONO % (test code = 12.0 % 5905-5) EOS % (test code = 7.0 % 713-8) BASO % (test code = 0.9 % 706-2) GRAN MAT x10^3(ANC) 2.76 10*3/uL 1.88-7.09 (test code = [id number]) IMM GRAN x10^3 (test 0.00-0.06 code = [id number]) LYMPH x10^3 (test code 1.70 10*3/uL 1.32-3.29 = 731-0) MONO x10^3 (test code 0.67 10*3/uL 0.33-0.92 = 742-7) EOS x10^3 (test code = 0.39 10*3/uL 0.03-0.39 711-2) BASO x10^3 (test code 0.05 10*3/uL 0.01-0.07 = 704-7) Lab Interpretation Abnormal (test code = 33499-4) [facility] WITH [id number] 09:57:03 Test Item Value Reference Range Interpretation Comments WBC (test code = 5.58 See_Comment [Automated 6690-2) message] The sy stem which generated this result transmitted reference range : 4.30 - 11.10 10*3/?L. The reference range was not used to interpret this result as normal/abnormal . RBC (test code = 3.61 See_Comment L [Automated 789-8) message] The sy stem which generated this result transmitted reference range : 3.93 - 5.25 10*6/?L. The reference range was not used to interpret this result as normal/abnormal . HGB (test code = 11.3 g/dL 11.6-15.0 L 718-7) HCT (test code = 33.9 % 35.7-45.2 L 4544-3) MCV (test code = 93.9 fL 80.6-95.5 787-2) MCH (test code = 31.3 pg 25.9-32.8 785-6) MCHC (test code = 33.3 g/dL 31.6-35.1 786-4) RDW-SD (test code = 43.4 fL 39.0-49.9 41564-0) RDW-CV (test code = 12.5 % 12.0-15.5 788-0) PLT (test code = 282 See_Comment [Automated 777-3) message] The sy stem which generated this result transmitted reference range : 166 - 358 10*3/ ?L. The reference r taj was not used to interpret this result as normal/abnormal . MPV (test code = 9.7 fL 9.5-12.9 28057-1) NRBC/100 WBC (test 0.0 See_Comment [Automat ed code = [id number]) message] The system which generated this result transmitted reference range : 0.0 - 10.0 /100 WBCs. The refer ence range was not u sed to interpret th is result as normal/abnormal . NRBC x10^3 (test code See_Comment [Auto mated = 6089752400) message] The s ystem which generated this result transmitted reference range : 10*3/?L. The reference range was not used to interpret this result as normal/abnormal . GRAN MAT (NEUT) % 49.4 % (test code = 770-8) IMM GRAN % (test code 0.20 % = 1439317492) LYMPH % (test code = 30.5 % 736-9) MONO % (test code = 12.0 % 5905-5) EOS % (test code = 7.0 % 713-8) BASO % (test code = 0.9 % 706-2) GRAN MAT x10^3(ANC) 2.76 10*3/uL 1.88-7.09 (test code = 8213728595) IMM GRAN x10^3 (test 0.00-0.06 code = 9651475327) LYMPH x10^3 (test code 1.70 10*3/uL 1.32-3.29 = 731-0) MONO x10^3 (test code 0.67 10*3/uL 0.33-0.92 = 742-7) EOS x10^3 (test code = 0.39 10*3/uL 0.03-0.39 711-2) BASO x10^3 (test code 0.05 10*3/uL 0.01-0.07 = 704-7) Lab Interpretation Abnormal (test code = 84771-9) [facility] METABOLIC PANEL (NA, K, CL, CO2, GLUCOSE, BUN, CREATININE, CA)2022-11-26 20:13:26 Test Item Value Reference Range Interpretation Comments NA (test code = 137 mmol/L 135-145 2327634426) K (test code = 4.0 mmol/L 3.5-5.0 5309797194) CL (test code = 95 mmol/L 98-108 L 0535422847) CO2 TOTAL (test code = 25 mmol/L 23-31 1721803404) AGAP (test code = 17 2-16 H 4245404598) BUN (test code = 38 mg/dL 7-23 H 6584679112) GLUCOSE (test code = 89 mg/dL 70-110 1070685696) CREATININE (test code = 6.59 mg/dL 0.50-1.04 H 5867080928) CALCIUM (test code = 9.7 mg/dL 8.6-10.6 2076134677) eGFR (test code = 7.1 mL/min/1.73m2 7105441959) RACQUEL (test code = RACQUEL) Association of Glomerular Filtration Rate (GFR) and Staging of Kidney Disease* + --+ --+ ------+| GFR (mL/min/1.73 m2) ?| With Kidney Damage ?| ?Without Kidney Damage+ --------+ --------+ +| ?>90 ?| ?Stage one ?| ? Normal ?+ ---+ ---+ -------+| ?60-89 ?| ?Stage two ?| ? Decreased GFR ? + --+ --+ ------+| ?30-59 ?| ?Stage three ?| ? Stage three ? + --+ --+ ------+| ?15-29 ?| ?Stage four ? | ? Stage four ?+ ---+ ---+ -------+| ?<15 (or dialysis) ? ?| ?Stage five ? | ? Stage five ?+ ---+ ---+ -------+ *Each stage assumes the associated GFR level has been in effect for at least three months. ?Stages 1 to 5, with or without kidney disease, indicate chronic kidney disease. Notes: Determination of stages one and two (with eGFR >59mL/min/1.73 m2) requires estimation of kidney damage for at least three months as defined by structural or functional abnormalities of the kidney, manifested by either:Pathological abnormalities or Markers of kidney damage (including abnormalities in the composition of the blood or urine or abnormalities in imaging tests). Lab Interpretation Abnormal (test code = 17906-3) [facility] METABOLIC PANEL (NA, K, CL, CO2, GLUCOSE, BUN, CREATININE, CA)2022-11-26 20:13:26 Test Item Value Reference Range Interpretation Comments NA (test code = 137 mmol/L 135-145 5382414755) K (test code = 4.0 mmol/L 3.5-5.0 1806738181) CL (test code = 95 mmol/L 98-108 L 2583849784) CO2 TOTAL (test code = 25 mmol/L 23-31 0361741751) AGAP (test code = 17 2-16 H 3888766595) BUN (test code = 38 mg/dL 7-23 H 3558171817) GLUCOSE (test code = 89 mg/dL 70-110 0332489974) CREATININE (test code = 6.59 mg/dL 0.50-1.04 H 8981300030) CALCIUM (test code = 9.7 mg/dL 8.6-10.6 5235320718) eGFR (test code = 7.1 mL/min/1.73m2 2330185301) RACQUEL (test code = RACQUEL) Association of Glomerular Filtration Rate (GFR) and Staging of Kidney Disease* + --+ --+ ------+| GFR (mL/min/1.73 m2) ?| With Kidney Damage ?| ?Without Kidney Damage+ --------+ --------+ +| ?>90 ?| ?Stage one ?| ? Normal ?+ ---+ ---+ -------+| ?60-89 ?| ?Stage two ?| ? Decreased GFR ? + --+ --+ ------+| ?30-59 ?| ?Stage three ?| ? Stage three ? + --+ --+ ------+| ?15-29 ?| ?Stage four ? | ? Stage four ?+ ---+ ---+ -------+| ?<15 (or dialysis) ? ?| ?Stage five ? | ? Stage five ?+ ---+ ---+ -------+ *Each stage assumes the associated GFR level has been in effect for at least three months. ?Stages 1 to 5, with or without kidney disease, indicate chronic kidney disease. Notes: Determination of stages one and two (with eGFR >59mL/min/1.73 m2) requires estimation of kidney damage for at least three months as defined by structural or functional abnormalities of the kidney, manifested by either:Pathological abnormalities or Markers of kidney damage (including abnormalities in the composition of the blood or urine or abnormalities in imaging tests). Lab Interpretation Abnormal (test code = 21525-4) [facility], [facility]2020-10-14 09:24:00 Test Item Value Reference Interpretation Comments Range PHOSPHATIDYLSERINE <10 U/mL <10 Nega tive 10-20 AB(IGG) (test code = Equivoc al- Found in small 4650) percentage of t he healthy population; may be reactive >20 Positive - Risk factor for thrombosis and loss PHOSPHATIDYLSERINE <25 U/mL The antip hospholipid AB (IGM) (test code antibody syndrome (APS) lita = 5461626) clinical-pathol ogic correlation toby t includesa clinical event (e.g. thrombosis, pre gnancyloss, thrombocytopeni a) and persistent positiveantipho spholipid antibodies (IgM or IgG JENSEN>40 MPL/GPL, IgM or IgG anti-b2GPI anti bodies ora lupus anticoagu lant). International consensusguidel radha for APS suggest waiting at least 12weeks before retesting to confirm antibod ypersistence. The [facility] immunologicalcl assification criteria for [facility] lupuserythemato vishal (SLE) include testing for isotypeIgA, whi ch has yet to be incorporated into APScriteria. Lo w level antiphospholipi d antibodiesmay s ometimes be detected in the setting ofinfection, dr ug therapy or aging. <25 Nega tive 25-35 Equivocal- Foun d in small percentage of t he healthy population; may be reactive >35 Positive - Risk factor for thrombosis RACQUEL (test code = Performing RACQUEL) Lab E[facility] [address] [place] [address] Liz Green MD, PhD, KRISHNA [facility] HospitalProthrombin Gene [id number] 16:22:00 Test Item Value Reference Interpretation Comments Range PROTHROMBIN GENE NEGATIVE RESULT: G20 210A VARIANT NOT ANALYSIS (test DETECTED code = 1211236) Interpretation See Below INTERPRETATIO N: This (test code = individual is n egative 3608526) (normal) for e [id number] in the Prothrombin/Fac tor II gene. Increased risk ofthrombophilia can be caused by a morgan iety of genetic and non-geneticfact ors not screened for by this assay. Laboratory test ing supervised and results monitored by Carol Steinberg,Ph.D., D ABG, [facility]. The E23495I mut ation [HT311429.1: g. 05191W>A (c.*97G>A)] in theProthrombin/ Factor II gene is the sec ond most common inherite d riskfactor for thrombosis occurring in approximately 2 % of Caucasians.Pres ence of the mutation is ass ociated with an elevation of prothrombin levels to about 30% above normal in heter ozygotes and to70% above nor mal in homozygotes. Pr othrombin (K61768X) mutat ions are detected by amp lification [...] t Diagnostics'gen etic counselor or carol abraham [phone] ([phone]) forassistance with interpreta tion of these results. This t est was developed and i ts analytical performancechar acteristics have been deter mined by [facility] e [place]. It has not been cleared or appr elva bythe FDA. This assay has been validated pursu ant to the CLIAregulations and is used for clinical pu rposes. RACQUEL (test code = Performing Lab RACQUEL) [facility] [address] [place] [address] Liz Green MD, PhD, KRISHNA [facility] HospitalFactor 5 Leiden PCR (thrombotic risk)2020-10-11 13:14:00 Test Item Value Reference Interpretation Comments Range Factor V Leiden NEGATIVE FACTOR V LEI DEN (R506Q) Mutation (test VARIANT NOT D ETECTED code = 3872574) Interpretation See Below INTERPRETATIO N: This (test code = individual is n egative 2857327) (normal) for th e Factor VLeiden (R506Q) [...] Ques t Diagnosticsgene tic counselor or call [employer] [facility] ([phone]) for assistancewith interpretation of these results. This t est was developed and i ts analytical performancechar acteristics have been deter mined by [facility] [place]. It has not been cleared or appr elva bythe FDA. This assay has been validated pursu ant to the CLIAregulations and is used for clinical pu rposes. RACQUEL (test code = Performing Lab RACQUEL) [facility] [address] [place] [address] Liz Green MD, PhD, KRISHNA [facility] HospitalProtein S [id number] 03:55:00 Test Item Value Reference Range Interpretation Comments Protein S 95 See_Comment Decreased leve ls of Functional (test Protein S a ctivity code = 3275683) may be found in patients withhereditary deficiency, war farin therapy, vitami n k deficiency, dominick er disease,DIC, or recent thrombos is as well as after surgery. In addition, it ma y bephysiologic i n . An elevated Protei n S activity is not clinicallysigni fican t. Only deficie ncies are associated with an increased thromboticrisk. [Automated mess age] The system [employer] generated this result transmit liya reference range : 60 - 140 % normal. The reference range was not used to interpret this result as normal/abnormal . RACQUEL (test code = Performing Lab EZ RACQUEL) [facility] [address] [place] [address] Liz Green MD, PhD, KRISHNA [facility] HospitalUrine [id number] 07:38:00 Test Item Value Reference Range Interpretation Comments Result (test code = See comment 6463-4) RACQUEL (test code = >100,000 col/mL enteric RACQUEL) organisms of >2 types. No further workup performed. Multiple organisms suggestive of colonization or contamination. Repeat collection recommended.40-49,000 col/mL skin beth [facility] HospitalURINE [id number] 07:38:00 Test Item Value Reference Range Interpretation Comments CULTURE (MELONIE) (test code = See comment 1095) >100,000 col/mL enteric organisms of >2 types. No further workup performed. Multiple organismssuggestive of colonization or contamination. Repeat collection recommended.40-49,000 col/mL skin [id number] 14:26:00 Test Item Value Reference Range Interpretation Comments RPR (test code = 38702-1) Nonreactive Nonreactive Lab Interpretation (test code = Normal 88120-3) [facility] HospitalRPR2021-04-28 14:26:00 Test Item Value Reference Range Interpretation Comments RPR SCREEN (MELONIE) (test code = Nonreactive Nonreactive 420) Varicella Zoster Antibody, [id number] 14:12:00 Test Item Value Reference Range Interpretation Comments Varicella IgG (test 2.8 code = 36705-8) RACQUEL (test code = RACQUEL) VARICELLA ZOSTER RESULT INTERPRETATIONS: <=0.8 Al Nonreactive: Presumed non-immune to VZV 0.9-1.0 Al Equivocal >=1.1 Al Reactive: Presumed immune to VZV [facility] HospitalVARICELLA ZOSTER ANTIBODY, [id number] 14:12:00 Test Item Value Reference Range Interpretation Comments VARICELLA ZOSTER IGG (AL) (BEAKER) 2.8 (test code = 3197) VARICELLA ZOSTER RESULT INTERPRETATIONS: <=0.8 Al Nonreactive: Presumed non- immune to VZV 0.9-1.0Al Equivocal >=1.1 Al Reactive: Presumed immune to VZV Cytomegalovirus antibody, [id number] 13:54:00 Test Item Value Reference Range Interpretation Comments CYTOMEGALOVIRUS, IGG Positive Negative, A (test code = 3429) Equivocal RACQUEL (test code = RACQUEL) CMV IgG Result Interpretation: </= 0.8 Al Negative 0.9-1.0 Al Equivocal >/=1.1 Al Positive Lab Interpretation (test Abnormal code = 36221-5) [facility] HospitalEBV-VCA antibody, [id number] 13:54:00 Test Item Value Reference Range Interpretation Comments ALETA AHUMADA VIRAL Positive Negative, A CAPSID ANTIGEN IGG (test Equivocal code = 3415) RACQUEL (test code = RACQUEL) Aleta Ahumada Viral Capsid Antigen IgG Result Interpretation: </= 0.8 Al Negative 0.9-1.0 Al Equivocal >/= 1.1 Al Positive Lab Interpretation (test Abnormal code = 23802-9) [facility] HospitalEBV-VCA antibody, [id number] 13:54:00 Test Item Value Reference Range Interpretation Comments ALETA AHUMADA VIRAL Negative Negative, CAPSID ANTIGEN IGM (test Equivocal code = 3418) RACQUEL (test code = RACQUEL) Aleta Ahumada Viral Capsid Antigen IgM Result Interpretation: </= 0.8 Al Negative 0.9-1.0 Al Equivocal >/= 1.1 Al Positive Lab Interpretation (test Normal code = 15089-0) [facility] HospitalCytomegalovirus antibody, [id number] 13:54:00 Test Item Value Reference Range Interpretation Comments CMV IGM (test code = Negative Negative, 3437) Equivocal RACQUEL (test code = RACQUEL) CMV IgM Result Interpretation: </= 0.8 Al Negative 0.9-1.0 Al Equivocal >/= 1.1 Al Positive Lab Interpretation (test Normal code = 88745-2) [facility] HospitalCYTOMEGALOVIRUS ANTIBODY, [id number] 13:54:00 Test Item Value Reference Range Interpretation Comments CYTOMEGALOVIRUS, IGG (BEAKER) Positive Negative, Equivocal A (test code = 3429) CMV IgG Result Interpretation: </= 0.8 Al Negative 0.9-1.0 Al Equivocal >/=1.1 Al PositiveCYTOMEGALOVIRUS ANTIBODY, [id number] 13:54:00 Test Item Value Reference Range Interpretation Comments CYTOMEGALOVIRUS IGM ANTIBODY Negative Negative, Equivocal (BEAKER) (test code = 3437) CMV IgM Result Interpretation: </= 0.8 Al Negative 0.9-1.0 Al Equivocal >/= 1.1 Al PositiveEBV ANTIBODY, [id number] 13:54:00 Test Item Value Reference Range Interpretation Comments ALETA AHUMADA VIRAL CAPSID Positive Negative, Equivocal A ANTIGEN IGG (BEAKER) (test code = 3415) Aleta Ahumada Viral Capsid Antigen IgG Result Interpretation: </= 0.8 Al Negative 0.9-1.0 Al Equivocal >/= 1.1 Al PositiveEBV ANTIBODY, [id number] 13:54:00 Test Item Value Reference Range Interpretation Comments ALETA AHUMADA VIRAL CAPSID Negative Negative, Equivocal ANTIGEN IGM (BEAKER) (test code = 3418) Aleta Ahumada Viral Capsid Antigen IgM Result Interpretation: </= 0.8 Al Negative 0.9-1.0 Al Equivocal >/= 1.1 Al PositiveProtein C [id number] 10:42:00 Test Item Value Reference Range Interpretation Comments Protein C Activity (test code = 108.0 % 70-130 73760-9) Lab Interpretation (test code = Normal 82185-8) [facility] HospitalPROTEIN C [id number] 10:42:00 Test Item Value Reference Range Interpretation Comments PROTEIN C ACTIVITY (BEAKER) (test 108.0 % 70.0-130.0 code = 582) Hemoglobin [id number] 16:04:00 Test Item Value Reference Range Interpretation Comments Hemoglobin A1C (test code = 4548-4) 4.6 % 4.3-6.1 Lab Interpretation (test code = Normal 31800-6) [facility] HospitalHEMOGLOBIN [id number] 16:04:00 Test Item Value Reference Range Interpretation Comments HEMOGLOBIN A1C (BEAKER) (test code = 4.6 % 4.3-6.1 368) Hepatitis B surface [id number] 14:44:00 Test Item Value Reference Interpretation Comments Range Hep B S Ab (test 1462.6 See_Comment H [Automated code = 77251-0) message] The system which generated this result transmitted reference range : <8.0 mIU/mL. Th e reference range was not used to interpret this result as normal/abnormal . RACQUEL (test code = Wrapper And Preserver ID - RACQUEL) ROSIANGOperator ID - ROSMAGRIG Lab Interpretation Abnormal (test code = 52626-0) [facility] HospitalHEPATITIS B SURFACE [id number] 14:44:00 Test Item Value Reference Range Interpretation Comments HEPATITIS B SURFACE ANTIBODY 1462.6 mIU/mL <8.0 H (BEAKER) (test code = 647) Wrapper And Preserver ID - ROSIANGOperator ID - ROSIANGUrinalysis, [id number] 14:42:00 Test Item Value Reference Range Interpretation Comments Color, UA (test code Yellow = 5778-6) Clarity, UA (test Clear code = 5767-9) Specific [place], UA 1.012 1.001-1.035 (test code = 5811-5) pH, UA (test code = 8.0 5.0-8.0 5803-2) Protein, UA (test 70 mg/dL Negative A code = 50767-9) Glucose, UA (test Negative Negative code = 365) Ketones, UA (test Negative Negative code = 2514-8) Bilirubin, UA (test Negative Negative code = 83488-4) Blood, UA (test code Negative Negative = 54368-0) Nitrite, UA (test Negative Negative code = 5802-4) Leukocytes, UA (test Negative Negative code = 5799-2) Urobilinogen, UA 0.2 mg/dL 0.2-1 (test code = 31560-0) RBC, UA (test code = <1 See_Comment [Autom ated 93429-0) message] The system which generated this result [...] 4 See_Comment [Automate d (test code = 83249-8) messag e] The system which generated this result transmit liya reference range : /HPF. The reference range was not used to interpret this result as normal/abnormal . Hyaline Casts, UA 1 See_Comment [Automate d (test code = 68681-1) messag e] The system which generated this result transmit liya reference range : /LPF. The reference range was not used to interpret this result as normal/abnormal . Specimen Source (test code = 2795) RACQUEL (test code = RACQUEL) Wrapper And Preserver ID - [auto]Wrapper And Preserver ID - tech Lab Interpretation Abnormal (test code = 04344-5) [facility] HospitalURINALYSIS W/ [id number] 14:42:00 Test Item Value Reference Range Interpretation [...] /LPF 514) SOURCE(BEAKER) (test code = 2795) Wrapper And Preserver ID - [auto]Wrapper And Preserver ID - techHepatitis B surface [id number] 14:30:00 Test Item Value Reference Range Interpretation Comments HBsAg Screen (test code Nonreactive Nonreactive = 5195-3) RACQUEL (test code = RACQUEL) Specimen is considered negative for HBsAg. Lab Interpretation (test Normal code = 94031-4) [facility] HospitalHepatitis B core antibody, [id number] 14:30:00 Test Item Value Reference Range Interpretation Comments Hep B C IgM (test code = Nonreactive Nonreactive 18669-3) RACQUEL (test code = RACQUEL) Wrapper And Preserver ID - BJ Lab Interpretation (test Normal code = 28016-7) [facility] HospitalHepatitis C [id number] 14:30:00 Test Item Value Reference Range Interpretation Comments Hepatitis C Ab (test Nonreactive Nonreactive code = 28606-8) RACQUEL (test code = RACQUEL) Wrapper And Preserver ID - ROSIANG Lab Interpretation (test Normal code = 51735-3) [facility] HospitalHIV-1 Antigen with HIV-1/2 [id number] 14:30:00 Test Item Value Reference Range Interpretation Comments HIV-1 Antigen with HIV Nonreactive Nonreactive 1&2 Antibody (test code = 00889-0) RACQUEL (test code = RACQUEL) Wrapper And Preserver ID - NOELG Lab Interpretation (test Normal code = 62769-1) [facility] HospitalHEPATITIS B SURFACE [id number] 14:30:00 Test Item Value Reference Range Interpretation Comments HEPATITIS B SURFACE ANTIGEN (2) Nonreactive Nonreactive (BEAKER) (test code = 2585) Specimen is considered negative for HBsAg.HEPATITIS B CORE ANTIBODY, IGM 2020-10-07 14:30:00 Test Item Value Reference Range Interpretation Comments HEPATITIS B CORE IGM ANTIBODY Nonreactive Nonreactive (BEAKER) (test code = 645) Wrapper And Preserver ID - YOVANNYIANGHEPATITIS C [id number] 14:30:00 Test Item Value Reference Range Interpretation Comments HEPATITIS C ANTIBODY (BEAKER) Nonreactive Nonreactive (test code = 367) Wrapper And Preserver ID - WILMERIV-1 ANTIGEN WITH HIV-1/2 [id number] 14:30:00 Test Item Value Reference Range Interpretation Comments HIV-1 ANTIGEN WITH HIV 1\\T\\2 Nonreactive Nonreactive ANTIBODY (2) (BEAKER) (test code = 2586) Wrapper And Preserver ID - NOELGAntithrombin [id number] 14:04:00 Test Item Value Reference Range Interpretation Comments Antithrombin III (test code = 20059-9) 94.0 % 80-120 Lab Interpretation (test code = Normal 80621-2) [facility] HospitalANTITHROMBIN [id number] 14:04:00 Test Item Value Reference Range Interpretation Comments ANTITHROMBIN III ACTIVITY (BEAKER) 94.0 % 80.0-120.0 (test code = 711) Direct AHG (JOHANN)/Direct [id number] 13:47:00 Test Item Value Reference Range Interpretation Comments Direct AHG-IGG (test code = 1006-6) NEGATIVE Direct AHG-C3B, C3D (test code = NEGATVIE 1003-3) [facility] HospitalComprehensive metabolic [id number] 13:42:00 Test Item Value Reference Range Interpretation Comments Protein, Total (test 6.9 See_Comment [Autom ated code = 2885-2) message] The system which generated this result transmit liya reference range : 6.0 - 8.3 gm/dL . The reference range was not u sed to interpret th is result as normal/abnormal . Albumin (test code = 3.9 g/dL 3.5-5 95297-1) Alkaline Phosphatase 65 U/L 40-150 (test code = 6768-6) Total Bilirubin (test 0.3 mg/dL 0.2-1.2 code = 1975-2) Sodium (test code = 140 meq/L 969-648 9077-2) Potassium (test code 4.2 meq/L 3.5-5.1 = 2823-3) Chloride (test code = 102 meq/L 98-107 2075-0) CO2 (test code = 23 meq/L 22-29 2028-9) BUN (test code = 39 mg/dL 7-21 H 3094-0) Creatinine (test code 9.59 mg/dL 0.57-1.25 H = 2160-0) Glucose (test code = 91 mg/dL 70-105 2345-7) Calcium (test code = 8.5 mg/dL 8.4-10.2 58520-2) AST (test code = 16 U/L 5-34 1920-8) ALT (test code = 11 U/L 6-55 1742-6) EGFR (test code = 6 mL/min/1.73 [place] [address]-9) NOT ACCURATE CREATININE CLEARANCE IN PREDICTING GLOMERULAR FILTRATION RATE . ESTIMATED GFR I S NOT APPLICABLE FOR DIALYSIS PATIEN TSChelsey RACQUEL (test code = RACQUEL) Wrapper And Preserver ID - ROSMARGIG Lab Interpretation Abnormal (test code = 23750-4) [facility] HospitalCOMPREHENSIVE METABOLIC [id number] 13:42:00 Test Item Value Reference Range Interpretation [...] S NOT APPLICABLE FOR DIALYSIS PATIEN TS. Wrapper And Preserver ID - CATHYamma Glutamyl Transferase (GGT)2020-10-07 13:37:00 Test Item Value Reference Range Interpretation Comments GGT (test code = 2324-2) 21 U/L 9-64 RACQUEL (test code = RACQUEL) Wrapper And Preserver ID - BJ Lab Interpretation (test Normal code = 44445-5) [facility] HospitalPhosphorus2021-04-27 13:37:00 Test Item Value Reference Range Interpretation Comments Phosphorus (test code = 5.7 mg/dL 2.3-4.7 H 2777-1) RACQUEL (test code = RACQUEL) Wrapper And Preserver ID - JB Lab Interpretation (test Abnormal code = 79574-8) [facility] HospitalUric [id number] 13:37:00 Test Item Value Reference Range Interpretation Comments Uric Acid (test code = 8.4 mg/dL 2.6-7.2 H 3084-1) RACQUEL (test code = RACQUEL) Wrapper And Preserver ID - BJ Lab Interpretation (test Abnormal code = 24011-9) [facility] HospitalPHOSPHORUS2021-04-27 13:37:00 Test Item Value Reference Range Interpretation Comments PHOSPHORUS (BEAKER) (test code = 5.7 mg/dL 2.3-4.7 H 604) Wrapper And Preserver ID - NOELGURIC [id number] 13:37:00 Test Item Value Reference Range Interpretation Comments URIC ACID (BEAKER) (test code = 8.4 mg/dL 2.6-7.2 H 773) [employer] ID - ROSMARGIGGAMMA GLUTAMYL TRANSFERASE (GGT)2020-10-07 13:37:00 Test Item Value Reference Range Interpretation Comments GAMMA GLUTAMYL TRANSFERASE (BEAKER) 21 U/L 9-64 (test code = 364) [employer]rapper [employer] Preserver ID - NOELGPTH, [id number] 13:36:00 Test Item Value Reference Range Interpretation Comments PTH (test code = 2731-8) 466.5 pg/mL 8.5-72.5 H RACQUEL (test code = RACQUEL) Wrapper [employer] Preserver ID - BJ Lab Interpretation (test Abnormal code = 13187-0) [facility], [id number] 13:36:00 Test Item Value Reference Range Interpretation Comments PARATHYROID HORMONE INTACT 466.5 pg/mL 8.5-72.5 H (BEAKER) (test code = 577) [employer] Preserver ID - NOELGPT/[id number] 13:34:00 Test Item Value Reference Interpretation Comments Range Protime (test code = 13.9 See_Comment [Autom ated 5902-2) message] The system which generated this result transmitted reference range : 11.9 - 14.2 seconds. The reference range was not used to interpret this result as normal/abnormal . INR (test code = 1.11 See_Comment [Automated 5301-6) message] The system which generated this result transmitted reference range : <=5.90. The reference range was not used to interpret this result as normal/abnormal . PTT (test code = 37.1 See_Comment H [Automated 69667-9) message] The system which generated this result [...] valves. Lab Interpretation Abnormal (test code = 79327-8) [facility]/[id number] 13:34:00 Test Item Value Reference Range Interpretation [...] 2.5-3.5 for patients wiht mechanical heart valves.Prothrombin time/[id number] 13:33:00 Test Item Value Reference Interpretation Comments [...] valves. Lab Interpretation Normal (test code = 97865-9) [facility]ABORH, [id number] 13:33:00 Test Item Value Reference Range Interpretation Comments ABO Grouping (test code = 2588) O Rh Factor (test code = 2589) POS [facility]PROT[facility]OM[facility] TIME/[id number] 13:33:00 Test Item Value Reference Range Interpretation Comments PROTIME (BEAKER) 13.9 seconds 11.9-14.2 (test code = 759) INR (BEAKER) (test 1.11 See_Comment [Automat ed message] code = 370) The system [employer] generated this result transmitted ref erence range: [...] heart valves.CBC with platelet count + automated [id number] 13:05:00 Test Item Value Reference Range Interpretation Comments WBC (test code = 6690-2) 6.4 See_Comment [A utomated message] The system [employer] generated this result transmitted ref erence range: 3.5 - 10 .5 K/L. The refe rence range was not u sed to interpret this result as normal/abnor mal. RBC (test code = 789-8) 2.95 See_Comment L [Au tomated message] The system [employer] generated this result transmitted ref erence range: 3.93 - 5 .22 M/L. The refe rence range was not u sed to interpret this result as normal/abnor mal. MCHC (test code = 786-4) 31.4 See_Comment L [A utomated message] The system [employer] generated this result transmitted ref erence range: [...] See_Comment [Aut omated message] 777-3) The system [employer] generated this result transmitted ref erence range: 150 - 45 0 K/CU MM. The referen ce range was not u sed to interpret this result as normal/abnor mal. MPV (test code = 9.7 fL 9.4-12.3 62106-4) nRBC (test code = 413) 0 See_Comment [Aut omated message] The system [employer] generated this result transmitted ref erence range: [...] See_Comment [Aut omated message] 670) The system [employer] generated this result transmitted ref erence range: 1.56 - 6 .13 K/L. The refe rence range was not u sed to interpret this result as normal/abnor mal. # Lymphs (test code = 1.43 See_Comment [Auto mated message] 414) The system [employer] generated this result transmitted ref erence range: 1.18 - 3 .74 K/L. The refe rence range was not u sed to interpret this result as normal/abnor mal. # Monos (test code = 0.48 See_Comment H [Autom ated message] 415) The system [employer] generated this result transmitted ref erence range: 0.24 - 0 .36 K/L. The refe rence range was not u sed to interpret this result as normal/abnor mal. # Eos (test code = 416) 0.28 See_Comment [Au tomated message] The system [employer] generated this result transmitted ref erence range: 0.04 - 0 .36 K/L. The refe rence range was not u sed to interpret this result as normal/abnor mal. # Baso (test code = 417) 0.04 See_Comment [A utomated message] The system [employer] generated this result transmitted ref erence range: 0.01 - 0 .08 K/L. The refe rence range was not u sed to interpret this result as normal/abnor mal. Immature 0 % 0-1 Granulocytes-Relative (test code = 2801) Lab Interpretation (test Abnormal code = 25767-7) [facility] W/PLT COUNT & AUTO [id number] 13:05:00 Test Item Value Reference Range Interpretation [...] (BEAKER) (test code = 2801) T SPOT [id number] 14:01:00 Test Item Value Reference Range Interpretation Comments T-SPOT TB (BEAKER) (test code = Negative 1683) NEG CONTROL SPOT COUNT (BEAKER) 0 (test code = 1684) PANEL A SPOT (BEAKER) (test code = 0 1685) PANEL B SPOT (BEAKER) (test code = 0 1686) POS CONTROL SPOT CT (BEAKER) (test 0 code = 1687) SCAN RESULT (test code = 5920917) See Scanned ReportECG 12 [id number] 13:44:09Interface, External Ris In - 09/25/2020 1:44 PM CDTVentricular Rate 75 BPMAtrial Rate 75 BPMP-R Interval 154 msQRS Duration 86 msQ-T Interval 442 msQTC Calculation(Bazett) 493 msP Independence 73 degreesR Axis83 degreesT Independence 64 degreesNormal sinus rhythmRight atrial enlargementProlonged QTAbnormal ECGNo previous ECGs availableConfirmed by MD Megan, Nathaniel ([id number]) on 09/25/2020 1:44:07 [facility], WITH [id number] 13:22:00Reason for Exam:->to assess iliac vesselsKidney Transplant Evaluation [facility] 1985 Sex: FFINAL REPORT TECHNIQUE: [...] Verified Date/Time: 09/25/2020 13:22:46 US pelvis with [id number] 13:22:00Interface, External Ris In - 09/25/2020 1:24 [...] Cindy Wright MDReport Verified Date/Time: 09/25/2020 13:22:46 [facility], ABDOMINAL, [id number] 13:01:00Reason for Exam:->[facility] : 1985 Sex: FFINAL REPORT TECHNIQUE: Grayscale ultrasound of the abdomen. INDICATION: 35-year-old woman for renal transplant evaluation. COMPARISON: None. FINDINGS: MIDLINE VASCULATURE: Visualized inferior vena cava is patent. Main portal vein is patent. Maximum visualized aortic diameter is 2.3 cm. LIVER: Liver is normal in size and echogenicity with smooth contour. No focal lesion. BI LIARY:Gallbladder: No gallstones or sludge. No gallbladder wall thickening, pericholecystic fluid, or distention. Reported negative sonographic Cooper sign.Common bile duct measures 0.3 cm, within normal limits. No intrahepatic biliary ductal dilatation. PANCREAS: Visualized portions of the pancreas are unremarkable. SPLEEN: No splenomegaly. PERITONEUM: No free fluid. KIDNEYS: Both kidneys are mildlyechogenic. Right kidney measures 7.4 x 2.7 x 4.9 cm with cortical thickness of 0.7 cm. Left kidney measures 8.1 x 4.3 x 3.6 cm with cortical thickness of 1.1 cm. No hydronephrosis. No sonographically evident mass or cyst. IMPRESSION:Mildly echogenic kidneys, consistent with medical renal disease. No sonographically evident renal mass or cyst. Signed: Cindy Wright MDReport Verified Date/Time: 09/25/2020 13:01:08 US abdomen [id number] 13:01:00Interface, External Ris In - 09/25/2020 1:03 [...] Cindy Wright MDReport Verified Date/Time: 09/25/2020 13:01:08 [facility] CenterLIPID PANEL 2020-09-25 12:42:00 Test Item Value Reference [...] Borderline 130-159 High 160-189 Very High >=190 Wrapper And Preserver ID - [id number] Echo W/Doppler(CW/PW/Color)2020-09-25 10:35:55Ejection FractionSLEH ECHO HEARTLAB MKCKESSON CPACSInterface, External Ris In - 09/25/2020 10:36 AM C DTTransthoracic Echocardiography Report (TTE) Demographics Patient Name NELY RODRIGES Date of Study 09/25/2020 RAMONA MEYER Gender Female Visit Number [id number] Race Black Room Number OP Number Date of 1985 Referring Anderson Zamora Physician Bunny Age 35 year(s) Pharmacy Resource Tech Gerardo Woodruff RDCS Interpreting Physician SHASHI Martino Procedure Type of [...] systolic reversal. Atrial septal position continuously bows spmc-uo-mrpav, consistent with elevated LA pressure . Xjfw-bw-gcmpadwi tricuspid regurgitation. Estimated peak systolic PA pressure [...] Atrial Septum Atrial septal position continuously bows dtrl-kw-txqmf, consistent withelevated LA pressure . Aortic Valve Normal AoV structure. There is trace aortic regurgitation. Mitral Valve Mild MV leaflet thickening. At least moderate eccentric posteriorly directed mitral regurgitation. Tricuspid Valve TV structure is normal. Yphn-zw-btpsoqzj tricuspid regurgitation. Estimated peak systolic PA pressure [...] Diameter: 2.01 cm Aorta Ao Root S ofVal.: 2.94 cm Doppler/Quantitative Measurements LVOT Peak Velocity: 1.46 m/s Peak Gradient: 8.49 mmHg Mean Velocity: 0.9 m/s Mean Gradient: 3.9 mmHg LVOT Diameter: 2.01 cm LVOT VTI: 26.63 cm LVOT Area:3.17 cm^2 LVOT SV:84.46 ml LVOT CO: 6.17 l/min LVOT CI: 3.72 l/min/m^2[facility] HospitalRAD[facility], 2 [id number] 10:28:00Reason for Exam:->Kidney Transplant Evaluation [facility] : 1985 Sex: FFINAL REPORT EXAMINATION: RAD, [...] MDReport Verified Date/Time: 09/25/2020 10:28:23 Reading Location: [facility] Reading Room [address] [place] [address] XR chest 2 [id number] 10:28:00Interface, External Ris In - 09/25/2020 10:30 [...] MDReport Verified Date/Time: 09/25/2020 10:28:23 Reading Location: [facility] Reading Room [address] [place] [address] [facility] H[facility] [id number] 14:34:00 Test Item Value Reference Range Interpretation Comments UR HCG QUAL (test code = HCGQLU) NEGATIVE NEGATIVE COVID 19 Asymptomatic IH [id number] 12:06:00 Test Item Value Reference Range Interpretation [...] COMMENTS: If not done this admissionBASIC METABOLIC [id number] 11:25:00 Test Item Value Reference Range Interpretation [...] = 8.3 mg/dL 8.0-10.5 N CA) PROTHROMBIN [id number] 11:22:00 Test Item Value Reference Range Interpretation Comments PROTHROMBIN TIME 12.2 SECONDS 9.3-12.9 N PATIENT (test code = PTP) INTERNATIONAL NORMAL 1.1 0.8-1.2 N TARGE T INR BY RATIO (test code = INDICATIO N Indication INR) INR1. Prophylax is of venous thrombos is 2.0 - 3.0 (orthoped ic surgery), Proph ylaxis of venous throm bosis (other than hig h-risk surgery), Treat ment of Deep Vein Thrombosis/Pulm onary Embolism, Preve ntion of systemic emb olism - Tissue heart va lves, Acute Myocardia l Infarction (to prevent systemic embol ism), Valvular heart disease, Atrial Fibrillation, Bileaflet mecha nical valve in aortic position.2. Mec hanical prosthetic valv es (high risk), 2. 5 - 3.5 Presence of Lup us Anticoagulant o r Antiphospholipi d Antibodies, Pre vention of systemic emb olism - Acute Myocardia l Infarction (to prevent recurrent infar ct). CBC W/AUTO [id number] 11:20:00 Test Item Value Reference Range Interpretation [...] NO = MDIFF) - XR CHEST 1 [id number] 11:15:00 [facility] 1985 Sex: F FAX: Abimael Gallardo MD [phone] [place]: St: REG Name: NELY RODRIGES [facility] : 1985 Age/S: 35/F [address] [place] [address] Blvd Unit #: [id number] Loc: [place] [address] Phys: Abimael Isaac MD Acct: [id number] Dis Date: Status: [place] [facility] [place] #: [phone] Exam Date: 06/03/2020 1052 FAX #: [phone] Reason: PRE-OP EXAMS: CPT CODE: [id number] XR CHEST 1 V 00749 EXAM: XR CHEST 1 VIEW DATE: 06/03/2020 9:40 AM : 1985; Age: 35 years y/o Female INDICATION: AVF malfunction, PRE-OP COMPARISON: March 25, 2020 TECHNIQUE: AP chest. IMPRESSION: Lines, tubes and hardware: Stable. Heart, mediastinum and lungs: Heart appears borderline enlarged. No consolidation or pleural effusion is seen. No pneumothorax. SL: [id number] at 1115 Reported and signed by: Marcy Montes D.O. CC: Abimael Isaac MD Technologist: RT Faheem(R) Trnscrd Date/Time/By: 06/03/2020 (1112) : By: GalloMP37 Orig Print D/T: S: 06/03/2020 (1119) PAGE 1 Signed ReportCBC W/AUTO [id number] 11:13:00 Test Item Value Reference Range Interpretation [...] DIFF REQUIRED (test code = MDIFF) PROTHROMBIN [id number] 11:57:00 Test Item Value Reference Range Interpretation [...] (to prevent recurrent infar ct). BASIC METABOLIC [id number] 11:39:00 Test Item Value Reference Range Interpretation [...] 9.9 mg/dL 8.0-10.5 N CA) HCG SERUM [id number] 11:23:00 Test Item Value Reference Range Interpretation Comments HCG SERUM QUAL (test code = SERUM NEGATIVE NEGATIVE HCGQL) CBC W/AUTO [id number] 11:17:00 Test Item Value Reference Range Interpretation [...] (test code NO = MDIFF) CBC W/AUTO [id number] 11:15:00 Test Item Value Reference Range Interpretation [...] code = MDIFF) - XR CHEST 1 [id number] 11:04:00 FAX: Abimael Gallardo MD [phone] [place]: [address] St: REG Name: NELY RODRIGES [facility] : 1985 Age/S: 34/F [address] [place] [address] Blvd Unit #: [id number] Loc: [place] [address] Phys: Abimael Isaac MD Acct: [id number] Dis Date: Status: [place] [facility] #: [phone] Exam Date: 03/25/20201102 FAX #: [phone] Reason: PRE OP EXAMS: CPT CODE: [id number] XR CHEST 1 V 51875 PROCEDURE: CHEST SINGLE VIEW INDICATION: PRE OP; ESRD COMPARISON: March 2014 FINDINGS: TUBES AND LINES: Tunneled right hemodialysis catheter tip at the level of mid superior vena cava. CHEST: The lungs are clear. The pleural, cardiomediastinal silhouette, and bony thorax are normal. IMPRESSION: No acute findings. SL: [id number] at 1104 Reported and signed by: Josesito Tolentino M.D. CC: Abimael Isaac MD Technologist: More LamaRT(R) Trnscrd Date/Time/By: 03/25/2020 (1104) : By: GalloKWL Orig Print D/T: S: 03/25/2020 (8844) PAGE 1 Signed ReportCOVID 19 Asymptomatic IH [id number] 10:59:00 Test Item Value Reference Range Interpretation [...] d or approved; the t est hasbeen authorliz ramirez by FDA under an Em ergency Use Authorizati on(EUA) for use by labo ratories certified under the CLIA thatmeet the requirements to perform moderate, high or waivedcomplexit y tests. COMMENTS: If not done this admission Notes Date/Time Note Provider Source 2023-01-11 Formatting of this note might be differe nt from the original. Divya Marshall [facility] 10:42:31-00:00 Please review and close encounter Electronically signed by Divya Marshall at 080 06/2022 10:49 AM CDT 2022-12-06 Formatting of this note might be differe nt from the original. Shravan Sherman [facility] 10:15:33-00:00 Nely Rodriges is a 37 year old female PCT Pharm calling to clarify dosage of Rx furosemide 80 mg tablet 1/2 tablet 2x per day Or 1 tablet 2x per day Please advise [id number] [place] [place] - [address] [employer] 2022-12-01 [facility] 09:55:58-00:00 Nely Rodriges is a 37 year old female Dorina from [facility] alling stating they have questions regarding dosage of methocarbamoL (ROBAXIN) tablet 1,000 mg stating they do not have 1000 mg of this medication asking if they can fill it at 500 mg [id number] - [place], [place] - [address] [employer] Electronically signed by Divya Marshall at 11/12 9:59 AM CDT 2020-06-03 [id number] [facility] 18:42:00-00:[address] [place] [address] PATIENT NAME: NELY RODRIGES ADMIT DATE : 06/03/20 ACCOUNT NO: [id number] ROOM NO: AGE: 35 REPORT TYPE: OPERATIVE REPORT SEX: F ADMITTING PHYSICIAN: ATTENDING PHYSICIAN:Abimael Isaac MD OPERATION DATE: 06/03/2020 PREOPERATIVE DIAGNOSIS: End-stage renal disease. POSTOPERATIVE DIAGNOSIS: End-stage renal disease . PROCEDURES: 1. Left upper extremity AV fistula creation usin g direct arteriovenous anastomosis in the wrist area. 2. Exploration of the radial artery. 3. Left upper extremity vein mapping including a rterial inflow study. SURGEON: Abimael Isaac MD WASHHOUSE HAND: ANESTHESIA: General anesthesia. ESTIMATED BLOOD LOSS: Minimal. FINDINGS: The patient has a patent forearm cepha lic vein. In the upper arm, the main venous outflow was through the basilic vein. The patient also has a good radial artery. The patient had previous fis john in the wrist area, which failed to mature. However, there was some aneury smal dilation at anastomosis. PROCEDURE IN DETAIL: The patient was lora subhash on table in supine position. After general anesthesia was achie liliana, the patient's left upper extremity was cleaned, prepped, and draped in standard surgical fashion. At this time, a vein mapping was then performed by myself. It appeared the pa tient had a good segment of vein in the forearm. I decided to proceed with f istula creation in the wrist area. Incision was made through previous incisio n in the wrist area. The incision actually extended more proximally. Diss ection carried down and the previous anastomosis was then identified and dis sected out. On further exploration of the vein, it appeared that the vein, right after the anastomosis was very atrophic. At this time, I made the inci william on the vein in the longitudinal fashion. The vein did opene d up to a good size vein. However, the segment right after the previous anastom osis was not useable. At this time, I decided to create a new fist priya. I was able to dissect out more vein proximally and mobilized the vein. The radial artery was al so dissected out in the proximal location of the incision. At this time, the vein was then divided right after the diseased segment. The patient re ceived 3000 units of heparin. The radial artery was then controlled wi vascular clamps. An arteriotomy was made in the artery in a longitudinal fashion. Th e cephalic vein was then PATIENT NAME: NELY RODRIGES sutured to the artery in an end-to-side fashion with Prolene suture. After completion of suture line, the vascular control was then released. There was good thrill palpated over the fistula. The previ ous stump from the previous anastomosis was then oversewed using a Prolene s uture. Once hemostasis was achieved, the incision was t hen closed using 3-0 Vicryl for subcutaneous tissue and 4-0 Vicryl for skin edges. The incision was then cleaned and dressing was then applied. The patient was then awakened from anesthesia and taken to recovery room in stable condition. Dictated By: Abimael Isaac MD WT: OP:NATIVIDAD/HAYLEE/REMIGIO Conf#: [id number]/DID#: [id number] Authenticated by Abimael Isaac MD On 06/16/2020 0 7:06:01 PM Electronically Signed by Abimael Isaac MD on 10/01 at 1906 PATIENT NAME: NELY RODRIGES 2020-06-03 [id number] [facility] 10:32:00-00:[address] [place] [address] PATIENT NAME: NELY RODRIGES ADMIT DATE : 06/03/20 ACCOUNT NO: [id number] ROOM NO: AGE: 35 REPORT TYPE: eELECTROCARDIOGRAM REPORT SEX: F ADMITTING PHYSICIAN: ATTENDING PHYSICIAN:Abimael Isaac MD Order: [id number] Test Reason : PRE-OP Test Date/Time Stamp: TueJun 03 2020 10:32:55 Blood Pressure : / mmHG Vent. Rate : 056 BPM Atrial Rate : 056 BPM P-R Int : 156 ms QRS Dur : 090 ms QT Int : 508 ms P-R-T Axes : 053 032 048 degree s QTc Int : 490 ms Sinus bradycardia Biatrial enlargement Prolonged QT Abnormal ECG PRE_OP Confirmed by CECILIA HWANG MD ([id number]) on 020 4:16:45 PM Referred By: Abimael Isaac Confirmed by:CECILIA ENCINAS MD at 1616 PATIENT NAME: NELY RODRIGES 2020-03-25 [id number] [facility] 13:28:00-00:[address] [place] [address] PATIENT NAME: NELY RODRIGES ADMIT DATE : 03/25/20 ACCOUNT NO: [id number] ROOM NO: AGE: 34 REPORT TYPE: OPERATIVE REPORT SEX: F ADMITTING PHYSICIAN: ATTENDING PHYSICIAN:Abimael Isaac MD OPERATION DATE: 03/25/2020 PREOPERATIVE DIAGNOSIS: End-stage renal disease. POSTOPERATIVE DIAGNOSIS: End-stage renal disease . PROCEDURES: 1. Left upper extremity AV fistula creation usin g direct arteriovenous anastomosis in the wrist area. 2. Left upper extremity ultrasound vein mapping and study of the arterial inflow. SURGEON: Abimael Isaac MD WASHHOUSE HAND: ANESTHESIA: General anesthesia. ESTIMATED BLOOD LOSS: Minimal. FINDINGS: The patient has patent left upper extr emity vein. The patient has a patent left forearm cephalic vein. The vein main ly drained through the upper arm basilic vein. The left upper extremity cepha lic vein appeared to be somewhat atrophic. The arterial inflow appeared to be patent. DESCRIPTION OF PROCEDURE: The patient was placed on table in supine position. After general anesthesia was achieved, the patie nt's left upper extremity was cleaned, prepped, and draped in standard surgical fashion. At this time, a vein mapping was then performed by myself. The patien t again has a patent cephalic vein in the forearm. There was also a pa tent arterial inflow. The incision was made in the wrist area. Diss ection was carried down and an incision was made in the wrist area. The cephalic vein and the radial artery both were then identified and dissected out. The patien t then received 3000 units of heparin. The vein was then ligated distally and d ivided. The vein was then flushed with heparinized solution. The artery was then contro lled with vascular clamps. An arteriotomy was made in the artery in a longitudinal fashion. The vein was then sutured to the artery in an end-to-side fashion with Prolene suture. After completion of suture line, the vascular control was then released. There was good flow examined on the fistula. Once the hemo stasis was achieved, the incision was then closed using 3-0 Vicry l for subcutaneous tissue and then 4-0 Vicryl for skin edges. The incision was then cleaned and Dermabond solution was then applied. The patient tolerated the procedur e well without complication. PATIENT NAME: NELY RODRIGES Dictated By: Abimael Isaac MD WT: OP:NATIVIDAD/HAYLEE/REMIGIO Conf#: [id number]/DID#: [id number] Authenticated by Abimael Isaac MD On 03/26/2020 1 1:42:39 PM Electronically Signed by Abimael Isaac MD on at 2343 PATIENT NAME: NELY RODRIGES 2020-03-25 [id number] [facility] 10:18:00-00:[address] [place] [address] PATIENT NAME: NELY RODRIGES ADMIT DATE : 03/25/20 ACCOUNT NO: [id number] ROOM NO: AGE: 34 REPORT TYPE: eELECTROCARDIOGRAM REPORT SEX: F ADMITTING PHYSICIAN: ATTENDING PHYSICIAN:Abimael Isaac MD Order: [id number] Test Reason : PREPROCEDURE Test Date/Time Stamp: TueMar 25 2020 10:18:26 Blood Pressure : / mmHG Vent. Rate : 046 BPM Atrial Rate : 046 BPM P-R Int : 158 ms QRS Dur : 090 ms QT Int : 540 ms P-R-T Axes : 055 036 046 degree s QTc Int : 472 ms Sinus bradycardia Possible Left atrial enlargement Left ventricular hypertrophy Abnormal ECG When compared with ECG of 15-MAR-2014 16:24, Significant changes have occurred Confirmed by CHIVO GARCIA ([id number]) on 03/25/20 20 12:54:52 PM Referred By: Abimael Isaac Confirmed by:CHIVO GARCIA at 1252 PATIENT NAME: NELY RODRIGES "
[2023-02-05 07:49] LABS: Absolute Lymphocytes (CBC) 0.7 K/uL (0.7-4.9); Hematocrit 27.5 % (36.0-45.0); Lymphocytes % 8.3 % (15.3-44.8); MCV 96.2 fL (80-100); MPV 8.3 fL (7.6-11.3); Platelets 211 thou/uL (152-406); RBC Red Blood Cell Count 2.86 M/uL (3.86-4.86)
[2023-02-05 07:52] LABS: Protime INR 1.17
[2023-02-05 08:09] LABS: Albumin 3.3 g/dL (3.4-5.0); Bilirubin Direct 0.2 mg/dL (0-0.2); Bilirubin Indirect, Calculated 0.3 mg/dL (0.2-0.8); Bilirubin Total 0.5 mg/dL (0.2-1.0); Magnesium 3.3 mg/dL (1.6-2.4); Potassium 4.2 mEq/L (3.5-5.1); Protein, Total 7.4 g/dL (6.4-8.2)
--- NOTE | 2023-02-05 08:22 | RAD REPORT ---
EXAM DESCRIPTION: RAD - Chest Single View - 02/05/2023 8:12 am CLINICAL HISTORY: CHEST PAIN COMPARISON: Chest Single View dated 09/16/2022; Chest Single View dated 05/07/2022; Abdomen 1 View ([facility]) dated 08/25/2021; Chest Single View dated 08/24/2021 FINDINGS: Lines: Dialysis catheter. Lungs: Bilateral interstitial and airspace disease. Pleural: No significant pleural effusions or pneumothorax. Cardiac: Cardiomegaly. Mediastinum: Within normal limits. Bones: No acute fractures. Other: None IMPRESSION: Bilateral interstitial and airspace disease that may reflect pulmonary edema.
--- NOTE | 2023-02-05 08:28 | EDPHYS ---
Physician Documentation [facility] Name: Nely Quinones Age: 37 yrs Sex: Female : 1985 Arrival Date: 02/05/2023 Time: 06:29 Bed 15 Private MD: AVERY Physician Oscar Shultz HPI: 02/05 08:06 This 37 yrs old Black Female presents to ER via Ambulatory with complaints of PORT toño PROBLEM, VOMITING BLOOD, AND FISTULA. 08:06 The patient has shortness of breath at rest, with light activity. Onset: The toño symptoms/episode began/occurred 3 day(s) ago. Duration: The symptoms are continuous, and are unchanged since they started. The patient's shortness of breath is aggravated by nothing. The patient presents with abdominal pain in the epigastric area. Onset: The symptoms/episode began/occurred 3 day(s) ago. The patient presents to the emergency department vomiting blood, a small amount. Abdominal pain: described as crampy. Modifying factors: The symptoms are alleviated by the symptoms are aggravated by nothing. The symptoms do not radiate. Associated signs and symptoms: Pertinent positives: non-productive cough, nausea, vomiting. Severity of symptoms: At their worst the symptoms were moderate in the emergency department the symptoms are unchanged. Historical: - Allergies: 06:46 No Known Allergies; ha1 - PMHx: 06:46 Asthma; dialysis L arm access; Hypertensive disorder; RENAL FAILURE; ha1 - Immunization history:: Adult Immunizations not up to date. - Social history:: Smoking status: Patient denies any tobacco usage or history of. - Family history:: not pertinent. ROS: 08:06 Constitutional: Negative for fever, chills, and weight loss, Eyes: Negative for injury, toño pain, redness, and discharge, ENT: Negative for injury, pain, and discharge, Neck: Negative for injury, pain, and swelling, Cardiovascular: Negative for chest pain, palpitations, and edema, Back: Negative for injury and pain, : Negative for injury, bleeding, discharge, and swelling, MS/Extremity: Negative for injury and deformity, Skin: Negative for injury, rash, and discoloration, Neuro: Negative for headache, weakness, numbness, tingling, and seizure, Psych: Negative for depression, anxiety, suicide ideation, homicidal ideation, and hallucinations, Allergy/Immunology: Negative for hives, rash, and allergies, Endocrine: Negative for neck swelling, polydipsia, polyuria, polyphagia, and marked weight changes. 08:06 Respiratory: Positive for cough, "sounds productive". 08:06 Abdomen/GI: Positive for vomiting, hematemesis. Exam: 08:06 Constitutional: This is a well developed, well nourished patient who is awake, alert, toño and in no acute distress. Head/Face: Normocephalic, atraumatic. Eyes: Pupils equal round and reactive to light, extra-ocular motions intact. Lids and lashes normal. Conjunctiva and sclera are non-icteric and not injected. Cornea within normal limits. Periorbital areas with no swelling, redness, or edema. ENT: Nares patent. No nasal discharge, no septal abnormalities noted. Tympanic membranes are normal and external auditory canals are clear. Oropharynx with no redness, swelling, or masses, exudates, or evidence of obstruction, uvula midline. Mucous membranes moist. Neck: Trachea midline, no thyromegaly or masses palpated, and no cervical lymphadenopathy. Supple, full range of motion without nuchal rigidity, or vertebral point tenderness. No Meningismus. Chest/axilla: Normal chest wall appearance and motion. Nontender with no deformity. No lesions are appreciated. Cardiovascular: Regular rate and rhythm with a normal S1 and S2. No gallops, murmurs, or rubs. Normal PMI, no JVD. No pulse deficits. Respiratory: Lungs have equal breath sounds bilaterally, clear to auscultation and percussion. No rales, rhonchi or wheezes noted. No increased work of breathing, no retractions or nasal flaring. Abdomen/GI: Soft, non-tender, with normal bowel sounds. No distension or tympany. No guarding or rebound. No evidence of tenderness throughout. Back: No spinal tenderness. No costovertebral tenderness. Full range of motion. Skin: Warm, dry with normal turgor. Normal color with no rashes, no lesions, and no evidence of cellulitis. MS/ Extremity: Pulses equal, no cyanosis. Neurovascular intact. Full, normal range of motion. Neuro: Awake and alert, GCS 15, oriented to person, place, time, and situation. Cranial nerves II-XII grossly intact. Motor strength 5/5 in all extremities. Sensory grossly intact. Cerebellar exam normal. Normal gait. Psych: Awake, alert, with orientation to person, place and time. Behavior, mood, and affect are within normal limits. 08:50 ECG was reviewed by the Attending Physician. toño Vital Signs: 06:46 BP 142 / 96; Pulse 74; Resp 15 S; Pulse Ox 92% ; Weight 77.11 kg; Height 5 ft. 2 in. ; ha1 07:00 Temp 98; ha1 07:44 BP 140 / 94; Pulse 68; Resp 20; Pulse Ox 99% on 2 lpm NC; ph 09:17 BP 140 / 92; Pulse 63; Resp 18; Pulse Ox 100% on 2 lpm NC; ph 10:30 BP 138 / 94; Pulse 67; Resp 18; Pulse Ox 100% on 2 lpm NC; ph 11:36 BP 135 / 92; Pulse 66; Resp 18; Temp 98; Pulse Ox 99% on 2 lpm NC; ph 06:46 Body Mass Index 31.09 (77.11 kg, 157.48 cm) ha1 Lala Coma Score: 08:06 Eye Response: spontaneous(4). Motor Response: obeys commands(6). Verbal Response: toño oriented(5). Total: 15. MDM: 07:07 Patient medically screened. toño 08:46 Differential diagnosis: Anemia asthma, Bronchitis CHF exacerbation, Chronic Obstructive toño Pulmonary Disease gastritis, diverticulitis, pneumonia, Pneumothorax pulmonary edema, Pulmonary Embolism reactive airway disease, Sepsis Unstable Angina bowel obstruction, pancreatitis, urinary tract infection. Antibiotic administration: VANCO, FORTAZ PER JOHAN. Immunization status:. Data reviewed: vital signs, nurses notes, lab test result(s), cardiac enzymes, CBC, electrolytes, hepatic panel, EKG, radiologic studies. Consideration of Admission/Observation Patient was admitted/placed on observation. Escalation of care including admission/observation considered. I considered the following discharge prescriptions or medication management in the emergency department Medications were administered in the Emergency Department. See MAR. Independent interpretation of the following test(s) in the Emergency Department EKG: See my EKG interpretation above. Test considered but Not performed: Ultrasound NO ABDOMINAL USG. Historians other than the Patient: NONE PT ALONE. Care significantly affected by the following chronic conditions: Hypertension, Chronic Kidney Disease, ESRD ON HD, ASTHMA. Counseling: I had a detailed discussion with the patient and/or guardian regarding the historical points, exam findings, and any diagnostic results supporting the discharge/admit diagnosis, the presence of at least one elevated blood pressure reading (>120/80) during this emergency department visit, lab results, radiology results, the need for further work-up and treatment in the hospital. 02/05 06:52 Order name: Basic Metabolic Panel; Complete Time: 08:18 sp4 02/05 06:52 Order name: CBC with Diff; Complete Time: 07:56 sp4 02/05 06:52 Order name: LFT's; Complete Time: 08:18 sp4 02/05 06:52 Order name: Magnesium; Complete Time: 08:18 sp4 02/05 06:52 Order name: NT PRO-BNP; Complete Time: 08:18 sp4 02/05 06:52 Order name: PT-INR; Complete Time: 07:56 sp4 02/05 06:52 Order name: Troponin HS; Complete Time: 08:18 sp4 02/05 08:04 Order name: Blood Culture Adult (2) [facility] 02/05 10:07 Order name: Urinalysis w/ reflexes EDMD 02/05 10:07 Order name: Basic Metabolic Panel EDMS 02/05 10:07 Order name: Basic Metabolic Panel EDMS 02/05 10:07 Order name: CBC with Automated Diff EDMS 02/05 10:07 Order name: CBC with Automated Diff EDMS 02/05 06:52 Order name: XRAY Chest (1 view); Complete Time: 08:23 sp4 02/05 06:52 Order name: EKG; Complete Time: 06:53 sp4 02/05 10:07 Order name: Renal EDMS 02/05 06:52 Order name: Cardiac monitoring; Complete Time: 06:53 sp4 02/05 06:52 Order name: EKG - Nurse/Tech; Complete Time: 07:08 sp4 02/05 06:52 Order name: IV Saline Lock; Complete Time: 07:44 sp4 02/05 06:52 Order name: Labs collected and sent; Complete Time: 07:44 sp4 02/05 06:52 Order name: O2 Per Protocol; Complete Time: 06:53 sp4 02/05 06:52 Order name: O2 Sat Monitoring; Complete Time: 06:53 sp4 02/05 08:05 Order name: Wound dressing: dress catheter in place; Complete Time: 12:16 toño EC:50 Rate is 70 beats/min. Rhythm is regular. QRS [place] is Normal. TX interval is normal. QRS toño interval is normal. QT interval is prolonged at 522 msec. No Q waves. T waves are Normal. No ST changes noted. Clinical impression: NSR w/ Non-specific ST/T Changes and No evidence of ischemia. Interpreted by me. Reviewed by me. Administered Medications: 09:02 Drug: Ondansetron IVP 4 mg Route: IVP; Site: right hand; ph 12:16 Follow up: Response: No adverse reaction ph 09:02 Drug: Pantoprazole IVP 40 mg Route: IVP; Site: right hand; ph 12:16 Follow up: Response: No adverse reaction ph 09:03 Drug: cefTAZidime IVPB 1 grams Route: IVPB; Infused Over: 30 mins; Site: right hand; ph 09:33 Follow up: Response: No adverse reaction; IV Status: Completed infusion ph 09:55 Drug: vancoMYCIN IVPB 1 grams Route: IVPB; Infused Over: 2 hrs; Site: right hand; ph 12:17 Follow up: Response: No adverse reaction; IV Status: Completed infusion ph Disposition Summary: 02/05/23 08:27 Hospitalization Ordered Hospitalization Status: Inpatient Admission toño Provider: Alexandro Hanley cha Location: Telemetry/MedSurg (Inpatient) toño Condition: Fair toño Problem: new toño Symptoms: are unchanged toño Bed/Room Type: Standard toño Room Assignment: 205(02/05/23 11:17) rd2 Diagnosis - End stage renal disease - on HD, MISSED 3 SESSIONS toño - Acute pulmonary edema - ESRD, VOLUME OVERLOAD toño - Other complication of vascular dialysis catheter - PERM CATH, REMOVED, NON toño FUNCTIONAL - Hematemesis toño Forms: - Medication Reconciliation Form toño - SBAR form toño - Leadership Thank You Letter toño Signatures: Dispatcher [employer] Oscar Sparks MD MD cha Hall, Patricia, RN RN ph Ayala, Heidy, RN RN ha1 Yessy Dee RN RN rd2 Steven Block MD MD sp4 Corrections: (The following items were deleted from the chart) 11:17 08:27 toño rd2
--- NOTE | 2023-02-05 08:28 | ER ---
Nurse's Notes [facility] Name: Nely Quinones Age: 37 yrs Sex: Female : 1985 Arrival Date: 02/05/2023 Time: 06:29 Bed 15 Private MD: Diagnosis: End stage renal disease-on HD, MISSED 3 SESSIONS;Acute pulmonary edema-ESRD, VOLUME OVERLOAD;Other complication of vascular dialysis catheter-PERM CATH, REMOVED, NON FUNCTIONAL;Hematemesis Presentation: 02/05 06:46 Chief complaint: Patient states: I have not have dialysis for a week and I have been ha1 vomiting blood since yesterday. Also my dialysis port is loose. NO BLEEDING AT PORT SITE. 06:46 Coronavirus screen:. Ebola Screen: No symptoms or risks identified at this time. ha1 Initial Sepsis Screen: Does the patient meet any 2 criteria? No. Patient's initial sepsis screen is negative. Does the patient have a suspected source of infection? No. Patient's initial sepsis screen is negative. Risk Assessment: Do you want to hurt yourself or someone else? Patient reports no desire to harm self or others. Onset of symptoms was February 04, 2023. 06:46 Method Of Arrival: Ambulatory ha1 06:46 Acuity: LORENA 3 ha1 Triage Assessment: 06:46 General: Appears uncomfortable, Behavior is calm, cooperative. Pain: Complains of pain ha1 in abdomen Pain does not radiate. Pain currently is 10 out of 10 on a pain scale. Quality of pain is described as crampy, Pain began 1 day ago. EENT: No signs and/or symptoms were reported regarding the EENT system. Neuro: Level of Consciousness is awake, alert, obeys commands, Oriented to person, place, time, situation. Cardiovascular: Patient's skin is warm and dry. Respiratory: Airway is patent Respiratory effort is even, unlabored, Respiratory pattern is regular, symmetrical. GI: Abdomen is round non-distended, Bowel sounds present X 4 quads. Reports lower abdominal pain, nausea, VOMITING BLOOD. : No signs and/or symptoms were reported regarding the genitourinary system. Derm: Skin is diaphoretic, Skin is normal. Musculoskeletal: Circulation, motion, and sensation intact. Range of motion: intact in all extremities. Historical: - Allergies: 06:46 No Known Allergies; ha1 - PMHx: 06:46 Asthma; dialysis L arm access; Hypertensive disorder; RENAL FAILURE; ha1 - Immunization history:: Adult Immunizations not up to date. - Social history:: Smoking status: Patient denies any tobacco usage or history of. - Family history:: not pertinent. Screenin:06 [facility] ED Fall Risk Assessment (Adult) History of falling in the last 3 months, ph including since admission No falls in past 3 months (0 pts) Confusion or Disorientation No (0 pts) Intoxicated or Sedated No (0 pts) Impaired Gait No (0 pts) Mobility Assist Device Used No (0 pt) Altered Elimination No (0 pt) Score/Fall Risk Level 0 - 2 = Low Risk Oriented to surroundings, Maintained a safe environment, Hourly rounding (assess needs \T\ fall precautionary measures) done, Used ambulatory aids as needed (educated on \T\ assisted with). Abuse screen: Denies threats or abuse. Denies injuries from another. Nutritional screening: No deficits noted. Tuberculosis screening: No symptoms or risk factors identified. Assessment: 07:44 General: Appears in no apparent distress. Behavior is cooperative, drowsy, listless, ph quiet. Pain: Complains of pain in abdomen. Neuro: Level of Consciousness is lethargic, listless, Oriented to person, place. Cardiovascular: Capillary refill < 3 seconds in bilateral fingers Patient's skin is warm and dry. Cardiovascular: Dialysis shunt: in the left bicep, with palpable thrill, with auscultated bruit, with no erythema, with no edema, no bleeding noted. Cardiovascular: Dialysis shunt: in the anterior aspect of right upper chest, dressing loose. Respiratory: Airway is patent Respiratory effort is even, unlabored. GI: Abdomen is round Reports lower abdominal pain, upper abdominal pain. 08:12 Reassessment: Ca level - 6.9 per lab. ld1 09:16 Reassessment: Patient appears in no apparent distress at this time. Patient and/or ph family updated on plan of care and expected duration. Pain level reassessed. Dr Jessica at bedside to speak w/ pt, pt remains drowsy and slow to respond, pt to be dialyzed today using new fistula to ALICIA, dulce catheter to RU chest to remain in place in case new fistula does not function properly. 12:00 Reassessment: Report called to Tabatha YORK. ph Vital Signs: 06:46 BP 142 / 96; Pulse 74; Resp 15 S; Pulse Ox 92% ; Weight 77.11 kg; Height 5 ft. 2 in. ; ha1 07:00 Temp 98; ha1 07:44 BP 140 / 94; Pulse 68; Resp 20; Pulse Ox 99% on 2 lpm NC; ph 09:17 BP 140 / 92; Pulse 63; Resp 18; Pulse Ox 100% on 2 lpm NC; ph 10:30 BP 138 / 94; Pulse 67; Resp 18; Pulse Ox 100% on 2 lpm NC; ph 11:36 BP 135 / 92; Pulse 66; Resp 18; Temp 98; Pulse Ox 99% on 2 lpm NC; ph 06:46 Body Mass Index 31.09 (77.11 kg, 157.48 cm) ha1 Star Coma Score: 08:06 Eye Response: spontaneous(4). Motor Response: obeys commands(6). Verbal Response: toño oriented(5). Total: 15. ED Course: 06:30 Patient arrived in ED. [id number] 07:03 Triage completed. ha1 07:06 Matilda Silverio, CHELA is Primary Nurse. ph 07:07 Oscar Shultz MD is Attending Physician. toño 07:07 Patient has correct armband on for positive identification. Placed in gown. Bed in low ph position. Call light in reach. Side rails up X2. Client placed on continuous cardiac and pulse oximetry monitoring. NIBP monitoring applied. Door closed. Noise minimized. Warm blanket given. 07:07 Arm band placed on Patient placed in an exam room, on a stretcher. ph 07:35 Missed attempt(s): 22 gauge in right antecubital area. Bleeding controlled, band aid ph applied, catheter tip intact. Missed attempt(s): 22 gauge in right hand. Bleeding controlled, band aid applied, catheter tip intact. 07:43 Initial lab(s) drawn, by ED staff, sent to lab. Inserted saline lock: 22 gauge in right ph hand, using aseptic technique. Blood collected. 07:44 Basic Metabolic Panel Sent. ph 07:44 CBC with Diff Sent. ph 07:44 LFT's Sent. ph 07:44 Magnesium Sent. ph 07:44 NT PRO-BNP Sent. ph 07:44 PT-INR Sent. ph 07:44 Troponin HS Sent. ph 08:14 XRAY Chest (1 view) In Process Unspecified. EDMS 08:25 Alexandro Hanley MD is Hospitalizing Provider. toño 09:03 Blood Culture Adult (2) Sent. ph 12:18 No provider procedures requiring assistance completed. Patient admitted, IV remains in ph place. Administered Medications: 09:02 Drug: Ondansetron IVP 4 mg Route: IVP; Site: right hand; ph 12:16 Follow up: Response: No adverse reaction ph 09:02 Drug: Pantoprazole IVP 40 mg Route: IVP; Site: right hand; ph 12:16 Follow up: Response: No adverse reaction ph 09:03 Drug: cefTAZidime IVPB 1 grams Route: IVPB; Infused Over: 30 mins; Site: right hand; ph 09:33 Follow up: Response: No adverse reaction; IV Status: Completed infusion ph 09:55 Drug: vancoMYCIN IVPB 1 grams Route: IVPB; Infused Over: 2 hrs; Site: right hand; ph 12:17 Follow up: Response: No adverse reaction; IV Status: Completed infusion ph Medication: 07:07 VIS not applicable for this client. ph Outcome: 08:27 Decision to Hospitalize by Provider. toño 12:18 Admitted to Med/surg accompanied by tech, via wheelchair, room 205, with chart, Report ph called to Tabatha 12:18 Condition: stable 12:40 Patient left the ED. ll1 Signatures: Dispatcher [employer] EDKS Oscar Shultz MD MD cha Hall, Patricia RN Neal Kelsey ph, RN RN ll1 Mouna Diaz RN RN 1 Zahira Masters [id number] Tia Donald RN RN ha1
[2023-02-05] MEDS ORDERED: PANTOPRAZOLE 40 MG INJ ONE (08:45)
[2023-02-05] MEDS ORDERED: CEFTAZIDIME 1 GM VIAL ONE (08:45)
[2023-02-05] MEDS ORDERED: ONDANSETRON 4 MG/2 ML VIAL ONE ×2 (08:45→14:11)
[2023-02-05] MEDS ORDERED: NA CHLORIDE 0.9% 100 ML ONE (08:46)
[2023-02-05] MEDS ORDERED: NA CHLORIDE 0.9% 250 ML ONE (09:59)
[2023-02-05] MEDS ORDERED: VANCOMYCIN 1 GM/VIAL ONE (09:59)
[2023-02-05] MEDS ORDERED: FUROSEMIDE 40 MG/4 ML VIAL IV ONE (10:00)
[2023-02-05] MEDS ORDERED: EPOETIN ALFA-EPBX 4,000 UNIT/ML VIAL SQ ONE (10:00)
[2023-02-05] MEDS ORDERED: ACETAMINOPHEN 325 MG TABLET PO PRN (10:02)
[2023-02-05] MEDS ORDERED: ONDANSETRON 4 MG/2 ML VIAL IV PRN (10:02)
--- NOTE | 2023-02-05 11:58 | CON ---
History Of Present Illness: Patient is seen in emergency room in room 16. Patient is alert, but herrmann s seem to fall asleep easily. She is able to answer some questions. She is able to tell me that she is not having any difficulty with chest pain. She says her breathing is comfortable but not close t o baseline. She does seem to have some swelling in her lower extremities. She has not been dialyzed for about a week now. She has a catheter on the right IJ, but this catheter seems to be loose. Treasure cantu states that few days back she had pulled it while taking off her shirt and then had pushed it ba ck in. At this point, it is easily removable and she has got the catheter moving in and out easily a s it is not attached to the tunnel anymore. She does have an AV fistula in the left upper arm which is maturing at this point. On examination, actually looks to have a very good thrill and bruit and t he size of the fistula and my ability to palpate and evaluate seems to be pretty good as fistula seem s to be ready to be used. The patient other than that looks overall comfortable. Her blood pressure s are looking okay. She is going to be getting dialysis today that is the plan. Physical Examination: Vital Signs: Relatively stable. Her blood pressure was about 140/80, her pulse is about 70 and regu lar, respirations around 14 to 16 and comfortable. Lungs: With some crackles at the bases. Abdomen: Soft. Extremities: Revealed 1 to 2 edema bilaterally. Patient's right IJ catheter site does look somewhat with irritation, but does not have any significant drainage, maybe some just debris and the skin com ing off where she had folded. Her AV fistula in the left upper arm, seems to be with a good thrill a nd good bruit and easily palpable. Neurological: Patient is easily arousable, but does seem a littl e bit lethargic and answers questions slowly. Allergies: NKDA. Family History: Noncontributory. Social History: Patient counseled about compliance with dialysis. Is not able to give a very detail ed history as she is a bit lethargic and we have to redirect her to get answers. Does not smoke and does not use any drugs. Laboratory Data: On evaluation of her lab work, her labs show WBC of 8, hemoglobin of 9.5, hematocri t 27.5, platelet count of 211. Her chemistry shows sodium 134, potassium 4.2, chloride 102, bicarb i s 18, BUN is 112, creatinine is about 14.6, magnesium 3.3, calcium is 6.9, albumin is 3.3. Assessment And Plan: Patient under dialyzed at this point, has not had dialysis for some time, some volume overload. Her potassium seems reasonable. Her volume status seems to be slightly overloaded. X-ray also shows some congestion. The proBNP is about 9800. Albumin is low at 3.3, some of the th ird-spacing could be from that. However, the patient does seem to have edema and some congestion. A t this point, we will plan to dialyze her. We will attempt to use the left arm AV fistula. If the n urses are uncomfortable using that fistula or is unable to get a good blood flow, I would plan to jus t go with the catheter on the right side and use that today and then plan would be to get that cathet er out and get a new tunnel. Dr. Avilez has been consulted as well. In the meanwhile, we will give vancomycin and Fortaz and get blood cultures on the patient to see if there is any infection from th is catheter site as the patient had pulled it in and out and that is a high risk for infection. If A V fistula is workable and we are able to use it comfortably, plan would be to just get the catheter o ut and continue using the AV fistula going forward. We will also give the patient a dose of Lasix 80 mg IV now. We will give her a dose of Retacrit now subcu and also we will start her on ergocalcifer ol, vitamin D. /ADAM Voice ID: [id number] Report ID: [id number]
--- NOTE | 2023-02-05 12:48 | P.HP ---
Certification for Inpatient Patient admitted to: Inpatient With expected LOS: >2 Midnights Patient will require the following post-hospital care: None Practitioner: I am a practitioner with admitting privileges, knowledge of patient current condition, hospital course, and medical plan of care. Services: Services provided to patient in accordance with Admission requirements found in Title 42 Section 412.3 of the Code of Federal Regulations Patient History Date of Service: 02/05/23 Reason for admission: Missed dialysis, Pulm edema, dialysis catheter malfuntion. History of Present Illness: 37 y o female pt with hx of ESRD on HD TTS schedule, HTN, Anemia of renal disease, admitted for episode of missed dialysis since last seek . She had vague reasons for missing her dialysis but was noted to have dislodged dialysis catheter in the ED. She denies fever, chills, rigor, n/v, diarrhea. CXR showed pulmonary edema. She was asked to be seen by nephrology for dialysis needs management. She was subsequently admitted for inpt care. Allergies No Known Allergies Allergy (Verified 11/19/19 21:40) Home medications list reviewed: Yes Home Medications: Doxazosin Mesylate 1 tab PO BID #60 tab 05/12/22 Heparin [Heparin 1,000 units/mL *] 3,000 unit IV EVERY HD PRN vial 05/12/22 Mannitol 25% [Mannitol*] 12.5 gm IV EVERY HD PRN vial 05/12/22 Nifedipine Xl [Procardia Xl*] 90 mg PO DAILY #30 tab 05/12/22 Pantoprazole [Protonix Tab*] 40 mg PO DAILY #30 tab 05/12/22 Sevelamer Carbonate [Renvela*] 800 mg PO TIDWM #90 tab 05/12/22 Spironolactone [Aldactone] 50 mg PO DAILY #30 tablet 05/12/22 Vitamin D [Drisdol*] 50,000 unit PO Q7D@0900 #4 cap 05/12/22 Carbamide Peroxide [Debrox] 15 ml OT BID #3 bottle 09/18/22 Cefuroxime [Ceftin*] 250 mg PO Q24H #7 tab 09/18/22 Docusate [Colace Cap*] 100 mg PO BID #30 cap 09/18/22 Hydrocodone 5/APAP 325 [[place] 5/325*] 1 tab PO Q6H PRN #12 tab 04/08/23 Lidocaine 4% Patch [Lidoderm 5% Patch*] 1 patch TOP DAILY #7 pat 09/18/22 - Past Medical/Surgical History Diabetic: No -: HTN -: ESRD on HD (Dr. Monge) -: C Section -: Tubal Ligation Psychosocial/ Personal History: Patient lives at home with her 4 children. - Family History Father -: Hypertension Mother -: Heart disease - Social History Alcohol use: No CD- Drugs: No Caffeine use: No Review of Systems General: Weakness, Malaise Eyes: Unremarkable ENT: Unremarkable Respiratory: Unremarkable Cardiovascular: Unremarkable Gastrointestinal: Unremarkable Genitourinary: Unremarkable Musculoskeletal: Unremarkable Integumentary: Unremarkable Neurological: Unremarkable Physical Examination - Physical Exam General: Alert, Oriented x3 HEENT: Atraumatic, Normocephalic Respiratory: Normal air movement, Other (HD catheter in the right upper chest.) Cardiovascular: Regular rate/rhythm, Normal S1 S2 Gastrointestinal: Soft and benign Musculoskeletal: No swelling Neurological: Normal speech, Normal strength at 5/5 x4 extr - Studies Laboratory Data (last 24 hrs) 02/05/23 02/05/23 02/05/23 07:40 07:40 07:40 WBC 8.00 Hgb 9.5 L Hct 27.5 L Plt Count 211 PT 12.9 H INR 1.17 Sodium 134 L Potassium 4.2 BUN 112 H Creatinine 14.60 H Glucose 147 H Magnesium 3.3 H Total Bilirubin 0.5 AST 13 L ALT 13 Alkaline Phosphatase 82 Assessment and Plan - Plan ESRD: On HD as outpt but missed dialysis for unclear reasons. we will continue hemodialysis as per leather flesher recommendations. we will continue renal diet. Anemia: Hemoglobin is low at 9.5. we will continue epogen for anemia management. Hypertension: we will continue antihypertensive meds and vitals per unit protocol. Volume overload: CXR showed pulm edema due to missed dialysis sessions. we will do UF for volume management. Dialysis catheter malfunction: we will review as per nephrology recommendations. Prophylaxis: heparin for DVT. Code status: Full code. Disposition: we will administer dialysis and discharge her once she is deemed clinically stable for discharge home. - Advance Directives Does patient have a Living Will: No Does patient have a Durable POA for Healthcare: No
[2023-02-05 13:03] VITALS: TEMP 98
[2023-02-05 13:08] VITALS: BP 135/92; O2SAT 99
[2023-02-05] MEDS ORDERED: HYDROMORPHONE HCL 0.5 MG/0.5 ML INJ IV ONE ×2 (13:20→16:20)
--- NOTE | 2023-02-05 16:19 | P.SSS ---
Patient History Date of Service: 02/05/23 Reason for admission: Missed dialysis, Pulm edema, dialysis catheter malfuntion. History of Present Illness: 37 y o female pt with hx of ESRD on HD TTS schedule, HTN, Anemia of renal disease, admitted for episode of missed dialysis since last seek . She had vague reasons for missing her dialysis but was noted to have dislodged dialysis catheter in the ED. She denies fever, chills, rigor, n/v, diarrhea. CXR showed pulmonary edema. She was asked to be seen by nephrology for dialysis needs management. She was subsequently admitted for inpt care. Allergies No Known Allergies Allergy (Verified 11/19/19 21:40) Home Medications: Doxazosin Mesylate 1 tab PO BID #60 tab 05/12/22 Heparin [Heparin 1,000 units/mL *] 3,000 unit IV EVERY HD PRN vial 05/12/22 Mannitol 25% [Mannitol*] 12.5 gm IV EVERY HD PRN vial 05/12/22 Nifedipine Xl [Procardia Xl*] 90 mg PO DAILY #30 tab 05/12/22 Pantoprazole [Protonix Tab*] 40 mg PO DAILY #30 tab 05/12/22 Sevelamer Carbonate [Renvela*] 800 mg PO TIDWM #90 tab 05/12/22 Spironolactone [Aldactone] 50 mg PO DAILY #30 tablet 05/12/22 Vitamin D [Drisdol*] 50,000 unit PO Q7D@0900 #4 cap 05/12/22 Carbamide Peroxide [Debrox] 15 ml OT BID #3 bottle 09/18/22 Cefuroxime [Ceftin*] 250 mg PO Q24H #7 tab 09/18/22 Docusate [Colace Cap*] 100 mg PO BID #30 cap 09/18/22 Hydrocodone 5/APAP 325 [[place] 5/325*] 1 tab PO Q6H PRN #12 tab 09/18/22 Lidocaine 4% Patch [Lidoderm 5% Patch*] 1 patch TOP DAILY #7 pat 09/18/22 - Past Medical/Surgical History Diabetic: No -: HTN -: ESRD on HD (Dr. Monge) -: C Section -: Tubal Ligation Psychosocial/ Personal History: Patient lives at home with her 4 children. - Family History Father -: Hypertension Mother -: Heart disease - Social History Alcohol use: No CD- Drugs: No Caffeine use: No Physical Examination - Vital Signs Temperature: 98 F Blood Pressure: 135/92 Pulse: 66 Respirations: 18 - Physical Exam General: Alert, Oriented x3 HEENT: Atraumatic, Normocephalic Neck: Supple Respiratory: Normal air movement Cardiovascular: Regular rate/rhythm, Normal S1 S2 Gastrointestinal: Soft and benign Musculoskeletal: No swelling Neurological: Normal speech - Studies Laboratory Data (last 24 hrs) 02/05/23 02/05/23 02/05/23 07:40 07:40 07:40 WBC 8.00 Hgb 9.5 L Hct 27.5 L Plt Count 211 PT 12.9 H INR 1.17 Sodium 134 L Potassium 4.2 BUN 112 H Creatinine 14.60 H Glucose 147 H Magnesium 3.3 H Total Bilirubin 0.5 AST 13 L ALT 13 Alkaline Phosphatase 82 Treatment Summary: she completed dialysis and was evaluated by monkey breeder. she was deemed stable for dc to continue her outpt dialysis schedule and follow up with her treating monkey breeder. - Disposition Disposition: ROUTINE DISCHARGE Condition: GOOD Diet: Renal Activity: Ad corby
[2023-02-05] MEDS ORDERED: HEPARIN 5000 UNIT/ML 1 ML VIAL SQ SCH (17:00)
--- NOTE | 2023-02-06 15:07 | EKG ---
Test Date: 2023-02-05 Test Time: 07:05:32 [employer] Developer: ADI MEASUREMENT RESULTS: Intervals: Rate: 70 PA: 168 QRSD: 96 QT: 484 QTc: 522 [place]: P: 47 PA: 168 QRS: 51 T: 55 INTERPRETIVE STATEMENTS: Normal sinus rhythm Possible Left atrial enlargement Prolonged QT Abnormal ECG Compared to ECG 09/16/2022 03:40:50 Sinus bradycardia no longer present ST (T wave) deviation no longer present Electronically Signed On 02-06-23 15:05:21 CDT by Cristopher Kam
[2023-02-07 06:36] LABS: Hepatitis B Surface Ab - Quant > 1000.00 mIU/mL (<8.0); Hepatitis B surface AG Interp. Nonreactive (Nonreactive)
== END 2023-02-05 20:02 | disposition home or self-care (01) | DRG 698 ==
LOC: ER 06:29 → ERHOLD 10:04 → 2ND 12:01
PROVIDERS: ADMIT Internal Medicine Nephrology; ATTEND Internal Medicine Nephrology
PROC: 5A1D70Z Performance of Urinary Filtration, Intermittent, Less than 6 Hours Per Day (ICD-10-PCS; principal; 2023-02-05)
DX: T82.41XA Breakdown (mechanical) of vascular dialysis catheter, initial encounter (principal); J81.0 Acute pulmonary edema; N18.6 End stage renal disease; I12.0 Hypertensive chronic kidney disease with stage 5 chronic kidney disease or end stage renal disease; K92.0 Hematemesis; D63.1 Anemia in chronic kidney disease; J45.909 Unspecified asthma, uncomplicated; Z99.2 Dependence on renal dialysis; Z60.2 Problems related to living alone; Z98.51 Tubal ligation status; Z91.158 Patient's noncompliance with renal dialysis for other reason; Z79.899 Other long term (current) drug therapy; Y84.8 Other medical procedures as the cause of abnormal reaction of the patient, or of later complication, without mention of misadventure at the time of the procedure
CPT/HCPCS: 36415; 71045; 80048; 80076; 83735; 83880; 84484; 85025; 85610; 86706; 87040; 87340; 90935; 93005; 96365; 96366; 96367; 96375; 99285; C9113; J0713; J1170; J1940; J2405; J7050; Q5106

== ENCOUNTER 2023-11-15 22:18 | Emergency (ER) | payer OTHER ==
[2023-11-15 22:54] LABS: Absolute Eosinophils 0.1 K/uL (0-0.5); Absolute Lymphocytes (CBC) 1.3 K/uL (0.7-4.9); Absolute Monocytes 0.3 K/uL (0.1-1.3); Absolute Neutrophil 1.8 K/uL (1.8-8.0); Basophils % 1.4 % (0-1.3); Eosinophils % 3.8 % (0-4.4); Hemoglobin 10.1 g/dL (12.0-15.0); Lymphocytes % 36.1 % (15.3-44.8); MCH 24.6 pg (27.0-35.0); MCHC 32.6 g/dL (32.0-36.0); MCV 75.4 fL (80-100); MPV 8.4 fL (7.6-11.3); Monocytes % 8.7 % (3.3-12.3); Nucleated Red Blood Cells % 0.1 % (0-0); Platelets 279 thou/uL (152-406); RBC Red Blood Cell Count 4.11 M/uL (3.86-4.86); Red Cell Distribution Width 15.9 % (12.1-15.2)
[2023-11-15 23:08] LABS: Anion Gap 6.9 mEq/L (5.0-15.0)
[2023-11-15 23:11] LABS: Potassium 3.9 mEq/L (3.5-5.1)
[2023-11-15] MEDS ORDERED: NA CHLORIDE 0.9% 1,000 ML ONE (23:13)
--- NOTE | 2023-11-15 23:38 | ER ---
Nurse's Notes [facility] Name: Nely Quinones Age: 38 yrs Sex: Female : 1985 Arrival Date: 11/15/2023 Time: 22:18 Bed 3 Private MD: Diagnosis: Person with feared health complaint in whom no diagnosis is made Presentation: 11/14 22:23 Chief complaint: EMS states: patient reports she is dehydrated and with a cp4 "spirit baby" that she may have lost. Coronavirus screen: Client denies travel out of the [place] in the last 14 days. At this time, the client does not indicate any symptoms associated with coronavirus-19. Ebola Screen: Patient negative for fever greater than or equal to 101.5 degrees Fahrenheit, and additional compatible Ebola Virus Disease symptoms Patient denies exposure to infectious person. Patient denies travel to an Ebola-affected area in the 21 days before illness onset. No symptoms or risks identified at this time. Initial Sepsis Screen: Does the patient meet any 2 criteria? No. Patient's initial sepsis screen is negative. Does the patient have a suspected source of infection? No. Patient's initial sepsis screen is negative. Risk Assessment: Do you want to hurt yourself or someone else? Patient reports no desire to harm self or others. Onset of symptoms was November 15, 2023. 22:23 Method Of Arrival: EMS: [facility] cp4 22:23 Acuity: LORENA 3 cp4 Triage Assessment: 22:25 General: Appears in no apparent distress. Behavior is calm, cooperative, appropriate cp4 for age. Pain: Denies pain. NUT STEAMER: 22:25 unknown cp4 Historical: - Allergies: 22:25 Morphine; cp4 22:25 Hydrocodone-Acetaminophen; cp4 - Immunization history:: Adult Immunizations up to date. - Infectious Disease History:: Denies. CDIFF, C. Auris, ESBL, MRSA (w/in 1 year), VRE (w/in 1 year), TB, . - Social history:: Smoking status: unknown. Screenin:27 [facility] ED Fall Risk Assessment (Adult) History of falling in the last 3 months, cp4 including since admission No falls in past 3 months (0 pts) Confusion or Disorientation No (0 pts) Intoxicated or Sedated No (0 pts) Impaired Gait No (0 pts) Mobility Assist Device Used No (0 pt) Altered Elimination No (0 pt) Score/Fall Risk Level 0 - 2 = Low Risk Oriented to surroundings, Maintained a safe environment, Assessed \\T\\ reinforced patient's understanding of fall precautions, Hourly rounding (assess needs \\T\\ fall precautionary measures) done. Abuse screen: Denies threats or abuse. Nutritional screening: No deficits noted. Tuberculosis screening: No symptoms or risk factors identified. Assessment: 22:27 Reassessment: No changes from previously documented assessment. cp4 23:50 Reassessment: Patient states her name as Ashley Suero with a date of listed cp4 different than her ID bracelet. Registration stattes that the patient is indeed Nely Quinones. Patient did answer to [place] prior to blood draw. police with patient states that she is Nely Quinones. Charge nurse notified of situation. Vital Signs: 22:23 BP 110 / 76; Pulse 80; Resp 18; Temp 98; Pulse Ox 100% ; cp4 23:15 BP 112 / 79; Pulse 75; Resp 18; Pulse Ox 100% ; cp4 ED Course: 22:22 Patient arrived in ED. cp4 22:23 Andria Lucio is Primary Nurse. cp4 22:25 Triage completed. cp4 22:25 Jovanna Paulino F[facility]-C [facility]. kb 22:25 Steven Block MD is Attending Physician. kb 22:25 Arm band placed on right wrist. Patient placed in an exam room, on a stretcher. cp4 22:27 Bed in low position. Call light in reach. Side rails up X2. cp4 22:48 Basic Metabolic Panel Sent. cp4 22:48 CBC with Diff Sent. cp4 22:48 Test, Serum Sent. cp4 23:10 No provider procedures requiring assistance completed. Inserted saline lock: 22 gauge cp4 in right antecubital area, using aseptic technique. Blood collected. 23:53 Provided Education on: dehydration. cp4 23:53 intact, bleeding controlled, No redness/swelling at site. Pressure dressing applied. cp4 Administered Medications: 23:12 Drug: NS 0.9% IV 1000 ml IV at 1000 ml once Route: IV; Rate: 1000 ml; Site: right cp4 antecubital; Medication: 22:27 VIS not applicable for this client. cp4 Outcome: 23:37 Discharge ordered by MD. randle 23:53 Discharged to Law Enforcement cp4 23:53 Condition: stable 23:53 Discharge instructions given to patient, police, Instructed on discharge instructions, follow up and referral plans. Demonstrated understanding of instructions, follow-up care, 23:54 Patient left the ED. cp4 Signatures: Jovanna Paulino FNP-C FNP-Andria Maddox cp4 Corrections: (The following items were deleted from the chart) 22:27 22:25 Allergies: Hydrocodone-Acetaminophen; cp4 cp4 22:27 22:25 PMHx: Hypertensive disorder; cp4 cp4 22:27 22:25 PMHx: dialysis L arm access; cp4 cp4 22:27 22:25 PMHx: Asthma; cp4 cp4 22:27 22:25 PMHx: RENAL FAILURE; cp4 cp4
--- NOTE | 2023-11-15 23:38 | EDPHYS ---
Physician Documentation [facility] Name: Nely Quinones Age: 38 yrs Sex: Female : 1985 Arrival Date: 11/15/2023 Time: 22:18 Bed 3 Private MD: ED Physician Steven Block HPI: 11/14 22:48 This 38 yrs old Black Female presents to ER via EMS with complaints of Doesn't Feel kb Right. 22:53 Pt is a 38 year old female who presents for dehydration. States she doesn't have a kb place to stay so she has been walking outside a lot and believes she is dehydrated. States water does not hydrate her so she has been drinking a lot of soda. Also reports she has a "spirit baby" that she wants to check on. Denies abd pain, n/v/d. . 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 - Infectious Disease History:: Denies. CDIFF, C. Auris, ESBL, MRSA (w/in 1 year), VRE (w/in 1 year), TB, . - Social history:: Smoking status: unknown. ROS: 22:49 Constitutional: As per HPI kb Exam: 22:49 Constitutional: This is a well developed, well nourished patient who is awake, alert, kb and in no acute distress. Head/Face: Normocephalic, atraumatic. ENT: Moist Mucous membranes Cardiovascular: Regular rate Respiratory: Respirations even and unlabored. No increased work of breathing. Talking in full sentences Abdomen/GI: Soft, non-tender. No distention Skin: Warm, dry with normal turgor. Normal color. MS/ Extremity: Pulses equal, no cyanosis. Neurovascular intact. Full, normal range of motion. Neuro: Awake and alert, GCS 15, oriented to person, place, time, and situation. Moves all extremities. Normal gait. Vital Signs: 22:23 BP 110 / 76; Pulse 80; Resp 18; Temp 98; Pulse Ox 100% ; cp4 23:15 BP 112 / 79; Pulse 75; Resp 18; Pulse Ox 100% ; cp4 MDM: 22:25 Patient medically screened. kb 22:51 Differential Diagnosis abnormal electrolytes, dehydration. Data reviewed: vital signs, kb nurses notes. Historians other than the Patient: EMS: [facility]. 23:36 Counseling: I had a detailed discussion with the patient and/or guardian regarding the kb historical points, exam findings, and any diagnostic results supporting the discharge/admit diagnosis, lab results, the need for outpatient follow up, a family practitioner, to return to the emergency department if symptoms worsen or persist or if there are any questions or concerns that arise at home. 11/14 22:26 Order name: CBC with Diff; Complete Time: 22:55 kb 11/14 22:26 Order name: Basic Metabolic Panel; Complete Time: 23:28 kb 11/14 22:26 Order name: Test, Serum; Complete Time: 23:08 kb 11/14 22:26 Order name: IV Start; Complete Time: 23:12 kb Administered Medications: 23:12 Drug: NS 0.9% IV 1000 ml IV at 1000 ml once Route: IV; Rate: 1000 ml; Site: right cp4 antecubital; Disposition: 11/15 06:09 Co-signature as Attending Physician, Steven Block MD I agree with the assessment sp4 and plan of care. I reviewed the patient's care provided by Advanced Practice Provider \\T\\ agree w/ the diagnosis \\T\\ care plan. I personally saw the pt \\T\\ performed a substantive portion of the visit, incldng all aspects of the (History/Exam/Medical Decision Making). Disposition Summary: 11/15/23 23:37 Discharge Ordered Notes: Location: Law Enforcement kb Condition: Stable kb Diagnosis - Person with feared health complaint in whom no diagnosis is made kb Followup: kb - With: Emergency Department - When: As needed - Reason: Worsening of condition Followup: kb - With: Private Physician - When: 2 - 3 days - Reason: Recheck today's complaints, Continuance of care, Re-evaluation by your physician Discharge Instructions: - Discharge Summary Sheet kb - Rehydration, Adult kb Forms: - Medication Reconciliation Form kb - Antibiotic Education kb - Prescription Opioid Use kb - Patient Portal Instructions kb - Leadership Thank You Letter kb Signatures: Dispatcher [employer] Jovanna Whitmore FNP-C FNP-Steven Camejo MD MD sp4 Andria Lucio cp4 Corrections: (The following items were deleted from the chart) 11/14 22: 22:27 CBC+H.LAB.BRZ ordered. EDMS EDMS 22: 22:27 BASIC METABOLIC PANEL+C.LAB.BRZ ordered. EDMS EDMS : 22:27 TEST, SERUM+SC.LAB.BRZ ordered. EDMS EDMS : 22:25 Allergies: Hydrocodone-Acetaminophen; cp4 cp4 : 22:25 PMHx: Hypertensive disorder; cp4 cp4 : 22:25 PMHx: dialysis L arm access; cp4 cp4 : 22:25 PMHx: Asthma; cp4 cp4 22: 22:25 PMHx: RENAL FAILURE; cp4 cp4
[2023-11-16 00:58] VITALS: BP 112/79; TEMP 98; O2SAT 100
== END 2023-11-15 23:54 ==
LOC: ER 22:18
DX: Z71.1 Person with feared health complaint in whom no diagnosis is made (principal)
CPT/HCPCS: 85025; 80048; 36415; 84703; 99284; J7030

== ENCOUNTER 2024-01-16 00:51 | Inpatient (IN) | payer OTHER ==
[2024-01-16] MEDS ORDERED: PANTOPRAZOLE 40 MG INJ ONE (01:12)
[2024-01-16] MEDS ORDERED: ONDANSETRON 4 MG/2 ML VIAL ONE ×2 (01:12→06:05)
[2024-01-16] MEDS ORDERED: NA CHLORIDE 0.9% 250 ML ONE (01:13)
[2024-01-16] MEDS ORDERED: HYDRALAZINE HCL 20 MG/ML VIAL ONE ×2 (01:13→05:23)
[2024-01-16] MEDS ORDERED: FENTANYL CITR 100 MCG/2 ML ONE (02:11)
[2024-01-16 02:13] LABS: Absolute Basophils 0.1 K/uL (0-0.5); Absolute Eosinophils 0.1 K/uL (0-0.5); Absolute Monocytes 0.4 K/uL (0.1-1.3); Absolute Neutrophil 11.3 K/uL (1.8-8.0); Basophils % 0.7 % (0-1.3); Eosinophils % 1.1 % (0-4.4); Hematocrit 32.3 % (36.0-45.0); Hemoglobin 10.3 g/dL (12.0-15.0); Lymphocytes % 7.5 % (15.3-44.8); MCH 30.6 pg (27.0-35.0); MCHC 31.9 g/dL (32.0-36.0); Monocytes % 2.7 % (3.3-12.3); Nucleated Red Blood Cells % 0.1 % (0-0); Platelets 328 thou/uL (152-406); RBC Red Blood Cell Count 3.37 M/uL (3.86-4.86); Red Cell Distribution Width 16.6 % (12.1-15.2)
[2024-01-16 02:35] LABS: AST/SGOT 13 U/L (15-37); Albumin 3.7 g/dL (3.4-5.0); Alkaline Phosphatase 74 U/L (45-117); Anion Gap 13.9 mEq/L (5.0-15.0); BUN Blood Urea Nitrogen 45 mg/dL (7-18); Bicarbonate 20 mEq/L (21-32); Bilirubin Total 0.3 mg/dL (0.2-1.0); Globulin 3.7 g/dL (2.3-3.5); Glomerular Filtration Rate 4 ml/min (=/>90); Glucose Level 108 mg/dL (74-106); Lipase 30 U/L (13-75); NT PRO-BNP 22095 pg/mL (<125); Potassium 3.9 mEq/L (3.5-5.1); Protein, Total 7.4 g/dL (6.4-8.2); Sodium Level 136 mEq/L (136-145); Troponin High Sensitivity 57.6 pg/mL (<58.9)
[2024-01-16 02:52] LABS: ALT/SGPT < 14 U/L (13-56)
[2024-01-16 02:54] LABS: PT Prothrombin Time 12.9 SECONDS (9.4-12.5); Protime INR 1.16
[2024-01-16] MEDS ORDERED: METOCLOPRAMIDE 10 MG/2mL INJ ONE (03:50)
[2024-01-16] MEDS ORDERED: MORPHINE 2 MG/ML SYR ONE (03:51)
[2024-01-16 03:57] LABS: Band Neutrophils 4 % (0-1); Differential Total Cells Count 100; Eosinophils 1 % (0-3); Lymphocytes 5 % (15-42); Monocytes 3 % (0-10); Segmented Neutrophils 86 % (40-80)
[2024-01-16 03:58] LABS: Blood Morphology Comment NOT SEEN (NOT SEEN); Platelet Estimate ADEQ
[2024-01-16 04:00] LABS: Specific Gravity 1.017 (1.005-1.030); Sqamous Epithelial <5 /HPF (None Seen); Urine Bacteria None Seen /HPF (<20); Urine Bilirubin NEGATIVE (Negative); Urine Blood 2+ (Negative); Urine Clarity Turbid (Clear); Urine Color Light-Yellow (Yellow); Urine Culture Reflex Order REFLEXED; Urine Glucose NEGATIVE (Negative); Urine Ketones NEGATIVE (Negative); Urine Microscopic Reflex YN ORDER UMIC; Urine Nitrite NEGATIVE (Negative); Urine Protein 2+ (Negative); Urine RBC <5 /HPF (None Seen); Urine Urobilinogen Normal (Normal); Urine WBC 20-50 /HPF (<5)
[2024-01-16] MEDS ORDERED: FUROSEMIDE 40 MG/4 ML VIAL ONE (05:55)
[2024-01-16] MEDS ORDERED: FUROSEMIDE 20 MG/ 2ML VIAL ONE (05:55)
--- NOTE | 2024-01-16 06:20 | ER ---
Nurse's Notes [facility] Name: Nely Quinones Age: 38 yrs Sex: Female : 1985 Arrival Date: 01/16/2024 Time: 00:51 Bed 5 Private MD: Diagnosis: Acute pulmonary edema;Pulmonary edema, volume overload, noncompliance with dialysis, hypertensive urgency Presentation: 01/15 01:01 Chief complaint: Patient states: Missed last 2 dialysis now short of breath and vc1 vomiting blood. Coronavirus screen: Client denies travel out of the [place] in the last 14 days. At this time, the client does not indicate any symptoms associated with coronavirus-19. Ebola Screen: Patient negative for fever greater than or equal to 101.5 degrees Fahrenheit, and additional compatible Ebola Virus Disease symptoms Patient denies exposure to infectious person. Patient denies travel to an Ebola-affected area in the 21 days before illness onset. No symptoms or risks identified at this time. Initial Sepsis Screen: Does the patient meet any 2 criteria? No. Patient's initial sepsis screen is negative. Does the patient have a suspected source of infection? No. Patient's initial sepsis screen is negative. Risk Assessment: Do you want to hurt yourself or someone else? Patient reports no desire to harm self or others. Onset of symptoms was January 16, 2024. Care prior to arrival: None. Activity prior to arrival: vomiting. Mechanism of Injury: No Mechanism of Injury. Transition of care: patient was not received from another setting of care. 01:01 Method Of Arrival: Ambulatory vc1 01:01 Acuity: [place] 3 vc1 Triage Assessment: 01:06 General: Appears uncomfortable, slender, Behavior is crying, quiet, Smells of vc1 marijuana. Reports feeling ill for. Pain: Denies pain. EENT: No deficits noted. No signs and/or symptoms were reported regarding the EENT system. Neuro: Level of Consciousness is awake, alert, obeys commands, Oriented to person, place, time, situation, Appropriate for age. Cardiovascular: Capillary refill < 3 seconds Patient's skin is warm and dry. Respiratory: Airway is patent Respiratory effort is even, Respiratory pattern is symmetrical, tachypnea. Respiratory: Reports shortness of breath at rest. GI: Reports vomiting, vomiting blood. : No deficits noted. No signs and/or symptoms were reported regarding the genitourinary system. Derm: Skin is intact, Skin is dry, Skin is normal, Skin temperature is warm. Musculoskeletal: No deficits noted. No signs and/or symptoms reported regarding the musculoskeletal system. 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 - Infectious Disease History:: Denies. - Social history:: Smoking status: Patient denies any tobacco usage or history of. - Family history:: not pertinent. Screenin:05 [facility] ED Fall Risk Assessment (Adult) History of falling in the last 3 months, vc1 including since admission No falls in past 3 months (0 pts) Confusion or Disorientation No (0 pts) Intoxicated or Sedated No (0 pts) Impaired Gait No (0 pts) Mobility Assist Device Used No (0 pt) Altered Elimination Yes (1 pt) Score/Fall Risk Level 0 - 2 = Low Risk Oriented to surroundings, Maintained a safe environment, Educated pt \T\ family on fall prevention, incl call for assistance when getting out of bed. Abuse screen: Denies threats or abuse. Nutritional screening: No deficits noted. Tuberculosis screening: No symptoms or risk factors identified. Assessment: 01:15 General: Appears in no apparent distress. uncomfortable, Behavior is calm, cooperative, jw7 appropriate for age, Smells of marijuana. Pain: Complains of pain in generalized body Pain does not radiate. Pain currently is 7 out of 10 on a pain scale. Quality of pain is described as aching, Pain began suddenly, Is continuous. Neuro: Level of Consciousness is awake, alert, obeys commands, Oriented to person, place, time, situation, Appropriate for age. Cardiovascular: Heart tones S1 S2 present Capillary refill < 3 seconds Clubbing of nail beds is absent JVD is absent Patient's skin is warm and dry. Respiratory: Airway is patent Trachea midline Respiratory effort is even, unlabored, Respiratory pattern is regular, symmetrical. GI: Abdomen is flat, non-distended, Bowel sounds present X 4 quads. Abd is soft and non tender X 4 quads. : No deficits noted. No signs and/or symptoms were reported regarding the genitourinary system. EENT: No deficits noted. No signs and/or symptoms were reported regarding the EENT system. Derm: Skin is intact, is healthy with good turgor, Skin is dry, Skin is normal, Skin temperature is warm. Musculoskeletal: Circulation, motion, and sensation intact. Range of motion: intact in all extremities. 02:30 Reassessment: Patient appears in no apparent distress at this time. No changes from jw7 previously documented assessment. Patient and/or family updated on plan of care and expected duration. Pain level reassessed. Patient is alert, oriented x 3, equal unlabored respirations, skin warm/dry/pink. 03:30 General: C/O continued pain to abdomen, throat and back, as well as continued nausea jw7 and coughing up bright red blood. . 03:30 Reassessment: Patient appears in no apparent distress at this time. No changes from jw7 previously documented assessment. Patient and/or family updated on plan of care and expected duration. Pain level reassessed. Patient is alert, oriented x 3, equal unlabored respirations, skin warm/dry/pink. 04:30 Reassessment: Patient appears in no apparent distress at this time. No changes from jw7 previously documented assessment. Patient and/or family updated on plan of care and expected duration. Pain level reassessed. Patient is alert, oriented x 3, equal unlabored respirations, skin warm/dry/pink. 05:20 Reassessment: Patient appears in no apparent distress at this time. No changes from jw7 previously documented assessment. Patient and/or family updated on plan of care and expected duration. Pain level reassessed. Patient is alert, oriented x 3, equal unlabored respirations, skin warm/dry/pink. 06:30 Reassessment: Patient appears in no apparent distress at this time. No changes from jw7 previously documented assessment. Patient and/or family updated on plan of care and expected duration. Pain level reassessed. Patient is alert, oriented x 3, equal unlabored respirations, skin warm/dry/pink. 07:49 Reassessment: REPORT TO SHAKIRA YORK FOR ICU 3. bp Vital Signs: 01:01 BP 176 / 120; Pulse 93; Resp 24; Temp 97.4; Pulse Ox 92% ; Weight 68.04 kg; Height 5 vc1 ft. 2 in. ; 02:00 BP 160 / 110; Pulse 88; Resp 22 S; Pulse Ox 99% on 2 lpm NC; jw7 02:30 BP 150 / 101; Pulse 85; Resp 23 S; Pulse Ox 99% on 2 lpm NC; jw7 03:00 BP 183 / 118; Pulse 95; Resp 24 S; Pulse Ox 99% on 2 lpm NC; jw7 03:30 BP 182 / 119; Pulse 83; Resp 23 S; Pulse Ox 99% on 2 lpm NC; jw7 04:00 BP 164 / 111; Pulse 84; Resp 22 S; Pulse Ox 97% on 2 lpm NC; jw7 04:30 BP 151 / 110; Pulse 90; Resp 22 S; Pulse Ox 96% on 2 lpm NC; jw7 05:00 BP 165 / 115; Pulse 92; Resp 21 S; Pulse Ox 99% on 2 lpm NC; jw7 05:30 BP 157 / 107; Pulse 91; Resp 22 S; Pulse Ox 100% on 2 lpm NC; jw7 06:00 BP 151 / 80; Pulse 98; Resp 21 S; Pulse Ox 98% on 2 lpm NC; jw7 07:30 BP 157 / 85; Pulse 97; Resp 20; Pulse Ox 98% on 2 lpm NC; bp 01:01 Body Mass Index 27.44 (68.04 kg, 157.48 cm) vc1 [place] Coma Score: 05:37 Eye Response: spontaneous(4). Motor Response: obeys commands(6). Verbal Response: sp4 oriented(5). Total: 15. ED Course: 00:54 Patient arrived in ED. im 01:03 Triage completed. vc1 01:04 Steven Block MD is Attending Physician. sp4 01:05 Arm band placed on right wrist. vc1 01:06 Patient has correct armband on for positive identification. Bed in low position. Call vc1 light in reach. Pulse ox on. NIBP on. 01:25 Missed attempt(s): 22 gauge Bleeding controlled, band aid applied, catheter tip intact. ty 01:28 Missed attempt(s): 22 gauge Bleeding controlled, band aid applied, catheter tip intact. ty 01:40 Missed attempt(s): 20 gauge in right antecubital area. Bleeding controlled, band aid vc1 applied, catheter tip intact. 01:45 Missed attempt(s): 20 gauge in right forearm. Bleeding controlled, band aid applied, vc1 catheter tip intact. 02:02 Inserted saline lock: 24 gauge in right hand, using aseptic technique. Blood collected. vc1 02:02 Initial lab(s) drawn, by me, sent to lab. vc1 03:00 Chest Single View XRAY In Process Unspecified. EDMS 03:[address] Monge per Dr. 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 Underwood is on-call and will be contacted once Dr. Underwood is contacted. 04:[address] Crain office and spoke with receptionost who advised ty they will call back once Dr. Underwood answers. 06:18 Toby Neil MD is Hospitalizing Provider. sp4 07:46 Michele Yeager RN is Primary Nurse. bp 07:50 No provider procedures requiring assistance completed. Patient admitted, IV remains in bp place. Administered Medications: 06:46 Discontinued: pantoprazole8 mg/hr IV at 25 ml/hr continuous; (Standard dilution is 80 la1 mg in 250 mL NS) 02:04 Drug: Ondansetron IVP 4 mg IVP once; over 2 minutes Route: IVP; Site: right hand; jw7 04:01 Follow up: Response: No adverse reaction; No change in condition jw7 02:04 Drug: Pantoprazole IVP 80 mg IVP once Route: IVP; Site: right hand; jw7 04:02 Follow up: Response: No adverse reaction; Marked relief of symptoms jw7 02:04 Drug: hydrALAZINE IVP 10 mg IVP once Route: IVP; Site: right hand; jw7 04:02 Follow up: Response: No adverse reaction; No change in condition jw7 02:32 Drug: Pantoprazole IV 8 mg/hr IV at 25 ml/hr continuous; (Standard dilution is 80 mg in jw7 250 mL NS) Route: IV; Rate: 25 ml/hr; Site: right hand; 02:32 Drug: fentaNYL (PF) IVP 25 mcg IVP once Route: IVP; Site: right hand; jw7 04:02 Follow up: Response: No adverse reaction; No change in condition [facility] 03:58 Drug: metoCLOPramide IVP 10 mg IVP once; over 1 to 2 minutes Route: IVP; Site: right [facility] hand; 05:20 Follow up: Response: No adverse reaction; Marked relief of symptoms [facility] 03:58 Drug: morphine IVP or IV 2 mg IVP once over 4 mins Route: IVP; Infused Over: 4 mins; [facility] Site: right hand; 05:20 Follow up: Response: No adverse reaction; Marked relief of symptoms [facility] 05:28 Drug: hydrALAZINE IVP 10 mg IVP once Route: IVP; Site: right hand; [facility] 07:51 Follow up: Response: No adverse reaction bp 06:09 Drug: Furosemide IVP 60 mg IVP once; give over 2 minutes Route: IVP; Site: right hand; [facility] 07:51 Follow up: Response: No adverse reaction bp 06:10 Drug: Ondansetron IVP 4 mg IVP once; over 2 minutes Route: IVP; Site: right hand; [facility] 07:51 Follow up: Response: No adverse reaction bp Medication: 01:09 VIS not applicable for this client. vc1 Outcome: 06:19 Decision to Hospitalize by Provider. sp4 07:50 Admitted to ICU accompanied by tech, via wheelchair, room 3, Report called to SHAKIRA YORK bp 07:50 Condition: stable 07:50 Instructed on the need for admit, 08:06 Patient left the ED. bp Signatures: Dispatcher [employer] EDMichele Lombardi RN RN bp Tanna Rojas RN RN vc1 Inez Recinos RN RN jw7 Steven Block MD MD sp4 Susy Grayson Kelsey Maroul [place] Corrections: (The following items were deleted from the chart) 01:05 01:03 PMHx: None; vc1 vc1 01:05 01:03 PSHx: None; vc1 vc1
--- NOTE | 2024-01-16 06:20 | EDPHYS ---
Physician Documentation [facility] Name: Nely Quinones Age: 38 yrs Sex: Female : 1985 Arrival Date: 01/16/2024 Time: 00:51 Bed 5 Private MD: ED Physician Steven Block HPI: 01/15 03:51 This 38 yrs old Black Female presents to ER via Ambulatory with complaints of Vomiting sp4 - blood, Shortness Of Breath. 05:36 38-year-old female with history of end-stage renal disease on hemodialysis, sp4 hypertension, presented with complaint of vomiting, spitting up blood, and shortness of breath. 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 - Infectious Disease History:: Denies. - Social history:: Smoking status: Patient denies any tobacco usage or history of. - Family history:: not pertinent. ROS: 05:37 Constitutional: Negative for fever, chills, and weight loss, dyspnea, positive coughing sp4 up blood, positive 05:37 All other systems are negative, Exam: 05:37 Constitutional: This is a well developed, well nourished patient who is awake, alert, sp4 ill appearing, acutely dyspneic Head/Face: Normocephalic, atraumatic. Eyes: Pupils equal round and reactive to light, extra-ocular motions intact. Lids and lashes normal. Conjunctiva and sclera are not injected. Cornea within normal limits. Periorbital areas with no swelling, redness, or edema. ENT: Nares patent. No nasal discharge, no septal abnormalities noted. Tympanic membranes are normal and external auditory canals are clear. Oropharynx with no redness, swelling, or masses, exudates, or evidence of obstruction, uvula midline. Mucous membranes moist. Neck: Trachea midline, no thyromegaly or masses palpated, and no cervical lymphadenopathy. Supple, full range of motion without nuchal rigidity, or vertebral point tenderness. Chest/axilla: Normal chest wall appearance and motion. Nontender with no deformity. No lesions are appreciated. Cardiovascular: Regular rate and rhythm with a normal S1 and S2. No gallops, murmurs, or rubs. Normal PMI, no JVD. No pulse deficits. Respiratory: Lungs have equal breath sounds bilaterally, clear to auscultation and percussion. No rales, rhonchi or wheezes noted. No increased work of breathing, no retractions or nasal flaring. Abdomen/GI: Soft, with normal bowel sounds. No distension or tympany. No guarding or rebound. No evidence of tenderness throughout. Back: No spinal tenderness. No costovertebral tenderness. Skin: Warm, dry with normal turgor. Normal color with no rashes, no lesions, and no evidence of cellulitis. MS/ Extremity: Pulses equal, no cyanosis. Neurovascular intact. Full, normal range of motion. Neuro: Awake and alert, GCS 15, oriented to person, place, time, and situation. Cranial nerves II-XII grossly intact. Motor strength 5/5 in all extremities. Sensory grossly intact. Psych: Awake, alert, with orientation to person, place and time. Behavior, mood, and affect are within normal limits Vital Signs: 01:01 BP 176 / 120; Pulse 93; Resp 24; Temp 97.4; Pulse Ox 92% ; Weight 68.04 kg; Height 5 vc1 ft. 2 in. ; 02:00 BP 160 / 110; Pulse 88; Resp 22 S; Pulse Ox 99% on 2 lpm NC; jw7 02:30 BP 150 / 101; Pulse 85; Resp 23 S; Pulse Ox 99% on 2 lpm NC; jw7 03:00 BP 183 / 118; Pulse 95; Resp 24 S; Pulse Ox 99% on 2 lpm NC; jw7 03:30 BP 182 / 119; Pulse 83; Resp 23 S; Pulse Ox 99% on 2 lpm NC; jw7 04:00 BP 164 / 111; Pulse 84; Resp 22 S; Pulse Ox 97% on 2 lpm NC; jw7 04:30 BP 151 / 110; Pulse 90; Resp 22 S; Pulse Ox 96% on 2 lpm NC; jw7 05:00 BP 165 / 115; Pulse 92; Resp 21 S; Pulse Ox 99% on 2 lpm NC; jw7 05:30 BP 157 / 107; Pulse 91; Resp 22 S; Pulse Ox 100% on 2 lpm NC; jw7 06:00 BP 151 / 80; Pulse 98; Resp 21 S; Pulse Ox 98% on 2 lpm NC; jw7 07:30 BP 157 / 85; Pulse 97; Resp 20; Pulse Ox 98% on 2 lpm NC; bp 01:01 Body Mass Index 27.44 (68.04 kg, 157.48 cm) vc1 [place] Coma Score: 05:37 Eye Response: spontaneous(4). Motor Response: obeys commands(6). Verbal Response: sp4 oriented(5). Total: 15. MDM: 01:04 Patient medically screened. sp4 03:51 ED course: EXAM DESCRIPTION: XR Chest 1 View 01/16/2024 3:07 AM CDT CLINICAL HISTORY: 38 sp4 years, Female, Chest pain. COMPARISON: XR Chest 2 views 07/23/2023. FINDINGS: 1 [frontal] view of the chest was obtained. No prior films are available at this time for comparison. There is normal lung volume. Mediastinum: The cardiomediastinal silhouette appears normal in size and shape. Lungs: There is diffuse bilateral patchy/alveolar areas of airspace opacity throughout both lung workman possibility of viral pneumonia, atypical pneumonia, alveolar pulmonary edema could be of consideration. Heart: The heart is prominent. Thoracic aorta: The thoracic aorta demonstrate to be mildly tortuous. Pulmonary vasculature: The pulmonary vasculature is normal in distribution. Pleura: The costophrenic angles demonstrate to be sharp. Osseous structures: The bony structures demonstrate to be within normal limits. Other: None. IMPRESSION: Diffuse bilateral patchy/alveolar areas of airspace opacity throughout both lung workman. Cardiomegaly. Electronically signed by: Good Shetty MD 01/16/2024 03:14 AM. 05:17 ED course: Spoke with Dr. Yasmine Martines who has agreed to dialyze patient in the hospital sp4 this morning. . 05:37 Differential diagnosis: Nonspecific abd pain, gastritis, viral gastroenteritis, sp4 gastroenteritis. Data reviewed: vital signs, nurses notes, lab test result(s), radiologic studies, plain films. Consideration of Admission/Observation Escalation of care including admission/observation considered. ED course: Was discussed with refrigeration supervisor will put in admit orders. Stable for admission.. 01/15 01:05 Order name: CBC with Diff; Complete Time: 05:15 sp4 01/15 01:05 Order name: CMP; Complete Time: 03:48 sp4 01/15 01:05 Order name: Lipase; Complete Time: 03:48 sp4 01/15 01:05 Order name: Urinalysis w/ reflexes; Complete Time: 05:15 sp4 01/15 01:06 Order name: BNP; Complete Time: 03:48 sp4 01/15 01:06 Order name: Troponin High Sensitivity; Complete Time: 03:48 sp4 01/15 01:06 Order name: PT-INR; Complete Time: 03:48 sp4 01/15 02:20 Order name: Manual Differential; Complete Time: 05:15 EDMS 01/15 04:07 Order name: Urine Culture EDMS 01/15 02:21 Order name: Chest Single View XRAY sp4 01/15 01:05 Order name: IV Saline Lock; Complete Time: 02:04 sp4 01/15 01:05 Order name: Labs collected and sent; Complete Time: 02:04 sp4 Administered Medications: 06:46 Discontinued: pantoprazole8 mg/hr IV at 25 ml/hr continuous; (Standard dilution is 80 la1 mg in 250 mL NS) 02:04 Drug: Ondansetron IVP 4 mg IVP once; over 2 minutes Route: IVP; Site: right hand; jw7 04:01 Follow up: Response: No adverse reaction; No change in condition jw7 02:04 Drug: Pantoprazole IVP 80 mg IVP once Route: IVP; Site: right hand; jw7 04:02 Follow up: Response: No adverse reaction; Marked relief of symptoms jw7 02:04 Drug: hydrALAZINE IVP 10 mg IVP once Route: IVP; Site: right hand; jw7 04:02 Follow up: Response: No adverse reaction; No change in condition jw7 02:32 Drug: Pantoprazole IV 8 mg/hr IV at 25 ml/hr continuous; (Standard dilution is 80 mg in jw7 250 mL NS) Route: IV; Rate: 25 ml/hr; Site: right hand; 02:32 Drug: fentaNYL (PF) IVP 25 mcg IVP once Route: IVP; Site: right hand; [facility] 04:02 Follow up: Response: No adverse reaction; No change in condition [facility] 03:58 Drug: metoCLOPramide IVP 10 mg IVP once; over 1 to 2 minutes Route: IVP; Site: right [facility] hand; 05:20 Follow up: Response: No adverse reaction; Marked relief of symptoms [facility] 03:58 Drug: morphine IVP or IV 2 mg IVP once over 4 mins Route: IVP; Infused Over: 4 mins; [facility] Site: right hand; 05:20 Follow up: Response: No adverse reaction; Marked relief of symptoms [facility] 05:28 Drug: hydrALAZINE IVP 10 mg IVP once Route: IVP; Site: right hand; jw 07:51 Follow up: Response: No adverse reaction bp 06:09 Drug: Furosemide IVP 60 mg IVP once; give over 2 minutes Route: IVP; Site: right hand; jw 07:51 Follow up: Response: No adverse reaction bp 06:10 Drug: Ondansetron IVP 4 mg IVP once; over 2 minutes Route: IVP; Site: right hand; jw 07:51 Follow up: Response: No adverse reaction bp Disposition Summary: 01/16/24 06:19 Hospitalization Ordered Notes: Hospitalization Status: Inpatient Admission sp4 Provider: Toby Neil Condition: Fair sp4 Problem: new sp4 Symptoms: have improved sp4 Bed/Room Type: Standard sp4 Location: Intensive Care Unit(01/16/24 06:32) Room Assignment: 3-(01/16/24 06:32) Diagnosis - Acute pulmonary edema sp4 - Pulmonary edema, volume overload, noncompliance with dialysis, hypertensive urgency sp4 Forms: - Medication Reconciliation Form sp4 - SBAR form sp4 - Leadership Thank You Letter sp4 Signatures: Dispatcher [employer] Leticia Machado RN RN cg Tanna Rojas RN RN vc1 Inez Recinos RN RN jw7 Steven Block MD MD sp4 Michele Yeager RN bp Corrections: (The following items were deleted from the chart) 01:05 01:03 PMHx: None; vc1 vc1 01:05 01:03 PSHx: None; vc1 vc1 02:20 01:06 TYPE AND SCREEN+BB.LAB.BRZ ordered. EDMS EDMS 06:32 06:19 Telemetry/MedSurg (Inpatient) sp4 cg :32 06:19 sp4 cg
[2024-01-16] MEDS ORDERED: SODIUM CHLORIDE 0.9% 10ML INJ IV PRN (07:43)
[2024-01-16] MEDS ORDERED: ACETAMINOPHEN 325 MG TABLET PO PRN (07:43)
--- NOTE | 2024-01-16 08:04 | P.HP ---
Certification for Inpatient Patient admitted to: Inpatient With expected LOS: >2 Midnights Patient will require the following post-hospital care: None Practitioner: I am a practitioner with admitting privileges, knowledge of patient current condition, hospital course, and medical plan of care. Services: Services provided to patient in accordance with Admission requirements found in Title 42 Section 412.3 of the Code of Federal Regulations Patient History Date of Service: 01/16/24 Reason for admission: ESRD, pulmonary edema History of Present Illness: 38-year-old female with history of ESRD on HD MWF, hypertension, anemia presents emergency department with chief complaint of dyspnea, coughing up blood. She reports that she last went to dialysis on Tuesday although she did miss Tuesday and Tuesday from last week, last night she began feeling short of breath leading to an episode of coughing/coughing up bright red blood. Patient was evaluated in the emergency department her labs are significant for a creatinine of 11.8 GFR 4 BUN of 45 potassium 3.9 bicarb 20 BNP 22,095 with blood segmental 0.9 hemoglobin 10.3 hematocrit 32.3. She was mildly dyspneic with room air sats are 92% as well as hypertensive with systolic blood pressure in the 180s and diastolic in the 120s. ED physician discussed case with nephrology recommended IV Lasix and will arrange for dialysis. Allergies No Known Allergies Allergy (Verified 11/19/19 21:40) Home Medications: Sevelamer Carbonate [Renvela*] 800 mg PO TIDWM #90 tab 05/12/22 Furosemide [Lasix] 80 mg PO BID 05/29/23 Lisinopril [Zestril] 40 mg PO DAILY 05/29/23 Oxycodone HCl/Acetaminophen [Percocet 5-325 mg Tablet] 1 each PO Q8HR 3 Days #9 05/31/23 - Past Medical/Surgical History Diabetic: No -: HTN -: ESRD on HD (Dr. Monge) M/W/F -: asthma -: Anemia -: C Section -: Tubal Ligation Psychosocial/ Personal History: Patient lives at home with her 4 children. - Family History Father -: Hypertension Mother -: Heart disease - Social History Alcohol use: No CD- Drugs: No Caffeine use: No Place of Residence: Home Review of Systems 10-point ROS is otherwise unremarkable Respiratory: Shortness of Breath, Hemoptysis, SOB with Excertion Gastrointestinal: Nausea, Abdominal Pain Physical Examination - Physical Exam General: Alert, In no apparent distress, Oriented x3 HEENT: Atraumatic, PERRLA, EOMI Neck: Supple, 2+ carotid pulse no bruit, No LAD Respiratory: Diminished, Crackles/rales Cardiovascular: Regular rate/rhythm, Normal S1 S2 Gastrointestinal: Normal bowel sounds, No tenderness Musculoskeletal: No tenderness Integumentary: No rashes Neurological: Normal gait, Normal speech, Normal strength at 5/5 x4 extr, Normal tone - Studies Laboratory Data (last 24 hrs) 01/16/24 01/16/24 01/16/24 01:57 01:57 01:57 WBC 12.90 H Hgb 10.3 L Hct 32.3 L Plt Count 328 PT 12.9 H INR 1.16 Sodium 136 Potassium 3.9 BUN 45 H Creatinine 11.80 H Glucose 108 H Total Bilirubin 0.3 AST 13 L ALT < 14 Alkaline Phosphatase 74 Lipase 30 Assessment and Plan - Plan Assessment: ESRD on HD MWF with overload/acute pulmonary edema/hemoptysis Uncontrolled hypertension Anemia of chronic disease Asthma Plan: ESRD on HD MWF with overload/acute pulmonary edema/hemoptysis Uncontrolled hypertension Nephrology contacted while patient was in the ED will arrange for inpatient dialysis Patient did go to dialysis on Tuesday but had missed Tuesday and Tuesday Given IV diuretics in ED As needed nasal cannula oxygen Likely to require multiple dialysis sessions inpatient Appreciate further input of nephrology Resume home medications when verified Story most consistent with hemoptysis secondary to acute pulmonary edema versus upper GI bleed-continue daily PPI and monitor H&H Anemia of chronic disease Monitor H&H daily Asthma As needed nebulizer treatments DVT PPX: SCDs for now until hemoptysis clears Code status: Full Discharge Plan: Home Plan to discharge in: 48 Hours - Advance Directives Does patient have a Living Will: No Does patient have a Durable POA for Healthcare: No - Code Status/Comfort Care Code Status Assessed: Yes (Full code) Critical Care: No Time Spent Managing Pts Care (In Minutes): 70
[2024-01-16] MEDS: PROMETHAZINE INJ 25 MG/ML AMP IV PRN (08:42)
[2024-01-16] MEDS: FENTANYL CITR 100 MCG/2 ML IV PRN (08:43)
[2024-01-16] MEDS: PANTOPRAZOLE 40 MG INJ IVP SCH (09:00)
--- NOTE | 2024-01-16 12:39 | RAD REPORT ---
EXAM DESCRIPTION: RAD - Chest Single View - 01/16/2024 2:58 am CLINICAL HISTORY: 38 years, Female, Chest pain. COMPARISON: XR Chest 2 views 07/23/2023. FINDINGS: 1 frontal view of the chest was obtained. No prior films are available at this time for comparison. There is normal lung volume. Mediastinum: The cardiomediastinal silhouette appears normal in size and shape. Lungs: There is diffuse bilateral patchy/alveolar areas of airspace opacity throughout both lung fiel ds possibility of viral pneumonia, atypical pneumonia, alveolar pulmonary edema could be of considera tion. Heart: The heart is prominent. Thoracic aorta: The thoracic aorta demonstrate to be mildly tortuous. Pulmonary vasculature: The pulmonary vasculature is normal in distribution. Pleura: The costophrenic angles demonstrate to be sharp. Osseous structures: The bony structures demonstrate to be within normal limits. Other: None. IMPRESSION: Diffuse bilateral patchy/alveolar areas of airspace opacity throughout both lung workman. Cardiomegaly. Electronically signed by: Good Shetty MD 01/16/2024 03:14 AM CDT Due to temporary technical issues with the PACS/Fluency reporting system, reports are being signed by the in house radiologist without review as a courtesy to ensure prompt reporting. The interpreting r adiologist is fully responsible for the content of the report.
[2024-01-16 13:26] LABS: Hemoglobin 12.1 g/dL (12.0-15.0)
[2024-01-16] MEDS: HYDRALAZINE HCL 20 MG/ML VIAL IV PRN (17:02)
[2024-01-16] MEDS: SEVELAMER CARBONATE 800 MG TABLET PO SCH (17:02)
[2024-01-16] MEDS: TRAMADOL HCL 50 MG TAB PO PRN (19:20)
[2024-01-16] MEDS: ONDANSETRON 4 MG/2 ML VIAL IV PRN (19:20)
[2024-01-16] MEDS: DOXAZOSIN 4 MG TAB PO SCH (20:59)
[2024-01-16] MEDS: atenoloL 25 MG TAB PO SCH (21:00)
[2024-01-16] MEDS: FUROSEMIDE 40 MG TABLET PO SCH (21:00)
--- NOTE | 2024-01-16 21:14 | P.CNS ---
Date of Consult: 01/16/24 Reason for Consult: ESRD Requesting Physician: Toby Neil Chief Complaint: ESRD, pulmonary edema History of Present Illness: 38-year-old female with history of ESRD on HD MWF, hypertension, anemia presents emergency department with chief complaint of dyspnea, coughing up blood. She reports that she last went to dialysis on Tuesday although she did miss Tuesday and Tuesday from last week, last night she began feeling short of breath leading to an episode of coughing/coughing up bright red blood. Patient was evaluated in the emergency department her labs are significant for a creatinine of 11.8 GFR 4 BUN of 45 potassium 3.9 bicarb 20 BNP 22,095 with blood segmental 0.9 hemoglobin 10.3 hematocrit 32.3. She was mildly dyspneic with room air sats are 92% as well as hypertensive with systolic blood pressure in the 180s and diastolic in the 120s. ED physician discussed case with nephrology recommended IV Lasix and will arrange for dialysis. [id number] 03:51 This 38 yrs old Black Female presents to ER via Ambulatory with complaints of Vomiting sp4 - blood, Shortness Of Breath. 05:36 38-year-old female with history of end-stage renal disease on hemodialysis, sp4 hypertension, presented with complaint of vomiting, spitting up blood, and shortness of breath. 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 Monge) M/W/F -: Asthma -: Anemia -: C Section -: Tubal Ligation Psychosocial/ Personal History: Patient lives at home with her 4 children. - Family History Father Medical History: Hypertension Mother Medical History: Heart disease - Social History Smoking Status: Unknown if ever smoked Alcohol use: No CD- Drugs: No Caffeine use: No Place of Residence: Home Review of Systems 10-point ROS is otherwise unremarkable General: Sweats, Weakness, Malaise Respiratory: SOB with Excertion Physical Examination Temp Pulse Resp BP Pulse Ox 99.1 F 101 H 30 H 150/89 H 98 01/16/24 20:00 01/16/24 21:00 01/16/24 20:00 01/16/24 21:00 01/16/24 20:00 General: Oriented x3, Cooperative HEENT: Atraumatic Neck: Supple Respiratory: Normal air movement Cardiovascular: Regular rate/rhythm Gastrointestinal: Soft and benign, No guarding Musculoskeletal: No clubbing, No contractures Integumentary: No rashes, No cyanosis Neurological: Normal speech Laboratory Data (last 24 hrs) 01/16/24 01/16/24 01/16/24 01:57 01:57 01:57 WBC 12.90 H Hgb 10.3 L Hct 32.3 L Plt Count 328 PT 12.9 H INR 1.16 Sodium 136 Potassium 3.9 BUN 45 H Creatinine 11.80 H Glucose 108 H Total Bilirubin 0.3 AST 13 L ALT < 14 Alkaline Phosphatase 74 Lipase 30 Imagings Data: [id number] EXAM DESCRIPTION: RAD - Chest Single View - 01/16/2024 2:58 am CLINICAL HISTORY: 38 years, Female, Chest pain. COMPARISON: XR Chest 2 views 07/23/2023. FINDINGS: 1 frontal view of the chest was obtained. No prior films are available at this time for comparison. There is normal lung volume. Mediastinum: The cardiomediastinal silhouette appears normal in size and shape. Lungs: There is diffuse bilateral patchy/alveolar areas of airspace opacity throughout both lung workman possibility of viral pneumonia, atypical pneumonia, alveolar pulmonary edema could be of consideration. Heart: The heart is prominent. Thoracic aorta: The thoracic aorta demonstrate to be mildly tortuous. Pulmonary vasculature: The pulmonary vasculature is normal in distribution. Pleura: The costophrenic angles demonstrate to be sharp. Osseous structures: The bony structures demonstrate to be within normal limits. Other: None. IMPRESSION: Diffuse bilateral patchy/alveolar areas of airspace opacity throughout both lung workman. Cardiomegaly. [facility] LEFT VENTRICULAR WALL MOTION: NORMAL DOPPLER/COLOR FLOW: SEE BELOW COMMENTS: 1. NORMAL LEFT VENTRICULAR EJECTION FRACTION 55-60% WITH NORMAL WALL MOTION. 2. MODERATE CONCENTRIC LEFT VENTRICULAR HYPERTROPHY 3. SEVERE TRICUSPID REGURGITATION 4. MODERATE TO SEVERE MITRAL REGURGITATION 5. LEFT ATRIAL ENLARGEMENT 6. MODERATE PULMONIC INSUFFICIENCY AND MILD AORTIC INSUFFICIENCY 7. SEVERE PULMONARY HYPERTENSION WITH RIGHT VENTRICULAR SYSTOLIC PRESSURE GREATER THAN 80 mmHg Conclusions/Impression: Admitted through the ER for dyspnea and hemoptysis in the setting of missed HD. ESRD on HD Proteinuria Acidosis -Acute HD as ordered -Renal diet HTN with CKD/ CHF -Continue Atenolol and Doxazosin -Continue Lisinopril Diastolic CHF, A/C Severe TR & MR Pulmonary HTN -HD with UF -Low sodium diet Anemia in CKD -Retacrit PRN CKD MBD -Continue Renvela -Start Calcitriol Hospitalist and ER notes reviewed Thank you kindly for the consultation
[2024-01-17 06:05] LABS: Potassium 4.2 mEq/L (3.5-5.1)
[2024-01-17 06:10] LABS: Anion Gap 12.2 mEq/L (5.0-15.0); Magnesium 2.4 mg/dL (1.6-2.4)
[2024-01-17 07:04] LABS: Phosphorus 4.1 mg/dL (2.5-4.9)
[2024-01-17 07:20] LABS: Absolute Basophils 0.1 K/uL (0-0.5); Absolute Eosinophils 0.3 K/uL (0-0.5); Absolute Lymphocytes (CBC) 1.6 K/uL (0.7-4.9); Absolute Monocytes 0.5 K/uL (0.1-1.3); Absolute Neutrophil 4.9 K/uL (1.8-8.0); Basophils % 1.3 % (0-1.3); Eosinophils % 3.8 % (0-4.4); Hemoglobin 13.1 g/dL (12.0-15.0); Lymphocytes % 21.8 % (15.3-44.8); MCH 30.3 pg (27.0-35.0); MCHC 31.9 g/dL (32.0-36.0); MCV 95.1 fL (80-100); MPV 8.4 fL (7.6-11.3); Monocytes % 6.5 % (3.3-12.3); Neutrophils % 66.6 % (41.7-73.7); Nucleated Red Blood Cells % 0.1 % (0-0); Platelets 291 thou/uL (152-406); RBC Red Blood Cell Count 4.31 M/uL (3.86-4.86); Red Cell Distribution Width 16.5 % (12.1-15.2)
[2024-01-17] MEDS: CALCITROL 0.25 MCG CAP PO SCH (08:24)
[2024-01-17] MEDS: lisinopriL 20 MG TAB PO SCH (08:24)
[2024-01-17 08:37] VITALS: BMI 27.1
[2024-01-17 12:00] VITALS: BP 115/72; TEMP 98.4; O2SAT 98
--- NOTE | 2024-01-17 12:28 | P.DS ---
Admission Date: 01/16/24 Discharge Date: 01/17/24 Disposition: ROUTINE DISCHARGE Discharge Condition: FAIR Reason for Admission: ESRD, pulmonary edema Brief History of Present Illness: Diagnosis ESRD on HD MWF with overload/acute pulmonary edema/hemoptysis proteinuria Metabolic acidosis Hypertension with CKD/CHF Pulmonary hypertension Severe TR and MR Anemia chronic disease Asthma Uncontrolled hypertension HPI 01/16/2024 Nely Quinones is a 38-year-old female with history of ESRD on HD MWF, hypertension, anemia presents emergency department with chief complaint of dyspnea, coughing up blood. She reports that she last went to dialysis on Tuesday although she did miss Tuesday and Tuesday from last week, last night she began feeling short of breath leading to an episode of coughing/coughing up bright red blood. Patient was evaluated in the emergency department her labs are significant for a creatinine of 11.8 GFR 4 BUN of 45 potassium 3.9 bicarb 20 BNP 22,095 with blood segmental 0.9 hemoglobin 10.3 hematocrit 32.3. She was mildly dyspneic with room air sats are 92% as well as hypertensive with systolic blood pressure in the 180s and diastolic in the 120s. ED physician discussed case with nephrology recommended IV Lasix and will arrange for dialysis. Hospital Course: Nely Quinones is a pleasant 38 year old female with a past medical history significant for ESRD on HD MWF, hypertension, anemia, pulmonary HTN, diastolic CHF, sever MR/TR who was admitted to the [facility] on 01/16/24 for dyspnea and coughing up blood. Nely presented to the ED with fluid volume overload and hypertensive. Story most consistent with hemoptysis secondary to acute pulmonary edema vs GI bleed. She had dialysis resulting with some cramping from the large volume of output. She refused a second day of dialysis due to her uncomfortable cramping. Her blood pressure regulated and she felt better. She decided to continue dialysis on her regular schedule. Dr. Monge cleared her for discharge. She is tolerating PO diet, she denies hemoptysis, and is hemodynamically stable for discharge. On 01/17/24, Nely was seen on morning rounds and deemed medically stable for discharge. Nely was discharged with instructions to schedule follow-up appointments with PCP and Dr. Monge. Nely was provided prescriptions for calcitrol, norco, and protonix. Physical Exam General: Alert and Oriented x3, NAD HEENT: Atraumatic, PERRLA, EOMI Neck: Supple, 2+ carotid pulse no bruit, No LAD Respiratory: Symmetrical chest wall movement, bilaterally clear breath sounds, on room air Cardiovascular: RRR, Normal S1 S2 Gastrointestinal: Normal bowel sounds, No tenderness Musculoskeletal: No tenderness Integumentary: No rashes Neurological: Normal gait, Normal speech, Normal strength at 5/5 x4 extr, Normal tone Vital Signs/Physical Exam: Temp Pulse Resp BP Pulse Ox 98.4 F 64 20 115/72 98 01/17/24 12:00 01/17/24 12:00 01/17/24 12:00 01/17/24 12:00 01/17/24 12:00 Laboratory Data at Discharge: WBC 7.40 thou/uL (4.3-10.9) 01/17/24 05:04 Hgb 13.1 g/dL (12.0-15.0) D 01/17/24 05:04 Hct 41.0 % (36.0-45.0) 01/17/24 05:04 Plt Count 291 thou/uL (152-406) 01/17/24 05:04 PT 12.9 SECONDS (9.4-12.5) H 01/16/24 01:57 INR 1.16 01/16/24 01:57 Sodium 135 mEq/L (136-145) L 01/17/24 05:04 Potassium 4.2 mEq/L (3.5-5.1) 01/17/24 05:04 BUN 28 mg/dL (7-18) H 01/17/24 05:04 Creatinine 8.48 mg/dL (0.55-1.02) H 01/17/24 05:04 Glucose 158 mg/dL (74-106) H 01/17/24 05:04 Phosphorus 4.1 mg/dL (2.5-4.9) 01/17/24 05:04 Magnesium 2.4 mg/dL (1.6-2.4) 01/17/24 05:04 Total Bilirubin 0.3 mg/dL (0.2-1.0) 01/16/24 01:57 AST 13 U/L (15-37) L 01/16/24 01:57 ALT < 14 U/L (13-56) 01/16/24 01:57 Alkaline Phosphatase 74 U/L (45-117) 01/16/24 01:57 Lipase 30 U/L (13-75) 01/16/24 01:57 Home Medications: Sevelamer Carbonate [Renvela*] 800 mg PO TIDWM #90 tab 05/12/22 Furosemide [Lasix] 80 mg PO BID 05/29/23 Lisinopril [Zestril] 40 mg PO DAILY 05/29/23 Atenolol [Tenormin] 25 mg PO BEDTIME 01/16/24 Doxazosin [Cardura*] 8 mg PO BID 01/16/24 Hydrocodone 5/APAP 325 [[place] 5/325] 1 tab PO Q6H PRN #10 tab 01/17/24 Pantoprazole Sodium [Protonix] 40 mg PO DAILY #30 tab 01/17/24 calcitrioL [Calcitriol] 0.5 mcg PO DAILY #30 cap 01/17/24 New Medications: calcitrioL [Calcitriol] 0.5 mcg PO DAILY #30 cap Hydrocodone 5/APAP 325 [[place] 5/325] 1 tab PO Q6H PRN #10 tab PRN Reason: Pain Pantoprazole Sodium [Protonix] 40 mg PO DAILY #30 tab Diet: Renal Activity: Ad corby Followup: Sami Monge DO [Primary Care Provider] -
== END 2024-01-17 13:15 | disposition home or self-care (01) | DRG 291 ==
LOC: ER 00:51 → INTOOBSV 06:47 → ERHOLD 06:47 → 3RD-ICU 07:13 → OBSVTOIN 08:13
PROVIDERS: ADMIT Hospitalist; ATTEND Internal Medicine
PROC: 5A1D70Z Performance of Urinary Filtration, Intermittent, Less than 6 Hours Per Day (ICD-10-PCS; principal; 2024-01-16)
DX: I13.2 Hypertensive heart and chronic kidney disease with heart failure and with stage 5 chronic kidney disease, or end stage renal disease (principal); I50.33 Acute on chronic diastolic (congestive) heart failure; N18.6 End stage renal disease; R04.2 Hemoptysis; E87.20 Acidosis, unspecified; D63.1 Anemia in chronic kidney disease; I16.0 Hypertensive urgency; I08.1 Rheumatic disorders of both mitral and tricuspid valves; I27.20 Pulmonary hypertension, unspecified; J45.909 Unspecified asthma, uncomplicated; Z99.2 Dependence on renal dialysis; Z88.5 Allergy status to narcotic agent; Z98.51 Tubal ligation status; Z28.310 Unvaccinated for COVID-19; Z91.158 Patient's noncompliance with renal dialysis for other reason; Z79.899 Other long term (current) drug therapy
CPT/HCPCS: 36415; 71045; 80048; 80053; 81001; 83690; 83735; 83880; 84100; 84484; 85014; 85018; 85025; 85610; 87086; 87088; 96374; 96375; 99285; G0378; J0360; J1940; J2270; J2405; J2470; J2550; J2765; J3010; J7050

== ENCOUNTER 2024-01-30 11:24 | Emergency (ER) | payer OTHER ==
[2024-01-30] MEDS ORDERED: ONDANSETRON 4 MG (ODT) TAB ONE (12:20)
[2024-01-30] MEDS ORDERED: HYDROCODONE/APAP 5/325 MG TAB ONE (12:20)
[2024-01-30 12:30] LABS: Specific Gravity 1.009 (1.005-1.030)
[2024-01-30 12:31] LABS: Specific Gravity 1.009 (1.005-1.030); Sqamous Epithelial <5 /HPF (None Seen); Urine Bacteria None Seen /HPF (<20); Urine Bilirubin NEGATIVE (Negative); Urine Blood Negative (Negative); Urine Clarity Turbid (Clear); Urine Color Light-Yellow (Yellow); Urine Culture Reflex Order NOT NEEDED; Urine Glucose NEGATIVE (Negative); Urine Ketones NEGATIVE (Negative); Urine Micro Reflex YN NO BILL MICROSCOPIC; Urine Nitrite NEGATIVE (Negative); Urine Protein 1+ (Negative); Urine RBC <5 /HPF (None Seen); Urine Urobilinogen Normal (Normal); Urine WBC <5 /HPF (<5)
[2024-01-30] MEDS ORDERED: CYCLOBENZAPRINE 10 MG TAB ONE (12:33)
--- NOTE | 2024-01-30 13:44 | RAD REPORT ---
EXAM DESCRIPTION: CT - Stone Protocol - 01/30/2024 1:09 pm CLINICAL HISTORY: FLANK PAIN COMPARISON: Abdomen Pelvis Wo Contrast dated 05/07/2022; Abdomen Pelvis Wo Contrast dated 022; Abdomen Pelvis Wo Contrast dated 11/13/2020; Abdomen Pelvis Wo Contrast dated 11/21/2019 TECHNIQUE: Thin cut axial CT imaging of the abdomen and pelvis was performed without IV contrast. Mu ltiplanar reformats were generated and reviewed. All CT scans are performed using dose optimization technique as appropriate and may include automated exposure control or mA/KV adjustment according to patient size. FINDINGS: No suspicious findings in the lung bases. The liver, spleen, adrenal glands, and pancreas show no suspicious findings. Gallbladder and biliary tree are also without suspicious finding. Symmetric renal contour, without suspicious parenchymal findings within limits of noncontrast techniq ue. No evidence of radiopaque calculi or hydroureteronephrosis. No dilated bowel loops or bowel wall thickening. No free air, free fluid or inflammatory stranding. D ominant left adnexal 4.7 cm cystic lesion. Diastasis recti. No hernia, mass or bulky lymphadenopathy. The urinary bladder is suboptimally distended limiting evaluation, without significant finding. No suspicious bony findings. IMPRESSION: No acute intra-abdominal process. Dominant left adnexal 4.7 cm cystic lesion, not well characterized. If this is felt to relate to the patient's symptoms, this can be further evaluated by dedicated pelvic ultrasound on a nonemergent bas is.
--- NOTE | 2024-01-30 14:02 | RAD REPORT ---
EXAM DESCRIPTION: US - Transvaginal Study Probe - 01/30/2024 1:07 pm CLINICAL HISTORY: llq pain COMPARISON: No comparisons TECHNIQUE: Sonographic grayscale and color flow images of the pelvis were obtained. FINDINGS: The uterus is normal in size,, and is retroflexed. Hypoechoic posterior wall subserosal fi broid measuring 3.0 x 2.5 x 2.0 cm. The uterus measures 10.4 cm in length. The endometrial stripe measures 7 mm, normal. Both ovaries are normal in size, shape and echotexture. Left ovary is asymmetrically enlarged measur ing 5.3 cm. A dominant complex cystic lesion is present within the left ovary measures 3.0 x 3.1 x 3. 0 cm. Normal Doppler blood flow was demonstrated to both ovaries. No significant pelvic ascites. IMPRESSION: Dominant left ovarian 3.1 cm complex cystic structure. While probably physiologic, if co nsidered to relate to the patient's symptoms, a follow-up ultrasound in 6-10 weeks may be helpful for additional evaluation. Retroflexed uterus. 3 cm posterior wall subserosal fibroid.
[2024-01-30] MEDS ORDERED: MORPHINE 4 MG/ML SYR ONE (14:22)
--- NOTE | 2024-01-30 15:00 | ER ---
Nurse's Notes [facility] Name: Nely Quinones Age: 38 yrs Sex: Female : 1985 Arrival Date: 01/30/2024 Time: 11:24 Bed 11 Private MD: Diagnosis: Other ovarian cysts Presentation: 01/29 11:56 Chief complaint: Patient states: severe lower back pain, left lower quadrant pain for tm6 several months. Missing dialysis today due to pain. Also right eye pain. Coronavirus screen: Vaccine status: Patient reports being unvaccinated. Ebola Screen: Patient negative for fever greater than or equal to 101.5 degrees Fahrenheit, and additional compatible Ebola Virus Disease symptoms Patient denies exposure to infectious person. Patient denies travel to an Ebola-affected area in the 21 days before illness onset. No symptoms or risks identified at this time. Initial Sepsis Screen: Does the patient meet any 2 criteria? No. Patient's initial sepsis screen is negative. Does the patient have a suspected source of infection? No. Patient's initial sepsis screen is negative. Risk Assessment: Do you want to hurt yourself or someone else? Patient reports no desire to harm self or others. Onset of symptoms is unknown. 11:56 Method Of Arrival: Ambulatory tm6 11:56 Acuity: LORENA 3 tm6 Triage Assessment: 11:57 General: Appears in no apparent distress. Behavior is cooperative. Pain: Complains of tm6 pain in back, left upper quadrant and left lower quadrant Pain currently is 10 out of 10 on a pain scale. EENT: No signs and/or symptoms were reported regarding the EENT system. EENT: Reports pain in right eye. Neuro: Level of Consciousness is awake, alert, obeys commands, Oriented to person, place, time, situation. Cardiovascular: Patient's skin is warm and dry. Respiratory: Airway is patent Respiratory effort is even, unlabored, Respiratory pattern is regular, symmetrical. GI: Reports lower abdominal pain, upper abdominal pain. : No signs and/or symptoms were reported regarding the genitourinary system. Derm: No signs and/or symptoms reported regarding the dermatologic system. Musculoskeletal: Reports pain in back. 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 - Infectious Disease History:: Denies. - Social history:: Smoking status: Patient denies any tobacco usage or history of. Patient/guardian denies using alcohol. Screenin:17 [facility] ED Fall Risk Assessment (Adult) History of falling in the last 3 months, ll1 including since admission No falls in past 3 months (0 pts) Confusion or Disorientation No (0 pts) Intoxicated or Sedated No (0 pts) Impaired Gait No (0 pts) Mobility Assist Device Used No (0 pt) Altered Elimination No (0 pt) Score/Fall Risk Level 0 - 2 = Low Risk Maintained a safe environment, Hourly rounding (assess needs \T\ fall precautionary measures) done. Abuse screen: Denies threats or abuse. Nutritional screening: No deficits noted. Tuberculosis screening: No symptoms or risk factors identified. Assessment: 12:17 General: Appears uncomfortable, Behavior is calm, cooperative, appropriate for age. ll1 Musculoskeletal: Reports pain in left low back. 12:30 Reassessment: Patient and/or family updated on plan of care and expected duration. Pain tl4 level reassessed. Patient is alert, oriented x 3, equal unlabored respirations, skin warm/dry/pink. Pt states no relief with PO pain medications. Pt advised that medication may take up to an hour to be effective. ANH Silva aware, orders written. Call zaragoza at bedside. Will continue to monitor. 13:55 Reassessment: Patient and/or family updated on plan of care and expected duration. Pain tl4 level reassessed. Patient is alert, oriented x 3, equal unlabored respirations, skin warm/dry/pink. Pt states pain went from 10/10 to 9.5/10. Pt also c/o 'weepy' right eye now. ANH Silva aware. Pt denies any other needs at this time. Will continue to monitor. Vital Signs: 11:55 BP 154 / 115; Pulse 74; Resp 19; Temp 99(O); Pulse Ox 97% on R/A; Weight 72.12 kg; tm6 Height 5 ft. 2 in. ; Pain 10/10; 13:52 BP 165 / 117; Pulse 66; Resp 18; Pulse Ox 100% on R/A; Pain 10/10; tl4 15:22 BP 149 / 104; Pulse 74; Resp 16; Temp 98.3(O); Pulse Ox 99% on R/A; tl4 11:55 Body Mass Index 29.08 (72.12 kg, 157.48 cm) tm6 11:55 Pain Scale: Adult tm6 13:52 Pain Scale: Adult tl4 ED Course: 11:26 Patient arrived in ED. ra3 11:38 Shira Wasserman PA-C is PHCP. sb4 11:38 Jaden Diaz DO is Attending Physician. sb4 11:57 Triage completed. tm6 11:57 Arm band placed on right wrist. tm6 12:10 Patient placed in an exam room, on a stretcher. ll1 12:11 Door closed. Warm blanket given. ll1 12:15 Urine collected: clean catch specimen, clear, Amount Voided: 150mL. ll1 12:16 UAM Sent. ll1 12:16 Test, Urine Sent. ll1 12:18 Patient has correct armband on for positive identification. Bed in low position. Call ll1 light in reach. Cardiac monitoring not applicable on this patient. 13:09 Transvaginal Study (probe) In Process Unspecified. EDMS 13:[address] In Process Unspecified. EDMS 15:00 Gayle Molina MD is Referral Physician. sb4 15:23 Provided Education on: call zaragoza, ed process. tl4 15:23 No provider procedures requiring assistance completed. Patient did not have IV access tl4 during this emergency room visit. Administered Medications: 12:24 Drug: HYDROcodone-acetaminophen PO 5 mg-325 mg 2 tabs PO once {Note: RASS 0.} Route: PO;ll1 13:51 Follow up: Response: No adverse reaction; Pain is unchanged, physician notified tl4 12:24 Drug: Ondansetron Oral Disintegrating Tablet Oral Disintegrating Tablet 4 mg PO once ll1 Route: PO; 13:52 Follow up: Response: No adverse reaction tl4 12:34 Drug: Cyclobenzaprine PO 10 mg PO once Route: PO; tl4 13:52 Follow up: Response: No adverse reaction; Pain is unchanged, physician notified tl4 14:33 Drug: morphine IM 4 mg IM once Route: IM; Site: right ventrogluteal; tl4 15:26 Follow up: Response: No adverse reaction; Pain is decreased tl4 Medication: 12:18 VIS not applicable for this client. ll1 Outcome: 15:00 Discharge ordered by . sb4 15:22 Discharged to home ambulatory, tl4 15:22 Condition: stable 15:22 Discharge instructions given to patient, Instructed on discharge instructions, follow up and referral plans. medication usage, Demonstrated understanding of instructions, follow-up care, medications, Prescriptions given X 2, 15:26 Patient left the ED. tl4 Signatures: Dispatcher [employer] EDMS Neal Hernández, RN RN ll1 Shira Wasserman PA-C PALino kaye4 Malaika Nunez RN RN tm6 Lucas Reynolds RN RN tl4 Alea Cabrera ra3 Corrections: (The following items were deleted from the chart) 11:58 11:56 Chief complaint: Patient states: severe lower back pain, left lower quadrant pain tm6 for several months. Missing dialysis today due to pain tm6 11:58 11:57 Allergies: Hydrocodone-Acetaminophen; tm6 tm6 15:25 15:24 Allergies: Morphine; tl4 tl4
--- NOTE | 2024-01-30 15:01 | EDPHYS ---
Physician Documentation [facility] Name: Nely Quinones Age: 38 yrs Sex: Female : 1985 Arrival Date: 01/30/2024 Time: 11:24 Bed 11 Private MD: ED Physician Jaden Diaz HPI: 01/29 12:07 This 38 yrs old Black Female presents to ER via Ambulatory with complaints of Back Pain.sb4 12:07 The patient presents with pain that is acute, with no known mechanism of injury. The sb4 symptoms are located in the left low back and left mid back. Onset: The symptoms/episode began/occurred 1 month(s) ago. The pain radiates to the left lower quadrant. Associated signs and symptoms: The patient has no apparent associated signs or symptoms. The problem was sustained without known cause, from unknown cause. Modifying factors: The patient symptoms are alleviated by heat application, the patient symptoms are aggravated by movement. The patient has not experienced similar symptoms in the past. The patient has been recently seen at an urgent care, last week, for similar complaints, X-rays were performed, was given a prescription for pain medications. 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 - Infectious Disease History:: Denies. - Social history:: Smoking status: Patient denies any tobacco usage or history of. Patient/guardian denies using alcohol. ROS: 12:07 Constitutional: Negative for fever, chills, and weight loss, sb4 12:07 Back: Positive for pain at rest, 12:07 All other systems are negative, Exam: 12:09 Head/Face: Normocephalic, atraumatic. Eyes: Extra-ocular motions intact. Periorbital sb4 areas with no swelling, redness, or edema. ENT: Mucous membranes moist. Cardiovascular: Regular rate and rhythm with a normal S1 and S2. Respiratory: Lungs have equal breath sounds bilaterally, clear to auscultation and percussion. No rales, rhonchi or wheezes noted. No increased work of breathing, no retractions or nasal flaring. Abdomen/GI: Soft, non-tender, no distension. Skin: Warm, dry with normal turgor. Normal color with no rashes, no lesions, and no evidence of cellulitis. 12:09 Constitutional: The patient appears alert, awake, tearful 15:02 Neuro: Orientation: is normal, to person, place, time \T\ situation. Motor: is normal, sb4 Sensation: is normal, Gait: is steady, appropriate for age, Vital Signs: 11:55 BP 154 / 115; Pulse 74; Resp 19; Temp 99(O); Pulse Ox 97% on R/A; Weight 72.12 kg; tm6 Height 5 ft. 2 in. ; Pain 10/10; 13:52 BP 165 / 117; Pulse 66; Resp 18; Pulse Ox 100% on R/A; Pain 10/10; tl4 15:22 BP 149 / 104; Pulse 74; Resp 16; Temp 98.3(O); Pulse Ox 99% on R/A; tl4 11:55 Body Mass Index 29.08 (72.12 kg, 157.48 cm) tm6 11:55 Pain Scale: Adult tm6 13:52 Pain Scale: Adult tl4 MDM: 11:40 Patient medically screened. sb4 15:02 Data reviewed: vital signs, nurses notes, lab test result(s), radiologic studies, and sb4 as a result, I will discharge patient. Care significantly affected by the following chronic conditions: Hypertension, Chronic Kidney Disease. Counseling: I had a detailed discussion with the patient and/or guardian regarding the historical points, exam findings, and any diagnostic results supporting the discharge/admit diagnosis, the presence of at least one elevated blood pressure reading (>120/80) during this emergency department visit, lab results, radiology results, the need for outpatient follow up, an OB/Gyne specialist, to return to the emergency department if symptoms worsen or persist or if there are any questions or concerns that arise at home. 01/29 12:07 Order name: UAM; Complete Time: 12:36 sb4 01/29 12:07 Order name: Test, Urine; Complete Time: 12:36 sb4 01/29 12:07 Order name: Stone Protocol CT; Complete Time: 13:51 sb4 01/29 12:07 Order name: Transvaginal Study (probe); Complete Time: 14:04 sb4 Administered Medications: 12:24 Drug: HYDROcodone-acetaminophen PO 5 mg-325 mg 2 tabs PO once {Note: RASS 0.} Route: PO;ll1 13:51 Follow up: Response: No adverse reaction; Pain is unchanged, physician notified tl4 12:24 Drug: Ondansetron Oral Disintegrating Tablet Oral Disintegrating Tablet 4 mg PO once ll1 Route: PO; 13:52 Follow up: Response: No adverse reaction tl4 12:34 Drug: Cyclobenzaprine PO 10 mg PO once Route: PO; tl4 13:52 Follow up: Response: No adverse reaction; Pain is unchanged, physician notified tl4 14:33 Drug: morphine IM 4 mg IM once Route: IM; Site: right ventrogluteal; tl4 15:26 Follow up: Response: No adverse reaction; Pain is decreased tl4 Disposition: 14:48 I was immediately available on-site in the Emergency Department for consultation in the ms3 care of the patient. Disposition Summary: 01/30/24 15:00 Discharge Ordered Notes: Location: Home sb4 Problem: an ongoing problem sb4 Symptoms: have improved sb4 Condition: Stable sb4 Diagnosis - Other ovarian cysts sb4 Followup: sb4 - With: Gayle Molina MD - When: 1 week - Reason: Recheck today's complaints, Re-evaluation by your physician Discharge Instructions: - Discharge Summary Sheet sb4 - Ovarian Cyst, [id number] sb4 - Unilateral Salpingo-Oophorectomy sb4 Forms: - Patient Portal Instructions sb4 - Leadership Thank You Letter sb4 Prescriptions: - acetaminophen-codeine 300-30 mg Oral tablet - take 1 tablet ORAL route every 6 hours; 15 tablet; Refills: 0, Product sb4 Selection Permitted - methocarbamol 750 mg Oral tablet - take 1 tablet ORAL route 4 times per day; 20 tablet; Refills: 0, Product sb4 Selection Permitted Signatures: Dispatcher [employer] Neal Sanders RN RN ll1 Jaden Diaz DO DO ms3 Shira Wasserman PA-C PA-C sb4 Malaika Nunez RN RN tm6 Logdahl, Lucas, RN RN tl4 Corrections: (The following items were deleted from the chart) 11:58 11:57 Allergies: Hydrocodone-Acetaminophen; tm6 tm6 12:08 12:07 Stone Protocol+CT.RAD.BRZ ordered. EDMS EDMS 12:08 12:08 Urinalysis W/Microscopic+U.LAB.BRZ ordered. EDMS EDMS 12:08 12:08 Test, Urine+UC.LAB.BRZ ordered. EDMS EDMS 12: 12:08 Transvaginal Study (Probe)+US.RAD.BRZ ordered. EDMS EDMS 15:25 15:24 Allergies: Morphine; tl4 tl4
[2024-01-30 15:36] VITALS: BP 149/104; TEMP 98.3; O2SAT 99
== END 2024-01-30 15:26 | disposition home or self-care (01) ==
LOC: ER 11:24
DX: N83.299 Other ovarian cyst, unspecified side (principal)
CPT/HCPCS: 81001; 81025; 76377; 74176; 76830; 96372; 99284; Q0162

== ENCOUNTER 2024-02-04 19:41 | Emergency (ER) | payer OTHER ==
[2024-02-04] MEDS ORDERED: ONDANSETRON 4 MG/2 ML VIAL ONE (20:46)
[2024-02-04] MEDS ORDERED: MORPHINE 4 MG/ML SYR ONE (20:47)
--- NOTE | 2024-02-04 20:48 | RAD REPORT ---
EXAM DESCRIPTION: RAD - Chest Single View - 02/04/2024 8:23 pm CLINICAL HISTORY: Abdominal distention;Chest pain Chest pain. COMPARISON: <Comparisons> FINDINGS: Portable technique limits examination quality. Mild pulmonary edema. The heart is moderately enlarged in size. No displaced fractures. IMPRESSION: Mild CHF versus volume overload pattern.
--- NOTE | 2024-02-04 20:52 | RAD REPORT ---
EXAM DESCRIPTION: CT - Abdomen Pelvis Wo Contrast - 02/04/2024 8:22 pm CLINICAL HISTORY: Abdominal pain. left lower pelvic pain COMPARISON: <Comparisons> TECHNIQUE: CT imaging of the abdomen and pelvis was performed without contrast. Solid organ, bowel a nd vascular assessment is limited due to lack of IV and oral contrast. All CT scans are performed using dose optimization technique as appropriate and may include automated exposure control or mA/KV adjustment according to patient size. FINDINGS: The lower lung workman are clear. The liver, spleen, pancreas, adrenal glands and kidneys are within normal limits for a limited non-co ntrast examination. No bowel obstruction, free air, or abscess. Mild free fluid in the pelvis. 4.1 cm left adnexal cystic lesion. The appendix is normal. Moderate stool is retained throughout the colon. The osseous structures are within normal limits. IMPRESSION: 4.1 cm left adnexal cystic lesion probably ovarian cyst. Mild free fluid in the pelvis. Moderate stool throughout the colon. A limited non-contrast examination was performed as detailed.
[2024-02-04 21:00] LABS: Absolute Eosinophils 0.4 K/uL (0-0.5); Absolute Lymphocytes (CBC) 1.6 K/uL (0.7-4.9); Absolute Monocytes 0.5 K/uL (0.1-1.3); Absolute Neutrophil 3.3 K/uL (1.8-8.0); Basophils % 0.3 % (0-1.3); Eosinophils % 6.7 % (0-4.4); Hematocrit 33.5 % (36.0-45.0); Hemoglobin 10.7 g/dL (12.0-15.0); Lymphocytes % 27.8 % (15.3-44.8); MCH 30.8 pg (27.0-35.0); MCHC 31.9 g/dL (32.0-36.0); MCV 96.3 fL (80-100); MPV 8.1 fL (7.6-11.3); Monocytes % 8.6 % (3.3-12.3); Neutrophils % 56.6 % (41.7-73.7); Nucleated Red Blood Cells % 0.1 % (0-0); Platelets 293 thou/uL (152-406); RBC Red Blood Cell Count 3.47 M/uL (3.86-4.86); Red Cell Distribution Width 15.4 % (12.1-15.2)
[2024-02-04 21:23] LABS: Albumin/Globulin Ratio 1.1 (1.1-1.8); Anion Gap 12.5 mEq/L (5.0-15.0); BUN Blood Urea Nitrogen 38 mg/dL (7-18); Bicarbonate 25 mEq/L (21-32); Bilirubin Total 0.9 mg/dL (0.2-1.0); Globulin 3.7 g/dL (2.3-3.5); Glomerular Filtration Rate 5 ml/min (=/>90); Glucose Level 147 mg/dL (74-106); Magnesium 2.6 mg/dL (1.6-2.4); NT PRO-BNP 11087 pg/mL (<125); Potassium 4.5 mEq/L (3.5-5.1); Protein, Total 7.7 g/dL (6.4-8.2); Sodium Level 137 mEq/L (136-145); Troponin High Sensitivity 27.8 pg/mL (<58.9)
[2024-02-04 21:24] LABS: ALT/SGPT < 14 U/L (13-56); AST/SGOT < 10 U/L (15-37); Bilirubin Direct < 0.2 mg/dL (0-0.2); Bilirubin Indirect, Calculated 0.7 mg/dL (0.2-0.8)
[2024-02-04 21:29] LABS: PT Prothrombin Time 11.7 SECONDS (9.4-12.5); Protime INR 1.05
[2024-02-04 21:31] LABS: Alkaline Phosphatase 76 U/L (45-117)
[2024-02-04] MEDS ORDERED: HYDRALAZINE HCL 25 MG TABLET ONE (21:32)
[2024-02-04] MEDS ORDERED: METOCLOPRAMIDE 10 MG/2mL INJ ONE (21:33)
[2024-02-04] MEDS ORDERED: DIAZEPAM 2 MG TABLET ONE (21:33)
--- NOTE | 2024-02-04 23:51 | EDPHYS ---
Physician Documentation [facility] Name: Nely Quinones Age: 38 yrs Sex: Female : 1985 Arrival Date: 02/04/2024 Time: 19:41 Bed 7 Private MD: ED Physician Steven Block HPI: 02/03 19:43 This 38 yrs old Black Female presents to ER via Unassigned with complaints of Missed sp4 dialysis, pain, Vomiting. 23:57 38-year-old female end-stage renal disease on hemodialysis, presents with complaint of sp4 nausea vomiting and left flank left pelvic pain. However there has history of left upper and dialysis fistula she says she missed her dialysis on Tuesday. History of hypertension, history of left ovarian cyst diagnosed 01/30/2024. 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 - Infectious Disease History:: Denies. - Social history:: Smoking status: Patient denies any tobacco usage or history of. - Family history:: not pertinent. ROS: 23:57 Constitutional: Negative for fever, chills, and weight loss, Positive left pelvic pain sp4 23:57 All other systems are negative, Exam: 23:57 Constitutional: This is a well developed, well nourished patient who is awake, alert, sp4 and in no acute distress. Head/Face: Normocephalic, atraumatic. Eyes: Pupils equal round and reactive to light, extra-ocular motions intact. Lids and lashes normal. Conjunctiva and sclera are not injected. Cornea within normal limits. Periorbital areas with no swelling, redness, or edema. ENT: Nares patent. No nasal discharge, no septal abnormalities noted. Tympanic membranes are normal and external auditory canals are clear. Oropharynx with no redness, swelling, or masses, exudates, or evidence of obstruction, uvula midline. Mucous membranes moist. Neck: Trachea midline, no thyromegaly or masses palpated, and no cervical lymphadenopathy. Supple, full range of motion without nuchal rigidity, or vertebral point tenderness. Chest/axilla: Normal chest wall appearance and motion. Nontender with no deformity. No lesions are appreciated. Cardiovascular: Regular rate and rhythm with a normal S1 and S2. No gallops, murmurs, or rubs. Normal PMI, no JVD. No pulse deficits. Left upper arm dialysis fistula with palpable thrill Respiratory: Lungs have equal breath sounds bilaterally, clear to auscultation and percussion. No rales, rhonchi or wheezes noted. No increased work of breathing, no retractions or nasal flaring. Abdomen/GI: Soft, with normal bowel sounds. No distension or tympany. No guarding or rebound. No evidence of tenderness throughout. Back: No spinal tenderness. No costovertebral tenderness. Skin: Warm, dry with normal turgor. Normal color with no rashes, no lesions, and no evidence of cellulitis. MS/ Extremity: Pulses equal, no cyanosis. Neurovascular intact. Full, normal range of motion. Neuro: Awake and alert, GCS 15, oriented to person, place, time, and situation. Cranial nerves II-XII grossly intact. Motor strength 5/5 in all extremities. Sensory grossly intact. Psych: Awake, alert, with orientation to person, place and time. Behavior, mood, and affect are within normal limits 23:57 ECG was reviewed by the Attending Physician. EKG at 2123 normal sinus rhythm rate sp4 67, no ST elevation or depression Vital Signs: 19:53 BP 200 / 113; Pulse 73; Resp 16; Temp 98; Pulse Ox 100% on R/A; Weight 68.04 kg; Height cm10 5 ft. 2 in. ; Pain 10/10; 20:30 BP 179 / 119; Pulse 68; Resp 20 S; Pulse Ox 100% on R/A; ha1 21:15 BP 165 / 115; Pulse 65; Resp 20 S; Pulse Ox 99% on R/A; ha1 22:00 BP 156 / 107; Pulse 71; Resp 19 S; Pulse Ox 97% on R/A; ha1 23:00 BP 164 / 108; Pulse 71; Resp 18 S; Pulse Ox 96% on R/A; ha1 02/04 00:06 BP 164 / 106; Pulse 74; Resp 20 S; Temp 97.8(T); Pulse Ox 100% on R/A; ha1 02/03 19:53 Body Mass Index 27.44 (68.04 kg, 157.48 cm) cm10 02/03 19:53 Pain Scale: Adult cm10 MDM: 02/03 19:43 Patient medically screened. sp4 23:42 ED course: EXAM DESCRIPTION: US - Transvaginal Study Probe - 01/30/2024 1:07 pm Review sp4 from prior visit CLINICAL HISTORY: llq pain COMPARISON: No comparisons TECHNIQUE: Sonographic grayscale and color flow images of the pelvis were obtained. FINDINGS: The uterus is normal in size,, and is retroflexed. Hypoechoic posterior wall subserosal fibroid measuring 3.0 x 2.5 x 2.0 cm. The uterus measures 10.4 cm in length. The endometrial stripe measures 7 mm, normal. Both ovaries are normal in size, shape and echotexture. Left ovary is asymmetrically enlarged measuring 5.3 cm. A dominant complex cystic lesion is present within the left ovary measures 3.0 x 3.1 x 3.0 cm. Normal Doppler blood flow was demonstrated to both ovaries. No significant pelvic ascites. IMPRESSION: Dominant left ovarian 3.1 cm complex cystic structure. While probably physiologic, if considered to relate to the patient's symptoms, a follow-up ultrasound in 6-10 weeks may be helpful for additional evaluation. Retroflexed uterus. 3 cm posterior wall subserosal fibroid. . ED course: EXAM DESCRIPTION: CT - Abdomen Pelvis Wo Contrast - 02/04/2024 8:22 pm CLINICAL HISTORY: Abdominal pain. left lower pelvic pain COMPARISON: TECHNIQUE: CT imaging of the abdomen and pelvis was performed without contrast. Solid organ, bowel and vascular assessment is limited due to lack of IV and oral contrast. All CT scans are performed using dose optimization technique as appropriate and may include automated exposure control or mA/KV adjustment according to patient size. FINDINGS: The lower lung workman are clear. The liver, spleen, pancreas, adrenal glands and kidneys are within normal limits for a limited noncontrast examination. No bowel obstruction, free air, or abscess. Mild free fluid in the pelvis. 4.1 cm left adnexal cystic lesion. The appendix is normal. Moderate stool is retained throughout the colon. The osseous structures are within normal limits. IMPRESSION: 4.1 cm left adnexal cystic lesion probably ovarian cyst. Mild free fluid in the pelvis. Moderate stool throughout the colon. A limited non-contrast examination was performed as detailed. . ED course: EXAM DESCRIPTION: RAD - Chest Single View - 02/04/2024 8:23 pm CLINICAL HISTORY: Abdominal distention;Chest pain Chest pain. COMPARISON: FINDINGS: Portable technique limits examination quality. Mild pulmonary edema. The heart is moderately enlarged in size. No displaced fractures. IMPRESSION: Mild CHF versus volume overload pattern.. 02/04 00:00 Differential diagnosis: Nonspecific abd pain, gastritis, diverticulitis, viral sp4 gastroenteritis, gastroenteritis. Data reviewed: vital signs, nurses notes, lab test result(s), EKG, radiologic studies, CT scan, plain films. Consideration of Admission/Observation Escalation of care including admission/observation considered. ED course: Patient has normal potassium, no sign of decompensated heart failure. Stable for discharge home advised to attend hemodialysis on Tuesday as scheduled. As far as left adnexal cyst - patient advised to see Dr. Lynn for evaluation in the office.. 02/03 19:43 Order name: Basic Metabolic Panel; Complete Time: 23: [facility] 02/03 19:43 Order name: CBC with Diff; Complete Time: : [facility] 02/03 19:43 Order name: LFT's; Complete Time: 23: [facility] 02/03 19:43 Order name: Magnesium; Complete Time: : 4 02/03 19:43 Order name: NT PRO-BNP; Complete Time: 23: [facility] 02/03 19:43 Order name: PT-INR; Complete Time: 23: [facility] 02/03 19:43 Order name: Troponin HS; Complete Time: : 4 02/03 19:53 Order name: Test, Serum; Complete Time: 23: [facility] 02/03 19:43 Order name: XRAY Chest (1 view); Complete Time: 23: [facility] 02/03 19:53 Order name: CT Abd/Pelvis - Without Contrast; Complete Time: 23: 4 02/03 19:43 Order name: Cardiac monitoring; Complete Time: 20:42 4 02/03 19:43 Order name: EKG - Nurse/Tech; Complete Time: 21:31 [facility] 02/03 19:43 Order name: IV Saline Lock; Complete Time: 20:42 sp4 02/03 19:43 Order name: Labs collected and sent; Complete Time: 20:43 sp4 02/03 19:43 Order name: O2 Per Protocol; Complete Time: 20:43 sp4 02/03 19:43 Order name: O2 Sat Monitoring; Complete Time: 20:43 sp4 EC/24 23:57 Rate is 67 beats/min. Rhythm is regular, Normal Sinus Rhythm. QRS [place] is Normal. [place] sp4 interval is normal. QRS interval is normal. QT interval is normal. No Q waves. T waves are Normal. No ST changes noted. Clinical impression: Normal ECG. Interpreted by me. Reviewed by me. Administered Medications: 20:52 Drug: Ondansetron IVP 4 mg IVP once; over 2 minutes Route: IVP; Site: right antecubital;ha1 21:15 Follow up: Response: No adverse reaction; Nausea unchanged ha1 20:54 Drug: morphine IVP or IV 4 mg IVP once over 4 mins Route: IVP; Infused Over: 4 mins; ha1 Site: right antecubital; 21:15 Follow up: Response: No adverse reaction; Pain is decreased; RASS: Alert and Calm (0) ha1 21:39 Drug: metoCLOPramide IVP 10 mg IVP once; over 1 to 2 minutes Route: IVP; Site: right ha1 antecubital; 22:00 Follow up: Response: No adverse reaction; Marked relief of symptoms; Nausea is decreasedha1 21:39 Drug: Diazepam PO 2 mg PO once Route: PO; ha1 22:00 Follow up: Response: No adverse reaction; Anxiety decreased ha1 21:39 Drug: HydrALAZINE PO 50 mg PO once Route: PO; ha1 22:00 Follow up: Response: No adverse reaction; Marked relief of symptoms; Blood pressure is ha1 lowered 02/04 00:00 Drug: Acetaminophen-Codeine PO (300 mg-30 mg) 2 tabs PO once; RASS on ADMIN: Combtv4, ha1 Very Agttd3, Agttd2, Rstlss1, AlertClm0, Drwsy-1, Lt Sdtn-2, Mod Sdtn-3, Dp Sdtn-4, UnArsble-5 Route: PO; 00:06 Follow up: Response: No adverse reaction ha1 Disposition Summary: 02/04/24 23:50 Discharge Ordered Notes: Please see Dr. Lynn for evaluation for left ovarian cyst Location: Home sp4 Problem: new sp4 Symptoms: have improved sp4 Condition: Stable sp4 Diagnosis - Acute left flank pain, acute vomiting, Left ovarian cyst sp4 - ESRD , Missed Hemodialysis sp4 Followup: sp4 - With: Sami Monge DO - When: 48 Hours - Reason: Recheck today's complaints Followup: sp4 - With: Gayle Molina MD - When: 7 - 10 days - Reason: Recheck today's complaints Discharge Instructions: - Discharge Summary Sheet sp4 - Ovarian Cyst, [id number] sp4 Forms: - Patient Portal Instructions sp4 Prescriptions: - acetaminophen-codeine 300-60 mg Oral tablet - take 1 tablet ORAL route every 8 hours PRN pain; 20 tablet; Refills: 0, Product sp4 Selection Permitted - promethazine 25 mg Oral tablet - take 1 tablet ORAL route every 8 hours As needed PRN nausea; 30 tablet; sp4 Refills: 0, Product Selection Permitted Signatures: Dispatcher [employer] EDMS Tia Donald, RN RN ha1 Steven Block MD MD sp4 Tasneem Lazo RN RN cm10 Corrections: (The following items were deleted from the chart) 02/03 19:44 19:44 BASIC METABOLIC PANEL+C.LAB.BRZ ordered. EDMS EDMS 19:44 19:44 CBC+H.LAB.BRZ ordered. EDMS EDMS 19:44 19:44 HEPATIC FUNCTION+C.LAB.BRZ ordered. EDMS EDMS 19:44 19:44 MAGNESIUM+C.LAB.BRZ ordered. EDMS EDMS 19:44 19:44 PROBNP+C.LAB.BRZ ordered. EDMS EDMS 19:44 19:44 PROTIME (+INR)+COAG.LAB.BRZ ordered. EDMS EDMS 19:44 19:44 Troponin High Sensitivity+C.LAB.BRZ ordered. EDMS EDMS 19:44 19:44 Chest Single View+RAD.RAD.BRZ ordered. EDMS EDMS
--- NOTE | 2024-02-04 23:51 | ER ---
Nurse's Notes [facility] Name: Nely Quinones Age: 38 yrs Sex: Female : 1985 Arrival Date: 02/04/2024 Time: 19:41 Bed 7 Private MD: Diagnosis: Acute left flank pain, acute vomiting, Left ovarian cyst ;ESRD , Missed Hemodialysis Presentation: 02/03 19:53 Chief complaint: Patient states: LLQ abdominal pain. Pt reports that she was recently cm10 diagnosed with an ovarian cyst. Pt also reports that she has been vomiting. Pt also reports that she missed dialysis yesterday. Coronavirus screen: Client denies travel out of the [place] in the last 14 days. At this time, the client does not indicate any symptoms associated with coronavirus-19. Ebola Screen: Patient denies travel to an Ebola-affected area in the 21 days before illness onset. No symptoms or risks identified at this time. Initial Sepsis Screen: Does the patient meet any 2 criteria? No. Patient's initial sepsis screen is negative. Does the patient have a suspected source of infection? No. Patient's initial sepsis screen is negative. Risk Assessment: Do you want to hurt yourself or someone else? Patient reports no desire to harm self or others. Onset of symptoms was February 04, 2024. 19:53 Method Of Arrival: Ambulatory cm10 19:53 Acuity: LORENA 3 cm10 Triage Assessment: 19:55 General: Appears in no apparent distress. uncomfortable, Behavior is calm, cooperative. cm10 Neuro: No deficits noted. Level of Consciousness is awake, alert, obeys commands, Oriented to person, place, time, situation, Appropriate for age. Respiratory: No deficits noted. Airway is patent Respiratory effort is even, unlabored, Respiratory pattern is regular, symmetrical. 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 - Infectious Disease History:: Denies. - Social history:: Smoking status: Patient denies any tobacco usage or history of. - Family history:: not pertinent. Screenin:43 [facility] ED Fall Risk Assessment (Adult) History of falling in the last 3 months, ha1 including since admission No falls in past 3 months (0 pts) Confusion or Disorientation No (0 pts) Intoxicated or Sedated No (0 pts) Impaired Gait No (0 pts) Mobility Assist Device Used No (0 pt) Altered Elimination No (0 pt) Score/Fall Risk Level 0 - 2 = Low Risk Oriented to surroundings, Maintained a safe environment, Educated pt \T\ family on fall prevention, incl call for assistance when getting out of bed, Hourly rounding (assess needs \T\ fall precautionary measures) done. Abuse screen: Denies threats or abuse. Denies injuries from another. Nutritional screening: No deficits noted. Tuberculosis screening: No symptoms or risk factors identified. Assessment: 20:00 General: Appears uncomfortable, Behavior is cooperative, anxious. Pain: Complains of ha1 pain in back Pain radiates to abdomen Pain currently is 10 out of 10 on a pain scale. Quality of pain is described as aching, Pain began 1 day ago. Neuro: Level of Consciousness is awake, alert, obeys commands, Oriented to person, place, time, situation. Cardiovascular: Heart tones S1 S2 present Capillary refill < 3 seconds Patient's skin is warm and dry. Rhythm is sinus rhythm. Respiratory: Airway is patent Respiratory effort is even, unlabored, Respiratory pattern is regular, symmetrical. GI: Abdomen is round non-distended, Bowel sounds present X 4 quads. Reports cramping, nausea, vomiting. : Reports. Derm: Skin is pink, warm \T\ dry. Musculoskeletal: Circulation, motion, and sensation intact. Range of motion: intact in all extremities. 21:00 Reassessment: Patient and/or family updated on plan of care and expected duration. Pain ha1 level reassessed. Patient is alert, oriented x 3, equal unlabored respirations, skin warm/dry/pink. 22:00 Reassessment: Patient and/or family updated on plan of care and expected duration. Pain ha1 level reassessed. Patient is alert, oriented x 3, equal unlabored respirations, skin warm/dry/pink. Patient states feeling better. Patient states symptoms have improved. 23:07 Reassessment: Patient and/or family updated on plan of care and expected duration. Pain ha1 level reassessed. Patient is alert, oriented x 3, equal unlabored respirations, skin warm/dry/pink. Patient denies pain at this time. Patient states feeling better. Patient states symptoms have improved. 02/04 00:06 Reassessment: Patient and/or family updated on plan of care and expected duration. Pain ha1 level reassessed. Patient is alert, oriented x 3, equal unlabored respirations, skin warm/dry/pink. Patient states feeling better. Patient states symptoms have improved. Vital Signs: 02/03 19:53 BP 200 / 113; Pulse 73; Resp 16; Temp 98; Pulse Ox 100% on R/A; Weight 68.04 kg; Height cm10 5 ft. 2 in. ; Pain 10/10; 20:30 BP 179 / 119; Pulse 68; Resp 20 S; Pulse Ox 100% on R/A; ha1 21:15 BP 165 / 115; Pulse 65; Resp 20 S; Pulse Ox 99% on R/A; ha1 22:00 BP 156 / 107; Pulse 71; Resp 19 S; Pulse Ox 97% on R/A; ha1 23:00 BP 164 / 108; Pulse 71; Resp 18 S; Pulse Ox 96% on R/A; ha1 02/04 00:06 BP 164 / 106; Pulse 74; Resp 20 S; Temp 97.8(T); Pulse Ox 100% on R/A; ha1 02/03 19:53 Body Mass Index 27.44 (68.04 kg, 157.48 cm) cm10 02/03 19:53 Pain Scale: Adult cm10 ED Course: 02/03 19:42 Patient arrived in ED. mr 19:43 Steven Block MD is Attending Physician. sp4 19:55 Triage completed. cm10 19:55 Arm band placed on Patient placed in waiting room. cm10 20:00 Patient has correct armband on for positive identification. Placed in gown. Bed in low ha1 position. Call light in reach. Side rails up X 1. 20:20 Inserted saline lock: 20 gauge in right antecubital area, using aseptic technique. ha1 Blood collected. Flushed with 10 mL NS. 20:23 CT Abd/Pelvis - Without Contrast In Process Unspecified. EDMS 20:24 XRAY Chest (1 view) In Process Unspecified. EDMS 20:31 Tia Donald, CHELA is Primary Nurse. ha1 23:46 Sami Monge DO is Referral Physician. sp4 23:46 Gayle Molina MD is Referral Physician. sp4 02/04 00:07 No provider procedures requiring assistance completed. IV discontinued, intact, ha1 bleeding controlled, No redness/swelling at site. Pressure dressing applied. 00:08 Provided Education on: FOLLOW UP WITH OB AND UROLOGY. MEDICATION ADMINISTRATION . ha1 Administered Medications: 02/03 20:52 Drug: Ondansetron IVP 4 mg IVP once; over 2 minutes Route: IVP; Site: right antecubital;ha1 21:15 Follow up: Response: No adverse reaction; Nausea unchanged ha1 20:54 Drug: morphine IVP or IV 4 mg IVP once over 4 mins Route: IVP; Infused Over: 4 mins; ha1 Site: right antecubital; 21:15 Follow up: Response: No adverse reaction; Pain is decreased; RASS: Alert and Calm (0) ha1 21:39 Drug: metoCLOPramide IVP 10 mg IVP once; over 1 to 2 minutes Route: IVP; Site: right ha1 antecubital; 22:00 Follow up: Response: No adverse reaction; Marked relief of symptoms; Nausea is decreasedha1 21:39 Drug: Diazepam PO 2 mg PO once Route: PO; ha1 22:00 Follow up: Response: No adverse reaction; Anxiety decreased ha1 21:39 Drug: HydrALAZINE PO 50 mg PO once Route: PO; ha1 22:00 Follow up: Response: No adverse reaction; Marked relief of symptoms; Blood pressure is ha1 lowered 02/04 00:00 Drug: Acetaminophen-Codeine PO (300 mg-30 mg) 2 tabs PO once; RASS on ADMIN: Combtv4, ha1 Very Agttd3, Agttd2, Rstlss1, AlertClm0, Drwsy-1, Lt Sdtn-2, Mod Sdtn-3, Dp Sdtn-4, UnArsble-5 Route: PO; 00:06 Follow up: Response: No adverse reaction ha1 Medication: 02/03 21:43 VIS not applicable for this client. ha1 Outcome: 23:50 Discharge ordered by MD. lucero 02/04 00:07 Discharged to home ambulatory, ha1 Condition: stable Discharge instructions given to patient, Instructed on discharge instructions, follow up and referral plans. medication usage, Demonstrated understanding of instructions, follow-up care, medications, Prescriptions given X 2, 00:08 Patient left the ED. ha1 Signatures: Dispatcher [employer] EDMS SteeleNely, Reg Reg mr Tia Donald, RN RN ha1 Steven Block MD MD sp4 Tasneem Lazo RN RN cm10
[2024-02-04] MEDS ORDERED: CODEINE 30MG/APAP 300MG TAB ONE (23:58)
[2024-02-05 00:31] VITALS: BP 164/106; TEMP 97.8; O2SAT 100
--- NOTE | 2024-02-06 10:02 | EKG ---
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
== END 2024-02-05 00:08 | disposition home or self-care (01) ==
LOC: ER 19:41
DX: R10.9 Unspecified abdominal pain (principal); R11.10 Vomiting, unspecified; I12.0 Hypertensive chronic kidney disease with stage 5 chronic kidney disease or end stage renal disease; N18.6 End stage renal disease; Z99.2 Dependence on renal dialysis; N83.202 Unspecified ovarian cyst, left side; Z91.158 Patient's noncompliance with renal dialysis for other reason
CPT/HCPCS: 93005; 85025; 80048; 36415; 83735; 84703; 85610; 80076; 84484; 83880; 74176; 71045; 96375; 96374; 99284; J2765; J2405

== ENCOUNTER 2024-02-14 08:54 | Emergency (ER) | payer OTHER ==
[2024-02-14] MEDS ORDERED: HYDROCODONE/APAP 7.5/325 MG TAB ONE (09:10)
[2024-02-14] MEDS ORDERED: HYDRALAZINE HCL 20 MG/ML VIAL ONE (09:10)
[2024-02-14 10:35] LABS: Absolute Eosinophils 0.5 K/uL (0-0.5); Absolute Lymphocytes (CBC) 1.2 K/uL (0.7-4.9); Absolute Monocytes 0.6 K/uL (0.1-1.3); Absolute Neutrophil 2.7 K/uL (1.8-8.0); Basophils % 0.8 % (0-1.3); Eosinophils % 9.7 % (0-4.4); Hematocrit 34.8 % (36.0-45.0); Hemoglobin 11.1 g/dL (12.0-15.0); Lymphocytes % 23.4 % (15.3-44.8); MCH 30.4 pg (27.0-35.0); MCV 94.9 fL (80-100); MPV 7.9 fL (7.6-11.3); Monocytes % 12.6 % (3.3-12.3); Neutrophils % 53.5 % (41.7-73.7); Platelets 252 thou/uL (152-406); RBC Red Blood Cell Count 3.67 M/uL (3.86-4.86); Red Cell Distribution Width 15.6 % (12.1-15.2)
[2024-02-14 10:50] LABS: SARS-CoV-2 Antigen CONTROL BLUE LINE VIS/BG OK; SARS-CoV-2 Antigen Rapid Res Negative (Negative)
[2024-02-14] MEDS ORDERED: MORPHINE 2 MG/ML SYR ONE ×2 (10:52→11:40)
[2024-02-14 10:55] LABS: ALT/SGPT < 14 U/L (13-56); AST/SGOT 11 U/L (15-37); Albumin 3.5 g/dL (3.4-5.0); Albumin/Globulin Ratio 0.8 (1.1-1.8); Alkaline Phosphatase 87 U/L (45-117); Anion Gap 10.9 mEq/L (5.0-15.0); BUN Blood Urea Nitrogen 25 mg/dL (7-18); Bicarbonate 28 mEq/L (21-32); Bilirubin Direct < 0.2 mg/dL (0-0.2); Bilirubin Indirect, Calculated 0.2 mg/dL (0.2-0.8); Bilirubin Total 0.4 mg/dL (0.2-1.0); Globulin 4.5 g/dL (2.3-3.5); Glomerular Filtration Rate 8 ml/min (=/>90); Glucose Level 113 mg/dL (74-106); Magnesium 2.2 mg/dL (1.6-2.4); Potassium 3.9 mEq/L (3.5-5.1); Sodium Level 138 mEq/L (136-145); Troponin High Sensitivity 24.8 pg/mL (<58.9)
--- NOTE | 2024-02-14 11:03 | RAD REPORT ---
EXAM DESCRIPTION: RADChest Single View02/14/2024 10:28 am CLINICAL HISTORY: DYSPNEA COMPARISON: Chest Single View dated 02/04/2024; Chest Single View dated 01/16/2024; Chest Pa And Lat (2 Views) dated 07/23/2023; Chest Pa And Lat (2 Views) dated 07/21/2023 TECHNIQUE: Portable AP view of the chest. FINDINGS: The lungs are clear. No pneumothorax or effusion. The cardiomediastinal contours are unre markable. IMPRESSION: No acute cardiopulmonary process.
--- NOTE | 2024-02-14 11:43 | ER ---
Nurse's Notes [facility] Name: Nely Quinones Age: 38 yrs Sex: Female : 1985 Arrival Date: 02/14/2024 Time: 08:54 Bed 4 Private MD: Diagnosis: Acute bronchiolitis, unspecified Presentation: 02/13 09:03 Chief complaint: Patient states: had dialysis yesterday and they pulled 2 Liters off iw but she still feels SOb and has chest congestion and a cough for over a week. Coronavirus screen: Client presents with at least one sign or symptom that may indicate coronavirus-19. Ebola Screen: No symptoms or risks identified at this time. Initial Sepsis Screen: Does the patient meet any 2 criteria? No. Patient's initial sepsis screen is negative. Does the patient have a suspected source of infection? No. Patient's initial sepsis screen is negative. Risk Assessment: Do you want to hurt yourself or someone else? Patient reports no desire to harm self or others. 09:03 Method Of Arrival: Ambulatory iw 09:03 Acuity: LORENA 3 iw 09:03 Onset of symptoms was February 06, 2024. Triage Assessment: 09:23 General: Appears in no apparent distress. Behavior is calm, cooperative. Respiratory: mb9 Reports shortness of breath the patient has mild shortness of breath. Historical: - Allergies: 09:05 No Known Allergies; iw - PMHx: 09:03 chronic kidney disease (Left upper arm fist); Dialysis; MWF; Hypertensive disorder; iw - PSHx: 09:03 Left upper arm fistula; iw - Immunization history:: Adult Immunizations up to date. - Infectious Disease History:: Denies. - Social history:: Smoking status: Patient denies any tobacco usage or history of. - Family history:: not pertinent. Screenin:23 [facility] ED Fall Risk Assessment (Adult) History of falling in the last 3 months, mb9 including since admission No falls in past 3 months (0 pts) Confusion or Disorientation No (0 pts) Intoxicated or Sedated No (0 pts) Impaired Gait No (0 pts) Mobility Assist Device Used No (0 pt) Altered Elimination No (0 pt) Score/Fall Risk Level 0 - 2 = Low Risk Oriented to surroundings, Maintained a safe environment, Educated pt \T\ family on fall prevention, incl call for assistance when getting out of bed. Abuse screen: Denies threats or abuse. Nutritional screening: No deficits noted. Tuberculosis screening: No symptoms or risk factors identified. Assessment: 09:21 General: Appears in no apparent distress. Behavior is calm, cooperative. Pain: mb9 Complains of pain in chest Pain does not radiate. Pain currently is 10 out of 10 on a pain scale. Quality of pain is described as throbbing, Pain began suddenly. Neuro: Carter Agitation-Sedation Scale (RASS): 0 - Alert and Calm Level of Consciousness is awake, alert, obeys commands, Oriented to person, place, time, situation, Appropriate for age. Cardiovascular: Reports chest pain, shortness of breath, Heart tones S1 S2 present Patient's skin is warm and dry. Rhythm is regular. Respiratory: Airway is patent Respiratory effort is even, unlabored, Respiratory pattern is regular, symmetrical, Breath sounds are clear bilaterally. GI: Abdomen is flat, non-distended. : No signs and/or symptoms were reported regarding the genitourinary system. EENT: No signs and/or symptoms were reported regarding the EENT system. Derm: Skin is pink, warm \T\ dry. Musculoskeletal: Range of motion: intact in all extremities. 10:00 Reassessment: Unable to get IV access. Charge nurse and ERP notified. Charge nurse at mb9 bedside. 10:41 Reassessment: No changes from previously documented assessment. Patient and/or family mb9 updated on plan of care and expected duration. Pain level reassessed. Patient is alert, oriented x 3, equal unlabored respirations, skin warm/dry/pink. 11:43 Reassessment: D/C pending medication administration wait time. mb9 11:47 GI: Pt is actively vomiting bile. mb9 11:56 Reassessment: Patient is alert, oriented x 3, equal unlabored respirations, skin bp warm/dry/pink. Patient states symptoms have improved. Vital Signs: 09:03 BP 190 / 133; Pulse 92; Resp 18; Temp 97.4; Pulse Ox 99% on R/A; Weight 63.5 kg; Height iw 5 ft. 2 in. ; Pain 10/10; 10:36 BP 169 / 110; Pulse 96; Resp 16; Pulse Ox 100% on R/A; mb9 11:13 BP 160 / 98; Pulse 89; Resp 18; Pulse Ox 100% on R/A; mb9 11:56 BP 161 / 99; Pulse 95; Resp 16; Pulse Ox 97% ; bp 09:03 Body Mass Index 25.60 (63.50 kg, 157.48 cm) iw 09:03 Pain Scale: Adult iw ED Course: 08:55 Patient arrived in ED. mr 08:58 Michele Yeager, RN is Primary Nurse. bp 09:00 Primary Nurse role handed off by Michele Yeager, CHELA mb9 09:00 Nely Calvo, CHELA is Primary Nurse. mb9 09:01 Clayton Friend MD is Attending Physician. rt 09:04 Triage completed. iw 09:04 Arm band placed on. iw 09:22 Placed in gown. Bed in low position. Call light in reach. Side rails up X 1. Provided mb9 Education on: press call light if needing anything. Client placed on continuous cardiac and pulse oximetry monitoring. NIBP monitoring applied. satellite project site monitor on. 09:22 EKG done, by ED staff, reviewed by Clayton Friend MD. Missed attempt(s): 22 gauge in mb9 right hand. Bleeding controlled, band aid applied, catheter tip intact. 10:27 Inserted saline lock: 24 gauge in right wrist, using aseptic technique. Blood iw collected. flushed with 5 ml NS. 10:28 Influenza Screen (a \T\ B) Sent. iw 10:28 SARS RAPID Sent. iw 10:30 XRAY Chest (1 view) In Process Unspecified. EDMS 10:36 Patient requests pain medication. mb9 11:13 Patient requests pain medication. mb9 11:43 Patient requests pain medication. mb9 11:49 No provider procedures requiring assistance completed. IV discontinued, intact, bp bleeding controlled, No redness/swelling at site. Pressure dressing applied. Administered Medications: 09:23 Drug: Hydrocodone-Acetaminophen PO (7.5 mg-325 mg) 1 tabs PO once Route: PO; mb9 11:43 Follow up: Response: No adverse reaction mb9 10:27 Drug: hydrALAZINE IVP 20 mg IVP once Route: IVP; Site: right wrist; iw 11:43 Follow up: Response: No adverse reaction mb9 10:56 Drug: morphine IVP or IV 2 mg IVP once over 4 mins Route: IVP; Infused Over: 4 mins; mb9 Site: right wrist; 11:47 Follow up: Response: No adverse reaction mb9 11:43 Drug: morphine IVP or IV 2 mg IVP once over 4 mins Route: IVP; Infused Over: 4 mins; mb9 Site: right wrist; 11:49 Follow up: Response: No adverse reaction bp 11:48 Drug: Ondansetron Oral Disintegrating Tablet Oral Disintegrating Tablet 4 mg PO once bp Route: PO; 11:49 Follow up: Response: No adverse reaction bp Medication: 09:23 VIS not applicable for this client. mb9 Outcome: 11:42 Discharge ordered by MD. rt 11:57 Discharged to home ambulatory, bp 11:57 Condition: stable 11:57 Discharge instructions given to patient, Instructed on discharge instructions, follow up and referral plans. medication usage, Demonstrated understanding of instructions, follow-up care, medications, Prescriptions given X 3, 11:58 Patient left the ED. bp Signatures: Dispatcher [employer] EDMS Nely Steele, Reg Reg mr Iona Jackson, CHELA [place] iw Michele Yeager RN RN bp Wilkerson, Mary Beth, CHELA RN mb9 Clayton Friend MD MD rt Corrections: (The following items were deleted from the chart) 09:08 09:03 Pulse 92bpm; Resp 18bpm; Pulse Ox 99% RA; iw iw 09:08 09:03 Pulse 92bpm; Resp 18bpm; Pulse Ox 99% RA; Temp 97.4F; 63.5 kg; Height 5 ft. 2 iw in.; BMI: 25.6; Pain 10/10, Adult; iw 10:41 10:36 BP 176 / 115; Pulse 96bpm; Resp 16bpm; Pulse Ox 100% RA; mb9 mb9
--- NOTE | 2024-02-14 11:43 | EDPHYS ---
Physician Documentation [facility] Name: Nely Quinones Age: 38 yrs Sex: Female : 1985 Arrival Date: 02/14/2024 Time: 08:54 Bed 4 Private MD: ED Physician Clayton Friend HPI: 02/13 09:12 This 38 yrs old Black Female presents to ER via Ambulatory with complaints of Breathing rt Difficulty. 09:12 Patient with history of ESRD, last dialyzed yesterday presents to the ED with breathing rt difficulty. Patient states that she believes that she has fluid on her lungs. Reports of pain to her chest, pain to her side where she has a known ovarian cyst. States that she is below her dry weight. Denies other acute complaints at this time, symptoms are moderate in severity, no other aggravating or elevating factors.. Historical: - Allergies: 09:05 No Known Allergies; iw - PMHx: 09:03 chronic kidney disease (Left upper arm fist); Dialysis; MWF; Hypertensive disorder; iw - PSHx: 09:03 Left upper arm fistula; iw - Immunization history:: Adult Immunizations up to date. - Infectious Disease History:: Denies. - Social history:: Smoking status: Patient denies any tobacco usage or history of. - Family history:: not pertinent. ROS: 09:12 Constitutional: Negative for fever, chills, and weight loss, Abdomen/GI: Negative for rt abdominal pain, nausea, vomiting, diarrhea, and constipation, MS/Extremity: Negative for injury and deformity, Skin: Negative for injury, rash, and discoloration, Neuro: Negative for headache, weakness, numbness, tingling, and seizure, 09:12 Cardiovascular: Positive for chest pain, Negative for edema, 09:12 Respiratory: Positive for cough, shortness of breath, Exam: 09:12 Constitutional: This is a well developed, well nourished patient who is awake, alert, rt and in no acute distress. Head/Face: Normocephalic, atraumatic. Chest/axilla: Normal chest wall appearance and motion. Nontender with no deformity. No lesions are appreciated. Cardiovascular: Regular rate and rhythm with a normal S1 and S2. No gallops, murmurs, or rubs. Normal PMI, no JVD. No pulse deficits. Respiratory: Lungs have equal breath sounds bilaterally, clear to auscultation and percussion. No rales, rhonchi or wheezes noted. No increased work of breathing, no retractions or nasal flaring. Abdomen/GI: Soft, non-tender, with normal bowel sounds. No distension or tympany. No guarding or rebound. No evidence of tenderness throughout. Skin: Warm, dry with normal turgor. Normal color with no rashes, no lesions, and no evidence of cellulitis. MS/ Extremity: Pulses equal, no cyanosis. Neurovascular intact. Full, normal range of motion. Neuro: Awake and alert, GCS 15, oriented to person, place, time, and situation. Cranial nerves II-XII grossly intact. Motor strength 5/5 in all extremities. Sensory grossly intact. Cerebellar exam normal. Normal gait. 09:12 ECG was reviewed by the Attending Physician. Vital Signs: 09:03 BP 190 / 133; Pulse 92; Resp 18; Temp 97.4; Pulse Ox 99% on R/A; Weight 63.5 kg; Height iw 5 ft. 2 in. ; Pain 10/10; 10:36 BP 169 / 110; Pulse 96; Resp 16; Pulse Ox 100% on R/A; mb9 11:13 BP 160 / 98; Pulse 89; Resp 18; Pulse Ox 100% on R/A; mb9 11:56 BP 161 / 99; Pulse 95; Resp 16; Pulse Ox 97% ; bp 09:03 Body Mass Index 25.60 (63.50 kg, 157.48 cm) iw 09:03 Pain Scale: Adult iw MDM: 09:01 Patient medically screened. rt 15:18 Differential diagnosis: Bronchitis, pneumonia, fluid overload. Antibiotic rt administration: Not indicated, the patient does not have an appreciated infiltrate. Data reviewed: vital signs, nurses notes, lab test result(s), EKG, radiologic studies. Consideration of Admission/Observation Vital signs improving, no hypoxia, unremarkable workup, no indications for admission at this time. I considered the following discharge prescriptions or medication management in the emergency department Medications were administered in the Emergency Department. See MAR. Independent interpretation of the following test(s) in the Emergency Department X-Ray: My interpretation is No consolidation, edema seen on my interpretation of x-ray images. Test considered but Not performed: CT: Low suspicion for pulmonary embolus, CT angiogram not. Counseling: I had a detailed discussion with the patient and/or guardian regarding the historical points, exam findings, and any diagnostic results supporting the discharge/admit diagnosis, lab results, radiology results, the need for outpatient follow up. 02/13 09:05 Order name: Basic Metabolic Panel; Complete Time: 11:01 rt 02/13 09:05 Order name: CBC with Diff; Complete Time: 10:50 rt 02/13 09:05 Order name: LFT's; Complete Time: 11:01 rt 02/13 09:05 Order name: Magnesium; Complete Time: 11:01 rt 02/13 09:05 Order name: Troponin HS; Complete Time: 11:01 rt 02/13 09:05 Order name: Influenza Screen (a \T\ B); Complete Time: 10:50 rt 02/13 09:05 Order name: SARS RAPID; Complete Time: 10:50 rt 02/13 09:05 Order name: XRAY Chest (1 view); Complete Time: 11:19 rt 02/13 09:05 Order name: EKG; Complete Time: 09:06 rt 02/13 09:05 Order name: Cardiac monitoring; Complete Time: 09:21 rt 02/13 09:05 Order name: EKG - Nurse/Tech; Complete Time: 09:21 rt 02/13 09:05 Order name: IV Saline Lock; Complete Time: 10:28 rt 02/13 09:05 Order name: Labs collected and sent; Complete Time: 10:27 rt 02/13 09:05 Order name: O2 Per Protocol; Complete Time: 09:21 rt 02/13 09:05 Order name: O2 Sat Monitoring; Complete Time: 09:21 rt EC:12 Rate is 91 beats/min. Rhythm is regular, Normal Sinus Rhythm with No ectopy. QRS [place] rt is Normal. MI interval is normal. QRS interval is normal. QT interval is prolonged at 516 msec. No Q waves. Clinical impression: NSR w/ Non-specific ST/T Changes. Administered Medications: 09:23 Drug: Hydrocodone-Acetaminophen PO (7.5 mg-325 mg) 1 tabs PO once Route: PO; mb9 11:43 Follow up: Response: No adverse reaction mb9 10:27 Drug: hydrALAZINE IVP 20 mg IVP once Route: IVP; Site: right wrist; iw 11:43 Follow up: Response: No adverse reaction mb9 10:56 Drug: morphine IVP or IV 2 mg IVP once over 4 mins Route: IVP; Infused Over: 4 mins; mb9 Site: right wrist; 11:47 Follow up: Response: No adverse reaction mb9 11:43 Drug: morphine IVP or IV 2 mg IVP once over 4 mins Route: IVP; Infused Over: 4 mins; mb9 Site: right wrist; 11:49 Follow up: Response: No adverse reaction bp 11:48 Drug: Ondansetron Oral Disintegrating Tablet Oral Disintegrating Tablet 4 mg PO once bp Route: PO; 11:49 Follow up: Response: No adverse reaction bp Disposition Summary: 02/14/24 11:42 Discharge Ordered Notes: Location: Home rt Problem: new rt Symptoms: have improved rt Condition: Stable rt Diagnosis - Acute bronchiolitis, unspecified rt Followup: rt - With: Private Physician - When: 2 - 3 days - Reason: Discharge Instructions: - Discharge Summary Sheet rt - Acute Bronchitis, Adult rt Forms: - Medication Reconciliation Form rt - Antibiotic Education rt - Prescription Opioid Use rt - Patient Portal Instructions rt - Leadership Thank You Letter rt Prescriptions: - acetaminophen-codeine 300-30 mg Oral tablet - take 1 tablet ORAL route every 6 hours; 12 tablet; Refills: 0, Product rt Selection Permitted - albuterol sulfate 90 mcg/actuation Inhalation HFA Aerosol Inhaler - inhale 3 puff INHALATION route once; 2 Each; Refills: 0, Product Selection rt Permitted - Prednisone 20 mg Oral Tablet - take 2 tablets ORAL route once daily for 5 days; 10 tablet; Refills: 0, Product rt Selection Permitted Signatures: Dispatcher [employer] Iona Moore, RN CHELA iw Michele Yeager RN RN Nely Bullard RN RN mb9 Clayton Friend MD MD rt
[2024-02-14] MEDS ORDERED: ONDANSETRON 4 MG (ODT) TAB ONE (11:46)
[2024-02-14 12:02] VITALS: TEMP 97.4
[2024-02-14 12:07] VITALS: BP 161/99; O2SAT 97
--- NOTE | 2024-02-15 12:11 | EKG ---
Test Date: 2024-02-14 Test Time: 09:10:51 Supervisor Assembly Stock: MB MEASUREMENT RESULTS: Intervals: Rate: 91 AR: 150 QRSD: 70 QT: 420 QTc: 516 [place]: P: 69 AR: 150 QRS: 75 T: 51 INTERPRETIVE STATEMENTS: Normal sinus rhythm Biatrial enlargement Nonspecific ST abnormality Prolonged QT Abnormal ECG Compared to ECG 02/04/2024 21:24:58 Atrial abnormality now present ST (T wave) deviation now present Prolonged QT interval now present Myocardial infarct finding no longer present Electronically Signed On 02-15-24 12:07:47 CDT by Gregg Lares
== END 2024-02-14 11:58 | disposition home or self-care (01) ==
LOC: ER 08:54
DX: J21.9 Acute bronchiolitis, unspecified (principal); R07.9 Chest pain, unspecified; Z11.52 Encounter for screening for COVID-19; I12.0 Hypertensive chronic kidney disease with stage 5 chronic kidney disease or end stage renal disease; N18.6 End stage renal disease; Z99.2 Dependence on renal dialysis
CPT/HCPCS: 93005; 85025; 80048; 36415; 83735; 80076; 84484; 87804 ×2; 71045; 96375; 96374; 99285; 87811; Q0162; J0360; J2270 ×2

== ENCOUNTER 2024-04-21 17:16 | Emergency (ER) | payer OTHER ==
[2024-04-21 18:11] LABS: Absolute Basophils 0.1 K/uL (0-0.5); Absolute Eosinophils 0.4 K/uL (0-0.5); Absolute Lymphocytes (CBC) 1.3 K/uL (0.7-4.9); Absolute Monocytes 0.4 K/uL (0.1-1.3); Basophils % 1.3 % (0-1.3); Eosinophils % 6.1 % (0-4.4); Hematocrit 33.8 % (36.0-45.0); Hemoglobin 11.3 g/dL (12.0-15.0); Lymphocytes % 21.5 % (15.3-44.8); MCH 30.3 pg (27.0-35.0); MCHC 33.4 g/dL (32.0-36.0); MCV 90.6 fL (80-100); Monocytes % 6.4 % (3.3-12.3); Neutrophils % 64.7 % (41.7-73.7); Nucleated Red Blood Cells % 0.2 % (0-0); Platelets 271 thou/uL (152-406); RBC Red Blood Cell Count 3.73 M/uL (3.86-4.86); Red Cell Distribution Width 16.8 % (12.1-15.2)
[2024-04-21 18:30] LABS: Albumin 3.6 g/dL (3.4-5.0); Albumin/Globulin Ratio 0.8 (1.1-1.8); Anion Gap 12.6 mEq/L (5.0-15.0); Bilirubin Direct 0.2 mg/dL (0-0.2); Bilirubin Indirect, Calculated 0.3 mg/dL (0.2-0.8); Bilirubin Total 0.5 mg/dL (0.2-1.0); Globulin 4.4 g/dL (2.3-3.5); Potassium 3.6 mEq/L (3.5-5.1); Troponin High Sensitivity 43.1 pg/mL (<58.9)
--- NOTE | 2024-04-21 18:44 | RAD REPORT ---
EXAMINATION: ONE VIEW CHEST XR CLINICAL INDICATION: Female, 38 years old.CHEST PAIN TECHNIQUE: 1 View, AP supine, X-ray of the chest was performed. [id number]. COMPARISON: 03/08/2024 FINDINGS: Lungs and pleura: Diffuse prominence of the pulmonary interstitium. No effusion. Heart and mediastinum: Cardiomegaly. Unremarkable mediastinal contours. Osseous structures: No acute abnormality. Tubes/lines: None Other: None. IMPRESSION: Pulmonary vascular congestion.
[2024-04-21] MEDS ORDERED: FENTANYL CITR 100 MCG/2 ML ONE (19:22)
[2024-04-21] MEDS ORDERED: ACETAMINOPHEN 500 MG TAB ONE (19:22)
[2024-04-21 19:41] LABS: SARS-CoV-2 Antigen CONTROL BLUE LINE VIS/BG OK; SARS-CoV-2 Antigen Rapid Res Negative (Negative)
--- NOTE | 2024-04-21 20:26 | ER ---
Nurse's Notes [facility] Name: Nely Quinones Age: 38 yrs Sex: Female : 1985 Arrival Date: 04/21/2024 Time: 17:16 Bed 3 Private MD: Diagnosis: Myalgias Presentation: 04/21 17:23 Chief complaint: Patient states: Pt c/o weakness, visual changes, chest pressure and tl4 high blood pressure since yesterday after dialysis yesterday. Pt states no complications during dialysis. Pt states she took extra BP medication today. Coronavirus screen: At this time, the client does not indicate any symptoms associated with coronavirus-19. Ebola Screen: No symptoms or risks identified at this time. Initial Sepsis Screen: Does the patient meet any 2 criteria? No. Patient's initial sepsis screen is negative. Does the patient have a suspected source of infection? No. Patient's initial sepsis screen is negative. Risk Assessment: Do you want to hurt yourself or someone else? Patient reports no desire to harm self or others. Onset of symptoms was April 20, 2024. 17:23 Method Of Arrival: Ambulatory tl4 17:23 Acuity: LORENA 2 tl4 Triage Assessment: 17:26 General: Appears distressed, Behavior is cooperative. Pain: Complains of pain in chest. tl4 EENT: No signs and/or symptoms were reported regarding the EENT system. Neuro: Level of Consciousness is awake, alert, obeys commands, Oriented to person, place, time, situation, Reports weakness. Cardiovascular: Reports chest pain, Capillary refill < 3 seconds Patient's skin is warm and dry. Respiratory: Airway is patent Respiratory effort is even, unlabored, Respiratory pattern is regular, symmetrical. GI: No signs and/or symptoms were reported involving the gastrointestinal system. : No signs and/or symptoms were reported regarding the genitourinary system. Derm: No signs and/or symptoms reported regarding the dermatologic system. Musculoskeletal: No signs and/or symptoms reported regarding the musculoskeletal system. 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 - Infectious Disease History:: Denies. - Social history:: Smoking status: Patient denies any tobacco usage or history of. - Family history:: not pertinent. Screenin:43 [facility] ED Fall Risk Assessment (Adult) History of falling in the last 3 months, ko1 including since admission No falls in past 3 months (0 pts) Confusion or Disorientation No (0 pts) Intoxicated or Sedated No (0 pts) Impaired Gait No (0 pts) Mobility Assist Device Used No (0 pt) Altered Elimination No (0 pt) Score/Fall Risk Level 0 - 2 = Low Risk Oriented to surroundings, Maintained a safe environment, Educated pt \T\ family on fall prevention, incl call for assistance when getting out of bed, Assessed \T\ reinforced patient's understanding of fall precautions, Provided non-skid footwear, Hourly rounding (assess needs \T\ fall precautionary measures) done. Abuse screen: Denies threats or abuse. Denies injuries from another. Nutritional screening: No deficits noted. Tuberculosis screening: No symptoms or risk factors identified. Assessment: 18:43 VAN Scoring: Arm Drift: Patients demonstrates NO arm weakness. Patient is VAN Negative. ko1 Visual Disturbance: No visual disturbance noted. Aphasia: No aphasia noted. Neglect: No neglect noted. Candice Swallow Protocol Exclusion Criteria: Exclusion Criteria Result: Proceed Brief Cognitive Screen What is your name? Normal, Where are you right now? Normal, What year is it? Normal. Oral Mechanism Examination Facial Symmetry: Normal, Motion: Normal, Lip Closure: Normal, Oral Mechanism Result: Normal. 3 oz Water Swallow Challenge: Pt able to drink all water without stopping, coughing, choking or throat clearing: Yes Result: PASS Notified: Clayton Friend MD. TNKase (Tenecteplase) Screening: Not Applicable. 18:46 General: Appears in no apparent distress. Behavior is calm, cooperative, appropriate ko1 for age. Neuro: No deficits noted. Cardiovascular: No deficits noted. Respiratory: No deficits noted. GI: No deficits noted. : No deficits noted. EENT: No deficits noted. Derm: No deficits noted. Musculoskeletal: No deficits noted. 19:05 General: Appears in no apparent distress. comfortable, Behavior is calm, cooperative, jj7 appropriate for age. Pain: Complains of pain in all over body aches. Neuro: No deficits noted. Cardiovascular: No deficits noted. Vital Signs: 17:23 BP 101 / 64; Pulse 78; Resp 16; Temp 99; Pulse Ox 100% on R/A; Weight 63.5 kg; Height 5 tl4 ft. 0 in. ; Pain 8/10; 18:43 BP 102 / 70; Pulse 77; Resp 16; Pulse Ox 98% ; ko1 19:30 BP 88 / 53; Pulse 72; Resp 17; Pulse Ox 100% ; jj7 20:31 BP 103 / 90; Pulse 70; Resp 16; Temp 98.2; Pulse Ox 100% ; jj7 17:23 Body Mass Index 27.34 (63.50 kg, 152.4 cm) tl4 17:23 Pain Scale: Adult tl4 NIH Stroke Scale Scores: 18:43 NIHSS Score: 0 ko1 ED Course: 17:18 Patient arrived in ED. ra3 17:26 Triage completed. tl4 17:27 Arm band placed on right wrist. tl4 17:31 Clayton Friend MD is Attending Physician. rt 17:51 Nena Dunn, RN is Primary Nurse. ko1 17:57 Missed attempt(s): 22 gauge in right wrist. Bleeding controlled, band aid applied, aa5 catheter tip intact. 17:59 Initial lab(s) drawn, by me, sent to lab. Inserted saline lock: 22 gauge in right hand, aa5 using aseptic technique. Blood collected. Flushed with 10 mL NS. 18:37 XRAY Chest (1 view) In Process Unspecified. EDMS 18:43 Patient has correct armband on for positive identification. Bed in low position. Call ko1 light in reach. Side rails up X2. Provided Education on: labs. Client placed on continuous cardiac and pulse oximetry monitoring. NIBP monitoring applied. clinical research monitor on. Door closed. Noise minimized. Lights dimmed. Pillow given. 18:43 No provider procedures requiring assistance completed. ko1 19:02 Attending Physician role handed off by Clayton Friend MD ec2 19:02 Yao Wadsworth MD is Attending Physician. ec2 19:19 Troponin High Sensitivity Sent. jj7 19:19 SARS RAPID Sent. jj7 19:19 Influenza Screen (a \T\ B) Sent. jj7 19:34 SARS RAPID Sent. jj7 19:34 Influenza Screen (a \T\ B) Sent. jj7 20:46 IV discontinued, intact, bleeding controlled, No redness/swelling at site. Pressure jj7 dressing applied. Administered Medications: 19:22 Drug: fentaNYL (PF) IVP 50 mcg IVP once Route: IVP; Site: right hand; jj7 20:46 Follow up: Response: Marked relief of symptoms jj7 19:22 Drug: Acetaminophen PO 1000 mg PO once Route: PO; jj7 20:46 Follow up: Response: Marked relief of symptoms jj7 20:48 Follow up: Response: No adverse reaction bm8 20:45 Not Given (medication unavailablee): ciprodexdrops 4 drops Otic once bm8 Medication: 19:05 VIS not applicable for this client. jj7 Outcome: 20:25 Discharge ordered by . ec2 20:46 Discharged to home ambulatory, jj7 20:46 Condition: improved 20:46 Discharge instructions given to patient, Instructed on discharge instructions, medication usage, Demonstrated understanding of instructions, medications, Prescriptions given X 1, 20:49 Patient left the ED. bm8 NIH Stroke Scale - NIH Stroke Score Date: 04/21/2024 Time: 18:43 Total Score = 0 10. Dysarthria (speech clarity - read or repeat words) - 0(Normal) 11. Extinction and Inattention (visual/tactile/auditory/spatial/personal) - 0(No abnormality) 1a. Level of Consciousness (LOC) - 0(Alert) 1b. Level of Consciousness (LOC) (Month \T\ Age) - 0(Both) 1c. LOC Commands (Open \T\ Closes Eyes/Fiberglass Machine Operator) - 0(Both) 2. Best Gaze (Lateral Gaze Paresis) - 0(Normal) 3. Visual Field Loss - 0(No visual loss) 4. Facial Palsy - 0(Normal) 5a. Left Arm: Motor (10-second hold) - 0(No drift) 5b. Right Arm: Motor (10-second hold) - 0(No drift) 6a. Left Leg: Motor (5-second hold - always test supine) - 0(No drift) 6b. Right Leg: Motor (5-second hold - always test supine) - 0(No drift) 7. Limb Ataxia (finger/nose \T\ heel/genao - test with eyes open) - 0(Absent) 8. Sensory Loss (pinprick arms/legs/face) - 0(Normal) 9. Best Language: Aphasia (description/naming/reading) - 0(No aphasia) Initials: ko1 Signatures: Dispatcher [employer] Amada Romero, RN RN aa5 Nena Dunn RN RN ko1 Deb Willoughby RN RN jj7 Clayton Friend MD MD rt Corral, Edwin, MD MD ec2 Lucas Reynolds RN RN tl4 Alea Cabrera ra3 Carlin Al, RN RN bm8
--- NOTE | 2024-04-21 20:26 | EDPHYS ---
Physician Documentation [facility] Name: Nely Quinones Age: 38 yrs Sex: Female : 1985 Arrival Date: 04/21/2024 Time: 17:16 Bed 3 Private MD: ED Physician Yao Wadsworth HPI: 04/21 19:06 This 38 yrs old Black Female presents to ER via Ambulatory with complaints of High rt Blood Pressure, Weakness. 19:06 Patient presents to the ED with generalized weakness, generalized malaise. Patient rt states that her blood pressure was high today, up to about 190, she took extra blood pressure medications that drop her blood pressure down and states that she still feels weak. Reported chest tightness. Denies other acute complaints at this time, symptoms are moderate in severity, no other aggravating alleviating factors.. 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 - Infectious Disease History:: Denies. - Social history:: Smoking status: Patient denies any tobacco usage or history of. - Family history:: not pertinent. ROS: 19:06 Constitutional: Negative for fever, chills, and weight loss, Respiratory: Negative for rt shortness of breath, cough, wheezing, and pleuritic chest pain, Abdomen/GI: Negative for abdominal pain, nausea, vomiting, diarrhea, and constipation, Skin: Negative for injury, rash, and discoloration, 19:06 Constitutional: Positive for malaise, Negative for fever, 19:06 Cardiovascular: Positive for chest pain, Negative for edema, 19:06 Neuro: Positive for weakness, Negative for loss of consciousness, Exam: 19:06 Constitutional: This is a well developed, well nourished patient who is awake, alert, rt and in no acute distress. Head/Face: Normocephalic, atraumatic. Chest/axilla: Normal chest wall appearance and motion. Nontender with no deformity. No lesions are appreciated. Cardiovascular: Regular rate and rhythm with a normal S1 and S2. No gallops, murmurs, or rubs. Normal PMI, no JVD. No pulse deficits. Respiratory: Lungs have equal breath sounds bilaterally, clear to auscultation and percussion. No rales, rhonchi or wheezes noted. No increased work of breathing, no retractions or nasal flaring. Abdomen/GI: Soft, non-tender, with normal bowel sounds. No distension or tympany. No guarding or rebound. No evidence of tenderness throughout. Skin: Warm, dry with normal turgor. Normal color with no rashes, no lesions, and no evidence of cellulitis. MS/ Extremity: Pulses equal, no cyanosis. Neurovascular intact. Full, normal range of motion. 19:06 ENT: Bilateral otitis externa, TMs clear bilaterally. 19:06 ECG was reviewed by the Attending Physician. Vital Signs: 17:23 BP 101 / 64; Pulse 78; Resp 16; Temp 99; Pulse Ox 100% on R/A; Weight 63.5 kg; Height 5 tl4 ft. 0 in. ; Pain 8/10; 18:43 BP 102 / 70; Pulse 77; Resp 16; Pulse Ox 98% ; ko1 19:30 BP 88 / 53; Pulse 72; Resp 17; Pulse Ox 100% ; jj7 20:31 BP 103 / 90; Pulse 70; Resp 16; Temp 98.2; Pulse Ox 100% ; jj7 17:23 Body Mass Index 27.34 (63.50 kg, 152.4 cm) tl4 17:23 Pain Scale: Adult tl4 NIH Stroke Scale Scores: 18:43 NIHSS Score: 0 ko1 MDM: 17:33 Medical Screening Exam initiated rt 19:05 Data reviewed: vital signs. ED course: Patient signed out to me by previous physician, ec2 in brief arrives today for evaluation of generalized weakness. Lab work is grossly unrevealing, has known history of CKD is a dialysis dependent and has baseline renal dysfunction. CBC is nonactionable. LFTs unremarkable. Troponin within normal ranges. Chest x-ray shows some pulmonary vascular congestion. Plan is to follow-up with troponin urine studies as well as viral swabs.. 20:24 ED course: On reassessment patient is well-appearing no acute distress. Will discharge ec2 home have the patient follow-up with PCP. Return precautions given.. 04/21 17:37 Order name: Basic Metabolic Panel; Complete Time: 18:41 rt 04/21 17:37 Order name: CBC with Diff; Complete Time: 18:41 rt 04/21 17:37 Order name: LFT's; Complete Time: 18:41 rt 04/21 17:37 Order name: Troponin HS; Complete Time: 18:41 rt 04/21 19:01 Order name: Influenza Screen (a \T\ B); Complete Time: 19:59 rt 04/21 19:01 Order name: SARS RAPID; Complete Time: 19:59 rt 04/21 19:01 Order name: Troponin High Sensitivity; Complete Time: 19:59 rt 04/21 17:37 Order name: XRAY Chest (1 view); Complete Time: 18:50 rt 04/21 17:37 Order name: EKG; Complete Time: 17:37 rt 04/21 17:37 Order name: Cardiac monitoring; Complete Time: 17:37 rt 04/21 17:37 Order name: EKG - Nurse/Tech; Complete Time: 17:51 rt 04/21 17:37 Order name: IV Saline Lock; Complete Time: 18:43 rt 04/21 17:37 Order name: Labs collected and sent; Complete Time: 18:43 rt 04/21 17:37 Order name: O2 Per Protocol; Complete Time: 17:37 rt 04/21 17:37 Order name: O2 Sat Monitoring; Complete Time: 17:37 rt EC:06 Rate is 74 beats/min. Rhythm is regular, Normal Sinus Rhythm with No ectopy. QRS [place] rt is Normal. SC interval is normal. QRS interval is normal. QT interval is prolonged at 557 msec. No Q waves. Clinical impression: NSR w/ Non-specific ST/T Changes. Administered Medications: 19:22 Drug: fentaNYL (PF) IVP 50 mcg IVP once Route: IVP; Site: right hand; jj7 20:46 Follow up: Response: Marked relief of symptoms jj7 19:22 Drug: Acetaminophen PO 1000 mg PO once Route: PO; jj7 20:46 Follow up: Response: Marked relief of symptoms jj7 20:48 Follow up: Response: No adverse reaction bm8 20:45 Not Given (medication unavailablee): ciprodexdrops 4 drops Otic once bm8 Disposition Summary: 04/21/24 20:25 Discharge Ordered Notes: Location: Home ec2 Condition: Stable ec2 Diagnosis - Myalgias ec2 Followup: ec2 - With: Private Physician - When: - Reason: Re-evaluation by your physician Discharge Instructions: - Discharge Summary Sheet ec2 - Viral Illness, Adult ec2 Forms: - Medication Reconciliation Form ec2 - Antibiotic Education ec2 - Prescription Opioid Use ec2 - Patient Portal Instructions ec2 - Leadership Thank You Letter ec2 Prescriptions: - ofloxacin 0.3 % Otic drops - instill 10 drop OTIC route every 24 hours; 5 milliliter; Refills: 0, Product ec2 Selection Permitted NIH Stroke Scale - NIH Stroke Score Date: 04/21/2024 Time: 18:43 Total Score = 0 10. Dysarthria (speech clarity - read or repeat words) - 0(Normal) 11. Extinction and Inattention (visual/tactile/auditory/spatial/personal) - 0(No abnormality) 1a. Level of Consciousness (LOC) - 0(Alert) 1b. Level of Consciousness (LOC) (Month \T\ Age) - 0(Both) 1c. LOC Commands (Open \T\ Closes Eyes/Cause Analyst) - 0(Both) 2. Best Gaze (Lateral Gaze Paresis) - 0(Normal) 3. Visual Field Loss - 0(No visual loss) 4. Facial Palsy - 0(Normal) 5a. Left Arm: Motor (10-second hold) - 0(No drift) 5b. Right Arm: Motor (10-second hold) - 0(No drift) 6a. Left Leg: Motor (5-second hold - always test supine) - 0(No drift) 6b. Right Leg: Motor (5-second hold - always test supine) - 0(No drift) 7. Limb Ataxia (finger/nose \T\ heel/genao - test with eyes open) - 0(Absent) 8. Sensory Loss (pinprick arms/legs/face) - 0(Normal) 9. Best Language: Aphasia (description/naming/reading) - 0(No aphasia) Initials: ko1 Signatures: Dispatcher [employer] Deb King RN RN jj7 Clayton Friend MD MD rt Yao Wadsworth MD MD ec2 Lucas Reynolds RN RN tl4 Carlin Al RN bm8
[2024-04-21 21:24] VITALS: O2SAT 100
[2024-04-21 21:26] VITALS: BP 103/90; TEMP 98.2
--- NOTE | 2024-04-22 12:40 | EKG ---
Test Date: 2024-04-21 Test Time: 17:48:02 Cold Header Operator: MATHIEU MEASUREMENT RESULTS: Intervals: Rate: 74 WI: 152 QRSD: 74 QT: 502 QTc: 557 [place]: P: 46 WI: 152 QRS: 55 T: -7 INTERPRETIVE STATEMENTS: Normal sinus rhythm Possible Left atrial enlargement T wave abnormality, consider anterior ischemia Prolonged QT Abnormal ECG Compared to ECG 03/08/2024 19:57:32 T-wave abnormality now present Possible ischemia now present Prolonged QT interval now present ST (T wave) deviation no longer present Electronically Signed On 04-22-24 12:38:52 BULK RECEIVER by Gregg Lares
== END 2024-04-21 20:49 | disposition home or self-care (01) ==
LOC: ER 17:16
DX: M79.10 Myalgia, unspecified site (principal); R07.9 Chest pain, unspecified; R53.1 Weakness; I12.0 Hypertensive chronic kidney disease with stage 5 chronic kidney disease or end stage renal disease; N18.6 End stage renal disease; Z99.2 Dependence on renal dialysis; Z11.52 Encounter for screening for COVID-19
CPT/HCPCS: 93005; 85025; 80048; 36415; 80076; 84484 ×2; 87804 ×2; 71045; 96374; 99285; 87811; J3010

== ENCOUNTER 2024-05-14 07:00 | Inpatient (IN) | payer OTHER ==
[2024-05-14 07:21] LABS: Absolute Eosinophils 0.2 K/uL (0-0.5); Absolute Lymphocytes (CBC) 1.4 K/uL (0.7-4.9); Absolute Monocytes 0.5 K/uL (0.1-1.3); Absolute Neutrophil 4.8 K/uL (1.8-8.0); Basophils % 0.4 % (0-1.3); Eosinophils % 3.3 % (0-4.4); Hematocrit 31.8 % (36.0-45.0); Hemoglobin 10.1 g/dL (12.0-15.0); Lymphocytes % 19.8 % (15.3-44.8); MCH 30.7 pg (27.0-35.0); MCHC 31.9 g/dL (32.0-36.0); MCV 96.3 fL (80-100); MPV 7.7 fL (7.6-11.3); Monocytes % 6.9 % (3.3-12.3); Neutrophils % 69.6 % (41.7-73.7); Nucleated Red Blood Cells % 0.1 % (0-0); Platelets 301 thou/uL (152-406); Red Cell Distribution Width 20.2 % (12.1-15.2)
[2024-05-14 07:27] LABS: PT Prothrombin Time 13.2 SECONDS (9.4-12.5); Protime INR 1.18
[2024-05-14] MEDS ORDERED: HYDRALAZINE HCL 20 MG/ML VIAL ONE (07:32)
[2024-05-14] MEDS ORDERED: PROMETHAZINE INJ 25 MG/ML AMP ONE (07:33)
[2024-05-14] MEDS ORDERED: MORPHINE 4 MG/ML SYR ONE (07:33)
--- NOTE | 2024-05-14 08:09 | RAD REPORT ---
Procedure: Chest Single View HISTORY: Shortness of breath COMPARISON: May 01, 2024 FINDINGS: Mild bilateral pulmonary opacities. No significant pleural effusion noted. The heart is markedly enlarged. IMPRESSION: Mild CHF
[2024-05-14 08:52] LABS: Troponin High Sensitivity 102.2 pg/mL (<58.9)
[2024-05-14 08:56] LABS: Anisocytosis 1+; Blood Morphology Comment NOTED (NOT SEEN); Macrocytosis 1+; Platelet Estimate ADEQ; Polychromasia 1+; White Blood Cell Scan OK (OK)
--- NOTE | 2024-05-14 08:58 | EDPHYS ---
Physician Documentation [facility] Name: Nely Quinones Age: 39 yrs Sex: Female : 1985 Arrival Date: 05/14/2024 Time: 07:00 Bed 7 Private MD: ED Physician Jaden Diaz HPI: 05/14 07:26 This 39 yrs old Black Female presents to ER via EMS with complaints of Breathing ms3 Difficulty. 07:26 Nely Quinones, a 39-year-old female, presents to the emergency department with shortness ms3 of breath and chest pain. She reports that her last dialysis session was on May 06, and her symptoms have been ongoing for 1 day. She describes the shortness of breath as similar to what she experiences when needing dialysis. She also reports chest pain, which she attributes to breathing difficulties. Nely has a history of end-stage renal disease and hypertension. Her towboat engineer is Dr. Monge.. Historical: - Allergies: 07:03 No Known Allergies; bp - PMHx: 07:03 chronic kidney disease (Left upper arm fist); Dialysis; MWF; Hypertensive disorder; bp - PSHx: 07:03 section; Left upper arm fistula; bp - Immunization history:: Adult Immunizations up to date. - Infectious Disease History:: Denies. - Social history:: Smoking status: Patient denies any tobacco usage or history of. ROS: 07:26 Constitutional: Negative for fever, and chills. ms3 07:26 Abdomen/GI: Negative for abdominal pain, nausea, vomiting, diarrhea, and constipation, MS/Extremity: Negative for injury and deformity, Skin: Negative for injury, rash, and discoloration, 07:26 Cardiovascular: Positive for chest pain, 07:26 Respiratory: Positive for shortness of breath, Exam: 07:26 Constitutional: This is a well developed, well nourished patient who is awake, alert, ms3 and in no acute distress. Neck: Trachea midline, no cervical lymphadenopathy. Supple, full range of motion without nuchal rigidity, or vertebral point tenderness. No Meningismus. Chest/axilla: Normal chest wall appearance and motion. Nontender with no deformity. Cardiovascular: Regular rate and rhythm with a normal S1 and S2. No gallops, murmurs, or rubs. Normal PMI, no JVD. No pulse deficits. Respiratory: Lungs have equal breath sounds bilaterally, clear to auscultation and percussion. No rales, rhonchi or wheezes noted. No increased work of breathing, no retractions or nasal flaring. Abdomen/GI: Soft, non-tender, with normal bowel sounds. No distension or tympany. No guarding or rebound. No evidence of tenderness throughout. Skin: Warm, dry with normal turgor. Normal color with no rashes, no lesions, and no evidence of cellulitis. 07:34 ECG was reviewed by the Attending Physician. ms3 Vital Signs: 07:01 BP 172 / 124; Pulse 94; Resp 24; Temp 98; Pulse Ox 93% ; bp 09:00 BP 172 / 111; Pulse 96; Resp 20; Pulse Ox 96% ; bp 09:46 BP 149 / 65; Pulse 96; Resp 16; Pulse Ox 97% ; bp 10:48 BP 160 / 118; Pulse 89; Resp 18; Pulse Ox 99% on R/A; bc6 MDM: 07:16 Medical Screening Exam initiated ms3 07:26 Differential diagnosis: Anemia Myocardial Infarction pulmonary edema. ms3 07:38 ED course: Discussed case with Dr Underwood. He will get patient on the schedule first ms3 thing this AM. No need for hyperkalemia tx as patient will go to dialysis soon.. 11:06 Immunization status:. Data reviewed: vital signs, nurses notes, lab test result(s), ms3 radiologic studies, and as a result, I will discharge patient. Data reviewed: EKG. Consideration of Admission/Observation Patient was admitted/placed on observation. Management of patient was discussed with the following: Hospitalist: Dr Cornejo. I considered the following discharge prescriptions or medication management in the emergency department Medications were administered in the Emergency Department. See MAR. Independent interpretation of the following test(s) in the Emergency Department EKG: See my EKG interpretation above. Counseling: I had a detailed discussion with the patient and/or guardian regarding the historical points, exam findings, and any diagnostic results supporting the discharge/admit diagnosis, lab results, radiology results, the need for outpatient follow up, to return to the emergency department if symptoms worsen or persist or if there are any questions or concerns that arise at home. ED course: Discussed case with Dr. Cornejo and he accepts admission. Discussed necessity for admission with patient. Patient understands agrees with plan. Patient has remained in stable condition while in the emergency department.. 05/14 07:04 Order name: Basic Metabolic Panel; Complete Time: 08:54 bp 05/14 07:04 Order name: CBC with Diff; Complete Time: 09:05 bp 05/14 07:04 Order name: NT PRO-BNP; Complete Time: 08:54 bp 05/14 07:04 Order name: PT-INR; Complete Time: 07:33 bp 05/14 07:04 Order name: Troponin HS; Complete Time: 08:54 bp 05/14 08:56 Order name: CBC Smear Scan; Complete Time: 09:05 EDMS 05/14 09:35 Order name: Troponin High Sensitivity EDMS 05/14 09:35 Order name: Troponin High Sensitivity EDMS 05/14 09:49 Order name: Magnesium; Complete Time: 10:34 EDMS 05/14 09:49 Order name: Phosphorus; Complete Time: 10:34 EDMS 05/14 09:49 Order name: Basic Metabolic Panel EDMS 05/14 09:49 Order name: Basic Metabolic Panel EDMS 05/14 09:49 Order name: Basic Metabolic Panel EDMS 05/14 09:49 Order name: Basic Metabolic Panel EDMS 05/14 09:49 Order name: Basic Metabolic Panel EDMS 05/14 09:49 Order name: Basic Metabolic Panel EDMS 05/14 09:49 Order name: CBC with Automated Diff EDMS 05/14 09:49 Order name: CBC with Automated Diff EDMS 05/14 09:49 Order name: CBC with Automated Diff EDMS 05/14 09:49 Order name: CBC with Automated Diff EDMS 05/14 09:49 Order name: CBC with Automated Diff EDMS 05/14 09:49 Order name: CBC with Automated Diff EDMS 05/14 09:49 Order name: Magnesium EDMS 05/14 09:49 Order name: Magnesium EDMS 05/14 09:49 Order name: Magnesium EDMS 05/14 09:49 Order name: Magnesium EDMS 05/14 09:49 Order name: Magnesium EDMS 05/14 09:49 Order name: Magnesium EDMS 05/14 09:49 Order name: Phosphorus EDMS 05/14 09:49 Order name: Phosphorus EDMS 05/14 09:49 Order name: Phosphorus EDMS 05/14 09:49 Order name: Phosphorus EDMS 05/14 09:49 Order name: Phosphorus EDMS 05/14 09:49 Order name: Phosphorus EDMS 05/14 07:04 Order name: XRAY Chest (1 view); Complete Time: 08:16 bp 1202 09:53 Order name: Angio Aorta For Dissection; Complete Time: 10:34 EDMS 05/14 07:04 Order name: EKG; Complete Time: 07:05 bp 05/14 07:04 Order name: Cardiac monitoring; Complete Time: 07:19 bp 05/14 07:04 Order name: EKG - Nurse/Tech; Complete Time: 07:19 bp 05/14 07:04 Order name: IV Saline Lock; Complete Time: 07:19 bp 05/14 07:04 Order name: Labs collected and sent; Complete Time: 07:19 bp 02 07:04 Order name: O2 Per Protocol; Complete Time: 07:04 bp 02 07:04 Order name: O2 Sat Monitoring; Complete Time: 07:04 bp 02 07:44 Order name: Labs - recollect needed: recollect green top; Complete Time: 07:57 bd EC:34 Rate is 91 beats/min. Rhythm is regular. QRS [place] is Normal. DC interval is normal. QRS ms3 interval is normal. QT interval is prolonged at 536 msec. Clinical impression: NSR w/ Non-specific ST/T Changes. Interpreted by me. Reviewed by me. Administered Medications: 07:49 Drug: morphine IVP or IV 4 mg IVP once over 4 mins Route: IVP; Infused Over: 4 mins; bp Site: right wrist; 09:38 Follow up: Response: Pain is decreased bp 07:49 Drug: Promethazine IM 12.5 mg IM once Route: IM; Site: affected area; bp 09:37 Follow up: Response: Nausea is decreased bp 07:50 Drug: hydrALAZINE IVP 10 mg IVP once Route: IVP; Site: right wrist; bp 09:37 Follow up: Response: No adverse reaction bp Disposition Summary: 05/14/24 08:57 Hospitalization Ordered Notes: Hospitalization Status: Inpatient Admission ms3 Provider: Duke Cornejo ms3 Location: Telemetry/MedSurg (Inpatient) ms3 Condition: Stable ms3 Problem: new ms3 Symptoms: are unchanged ms3 Bed/Room Type: Standard ms3 Room Assignment: 411(05/14/24 10:13) bd Diagnosis - Acute pulmonary edema ms3 - End stage renal disease ms3 - Shortness of breath ms3 - Essential (primary) hypertension ms3 Forms: - Medication Reconciliation Form ms3 - SBAR form ms3 - Leadership Thank You Letter ms3 Signatures: Dispatcher [employer] EDMS Zandra Egan Brian, RN RN bp Jaden Diaz DO DO ms3 Corrections: (The following items were deleted from the chart) 09:53 09:36 Chest Angio ordered. EDMS EDMS 10:13 08:57 ms3 bd
--- NOTE | 2024-05-14 08:58 | ER ---
Nurse's Notes [facility] Name: Nely Quinones Age: 39 yrs Sex: Female : 1985 Arrival Date: 05/14/2024 Time: 07:00 Bed 7 Private MD: Diagnosis: Acute pulmonary edema;End stage renal disease;Shortness of breath;Essential (primary) hypertension Presentation: 05/14 07:01 Chief complaint: EMS states: CP AND SOB SINCE MISSED DIALYSIS ON 05/06. Coronavirus bp screen: At this time, the client does not indicate any symptoms associated with coronavirus-19. Ebola Screen: No symptoms or risks identified at this time. Initial Sepsis Screen: Does the patient meet any 2 criteria? No. Patient's initial sepsis screen is negative. Does the patient have a suspected source of infection? No. Patient's initial sepsis screen is negative. Risk Assessment: Do you want to hurt yourself or someone else? Patient reports no desire to harm self or others. Onset of symptoms is unknown. 07:01 Method Of Arrival: EMS: [facility] bp 07:01 Acuity: LORENA 3 bp Triage Assessment: 07:03 General: Appears distressed, unkempt, Behavior is cooperative, appropriate for age, bp anxious. Pain: Complains of pain in chest. EENT: No deficits noted. Neuro: No deficits noted. Cardiovascular: Rhythm is sinus rhythm. Respiratory: Reports shortness of breath at rest Onset: The symptoms/episode began/occurred at an unknown time. the patient has mild shortness of breath. GI: No signs and/or symptoms were reported involving the gastrointestinal system. : No signs and/or symptoms were reported regarding the genitourinary system. Derm: No deficits noted. Musculoskeletal: No deficits noted. Historical: - Allergies: 07:03 No Known Allergies; bp - PMHx: 07:03 chronic kidney disease (Left upper arm fist); Dialysis; MWF; Hypertensive disorder; bp - PSHx: 07:03 section; Left upper arm fistula; bp - Immunization history:: Adult Immunizations up to date. - Infectious Disease History:: Denies. - Social history:: Smoking status: Patient denies any tobacco usage or history of. Screenin:00 [facility] ED Fall Risk Assessment (Adult) History of falling in the last 3 months, hb including since admission No falls in past 3 months (0 pts) Confusion or Disorientation No (0 pts) Intoxicated or Sedated No (0 pts) Impaired Gait No (0 pts) Mobility Assist Device Used No (0 pt) Altered Elimination No (0 pt) Score/Fall Risk Level 0 - 2 = Low Risk Oriented to surroundings, Maintained a safe environment, Educated pt \T\ family on fall prevention, incl call for assistance when getting out of bed. Abuse screen: Denies threats or abuse. Denies injuries from another. Nutritional screening: No deficits noted. Tuberculosis screening: No symptoms or risk factors identified. Assessment: 07:01 General: Appears distressed, uncomfortable, Behavior is cooperative, appropriate for bp age, anxious. Cardiovascular: Rhythm is sinus rhythm. Respiratory: Airway is patent Respiratory effort is labored, Breath sounds with crackles bilaterally. 09:37 Reassessment: No changes from previously documented assessment. Patient is alert, bp oriented x 3, equal unlabored respirations, skin warm/dry/pink. 10:22 Reassessment: REPORT FAXED FOR 411. bp Vital Signs: 07:01 BP 172 / 124; Pulse 94; Resp 24; Temp 98; Pulse Ox 93% ; bp 09:00 BP 172 / 111; Pulse 96; Resp 20; Pulse Ox 96% ; bp 09:46 BP 149 / 65; Pulse 96; Resp 16; Pulse Ox 97% ; bp 10:48 BP 160 / 118; Pulse 89; Resp 18; Pulse Ox 99% on R/A; bc6 ED Course: 07:01 Patient arrived in ED. [email or web address] 07:01 Michele Yeager, RN is Primary Nurse. bp 07:02 Triage completed. bp 07:03 Arm band placed on. bp 07:05 Jaden Diaz DO is Attending Physician. ms3 07:12 Initial lab(s) drawn, by sc, sent to lab. Inserted saline lock: 22 gauge in right hb wrist, using aseptic technique. Blood collected. Flushed with 10 mL NS. 07:19 Basic Metabolic Panel Sent. hb 07:19 CBC with Diff Sent. hb 07:19 NT PRO-BNP Sent. hb 07:19 PT-INR Sent. hb 07:19 Troponin HS Sent. hb 07:46 XRAY Chest (1 view) In Process Unspecified. EDMS 08:00 Patient has correct armband on for positive identification. Bed in low position. Call hb light in reach. Provided Education on: use of call light . 08:55 Duke Cornejo is Hospitalizing Provider. ms3 Administered Medications: 07:49 Drug: morphine IVP or IV 4 mg IVP once over 4 mins Route: IVP; Infused Over: 4 mins; bp Site: right wrist; 09:38 Follow up: Response: Pain is decreased bp 07:49 Drug: Promethazine IM 12.5 mg IM once Route: IM; Site: affected area; bp 09:37 Follow up: Response: Nausea is decreased bp 07:50 Drug: hydrALAZINE IVP 10 mg IVP once Route: IVP; Site: right wrist; bp 09:37 Follow up: Response: No adverse reaction bp Outcome: 08:57 Decision to Hospitalize by Provider. ms3 11:06 Patient left the ED. hb Signatures: Dispatcher [employer] EDMS Toshia Bryant RN RN hb Michele Yeager RN RN bp Jaden Diaz DO DO ms3 Zahira Masters [email or web address] Jeanna [email or web address] Corrections: (The following items were deleted from the chart) 09:46 09:36 BP 172 / 111; Pulse 96bpm; Resp 20bpm; Pulse Ox 96%; bp bp
--- NOTE | 2024-05-14 09:27 | P.HP ---
Certification for Inpatient Patient admitted to: Observation With expected LOS: <2 Midnights Patient will require the following post-hospital care: None Practitioner: I am a practitioner with admitting privileges, knowledge of patient current condition, hospital course, and medical plan of care. Services: Services provided to patient in accordance with Admission requirements found in Title 42 Section 412.3 of the Code of Federal Regulations Patient History Date of Service: 05/14/24 Reason for admission: Fluid volume overload History of Present Illness: Nely Quinones is a 39-year-old female with past medical history of CKD (left upper arm fistula, MWF dialysis), hypertension, who presents to the ED with chief complaint of shortness of breath and chest pain. She reports last dialysis session was May 06 and missing dialysis d/t to the holidays, onset of symptoms x1 day. Laboratory evaluation significant for BNP 91,873, troponin 102, BUN/creatinine 61/8.94, GFR 5, sodium 135. Initial vitals BP 172 / 124; Pulse 94; Resp 24; Temp 98; Pulse Ox 93% Chest x-ray reports "Mild CHF" Nely will be admitted to hospitalist service for immediate dialysis, Dr. Monge is her human resources supervisor. Allergies No Known Allergies Allergy (Verified 11/19/19 21:40) Home Medications: Sevelamer Carbonate [Renvela*] 800 mg PO TIDWM #90 tab 05/12/22 Furosemide [Lasix] 80 mg PO BID 05/29/23 Hydrocodone 5/APAP 325 [[place] 5/325] 1 tab PO Q6H PRN #10 tab 01/17/24 Pantoprazole Sodium [Protonix] 40 mg PO DAILY #30 tab 01/17/24 calcitrioL [Calcitriol] 0.5 mcg PO DAILY #30 cap 01/17/24 Butalb/Acetaminophen/Caffeine [Fioricet 50-300-40 mg Capsule] 1 cap PO Q6HR PRN 05/14/24 Clonidine Patch [Catapres-Tts 1] 0.1 mg TD DAILY 05/14/24 - Past Medical/Surgical History Diabetic: No -: HTN -: ESRD on HD (Dr. Monge) M/W/F -: Asthma -: Anemia -: C Section -: Tubal Ligation Psychosocial/ Personal History: Patient lives at home with her 4 children. - Family History Father -: Hypertension Mother -: Heart disease - Social History Alcohol use: No CD- Drugs: No Caffeine use: No Review of Systems General: Malaise Gastrointestinal: Abdominal Pain Physical Examination - Physical Exam General: Alert, Oriented x3, Other (uncomfortable) HEENT: Atraumatic, Normocephalic Neck: Supple, 2+ carotid pulse no bruit Respiratory: Clear to auscultation bilaterally, Normal air movement Cardiovascular: Normal pulses, Normal S1 S2, Irregular heart rate/rhythm (mild tachycardia) Capillary refill: <2 Seconds Gastrointestinal: Normal bowel sounds, Soft and benign, Tenderness (epigastric) Musculoskeletal: No clubbing Integumentary: No rashes Neurological: Normal speech, Normal tone - Studies Laboratory Data (last 24 hrs) 05/14/24 05/14/24 05/14/24 07:56 07:12 07:12 WBC 6.90 Hgb 10.1 L Hct 31.8 L Plt Count 301 PT 13.2 H INR 1.18 Sodium 135 L Potassium 4.0 BUN 61 H Creatinine 8.94 H Glucose 110 H Assessment and Plan - Plan Assessment and plan Fluid volume overload secondary to chronic kidney disease with dialysis Elevated troponin likely secondary to CKD Abdominal Pain -Dr. Salazar consulted, normal dialysis MWF, left arm fistula -Reports no dialysis since May 06 -dialysis today -BNP 91,873, BUN/creatinine 61/8.94, GFR 5, sodium 135 -Continue home medication -CT CAP pending Tachycardic Elevated troponin Prolonged QT/QTc Mild CHF -troponin 102, serial pending -Will consider cardiology consult -Chest x-ray reports "Mild CHF" -QT/QTc 436/536, Will hold medications that prolong QT -Continue home medications Hypertension -Continue home medication -Evaluate status post dialysis DVT PPx SCD Full code LOS 24-hour OBS Discharge Plan: Home Plan to discharge in: 24 Hours - Advance Directives Does patient have a Living Will: No Does patient have a Durable POA for Healthcare: No
--- NOTE | 2024-05-14 09:38 | P.CNS ---
Date of Consult: 05/14/24 Reason for Consult: ESRD, hypertensive urgency, dyspnea, missed HD Requesting Physician: Ida Thacker Chief Complaint: Fluid volume overload History of Present Illness: Pt is a 39-year-old AAF with a past medical history malignant HTN, ESRD on iHD at the [facility] with hx of non compliance, missed HD who last dialyzed possibly earlier last week Pt comes in reporting some vague chest and epigastric pain, shortness of breath, malaise. BP is accelerated, she has not taken any meds this AM. Pt denies any active N/V. Allergies No Known Allergies Allergy (Verified 11/19/19 21:40) Home Medications: Sevelamer Carbonate [Renvela*] 800 mg PO TIDWM #90 tab 05/12/22 Furosemide [Lasix] 80 mg PO BID 05/29/23 Lisinopril [Zestril] 40 mg PO DAILY 05/29/23 Doxazosin [Cardura*] 8 mg PO BID 01/16/24 atenoloL [Tenormin] 25 mg PO BEDTIME 01/16/24 Hydrocodone 5/APAP 325 [[place] 5/325] 1 tab PO Q6H PRN #10 tab 01/17/24 Pantoprazole Sodium [Protonix] 40 mg PO DAILY #30 tab 01/17/24 calcitrioL [Calcitriol] 0.5 mcg PO DAILY #30 cap 01/17/24 - Past Medical/Surgical History Diabetic: No -: HTN -: ESRD on HD (Dr. Monge) M/W/F -: Asthma -: Anemia -: C Section -: Tubal Ligation Psychosocial/ Personal History: Patient lives at home with her 4 children. - Family History Father Medical History: Hypertension Mother Medical History: Heart disease - Social History Smoking Status: Unknown if ever smoked Alcohol use: No CD- Drugs: No Caffeine use: No Review of Systems General: Malaise Eyes: Unremarkable ENT: Unremarkable Respiratory: Shortness of Breath Cardiovascular: Chest Pain, As per HPI Gastrointestinal: Abdominal Pain Genitourinary: Unremarkable Musculoskeletal: Back Pain Integumentary: Unremarkable Neurological: Unremarkable Physical Examination General: Cooperative, Mild distress HEENT: Atraumatic, Normocephalic Neck: Supple Respiratory: Other (Mild tachypnec, shallow breaths, no wheezing) Cardiovascular: Other (Tachy, regular, cardiac gallop) Gastrointestinal: Soft and benign, Non-distended, No guarding, Other (Mild epigastric TTP) Musculoskeletal: No swelling, No contractures, Other ( Lt UE AVF with bruit) Neurological: Normal speech, Normal tone, Other (Fatigued but conversant) Laboratory Data (last 24 hrs) 05/14/24 05/14/24 05/14/24 07:56 07:12 07:12 WBC 6.90 Hgb 10.1 L Hct 31.8 L Plt Count 301 PT 13.2 H INR 1.18 Sodium 135 L Potassium 4.0 BUN 61 H Creatinine 8.94 H Glucose 110 H Conclusions/Impression: A?P) ESRD 2nd to hypertensive nephrosclerosis -Freq non compliance with dialysis schedule, will perform emergent HD today for clearance and UF, see orders for details. Chest pain unspecified. NSTEMI. Dyspnea, unspecified. Will order CTA study, dissection protocol. Trend serial CE. Malignant HTN with CKD -Dose labetalol 10 mg x 1 now, will plan for UF on HD for about 3L Anemia 2nd to CKD -Hb within baseline range Faheem Underwood MD, ESTEVAN
[2024-05-14] MEDS ORDERED: ACETAMINOPHEN 325 MG TABLET PO PRN (09:44)
[2024-05-14] MEDS: LABETALOL 20 MG/4ML SYRINGE IV ONE (09:45)
[2024-05-14 10:21] LABS: Magnesium 2.4 mg/dL (1.6-2.4); Phosphorus 5.7 mg/dL (2.5-4.9)
--- NOTE | 2024-05-14 10:22 | RAD REPORT ---
EXAM: CTA of the chest, abdomen and pelvis HISTORY: Chest and abdominal pain COMPARISON: 2020 TECHNIQUE: Multiple contiguous axial images were obtained a CTA of the chest and abdomen with contras t per aortic dissection protocol. Sagittal and coronal 3-D MIP reformats were performed. 100 cc Isovue-370 administered intravenously.Automated exposure control, adjustment of the mA and kV accordi ng to the patient size, and iterative reconstruction. Unless otherwise specified, incidental findings do not require dedicated imaging follow-up. FINDINGS: An aortic dissection not seen. No aortic aneurysm Celiac, SMA and SARITHA do not demonstrate a significant abnormality. Renal arteries do not demonstrate a significant abnormality. Mild bilateral pulmonary opacities. Distention of the IVC and hepatic veins secondary to heart failure.. Marked cardiomegaly Ill-defined fluid is present between the second portion of the duodenum and gallbladder. Small densit y within the gallbladder. Gallbladder mildly distended. Spleen, pancreas, adrenals, kidneys and bladder do not demonstrate a significant abnormality No evidence of diverticulitis. Patient motion artifact limits evaluation of the pelvis. There is small amount of ascites IMPRESSION: No evidence of an aortic dissection Mild bilateral pulmonary opacities probably mild pulmonary edema Ill-defined fluid between the second portion of the duodenum and gallbladder could be secondary to ga llbladder or duodenal inflammation. Mild gallbladder distention with possible gallstone. Gallbladder ultrasound recommended
[2024-05-14 14:49] VITALS: BMI 26.5
[2024-05-14 15:19] LABS: Hepatitis B Surface Ab - Quant 921.39 mIU/mL (<8.0); Hepatitis B surface AG Interp. Nonreactive (Nonreactive)
[2024-05-14 15:20] LABS: HBsAG Nonreactive Report Report
[2024-05-14] MEDS: HEPARIN 5000 UNIT/ML 1 ML VIAL SQ SCH (16:08)
[2024-05-14] MEDS ORDERED: ACETAMINOPHEN PO PRN (16:24)
[2024-05-14] MEDS ORDERED: CAFFEINE PO PRN (16:24)
[2024-05-14] MEDS ORDERED: [UNRECOGNIZED DRUG - OTHER] PO PRN (16:24)
[2024-05-14] MEDS ORDERED: BUTALB PO PRN (16:24)
[2024-05-14] MEDS: CLONIDINE 0.1 MG/PATCH TD SCH ×3 (16:45→18:15)
[2024-05-14] MEDS: SEVELAMER CARBONATE 800 MG TABLET PO SCH (16:51)
[2024-05-14] MEDS: HYDROCODONE/APAP 5/325 MG TAB PO PRN (16:51)
[2024-05-14] MEDS: ACETAMIN/CAFFEINE/BUTALB TAB PO PRN (19:46)
[2024-05-14] MEDS ORDERED: HOME MED 1 EA UNK (Furosemide [Lasix] 80 MG Tablet) PO SCH (21:00)
[2024-05-14] MEDS: FUROSEMIDE 40 MG TABLET PO SCH (22:07)
[2024-05-14] MEDS: HYDRALAZINE HCL 20 MG/ML VIAL IV PRN (22:08)
[2024-05-15] MEDS: MORPHINE 2 MG/ML SYR IV PRN (00:46)
[2024-05-15 06:34] LABS: Absolute Eosinophils 0.2 K/uL (0-0.5); Absolute Lymphocytes (CBC) 1.5 K/uL (0.7-4.9); Absolute Monocytes 0.5 K/uL (0.1-1.3); Absolute Neutrophil 3.4 K/uL (1.8-8.0); Basophils % 0.8 % (0-1.3); Eosinophils % 4.2 % (0-4.4); Hematocrit 29.3 % (36.0-45.0); Hemoglobin 9.7 g/dL (12.0-15.0); Lymphocytes % 26.4 % (15.3-44.8); MCH 31.5 pg (27.0-35.0); MCHC 32.9 g/dL (32.0-36.0); MCV 95.5 fL (80-100); MPV 7.5 fL (7.6-11.3); Monocytes % 8.3 % (3.3-12.3); Neutrophils % 60.3 % (41.7-73.7); Nucleated Red Blood Cells % 0.2 % (0-0); Platelets 343 thou/uL (152-406); RBC Red Blood Cell Count 3.07 M/uL (3.86-4.86)
[2024-05-15 06:54] LABS: Anion Gap 11.8 mEq/L (5.0-15.0); Magnesium 2.4 mg/dL (1.6-2.4); Phosphorus 4.8 mg/dL (2.5-4.9); Potassium 3.8 mEq/L (3.5-5.1)
--- NOTE | 2024-05-15 07:12 | RAD REPORT ---
Abdomen Exam Limited: 05/14/2024 12:03 AM CLINICAL HISTORY: Gallbladder distention STUDY: Limited right upper quadrant ultrasound of abdomen. COMPARISON: 05/14/2024 CT FINDINGS: Bile ducts: The common bile duct measures 3 mm which is within normal limits. Gallbladder: Sludge present within the gallbladder. No pericholecystic fluid or stones identified. Ne gative sonographic Cooper sign. IMPRESSION: Negative for cholelithiasis or acute cholecystitis. No biliary duct dilatation.
[2024-05-15] MEDS: PANTOPRAZOLE 40MG TABLET PO SCH (08:13)
[2024-05-15] MEDS: CALCITROL 0.25 MCG CAP PO SCH (08:13)
[2024-05-15] MEDS: LABETALOL 20 MG/4ML SYRINGE IV ONE (08:43)
[2024-05-15] MEDS ORDERED: CALCITRIOL 0.5 MCG PO SCH (09:00)
[2024-05-15] MEDS: lisinopriL 20 MG TAB PO SCH (10:12)
[2024-05-15] MEDS: NIFEDIPINE XL 90 MG TABLET PO SCH (10:12)
[2024-05-15] MEDS: carvediloL 12.5 MG TAB PO SCH (10:13)
--- NOTE | 2024-05-15 11:47 | P.PN ---
(S) Pt still citing some epigastric pain, mild nausea, low appetite, no CP, dyspnea better, dialyzed yesterday (O) vitals reviewed in the EMR General: Cooperative, no distress HEENT: Atraumatic, Normocephalic, not needing O2 Neck: Supple Respiratory: Other (less tachypnec, improved breaths, no wheezing) Cardiovascular: Other (non tachy, regular, cardiac gallop) Gastrointestinal: Soft and benign, Non-distended, No guarding, Other (Mild epigastric TTP) Musculoskeletal: No swelling, No contractures, Other ( Lt UE AVF with bruit) Neurological: Normal speech, Normal tone, Other Laboratory Data (last 24 hrs) 05/14/24 05/14/24 05/14/24 07:56 07:12 07:12 WBC 6.90 Hgb 10.1 L Hct 31.8 L Plt Count 301 PT 13.2 H INR 1.18 Sodium 135 L Potassium 4.0 BUN 61 H Creatinine 8.94 H Glucose 110 H Conclusions/Impression: A?P) ESRD 2nd to hypertensive nephrosclerosis -Freq non compliance with dialysis schedule, did yesterday perform emergent HD today for clearance and UF, next HD tmrw, see orders for details. Chest pain unspecified. NSTEMI. Dyspnea, unspecified. Did order CTA study, dissection protocol which was neg. Did trend serial CE with repeat troponin flat/non rising. Malignant HTN with CKD -Resumed/added several PO agents, ACEi, CCB, beta xander. F/u closely Epigastric pain -Possible duodenitis, based on CT findings or other, cont symptomatic care per IM Anemia 2nd to CKD -Hb within baseline range Faheem Underwood MD, ESTEVAN
[2024-05-15] MEDS: ONDANSETRON 4 MG (ODT) TAB PO PRN (11:52)
--- NOTE | 2024-05-15 21:00 | P.PN ---
Date of Service: 05/15/24 Subjective Awake, dialysis yesterday, hypertensive, will monitor Blood pressure overnight no new complaints ROS 10 point ROS as noted above, otherwise negative Physical Exam General: Alert, Oriented x3, NAD HEENT: Atraumatic, Normocephalic Neck: Supple, 2+ carotid pulse no bruit Respiratory: Clear to auscultation bilaterally, Normal air movement, on RA Cardiovascular: Normal pulses, Normal S1 S2, RRR Capillary refill: <2 Seconds Gastrointestinal: Normal bowel sounds, Soft on palpation, Tenderness (epigastric) Musculoskeletal: No clubbing Integumentary: No rashes Neurological: Normal speech, Normal tone Vitals reviewed Problem list Fluid volume overload secondary to chronic kidney disease with dialysis Elevated troponin likely secondary to CKD Abdominal Pain Tachycardic Elevated troponin Prolonged QT/QTc Mild CHF Hypertension Assessment and Plan Fluid volume overload secondary to chronic kidney disease with dialysis Elevated troponin likely secondary to CKD Abdominal Pain -Dr. Salazar consulted, normal dialysis MWF, left arm fistula -Reports no dialysis since May 06 -dialysis 3000 ml output -BNP 91,873, BUN/creatinine 33/6.04, GFR 9, sodium 137 -Continue home medication -CT CAP pending Tachycardic Elevated troponin Prolonged QT/QTc Mild CHF -troponin 102, serial pending -Will consider cardiology consult -Chest x-ray reports "Mild CHF" -QT/QTc 436/536, Will hold medications that prolong QT -Continue home medications Hypertension -Continue home medication -Evaluate status post dialysis DVT PPx SCD Full code LOS 24-hour OBS Discharge Plan: Home Plan to discharge in: 24 Hours
--- NOTE | 2024-05-16 11:25 | P.PN ---
(S) Pt does not report any worsening of epigastric pain but reports today some radiation to mid back, no current nausea, no CP, dyspnea better, dialyzed yesterday (O) vitals reviewed in the EMR General: Cooperative, no distress HEENT: Atraumatic, Normocephalic, not needing O2 Neck: Supple Respiratory: Other (less tachypnec, improved breaths, no wheezing) Cardiovascular: Other (non tachy, regular, cardiac gallop) Gastrointestinal: Soft and benign, Non-distended, No guarding, Other (Mild epigastric TTP) Musculoskeletal: No swelling, No contractures, Other ( Lt UE AVF with bruit) Neurological: Normal speech, Normal tone, Other Laboratory Data (last 24 hrs) Reviewed in the EMR Conclusions/Impression: A/P) 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 Pt reports not having transportation for OP HD this afternoon so will have to dialyze her in the hospital to prevent missed treatment Chest pain unspecified. NSTEMI. Dyspnea, unspecified all POA. Did order CTA study, dissection protocol in the ER which was neg. Did trend serial CE with repeat troponin flat/non rising. No current CP reported. Dyspnea improved Malignant HTN with CKD -Resumed/added several PO agents, ACEi, CCB, beta xander with sig improvement in the BP proving that BP can be controlled when she takes her meds Epigastric pain -Possible duodenitis, based on CT findings or other, cont symptomatic care per IM Anemia 2nd to CKD -Hb within baseline range Faheem Underwood MD, ESTEVAN
--- NOTE | 2024-05-16 13:57 | P.DS ---
Admission Date: 05/16/24 Discharge Date: 05/17/24 Disposition: ROUTINE DISCHARGE Discharge Condition: GOOD Reason for Admission: Fluid volume overload Brief History of Present Illness: Nely Quinones is a 39-year-old female with past medical history of CKD (left upper arm fistula, MWF dialysis), hypertension, who presents to the ED with chief complaint of shortness of breath and chest pain. She reports last dialysis session was May 06 and missing dialysis d/t to the holidays, onset of symptoms x1 day. Laboratory evaluation significant for BNP 91,873, troponin 102, BUN/creatinine 61/8.94, GFR 5, sodium 135. Initial vitals BP 172 / 124; Pulse 94; Resp 24; Temp 98; Pulse Ox 93% Chest x-ray reports "Mild CHF" Nely will be admitted to hospitalist service for immediate dialysis, Dr. Monge is her developmental training counselor. Hospital Course: Problem list Fluid volume overload secondary to chronic kidney disease with dialysis Elevated troponin likely secondary to CKD Abdominal Pain Tachycardia Elevated troponin Prolonged QT/QTc Mild CHF Hypertension Patient was admitted to the hospital for ESRD with hypervolemia, elevated troponin. Trended flat, patient underwent HD x 2 has improved significantly. She was experiencing some epigastric discomfort, CT dissection protocol was performed which showed some inflammation around the duodenum/gallbladder. Subsequent abdominal ultrasound was performed which showed a normal gallbladder, abdominal pain likely related to duodenitis. Patient's blood pressure was also markedly elevated, nephrology started her on the following medications and on this regimen her blood pressure has been much better. Carvedilol 12.5 mg twice daily Lisinopril 40 mg daily Nifedipine XL 90 mg daily Patient underwent acute HD today again and is much improved, stable for discharge and outpatient follow-up at this time. Vital Signs/Physical Exam: Temp Pulse Resp BP Pulse Ox 98.4 F 69 18 109/60 96 05/16/24 12:00 05/16/24 12:00 05/16/24 12:47 05/16/24 12:00 05/16/24 12:47 Laboratory Data at Discharge: WBC 5.70 thou/uL (4.3-10.9) 05/15/24 06:12 Hgb 9.7 g/dL (12.0-15.0) L 05/15/24 06:12 Hct 29.3 % (36.0-45.0) L 05/15/24 06:12 Plt Count 343 thou/uL (152-406) 05/15/24 06:12 PT 13.2 SECONDS (9.4-12.5) H 05/14/24 07:12 INR 1.18 05/14/24 07:12 Sodium 137 mEq/L (136-145) 05/15/24 06:12 Potassium 3.8 mEq/L (3.5-5.1) 05/15/24 06:12 BUN 33 mg/dL (7-18) H 05/15/24 06:12 Creatinine 6.04 mg/dL (0.55-1.02) H 05/15/24 06:12 Glucose 117 mg/dL (74-106) H 05/15/24 06:12 Phosphorus 4.8 mg/dL (2.5-4.9) 05/15/24 06:12 Magnesium 2.4 mg/dL (1.6-2.4) 05/15/24 06:12 Home Medications: Sevelamer Carbonate [Renvela*] 800 mg PO TIDWM #90 tab 05/12/22 Furosemide [Lasix] 80 mg PO BID 05/29/23 Hydrocodone 5/APAP 325 [[place] 5/325*] 1 tab PO Q6H PRN #10 tab 01/17/24 calcitrioL [Calcitriol] 0.5 mcg PO DAILY #30 cap 01/17/24 Butalb/Acetaminophen/Caffeine [Fioricet 50-300-40 mg Capsule] 1 cap PO Q6HR PRN 05/14/24 Clonidine Patch [Catapres-Tts 1*] 0.1 mg TD DAILY 05/14/24 NIFEdipine [Nifedipine ER] 90 mg PO DAILY #30 tab 05/16/24 Pantoprazole [Protonix Tab] 40 mg PO BID 14 Days #28 tab 05/16/24 carvediloL [Carvedilol] 12.5 mg PO BID #60 tab 05/16/24 lisinopriL [Lisinopril] 40 mg PO DAILY #30 tab 05/16/24 New Medications: carvediloL [Carvedilol] 12.5 mg PO BID #60 tab lisinopriL [Lisinopril] 40 mg PO DAILY #30 tab NIFEdipine [Nifedipine ER] 90 mg PO DAILY #30 tab Pantoprazole [Protonix Tab] 40 mg PO BID 14 Days #28 tab Physician Discharge Instructions: PROBLEM: fluid volume overload GOAL: Clear understanding of disease process INSTRUCTIONS: Patient was admitted to the hospital for ESRD with hypervolemia, elevated troponin. Trended flat, patient underwent HD x 2 has improved significantly. She was experiencing some epigastric discomfort, CT dissection protocol was performed which showed some inflammation around the duodenum/gallbladder. Subsequent abdominal ultrasound was performed which showed a normal gallbladder, abdominal pain likely related to duodenitis. Patient's blood pressure was also markedly elevated, nephrology started her on the following medications and on this regimen her blood pressure has been much better. Carvedilol 12.5 mg twice daily Lisinopril 40 mg daily Nifedipine XL 90 mg daily Patient underwent acute HD today again and is much improved, stable for discharge and outpatient follow-up at this time. Diet: Renal Activity: Ad corby Patient was admitted to the hospital for ESRD with hypervolemia, elevated troponin. Trended flat, patient underwent HD x 2 has improved significantly. She was experiencing some epigastric discomfort, CT dissection protocol was performed which showed some inflammation around the duodenum/gallbladder. Subsequent abdominal ultrasound was performed which showed a normal gallbladder, abdominal pain likely related to duodenitis. Patient's blood pressure was also markedly elevated, nephrology started her on the following medications and on this regimen her blood pressure has been much better. Carvedilol 12.5 mg twice daily Lisinopril 40 mg daily Nifedipine XL 90 mg daily Patient underwent acute HD today again and is much improved, stable for discharge and outpatient follow-up at this time. Followup: Faheem Underwood [ACTIVE - CAN ADMIT] - 1-2 Weeks NONE,NONE [Primary Care Provider] - Sarwat Greenberg MD [ASSOCIATE-ACTIVE - CAN ADMIT] - 1-2 Weeks Time spent managing pt's care (in minutes): 45
--- NOTE | 2024-05-16 14:57 | P.PN ---
Date of Service: 05/16/24 Subjective No acute events overnight Plan for HD again today ROS 10 point ROS as noted above, otherwise negative Physical Exam General: Alert, Oriented x3, NAD HEENT: Atraumatic, Normocephalic Neck: Supple, 2+ carotid pulse no bruit Respiratory: Clear to auscultation bilaterally, Normal air movement, on RA Cardiovascular: Normal pulses, Normal S1 S2, RRR Capillary refill: <2 Seconds Gastrointestinal: Normal bowel sounds, Soft on palpation, Tenderness (epigastric) Musculoskeletal: No clubbing Integumentary: No rashes Neurological: Normal speech, Normal tone Vitals reviewed Problem list Fluid volume overload secondary to chronic kidney disease with dialysis Elevated troponin likely secondary to CKD Abdominal Pain/duodenitis Tachycardic Elevated troponin Prolonged QT/QTc Mild CHF Hypertension Assessment and Plan Fluid volume overload secondary to chronic kidney disease with dialysis Elevated troponin likely secondary to CKD Abdominal Pain/duodenitis -Dr. Salazar consulted, normal dialysis MWF, left arm fistula -Continue home medication -CT shows findings of duodenitis -Abdominal ultrasound negative for acute findings related to the gallbladder -Continue PPI -Acute HD today Tachycardic Elevated troponin Prolonged QT/QTc Mild CHF -troponin 102, serial pending -Will consider cardiology consult -Chest x-ray reports "Mild CHF" -QT/QTc 436/536, Will hold medications that prolong QT -Continue home medications Hypertension -Continue home medication -Evaluate status post dialysis DVT PPx SCD Full code Inpatient Discharge Plan: Home Plan to discharge in: 24 Hours
[2024-05-16 16:26] LABS: Anion Gap 13.4 mEq/L (5.0-15.0); Magnesium 2.4 mg/dL (1.6-2.4); Phosphorus 5.4 mg/dL (2.5-4.9); Potassium 4.4 mEq/L (3.5-5.1)
[2024-05-16 16:29] LABS: Absolute Basophils 0.1 K/uL (0-0.5); Absolute Eosinophils 0.3 K/uL (0-0.5); Absolute Lymphocytes (CBC) 1.5 K/uL (0.7-4.9); Absolute Monocytes 0.2 K/uL (0.1-1.3); Absolute Neutrophil 1.7 K/uL (1.8-8.0); Basophils % 1.3 % (0-1.3); Eosinophils % 8.9 % (0-4.4); Hematocrit 29.9 % (36.0-45.0); Hemoglobin 9.7 g/dL (12.0-15.0); MCH 31.5 pg (27.0-35.0); MCHC 32.5 g/dL (32.0-36.0); Monocytes % 5.8 % (3.3-12.3); Nucleated Red Blood Cells % 0.2 % (0-0); Platelets 289 thou/uL (152-406); RBC Red Blood Cell Count 3.09 M/uL (3.86-4.86); Red Cell Distribution Width 20.6 % (12.1-15.2)
[2024-05-16 20:39] LABS: Anisocytosis 1+; Blood Morphology Comment NOTED (NOT SEEN); Platelet Estimate ADEQ; White Blood Cell Scan OK (OK)
[2024-05-16] MEDS: DOCUSATE NA 100 MG CAP PO SCH (22:09)
[2024-05-16] MEDS: SIMETHICONE 80 MG CHEWABLE TAB PO SCH (22:09)
[2024-05-17 06:01] LABS: Absolute Eosinophils 0.4 K/uL (0-0.5); Absolute Lymphocytes (CBC) 1.4 K/uL (0.7-4.9); Absolute Monocytes 0.5 K/uL (0.1-1.3); Absolute Neutrophil 3.2 K/uL (1.8-8.0); Basophils % 0.6 % (0-1.3); Eosinophils % 6.7 % (0-4.4); Hematocrit 32.5 % (36.0-45.0); Hemoglobin 10.5 g/dL (12.0-15.0); Lymphocytes % 25.3 % (15.3-44.8); MCH 31.6 pg (27.0-35.0); MCHC 32.5 g/dL (32.0-36.0); MCV 97.4 fL (80-100); MPV 7.6 fL (7.6-11.3); Monocytes % 8.7 % (3.3-12.3); Neutrophils % 58.7 % (41.7-73.7); Nucleated Red Blood Cells % 0.1 % (0-0); Platelets 265 thou/uL (152-406); RBC Red Blood Cell Count 3.33 M/uL (3.86-4.86)
[2024-05-17 06:26] VITALS: TEMP 98
[2024-05-17 06:32] LABS: Anion Gap 10.4 mEq/L (5.0-15.0); Magnesium 2.3 mg/dL (1.6-2.4); Phosphorus 4.9 mg/dL (2.5-4.9); Potassium 4.4 mEq/L (3.5-5.1)
[2024-05-17 06:40] VITALS: BP 120/76
[2024-05-17 10:53] VITALS: O2SAT 98
== END 2024-05-17 08:38 | disposition home or self-care (01) | DRG 291 ==
LOC: ER 07:00 → ERHOLD 09:44 → 4TH 10:39 → OBSVTOIN 05-16 08:49
PROVIDERS: ADMIT Internal Medicine; ATTEND Hospitalist
PROC: 5A1D70Z Performance of Urinary Filtration, Intermittent, Less than 6 Hours Per Day (ICD-10-PCS; principal; 2024-05-16)
DX: I13.2 Hypertensive heart and chronic kidney disease with heart failure and with stage 5 chronic kidney disease, or end stage renal disease (principal); N18.6 End stage renal disease; I50.9 Heart failure, unspecified; D63.1 Anemia in chronic kidney disease; K29.80 Duodenitis without bleeding; R00.0 Tachycardia, unspecified; R94.31 Abnormal electrocardiogram [ECG] [EKG]; R79.89 Other specified abnormal findings of blood chemistry; Z99.2 Dependence on renal dialysis; Z98.51 Tubal ligation status; Z79.899 Other long term (current) drug therapy; Z91.158 Patient's noncompliance with renal dialysis for other reason
CPT/HCPCS: 36415; 71045; 71275; 74175; 76705; 80048; 82947; 83735; 83880; 84100; 84484; 84703; 85025; 85610; 86706; 87340; 90935; 96372; 96374; 96375; 99284; G0378; J0360; J1644; J2270; J2550; Q0162; Q9967

== ENCOUNTER 2024-05-25 07:12 | Emergency (ER) | payer OTHER ==
[2024-05-25 07:56] LABS: Absolute Basophils 0.1 K/uL (0-0.5); Absolute Eosinophils 0.3 K/uL (0-0.5); Absolute Lymphocytes (CBC) 1.3 K/uL (0.7-4.9); Absolute Monocytes 0.6 K/uL (0.1-1.3); Absolute Neutrophil 6.1 K/uL (1.8-8.0); Basophils % 1.2 % (0-1.3); Eosinophils % 3.6 % (0-4.4); Hematocrit 33.3 % (36.0-45.0); Hemoglobin 10.9 g/dL (12.0-15.0); Lymphocytes % 15.1 % (15.3-44.8); MCHC 32.7 g/dL (32.0-36.0); MCV 94.7 fL (80-100); MPV 7.3 fL (7.6-11.3); Monocytes % 6.6 % (3.3-12.3); Neutrophils % 73.5 % (41.7-73.7); Nucleated Red Blood Cells % 0.2 % (0-0); Platelets 473 thou/uL (152-406); RBC Red Blood Cell Count 3.52 M/uL (3.86-4.86); Red Cell Distribution Width 18.5 % (12.1-15.2)
--- NOTE | 2024-05-25 07:57 | RAD REPORT ---
Procedure: Chest Single View HISTORY: Shortness of breath COMPARISON: May 14, 2024 FINDINGS: Mild to moderate bilateral pulmonary opacities bilaterally There may be small bilateral pleural effusions. The heart is moderately to markedly enlarged. IMPRESSION: These findings probably indicate CHF
[2024-05-25 08:14] LABS: Albumin 3.4 g/dL (3.4-5.0); Albumin/Globulin Ratio 0.9 (1.1-1.8); Bilirubin Direct 0.2 mg/dL (0-0.2); Bilirubin Indirect, Calculated 0.2 mg/dL (0.2-0.8); Bilirubin Total 0.4 mg/dL (0.2-1.0); Globulin 3.6 g/dL (2.3-3.5); Magnesium 2.4 mg/dL (1.6-2.4)
[2024-05-25 08:16] LABS: Troponin High Sensitivity 61.1 pg/mL (<58.9)
--- NOTE | 2024-05-25 08:30 | EDPHYS ---
Physician Documentation [facility] Name: Nely Quinones Age: 39 yrs Sex: Female : 1985 Arrival Date: 05/25/2024 Time: 07:12 Bed 7 Private MD: ED Physician Alex Montes HPI: 05/25 07:57 This 39 yrs old Black Female presents to ER via Ambulatory with complaints of Shortness sp3 Of Breath, VOLUME OVERLOAD. 07:57 39-year-old female with history of end-stage renal disease on dialysis Tuesday sp3 Tuesday with no missed dialysis, hypertension presents to the ED with chief complaints of shortness of breath and "I am overloaded". She denies any fever, chest pain, back pain, abdominal pain, vomiting, diarrhea, significant peripheral edema, or any other signs or symptoms on ROS at this time.. Historical: - Allergies: 07:36 No Known Allergies; aa5 - PMHx: 07:33 chronic kidney disease (Left upper arm fist); Dialysis; MWF; Hypertensive disorder; aa5 - PSHx: 07:33 section; Left upper arm fistula; aa5 - Immunization history:: Adult Immunizations unknown. - Infectious Disease History:: Denies. - Social history:: Smoking status: Patient denies any tobacco usage or history of. ROS: 07:58 Constitutional: Negative for fever, chills, and weight loss, Eyes: Negative for injury, sp3 pain, redness, and discharge, Neck: Negative for injury, pain, and swelling, Cardiovascular: Negative for chest pain, palpitations, and edema, Abdomen/GI: Negative for abdominal pain, nausea, vomiting, diarrhea, and constipation, Back: Negative for injury and pain, MS/Extremity: Negative for injury and deformity, Skin: Negative for injury, rash, and discoloration, Neuro: Negative for headache, weakness, numbness, tingling, and seizure, Psych: Negative for depression, anxiety, suicide ideation, homicidal ideation, and hallucinations, Allergy/Immunology: Negative for hives, rash, and allergies, Endocrine: Negative for neck swelling, polydipsia, polyuria, polyphagia, and marked weight changes, 07:58 All other systems are negative, Exam: 07:59 Constitutional: This is a well developed, well nourished patient who is awake, alert, sp3 and in no acute distress. Head/Face: Normocephalic, atraumatic. Eyes: Pupils equal round and reactive to light, extra-ocular motions intact. Lids and lashes normal. Conjunctiva and sclera are non-icteric and not injected. Cornea within normal limits. Periorbital areas with no swelling, redness, or edema. Neck: Trachea midline, no thyromegaly or masses palpated, and no cervical lymphadenopathy. Supple, full range of motion without nuchal rigidity, or vertebral point tenderness. No Meningismus. Chest/axilla: Normal chest wall appearance and motion. Nontender with no deformity. No lesions are appreciated. Cardiovascular: Regular rate and rhythm with a normal S1 and S2. No gallops, murmurs, or rubs. Normal PMI, no JVD. No pulse deficits. Respiratory: Lungs have equal breath sounds bilaterally, clear to auscultation and percussion. No rales, rhonchi or wheezes noted. No increased work of breathing, no retractions or nasal flaring. Abdomen/GI: Soft, non-tender, with normal bowel sounds. No distension or tympany. No guarding or rebound. No evidence of tenderness throughout. Back: No spinal tenderness. No costovertebral tenderness. Full range of motion. Skin: Warm, dry with normal turgor. Normal color with no rashes, no lesions, and no evidence of cellulitis. MS/ Extremity: Pulses equal, no cyanosis. Neurovascular intact. Full, normal range of motion. Neuro: Awake and alert, GCS 15, oriented to person, place, time, and situation. Cranial nerves II-XII grossly intact. Motor strength 5/5 in all extremities. Sensory grossly intact. Cerebellar exam normal. Normal gait. Psych: Awake, alert, with orientation to person, place and time. Behavior, mood, and affect are within normal limits. 08:00 ECG was reviewed by the Attending Physician. EKG demonstrates normal sinus rhythm 81 sp3 bpm with normal intervals except QTc of 511, normal axis, nonspecific diffuse ST's ST changes without evidence of acute ischemia with possible elevated T waves in V5 V6. Vital Signs: 07:25 BP 119 / 87; Pulse 85; Resp 22 S; Temp 98.7(O); Pulse Ox 98% on R/A; Weight 65.77 kg aa5 (R); Height 5 ft. 2 in. (R); 08:36 BP 127 / 90; Pulse 80; Resp 19; Pulse Ox 97% on R/A; ko1 07:25 Body Mass Index 26.52 (65.77 kg, 157.48 cm) aa5 MDM: 07:25 Medical Screening Exam initiated sp3 07:59 Data reviewed: vital signs, nurses notes, old medical records, lab test result(s), EKG, sp3 radiologic studies. ED course: 39-year-old female with PMH above including end-stage renal disease now presents with feelings of volume overload. Differential diagnosis includes volume overload, electrolyte abnormality, viral process, pneumonia, among others. I am not highly suspicious for acute coronary syndrome. QTc is 511 on EKG and we will follow potassium closely.. 08:29 ED course: Patient with volume overload at 32,000 BNP. Troponin mildly bumped as per sp3 her baseline. Patient now wants to leave because she states she has a chair appointment at dialysis that she was able to arrange at 9 AM. I will be the quickest modality to dialysis and she wishes to leave immediately. We will discharge her with instructions to return here if she changes her mind or can get in there for any reason.. 05/25 07:26 Order name: Basic Metabolic Panel; Complete Time: 08:29 sp3 05/25 07:26 Order name: CBC with Diff sp3 05/25 07:26 Order name: LFT's; Complete Time: 08:29 sp3 05/25 07:26 Order name: Magnesium; Complete Time: 08:29 sp3 05/25 07:26 Order name: NT PRO-BNP; Complete Time: 08:29 sp3 05/25 07:26 Order name: Troponin HS; Complete Time: 08:29 sp3 05/25 08:03 Order name: Manual Differential EDMS 05/25 07:26 Order name: XRAY Chest (1 view); Complete Time: 08:02 sp3 05/25 07:26 Order name: Cardiac monitoring; Complete Time: 07:49 sp3 05/25 07:26 Order name: EKG - Nurse/Tech; Complete Time: 07:49 sp3 05/25 07:26 Order name: IV Saline Lock; Complete Time: 07:49 sp3 05/25 07:26 Order name: Labs collected and sent; Complete Time: 07:49 sp3 05/25 07:26 Order name: O2 Per Protocol; Complete Time: 07:49 sp3 05/25 07:26 Order name: O2 Sat Monitoring; Complete Time: 07:49 sp3 Administered Medications: No medications were administered Disposition Summary: 05/25/24 08:30 Discharge Ordered Notes: Location: Home sp3 Condition: Stable sp3 Diagnosis - End-stage renal disease, volume overload sp3 Followup: sp3 - With: Private Physician - When: Upon discharge from the Emergency Department - Reason: Continuance of care Discharge Instructions: - Discharge Summary Sheet sp3 - Dialysis sp3 Forms: - Medication Reconciliation Form sp3 - Antibiotic Education sp3 - Prescription Opioid Use sp3 - Patient Portal Instructions sp3 - Leadership Thank You Letter sp3 Signatures: Dispatcher [employer] Amada Romero, RN RN aa5 Alex Montes MD MD sp3
--- NOTE | 2024-05-25 08:30 | ER ---
Nurse's Notes [facility] Name: Nely Quinones Age: 39 yrs Sex: Female : 1985 Arrival Date: 05/25/2024 Time: 07:12 Bed 7 Private MD: Diagnosis: End-stage renal disease, volume overload Presentation: 05/25 07:25 Chief complaint: Patient states: sore throat, coughing, and headache x 1 week ago, pt aa5 states "my throat has been so dry and so I've been drinking more and I think I am overloaded now". Reports last dialysis was Tuesday. 07:25 Coronavirus screen: cough unrelated to allergies. Ebola Screen: Patient denies travel aa5 to an Ebola-affected area in the 21 days before illness onset. Initial Sepsis Screen: Does the patient meet any 2 criteria? No. Patient's initial sepsis screen is negative. Does the patient have a suspected source of infection? No. Patient's initial sepsis screen is negative. Risk Assessment: Do you want to hurt yourself or someone else? Patient reports no desire to harm self or others. Onset of symptoms was May 2024. 07:25 Acuity: [place] 3 aa5 07:25 Method Of Arrival: Ambulatory aa5 Historical: - Allergies: 07:36 No Known Allergies; aa5 - PMHx: 07:33 chronic kidney disease (Left upper arm fist); Dialysis; MWF; Hypertensive disorder; aa5 - PSHx: 07:33 section; Left upper arm fistula; aa5 - Immunization history:: Adult Immunizations unknown. - Infectious Disease History:: Denies. - Social history:: Smoking status: Patient denies any tobacco usage or history of. Screenin:50 [facility] ED Fall Risk Assessment (Adult) History of falling in the last 3 months, iw including since admission No falls in past 3 months (0 pts) Confusion or Disorientation No (0 pts) Intoxicated or Sedated No (0 pts) Impaired Gait No (0 pts) Mobility Assist Device Used No (0 pt) Altered Elimination No (0 pt) Score/Fall Risk Level 0 - 2 = Low Risk Oriented to surroundings, Maintained a safe environment. Abuse screen: Denies threats or abuse. Nutritional screening: No deficits noted. Tuberculosis screening: No symptoms or risk factors identified. Assessment: 07:49 General: Appears in no apparent distress. Behavior is calm, cooperative. Pain: iw Complains of pain in throat. Neuro: Level of Consciousness is awake, alert, obeys commands, Oriented to person, place, time, situation, Moves all extremities. Full function. Cardiovascular: Rhythm is. Respiratory: Reports shortness of breath on exertion Airway is patent Respiratory effort is even, unlabored, Derm: Skin is intact, is healthy with good turgor. Musculoskeletal: Range of motion: intact in all extremities. Vital Signs: 07:25 BP 119 / 87; Pulse 85; Resp 22 S; Temp 98.7(O); Pulse Ox 98% on R/A; Weight 65.77 kg aa5 (R); Height 5 ft. 2 in. (R); 08:36 BP 127 / 90; Pulse 80; Resp 19; Pulse Ox 97% on R/A; ko1 07:25 Body Mass Index 26.52 (65.77 kg, 157.48 cm) aa5 ED Course: 07:14 Patient arrived in ED. jj6 07:14 Alex Montes MD is Attending Physician. sp3 07:25 Arm band placed on. aa5 07:36 Triage completed. aa5 07:44 XRAY Chest (1 view) In Process Unspecified. EDMS 07:45 Patient has correct armband on for positive identification. Bed in low position. Call ko1 light in reach. Side rails up X 1. Provided Education on: labs. Client placed on continuous cardiac and pulse oximetry monitoring. NIBP monitoring applied. bus monitor on. 07:45 No provider procedures requiring assistance completed. ko1 07:48 Iona Jackson, RN is Primary Nurse. iw 07:49 Initial lab(s) drawn, by me, sent to lab. Inserted saline lock: 22 gauge in right iw antecubital area, using aseptic technique. Blood collected. Flushed with 10 mL NS. 08:36 IV discontinued, intact, bleeding controlled, No redness/swelling at site. Pressure ko1 dressing applied. Administered Medications: No medications were administered Medication: 07:50 VIS not applicable for this client. iw Outcome: 08:30 Discharge ordered by . sp3 08:36 Discharged to home ambulatory, ko1 08:36 Condition: stable 08:36 Discharge instructions given to patient, Instructed on discharge instructions, follow up and referral plans. Demonstrated understanding of instructions, follow-up care, 08:38 Patient left the ED. ko1 Signatures: Dispatcher [employer] EDIona Luis, RN RN Amada Stone RN RN aa5 Alex Montes MD MD sp3 Zahira Masters6 Nena Dunn RN RN ko1
[2024-05-25 08:41] LABS: Band Neutrophils 1 % (0-1); Blood Morphology Comment NOTED (NOT SEEN); Differential Total Cells Count 100; Eosinophils 4 % (0-3); Lymphocytes 22 % (15-42); Monocytes 1 % (0-10); Platelet Estimate ADEQ; Segmented Neutrophils 71 % (40-80); Stomatocytes 1+
[2024-05-25 08:56] VITALS: TEMP 98.7
[2024-05-25 09:01] VITALS: BP 127/90; O2SAT 97
--- NOTE | 2024-05-29 12:11 | EKG ---
Test Date: 2024-05-25 Test Time: 07:47:26 Conference Manager: MATHIEU MEASUREMENT RESULTS: Intervals: Rate: 81 FL: 146 QRSD: 82 QT: 440 QTc: 511 [place]: P: FL: 146 QRS: 109 T: 130 INTERPRETIVE STATEMENTS: Normal sinus rhythm Anterolateral infarct, age undetermined Prolonged QT Abnormal ECG Compared to ECG 05/14/2024 07:18:12 Myocardial infarct finding now present Atrial abnormality no longer present Electronically Signed On 05-29-24 12:06:09 ENVIRONMENTAL MONITORING SPECIALIST by Gregg Lares
== END 2024-05-25 08:38 | disposition home or self-care (01) ==
LOC: ER 07:12
DX: E87.70 Fluid overload, unspecified (principal); I12.0 Hypertensive chronic kidney disease with stage 5 chronic kidney disease or end stage renal disease; N18.6 End stage renal disease; Z99.2 Dependence on renal dialysis
CPT/HCPCS: 36415; 71045; 80048; 80076; 83735; 83880; 84484; 85025; 93005; 99284

== ENCOUNTER 2024-06-15 10:18 | Emergency (ER) | payer OTHER ==
[2024-06-15] MEDS ORDERED: MORPHINE 4 MG/ML SYR ONE ×3 (11:05→18:26)
[2024-06-15] MEDS ORDERED: ONDANSETRON 4 MG/2 ML VIAL ONE ×3 (11:05→18:25)
--- NOTE | 2024-06-15 11:25 | RAD REPORT ---
EXAMINATION: ONE VIEW CHEST XR CLINICAL INDICATION: Female, 39 years old.,DYSPNEA TECHNIQUE: Frontal chest projection is submitted. Examination is limited by patient positioning and t echnique. COMPARISON: 05/25/2024 FINDINGS: Central interstitial prominence and enlargement of the major vascular structures, stable, again sugge sting CHF. No new focal airspace opacities. Underexposure of the left costophrenic angle limits evaluation. No pneumothorax or sizable effusion. Stable cardiomegaly. Mediastinal contours are unchan ged. 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 IMPRESSION: Stable findings as above.
--- NOTE | 2024-06-15 11:49 | RAD REPORT ---
EXAMINATION: CT Abdomen Pelvis Wo Contrast CLINICAL INDICATION: Female, 39 years old. ABD PAIN TECHNIQUE: CT abdomen and pelvis was performed, without IV contrast, as per department protocol. Axia l, sagittal and coronal reconstructions were obtained. One or more of the following dose reduction techniques were used: Automated exposure control, adjustment of the mA and kV according to the patien t size, and iterative reconstruction. Unless otherwise specified, incidental findings do not require dedicated imaging follow-up. COMPARISON: No prior exam. FINDINGS: The lack of intravenous contrast limits the sensitivity of this exam for evaluation of solid visceral organs, vascular structures, and retroperitoneum. LOWER CHEST: Moderate cardiomegaly. Mosaic attenuation at the lung bases, may reflect mild interstiti al edema or atelectasis. LIVER: Normal in size and contour. No focal lesion. BILIARY SYSTEM: Pericholecystic fat stranding along the gallbladder SPLEEN: Normal size. No focal lesion. PANCREAS: No mass, ductal dilation, or dion-pancreatic fluid. ADRENALS: Normal; no mass. KIDNEYS AND URETERS: Mildly atrophic changes of the parenchyma bilaterally, correlate for history of medical renal disease. No hydronephrosis. URINARY BLADDER: Decompressed limiting evaluation. GASTROINTESTINAL TRACT: No evidence of bowel obstruction, free air or abscess. Mild free ascites pre dominantly in the pelvis, with small amounts of fluid layering along the paracolic gutters. APPENDIX: Normal appendix. LYMPH NODES: No lymphadenopathy. MUSCULOSKELETAL: No acute or suspicious osseous abnormality. ADDITIONAL FINDINGS: None. IMPRESSION: Prominent pericholecystic fat stranding along the gallbladder. Please correlate with sonographic find ings of the same day. Mild free ascites, predominantly layering in the pelvis. Moderate cardiomegaly.
--- NOTE | 2024-06-15 11:50 | RAD REPORT ---
EXAMINATION: US Abdomen Exam Limited CLINICAL HISTORY: [facility] MAIN Y ABD PAIN Bed Name: 20 COMPARISON: CT abdomen and pelvis of the same day TECHNIQUE: Limited upper abdominal grayscale and color flow sonographic images. FINDINGS: Gallbladder: Pericholecystic fluid, and wall thickening up to 4 mm, with a fold near the fundus. No e chogenic shadowing stones noted. Positive sonographic Cooper sign is reported. Bile ducts: No intrahepatic or extrahepatic biliary dilatation. Common bile duct measures 0.5 mm. Liver: Visualized portions of the liver demonstrate normal echogenicity with no suspicious findings. Fluid: No ascites. IMPRESSION: Sonographic findings as above suggestive of acute cholecystitis. No abnormalities along the visualized bile ducts.
[2024-06-15 12:52] LABS: Absolute Basophils 0.1 K/uL (0-0.5); Absolute Eosinophils 0.2 K/uL (0-0.5); Absolute Lymphocytes (CBC) 1.3 K/uL (0.7-4.9); Absolute Monocytes 0.5 K/uL (0.1-1.3); Absolute Neutrophil 4.6 K/uL (1.8-8.0); Basophils % 1.3 % (0-1.3); Eosinophils % 3.1 % (0-4.4); Hematocrit 35.8 % (36.0-45.0); Hemoglobin 11.8 g/dL (12.0-15.0); Lymphocytes % 19.6 % (15.3-44.8); MCH 30.4 pg (27.0-35.0); MCV 92.1 fL (80-100); MPV 8.1 fL (7.6-11.3); Monocytes % 6.8 % (3.3-12.3); Neutrophils % 69.2 % (41.7-73.7); Nucleated Red Blood Cells % 0.1 % (0-0); Platelets 252 thou/uL (152-406); RBC Red Blood Cell Count 3.89 M/uL (3.86-4.86); Red Cell Distribution Width 17.4 % (12.1-15.2)
[2024-06-15 12:59] LABS: PT Prothrombin Time 13.6 SECONDS (9.4-12.5); Protime INR 1.22
[2024-06-15 13:30] LABS: Specific Gravity 1.014 (1.005-1.030)
[2024-06-15 13:31] LABS: Albumin 3.7 g/dL (3.4-5.0); Albumin/Globulin Ratio 0.9 (1.1-1.8); Anion Gap 17.5 mEq/L (5.0-15.0); Bilirubin Direct 0.3 mg/dL (0-0.2); Bilirubin Indirect, Calculated 0.4 mg/dL (0.2-0.8); Bilirubin Total 0.7 mg/dL (0.2-1.0); Globulin 3.9 g/dL (2.3-3.5); Magnesium 2.6 mg/dL (1.6-2.4); Potassium 3.5 mEq/L (3.5-5.1); Protein, Total 7.6 g/dL (6.4-8.2)
[2024-06-15 13:34] LABS: Sqamous Epithelial None Seen /HPF (None Seen); Urine Bacteria None Seen /HPF (<20); Urine Culture Reflex Order NOT NEEDED; Urine Micro Reflex YN NO BILL MICROSCOPIC; Urine RBC >50 /HPF (None Seen)
--- NOTE | 2024-06-15 14:13 | EDPHYS ---
Physician Documentation [facility] Name: Nely Quinones Age: 39 yrs Sex: Female : 1985 Arrival Date: 06/15/2024 Time: 10:18 Bed 20 Private MD: ED Physician Oscar Shultz HPI: 06/15 11:05 This 39 yrs old Black Female presents to ER via Wheelchair with complaints of Breathing toño Difficulty, Abdominal Pain. 11:05 The patient has shortness of breath at rest, with light activity. Onset: The toño symptoms/episode began/occurred 1 day(s) ago. Duration: The symptoms are continuous, and are unchanged since they started. The patient's shortness of breath has no apparent modifying factors. Associated signs and symptoms: Pertinent positives: dizziness. Severity of symptoms: At their worst the symptoms were moderate in the emergency department the symptoms are unchanged. The patient has not experienced similar symptoms in the past. SURGICAL ASST: 17:55 LMP 06/13/2024, unknown me1 Historical: - Allergies: 11:03 No Known Allergies; iw - PMHx: 11:03 chronic kidney disease (Left upper arm fist); Dialysis; MWF; Hypertensive disorder; iw - PSHx: 11:03 section; Left upper arm fistula; iw - Immunization history:: Adult Immunizations unknown. - Infectious Disease History:: Denies. - Social history:: Smoking status: Patient denies any tobacco usage or history of. ROS: 11:06 Constitutional: Negative for fever, chills, and weight loss, Eyes: Negative for injury, toño pain, redness, and discharge, ENT: Negative for injury, pain, and discharge, Neck: Negative for injury, pain, and swelling, Cardiovascular: Negative for chest pain, palpitations, and edema, Back: Negative for injury and pain, : Negative for injury, bleeding, discharge, and swelling, MS/Extremity: Negative for injury and deformity, Skin: Negative for injury, rash, and discoloration, Neuro: Negative for headache, weakness, numbness, tingling, and seizure, Psych: Negative for depression, anxiety, suicide ideation, homicidal ideation, and hallucinations, Allergy/Immunology: Negative for hives, rash, and allergies, Endocrine: Negative for neck swelling, polydipsia, polyuria, polyphagia, and marked weight changes, Hematologic/Lymphatic: Negative for swollen nodes, abnormal bleeding, and unusual bruising, 11:06 Respiratory: Positive for cough, "sounds productive", orthopnea, shortness of breath, 11:06 Abdomen/GI: Positive for abdominal pain, nausea, of the posterior aspect of right lateral abdomen, anterior aspect of right lateral abdomen, right upper quadrant and left upper quadrant, Exam: 11:06 Constitutional: This is a well developed, well nourished patient who is awake, alert, toño and in no acute distress. Head/Face: Normocephalic, atraumatic. Eyes: Pupils equal round and reactive to light, extra-ocular motions intact. Lids and lashes normal. Conjunctiva and sclera are non-icteric and not injected. Cornea within normal limits. Periorbital areas with no swelling, redness, or edema. ENT: Nares patent. No nasal discharge, no septal abnormalities noted. Tympanic membranes are normal and external auditory canals are clear. Oropharynx with no redness, swelling, or masses, exudates, or evidence of obstruction, uvula midline. Mucous membranes moist. Neck: Trachea midline, no thyromegaly or masses palpated, and no cervical lymphadenopathy. Supple, full range of motion without nuchal rigidity, or vertebral point tenderness. No Meningismus. Chest/axilla: Normal chest wall appearance and motion. Nontender with no deformity. No lesions are appreciated. Cardiovascular: Regular rate and rhythm with a normal S1 and S2. No gallops, murmurs, or rubs. Normal PMI, no JVD. No pulse deficits. Back: No spinal tenderness. No costovertebral tenderness. Full range of motion. Skin: Warm, dry with normal turgor. Normal color with no rashes, no lesions, and no evidence of cellulitis. MS/ Extremity: Pulses equal, no cyanosis. Neurovascular intact. Full, normal range of motion., bilateral aka Neuro: Awake and alert, GCS 15, oriented to person, place, time, and situation. Cranial nerves II-XII grossly intact. Motor strength 5/5 in all extremities. Sensory grossly intact. Cerebellar exam normal. Normal gait. Psych: Awake, alert, with orientation to person, place and time. Behavior, mood, and affect are within normal limits. 11:06 Respiratory: the patient does not display signs of respiratory distress, Respirations: normal, no acute changes, Breath sounds: bronchial sounds, that are mild, are scattered, decreased breath sounds, that are mild, are scattered, rhonchi, that are mild, are scattered, stridor, is not appreciated, Respiratory rate: 20 14:14 ECG was reviewed by the Attending Physician. [facility] Vital Signs: 11:01 BP 184 / 118; Pulse 85; Resp 20; Temp 97.4; Pulse Ox 100% on R/A; iw 11:15 BP 197 / 146; Pulse 90; Resp 18; Pulse Ox 100% on R/A; me1 12:00 BP 209 / 128; Pulse 83; Resp 19; Pulse Ox 99% on R/A; ri1 13:00 BP 203 / 122; Pulse 82; Resp 19; Pulse Ox 99% on R/A; ri1 14:00 BP 198 / 136; Pulse 80; Resp 19; Pulse Ox 97% ; ri1 14:40 Weight 64.41 kg; Height 5 ft. 2 in. ; ri1 15:00 BP 189 / 111; Pulse 94; Resp 19; Pulse Ox 98% on R/A; ri1 16:00 BP 191 / 128; Pulse 94; Resp 18; Pulse Ox 98% on R/A; me1 17:00 BP 203 / 131; Pulse 88; Resp 19; Pulse Ox 95% on R/A; ri1 17:43 BP 155 / 102; Pulse 73; Resp 19; Pulse Ox 97% ; me1 18:00 BP 151 / 90; Pulse 71; Resp 18; Pulse Ox 98% on R/A; ri1 14:40 Body Mass Index 25.97 (64.41 kg, 157.48 cm) [facility] [place]: 10:24 Medical Screening Exam initiated [facility] 11:08 Differential diagnosis: Anemia Anxiety Reaction asthma, Bronchitis CHF exacerbation, toño pneumonia, Psychogenic pulmonary edema, reactive airway disease, Sepsis Unstable Angina bowel obstruction, cholecystitis, Cholelithiasis, diverticulitis, gastritis, Irritable bowel syndrome, non-specific abd pain, pancreatitis, Peptic Ulcer Disease, Pyelonephritis, Ureterolithiasis, urinary tract infection. Antibiotic administration: Not indicated. Immunization status:. Data reviewed: vital signs, nurses notes, lab test result(s), EKG, radiologic studies, CT scan, plain films. Consideration of Admission/Observation Patient was admitted/placed on observation. Escalation of care including admission/observation considered. I considered the following discharge prescriptions or medication management in the emergency department Medications were administered in the Emergency Department. See MAR. Independent interpretation of the following test(s) in the Emergency Department EKG: See my EKG interpretation above. Test considered but Not performed: MRI: no mrcp. Historians other than the Patient: pt well informed. Care significantly affected by the following chronic conditions: Hypertension, Chronic Kidney Disease, dialysis m,w,f. Counseling: I had a detailed discussion with the patient and/or guardian regarding the historical points, exam findings, and any diagnostic results supporting the discharge/admit diagnosis, the presence of at least one elevated blood pressure reading (>120/80) during this emergency department visit, lab results, radiology results, the need for further work-up and treatment in the hospital. 17:24 ED course: dr hernandez , dw case , transfer. [facility] 06/15 11:00 Order name: Basic Metabolic Panel; Complete Time: 14:[address] [facility] 06/15 11:00 Order name: CBC with Diff; Complete Time: 13:[address] [facility] 06/15 11:00 Order name: LFT's; Complete Time: 14: [facility] 06/15 11:00 Order name: Magnesium; Complete Time: 14: [facility] 06/15 11:00 Order name: NT PRO-BNP; Complete Time: 14:[address] [facility] 06/15 11:00 Order name: PT-INR; Complete Time: 13:[address] [facility] 06/15 11:00 Order name: Troponin HS; Complete Time: 14:[address] [facility] 06/15 11:00 Order name: Lipase; Complete Time: 14:[address] [facility] 06/15 13:13 Order name: Urine Microscopic Only; Complete Time: 14:06 [facility] 06/15 13:23 Order name: Test, Urine; Complete Time: 13:31 [facility] 06/15 15:24 Order name: Ptt, Activated; Complete Time: 17:30 me1 06/15 11:00 Order name: XRAY Chest (1 view); Complete Time: 11:[address] [facility] 06/15 11:00 Order name: CT Abd/Pelvis - Without Contrast; Complete Time: 13:[address] [facility] 06/15 11:00 Order name: US Abdomen Limited; Complete Time: 13:[address] [facility] 06/15 11:00 Order name: EKG; Complete Time: 11: [facility] 06/15 11:00 Order name: Cardiac monitoring; Complete Time: 17:[address] [facility] 06/15 11:00 Order name: EKG - Nurse/Tech; Complete Time: 17:[address] [facility] 06/15 11:00 Order name: IV Saline Lock; Complete Time: 12:[address] [facility] 06/15 11:00 Order name: Labs collected and sent; Complete Time: 12:[address] [facility] 06/15 11:00 Order name: O2 Per Protocol; Complete Time: 11: [facility] 06/15 11:00 Order name: O2 Sat Monitoring; Complete Time: 11: [facility] 06/15 16:07 Order name: Vital Signs; Complete Time: 17:01 iw EC:14 Rate is 80 beats/min. Rhythm is regular. QRS [place] is Normal. MS interval is normal. QRS toño interval is normal at 507 msec. No Q waves. T waves are Normal. No ST changes noted. Clinical impression: Abnormal EKG without significant change and No evidence of ischemia. Interpreted by me. Reviewed by me. Administered Medications: 12:46 Drug: morphine IVP or IV 2 mg IVP once over 4 mins Route: IVP; Infused Over: 4 mins; me1 Site: right antecubital; 14:12 Follow up: Response: No adverse reaction; Pain is decreased me1 12:46 Drug: morphine IVP or IV 2 mg IVP once over 4 mins Route: IVP; Infused Over: 4 mins; me1 Site: right antecubital; 14:12 Follow up: Response: No adverse reaction; Pain is decreased me1 12:46 Drug: Ondansetron IVP 4 mg IVP once; over 2 minutes Route: IVP; Site: right antecubital;me1 14:12 Follow up: Response: No adverse reaction; Nausea is decreased me1 14:22 Drug: Piperacillin-Tazobactam IVPB 3.375 grams IVPB once over 60 mins; (mix in NS 100 me1 mL) Route: IVPB; Infused Over: 60 mins; Site: right antecubital; 15:22 Follow up: Response: No adverse reaction; IV Status: Completed infusion; IV Intake: me1 100ml 14:22 Drug: hydrALAZINE IVP 20 mg IVP once Route: IVP; Site: right antecubital; me1 15:22 Follow up: Response: No adverse reaction me1 14:22 Drug: HydrALAZINE PO 25 mg PO once Route: PO; me1 15:22 Follow up: Response: No adverse reaction me1 15:30 Drug: Heparin (AK-Bolus No thrombolytic) - HEParin IVP 60 units/kg IVP once; Max 5000 me1 units {Co-Signature: kc6 (Lorena Yan RN).} Route: IVP; Site: right antecubital; 17:00 Follow up: Response: No adverse reaction me1 15:33 Drug: Heparin (AK Drip) 12 units/kg/hr - ([place] [address] units, D5W IV 500 ml) IV at me1 calculated rate Per protocol; Max initial rate 1000 units/hr {Co-Signature: kc6 (Lorena Yan RN).} Route: IV; Rate: calculated rate; Site: right antecubital; 17:40 Follow up: IV Status: Infusion continued upon transfer me1 15:40 Drug: Ondansetron IVP 4 mg IVP once; over 2 minutes Route: IVP; Site: right antecubital;me1 17:01 Follow up: Response: No adverse reaction; Nausea is decreased me1 15:40 Drug: morphine IVP or IV 4 mg IVP once over 4 mins Route: IVP; Infused Over: 4 mins; me1 Site: right antecubital; 17:01 Follow up: Response: No adverse reaction; Pain is decreased me1 17:34 Drug: hydrALAZINE IVP 20 mg IVP once Route: IVP; Site: right antecubital; me1 17:45 Follow up: Response: No adverse reaction; Blood pressure is lowered me1 17:35 Drug: HydrALAZINE PO 25 mg PO once Route: PO; me1 17:40 Follow up: Response: No adverse reaction me1 17:40 Drug: Labetalol IV 20 mg IV at per protocol once over 2 mins Route: IV; Rate: per me1 protocol; Infused Over: 2 mins; Site: right antecubital; 17:44 Follow up: Response: Blood pressure is lowered; IV Status: Completed infusion me1 18:29 Drug: Ondansetron IVP 4 mg IVP once; over 2 minutes Route: IVP; Site: right antecubital;me1 18:41 Follow up: Response: No adverse reaction; Nausea is decreased me1 18:29 Drug: morphine IVP or IV 4 mg IVP once over 4 mins Route: IVP; Infused Over: 4 mins; me1 Site: right antecubital; 18:42 Follow up: Response: No adverse reaction; Pain is decreased me1 Disposition Summary: 06/15/24 14:13 Transfer Ordered Notes: Transfer Location: [facility] toño Reason: Higher level of care toño Problem: new toño Symptoms: have improved toño Condition: Fair(06/15/24 14:13) toño Accepting Physician: TO [facility](06/15/24 19:09) me1 Diagnosis - Dependence on renal dialysis toño - Essential (primary) hypertension toño - Epigastric abdominal tenderness toño - Acute cholecystitis toño - Non ST elevation [place] toño Forms: - Medication Reconciliation Form toño - SBAR form toño Signatures: Dispatcher [employer] EDMS Oscar Shultz MD MD cha Williams, Irene, RN RN iw Chrystal Cam RN RN me1 Lorena Yan RN [email or web address] Corrections: (The following items were deleted from the chart) 11:01 11:01 BASIC METABOLIC PANEL+C.LAB.BRZ ordered. EDMS EDMS 11:01 11:01 CBC+H.LAB.BRZ ordered. EDMS EDMS 11:01 11:01 HEPATIC FUNCTION+C.LAB.BRZ ordered. EDMS EDMS 11:01 11:01 MAGNESIUM+C.LAB.BRZ ordered. EDMS EDMS 11:01 11:01 PROBNP+C.LAB.BRZ ordered. EDMS EDMS 11:01 11:01 PROTIME (+INR)+COAG.LAB.BRZ ordered. EDMS EDMS 11:01 11:01 Troponin High Sensitivity+C.LAB.BRZ ordered. EDMS EDMS 11:01 11:01 LIPASE+C.LAB.BRZ ordered. EDMS EDMS 13:13 11:01 Urinalysis+U.LAB.BRZ ordered. EDMS EDMS 13:23 11:01 TEST, SERUM+SC.LAB.BRZ ordered. EDMS EDMS 14:13 14:[address] [facility] toño toño 14:13 14:13 Stable toño toño 15:25 15:25 PTT, ACTIVATED+COAG.LAB.BRZ ordered. EDMS EDMS 19:09 14:13 TO [facility] me1
--- NOTE | 2024-06-15 14:13 | ER ---
Nurse's Notes [facility] Name: Nely Quinones Age: 39 yrs Sex: Female : 1985 Arrival Date: 06/15/2024 Time: 10:18 Bed 20 Private MD: Diagnosis: Dependence on renal dialysis;Essential (primary) hypertension;Epigastric abdominal tenderness;Acute cholecystitis;Non ST elevation OK Presentation: 06/15 11:01 Chief complaint: Patient states: SOB on exertion , she missed her dialysis on Tuesday iw because of her menstrual cycle. Coronavirus screen: At this time, the client does not indicate any symptoms associated with coronavirus-19. Ebola Screen: No symptoms or risks identified at this time. Initial Sepsis Screen: Does the patient meet any 2 criteria? No. Patient's initial sepsis screen is negative. Does the patient have a suspected source of infection? No. Patient's initial sepsis screen is negative. Risk Assessment: Do you want to hurt yourself or someone else? Patient reports no desire to harm self or others. Onset of symptoms was June 15, 2024. 11:01 Method Of Arrival: Wheelchair iw 11:01 Acuity: LORENA 3 iw Triage Assessment: 17:56 General: Appears uncomfortable. Respiratory: the patient has moderate shortness of me1 breath. Respiratory: Respiratory effort is labored. 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 - Infectious Disease History:: Denies. - Social history:: Smoking status: Patient denies any tobacco usage or history of. Screenin:05 [facility] ED Fall Risk Assessment (Adult) History of falling in the last 3 months, me1 including since admission No falls in past 3 months (0 pts) Confusion or Disorientation No (0 pts) Intoxicated or Sedated No (0 pts) Impaired Gait No (0 pts) Mobility Assist Device Used No (0 pt) Altered Elimination No (0 pt) Score/Fall Risk Level 0 - 2 = Low Risk Maintained a safe environment, Provided non-skid footwear, Hourly rounding (assess needs \T\ fall precautionary measures) done. Abuse screen: Denies threats or abuse. Nutritional screening: No deficits noted. Tuberculosis screening: No symptoms or risk factors identified. Assessment: 12:05 General: Appears uncomfortable, ill, well groomed, unkempt, well developed, Behavior is me1 cooperative, appropriate for age, anxious, Reports SOB on exertion , she missed her dialysis on Tuesday because of her menstrual cycle. Reports n/v and epigastric abdominal pain that started this morning. Pain: Complains of pain in left upper quadrant and right upper quadrant and anterior aspect of right lateral abdomen and posterior aspect of right lateral abdomen Pain does not radiate. Pain currently is 10 out of 10 on a pain scale. Quality of pain is described as burning, sharp, Pain began 4 hours ago. Is continuous. Neuro: Level of Consciousness is awake, alert, obeys commands, Oriented to person, place, time, situation, Appropriate for age. Cardiovascular: Patient's skin is warm and dry. Rhythm is regular. Respiratory: Airway is patent Respiratory effort is even, labored, Respiratory pattern is regular, symmetrical, Breath sounds with crackles bilaterally. GI: Reports lower abdominal pain, upper abdominal pain, nausea, vomiting, since this morning. : No signs and/or symptoms were reported regarding the genitourinary system. EENT: No signs and/or symptoms were reported regarding the EENT system. Derm: Skin is intact, is healthy with good turgor, Skin is pink, warm \T\ dry. Musculoskeletal: No signs and/or symptoms reported regarding the musculoskeletal system. Vital Signs: 11:01 BP 184 / 118; Pulse 85; Resp 20; Temp 97.4; Pulse Ox 100% on R/A; iw 11:15 BP 197 / 146; Pulse 90; Resp 18; Pulse Ox 100% on R/A; me1 12:00 BP 209 / 128; Pulse 83; Resp 19; Pulse Ox 99% on R/A; me1 13:00 BP 203 / 122; Pulse 82; Resp 19; Pulse Ox 99% on R/A; me1 14:00 BP 198 / 136; Pulse 80; Resp 19; Pulse Ox 97% ; me1 14:40 Weight 64.41 kg; Height 5 ft. 2 in. ; me1 15:00 BP 189 / 111; Pulse 94; Resp 19; Pulse Ox 98% on R/A; me1 16:00 BP 191 / 128; Pulse 94; Resp 18; Pulse Ox 98% on R/A; me1 17:00 BP 203 / 131; Pulse 88; Resp 19; Pulse Ox 95% on R/A; me1 17:43 BP 155 / 102; Pulse 73; Resp 19; Pulse Ox 97% ; me1 18:00 BP 151 / 90; Pulse 71; Resp 18; Pulse Ox 98% on R/A; me1 14:40 Body Mass Index 25.97 (64.41 kg, 157.48 cm) me1 ED Course: 10:23 Patient arrived in ED. sj2 10:23 Oscar Shultz MD is Attending Physician. toño 11:03 Triage completed. iw 11:08 XRAY Chest (1 view) In Process Unspecified. EDMS 11:27 CT Abd/Pelvis - Without Contrast In Process Unspecified. EDMS 11:27 Iona Jackson, RN is Primary Nurse. iw 11:47 US Abdomen Limited In Process Unspecified. EDMS 12:05 No provider procedures requiring assistance completed. Inserted saline lock: 22 gauge me1 in right antecubital area, using aseptic technique. Blood collected. Flushed with 10 mL NS. 12:05 Patient has correct armband on for positive identification. Bed in low position. Call me1 light in reach. Side rails up X2. Provided Education on: POC. Verbalized understanding.. Client placed on continuous cardiac and pulse oximetry monitoring. NIBP monitoring applied. trailer mechanic on. Pulse ox on. NIBP on. 12:05 Arm band placed on Patient placed in an exam room. me1 12:46 Basic Metabolic Panel Sent. me1 12:46 CBC with Diff Sent. me1 12:46 LFT's Sent. me1 12:46 Magnesium Sent. me1 12:46 NT PRO-BNP Sent. me1 12:46 PT-INR Sent. me1 12:46 Troponin HS Sent. me1 12:46 Lipase Sent. me1 15:[address] Shultz with [facility] from the [facility]. eb 15:36 Ptt, Activated Sent. me1 16:[address] Marie the comic book writer manager document control for [facility] with Dr. Shultz for eb patient transfer consultation. 16:08 administrative approval given by Chacho Abernathy/ patient has been accepted to [place] [id number] room 1/ Dr. Murray Marie has accepted the patient in transfer/ report to be called to [phone]. 17:56 Patient transferred, IV remains in place. me1 Administered Medications: 12:46 Drug: morphine IVP or IV 2 mg IVP once over 4 mins Route: IVP; Infused Over: 4 mins; me1 Site: right antecubital; 14:12 Follow up: Response: No adverse reaction; Pain is decreased me1 12:46 Drug: morphine IVP or IV 2 mg IVP once over 4 mins Route: IVP; Infused Over: 4 mins; me1 Site: right antecubital; 14:12 Follow up: Response: No adverse reaction; Pain is decreased me1 12:46 Drug: Ondansetron IVP 4 mg IVP once; over 2 minutes Route: IVP; Site: right antecubital;me1 14:12 Follow up: Response: No adverse reaction; Nausea is decreased me1 14:22 Drug: Piperacillin-Tazobactam IVPB 3.375 grams IVPB once over 60 mins; (mix in NS 100 me1 mL) Route: IVPB; Infused Over: 60 mins; Site: right antecubital; 15:22 Follow up: Response: No adverse reaction; IV Status: Completed infusion; IV Intake: me1 100ml 14:22 Drug: hydrALAZINE IVP 20 mg IVP once Route: IVP; Site: right antecubital; me1 15:22 Follow up: Response: No adverse reaction me1 14:22 Drug: HydrALAZINE PO 25 mg PO once Route: PO; me1 15:22 Follow up: Response: No adverse reaction me1 15:30 Drug: Heparin (OK-Bolus No thrombolytic) - HEParin IVP 60 units/kg IVP once; Max 5000 me1 units {Co-Signature: kc6 (Lorena Yan RN).} Route: IVP; Site: right antecubital; 17:00 Follow up: Response: No adverse reaction me1 15:33 Drug: Heparin (OK Drip) 12 units/kg/hr - ([place] [address] units, D5W IV 500 ml) IV at me1 calculated rate Per protocol; Max initial rate 1000 units/hr {Co-Signature: kc6 (Lorena Yan RN).} Route: IV; Rate: calculated rate; Site: right antecubital; 17:40 Follow up: IV Status: Infusion continued upon transfer me1 15:40 Drug: Ondansetron IVP 4 mg IVP once; over 2 minutes Route: IVP; Site: right antecubital;me1 17:01 Follow up: Response: No adverse reaction; Nausea is decreased me1 15:40 Drug: morphine IVP or IV 4 mg IVP once over 4 mins Route: IVP; Infused Over: 4 mins; me1 Site: right antecubital; 17:01 Follow up: Response: No adverse reaction; Pain is decreased me1 17:34 Drug: hydrALAZINE IVP 20 mg IVP once Route: IVP; Site: right antecubital; me1 17:45 Follow up: Response: No adverse reaction; Blood pressure is lowered me1 17:35 Drug: HydrALAZINE PO 25 mg PO once Route: PO; me1 17:40 Follow up: Response: No adverse reaction me1 17:40 Drug: Labetalol IV 20 mg IV at per protocol once over 2 mins Route: IV; Rate: per me1 protocol; Infused Over: 2 mins; Site: right antecubital; 17:44 Follow up: Response: Blood pressure is lowered; IV Status: Completed infusion me1 18:29 Drug: Ondansetron IVP 4 mg IVP once; over 2 minutes Route: IVP; Site: right antecubital;me1 18:41 Follow up: Response: No adverse reaction; Nausea is decreased me1 18:29 Drug: morphine IVP or IV 4 mg IVP once over 4 mins Route: IVP; Infused Over: 4 mins; me1 Site: right antecubital; 18:42 Follow up: Response: No adverse reaction; Pain is decreased me1 Medication: 12:05 VIS not applicable for this client. me1 Intake: 15:22 IV: 100ml; Total: 100ml. me1 Outcome: 14:13 ER care complete, transfer ordered by MD. lundberg 17:56 Transferred by [facility] to [facility], Note: [address] me1 4 Room 1, Report called to CHELA Guadalupe 17:56 Condition: stable 17:56 Instructed on the need for transfer, 19:09 Patient left the ED. me1 Signatures: Dispatcher [employer] Oscar Spraks MD MD cha Williams, Irene, RN CHELA iw Jaelyn Renae Michelle, RN RN me1 Lucian Alexandra 2 Lorena Yan RN kc6 Corrections: (The following items were deleted from the chart) 16:54 11:01 Chief complaint: Patient states: SOB on exertion , she missed her dialysis on me1 Tuesday because of her menstrual cycle iw
[2024-06-15] MEDS ORDERED: HYDRALAZINE HCL 20 MG/ML VIAL ONE ×2 (14:17→17:31)
[2024-06-15] MEDS ORDERED: HYDRALAZINE HCL 25 MG TABLET ONE ×2 (14:17→17:31)
[2024-06-15] MEDS ORDERED: NA CHLORIDE 0.9% 100 ML ONE (14:18)
[2024-06-15] MEDS ORDERED: PIPERACIL/TAZO 3.375 GM VIAL IV ONE (14:18)
[2024-06-15] MEDS ORDERED: HEPARIN 5000 UNIT/ML 1 ML VIAL ONE (15:20)
[2024-06-15] MEDS ORDERED: HEPARIN/D5W 25,000 UNIT/500 ML BAG IV ONE (15:21)
[2024-06-15] MEDS ORDERED: METOPROLOL TARTRATE 5 MG/5 ML INJ IV ONE (17:31)
[2024-06-15] MEDS ORDERED: LABETALOL 20 MG/4ML SYRINGE IV ONE (17:37)
[2024-06-15 20:04] VITALS: TEMP 97.4
[2024-06-15 20:15] VITALS: BP 151/90; O2SAT 98
--- NOTE | 2024-06-25 11:22 | EKG ---
Test Date: 2024-06-15 Test Time: 13:19:52 Chief Knowledge Officer: MEASUREMENT RESULTS: Intervals: Rate: 80 NJ: 154 QRSD: 76 QT: 440 QTc: 507 [place]: P: 61 NJ: 154 QRS: 54 T: 57 INTERPRETIVE STATEMENTS: Normal sinus rhythm Biatrial enlargement ST abnormality, possible digitalis effect Prolonged QT Abnormal ECG Compared to ECG 05/25/2024 07:47:26 Atrial abnormality now present ST (T wave) deviation now present Myocardial infarct finding no longer present Electronically Signed On 06-25-24 11:06:41 PICKING TECH by Gregg Lares
== END 2024-06-15 19:09 | disposition short-term general hospital (02) ==
LOC: ER 10:18
DX: I21.4 Non-ST elevation (NSTEMI) myocardial infarction (principal); K81.0 Acute cholecystitis; I10 Essential (primary) hypertension; I12.0 Hypertensive chronic kidney disease with stage 5 chronic kidney disease or end stage renal disease; N18.6 End stage renal disease; Z99.2 Dependence on renal dialysis
CPT/HCPCS: 96365; 96367; 93005; 85025; 80048; 36415; 83735; 81025; 85610; 80076; 85730; 81015; 84484; 83690; 83880; 74176; 71045; 76705; 96375; 99285; 96366; J1644; J0360 ×2; J2543; J2405 ×3

== ENCOUNTER 2024-09-30 14:57 | Inpatient (IN) | payer OTHER ==
[2024-09-30 15:56] LABS: Absolute Basophils 0.1 K/uL (0-0.5); Absolute Eosinophils 0.3 K/uL (0-0.5); Absolute Lymphocytes (CBC) 1.7 K/uL (0.7-4.9); Absolute Monocytes 0.6 K/uL (0.1-1.3); Absolute Neutrophil 6.7 K/uL (1.8-8.0); Basophils % 1.2 % (0-1.3); Eosinophils % 2.8 % (0-4.4); Hematocrit 20.4 % (36.0-45.0); Hemoglobin 6.9 g/dL (12.0-15.0); Lymphocytes % 18.5 % (15.3-44.8); MCH 30.9 pg (27.0-35.0); MCV 91.1 fL (80-100); MPV 6.8 fL (7.6-11.3); Monocytes % 6.8 % (3.3-12.3); Neutrophils % 70.7 % (41.7-73.7); Nucleated Red Blood Cells % 0.4 % (0-0); Platelets 404 thou/uL (152-406); RBC Red Blood Cell Count 2.24 M/uL (3.86-4.86); Red Cell Distribution Width 17.8 % (12.1-15.2)
[2024-09-30] MEDS ORDERED: ALBUTEROL 2.5 MG/3 ML NEB SOL ONE (15:58)
[2024-09-30] MEDS ORDERED: IPRATROPIUM BROM 0.5MG/2.5ML ONE (15:59)
[2024-09-30 16:15] LABS: Albumin 3.4 g/dL (3.4-5.0); Albumin/Globulin Ratio 0.9 (1.1-1.8); Anion Gap 13.9 mEq/L (5.0-15.0); Bilirubin Direct 0.2 mg/dL (0-0.2); Bilirubin Indirect, Calculated 0.3 mg/dL (0.2-0.8); Bilirubin Total 0.5 mg/dL (0.2-1.0); Globulin 3.8 g/dL (2.3-3.5); Influenza A Ag Negative; Influenza B Ag Negative; Magnesium 2.4 mg/dL (1.6-2.4); Potassium 3.9 mEq/L (3.5-5.1); Protein, Total 7.2 g/dL (6.4-8.2); SARS-CoV-2 Antigen Rapid Res Negative (Negative); Troponin High Sensitivity 45.9 pg/mL (<58.9)
--- NOTE | 2024-09-30 16:15 | RAD REPORT ---
Procedure: Chest Single View HISTORY: Shortness of breath COMPARISON: June 2024 FINDINGS: Upper lobe vessels are prominent indicative of pulmonary venous hypertension. The lungs appear clear of acute infiltrate. No significant pleural effusion noted. The heart is moderately enlarged.
[2024-09-30 16:52] LABS: PT Prothrombin Time 11.8 SECONDS (10-13.0); Protime INR 1.04
[2024-09-30] MEDS ORDERED: PROMETHAZINE INJ 25 MG/ML AMP ONE (17:34)
[2024-09-30] MEDS ORDERED: MORPHINE 4 MG/ML SYR ONE (17:35)
--- NOTE | 2024-09-30 17:55 | ER ---
Nurse's Notes [facility] Name: Nely Quinones Age: 39 yrs Sex: Female : 1985 Arrival Date: 09/30/2024 Time: 14:57 Bed 26 Private MD: Diagnosis: Dyspnea, unspecified;End stage renal disease;Anemia in chronic kidney disease Presentation: 09/30 15:10 Chief complaint: Patient states: Breathing difficulty for 2 days. No fever. Last ll1 dialysis Tuesday. Coronavirus screen: Client denies travel out of the [place] in the last 14 days. difficulty breathing, shortness of breath, Client presents with at least one sign or symptom that may indicate coronavirus-19. Standard/surgical mask placed on the client. Ebola Screen: Patient denies travel to an Ebola-affected area in the 21 days before illness onset. Initial Sepsis Screen: Does the patient meet any 2 criteria? No. Patient's initial sepsis screen is negative. Does the patient have a suspected source of infection? No. Patient's initial sepsis screen is negative. Risk Assessment: Do you want to hurt yourself or someone else? Patient reports no desire to harm self or others. Onset of symptoms was September 29, 2024. 15:10 Method Of Arrival: Wheelchair ll1 15:10 Acuity: LORENA 3 ll1 Triage Assessment: 15:10 General: Appears distressed, uncomfortable, Behavior is calm, cooperative, appropriate ll1 for age. Pain: Complains of pain in back and chest Pain currently is 10 out of 10 on a pain scale. Quality of pain is described as aching. Respiratory: Reports shortness of breath pain with respiration Onset: The symptoms/episode began/occurred yesterday, the patient has moderate shortness of breath. Historical: - Allergies: 15:10 No Known Allergies; ll1 - PMHx: 15:10 chronic kidney disease (Left upper arm fist); Dialysis; MWF; Hypertensive disorder; ll1 - PSHx: 15:10 section; Left upper arm fistula; ll1 - Immunization history:: Adult Immunizations. - Infectious Disease History:: Denies. - Social history:: Smoking status: Patient reports the use of cigarette tobacco products, denies chronic smoking, but will smoke occasionally. Screenin:[address] [facility] ED Fall Risk Assessment (Adult) History of falling in the last 3 months, jl7 including since admission No falls in past 3 months (0 pts) Confusion or Disorientation No (0 pts) Intoxicated or Sedated No (0 pts) Impaired Gait No (0 pts) Mobility Assist Device Used No (0 pt) Altered Elimination No (0 pt) Score/Fall Risk Level 0 - 2 = Low Risk Oriented to surroundings, Maintained a safe environment. Abuse screen: Denies threats or abuse. Denies injuries from another. Nutritional screening: No deficits noted. Tuberculosis screening: No symptoms or risk factors identified. Assessment: 17:00 General: Appears in no apparent distress. uncomfortable, Behavior is cooperative. Pain: jl7 Complains of pain in back and chest Pain currently is 10 out of 10 on a pain scale. Neuro: Carter Agitation-Sedation Scale (RASS): 0 - Alert and Calm Level of Consciousness is awake, alert, obeys commands, Oriented to person, place, time, situation. Cardiovascular: Patient's skin is warm and dry. Rhythm is regular. Respiratory: Airway is patent Respiratory effort is even, labored, Respiratory pattern is symmetrical, tachypnea Breath sounds are diminished. GI: Abdomen is round distended. Derm: Skin is dry, Skin is pale, Skin temperature is cool. 18:30 Reassessment: Patient appears in no apparent distress at this time. Patient and/or jl7 family updated on plan of care and expected duration. Pain level reassessed. Patient is alert, oriented x 3, equal unlabored respirations, skin warm/dry/pink. pain decreased rated 6/10 at this time. 19:41 General: Appears in no apparent distress. uncomfortable, Behavior is calm, cooperative. al5 Pain: Complains of pain in abdomen. Neuro: Level of Consciousness is awake, alert, obeys commands, Oriented to person, place, time, situation. Cardiovascular: Capillary refill < 3 seconds Patient's skin is warm and dry. Rhythm is regular. Respiratory: Airway is patent Respiratory effort is even, unlabored, Respiratory pattern is regular, symmetrical. GI: Abdomen is round distended. Derm: Skin is intact, is healthy with good turgor, Skin is pink, warm \T\ dry. normal. Musculoskeletal: No signs and/or symptoms reported regarding the musculoskeletal system. 22:00 Reassessment: Patient appears in no apparent distress at this time. No changes from al5 previously documented assessment. Patient and/or family updated on plan of care and expected duration. Pain level reassessed. Patient is alert, oriented x 3, equal unlabored respirations, skin warm/dry/pink. Vital Signs: 15:10 BP 178 / 107; Pulse 82; Resp 22; Temp 97.8; Pulse Ox 100% ; Weight 63.5 kg; Height 5 ll1 ft. 2 in. ; Pain 10/10; 17:15 BP 170 / 106; Pulse 90; Resp 22; Pulse Ox 99% ; jl7 18:25 Pain 6/10; jl7 18:45 BP 183 / 119; Pulse 89; Resp 21; Pulse Ox 99% ; Pain 6/10; jl7 19:00 BP 175 / 108; Pulse 84; Resp 18; Pulse Ox 99% on R/A; al5 20:00 BP 169 / 107; Pulse 88; Resp 18; Pulse Ox 99% ; al5 22:00 BP 162 / 95; Pulse 84; Resp 19; Pulse Ox 96% ; al5 15:10 Body Mass Index 25.61 (63.50 kg, 157.48 cm) ll1 15:10 Pain Scale: Adult ll1 18:25 Pain Scale: Adult jl7 18:45 Pain Scale: Adult jl7 ED Course: 15:00 Patient arrived in ED. sj2 15:02 Shira Wasserman PA-C is PHCP. sb4 15:02 Oscar Shultz MD is Attending Physician. sb4 15:10 Arm band placed on Patient placed in an exam room, on a stretcher. ll1 15:23 Triage completed. ll1 15:31 EKG done, by ED staff, reviewed by Shira Wasserman PA-C. em1 15:39 COVID-19 Ag + Flu A+B Ag Sent. jb4 15:39 BMP Sent. jb4 15:40 CBC with Diff Sent. jb4 15:40 Hepatic Function Sent. jb4 15:40 Magnesium Sent. jb4 15:40 NT PRO-BNP Sent. jb4 15:40 PT-INR Sent. jb4 15:40 Ptt, Activated Sent. jb4 15:40 Troponin HS Sent. jb4 15:52 Chest Single View XRAY In Process Unspecified. EDMS 17:03 Tarik Shepherd, RN is Primary Nurse. jl7 17:15 Patient has correct armband on for positive identification. Placed in gown. Bed in low jl7 position. Call light in reach. Side rails up X2. Provided Education on: use of call zaragoza. Client placed on continuous cardiac and pulse oximetry monitoring. NIBP monitoring applied. equipment monitor phototypesetting on. Pulse ox on. Warm blanket given. 17:15 No provider procedures requiring assistance completed. jl7 17:[address] In Process Unspecified. EDMS 17:54 Ab Ceja MD is Hospitalizing Provider. sb4 21:10 Diet: Patient given juice. oe 23:07 Patient admitted, IV remains in place. al5 10/01 07:08 Primary Nurse role handed off by Tarik Shepherd, CHELA bp 07:08 Michele Yeager, RN is Primary Nurse. bp Administered Medications: 09/30 16:04 Drug: DuoNeb Nebulize (3:1) (2.5 mg - 0.5 mg) 3 ml Nebulizer once Route: Nebulizer; jb4 18:58 Follow up: Response: No adverse reaction jl7 17:59 Drug: morphine IVP or IV 4 mg IVP once over 4 mins Route: IVP; Infused Over: 4 mins; kc6 Site: right hand; 18:25 Follow up: Pain 6/10 Adult; Response: No adverse reaction; Pain is decreased; RASS: jl7 Drowsy (-1) 18:00 Drug: Promethazine IVP 12.5 mg IVP once Route: IVP; Site: right hand; kc6 18:58 Follow up: Response: No adverse reaction jl7 Medication: 17:15 VIS not applicable for this client. jl7 Outcome: 17:55 Decision to Hospitalize by Provider. sb4 23:07 Admitted to ER Hold. Please see [facility] for further documentation. al5 23:07 Condition: stable 23:07 Instructed on the need for admit, 10/01 12:25 Patient left the ED. ap3 Signatures: Dispatcher [employer] Jeremy Ta em1 Manolo Juarez, RN RN jb4 Allen Tejada oe Tarik Shepherd, RN RN jl7 Michele Yeager, RN RN bp Emily Ingram RN RN ap3 Neal Hernández RN RN ll1 Lorena Yan RN RN kc6 Shira Wasserman PA-C PALino sb4 Emily Noyola, RN RN al5 Lucian Alexandra sj2 Corrections: (The following items were deleted from the chart) 09/30 15:20 15:19 Arm band placed on ll1 ll1 23:08 22:00 BP 162 / 95; Pulse 84bpm; Resp 29bpm; Pulse Ox 96%; al5 al5
--- NOTE | 2024-09-30 17:55 | EDPHYS ---
Physician Documentation [facility] Name: Nely Quionnes Age: 39 yrs Sex: Female : 1985 Arrival Date: 09/30/2024 Time: 14:57 Bed 26 Private MD: AVERY Physician Oscar Shultz HPI: 09/30 17:29 This 39 yrs old Black Female presents to ER via Wheelchair with complaints of Shortness sb4 Of Breath, Painful Cough. 17:29 Patient reports shortness of breath, productive cough, and chest pain for 2 to 3 days. sb4 Is on dialysis Tuesday, has not been dialyzed in 4 days now. States that she makes minimal urine. Reports increased swelling in her abdomen. Denies any fever or chills. Denies any sick contacts. Denies any nausea, vomiting, diarrhea. Historical: - Allergies: 15:10 No Known Allergies; ll1 - PMHx: 15:10 chronic kidney disease (Left upper arm fist); Dialysis; MWF; Hypertensive disorder; ll1 - PSHx: 15:10 section; Left upper arm fistula; ll1 - Immunization history:: Adult Immunizations. - Infectious Disease History:: Denies. - Social history:: Smoking status: Patient reports the use of cigarette tobacco products, denies chronic smoking, but will smoke occasionally. ROS: 17:29 Constitutional: Negative for fever, chills, and weight loss, sb4 17:29 Cardiovascular: Positive for chest pain, 17:29 Respiratory: Positive for cough, hemoptysis, shortness of breath, at rest. 17:29 All other systems are negative, Exam: 17:29 Head/Face: Normocephalic, atraumatic. Eyes: Extra-ocular motions intact. Periorbital sb4 areas with no swelling, redness, or edema. ENT: Mucous membranes moist. Cardiovascular: Regular rate and rhythm with a normal S1 and S2. Respiratory: No increased work of breathing, no retractions or nasal flaring. Abdomen/GI: Soft, non-tender, no distension. Skin: Warm, dry with normal turgor. Normal color with no rashes, no lesions, and no evidence of cellulitis. 17:29 Constitutional: The patient appears alert, awake, anxious, uncomfortable, Vital Signs: 15:10 BP 178 / 107; Pulse 82; Resp 22; Temp 97.8; Pulse Ox 100% ; Weight 63.5 kg; Height 5 ll1 ft. 2 in. ; Pain 10/10; 17:15 BP 170 / 106; Pulse 90; Resp 22; Pulse Ox 99% ; jl7 18:25 Pain 6/10; jl7 18:45 BP 183 / 119; Pulse 89; Resp 21; Pulse Ox 99% ; Pain 6/10; jl7 19:00 BP 175 / 108; Pulse 84; Resp 18; Pulse Ox 99% on R/A; al5 20:00 BP 169 / 107; Pulse 88; Resp 18; Pulse Ox 99% ; al5 22:00 BP 162 / 95; Pulse 84; Resp 19; Pulse Ox 96% ; al5 15:10 Body Mass Index 25.61 (63.50 kg, 157.48 cm) ll1 15:10 Pain Scale: Adult ll1 18:25 Pain Scale: Adult jl7 18:45 Pain Scale: Adult jl7 MDM: 15:04 Medical Screening Exam initiated sb4 17:31 Data reviewed: vital signs, nurses notes, lab test result(s), EKG, radiologic studies, sb4 and as a result, I will admit patient. Care significantly affected by the following chronic conditions: Hypertension, Chronic Kidney Disease. 17:54 Counseling: I had a detailed discussion with the patient and/or guardian regarding the sb4 historical points, exam findings, and any diagnostic results supporting the discharge/admit diagnosis, the presence of at least one elevated blood pressure reading (>120/80) during this emergency department visit, lab results, radiology results, the need for further work-up and treatment in the hospital. 09/30 15:16 Order name: BMP; Complete Time: 16:16 sb4 09/30 15:16 Order name: CBC with Diff; Complete Time: 15:59 sb4 09/30 15:16 Order name: Hepatic Function; Complete Time: 16:16 sb4 09/30 15:16 Order name: Magnesium; Complete Time: 16:16 sb4 09/30 15:16 Order name: NT PRO-BNP; Complete Time: 16:16 sb4 09/30 15:16 Order name: PT-INR; Complete Time: 16:53 sb4 09/30 15:16 Order name: Ptt, Activated; Complete Time: 16:53 sb4 09/30 15:16 Order name: Troponin HS; Complete Time: 16:16 sb4 09/30 15:17 Order name: COVID-19 Ag + Flu A+B Ag; Complete Time: 16:15 sb4 09/30 16:21 Order name: Type And Screen; Complete Time: 09:27 sb4 09/30 19:56 Order name: CBC with Automated Diff EDMS 09/30 19:56 Order name: CBC with Automated Diff; Complete Time: 09:27 EDMS 09/30 19:56 Order name: Comprehensive Metabolic Panel EDMS 09/30 19:56 Order name: Comprehensive Metabolic Panel; Complete Time: 09:27 EDMS 09/30 19:57 Order name: Packed RBC Leukored EDMS 09/30 19:57 Order name: Hematocrit; Complete Time: 09:27 EDMS 09/30 19:57 Order name: Hemoglobin; Complete Time: 09:27 EDMS 09/30 19:58 Order name: ABO/RH typing EDIN 09/30 19:58 Order name: Antibody Screen EDIN 09/30 20:08 Order name: UAM vc1 09/30 20:08 Order name: Urinalysis w/ reflexes al5 09/30 20:43 Order name: Urinalysis W/Microscopic; Complete Time: 09:27 EDMS 09/30 20:43 Order name: Urinalysis w/ reflexes; Complete Time: 09:27 EDMS 09/30 15:16 Order name: Chest Single View XRAY; Complete Time: 16:16 sb4 09/30 16:42 Order name: Chest Wo Con CT; Complete Time: 18:26 sb4 10/01 10:58 Order name: CT; Complete Time: 11:00 EDIN 09/30 15:16 Order name: EKG; Complete Time: 15:17 sb4 09/30 19:56 Order name: CONS Physician Consult EDIN 09/30 15:16 Order name: Cardiac monitoring; Complete Time: 17:03 sb4 09/30 15:16 Order name: EKG - Nurse/Tech; Complete Time: 15:31 sb4 09/30 15:16 Order name: IV Saline Lock; Complete Time: 17:03 sb4 09/30 15:16 Order name: Labs collected and sent; Complete Time: 15:39 sb4 09/30 15:16 Order name: O2 Per Protocol; Complete Time: 15:39 sb4 09/30 15:16 Order name: O2 Sat Monitoring; Complete Time: 15:39 sb4 EC:32 Rate is 82 beats/min. Rhythm is regular, Normal Sinus Rhythm. [place] interval is normal at sb4 164 msec. QRS interval is normal at 74 msec. QT interval is prolonged at 428 msec. Clinical impression: No evidence of ischemia. Interpreted by me. Reviewed by me. Administered Medications: 16:04 Drug: DuoNeb Nebulize (3:1) (2.5 mg - 0.5 mg) 3 ml Nebulizer once Route: Nebulizer; jb4 18:58 Follow up: Response: No adverse reaction jl7 17:59 Drug: morphine IVP or IV 4 mg IVP once over 4 mins Route: IVP; Infused Over: 4 mins; kc6 Site: right hand; 18:25 Follow up: Pain 6/10 Adult; Response: No adverse reaction; Pain is decreased; RASS: jl7 Drowsy (-1) 18:00 Drug: Promethazine IVP 12.5 mg IVP once Route: IVP; Site: right hand; kc6 18:58 Follow up: Response: No adverse reaction jl7 Disposition Summary: 09/30/24 17:55 Hospitalization Ordered Notes: Hospitalization Status: Inpatient Admission sb4 Provider: Ab Ceja sb4 Condition: Fair sb4 Problem: new sb4 Symptoms: are unchanged sb4 Bed/Room Type: Standard sb4 Location: Telemetry/MedSurg (Inpatient)(10/01/24 10:43) em1 Room Assignment: 218(10/01/24 10:43) em1 Diagnosis - Dyspnea, unspecified sb4 - End stage renal disease sb4 - Anemia in chronic kidney disease sb4 Forms: - Medication Reconciliation Form sb4 - SBAR form sb4 - Leadership Thank You Letter sb4 Addendum: 10/02/2024 14:48 Co-signature as Attending Physician, Oscar Shultz MD I agree with the assessment and c sunshine plan of care. Signatures: Dispatcher [employer] Oscar Sparks MD MD cha Martinez, Eric em1 Manolo Juarez RN RN jb4 Neal Hernández RN RN ll1 Lorena Yan RN RN kc6 Shira Wasserman PA-C PAEvelinC sb4 Catina Pantoja Jahala RN jl7 Corrections: (The following items were deleted from the chart) 09/30 21:11 17:55 Telemetry/MedSurg (Inpatient) sb4 vk 17:55 sb4 vk 21:11 vk vk 10/01 10:43 09/30 21:11 [facility] em1 10/01 10:43 09/30 21:11 ERHOLD- vk em1
--- NOTE | 2024-09-30 18:25 | RAD REPORT ---
EXAM:Thorax Wo Con CLINICAL INDICATION: Cough TECHNIQUE: CT chest performed.. Axial, sagittal and coronal reconstructions were obtained. One or mor e of the following dose reduction techniques were used: Automated exposure control, adjustment of the mA and/or kV according to the patient size, and/or iterative reconstruction. Unless otherwise specified, incidental findings do not require dedicated imaging follow-up. [id number]. COMPARISON: 2023 FINDINGS: Evaluation of the mediastinum, scooby and vessels is limited secondary to lack of IV contrast administr ation. Mild bilateral groundglass opacities. No mediastinal or hilar lymphadenopathy No pleural effusion. No pericardial effusion. The heart is moderately enlarged IMPRESSION: Mild bilateral pulmonary opacities may represent mild pulmonary edema
[2024-09-30] MEDS ORDERED: ALBUTEROL 2.5 MG/3 ML NEB SOL NEB PRN (19:51)
[2024-09-30] MEDS: FUROSEMIDE 40 MG/4 ML VIAL IV SCH (19:56)
--- NOTE | 2024-09-30 19:57 | P.HP ---
Certification for Inpatient Patient admitted to: Inpatient With expected LOS: >2 Midnights Practitioner: I am a practitioner with admitting privileges, knowledge of patient current condition, hospital course, and medical plan of care. Services: Services provided to patient in accordance with Admission requirements found in Title 42 Section 412.3 of the Code of Federal Regulations Patient History Date of Service: 09/30/24 Reason for admission: FLUID OVERLOAD History of Present Illness: 39 yrs old Female with past medical history of ESRD on dialysis, hypertension, hyperlipidemia was brought to ER with shortness of breath and cough which has been going on for the last 2 to 3 days and has been progressively getting worse. Shortness of breath started insidiously and has been progressively getting worse. She is extremely getting short of breath even with minimal exertion. Denies any fever or chills. Has cough with mucoid expectoration. No nausea vomiting or diarrhea. She has noticed increased edema all over her body. Denies any sick contacts. No recent travel. Missed her dialysis last one Patient was assessed in the ER and is admitted for further management of fluid overload and missed dialysis Allergies No Known Allergies Allergy (Verified 11/19/19 21:40) Home medications list reviewed: Yes Home Medications: Sevelamer Carbonate [Renvela*] 800 mg PO TIDWM #90 tab 05/12/22 Furosemide [Lasix] 80 mg PO BID 05/29/23 Hydrocodone 5/APAP 325 [[place] 5/325*] 1 tab PO Q6H PRN #10 tab 01/17/24 calcitrioL [Calcitriol] 0.5 mcg PO DAILY #30 cap 01/17/24 Butalb/Acetaminophen/Caffeine [Fioricet 50-300-40 mg Capsule] 1 cap PO Q6HR PRN 05/14/24 Clonidine Patch [Catapres-Tts 1*] 0.1 mg TD DAILY 05/14/24 NIFEdipine [Nifedipine ER] 90 mg PO DAILY #30 tab 05/16/24 Pantoprazole [Protonix Tab] 40 mg PO BID 14 Days #28 tab 05/16/24 carvediloL [Carvedilol] 12.5 mg PO BID #60 tab 05/16/24 lisinopriL [Lisinopril] 40 mg PO DAILY #30 tab 05/16/24 - Past Medical/Surgical History Diabetic: No Past Medical History: Reviewed- Non-Contributory -: HTN -: ESRD on HD (Dr. Monge) M/W/F -: Asthma -: Anemia Past Surgical History: Reviewed- Non-Contributory -: C Section -: Tubal Ligation Psychosocial/ Personal History: Patient lives at home with her 4 children. - Family History Father -: Hypertension Mother -: Heart disease - Social History Smoking Status: Never smoker Alcohol use: No CD- Drugs: No Caffeine use: No Review of Systems 10-point ROS is otherwise unremarkable Other: Constitutional: Reports: generalized weakness. Skin: Denies: rash. Allergy/Immun: Denies: rhinorrhea, sneezing. Eyes: Denies: visual loss/blurred. ENT: Denies: earache, nasal congestion. Respiratory: Denies: non productive cough. Cardiovascular: Denies: chest pain, palpitations. GI: Denies: diarrhea, nausea. : Denies: dysuria. Musculoskeletal: Reports: arthritis. Denies: extremity pain. Heme: Denies: bleeding. Endocrine: Denies: polydipsia. Neuro: Reports: dizziness, gait problem, lightheaded, spinning sensation. Psych: Reports: anxiety. All systems rev & neg: except as noted Physical Examination - Vital Signs Temperature: 98.2 F Blood Pressure: 152/107 Pulse: 88 Respirations: 18 Pulse Ox (%): 94 - Physical Exam General: Alert, Oriented x3, Moderate distress HEENT: Atraumatic, Normocephalic Neck: Supple Respiratory: Diminished, Crackles/rales, Expiratory wheezes Cardiovascular: Regular rate/rhythm, Edema Capillary refill: <2 Seconds Gastrointestinal: Soft and benign, W/out hepatosplenomegaly Musculoskeletal: No clubbing, Swelling Integumentary: No rashes Neurological: Other (Alert awake nonfocal) Lymphatics: No axilla or inguinal lymphadenopathy - Studies Laboratory Data (last 24 hrs) 09/30/24 09/30/24 09/30/24 15:35 15:35 15:35 WBC 9.40 Hgb 6.9 L Hct 20.4 L Plt Count 404 PT 11.8 INR 1.04 APTT 31.0 Sodium 136 Potassium 3.9 BUN 59 H Creatinine 11.20 H Glucose 97 Magnesium 2.4 Total Bilirubin 0.5 AST 29 ALT 31 Alkaline Phosphatase 83 Assessment and Plan - Plan Fluid overload Possibly due to missed dialysis Monitor closely on telemetry Started on aggressive diuresis X-ray findings consistent with fluid overload Oxygen supplementation Will try to wean down oxygen requirement Continue home medications Titrate as needed Hypertension Antihypertensives titrated Continue home medications and titrate as needed Hyperlipidemia Continue statin ESRD on hemodialysis Monitor renal parameters Electrolytes monitor and replace accordingly Nephrology consulted Electrolytes monitor and replace accordingly Anemia of chronic disease Monitor H&H closely No overt bleeding at this time Initially was planning on blood transfusion Repeat H&H was stable Will monitor H&H closely GI/DVT prophylaxis Advanced directive full code Discharge Plan: Home Plan to discharge in: 48 Hours - Advance Directives Does patient have a Living Will: No Does patient have a Durable POA for Healthcare: No - Code Status/Comfort Care Code Status: Full Code Time Spent Managing Pts Care (In Minutes): 48
[2024-09-30] MEDS ORDERED: NA CHLORIDE 0.9% 250 ML IV SCH (20:00)
[2024-09-30 20:43] LABS: Specific Gravity 1.011 (1.005-1.030); Sqamous Epithelial <5 /HPF (None Seen); Urine Bacteria <20 /HPF (<20); Urine Bilirubin NEGATIVE (Negative); Urine Blood Trace (Negative); Urine Clarity Turbid (Clear); Urine Color Light-Yellow (Yellow); Urine Crystals Unidentified Few /HPF (None Seen); Urine Culture Reflex Order NOT NEEDED; Urine Glucose NEGATIVE (Negative); Urine Ketones NEGATIVE (Negative); Urine Micro Reflex YN NO BILL MICROSCOPIC; Urine Microscopic Reflex YN ORDER UMIC; Urine Nitrite NEGATIVE (Negative); Urine Protein 1+ (Negative); Urine RBC <5 /HPF (None Seen); Urine Urobilinogen Normal (Normal)
[2024-09-30 20:51] VITALS: BMI 25.6
[2024-09-30] MEDS: HEPARIN 5000 UNIT/ML 1 ML VIAL SQ SCH (21:00)
[2024-09-30 21:15] LABS: Hematocrit 24.2 % (36.0-45.0); Hemoglobin 8.1 g/dL (12.0-15.0)
[2024-09-30] MEDS ORDERED: FUROSEMIDE 40 MG/4 ML VIAL ONE (21:19)
[2024-09-30] MEDS ORDERED: HEPARIN 5000 UNIT/ML 1 ML VIAL ONE (21:19)
[2024-09-30] MEDS ORDERED: ONDANSETRON 4 MG/2 ML VIAL ONE (21:19)
[2024-09-30] MEDS: ONDANSETRON 4 MG/2 ML VIAL IV PRN (21:38)
[2024-09-30] MEDS ORDERED: MORPHINE 2 MG/ML SYR ONE (23:42)
[2024-09-30] MEDS: MORPHINE 2 MG/ML SYR IV PRN (23:43)
[2024-10-01] MEDS ORDERED: FUROSEMIDE 40 MG/4 ML VIAL ONE ×2 (00:31→10:28)
[2024-10-01] MEDS ORDERED: ALPRAZOLAM 0.5 MG TABLET ONE (01:29)
[2024-10-01] MEDS ORDERED: HYDRALAZINE HCL 20 MG/ML VIAL ONE (01:30)
[2024-10-01] MEDS: HYDRALAZINE HCL 20 MG/ML VIAL IV PRN (01:32)
[2024-10-01] MEDS: ALPRAZOLAM 0.5 MG TABLET PO ONE (01:32)
[2024-10-01] MEDS ORDERED: ONDANSETRON 4 MG/2 ML VIAL ONE (01:47)
[2024-10-01] MEDS ORDERED: MORPHINE 2 MG/ML SYR ONE ×2 (06:07→10:37)
[2024-10-01 07:55] LABS: Absolute Eosinophils 0.2 K/uL (0-0.5); Absolute Monocytes 0.5 K/uL (0.1-1.3); Absolute Neutrophil 5.6 K/uL (1.8-8.0); Basophils % 0.7 % (0-1.3); Eosinophils % 2.8 % (0-4.4); Hemoglobin 7.8 g/dL (12.0-15.0); Lymphocytes % 13.8 % (15.3-44.8); MCHC 33.9 g/dL (32.0-36.0); MCV 91.3 fL (80-100); MPV 6.8 fL (7.6-11.3); Monocytes % 6.8 % (3.3-12.3); Neutrophils % 75.9 % (41.7-73.7); Nucleated Red Blood Cells % 0.6 % (0-0); Platelets 350 thou/uL (152-406); RBC Red Blood Cell Count 2.52 M/uL (3.86-4.86); Red Cell Distribution Width 17.8 % (12.1-15.2)
[2024-10-01 08:31] LABS: ALT/SGPT 26 U/L (13-56); Albumin 3.3 g/dL (3.4-5.0); Albumin/Globulin Ratio 0.9 (1.1-1.8); Alkaline Phosphatase 77 U/L (45-117); Anion Gap 13.4 mEq/L (5.0-15.0); BUN Blood Urea Nitrogen 65 mg/dL (7-18); Bicarbonate 22 mEq/L (21-32); Bilirubin Total 0.7 mg/dL (0.2-1.0); Globulin 3.7 g/dL (2.3-3.5); Glomerular Filtration Rate 4 ml/min (=/>90); Glucose Level 118 mg/dL (74-106); Potassium 4.4 mEq/L (3.5-5.1); Sodium Level 137 mEq/L (136-145)
[2024-10-01 08:41] LABS: AST/SGOT < 10 U/L (15-37)
--- NOTE | 2024-10-01 09:44 | P.CNS ---
Date of Consult: 10/01/24 Reason for Consult: ESRD Requesting Physician: Sameer Jim Chief Complaint: FLUID OVERLOAD History of Present Illness: 39 yrs old Female with past medical history of ESRD on dialysis, hypertension, hyperlipidemia was brought to ER with shortness of breath and cough which has been going on for the last 2 to 3 days and has been progressively getting worse. Shortness of breath started insidiously and has been progressively getting worse. She is extremely getting short of breath even with minimal exertion. Denies any fever or chills. Has cough with mucoid expectoration. No nausea vomiting or diarrhea. She has noticed increased edema all over her body. Denies any sick contacts. No recent travel. Missed her dialysis last one Patient was assessed in the ER and is admitted for further management of fluid overload and missed dialysis 17:29 This 39 yrs old Black Female presents to ER via Wheelchair with complaints of Shortness sb4 Of Breath, Painful Cough. 17:29 Patient reports shortness of breath, productive cough, and chest pain for 2 to 3 days. sb4 Is on dialysis Tuesday, has not been dialyzed in 4 days now. States that she makes minimal urine. Reports increased swelling in her abdomen. Denies any fever or chills. Denies any sick contacts. Denies any nausea, vomiting, diarrhea. Allergies No Known Allergies Allergy (Verified 11/19/19 21:40) Home medications list reviewed: Yes Home Medications: Sevelamer Carbonate [Renvela*] 800 mg PO TIDWM #90 tab 05/12/22 Furosemide [Lasix] 80 mg PO BID 05/29/23 Hydrocodone 5/APAP 325 [[place] 5/325*] 1 tab PO Q6H PRN #10 tab 01/17/24 calcitrioL [Calcitriol] 0.5 mcg PO DAILY #30 cap 01/17/24 Butalb/Acetaminophen/Caffeine [Fioricet 50-300-40 mg Capsule] 1 cap PO Q6HR PRN 05/14/24 Clonidine Patch [Catapres-Tts 1*] 0.1 mg TD DAILY 05/14/24 NIFEdipine [Nifedipine ER] 90 mg PO DAILY #30 tab 05/16/24 Pantoprazole [Protonix Tab] 40 mg PO BID 14 Days #28 tab 05/16/24 carvediloL [Carvedilol] 12.5 mg PO BID #60 tab 05/16/24 lisinopriL [Lisinopril] 40 mg PO DAILY #30 tab 05/16/24 - Past Medical/Surgical History Diabetic: No -: HTN -: ESRD on HD (Dr. Monge) M/W/F -: Asthma -: Anemia -: C Section -: Tubal Ligation Psychosocial/ Personal History: Patient lives at home with her 4 children. - Family History Father Medical History: Hypertension Mother Medical History: Heart disease - Social History Smoking Status: Unknown if ever smoked Alcohol use: No CD- Drugs: No Caffeine use: No Place of Residence: Home Review of Systems 10-point ROS is otherwise unremarkable Respiratory: Cough, SOB with Excertion Physical Examination Temp Pulse Resp BP Pulse Ox 98.2 F 93 H 18 158/84 H 100 10/01/24 04:00 10/01/24 04:00 10/01/24 06:10 10/01/24 04:00 10/01/24 06:10 General: In no apparent distress, Cooperative HEENT: Atraumatic Neck: Supple Respiratory: Normal air movement Cardiovascular: Regular rate/rhythm, Edema Gastrointestinal: Non-distended, No guarding Musculoskeletal: No clubbing, No contractures Integumentary: No rashes, No cyanosis Neurological: Normal speech Laboratory Data (last 24 hrs) 09/30/24 09/30/24 09/30/24 15:35 15:35 15:35 WBC 9.40 Hgb 6.9 L Hct 20.4 L Plt Count 404 PT 11.8 INR 1.04 APTT 31.0 Sodium 136 Potassium 3.9 BUN 59 H Creatinine 11.20 H Glucose 97 Magnesium 2.4 Total Bilirubin 0.5 AST 29 ALT 31 Alkaline Phosphatase 83 Imagings Data: EXAM:Thorax Wo Con CLINICAL INDICATION: Cough TECHNIQUE: CT chest performed.. Axial, sagittal and coronal reconstructions were obtained. One or more of the following dose reduction techniques were used: Automated exposure control, adjustment of the mA and/or kV according to the patient size, and/or iterative reconstruction. Unless otherwise specified, incidental findings do not require dedicated imaging follow-up. [id number]. COMPARISON: 2023 FINDINGS: Evaluation of the mediastinum, scooby and vessels is limited secondary to lack of IV contrast administration. Mild bilateral groundglass opacities. No mediastinal or hilar lymphadenopathy No pleural effusion. No pericardial effusion. The heart is moderately enlarged IMPRESSION: Mild bilateral pulmonary opacities may represent mild pulmonary edema Procedure: Chest Single View HISTORY: Shortness of breath COMPARISON: June 2024 FINDINGS: Upper lobe vessels are prominent indicative of pulmonary venous hypertension. The lungs appear clear of acute infiltrate. No significant pleural effusion noted. The heart is moderately enlarged. Conclusions/Impression: LEFT VENTRICULAR WALL MOTION: NORMAL DOPPLER/COLOR FLOW: SEE BELOW 1. NORMAL LEFT VENTRICULAR EJECTION FRACTION 55-60% WITH NORMAL WALL MOTION. 2. MODERATE CONCENTRIC LEFT VENTRICULAR HYPERTROPHY 3. SEVERE TRICUSPID REGURGITATION 4. MODERATE TO SEVERE MITRAL REGURGITATION 5. LEFT ATRIAL ENLARGEMENT 6. MODERATE PULMONIC INSUFFICIENCY AND MILD AORTIC INSUFFICIENCY 7. SEVERE PULMONARY HYPERTENSION WITH RIGHT VENTRICULAR SYSTOLIC PRESSURE GREATER THAN 80 mmHg ESRD on HD -Acute HD ordered HTN with CKD/ CHF -Continue Coreg -Continue Lisinopril & Nifedipine -Continue Clonidine Diastolic CHF, chronic LVH Pulmonary HTN Severe TR & MR Moderate Pulmonic & Aoritc insufficiency -UF with HD -Continue furosemide Anemia in CKD -PRBC prn -Retacrit qHD CKD MBD -Start Renvela -Start Calcitriol Hospitalist and ER notes reviewed Thank you kindly for the consultation
[2024-10-01] MEDS ORDERED: MANNITOL 25% 12.5 GM/50 ML VIAL IV PRN (09:46)
[2024-10-01] MEDS ORDERED: NA CHLORIDE 0.9% 1,000 ML IV PRN (09:46)
[2024-10-01] MEDS ORDERED: ALBUMIN HUMAN 25% 50 ML IV SCH (10:00)
[2024-10-01] MEDS: lisinopriL 20 MG TAB PO SCH (10:00)
[2024-10-01] MEDS: PANTOPRAZOLE 40MG TABLET PO SCH (10:02)
--- NOTE | 2024-10-01 10:09 | P.PN ---
Subjective Date of Service: 10/01/24 Chief Complaint: FLUID OVERLOAD Subjective: No chest pain. c/o some shortness of breath. No nausea or vomiting. c/o some abdominal pain. Had some blood when she spit up. Looks comfortable in the bed. Objective: General appearance: Alert and comfortable CVS: Normal S1 and S2 Lungs: Clear to auscultation bilaterally Abdomen: Soft, bowel sounds present, no tenderness Extremities: No lower extremity edema Physical Examination - Vital Signs Temperature: 98.2 F Blood Pressure: 158/84 Pulse: 93 Respirations: 18 Pulse Ox (%): 100 - Studies Laboratory Data (last 24 hrs) 09/30/24 09/30/24 09/30/24 15:35 15:35 15:35 WBC 9.40 Hgb 6.9 L Hct 20.4 L Plt Count 404 PT 11.8 INR 1.04 APTT 31.0 Sodium 136 Potassium 3.9 BUN 59 H Creatinine 11.20 H Glucose 97 Magnesium 2.4 Total Bilirubin 0.5 AST 29 ALT 31 Alkaline Phosphatase 83 Assessment And Plan - Plan 1. Fluid overload due to missed dialysis on tuesday -cont Iv diuresis -X-ray and CT chest findings consistent with fluid overload -Oxygen supplementation - Dialysis as per nephrology. - Complaining of some abdominal pain, she says this is from volume overload, will check CT abdomen to make sure. Had some blood when she spit up / cough, this could be from volume overload as well. 2. Hypertension Continue home medications and titrate as needed 3. Hyperlipidemia Continue statin 4. ESRD on hemodialysis Nephrology consulted Dialysis as per nephrology. 5. Anemia of chronic disease No overt bleeding at this time Initially was planning on blood transfusion Repeat H&H was stable Will monitor H&H closely Plan discussed with patient and nursing staff, answered all questions.
[2024-10-01] MEDS ORDERED: lisinopriL 20 MG TAB ONE (10:27)
[2024-10-01] MEDS ORDERED: PANTOPRAZOLE 40MG TABLET PO ONE (10:27)
[2024-10-01] MEDS: HYDROCODONE/APAP 5/325 MG TAB PO PRN (10:30)
[2024-10-01] MEDS: CLONIDINE 0.1 MG/PATCH TD SCH (10:35)
[2024-10-01] MEDS ORDERED: HYDROCODONE/APAP 5/325 MG TAB ONE (10:38)
--- NOTE | 2024-10-01 10:58 | RAD REPORT ---
EXAMINATION: Abdomen Pelvis Wo Contrast CLINICAL INDICATION: Female, 39 years old.abdominal pain TECHNIQUE: CT abdomen and pelvis was performed, without IV contrast, as per department protocol. Axia l, sagittal and coronal reconstructions were obtained. One or more of the following dose reduction techniques were used: Automated exposure control, adjustment of the mA and/or kV according to the pat ient size, and/or iterative reconstruction. Unless otherwise specified, incidental findings do not require dedicated imaging follow-up. [id number]. IV CONTRAST: Not administered. COMPARISON: 06/15/2024 FINDINGS: The lack of intravenous contrast limits the sensitivity of this exam for evaluation of solid visceral organs, vascular structures, and retroperitoneum. LOWER CHEST: Trace left pleural effusion with possible pulmonary edemaModerate cardiomegaly. UPPER GI: No significant abnormality. LIVER: No significant focal abnormality. GALLBLADDER/BILE DUCTS: Probable gallbladder wall thickening likely related to underlying fluid statu s.? PANCREAS: No mass, ductal dilation, or dion-pancreatic fluid. SPLEEN: Unremarkable. ADRENALS: No adrenal masses. KIDNEYS AND URETERS: No hydronephrosis.Limited evaluation for renal lesions in the absence of IV cont rast.No renal calculi.No ureteral calculi. Atrophic kidneys bilaterally. ABDOMINAL AORTA AND OTHER VESSELS: Moderate atherosclerotic changes without aortic aneurysm. PERITONEUM: Mild ascites. LYMPH NODES: No pathologic lymphadenopathy. ABDOMINAL WALL: Mild body wall edema. SMALL BOWEL/COLON: Diffuse small bowel and colonic wall thickening which is probably related to under lying fluid status.Normal appendix. URINARY BLADDER: Underdistended but grossly unremarkable. REPRODUCTIVE ORGANS: No pathologic process. MUSCULOSKELETAL: No acute or suspicious osseous abnormality. ADDITIONAL FINDINGS: None. IMPRESSION: Anasarca which may be related to heart failure. Ascites present. Diffuse small bowel and colonic wall thickening probably related to fluid status. Pulmonary edema identified in the lung bases and body wall edema also present.
[2024-10-01] MEDS: NIFEDIPINE XL 60 MG TABLET PO SCH (11:00)
[2024-10-01] MEDS: hydrOXYzine HCL 25 MG TAB PO PRN (15:24)
[2024-10-01] MEDS: carvediloL 12.5 MG TAB PO SCH (15:42)
[2024-10-01 16:08] LABS: Hepatitis B Surface Ab - Quant > 1000.00 mIU/mL (<8.0); Hepatitis B surface AG Interp. Nonreactive (Nonreactive)
[2024-10-01 16:09] LABS: HBsAG Nonreactive Report Report
[2024-10-01] MEDS: DOCUSATE NA 100 MG CAP PO SCH (20:52)
[2024-10-01] MEDS: ALPRAZOLAM 0.25 MG TABLET PO PRN (21:31)
[2024-10-01] MEDS ORDERED: TRAMADOL HCL 50 MG TAB PO PRN (23:37)
[2024-10-01] MEDS: ALPRAZOLAM 0.25 MG TABLET PO ONE (23:57)
[2024-10-02 05:22] LABS: Absolute Basophils 0.1 K/uL (0-0.5); Absolute Eosinophils 0.3 K/uL (0-0.5); Absolute Monocytes 0.5 K/uL (0.1-1.3); Absolute Neutrophil 4.5 K/uL (1.8-8.0); Eosinophils % 4.3 % (0-4.4); Hematocrit 24.9 % (36.0-45.0); Hemoglobin 8.5 g/dL (12.0-15.0); Lymphocytes % 15.9 % (15.3-44.8); MCH 31.3 pg (27.0-35.0); MCHC 34.1 g/dL (32.0-36.0); MCV 91.7 fL (80-100); Monocytes % 7.8 % (3.3-12.3); Nucleated Red Blood Cells % 0.4 % (0-0); Platelets 316 thou/uL (152-406); RBC Red Blood Cell Count 2.71 M/uL (3.86-4.86); Red Cell Distribution Width 18.2 % (12.1-15.2)
[2024-10-02] MEDS: CALCITROL 0.25 MCG CAP PO SCH (10:12)
[2024-10-02] MEDS: DRISDOL (VITAMIN D=ERGOCALCIFEROL) 50000 UNIT CAP PO SCH (10:12)
[2024-10-02] MEDS: MULTIVITAMINS,THERAPEUT 1 TAB PO SCH (10:13)
[2024-10-02] MEDS: SEVELAMER CARBONATE 800 MG TABLET PO SCH (10:13)
[2024-10-02] MEDS: carvediloL 12.5 MG TAB PO ONE (10:13)
--- NOTE | 2024-10-02 13:24 | ECHO ---
HEIGHT: 5 ft 2 in WEIGHT: 140 lb 0 oz DATE OF STUDY: 10/02/[address]: Sameer Jim 2-DIMENSIONAL: YES M.MODE: YES DOPPLER: YES COLOR FLOW: YES TDS: PORTABLE: YES DEFINITY: BUBBLE STUDY: DIAGNOSIS: CONGESTIVE HEART FAILURE CARDIAC HISTORY: CATHERIZATION: NO SURGERY: NO PROSTHETIC VALVE: NO PACEMAKER: NO MEASUREMENTS (cm) DIASTOLIC (NORMALS) SYSTOLIC (NORMALS) IVSd 1.1 (0.6-1.2) LA Diam 4.3 (1.9-4.0) LVEF 60-65% LVIDd 4.7 (3.5-5.7) LVIDs 3.2 (2.0-3.5) %FS 33% LVPWd 1.6 (0.6-1.2) Ao Diam 2.8 (2.0-3.7) 2 DIMENSIONAL ASSESSMENT: RIGHT ATRIUM: NORMAL LEFT ATRIUM: MODERATELY DILATED RIGHT VENTRICLE: NORMAL LEFT VENTRICLE: MODERATE LEFT VENTRICULAR HYPERTROPHY TRICUSPID VALVE: MODERATE TRICUSPID REGURGITATION MITRAL VALVE: MODERATE MITRAL REGURGITATION PULMONIC VALVE: MILD PULMONIC REGURGITATION AORTIC VALVE: MILD AORTIC REGURGITATION PERICARDIAL EFFUSION: NONE AORTIC ROOT: NORMAL LEFT VENTRICULAR WALL MOTION: NORMAL DOPPLER/COLOR FLOW: GRADE II DIASTOLIC DYSFUNCTION COMMENTS: 1. NORMAL LEFT VENTRICULAR SYSTOLIC FUNCTION, EJECTION FRACTION 60-65%, NORMAL WALL MOTION 2. GRADE II DIASTOLIC DYSFUNCTION 3. ELEVATED FILLING PRESSURE (RIGHT ATRIAL PRESSURE 10-15 mmHg) 4. MODERATE PULMONARY HYPERTENSION (RIGHT VENTRICULAR SYSTOLIC PRESSURE 50-55 mmHg) 5. MODERATE MITRAL REGURGITATION TECHNOLOGIST: JU MCFARLAND
--- NOTE | 2024-10-02 14:14 | P.PN ---
Subjective Date of Service: 10/02/24 Chief Complaint: FLUID OVERLOAD Subjective: No chest pain. shortness of breath improving. No nausea or vomiting. abdominal pain improving. blood in the sputum better. Looks comfortable in the bed. Objective: General appearance: Alert and comfortable CVS: Normal S1 and S2 Lungs: Clear to auscultation bilaterally Abdomen: Soft, bowel sounds present, no tenderness Extremities: No lower extremity edema Physical Examination - Vital Signs Temperature: 98.1 F Blood Pressure: 132/72 Pulse: 70 Respirations: 24 Pulse Ox (%): 94 Assessment And Plan - Plan 1. Fluid overload due to missed dialysis on tuesday -cont Iv diuresis -X-ray and CT chest findings consistent with fluid overload -Ct abdomen with anasarca -Oxygen supplementation PRN - Dialysis as per nephrology. - Had some blood when she spit up / cough, this could be from volume overload as well, better today. - She may need daily dialysis for few days, notified nephrology. 2. Hypertension Continue home medications and titrate as needed 3. Hyperlipidemia Continue statin 4. ESRD on hemodialysis Nephrology consulted Dialysis as per nephrology. 5. Anemia of chronic disease No overt bleeding at this time Initially was planning on blood transfusion Repeat H&H was stable Will monitor H&H closely, [place] PRN 6. ?underlying CHF: Echo showed 60 to 65% ejection fraction, grade 2 diastolic dysfunction, moderate TR, moderate MR, moderate pulmonary hypertension, will request cardiology consult. Plan discussed with patient and nursing staff, answered all questions.
[2024-10-02] MEDS: carvediloL 25 MG TAB PO SCH (17:37)
--- NOTE | 2024-10-02 19:56 | P.PN ---
Date of Service: 10/02/24 Vital Signs Temp Pulse Resp BP Pulse Ox 98 F 74 20 135/76 98 10/02/24 16:00 10/02/24 16:00 10/02/24 16:00 10/02/24 16:00 10/02/24 16:00 Medications Acetaminophen (Acetaminophen 325 Mg Tablet) 650 mg PO Q4HP PRN PRN Reason: Pain scale 2-4 (Mild) Hydrocodone Bitart/Acetaminophen (Hydrocodone/Apap 5/325 Mg Tab) 1 tab PO Q4H PRN PRN Reason: Pain scale 5-7 (Moderate) Last Admin: 10/02/24 10:13 Dose: 1 tab Albuterol Sulfate (Albuterol 2.5 Mg/3 Ml Neb Sarah) 2.5 mg NEB Q6HP PRN PRN Reason: SHORTNESS OF BREATH Alprazolam (Alprazolam 0.25 Mg Tablet) 0.25 mg PO Q8HP PRN PRN Reason: INSOMNIA Last Admin: 10/02/24 10:26 Dose: 0.25 mg Calcitriol (Calcitrol 0.25 Mcg Cap) 0.5 mcg PO DAILY [facility] Last Admin: 10/02/24 10:12 Dose: 0.5 mcg Carvedilol (Carvedilol 25 Mg Tab) 25 mg PO BID 6AM 6PM [facility] Last Admin: 10/02/24 17:37 Dose: Not Given Clonidine HCl (Clonidine 0.1 Mg/Patch) 0.1 mg TD EVERY 7TH DAY [facility] Last Admin: 10/01/24 10:35 Dose: 0.1 mg Docusate Sodium (Docusate Na 100 Mg Cap) 100 mg PO BID [facility] Last Admin: 10/02/24 10:12 Dose: 100 mg Epoetin Urbin (Epoetin Rubin 10,000 Unit/Ml Vial) 10,000 unit IV EVERY HD [facility] Ergocalciferol (Drisdol (Vitamin D=Ergocalciferol) 19378 Unit Cap) 50,000 unit PO DAILY [facility] Stop: 10/03/24 09:01 Last Admin: 10/02/24 10:12 Dose: 50,000 unit Furosemide (Furosemide 40 Mg/4 Ml Vial) 40 mg IV Q8HR [facility] Last Admin: 10/02/24 17:00 Dose: Not Given Heparin Sodium (Porcine) (Heparin 5000 Unit/Ml 1 Ml Vial) 5,000 unit SQ Q12HR [facility] Last Admin: 10/02/24 10:13 Dose: 5,000 unit Heparin Sodium (Porcine) (Heparin 1,000 Unit/Ml Vial) 3,000 unit IV EVERY HD PRN PRN Reason: Prevent HD System Clotting Hydralazine HCl (Hydralazine Hcl 20 Mg/Ml Vial) 10 mg IV Q4HP PRN PRN Reason: FOR SBP>160 OR DBP>100 MMHG Last Admin: 10/01/24 01:32 Dose: 10 mg Hydroxyzine HCl (Hydroxyzine Hcl 25 Mg Tab) 25 mg PO Q6HP PRN PRN Reason: ITCHING Last Admin: 10/01/24 15:24 Dose: 25 mg Sodium Chloride (Sodium Chloride) 250 mls @ 0 mls/hr IV .Q0M [facility] Albumin Human (Albumin 25%) 50 mls @ 100 mls/hr IV EVERY HD [facility] Lisinopril (Lisinopril 20 Mg Tab) 40 mg PO DAILY [facility] Last Admin: 10/02/24 10:12 Dose: 40 mg Mannitol (Mannitol 25% 12.5 Gm/50 Ml Vial) 12.5 gm IV EVERY HD PRN PRN Reason: Titrate to SBP (MUST DEFINE) Morphine Sulfate (Morphine 2 Mg/Ml Syr) 2 mg IV Q4H PRN PRN Reason: Pain scale 8-10 (Severe) Last Admin: 10/02/24 03:30 Dose: 2 mg Nifedipine (Nifedipine Xl 60 Mg Tablet) 60 mg PO DAILY [facility] Last Admin: 10/02/24 10:13 Dose: 60 mg Ondansetron HCl (Ondansetron 4 Mg/2 Ml Vial) 4 mg IV Q6HP PRN PRN Reason: NAUSEA / VOMITING Last Admin: 10/01/24 15:24 Dose: 4 mg Pantoprazole Sodium ([facility] 40mg Tablet) [facility] Protocol Last Admin: 10/02/24 05:51 Dose: 40 mg Sevelamer Carbonate (Sevelamer Carbonate 800 Mg Tablet) 800 mg PO TIDWM [facility] Last Admin: 10/02/24 17:00 Dose: Not Given Tramadol HCl (Tramadol Hcl 50 Mg Tab) 50 mg PO Q6H PRN PRN Reason: Pain scale 5-7 (Moderate) Vitamin B Complex/Vit C/Folic Acid (Multivitamins,Therapeut 1 Tab) 1 tab PO DAILY [facility] Last Admin: 10/02/24 10:13 Dose: 1 tab Assessment/ Plan: Nephrology No dyspnea No chest pain No acute events overnight Vitals, medications, blood work and imaging reviewed in the chart General: In no apparent distress, Cooperative HEENT: Atraumatic Neck: Supple Respiratory: Normal air movement Cardiovascular: Regular rate/rhythm, Edema Gastrointestinal: Non-distended, No guarding Musculoskeletal: No clubbing, No contractures Integumentary: No rashes, No cyanosis Neurological: Normal speech Laboratory Data (last 24 hrs) 09/30/24 09/30/24 09/30/24 15:35 15:35 15:35 WBC 9.40 Hgb 6.9 L Hct 20.4 L Plt Count 404 PT 11.8 INR 1.04 APTT 31.0 Sodium 136 Potassium 3.9 BUN 59 H Creatinine 11.20 H Glucose 97 Magnesium 2.4 Total Bilirubin 0.5 AST 29 ALT 31 Alkaline Phosphatase 83 Imagings Data: EXAM:Thorax Wo Con CLINICAL INDICATION: Cough TECHNIQUE: CT chest performed.. Axial, sagittal and coronal reconstructions were obtained. One or more of the following dose reduction techniques were used: Automated exposure control, adjustment of the mA and/or kV according to the patient size, and/or iterative reconstruction. Unless otherwise specified, incidental findings do not require dedicated imaging follow-up. [id number]. COMPARISON: 2023 FINDINGS: Evaluation of the mediastinum, scooby and vessels is limited secondary to lack of IV contrast administration. Mild bilateral groundglass opacities. No mediastinal or hilar lymphadenopathy No pleural effusion. No pericardial effusion. The heart is moderately enlarged IMPRESSION: Mild bilateral pulmonary opacities may represent mild pulmonary edema Procedure: Chest Single View HISTORY: Shortness of breath COMPARISON: June 2024 FINDINGS: Upper lobe vessels are prominent indicative of pulmonary venous hypertension. T he lungs appear clear of acute infiltrate. No significant pleural effusion noted. The heart is moderately enlarged. LEFT VENTRICULAR WALL MOTION: NORMAL DOPPLER/COLOR FLOW: GRADE II DIASTOLIC DYSFUNCTION 1. NORMAL LEFT VENTRICULAR SYSTOLIC FUNCTION, EJECTION FRACTION 60-65%, NORMAL WALL MOTION 2. GRADE II DIASTOLIC DYSFUNCTION 3. ELEVATED FILLING PRESSURE (RIGHT ATRIAL PRESSURE 10-15 mmHg) 4. MODERATE PULMONARY HYPERTENSION (RIGHT VENTRICULAR SYSTOLIC PRESSURE 50-55 mmHg) 5. MODERATE MITRAL REGURGITATION Conclusions/Impression: ESRD on HD -HD TIW -Seen and examined on dialysis today HTN with CKD/ CHF -Continue Coreg -Continue Lisinopril & Nifedipine -Continue Clonidine TD Diastolic CHF, chronic LVH Pulmonary HTN Severe TR & MR Moderate Pulmonic & Aoritc insufficiency -Ultrafiltration today -Continue furosemide Anemia in CKD -PRBC prn -Retacrit qHD CKD MBD -Continue Renvela -Continue Calcitriol Case reviewed with Dr. Jim
[2024-10-03 05:31] LABS: Absolute Basophils 0.1 K/uL (0-0.5); Absolute Eosinophils 0.3 K/uL (0-0.5); Absolute Lymphocytes (CBC) 1.7 K/uL (0.7-4.9); Absolute Monocytes 0.5 K/uL (0.1-1.3); Absolute Neutrophil 2.3 K/uL (1.8-8.0); Basophils % 1.3 % (0-1.3); Eosinophils % 5.9 % (0-4.4); Hematocrit 27.3 % (36.0-45.0); Hemoglobin 9.2 g/dL (12.0-15.0); Lymphocytes % 35.9 % (15.3-44.8); MCH 31.2 pg (27.0-35.0); MCHC 33.7 g/dL (32.0-36.0); MCV 92.7 fL (80-100); MPV 7.1 fL (7.6-11.3); Monocytes % 9.6 % (3.3-12.3); Neutrophils % 47.3 % (41.7-73.7); Nucleated Red Blood Cells % 0.3 % (0-0); Platelets 296 thou/uL (152-406); RBC Red Blood Cell Count 2.95 M/uL (3.86-4.86); Red Cell Distribution Width 18.8 % (12.1-15.2)
[2024-10-03 06:09] LABS: Anion Gap 9.4 mEq/L (5.0-15.0); Potassium 4.4 mEq/L (3.5-5.1)
--- NOTE | 2024-10-03 12:23 | P.CNS ---
Date of Consult: 10/03/24 Chief Complaint: FLUID OVERLOAD History of Present Illness: Patient with PMH of ESRD on HD, HTN presented with worsening SOB and CORRAL, report occasional palpitations, denies chest pain, no syncope. Allergies No Known Allergies Allergy (Verified 11/19/19 21:40) Home medications list reviewed: Yes Home Medications: Sevelamer Carbonate [Renvela*] 800 mg PO TIDWM #90 tab 05/12/22 Furosemide [Lasix] 80 mg PO BID 05/29/23 Hydrocodone 5/APAP 325 [Dixie 5/325*] 1 tab PO Q6H PRN #10 tab 01/17/24 calcitrioL [Calcitriol] 0.5 mcg PO DAILY #30 cap 01/17/24 Butalb/Acetaminophen/Caffeine [Fioricet 50-300-40 mg Capsule] 1 cap PO Q6HR PRN 05/14/24 Clonidine Patch [Catapres-Tts 1*] 0.1 mg TD DAILY 05/14/24 NIFEdipine [Nifedipine ER] 90 mg PO DAILY #30 tab 05/16/24 Pantoprazole [Protonix Tab] 40 mg PO BID 14 Days #28 tab 05/16/24 carvediloL [Carvedilol] 12.5 mg PO BID #60 tab 05/16/24 lisinopriL [Lisinopril] 40 mg PO DAILY #30 tab 05/16/24 - Past Medical/Surgical History Diabetic: No -: HTN -: ESRD on HD (Dr. Monge) M/W/F -: Asthma -: Anemia -: C Section -: Tubal Ligation Psychosocial/ Personal History: Patient lives at home with her 4 children. - Family History Father Medical History: Hypertension Mother Medical History: Heart disease - Social History Smoking Status: Unknown if ever smoked Alcohol use: No CD- Drugs: No Caffeine use: No Place of Residence: Home Review of Systems 10-point ROS is otherwise unremarkable Physical Examination Temp Pulse Resp BP Pulse Ox 98.3 F 62 18 111/69 100 10/03/24 12:00 10/03/24 12:00 10/03/24 12:00 10/03/24 12:00 10/03/24 12:00 General: Alert, In no apparent distress HEENT: Atraumatic, PERRLA, Mucous membr. moist/pink, EOMI, Sclerae nonicteric Neck: Supple, 2+ carotid pulse no bruit, No LAD, Without JVD or thyroid abnormality Respiratory: Clear to auscultation bilaterally, Normal air movement Cardiovascular: Regular rate/rhythm, Normal S1 S2 Gastrointestinal: Normal bowel sounds, No tenderness Musculoskeletal: No tenderness Integumentary: No rashes Neurological: Normal gait, Normal speech, Normal tone, Normal affect Lymphatics: No axilla or inguinal lymphadenopathy - Problems (1) Acute on chronic diastolic heart failure Current Visit: Yes Status: Acute Plan: Continue Coreg 25 mg bid continue lisinopril 40 mg daily continue lasix 40 mg IV TID, patient is mainly dialysis dependant and she produce very small urine continue volume adjusement through dialysis consider adding Jardiance 10 mg daily at discharge. outpatient follow up with cardiology (2) Moderate mitral regurgitation Current Visit: Yes Status: Acute Plan: will follow up on it with annual echo (3) Moderate pulmonary hypertension Current Visit: Yes Status: Acute Plan: continue above medications and volume adjustment through dialysis
--- NOTE | 2024-10-03 12:33 | P.PN ---
Subjective Date of Service: 10/03/24 Chief Complaint: FLUID OVERLOAD Subjective: No chest pain. shortness of breath improving. No nausea or vomiting. abdominal pain improving. blood in the sputum better. Looks comfortable in the bed. Objective: General appearance: Alert and comfortable CVS: Normal S1 and S2 Lungs: Clear to auscultation bilaterally Abdomen: Soft, bowel sounds present, no tenderness Extremities: No lower extremity edema Physical Examination - Vital Signs Temperature: 98.3 F Blood Pressure: 111/69 Pulse: 62 Respirations: 18 Pulse Ox (%): 100 Assessment And Plan - Plan 1. Fluid overload due to missed dialysis on tuesday -cont Iv diuresis -X-ray and CT chest findings consistent with fluid overload -Ct abdomen with anasarca -Oxygen supplementation PRN - Dialysis as per nephrology. - Had some blood when she spit up / cough, this could be from volume overload as well, better today. 2. Hypertension Continue current medications and titrate as needed 3. Hyperlipidemia Continue statin 4. ESRD on hemodialysis Nephrology consulted Dialysis as per nephrology. 5. Anemia of chronic disease No overt bleeding at this time Initially was planning on blood transfusion Repeat H&H was stable Will monitor H&H closely, [place] PRN 6. Acute diastolic CHF: Echo showed 60 to 65% ejection fraction, grade 2 diastolic dysfunction, moderate TR, moderate MR, moderate pulmonary hypertension, requested cardiology consult, appreciate recommendations. Plan discussed with patient and nursing staff, answered all questions.
--- NOTE | 2024-10-03 12:47 | EKG ---
Test Date: 2024-09-30 Test Time: 15:28:45 Eyeglass Lens Grinder: MEHNAZ MEASUREMENT RESULTS: Intervals: Rate: 82 MD: 164 QRSD: 74 QT: 428 QTc: 500 [place]: P: 69 MD: 164 QRS: 74 T: 94 INTERPRETIVE STATEMENTS: Normal sinus rhythm Biatrial enlargement Septal infarct, age undetermined Prolonged QT Abnormal ECG Compared to ECG 06/15/2024 13:19:52 Myocardial infarct finding now present ST (T wave) deviation no longer present Electronically Signed On 10-03-24 12:40:43 CDT by Gregg Lares
[2024-10-03] MEDS: EPOETIN ALFA 10,000 UNIT/ML VIAL IV SCH (15:45)
--- NOTE | 2024-10-03 20:57 | P.PN ---
Date of Service: 10/03/24 Vital Signs Temp Pulse Resp BP Pulse Ox 98.3 F 62 18 111/69 100 10/03/24 12:32 10/03/24 12:32 10/03/24 12:32 10/03/24 12:32 10/03/24 12:32 Medications Acetaminophen (Acetaminophen 325 Mg Tablet) 650 mg PO Q4HP PRN PRN Reason: Pain scale 2-4 (Mild) Albuterol Sulfate (Albuterol 2.5 Mg/3 Ml Neb Sarah) 2.5 mg NEB Q6HP PRN PRN Reason: SHORTNESS OF BREATH Alprazolam (Alprazolam 0.25 Mg Tablet) 0.25 mg PO Q8HP PRN PRN Reason: INSOMNIA Last Admin: 10/03/24 18:01 Dose: 0.25 mg Calcitriol (Calcitrol 0.25 Mcg Cap) 0.5 mcg PO DAILY [facility] Last Admin: 10/03/24 09:14 Dose: 0.5 mcg Carvedilol (Carvedilol 25 Mg Tab) 25 mg PO BID 6AM 6PM [facility] Last Admin: 10/03/24 18:01 Dose: 25 mg Clonidine HCl (Clonidine 0.1 Mg/Patch) 0.1 mg TD EVERY 7TH DAY [facility] Last Admin: 10/01/24 10:35 Dose: 0.1 mg Docusate Sodium (Docusate Na 100 Mg Cap) 100 mg PO BID [facility] Last Admin: 10/03/24 09:14 Dose: 100 mg Epoetin Rubin (Epoetin Rubin 10,000 Unit/Ml Vial) 10,000 unit IV EVERY HD [facility] Last Admin: 10/03/24 15:45 Dose: 10,000 unit Furosemide (Furosemide 40 Mg/4 Ml Vial) 40 mg IV Q8HR [facility] Last Admin: 10/03/24 18:01 Dose: 40 mg Heparin Sodium (Porcine) (Heparin 5000 Unit/Ml 1 Ml Vial) 5,000 unit SQ Q12HR [facility] Last Admin: 10/03/24 09:00 Dose: Not Given Heparin Sodium (Porcine) (Heparin 1,000 Unit/Ml Vial) 3,000 unit IV EVERY HD PRN PRN Reason: Prevent HD System Clotting Last Admin: 10/03/24 12:57 Dose: 3,000 unit Hydralazine HCl (Hydralazine Hcl 20 Mg/Ml Vial) 10 mg IV Q4HP PRN PRN Reason: FOR SBP>160 OR DBP>100 MMHG Last Admin: 10/01/24 01:32 Dose: 10 mg Hydroxyzine HCl (Hydroxyzine Hcl 25 Mg Tab) 25 mg PO Q6HP PRN PRN Reason: ITCHING Last Admin: 10/03/24 06:16 Dose: 25 mg Sodium Chloride (Sodium Chloride) 250 mls @ 0 mls/hr IV .Q0M [facility] Albumin Human (Albumin 25%) 50 mls @ 100 mls/hr IV EVERY HD [facility] Lisinopril (Lisinopril 20 Mg Tab) 40 mg PO DAILY [facility] Last Admin: 10/03/24 09:00 Dose: Not Given Mannitol (Mannitol 25% 12.5 Gm/50 Ml Vial) 12.5 gm IV EVERY HD PRN PRN Reason: Titrate to SBP (MUST DEFINE) Morphine Sulfate (Morphine 2 Mg/Ml Syr) 2 mg IV Q4H PRN PRN Reason: Pain scale 8-10 (Severe) Last Admin: 10/03/24 05:00 Dose: 2 mg Nifedipine (Nifedipine Xl 60 Mg Tablet) 60 mg PO DAILY [facility] Last Admin: 10/03/24 09:00 Dose: Not Given Ondansetron HCl (Ondansetron 4 Mg/2 Ml Vial) 4 mg IV Q6HP PRN PRN Reason: NAUSEA / VOMITING Last Admin: 10/01/24 15:24 Dose: 4 mg Pantoprazole Sodium (Pantoprazole 40mg Tablet) 40 mg PO DAILYAC [facility]; Protocol Last Admin: 10/03/24 06:03 Dose: 40 mg Sevelamer Carbonate (Sevelamer Carbonate 800 Mg Tablet) 800 mg PO TIDWM [facility] Last Admin: 10/03/24 18:01 Dose: 800 mg Tramadol HCl (Tramadol Hcl 50 Mg Tab) 50 mg PO Q6H PRN PRN Reason: Pain scale 5-7 (Moderate) Vitamin B Complex/Vit C/Folic Acid (Multivitamins,Therapeut 1 Tab) 1 tab PO DAILY [facility] Last Admin: 10/03/24 09:14 Dose: 1 tab Assessment/ Plan: Nephrology No dyspnea. Dyspnea improved with UF yesterday No chest pain No acute events overnight Vitals, medications, blood work and imaging reviewed in the chart General: In no apparent distress, Cooperative HEENT: Atraumatic Neck: Supple Respiratory: Normal air movement Cardiovascular: Regular rate/rhythm, Edema Gastrointestinal: Non-distended, No guarding Musculoskeletal: No clubbing, No contractures Integumentary: No rashes, No cyanosis Neurological: Normal speech Laboratory Data (last 24 hrs) 09/30/24 09/30/24 09/30/24 15:35 15:35 15:35 WBC 9.40 Hgb 6.9 L Hct 20.4 L Plt Count 404 PT 11.8 INR 1.04 APTT 31.0 Sodium 136 Potassium 3.9 BUN 59 H Creatinine 11.20 H Glucose 97 Magnesium 2.4 Total Bilirubin 0.5 AST 29 ALT 31 Alkaline Phosphatase 83 Imagings Data: EXAM:Thorax Wo Con CLINICAL INDICATION: Cough TECHNIQUE: CT chest performed.. Axial, sagittal and coronal reconstructions were obtained. One or more of the following dose reduction techniques were used: Automated exposure control, adjustment of the mA and/or kV according to the patient size, and/or iterative reconstruction. Unless otherwise specified, incidental findings do not require dedicated imaging follow-up. [id number]. COMPARISON: 2023 FINDINGS: Evaluation of the mediastinum, scooby and vessels is limited secondary to lack of IV contrast administration. Mild bilateral groundglass opacities. No mediastinal or hilar lymphadenopathy No pleural effusion. No pericardial effusion. The heart is moderately enlarged IMPRESSION: Mild bilateral pulmonary opacities may represent mild pulmonary edema Procedure: Chest Single View HISTORY: Shortness of breath COMPARISON: June 2024 FINDINGS: Upper lobe vessels are prominent indicative of pulmonary venous hypertension. The lungs appear clear of acute infiltrate. No significant pleural effusion noted. The heart is moderately enlarged. LEFT VENTRICULAR WALL MOTION: NORMAL DOPPLER/COLOR FLOW: GRADE II DIASTOLIC DYSFUNCTION 1. NORMAL LEFT VENTRICULAR SYSTOLIC FUNCTION, EJECTION FRACTION 60-65%, NORMAL WALL MOTION 2. GRADE II DIASTOLIC DYSFUNCTION 3. ELEVATED FILLING PRESSURE (RIGHT ATRIAL PRESSURE 10-15 mmHg) 4. MODERATE PULMONARY HYPERTENSION (RIGHT VENTRICULAR SYSTOLIC PRESSURE 50-55 mmHg) 5. MODERATE MITRAL REGURGITATION Conclusions/Impression: ESRD on HD -HD TIW -HD today HTN with CKD/ CHF -Continue Coreg -Continue Lisinopril & Nifedipine -Continue Clonidine TD Diastolic CHF, chronic LVH Pulmonary HTN Severe TR & MR Moderate Pulmonic & Aoritc insufficiency -UF with HD today -Continue furosemide Anemia in CKD -PRBC prn -Retacrit qHD CKD MBD -Continue Renvela -Continue Calcitriol Hospitalist note reviewed
[2024-10-03] MEDS: TRAZODONE 50 MG TABLET PO PRN (22:07)
[2024-10-03] MEDS: CYCLOBENZAPRINE 10 MG TAB PO SCH (22:07)
[2024-10-04 05:25] VITALS: TEMP 98.7
[2024-10-04] MEDS: MORPHINE 2 MG/ML SYR IV ONE (07:51)
[2024-10-04 08:12] LABS: Absolute Basophils 0.1 K/uL (0-0.5); Absolute Eosinophils 0.3 K/uL (0-0.5); Absolute Lymphocytes (CBC) 1.9 K/uL (0.7-4.9); Absolute Monocytes 0.6 K/uL (0.1-1.3); Absolute Neutrophil 2.7 K/uL (1.8-8.0); Basophils % 1.5 % (0-1.3); Eosinophils % 5.6 % (0-4.4); Hematocrit 29.7 % (36.0-45.0); Hemoglobin 9.9 g/dL (12.0-15.0); Lymphocytes % 33.7 % (15.3-44.8); MCH 31.2 pg (27.0-35.0); MCHC 33.2 g/dL (32.0-36.0); MPV 6.9 fL (7.6-11.3); Monocytes % 10.9 % (3.3-12.3); Neutrophils % 48.3 % (41.7-73.7); Nucleated Red Blood Cells % 0.4 % (0-0); Platelets 330 thou/uL (152-406); RBC Red Blood Cell Count 3.16 M/uL (3.86-4.86)
[2024-10-04 08:39] LABS: Anion Gap 9.7 mEq/L (5.0-15.0); Potassium 4.7 mEq/L (3.5-5.1)
[2024-10-04] MEDS ORDERED: CYCLOBENZAPRINE 10 MG TAB PO SCH (09:00)
[2024-10-04 09:12] VITALS: O2SAT 99
[2024-10-04] MEDS: ACETAMINOPHEN 325 MG TABLET PO PRN (09:37)
[2024-10-04 09:39] VITALS: BP 123/68
--- NOTE | 2024-10-04 10:12 | P.PN ---
Date of Service: 10/04/24 Vital Signs Temp Pulse Resp BP Pulse Ox 98.7 F 62 14 123/68 99 10/04/24 08:00 10/04/24 09:39 10/04/24 08:21 10/04/24 09:39 10/04/24 08:21 Medications Acetaminophen (Acetaminophen 325 Mg Tablet) 650 mg PO Q4HP PRN PRN Reason: Pain scale 2-4 (Mild) Last Admin: 10/04/24 09:37 Dose: 650 mg Hydrocodone Bitart/Acetaminophen (Hydrocodone/Apap 5/325 Mg Tab) 1 tab PO Q6H PRN PRN Reason: Pain scale 5-7 (Moderate) Albuterol Sulfate (Albuterol 2.5 Mg/3 Ml Neb Sarah) 2.5 mg NEB Q6HP PRN PRN Reason: SHORTNESS OF BREATH Alprazolam (Alprazolam 0.25 Mg Tablet) 0.25 mg PO Q8HP PRN PRN Reason: INSOMNIA Last Admin: 10/04/24 03:39 Dose: 0.25 mg Calcitriol (Calcitrol 0.25 Mcg Cap) 0.5 mcg PO DAILY [facility] Last Admin: 10/04/24 07:37 Dose: 0.5 mcg Carvedilol (Carvedilol 25 Mg Tab) 25 mg PO BID 6AM 6PM [facility] Last Admin: 10/04/24 05:18 Dose: Not Given Clonidine HCl (Clonidine 0.1 Mg/Patch) 0.1 mg TD EVERY 7TH DAY [facility] Last Admin: 10/01/24 10:35 Dose: 0.1 mg Cyclobenzaprine HCl (Cyclobenzaprine 10 Mg Tab) 5 mg PO TID [facility] Last Admin: 10/04/24 09:37 Dose: 5 mg Docusate Sodium (Docusate Na 100 Mg Cap) 100 mg PO BID [facility] Last Admin: 10/04/24 07:37 Dose: 100 mg Epoetin Rubin (Epoetin Rubin 10,000 Unit/Ml Vial) 10,000 unit IV EVERY HD [facility] Last Admin: 10/03/24 15:45 Dose: 10,000 unit Furosemide (Furosemide 40 Mg/4 Ml Vial) 40 mg IV Q8HR [facility] Last Admin: 10/04/24 09:00 Dose: Not Given Heparin Sodium (Porcine) (Heparin 5000 Unit/Ml 1 Ml Vial) 5,000 unit SQ Q12HR [facility] Last Admin: 10/04/24 07:37 Dose: 5,000 unit Heparin Sodium (Porcine) (Heparin 1,000 Unit/Ml Vial) 3,000 unit IV EVERY HD PRN PRN Reason: Prevent HD System Clotting Last Admin: 10/03/24 12:57 Dose: 3,000 unit Hydralazine HCl (Hydralazine Hcl 20 Mg/Ml Vial) 10 mg IV Q4HP PRN PRN Reason: FOR SBP>160 OR DBP>100 [facility] Last Admin: 10/01/24 01:32 Dose: 10 mg Hydroxyzine HCl (Hydroxyzine Hcl 25 Mg Tab) 25 mg PO Q6HP PRN PRN Reason: ITCHING Last Admin: 10/04/24 05:18 Dose: 25 mg Sodium Chloride (Sodium Chloride) 250 mls @ 0 mls/hr IV .Q0M [facility] Albumin Human (Albumin 25%) 50 mls @ 100 mls/hr IV EVERY HD [facility] Lisinopril (Lisinopril 20 Mg Tab) 40 mg PO DAILY [facility] Last Admin: 10/04/24 07:36 Dose: 40 mg Mannitol (Mannitol 25% 12.5 Gm/50 Ml Vial) 12.5 gm IV EVERY HD PRN PRN Reason: Titrate to SBP (MUST DEFINE) Morphine Sulfate (Morphine 2 Mg/Ml Syr) 2 mg IV Q4H PRN PRN Reason: Pain scale 8-10 (Severe) Last Admin: 10/04/24 00:52 Dose: 2 mg Nifedipine (Nifedipine Xl 60 Mg Tablet) 60 mg PO DAILY [facility] Last Admin: 10/04/24 07:37 Dose: 60 mg Ondansetron HCl (Ondansetron 4 Mg/2 Ml Vial) 4 mg IV Q6HP PRN PRN Reason: NAUSEA / VOMITING Last Admin: 10/01/24 15:24 Dose: 4 mg Pantoprazole Sodium ([facility] 40mg Tablet) [facility] Last Admin: 10/04/24 05:18 Dose: 40 mg Sevelamer Carbonate (Sevelamer Carbonate 800 Mg Tablet) 800 mg PO TIDWM [facility] Last Admin: 10/04/24 07:37 Dose: 800 mg Trazodone HCl (Trazodone 50 Mg Tablet) 50 mg PO BEDTIME PRN PRN PRN Reason: INSOMNIA Last Admin: 10/03/24 22:07 Dose: 50 mg Vitamin B Complex/Vit C/Folic Acid (Multivitamins,Therapeut 1 Tab) 1 tab PO DAILY [facility] Last Admin: 10/04/24 07:36 Dose: 1 tab Lab Results (last 24 hrs) 09/30/24 17:09: Crossmatch See Detail Assessment/ Plan: Nephrology No dyspnea No chest pain Feeling better overall No acute events overnight Vitals, medications, blood work and imaging reviewed in the chart General: In no apparent distress, Cooperative HEENT: Atraumatic Neck: Supple Respiratory: Normal air movement Cardiovascular: Regular rate/rhythm, Edema Gastrointestinal: Non-distended, No guarding Musculoskeletal: No clubbing, No contractures Integumentary: No rashes, No cyanosis Neurological: Normal speech Laboratory Data (last 24 hrs) 09/30/24 09/30/24 09/30/24 15:35 15:35 15:35 WBC 9.40 Hgb 6.9 L Hct 20.4 L Plt Count 404 PT 11.8 INR 1.04 APTT 31.0 Sodium 136 Potassium 3.9 BUN 59 H Creatinine 11.20 H Glucose 97 Magnesium 2.4 Total Bilirubin 0.5 AST 29 ALT 31 Alkaline Phosphatase 83 Imagings Data: EXAM:Thorax Wo Con CLINICAL INDICATION: Cough TECHNIQUE: CT chest performed.. Axial, sagittal and coronal reconstructions were obtained. One or more of the following dose reduction techniques were used: Automated exposure control, adjustment of the mA and/or kV according to the patient size, and/or iterative reconstruction. Unless otherwise specified, incidental findings do not require dedicated imaging follow-up. [id number]. COMPARISON: 2023 FINDINGS: Evaluation of the mediastinum, scooby and vessels is limited secondary to lack of IV contrast administration. Mild bilateral groundglass opacities. No mediastinal or hilar lymphadenopathy No pleural effusion. No pericardial effusion. The heart is moderately enlarged IMPRESSION: Mild bilateral pulmonary opacities may represent mild pulmonary edema Procedure: Chest Single View HISTORY: Shortness of breath COMPARISON: June 2024 FINDINGS: Upper lobe vessels are prominent indicative of pulmonary venous hypertension. The lungs appear clear of acute infiltrate. No significant pleural effusion noted. The heart is moderately enlarged. LEFT VENTRICULAR WALL MOTION: NORMAL DOPPLER/COLOR FLOW: GRADE II DIASTOLIC DYSFUNCTION 1. NORMAL LEFT VENTRICULAR SYSTOLIC FUNCTION, EJECTION FRACTION 60-65%, NORMAL WALL MOTION 2. GRADE II DIASTOLIC DYSFUNCTION 3. ELEVATED FILLING PRESSURE (RIGHT ATRIAL PRESSURE 10-15 mmHg) 4. MODERATE PULMONARY HYPERTENSION (RIGHT VENTRICULAR SYSTOLIC PRESSURE 50-55 mmHg) 5. MODERATE MITRAL REGURGITATION Conclusions/Impression: ESRD on HD -HD TIW -HD tomorrow HTN with CKD/ CHF -Continue Coreg -Continue Lisinopril & Nifedipine -Continue Clonidine TD Diastolic CHF, chronic LVH Pulmonary HTN Severe TR & MR Moderate Pulmonic & Aoritc insufficiency -UF with HD -Continue furosemide -Low sodium diet counseled; Yuriy'attila Tomato soup at the bedside Anemia in CKD -PRBC prn -Retacrit qHD CKD MBD -Continue Renvela -Continue Calcitriol Hospitalist note reviewed
--- NOTE | 2024-10-04 10:33 | P.DS ---
Admission Date: 09/30/24 Discharge Date: 10/04/24 Disposition: DC HOME/HOME HEALTH CARE Discharge Condition: GOOD Reason for Admission: FLUID OVERLOAD Hospital Course: Discharge diagnosis: 1. Fluid overload due to missed dialysis on tuesday -given Iv diuretics -X-ray and CT chest findings consistent with fluid overload -Ct abdomen with anasarca - Dialysis as per nephrology. - Had some blood when she spit up / cough, this could be from volume overload as well, better today. 2. Hypertension Continue current medications 3. Hyperlipidemia Continue statin 4. ESRD on hemodialysis Nephrology consulted Dialysis as per nephrology. 5. Anemia of chronic disease No overt bleeding at this time Initially was planning on blood transfusion Repeat H&H was stable 6. Acute diastolic CHF: Echo showed 60 to 65% ejection fraction, grade 2 diastolic dysfunction, moderate TR, moderate MR, moderate pulmonary hypertension, requested cardiology consult, appreciate recommendations. Plan discussed with patient and nursing staff, answered all questions. DC home today Hospital course: 39-year-old patient admitted with volume overload from missed dialysis, nephrology was consulted, she was given diuretics, started on dialysis, she had an extra cycle of ultrafiltration during the hospital course, she had a regular dialysis yesterday, when I see the patient today she is doing well without any acute problems and feels ready to go home, otherwise no other acute issues going on, I discussed with nephrology, they cleared her to discharge and follow-up as an outpatient for dialysis tomorrow, so I am planning to discharge her discharged to go home. Subjective: No chest pain. shortness of breath improved. No nausea or vomiting. abdominal pain improved. blood in the sputum better. Looks comfortable in the bed. Complaining of menstrual bleeding and cramps, complaining of some headache but this is migraine headache and comes with menstrual cycles, she takes medications at home for migraine. Objective: General appearance: Alert and comfortable CVS: Normal S1 and S2 Lungs: Clear to auscultation bilaterally Abdomen: Soft, bowel sounds present, no tenderness Extremities: No lower extremity edema. 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 Vital Signs/Physical Exam: Temp Pulse Resp BP Pulse Ox 98.7 F 62 14 123/68 99 10/04/24 08:00 10/04/24 09:39 10/04/24 08:21 10/04/24 09:39 10/04/24 08:21 Laboratory Data at Discharge: WBC 5.70 thou/uL (4.3-10.9) 10/04/24 07:51 Hgb 9.9 g/dL (12.0-15.0) L 10/04/24 07:51 Hct 29.7 % (36.0-45.0) L 10/04/24 07:51 Plt Count 330 thou/uL (152-406) 10/04/24 07:51 PT 11.8 SECONDS (10-13.0) 09/30/24 15:35 INR 1.04 09/30/24 15:35 APTT 31.0 SECONDS (27.2-37.4) 09/30/24 15:35 Sodium 136 mEq/L (136-145) 10/04/24 07:56 Potassium 4.7 mEq/L (3.5-5.1) 10/04/24 07:56 BUN 24 mg/dL (7-18) H 10/04/24 07:56 Creatinine 5.80 mg/dL (0.55-1.02) H 10/04/24 07:56 Glucose 105 mg/dL (74-106) 10/04/24 07:56 Magnesium 2.4 mg/dL (1.6-2.4) 09/30/24 15:35 Total Bilirubin 0.7 mg/dL (0.2-1.0) 10/01/24 07:45 AST < 10 U/L (15-37) L 10/01/24 07:45 ALT 26 U/L (13-56) 10/01/24 07:45 Alkaline Phosphatase 77 U/L (45-117) 10/01/24 07:45 Home Medications: Sevelamer Carbonate [Renvela*] 800 mg PO TIDWM #90 tab 05/12/22 Furosemide [Lasix] 80 mg PO BID 05/29/23 Hydrocodone 5/APAP 325 [[place] 5/325*] 1 tab PO Q6H PRN #10 tab 01/17/24 calcitrioL [Calcitriol] 0.5 mcg PO DAILY #30 cap 01/17/24 Butalb/Acetaminophen/Caffeine [Fioricet 50-300-40 mg Capsule] 1 cap PO Q6HR PRN 05/14/24 Clonidine Patch [Catapres-Tts 1*] 0.1 mg TD DAILY 05/14/24 NIFEdipine [Nifedipine ER] 90 mg PO DAILY #30 tab 05/16/24 Pantoprazole [Protonix Tab*] 40 mg PO BID 14 Days #28 tab 05/16/24 carvediloL [Carvedilol] 12.5 mg PO BID #60 tab 05/16/24 lisinopriL [Lisinopril] 40 mg PO DAILY #30 tab 05/16/24 Empagliflozin [Jardiance] 10 mg PO DAILY #30 tab 10/04/24 New Medications: Empagliflozin [Jardiance] 10 mg PO DAILY #30 tab Diet: Renal Activity: Ad corby Followup: Sami Monge DO [ACTIVE - CAN ADMIT] - 1-2 Weeks NONE,NONE [Primary Care Provider] - 1 Week (f/u with PCP in 1 week with CBC and CMP) Gregg Lares MD [ACTIVE - CAN ADMIT] - 1-2 Weeks Time spent managing pt's care (in minutes): 40
--- NOTE | 2024-10-04 10:34 | P.PN ---
Subjective Date of Service: 10/04/24 Chief Complaint: FLUID OVERLOAD Subjective: No new changes, No C/O voiced, Tolerating diet, Ambulating, Improving Review of Systems 10-point ROS is otherwise unremarkable Physical Examination - Vital Signs Temperature: 98.7 F Blood Pressure: 123/68 Pulse: 62 Respirations: 14 Pulse Ox (%): 99 - Physical Exam General: Alert, In no apparent distress HEENT: Atraumatic, PERRLA, EOMI Neck: Supple, JVD not distended Respiratory: Clear to auscultation bilaterally, Normal air movement Cardiovascular: Regular rate/rhythm, Normal S1 S2 Gastrointestinal: Normal bowel sounds, No tenderness Musculoskeletal: No tenderness Integumentary: No rashes Neurological: Normal speech, Normal tone, Normal affect Lymphatics: No axilla or inguinal lymphadenopathy - Studies Medications List Reviewed: Yes Assessment And Plan - Current Problems (Diagnosis) (1) Acute on chronic diastolic heart failure Current Visit: Yes Status: Acute Plan: Continue Coreg 25 mg bid continue lisinopril 40 mg daily continue lasix 40 mg IV TID, patient is mainly dialysis dependant and she produce very small urine continue volume adjusement through dialysis consider adding Jardiance 10 mg daily at discharge. outpatient follow up with cardiology (2) Moderate mitral regurgitation Current Visit: Yes Status: Acute Plan: will follow up on it with annual echo (3) Moderate pulmonary hypertension Current Visit: Yes Status: Acute Plan: continue above medications and volume adjustment through dialysis
[2024-10-04] MEDS: HYDROCODONE/APAP 5/325 MG TAB PO PRN (11:31)
== END 2024-10-04 12:00 | disposition home health service (06) | DRG 640 ==
LOC: ER 14:57 → ERHOLD 19:51 → 2ND 10-01 11:00
PROVIDERS: ADMIT Family Medicine; ATTEND Hospitalist
PROC: 5A1D70Z Performance of Urinary Filtration, Intermittent, Less than 6 Hours Per Day (ICD-10-PCS; principal; 2024-09-30)
PROC: 30233N1 Transfusion of Nonautologous Red Blood Cells into Peripheral Vein, Percutaneous Approach (ICD-10-PCS; 2024-09-30)
DX: E87.70 Fluid overload, unspecified (principal); I50.33 Acute on chronic diastolic (congestive) heart failure; N18.6 End stage renal disease; I13.2 Hypertensive heart and chronic kidney disease with heart failure and with stage 5 chronic kidney disease, or end stage renal disease; D63.1 Anemia in chronic kidney disease; E78.5 Hyperlipidemia, unspecified; I27.20 Pulmonary hypertension, unspecified; I08.1 Rheumatic disorders of both mitral and tricuspid valves; F17.210 Nicotine dependence, cigarettes, uncomplicated; Z99.2 Dependence on renal dialysis; Z91.158 Patient's noncompliance with renal dialysis for other reason; Z79.899 Other long term (current) drug therapy; Z79.02 Long term (current) use of antithrombotics/antiplatelets; Z11.52 Encounter for screening for COVID-19
CPT/HCPCS: 36415; 71045; 71250; 74176; 80048; 80053; 80076; 81001; 83735; 83880; 84484; 85014; 85018; 85025; 85610; 85730; 86706; 86850; 86900; 86901; 86920; 87340; 87428; 90935; 93005; 93306; 94760; 96374; 96375; 99285; J0360; J1644; J1938; J2270; J2405; J2550; J7613; J7644; Q4081

== ENCOUNTER 2024-11-02 01:21 | Observation (INO) | payer OTHER ==
[2024-11-02] MEDS ORDERED: NITROGLYCERIN 0.4 MG/TAB SL ONE (02:08)
[2024-11-02] MEDS ORDERED: ASPIRIN 81 MG CHEWABLE TABLET ONE (02:08)
[2024-11-02] MEDS ORDERED: DIPHENHYDRAMINE 50 MG/ML VIAL ONE (02:51)
[2024-11-02] MEDS ORDERED: METOCLOPRAMIDE 10 MG/2mL INJ ONE (02:51)
[2024-11-02 03:15] LABS: Absolute Basophils 0.1 K/uL (0-0.5); Absolute Eosinophils 0.2 K/uL (0-0.5); Absolute Lymphocytes (CBC) 1.6 K/uL (0.7-4.9); Absolute Monocytes 0.4 K/uL (0.1-1.3); Absolute Neutrophil 4.8 K/uL (1.8-8.0); Basophils % 1.2 % (0-1.3); Hematocrit 32.5 % (36.0-45.0); Hemoglobin 10.8 g/dL (12.0-15.0); Lymphocytes % 22.6 % (15.3-44.8); MCH 31.2 pg (27.0-35.0); MCHC 33.2 g/dL (32.0-36.0); MCV 93.7 fL (80-100); MPV 8.1 fL (7.6-11.3); Monocytes % 5.4 % (3.3-12.3); Neutrophils % 67.8 % (41.7-73.7); Platelets 224 thou/uL (152-406); RBC Red Blood Cell Count 3.47 M/uL (3.86-4.86); Red Cell Distribution Width 15.9 % (12.1-15.2)
[2024-11-02 03:41] LABS: Albumin 3.5 g/dL (3.4-5.0); Albumin/Globulin Ratio 0.9 (1.1-1.8); Anion Gap 15.6 mEq/L (5.0-15.0); Bilirubin Direct 0.2 mg/dL (0-0.2); Bilirubin Indirect, Calculated 0.4 mg/dL (0.2-0.8); Bilirubin Total 0.6 mg/dL (0.2-1.0); Globulin 3.9 g/dL (2.3-3.5); Magnesium 2.4 mg/dL (1.6-2.4); Potassium 3.6 mEq/L (3.5-5.1); Protein, Total 7.4 g/dL (6.4-8.2); Troponin High Sensitivity 36.4 pg/mL (<58.9)
--- NOTE | 2024-11-02 05:30 | RAD REPORT ---
EXAM DESCRIPTION: Chest Single View CLINICAL HISTORY: CHEST PAIN COMPARISON: None TECHNIQUE: Single AP view of the chest. FINDINGS: Lung volumes adequate. Cardiac silhouette is enlarged. Bilateral interstitial thickening. No pneumothorax. No large pleural effusion. No focal consolidation. No acute bony finding. Chronic appearing fracture deformity of the right distal clavicle. IMPRESSION: 1. Bilateral interstitial thickening, could represent pulmonary edema. 2. Enlarged cardiac silhouette. Electronically signed by: Gregorio Ramos MD 11/02/2024 04:15 AM CDT TYG Due to temporary technical issues with the [employer]ACS/[employer] reporting system, reports are being radha d by the in-house radiologist without review as a courtesy to ensure prompt reporting the interpreting radiologist is fully responsible for the content of the report. Transcribed Date/Time: 11/02/2024 5:29 AM
--- NOTE | 2024-11-02 06:13 | ER ---
Nurse's Notes [facility] Name: Nely Quinones Age: 39 yrs Sex: Female : 1985 Arrival Date: 11/02/2024 Time: : Bed 12 Private MD: Sami Monge Diagnosis: Chest pain;Volume overload;ESRD Presentation: 11/02 01:31 Chief complaint: Patient states: LEFT FLANK PAIN, SHORTNESS OF BREATH . MISSED DIALYSIS ha1 ON TUESDAY. : Coronavirus screen: Client denies travel out of the [place] in the last 14 days. Ebola ha1 Screen: No symptoms or risks identified at this time. Initial Sepsis Screen: Does the patient meet any 2 criteria? No. Patient's initial sepsis screen is negative. Does the patient have a suspected source of infection? No. Patient's initial sepsis screen is negative. Risk Assessment: Do you want to hurt yourself or someone else? Patient reports no desire to harm self or others. Onset of symptoms was November 02, 2024. : Method Of Arrival: Wheelchair ha1 01:31 Acuity: LORENA 3 ha1 Triage Assessment: : General: Appears uncomfortable, Behavior is cooperative. Pain: Complains of pain in ha1 posterior aspect of left lateral abdomen Pain currently is 9 out of 10 on a pain scale. Quality of pain is described as throbbing. Neuro: Level of Consciousness is awake, alert, obeys commands, Oriented to person, place, time, situation. Cardiovascular: Capillary refill < 3 seconds Patient's skin is warm and dry. Respiratory: Reports shortness of breath Airway is patent Respiratory effort is even, unlabored, Respiratory pattern is regular, symmetrical. 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 - Infectious Disease History:: Denies. - Social history:: Smoking status: Patient denies any tobacco usage or history of. - Family history:: not pertinent. Screenin:13 [facility] ED Fall Risk Assessment (Adult) History of falling in the last 3 months, cp4 including since admission No falls in past 3 months (0 pts) Confusion or Disorientation No (0 pts) Intoxicated or Sedated No (0 pts) Impaired Gait No (0 pts) Mobility Assist Device Used No (0 pt) Altered Elimination No (0 pt) Score/Fall Risk Level 0 - 2 = Low Risk Oriented to surroundings, Maintained a safe environment, Assessed \\T\\ reinforced patient's understanding of fall precautions, Hourly rounding (assess needs \\T\\ fall precautionary measures) done. Abuse screen: Denies threats or abuse. Denies injuries from another. Nutritional screening: No deficits noted. Tuberculosis screening: No symptoms or risk factors identified. Assessment: 02:13 General: Appears in no apparent distress. uncomfortable, Behavior is calm, cooperative, cp4 appropriate for age. Pain: Complains of pain in abdomen and posterior aspect of left lateral abdomen Pain does not radiate. Pain currently is 10 out of 10 on a pain scale. Pain began gradually. Neuro: Level of Consciousness is awake, alert, obeys commands, Oriented to person, place, time, situation. Cardiovascular: Patient's skin is warm and dry. Cardiovascular: Reports chest pain. Respiratory: Airway is patent Respiratory effort is even, unlabored. GI: Abdomen is round non-distended, Bowel sounds present X 4 quads. Abd is soft and non tender X 4 quads. : No signs and/or symptoms were reported regarding the genitourinary system. EENT: No signs and/or symptoms were reported regarding the EENT system. Derm: No signs and/or symptoms reported regarding the dermatologic system. Musculoskeletal: No signs and/or symptoms reported regarding the musculoskeletal system. 03:30 Reassessment: Patient appears in no apparent distress at this time. Patient and/or cp4 family updated on plan of care and expected duration. Pain level reassessed. Patient is alert, oriented x 3, equal unlabored respirations, skin warm/dry/pink. 04:30 Reassessment: Patient appears in no apparent distress at this time. Patient and/or cp4 family updated on plan of care and expected duration. Pain level reassessed. Patient is alert, oriented x 3, equal unlabored respirations, skin warm/dry/pink. 05:35 Reassessment: Patient appears in no apparent distress at this time. Patient and/or cp4 family updated on plan of care and expected duration. Pain level reassessed. Patient is alert, oriented x 3, equal unlabored respirations, skin warm/dry/pink. 07:26 General: Appears in no apparent distress. uncomfortable, Behavior is fussy. Pain: ld1 Complains of pain in chest Pain does not radiate. Pain currently is 8 out of 10 on a pain scale. Pain began gradually. Neuro: Level of Consciousness is awake, alert, obeys commands, Oriented to person, place, time, situation. Cardiovascular: Capillary refill < 3 seconds Patient's skin is warm and dry. Rhythm is sinus rhythm. Respiratory: Airway is patent Respiratory effort is even, unlabored. 07:26 Reassessment: Pt requesting pain medication. States "I hurt all over, and my chest." L ld1 ADAL Pulliam ordered oral medication - pt states "Why can't I have IV pain medication?". 14:12 General: Pt currently in dialysis. kb3 Vital Signs: 01:31 BP 181 / 123; Pulse 81; Resp 17 S; Temp 98.2(T); Pulse Ox 99% on R/A; Weight 68.04 kg; ha1 Height 5 ft. 3 in. ; 02:56 BP 174 / 116; Pulse 85; Resp 18; Pulse Ox 98% ; cp4 04:01 BP 176 / 118; Pulse 77; Resp 18; Pulse Ox 100% ; cp4 05:34 BP 162 / 117; Pulse 76; Resp 18; Pulse Ox 97% ; cp4 07:26 BP 170 / 118; Pulse 88; Resp 18; Pulse Ox 99% on R/A; Pain 8/10; ld1 01:31 Body Mass Index 26.57 (68.04 kg, 160.02 cm) ha1 07:26 Pain Scale: Adult ld1 ED Course: 01:22 Patient arrived in ED. jj6 01:24 Clayton Friend MD is Attending Physician. rt 01:25 Sami Monge DO is Private Physician. jj6 01:54 Triage completed. ha1 01:58 Andria Luico is Primary Nurse. cp4 02:11 Inserted saline lock: 22 gauge in right hand, using aseptic technique. Flushed with 10 oe mL NS. 02:13 No provider procedures requiring assistance completed. Patient maintains SpO2 cp4 saturation greater than 95% on room air. 02:13 Bed in low position. Call light in reach. Side rails up X2. Client placed on continuous cp4 cardiac and pulse oximetry monitoring. NIBP monitoring applied. school lunch monitor on. Pulse ox on. NIBP on. 03:32 XRAY Chest (1 view) In Process Unspecified. EDMS 06:11 Toby Neil MD is Hospitalizing Provider. rt 13:37 Attending Physician role handed off by Clayton Friend MD eb 13:37 Primary Nurse role handed off by Andria Lucio Administered Medications: 02:12 Drug: Aspirin PO Chewable Tablet 324 mg PO once; 81 mg tablets x 4 Route: PO; cp4 02:47 Follow up: Response: No adverse reaction cp4 02:12 Drug: Nitroglycerin Sublingual 0.4 mg Sublingual once; every five minute if needed x3 cp4 Route: Sublingual; 02:47 Follow up: Response: No adverse reaction cp4 02:56 Drug: Nitroglycerin Sublingual 0.4 mg Sublingual once; every five minute if needed x3 cp4 Route: Sublingual; 05:42 Follow up: Response: No adverse reaction cp4 02:56 Drug: metoCLOPramide IVP 10 mg IVP once; over 1 to 2 minutes Route: IVP; Site: right cp4 hand; 05:42 Follow up: Response: No adverse reaction cp4 02:56 Drug: diphenhydrAMINE IVP 25 mg IVP once Route: IVP; Site: right hand; cp4 05:41 Follow up: Response: No adverse reaction cp4 07:26 Drug: HYDROcodone-acetaminophen PO 5 mg-325 mg 1 tabs PO once Route: PO; ld1 08:28 Follow up: Response: No adverse reaction ld1 08:59 Not Given (Duplicate Order): clonidinepatch 0.2 mg/24 hr 1 patches Transdermal once ld1 Medication: 02:13 VIS not applicable for this client. cp4 Outcome: 06:12 Decision to Hospitalize by Provider. rt 12:20 Patient left the ED. eb 15:56 Patient left the ED. iw Signatures: Dispatcher [employer] [facility] Iona Jackson RN RN iw Espinosa, Orlando oe Botello, Elizabeth eb Sims, Lauren, RN RN ld1 Zahira Masters jj6 Tia Donald, RN RN ha1 Comfort Hong RN RN kb3 Clayton Friend MD MD rt Potter, Christina cp4
--- NOTE | 2024-11-02 06:13 | EDPHYS ---
Physician Documentation [facility] Name: Nely Quinones Age: 39 yrs Sex: Female : 1985 Arrival Date: 11/02/2024 Time: 01:21 Bed 12 Private MD: Sami Monge ED Physician HPI: 11/02 02:40 This 39 yrs old Black Female presents to ER via Wheelchair with complaints of Chest rt Pain, Breathing Difficulty, Abdominal Pain, Missed last dialysis appointment. 02:40 Patient with history of ESRD on Tuesday dialysis presents to the ED rt with chest pain, shortness of breath starting today. Patient missed her last dialysis session. Denies other acute complaints at this time, symptoms are moderate in severity, no other aggravating or alleviating factors.. 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 - Infectious Disease History:: Denies. - Social history:: Smoking status: Patient denies any tobacco usage or history of. - Family history:: not pertinent. ROS: 02:40 Constitutional: Negative for fever, chills, and weight loss, Abdomen/GI: Negative for rt abdominal pain, nausea, vomiting, diarrhea, and constipation, MS/Extremity: Negative for injury and deformity, Skin: Negative for injury, rash, and discoloration, Neuro: Negative for headache, weakness, numbness, tingling, and seizure, 02:40 Cardiovascular: Positive for chest pain, Negative for edema, 02:40 Respiratory: Positive for cough, shortness of breath, Exam: 02:40 Constitutional: This is a well developed, well nourished patient who is awake, alert, rt and in no acute distress. Head/Face: Normocephalic, atraumatic. Chest/axilla: Normal chest wall appearance and motion. Nontender with no deformity. No lesions are appreciated. Cardiovascular: Regular rate and rhythm with a normal S1 and S2. No gallops, murmurs, or rubs. Normal PMI, no JVD. No pulse deficits. Respiratory: Lungs have equal breath sounds bilaterally, clear to auscultation and percussion. No rales, rhonchi or wheezes noted. No increased work of breathing, no retractions or nasal flaring. Abdomen/GI: Soft, non-tender, with normal bowel sounds. No distension or tympany. No guarding or rebound. No evidence of tenderness throughout. Skin: Warm, dry with normal turgor. Normal color with no rashes, no lesions, and no evidence of cellulitis. MS/ Extremity: Pulses equal, no cyanosis. Neurovascular intact. Full, normal range of motion. 02:40 ECG was reviewed by the Attending Physician. Vital Signs: 01:31 BP 181 / 123; Pulse 81; Resp 17 S; Temp 98.2(T); Pulse Ox 99% on R/A; Weight 68.04 kg; ha1 Height 5 ft. 3 in. ; 02:56 BP 174 / 116; Pulse 85; Resp 18; Pulse Ox 98% ; cp4 04:01 BP 176 / 118; Pulse 77; Resp 18; Pulse Ox 100% ; cp4 05:34 BP 162 / 117; Pulse 76; Resp 18; Pulse Ox 97% ; cp4 07:26 BP 170 / 118; Pulse 88; Resp 18; Pulse Ox 99% on R/A; Pain 8/10; ld1 01:31 Body Mass Index 26.57 (68.04 kg, 160.02 cm) ha1 07:26 Pain Scale: Adult ld1 MDM: 01:49 Medical Screening Exam initiated rt 05:26 Differential diagnosis: ACS, volume overload, uremia, hyperkalemia. Data reviewed: rt vital signs, nurses notes, lab test result(s), EKG, radiologic studies. Consideration of Admission/Observation Patient was admitted/placed on observation. Management of patient was discussed with the following: Hospitalist: Agrees to admit. Independent interpretation of the following test(s) in the Emergency Department X-Ray: My interpretation is Pulmonary edema seen on my interpretation of x-ray images. Care significantly affected by the following chronic conditions: Chronic Kidney Disease. Counseling: I had a detailed discussion with the patient and/or guardian regarding the historical points, exam findings, and any diagnostic results supporting the discharge/admit diagnosis, lab results, radiology results, the need for further work-up and treatment in the hospital. Response to treatment: the patient's symptoms have mildly improved after treatment. 11/02 01:53 Order name: Basic Metabolic Panel; Complete Time: 04:06 rt 11/02 01:53 Order name: CBC with Diff; Complete Time: 04:06 rt 11/02 01:53 Order name: LFT's; Complete Time: 04:06 rt 11/02 01:53 Order name: Magnesium; Complete Time: 04:06 rt 11/02 01:53 Order name: Troponin HS; Complete Time: 04:06 rt 11/02 07:13 Order name: Basic Metabolic Panel EDMS 11/02 07:13 Order name: Basic Metabolic Panel EDMS 11/02 07:13 Order name: Basic Metabolic Panel EDMS 11/02 07:13 Order name: CBC with Automated Diff EDMS 11/02 07:13 Order name: CBC with Automated Diff EDMS 11/02 07:13 Order name: CBC with Automated Diff EDMS 11/02 07:13 Order name: Troponin High Sensitivity EDMS 11/02 07:14 Order name: Troponin High Sensitivity EDMS 11/02 07:14 Order name: Troponin High Sensitivity EDMS 11/02 01:53 Order name: XRAY Chest (1 view) rt 11/02 01:53 Order name: EKG; Complete Time: 01:54 rt 11/02 01:53 Order name: Cardiac monitoring; Complete Time: 01:58 rt 11/02 01:53 Order name: EKG - Nurse/Tech; Complete Time: 01:58 rt 11/02 01:53 Order name: IV Saline Lock; Complete Time: 02:15 rt 11/02 01:53 Order name: Labs collected and sent; Complete Time: 02:00 rt 11/02 01:53 Order name: O2 Per Protocol; Complete Time: 01:58 rt 11/02 01:53 Order name: O2 Sat Monitoring; Complete Time: 01:58 rt EC:40 Rate is 87 beats/min. Rhythm is regular, Normal Sinus Rhythm with No ectopy. QRS [place] rt is Normal. NC interval is normal. QRS interval is normal. QT interval is prolonged at 539 msec. No Q waves. T waves are Peaked. No ST changes noted. Interpreted by me. Administered Medications: 02:12 Drug: Aspirin PO Chewable Tablet 324 mg PO once; 81 mg tablets x 4 Route: PO; cp4 02:47 Follow up: Response: No adverse reaction cp4 02:12 Drug: Nitroglycerin Sublingual 0.4 mg Sublingual once; every five minute if needed x3 cp4 Route: Sublingual; 02:47 Follow up: Response: No adverse reaction cp4 02:56 Drug: Nitroglycerin Sublingual 0.4 mg Sublingual once; every five minute if needed x3 cp4 Route: Sublingual; 05:42 Follow up: Response: No adverse reaction cp4 02:56 Drug: metoCLOPramide IVP 10 mg IVP once; over 1 to 2 minutes Route: IVP; Site: right cp4 hand; 05:42 Follow up: Response: No adverse reaction cp4 02:56 Drug: diphenhydrAMINE IVP 25 mg IVP once Route: IVP; Site: right hand; cp4 05:41 Follow up: Response: No adverse reaction cp4 07:26 Drug: HYDROcodone-acetaminophen PO 5 mg-325 mg 1 tabs PO once Route: PO; ld1 08:28 Follow up: Response: No adverse reaction ld1 08:59 Not Given (Duplicate Order): clonidinepatch 0.2 mg/24 hr 1 patches Transdermal once ld1 Disposition Summary: 11/02/24 06:12 Hospitalization Ordered Notes: Hospitalization Status: Observation rt Provider: Toby Neil rt Condition: Stable rt Problem: an acute exacerbation rt Symptoms: have improved rt Bed/Room Type: Standard rt Location: [facility] ER HOLD(11/02/24 09:00) kb3 Room Assignment: ERHOLD-(11/02/24 09:00) kb3 Diagnosis - Chest pain rt - Volume overload rt - ESRD rt Forms: - Medication Reconciliation Form rt - SBAR form rt - Leadership Thank You Letter rt Signatures: Dispatcher [employer] EDMS Trenton Pulliam, SENIOR PHYSICAL THERAPIST-C SENIOR PHYSICAL THERAPIST-Cla1 Mouna Diaz RN RN ld1 Tia Donald RN RN ha1 Comfort Hong RN RN kb3 Clayton Friend MD MD rt Andria Lucio cp4 Corrections: (The following items were deleted from the chart) 01:54 01:53 BASIC METABOLIC PANEL+C.LAB.BRZ ordered. EDMS EDMS 01:54 01:53 CBC+H.LAB.BRZ ordered. EDMS EDMS 01:54 01:53 HEPATIC FUNCTION+C.LAB.BRZ ordered. EDMS EDMS 01:54 01:53 MAGNESIUM+C.LAB.BRZ ordered. EDMS EDMS :54 01:53 Troponin High Sensitivity+C.LAB.BRZ ordered. EDMS EDMS 09:00 06:12 Telemetry/MedSurg (observation) rt kb3 09:00 06:12 rt kb3
[2024-11-02] MEDS ORDERED: ONDANSETRON 4 MG/2 ML VIAL IV PRN (07:10)
[2024-11-02] MEDS ORDERED: HYDROCODONE/APAP 5/325 MG TAB PO PRN (07:10)
[2024-11-02] MEDS ORDERED: HYDRALAZINE HCL 20 MG/ML VIAL IV PRN (07:10)
[2024-11-02] MEDS ORDERED: HYDROCODONE/APAP 5/325 MG TAB ONE (07:12)
[2024-11-02] MEDS: CLONIDINE 0.2 MG/PATCH TD ONE (08:30)
[2024-11-02 08:57] VITALS: BMI 22.6
[2024-11-02] MEDS: HEPARIN 5000 UNIT/ML 1 ML VIAL SQ SCH (09:00)
[2024-11-02 09:01] VITALS: BP 179/120
[2024-11-02] MEDS ORDERED: HEPARIN 5000 UNIT/ML 1 ML VIAL ONE (09:07)
--- NOTE | 2024-11-02 10:33 | P.HP ---
Certification for Inpatient Patient admitted to: Observation With expected LOS: <2 Midnights Patient will require the following post-hospital care: None Practitioner: I am a practitioner with admitting privileges, knowledge of patient current condition, hospital course, and medical plan of care. Services: Services provided to patient in accordance with Admission requirements found in Title 42 Section 412.3 of the Code of Federal Regulations Patient History Date of Service: 11/02/24 History of Present Illness: 39-year-old female with history of ESRD on HD, hypertension, hyperlipidemia, anemia of chronic disease, chronic diastolic heart failure presents emergency department with chief complaint of shortness of breath. She missed dialysis last Tuesday and overnight became quite dyspneic also was having some pain in her chest on arrival. Patient significantly hypertensive she takes a clonidine patch at home that she did not have on for the last few days. Patient was evaluated here in the emergency department her labs are significant for redemonstration of her ESRD potassium 3.6 initial high sensitive troponin normal at 36.4 chest x-ray showed suspected pulmonary edema. Patient admitted to hospital for acute hemodialysis Allergies No Known Allergies Allergy (Verified 11/19/19 21:40) Home Medications: Sevelamer Carbonate [Renvela*] 800 mg PO TIDWM #90 tab 05/12/22 Furosemide [Lasix] 80 mg PO BID 05/29/23 Hydrocodone 5/APAP 325 [[place] 5/325*] 1 tab PO Q6H PRN #10 tab 01/17/24 calcitrioL [Calcitriol] 0.5 mcg PO DAILY #30 cap 01/17/24 Butalb/Acetaminophen/Caffeine [Fioricet 50-300-40 mg Capsule] 1 cap PO Q6HR PRN 05/14/24 Clonidine Patch [Catapres-Tts 1*] 0.1 mg TD DAILY 05/14/24 NIFEdipine [Nifedipine ER] 90 mg PO DAILY #30 tab 05/16/24 Pantoprazole [Protonix Tab*] 40 mg PO BID 14 Days #28 tab 05/16/24 carvediloL [Carvedilol] 12.5 mg PO BID #60 tab 05/16/24 lisinopriL [Lisinopril] 40 mg PO DAILY #30 tab 05/16/24 Empagliflozin [Jardiance] 10 mg PO DAILY #30 tab 10/04/24 - Past Medical/Surgical History Has patient received pneumonia vaccine in the past: No Diabetic: No -: HTN -: ESRD on HD (Dr. Monge) M/W/F -: Asthma -: Anemia -: C Section -: Tubal Ligation Psychosocial/ Personal History: Patient lives at home with her 4 children. - Family History Father -: Hypertension Mother -: Heart disease - Social History Smoking Status: Never smoker Alcohol use: No CD- Drugs: No Caffeine use: No Place of Residence: Home Review of Systems 10-point ROS is otherwise unremarkable Respiratory: Shortness of Breath Cardiovascular: Chest Pain Physical Examination - Vital Signs Blood Pressure: 179/120 Pulse: 72 - Physical Exam General: Alert, In no apparent distress, Oriented x3 HEENT: Atraumatic, PERRLA Neck: Supple, 2+ carotid pulse no bruit, No LAD Respiratory: Clear to auscultation bilaterally, Normal air movement Cardiovascular: Regular rate/rhythm, Normal S1 S2 Gastrointestinal: Normal bowel sounds Musculoskeletal: No tenderness Integumentary: No rashes Neurological: Normal gait, Normal speech, Normal strength at 5/5 x4 extr, Normal affect - Studies Laboratory Data (last 24 hrs) 11/02/24 11/02/24 02:48 02:48 WBC 7.10 Hgb 10.8 L Hct 32.5 L Plt Count 224 Sodium 136 Potassium 3.6 BUN 71 H Creatinine 11.30 H Glucose 108 H Magnesium 2.4 Total Bilirubin 0.6 AST 23 ALT 19 Alkaline Phosphatase 99 Assessment and Plan - Plan Assessment: ESRD on HD MWF with pulmonary edema/overload Acute on chronic diastolic congestive heart failure Chest pain Hypertension Hyperlipidemia anemia of chronic disease Plan: ESRD on HD MWF with pulmonary edema/overload Acute on chronic diastolic congestive heart failure Chest pain Nephrology consulted/notified of need for HD Trend troponins and monitor on telemetry-first troponin negative As needed [place]aughter Hypertension Patient's home dose clonidine patch placed this morning Continue other home medications when verified Hyperlipidemia anemia of chronic disease Continue home medications DVT PPX: Heparin subcu Code status: Full Discharge Plan: Home Plan to discharge in: 24 Hours - Advance Directives Does patient have a Living Will: No Does patient have a Durable POA for Healthcare: No - Code Status/Comfort Care Code Status Assessed: Yes (Full code) Critical Care: No Time Spent Managing Pts Care (In Minutes): 61
--- NOTE | 2024-11-02 11:24 | P.CNS ---
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 She reports her period started four days ago and cites heavy bleeding, cramps, pain, weakness, and missed HD Wed and has not been able to take her BP meds due to some nausea and comes in with accelerated HTN, some dyspnea and other. Allergies No Known Allergies Allergy (Verified 11/19/19 21:40) Home Medications: Sevelamer Carbonate [Renvela*] 800 mg PO TIDWM #90 tab 05/12/22 Furosemide [Lasix] 80 mg PO BID 05/29/23 Hydrocodone 5/APAP 325 [[place] 5/325*] 1 tab PO Q6H PRN #10 tab 01/17/24 calcitrioL [Calcitriol] 0.5 mcg PO DAILY #30 cap 01/17/24 Butalb/Acetaminophen/Caffeine [Fioricet 50-300-40 mg Capsule] 1 cap PO Q6HR PRN 05/14/24 Clonidine Patch [Catapres-Tts 1*] 0.1 mg TD DAILY 05/14/24 NIFEdipine [Nifedipine ER] 90 mg PO DAILY #30 tab 05/16/24 Pantoprazole [Protonix Tab*] 40 mg PO BID 14 Days #28 tab 05/16/24 carvediloL [Carvedilol] 12.5 mg PO BID #60 tab 05/16/24 lisinopriL [Lisinopril] 40 mg PO DAILY #30 tab 05/16/24 Empagliflozin [Jardiance] 10 mg PO DAILY #30 tab 10/04/24 - Past Medical/Surgical History Diabetic: No -: HTN -: ESRD on HD (Dr. Monge) M/W/F -: Asthma -: Anemia -: C Section -: Tubal Ligation Psychosocial/ Personal History: Patient lives at home with her 4 children. - Family History Father Medical History: Hypertension Mother Medical History: Heart disease - Social History Smoking Status: Unknown if ever smoked Alcohol use: No CD- Drugs: No Caffeine use: No Place of Residence: Home Review of Systems General: Weakness Eyes: Unremarkable ENT: Unremarkable Respiratory: Shortness of Breath Cardiovascular: As per HPI Gastrointestinal: Nausea, As per HPI Genitourinary: Other (Still produces some urine on Lasix) Musculoskeletal: Unremarkable Integumentary: Unremarkable Neurological: Unremarkable Physical Examination Temp Pulse Resp BP Pulse Ox 72 179/120 H 11/02/24 10:33 11/02/24 10:33 General: Cooperative, Other (Appears uncomfortable) HEENT: Atraumatic, Normocephalic Neck: Supple Respiratory: Other (Non tachypnec, no wheezing) Cardiovascular: Other (Non tachy, mostly regulat) Gastrointestinal: Other (Mild distention, no guarding) Musculoskeletal: No contractures, No tenderness Integumentary: No rashes Neurological: Normal speech, Normal affect Laboratory Data (last 24 hrs) 11/02/24 11/02/24 02:48 02:48 WBC 7.10 Hgb 10.8 L Hct 32.5 L Plt Count 224 Sodium 136 Potassium 3.6 BUN 71 H Creatinine 11.30 H Glucose 108 H Magnesium 2.4 Total Bilirubin 0.6 AST 23 ALT 19 Alkaline Phosphatase 99 Conclusions/Impression: A/P) ESRD 2nd to hypertensive nephrosclerosis -Freq non compliance with dialysis schedule in the past, but citing factors such as dysmenorrhea/menorrhagia/pelvic pain as part of the reason. Emergent HD today to make up missed tx and for clearance and UF Hypertensive urggency on admission. Malignant HTN with CKD. LVH. Diastolic dysfunction, pulm HTN 2nd to left sided heart disease, some MR, dilated LA noted on recent TTE -Resume home anti hypertensives including ESTER, CCB, beta xander. Cont Clonidine patch. Re-establish EDW Chronic pelvic pain, dysmenorrhea -Obtain [employer] WORK[employer] consult, reports inadeq response to recent trial of Amitryptyline and NSAIDs. Avoid narcotic agents Anemia 2nd to CKD -Hb currently > 10 which is acceptable Faheem Underwood MD, ESTEVAN
[2024-11-02] MEDS ORDERED: carvediloL 12.5 MG TAB PO SCH (12:00)
[2024-11-02] MEDS ORDERED: NIFEDIPINE XL 90 MG TABLET PO SCH (12:00)
[2024-11-02 12:51] VITALS: TEMP 98.2
[2024-11-02 12:56] VITALS: O2SAT 99
--- NOTE | 2024-11-02 16:10 | P.DS ---
Admission Date: 11/02/24 Discharge Date: 11/02/24 Disposition: ROUTINE DISCHARGE Discharge Condition: GOOD Reason for Admission: Missed HD, dysmenorrhea, weakness Brief History of Present Illness: 39-year-old female with history of ESRD on HD, hypertension, hyperlipidemia, anemia of chronic disease, chronic diastolic heart failure presents emergency department with chief complaint of shortness of breath. She missed dialysis last Tuesday and overnight became quite dyspneic also was having some pain in her chest on arrival. Patient significantly hypertensive she takes a clonidine patch at home that she did not have on for the last few days. Patient was evaluated here in the emergency department her labs are significant for redemonstration of her ESRD potassium 3.6 initial high sensitive troponin normal at 36.4 chest x-ray showed suspected pulmonary edema. Patient admitted to hospital for acute hemodialysis Hospital Course: Assessment: ESRD on HD MWF with pulmonary edema/overload Acute on chronic diastolic congestive heart failure Chest pain Hypertension Hyperlipidemia anemia of chronic disease Patient was admitted to the hospital for dyspnea, pulmonary edema. She missed dialysis on Tuesday and became short of breath overnight. Her utility worker forge was notified and she underwent acute hemodialysis during her hospitalization. She is breathing well on room air and stable for discharge with outpatient follow-up with nephrology. Continue home medications as previously prescribed, follow-up with your primary care and utility worker forge in the next 1 to 2 weeks. Please make sure you are compliant with your HD schedule as well as your blood pressure medications, blood pressure was elevated during hospitalization, she was supplied with a clonidine patch which she states she has not had for the last few days. Vital Signs/Physical Exam: Temp Pulse Resp BP Pulse Ox 98.2 F 72 18 179/120 H 11/02/24 01:31 11/02/24 10:33 11/02/24 07:26 11/02/24 10:33 General: Alert, In no apparent distress, Oriented x3 HEENT: Atraumatic, PERRLA Neck: Supple, JVD not distended Respiratory: Clear to auscultation bilaterally, Normal air movement Cardiovascular: Regular rate/rhythm, Normal S1 S2 Gastrointestinal: Normal bowel sounds, No tenderness Musculoskeletal: No tenderness Integumentary: No rashes Neurological: Normal speech Laboratory Data at Discharge: WBC 7.10 thou/uL (4.3-10.9) 11/02/24 02:48 Hgb 10.8 g/dL (12.0-15.0) L 11/02/24 02:48 Hct 32.5 % (36.0-45.0) L 11/02/24 02:48 Plt Count 224 thou/uL (152-406) 11/02/24 02:48 Sodium 136 mEq/L (136-145) 11/02/24 02:48 Potassium 3.6 mEq/L (3.5-5.1) 11/02/24 02:48 BUN 71 mg/dL (7-18) H 11/02/24 02:48 Creatinine 11.30 mg/dL (0.55-1.02) H 11/02/24 02:48 Glucose 108 mg/dL (74-106) H 11/02/24 02:48 Magnesium 2.4 mg/dL (1.6-2.4) 11/02/24 02:48 Total Bilirubin 0.6 mg/dL (0.2-1.0) 11/02/24 02:48 AST 23 U/L (15-37) 11/02/24 02:48 ALT 19 U/L (13-56) 11/02/24 02:48 Alkaline Phosphatase 99 U/L (45-117) 11/02/24 02:48 Home Medications: Sevelamer Carbonate [Renvela*] 800 mg PO TIDWM #90 tab 05/12/22 Furosemide [Lasix] 80 mg PO BID 05/29/23 Hydrocodone 5/APAP 325 [[place] 5/325*] 1 tab PO Q6H PRN #10 tab 01/17/24 calcitrioL [Calcitriol] 0.5 mcg PO DAILY #30 cap 01/17/24 Butalb/Acetaminophen/Caffeine [Fioricet 50-300-40 mg Capsule] 1 cap PO Q6HR PRN 05/14/24 Clonidine Patch [Catapres-Tts 1*] 0.1 mg TD DAILY 05/14/24 NIFEdipine [Nifedipine ER] 90 mg PO DAILY #30 tab 05/16/24 Pantoprazole [Protonix Tab*] 40 mg PO BID 14 Days #28 tab 05/16/24 carvediloL [Carvedilol] 12.5 mg PO BID #60 tab 05/16/24 lisinopriL [Lisinopril] 40 mg PO DAILY #30 tab 05/16/24 Empagliflozin [Jardiance] 10 mg PO DAILY #30 tab 10/04/24 Physician Discharge Instructions: Patient was admitted to the hospital for dyspnea, pulmonary edema. She missed dialysis on Tuesday and became short of breath overnight. Her utility worker forge was notified and she underwent acute hemodialysis during her hospitalization. She is breathing well on room air and stable for discharge with outpatient follow-up with nephrology. Continue home medications as previously prescribed, follow-up with your primary care and utility worker forge in the next 1 to 2 weeks. Please make sure you are compliant with your HD schedule as well as your blood pressure medications, blood pressure was elevated during hospitalization, she was supplied with a clonidine patch which she states she has not had for the last few days. Diet: Renal Activity: Ad corby Followup: Sami Monge DO [Primary Care Provider] - 1 Week Time spent managing pt's care (in minutes): 42
[2024-11-02] MEDS ORDERED: lisinopriL 20 MG TAB PO SCH (21:00)
--- NOTE | 2024-11-06 12:33 | EKG ---
Test Date: 2024-11-02 Test Time: 01:49:02 Quantitative Researcher: YIFAN MEASUREMENT RESULTS: Intervals: Rate: 87 [place]: 158 QRSD: 76 QT: 448 QTc: 539 [place]: P: 67 [place]: 158 QRS: 76 T: 69 INTERPRETIVE STATEMENTS: Normal sinus rhythm Biatrial enlargement Septal infarct, age undetermined Prolonged QT Abnormal ECG Compared to ECG 09/30/2024 15:28:45 No significant changes Electronically Signed On 11-06-24 12:24:45 CDT by Gregg Lares
== END 2024-11-02 15:30 | disposition home or self-care (01) ==
LOC: ER 01:21 → ERHOLD 07:09
PROVIDERS: ADMIT Hospitalist; ATTEND Hospitalist
DX: N18.6 End stage renal disease (principal); E87.70 Fluid overload, unspecified; J81.0 Acute pulmonary edema; I50.32 Chronic diastolic (congestive) heart failure; R06.02 Shortness of breath; I16.0 Hypertensive urgency; I10 Essential (primary) hypertension; E78.5 Hyperlipidemia, unspecified; D63.1 Anemia in chronic kidney disease; R53.1 Weakness; R07.9 Chest pain, unspecified; N94.6 Dysmenorrhea, unspecified; R10.2 Pelvic and perineal pain; Z99.2 Dependence on renal dialysis; Z91.158 Patient's noncompliance with renal dialysis for other reason
CPT/HCPCS: 93005; 85025; 80048; 36415; 83735; 80076; 84484 ×2; 71045; 90935; 96375; 96374; 99285; J1644; J2765; J1200; G0378 ×2

== ENCOUNTER 2025-01-31 08:53 | Observation (INO) | payer OTHER ==
[2025-01-31] MEDS ORDERED: NA CHLORIDE 0.9% 500 ML ONE (09:27)
[2025-01-31] MEDS ORDERED: ONDANSETRON 4 MG/2 ML VIAL ONE ×2 (09:48→12:25)
[2025-01-31] MEDS ORDERED: NA CHLORIDE 0.9% 250 ML ONE (09:48)
[2025-01-31 09:53] LABS: Absolute Lymphocytes (CBC) 1.1 K/uL (0.7-4.9); Hematocrit 40.7 % (36.0-45.0); Hemoglobin 13.4 g/dL (12.0-15.0); MCH 29.6 pg (27.0-35.0); MCHC 32.8 g/dL (32.0-36.0); MCV 90.3 fL (80-100); MPV 7.9 fL (7.6-11.3); Nucleated RBC Absolute Count 0.0 (0-0); Nucleated Red Blood Cells % 0.1 % (0-0); RBC Red Blood Cell Count 4.50 M/uL (3.86-4.86); White Blood Count 6.40 thou/uL (4.3-10.9)
[2025-01-31 10:10] LABS: PT Prothrombin Time 12.4 SECONDS (10-13.0); Protime INR 1.1
--- NOTE | 2025-01-31 10:17 | RAD REPORT ---
Procedure: Chest Single View HISTORY: Cough COMPARISON: October 2024 FINDINGS: The lungs appear clear of acute infiltrate. No significant pleural effusion noted. The heart is mildly enlarged. IMPRESSION: No acute abnormality is displayed.
[2025-01-31 10:27] LABS: Sqamous Epithelial 20-50 /HPF (None Seen); Urine Culture Reflex Order REFLEXED; Urine Microscopic Reflex YN ORDER UMIC; Urine WBC Clump Many /HPF (None Seen); Urine Yeast (Budding) Many /HPF (None Seen)
[2025-01-31 10:28] LABS: Albumin 3.9 g/dL (3.4-5.0); Albumin/Globulin Ratio 0.8 (1.1-1.8); Alkaline Phosphatase 84 U/L (45-117); Anion Gap 17.0 mEq/L (5.0-15.0); BUN Blood Urea Nitrogen 35 mg/dL (7-18); Bilirubin Indirect, Calculated 1.5 mg/dL (0.2-0.8); Globulin 4.6 g/dL (2.3-3.5); Glucose Level 109 mg/dL (74-106); Magnesium 2.3 mg/dL (1.6-2.4); NT PRO-BNP 6400 pg/mL (<125); Potassium 6.0 mEq/L (3.5-5.1); Troponin High Sensitivity 21.3 pg/mL (<58.9)
[2025-01-31 10:30] LABS: ALT/SGPT < 14 U/L (13-56); AST/SGOT < 10 U/L (15-37)
[2025-01-31] MEDS ORDERED: ACETAMINOPHEN 325 MG TABLET ONE (10:44)
[2025-01-31] MEDS ORDERED: CEFTRIAXONE 1000 MG/VIAL ONE (11:04)
[2025-01-31] MEDS ORDERED: ALBUTEROL 2.5 MG/3 ML NEB SOL ONE (11:04)
[2025-01-31] MEDS ORDERED: SOD POLYSTYREN SUL 15 GM/60 ML UCUP ONE (11:04)
[2025-01-31] MEDS ORDERED: IPRATROPIUM BROM 0.5MG/2.5ML ONE (11:04)
[2025-01-31] MEDS ORDERED: D50W 25 GM/50 ML SYRINGE IV ONE ×3 (11:05→12:33)
[2025-01-31] MEDS ORDERED: CALCIUM GLUCONATE 1 GM IVPB 1 GM/50 ML BAG IV ONE (11:05)
[2025-01-31] MEDS ORDERED: NA CHLORIDE 0.9% 50 ML ONE (11:05)
--- NOTE | 2025-01-31 11:05 | ER ---
Nurse's Notes [facility] Name: Nely Quinones Age: 39 yrs Sex: Female : 1985 Arrival Date: 01/31/2025 Time: 08:53 Bed 6 Private MD: Diagnosis: Weakness;Chronic kidney disease, unspecified;Dependence on renal dialysis;Hyperkalemia-6.0;Abnormal electrocardiogram [ECG] [EKG]-PEAKED Twaves;UTI/ Urinary tract infection, site not specified Presentation: 01/31 09:19 Chief complaint: Patient states: fatigue and not feeling well since yesterday. Last HD ss session was yesterday. Coronavirus screen: Client denies travel out of the [place] in the last 14 days. Ebola Screen: Patient denies exposure to infectious person. Patient denies travel to an Ebola-affected area in the 21 days before illness onset. Initial Sepsis Screen: Does the patient meet any 2 criteria? No. Patient's initial sepsis screen is negative. Does the patient have a suspected source of infection? No. Patient's initial sepsis screen is negative. Risk Assessment: Do you want to hurt yourself or someone else? Patient reports no desire to harm self or others. Onset of symptoms was January 30, 2025. 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 - Infectious Disease History:: Denies. - Family history:: not pertinent. - Social history:: Smoking status: Patient denies any tobacco usage or history of. Screenin:33 [facility] ED Fall Risk Assessment (Adult) History of falling in the last 3 months, db including since admission No falls in past 3 months (0 pts) Confusion or Disorientation No (0 pts) Intoxicated or Sedated No (0 pts) Impaired Gait No (0 pts) Mobility Assist Device Used No (0 pt) Altered Elimination No (0 pt) Score/Fall Risk Level 0 - 2 = Low Risk Oriented to surroundings, Maintained a safe environment. Abuse screen: Denies threats or abuse. Denies injuries from another. Nutritional screening: No deficits noted. Tuberculosis screening: No symptoms or risk factors identified. Assessment: 09:56 Reassessment: Patient appears in no apparent distress at this time. Patient and/or db family updated on plan of care and expected duration. Pain level reassessed. Patient is alert, oriented x 3, equal unlabored respirations, skin warm/dry/pink. General: Appears in no apparent distress. comfortable, Behavior is calm, cooperative. Pain: Denies pain. Neuro: Level of Consciousness is awake, alert, obeys commands, Oriented to person, place, time, situation. 11:32 Reassessment: Patient appears in no apparent distress at this time. Patient and/or db family updated on plan of care and expected duration. Pain level reassessed. Patient is alert, oriented x 3, equal unlabored respirations, skin warm/dry/pink. 12:30 Reassessment: PATIENT BECAME SLOW TO RESPOND THEN DIAPHORETIC. RECHECKED GLUCOSE IT WAS db 35. PHYSICIAN NOTIFIED. NEW ORDER FOR D50 RECEIVED. 12:49 Reassessment: PT NOW EATING AND FEELING BETTER. db 13:18 Reassessment: REPORT FAXED FOR RM 222. bp 14:00 Reassessment: IV NOT WORKING. DELAY IN TRANSFERRING PT TO UNIT DUE TO OBTAINING ANOTHER db IV ACCESS. 14:05 Reassessment: Patient appears in no apparent distress at this time. Patient and/or db family updated on plan of care and expected duration. Pain level reassessed. Patient is alert, oriented x 3, equal unlabored respirations, skin warm/dry/pink. Respiratory: Airway is patent Respiratory effort is even, unlabored, Respiratory pattern is regular, symmetrical. 14:12 Reassessment: Patient appears in no apparent distress at this time. Patient and/or db family updated on plan of care and expected duration. Pain level reassessed. Patient is alert, oriented x 3, equal unlabored respirations, skin warm/dry/pink. Vital Signs: 09:19 BP 132 / 87; Pulse 71; Resp 16; Temp 98.6(O); Pulse Ox 100% on R/A; Weight 65.77 kg; ss Height 5 ft. 2 in. ; Pain 0/10; 10:30 BP 125 / 90; Pulse 65; Resp 18; Pulse Ox 100% on R/A; db 11:30 BP 145 / 97; Pulse 89; Resp 16; Pulse Ox 100% on R/A; db 12:30 BP 164 / 89; Pulse 80; Resp 16; Pulse Ox 100% on R/A; db 13:18 BP 141 / 93; Pulse 81; Resp 16; Pulse Ox 100% ; bp 09:19 Body Mass Index 26.52 (65.77 kg, 157.48 cm) ss 09:19 Pain Scale: Adult ss ED Course: 08:55 Patient arrived in ED. mr 08:56 Oscar Shultz MD is Attending Physician. toño 09:20 Michele Yeager, CHELA is Primary Nurse. bp 09:20 Triage completed. ss 09:20 Arm band placed on right wrist. ss 09:45 Initial lab(s) drawn, by me, sent to lab. EKG done. Inserted saline lock: 20 gauge in db right antecubital area, using aseptic technique. Blood collected. Flushed with 10 mL NS. 09:55 XRAY Chest (1 view) Sent. db 09:57 XRAY Chest (1 view) In Process Unspecified. EDMS 10:54 [facility] Cornejo is Hospitalizing Provider. toño 11:34 Patient has correct armband on for positive identification. Bed in low position. Call db light in reach. Side rails up X 1. Pulse ox on. NIBP on. 14:03 Inserted saline lock: 24 gauge in right hand, using aseptic technique. Blood collected. db Flushed with 10 mL NS. 14:12 Provided Education on: ADMISSION. db 14:12 No provider procedures requiring assistance completed. Patient admitted, IV remains in db place. Administered Medications: 09:30 CANCELLED (Duplicate Order): ns 0.9% 500 ml 500 ml IV at 1 bolus once; to be given as a toño bolus over 30 minutes 09:50 Drug: Ondansetron IVP 4 mg IVP once; over 2 minutes Route: IVP; Site: right antecubital;db 14:14 Follow up: Response: No adverse reaction bp 09:50 Drug: NS 0.9% IV 250 ml IV at bolus once; to be given as a bolus over 30 minutes Route: db IV; Rate: bolus; Site: right antecubital; 14:14 Follow up: IV Status: Completed infusion bp 10:52 Drug: NS 0.9% IV 500 ml 500 ml IV at 100 ml/hr once Volume: 500 ml; Route: IV; Rate: db 100 ml/hr; Site: right antecubital; 14:14 Follow up: IV Status: Completed infusion bp 14:28 Follow up: Response: No adverse reaction; IV Status: Completed infusion db 10:53 Drug: Acetaminophen PO 650 mg PO once Route: PO; db 14:13 Follow up: Response: No adverse reaction bp 11:00 Drug: Rocephin IV 1 grams IV at per protocol once; Given slow IV push per pharmacy db instructions Route: IV; Rate: per protocol; Site: right antecubital; 13:01 Follow up: Response: No adverse reaction; IV Status: Completed infusion; IV Intake: 50mldb 11:00 Drug: Calcium Gluconate IVPB 1 grams IVPB once over 10 mins; (mix in NS 100 mL) Route: db IVPB; Infused Over: 10 mins; Site: right antecubital; 12:58 Follow up: Response: No adverse reaction; IV Status: Completed infusion; IV Intake: 50mldb 11:15 Drug: Kayexalate PO 45 grams PO once Route: PO; db 14:13 Follow up: Response: No adverse reaction bp 11:20 Drug: D50W IVP 50 ml IVP once; (1 amp) Route: IVP; Site: right antecubital; db 14:14 Follow up: Response: No adverse reaction bp 11:20 Drug: Albuterol Inhalation 7.5 mg Inhalation once Route: Inhalation; db 11:25 Drug: Ipratropium Inhalation Aerosol 0.5 mg Inhalation once Route: Inhalation; db 11:29 Drug: Insulin Regular Human IVP 10 units IVP once {Co-Signature: ss (Katarzyna Roberson db RN).} Route: IVP; Site: right antecubital; 14:13 Follow up: Response: No adverse reaction bp 12:35 Drug: Ondansetron IVP 4 mg IVP once; over 2 minutes Route: IVP; Site: right antecubital;db 13:02 Follow up: Response: No adverse reaction db 12:35 Drug: D50W IVP 50 ml IVP once; (1 amp) Route: IVP; Site: right antecubital; db 13:01 Follow up: Response: No adverse reaction; Blood sugar is elevated db 14:12 Follow up: Response: No adverse reaction bp 12:50 Drug: fentaNYL (PF) IVP 50 mcg IVP once Route: IVP; Site: right antecubital; db 14:12 Follow up: Response: No adverse reaction bp Medication: 11:33 VIS not applicable for this client. db Point of Care Testing: Blood Glucose: 12:30 Blood Glucose: 35 mg/dL; db 13:53 Blood Glucose: 107 mg/dL; db 12:30 PHYSICIAN NOTIFIED SEE [facility] db Ranges: Intake: 12:58 IV: 50ml; Total: 50ml. db 13:01 IV: 50ml; Total: 100ml. db Outcome: 11:05 Decision to Hospitalize by Provider. [facility] 14:12 Admitted to Med/surg db 14:12 Condition: stable 14:12 Instructed on the need for admit, 14:14 Patient left the ED. ss Signatures: Dispatcher [employer] EDMS Oscar Shultz MD MD cha Rivera Nely, [facility] mr Katarzyna Roberson, CHELA RN Michele Yeager, CHELA RN Neha Nathan, CHELA RN db Katarzyna Roberson RN
--- NOTE | 2025-01-31 11:05 | EDPHYS ---
Physician Documentation [facility] Name: Nely Quinones Age: 39 yrs Sex: Female : 1985 Arrival Date: 01/31/2025 Time: 08:53 Bed 6 Private MD: AVERY Physician Oscar Shultz HPI: 01/31 09:31 This 39 yrs old Black Female presents to ER via Ambulatory with complaints of Weakness, toño Leg weakness, Anemia. 09:31 The patient presents to the emergency department with weakness of the entire body, toño generalized weakness, that is moderate. Onset: The symptoms/episode began/occurred 2 day(s) ago. Context: occurred at an unknown location. Associated signs and symptoms: The patient has no apparent associated signs or symptoms. Severity of symptoms: At their worst the symptoms were moderate in the emergency department the symptoms are unchanged. Patient's baseline: Neuro: alert and fully oriented. Current symptoms: Currently, the patient is not experiencing any symptoms. The patient has experienced similar episodes in the past, several times. 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 - Infectious Disease History:: Denies. - Family history:: not pertinent. - Social history:: Smoking status: Patient denies any tobacco usage or history of. ROS: 09:31 Constitutional: Negative for fever, chills, and weight loss, Eyes: Negative for injury, toño pain, redness, and discharge, ENT: Negative for injury, pain, and discharge, Neck: Negative for injury, pain, and swelling, Cardiovascular: Negative for chest pain, palpitations, and edema, Respiratory: Negative for shortness of breath, cough, wheezing, and pleuritic chest pain, Back: Negative for injury and pain, : Negative for injury, bleeding, discharge, and swelling, MS/Extremity: Negative for injury and deformity, Skin: Negative for injury, rash, and discoloration, Psych: Negative for depression, anxiety, suicide ideation, homicidal ideation, and hallucinations, Allergy/Immunology: Negative for hives, rash, and allergies, Endocrine: Negative for neck swelling, polydipsia, polyuria, polyphagia, and marked weight changes, Hematologic/Lymphatic: Negative for swollen nodes, abnormal bleeding, and unusual bruising, 09:31 Abdomen/GI: Positive for nausea, vomiting, Exam: :31 Constitutional: This is a well developed, well nourished patient who is awake, alert, toño and in no acute distress. Head/Face: Normocephalic, atraumatic. Eyes: Pupils equal round and reactive to light, extra-ocular motions intact. Lids and lashes normal. Conjunctiva and sclera are non-icteric and not injected. Cornea within normal limits. Periorbital areas with no swelling, redness, or edema. ENT: Nares patent. No nasal discharge, no septal abnormalities noted. Tympanic membranes are normal and external auditory canals are clear. Oropharynx with no redness, swelling, or masses, exudates, or evidence of obstruction, uvula midline. Mucous membranes moist. Neck: Trachea midline, no thyromegaly or masses palpated, and no cervical lymphadenopathy. Supple, full range of motion without nuchal rigidity, or vertebral point tenderness. No Meningismus. Chest/axilla: Normal chest wall appearance and motion. Nontender with no deformity. No lesions are appreciated. Cardiovascular: Regular rate and rhythm with a normal S1 and S2. No gallops, murmurs, or rubs. Normal PMI, no JVD. No pulse deficits. Respiratory: Lungs have equal breath sounds bilaterally, clear to auscultation and percussion. No rales, rhonchi or wheezes noted. No increased work of breathing, no retractions or nasal flaring. Back: No spinal tenderness. No costovertebral tenderness. Full range of motion. Skin: Warm, dry with normal turgor. Normal color with no rashes, no lesions, and no evidence of cellulitis. MS/ Extremity: Pulses equal, no cyanosis. Neurovascular intact. Full, normal range of motion., bilateral aka Neuro: Awake and alert, GCS 15, oriented to person, place, time, and situation. Cranial nerves II-XII grossly intact. Motor strength 5/5 in all extremities. Sensory grossly intact. Cerebellar exam normal. Normal gait. Psych: Awake, alert, with orientation to person, place and time. Behavior, mood, and affect are within normal limits. 09:31 ECG was reviewed by the Attending Physician. 09:31 Abdomen/GI: Bowel sounds: normal, Palpation: abdomen is soft and non-tender, Liver: no appreciated palpable abnormalities, Hernia: not appreciated, 09:31 Musculoskeletal/extremity: Extremities: all appear grossly normal, with no appreciated pain with palpation, ROM: no acute changes, Circulation is intact in all extremities. Sensation intact. Compartment Syndrome exam of affected extremity: is normal. Weight bearing: able to fully bear weight, without difficulty, DVT Exam: No signs of deep vein thrombosis. no pain, no swelling, no tenderness, negative Homans' sign noted on exam, no appreciated bluish discoloration, no erythema, no increased warmth, 09:43 ECG was reviewed by the Attending Physician. [facility] Vital Signs: 09:19 BP 132 / 87; Pulse 71; Resp 16; Temp 98.6(O); Pulse Ox 100% on R/A; Weight 65.77 kg; ss Height 5 ft. 2 in. ; Pain 0/10; 10:30 BP 125 / 90; Pulse 65; Resp 18; Pulse Ox 100% on R/A; db 11:30 BP 145 / 97; Pulse 89; Resp 16; Pulse Ox 100% on R/A; db 12:30 BP 164 / 89; Pulse 80; Resp 16; Pulse Ox 100% on R/A; db 13:18 BP 141 / 93; Pulse 81; Resp 16; Pulse Ox 100% ; bp 09:19 Body Mass Index 26.52 (65.77 kg, 157.48 cm) 09:19 Pain Scale: Adult ss MDM: 08:56 Medical Screening Exam initiated [facility] 09:35 Data reviewed: vital signs, nurses notes, lab test result(s), EKG, radiologic studies, [facility] CT scan. Consideration of Admission/Observation Escalation of care including admission/observation considered. I considered the following discharge prescriptions or medication management in the emergency department Medications were administered in the Emergency Department. See MAR. Independent interpretation of the following test(s) in the Emergency Department EKG: See my EKG interpretation above. Test considered but Not performed: Ultrasound NO ABD USG. CT: NO CT HEAD. Care significantly affected by the following chronic conditions: Diabetes, Hypertension, AV FISTULA. Counseling: I had a detailed discussion with the patient and/or guardian regarding the historical points, exam findings, and any diagnostic results supporting the discharge/admit diagnosis, lab results, radiology results. 01/31 08:57 Order name: Basic Metabolic Panel; Complete Time: 10:44 [facility] 01/31 08:57 Order name: CBC with Diff; Complete Time: 10:07 [facility] 01/31 08:57 Order name: LFT's; Complete Time: 10:44 [facility] 01/31 08:57 Order name: Magnesium; Complete Time: 10:44 [facility] 01/31 08:57 Order name: NT PRO-BNP; Complete Time: 10:44 [facility] 01/31 08:57 Order name: PT-INR; Complete Time: 10:27 [facility] 01/31 08:57 Order name: Troponin HS; Complete Time: 10:44 [facility] 01/31 08:57 Order name: Test, Serum; Complete Time: 10:27 [facility] 01/31 08:57 Order name: UA Rfx Rick Cult if indicated; Complete Time: 10:44 [facility] 01/31 08:57 Order name: Type And Screen; Complete Time: 10:44 [facility] 01/31 10:33 Order name: Urine Culture EDMS 01/31 12:33 Order name: BMP [facility] 01/31 12:39 Order name: Basic Metabolic Panel EDMS 01/31 12:39 Order name: Basic Metabolic Panel EDMS 01/31 12:39 Order name: Basic Metabolic Panel EDMS 01/31 12:39 Order name: Basic Metabolic Panel EDMS 01/31 12:39 Order name: Basic Metabolic Panel EDMS 01/31 12:39 Order name: Basic Metabolic Panel EDMS 01/31 12:39 Order name: Basic Metabolic Panel EDMS 01/31 12:39 Order name: Basic Metabolic Panel EDMS 01/31 12:39 Order name: Magnesium EDMS 01/31 12:39 Order name: Magnesium EDMS 01/31 12:39 Order name: Magnesium EDMS 01/31 12:39 Order name: Magnesium EDMS 01/31 12:39 Order name: Magnesium EDMS 01/31 12:39 Order name: Magnesium EDMS 01/31 12:39 Order name: Magnesium EDMS 01/31 12:39 Order name: Magnesium EDMS 01/31 12:39 Order name: Phosphorus EDMS 01/31 12:39 Order name: Phosphorus EDMS 01/31 12:39 Order name: Phosphorus EDMS 01/31 12:39 Order name: Phosphorus EDMS 01/31 12:39 Order name: Phosphorus EDMS 01/31 12:39 Order name: Phosphorus EDMS 01/31 12:39 Order name: Phosphorus EDMS 01/31 12:39 Order name: Phosphorus EDMS 01/31 12:39 Order name: CBC with Automated Diff EDMS 01/31 12:39 Order name: CBC with Automated Diff EDMS 01/31 12:39 Order name: CBC with Automated Diff EDMS 01/31 12:39 Order name: CBC with Automated Diff EDMS 01/31 12:39 Order name: CBC with Automated Diff EDMS 01/31 12:39 Order name: CBC with Automated Diff EDMS 01/31 12:39 Order name: CBC with Automated Diff EDMS 01/31 12:39 Order name: CBC with Automated Diff EDMS 01/31 12:55 Order name: Glucose, Ancillary Testing EDMS 01/31 14:05 Order name: Glucose, Ancillary Testing EDMS 01/31 08:57 Order name: XRAY Chest (1 view); Complete Time: 10:27 toño 01/31 08:57 Order name: EKG; Complete Time: 08:58 toño 01/31 12:39 Order name: CONS Physician Consult EDMS 01/31 08:57 Order name: Cardiac monitoring; Complete Time: 09:55 toño 01/31 08:57 Order name: EKG - Nurse/Tech; Complete Time: 09:47 toño 01/31 08:57 Order name: IV Saline Lock; Complete Time: 09:55 toño 01/31 08:57 Order name: Labs collected and sent; Complete Time: 09:55 toño 01/31 08:57 Order name: O2 Per Protocol; Complete Time: 09:55 toño 01/31 08:57 Order name: O2 Sat Monitoring; Complete Time: 09:55 [facility] EC:43 Rate is 72 beats/min. Rhythm is regular. QRS Russell is Normal. TN interval is normal. QRS toño interval is normal. QT interval is prolonged at 490 msec. No Q waves. T waves are Normal. No ST changes noted. Clinical impression: NSR w/ Non-specific ST/T Changes and No evidence of ischemia. Interpreted by me. Reviewed by me. Administered Medications: 09:30 CANCELLED (Duplicate Order): ns 0.9% 500 ml 500 ml IV at 1 bolus once; to be given as a toño bolus over 30 minutes 09:50 Drug: Ondansetron IVP 4 mg IVP once; over 2 minutes Route: IVP; Site: right antecubital;db 14:14 Follow up: Response: No adverse reaction bp 09:50 Drug: NS 0.9% IV 250 ml IV at bolus once; to be given as a bolus over 30 minutes Route: db IV; Rate: bolus; Site: right antecubital; 14:14 Follow up: IV Status: Completed infusion bp 10:52 Drug: NS 0.9% IV 500 ml 500 ml IV at 100 ml/hr once Volume: 500 ml; Route: IV; Rate: db 100 ml/hr; Site: right antecubital; 14:14 Follow up: IV Status: Completed infusion bp 14:28 Follow up: Response: No adverse reaction; IV Status: Completed infusion db 10:53 Drug: Acetaminophen PO 650 mg PO once Route: PO; db 14:13 Follow up: Response: No adverse reaction bp 11:00 Drug: Rocephin IV 1 grams IV at per protocol once; Given slow IV push per pharmacy db instructions Route: IV; Rate: per protocol; Site: right antecubital; 13:01 Follow up: Response: No adverse reaction; IV Status: Completed infusion; IV Intake: 50mldb 11:00 Drug: Calcium Gluconate IVPB 1 grams IVPB once over 10 mins; (mix in NS 100 mL) Route: db IVPB; Infused Over: 10 mins; Site: right antecubital; 12:58 Follow up: Response: No adverse reaction; IV Status: Completed infusion; IV Intake: 50mldb 11:15 Drug: Kayexalate PO 45 grams PO once Route: PO; db 14:13 Follow up: Response: No adverse reaction bp 11:20 Drug: D50W IVP 50 ml IVP once; (1 amp) Route: IVP; Site: right antecubital; db 14:14 Follow up: Response: No adverse reaction bp 11:20 Drug: Albuterol Inhalation 7.5 mg Inhalation once Route: Inhalation; db 11:25 Drug: Ipratropium Inhalation Aerosol 0.5 mg Inhalation once Route: Inhalation; db 11:29 Drug: Insulin Regular Human IVP 10 units IVP once {Co-Signature: ss (Katarzyna Roberson db RN).} Route: IVP; Site: right antecubital; 14:13 Follow up: Response: No adverse reaction bp 12:35 Drug: Ondansetron IVP 4 mg IVP once; over 2 minutes Route: IVP; Site: right antecubital;db 13:02 Follow up: Response: No adverse reaction db 12:35 Drug: D50W IVP 50 ml IVP once; (1 amp) Route: IVP; Site: right antecubital; db 13:01 Follow up: Response: No adverse reaction; Blood sugar is elevated db 14:12 Follow up: Response: No adverse reaction bp 12:50 Drug: fentaNYL (PF) IVP 50 mcg IVP once Route: IVP; Site: right antecubital; db 14:12 Follow up: Response: No adverse reaction bp Point of Care Testing: Blood Glucose: 12:30 Blood Glucose: 35 mg/dL; db 13:53 Blood Glucose: 107 mg/dL; db 12:30 PHYSICIAN NOTIFIED SEE MAR db Ranges: Critical Glucose Levels:Adult <50 mg/dl or >400 mg/dl <40 mg/dl or >180 mg/dl Disposition Summary: 01/31/25 11:05 Hospitalization Ordered Notes: Hospitalization Status: Inpatient Admission toño Provider: Duke Cornejo cha Location: Telemetry/MedSurg (Inpatient) toño Condition: Fair toño Problem: new toño Symptoms: are unchanged toño Bed/Room Type: Standard [facility] Room Assignment: 222(01/31/25 12:55) bc6 Diagnosis - Weakness toño - Chronic kidney disease, unspecified toño - Dependence on renal dialysis toño - Hyperkalemia - 6.0 toño - Abnormal electrocardiogram [ECG] [EKG] - PEAKED Twaves toño - UTI/ Urinary tract infection, site not specified toño Forms: - Medication Reconciliation Form toño - SBAR form toño - Leadership Thank You Letter toño Signatures: Dispatcher [employer] Oscar Sparks MD MD cha Blanchard, Shelby, RN RN ss Neha Aleman RN RN db Jeanna Delgado [facility] Michele Yeager RN bp Katarzyna Roberson RN ss Corrections: (The following items were deleted from the chart) 09:30 08:57 NS 0.9% IV 500 ml 500 ml IV at 1 bolus once; to be given as a bolus over 30 toño minutes ordered. [facility] 12:55 11:05 toño bc6
[2025-01-31] MEDS ORDERED: INSULIN REGULAR (HUMAN) 100 UNIT/ML ONE (11:06)
[2025-01-31] MEDS ORDERED: FENTANYL CITR 100 MCG/2 ML ONE (12:25)
[2025-01-31] MEDS ORDERED: ONDANSETRON 4 MG/2 ML VIAL IV PRN (12:34)
--- NOTE | 2025-01-31 12:48 | P.HP ---
Certification for Inpatient Patient admitted to: Inpatient With expected LOS: >2 Midnights Patient will require the following post-hospital care: None Practitioner: I am a practitioner with admitting privileges, knowledge of patient current condition, hospital course, and medical plan of care. Services: Services provided to patient in accordance with Admission requirements found in Title 42 Section 412.3 of the Code of Federal Regulations Patient History Date of Service: 01/31/25 Reason for admission: Hyperkalemia, ESRD History of Present Illness: Nely Quinones is a 39 year old female with pmhx ESRD on HD MWF and hypertension who presented to the ED with generalized weakness. She reports having dialysis yesterday and has not felt well since. Evaluation in the ED showing potassium 6.0, shifted with insulin and kayexalate. Became hypoglycemic and was given D50. Dr. Monge was consulted and plans for dialysis today. Laboratory evaluation significant for sodium 135, potassium 6.0, anion gap 17, BUN/creatinine 35/8.04, GFR 6, T. bili 1.7, indirect bili 1.5, BNP 6400, negative. Chest x-ray report "The lungs appear clear of acute infiltrate. No significant pleural effusion noted. The heart is mildly enlarged. IMPRESSION: No acute abnormality is displayed." Nely be admitted to hospitalist service for further treatment of hyperkalemia and general weakness, Dr. Monge consulted. Allergies No Known Allergies Allergy (Verified 11/19/19 21:40) Home Medications: Sevelamer Carbonate [Renvela*] 800 mg PO TIDWM #90 tab 05/12/22 Furosemide [Lasix] 80 mg PO BID 05/29/23 Hydrocodone 5/APAP 325 [[place] 5/325*] 1 tab PO Q6H PRN #10 tab 01/17/24 Butalb/Acetaminophen/Caffeine [Fioricet 50-300-40 mg Capsule] 1 cap PO Q6HR PRN 05/14/24 Clonidine Patch [Catapres-Tts 1*] 0.1 mg TD DAILY 05/14/24 NIFEdipine [Nifedipine ER] 90 mg PO DAILY #30 tab 05/16/24 carvediloL [Carvedilol] 12.5 mg PO BID #60 tab 05/16/24 lisinopriL [Lisinopril] 40 mg PO DAILY #30 tab 05/16/24 Ondansetron [Zofran] 4 mg PO Q6H PRN #30 tab 11/06/24 - Past Medical/Surgical History Diabetic: No -: HTN -: ESRD on HD (Dr. Monge) M/W/F -: Asthma -: Anemia -: C Section -: Tubal Ligation Psychosocial/ Personal History: Patient lives at home with her 4 children. - Family History Father -: Hypertension Mother -: Heart disease - Social History Smoking Status: Never smoker Alcohol use: No CD- Drugs: No Caffeine use: No Review of Systems Other: Per HPI Physical Examination - Studies Laboratory Data (last 24 hrs) 01/31/25 01/31/25 01/31/25 09:44 09:44 09:44 WBC 6.40 Hgb 13.4 Hct 40.7 Plt Count 290 PT 12.4 INR 1.10 Sodium 135 L Potassium 6.0 H BUN 35 H Creatinine 8.04 H Glucose 109 H Magnesium 2.3 Total Bilirubin 1.7 H AST < 10 L ALT < 14 Alkaline Phosphatase 84 Assessment and Plan - Plan Assessment and Plan ESRD HD MWF Hyperkalemia -Dr. Monge consulted and plans for dialysis today -continuous telemetry -K 6.0, repeat BMP in ED pending -continue to monitor Hypoglycemia -Insulin given in the ED to shift potassium -POC glucose 35 -D50 given in the ED Elevated liver enzyme - T. bili 1.7, indirect bili 1.5 - Will continue to monitor HTN Asthma Anemia -home medications continued as appropriate -Monitor H/H, stable on admission DVT PPx heparin Full code LOS 2 days Discharge Plan: Home Plan to discharge in: 48 Hours - Advance Directives Does patient have a Living Will: No Does patient have a Durable POA for Healthcare: No Time Spent Managing Pts Care (In Minutes): 65
[2025-01-31 14:36] VITALS: BMI 26.5
[2025-01-31 14:40] LABS: Anion Gap 15.0 mEq/L (5.0-15.0); BUN Blood Urea Nitrogen 34.0 mg/dL (7-18); Glucose Level 106.0 mg/dL (74-106); Potassium 4.0 mEq/L (3.5-5.1)
[2025-01-31] MEDS ORDERED: ONDANSETRON 4 MG (ODT) TAB PO PRN (15:43)
[2025-01-31] MEDS ORDERED: CAFFEINE PO PRN (15:43)
[2025-01-31] MEDS ORDERED: ACETAMINOPHEN PO PRN (15:43)
[2025-01-31] MEDS ORDERED: [UNRECOGNIZED DRUG - OTHER] PO PRN (15:43)
[2025-01-31] MEDS ORDERED: BUTALB PO PRN (15:43)
[2025-01-31] MEDS ORDERED: ACETAMIN/CAFFEINE/BUTALB TAB PO PRN (16:06)
[2025-01-31] MEDS: HYDROCODONE/APAP 5/325 MG TAB PO PRN (16:19)
[2025-01-31] MEDS: HEPARIN 5000 UNIT/ML 1 ML VIAL SQ SCH (17:00)
[2025-01-31] MEDS: CLONIDINE 0.1 MG/PATCH TD SCH (17:00)
[2025-01-31 17:14] LABS: HBsAG Nonreactive Report Report; Hepatitis B surface AG Interp. Nonreactive (Nonreactive)
[2025-01-31] MEDS: SEVELAMER CARBONATE 800 MG TABLET PO SCH (18:16)
[2025-01-31 20:58] VITALS: BP 160/96; TEMP 98.3
[2025-01-31] MEDS ORDERED: HOME MED 1 EA UNK (Furosemide [Lasix] 80 MG Tablet) PO SCH (21:00)
[2025-01-31] MEDS ORDERED: FUROSEMIDE 40 MG TABLET PO SCH (21:00)
[2025-02-01] MEDS ORDERED: NIFEDIPINE XL 90 MG TABLET PO SCH (09:00)
[2025-02-01] MEDS ORDERED: HOME MED 1 EA UNK (Lisinopril [Lisinopril] 40 MG Tablet) PO SCH (09:00)
== END 2025-01-31 21:00 | disposition home or self-care (01) ==
LOC: ER 08:53 → ERHOLD 12:34 → INTOOBSV 12:34 → 2ND 13:49
PROVIDERS: ADMIT Hospitalist; ATTEND Hospitalist
DX: I12.0 Hypertensive chronic kidney disease with stage 5 chronic kidney disease or end stage renal disease (principal); N18.6 End stage renal disease; E87.5 Hyperkalemia; E16.2 Hypoglycemia, unspecified; I10 Essential (primary) hypertension; J45.909 Unspecified asthma, uncomplicated; D64.9 Anemia, unspecified; R53.1 Weakness; N39.0 Urinary tract infection, site not specified; R94.31 Abnormal electrocardiogram [ECG] [EKG]; R74.01 Elevation of levels of liver transaminase levels; Z99.2 Dependence on renal dialysis
CPT/HCPCS: 93005; 87088; 85025; 81001; 87086; 80048 ×2; 36415; 86900; 83735; 86850; 84703; 85610; 86901; 82947 ×3; 80076; 84484; 83880; 87340; 71045; 90935; J0612; J7613; J7644; J3010; J2405 ×2; J1815; J7050; J7040; J0696; G0378; J1644

== ENCOUNTER 2025-02-03 03:53 | Observation (INO) | payer OTHER ==
[2025-02-03] MEDS ORDERED: IPRATROPIUM BROM 0.5MG/2.5ML ONE (04:32)
[2025-02-03] MEDS ORDERED: ONDANSETRON 4 MG/2 ML VIAL ONE (04:33)
[2025-02-03] MEDS ORDERED: ASPIRIN 81 MG CHEWABLE TABLET ONE (04:33)
[2025-02-03] MEDS ORDERED: LEVALBUTEROL 1.25 MG/3 ML NEB ONE (04:33)
[2025-02-03] MEDS ORDERED: MORPHINE 2 MG/ML SYR ONE (04:33)
[2025-02-03 05:00] LABS: Absolute Lymphocytes (CBC) 0.9 K/uL (0.7-4.9); Hematocrit 35.6 % (36.0-45.0); Hemoglobin 11.7 g/dL (12.0-15.0); MCH 29.8 pg (27.0-35.0); MCHC 33.0 g/dL (32.0-36.0); MCV 90.3 fL (80-100); MPV 8.1 fL (7.6-11.3); Nucleated RBC Absolute Count 0.0 (0-0); Nucleated Red Blood Cells % 0.1 % (0-0); RBC Red Blood Cell Count 3.94 M/uL (3.86-4.86); White Blood Count 5.20 thou/uL (4.3-10.9)
[2025-02-03 05:13] LABS: PT Prothrombin Time 13.1 SECONDS (10-13.0); Protime INR 1.16
--- NOTE | 2025-02-03 05:15 | RAD REPORT ---
INDICATION: Cough;Dyspnea COMPARISON: No existing relevant imaging studies are available FINDINGS: Single frontal view of the chest was obtained. SUPPORT DEVICES: None HEART/MEDIASTINUM: Cardiomediastinal contours are normal. LUNGS/PLEURA: Lungs are clear. No pleural effusion or pneumothorax. OTHER: Remote deformity of the lateral right clavicle. IMPRESSION: No acute findings. Electronically signed by: Jqauan Blanco DO 02/03/2025 04:56 AM CDT RP NR Due to temporary technical issues with the PACS/[employer] reporting system, reports are being radha d by the in-house radiologist without review as a courtesy to ensure prompt reporting the interpreting radiologist is fully responsible for the content of the report. Transcribed Date/Time: 02/03/2025 5:15 AM
[2025-02-03 05:21] LABS: ALT/SGPT 21 U/L (13-56); AST/SGOT 17 U/L (15-37); Albumin 3.7 g/dL (3.4-5.0); Albumin/Globulin Ratio 0.9 (1.1-1.8); Alkaline Phosphatase 81 U/L (45-117); Anion Gap 16.3 mEq/L (5.0-15.0); BUN Blood Urea Nitrogen 37 mg/dL (7-18); Globulin 3.9 g/dL (2.3-3.5); Glucose Level 109 mg/dL (74-106); Magnesium 2.2 mg/dL (1.6-2.4); NT PRO-BNP 3569 pg/mL (<125); Potassium 4.3 mEq/L (3.5-5.1); Troponin High Sensitivity 31.8 pg/mL (<58.9)
[2025-02-03 05:22] LABS: Bilirubin Indirect, Calculated 1.4 mg/dL (0.2-0.8)
--- NOTE | 2025-02-03 05:24 | EDPHYS ---
Physician Documentation [facility] – [place], [place] Name: Nely Quinones Age: 39 yrs Sex: Female : 1985 Arrival Date: 02/03/2025 Time: 03:53 Bed 5 Private MD: ED Physician Oscar Shultz HPI: 02/03 04:23 This 39 yrs old Black Female presents to ER via Unassigned with complaints of Chest toño Pain, Shortness Of Breath. 04:23 The patient or guardian reports chest pain that is located primarily in the substernal toño area, anterior chest wall. The pain does not radiate. Associated signs and symptoms: The patient has no apparent associated signs or symptoms. The chest pain is described as a heaviness, a pressure. Duration: The patient or guardian reports a single episode, that is still ongoing, but improving, The patient or guardian reports multiple episodes, that have now resolved. Modifying factors: The symptoms are alleviated by nothing. the symptoms are aggravated by nothing. Severity of pain: At its worst the pain was moderate in the emergency department the pain is unchanged. The patient has experienced similar episodes in the past, several times. 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 - Infectious Disease History:: Denies. - Family history:: not pertinent. - Social history:: Smoking status: unknown. ROS: 04:23 Constitutional: Negative for fever, chills, and weight loss, Eyes: Negative for injury, toño pain, redness, and discharge, ENT: Negative for injury, pain, and discharge, Neck: Negative for injury, pain, and swelling, Abdomen/GI: Negative for abdominal pain, nausea, vomiting, diarrhea, and constipation, Back: Negative for injury and pain, : Negative for injury, bleeding, discharge, and swelling, MS/Extremity: Negative for injury and deformity, Skin: Negative for injury, rash, and discoloration, Neuro: Negative for headache, weakness, numbness, tingling, and seizure, Psych: Negative for depression, anxiety, suicide ideation, homicidal ideation, and hallucinations, Allergy/Immunology: Negative for hives, rash, and allergies, Endocrine: Negative for neck swelling, polydipsia, polyuria, polyphagia, and marked weight changes, Hematologic/Lymphatic: Negative for swollen nodes, abnormal bleeding, and unusual bruising, 04:23 Cardiovascular: Positive for chest pain, 04:23 Respiratory: Positive for shortness of breath, 04:23 MS/extremity: Negative for acute changes, swelling, tenderness, Exam: 04:23 Constitutional: This is a well developed, well nourished patient who is awake, alert, toño and in no acute distress. Head/Face: Normocephalic, atraumatic. Eyes: Pupils equal round and reactive to light, extra-ocular motions intact. Lids and lashes normal. Conjunctiva and sclera are non-icteric and not injected. Cornea within normal limits. Periorbital areas with no swelling, redness, or edema. ENT: Nares patent. No nasal discharge, no septal abnormalities noted. Tympanic membranes are normal and external auditory canals are clear. Oropharynx with no redness, swelling, or masses, exudates, or evidence of obstruction, uvula midline. Mucous membranes moist. Neck: Trachea midline, no thyromegaly or masses palpated, and no cervical lymphadenopathy. Supple, full range of motion without nuchal rigidity, or vertebral point tenderness. No Meningismus. Chest/axilla: Normal chest wall appearance and motion. Nontender with no deformity. No lesions are appreciated. Abdomen/GI: Soft, non-tender, with normal bowel sounds. No distension or tympany. No guarding or rebound. No evidence of tenderness throughout. Back: No spinal tenderness. No costovertebral tenderness. Full range of motion. Skin: Warm, dry with normal turgor. Normal color with no rashes, no lesions, and no evidence of cellulitis. MS/ Extremity: Pulses equal, no cyanosis. Neurovascular intact. Full, normal range of motion., bilateral aka Neuro: Awake and alert, GCS 15, oriented to person, place, time, and situation. Cranial nerves II-XII grossly intact. Motor strength 5/5 in all extremities. Sensory grossly intact. Cerebellar exam normal. Normal gait. 04:23 Cardiovascular: Rate: tachycardic, actual rate is 93 bpm, Rhythm: regular, Pulses: Pulses are 4+ in bilateral radial, brachial, femoral, popliteal, posterior tibial and and dorsalis pedis arteries.. Heart sounds: normal, Edema: is not appreciated, JVD: is not appreciated, 04:23 ECG was reviewed by the Attending Physician. Vital Signs: 04:28 BP 150 / 105; Pulse 87; Resp 48; Temp 97.9; Pulse Ox 100% ; Weight 68.95 kg; Pain 10/10;vc1 04:52 BP 115 / 86; Pulse 77; Resp 18; Pulse Ox 100% on 3 lpm NC; cp4 06:15 BP 103 / 72; Pulse 65; Resp 18; Pulse Ox 100% on 2 lpm NC; cp4 07:00 BP 107 / 72; Pulse 84; Resp 18; Pulse Ox 100% ; kn 04:28 Pain Scale: Adult vc1 MDM: 03:56 Medical Screening Exam initiated toño 04:26 Differential diagnosis: abnormal EKG, acute myocardial infarction, acute pericarditis, toño anxiety, coronary artery disease chest wall pain, congestive heart failure costochondritis, esophagitis, gastritis, hiatal hernia, pancreatitis, pericarditis, pleurisy, pneumonia, pneumothorax, pulmonary embolus, stable angina, unstable angina. HEART Score: History: Moderately Suspicious (1), ECG: Non specific repolarization disturbance / LBTB / PM (1), Age: < or = 45 years (0), Risk Factors: > or = 3 Risk factors for atherosclerotic disease (2), [Hypercholesterolemia] [Hypertension] [DM] [+ Family HX] Troponin: < or = 1 x Normal Limit (0). DAR Risk Score: 1 - Three or more CAD risk factors, [Family Hx], [HTN], [DM], 1 - Recent [<24hrs] Severe Angina. Data reviewed: vital signs, nurses notes, EMS record, lab test result(s), EKG, radiologic studies, plain films. Consideration of Admission/Observation Patient was admitted/placed on observation. Escalation of care including admission/observation considered. I considered the following discharge prescriptions or medication management in the emergency department Medications were administered in the Emergency Department. See MAR. Independent interpretation of the following test(s) in the Emergency Department EKG: See my EKG interpretation above. Test considered but Not performed: Ultrasound 2 d echo. Historians other than the Patient: EMS: emswell informed. Care significantly affected by the following chronic conditions: Diabetes, Hypertension. Counseling: I had a detailed discussion with the patient and/or guardian regarding the historical points, exam findings, and any diagnostic results supporting the discharge/admit diagnosis, lab results, radiology results, the need for further work-up and treatment in the hospital. 02/03 03:58 Order name: Basic Metabolic Panel; Complete Time: 06:29 [facility] 02/03 03:58 Order name: CBC with Diff; Complete Time: 05:09 [facility] 02/03 03:58 Order name: LFT's; Complete Time: 06:29 [facility] 02/03 03:58 Order name: Magnesium; Complete Time: 06: [facility] 02/03 03:58 Order name: NT PRO-BNP; Complete Time: 06: [facility] 02/03 03:58 Order name: PT-INR; Complete Time: 06: [facility] 02/03 03:58 Order name: Troponin HS; Complete Time: 06: [facility] 02/03 04:38 Order name: Test, Serum; Complete Time: 06:29 [facility] 02/03 03:58 Order name: XRAY Chest (1 view) [facility] 02/03 03:58 Order name: Cardiac monitoring; Complete Time: 04:24 [facility] 02/03 03:58 Order name: EKG - Nurse/Tech; Complete Time: 04:24 [facility] 02/03 03:58 Order name: IV Saline Lock; Complete Time: 04:24 [facility] 02/03 03:58 Order name: Labs collected and sent; Complete Time: 04:24 [facility] 02/03 03:58 Order name: O2 Per Protocol; Complete Time: 04:24 [facility] 02/03 03:58 Order name: O2 Sat Monitoring; Complete Time: 04:24 [facility] EC:23 Rate is 93 beats/min. Rhythm is regular. QRS [place] is Normal. [place] interval is normal. QRS toño interval is normal. QT interval is normal. No Q waves. T waves are Peaked. No ST changes noted. Clinical impression: Suggests hyperkalemia. Interpreted by me. Reviewed by me. Administered Medications: 04:39 Drug: morphine IVP or IV 2 mg IVP once over 4 mins Route: IVP; Infused Over: 4 mins; cp4 Site: right wrist; 06:17 Follow up: Response: No adverse reaction cp4 04:39 Drug: Ondansetron IVP 4 mg IVP once; over 2 minutes Route: IVP; Site: right wrist; cp4 06:17 Follow up: Response: No adverse reaction cp4 04:39 Drug: Levalbuterol Inhalation 2.5 mg Inhalation once Route: Inhalation; cp4 06:17 Follow up: Response: No adverse reaction cp4 04:39 Drug: Ipratropium Inhalation Aerosol 0.5 mg Inhalation once Route: Inhalation; cp4 06:17 Follow up: Response: No adverse reaction cp4 04:39 Not Given (Hemodynamic Parameters): nitroglycerinointment 2 % 1 inches Transdermal once cp4 04:39 Drug: Aspirin PO Chewable Tablet 81 mg PO once Route: PO; cp4 06:17 Follow up: Response: No adverse reaction cp4 Disposition Summary: 02/03/25 05:24 Hospitalization Ordered Notes: Hospitalization Status: Observation toño Provider: Ab Ceja cha Location: Telemetry/MedSurg (observation) toño Condition: Fair toño Problem: new toño Symptoms: have improved toño Bed/Room Type: Standard toño Room Assignment: 218(02/03/25 06:07) eb1 Diagnosis - Essential (primary) hypertension toño - Dependence on renal dialysis toño - Chest pain, unspecified toño Forms: - Medication Reconciliation Form toño - SBAR form toño - Leadership Thank You Letter toño Signatures: Dispatcher [employer] EDOscar Shine MD MD cha Basinger, Emily RN RN eb1 Tanna Rojas RN RN vc1 Andria Lucio cp4 Corrections: (The following items were deleted from the chart) 03:59 03:59 BASIC METABOLIC PANEL+C.LAB.BRZ ordered. EDMS EDMS 03:59 03:59 CBC+H.LAB.BRZ ordered. EDMS EDMS 03:59 03:59 HEPATIC FUNCTION+C.LAB.BRZ ordered. EDMS EDMS 03:59 03:59 MAGNESIUM+C.LAB.BRZ ordered. EDMS EDMS 03:59 03:59 PROBNP+C.LAB.BRZ ordered. EDMS EDMS 03:59 03:59 PROTIME (+INR)+COAG.LAB.BRZ ordered. EDMS EDMS 03:59 03:59 Troponin High Sensitivity+C.LAB.BRZ ordered. EDMS EDMS 03:59 03:59 Chest Single View+RAD.RAD.BRZ ordered. EDMS EDMS 03:59 03:59 BiPap ([employer] Only)+RC.RAD.BRZ ordered. EDMS EDMS 06:07 05:24 toño eb1
--- NOTE | 2025-02-03 05:24 | ER ---
Nurse's Notes [facility] Name: Nely Quinones Age: 39 yrs Sex: Female : 1985 Arrival Date: 02/03/2025 Time: 03:53 Bed 5 Private MD: Diagnosis: Essential (primary) hypertension;Dependence on renal dialysis;Chest pain, unspecified Presentation: 02/03 04:28 Chief complaint: EMS states: shortness of breath and chest pain, last dialyzed Tuesday. vc1 Coronavirus screen: Client denies travel out of the [place] in the last 14 days. At this time, the client does not indicate any symptoms associated with coronavirus-19. Ebola Screen: Patient negative for fever greater than or equal to 101.5 degrees Fahrenheit, and additional compatible Ebola Virus Disease symptoms Patient denies exposure to infectious person. Patient denies travel to an Ebola-affected area in the 21 days before illness onset. No symptoms or risks identified at this time. Initial Sepsis Screen: Does the patient meet any 2 criteria? No. Patient's initial sepsis screen is negative. Does the patient have a suspected source of infection? No. Patient's initial sepsis screen is negative. Risk Assessment: Do you want to hurt yourself or someone else? Patient reports no desire to harm self or others. Onset of symptoms was February 03, 2025. 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 - Infectious Disease History:: Denies. - Family history:: not pertinent. - Social history:: Smoking status: unknown. Screenin:37 [facility] ED Fall Risk Assessment (Adult) History of falling in the last 3 months, vc1 including since admission No falls in past 3 months (0 pts) Confusion or Disorientation No (0 pts) Intoxicated or Sedated No (0 pts) Impaired Gait No (0 pts) Mobility Assist Device Used No (0 pt) Altered Elimination No (0 pt) Score/Fall Risk Level 0 - 2 = Low Risk Oriented to surroundings, Maintained a safe environment, Educated pt \T\ family on fall prevention, incl call for assistance when getting out of bed. Abuse screen: Denies threats or abuse. Nutritional screening: No deficits noted. Tuberculosis screening: No symptoms or risk factors identified. Assessment: 04:40 General: Appears in no apparent distress. uncomfortable, Behavior is cooperative, cp4 appropriate for age, anxious. Pain: Complains of pain in chest Pain does not radiate. Pain currently is 10 out of 10 on a pain scale. Pain began gradually. Neuro: Level of Consciousness is awake, alert, obeys commands, Oriented to person, place, time, situation. Cardiovascular: Patient's skin is warm and dry. Rhythm is sinus rhythm. Respiratory: Reports shortness of breath Airway is patent Respiratory effort is labored, Respiratory pattern is tachypnea. Respiratory: Breath sounds are clear bilaterally. GI: No signs and/or symptoms were reported involving the gastrointestinal system. : No signs and/or symptoms were reported regarding the genitourinary system. EENT: No signs and/or symptoms were reported regarding the EENT system. Derm: No signs and/or symptoms reported regarding the dermatologic system. Musculoskeletal: No signs and/or symptoms reported regarding the musculoskeletal system. 07:48 Reassessment: pt fax/report received, no further inquiries, pt ok to come up per 2nd fl kn CRN. Vital Signs: 04:28 BP 150 / 105; Pulse 87; Resp 48; Temp 97.9; Pulse Ox 100% ; Weight 68.95 kg; Pain 10/10;vc1 04:52 BP 115 / 86; Pulse 77; Resp 18; Pulse Ox 100% on 3 lpm NC; cp4 06:15 BP 103 / 72; Pulse 65; Resp 18; Pulse Ox 100% on 2 lpm NC; cp4 07:00 BP 107 / 72; Pulse 84; Resp 18; Pulse Ox 100% ; kn 04:28 Pain Scale: Adult vc1 ED Course: 03:54 Patient arrived in ED. [email or web address] 03:56 Oscar Shultz MD is Attending Physician. toño 04:35 XRAY Chest (1 view) In Process Unspecified. EDMS 04:36 Triage completed. vc1 04:37 Inserted saline lock: 22 gauge in right hand, using aseptic technique. Blood collected. vc1 Flushed with 10 mL NS. 04:38 Arm band placed on right wrist. vc1 04:38 Patient has correct armband on for positive identification. Bed in low position. Call vc1 light in reach. Side rails up X2. Provided Education on: Plan of care. machine sand mixer on. Pulse ox on. NIBP on. 04:40 No provider procedures requiring assistance completed. Oxygen administration via nasal cp4 cannula \T\ 3L/min. 05:23 Ab Ceja MD is Hospitalizing Provider. toño 07:11 BISHNU CALDERÓN, CHELA is Primary Nurse. kn 07:12 Report received from CHELA Ayers. pt is AAOx4, in no acute distress, vss, pt pending transfer to floor. 07:49 Patient admitted, IV remains in place. kn Administered Medications: 04:39 Drug: morphine IVP or IV 2 mg IVP once over 4 mins Route: IVP; Infused Over: 4 mins; cp4 Site: right wrist; 06:17 Follow up: Response: No adverse reaction cp4 04:39 Drug: Ondansetron IVP 4 mg IVP once; over 2 minutes Route: IVP; Site: right wrist; cp4 06:17 Follow up: Response: No adverse reaction cp4 04:39 Drug: Levalbuterol Inhalation 2.5 mg Inhalation once Route: Inhalation; cp4 06:17 Follow up: Response: No adverse reaction cp4 04:39 Drug: Ipratropium Inhalation Aerosol 0.5 mg Inhalation once Route: Inhalation; cp4 06:17 Follow up: Response: No adverse reaction cp4 04:39 Not Given (Hemodynamic Parameters): nitroglycerinointment 2 % 1 inches Transdermal once cp4 04:39 Drug: Aspirin PO Chewable Tablet 81 mg PO once Route: PO; cp4 06:17 Follow up: Response: No adverse reaction cp4 Medication: 04:38 VIS not applicable for this client. vc1 Outcome: 05:24 Decision to Hospitalize by Provider. toño 07:48 Admitted to Med/surg accompanied by tech, via stretcher, room 218, on monitor, kn 07:48 Condition: stable 07:48 Instructed on the need for admit, Demonstrated understanding of Prescriptions given X 07:49 Patient left the ED. kn Signatures: Dispatcher [employer] Oscar Sparks MD MD cha Jeffries, Jennifer [email or web address] Tanna Rojas RN RN vc1 Andria Lucio cp4 BISHNU CALDERÓN RN RN kn
[2025-02-03] MEDS ORDERED: ONDANSETRON 4 MG/2 ML VIAL IV PRN (06:32)
[2025-02-03] MEDS: HEPARIN 5000 UNIT/ML 1 ML VIAL SQ SCH (09:00)
[2025-02-03 11:05] VITALS: BMI 27.8
--- NOTE | 2025-02-03 12:31 | P.CNS ---
Date of Consult: 02/03/25 Chief Complaint: chest pain History of Present Illness: Patient with PMH of ESRD on HD for the last 6 years due to HTN, presented with weakness, report chest pain, sharp in nature, started yesterday, no radiation, no other symptoms. Allergies No Known Allergies Allergy (Verified 11/19/19 21:40) Home medications list reviewed: Yes Home Medications: Sevelamer Carbonate [Renvela*] 800 mg PO TIDWM #90 tab 05/12/22 Furosemide [Lasix] 80 mg PO BID 05/29/23 Hydrocodone 5/APAP 325 [[place] 5/325*] 1 tab PO Q6H PRN #10 tab 01/17/24 Butalb/Acetaminophen/Caffeine [Fioricet 50-300-40 mg Capsule] 1 cap PO Q6HR PRN 05/14/24 Clonidine Patch [Catapres-Tts 1*] 0.1 mg TD DAILY 05/14/24 NIFEdipine [Nifedipine ER] 90 mg PO DAILY #30 tab 05/16/24 carvediloL [Carvedilol] 12.5 mg PO BID #60 tab 05/16/24 lisinopriL [Lisinopril] 40 mg PO DAILY #30 tab 05/16/24 Ondansetron [Zofran (Odt)*] 4 mg PO Q6H PRN #30 tab 11/06/24 - Past Medical/Surgical History Diabetic: No -: HTN -: ESRD on HD (Dr. Monge) M/W/F -: Asthma -: Anemia -: C Section -: Tubal Ligation Psychosocial/ Personal History: Patient lives at home with her 4 children. - Family History Father Medical History: Hypertension Mother Medical History: Heart disease - Social History Smoking Status: Unknown if ever smoked Alcohol use: No CD- Drugs: No Caffeine use: No Place of Residence: Home Review of Systems 10-point ROS is otherwise unremarkable Physical Examination Temp Pulse Resp BP Pulse Ox 97.7 F 61 20 95/57 L 99 02/03/25 08:00 02/03/25 08:00 02/03/25 08:00 02/03/25 08:00 02/03/25 08:00 General: Alert, In no apparent distress HEENT: Atraumatic, PERRLA, Mucous membr. moist/pink, EOMI, Sclerae nonicteric Neck: Supple, 2+ carotid pulse no bruit, No LAD, Without JVD or thyroid abnormality Respiratory: Clear to auscultation bilaterally, Normal air movement Cardiovascular: Regular rate/rhythm, Normal S1 S2 Gastrointestinal: Normal bowel sounds, No tenderness Musculoskeletal: No tenderness Integumentary: No rashes Neurological: Normal gait, Normal speech, Normal tone, Normal affect Lymphatics: No axilla or inguinal lymphadenopathy Laboratory Data (last 24 hrs) 02/03/25 02/03/25 02/03/25 04:49 04:49 04:49 WBC 5.20 Hgb 11.7 L Hct 35.6 L Plt Count 295 PT 13.1 H INR 1.16 Sodium 135 L Potassium 4.3 BUN 37 H Creatinine 8.85 H Glucose 109 H Magnesium 2.2 Total Bilirubin 1.6 H AST 17 ALT 21 Alkaline Phosphatase 81 - Problems (1) Chest pain Current Visit: Yes Status: Acute Plan: atypical with negative cardiac enzymes continue to trend troponin for 3 sets if all negative then no further inpatient cardiac work up needed patient can follow up with cardiology as outpatient for cardiac PET. (2) End stage renal disease on dialysis Current Visit: No Status: Chronic Plan: continue dialysis (3) HTN (hypertension) Current Visit: No Status: Chronic Plan: reconcile and resume home medications and continue to monitor cardiology will sign off, please call with any questions. Qualifiers:
--- NOTE | 2025-02-03 15:44 | P.HP ---
Certification for Inpatient Patient admitted to: Observation With expected LOS: <2 Midnights Patient will require the following post-hospital care: None Practitioner: I am a practitioner with admitting privileges, knowledge of patient current condition, hospital course, and medical plan of care. Services: Services provided to patient in accordance with Admission requirements found in Title 42 Section 412.3 of the Code of Federal Regulations <rTenton Pulliam - Last Filed: 02/03/25 15:41> Patient History Date of Service: 02/03/25 Reason for admission: chest pain History of Present Illness: 39-year-old female with history of ESRD on HD MWF, hypertension presents emerged department chief complaint of chest pain. She reports waking up this morning with chest pain and shortness of breath, felt she could not catch her breath. She was evaluated in the emergency department her labs are significant for an initial high sensitive troponin of 31.8, chemistry demonstrates her ESRD with a potassium of 4.3 bicarb of 27 and creatinine of 8.85 chest x-ray was performed and was negative for any acute findings. ED provider wishes to admit patient under observation for ACS rule out. - Past Medical/Surgical History Has patient received pneumonia vaccine in the past: No Diabetic: No -: HTN -: ESRD on HD (Dr. Monge) M/W/F -: Asthma -: Anemia -: C Section -: Tubal Ligation Psychosocial/ Personal History: Patient lives at home with her 4 children. - Family History Father -: Hypertension Mother -: Heart disease - Social History Smoking Status: Never smoker Alcohol use: No CD- Drugs: No Caffeine use: No Place of Residence: Home <Trenton Pulliam - Last Filed: 02/03/25 15:41> Date of Service: 02/03/25 <Linda Marino - Last Filed: 02/03/25 15:47> Allergies No Known Allergies Allergy (Verified 11/19/19 21:40) Home Medications: Sevelamer Carbonate [Renvela*] 800 mg PO TIDWM #90 tab 05/12/22 Furosemide [Lasix] 80 mg PO BID 05/29/23 Hydrocodone 5/APAP 325 [[place] 5/325*] 1 tab PO Q6H PRN #10 tab 01/17/24 Butalb/Acetaminophen/Caffeine [Fioricet 50-300-40 mg Capsule] 1 cap PO Q6HR PRN 05/14/24 Clonidine Patch [Catapres-Tts 1*] 0.1 mg TD DAILY 05/14/24 NIFEdipine [Nifedipine ER] 90 mg PO DAILY #30 tab 05/16/24 carvediloL [Carvedilol] 12.5 mg PO BID #60 tab 05/16/24 lisinopriL [Lisinopril] 40 mg PO DAILY #30 tab 05/16/24 Ondansetron [Zofran (Odt)*] 4 mg PO Q6H PRN #30 tab 11/06/24 Review of Systems 10-point ROS is otherwise unremarkable Respiratory: Shortness of Breath Cardiovascular: Chest Pain <Trenton Pulliam - Last Filed: 02/03/25 15:41> Physical Examination - Vital Signs Temperature: 97.8 F Blood Pressure: 98/54 Pulse: 67 Respirations: 18 Pulse Ox (%): 100 - Physical Exam General: Alert, In no apparent distress, Oriented x3 HEENT: Atraumatic, PERRLA, EOMI Neck: Supple, 2+ carotid pulse no bruit, No LAD Respiratory: Clear to auscultation bilaterally, Normal air movement Cardiovascular: Regular rate/rhythm, Normal S1 S2 Gastrointestinal: Normal bowel sounds, No tenderness Musculoskeletal: No tenderness Integumentary: No rashes Neurological: Normal gait, Normal speech, Normal strength at 5/5 x4 extr, Normal affect - Studies Laboratory Data (last 24 hrs) 02/03/25 02/03/25 02/03/25 04:49 04:49 04:49 WBC 5.20 Hgb 11.7 L Hct 35.6 L Plt Count 295 PT 13.1 H INR 1.16 Sodium 135 L Potassium 4.3 BUN 37 H Creatinine 8.85 H Glucose 109 H Magnesium 2.2 Total Bilirubin 1.6 H AST 17 ALT 21 Alkaline Phosphatase 81 <Trenton Pulliam - Last Filed: 02/03/25 15:41> - Studies Laboratory Data (last 24 hrs) 02/03/25 02/03/25 02/03/25 04:49 04:49 04:49 WBC 5.20 Hgb 11.7 L Hct 35.6 L Plt Count 295 PT 13.1 H INR 1.16 Sodium 135 L Potassium 4.3 BUN 37 H Creatinine 8.85 H Glucose 109 H Magnesium 2.2 Total Bilirubin 1.6 H AST 17 ALT 21 Alkaline Phosphatase 81 <Linda Marino - Last Filed: 02/03/25 15:47> Assessment and Plan - Plan Assessment: Chest pain rule out ACS ESRD on HD MWF Hypertension Plan: Chest pain rule out ACS Troponin negative x 2 thus far Recheck for troponin and monitor on telemetry overnight Cardiology has seen patient recommend serial troponins if negative outpatient PET stress test ESRD on HD MWF Nephrology consultation If troponins negative can possibly be discharged tomorrow in good outpatient dialysis Hypertension Blood pressure running soft at the moment, hold oral antihypertensive agents DVT PPX: Heparin subcu Code status: Full code Discharge Plan: Home Plan to discharge in: 24 Hours - Advance Directives Does patient have a Living Will: No Does patient have a Durable POA for Healthcare: No - Code Status/Comfort Care Code Status Assessed: Yes (Full code) Critical Care: No Time Spent Managing Pts Care (In Minutes): 65 <Trenton Pulliam - Last Filed: 02/03/25 15:41> Physician Review: Patient Assessed, Agree with Above Assessment and Plan <Linda Marino - Last Filed: 02/03/25 15:47>
[2025-02-03] MEDS: CALCIUM CARBONATE CHEW 500MG TAB PO PRN (18:11)
[2025-02-03] MEDS: CEFTRIAXONE 1,000 MG in NA CHLORIDE 0.9% 50 ML IVPB SCH (22:01)
[2025-02-03] MEDS: MELATONIN 5 MG TABLET PO ONE (23:19)
[2025-02-04 01:21] LABS: Anion Gap 30.4 mEq/L (5.0-15.0); BUN Blood Urea Nitrogen 51.0 mg/dL (7-18); Glucose Level 107.0 mg/dL (74-106); Potassium 4.4 mEq/L (3.5-5.1)
[2025-02-04 05:46] LABS: Absolute Lymphocytes (CBC) 0.9 K/uL (0.7-4.9); Hematocrit 33.5 % (36.0-45.0); Hemoglobin 10.8 g/dL (12.0-15.0); MCH 29.3 pg (27.0-35.0); MCHC 32.4 g/dL (32.0-36.0); MCV 90.5 fL (80-100); MPV 8.3 fL (7.6-11.3); Nucleated RBC Absolute Count 0.0 (0-0); Nucleated Red Blood Cells % 0.0 % (0-0); RBC Red Blood Cell Count 3.70 M/uL (3.86-4.86); White Blood Count 4.20 thou/uL (4.3-10.9)
--- NOTE | 2025-02-04 09:03 | P.PN ---
Date of Service: 02/04/25 Subjective: Complains of malaise Blood pressure soft White blood cell count normal, no fevers ROS: 10 point ROS as noted above, otherwise negative Physical exam GEN: Alert, oriented, NAD HEENT: Normal conjunctiva, sclera anicteric CV: Regular rate and rhythm, no edema Pulm: Nonlabored respirations on room air ABD: Soft, nontender, nondistended MSK: No joint tenderness Integumentary: No rashes Neuro: Normal speech, normal affect Vitals reviewed Assessment: Chest pain rule out ACS ESRD on HD MWF Hypertension Plan: Chest pain rule out ACS Troponin negative x 3 Continue to monitor on telemetry Cardiology has seen patient recommend serial troponins if negative outpatient PET stress test ESRD on HD MWF Nephrology consultation Blood pressure still running soft at this time, patient not feeling well Blood pressure has improved some from overnight Started on ceftriaxone yesterday by nephrology Plan for likely inpatient HD today PT consultation Hypertension Blood pressure running soft at the moment, hold oral antihypertensive agents DVT PPX: Heparin subcu Code status: Full code Discharge Plan: Home Plan to discharge in: 24 Hours Time Spent Managing Pts Care (In Minutes): 35 <Tretnon Pulliam - Last Filed: 02/04/25 09:01> I have personally seen and evaluated the patient. I have reviewed the history, physical exam findings, and assessment provided by Trenton Pulliam COMPUTER TECHNICAL SUPPORT SPECIALIST. I agree with the plan of care as documented <Linda Marino - Last Filed: 02/04/25 16:01>
[2025-02-04] MEDS: PANTOPRAZOLE 40MG TABLET PO SCH (09:33)
[2025-02-04] MEDS: ACETAMIN/CAFFEINE/BUTALB TAB PO PRN (20:20)
[2025-02-04] MEDS ORDERED: MELATONIN 5 MG TABLET PO SCH (21:00)
--- NOTE | 2025-02-04 21:12 | P.CNS ---
Date of Consult: 02/04/25 Reason for Consult: ESRD Requesting Physician: Linda Marino Chief Complaint: chest pain History of Present Illness: 39-year-old female with history of ESRD on HD MWF, hypertension presents emerged department chief complaint of chest pain. She reports waking up this morning with chest pain and shortness of breath, felt she could not catch her breath. She was evaluated in the emergency department her labs are significant for an initial high sensitive troponin of 31.8, chemistry demonstrates her ESRD with a potassium of 4.3 bicarb of 27 and creatinine of 8.85 chest x-ray was performed and was negative for any acute findings. ED provider wishes to admit patient under observation for ACS rule out. 04:23 This 39 yrs old Black Female presents to ER via Unassigned with complaints of Chest toño Pain, Shortness Of Breath. 04:23 The patient or guardian reports chest pain that is located primarily in the substernal toño area, anterior chest wall. The pain does not radiate. Associated signs and sym ptoms: The patient has no apparent associated signs or symptoms. The chest pain is described as a heaviness, a pressure. Duration: The patient or guardian reports a single episode, that is still ongoing, but improving, The patient or guardian reports multiple episodes, that have now resolved. Modifying factors: The symptoms are alleviated by nothing. the symptoms are aggravated by nothing. Severity of pain: At its worst the pain was moderate in the emergency department the pain is unchanged. The patient has experienced similar episodes in the past, several times. Allergies No Known Allergies Allergy (Verified 11/19/19 21:40) Home medications list reviewed: Yes Home Medications: Sevelamer Carbonate [Renvela*] 800 mg PO TIDWM #90 tab 05/12/22 Furosemide [Lasix] 80 mg PO BID 05/29/23 Hydrocodone 5/APAP 325 [[place] 5/325*] 1 tab PO Q6H PRN #10 tab 01/17/24 Butalb/Acetaminophen/Caffeine [Fioricet 50-300-40 mg Capsule] 1 cap PO Q6HR PRN 05/14/24 Clonidine Patch [Catapres-Tts 1*] 0.1 mg TD DAILY 05/14/24 NIFEdipine [Nifedipine ER] 90 mg PO DAILY #30 tab 05/16/24 carvediloL [Carvedilol] 12.5 mg PO BID #60 tab 05/16/24 lisinopriL [Lisinopril] 40 mg PO DAILY #30 tab 05/16/24 Ondansetron [Zofran (Odt)*] 4 mg PO Q6H PRN #30 tab 11/06/24 - Past Medical/Surgical History Diabetic: No -: HTN -: ESRD on HD (Dr. Monge) M/W/F -: Asthma -: Anemia -: C Section -: Tubal Ligation Psychosocial/ Personal History: Patient lives at home with her 4 children. - Family History Father Medical History: Hypertension Mother Medical History: Heart disease - Social History Smoking Status: Unknown if ever smoked Alcohol use: No CD- Drugs: No Caffeine use: No Place of Residence: Home Review of Systems 10-point ROS is otherwise unremarkable General: Weakness, Malaise Physical Examination Temp Pulse Resp BP Pulse Ox 98.2 F 69 18 120/79 99 02/04/25 16:00 02/04/25 16:00 02/04/25 16:00 02/04/25 16:00 02/04/25 16:00 General: In no apparent distress, Oriented x3, Cooperative HEENT: Atraumatic Neck: Supple Respiratory: Normal air movement Cardiovascular: No edema, Regular rate/rhythm Gastrointestinal: Soft and benign, Non-distended Musculoskeletal: No clubbing, No contractures Integumentary: No rashes, No cyanosis Neurological: Normal speech Blood work reviewed in the chart. Imagings Data: [id number] Reason for Exam: Cough;Dyspnea Report Status: Signed INDICATION: Cough;Dyspnea COMPARISON: No existing relevant imaging studies are available FINDINGS: Single frontal view of the chest was obtained. SUPPORT DEVICES: None HEART/MEDIASTINUM: Cardiomediastinal contours are normal. LUNGS/PLEURA: Lungs are clear. No pleural effusion or pneumothorax. OTHER: Remote deformity of the lateral right clavicle. IMPRESSION: No acute findings. LEFT VENTRICULAR WALL MOTION: NORMAL DOPPLER/COLOR FLOW: GRADE II DIASTOLIC DYSFUNCTION COMMENTS: 1. NORMAL LEFT VENTRICULAR SYSTOLIC FUNCTION, EJECTION FRACTION 60-65%, NORMAL WALL MOTION 2. GRADE II DIASTOLIC DYSFUNCTION 3. ELEVATED FILLING PRESSURE (RIGHT ATRIAL PRESSURE 10-15 mmHg) 4. MODERATE PULMONARY HYPERTENSION (RIGHT VENTRICULAR SYSTOLIC PRESSURE 50-55 mmHg) 5. MODERATE MITRAL REGURGITATION Conclusions/Impression: ESRD on HD -HD TIW -Seen and examined on HD HTN with ESRD/ CHF -Hold antihypertensives at this time Diastolic CHF, chronic Pulmonary HTN/ Moderate MR -UF with HD Anemia in CKD -Retacrit prn CKD MBD Secondary HyperParathyroidism -Start Ergo Acute Klebsiella Cystitis -Continue Natalie Hospitalist and ER notes reviewed Case reviewed with the hospitalist team Thank you kindly for the consultation
[2025-02-04] MEDS: DOCUSATE NA 100 MG CAP PO SCH (21:30)
[2025-02-04] MEDS: ZOLPIDEM TARTRATE 5 MG TABLET PO SCH (22:23)
[2025-02-05 07:55] LABS: Absolute Lymphocytes (CBC) 1.0 K/uL (0.7-4.9); Hematocrit 35.0 % (36.0-45.0); Hemoglobin 11.7 g/dL (12.0-15.0); MCH 29.9 pg (27.0-35.0); MCHC 33.4 g/dL (32.0-36.0); MCV 89.5 fL (80-100); MPV 8.0 fL (7.6-11.3); Nucleated RBC Absolute Count 0.0 (0-0); Nucleated Red Blood Cells % 0.0 % (0-0); RBC Red Blood Cell Count 3.91 M/uL (3.86-4.86); White Blood Count 3.70 thou/uL (4.3-10.9)
[2025-02-05 08:19] LABS: Anion Gap 12.7 mEq/L (5.0-15.0); BUN Blood Urea Nitrogen 37.0 mg/dL (7-18); Glucose Level 80.0 mg/dL (74-106); Potassium 4.7 mEq/L (3.5-5.1)
[2025-02-05] MEDS: NEPRO SHAKE 237 ML CAN PO SCH (09:00)
[2025-02-05] MEDS: PANTOPRAZOLE 40MG TABLET PO SCH (09:32)
[2025-02-05] MEDS: MULTIVITAMINS,THERAPEUT 1 TAB PO SCH (09:32)
[2025-02-05] MEDS: levoFLOXacin 500 MG TAB PO ONE (09:32)
[2025-02-05] MEDS: DRISDOL (VITAMIN D=ERGOCALCIFEROL) 50000 UNIT CAP PO SCH (09:32)
[2025-02-05 09:46] VITALS: BP 118/68; TEMP 98.1
[2025-02-05 10:12] VITALS: O2SAT 98
--- NOTE | 2025-02-05 15:53 | P.DS ---
Admission Date: 02/03/25 Discharge Date: 02/05/25 Reason for Admission: chest pain Brief History of Present Illness: 39-year-old female with history of ESRD on HD MWF, hypertension presents emerged department chief complaint of chest pain. She reports waking up this morning with chest pain and shortness of breath, felt she could not catch her breath. She was evaluated in the emergency department her labs are significant for an initial high sensitive troponin of 31.8, chemistry demonstrates her ESRD with a potassium of 4.3 bicarb of 27 and creatinine of 8.85 chest x-ray was performed and was negative for any acute findings. ED provider wishes to admit patient under observation for ACS rule out. Hospital Course: Assessment: Chest pain rule out ACS ESRD on HD MWF Hypertension Patient was initially admitted to hospital for chest pain/ACS rule out. Her troponins were negative x 3 and she saw cardiology recommends outpatient follow- up for stress test. Additionally it was noted the patient blood pressure has been running low, this is atypical for her as her blood pressure is typically high. This was discussed with nephrology and previous records were reviewed, she had a urine culture performed on 01/31/2025 which grew Klebsiella which was essentially pansensitive. She was started on ceftriaxone during hospitalization, blood pressure improved and she began to feel better. She received inpatient HD on 02/04 and to stay for discharge and outpatient follow-up with her PCP. Prescription for levofloxacin 250 mg every 48 hours given to patient this should be started on 02/07 on dialysis days this medication should be taken after dialysis. Today's blood pressure is in the 120s, patient should check her blood pressure daily before taking her medications, if her blood pressure is less than 120 s ystolic she should not take her blood pressure medications. She will need to slowly start her blood pressure medications. Follow-up with your primary care doctor 1 to 2 weeks Follow-up with nephrology in 2 to 3 days for continued HD Monitor for fevers, low blood pressures, return to hospital if there are persistent fevers or persistently low blood pressures less than 100 for the top number <Trenton Pulliam - Last Filed: 02/05/25 15:51> Admission Date: 02/03/25 Discharge Date: 02/05/25 <Linda Marino - Last Filed: 02/05/25 16:39> Disposition: ROUTINE DISCHARGE Discharge Condition: GOOD Vital Signs/Physical Exam: Temp Pulse Resp BP Pulse Ox 98.1 F 65 98 H 118/68 98 02/05/25 08:00 02/05/25 08:00 02/05/25 08:00 02/05/25 08:00 02/05/25 08:00 General: Alert, In no apparent distress, Oriented x3 HEENT: Atraumatic, PERRLA Neck: Supple, JVD not distended Respiratory: Clear to auscultation bilaterally, Normal air movement Cardiovascular: Regular rate/rhythm, Normal S1 S2 Gastrointestinal: Normal bowel sounds, No tenderness Musculoskeletal: No tenderness Neurological: Normal speech, Normal affect Laboratory Data at Discharge: WBC 3.70 thou/uL (4.3-10.9) L 02/05/25 07:31 Hgb 11.7 g/dL (12.0-15.0) L D 02/05/25 07:31 Hct 35.0 % (36.0-45.0) L 02/05/25 07:31 Plt Count 270 thou/uL (152-406) 02/05/25 07:31 PT 13.1 SECONDS (10-13.0) H 02/03/25 04:49 INR 1.16 02/03/25 04:49 Sodium 136 mEq/L (136-145) 02/05/25 07:31 Potassium 4.7 mEq/L (3.5-5.1) 02/05/25 07:31 BUN 37 mg/dL (7-18) H 02/05/25 07:31 Creatinine 7.60 mg/dL (0.55-1.02) H 02/05/25 07:31 Glucose 80 mg/dL (74-106) 02/05/25 07:31 Phosphorus 6.2 mg/dL (2.5-4.9) H 02/05/25 07:31 Magnesium 2.2 mg/dL (1.6-2.4) 02/03/25 04:49 Total Bilirubin 1.6 mg/dL (0.2-1.0) H 02/03/25 04:49 AST 17 U/L (15-37) 02/03/25 04:49 ALT 21 U/L (13-56) 02/03/25 04:49 Alkaline Phosphatase 81 U/L (45-117) 02/03/25 04:49 <Trenton Pulliam - Last Filed: 02/05/25 15:51> Vital Signs/Physical Exam: Temp Pulse Resp BP Pulse Ox 98.1 F 65 98 H 118/68 98 02/05/25 08:00 02/05/25 08:00 02/05/25 08:00 02/05/25 08:00 02/05/25 08:00 Laboratory Data at Discharge: WBC 3.70 thou/uL (4.3-10.9) L 02/05/25 07:31 Hgb 11.7 g/dL (12.0-15.0) L D 02/05/25 07:31 Hct 35.0 % (36.0-45.0) L 02/05/25 07:31 Plt Count 270 thou/uL (152-406) 02/05/25 07:31 PT 13.1 SECONDS (10-13.0) H 02/03/25 04:49 INR 1.16 02/03/25 04:49 Sodium 136 mEq/L (136-145) 02/05/25 07:31 Potassium 4.7 mEq/L (3.5-5.1) 02/05/25 07:31 BUN 37 mg/dL (7-18) H 02/05/25 07:31 Creatinine 7.60 mg/dL (0.55-1.02) H 02/05/25 07:31 Glucose 80 mg/dL (74-106) 02/05/25 07:31 Phosphorus 6.2 mg/dL (2.5-4.9) H 02/05/25 07:31 Magnesium 2.2 mg/dL (1.6-2.4) 02/03/25 04:49 Total Bilirubin 1.6 mg/dL (0.2-1.0) H 02/03/25 04:49 AST 17 U/L (15-37) 02/03/25 04:49 ALT 21 U/L (13-56) 02/03/25 04:49 Alkaline Phosphatase 81 U/L (45-117) 02/03/25 04:49 <Linda Marino - Last Filed: 02/05/25 16:39> Diet: Renal Activity: Ad corby Time spent managing pt's care (in minutes): 42 <Trenton Pulliam - Last Filed: 02/05/25 15:51> Physician Review: Patient Assessed, Agree with Above Assessment and Plan <Linda Marino - Last Filed: 02/05/25 16:39> Home Medications: Sevelamer Carbonate [Renvela*] 800 mg PO TIDWM #90 tab 05/12/22 Furosemide [Lasix] 80 mg PO BID 05/29/23 Hydrocodone 5/APAP 325 [[place] 5/325*] 1 tab PO Q6H PRN #10 tab 01/17/24 Butalb/Acetaminophen/Caffeine [Fioricet 50-300-40 mg Capsule] 1 cap PO Q6HR PRN 05/14/24 Clonidine Patch [Catapres-Tts 1*] 0.1 mg TD DAILY 05/14/24 NIFEdipine [Nifedipine ER] 90 mg PO DAILY #30 tab 05/16/24 carvediloL [Carvedilol] 12.5 mg PO BID #60 tab 05/16/24 lisinopriL [Lisinopril] 40 mg PO DAILY #30 tab 05/16/24 Ondansetron [Zofran (Odt)*] 4 mg PO Q6H PRN #30 tab 11/06/24 levoFLOXacin [Levofloxacin] 250 mg PO Q48H #4 tab 02/05/25 New Medications: levoFLOXacin [Levofloxacin] 250 mg PO Q48H #4 tab Physician Discharge Instructions: Patient was initially admitted to hospital for chest pain/ACS rule out. Her troponins were negative x 3 and she saw cardiology recommends outpatient follow- up for stress test. Additionally it was noted the patient blood pressure has been running low, this is atypical for her as her blood pressure is typically high. This was discussed with nephrology and previous records were reviewed, she had a urine culture performed on 01/31/2025 which grew Klebsiella which was essentially pansensitive. She was started on ceftriaxone during hospitalization, blood pressure improved and she began to feel better. She received inpatient HD on 02/04 and to stay for discharge and outpatient follow-up with her PCP. Prescription for levofloxacin 250 mg every 48 hours given to patient this should be started on 02/07 on dialysis days this medication should be taken after dialysis. Today's blood pressure is in the 120s, patient should check her blood pressure daily before taking her medications, if her blood pressure is less than 120 systolic she should not take her blood pressure medications. She will need to slowly start her blood pressure medications. Follow-up with your primary care doctor 1 to 2 weeks Follow-up with nephrology in 2 to 3 days for continued HD Monitor for fevers, low blood pressures, return to hospital if there are persistent fevers or persistently low blood pressures less than 100 for the top number Followup: Sami Monge, [ACTIVE - CAN ADMIT] - 2-3 Days Gregg Lares MD [ACTIVE - CAN ADMIT] - 1-2 Weeks Regina Robledo MD [Primary Care Provider] - 1-2 Weeks
--- NOTE | 2025-02-05 20:34 | P.PN ---
Date of Service: 02/05/25 Vital Signs Temp Pulse Resp BP Pulse Ox 98.1 F 65 98 H 118/68 98 02/05/25 08:00 02/05/25 08:00 02/05/25 08:00 02/05/25 08:00 02/05/25 08:00 Assessment/ Plan: Nephrology No dyspnea No chest pain No acute events overnight Vitals, medications, blood work and imaging reviewed in the chart General: In no apparent distress, Oriented x3, Cooperative HEENT: Atraumatic Neck: Supple Respiratory: Normal air movement Cardiovascular: No edema, Regular rate/rhythm Gastrointestinal: Soft and benign, Non-distended Musculoskeletal: No clubbing, No contractures Integumentary: No rashes, No cyanosis Neurological: Normal speech Blood work reviewed in the chart. Imagings Data: Reason for Exam: Cough;Dyspnea INDICATION: Cough;Dyspnea COMPARISON: No existing relevant imaging studies are available FINDINGS: Single frontal view of the chest was obtained. SUPPORT DEVICES: None HEART/MEDIASTINUM: Cardiomediastinal contours are normal. LUNGS/PLEURA: Lungs are clear. No pleural effusion or pneumothorax. OTHER: Remote deformity of the lateral right clavicle. IMPRESSION: No acute findings. LEFT VENTRICULAR WALL MOTION: NORMAL DOPPLER/COLOR FLOW: GRADE II DIASTOLIC DYSFUNCTION COMMENTS: 1. NORMAL LEFT VENTRICULAR SYSTOLIC FUNCTION, EJECTION FRACTION 60-65%, NORMAL WALL MOTION 2. GRADE II DIASTOLIC DYSFUNCTION 3. ELEVATED FILLING PRESSURE (RIGHT ATRIAL PRESSURE 10-15 mmHg) 4. MODERATE PULMONARY HYPERTENSION (RIGHT VENTRICULAR SYSTOLIC PRESSURE 50-55 mmHg) 5. MODERATE MITRAL REGURGITATION Conclusions/Impression: ESRD on HD -HD TIW HTN with ESRD/ CHF -Restart antihypertensives as indicated Diastolic CHF, chronic Pulmonary HTN/ Moderate MR -UF with HD Anemia in CKD -Retacrit prn CKD MBD Secondary HyperParathyroidism -Continue Ergo Acute Klebsiella Cystitis -Continue Rocephin Hospitalist note reviewed Case reviewed with the hospitalist team
[2025-02-05] MEDS ORDERED: ZOLPIDEM TARTRATE 5 MG TABLET PO SCH (21:00)
== END 2025-02-05 10:33 | disposition home or self-care (01) ==
LOC: ER 03:53 → 2ND 06:31 → EEVIPCON 06:31
PROVIDERS: ADMIT Family Medicine; ATTEND Family Medicine
DX: R07.9 Chest pain, unspecified (principal); N18.6 End stage renal disease; B96.1 Klebsiella pneumoniae [K. pneumoniae] as the cause of diseases classified elsewhere; R06.02 Shortness of breath; I10 Essential (primary) hypertension; I50.32 Chronic diastolic (congestive) heart failure; D63.1 Anemia in chronic kidney disease; N30.00 Acute cystitis without hematuria; Z99.2 Dependence on renal dialysis
CPT/HCPCS: 93005; 85025 ×3; 80048 ×3; 36415 ×3; 83735; 84703; 84100; 85610; 80076; 84484 ×3; 83880; 71045; 90935; 96375; 96374; 99285; J1644 ×3; J7614; J7644; J2270; J2405; J0696 ×2; G0378

== ENCOUNTER 2025-03-02 15:49 | Emergency (ER) | payer OTHER ==
--- NOTE | 2025-03-02 17:20 | RAD REPORT ---
EXAMINATION: ONE VIEW CHEST XR CLINICAL INDICATION: FEVER TECHNIQUE: Frontal chest projection is submitted. Examination is limited by patient positioning and t echnique. COMPARISON: 02/20/2025 FINDINGS: The lungs are well inflated and clear. The heart is moderately enlarged in size. No displaced fractur es identified. Right-sided venous catheters tip in SVC. IMPRESSION: No acute intrathoracic abnormalities.
[2025-03-02 17:45] LABS: Absolute Lymphocytes (CBC) 2.0 K/uL (0.7-4.9); Hematocrit 23.0 % (36.0-45.0); Hemoglobin 7.7 g/dL (12.0-15.0); MCH 29.9 pg (27.0-35.0); MCHC 33.6 g/dL (32.0-36.0); MCV 88.9 fL (80-100); MPV 7.0 fL (7.6-11.3); Nucleated RBC Absolute Count 0.0 (0-0); Nucleated Red Blood Cells % 0.2 % (0-0); RBC Red Blood Cell Count 2.59 M/uL (3.86-4.86); White Blood Count 11.70 thou/uL (4.3-10.9)
[2025-03-02] MEDS ORDERED: ACETAMINOPHEN 500 MG TAB ONE (18:04)
[2025-03-02] MEDS ORDERED: NA CHLORIDE 0.9% 250 ML ONE (18:05)
[2025-03-02] MEDS ORDERED: NA CHLORIDE 0.9% 100 ML ONE (18:06)
[2025-03-02] MEDS ORDERED: MORPHINE 4 MG/ML SYR ONE ×2 (18:10→19:26)
[2025-03-02 18:43] LABS: Blood Morphology Comment NOTED (NOT SEEN); White Blood Cell Scan OK (OK)
[2025-03-02 18:44] LABS: Ovalocytes SLIGHT; Stomatocytes 1+
[2025-03-02 18:46] LABS: ALT/SGPT 79.0 U/L (13-56); AST/SGOT 55.0 U/L (15-37); Albumin 3.0 g/dL (3.4-5.0); Albumin/Globulin Ratio 0.6 (1.1-1.8); Alkaline Phosphatase 204.0 U/L (45-117); Anion Gap 12.7 mEq/L (5.0-15.0); BUN Blood Urea Nitrogen 36.0 mg/dL (7-18); Globulin 4.9 g/dL (2.3-3.5); Glucose Level 81.0 mg/dL (74-106); NT PRO-BNP 42144.0 pg/mL (<125); Potassium 3.7 mEq/L (3.5-5.1)
--- NOTE | 2025-03-02 18:46 | RAD REPORT ---
EXAM: CT brain without contrast HISTORY: HEADACHE COMPARISON: 03/08/2024 TECHNIQUE: Multiple contiguous axial images were obtained and a CT of the brain without contrast. Sag ittal and coronal reformats were performed. One or more of the following dose reduction techniques were used: Automated exposure control, adjust ment of the mA and/or kV according to patient size, and/or iterative reconstruction. FINDINGS: No evidence of hydrocephalus, intracranial hemorrhage, or extra-axial fluid collection. The brain is normal in morphology. No evidence of midline shift or areas of brain edema. The calvarium is intact. The visualized paranasal sinuses and mastoid air cells are essentially clear . IMPRESSION: No evidence of acute intracranial abnormality.
[2025-03-02 18:47] LABS: PT Prothrombin Time 13.9 SECONDS (10-13.0); PTT, Activated Partial Thromb 27.2 SECONDS (27.2-37.4); Protime INR 1.24
[2025-03-02] MEDS ORDERED: HYDRALAZINE HCL 20 MG/ML VIAL ONE (18:48)
[2025-03-02 18:49] LABS: Troponin High Sensitivity 63.9 pg/mL (<58.9)
--- NOTE | 2025-03-02 18:49 | RAD REPORT ---
EXAM: CT CHEST, ABDOMEN AND PELVIS WITHOUT CONTRAST CLINICAL INDICATION: abdominal pain;Chest pain TECHNIQUE: CT chest, abdomen and pelvis was performed without contrast, as per department protocol. A xial, sagittal and coronal reconstructions were obtained. One or more of the following dose reduction techniques were used: Automated exposure control, adjustment of the mA and/or kV according to patient size, and/or iterative reconstruction. Unless otherwise specified, incidental findings do not require dedicated imaging follow-up. Examination is limited by the lack of intravenous contrast material. COMPARISON: 09/30/2024 FINDINGS: LUNGS: Mild interstitial pulmonary edema. Areas of nodularity in the posterior left upper lobe. PLEURA: No pleural effusion. No pneumothorax. MEDIASTINUM AND LYMPH NODES: No mediastinal mass or fluid collection. Normal size mediastinal, hilar, and axillary lymph nodes. OSSEOUS STRUCTURES AND CHEST WALL: Intact. LIVER: Normal in size and contour. No focal lesion or biliary dilatation. Grossly unremarkable gallbl adder. PANCREAS: No mass, ductal dilation, or dion-pancreatic fluid. SPLEEN: Normal size. No focal lesion. ADRENALS: Normal; no mass. KIDNEYS: Mild renal atrophy bilaterally. No hydronephrosis. URINARY BLADDER: Normal contour. GASTROINTESTINAL TRACT: No bowel obstruction, free air, significant free fluid or abscess. Moderate stool retained throughout the colon. APPENDIX: Normal appendix. LYMPH NODES: No lymphadenopathy. MUSCULOSKELETAL: Mild lumbosacral degenerative changes. OTHER: Aortoiliac atherosclerosis. Right-sided venous catheter has its tip in the right atrium. IMPRESSION: Mild interstitial pulmonary edema. Areas of nodularity in the posterior medial aspect of the left upp er lobe may be related to superimposed infection.
[2025-03-02 18:51] LABS: Influenza A Ag Negative; Influenza B Ag Negative; SARS-CoV-2 Antigen Rapid Res Negative (Negative)
[2025-03-02] MEDS ORDERED: METOPROLOL TARTRATE 5 MG/5 ML INJ IV ONE (19:13)
--- NOTE | 2025-03-02 19:21 | EDPHYS ---
Physician Documentation [facility] Name: Nely Quinones Age: 39 yrs Sex: Female : 1985 Arrival Date: 03/02/2025 Time: 15:49 Bed 3 Private MD: ED Physician Serge Neil HPI: 03/02 16:25 This 39 yrs old Black Female presents to ER via Ambulatory with complaints of Post cp Surgical Pain. 16:25 The patient reports fever, with an emergency department temperature of 103.2 degrees cp Fahrenheit. Onset: The symptoms/episode began/occurred 2 day(s) ago. 16:25 Associated signs and symptoms: Pertinent positives: chills, headache. Severity of cp symptoms: in the emergency department the symptoms are unchanged despite home interventions. Historical: - Allergies: 16:12 No Known Allergies; hb - PMHx: 16:12 chronic kidney disease (Left upper arm fist); Dialysis; MWF; Hypertensive disorder; hb - PSHx: 16:12 section; Left upper arm fistula; hb - Immunization history:: Adult Immunizations up to date. - Infectious Disease History:: Denies. - Social history:: Smoking status: Patient denies any tobacco usage or history of. ROS: 16:30 Constitutional: Positive for body aches, fever, poor PO intake, cp 16:30 Eyes: Negative for injury, pain, redness, and discharge, cp 16:30 Cardiovascular: Negative for chest pain, 16:30 Respiratory: Negative for shortness of breath, wheezing, 16:30 Abdomen/GI: Negative for abdominal pain, vomiting, diarrhea, constipation, 16:30 Neuro: Positive for headache, Negative for altered mental status, 16:30 All other systems are negative, Exam: 16:30 Head/Face: Normocephalic, atraumatic. cp 16:30 Constitutional: The patient appears in no acute distress, alert, awake, well developed, well nourished, obviously ill, 16:30 Eyes: Pupils: equal, round, and reactive to light and accomodation, Conjunctiva: normal, no exudate, no injection, Sclera: no appreciated abnormality, Lids and lashes: appear normal, bilaterally, 16:30 ENT: External ear(s): are unremarkable, Nose: is normal, Mouth: Lips: dry, Oral mucosa: dry, Posterior pharynx: Airway: no evidence of obstruction, patent, 16:30 Neck: ROM/movement: is normal, is supple, without pain, no range of motions limitations, 16:30 Chest/axilla: right side catheter noted. 16:30 Cardiovascular: Rate: tachycardic, Rhythm: regular, 16:30 Respiratory: the patient does not display signs of respiratory distress, Respirations: normal, no use of accessory muscles, no retractions, labored breathing, is not present, Breath sounds: decreased breath sounds, that are mild, throughout, 16:30 Abdomen/GI: Inspection: distension, that is moderate, Palpation: abdomen is soft and non-tender, in all quadrants, 16:30 Skin: surgical wound left upper arm appears with no gross signs of cellulitis and surgical wound left forearm appears with no gross signs of cellulitis. 16:30 Neuro: Orientation: to person, place \T\ time. Mentation: is normal, Motor: moves all fours, strength is normal, 16:55 ECG was reviewed by the Attending Physician. Vital Signs: 16:10 BP 180 / 111; Pulse 135; Resp 20; Temp 103.2(O); Pulse Ox 100% on R/A; hb 17:47 BP 202 / 108; Pulse 121; Resp 24 S; Pulse Ox 100% on R/A; aa5 18:25 BP 196 / 108; Pulse 120; Resp 20; Temp 102.7(A); Pulse Ox 100% on R/A; nh2 18:46 BP 189 / 109; Pulse 120; Resp 21; Temp 102.8(O); Pulse Ox 100% on R/A; nh2 19:04 BP 169 / 108; Pulse 125; Resp 22; Pulse Ox 100% on R/A; nh2 19:18 BP 175 / 106; Pulse 105; Resp 18; Pulse Ox 100% ; mf3 19:54 BP 168 / 105; Pulse 107; Resp 19 S; Pulse Ox 100% on R/A; lg3 21:06 BP 146 / 87; Pulse 119; Resp 20 S; Temp 100(O); Pulse Ox 100% on R/A; lg3 MDM: 16:09 Medical Screening Exam initiated 03/02 16:18 Order name: BNP; Complete Time: 19:00 03/02 19:00 Interpretation: Normal except: NT PRO-BNP 05916. 03/02 16:18 Order name: Blood Culture Adult (2) 03/02 16:18 Order name: CBC with Diff; Complete Time: 19:00 03/02 18:09 Interpretation: Normal except: WBC 11.70; RBC 2.59; HGB 7.7; HCT 23.0; RDW 18.6; MPV cp 7.0; EOSINOPHIL % 20.9; BASO% 1.4; EOSA 2.4. 03/02 16:18 Order name: CMP; Complete Time: 19:00 03/02 19:01 Interpretation: Normal except: NA 135; BUN 36; CRE 5.91; GFR 9; AST 55; ALT 79; ALK cp 204; CA 8.4; ALB 3.0; GLOB 4.9; A/G 0.6. 03/02 16:18 Order name: Lactate w/ 2H reflex if indic.; Complete Time: 19:00 03/02 16:18 Order name: Protime (+inr); Complete Time: 19:00 03/02 19:02 Interpretation: Reviewed. 03/02 16:18 Order name: Ptt, Activated; Complete Time: 19:00 03/02 16:18 Order name: Troponin HS; Complete Time: 19:00 03/02 16:18 Order name: COVID-19 Ag + Flu A+B Ag; Complete Time: 19:00 03/02 17:21 Order name: Glucose, Ancillary Testing; Complete Time: 17:23 [facility] 03/02 17:52 Order name: CBC Smear Scan; Complete Time: 19:00 [facility] 03/02 16:18 Order name: Chest Single View XRAY; Complete Time: 17:23 03/02 17:23 Interpretation: Report review. 03/02 18:11 Order name: CT Chest Abdomen Pelvis W/O Contrast; Complete Time: 19:00 03/02 19:02 Interpretation: Report reviewed. 03/02 18:12 Order name: CT Head Brain wo Cont; Complete Time: 19:00 03/02 19:02 Interpretation: Report reviewed. 03/02 16:18 Order name: Accucheck; Complete Time: 17:46 03/02 16:18 Order name: Cardiac monitoring; Complete Time: 16:52 03/02 16:18 Order name: EKG - Nurse/Tech; Complete Time: 16:52 cp 03/02 16:18 Order name: IV Saline Lock - Large Bore; Complete Time: 17:46 cp 03/02 16:18 Order name: Labs collected and sent; Complete Time: 17:46 cp 03/02 16:18 Order name: O2 Per Protocol; Complete Time: 16:52 cp 03/02 16:18 Order name: O2 Sat Monitoring; Complete Time: 16:52 cp 03/02 16:18 Order name: Vital Signs; Complete Time: 16:52 cp 03/02 18:11 Order name: Vital Signs: please update to include temp; Complete Time: 18:27 cp EC:55 Rate is 124 beats/min. Rhythm is regular. SC interval is normal. QRS interval is cp normal. QT interval is normal. T waves are Inverted in lead aVR. Interpreted by me. Reviewed by me. Administered Medications: 16:23 CANCELLED (Physician Discretion): meropenem1 grams IV at calculated rate once; (mix in cp NS 100 mL) empiric treatment 18:00 Drug: NS 0.9% IV 250 ml IV at bolus once; to be given as a bolus over 60 minutes Route: nh2 IV; Rate: bolus; Site: right antecubital; 19:00 Follow up: Response: No adverse reaction; IV Status: Completed infusion; IV Intake: lg3 250ml 18:00 Drug: Meropenem IV 500 mg IV at calculated rate once; (mix in NS 100 mL) empiric nh2 treatment Route: IV; Rate: calculated rate; Site: right antecubital; 21:18 Follow up: Response: No adverse reaction; IV Status: Completed infusion; IV Intake: lg3 100ml 18:15 Drug: Acetaminophen PO 1000 mg PO once Route: PO; nh2 18:54 Follow up: Response: No adverse reaction nh2 18:23 Drug: morphine IVP or IV 4 mg IVP once over 4 mins Route: IVP; Infused Over: 4 mins; nh2 Site: right antecubital; 18:54 Follow up: Response: Pain is unchanged, physician notified nh2 18:54 Drug: hydrALAZINE IVP 10 mg IVP once; if systolic pressure >180 Route: IVP; Site: right nh2 antecubital; 19:04 Follow up: Response: No adverse reaction; Blood pressure is lowered nh2 19:17 Drug: Metoprolol IVP 5 mg IVP once; Hold for SBP <100 or HR <60. Route: IVP; Site: lg3 right antecubital; 20:47 Follow up: Response: No adverse reaction lg3 19:30 Drug: morphine IVP or IV 4 mg IVP once over 4 mins Route: IVP; Infused Over: 4 mins; lg3 Site: right antecubital; 20:47 Follow up: Response: No adverse reaction; Marked relief of symptoms lg3 Disposition: 03/03 07:30 Co-signature as Attending Physician, Serge Neil MD I reviewed the patient's care rn provided by the Advanced Practice Provider and agree with the diagnosis and treatment plan. Disposition Summary: 03/02/25 19:20 Transfer Ordered Notes: Transfer Location: [facility] cp Reason: Higher level of care cp Condition: Stable cp Problem: new cp Symptoms: have improved cp Accepting Physician: DR Rosales(03/02/25 21:18) lg3 Diagnosis - Fever presenting with conditions classified elsewhere cp - Pneumonia in diseases classified elsewhere cp - Severe sepsis without septic shock cp Forms: - Medication Reconciliation Form cp - SBAR form cp Signatures: Dispatcher [employer] EDSerge Fair MD MD rn Page, Corey, PA-C PALino cp Toshia Bryant RN CHELA Roxanne Hopper RN RN lg3 Harsh Moncada Jr, RN RN nh2 Corrections: (The following items were deleted from the chart) 03/02 16:19 16:19 PROBNP+C.LAB.BRZ ordered. EDMS EDMS 16:19 16:19 BLOOD CULTURE*+BA.LAB.BRZ ordered. EDMS EDMS 16:19 16:19 CBC+H.LAB.BRZ ordered. EDMS EDMS 16:19 16:19 COMPREHENSIVE METABOLIC PANEL+C.LAB.BRZ ordered. EDMS EDMS 16:19 16:19 LACTATE+C.LAB.BRZ ordered. EDMS EDMS 16:19 16:19 PROTIME (+INR)+COAG.LAB.BRZ ordered. EDMS EDMS 16:19 16:19 PTT, ACTIVATED+COAG.LAB.BRZ ordered. EDMS EDMS 16:19 16:19 Troponin High Sensitivity+C.LAB.BRZ ordered. EDMS EDMS 16:19 16:19 COVID-19 Ag + Flu A+B Ag+I.LAB.BRZ ordered. EDMS EDMS 16:19 16:19 Chest Single View+RAD.RAD.BRZ ordered. EDMS EDMS 16:23 16:18 Meropenem IV 1 grams IV at calculated rate once; (mix in NS 100 mL) empiric cp treatment ordered. cp 19:24 19:20 doctor cp cp 19:30 19:24 DR Rosales cp cp 20:48 16:18 Rosales ordered. cp lg3 21:18 19:30 DR Rosales cp lg3
--- NOTE | 2025-03-02 19:21 | ER ---
Nurse's Notes [facility] Name: Nely Quinones Age: 39 yrs Sex: Female : 1985 Arrival Date: 03/02/2025 Time: 15:49 Bed 3 Private MD: Diagnosis: Fever presenting with conditions classified elsewhere;Pneumonia in diseases classified elsewhere;Severe sepsis without septic shock Presentation: 03/02 16:10 Chief complaint: Fever and chills x 2 days. Had left arm fistula revision and dulce hb catheter placed last week at [facility]. Coronavirus screen: At this time, the client does not indicate any symptoms associated with coronavirus-19. Ebola Screen: No symptoms or risks identified at this time. Initial Sepsis Screen: Does the patient meet any 2 criteria? Yes Does the patient have a suspected source of infection? No. Patient's initial sepsis screen is negative. Risk Assessment: Do you want to hurt yourself or someone else? Patient reports no desire to harm self or others. Onset of symptoms was March 01, 2025. 16:10 Method Of Arrival: Ambulatory hb 16:10 Acuity: LORENA 2 hb Historical: - Allergies: 16:12 No Known Allergies; hb - PMHx: 16:12 chronic kidney disease (Left upper arm fist); Dialysis; MWF; Hypertensive disorder; hb - PSHx: 16:12 section; Left upper arm fistula; hb - Immunization history:: Adult Immunizations up to date. - Infectious Disease History:: Denies. - Social history:: Smoking status: Patient denies any tobacco usage or history of. Screenin:12 [facility] ED Fall Risk Assessment (Adult) History of falling in the last 3 months, nh2 including since admission No falls in past 3 months (0 pts) Confusion or Disorientation No (0 pts) Intoxicated or Sedated No (0 pts) Impaired Gait No (0 pts) Mobility Assist Device Used No (0 pt) Altered Elimination No (0 pt) Score/Fall Risk Level 0 - 2 = Low Risk Oriented to surroundings, Maintained a safe environment, Educated pt \T\ family on fall prevention, incl call for assistance when getting out of bed, Assessed \T\ reinforced patient's understanding of fall precautions. Abuse screen: Denies threats or abuse. Denies injuries from another. Nutritional screening: No deficits noted. Tuberculosis screening: No symptoms or risk factors identified. Assessment: 17:12 General: Appears uncomfortable, ill, Behavior is cooperative, appropriate for age, nh2 restless, Reports chills for fever for feeling ill for. Pain: Complains of pain in abdomen Pain radiates to chest, arms, head, legs Pain currently is 8 out of 10 on a pain scale. Quality of pain is described as aching, Pain began 2-3 days ago. Is intermittent. Neuro: Level of Consciousness is awake, alert, obeys commands, Oriented to person, place, time, situation, Appropriate for age Reports dizziness, headache. Cardiovascular: Reports chest pain, Patient's skin is warm and dry. Rhythm is sinus tachycardia Dialysis shunt: in the left bicep, with palpable thrill, with auscultated bruit, with no erythema, with no edema, no bleeding noted 14 crystal noted to site, pt states she recently had a dialysis fistula revision at [facility] on 02/18/2025. Dialysis catheter noted to right upper chest. Respiratory: Reports shortness of breath on exertion cough that is dry, Airway is patent Trachea midline Respiratory effort is even, unlabored, Respiratory pattern is regular, symmetrical. GI: Abdomen is round non-distended. : No signs and/or symptoms were reported regarding the genitourinary system. EENT: No signs and/or symptoms were reported regarding the EENT system. Derm: Skin is dry, Skin temperature is hot. Derm: Musculoskeletal: Range of motion: intact in all extremities. 18:12 Reassessment: Patient and/or family updated on plan of care and expected duration. Pain nh2 level reassessed. Patient is alert, oriented x 3, equal unlabored respirations, skin warm/dry/pink. pain reported to provider. 18:32 Reassessment: pt transported to CT via stretcher. nh2 19:20 General: Appears in no apparent distress. uncomfortable, Behavior is calm, cooperative. lg3 Pain: Complains of pain in head and abdomen Pain currently is 8 out of 10 on a pain scale. Neuro: No deficits noted. Carter Agitation-Sedation Scale (RASS): 0 - Alert and Calm Level of Consciousness is awake, alert, obeys commands, Oriented to person, place, time, situation, Reports headache. Cardiovascular: No deficits noted. Capillary refill < 3 seconds Clubbing of nail beds is absent JVD is absent Patient's skin is warm and dry. Respiratory: No deficits noted. Airway is patent Respiratory effort is even, unlabored, Respiratory pattern is regular, symmetrical. GI: No deficits noted. Abdomen is round non-distended, Reports lower abdominal pain, upper abdominal pain. : No signs and/or symptoms were reported regarding the genitourinary system. EENT: No deficits noted. No signs and/or symptoms were reported regarding the EENT system. Derm: Skin is intact, is healthy with good turgor, Skin is diaphoretic, Skin is normal, Skin temperature is warm Wound noted left arm. Musculoskeletal: No deficits noted. Circulation, motion, and sensation intact. Range of motion: intact in all extremities. Vital Signs: 16:10 BP 180 / 111; Pulse 135; Resp 20; Temp 103.2(O); Pulse Ox 100% on R/A; hb 17:47 BP 202 / 108; Pulse 121; Resp 24 S; Pulse Ox 100% on R/A; aa5 18:25 BP 196 / 108; Pulse 120; Resp 20; Temp 102.7(A); Pulse Ox 100% on R/A; nh2 18:46 BP 189 / 109; Pulse 120; Resp 21; Temp 102.8(O); Pulse Ox 100% on R/A; nh2 19:04 BP 169 / 108; Pulse 125; Resp 22; Pulse Ox 100% on R/A; nh2 19:18 BP 175 / 106; Pulse 105; Resp 18; Pulse Ox 100% ; mf3 19:54 BP 168 / 105; Pulse 107; Resp 19 S; Pulse Ox 100% on R/A; lg3 21:06 BP 146 / 87; Pulse 119; Resp 20 S; Temp 100(O); Pulse Ox 100% on R/A; lg3 ED Course: 15:52 Patient arrived in ED. ts1 15:54 [facility] cp 15:54 Serge Neil MD is Attending Physician. cp 16:10 Iona Jackson, CHELA is Primary Nurse. iw 16:12 Triage completed. hb 16:56 Chest Single View XRAY In Process Unspecified. EDMS 17:03 Missed attempt(s): 22 gauge Bleeding controlled, band aid applied, catheter tip intact. nh2 17:12 Patient has correct armband on for positive identification. Bed in low position. Call nh2 light in reach. Side rails up X 1. Provided Education on: using call light for assistance. 17:15 Initial lab(s) drawn, by ED staff, sent to lab. First set of blood cultures drawn. nh2 17:15 Arm band placed on right wrist. nh2 17:35 Second set of blood cultures drawn by ED staff. nh2 17:40 Missed attempt(s): 24 gauge in right wrist. Bleeding controlled, band aid applied, aa5 catheter tip intact. 17:45 Inserted saline lock: 22 gauge in right antecubital area, using aseptic technique. aa5 Flushed with 10 mL NS. 18:23 COVID-19 Ag + Flu A+B Ag Sent. nh2 18:40 CT Chest Abdomen Pelvis W/O Contrast In Process Unspecified. EDMS 18:40 CT Head Brain wo Cont In Process Unspecified. EDMS 19:[address] [facility]. [facility] 19:20 Door closed. Noise minimized. Pillow given. lg3 21:17 No provider procedures requiring assistance completed. Patient transferred, IV remains lg3 in place. 03/03 00:43 PT WAS ACCEPTED TO [facility]. ACCEPTING \T\ 1923. ACCEPTING ADMIN JACQUES. [facility] \T\193. [facility] TO TRANSFER PT. Administered Medications: 03/02 16:23 CANCELLED (Physician Discretion): meropenem1 grams IV at calculated rate once; (mix in cp NS 100 mL) empiric treatment 18:00 Drug: NS 0.9% IV 250 ml IV at bolus once; to be given as a bolus over 60 minutes Route: nh2 IV; Rate: bolus; Site: right antecubital; 19:00 Follow up: Response: No adverse reaction; IV Status: Completed infusion; IV Intake: lg3 250ml 18:00 Drug: Meropenem IV 500 mg IV at calculated rate once; (mix in NS 100 mL) empiric nh2 treatment Route: IV; Rate: calculated rate; Site: right antecubital; 21:18 Follow up: Response: No adverse reaction; IV Status: Completed infusion; IV Intake: lg3 100ml 18:15 Drug: Acetaminophen PO 1000 mg PO once Route: PO; nh2 18:54 Follow up: Response: No adverse reaction nh2 18:23 Drug: morphine IVP or IV 4 mg IVP once over 4 mins Route: IVP; Infused Over: 4 mins; nh2 Site: right antecubital; 18:54 Follow up: Response: Pain is unchanged, physician notified nh2 18:54 Drug: hydrALAZINE IVP 10 mg IVP once; if systolic pressure >180 Route: IVP; Site: right nh2 antecubital; 19:04 Follow up: Response: No adverse reaction; Blood pressure is lowered nh2 19:17 Drug: Metoprolol IVP 5 mg IVP once; Hold for SBP <100 or HR <60. Route: IVP; Site: lg3 right antecubital; 20:47 Follow up: Response: No adverse reaction lg3 19:30 Drug: morphine IVP or IV 4 mg IVP once over 4 mins Route: IVP; Infused Over: 4 mins; lg3 Site: right antecubital; 20:47 Follow up: Response: No adverse reaction; Marked relief of symptoms lg3 Medication: 17:12 VIS not applicable for this client. nh2 Intake: 19:00 IV: 250ml; Total: 250ml. lg3 21:18 IV: 100ml; Total: 350ml. lg3 Outcome: 19:20 ER care complete, transfer ordered by MD. wilson 21:18 Transferred by ground EMS to [facility], Transfer form lg3 completed. 21:18 Condition: stable 21:18 Instructed on the need for transfer, 21:18 Patient left the ED. lg3 Signatures: Dispatcher [employer] EDMS Iona Jackson RN RN Amada Gage RN RN aa5 Oscar Bhat, LINDA PAToshia Donovan cp, RN RN hb Able, Lacie, RN RN lg3 Reina Mckeon PAS PAS 1 Rani Scott [facility] Harsh Moncada Jr, RN RN [facility] Ca Costa RN RN mf3 Corrections: (The following items were deleted from the chart) 17:24 17:12 Inserted nh2 nh2 17:26 17:12 General: Appears uncomfortable, ill, Behavior is cooperative, appropriate for nh2 age, restless, nh2 17:26 17:12 Pain: Denies pain. nh2 nh2 17:26 17:12 Neuro: Level of Consciousness is awake, alert, obeys commands, Oriented to nh2 person, place, time, situation, Appropriate for age nh2 17:26 17:12 Cardiovascular: Patient's skin is warm and dry. Rhythm is sinus tachycardia nh2 nh2 17: 17:12 Respiratory: Airway is patent Trachea midline Respiratory effort is even, nh2 unlabored, Respiratory pattern is regular, symmetrical, Denies cough, shortness of breath nh2 17: 17:12 GI: Abdomen is round non-distended, nh2 nh2 18:27 17:12 Pain: Complains of pain in abdomen Pain radiates to arms, head, legs Pain nh2 currently is 8 out of 10 on a pain scale. Quality of pain is described as aching, Pain began 2-3 days ago. Is intermittent, nh2 18:33 17:03 Missed attempt(s): 22 gauge Bleeding controlled, band aid applied, catheter tip nh2 intact. nh2 18:39 17:12 Cardiovascular: Reports chest pain, Patient's skin is warm and dry. Rhythm is nh2 sinus tachycardia nh2
[2025-03-02 21:24] VITALS: O2SAT 100
[2025-03-02 21:33] VITALS: BP 146/87; TEMP 100
== END 2025-03-02 21:18 | disposition short-term general hospital (02) ==
LOC: ER 15:49
DX: A41.9 Sepsis, unspecified organism (principal); R65.20 Severe sepsis without septic shock; J18.9 Pneumonia, unspecified organism; R50.9 Fever, unspecified; I10 Essential (primary) hypertension; Z98.890 Other specified postprocedural states; Z11.52 Encounter for screening for COVID-19
CPT/HCPCS: 96365; 93005; 87040 ×2; 85025; 36415; 85610; 82947; 83605; 85730; 84484; 80053; 83880; 70450; 71250; 74176; 71045; 96375; 99285; 96366; 87428; J0360; J7050

== ENCOUNTER 2025-03-20 01:52 | Inpatient (IN) | payer OTHER ==
[2025-03-20] MEDS ORDERED: HYDRALAZINE HCL 20 MG/ML VIAL ONE ×2 (02:34→04:05)
[2025-03-20] MEDS ORDERED: ONDANSETRON 4 MG/2 ML VIAL ONE (02:34)
[2025-03-20] MEDS ORDERED: FUROSEMIDE 20 MG/ 2ML VIAL ONE (02:35)
[2025-03-20] MEDS ORDERED: MORPHINE 4 MG/ML SYR ONE (02:35)
[2025-03-20 03:42] LABS: Hemoglobin 8.3 g/dL (12.0-15.0); White Blood Count 8.80 thou/uL (4.3-10.9)
[2025-03-20 03:50] LABS: Absolute Lymphocytes (CBC) 0.8 K/uL (0.7-4.9); Hematocrit 24.7 % (36.0-45.0); MCH 29.6 pg (27.0-35.0); MCHC 33.5 g/dL (32.0-36.0); MCV 88.4 fL (80-100); MPV 7.3 fL (7.6-11.3); Nucleated RBC Absolute Count 0.0 (0-0); Nucleated Red Blood Cells % 0.1 % (0-0); RBC Red Blood Cell Count 2.80 M/uL (3.86-4.86)
[2025-03-20 04:10] LABS: ALT/SGPT 73.0 U/L (13-56); AST/SGOT 57.0 U/L (15-37); Albumin 3.2 g/dL (3.4-5.0); Albumin/Globulin Ratio 0.7 (1.1-1.8); Alkaline Phosphatase 189.0 U/L (45-117); Anion Gap 11.9 mEq/L (5.0-15.0); BUN Blood Urea Nitrogen 40.0 mg/dL (7-18); Bilirubin Indirect, Calculated 0.2 mg/dL (0.2-0.8); Globulin 4.9 g/dL (2.3-3.5); Glucose Level 138.0 mg/dL (74-106); Magnesium 2.2 mg/dL (1.6-2.4); NT PRO-BNP 9513.0 pg/mL (<125); Troponin High Sensitivity 26.7 pg/mL (<58.9)
[2025-03-20 04:13] LABS: Potassium 6.9 mEq/L (3.5-5.1)
[2025-03-20] MEDS ORDERED: INSULIN REGULAR (HUMAN) 100 UNIT/ML ONE (04:21)
[2025-03-20] MEDS ORDERED: CALCIUM GLUCONATE 1 GM IVPB 1 GM/50 ML BAG IV ONE (04:21)
[2025-03-20] MEDS ORDERED: D50W 25 GM/50 ML SYRINGE IV ONE (04:22)
[2025-03-20] MEDS ORDERED: METOCLOPRAMIDE 10 MG/2mL INJ ONE (04:25)
[2025-03-20] MEDS ORDERED: HYDROCODONE/APAP 5/325 MG TAB ONE (04:25)
[2025-03-20 04:26] LABS: Blood Morphology Comment NOT SEEN (NOT SEEN); Differential Total Cells Count 100; Segmented Neutrophils 91 % (40-80)
[2025-03-20] MEDS ORDERED: NA CHLORIDE 0.9% 50 ML ONE (04:26)
--- NOTE | 2025-03-20 04:45 | EDPHYS ---
Physician Documentation [facility] Name: Nely Quinones Age: 39 yrs Sex: Female : 1985 Arrival Date: 03/20/2025 Time: 01:52 Bed 5 Private MD: ED Physician Steven Block HPI: 03/20 02:01 This 39 yrs old Black Female presents to ER via Unassigned with complaints of Breathing sp4 Difficulty. 04:42 Patient with end-stage renal disease on hemodialysis presents with acute onset of sp4 shortness of breath nausea vomiting headache. Patient is scheduled to get her hemodialysis today last hemodialysis was Tuesday 2 days ago. 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 - Infectious Disease History:: Denies. - Social history:: Smoking status: Patient denies any tobacco usage or history of. - Family history:: not pertinent. ROS: 04:48 Constitutional: Negative for fever, chills, and weight loss, positive dyspnea, positive sp4 respiratory distress 04:48 All other systems are negative, Exam: 04:42 ECG was reviewed by the Attending Physician. EKG at 0 235 normal sinus rhythm at rate sp4 92 , peaked T waves observed otherwise unremarkable otherwise unremarkable. 04:48 Constitutional: This is a well developed, well nourished patient who is awake, alert, sp4 moderate distress, ill-appearing female, dyspnea, tachypnea, tachycardia on exam, manifested with active vomiting on exam, left arm hemodialysis fistula with palpable thrill Head/Face: Normocephalic, atraumatic. Eyes: Pupils equal round and reactive to light, extra-ocular motions intact. Lids and lashes normal. Conjunctiva and sclera are not injected. Cornea within normal limits. Periorbital areas with no swelling, redness, or edema. ENT: Nares patent. No nasal discharge, no septal abnormalities noted. Tympanic membranes are normal and external auditory canals are clear. Oropharynx with no redness, swelling, or masses, exudates, or evidence of obstruction, uvula midline. Mucous membranes moist. Neck: Trachea midline, no thyromegaly or masses palpated, and no cervical lymphadenopathy. Supple, full range of motion without nuchal rigidity, or vertebral point tenderness. Chest/axilla: Normal chest wall appearance and motion. Nontender with no deformity. No lesions are appreciated. Cardiovascular: Positive tachycardia, positive left arm hemodialysis fistula. No gallops, murmurs, or rubs. No pulse deficits. Respiratory: Lungs have equal breath sounds bilaterally, clear to auscultation and percussion. No rales, rhonchi or wheezes noted. No increased work of breathing, no retractions or nasal flaring. Abdomen/GI: Soft, with normal bowel sounds. No distension or tympany. No guarding or rebound. No evidence of tenderness throughout. Back: No spinal tenderness. No costovertebral tenderness. Skin: Warm, dry with normal turgor. Normal color with no rashes, no lesions, and no evidence of cellulitis. MS/ Extremity: Pulses equal, no cyanosis. Neurovascular intact. Full, normal range of motion. Neuro: Awake and alert, GCS 15, oriented to person, place, time, and situation. Cranial nerves II-XII grossly intact. Motor strength 5/5 in all extremities. Sensory grossly intact. Psych: Awake, alert, with orientation to person, place and time. Behavior, mood, and affect are within normal limits Vital Signs: 02:08 BP 168 / 113; Pulse 99; Resp 28; Temp 98.3; Pulse Ox 99% on R/A; Weight 73.03 kg; al5 Height 5 ft. 2 in. ; Pain 10/10; 02:45 BP 178 / 121; Pulse 100; Resp 32; Pulse Ox 100% on 3 lpm NC; kb4 03:00 BP 144 / 109; Pulse 103; Resp 29; Pulse Ox 100% 3 lpm ; kb4 03:30 BP 174 / 137; Pulse 102; Resp 32; Pulse Ox 100% on 3 lpm NC; kb4 04:00 BP 168 / 115; Pulse 101; Resp 28; Pulse Ox 100% on 3 lpm NC; kb4 05:13 BP 148 / 91; Pulse 106; Resp 18; Pulse Ox 100% on 3 lpm NC; kb4 06:06 BP 155 / 98; Pulse 112; Resp 26; Pulse Ox 99% on 3 lpm NC; nh2 07:00 BP 161 / 100; Pulse 110; Resp 28; Pulse Ox 100% on 3 lpm NC; nh2 07:59 BP 141 / 91; Pulse 108; Resp 28; Pulse Ox 100% on 3 lpm NC; nh2 08:48 BP 154 / 94; Pulse 104; Resp 28; Pulse Ox 100% on 3 lpm NC; nh2 02:08 Body Mass Index 29.45 (73.03 kg, 157.48 cm) al5 02:08 Pain Scale: Adult al5 Hughes Coma Score: 04:48 Eye Response: spontaneous(4). Motor Response: obeys commands(6). Verbal Response: sp4 oriented(5). Total: 15. MDM: 02:06 Medical Screening Exam initiated sp4 04:47 ED course: EXAM: XR Chest, 1 View CLINICAL HISTORY: CHEST PAIN TECHNIQUE: Frontal view sp4 of the chest. COMPARISON: No relevant prior studies available. FINDINGS: Lungs: Mild central pulmonary vascular and interstitial prominence and hazy bilateral perihilar opacities. Pleural space: Unremarkable. No pneumothorax. Heart: The cardiac silhouette is mildly enlarged, in part accentuated by portable technique. Mediastinum: Unremarkable. Normal mediastinal contour. Bones/joints: Remote distal right clavicular fracture. No acute fracture. IMPRESSION: Findings which may be related to mild pulmonary congestion. Superimposed infection not excluded. . 04:48 Differential diagnosis: Anxiety Reaction asthma, Bronchitis CHF exacerbation, Chronic sp4 Obstructive Pulmonary Disease pulmonary edema, Pulmonary Embolism reactive airway disease. Data reviewed: vital signs, nurses notes, lab test result(s), EKG, radiologic studies, plain films. 04:49 Consideration of Admission/Observation Patient was admitted/placed on observation. sp4 Escalation of care including admission/observation considered. Management of patient was discussed with the following: Hospitalist: Marcial DANIELLE . Blender/Braze Applicator: Saleem DANIELLE . 03/20 02:02 Order name: Basic Metabolic Panel; Complete Time: 04:14 sp4 03/20 02:02 Order name: CBC with Diff; Complete Time: 04:45 sp4 03/20 02:02 Order name: LFT's; Complete Time: 04:14 sp4 03/20 02:02 Order name: Magnesium; Complete Time: 04:14 sp4 03/20 02:02 Order name: NT PRO-BNP; Complete Time: 04:14 sp4 03/20 02:02 Order name: PT-INR; Complete Time: 06:56 sp4 03/20 02:02 Order name: Troponin HS; Complete Time: 04:14 sp4 03/20 02:11 Order name: Blood Culture Adult (2) sp4 03/20 02:11 Order name: Lactate w/ 2H reflex if indic.; Complete Time: 04:03 sp4 03/20 02:24 Order name: Lipase; Complete Time: 04:03 sp4 03/20 03:57 Order name: Manual Differential; Complete Time: 04:45 EDMS 03/20 05:56 Order name: CBC with Automated Diff EDMS 03/20 05:56 Order name: CBC with Automated Diff EDMS 03/20 05:56 Order name: Comprehensive Metabolic Panel EDMS 03/20 05:56 Order name: Comprehensive Metabolic Panel EDMS 03/20 06:07 Order name: Glucose, Ancillary Testing; Complete Time: 06:56 EDMS 03/20 02:02 Order name: XRAY Chest (1 view); Complete Time: 06:56 sp4 03/20 05:56 Order name: CONS Physician Consult EDMS 03/20 02:02 Order name: Cardiac monitoring; Complete Time: 02:30 sp4 03/20 02:02 Order name: EKG - Nurse/Tech; Complete Time: 02:42 sp4 03/20 02:02 Order name: IV Saline Lock; Complete Time: 02:30 sp4 03/20 02:02 Order name: Labs collected and sent; Complete Time: 02:30 sp4 03/20 02:02 Order name: O2 Per Protocol; Complete Time: 02:30 sp4 03/20 02:02 Order name: O2 Sat Monitoring; Complete Time: 02:30 sp4 03/20 03:53 Order name: Labs - recollect needed: BLUE TOP ; Complete Time: 05:13 kmf EC:35 Rate is 92 beats/min. Rhythm is regular, Normal Sinus Rhythm. QRS [place] is Normal. [place] sp4 interval is normal. QRS interval is normal. QT interval is normal. No Q waves. T waves are Normal. No ST changes noted. Clinical impression: No evidence of ischemia. Interpreted by me. Reviewed by me. Administered Medications: 02:45 Drug: morphine IVP or IV 4 mg IVP once over 4 mins Route: IVP; Infused Over: 4 mins; 4 Site: right antecubital; 04:08 Follow up: Response: No adverse reaction [facility] 02:45 Drug: hydrALAZINE IVP 10 mg IVP once Route: IVP; Site: right antecubital; [facility] 04:08 Follow up: Response: No adverse reaction 4 02:45 Drug: Ondansetron IVP 4 mg IVP once; over 2 minutes Route: IVP; Site: right antecubital;[facility] 04:08 Follow up: Response: No adverse reaction [facility] 02:45 Drug: Furosemide IVP 100 mg IVP once; give over 2 minutes Route: IVP; Site: right [facility] antecubital; 04:08 Follow up: Response: No adverse reaction [facility] 04:08 Drug: hydrALAZINE IVP 20 mg IVP once Route: IVP; Site: right antecubital; [facility] 08:16 Follow up: Response: No adverse reaction db 04:32 Drug: Calcium Gluconate IVPB 1 grams IVPB once over 60 mins; (mix in NS 100 mL) Route: [facility] IVPB; Infused Over: 60 mins; Site: right antecubital; 08:16 Follow up: Response: No adverse reaction; IV Status: Completed infusion; IV Intake: db 100ml 04:32 Drug: HYDROcodone-acetaminophen PO 5 mg-325 mg 1 tabs PO once Route: PO; [facility] 08:16 Follow up: Response: No adverse reaction db 05:05 Drug: D50W IVP 50 ml IVP once; (1 amp) Route: IVP; Site: right antecubital; [facility] 08:16 Follow up: Response: No adverse reaction db 05:05 Drug: metoCLOPramide IVP 10 mg IVP once; over 1 to 2 minutes Route: IVP; Site: right [facility] antecubital; 08:16 Follow up: Response: No adverse reaction db 05:06 Drug: Insulin Regular Human IVP 5 units IVP once {Co-Signature: [email or web address] (Nini Pathak kb4 RN).} Route: IVP; Site: right antecubital; 08:16 Follow up: Response: No adverse reaction db 05:07 Drug: Sodium Bicarbonate IVP 1 amp IVP once; (50 mL); equals 50 mEq Route: IVP; Site: [facility] right antecubital; 08:16 Follow up: Response: No adverse reaction db Disposition: 06:56 Critical Care:. sp4 21:05 Chart complete. sp4 Disposition Summary: 03/20/25 04:45 Hospitalization Ordered Notes: Hospitalization Status: Observation sp4 Provider: Ab Ceja Location: Telemetry/MedSurg (observation) sp4 Condition: Serious sp4 Problem: new sp4 Symptoms: have improved sp4 Bed/Room Type: Standard sp4 Room Assignment: 208(03/20/25 07:29) bd Diagnosis - End-stage renal disease on hemodialysis, acute volume overload, acute diastolic sp4 heart failure - Acute hyperkalemia, acute dyspnea with respiratory distress sp4 Forms: - Medication Reconciliation Form sp4 - SBAR form sp4 - Leadership Thank You Letter sp4 Critical care time excluding procedures: 06:56 Critical care time: Bedside Care: 36 minutes, Consultation: 12 minutes, Family sp4 Intervention: 12 minutes. Total time: 60 minutes Signatures: Dispatcher [employer] EDZandra De Santiago Sergey, MD MD sp4 Rani Scott [facility] Emily Noyola RN RN al5 Katherine Dickson RN RN kb4 Neha Aleman RN db Nini Ptahak RN kd3 Corrections: (The following items were deleted from the chart) 02:02 02:02 BASIC METABOLIC PANEL+C.LAB.BRZ ordered. EDMS EDMS 02:02 02:02 CBC+H.LAB.BRZ ordered. EDMS EDMS 02:02 02:02 HEPATIC FUNCTION+C.LAB.BRZ ordered. EDMS EDMS 02:02 02:02 MAGNESIUM+C.LAB.BRZ ordered. EDMS EDMS 02:02 02:02 PROBNP+C.LAB.BRZ ordered. EDMS EDMS 02:02 02:02 PROTIME (+INR)+COAG.LAB.BRZ ordered. EDMS EDMS 02:02 02:02 Troponin High Sensitivity+C.LAB.BRZ ordered. EDMS EDMS 02:02 02:02 Chest Single View+RAD.RAD.BRZ ordered. EDMS EDMS 07:29 04:45 sp4 bd
--- NOTE | 2025-03-20 04:45 | ER ---
Nurse's Notes [facility] Name: Nely Quinones Age: 39 yrs Sex: Female : 1985 Arrival Date: 03/20/2025 Time: 01:52 Bed 5 Private MD: Diagnosis: End-stage renal disease on hemodialysis, acute volume overload, acute diastolic heart failure;Acute hyperkalemia, acute dyspnea with respiratory distress Presentation: 03/20 02:08 Chief complaint: Patient states: shortness of breath that started today. Last dialysis al5 was Tuesday. Scheduled for 1000 today. Coronavirus screen: Client denies travel out of the [place] in the last 14 days. At this time, the client does not indicate any symptoms associated with coronavirus-19. Ebola Screen: Patient negative for fever greater than or equal to 101.5 degrees Fahrenheit, and additional compatible Ebola Virus Disease symptoms Patient denies exposure to infectious person. Patient denies travel to an Ebola-affected area in the 21 days before illness onset. No symptoms or risks identified at this time. Initial Sepsis Screen: Does the patient meet any 2 criteria? RR > 20 per min. HR > 90 bpm. Yes Does the patient have a suspected source of infection? No. Patient's initial sepsis screen is negative. Risk Assessment: Do you want to hurt yourself or someone else? Patient reports no desire to harm self or others. Onset of symptoms was March 19, 2025. 02:08 Method Of Arrival: Ambulatory al5 02:08 Acuity: [place] 3 al5 Triage Assessment: 02:10 General: Appears in no apparent distress. uncomfortable, Behavior is calm, cooperative, al5 appropriate for age. Pain: Complains of pain in back and chest Pain does not radiate. Pain currently is 10 out of 10 on a pain scale. Respiratory: Reports shortness of breath at rest Onset: The symptoms/episode began/occurred yesterday, the patient has mild shortness of breath. 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 - Infectious Disease History:: Denies. - Social history:: Smoking status: Patient denies any tobacco usage or history of. - Family history:: not pertinent. Screenin:14 [facility] ED Fall Risk Assessment (Adult) History of falling in the last 3 months, kb4 including since admission No falls in past 3 months (0 pts) Confusion or Disorientation No (0 pts) Intoxicated or Sedated No (0 pts) Impaired Gait No (0 pts) Mobility Assist Device Used No (0 pt) Altered Elimination No (0 pt) Score/Fall Risk Level 0 - 2 = Low Risk. Abuse screen: Denies threats or abuse. Denies injuries from another. Nutritional screening: No deficits noted. Tuberculosis screening: No symptoms or risk factors identified. Assessment: 04:08 Cardiovascular: Rhythm is sinus tachycardia. Respiratory: Airway is patent Respiratory kb4 effort is even, labored, Respiratory pattern is symmetrical, tachypnea. 04:11 Respiratory: Breath sounds are diminished bilaterally. kb4 05:07 Reassessment: No changes from previously documented assessment. Patient and/or family kb4 updated on plan of care and expected duration. Pain level reassessed. Cardiovascular: Patient's skin is warm and dry. Rhythm is sinus tachycardia. Respiratory: Airway is patent Respiratory effort is even, unlabored, Respiratory pattern is regular, symmetrical. 05:57 Reassessment: FSBS 130. kb4 07:10 Reassessment: Patient and/or family updated on plan of care and expected duration. Pain nh2 level reassessed. Patient is alert, oriented x 3, equal unlabored respirations, skin warm/dry/pink. Patient denies pain at this time. 07:10 Pain: Denies pain. Neuro: Level of Consciousness is awake, alert, obeys commands, nh2 Oriented to person, place, time, situation, Appropriate for age. Cardiovascular: Patient's skin is warm and dry. Rhythm is sinus tachycardia. 08:00 Reassessment: Patient appears in no apparent distress at this time. Patient and/or db family updated on plan of care and expected duration. Pain level reassessed. Patient is alert, oriented x 3, equal unlabored respirations, skin warm/dry/pink. PT PROVIDED BREAKFAST. Vital Signs: 02:08 BP 168 / 113; Pulse 99; Resp 28; Temp 98.3; Pulse Ox 99% on R/A; Weight 73.03 kg; al5 Height 5 ft. 2 in. ; Pain 10/10; 02:45 BP 178 / 121; Pulse 100; Resp 32; Pulse Ox 100% on 3 lpm NC; kb4 03:00 BP 144 / 109; Pulse 103; Resp 29; Pulse Ox 100% 3 lpm ; kb4 03:30 BP 174 / 137; Pulse 102; Resp 32; Pulse Ox 100% on 3 lpm NC; kb4 04:00 BP 168 / 115; Pulse 101; Resp 28; Pulse Ox 100% on 3 lpm NC; kb4 05:13 BP 148 / 91; Pulse 106; Resp 18; Pulse Ox 100% on 3 lpm NC; kb4 06:06 BP 155 / 98; Pulse 112; Resp 26; Pulse Ox 99% on 3 lpm NC; nh2 07:00 BP 161 / 100; Pulse 110; Resp 28; Pulse Ox 100% on 3 lpm NC; nh2 07:59 BP 141 / 91; Pulse 108; Resp 28; Pulse Ox 100% on 3 lpm NC; nh2 08:48 BP 154 / 94; Pulse 104; Resp 28; Pulse Ox 100% on 3 lpm NC; nh2 02:08 Body Mass Index 29.45 (73.03 kg, 157.48 cm) al5 02:08 Pain Scale: Adult al5 [place] Coma Score: 04:48 Eye Response: spontaneous(4). Motor Response: obeys commands(6). Verbal Response: sp4 oriented(5). Total: 15. ED Course: 01:57 Patient arrived in ED. gm2 02:01 Steven Block MD is Attending Physician. sp4 02:02 Nini Pathak, CHELA is Primary Nurse. kd3 02:10 Triage completed. al5 02:10 Arm band placed on right wrist. Patient placed in waiting room. al5 02:19 XRAY Chest (1 view) In Process Unspecified. EDMS 02:30 No provider procedures requiring assistance completed. Inserted saline lock: 20 gauge kd3 in right upper arm, using aseptic technique. Blood collected. Flushed with 10 mL NS. 02:30 Lipase Sent. kd3 02:30 Lactate w/ 2H reflex if indic. Sent. kd3 02:30 Blood Culture Adult (2) Sent. kd3 02:30 Troponin HS Sent. kd3 02:30 PT-INR Sent. kd3 02:30 NT PRO-BNP Sent. kd3 02:30 Magnesium Sent. kd3 02:30 LFT's Sent. kd3 02:30 CBC with Diff Sent. kd3 02:30 Basic Metabolic Panel Sent. kd3 04:44 Ab Ceja MD is Hospitalizing Provider. sp4 05:14 Patient has correct armband on for positive identification. Bed in low position. Call kb4 light in reach. Side rails up X 1. 07:00 Provided Education on: using call light for assistance. nh2 08:49 Patient admitted, IV remains in place. nh2 09:01 Client placed on continuous cardiac and pulse oximetry monitoring. NIBP monitoring db applied. unindentured apprentice on. Pulse ox on. NIBP on. Warm blanket given. Administered Medications: 02:45 Drug: morphine IVP or IV 4 mg IVP once over 4 mins Route: IVP; Infused Over: 4 mins; kb4 Site: right antecubital; 04:08 Follow up: Response: No adverse reaction 4 02:45 Drug: hydrALAZINE IVP 10 mg IVP once Route: IVP; Site: right antecubital; kb4 04:08 Follow up: Response: No adverse reaction kb4 02:45 Drug: Ondansetron IVP 4 mg IVP once; over 2 minutes Route: IVP; Site: right antecubital;kb4 04:08 Follow up: Response: No adverse reaction kb4 02:45 Drug: Furosemide IVP 100 mg IVP once; give over 2 minutes Route: IVP; Site: right [facility] antecubital; 04:08 Follow up: Response: No adverse reaction kb4 04:08 Drug: hydrALAZINE IVP 20 mg IVP once Route: IVP; Site: right antecubital; kb4 08:16 Follow up: Response: No adverse reaction db 04:32 Drug: Calcium Gluconate IVPB 1 grams IVPB once over 60 mins; (mix in NS 100 mL) Route: kb4 IVPB; Infused Over: 60 mins; Site: right antecubital; 08:16 Follow up: Response: No adverse reaction; IV Status: Completed infusion; IV Intake: db 100ml 04:32 Drug: HYDROcodone-acetaminophen PO 5 mg-325 mg 1 tabs PO once Route: PO; kb4 08:16 Follow up: Response: No adverse reaction db 05:05 Drug: D50W IVP 50 ml IVP once; (1 amp) Route: IVP; Site: right antecubital; kb4 08:16 Follow up: Response: No adverse reaction db 05:05 Drug: metoCLOPramide IVP 10 mg IVP once; over 1 to 2 minutes Route: IVP; Site: right kb4 antecubital; 08:16 Follow up: Response: No adverse reaction db 05:06 Drug: Insulin Regular Human IVP 5 units IVP once {Co-Signature: kd3 (Nini Pathak4 RN).} Route: IVP; Site: right antecubital; 08:16 Follow up: Response: No adverse reaction db 05:07 Drug: Sodium Bicarbonate IVP 1 amp IVP once; (50 mL); equals 50 mEq Route: IVP; Site: kb4 right antecubital; 08:16 Follow up: Response: No adverse reaction db Medication: 05:13 VIS not applicable for this client. kb4 Intake: 08:16 IV: 100ml; Total: 100ml. db Outcome: 04:45 Decision to Hospitalize by Provider. sp4 08:50 Patient left the ED. nh2 09:01 Admitted to Med/surg db 09:01 Condition: stable 09:01 Instructed on the need for admit, Signatures: Dispatcher [employer] EDNini Stewart, RN RN kd3 Neha Aleman RN CHELA db Steven Block MD MD sp4 Lorenza Vasquez 2 Emily Noyola RN RN [email or web address] Harsh Moncada Jr, RN RN nh2 Katherine Dickson RN RN kb4 Nini Pathak RN kd3 Corrections: (The following items were deleted from the chart) 07:59 07:00 BP 161 / 100; Pulse 11bpm; Resp 18bpm; Pulse Ox 100% RA; nh2 nh2 08:48 07:59 BP 141 / 91; Pulse 108bpm; Resp 19bpm; Pulse Ox 100% 3 lpm Nasal Cannula; nh2 nh2 08:49 06:06 BP 155 / 98; Pulse 112bpm; Resp 16bpm; Pulse Ox 99% 3 lpm Nasal Cannula; kd3 nh2 08:49 07:00 BP 161 / 100; Pulse 110bpm; Resp 18bpm; Pulse Ox 100% 3 lpm Nasal Cannula; nh2 nh2
[2025-03-20 05:46] LABS: PT Prothrombin Time 13.5 SECONDS (10-13.0); Protime INR 1.2
[2025-03-20] MEDS ORDERED: ACETAMINOPHEN 325 MG TABLET PO PRN (05:52)
[2025-03-20] MEDS ORDERED: ONDANSETRON 4 MG/2 ML VIAL IV PRN (05:52)
--- NOTE | 2025-03-20 05:52 | P.HP ---
Patient History Date of Service: 03/20/25 History of Present Illness: 39-year-old female with history of ESRD on HD, hypertension, hyperlipidemia, anemia of chronic disease, chronic diastolic heart failure presents emergency department with chief complaint of shortness of breath. She missed dialysis and overnight became quite dyspneic also was having some pain in her chest on arrival. Patient significantly hypertensive she takes a clonidine patch at home that she did not have on for the last few days. Patient was evaluated here in the emergency department her labs are significant for redemonstration of her ESRD with high potassium showed suspected pulmonary edema. Patient admitted to hospital for acute hemodialysis Allergies No Known Allergies Allergy (Verified 11/19/19 21:40) Home medications list reviewed: Yes Home Medications: Sevelamer Carbonate [Renvela*] 800 mg PO TIDWM #90 tab 05/12/22 Furosemide [Lasix] 80 mg PO BID 05/29/23 Hydrocodone 5/APAP 325 [[place] 5/325*] 1 tab PO Q6H PRN #10 tab 01/17/24 Butalb/Acetaminophen/Caffeine [Fioricet 50-300-40 mg Capsule] 1 cap PO Q6HR PRN 05/14/24 Clonidine Patch [Catapres-Tts 1*] 0.1 mg TD DAILY 05/14/24 NIFEdipine [Nifedipine ER] 90 mg PO DAILY #30 tab 05/16/24 carvediloL [Carvedilol] 12.5 mg PO BID #60 tab 05/16/24 lisinopriL [Lisinopril] 40 mg PO DAILY #30 tab 05/16/24 Ondansetron [Zofran (Odt)*] 4 mg PO Q6H PRN #30 tab 11/06/24 levoFLOXacin [Levofloxacin] 250 mg PO Q48H #4 tab 02/05/25 - Past Medical/Surgical History Diabetic: No Past Medical History: Reviewed- Non-Contributory -: HTN -: ESRD on HD (Dr. Monge) M/W/F -: Asthma -: Anemia Past Surgical History: Reviewed- Non-Contributory -: C Section -: Tubal Ligation Psychosocial/ Personal History: Patient lives at home with her 4 children. - Family History Father -: Hypertension Mother -: Heart disease - Social History Smoking Status: Never smoker Alcohol use: No CD- Drugs: No Caffeine use: No Review of Systems 10-point ROS is otherwise unremarkable Physical Examination - Vital Signs Temperature: 98.4 F Blood Pressure: 168/88 Pulse: 76 Respirations: 18 Pulse Ox (%): 94 - Physical Exam General: Alert, In no apparent distress, Oriented x3 HEENT: Atraumatic, Normocephalic Neck: Supple Respiratory: Diminished, Crackles/rales Cardiovascular: Regular rate/rhythm, Normal S1 S2 Capillary refill: <2 Seconds Gastrointestinal: Soft and benign, W/out hepatosplenomegaly Musculoskeletal: No clubbing, No swelling Integumentary: No rashes Neurological: Other (Alert awake nonfocal) Lymphatics: No axilla or inguinal lymphadenopathy - Studies Laboratory Data (last 24 hrs) 03/20/25 03/20/25 03/20/25 05:00 02:26 02:26 WBC 8.80 Hgb 8.3 L Hct 24.7 L Plt Count 362 PT 13.5 H INR 1.20 Sodium Potassium BUN Creatinine Glucose Magnesium Total Bilirubin AST ALT Alkaline Phosphatase Lipase 32 03/20/25 02:26 WBC Hgb Hct Plt Count PT INR Sodium 132 L Potassium 6.9 H* BUN 40 H Creatinine 7.54 H Glucose 138 H Magnesium 2.2 Total Bilirubin 0.4 AST 57 H ALT 73 H Alkaline Phosphatase 189 H Lipase Assessment and Plan - Plan ESRD on HD MWF with pulmonary edema/overload Acute on chronic diastolic congestive heart failure Hyperkalemia Hypertension Hyperlipidemia anemia of chronic disease Plan: ESRD on HD MWF with pulmonary edema/overload Acute on chronic diastolic congestive heart failure Chest pain Nephrology consulted/notified of need for HD Antihypercalcemic measures Monitor closely under telemetry Pain control Renal parameters monitor Electrolytes monitor and replace accordingly Hypertension Antihypertensives titrated Continue home medications and titrate as needed Patient's home dose clonidine patch placed this morning Hyperlipidemia Continue statin Anemia of chronic disease Monitor H&H closely No overt bleeding at this time GI/DVT prophylaxis Advanced directive full code Discharge Plan: Home Plan to discharge in: 48 Hours - Advance Directives Does patient have a Living Will: No Does patient have a Durable POA for Healthcare: No - Code Status/Comfort Care Code Status: Full Code Time Spent Managing Pts Care (In Minutes): 48
[2025-03-20] MEDS: FUROSEMIDE 40 MG/4 ML VIAL IV SCH ×2 (05:55→09:31)
[2025-03-20] MEDS: SODIUM ZIRCONIUM CYCLOSILICATE 10 GM/PKT PO ONE ×3 (05:55→09:32)
--- NOTE | 2025-03-20 05:58 | RAD REPORT ---
EXAM: XR Chest, 1 View CLINICAL HISTORY: CHEST PAIN TECHNIQUE: Frontal view of the chest. COMPARISON: No relevant prior studies available. FINDINGS: Lungs: Mild central pulmonary vascular and interstitial prominence and hazy bilateral perihilar opa cities. Pleural space: Unremarkable. No pneumothorax. Heart: The cardiac silhouette is mildly enlarged, in part accentuated by portable technique. Mediastinum: Unremarkable. Normal mediastinal contour. Bones/joints: Remote distal right clavicular fracture. No acute fracture. IMPRESSION: Findings which may be related to mild pulmonary congestion. Superimposed infection not excluded. Electronically signed by: Eloina Sow MD 03/20/2025 03:55 AM CDT RP Due to temporary technical issues with the PACS/Quick2LAUNCH reporting system, reports are being radha d by the in-house radiologist without review as a courtesy to ensure prompt reporting the interpreting radiologist is fully responsible for the content of the report. Transcribed Date/Time: 03/20/2025 5:58 AM
[2025-03-20] MEDS: HEPARIN 5000 UNIT/ML 1 ML VIAL SQ SCH (09:00)
[2025-03-20] MEDS: HYDRALAZINE HCL 20 MG/ML VIAL IV PRN (09:48)
--- NOTE | 2025-03-20 10:20 | P.CNS ---
Date of Consult: 03/20/25 Reason for Consult: ESRD Requesting Physician: Wang Chance Chief Complaint: Dyspnea History of Present Illness: 39-year-old female with history of ESRD on HD, hypertension, hyperlipidemia, anemia of chronic disease, chronic diastolic heart failure presents emergency department with chief complaint of shortness of breath. She missed dialysis and overnight became quite dyspneic also was having some pain in her chest on [place]. Patient significantly hypertensive she takes a clonidine patch at home that she did not have on for the last few days. Patient was evaluated here in the emergency department her labs are significant for redemonstration of her ESRD with high potassium showed suspected pulmonary edema. Patient admitted to hospital for acute hemodialysis XR Chest, 1 View CLINICAL HISTORY: CHEST PAIN TECHNIQUE: Frontal view of the chest. COMPARISON: No relevant prior studies available. FINDINGS: Lungs: Mild central pulmonary vascular and interstitial prominence and hazy bilateral perihilar opacities. Pleural space: Unremarkable. No pneumothorax. Heart: The cardiac silhouette is mildly enlarged, in part accentuated by portable technique. Mediastinum: Unremarkable. Normal mediastinal contour. Bones/joints: Remote distal right clavicular fracture. No acute fracture. IMPRESSION: Findings which may be related to mild pulmonary congestion. Superimposed infection not excluded. Allergies No Known Allergies Allergy (Verified 11/19/19 21:40) Home medications list reviewed: Yes Home Medications: Sevelamer Carbonate [Renvela*] 800 mg PO TIDWM #90 tab 05/12/22 Furosemide [Lasix] 80 mg PO BID 05/29/23 Hydrocodone 5/APAP 325 [[place] 5/325*] 1 tab PO Q6H PRN #10 tab 01/17/24 Butalb/Acetaminophen/Caffeine [Fioricet 50-300-40 mg Capsule] 1 cap PO Q6HR PRN 05/14/24 Clonidine Patch [Catapres-Tts 1*] 0.1 mg TD DAILY 05/14/24 NIFEdipine [Nifedipine ER] 90 mg PO DAILY #30 tab 05/16/24 carvediloL [Carvedilol] 12.5 mg PO BID #60 tab 05/16/24 lisinopriL [Lisinopril] 40 mg PO DAILY #30 tab 05/16/24 Ondansetron [Zofran (Odt)*] 4 mg PO Q6H PRN #30 tab 11/06/24 levoFLOXacin [Levofloxacin] 250 mg PO Q48H #4 tab 02/05/25 - Past Medical/Surgical History Diabetic: No -: HTN -: ESRD on HD (Dr. Monge) M/W/F -: Asthma -: Anemia -: C Section -: Tubal Ligation Psychosocial/ Personal History: Patient lives at home with her 4 children. - Family History Father Medical History: Hypertension Mother Medical History: Heart disease - Social History Smoking Status: Unknown if ever smoked Alcohol use: No CD- Drugs: No Caffeine use: No Place of Residence: Home Review of Systems 10-point ROS is otherwise unremarkable Respiratory: SOB with Excertion Physical Examination Temp Pulse Resp BP Pulse Ox 98.3 F 104 H 28 H 154/94 H 94 03/20/25 08:54 03/20/25 09:10 03/20/25 09:10 03/20/25 09:10 03/20/25 05:52 General: In no apparent distress, Oriented x3, Cooperative HEENT: Atraumatic Neck: Supple Respiratory: Diminished Cardiovascular: Regular rate/rhythm, Edema Gastrointestinal: Soft and benign, Non-distended Musculoskeletal: No clubbing, No contractures Integumentary: No rashes, No cyanosis Neurological: Normal speech Laboratory Data (last 24 hrs) 03/20/25 03/20/25 03/20/25 05:00 02:26 02:26 WBC 8.80 Hgb 8.3 L Hct 24.7 L Plt Count 362 PT 13.5 H INR 1.20 Sodium Potassium BUN Creatinine Glucose Magnesium Total Bilirubin AST ALT Alkaline Phosphatase Lipase 32 03/20/25 02:26 WBC Hgb Hct Plt Count PT INR Sodium 132 L Potassium 6.9 H* BUN 40 H Creatinine 7.54 H Glucose 138 H Magnesium 2.2 Total Bilirubin 0.4 AST 57 H ALT 73 H Alkaline Phosphatase 189 H Lipase Imagings Data: EXAM: XR Chest, 1 View CLINICAL HISTORY: CHEST PAIN TECHNIQUE: Frontal view of the chest. COMPARISON: No relevant prior studies available. FINDINGS: Lungs: Mild central pulmonary vascular and interstitial prominence and hazy bilateral perihilar opacities. Pleural space: Unremarkable. No pneumothorax. Heart: The cardiac silhouette is mildly enlarged, in part accentuated by portable technique. Mediastinum: Unremarkable. Normal mediastinal contour. Bones/joints: Remote distal right clavicular fracture. No acute fracture. IMPRESSION: Findings which may be related to mild pulmonary congestion. Superimposed infection not excluded. Conclusions/Impression: ESRD Hyponatremia Hyperkalemia -Acute HD ordered -Lokelma prn HTN with CKD/ CHF -Start Coreg 25mg BID -Hydralazine prn Diastolic CHF, A/C Moderate Pulmonary HTN/ MR -Low sodium diet -UF with HD Elevated AST/ ALT -Monitor LFT Anemia in CKD -Retacrit qHD CKD MBD Secondary HyperParathyroidism -Start Calcitriol -Start Renvela Hospitalist and ER notes reviewed Thank you kindly for the consultation
[2025-03-20] MEDS ORDERED: MANNITOL 25% 12.5 GM/50 ML VIAL IV PRN (10:22)
[2025-03-20] MEDS ORDERED: NA CHLORIDE 0.9% 1,000 ML IV PRN (10:22)
[2025-03-20] MEDS ORDERED: EPOETIN ALFA 10,000 UNIT/ML VIAL IV SCH (10:30)
[2025-03-20] MEDS ORDERED: ALBUMIN HUMAN 25% 50 ML IV SCH (11:00)
[2025-03-20] MEDS: ACETAMIN/CAFFEINE/BUTALB TAB PO ONE (11:18)
[2025-03-20] MEDS: FENTANYL CITR 100 MCG/2 ML IV ONE (11:18)
[2025-03-20 13:40] VITALS: BMI 29.4
[2025-03-20] MEDS: EPOETIN ALFA 10,000 UNIT/ML VIAL IV SCH (13:45)
[2025-03-20] MEDS: HYDROMORPHONE HCL 0.5 MG/0.5 ML INJ IV ONE (19:15)
[2025-03-20] MEDS: HYDROCODONE/APAP 5/325 MG TAB PO PRN (21:31)
[2025-03-20] MEDS: DOCUSATE NA 100 MG CAP PO SCH (21:32)
[2025-03-21] MEDS: HYDROMORPHONE HCL 0.5 MG/0.5 ML INJ IV ONE (00:11)
[2025-03-21] MEDS: DRISDOL (VITAMIN D=ERGOCALCIFEROL) 50000 UNIT CAP PO SCH (08:48)
[2025-03-21] MEDS: CALCITROL 0.25 MCG CAP PO SCH (08:48)
[2025-03-21] MEDS: MULTIVITAMINS,THERAPEUT 1 TAB PO SCH (08:48)
[2025-03-21] MEDS: SEVELAMER CARBONATE 800 MG TABLET PO SCH (08:48)
[2025-03-21 09:25] LABS: Absolute Lymphocytes (CBC) 2.0 K/uL (0.7-4.9); Hematocrit 23.9 % (36.0-45.0); Hemoglobin 8.0 g/dL (12.0-15.0); MCH 29.8 pg (27.0-35.0); MCHC 33.4 g/dL (32.0-36.0); MCV 89.0 fL (80-100); MPV 7.4 fL (7.6-11.3); Nucleated RBC Absolute Count 0.0 (0-0); Nucleated Red Blood Cells % 0.0 % (0-0); RBC Red Blood Cell Count 2.69 M/uL (3.86-4.86); White Blood Count 9.80 thou/uL (4.3-10.9)
[2025-03-21 09:41] LABS: ALT/SGPT 54.0 U/L (13-56); AST/SGOT 34.0 U/L (15-37); Albumin 2.8 g/dL (3.4-5.0); Albumin/Globulin Ratio 0.6 (1.1-1.8); Alkaline Phosphatase 145.0 U/L (45-117); Anion Gap 13.4 mEq/L (5.0-15.0); BUN Blood Urea Nitrogen 35.0 mg/dL (7-18); Globulin 4.4 g/dL (2.3-3.5); Glucose Level 100.0 mg/dL (74-106); Potassium 5.4 mEq/L (3.5-5.1)
--- NOTE | 2025-03-21 11:17 | P.PN ---
Date of Service: 03/21/25 Vital Signs Temp Pulse Resp BP Pulse Ox 98.2 F 86 18 134/84 98 03/21/25 08:00 03/21/25 08:00 03/21/25 08:00 03/21/25 08:00 03/21/25 08:00 Medications Acetaminophen (Acetaminophen 325 Mg Tablet) 650 mg PO Q4HP PRN PRN Reason: Pain scale 2-4 (Mild) Hydrocodone Bitart/Acetaminophen (Hydrocodone/Apap 5/325 Mg Tab) 1 tab PO Q4H PRN PRN Reason: Pain scale 5-7 (Moderate) Last Admin: 03/21/25 08:47 Dose: 1 tab Calcitriol (Calcitrol 0.25 Mcg Cap) 0.5 mcg PO DAILY [facility] Last Admin: 03/21/25 08:48 Dose: 0.5 mcg Carvedilol (Carvedilol 25 Mg Tab) 25 mg PO BIDWM [facility] Last Admin: 03/21/25 08:48 Dose: 25 mg Docusate Sodium (Docusate Na 100 Mg Cap) 100 mg PO BID [facility] Last Admin: 03/21/25 08:48 Dose: 100 mg Epoetin Rubin (Epoetin Rubin 10,000 Unit/Ml Vial) 10,000 unit IV EVERY HD [facility] Last Admin: 03/20/25 13:45 Dose: 10,000 unit Ergocalciferol (Drisdol (Vitamin D=Ergocalciferol) 76194 Unit Cap) 50,000 unit PO Q7D@0900 [facility] Last Admin: 03/21/25 08:48 Dose: 50,000 unit Furosemide (Furosemide 40 Mg/4 Ml Vial) 40 mg IV Q8HR [facility] Last Admin: 03/21/25 08:48 Dose: 40 mg Heparin Sodium (Porcine) (Heparin 5000 Unit/Ml 1 Ml Vial) 5,000 unit SQ Q12HR [facility] Last Admin: 03/21/25 08:46 Dose: Not Given Heparin Sodium (Porcine) (Heparin 1,000 Unit/Ml Vial) 3,000 unit IV EVERY HD PRN PRN Reason: Prevent HD System Clotting Hydralazine HCl (Hydralazine Hcl 20 Mg/Ml Vial) 10 mg IV Q4HP PRN PRN Reason: FOR SBP>160 OR DBP>100 [facility] Last Admin: 03/20/25 09:48 Dose: 10 mg Albumin Human (Albumin 25%) 50 mls @ 100 mls/hr IV EVERY HD [facility] Mannitol (Mannitol 25% 12.5 Gm/50 Ml Vial) 12.5 gm IV EVERY HD PRN PRN Reason: PRN FOR BP SUPPORT AT HD Ondansetron HCl (Ondansetron 4 Mg/2 Ml Vial) 4 mg IV Q6HP PRN PRN Reason: NAUSEA / VOMITING Sevelamer Carbonate (Sevelamer Carbonate 800 Mg Tablet) 1,600 mg PO TIDWM [facility] Last Admin: 03/21/25 08:48 Dose: 1,600 mg Vitamin B Complex/Vit C/Folic Acid (Multivitamins,Therapeut 1 Tab) 1 tab PO DAILY [facility] Last Admin: 03/21/25 08:48 Dose: 1 tab Microbiology Results 03/20/25 02:26 Blood - Blood Aerobic Blood Culture - Preliminary No growth in 24 hours. 03/20/25 02:26 Blood - Blood Anaerobic Blood Culture - Preliminary No growth in 24 hours. 03/20/25 02:16 Blood - Blood Aerobic Blood Culture - Preliminary No growth in 24 hours. 03/20/25 02:16 Blood - Blood Anaerobic Blood Culture - Preliminary No growth in 24 hours. Assessment/ Plan: Nephrology Progress Note Dyspnea much improved No Chest Pain No Acute Events Overnight Feeling better compared to yesterday. Vital Signs, Medications, Blood Work, and Imaging reviewed in the chart General: In no apparent distress, Oriented x3, Cooperative HEENT: Atraumatic Neck: Supple Respiratory: Diminished Cardiovascular: Regular rate/rhythm, Edema Gastrointestinal: Soft and benign, Non-distended Musculoskeletal: No clubbing, No contractures Integumentary: No rashes, No cyanosis Neurological: Normal speech Laboratory Data (last 24 hrs) 03/20/25 03/20/25 03/20/25 05:00 02:26 02:26 WBC 8.80 Hgb 8.3 L Hct 24.7 L Plt Count 362 PT 13.5 H INR 1.20 Sodium Potassium BUN Creatinine Glucose Magnesium Total Bilirubin AST ALT Alkaline Phosphatase Lipase 32 03/20/25 02:26 WBC Hgb Hct Plt Count PT INR Sodium 132 L Potassium 6.9 H* BUN 40 H Creatinine 7.54 H Glucose 138 H Magnesium 2.2 Total Bilirubin 0.4 AST 57 H ALT 73 H Alkaline Phosphatase 189 H Lipase Imagings Data: EXAM: XR Chest, 1 View CLINICAL HISTORY: CHEST PAIN TECHNIQUE: Frontal view of the chest. COMPARISON: No relevant prior studies available. FINDINGS: Lungs: Mild central pulmonary vascular and interstitial prominence and hazy bila teral perihilar opacities. Pleural space: Unremarkable. No pneumothorax. Heart: The cardiac silhouette is mildly enlarged, in part accentuated by portable technique. Mediastinum: Unremarkable. Normal mediastinal contour. Bones/joints: Remote distal right clavicular fracture. No acute fracture. IMPRESSION: Findings which may be related to mild pulmonary congestion. Superimposed infection not excluded. Conclusions/Impression: ESRD on HD MWF Hyponatremia Hyperkalemia -HD TIW HTN with CKD/ CHF -Continue Coreg 25mg BID -Hydralazine prn Diastolic CHF, A/C Moderate Pulmonary HTN/ MR -Low sodium diet -UF with HD Elevated AST/ ALT -Monitor LFT Anemia in CKD -Retacrit qHD CKD MBD Secondary HyperParathyroidism -Continue Calcitriol -Continue Renvela Hospitalist note reviewed Case reviewed with the hospitalist team
[2025-03-21 11:18] VITALS: O2SAT 98
[2025-03-21 12:04] VITALS: BP 116/68; TEMP 98.1
== END 2025-03-21 13:18 | disposition home or self-care (01) | DRG 640 ==
LOC: ER 01:52 → ERHOLD 05:52 → 2ND 08:43
PROVIDERS: ADMIT Family Medicine; ATTEND Hospitalist
PROC: 5A1D70Z Performance of Urinary Filtration, Intermittent, Less than 6 Hours Per Day (ICD-10-PCS; principal; 2025-03-20)
DX: E87.5 Hyperkalemia (principal); I50.33 Acute on chronic diastolic (congestive) heart failure; N18.6 End stage renal disease; I13.2 Hypertensive heart and chronic kidney disease with heart failure and with stage 5 chronic kidney disease, or end stage renal disease; N25.81 Secondary hyperparathyroidism of renal origin; E87.1 Hypo-osmolality and hyponatremia; D63.1 Anemia in chronic kidney disease; E78.5 Hyperlipidemia, unspecified; I27.20 Pulmonary hypertension, unspecified; J45.909 Unspecified asthma, uncomplicated; Z99.2 Dependence on renal dialysis; Z79.899 Other long term (current) drug therapy; Z79.02 Long term (current) use of antithrombotics/antiplatelets
CPT/HCPCS: 36415; 71045; 80048; 80053; 80076; 82947; 83605; 83690; 83735; 83880; 84484; 85025; 85610; 87040; 90935; 93005; 94760; 96365; 96366; 96375; 99285; J0360; J0612; J0885; J1171; J1644; J1815; J1938; J2405; J2765; J3010